=== PATIENT | male | born 1940 | race Two or more races ===

== ENCOUNTER 2019-06-13 19:34 | Emergency (ER) | payer MEDICARE, MEDICAID ==
[~2019-06-13] VITALS: Ht 172.7 cm; Wt 56.7 kg
[~2019-06-13 19:34] MED LIST: MULTIVITAMINS1 EAC2 PO; REVLIMID10 MG PO; TYLENOL500 MG PO; VITAMIN B-1100 MG PO
[2019-06-13 19:45] VITALS: BP 125/76
--- NOTE | 2019-06-13 20:01 | Emergency Room Report ---
History of Present Illness General Chief Complaint: Male Urogenital Problems Source: Medical Record, EMS (Corey Sherman MD) Present Illness HPI 79-year-old male presents ED for evaluation. Brought in by EMS for hematuria. Patient residing in prison facility. Hematuria noted today. Patient nonverbal at baseline. Nursing attempted irrigation of Howard catheter but patient continued to have hematuria. Patient showing no signs of distress. Unable to provide any additional history at this time. No other aggravating relieving factors. No other associated symptoms (Corey Sherman MD) Allergies: Coded Allergies: No Known Allergies (Unverified , 02/23/12) Patient History Past Medical History: DM, HTN Past Surgical History: none Pertinent Family History: none Social History: Denies: smoking, alcohol use, drug use Immunizations: UTD Reviewed Nursing Documentation: PMH: Agreed; PSxH: Agreed (Corey Sherman MD) Nursing Documentation-PMH Hx Cardiac Problems: No Hx Hypertension: Yes Hx Diabetes: Yes Hx Neurological Problems: No (Corey Sherman MD) Review of Systems All Other Systems: limited (Corey Sherman MD) Physical Exam Vital Signs Date Time Temp Pulse Resp B/P (MAP) Pulse Ox O2 Delivery O2 Flow Rate FiO2 06/13/19 19:32 97.5 75 18 125/76 (92) 97 Nasal Cannula 3.0 Sp02 EP Interpretation: reviewed, normal General Appearance: no apparent distress, other - nonverbal Head: normocephalic Eyes: bilateral eye normal inspection, bilateral eye PERRL ENT: hearing grossly normal, normal pharynx, no angioedema, normal voice Neck: full range of motion, supple/symm/no masses Respiratory: crackles Cardiovascular #1: regular rate, rhythm, no edema Gastrointestinal: normal bowel sounds, non tender, soft, non-distended, no guarding, no rebound, other - Gtube Rectal: deferred Genitourinary: no CVA tenderness, other - hematuria in howard catheter Musculoskeletal: other - contracted extremities Neurologic: other - nonverbal Psychiatric: other - nonverbal Skin: other - see nursing skin notes Lymphatic: normal inspection (Corey Sherman MD) Medical Decision Making Medicare Attestation The history of Dalton Almanzar has been reviewed and management options for him have been examined and discussed by Corey Sherman. I have personally examined and interviewed the patient. (Corey Sherman MD) Diagnostic Impression: Primary Impression: Hematuria Additional Impressions: Elevated LFTs Renal insufficiency UTI (urinary tract infection) ER Course I received a call from the laboratory that patient had growth of gram-positive cocci in clusters in both blood culture bottles, so I spoke to Dr. Martinez, patient's primary care doctor since patient is a resident at a prison facility, and he reported he would follow-up on it and likely send the patient in for admission. (KARINA PEREZ M.D) EKG Diagnostic Results Rate: normal Rhythm: NSR ST Segments: no acute changes ASA given to the pt in ED: No (Corey Sherman MD) Rhythm Strip Diag. Results EP Interpretation: yes Rhythm: NSR, no PVC's, no ectopy (Corey Sherman MD) Last Vital Signs Date Time Temp Pulse Resp B/P (MAP) Pulse Ox O2 Delivery O2 Flow Rate FiO2 06/13/19 19:32 97.5 75 18 125/76 (92) 97 Nasal Cannula 3.0 (Corey Sherman MD) Reevaluation Time: 22:04 Reevaluation Impression Assumed care of the patient from Dr. Sherman approximately 9:30 PM. Labs have now returned showing evidence of an acute urinary tract infection positive for nitrites, leukocyte esterase and blood. Howard was irrigated and is now only lightly pink and passed several clots. Irrigating well at this time. Labs show renal insufficiency, elevated LFTs but no white count. I discussed these results with the patient's primary care provider who recommended the patient be discharged home to his prison facility for outpatient treatment. I will prescribe Keflex for his urinary tract infection. Dr. Martinez will follow up with the patient on an outpatient basis. (Ron Arciniega MD) Disposition: XFER SNF Condition: Stable Scripts Cephalexin* (KEFLEX*) 500 Mg Capsule 500 MG ORAL EVERY 12 HOURS for 7 Days, #14 CAP 0 Refills Prov: Ron Arciniega MD 06/13/19 Corey Sherman MD Jun 13, 2019 20:01 Ron Arciniega MD Jun 13, 2019 22:05 KARINA PEREZ M.D Jun 15, 2019 11:51
[2019-06-13] MEDS ORDERED: COLACE100 MG ORAL (20:39)
[2019-06-13] MEDS ORDERED: KEPPRA750 MG ORAL (20:39)
[2019-06-13] MEDS ORDERED: FLEET ENEMA133 ML RECTAL (20:39)
[2019-06-13] MEDS ORDERED: BISACODYL5 MG ORAL (20:39)
[2019-06-13] MEDS ORDERED: MILK OF MA2400 MG/10 ORAL (20:39)
[2019-06-13] MEDS ORDERED: FAMOTIDINE20 MG ORAL (20:39)
[2019-06-13 20:43] LABS: ANION GAP 4 mmol/L (5-15); BLOOD UREA NITROGEN 69 mg/dL (7-18); CALCIUM 8.9 MG/DL (8.5-10.1); CARBON DIOXIDE 32 MMOL/L (21-32); CHLORIDE 106 MMOL/L (98-107); CREATININE 1.5 MG/DL (0.55-1.30); POTASSIUM 4.2 MMOL/L (3.5-5.1); SODIUM 142 MMOL/L (136-145)
[2019-06-13 20:51] LABS: BASOPHILS % (AUTO) 0.8 % (0.0-2.0); EOSINOPHILS % (AUTO) 6.6 % (0.0-3.0); HEMATOCRIT 31.1 % (42.0-52.0); HEMOGLOBIN 10.4 G/DL (14.2-18.0); MEAN CORPUSCULAR VOLUME 96 FL (80-99); MONOCYTES % (AUTO) 5.3 % (1.0-10.0); NEUTROPHILS % (AUTO) 70.3 % (45.0-75.0); PLATELET COUNT 127 K/UL (150-450); RED BLOOD COUNT 3.23 M/UL (4.70-6.10); RED CELL DISTRIBUTION WIDTH 16.1 % (11.6-14.8); WHITE BLOOD COUNT 5.4 K/UL (4.8-10.8)
[2019-06-13 20:52] LABS: APPEARANCE,URINE SLIGHTLY CLOUDY; BILIRUBIN, URINE NEGATIVE (NEGATIVE); GLUCOSE, URINE (UA) NEGATIVE (NEGATIVE); KETONES,URINE NEGATIVE (NEGATIVE); LEUKOCYTE ESTERASE ,URINE 2+ (NEGATIVE); NITRITE,URINE POSITIVE (NEGATIVE); PH,URINE 8 (4.5-8.0); PROTEIN,URINE 3+ (NEGATIVE); UROBILINOGEN,URINE 1 MG/DL (0.0-1.0)
[2019-06-13 20:53] LABS: COLOR,URINE BROWN
[2019-06-13 20:57] LABS: ALANINE AMINOTRANSFERASE 102 U/L (12-78); ALBUMIN 2.1 G/DL (3.4-5.0); ALBUMIN/GLOBULIN RATIO 0.3 (1.0-2.7); ALKALINE PHOSPHATASE 165 U/L (46-116); ASPARTATE AMINO TRANSFERASE 115 U/L (15-37); BILIRUBIN,TOTAL 0.3 MG/DL (0.2-1.0)
[2019-06-13 20:58] LABS: INR 1.2 (0.9-1.1)
[2019-06-13] MEDS ORDERED: cefTRIAXone 1 GM in NS 55 ML IVPB ONE (21:30)
[2019-06-13] MEDS ORDERED: CEPHALEXIN500 MG ORAL (22:08)
[2019-06-14] VITALS: BP 125/76
--- NOTE | 2019-06-14 15:11 | Diagnostic Imaging Report ---
Indication: Cough Technique: One view of the chest Comparison: 02/26/2012 Findings: The heart is enlarged. There is mild interstitial prominence and patchy airspace opacities bilaterally. The pleural spaces are grossly clear. Impression: Cardiomegaly Bilateral borderline interstitial congestion and patchy airspace opacities
--- NOTE | 2019-06-21 09:37 | Cardiology Report ---
APPROVED REPORT EKG Measurement Heart [id number] <Conclusion> Normal sinus rhythm Left axis deviation Low voltage QRS Incomplete right bundle branch block Nonspecific T wave abnormality Abnormal ECG
== END 2019-06-14 ==
LOC: EDBD 19:34 → EMR 19:50 → CANBEDREQ 22:02 → EMR 06-14
DX: R31.9 Hematuria, unspecified (principal); R79.89 Other specified abnormal findings of blood chemistry; N28.9 Disorder of kidney and ureter, unspecified; N39.0 Urinary tract infection, site not specified; E11.9 Type 2 diabetes mellitus without complications; I10 Essential (primary) hypertension
CPT/HCPCS: 36415; 71045; 80053; 81003; 83605; 83880; 85025; 85610; 85730; 86850; 86900; 86901; 87040; 87086; 87181; 93005; 96361; 96365; 99284; J0696; J7030

== ENCOUNTER 2019-11-09 06:23 | Inpatient (IN) | payer MEDICARE, MEDICAID ==
[2019-11-09] VITALS (43 sets, daily range): BP systolic 61–155; BP diastolic 20–88
[~2019-11-09] VITALS: Ht 162.6 cm; Wt 57.2 kg
[~2019-11-09 06:23] MED LIST changes: +ACETAMINOP160 MG/55 GT; +AMLODIPINE BESYL5 MG GT; +BISACODYL5 MG ORAL; +CEPHALEXIN500 MG ORAL; +COLACE100 MG ORAL; +CRANBERRY425 MG GT; +DOCUSATE SODIU100 MG GT; +FAMOTIDINE20 MG ORAL; +FLEET ENEMA133 ML RECTAL; +JUVEN PACKET1 EAC1 GT; +KEPPRA500 MG GT; +KEPPRA750 MG ORAL; +LEVOTHYROXINE125 MCG GT; +MILK OF MA2400 MG/10 ORAL; +MULTI-DELYN237 ML GT; +NOVOLOG100 UNIT/4 SQ; +VITAMIN C500 M1 GT
--- NOTE | 2019-11-09 06:25 | NUR ---
ED Nurse Note: PT NELLYA RA 28 FROM [facility] FOR ORAL TRAUMA. PER EMS, PT WAS ACTIVELY BLEEDING FROM MOUTH THAT WAS SUCTION EN ROUTE TO ED WITH UNKNOWN CC QUANTITY. PT IS TRACH/VENTED WITH HX SZ. TRAUMA TO TONGUE IS UNK IF CAUSED BY SZ ACTIVTY. RT AT BEDSIDE, ERMD AT BEDSIDE. PT IS GTUBE DEPENDENT, FLUSHED AND PATENT.
[2019-11-09] MEDS ORDERED: LORazepam Inj 2mg/ml 1ml IV ONE (06:30)
--- NOTE | 2019-11-09 06:30 | NUR ---
ED Nurse Note: REDNESS NOTED ON MID SACRAL REGION. NO PRESSURE INJURIES NOTED.
--- NOTE | 2019-11-09 06:38 | Emergency Room Report ---
History of Present Illness General Chief Complaint: General Complaint Present Illness HPI Disclaimer: Please note that this report is being documented using DRAGON technology. This can lead to erroneous entry secondary to incorrect interpretation by the dictating instrument. HPI: 79-year-old male history of tracheostomy dependence, bedbound, ventilator dependent, neck altered mental status, seizures and CVA presented for possible oral trauma. Patient apparently grinds his teeth and was noted to have some blood coming from the mouth. EMS was called. Patient is nonverbal and uncooperative on exam and unable to give any further history. Primary care doctor is Dr. Salcedo. It does not appear patient takes any blood thinners at this time. Allergies: Coded Allergies: No Known Allergies (Unverified , 02/23/12) COVID-19 Screening Contact w/high risk pt: No Recent Travel to affected area: No Experienced COVID-19 symptoms?: No COVID-19 symptoms experienced: Fever (T>100.4F or >38C), Shortness of Breath, Cough Patient History Reviewed Nursing Documentation: PMH: Agreed; PSxH: Agreed Nursing Documentation-PMH Hx Cardiac Problems: Yes - A-fib, CHF, sepsis Hx Diabetes: Yes Hx Cancer: No Hx Gastrointestinal Problems: Yes - G-tube, GERD, dysphagia Hx Neurological Problems: Yes - Muscle weakness Hx Cerebrovascular Accident: Yes Hx Seizures: Yes Review of Systems All Other Systems: limited - Due to baseline altered mental status Physical Exam Vital Signs Date Time Temp Pulse Resp B/P (MAP) Pulse Ox O2 Delivery O2 Flow Rate FiO2 11/09/19 06:20 110 18 102/70 (81) 99 Mechanical Ventilator Sp02 EP Interpretation: reviewed, normal General Appearance: no apparent distress, Chronically Ill Head: normocephalic, atraumatic Eyes: bilateral eye PERRL, bilateral eye EOMI ENT: hearing grossly normal, other - Blood clots noted in the mouth, 1 cm laceration noted to the tip of the tongue, with active bleeding, poor dentition with dental caries noted. Neck: full range of motion, supple Respiratory: lungs clear, no wheezing, chest symmetrical - Coarse breath sounds noted bilaterally Cardiovascular #1: normal peripheral pulses, no murmur, tachycardia Gastrointestinal: non tender, soft, no guarding, other - Gastrostomy tube present Musculoskeletal: other - Extremities contracted Neurologic: alert, other - Nonverbal at baseline, withdraws to pain Skin: normal color, warm/dry Procedures Critical Care Time Critical Care Time Critical care is made on this patient due to presentation with concern for sepsis requiring my acute intervention. Critical care time is 38 minutes and excludes procedures Laceration/Wound Repair Laceration/Wound Repair : Consent: Emergent Wound Location: other - Tongue Anesthesia: 1% Lidocaine Wound Repaired With: sutures Suture Size/Type: 4:0 Patient Tolerated: Well Complications: None Progress This was a 1 cm laceration to the tongue tip Central Line Central Line : Consent: Emergent Central Line Lumen: triple Maximal Sterile Barrier Tech: yes cap, yes mask, yes sterile gown, yes sterile gloves, yes large sterile sheet, yes hand hygiene, yes chlorhexidine prep Central Line Postion: internal jugular (L) Anesthesia: local cc's of anesthesia: 3 Complications: none Central Line Post Position: sutured, good blood return, position confirmed w / CXR Attempts: One Patient Tolerated: Well Complications: None Medical Decision Making Diagnostic Impression: Primary Impression: Sepsis Additional Impressions: Tongue laceration Chronic respiratory failure Acute on chronic anemia ER Course MDM: Patient presented for blood noted in the mouth and oral trauma. Initially my differential included dental trauma, tongue laceration, other oral trauma. I did send basic laboratory studies and patient was noted to have leukocytosis of 35,000. Last month for pneumonia. Chest x-ray today did demonstrate persistent left middle lobe infiltrate. Rectal temperature was 100.2. Tongue laceration was repaired by me. Hemoglobin 7.2, patient's baseline hemoglobin ranged from 7-9. Broad-spectrum antibiotics were given. IV fluids were given. Due to patient's presentation with leukocytosis, anemia, concern for pneumonia will require admission to the hospital. Patient admitted under his primary care physician. I did send virus testing as [facility] with multiple risk factors for coronavirus. Laboratory Tests Test 11/09/19 06:30 11/09/19 06:34 Lactic Acid Level 0.90 mmol/L (0.4-2.0) White Blood Count 34.9 K/UL (4.8-10.8) *H Red Blood Count 2.27 M/UL (4.70-6.10) L Hemoglobin 7.2 G/DL (14.2-18.0) L Hematocrit 21.1 % (42.0-52.0) L Mean Corpuscular Volume 93 FL (80-99) Mean Corpuscular Hemoglobin 31.8 PG (27.0-31.0) H Mean Corpuscular Hemoglobin Concent 34.4 G/DL (32.0-36.0) Red Cell Distribution Width 14.0 % (11.6-14.8) Platelet Count 350 K/UL (150-450) Mean Platelet Volume 5.1 FL (6.5-10.1) L Neutrophils (%) (Auto) % (45.0-75.0) Lymphocytes (%) (Auto) % (20.0-45.0) Monocytes (%) (Auto) % (1.0-10.0) Eosinophils (%) (Auto) % (0.0-3.0) Basophils (%) (Auto) % (0.0-2.0) Differential Total Cells Counted 100 Neutrophils % (Manual) 95 % (45-75) H Lymphocytes % (Manual) 2 % (20-45) L Monocytes % (Manual) 2 % (1-10) Eosinophils % (Manual) 1 % (0-3) Basophils % (Manual) 0 % (0-2) Band Neutrophils 0 % (0-8) Platelet Estimate Adequate Platelet Morphology Normal Red Blood Cell Morphology Normal Prothrombin Time 12.1 SEC (9.30-11.50) H Prothrombin Time INR 1.1 (0.9-1.1) Activated Partial Thromboplast Time 33 SEC (23-33) Sodium Level 143 MMOL/L (136-145) Potassium Level 5.1 MMOL/L (3.5-5.1) Chloride Level 109 MMOL/L (98-107) H Carbon Dioxide Level 23 MMOL/L (21-32) Anion Gap 11 mmol/L (5-15) Blood Urea Nitrogen 128 mg/dL (7-18) H Creatinine 3.0 MG/DL (0.55-1.30) H Estimated Glomerular Filtration Rate 20.4 mL/min (>60) Glucose Level 138 MG/DL (74-106) H Calcium Level 8.6 MG/DL (8.5-10.1) Total Bilirubin 0.2 MG/DL (0.2-1.0) Aspartate Amino Transferase (AST) 26 U/L (15-37) Alanine Aminotransferase (ALT) 26 U/L (12-78) Alkaline Phosphatase 90 U/L (46-116) Total Protein 8.2 G/DL (6.4-8.2) Albumin 1.6 G/DL (3.4-5.0) L Globulin 6.6 g/dL Albumin/Globulin Ratio 0.2 (1.0-2.7) L Rhythm Strip Diag. Results EP Interpretation: yes Rate: 95 Rhythm: NSR, no ectopy Chest X-Ray Diagnostic Results Chest X-Ray Diagnostic Results : Chest X-Ray Ordered: Yes # of Views/Limited/Complete: 1 View Indication: Shortness of Breath Interpretation: no pneumothorax, other - Left middle lobe infiltrate Impression: Other - Left middle lobe infiltrate Electronically Signed by: Brett Perez MD Last Vital Signs Date Time Temp Pulse Resp B/P (MAP) Pulse Ox O2 Delivery O2 Flow Rate FiO2 11/09/19 06:20 110 18 102/70 (81) 99 Mechanical Ventilator Status: improved Disposition: ADMITTED INPATIENT Condition: Critical Brett Perez M.D. November 09, 2019 06:38
--- NOTE | 2019-11-09 06:40 | NUR ---
ED Nurse Note: DR ABBASI PERFORMING TONGUE SUTURE AT BEDSIDE. RT ALSO AT BEDSIDE FOR SUCTIONING AND VENT SETTING
--- NOTE | 2019-11-09 06:45 | NUR ---
ED Nurse Note: BLOOD COLLECTED AND SENT TO LAB. UNABLE TO OBTAIN URINE AT THIS TIME
[2019-11-09] MEDS ORDERED: Acetaminophen 650mg/20.3ml ONE (06:54)
[2019-11-09] MEDS ORDERED: Acetaminophen 650mg/20.3ml NG ONE (07:00)
--- NOTE | 2019-11-09 07:00 | NUR ---
ED Nurse Note: XR AT BEDSIDE
[2019-11-09 07:05] LABS: ANION GAP 11 mmol/L (5-15); BLOOD UREA NITROGEN 128 mg/dL (7-18); CALCIUM 8.6 MG/DL (8.5-10.1); CARBON DIOXIDE 23 MMOL/L (21-32); CHLORIDE 109 MMOL/L (98-107); POTASSIUM 5.1 MMOL/L (3.5-5.1); SODIUM 143 MMOL/L (136-145)
--- NOTE | 2019-11-09 07:05 | NUR ---
ED Nurse Note: GAVE REPORT TO YOSELIN OLSON RN
[2019-11-09 07:09] LABS: ALANINE AMINOTRANSFERASE 26 U/L (12-78); ALBUMIN 1.6 G/DL (3.4-5.0); ALBUMIN/GLOBULIN RATIO 0.2 (1.0-2.7); ALKALINE PHOSPHATASE 90 U/L (46-116); ASPARTATE AMINO TRANSFERASE 26 U/L (15-37); BILIRUBIN,TOTAL 0.2 MG/DL (0.2-1.0)
[2019-11-09 07:15] LABS: HEMATOCRIT 21.1 % (42.0-52.0); HEMOGLOBIN 7.2 G/DL (14.2-18.0); MEAN CORPUSCULAR VOLUME 93 FL (80-99); PLATELET COUNT 350 K/UL (150-450); RED BLOOD COUNT 2.27 M/UL (4.70-6.10)
[2019-11-09 07:16] LABS: INR 1.1 (0.9-1.1)
[2019-11-09 07:19] LABS: WHITE BLOOD COUNT 34.9 K/UL (4.8-10.8)
--- NOTE | 2019-11-09 07:27 | NUR ---
ED Nurse Note: Received verbal order for covid swabs from Dr. Perez.
[2019-11-09] MEDS ORDERED: Vancomycin 1 GM in NS 275 ML IVPB ONE (07:30)
[2019-11-09] MEDS ORDERED: Lidocaine 1% Plain 30 ml INJ ONE (07:30)
[2019-11-09] MEDS ORDERED: Piperacillin/Tazobactam 3.375 GM in NS 110 ML IVPB ONE (07:30)
--- NOTE | 2019-11-09 07:37 | Diagnostic Imaging Report ---
Indication: Shortness of breath Technique: One view of the chest Comparison: 10/17/2019 Findings: Again demonstrated is left perihilar consolidation, appearing less severe than on the prior study. Peripheral hazy consolidation on the right is also somewhat less extensive than on the previous exam. Tracheostomy again demonstrated Impression: Bilateral infiltrates, left greater than right. Similar in distribution but less severe than on prior study of 10/17/2019. Likely represent pneumonia
--- NOTE | 2019-11-09 07:52 | NUR ---
ED Nurse Note: Margonurse, there's no polst made
--- NOTE | 2019-11-09 07:57 | NUR ---
RESPIRATORY NOTE: pt brought in to ER and set up on vent at 0620. pt is vent dependent with trach size cuffed portex [address] per EMS vent settings given were AC/VC 18 450 PEEP+8 and set on fio2 100%. sxn'd pt orally with copious amounts of thick blood clots. ER MD and RN aware of findings. tracheal sxn with small to moderate amount of thick blood-tinged secretions. will monitor for the day.
--- NOTE | 2019-11-09 08:30 | NUR ---
ED Nurse Note: Unable to obtain urine as of now; condom cath in placed.
--- NOTE | 2019-11-09 09:15 | NUR ---
ED Nurse Note: Radiology techs at bedside.
--- NOTE | 2019-11-09 09:37 | NUR ---
ED Nurse Note: Dr. Hair at bedside.
--- NOTE | 2019-11-09 10:15 | NUR ---
ED Nurse Note: Per ERMD, central line and vasopressors not needed right now. Latest BP: 85/53 on RT calf; fluids running on both RT and LT upper arm IV site, intact and patent. Report for transfer to ICU was given to Zoraida BLUNT, pt will be under the care of Dr. Martinez. Pt was transferred to ICU on stable condition.
[2019-11-09] MEDS ORDERED: Hydroxychloroquine Fact Sheet MISC ONE (11:00)
[2019-11-09] MEDS ORDERED: Lidocaine 1% 10mg/ml/Epi 0.005mg/ml 30ml vial INJ ONE (11:22)
--- NOTE | 2019-11-09 11:45 | NUR ---
NURSE NOTES: Upon arrival from the ER, Pt's B/P was 84/23. ER doc called to put in central line in order to start Levophed. Lt IJ TLC placed at this time. Dressing clean, dry, and intact. No excess bleeding noted. Pt tolerated well. Pharmacy called for Levophed bag. however, telegraphic typewriter mechanic was told it is not ready.
--- NOTE | 2019-11-09 12:15 | NUR ---
NURSE NOTES: Sputum collected for culture. Levophed running at 10mcg/min
[2019-11-09] MEDS ORDERED: Vancomycin 1.25gm/NS Premix IVPB ONE (13:00)
--- NOTE | 2019-11-09 13:40 | NUR ---
NURSE NOTES: Dr Gong at bedside assessing pt. Updated him on pt's current condition. New orders acknowledged. Pt is more stable on the Levophed at this time.
--- NOTE | 2019-11-09 13:51 | NUR ---
CASE MANAGEMENT: REVIEW 79 YEAR OLD MALE BIBA [facility] CC: SOB . BLEEDING FROM THE MOUTH AFTER ORAL SUCTIONING . TRACH DEPENDENT SI: SEPSIS . TONGUE LACERATION . ANEMIA T 100.5 HR 118 RR 33 BP 61/52 SAT 100% MECH VENT FIO2 100 WBC 34.9 H/H 7.2/21.1 BUN 128 CR 3.0 IS: VANCOMYCIN IV X1 NS IVF BOLUS X1 ATIVAN IV X1 ZOSYN IV X1 PATIENT ADMITTED TO ICU 11/09/2019 DCP: PATIENT IS FROM [facility]
[2019-11-09] MEDS: Piperacillin/Tazobactam 2.25 GM in D5W 55 ML IVPB SCH ×2 (14:02→21:32)
--- NOTE | 2019-11-09 15:00 | NUR ---
NURSE NOTES: FiO2 decreased to 50% at this time. Pt O2Sat 100%
--- NOTE | 2019-11-09 16:14 | Consultation ---
DATE OF CONSULTATION: 11/09/2019 PULMONARY CONSULTATION CONSULTING PHYSICIAN: Mansoor Martinez MD. REASON FOR CONSULTATION: Respiratory failure. REASON FOR ADMISSION: Sepsis, oral bleeding, profound leukocytosis, acute on chronic renal failure. HISTORY OF PRESENT ILLNESS: This is a 79-year-old male with multiple medical problems, noted to have significant oral bleeding, transferred by 911. Patient with noted significant leukocytosis, anemia, renal failure acute on chronic, severe protein-calorie malnutrition, and now requires admission. Patient noted to be tachycardic and hypertensive in the emergency room, awaiting an ICU bed. Patient's care discussed and reviewed. Patient given antibiotics. COVID swab was placed. Patient was given vancomycin and Zosyn for now. IV hydration given as well. Patient is critical at present, unable to give much in the way of history. Patient is a long-term patient. Patient is chronically bed-bound, contracted, ventilator dependent. Patient has multitude of medical problems and has had prior admissions. PAST MEDICAL HISTORY: Notable for prior history of renal failure, respiratory failure chronic, prior history of pneumonia, pericardial effusion, history of hypothyroidism, history of diabetes, seizure disorder, severe protein-calorie malnutrition, tracheostomy, G-tube, anemia. MEDICATIONS: Reviewed. ALLERGIES: Reviewed. SOCIAL HISTORY: Patient is a long-term patient as mentioned, nonverbal, bedbound. REVIEW OF SYSTEMS: Unobtainable. FAMILY HISTORY: Unobtainable. PHYSICAL EXAMINATION: GENERAL: Ill-appearing male. VITAL SIGNS: Heart rate 118, temperature 100.5, respiratory rate 33, blood pressure 87/68, saturation 99%. HEENT: Negative. NECK: Supple. Tracheostomy midline. LUNGS: With coarse breath sounds. Moderate air entry. CARDIAC: Tachycardic without murmurs. ABDOMEN: Soft. G-tube in place. No distention. EXTREMITIES: Contracted. Reduced skin turgor. NEUROLOGICAL: Poorly responsive, in pain. SKIN: Noted with wounds reviewed. LABORATORY DATA: Reviewed. Notable for albumin 1.6, BUN 128, creatinine 3. Patient's white cell count is 34.9, hemoglobin 7.2, platelets of 350. INR within normal. Chest x-ray noted and reviewed notable for tracheostomy in place, bilateral infiltrates. IMPRESSION: Leukocytosis, sepsis, pneumonia, possible COVID, respiratory failure, profound anemia, acute on chronic renal failure, multiple contractures and wounds, severe protein-calorie malnutrition. RECOMMENDATION: ID to follow. Empiric antibiotics. IV hydration. Renal to follow. Ventilatory support. Suction. Sputum culture and blood cultures. Ventilatory management and ICU care required. Pressors if needed. Monitor closely for further changes. Avoid anticoagulation and anti-platelet agents at present. Monitor thyroid functions and monitor in the critical care setting. Mansoor Martinez M.D. DR: COREY JOB#: [id number] CC:
--- NOTE | 2019-11-09 16:29 | Consultation ---
DATE OF CONSULTATION: 11/09/2019 INFECTIOUS DISEASES CONSULTATION CONSULTING PHYSICIAN: Isaak Hair M.D. REFERRING PHYSICIAN: Mansoor Martinez M.D. REASON FOR CONSULTATION: Rule out COVID-19 pneumonia. HISTORY OF PRESENT ILLNESS: This is a 79-year-old gentleman with history of respiratory failure status post tracheostomy, seizures, CVA, and possible oral trauma who came in with some blood coming from his mouth. He was also found to have fevers. He also has cough and shortness of breath. An Infectious Diseases consultation has been obtained for antibiotics. PAST MEDICAL HISTORY: 1. History of respiratory failure, status post tracheostomy. 2. Seizures. 3. CVA. 4. Diabetes. 5. Atrial fibrillation. 6. Congestive heart failure. 7. Status post G-tube placement. 8. GERD. SOCIAL HISTORY: Unknown. FAMILY HISTORY: Unknown. REVIEW OF SYSTEMS: Unable to obtain currently. PHYSICAL EXAMINATION: In the ER, he received IV vancomycin, Zosyn, Tylenol, lorazepam. ALLERGIES: No known drug allergies. PHYSICAL EXAMINATION: VITAL SIGNS: Temperature of 100.5, T-max of 100.5, pulse of 94, respiratory rate 24, blood pressure 85/49, O2 saturation of 99%. He is on a ventilator with FiO2 of 60%, PEEP 8. Examination deferred due to possibility of COVID-19 LABORATORY AND DIAGNOSTIC DATA: White count 34.9, hemoglobin 7.2, hematocrit 21.1, MCV 93, platelet count 350. Sodium 143, potassium 5.1, chloride 109, bicarb 23, BUN 128, creatinine 3, glucose 138, calcium 8.6. Total bilirubin 0.2, AST 26, ALT 26, alkaline phosphatase 90. Total protein 8.2, albumin 1.6. Blood cultures have been ordered. COVID-19 swab is pending. Chest x-ray showing bilateral infiltrates, left greater than the right. ASSESSMENT: This is a 79-year-old gentleman with history of diabetes, CVA, seizures, atrial fibrillation, congestive heart failure, who came in with fever, cough, and shortness of breath, would like to rule out. 1. COVID-19 pneumonia as a possibility. 2. Respiratory failure. 3. Seizures. 4. CVA. PLAN: 1. Continue IV vancomycin and Zosyn. 2. We will order sputum for Gram stain and culture. 3. We will follow up COVID-19 swab results. 4. We will start the patient on hydroxychloroquine. 5. We will follow up cultures. I would like to thank, Dr. Martinez for this consultation. Eliakuntmaurice Hair M.D. DR: Nataly JOB#: [id number] CC: Mansoor Martinez M.D.; Fax#: [phone]
--- NOTE | 2019-11-09 17:00 | NUR ---
NURSE NOTES: FiO2 decreased to 40% at this time. Pt O2Sat 100%
--- NOTE | 2019-11-09 18:45 | NUR ---
NURSE NOTES: EKG done at this time, as requested by pharmacy in order to administer Plaquenil. Side rails padded for seizure precautions.
[2019-11-09 19:02] LABS: APPEARANCE,URINE SLIGHTLY CLOUDY; BILIRUBIN, URINE NEGATIVE (NEGATIVE); COLOR,URINE PALE YELLOW; GLUCOSE, URINE (UA) NEGATIVE (NEGATIVE); KETONES,URINE NEGATIVE (NEGATIVE); LEUKOCYTE ESTERASE ,URINE 2+ (NEGATIVE); NITRITE,URINE NEGATIVE (NEGATIVE); PH,URINE 5 (4.5-8.0); PROTEIN,URINE 2+ (NEGATIVE); UROBILINOGEN,URINE NORMAL MG/DL (0.0-1.0)
--- NOTE | 2019-11-09 19:13 | NUR ---
RESPIRATORY NOTE: Received pt on AC 18, 450VT, 40%, PEEP +8. Pt is trach-dependent w/ a cuffed, Portex 8 tube. Pt obtunded. B/S kylee. rhonchi, sxn minimal amounts of thick, brown secretions w/ occasional clots. Vent plugged into red outlet, ambubag at bedside. Pt in no apparent distress at this time. Will continue to monitor pt.
--- NOTE | 2019-11-09 19:32 | NUR ---
HAND-OFF: Report given to MERLENE Meyer.
--- NOTE | 2019-11-09 19:45 | NUR ---
NURSE NOTES: LE: PATIENT ASLEEP STATUS, ON TRACH TO VENT AC18/TV450/FIO2 40%/PEEP8, O2 SATURATION 100% NOTED, HR 80'S/MIN SR, G TUBE INTACT AND PATENT, NPO STATUS, CONDOM CATHETER, YELLOW URINE OUTED, TLC TO LEFT IJ AND PPL TO BOTH HANDS AND UA, INTACT AND PATENT, ONGOING LEVOPHED 14MCG/MIN AND IV FLUID NS AT 175ML/HR VIA TLC, ON P200 BED, LOWER BED POSITION, ON BED ALARM AND LOCKED, KEPT SZ AND FALL PRECAUTION, WILL CONTINUE TO MONITOR.
[2019-11-09] MEDS: levETIRAcetam 500mg/5ml Liquid NG SCH (20:33)
[2019-11-09] MEDS: Dyna-Hex 2% Top Sol 2oz TOPIC SCH (20:33)
[2019-11-09] MEDS: Heparin 5000 units/ml inj SUBQ SCH (20:35)
--- NOTE | 2019-11-09 21:13 | NUR ---
NURSE NOTES: ONGOING LEVOPHED 10MCG/MIN AT THIS TIME, WILL CONTINUE TO MONITOR.
--- NOTE | 2019-11-09 23:24 | NUR ---
NURSE NOTES: PATIENT ASLEEP STATUS, NO PAIN OR SOB NOTED, VSS WITH LEVOPHED 8MCG/MIN AT THIS TIME.
[2019-11-10] VITALS (52 sets, daily range): BP systolic 89–145; BP diastolic 53–85
--- NOTE | 2019-11-10 01:28 | NUR ---
NURSE NOTES: NO RESPONSE TO NAME, ONGOING LEVOPHED 6MCG/MIN AND IV FLUID NS AT 175ML/HR VIA TLC, WILL CONTINUE PLAN OF CARE.
--- NOTE | 2019-11-10 04:05 | NUR ---
NURSE NOTES: MORNING CARE AND ORAL CRE WAS DONE, NO BM STATUS.
[2019-11-10 05:20] LABS: HEMATOCRIT 18.8 % (42.0-52.0); MEAN CORPUSCULAR VOLUME 95 FL (80-99); PLATELET COUNT 309 K/UL (150-450); RED BLOOD COUNT 1.98 M/UL (4.70-6.10); RED CELL DISTRIBUTION WIDTH 14.5 % (11.6-14.8)
[2019-11-10 05:34] LABS: HEMOGLOBIN 6.3 G/DL (14.2-18.0); WHITE BLOOD COUNT 22.6 K/UL (4.8-10.8)
[2019-11-10] MEDS: Piperacillin/Tazobactam 2.25 GM in D5W 55 ML IVPB SCH (05:38)
[2019-11-10 05:51] LABS: ANION GAP 13 mmol/L (5-15); BLOOD UREA NITROGEN 103 mg/dL (7-18); CALCIUM 8.4 MG/DL (8.5-10.1); CARBON DIOXIDE 19 MMOL/L (21-32); CHLORIDE 116 MMOL/L (98-107); CREATININE 2.5 MG/DL (0.55-1.30); POTASSIUM 4.1 MMOL/L (3.5-5.1); SODIUM 148 MMOL/L (136-145)
--- NOTE | 2019-11-10 06:10 | NUR ---
NURSE NOTES: NO BLEEDING FROM MOUTH, NO ACUTE DISTRESS NOTED AT THIS SHIFT.
--- NOTE | 2019-11-10 07:18 | NUR ---
HAND-OFF: Report given to MERLENE MARTÍNEZ.
--- NOTE | 2019-11-10 07:20 | NUR ---
NURSE NOTES: Report received from MERLENE Meyer. Pt observed laying in bed with his eyes closed, sleeping. Pt is nonverbal. Pt is trach to vent, Prtex 8 with settings AC 18, TV 450, PEEP 8, FiO2 40%. Pt has a Gtube, currently clamped. Condom cath noted, draining yellow urine to urometer. Lt IJ TLC running Levophed 6mcg/min and NS @ 175mL/hr. PIV's noted and saline locked; Lt upper arm #20g, Lt hand #22g, Rt upper arm #20g. Pt has a bite block in place d/t tongue laceration. Hgb this morning is 6.3, Dr Martinez notified on previous shift. Will obtain consent and transfuse 2 units PRBC. Bed locked and in lowest position, with call light within reach. Will resume plan of care.
--- NOTE | 2019-11-10 08:41 | NUR ---
RD ASSESSMENT & RECOMMENDATIONS SEE CARE ACTIVITY FOR COMPLETE ASSESSMENT DAILY ESTIMATED NEEDS: Needs based on Critical care, sepsis 52.3kg 25-30 kcals/kg [id number] total kcals 1.25-2 g protein/kg 65-105 g total protein 25-30 mL/kg [id number] total fluid mLs NUTRITION DIAGNOSIS: Swallowing difficulty r/ respiratory status as evidenced by pt is vent dep via trach, PEG dep. ENTERAL NUTRITION RECOMMENDATIONS: Vital 1.2 @55ml/hr x22 hrs (pt on synthroid) to provide 1210ml, 1452 kcal, 91g pro, 981ml free H2O - As medically able, rec to start Isabela 1.2 for critical care @15ml/hr for 6 hrs. Advance as tolerated 10ml/hr q4-6 hrs to goal. - HOLD TF 1 hr before and after synthroid meds - Flush per , HOB over 30 degrees With increased pressor support, rec trophic feeds of 5-10ml/hr to maintain gut integrity. ADDITIONAL RECOMMENDATIONS: 1) Feed at goal w/ hemodynamic stability 2) SNF wt 115 lbs/ 52.27kg (11/02/19) 3) Wound care: when tolerating TF at goal, add WILIAM BID 4) Monitor renal labs and need for renal TF formula
[2019-11-10] MEDS: Docusate 100mg/10ml Liq NG SCH ×2 (08:58→17:10)
[2019-11-10] MEDS: levETIRAcetam 500mg/5ml Liquid NG SCH ×2 (08:58→20:21)
[2019-11-10] MEDS: Ascorbic Acid 500mg tab ORAL SCH (08:58)
[2019-11-10] MEDS: Pantoprazole Inj IVP SCH (08:58)
[2019-11-10] MEDS: Multivitamins W/Minerals 15 ML UDC GT SCH (08:58)
[2019-11-10] MEDS: Heparin 5000 units/ml inj SUBQ SCH ×2 (08:59→20:22)
--- NOTE | 2019-11-10 09:11 | NUR ---
RADIOLOGY DEPT., CHEST X-RAY DONE.-P.DYE
--- NOTE | 2019-11-10 09:26 | NUR ---
NURSE NOTES: Pt not able to follow commands. Pt's condom catheter changed due to leaking. Oral care done. AM medication administered as scheduled. No distress noted at this time.
[2019-11-10] MEDS ORDERED: Sodium Bicarbonate 50ml Carp IV SCH (09:33)
--- NOTE | 2019-11-10 09:34 | Critical Care Progress Note ---
Assessment/Plan Assessment/Plan IMPRESSION: Leukocytosis, sepsis, pneumonia, possible COVID, respiratory failure, profound anemia, acute on chronic renal failure, multiple contractures and wounds, severe protein-calorie malnutrition. acidemia PLAN vent support hypervent transfuse bicarb infusion iv antibotics check cultures off load monitor PH nutrition ICU care medications/laboratory data/nursing notes/ICU care reviewed in detail note reviewed and edited care discussed with RN and RT ICU time spent >40 minutes Critical Care - Subjective Interval Events: acidemia septic anemic MOF ROS Limited/Unobtainable: Yes Condition: critical EKG Rhythm: Sinus Rhythm Residuals: minimal Tube Feeding Tolerated: yes I&O: Intake and Output 11/09/19 11/10/19 19:00 07:00 Intake Total 1688.875 ml 2772.8 ml Output Total 950 ml Balance 1688.875 ml 1822.8 ml IV Total 1688.875 ml 2572.8 ml Other 200 ml Output Urine Total 950 ml # Voids 200 # Bowel Movements 3 Critical Care - Objective Last 24 Hour Vital Signs Date Time Temp Pulse Resp B/P (MAP) Pulse Ox O2 Delivery O2 Flow Rate FiO2 11/10/19 08:59 85 115/61 11/10/19 08:00 40 11/10/19 07:28 85 31 40 11/10/19 07:00 115/61 11/10/19 07:00 86 31 115/64 (81) 100 11/10/19 06:30 86 14 11/10/19 06:30 84 28 111/65 (80) 100 11/10/19 06:15 81 26 102/61 (75) 98 11/10/19 06:15 92/53 11/10/19 06:00 79 25 92/53 (66) 100 11/10/19 06:00 92/53 11/10/19 05:45 79 26 96/53 (67) 100 11/10/19 05:30 82 26 93/53 (66) 100 11/10/19 05:15 84 29 92/59 (70) 100 11/10/19 05:00 80 26 89/54 (66) 100 11/10/19 05:00 89/54 11/10/19 04:30 83 27 96/62 (73) 100 11/10/19 04:00 88 11/10/19 04:00 97.7 88 40 114/68 (83) 99 11/10/19 04:00 118/68 11/10/19 04:00 Mechanical Ventilator 11/10/19 04:00 40 11/10/19 03:30 99 32 104/63 (77) 98 11/10/19 03:19 98 32 40 11/10/19 03:00 97 25 132/74 (93) 98 11/10/19 03:00 132/74 11/10/19 02:30 91 28 124/80 (95) 99 11/10/19 02:00 85 37 118/73 (88) 100 11/10/19 02:00 118/73 11/10/19 01:30 82 23 114/65 (81) 100 11/10/19 01:15 110/62 11/10/19 01:00 75 25 91/54 (66) 100 11/10/19 01:00 91/54 11/10/19 00:30 78 26 103/61 (75) 100 11/10/19 00:00 79 11/10/19 00:00 99.1 79 26 108/63 (78) 100 11/10/19 00:00 Mechanical Ventilator 11/10/19 00:00 108/63 11/10/19 00:00 40 11/09/19 23:30 79 27 96/63 (74) 100 11/09/19 23:00 120/64 11/09/19 23:00 87 28 120/64 (82) 100 11/09/19 22:47 88 29 40 11/09/19 22:30 90 30 129/78 (95) 99 11/09/19 22:00 134/71 11/09/19 22:00 88 25 134/71 (92) 100 11/09/19 21:48 130/90 11/09/19 21:30 88 26 136/76 (96) 100 11/09/19 21:15 88 28 143/75 (97) 100 11/09/19 21:00 137/80 11/09/19 21:00 85 35 137/80 (99) 100 11/09/19 20:50 87 34 135/82 (99) 99 11/09/19 20:50 135/82 11/09/19 20:45 98.8 83 25 118/55 (76) 99 11/09/19 20:45 118/55 5/12/20 20:30 82 27 133/57 (82) 100 11/09/19 20:15 78 27 128/41 (70) 99 11/09/19 20:00 139/60 11/09/19 20:00 80 28 139/60 (86) 99 11/09/19 20:00 Mechanical Ventilator 11/09/19 20:00 40 11/09/19 19:45 78 22 129/43 (71) 100 11/09/19 19:30 80 11/09/19 19:30 78 29 121/54 (76) 99 11/09/19 19:11 78 29 40 11/09/19 19:00 118/29 11/09/19 19:00 79 26 118/29 (58) 99 11/09/19 18:30 80 25 124/64 (84) 100 11/09/19 18:15 80 24 120/34 (62) 100 11/09/19 18:00 117/30 11/09/19 18:00 84 28 117/30 (59) 100 11/09/19 17:30 88 28 101/27 (51) 100 11/09/19 17:20 81 27 40 11/09/19 17:00 40 11/09/19 17:00 117/68 11/09/19 17:00 98.1 84 30 117/68 (84) 100 11/09/19 16:55 126/41 11/09/19 16:30 89 32 137/44 (75) 100 11/09/19 16:00 89 11/09/19 16:00 120/46 11/09/19 16:00 78 25 120/46 (70) 100 11/09/19 16:00 Mechanical Ventilator 11/09/19 15:30 79 25 120/63 (82) 100 11/09/19 15:01 80 28 50 11/09/19 15:00 81 24 109/88 (95) 100 11/09/19 15:00 109/88 11/09/19 15:00 50 11/09/19 14:45 77 25 124/37 (66) 100 11/09/19 14:30 78 25 117/37 (63) 100 11/09/19 14:00 76 25 106/34 (58) 100 11/09/19 14:00 111/39 11/09/19 13:30 78 25 106/34 (58) 100 11/09/19 13:15 77 25 121/37 (65) 100 11/09/19 13:08 78 23 100/37 (58) 100 11/09/19 13:00 78 23 61/52 (55) 100 11/09/19 13:00 100/37 11/09/19 12:45 78 23 116/38 (64) 100 11/09/19 12:30 78 22 114/29 (57) 100 11/09/19 12:15 72 21 155/64 (94) 100 11/09/19 12:04 79/20 11/09/19 12:00 80 11/09/19 12:00 97.0 78 22 79/20 (39) 100 11/09/19 12:00 Mechanical Ventilator 11/09/19 11:46 79 26 75/25 (42) 100 11/09/19 11:14 92 31 100 Mechanical Ventilator 60 11/09/19 11:10 92 31 60 11/09/19 11:00 85 25 75/34 (48) 100 11/09/19 10:54 88 21 86/61 (69) 100 11/09/19 10:38 97.3 88 21 86/29 (48) 100 11/09/19 10:30 60 11/09/19 10:30 Mechanical Ventilator 11/09/19 10:15 100.5 94 24 85/53 99 Mechanical Ventilator 100 11/09/19 09:34 100.5 94 24 85/49 99 Mechanical Ventilator 100 Labs: Labs Test 11/09/19 06:30 11/09/19 06:34 11/09/19 18:20 11/10/19 04:25 Lactic Acid Level 0.90 mmol/L (0.4-2.0) White Blood Count 34.9 K/UL (4.8-10.8) 22.6 K/UL (4.8-10.8) Red Blood Count 2.27 M/UL (4.70-6.10) 1.98 M/UL (4.70-6.10) Hemoglobin 7.2 G/DL (14.2-18.0) 6.3 G/DL (14.2-18.0) Hematocrit 21.1 % (42.0-52.0) 18.8 % (42.0-52.0) Mean Corpuscular Volume 93 FL (80-99) 95 FL (80-99) Mean Corpuscular Hemoglobin 31.8 PG (27.0-31.0) 31.5 PG (27.0-31.0) Mean Corpuscular Hemoglobin Concent 34.4 G/DL (32.0-36.0) 33.2 G/DL (32.0-36.0) Red Cell Distribution Width 14.0 % (11.6-14.8) 14.5 % (11.6-14.8) Platelet Count 350 K/UL (150-450) 309 K/UL (150-450) Mean Platelet Volume 5.1 FL (6.5-10.1) 4.9 FL (6.5-10.1) Neutrophils (%) (Auto) % (45.0-75.0) % (45.0-75.0) Lymphocytes (%) (Auto) % (20.0-45.0) % (20.0-45.0) Monocytes (%) (Auto) % (1.0-10.0) % (1.0-10.0) Eosinophils (%) (Auto) % (0.0-3.0) % (0.0-3.0) Basophils (%) (Auto) % (0.0-2.0) % (0.0-2.0) Differential Total Cells Counted 100 100 Neutrophils % (Manual) 95 % (45-75) 85 % (45-75) Lymphocytes % (Manual) 2 % (20-45) 10 % (20-45) Monocytes % (Manual) 2 % (1-10) 5 % (1-10) Eosinophils % (Manual) 1 % (0-3) 0 % (0-3) Basophils % (Manual) 0 % (0-2) 0 % (0-2) Band Neutrophils 0 % (0-8) 0 % (0-8) Platelet Estimate Adequate Adequate Platelet Morphology Normal Normal Red Blood Cell Morphology Normal Prothrombin Time 12.1 SEC (9.30-11.50) Prothromb Time International Ratio 1.1 (0.9-1.1) Activated Partial Thromboplast Time 33 SEC (23-33) Sodium Level 143 MMOL/L (136-145) 148 MMOL/L (136-145) Potassium Level 5.1 MMOL/L (3.5-5.1) 4.1 MMOL/L (3.5-5.1) Chloride Level 109 MMOL/L (98-107) 116 MMOL/L (98-107) Carbon Dioxide Level 23 MMOL/L (21-32) 19 MMOL/L (21-32) Anion Gap 11 mmol/L (5-15) 13 mmol/L (5-15) Blood Urea Nitrogen 128 mg/dL (7-18) 103 mg/dL (7-18) Creatinine 3.0 MG/DL (0.55-1.30) 2.5 MG/DL (0.55-1.30) Estimat Glomerular Filtration Rate 20.4 mL/min (>60) 25.2 mL/min (>60) Glucose Level 138 MG/DL (74-106) 97 MG/DL (74-106) Calcium Level 8.6 MG/DL (8.5-10.1) 8.4 MG/DL (8.5-10.1) Total Bilirubin 0.2 MG/DL (0.2-1.0) Aspartate Amino Transf (AST/SGOT) 26 U/L (15-37) Alanine Aminotransferase (ALT/SGPT) 26 U/L (12-78) Alkaline Phosphatase 90 U/L (46-116) Total Protein 8.2 G/DL (6.4-8.2) Albumin 1.6 G/DL (3.4-5.0) Globulin 6.6 g/dL Albumin/Globulin Ratio 0.2 (1.0-2.7) Urine Color Pale yellow Urine Appearance Slightly cloudy Urine pH 5 (4.5-8.0) Urine Specific [place] 1.010 (1.005-1.035) Urine Protein 2+ (NEGATIVE) Urine Glucose (UA) Negative (NEGATIVE) Urine Ketones Negative (NEGATIVE) Urine Blood 4+ (NEGATIVE) Urine Nitrite Negative (NEGATIVE) Urine Bilirubin Negative (NEGATIVE) Urine Urobilinogen Normal MG/DL (0.0-1.0) Urine Leukocyte Esterase 2+ (NEGATIVE) Urine RBC 5-10 /HPF (0 - 0) Urine WBC Tntc /HPF (0 - 0) Urine Squamous Epithelial Cells None /LPF (NONE/OCC) Urine Bacteria Moderate /HPF (NONE) Urine Random Sodium 68 mmol/L (20-110) Urine Creatinine 42.1 MG/DL (30.0-125.0) Hypochromasia 4+ Anisocytosis 1+ Spherocytes 3+ Test 11/10/19 08:43 Arterial Blood pH 7.264 (7.350-7.450) Arterial Blood Partial Pressure CO2 36.5 mmHg (35.0-45.0) Arterial Blood Partial Pressure O2 99.8 mmHg (75.0-100.0) Arterial Blood HCO3 16.2 mmol/L (22.0-26.0) Arterial Blood Oxygen Saturation 96.6 % (95-100) Arterial Blood Base Excess -10.0 (-2-2) Urbano Test Positive Objective: GENERAL: Ill-appearing male. HEENT: Negative. NECK: Supple. Tracheostomy midline. LUNGS: With coarse breath sounds. Moderate air entry. no wheeze CARDIAC: Tachycardic without murmurs. rubs gallops ABDOMEN: Soft. G-tube in place. No distention. no HSM EXTREMITIES: Contracted. Reduced skin turgor. NEUROLOGICAL: Poorly responsive, in pain. SKIN: Noted with wounds reviewed. Micro: Microbiology Date/Time Source Procedure Growth Status 11/09/19 18:20 Urine,Clean Catch Urine Culture - Preliminary Resulted Mansoor Martinez MD November 10, 2019 09:34
--- NOTE | 2019-11-10 10:15 | NUR ---
NURSE NOTES: First unit of PRBC started at this time. Temp 99.0, B/P:91/54, P:84.
--- NOTE | 2019-11-10 10:30 | NUR ---
NURSE NOTES: 15 min post start of transfusion. Pt tolerating well. Temp 99.0, B/P:91/54, P:81
--- NOTE | 2019-11-10 10:41 | NUR ---
CASE MANAGEMENT: REVIEW SI: SEPSIS . TONGUE LACERATION . ANEMIA T 99.1 HR 92 RR 38 BP 89/54 SAT 98% MECH VENT FIO2 100 WBC 22.9 H/H 6.3/18.8 NA 148 BUN 103 CR 2.5 IS: LEVOPHED IV Q24HR NS IVF @ 175ML/HR ZOSYN IV Q12HR PROTONIX IV QD SODIUM BICARB IV X1 G-TUBE FEEDING TRANSFUSION PRBC 2 UNITS ICU STATUS DCP: PATIENT IS FROM [facility]
--- NOTE | 2019-11-10 10:41 | Infectious Diseases Prog Note ---
Assessment/Plan Assessment/Plan antibiotics : vancomycin iv, zosyn, hydroxychloroquine A 1. pneumonia on Fi O 2 40 percent, saturation 100 percent r/o COVID 19 2. respiratory failure 3. leucocytosis improving 4. diabetes mellitus 5. seizures 6. CHF P 1. continue vancomycin iv, zosyn, hydroxychloroquine 2. will follow up cultures 3. continue isolation Subjective ROS Limited/Unobtainable: Yes Allergies: Coded Allergies: No Known Allergies (Unverified , 02/23/12) Objective Vital Signs Last 24 Hour Vital Signs Date Time Temp Pulse Resp B/P (MAP) Pulse Ox O2 Delivery O2 Flow Rate FiO2 11/10/19 09:15 92 27 121/75 (90) 100 88 11/10/19 09:00 89 38 110/65 (80) 99 82 11/10/19 08:59 85 115/61 11/10/19 08:30 98.7 93 36 115/67 (83) 99 88 11/10/19 08:00 93 31 120/63 (82) 100 87 11/10/19 08:00 Mechanical Ventilator 11/10/19 08:00 40 11/10/19 07:30 90 39 121/73 (89) 100 88 11/10/19 07:28 85 31 40 11/10/19 07:00 115/61 11/10/19 07:00 86 31 115/64 (81) 100 11/10/19 06:30 86 14 11/10/19 06:30 84 28 111/65 (80) 100 11/10/19 06:15 81 26 102/61 (75) 98 11/10/19 06:15 92/53 11/10/19 06:00 79 25 92/53 (66) 100 11/10/19 06:00 92/53 11/10/19 05:45 79 26 96/53 (67) 100 11/10/19 05:30 82 26 93/53 (66) 100 11/10/19 05:15 84 29 92/59 (70) 100 11/10/19 05:00 80 26 89/54 (66) 100 11/10/19 05:00 89/54 11/10/19 04:30 83 27 96/62 (73) 100 11/10/19 04:00 88 11/10/19 04:00 97.7 88 40 114/68 (83) 99 11/10/19 04:00 118/68 11/10/19 04:00 Mechanical Ventilator 11/10/19 04:00 40 11/10/19 03:30 99 32 104/63 (77) 98 11/10/19 03:19 98 32 40 11/10/19 03:00 97 25 132/74 (93) 98 11/10/19 03:00 132/74 11/10/19 02:30 91 28 124/80 (95) 99 11/10/19 02:00 85 37 118/73 (88) 100 11/10/19 02:00 118/73 11/10/19 01:30 82 23 114/65 (81) 100 11/10/19 01:15 110/62 11/10/19 01:00 75 25 91/54 (66) 100 11/10/19 01:00 91/54 11/10/19 00:30 78 26 103/61 (75) 100 11/10/19 00:00 79 11/10/19 00:00 99.1 79 26 108/63 (78) 100 11/10/19 00:00 Mechanical Ventilator 11/10/19 00:00 108/63 11/10/19 00:00 40 11/09/19 23:30 79 27 96/63 (74) 100 11/09/19 23:00 120/64 11/09/19 23:00 87 28 120/64 (82) 100 11/09/19 22:47 88 29 40 11/09/19 22:30 90 30 129/78 (95) 99 11/09/19 22:00 134/71 11/09/19 22:00 88 25 134/71 (92) 100 11/09/19 21:48 130/90 11/09/19 21:30 88 26 136/76 (96) 100 11/09/19 21:15 88 28 143/75 (97) 100 11/09/19 21:00 137/80 11/09/19 21:00 85 35 137/80 (99) 100 11/09/19 20:50 87 34 135/82 (99) 99 11/09/19 20:50 135/82 11/09/19 20:45 98.8 83 25 118/55 (76) 99 5/12/20 20:45 118/55 11/09/19 20:30 82 27 133/57 (82) 100 11/09/19 20:15 78 27 128/41 (70) 99 11/09/19 20:00 139/60 11/09/19 20:00 80 28 139/60 (86) 99 11/09/19 20:00 Mechanical Ventilator 11/09/19 20:00 40 11/09/19 19:45 78 22 129/43 (71) 100 11/09/19 19:30 80 11/09/19 19:30 78 29 121/54 (76) 99 11/09/19 19:11 78 29 40 11/09/19 19:00 118/29 11/09/19 19:00 79 26 118/29 (58) 99 11/09/19 18:30 80 25 124/64 (84) 100 11/09/19 18:15 80 24 120/34 (62) 100 11/09/19 18:00 117/30 11/09/19 18:00 84 28 117/30 (59) 100 11/09/19 17:30 88 28 101/27 (51) 100 11/09/19 17:20 81 27 40 11/09/19 17:00 40 11/09/19 17:00 117/68 11/09/19 17:00 98.1 84 30 117/68 (84) 100 11/09/19 16:55 126/41 11/09/19 16:30 89 32 137/44 (75) 100 11/09/19 16:00 89 11/09/19 16:00 120/46 11/09/19 16:00 78 25 120/46 (70) 100 11/09/19 16:00 Mechanical Ventilator 11/09/19 15:30 79 25 120/63 (82) 100 11/09/19 15:01 80 28 50 11/09/19 15:00 81 24 109/88 (95) 100 11/09/19 15:00 109/88 11/09/19 15:00 50 11/09/19 14:45 77 25 124/37 (66) 100 11/09/19 14:30 78 25 117/37 (63) 100 11/09/19 14:00 76 25 106/34 (58) 100 11/09/19 14:00 111/39 11/09/19 13:30 78 25 106/34 (58) 100 11/09/19 13:15 77 25 121/37 (65) 100 11/09/19 13:08 78 23 100/37 (58) 100 11/09/19 13:00 78 23 61/52 (55) 100 11/09/19 13:00 100/37 11/09/19 12:45 78 23 116/38 (64) 100 11/09/19 12:30 78 22 114/29 (57) 100 11/09/19 12:15 72 21 155/64 (94) 100 11/09/19 12:04 79/20 11/09/19 12:00 80 11/09/19 12:00 97.0 78 22 79/20 (39) 100 11/09/19 12:00 Mechanical Ventilator 11/09/19 11:46 79 26 75/25 (42) 100 11/09/19 11:14 92 31 100 Mechanical Ventilator 60 11/09/19 11:10 92 31 60 11/09/19 11:00 85 25 75/34 (48) 100 11/09/19 10:54 88 21 86/61 (69) 100 11/09/19 10:38 97.3 88 21 86/29 (48) 100 Height (Feet): 5 Height (Inches): 4.00 Weight (Pounds): 126 HEENT: status post trach Respiratory/Chest: lungs clear Cardiovascular: normal rate, regular rhythm, no gallop/murmur Abdomen: soft, non tender, other - GT Extremities: no edema Microbiology Date/Time Source Procedure Growth Status 11/09/19 18:20 Urine,Clean Catch Urine Culture - Preliminary Resulted Laboratory Tests Test 11/09/19 18:20 11/10/19 04:25 11/10/19 08:43 Urine Color Pale yellow Urine Appearance Slightly cloudy Urine pH 5 (4.5-8.0) Urine Specific [place] 1.010 (1.005-1.035) Urine Protein 2+ (NEGATIVE) H Urine Glucose (UA) Negative (NEGATIVE) Urine Ketones Negative (NEGATIVE) Urine Blood 4+ (NEGATIVE) H Urine Nitrite Negative (NEGATIVE) Urine Bilirubin Negative (NEGATIVE) Urine Urobilinogen Normal MG/DL (0.0-1.0) Urine Leukocyte Esterase 2+ (NEGATIVE) H Urine RBC 5-10 /HPF (0 - 0) H Urine WBC Tntc /HPF (0 - 0) H Urine Squamous Epithelial Cells None /LPF (NONE/OCC) Urine Bacteria Moderate /HPF (NONE) H Urine Random Sodium 68 mmol/L (20-110) Urine Creatinine 42.1 MG/DL (30.0-125.0) White Blood Count 22.6 K/UL (4.8-10.8) *H Red Blood Count 1.98 M/UL (4.70-6.10) L Hemoglobin 6.3 G/DL (14.2-18.0) *L Hematocrit 18.8 % (42.0-52.0) L Mean Corpuscular Volume 95 FL (80-99) Mean Corpuscular Hemoglobin 31.5 PG (27.0-31.0) H Mean Corpuscular Hemoglobin Concent 33.2 G/DL (32.0-36.0) Red Cell Distribution Width 14.5 % (11.6-14.8) Platelet Count 309 K/UL (150-450) Mean Platelet Volume 4.9 FL (6.5-10.1) L Neutrophils (%) (Auto) % (45.0-75.0) Lymphocytes (%) (Auto) % (20.0-45.0) Monocytes (%) (Auto) % (1.0-10.0) Eosinophils (%) (Auto) % (0.0-3.0) Basophils (%) (Auto) % (0.0-2.0) Differential Total Cells Counted 100 Neutrophils % (Manual) 85 % (45-75) H Lymphocytes % (Manual) 10 % (20-45) L Monocytes % (Manual) 5 % (1-10) Eosinophils % (Manual) 0 % (0-3) Basophils % (Manual) 0 % (0-2) Band Neutrophils 0 % (0-8) Platelet Estimate Adequate Platelet Morphology Normal Hypochromasia 4+ Anisocytosis 1+ Spherocytes 3+ Sodium Level 148 MMOL/L (136-145) H Potassium Level 4.1 MMOL/L (3.5-5.1) Chloride Level 116 MMOL/L (98-107) H Carbon Dioxide Level 19 MMOL/L (21-32) L Anion Gap 13 mmol/L (5-15) Blood Urea Nitrogen 103 mg/dL (7-18) H Creatinine 2.5 MG/DL (0.55-1.30) H Estimat Glomerular Filtration Rate 25.2 mL/min (>60) Glucose Level 97 MG/DL (74-106) Calcium Level 8.4 MG/DL (8.5-10.1) L Arterial Blood pH 7.264 (7.350-7.450) Arterial Blood Partial Pressure CO2 36.5 mmHg (35.0-45.0) Arterial Blood Partial Pressure O2 99.8 mmHg (75.0-100.0) Arterial Blood HCO3 16.2 mmol/L (22.0-26.0) *L Arterial Blood Oxygen Saturation 96.6 % (95-100) Arterial Blood Base Excess -10.0 (-2-2) *L Urbano Test Positive Current Medications Medications (Trade) Dose Ordered Sig/Lanny Route PRN Reason Start Time Stop Time Status Last Admin Dose Admin Acetaminophen (Tylenol) 650 mg Q4H PRN ORAL Temp >100.5 11/09/19 11:15 12/09/19 11:14 Al Hydroxide/Mg Hydroxide (Mylanta) 30 ml Q4H PRN ORAL Nausea & Vomiting 11/09/19 11:15 12/09/19 11:14 Amlodipine Besylate (Norvasc) 5 mg DAILY ORAL 11/10/19 09:00 12/10/19 08:59 Ascorbic Acid (Vitamin C) 500 mg DAILY ORAL 11/10/19 09:00 12/10/19 08:59 11/10/19 08:58 Chlorhexidine Gluconate (Kayla-Hex 2%) 1 applic DAILY@2000 TOPIC 11/09/19 20:00 02/07/20 19:59 11/09/19 20:33 Docusate Sodium (Colace) 100 mg TWICE A DAY NG 11/10/19 09:00 12/10/19 08:59 11/10/19 08:58 Heparin Sodium (Porcine) (Heparin 5000 units/ml) 5,000 units EVERY 12 HOURS SUBQ 11/09/19 21:00 12/24/19 20:59 11/10/19 08:59 Hydroxychloroquine Sulfate (Plaquenil) 200 mg Q12HR ORAL 11/10/19 21:00 11/14/19 09:01 Levetiracetam (Keppra) 750 mg Q12HR NG 11/09/19 21:00 12/09/19 20:59 11/10/19 08:58 Levothyroxine Sodium (Synthroid) 75 mcg DAILY@0630 NG 11/10/19 06:30 12/10/19 06:29 11/10/19 05:38 Levothyroxine Sodium (Synthroid) 100 mcg DAILY@0630 NG 11/10/19 06:30 12/10/19 06:29 11/10/19 05:38 Multivitamins (Multivitamins W/ Minerals 15ml Liquid) 15 ml DAILY GT 11/10/19 09:00 12/10/19 08:59 11/10/19 08:58 Norepinephrine Bitartrate 4 mg/ Dextrose 250 ml @ 0 mls/hr Q24H IV 11/09/19 11:15 12/09/19 11:14 11/10/19 06:15 Pantoprazole (Protonix) 40 mg DAILY IVP 11/10/19 09:00 12/10/19 08:59 11/10/19 08:58 Piperacillin Sod/ Tazobactam Sod 3.375 gm/Sodium Chloride 110 ml @ 27.5 mls/hr Q12H IVPB 11/10/19 18:00 11/17/19 17:59 Sodium Bicarbonate (Sodium Bicarbonate) 100 ml ONCE IV 11/10/19 09:33 11/10/19 11:00 11/10/19 10:01 Sodium Chloride 1,000 ml @ 175 mls/hr Q5H43M IV 11/09/19 13:30 12/09/19 13:29 11/10/19 06:15 Vancomycin HCl (Vanco rx to dose) 1 ea DAILY PRN MISC Per rx protocol 11/09/19 11:15 12/09/19 11:14 Isaak Hair MD November 10, 2019 10:41
--- NOTE | 2019-11-10 10:59 | Consultation ---
DATE OF CONSULTATION: 11/09/2019 CONSULTING PHYSICIAN: Cl Gong MD. REFERRING PHYSICIAN: Mansoor Martinez MD. REASON FOR CONSULTATION: Acute kidney injury, sepsis, septic shock. HISTORY OF PRESENT ILLNESS: The patient is a resident of an [facility], chronically on a ventilator, has seizure disorder, CHF, atrial fibrillation, diabetes, hypothyroidism, prior hematuria. He was recently hospitalized, stabilized, and discharged. He again comes in with elevation of BUN and creatinine, sepsis. He received about 4 liters of fluid in the ER prior to coming to the ICU. The patient is unable to provide history. MEDICATIONS: From the [facility] are reviewed in the computer. PHYSICAL EXAMINATION: GENERAL: The patient is obtunded on a ventilator. He is on pressors. VITAL SIGNS: Blood pressure 79/20, FiO2 60%, pulse ox 100, heart rate 92, temperature 100.5. HEAD, EYES, EARS, NOSE, AND THROAT: Eyes and mouth are closed. NECK: Tracheostomy. LUNGS: Rhonchi. HEART: Regular rhythm and tachycardic. ABDOMEN: Soft. PEG tube. EXTREMITIES: No edema. There is muscle wasting. NEUROLOGIC: Obtunded. PERTINENT LABORATORY DATA: White count 34.9, hemoglobin 7.2. Sodium 143, potassium 5.1, chloride 109, CO2 23, BUN 128, creatinine is 3, glucose 138. Albumin 1.6. IMPRESSION: 1. Acute kidney injury likely from dehydration and septic shock. 2. Pneumonia. 3. Chronic respiratory failure. 4. Severe protein-calorie malnutrition. 5. Diabetes. 6. Paroxysmal atrial fibrillation. 7. Seizure disorder. PLAN: The patient likely is still prerenal and will benefit by further fluid administration, condition is critical. He will be given broad-spectrum antibiotics. Ventilatory care. Prognosis is grave. Cl Gong M.D. DR: Dejuan JOB#: [id number] CC:
--- NOTE | 2019-11-10 11:08 | NUR ---
*-* INSURANCE *-* ALL AVAILABLE CLINICALS HAVE BEEN FAXED TO: [facility] [phone] Work Work Fax
--- NOTE | 2019-11-10 12:00 | NUR ---
NURSE NOTES: FiO2 increased to 60% and rate increase to 22, as ordered by Dr Martinez, after assessing ABG result
--- NOTE | 2019-11-10 12:20 | NUR ---
BASS FISHER NOTE Per chart review, pt is non-verbal and trach to vent dependent. Pt is from [facility] [address], [place] [address]. JAIDA spoke w/ JAIDA Henao from [facility] that pt's friend, Srini Pelayo is the primary decision maker for this pt. Per Srini Henao may be the conservator. Pt does not have any family members. JAIDA left a vm to Srini Pelayo [phone] for call back to verify information. Addendum: 11/10/19 at 1250 by HESHAM SENA There is no copy of POLST in the chart. Addendum: 11/10/19 at 1311 by HESHAM SENA JAIDA received a call back from Srini Pelayo and confirmed he is the primary decision maker and the conservator. Per Srini, he did not know the type of conservatorship that he had but stating that the strip stamp straightener granted him w/o expiration- till pt recovers or expires.
--- NOTE | 2019-11-10 12:26 | NUR ---
NURSE NOTES: Gram + cocci reported to Dr. Hair - no new order given
--- NOTE | 2019-11-10 13:00 | NUR ---
NURSE NOTES: No leaking noted from condom cath. Pt resting in bed comfortably. Tolerating well with current feeding rate and formula
--- NOTE | 2019-11-10 14:00 | NUR ---
NURSE NOTES: Pt remains on 20mcg/kg/min of Dopamine. No distress noted at this time. Addendum: 11/10/19 at 1428 by Zoraida Molina RN Charting done on wrong pt.
--- NOTE | 2019-11-10 14:10 | NUR ---
NURSE NOTES: 2nd PRBC started. No s/s of bleeding or adverse reaction noted from previous blood transfusion. No signs of distress noted. Oral suction provided
--- NOTE | 2019-11-10 16:00 | NUR ---
NURSE NOTES: Pt in bed obtunded, responsive to tactile stimuli. Tongue bite hook in place. No signs of bleeding noted. No distress noted at this time
--- NOTE | 2019-11-10 16:11 | NUR ---
NURSE NOTES:WOUND CARE NOTES:Pt presented on admission with contractures. Resolving full thickness pressure injury Sacrum and R buttocks. Hyperpigmentation with scarring noted with small open area that is moist and viable within injured field. darker skin tone without induration periwound. Resolving pressure injury R heel. Hyperpigmentation with small area of erythema within base of injury with loose callused and dry necrotic edges. Full thickness pressure injury R Hallux. Base of wound is dl with scattered slough. Bone is palpable. Dark, dry brown borders. Full thickness lateral and plantar R 1st metatarsal.Base of wound is 25% necrotic ,75% dl. An area of necrosis noted at nail matrix. L heel is boggy with non-blanching erythema. Tx.Plan: Apply Moisture Barrier Paste to Sacrum,R and L Buttocks. Cover with Optifoam drsgs. Change every 3 days and prn. Apply Betadine to R hallux and R 1st metatarsal. Cover with Optifoam drsg. Change every 3 days and prn. Apply Betadine to R heel. Cover R heel with Optifoam drsg. Change every 3 days and prn. Apply Cavilon Skin Barrier to L heel. Cover with Optifoam drsg. Change every 7 days and prn. Reposition at least every 2hours or as tolerated. Place pillow between knees. Off-load heels with pillow.
--- NOTE | 2019-11-10 16:59 | History and Physical Report ---
DATE OF ADMISSION: 11/09/2019 CHIEF COMPLAINT: Sepsis, oral bleeding, questionable seizure, encephalopathy, and sepsis. HISTORY OF PRESENT ILLNESS: Patient is an unfortunate 79-year-old male, well known to me. He has a prior history of stroke, encephalopathy, and chronic respiratory failure. He was transferred from a [facility] facility via 911 because of bleeding from the mouth. Patient appears to have sustained some type of an abrasion and laceration to the inside of his mouth. There are no reports of any seizures. On evaluation in the emergency room, the patient was hypotensive. A bite block was placed because of bleeding. He had a hemoglobin of 7.2 [place] [address]. Patient was pancultured. He has been started on broad-spectrum IV antibiotics. He is now admitted for further evaluation and care. He is nonresponsive at baseline. PAST MEDICAL HISTORY: As above. PAST SURGICAL HISTORY: Includes a trach and a G-tube. CURRENT MEDICATIONS: Reconciled and reviewed. ALLERGIES: None. FAMILY HISTORY: None. SOCIAL HISTORY: There is no known history of tobacco, ethanol, or drugs. REVIEW OF SYSTEMS: From the patient is unobtainable as he is nonverbal at baseline. PHYSICAL EXAMINATION: VITAL SIGNS: Temperature 100.5, pulse 107, respirations 23, blood pressure 87/68. GENERAL: Patient is a chronically ill-appearing, debilitated male. He is currently resting. He is poorly responsive. HEENT: Head is normocephalic and atraumatic. Pupils are equal, round, and reactive to light. The sclerae are anicteric. Oropharynx has a bite block. NECK: Supple. Trach was midline and clean. No jugular venous distention noted. HEART: Regular rate and rhythm. LUNGS: Significant for rhonchi left greater than right. ABDOMEN: Soft, nontender, nondistended. EXTREMITIES: Without clubbing or cyanosis. Patient is contracted. He has wounds on the both feet. There are no rashes noted. LABORATORY DATA: UA showed too numerous to count wbc's, white count 34,000, hemoglobin 7.2. Coags are normal. Sodium 143, potassium 5.1, chloride 109, bicarb 23, BUN 128, creatinine was 3. ASSESSMENT: This is an unfortunate elderly male with multiple medical problems including history of encephalopathy, stroke, chronic respiratory failure admitted with severe anemia, sepsis, bleeding from the mouth. PLAN: 1. Transfuse for hemoglobin greater than 8. 2. Broad-spectrum IV antibiotics. 3. Follow up cultures. 4. Monitor serial CBCs. 5. ID consultation. 6. Continue G-tube feeds. 7. Continue thyroid replacement therapy. 8. Continue seizure treatment. 9. Monitor for seizures. 10. DVT and stress ulcer prophylaxis. 11. Patient's status is currently guarded. Jimi Tellez M.D. DR: AN JOB#: [id number] CC:
[2019-11-10] MEDS: Zosyn 3.375gm in NS 110ml IVPB SCH (17:10)
--- NOTE | 2019-11-10 17:35 | NUR ---
NURSE NOTES: Pt fully cleaned, with partial bedding changed after pt had a small green mucus like BM. Pt's oral care done and trach dressing changed. No distress noted at this time. Condom cath remains intact draining to urometer. Lowered Levophed to 4mcg/min to maintain SBP >90.
--- NOTE | 2019-11-10 18:47 | Nephrology Progress Note ---
Assessment/Plan Problem List: (1) Metabolic acidosis (2) AUDREY (acute kidney injury) (3) UTI (urinary tract infection) (4) Pneumonia (5) Protein-calorie malnutrition, severe (6) Dehydration (7) Chronic respiratory failure (8) Sepsis (9) Acute on chronic anemia Plan continue hydration, bicarb, howard , broad spectrum atb,pulm care Subjective ROS Limited/Unobtainable: Yes Objective Objective Last 24 Hour Vital Signs Date Time Temp Pulse Resp B/P (MAP) Pulse Ox O2 Delivery O2 Flow Rate FiO2 11/10/19 18:00 90 32 118/67 (84) 100 11/10/19 18:00 118/67 11/10/19 17:30 90 34 120/72 (88) 100 11/10/19 17:15 90 34 122/74 (90) 100 11/10/19 17:11 145/82 11/10/19 17:00 98 32 145/82 (103) 95 11/10/19 17:00 145/82 11/10/19 16:30 92 30 121/85 (97) 100 11/10/19 16:00 Mechanical Ventilator 11/10/19 16:00 120/70 11/10/19 16:00 60 11/10/19 16:00 98.1 93 36 120/70 (87) 100 11/10/19 16:00 70 11/10/19 15:30 90 28 126/67 (86) 100 11/10/19 15:28 89 30 60 11/10/19 15:00 82 23 101/65 (77) 100 11/10/19 15:00 101/65 11/10/19 14:00 78 25 106/60 (75) 100 11/10/19 14:00 106/60 11/10/19 13:30 78 29 108/61 (77) 100 11/10/19 13:00 119/69 11/10/19 13:00 119/69 11/10/19 13:00 83 29 119/69 (86) 100 11/10/19 12:30 88 28 122/72 (89) 100 11/10/19 12:00 78 11/10/19 12:00 99.0 84 25 114/73 (87) 100 11/10/19 12:00 Mechanical Ventilator 11/10/19 12:00 114/73 11/10/19 12:00 114/73 11/10/19 12:00 60 11/10/19 11:30 77 23 101/59 (73) 100 11/10/19 11:29 82 25 40 11/10/19 11:00 81 24 104/63 (77) 100 11/10/19 11:00 104/63 11/10/19 10:30 82 25 91/54 (66) 100 11/10/19 10:15 92 27 101/56 (71) 100 11/10/19 10:00 101/56 11/10/19 10:00 99.1 82 26 91/55 (67) 99 11/10/19 09:15 92 27 121/75 (90) 100 88 11/10/19 09:00 121/75 11/10/19 09:00 89 38 110/65 (80) 99 82 11/10/19 08:59 85 115/61 11/10/19 08:30 98.7 93 36 115/67 (83) 99 88 11/10/19 08:00 93 31 120/63 (82) 100 87 11/10/19 08:00 116/76 11/10/19 08:00 Mechanical Ventilator 11/10/19 08:00 92 11/10/19 08:00 40 11/10/19 07:30 90 39 121/73 (89) 100 88 11/10/19 07:28 85 31 40 11/10/19 07:00 115/61 11/10/19 07:00 86 31 115/64 (81) 100 11/10/19 06:30 86 14 11/10/19 06:30 84 28 111/65 (80) 100 11/10/19 06:15 81 26 102/61 (75) 98 11/10/19 06:15 92/53 11/10/19 06:00 79 25 92/53 (66) 100 11/10/19 06:00 92/53 11/10/19 05:45 79 26 96/53 (67) 100 11/10/19 05:30 82 26 93/53 (66) 100 11/10/19 05:15 84 29 92/59 (70) 100 11/10/19 05:00 80 26 89/54 (66) 100 11/10/19 05:00 89/54 11/10/19 04:30 83 27 96/62 (73) 100 11/10/19 04:00 88 11/10/19 04:00 97.7 88 40 114/68 (83) 99 11/10/19 04:00 118/68 11/10/19 04:00 Mechanical Ventilator 11/10/19 04:00 40 11/10/19 03:30 99 32 104/63 (77) 98 11/10/19 03:19 98 32 40 11/10/19 03:00 97 25 132/74 (93) 98 11/10/19 03:00 132/74 11/10/19 02:30 91 28 124/80 (95) 99 11/10/19 02:00 85 37 118/73 (88) 100 11/10/19 02:00 118/73 11/10/19 01:30 82 23 114/65 (81) 100 11/10/19 01:15 110/62 11/10/19 01:00 75 25 91/54 (66) 100 11/10/19 01:00 91/54 11/10/19 00:30 78 26 103/61 (75) 100 11/10/19 00:00 79 11/10/19 00:00 99.1 79 26 108/63 (78) 100 11/10/19 00:00 Mechanical Ventilator 11/10/19 00:00 108/63 11/10/19 00:00 40 11/09/19 23:30 79 27 96/63 (74) 100 11/09/19 23:00 120/64 11/09/19 23:00 87 28 120/64 (82) 100 11/09/19 22:47 88 29 40 11/09/19 22:30 90 30 129/78 (95) 99 11/09/19 22:00 134/71 11/09/19 22:00 88 25 134/71 (92) 100 11/09/19 21:48 130/90 11/09/19 21:30 88 26 136/76 (96) 100 11/09/19 21:15 88 28 143/75 (97) 100 11/09/19 21:00 137/80 11/09/19 21:00 85 35 137/80 (99) 100 11/09/19 20:50 87 34 135/82 (99) 99 11/09/19 20:50 135/82 11/09/19 20:45 98.8 83 25 118/55 (76) 99 11/09/19 20:45 118/55 11/09/19 20:30 82 27 133/57 (82) 100 11/09/19 20:15 78 27 128/41 (70) 99 11/09/19 20:00 139/60 11/09/19 20:00 80 28 139/60 (86) 99 11/09/19 20:00 Mechanical Ventilator 11/09/19 20:00 40 11/09/19 19:45 78 22 129/43 (71) 100 11/09/19 19:30 80 11/09/19 19:30 78 29 121/54 (76) 99 11/09/19 19:11 78 29 40 11/09/19 19:00 118/29 11/09/19 19:00 79 26 118/29 (58) 99 Intake and Output 11/09/19 11/10/19 18:59 06:59 Intake Total 1461.375 ml 2802.8 ml Output Total 950 ml Balance 1461.375 ml 1852.8 ml IV Total 1461.375 ml 2602.8 ml Other 200 ml Output Urine Total 950 ml # Voids 200 # Bowel Movements 3 Laboratory Tests 11/10/19 04:25: White Blood Count 22.6*H, Red Blood Count 1.98L, Hemoglobin 6.3*L, Hematocrit 18.8L, Mean Corpuscular Volume 95, Mean Corpuscular Hemoglobin 31.5H, Mean Corpuscular Hemoglobin Concent 33.2, Red Cell Distribution Width 14.5, Platelet Count 309, Mean Platelet Volume 4.9L, Neutrophils (%) (Auto) , Lymphocytes (%) ( Auto) , Monocytes (%) (Auto) , Eosinophils (%) (Auto) , Basophils (%) (Auto) , Differential Total Cells Counted 100, Neutrophils % (Manual) 85H, Lymphocytes % (Manual) 10L, Monocytes % (Manual) 5, Eosinophils % (Manual) 0, Basophils % ( Manual) 0, Band Neutrophils 0, Platelet Estimate Adequate, Platelet Morphology Normal, Hypochromasia 4+, Anisocytosis 1+, Spherocytes 3+, Sodium Level 148H, Potassium Level 4.1, Chloride Level 116H, Carbon Dioxide Level 19L, Anion Gap 13 , Blood Urea Nitrogen 103H, Creatinine 2.5H, Estimat Glomerular Filtration Rate 25.2, Glucose Level 97, Calcium Level 8.4L 11/10/19 08:43: Arterial Blood pH 7.264L, Arterial Blood Partial Pressure CO2 36.5, Arterial Blood Partial Pressure O2 99.8, Arterial Blood HCO3 16.2*L, Arterial Blood Oxygen Saturation 96.6, Arterial Blood Base Excess -10.0*L, Urbano Test Positive 11/10/19 10:40: Arterial Blood pH 7.324L, Arterial Blood Partial Pressure CO2 36.7, Arterial Blood Partial Pressure O2 198.9H, Arterial Blood HCO3 18.7L, Arterial Blood Oxygen Saturation 99.1, Arterial Blood Base Excess -6.8L, Urbano Test Positive Height (Feet): 5 Height (Inches): 4.00 Weight (Pounds): 126 General Appearance: mild distress, other - on vent Cardiovascular: regular rhythm Respiratory/Chest: crackles/rales Abdomen: non tender Extremities: no edema Neurologic: unresponsive Cl Gong MD November 10, 2019 18:47
[2019-11-10] MEDS ORDERED: Sodium Citrate 30ml GT SCH (19:00)
--- NOTE | 2019-11-10 19:00 | NUR ---
NURSE NOTES: Pt in bed responsive to tactile stimuli. Tolerating well with current vent setting. Feeding via g-tube running with Vital AF @30ml/hr patent.
--- NOTE | 2019-11-10 19:20 | NUR ---
HAND-OFF: Report given to Mitch BLUNT. Pt remains stable.
--- NOTE | 2019-11-10 19:38 | NUR ---
NURSE NOTES: PATIENT ASLEEP STATUS, ON TRACH TO VENT AC22/TV450/FIO2 60%/PEEP8, O2 SATURATION 100% NOTED, HR 70'S/MIN SR, G TUBE INTACT AND PATENT, ONGOING VITAL AF 1.2 AT 30ML/HR VIA G TUBE, KEPT HOB 30 DEGREES AND ASPIRATION PRECAUTION , CONDOM CATHETER STATUS, YELLOW URINE OUTED, TLC TO LEFT IJ AND PPL TO BOTH HANDS AND UA, INTACT AND PATENT, ONGOING LEVOPHED 4MCG/MIN AND IV FLUID NS AT 150ML/HR VIA TLC, ON P200 BED, LOWER BED POSITION, ON BED ALARM AND LOCKED, KEPT SZ AND FALL PRECAUTION, WILL CONTINUE TO MONITOR.
[2019-11-10] MEDS: Sodium Citrate 30ml GT SCH (20:00)
[2019-11-10] MEDS: Dyna-Hex 2% Top Sol 2oz TOPIC SCH (20:00)
--- NOTE | 2019-11-10 22:10 | NUR ---
NURSE NOTES: LE: NO PAIN OR SOB NOTED, WILL CONTINUE TO MONITOR.
[2019-11-11] VITALS (35 sets, daily range): BP systolic 83–145; BP diastolic 45–92
--- NOTE | 2019-11-11 00:45 | NUR ---
NURSE NOTES: TOLERATED FEEDING, ONGOING VITAL AF 1.2 AT 40ML/HR VIA G- TUBE, KEPT HOB 30 DEGREES, WILL CONTINUE TO MONITOR.
--- NOTE | 2019-11-11 02:33 | NUR ---
NURSE NOTES: BP 141/73 MMHG NOTED, CHANGED LEVOPHED TO 2MCG/MIN, WILL CONTINUE TO MONITOR.
--- NOTE | 2019-11-11 04:08 | NUR ---
NURSE NOTES: MORNING CARE WAS DONE, NO BM STATUS.
[2019-11-11] MEDS: Zosyn 3.375gm in NS 110ml IVPB SCH ×2 (05:32→17:27)
[2019-11-11 05:40] LABS: BASOPHILS % (AUTO) 0.4 % (0.0-2.0); HEMATOCRIT 24.7 % (42.0-52.0); HEMOGLOBIN 8.4 G/DL (14.2-18.0); LYMPHOCYTES % (AUTO) 10.1 % (20.0-45.0); MEAN CORPUSCULAR VOLUME 92 FL (80-99); NEUTROPHILS % (AUTO) 83.5 % (45.0-75.0); PLATELET COUNT 289 K/UL (150-450); RED BLOOD COUNT 2.69 M/UL (4.70-6.10); RED CELL DISTRIBUTION WIDTH 15.3 % (11.6-14.8); WHITE BLOOD COUNT 17.4 K/UL (4.8-10.8)
[2019-11-11 06:09] LABS: ALANINE AMINOTRANSFERASE 18 U/L (12-78); ALBUMIN 1.4 G/DL (3.4-5.0); ALBUMIN/GLOBULIN RATIO 0.2 (1.0-2.7); ALKALINE PHOSPHATASE 71 U/L (46-116); ANION GAP 9 mmol/L (5-15); ASPARTATE AMINO TRANSFERASE 18 U/L (15-37); BILIRUBIN,TOTAL 0.3 MG/DL (0.2-1.0); BLOOD UREA NITROGEN 92 mg/dL (7-18); CARBON DIOXIDE 22 MMOL/L (21-32); CHLORIDE 119 MMOL/L (98-107); CREATININE 2.4 MG/DL (0.55-1.30); SODIUM 150 MMOL/L (136-145)
--- NOTE | 2019-11-11 06:20 | NUR ---
NURSE NOTES: LE: NO ACUTE DISTRESS NOTED AT THIS SHIFT.
--- NOTE | 2019-11-11 07:20 | NUR ---
HAND-OFF: Report given to MERLENE DELEON.
--- NOTE | 2019-11-11 07:28 | NUR ---
NURSE NOTES: Patient report received from MERLENE Yanez.Afebrile and asleep when received and responsive to tactile stimuli. Pt is on trach and vent portex 8, AC 22, VT 450 FIO2 60% Peep 5. SR on the monitor, running Vital AF at 45cc. GT placement checked and intake. No residual noted at this time and tolerate well.HOB elevated at 35 degree to prevent aspiration.Condom catheter in place draining yellow straw urine with no apparent sediment.Pt on P200 mattress for skin management. LIJ/TLC running Levophed at 1mcg/hr and peripheral line right and left hand with no apparent infiltrate. Pt afebrile, mouth care done, abdomen soft and non distended.Turned and repositioned for skin management.Will continue same care plan.
[2019-11-11] MEDS ORDERED: Vancomycin 750mg/NS 275ml IVPB ONE ×2 (08:00)
--- NOTE | 2019-11-11 08:00 | NUR ---
NURSE NOTES: Off Levophed drip.Will continue to monitor BP
[2019-11-11] MEDS: Multivitamins W/Minerals 15 ML UDC GT SCH (09:10)
[2019-11-11] MEDS: Sodium Citrate 30ml GT SCH ×3 (09:10→17:27)
[2019-11-11] MEDS: levETIRAcetam 500mg/5ml Liquid NG SCH ×2 (09:10→20:19)
[2019-11-11] MEDS: Ascorbic Acid 500mg tab ORAL SCH (09:10)
[2019-11-11] MEDS: Docusate 100mg/10ml Liq NG SCH ×2 (09:10→17:27)
[2019-11-11] MEDS: Pantoprazole Inj IVP SCH (09:11)
--- NOTE | 2019-11-11 09:11 | Critical Care Progress Note ---
Assessment/Plan Assessment/Plan IMPRESSION: Leukocytosis, sepsis, pneumonia, possible COVID, respiratory failure, profound anemia, acute on chronic renal failure, multiple contractures and wounds, severe protein-calorie malnutrition. acidemia bacteremia, UTI, + sputum PLAN vent support hypervent as is for now transfused and monitor bicarb as needed iv antibotics check cultures off load as able monitor acid base and adjust position change monitor TSH nutrition ICU care medications/laboratory data/nursing notes/ICU care reviewed in detail note reviewed and edited care discussed with RN and RT ICU time spent >40 minutes Critical Care - Subjective Interval Events: remains ill on elevated RR and acid base better wbc responding renal function better ROS Limited/Unobtainable: Yes Condition: critical EKG Rhythm: Sinus Rhythm Residuals: minimal Tube Feeding Tolerated: yes I&O: Intake and Output 11/10/19 11/11/19 19:00 07:00 Intake Total 2828.09 ml 2591.58 ml Output Total 500 ml 650 ml Balance 2328.09 ml 1941.58 ml IV Total 2458.09 ml 2041.58 ml Tube Feeding 210 ml 350 ml Other 160 ml 200 ml Output Urine Total 500 ml 650 ml # Bowel Movements 1 Critical Care - Objective Last 24 Hour Vital Signs Date Time Temp Pulse Resp B/P (MAP) Pulse Ox O2 Delivery O2 Flow Rate FiO2 11/11/19 07:20 88 30 60 11/11/19 07:00 84 30 118/63 (81) 100 11/11/19 07:00 118/63 11/11/19 06:30 88 31 105/68 (80) 100 11/11/19 06:30 88 31 11/11/19 06:00 101/65 11/11/19 06:00 85 28 106/65 (79) 100 11/11/19 05:45 125/75 11/11/19 05:30 89 28 122/71 (88) 100 11/11/19 05:00 87 26 107/68 (81) 100 11/11/19 05:00 107/68 11/11/19 04:30 88 37 119/73 (88) 100 11/11/19 04:00 Mechanical Ventilator 11/11/19 04:00 130/73 11/11/19 04:00 93 11/11/19 04:00 98.4 93 38 130/73 (92) 100 5/14/20 04:00 60 11/11/19 03:30 86 41 122/78 (93) 100 11/11/19 03:29 87 28 60 11/11/19 03:00 127/67 11/11/19 03:00 87 38 127/67 (87) 100 11/11/19 02:30 86 39 141/73 (95) 100 11/11/19 02:30 141/73 11/11/19 02:00 82 40 139/79 (99) 100 11/11/19 02:00 139/79 11/11/19 01:30 82 43 131/66 (87) 99 11/11/19 01:00 125/69 11/11/19 01:00 78 34 125/69 (87) 100 11/11/19 00:30 78 35 120/65 (83) 99 11/11/19 00:00 98.8 78 29 119/65 (83) 99 11/11/19 00:00 119/65 11/11/19 00:00 Mechanical Ventilator 11/11/19 00:00 60 11/11/19 00:00 78 11/10/19 23:30 75 29 101/56 (71) 100 11/10/19 23:25 70 24 60 11/10/19 23:00 94/62 11/10/19 23:00 74 25 94/62 (73) 100 11/10/19 22:30 73 25 96/58 (71) 100 11/10/19 22:00 79 33 113/59 (77) 100 11/10/19 22:00 113/59 11/10/19 21:30 78 35 117/62 (80) 97 11/10/19 21:00 117/63 11/10/19 21:00 80 31 117/63 (81) 94 11/10/19 20:30 76 32 104/64 (77) 100 11/10/19 20:00 Mechanical Ventilator 11/10/19 20:00 98.6 76 25 101/55 (70) 100 11/10/19 20:00 101/55 11/10/19 20:00 60 11/10/19 19:39 74 11/10/19 19:30 80 33 100/56 (71) 100 11/10/19 19:29 75 24 60 11/10/19 19:00 109/59 11/10/19 19:00 82 35 107/63 (78) 100 11/10/19 19:00 82 35 107/63 (78) 100 11/10/19 18:30 88 26 110/64 (79) 100 11/10/19 18:00 90 32 118/67 (84) 100 11/10/19 18:00 118/67 11/10/19 17:30 90 34 120/72 (88) 100 11/10/19 17:15 90 34 122/74 (90) 100 11/10/19 17:11 145/82 11/10/19 17:00 98 32 145/82 (103) 95 11/10/19 17:00 145/82 11/10/19 16:30 92 30 121/85 (97) 100 11/10/19 16:00 Mechanical Ventilator 11/10/19 16:00 120/70 11/10/19 16:00 60 11/10/19 16:00 98.1 93 36 120/70 (87) 100 11/10/19 16:00 70 11/10/19 15:30 90 28 126/67 (86) 100 11/10/19 15:28 89 30 60 11/10/19 15:00 82 23 101/65 (77) 100 11/10/19 15:00 101/65 11/10/19 14:00 78 25 106/60 (75) 100 11/10/19 14:00 106/60 11/10/19 13:30 78 29 108/61 (77) 100 11/10/19 13:00 119/69 11/10/19 13:00 119/69 11/10/19 13:00 83 29 119/69 (86) 100 11/10/19 12:30 88 28 122/72 (89) 100 11/10/19 12:00 78 11/10/19 12:00 99.0 84 25 114/73 (87) 100 11/10/19 12:00 Mechanical Ventilator 11/10/19 12:00 114/73 11/10/19 12:00 114/73 11/10/19 12:00 60 11/10/19 11:30 77 23 101/59 (73) 100 11/10/19 11:29 82 25 40 11/10/19 11:00 81 24 104/63 (77) 100 11/10/19 11:00 104/63 11/10/19 10:30 82 25 91/54 (66) 100 11/10/19 10:15 92 27 101/56 (71) 100 11/10/19 10:00 101/56 11/10/19 10:00 99.1 82 26 91/55 (67) 99 11/10/19 09:15 92 27 121/75 (90) 100 88 Labs: Labs Test 11/09/19 06:30 11/09/19 06:34 11/09/19 18:20 11/10/19 04:25 Lactic Acid Level 0.90 mmol/L (0.4-2.0) White Blood Count 34.9 K/UL (4.8-10.8) 22.6 K/UL (4.8-10.8) Red Blood Count 2.27 M/UL (4.70-6.10) 1.98 M/UL (4.70-6.10) Hemoglobin 7.2 G/DL (14.2-18.0) 6.3 G/DL (14.2-18.0) Hematocrit 21.1 % (42.0-52.0) 18.8 % (42.0-52.0) Mean Corpuscular Volume 93 FL (80-99) 95 FL (80-99) Mean Corpuscular Hemoglobin 31.8 PG (27.0-31.0) 31.5 PG (27.0-31.0) Mean Corpuscular Hemoglobin Concent 34.4 G/DL (32.0-36.0) 33.2 G/DL (32.0-36.0) Red Cell Distribution Width 14.0 % (11.6-14.8) 14.5 % (11.6-14.8) Platelet Count 350 K/UL (150-450) 309 K/UL (150-450) Mean Platelet Volume 5.1 FL (6.5-10.1) 4.9 FL (6.5-10.1) Neutrophils (%) (Auto) % (45.0-75.0) % (45.0-75.0) Lymphocytes (%) (Auto) % (20.0-45.0) % (20.0-45.0) Monocytes (%) (Auto) % (1.0-10.0) % (1.0-10.0) Eosinophils (%) (Auto) % (0.0-3.0) % (0.0-3.0) Basophils (%) (Auto) % (0.0-2.0) % (0.0-2.0) Differential Total Cells Counted 100 100 Neutrophils % (Manual) 95 % (45-75) 85 % (45-75) Lymphocytes % (Manual) 2 % (20-45) 10 % (20-45) Monocytes % (Manual) 2 % (1-10) 5 % (1-10) Eosinophils % (Manual) 1 % (0-3) 0 % (0-3) Basophils % (Manual) 0 % (0-2) 0 % (0-2) Band Neutrophils 0 % (0-8) 0 % (0-8) Platelet Estimate Adequate Adequate Platelet Morphology Normal Normal Red Blood Cell Morphology Normal Prothrombin Time 12.1 SEC (9.30-11.50) Prothromb Time International Ratio 1.1 (0.9-1.1) Activated Partial Thromboplast Time 33 SEC (23-33) Sodium Level 143 MMOL/L (136-145) 148 MMOL/L (136-145) Potassium Level 5.1 MMOL/L (3.5-5.1) 4.1 MMOL/L (3.5-5.1) Chloride Level 109 MMOL/L (98-107) 116 MMOL/L (98-107) Carbon Dioxide Level 23 MMOL/L (21-32) 19 MMOL/L (21-32) Anion Gap 11 mmol/L (5-15) 13 mmol/L (5-15) Blood Urea Nitrogen 128 mg/dL (7-18) 103 mg/dL (7-18) Creatinine 3.0 MG/DL (0.55-1.30) 2.5 MG/DL (0.55-1.30) Estimat Glomerular Filtration Rate 20.4 mL/min (>60) 25.2 mL/min (>60) Glucose Level 138 MG/DL (74-106) 97 MG/DL (74-106) Calcium Level 8.6 MG/DL (8.5-10.1) 8.4 MG/DL (8.5-10.1) Total Bilirubin 0.2 MG/DL (0.2-1.0) Aspartate Amino Transf (AST/SGOT) 26 U/L (15-37) Alanine Aminotransferase (ALT/SGPT) 26 U/L (12-78) Alkaline Phosphatase 90 U/L (46-116) Total Protein 8.2 G/DL (6.4-8.2) Albumin 1.6 G/DL (3.4-5.0) Globulin 6.6 g/dL Albumin/Globulin Ratio 0.2 (1.0-2.7) Urine Color Pale yellow Urine Appearance Slightly cloudy Urine pH 5 (4.5-8.0) Urine Specific [place] 1.010 (1.005-1.035) Urine Protein 2+ (NEGATIVE) Urine Glucose (UA) Negative (NEGATIVE) Urine Ketones Negative (NEGATIVE) Urine Blood 4+ (NEGATIVE) Urine Nitrite Negative (NEGATIVE) Urine Bilirubin Negative (NEGATIVE) Urine Urobilinogen Normal MG/DL (0.0-1.0) Urine Leukocyte Esterase 2+ (NEGATIVE) Urine RBC 5-10 /HPF (0 - 0) Urine WBC Tntc /HPF (0 - 0) Urine Squamous Epithelial Cells None /LPF (NONE/OCC) Urine Bacteria Moderate /HPF (NONE) Urine Random Sodium 68 mmol/L (20-110) Urine Creatinine 42.1 MG/DL (30.0-125.0) Hypochromasia 4+ Anisocytosis 1+ Spherocytes 3+ Test 11/10/19 08:43 11/10/19 10:40 11/11/19 04:33 Arterial Blood pH 7.264 (7.350-7.450) 7.324 (7.350-7.450) Arterial Blood Partial Pressure CO2 36.5 mmHg (35.0-45.0) 36.7 mmHg (35.0-45.0) Arterial Blood Partial Pressure O2 99.8 mmHg (75.0-100.0) 198.9 mmHg (75.0-100.0) Arterial Blood HCO3 16.2 mmol/L (22.0-26.0) 18.7 mmol/L (22.0-26.0) Arterial Blood Oxygen Saturation 96.6 % (95-100) 99.1 % (95-100) Arterial Blood Base Excess -10.0 (-2-2) -6.8 (-2-2) Urbano Test Positive Positive White Blood Count 17.4 K/UL (4.8-10.8) Red Blood Count 2.69 M/UL (4.70-6.10) Hemoglobin 8.4 G/DL (14.2-18.0) Hematocrit 24.7 % (42.0-52.0) Mean Corpuscular Volume 92 FL (80-99) Mean Corpuscular Hemoglobin 31.1 PG (27.0-31.0) Mean Corpuscular Hemoglobin Concent 33.9 G/DL (32.0-36.0) Red Cell Distribution Width 15.3 % (11.6-14.8) Platelet Count 289 K/UL (150-450) Mean Platelet Volume 4.9 FL (6.5-10.1) Neutrophils (%) (Auto) 83.5 % (45.0-75.0) Lymphocytes (%) (Auto) 10.1 % (20.0-45.0) Monocytes (%) (Auto) 5.0 % (1.0-10.0) Eosinophils (%) (Auto) 1.0 % (0.0-3.0) Basophils (%) (Auto) 0.4 % (0.0-2.0) Sodium Level 150 MMOL/L (136-145) Potassium Level 4.0 MMOL/L (3.5-5.1) Chloride Level 119 MMOL/L (98-107) Carbon Dioxide Level 22 MMOL/L (21-32) Anion Gap 9 mmol/L (5-15) Blood Urea Nitrogen 92 mg/dL (7-18) Creatinine 2.4 MG/DL (0.55-1.30) Estimat Glomerular Filtration Rate 26.4 mL/min (>60) Glucose Level 103 MG/DL (74-106) Calcium Level 8.0 MG/DL (8.5-10.1) Total Bilirubin 0.3 MG/DL (0.2-1.0) Aspartate Amino Transf (AST/SGOT) 18 U/L (15-37) Alanine Aminotransferase (ALT/SGPT) 18 U/L (12-78) Alkaline Phosphatase 71 U/L (46-116) Total Protein 7.0 G/DL (6.4-8.2) Albumin 1.4 G/DL (3.4-5.0) Globulin 5.6 g/dL Albumin/Globulin Ratio 0.2 (1.0-2.7) Random Vancomycin Level 18.7 ug/mL Objective: GENERAL: Ill-appearing male. HEENT: Negative. NECK: Supple. Tracheostomy midline. LUNGS: moderate breath sounds. Moderate air entry. no wheeze CARDIAC: RRR without murmurs. rubs gallops ABDOMEN: Soft. G-tube in place. No distention. no HSM EXTREMITIES: Contracted. Reduced skin turgor. NEUROLOGICAL: Poorly responsive, in pain. SKIN: Noted with wounds reviewed. Micro: Microbiology Date/Time Source Procedure Growth Status 11/09/19 08:45 Blood Blood Culture - Preliminary Resulted 11/09/19 08:12 Blood Blood Culture - Preliminary Gram Positive Cocci Resulted 11/09/19 12:15 Sputum Gram Stain - Final Resulted 11/09/19 12:15 Sputum Culture - Preliminary Gram Negative Bacillus 1 Resulted 11/09/19 08:12 Nasopharynx Coronavirus COVID-19 PCR ([facility]) - Final Complete 11/09/19 18:20 Urine,Clean Catch Urine Culture - Preliminary Gram Negative Bacillus 1 Resulted Mansoor Martinez MD November 11, 2019 09:11
[2019-11-11] MEDS: Heparin 5000 units/ml inj SUBQ SCH ×2 (09:12→20:21)
--- NOTE | 2019-11-11 09:53 | Infectious Diseases Prog Note ---
Assessment/Plan Assessment/Plan A 1. pneumonia with gram negative COVID19 X 1: negative 2. Ventilator dependent respiratory failure 3. leucocytosis improving 4. diabetes mellitus 5. seizures 6. CHF 7. UTI 8. Bacteremia 9. Anemia P 1. continue vancomycin iv & Zosyn, 2. will follow up cultures 3. continue isolation Subjective ROS Limited/Unobtainable: Yes Constitutional: Denies: fever Cardiovascular: Reports: other - off of pressor Allergies: Coded Allergies: No Known Allergies (Unverified , 02/23/12) Objective Vital Signs Last 24 Hour Vital Signs Date Time Temp Pulse Resp B/P (MAP) Pulse Ox O2 Delivery O2 Flow Rate FiO2 11/11/19 09:13 90 119/63 11/11/19 07:20 88 30 60 11/11/19 07:00 84 30 118/63 (81) 100 11/11/19 07:00 118/63 11/11/19 06:30 88 31 105/68 (80) 100 11/11/19 06:30 88 31 11/11/19 06:00 101/65 11/11/19 06:00 85 28 106/65 (79) 100 11/11/19 05:45 125/75 11/11/19 05:30 89 28 122/71 (88) 100 11/11/19 05:00 87 26 107/68 (81) 100 11/11/19 05:00 107/68 11/11/19 04:30 88 37 119/73 (88) 100 11/11/19 04:00 Mechanical Ventilator 11/11/19 04:00 130/73 11/11/19 04:00 93 11/11/19 04:00 98.4 93 38 130/73 (92) 100 11/11/19 04:00 60 11/11/19 03:30 86 41 122/78 (93) 100 11/11/19 03:29 87 28 60 11/11/19 03:00 127/67 11/11/19 03:00 87 38 127/67 (87) 100 11/11/19 02:30 86 39 141/73 (95) 100 11/11/19 02:30 141/73 11/11/19 02:00 82 40 139/79 (99) 100 11/11/19 02:00 139/79 11/11/19 01:30 82 43 131/66 (87) 99 11/11/19 01:00 125/69 11/11/19 01:00 78 34 125/69 (87) 100 11/11/19 00:30 78 35 120/65 (83) 99 11/11/19 00:00 98.8 78 29 119/65 (83) 99 11/11/19 00:00 119/65 11/11/19 00:00 Mechanical Ventilator 11/11/19 00:00 60 11/11/19 00:00 78 11/10/19 23:30 75 29 101/56 (71) 100 11/10/19 23:25 70 24 60 11/10/19 23:00 94/62 11/10/19 23:00 74 25 94/62 (73) 100 11/10/19 22:30 73 25 96/58 (71) 100 11/10/19 22:00 79 33 113/59 (77) 100 11/10/19 22:00 113/59 11/10/19 21:30 78 35 117/62 (80) 97 11/10/19 21:00 117/63 11/10/19 21:00 80 31 117/63 (81) 94 11/10/19 20:30 76 32 104/64 (77) 100 11/10/19 20:00 Mechanical Ventilator 11/10/19 20:00 98.6 76 25 101/55 (70) 100 11/10/19 20:00 101/55 11/10/19 20:00 60 11/10/19 19:39 74 11/10/19 19:30 80 33 100/56 (71) 100 11/10/19 19:29 75 24 60 11/10/19 19:00 109/59 11/10/19 19:00 82 35 107/63 (78) 100 11/10/19 19:00 82 35 107/63 (78) 100 11/10/19 18:30 88 26 110/64 (79) 100 11/10/19 18:00 90 32 118/67 (84) 100 11/10/19 18:00 118/67 11/10/19 17:30 90 34 120/72 (88) 100 11/10/19 17:15 90 34 122/74 (90) 100 11/10/19 17:11 145/82 11/10/19 17:00 98 32 145/82 (103) 95 11/10/19 17:00 145/82 11/10/19 16:30 92 30 121/85 (97) 100 11/10/19 16:00 Mechanical Ventilator 11/10/19 16:00 120/70 11/10/19 16:00 60 11/10/19 16:00 98.1 93 36 120/70 (87) 100 11/10/19 16:00 70 11/10/19 15:30 90 28 126/67 (86) 100 11/10/19 15:28 89 30 60 11/10/19 15:00 82 23 101/65 (77) 100 11/10/19 15:00 101/65 11/10/19 14:00 78 25 106/60 (75) 100 11/10/19 14:00 106/60 11/10/19 13:30 78 29 108/61 (77) 100 11/10/19 13:00 119/69 11/10/19 13:00 119/69 11/10/19 13:00 83 29 119/69 (86) 100 11/10/19 12:30 88 28 122/72 (89) 100 11/10/19 12:00 78 11/10/19 12:00 99.0 84 25 114/73 (87) 100 11/10/19 12:00 Mechanical Ventilator 11/10/19 12:00 114/73 11/10/19 12:00 114/73 11/10/19 12:00 60 11/10/19 11:30 77 23 101/59 (73) 100 11/10/19 11:29 82 25 40 11/10/19 11:00 81 24 104/63 (77) 100 11/10/19 11:00 104/63 11/10/19 10:30 82 25 91/54 (66) 100 11/10/19 10:15 92 27 101/56 (71) 100 11/10/19 10:00 101/56 11/10/19 10:00 99.1 82 26 91/55 (67) 99 Height (Feet): 5 Height (Inches): 4.00 Weight (Pounds): 124 HEENT: status post trach, other - tongue guard Respiratory/Chest: other - on ventilator Cardiovascular: normal rate Abdomen: soft, non tender, other - GT feeding Extremities: other - edema Neurologic/Psychiatric: unresponsiveness Microbiology Date/Time Source Procedure Growth Status 11/09/19 08:45 Blood Blood Culture - Preliminary Resulted 11/09/19 08:12 Blood Blood Culture - Preliminary Gram Positive Cocci Resulted 11/09/19 12:15 Sputum Gram Stain - Final Resulted 11/09/19 12:15 Sputum Culture - Preliminary Gram Negative Bacillus 1 Resulted 11/09/19 08:12 Nasopharynx Coronavirus COVID-19 PCR ([facility]) - Final Complete 11/09/19 18:20 Urine,Clean Catch Urine Culture - Preliminary Gram Negative Bacillus 1 Resulted Laboratory Tests Test 11/10/19 10:40 11/11/19 04:33 Arterial Blood pH 7.324 (7.350-7.450) Arterial Blood Partial Pressure CO2 36.7 mmHg (35.0-45.0) Arterial Blood Partial Pressure O2 198.9 mmHg (75.0-100.0) H Arterial Blood HCO3 18.7 mmol/L (22.0-26.0) L Arterial Blood Oxygen Saturation 99.1 % (95-100) Arterial Blood Base Excess -6.8 (-2-2) L [place] Test Positive White Blood Count 17.4 K/UL (4.8-10.8) H Red Blood Count 2.69 M/UL (4.70-6.10) L Hemoglobin 8.4 G/DL (14.2-18.0) #L Hematocrit 24.7 % (42.0-52.0) #L Mean Corpuscular Volume 92 FL (80-99) Mean Corpuscular Hemoglobin 31.1 PG (27.0-31.0) H Mean Corpuscular Hemoglobin Concent 33.9 G/DL (32.0-36.0) Red Cell Distribution Width 15.3 % (11.6-14.8) H Platelet Count 289 K/UL (150-450) Mean Platelet Volume 4.9 FL (6.5-10.1) L Neutrophils (%) (Auto) 83.5 % (45.0-75.0) H Lymphocytes (%) (Auto) 10.1 % (20.0-45.0) L Monocytes (%) (Auto) 5.0 % (1.0-10.0) Eosinophils (%) (Auto) 1.0 % (0.0-3.0) Basophils (%) (Auto) 0.4 % (0.0-2.0) Sodium Level 150 MMOL/L (136-145) H Potassium Level 4.0 MMOL/L (3.5-5.1) Chloride Level 119 MMOL/L (98-107) H Carbon Dioxide Level 22 MMOL/L (21-32) Anion Gap 9 mmol/L (5-15) Blood Urea Nitrogen 92 mg/dL (7-18) H Creatinine 2.4 MG/DL (0.55-1.30) H Estimat Glomerular Filtration Rate 26.4 mL/min (>60) Glucose Level 103 MG/DL (74-106) Calcium Level 8.0 MG/DL (8.5-10.1) L Total Bilirubin 0.3 MG/DL (0.2-1.0) Aspartate Amino Transf (AST/SGOT) 18 U/L (15-37) Alanine Aminotransferase (ALT/SGPT) 18 U/L (12-78) Alkaline Phosphatase 71 U/L (46-116) Total Protein 7.0 G/DL (6.4-8.2) Albumin 1.4 G/DL (3.4-5.0) L Globulin 5.6 g/dL Albumin/Globulin Ratio 0.2 (1.0-2.7) L Thyroid Stimulating Hormone (TSH) 17.702 uiU/mL (0.358-3.740) Random Vancomycin Level 18.7 ug/mL Current Medications Medications (Trade) Dose Ordered Sig/Lanny Route PRN Reason Start Time Stop Time Status Last Admin Dose Admin Acetaminophen (Tylenol) 650 mg Q4H PRN ORAL Temp >100.5 11/09/19 11:15 12/09/19 11:14 Al Hydroxide/Mg Hydroxide (Mylanta) 30 ml Q4H PRN ORAL Nausea & Vomiting 11/09/19 11:15 12/09/19 11:14 Amlodipine Besylate (Norvasc) 5 mg DAILY ORAL 11/10/19 09:00 12/10/19 08:59 11/11/19 09:13 Ascorbic Acid (Vitamin C) 500 mg DAILY ORAL 11/10/19 09:00 12/10/19 08:59 11/11/19 09:10 Chlorhexidine Gluconate (Kayla-Hex 2%) 1 applic DAILY@2000 TOPIC 11/09/19 20:00 02/07/20 19:59 11/10/19 20:00 Docusate Sodium (Colace) 100 mg TWICE A DAY NG 11/10/19 09:00 12/10/19 08:59 11/11/19 09:10 Heparin Sodium (Porcine) (Heparin 5000 units/ml) 5,000 units EVERY 12 HOURS SUBQ 11/09/19 21:00 12/24/19 20:59 11/11/19 09:12 Levetiracetam (Keppra) 750 mg Q12HR NG 11/09/19 21:00 12/09/19 20:59 11/11/19 09:10 Levothyroxine Sodium (Synthroid) 75 mcg DAILY@0630 NG 11/10/19 06:30 12/10/19 06:29 11/11/19 05:32 Levothyroxine Sodium (Synthroid) 100 mcg DAILY@0630 NG 11/10/19 06:30 12/10/19 06:29 11/11/19 05:32 Multivitamins (Multivitamins W/ Minerals 15ml Liquid) 15 ml DAILY GT 11/10/19 09:00 12/10/19 08:59 11/11/19 09:10 Norepinephrine Bitartrate 4 mg/ Dextrose 250 ml @ 0 mls/hr Q24H IV 11/09/19 11:15 12/09/19 11:14 11/10/19 17:11 Pantoprazole (Protonix) 40 mg DAILY IVP 11/10/19 09:00 12/10/19 08:59 11/11/19 09:11 Piperacillin Sod/ Tazobactam Sod 3.375 gm/Sodium Chloride 110 ml @ 27.5 mls/hr Q12H IVPB 11/10/19 18:00 11/17/19 17:59 11/11/19 05:32 Sodium Chloride 1,000 ml @ 100 mls/hr Q10H IV 11/11/19 08:40 12/11/19 08:39 Sodium Citrate (Bicitra) 30 ml TID GT 11/10/19 20:00 12/10/19 18:59 11/11/19 09:10 Vancomycin HCl (Vanco rx to dose) 1 ea DAILY PRN MISC Per rx protocol 11/09/19 11:15 12/09/19 11:14 Janes Dumas MD November 11, 2019 09:53
--- NOTE | 2019-11-11 10:12 | NUR ---
NURSE NOTES: Seen by Dr Jason , will follow up with new order.Turned and repositioned,no significant.Keep HOB elevated at 35 degree to prevent aspiration
--- NOTE | 2019-11-11 12:10 | NUR ---
NURSE NOTES: No significant change in condition.Will continue to monitor.Turned and repositioned,HOB elevated to prevent aspiration.
--- NOTE | 2019-11-11 14:02 | NUR ---
NURSE NOTES: Adls done,turned and repositioned.HOB elevated to prevent aspiration.Call light within easy reach, will continue same care plan, no significant change in condition.
--- NOTE | 2019-11-11 14:28 | NUR ---
CASE MANAGEMENT: REVIEW 11/11/19 SI: SEPSIS . TONGUE LACERATION . ANEMIA . URINE CX (+) . BLOOD CX (+) 99.3 90 24 108/65 100% MECH VENT FIO2 60 WBC 17.4 H/H 8.4/24.7 NA+ 150 CL- 119 BUN/CREAT 92/2.4 CA+ 8.0 ALB 1.4 TSH 17.702 IS: IV VANCO X1 IV ZOSYN BID LEVOPHED IV Q24HR TITRATED IV NS @ 100ML/HR BICITRA GT TID IV PROTONIX QD NORVASC PO QD G-TUBE FEEDING \: ICU STATUS [facility]: [facility]: COVID-19 - NOT DETECTED ABG IN AM CHEST X-RAY IN AM CONT WOUND CARE
--- NOTE | 2019-11-11 15:30 | NUR ---
NURSE NOTES: Per Dr Alesia Elam, repeat COV-19 screening on 11/12/19.Order noted and carried out
--- NOTE | 2019-11-11 16:14 | NUR ---
NURSE NOTES: Patient tolerate well feeding at this time with no residual. Mouth care done,good perineal care provided.Turned and repositioned.HOB elevated at 35 degree to prevent aspiration.Will continue same plan of care , no significant change in condition at this time.
--- NOTE | 2019-11-11 16:43 | NUR ---
*-* INSURANCE *-* ALL AVAILABLE CLINICALS HAVE BEEN FAXED TO: [facility] [phone] Work Work Fax
--- NOTE | 2019-11-11 18:01 | NUR ---
NURSE NOTES: ADLs done, suctioned pt as tolerated.Mouth care provided, GT tube feeding held or residual 100cc, will continue monitor.Turned and repositioned for wound and skin management.HOB elevated at 35 degree to prevent aspiration.Call light within easy reach.No significant change in condition, will continue with same care plan
--- NOTE | 2019-11-11 19:21 | NUR ---
HAND-OFF: Report given to MERLENE Bertrand.
--- NOTE | 2019-11-11 19:35 | Consultation ---
History of Present Illness General Chief Complaint: General Complaint Present Illness HPI 79M admitted to ICU at [facility] septic on support surgery called to eval and assist with care plan known to me frm past care decondition since and worse Allergies: Coded Allergies: No Known Allergies (Unverified , 02/23/12) Medication History Scheduled Acetaminophen* (Tylenol*), 500 MG PO Q8H, (Reported) Amlodipine Besylate* (Amlodipine Besylate*), 5 MG GT DAILY, (Reported) Arginine/Glutamine/Calcium Hmb (Kirill Packet), 1 EACH GT BID, (Reported) Ascorbic Acid* (Vitamin C*), 500 MG GT DAILY, (Reported) Bisacodyl* (Dulcolax*), 10 MG ORAL DAILY, (Reported) Cephalexin* (Keflex*), 500 MG ORAL EVERY 12 HOURS Cranberry Extract (Cranberry), 425 MG GT DAILY, (Reported) Docusate Sodium* (Colace*), 100 MG ORAL TWICE A DAY, (Reported) Docusate Sodium* (Docusate Sodium*), 100 MG GT THREE TIMES A DAY, (Reported) Famotidine* (Pepcid 20mg tablet*), 20 MG ORAL DAILY, (Reported) Famotidine* (Pepcid 20mg tablet*), 10 MG ORAL BID, (Reported) Levetiracetam (Keppra), 750 MG GT EVERY 12 HOURS, (Reported) Levothyroxine Sodium* (Levothyroxine Sodium*), 175 MCG GT DAILY, (Reported) Magnesium Hydroxide* (Milk Of Magnesia*), 30 ML ORAL DAILY, (Reported) Multivitamin Liquid* (Multi-Delyn*), 15 ML GT DAILY, (Reported) Multivitamins* (Multivitamins*), 1 EACH PO DAILY, (Reported) Na Phos,M-B/Na Phos,Di-Ba* (Fleet Enema*), 133 ML RECTAL DAILY, (Reported) Thiamine Hcl* (Vitamin B-1*), 100 MG PO DAILY, (Reported) Scheduled PRN Acetaminophen* (Acetaminophen*), 20 MG GT Q6H PRN for Mild Pain/Temp > 100.5, ( Reported) Miscellaneous Medications Insulin Aspart (Novolog), 100 UNIT SQ, (Reported) Lenalidomide (Revlimid), 10 MG PO, (Reported) Levetiracetam (Keppra), 750 MG ORAL, (Reported) Patient History Limited by: medical condition History Provided By: Medical Record, PMD Healthcare decision maker Resuscitation status Advanced Directive on File Review of Systems All Other Systems: negative except mentioned in HPI ROS Narrative unable to obtain given medical condition Physical Exam General Appearance: mild distress Lines, tubes and drains: other HEENT: mucous membranes moist Neck: normal inspection Respiratory/Chest: decreased breath sounds Cardiovascular/Chest: tachycardia Abdomen: soft, no organomegaly, no mass Extremities: inflammation, slow capillary refill Skin Exam: warm/dry Neurologic: unresponsiveness Last 24 Hour Vital Signs Date Time Temp Pulse Resp B/P (MAP) Pulse Ox O2 Delivery O2 Flow Rate FiO2 11/11/19 19:00 78 25 86/48 (61) 100 11/11/19 18:00 90 25 124/77 (93) 100 11/11/19 17:00 91 33 124/56 (78) 100 11/11/19 16:00 Mechanical Ventilator 11/11/19 16:00 98.8 86 24 108/60 (76) 100 11/11/19 16:00 60 11/11/19 16:00 82 11/11/19 15:10 85 25 50 11/11/19 15:00 78 25 93/45 (61) 100 11/11/19 14:00 75 25 89/49 (62) 100 11/11/19 13:02 93 28 60 11/11/19 13:00 77 26 118/73 (88) 100 11/11/19 12:00 99.3 90 24 108/65 (79) 100 11/11/19 12:00 Mechanical Ventilator 11/11/19 12:00 60 11/11/19 12:00 91 11/11/19 11:25 93 25 60 11/11/19 11:00 93 31 113/63 (80) 100 11/11/19 10:00 92 25 108/65 (79) 100 11/11/19 09:13 90 119/63 11/11/19 09:00 88 24 119/63 (81) 100 11/11/19 08:00 60 11/11/19 08:00 Mechanical Ventilator 11/11/19 08:00 99.6 87 26 122/74 (90) 100 11/11/19 08:00 88 11/11/19 07:30 89 30 124/71 (88) 100 11/11/19 07:30 124/71 11/11/19 07:20 88 30 60 11/11/19 07:00 84 30 118/63 (81) 100 11/11/19 07:00 118/63 11/11/19 06:30 88 31 105/68 (80) 100 11/11/19 06:30 88 31 11/11/19 06:00 101/65 11/11/19 06:00 85 28 106/65 (79) 100 11/11/19 05:45 125/75 11/11/19 05:30 89 28 122/71 (88) 100 11/11/19 05:00 87 26 107/68 (81) 100 11/11/19 05:00 107/68 11/11/19 04:30 88 37 119/73 (88) 100 11/11/19 04:00 Mechanical Ventilator 11/11/19 04:00 130/73 11/11/19 04:00 93 11/11/19 04:00 98.4 93 38 130/73 (92) 100 11/11/19 04:00 60 11/11/19 03:30 86 41 122/78 (93) 100 11/11/19 03:29 87 28 60 11/11/19 03:00 127/67 11/11/19 03:00 87 38 127/67 (87) 100 11/11/19 02:30 86 39 141/73 (95) 100 11/11/19 02:30 141/73 11/11/19 02:00 82 40 139/79 (99) 100 11/11/19 02:00 139/79 11/11/19 01:30 82 43 131/66 (87) 99 11/11/19 01:00 125/69 11/11/19 01:00 78 34 125/69 (87) 100 11/11/19 00:30 78 35 120/65 (83) 99 11/11/19 00:00 98.8 78 29 119/65 (83) 99 11/11/19 00:00 119/65 11/11/19 00:00 Mechanical Ventilator 11/11/19 00:00 60 11/11/19 00:00 78 11/10/19 23:30 75 29 101/56 (71) 100 11/10/19 23:25 70 24 60 11/10/19 23:00 94/62 11/10/19 23:00 74 25 94/62 (73) 100 11/10/19 22:30 73 25 96/58 (71) 100 11/10/19 22:00 79 33 113/59 (77) 100 11/10/19 22:00 113/59 11/10/19 21:30 78 35 117/62 (80) 97 11/10/19 21:00 117/63 11/10/19 21:00 80 31 117/63 (81) 94 11/10/19 20:30 76 32 104/64 (77) 100 11/10/19 20:00 Mechanical Ventilator 11/10/19 20:00 98.6 76 25 101/55 (70) 100 11/10/19 20:00 101/55 11/10/19 20:00 60 11/10/19 19:39 74 Intake and Output 11/10/19 11/11/19 19:00 07:00 Intake Total 2828.09 ml 2591.58 ml Output Total 500 ml 650 ml Balance 2328.09 ml 1941.58 ml IV Total 2458.09 ml 2041.58 ml Tube Feeding 210 ml 350 ml Other 160 ml 200 ml Output Urine Total 500 ml 650 ml # Bowel Movements 1 Laboratory Tests Test 11/11/19 04:33 White Blood Count 17.4 K/UL (4.8-10.8) H Red Blood Count 2.69 M/UL (4.70-6.10) L Hemoglobin 8.4 G/DL (14.2-18.0) #L Hematocrit 24.7 % (42.0-52.0) #L Mean Corpuscular Volume 92 FL (80-99) Mean Corpuscular Hemoglobin 31.1 PG (27.0-31.0) H Mean Corpuscular Hemoglobin Concent 33.9 G/DL (32.0-36.0) Red Cell Distribution Width 15.3 % (11.6-14.8) H Platelet Count 289 K/UL (150-450) Mean Platelet Volume 4.9 FL (6.5-10.1) L Neutrophils (%) (Auto) 83.5 % (45.0-75.0) H Lymphocytes (%) (Auto) 10.1 % (20.0-45.0) L Monocytes (%) (Auto) 5.0 % (1.0-10.0) Eosinophils (%) (Auto) 1.0 % (0.0-3.0) Basophils (%) (Auto) 0.4 % (0.0-2.0) Sodium Level 150 MMOL/L (136-145) H Potassium Level 4.0 MMOL/L (3.5-5.1) Chloride Level 119 MMOL/L (98-107) H Carbon Dioxide Level 22 MMOL/L (21-32) Anion Gap 9 mmol/L (5-15) Blood Urea Nitrogen 92 mg/dL (7-18) H Creatinine 2.4 MG/DL (0.55-1.30) H Estimat Glomerular Filtration Rate 26.4 mL/min (>60) Glucose Level 103 MG/DL (74-106) Calcium Level 8.0 MG/DL (8.5-10.1) L Total Bilirubin 0.3 MG/DL (0.2-1.0) Aspartate Amino Transf (AST/SGOT) 18 U/L (15-37) Alanine Aminotransferase (ALT/SGPT) 18 U/L (12-78) Alkaline Phosphatase 71 U/L (46-116) Total Protein 7.0 G/DL (6.4-8.2) Albumin 1.4 G/DL (3.4-5.0) L Globulin 5.6 g/dL Albumin/Globulin Ratio 0.2 (1.0-2.7) L Thyroid Stimulating Hormone (TSH) 17.702 uiU/mL (0.358-3.740) Random Vancomycin Level 18.7 ug/mL Height (Feet): 5 Height (Inches): 4.00 Weight (Pounds): 124 Medications Current Medications Medications (Trade) Dose Ordered Sig/Lanny Route PRN Reason Start Time Stop Time Status Last Admin Dose Admin Acetaminophen (Tylenol) 650 mg Q4H PRN ORAL Temp >100.5 11/09/19 11:15 12/09/19 11:14 Al Hydroxide/Mg Hydroxide (Mylanta) 30 ml Q4H PRN ORAL Nausea & Vomiting 11/09/19 11:15 12/09/19 11:14 Ascorbic Acid (Vitamin C) 500 mg DAILY ORAL 11/10/19 09:00 12/10/19 08:59 11/11/19 09:10 Chlorhexidine Gluconate (Kayla-Hex 2%) 1 applic DAILY@2000 TOPIC 11/09/19 20:00 02/07/20 19:59 11/10/19 20:00 Docusate Sodium (Colace) 100 mg TWICE A DAY NG 11/10/19 09:00 12/10/19 08:59 11/11/19 17:27 Heparin Sodium (Porcine) (Heparin 5000 units/ml) 5,000 units EVERY 12 HOURS SUBQ 11/09/19 21:00 12/24/19 20:59 11/11/19 09:12 Levetiracetam (Keppra) 750 mg Q12HR NG 11/09/19 21:00 12/09/19 20:59 11/11/19 09:10 Levothyroxine Sodium (Synthroid) 75 mcg DAILY@0630 NG 11/10/19 06:30 12/10/19 06:29 11/11/19 05:32 Levothyroxine Sodium (Synthroid) 100 mcg DAILY@0630 NG 11/10/19 06:30 12/10/19 06:29 11/11/19 05:32 Multivitamins (Multivitamins W/ Minerals 15ml Liquid) 15 ml DAILY GT 11/10/19 09:00 12/10/19 08:59 11/11/19 09:10 Norepinephrine Bitartrate 4 mg/ Dextrose 250 ml @ 0 mls/hr Q24H IV 11/09/19 11:15 12/09/19 11:14 11/10/19 17:11 Pantoprazole (Protonix) 40 mg DAILY IVP 11/10/19 09:00 12/10/19 08:59 11/11/19 09:11 Piperacillin Sod/ Tazobactam Sod 3.375 gm/Sodium Chloride 110 ml @ 27.5 mls/hr Q12H IVPB 11/10/19 18:00 11/17/19 17:59 11/11/19 17:27 Sodium Chloride 1,000 ml @ 100 mls/hr Q10H IV 11/11/19 08:40 12/11/19 08:39 11/11/19 18:46 Sodium Citrate (Bicitra) 30 ml TID GT 11/10/19 20:00 6/12/20 18:59 11/11/19 17:27 Vancomycin HCl (Vanco rx to dose) 1 ea DAILY PRN MISC Per rx protocol 11/09/19 11:15 12/09/19 11:14 Assessment/Plan Problem List: (1) Elevated LFTs ICD Codes: R94.5 - Abnormal results of liver function studies SNOMED: 290253257, 965569824 (2) Malnutrition ICD Codes: E46 - Unspecified protein-calorie malnutrition SNOMED: 35554567 (3) Respiratory insufficiency ICD Codes: R06.89 - Other abnormalities of breathing SNOMED: 709453901 (4) Tracheal stenosis ICD Codes: J39.8 - Other specified diseases of upper respiratory tract SNOMED: 97919248 (5) Suspected COVID-19 virus infection Assessment & Plan: pending testing ICD Codes: R68.89 - Other general symptoms and signs SNOMED: 478343895 (6) CKD (chronic kidney disease) stage 3, GFR 30-59 ml/min ICD Codes: N18.3 - Chronic kidney disease, stage 3 (moderate) SNOMED: 463974217 (7) Chronic respiratory failure ICD Codes: J96.10 - Chronic respiratory failure, unspecified whether with hypoxia or hypercapnia SNOMED: 64241218, 7523574 (8) Sepsis ICD Codes: A41.9 - Sepsis, unspecified organism SNOMED: 94007366, 4599583 (9) Tongue laceration ICD Codes: S01.512A - Laceration without foreign body of oral cavity, initial encounter SNOMED: 745335670, 6606249 (10) Acute on chronic anemia ICD Codes: D64.9 - Anemia, unspecified SNOMED: 735991928, 8241757 (11) Dehydration ICD Codes: E86.0 - Dehydration SNOMED: 04422659 (12) UTI (urinary tract infection) ICD Codes: N39.0 - Urinary tract infection, site not specified SNOMED: 77924488, 125970465 (13) Metabolic acidosis ICD Codes: E87.2 - Acidosis SNOMED: 79666435 (14) Pneumonia ICD Codes: J18.9 - Pneumonia, unspecified organism SNOMED: 907679846 (15) Protein-calorie malnutrition, severe ICD Codes: E43 - Unspecified severe protein-calorie malnutrition SNOMED: 920393402, 519062658, 722278267 (16) AUDREY (acute kidney injury) ICD Codes: N17.9 - Acute kidney failure, unspecified SNOMED: 9991944, 90844536 (17) Decubitus skin ulcer Assessment & Plan: Pt presented on admission with contractures. Resolving full thickness pressure injury Sacrum and R buttocks. Hyperpigmentation with scarring noted with small open area that is moist and viable within injured field. darker skin tone without induration periwound. Resolving pressure injury R heel. Hyperpigmentation with small area of erythema within base of injury with loose callused and dry necrotic edges. Full thickness pressure injury R Hallux. Base of wound is dl with scattered slough. Bone is palpable. Dark, dry brown borders. Full thickness lateral and plantar R 1st metatarsal.Base of wound is 25% necrotic ,75% dl. An area of necrosis noted at nail matrix. L heel is boggy with non-blanching erythema. Tx.Plan: Apply Moisture Barrier Paste to Sacrum,R and L Buttocks. Cover with Optifoam drsgs. Change every 3 days and prn. Apply Betadine to R hallux and R 1st metatarsal. Cover with Optifoam drsg. Change every 3 days and prn. Apply Betadine to R heel. Cover R heel with Optifoam drsg. Change every 3 days and prn. Apply Cavilon Skin Barrier to L heel. Cover with Optifoam drsg. Change every 7 days and prn. Reposition at least every 2hours or as tolerated. Place pillow between knees. Off-load heels with pillow. ICD Codes: L89.90 - Pressure ulcer of unspecified site, unspecified stage SNOMED: 003655508 (18) Hypernatremia ICD Codes: E87.0 - Hyperosmolality and hypernatremia SNOMED: 556459200 (19) Renal insufficiency ICD Codes: N28.9 - Disorder of kidney and ureter, unspecified SNOMED: [id number], [id number] Rehan Geronimo November 11, 2019 19:35
--- NOTE | 2019-11-11 19:47 | Nephrology Progress Note ---
Assessment/Plan Problem List: (1) Metabolic acidosis (2) AUDREY (acute kidney injury) (3) UTI (urinary tract infection) (4) Pneumonia (5) Protein-calorie malnutrition, severe (6) Dehydration (7) Chronic respiratory failure (8) Sepsis (9) Acute on chronic anemia Plan continue hydration, bicarb, howard , broad spectrum atb,pulm care Subjective ROS Limited/Unobtainable: Yes Objective Objective Last 24 Hour Vital Signs Date Time Temp Pulse Resp B/P (MAP) Pulse Ox O2 Delivery O2 Flow Rate FiO2 11/11/19 19:11 78 24 50 11/11/19 19:00 78 25 86/48 (61) 100 11/11/19 18:00 90 25 124/77 (93) 100 11/11/19 17:00 91 33 124/56 (78) 100 11/11/19 16:00 Mechanical Ventilator 11/11/19 16:00 98.8 86 24 108/60 (76) 100 11/11/19 16:00 60 11/11/19 16:00 82 11/11/19 15:10 85 25 50 11/11/19 15:00 78 25 93/45 (61) 100 11/11/19 14:00 75 25 89/49 (62) 100 11/11/19 13:02 93 28 60 11/11/19 13:00 77 26 118/73 (88) 100 11/11/19 12:00 99.3 90 24 108/65 (79) 100 11/11/19 12:00 Mechanical Ventilator 11/11/19 12:00 60 11/11/19 12:00 91 11/11/19 11:25 93 25 60 11/11/19 11:00 93 31 113/63 (80) 100 11/11/19 10:00 92 25 108/65 (79) 100 11/11/19 09:13 90 119/63 11/11/19 09:00 88 24 119/63 (81) 100 11/11/19 08:00 60 11/11/19 08:00 Mechanical Ventilator 11/11/19 08:00 99.6 87 26 122/74 (90) 100 11/11/19 08:00 88 11/11/19 07:30 89 30 124/71 (88) 100 11/11/19 07:30 124/71 11/11/19 07:20 88 30 60 11/11/19 07:00 84 30 118/63 (81) 100 11/11/19 07:00 118/63 11/11/19 06:30 88 31 105/68 (80) 100 11/11/19 06:30 88 31 11/11/19 06:00 101/65 11/11/19 06:00 85 28 106/65 (79) 100 11/11/19 05:45 125/75 11/11/19 05:30 89 28 122/71 (88) 100 11/11/19 05:00 87 26 107/68 (81) 100 11/11/19 05:00 107/68 11/11/19 04:30 88 37 119/73 (88) 100 11/11/19 04:00 Mechanical Ventilator 11/11/19 04:00 130/73 11/11/19 04:00 93 11/11/19 04:00 98.4 93 38 130/73 (92) 100 11/11/19 04:00 60 11/11/19 03:30 86 41 122/78 (93) 100 11/11/19 03:29 87 28 60 11/11/19 03:00 127/67 11/11/19 03:00 87 38 127/67 (87) 100 11/11/19 02:30 86 39 141/73 (95) 100 11/11/19 02:30 141/73 11/11/19 02:00 82 40 139/79 (99) 100 11/11/19 02:00 139/79 11/11/19 01:30 82 43 131/66 (87) 99 11/11/19 01:00 125/69 11/11/19 01:00 78 34 125/69 (87) 100 11/11/19 00:30 78 35 120/65 (83) 99 11/11/19 00:00 98.8 78 29 119/65 (83) 99 11/11/19 00:00 119/65 11/11/19 00:00 Mechanical Ventilator 11/11/19 00:00 60 11/11/19 00:00 78 11/10/19 23:30 75 29 101/56 (71) 100 11/10/19 23:25 70 24 60 11/10/19 23:00 94/62 11/10/19 23:00 74 25 94/62 (73) 100 11/10/19 22:30 73 25 96/58 (71) 100 11/10/19 22:00 79 33 113/59 (77) 100 11/10/19 22:00 113/59 11/10/19 21:30 78 35 117/62 (80) 97 11/10/19 21:00 117/63 11/10/19 21:00 80 31 117/63 (81) 94 11/10/19 20:30 76 32 104/64 (77) 100 11/10/19 20:00 Mechanical Ventilator 11/10/19 20:00 98.6 76 25 101/55 (70) 100 11/10/19 20:00 101/55 11/10/19 20:00 60 Intake and Output 11/10/19 11/11/19 19:00 07:00 Intake Total 2828.09 ml 2591.58 ml Output Total 500 ml 650 ml Balance 2328.09 ml 1941.58 ml IV Total 2458.09 ml 2041.58 ml Tube Feeding 210 ml 350 ml Other 160 ml 200 ml Output Urine Total 500 ml 650 ml # Bowel Movements 1 Laboratory Tests 11/11/19 04:33: White Blood Count 17.4H, Red Blood Count 2.69L, Hemoglobin 8.4#L, Hematocrit 24.7#L, Mean Corpuscular Volume 92, Mean Corpuscular Hemoglobin 31.1H, Mean Corpuscular Hemoglobin Concent 33.9, Red Cell Distribution Width 15.3H, Platelet Count 289, Mean Platelet Volume 4.9L, Neutrophils (%) (Auto) 83.5H, Lymphocytes (%) (Auto) 10.1L, Monocytes (%) (Auto) 5.0, Eosinophils (%) (Auto) 1.0, Basophils (%) (Auto) 0.4, Sodium Level 150H, Potassium Level 4.0, Chloride Level 119H, Carbon Dioxide Level 22, Anion Gap 9, Blood Urea Nitrogen 92H, Creatinine 2.4H, Estimat Glomerular Filtration Rate 26.4, Glucose Level 103, Calcium Level 8.0L, Total Bilirubin 0.3, Aspartate Amino Transf (AST/SGOT) 18, Alanine Aminotransferase (ALT/SGPT) 18, Alkaline Phosphatase 71, Total Protein 7.0, Albumin 1.4L, Globulin 5.6, Albumin/Globulin Ratio 0.2L, Thyroid Stimulating Hormone (TSH) 17.702H, Random Vancomycin Level 18.7 Height (Feet): 5 Height (Inches): 4.00 Weight (Pounds): 124 General Appearance: lethargic Neck: normal alignment Cardiovascular: regular rhythm Respiratory/Chest: rhonchi - bilaterally Abdomen: soft Extremities: no edema Neurologic: unresponsive lC Gong MD November 11, 2019 19:47
--- NOTE | 2019-11-11 20:00 | NUR ---
NURSE NOTES: SBAR received from Elza BLUNT. Patient is awake, non-verbal, semi-obtunded. Is trached to ventilator Portex 8, AC 22, 450tv, 40%, peep of 8. GT running Vital AF at 55ml/hr. L IJ TLC infusing 1/2NS at 150ml/hr. RUA20G PIV and ARON 20G PIV noted and SL. Multiple decubitus noted, patient on low air loss mattress. Vitals are stable at this time. Isolation precautions noted. Condom cath in place. Will continue to monitor.
[2019-11-11] MEDS: Dyna-Hex 2% Top Sol 2oz TOPIC SCH (20:19)
--- NOTE | 2019-11-11 20:23 | General Progress Note ---
Assessment/Plan Problem List: (1) Renal insufficiency ICD Codes: N28.9 - Disorder of kidney and ureter, unspecified SNOMED: 886634847, 362702252 (2) Decubitus skin ulcer ICD Codes: L89.90 - Pressure ulcer of unspecified site, unspecified stage SNOMED: 527934589 (3) Hypernatremia ICD Codes: E87.0 - Hyperosmolality and hypernatremia SNOMED: 880887863 (4) Chronic respiratory failure ICD Codes: J96.10 - Chronic respiratory failure, unspecified whether with hypoxia or hypercapnia SNOMED: 23885992, 2839272 (5) Sepsis ICD Codes: A41.9 - Sepsis, unspecified organism SNOMED: 35936512, 5674209 (6) Tongue laceration ICD Codes: S01.512A - Laceration without foreign body of oral cavity, initial encounter SNOMED: 460764772, 8818200 (7) Dehydration ICD Codes: E86.0 - Dehydration SNOMED: 88286296 (8) Metabolic acidosis ICD Codes: E87.2 - Acidosis SNOMED: 66823315 (9) Pneumonia ICD Codes: J18.9 - Pneumonia, unspecified organism SNOMED: 301976007 (10) Protein-calorie malnutrition, severe ICD Codes: E43 - Unspecified severe protein-calorie malnutrition SNOMED: 413871366, 815815334, 689644923 (11) AUDREY (acute kidney injury) ICD Codes: N17.9 - Acute kidney failure, unspecified SNOMED: 7020185, 91355350 Status: stable Assessment/Plan: wean dopamine as BP tolerated iv abx follow up cultures vent support resp rx suctioning gt feeds monitor residuals sz rx skin care/wound care critical and guarded Subjective ROS Limited/Unobtainable: Yes Constitutional: Reports: malaise, weakness HEENT: Reports: no symptoms Cardiovascular: Reports: edema Respiratory: Reports: shortness of breath, sputum Gastrointestinal/Abdominal: Reports: difficulty swallowing Genitourinary: Reports: no symptoms Neurologic/Psychiatric: Reports: pre-existing deficit, seizure Endocrine: Reports: no symptoms Hematologic/Lymphatic: Reports: anemia Allergies: Coded Allergies: No Known Allergies (Unverified , 02/23/12) All Systems: reviewed and negative except above Subjective no events. on low dose pressors. no fevers. wbc trending down. on iv abx. multiple positive cultures. Objective Last 24 Hour Vital Signs Date Time Temp Pulse Resp B/P (MAP) Pulse Ox O2 Delivery O2 Flow Rate FiO2 11/11/19 19:11 78 24 50 11/11/19 19:00 78 25 86/48 (61) 100 11/11/19 18:00 90 25 124/77 (93) 100 11/11/19 17:00 91 33 124/56 (78) 100 11/11/19 16:00 Mechanical Ventilator 11/11/19 16:00 98.8 86 24 108/60 (76) 100 11/11/19 16:00 60 11/11/19 16:00 82 11/11/19 15:10 85 25 50 11/11/19 15:00 78 25 93/45 (61) 100 11/11/19 14:00 75 25 89/49 (62) 100 11/11/19 13:02 93 28 60 11/11/19 13:00 77 26 118/73 (88) 100 11/11/19 12:00 99.3 90 24 108/65 (79) 100 11/11/19 12:00 Mechanical Ventilator 11/11/19 12:00 60 11/11/19 12:00 91 11/11/19 11:25 93 25 60 11/11/19 11:00 93 31 113/63 (80) 100 11/11/19 10:00 92 25 108/65 (79) 100 11/11/19 09:13 90 119/63 11/11/19 09:00 88 24 119/63 (81) 100 11/11/19 08:00 60 11/11/19 08:00 Mechanical Ventilator 11/11/19 08:00 99.6 87 26 122/74 (90) 100 11/11/19 08:00 88 11/11/19 07:30 89 30 124/71 (88) 100 11/11/19 07:30 124/71 11/11/19 07:20 88 30 60 11/11/19 07:00 84 30 118/63 (81) 100 11/11/19 07:00 118/63 11/11/19 06:30 88 31 105/68 (80) 100 11/11/19 06:30 88 31 11/11/19 06:00 101/65 11/11/19 06:00 85 28 106/65 (79) 100 11/11/19 05:45 125/75 11/11/19 05:30 89 28 122/71 (88) 100 11/11/19 05:00 87 26 107/68 (81) 100 11/11/19 05:00 107/68 11/11/19 04:30 88 37 119/73 (88) 100 11/11/19 04:00 Mechanical Ventilator 11/11/19 04:00 130/73 11/11/19 04:00 93 11/11/19 04:00 98.4 93 38 130/73 (92) 100 11/11/19 04:00 60 11/11/19 03:30 86 41 122/78 (93) 100 11/11/19 03:29 87 28 60 11/11/19 03:00 127/67 11/11/19 03:00 87 38 127/67 (87) 100 11/11/19 02:30 86 39 141/73 (95) 100 11/11/19 02:30 141/73 11/11/19 02:00 82 40 139/79 (99) 100 11/11/19 02:00 139/79 11/11/19 01:30 82 43 131/66 (87) 99 11/11/19 01:00 125/69 11/11/19 01:00 78 34 125/69 (87) 100 11/11/19 00:30 78 35 120/65 (83) 99 11/11/19 00:00 98.8 78 29 119/65 (83) 99 11/11/19 00:00 119/65 11/11/19 00:00 Mechanical Ventilator 11/11/19 00:00 60 11/11/19 00:00 78 11/10/19 23:30 75 29 101/56 (71) 100 11/10/19 23:25 70 24 60 11/10/19 23:00 94/62 11/10/19 23:00 74 25 94/62 (73) 100 11/10/19 22:30 73 25 96/58 (71) 100 11/10/19 22:00 79 33 113/59 (77) 100 11/10/19 22:00 113/59 11/10/19 21:30 78 35 117/62 (80) 97 11/10/19 21:00 117/63 11/10/19 21:00 80 31 117/63 (81) 94 11/10/19 20:30 76 32 104/64 (77) 100 Intake and Output 11/10/19 11/11/19 19:00 07:00 Intake Total 2828.09 ml 2591.58 ml Output Total 500 ml 650 ml Balance 2328.09 ml 1941.58 ml IV Total 2458.09 ml 2041.58 ml Tube Feeding 210 ml 350 ml Other 160 ml 200 ml Output Urine Total 500 ml 650 ml # Bowel Movements 1 Laboratory Tests 11/11/19 04:33: White Blood Count 17.4H, Red Blood Count 2.69L, Hemoglobin 8.4#L, Hematocrit 24.7#L, Mean Corpuscular Volume 92, Mean Corpuscular Hemoglobin 31.1H, Mean Corpuscular Hemoglobin Concent 33.9, Red Cell Distribution Width 15.3H, Platelet Count 289, Mean Platelet Volume 4.9L, Neutrophils (%) (Auto) 83.5H, Lymphocytes (%) (Auto) 10.1L, Monocytes (%) (Auto) 5.0, Eosinophils (%) (Auto) 1.0, Basophils (%) (Auto) 0.4, Sodium Level 150H, Potassium Level 4.0, Chloride Level 119H, Carbon Dioxide Level 22, Anion Gap 9, Blood Urea Nitrogen 92H, Creatinine 2.4H, Estimat Glomerular Filtration Rate 26.4, Glucose Level 103, Calcium Level 8.0L, Total Bilirubin 0.3, Aspartate Amino Transf (AST/SGOT) 18, Alanine Aminotransferase (ALT/SGPT) 18, Alkaline Phosphatase 71, Total Protein 7.0, Albumin 1.4L, Globulin 5.6, Albumin/Globulin Ratio 0.2L, Thyroid Stimulating Hormone (TSH) 17.702H, Random Vancomycin Level 18.7 Height (Feet): 5 Height (Inches): 4.00 Weight (Pounds): 124 General Appearance: WD/WN, lethargic, confused, cachetic, thin EENT: PERRL/EOMI, normal ENT inspection Neck: non-tender, normal alignment, supple, normal inspection Cardiovascular: normal peripheral pulses, normal rate, regular rhythm Respiratory/Chest: chest wall non-tender, lungs clear, normal breath sounds, no respiratory distress, no accessory muscle use Abdomen: normal bowel sounds, non tender, soft, no organomegaly, no mass Edema: no edema noted Arm (L), no edema noted Arm (R), no edema noted Leg (L), no edema noted Leg (R), no edema noted Pedal (L), no edema noted Pedal (R), no edema noted Generalized Neurologic: disoriented, unresponsive, aphasia Jimi Tellez MD November 11, 2019 20:23
--- NOTE | 2019-11-11 22:00 | NUR ---
NURSE NOTES: Patient has large liquid/soft BM. Rectal tube inserted. Patient given sponge bath, was suctioned and then repositioned. Oral care was performed. GT flush was given. All due meds given. Vitals remains stable at this time.
[2019-11-12] VITALS (24 sets, daily range): BP systolic 94–142; BP diastolic 53–77
--- NOTE | 2019-11-12 | Progress Note ---
DATE: 11/11/2019 CARDIOLOGY PROGRESS NOTE SUBJECTIVE: Patient received packed red blood cell transfusions, but remains hypotensive. Pressor support is being continued. Patient is on full ventilator support as well. PHYSICAL EXAMINATION: VITAL SIGNS: Blood pressure 118/63, heart rate 84, respirations 30. LUNGS: Bilateral breath sounds. Rhonchi. CARDIAC: Regular rhythm rate. Normal S1, S2. ABDOMEN: Soft. EXTREMITIES: Trace edema. LABORATORY DATA: White count 17, hemoglobin 8.4. Sodium 150, potassium 4, bicarb 22, BUN 92, creatinine 2.4. TSH is 17. Albumin is 1.4. COVID-19 swab is negative. IMPRESSION: 1. Shock. 2. Sepsis. 3. Acute blood loss. 4. Severe dehydration. 5. Hypothyroidism. 6. Anemia. PLAN: 1. Pressor support with taper as able. 2. Volume support with hypertonic fluids. 3. Antimicrobials per Infectious Disease air quality consultant. 4. Hold antihypertensives. 5. Continue thyroid replacement. 6. Monitor acid-base parameters closely. 7. DVT prophylaxis. Franko Pineda M.D. DR: CELINE JOB#: [id number] CC:
--- NOTE | 2019-11-12 00:06 | NUR ---
NURSE NOTES: Patient was repositioned and given oral care. Rectal tube remains in place, no leaks observed. HR is 75 NSR and BP is 94/61. Patients temperature is 99.2F (ax). Central line dressing remains clean, patent and intact.
--- NOTE | 2019-11-12 00:59 | Consultation ---
DATE OF CONSULTATION: 11/10/2019 CARDIOLOGY CONSULTATION CONSULTING PHYSICIAN: Franko Pineda MD. REASON: Shock. HISTORY OF PRESENT ILLNESS: The patient with multiple medical problems was transferred from a nursing home facility because of oral bleeding. He apparently sustained some injury to the inside of his mouth. The patient was hypotensive in the emergency room with a bite block . Hemoglobin of 7.2, required transfusions. The patient was also noted to be septic and pancultured with antimicrobials initiated. He remains on pressor support. He was also placed on hydroxychloroquine for possible COVID infection. PAST MEDICAL HISTORY: Includes cerebrovascular disease, history of cerebrovascular accident, chronic encephalopathy, dementia, chronic respiratory failure, tracheostomy, hypothyroidism, type 2 diabetes mellitus, paroxysmal atrial fibrillation, history of congestive heart failure. MEDICATIONS: Reviewed. ALLERGIES: None known. FAMILY HISTORY: Noncontributory. REVIEW OF SYSTEMS: Cannot obtain review of systems. PHYSICAL EXAMINATION: GENERAL: Noncommunicative. VITAL SIGNS: Blood pressure was 79/20, heart rate 92, respiratory rate 20, temperature 100.5. HEENT: Thin secretions from trach site. LUNGS: Bilateral breath sounds with rhonchi. CARDIAC: Rapid rate. Regular rhythm. Triple lumen site is without bleeding on the chest wall. ABDOMEN: Soft. G-tube intact. EXTREMITIES: Muscle atrophy. No edema. NEUROLOGIC: Patient is obtunded. EKG revealed sinus rhythm with nonspecific ST change. LABORATORY DATA: White count down from 34.9 to 22.6 today, hemoglobin 6.3. Sodium is 148, potassium 4.1, bicarb 19, BUN 103, creatinine 2.5. Albumin yesterday was 1.6. ABG on admission 7.26, 36, 99. IMPRESSION: 1. Acute blood loss. 2. Shock. 3. Sepsis. 4. Dehydration. 5. Hyponatremia. 6. Hyperchloremia. 7. Acute renal failure. 8. Severe protein-calorie malnutrition. 9. Paroxysmal atrial fibrillation. 10. Acute myocardial ischemia. 11. Chronic diastolic congestive heart failure. PLAN: 1. Volume support to manage shock with pressors as well until stabilized. 2. Packed red blood cell transfusion for hemoglobin level goal above 7. 3. Once euvolemic, hypotonic IV fluids can be initiated. 4. No antiplatelet or anticoagulant therapy at this time. 5. Continue ventilator support. 6. Adjust vent settings based on acid-base parameters. 7. Condition is critical with guarded prognosis. Franko Pineda M.D. DR: CELINE JOB#: [id number] CC:
--- NOTE | 2019-11-12 02:01 | NUR ---
NURSE NOTES: Repositioned. BP is 97/57. Suctioned patients. No issues at this time. Pulses present.
[2019-11-12] MEDS: Zosyn 3.375gm in NS 110ml IVPB SCH (04:17)
--- NOTE | 2019-11-12 04:17 | NUR ---
NURSE NOTES: Labs drawn. Reswabbed for COVID19 (nares) Sponge bath VSS Afebrile Repositioned Oral care
--- NOTE | 2019-11-12 04:18 | NUR ---
HAND-OFF: Report given to Mynor BLUNT.
--- NOTE | 2019-11-12 04:19 | NUR ---
NURSE NOTES: RECEIVED PATIENT FROM MERLENE ASTUDILLO. PATIENT ASLEEP STATUS, NO PAIN OR SOB NOTED AT THIS TIME.
--- NOTE | 2019-11-12 06:32 | NUR ---
NURSE NOTES: NO ACUTE DISTRESS NOTED AT THIS SHIFT.
--- NOTE | 2019-11-12 07:02 | NUR ---
HAND-OFF: Report given to MERLENE DELEON.
--- NOTE | 2019-11-12 07:10 | NUR ---
NURSE NOTES: Report received from Shari Yanez
[2019-11-12 07:20] LABS: HEMATOCRIT 20.1 % (42.0-52.0); MEAN CORPUSCULAR VOLUME 92 FL (80-99); PLATELET COUNT 206 K/UL (150-450); RED BLOOD COUNT 2.18 M/UL (4.70-6.10); RED CELL DISTRIBUTION WIDTH 15.3 % (11.6-14.8); WHITE BLOOD COUNT 9.1 K/UL (4.8-10.8)
--- NOTE | 2019-11-12 07:31 | NUR ---
NURSE NOTES: Asleep when received and responsive to verbal and tactile stimuli. Patient is on trach and vent portex 8, AC 22, VT 450 FIO2 40% Peep 5. SR on the monitor, running Vital AF at 55cc, water flush 100cc. GT placement checked and intake. No residual noted at this time and tolerate well.HOB elevated at 35 degree to prevent aspiration.Condom catheter in place draining yellow straw urine with no apparent sediment.Patient on P200 mattress for skin management. LIJ/TLC running 1/2 NS at 150cc/hr. Patient afebrile, mouth care done, abdomen soft and non distended.Turned and repositioned for skin management.Will continue same care plan.Received call from microbiology, pt MDR sputum positive, will follow up with ID.Call light within easy reach
[2019-11-12 07:49] LABS: ALANINE AMINOTRANSFERASE 15 U/L (12-78); ALBUMIN 1.3 G/DL (3.4-5.0); ALBUMIN/GLOBULIN RATIO 0.3 (1.0-2.7); ALKALINE PHOSPHATASE 64 U/L (46-116); ANION GAP 11 mmol/L (5-15); ASPARTATE AMINO TRANSFERASE 18 U/L (15-37); BILIRUBIN,TOTAL 0.3 MG/DL (0.2-1.0); BLOOD UREA NITROGEN 84 mg/dL (7-18); CALCIUM 7.6 MG/DL (8.5-10.1); CARBON DIOXIDE 23 MMOL/L (21-32); CHLORIDE 120 MMOL/L (98-107); CREATININE 2.4 MG/DL (0.55-1.30); POTASSIUM 3.8 MMOL/L (3.5-5.1); SODIUM 154 MMOL/L (136-145)
[2019-11-12 08:12] LABS: HEMOGLOBIN 6.8 G/DL (14.2-18.0)
--- NOTE | 2019-11-12 08:12 | General Progress Note ---
Assessment/Plan Problem List: (1) Renal insufficiency ICD Codes: N28.9 - Disorder of kidney and ureter, unspecified SNOMED: 674120944, 330297118 (2) Decubitus skin ulcer ICD Codes: L89.90 - Pressure ulcer of unspecified site, unspecified stage SNOMED: 447087697 (3) Hypernatremia ICD Codes: E87.0 - Hyperosmolality and hypernatremia SNOMED: 148560981 (4) Chronic respiratory failure ICD Codes: J96.10 - Chronic respiratory failure, unspecified whether with hypoxia or hypercapnia SNOMED: 10613639, 1187115 (5) Sepsis ICD Codes: A41.9 - Sepsis, unspecified organism SNOMED: 28331087, 1429047 (6) Tongue laceration ICD Codes: S01.512A - Laceration without foreign body of oral cavity, initial encounter SNOMED: 835339075, 4730227 (7) Dehydration ICD Codes: E86.0 - Dehydration SNOMED: 59472224 (8) Metabolic acidosis ICD Codes: E87.2 - Acidosis SNOMED: 66743019 (9) Pneumonia ICD Codes: J18.9 - Pneumonia, unspecified organism SNOMED: 539508710 (10) Protein-calorie malnutrition, severe ICD Codes: E43 - Unspecified severe protein-calorie malnutrition SNOMED: 447896594, 226797494, 251676985 (11) AUDREY (acute kidney injury) ICD Codes: N17.9 - Acute kidney failure, unspecified SNOMED: 9155366, 48327641 Status: stable Assessment/Plan: pressors as needed ivf iv abx follow up cultures vent support resp rx suctioning gt feeds free water flushes monitor residuals sz rx skin care/wound care critical and guarded Subjective ROS Limited/Unobtainable: Yes Constitutional: Reports: malaise, weakness HEENT: Reports: no symptoms Cardiovascular: Reports: edema Respiratory: Reports: shortness of breath, sputum Gastrointestinal/Abdominal: Reports: difficulty swallowing Genitourinary: Reports: no symptoms Neurologic/Psychiatric: Reports: pre-existing deficit, seizure Endocrine: Reports: no symptoms Hematologic/Lymphatic: Reports: anemia Allergies: Coded Allergies: No Known Allergies (Unverified , 02/23/12) All Systems: reviewed and negative except above Subjective no events. off pressors. no fevers. wbc trending down. on iv abx. multiple positive cultures. Na trending up. no reports of bleeding. no szs. poorly responsive. Objective Last 24 Hour Vital Signs Date Time Temp Pulse Resp B/P (MAP) Pulse Ox O2 Delivery O2 Flow Rate FiO2 11/12/19 07:00 80 26 111/57 (75) 100 11/12/19 06:30 28 31 11/12/19 06:00 81 27 119/71 (87) 100 11/12/19 05:28 79 26 50 11/12/19 05:00 75 23 104/53 (70) 100 11/12/19 04:00 Mechanical Ventilator 11/12/19 04:00 99.0 78 25 113/60 (77) 100 11/12/19 04:00 79 11/12/19 04:00 40 11/12/19 03:10 78 27 50 11/12/19 03:00 83 20 124/57 (79) 100 11/12/19 02:00 71 24 102/57 (72) 100 11/12/19 01:12 80 24 50 11/12/19 01:00 72 24 97/57 (70) 100 11/12/19 00:00 40 11/12/19 00:00 99.2 77 27 94/61 (72) 100 11/12/19 00:00 72 11/12/19 00:00 Mechanical Ventilator 11/11/19 23:00 91 34 131/76 (94) 96 11/11/19 22:39 81 22 50 11/11/19 22:00 92 26 145/92 (109) 96 11/11/19 21:00 78 26 119/69 (86) 98 11/11/19 20:51 84 25 50 11/11/19 20:50 77 25 111/67 (82) 92 11/11/19 20:30 74 23 83/47 (59) 100 11/11/19 20:00 Mechanical Ventilator 11/11/19 20:00 50 11/11/19 20:00 98.6 75 22 84/51 (62) 100 11/11/19 19:31 78 11/11/19 19:30 73 22 85/47 (60) 100 11/11/19 19:11 78 24 50 11/11/19 19:00 78 25 86/48 (61) 100 11/11/19 18:00 90 25 124/77 (93) 100 11/11/19 17:00 91 33 124/56 (78) 100 11/11/19 16:00 Mechanical Ventilator 11/11/19 16:00 98.8 86 24 108/60 (76) 100 11/11/19 16:00 60 11/11/19 16:00 82 11/11/19 15:10 85 25 50 11/11/19 15:00 78 25 93/45 (61) 100 11/11/19 14:00 75 25 89/49 (62) 100 11/11/19 13:02 93 28 60 11/11/19 13:00 77 26 118/73 (88) 100 11/11/19 12:00 99.3 90 24 108/65 (79) 100 11/11/19 12:00 Mechanical Ventilator 11/11/19 12:00 60 11/11/19 12:00 91 11/11/19 11:25 93 25 60 11/11/19 11:00 93 31 113/63 (80) 100 11/11/19 10:00 92 25 108/65 (79) 100 11/11/19 09:13 90 119/63 11/11/19 09:00 88 24 119/63 (81) 100 Intake and Output 11/11/19 11/12/19 19:00 07:00 Intake Total 1979.0 ml 2489.5 ml Output Total 800 ml 400 ml Balance 1179.0 ml 2089.5 ml Free Water 100 ml 60 ml IV Total 1159.0 ml 1779.5 ml Tube Feeding 520 ml 550 ml Other 200 ml 100 ml Output Urine Total 800 ml 400 ml # Bowel Movements 1 Laboratory Tests 11/12/19 04:05: White Blood Count [Pending], Red Blood Count [Pending], Hemoglobin [Pending], Hematocrit [Pending], Mean Corpuscular Volume [Pending], Mean Corpuscular Hemoglobin [Pending], Mean Corpuscular Hemoglobin Concent [Pending], Red Cell Distribution Width [Pending], Platelet Count [Pending], Mean Platelet Volume [ Pending], Neutrophils (%) (Auto) [Pending], Lymphocytes (%) (Auto) [Pending], Monocytes (%) (Auto) [Pending], Eosinophils (%) (Auto) [Pending], Basophils (%) (Auto) [Pending], Sodium Level 154H, Potassium Level 3.8, Chloride Level 120H, Carbon Dioxide Level 23, Anion Gap 11, Blood Urea Nitrogen 84H, Creatinine 2.4H , Estimat Glomerular Filtration Rate 26.4, Glucose Level 98, Calcium Level 7.6L , Total Bilirubin 0.3, Aspartate Amino Transf (AST/SGOT) 18, Alanine Aminotransferase (ALT/SGPT) 15, Alkaline Phosphatase 64, Troponin I 0.002, Total Protein 5.9L, Albumin 1.3L, Globulin 4.6, Albumin/Globulin Ratio 0.3L 11/12/19 07:12: Arterial Blood pH 7.271L, Arterial Blood Partial Pressure CO2 40.6, Arterial Blood Partial Pressure O2 157.9H, Arterial Blood HCO3 18.3L, Arterial Blood Oxygen Saturation 98.7, Arterial Blood Base Excess -8L, Urbano Test Positive Height (Feet): 5 Height (Inches): 4.00 Weight (Pounds): 124 General Appearance: WD/WN, lethargic, confused EENT: PERRL/EOMI Neck: non-tender, normal alignment, supple Cardiovascular: normal peripheral pulses, normal rate, regular rhythm Respiratory/Chest: chest wall non-tender, lungs clear, normal breath sounds, no respiratory distress Abdomen: normal bowel sounds, non tender, soft, no organomegaly Edema: no edema noted Arm (L), no edema noted Arm (R), no edema noted Leg (L), no edema noted Leg (R), no edema noted Pedal (L), no edema noted Pedal (R), no edema noted Generalized Neurologic: disoriented, unresponsive, aphasia Jimi Tellez MD November 12, 2019 08:12
--- NOTE | 2019-11-12 08:21 | Critical Care Progress Note ---
Assessment/Plan Assessment/Plan IMPRESSION: Leukocytosis, sepsis, pneumonia, rule out COVID, respiratory failure, profound anemia, acute on chronic renal failure, multiple contractures and wounds, severe protein-calorie malnutrition. acidemia bacteremia, UTI, + sputum PLAN vent support add synthroid monitor HH iv antibiotics transfuse follow up cultures off load as able monitor acid base and adjust position change monitor TSH nutrition ICU care medications/laboratory data/nursing notes/ICU care reviewed in detail note reviewed and edited care discussed with RN and RT ICU time spent >40 minutes Critical Care - Subjective Interval Events: remains ill low HH on vent poor LOC on isolation ROS Limited/Unobtainable: Yes Condition: critical EKG Rhythm: Sinus Rhythm Residuals: minimal Tube Feeding Tolerated: yes I&O: Intake and Output 11/11/19 11/12/19 19:00 07:00 Intake Total 1979.0 ml 2489.5 ml Output Total 800 ml 400 ml Balance 1179.0 ml 2089.5 ml Free Water 100 ml 60 ml IV Total 1159.0 ml 1779.5 ml Tube Feeding 520 ml 550 ml Other 200 ml 100 ml Output Urine Total 800 ml 400 ml # Bowel Movements 1 Critical Care - Objective Last 24 Hour Vital Signs Date Time Temp Pulse Resp B/P (MAP) Pulse Ox O2 Delivery O2 Flow Rate FiO2 11/12/19 07:10 78 28 50 11/12/19 07:00 80 26 111/57 (75) 100 11/12/19 06:30 28 31 11/12/19 06:00 81 27 119/71 (87) 100 11/12/19 05:28 79 26 50 11/12/19 05:00 75 23 104/53 (70) 100 11/12/19 04:00 Mechanical Ventilator 11/12/19 04:00 99.0 78 25 113/60 (77) 100 11/12/19 04:00 79 11/12/19 04:00 40 11/12/19 03:10 78 27 50 11/12/19 03:00 83 20 124/57 (79) 100 11/12/19 02:00 71 24 102/57 (72) 100 11/12/19 01:12 80 24 50 11/12/19 01:00 72 24 97/57 (70) 100 11/12/19 00:00 40 11/12/19 00:00 99.2 77 27 94/61 (72) 100 11/12/19 00:00 72 11/12/19 00:00 Mechanical Ventilator 11/11/19 23:00 91 34 131/76 (94) 96 11/11/19 22:39 81 22 50 11/11/19 22:00 92 26 145/92 (109) 96 11/11/19 21:00 78 26 119/69 (86) 98 11/11/19 20:51 84 25 50 11/11/19 20:50 77 25 111/67 (82) 92 11/11/19 20:30 74 23 83/47 (59) 100 11/11/19 20:00 Mechanical Ventilator 11/11/19 20:00 50 11/11/19 20:00 98.6 75 22 84/51 (62) 100 11/11/19 19:31 78 11/11/19 19:30 73 22 85/47 (60) 100 11/11/19 19:11 78 24 50 11/11/19 19:00 78 25 86/48 (61) 100 11/11/19 18:00 90 25 124/77 (93) 100 11/11/19 17:00 91 33 124/56 (78) 100 11/11/19 16:00 Mechanical Ventilator 11/11/19 16:00 98.8 86 24 108/60 (76) 100 11/11/19 16:00 60 11/11/19 16:00 82 11/11/19 15:10 85 25 50 11/11/19 15:00 78 25 93/45 (61) 100 11/11/19 14:00 75 25 89/49 (62) 100 11/11/19 13:02 93 28 60 11/11/19 13:00 77 26 118/73 (88) 100 11/11/19 12:00 99.3 90 24 108/65 (79) 100 11/11/19 12:00 Mechanical Ventilator 11/11/19 12:00 60 11/11/19 12:00 91 11/11/19 11:25 93 25 60 11/11/19 11:00 93 31 113/63 (80) 100 11/11/19 10:00 92 25 108/65 (79) 100 11/11/19 09:13 90 119/63 11/11/19 09:00 88 24 119/63 (81) 100 Labs: Labs Test 11/09/19 18:20 11/10/19 04:25 11/10/19 08:43 11/10/19 10:40 Urine Color Pale yellow Urine Appearance Slightly cloudy Urine pH 5 (4.5-8.0) Urine Specific [place] 1.010 (1.005-1.035) Urine Protein 2+ (NEGATIVE) Urine Glucose (UA) Negative (NEGATIVE) Urine Ketones Negative (NEGATIVE) Urine Blood 4+ (NEGATIVE) Urine Nitrite Negative (NEGATIVE) Urine Bilirubin Negative (NEGATIVE) Urine Urobilinogen Normal MG/DL (0.0-1.0) Urine Leukocyte Esterase 2+ (NEGATIVE) Urine RBC 5-10 /HPF (0 - 0) Urine WBC Tntc /HPF (0 - 0) Urine Squamous Epithelial Cells None /LPF (NONE/OCC) Urine Bacteria Moderate /HPF (NONE) Urine Random Sodium 68 mmol/L (20-110) Urine Creatinine 42.1 MG/DL (30.0-125.0) White Blood Count 22.6 K/UL (4.8-10.8) Red Blood Count 1.98 M/UL (4.70-6.10) Hemoglobin 6.3 G/DL (14.2-18.0) Hematocrit 18.8 % (42.0-52.0) Mean Corpuscular Volume 95 FL (80-99) Mean Corpuscular Hemoglobin 31.5 PG (27.0-31.0) Mean Corpuscular Hemoglobin Concent 33.2 G/DL (32.0-36.0) Red Cell Distribution Width 14.5 % (11.6-14.8) Platelet Count 309 K/UL (150-450) Mean Platelet Volume 4.9 FL (6.5-10.1) Neutrophils (%) (Auto) % (45.0-75.0) Lymphocytes (%) (Auto) % (20.0-45.0) Monocytes (%) (Auto) % (1.0-10.0) Eosinophils (%) (Auto) % (0.0-3.0) Basophils (%) (Auto) % (0.0-2.0) Differential Total Cells Counted 100 Neutrophils % (Manual) 85 % (45-75) Lymphocytes % (Manual) 10 % (20-45) Monocytes % (Manual) 5 % (1-10) Eosinophils % (Manual) 0 % (0-3) Basophils % (Manual) 0 % (0-2) Band Neutrophils 0 % (0-8) Platelet Estimate Adequate Platelet Morphology Normal Hypochromasia 4+ Anisocytosis 1+ Spherocytes 3+ Sodium Level 148 MMOL/L (136-145) Potassium Level 4.1 MMOL/L (3.5-5.1) Chloride Level 116 MMOL/L (98-107) Carbon Dioxide Level 19 MMOL/L (21-32) Anion Gap 13 mmol/L (5-15) Blood Urea Nitrogen 103 mg/dL (7-18) Creatinine 2.5 MG/DL (0.55-1.30) Estimat Glomerular Filtration Rate 25.2 mL/min (>60) Glucose Level 97 MG/DL (74-106) Calcium Level 8.4 MG/DL (8.5-10.1) Arterial Blood pH 7.264 (7.350-7.450) 7.324 (7.350-7.450) Arterial Blood Partial Pressure CO2 36.5 mmHg (35.0-45.0) 36.7 mmHg (35.0-45.0) Arterial Blood Partial Pressure O2 99.8 mmHg (75.0-100.0) 198.9 mmHg (75.0-100.0) Arterial Blood HCO3 16.2 mmol/L (22.0-26.0) 18.7 mmol/L (22.0-26.0) Arterial Blood Oxygen Saturation 96.6 % (95-100) 99.1 % (95-100) Arterial Blood Base Excess -10.0 (-2-2) -6.8 (-2-2) Urbano Test Positive Positive Test 11/11/19 04:33 11/12/19 04:05 11/12/19 07:12 White Blood Count 17.4 K/UL (4.8-10.8) 9.1 K/UL (4.8-10.8) Red Blood Count 2.69 M/UL (4.70-6.10) 2.18 M/UL (4.70-6.10) Hemoglobin 8.4 G/DL (14.2-18.0) 6.8 G/DL (14.2-18.0) Hematocrit 24.7 % (42.0-52.0) 20.1 % (42.0-52.0) Mean Corpuscular Volume 92 FL (80-99) 92 FL (80-99) Mean Corpuscular Hemoglobin 31.1 PG (27.0-31.0) 31.4 PG (27.0-31.0) Mean Corpuscular Hemoglobin Concent 33.9 G/DL (32.0-36.0) 34.0 G/DL (32.0-36.0) Red Cell Distribution Width 15.3 % (11.6-14.8) 15.3 % (11.6-14.8) Platelet Count 289 K/UL (150-450) 206 K/UL (150-450) Mean Platelet Volume 4.9 FL (6.5-10.1) 4.5 FL (6.5-10.1) Neutrophils (%) (Auto) 83.5 % (45.0-75.0) % (45.0-75.0) Lymphocytes (%) (Auto) 10.1 % (20.0-45.0) % (20.0-45.0) Monocytes (%) (Auto) 5.0 % (1.0-10.0) % (1.0-10.0) Eosinophils (%) (Auto) 1.0 % (0.0-3.0) % (0.0-3.0) Basophils (%) (Auto) 0.4 % (0.0-2.0) % (0.0-2.0) Sodium Level 150 MMOL/L (136-145) 154 MMOL/L (136-145) Potassium Level 4.0 MMOL/L (3.5-5.1) 3.8 MMOL/L (3.5-5.1) Chloride Level 119 MMOL/L (98-107) 120 MMOL/L (98-107) Carbon Dioxide Level 22 MMOL/L (21-32) 23 MMOL/L (21-32) Anion Gap 9 mmol/L (5-15) 11 mmol/L (5-15) Blood Urea Nitrogen 92 mg/dL (7-18) 84 mg/dL (7-18) Creatinine 2.4 MG/DL (0.55-1.30) 2.4 MG/DL (0.55-1.30) Estimat Glomerular Filtration Rate 26.4 mL/min (>60) 26.4 mL/min (>60) Glucose Level 103 MG/DL (74-106) 98 MG/DL (74-106) Calcium Level 8.0 MG/DL (8.5-10.1) 7.6 MG/DL (8.5-10.1) Total Bilirubin 0.3 MG/DL (0.2-1.0) 0.3 MG/DL (0.2-1.0) Aspartate Amino Transf (AST/SGOT) 18 U/L (15-37) 18 U/L (15-37) Alanine Aminotransferase (ALT/SGPT) 18 U/L (12-78) 15 U/L (12-78) Alkaline Phosphatase 71 U/L (46-116) 64 U/L (46-116) Total Protein 7.0 G/DL (6.4-8.2) 5.9 G/DL (6.4-8.2) Albumin 1.4 G/DL (3.4-5.0) 1.3 G/DL (3.4-5.0) Globulin 5.6 g/dL 4.6 g/dL Albumin/Globulin Ratio 0.2 (1.0-2.7) 0.3 (1.0-2.7) Thyroid Stimulating Hormone (TSH) 17.702 uiU/mL (0.358-3.740) Random Vancomycin Level 18.7 ug/mL Troponin I 0.002 ng/mL (0.000-0.056) Arterial Blood pH 7.271 (7.350-7.450) Arterial Blood Partial Pressure CO2 40.6 mmHg (35.0-45.0) Arterial Blood Partial Pressure O2 157.9 mmHg (75.0-100.0) Arterial Blood HCO3 18.3 mmol/L (22.0-26.0) Arterial Blood Oxygen Saturation 98.7 % (95-100) Arterial Blood Base Excess -8 (-2-2) Urbano Test Positive Objective: GENERAL: Ill-appearing male. HEENT: Negative. NECK: Supple. Tracheostomy midline. LUNGS: moderate breath sounds. Moderate air entry. no wheeze CARDIAC: RRR without murmurs. rubs gallops ABDOMEN: Soft. G-tube in place. No distention. no HSM EXTREMITIES: Contracted. Reduced skin turgor. NEUROLOGICAL: Poorly responsive, in pain. SKIN: Noted with wounds reviewed. Micro: Microbiology Date/Time Source Procedure Growth Status 11/09/19 08:45 Blood Blood Culture - Preliminary Staphylococcus Species Resulted 11/09/19 12:15 Sputum Gram Stain - Final Resulted 11/09/19 12:15 Sputum Culture - Preliminary A.baumanii Complx - Mdr Usual Respiratory Hien Resulted 11/09/19 18:20 Urine,Clean Catch Urine Culture - Preliminary Klebsiella Pneumoniae Resulted Mansoor Martinez MD November 12, 2019 08:20
[2019-11-12] MEDS: Heparin 5000 units/ml inj SUBQ SCH ×2 (08:49→19:36)
[2019-11-12] MEDS: Sodium Citrate 30ml GT SCH ×3 (08:51→17:02)
[2019-11-12] MEDS: levETIRAcetam 500mg/5ml Liquid NG SCH ×2 (08:51→19:36)
[2019-11-12] MEDS: Pantoprazole Inj IVP SCH (08:52)
[2019-11-12] MEDS: Ascorbic Acid 500mg tab ORAL SCH (08:52)
[2019-11-12] MEDS: Multivitamins W/Minerals 15 ML UDC GT SCH (08:52)
[2019-11-12] MEDS: Docusate 100mg/10ml Liq NG SCH ×2 (08:52→17:02)
--- NOTE | 2019-11-12 08:58 | NUR ---
RADIOLOGY DEPT.,CHEST X-RAY DONE.-P.DYE
--- NOTE | 2019-11-12 09:49 | NUR ---
*-* INSURANCE *-* UPDATED CLINICALS HAVE BEEN FAXED TO: [facility] [phone] Work Work Fax
--- NOTE | 2019-11-12 10:10 | NUR ---
NURSE NOTES: Order received from Dr Tellez to give 2 units PRBC and hold heparin for 1 day.Order noted and carried out.Type and cross drawn and send to lab, awaiting for blood. No significant change at this time,will continue to monitor
--- NOTE | 2019-11-12 11:06 | NUR ---
NURSE NOTES: Seen by Dr Hartmann, will follow up , made aware MDR SPUTUM
--- NOTE | 2019-11-12 11:35 | NUR ---
NURSE NOTES: First unit PRBC started and no reaction after 15mn.Will continue to monitor
--- NOTE | 2019-11-12 11:53 | Infectious Diseases Prog Note ---
Assessment/Plan Assessment/Plan antibiotics : vancomycin iv, zosyn A 1. acenitobacter pneumonia COVID 19 negative 2. respiratory failure 3. leucocytosis improving 4. diabetes mellitus 5. seizures 6. CHF 7. klebsiella UTI P 1. d/c vancomycin iv, zosyn 2. start iv colistin 3. will follow up cultures 4. continue isolation Subjective ROS Limited/Unobtainable: Yes Allergies: Coded Allergies: No Known Allergies (Unverified , 02/23/12) Objective Vital Signs Last 24 Hour Vital Signs Date Time Temp Pulse Resp B/P (MAP) Pulse Ox O2 Delivery O2 Flow Rate FiO2 11/12/19 11:00 73 23 100/58 (72) 100 77 11/12/19 10:40 77 23 50 11/12/19 10:15 108/62 11/12/19 10:00 77 23 108/62 (77) 100 77 11/12/19 09:00 86 30 142/77 (98) 100 86 11/12/19 08:00 99.2 84 28 117/66 (83) 92 84 11/12/19 08:00 83 11/12/19 08:00 Mechanical Ventilator 11/12/19 08:00 40 11/12/19 07:10 78 28 50 11/12/19 07:00 80 26 111/57 (75) 100 11/12/19 06:30 28 31 11/12/19 06:00 81 27 119/71 (87) 100 11/12/19 05:28 79 26 50 11/12/19 05:00 75 23 104/53 (70) 100 11/12/19 04:00 Mechanical Ventilator 11/12/19 04:00 99.0 78 25 113/60 (77) 100 11/12/19 04:00 79 11/12/19 04:00 40 11/12/19 03:10 78 27 50 11/12/19 03:00 83 20 124/57 (79) 100 11/12/19 02:00 71 24 102/57 (72) 100 11/12/19 01:12 80 24 50 11/12/19 01:00 72 24 97/57 (70) 100 11/12/19 00:00 40 11/12/19 00:00 99.2 77 27 94/61 (72) 100 11/12/19 00:00 72 11/12/19 00:00 Mechanical Ventilator 11/11/19 23:00 91 34 131/76 (94) 96 11/11/19 22:39 81 22 50 11/11/19 22:00 92 26 145/92 (109) 96 11/11/19 21:00 78 26 119/69 (86) 98 11/11/19 20:51 84 25 50 11/11/19 20:50 77 25 111/67 (82) 92 11/11/19 20:30 74 23 83/47 (59) 100 11/11/19 20:00 Mechanical Ventilator 11/11/19 20:00 50 11/11/19 20:00 98.6 75 22 84/51 (62) 100 11/11/19 19:31 78 11/11/19 19:30 73 22 85/47 (60) 100 11/11/19 19:11 78 24 50 11/11/19 19:00 78 25 86/48 (61) 100 11/11/19 18:00 90 25 124/77 (93) 100 11/11/19 17:00 91 33 124/56 (78) 100 11/11/19 16:00 Mechanical Ventilator 11/11/19 16:00 98.8 86 24 108/60 (76) 100 11/11/19 16:00 60 11/11/19 16:00 82 11/11/19 15:10 85 25 50 11/11/19 15:00 78 25 93/45 (61) 100 11/11/19 14:00 75 25 89/49 (62) 100 11/11/19 13:02 93 28 60 11/11/19 13:00 77 26 118/73 (88) 100 11/11/19 12:00 99.3 90 24 108/65 (79) 100 11/11/19 12:00 Mechanical Ventilator 11/11/19 12:00 60 11/11/19 12:00 91 Height (Feet): 5 Height (Inches): 4.00 Weight (Pounds): 124 HEENT: status post trach Microbiology Date/Time Source Procedure Growth Status 11/09/19 12:15 Sputum Gram Stain - Final Resulted 11/09/19 12:15 Sputum Culture - Preliminary A.baumanii Complx - Mdr Usual Respiratory Hien Resulted 11/09/19 18:20 Urine,Clean Catch Urine Culture - Preliminary Klebsiella Pneumoniae Resulted Laboratory Tests Test 11/12/19 04:05 11/12/19 07:12 White Blood Count 9.1 K/UL (4.8-10.8) Red Blood Count 2.18 M/UL (4.70-6.10) L Hemoglobin 6.8 G/DL (14.2-18.0) *L Hematocrit 20.1 % (42.0-52.0) L Mean Corpuscular Volume 92 FL (80-99) Mean Corpuscular Hemoglobin 31.4 PG (27.0-31.0) H Mean Corpuscular Hemoglobin Concent 34.0 G/DL (32.0-36.0) Red Cell Distribution Width 15.3 % (11.6-14.8) H Platelet Count 206 K/UL (150-450) Mean Platelet Volume 4.5 FL (6.5-10.1) L Neutrophils (%) (Auto) % (45.0-75.0) Lymphocytes (%) (Auto) % (20.0-45.0) Monocytes (%) (Auto) % (1.0-10.0) Eosinophils (%) (Auto) % (0.0-3.0) Basophils (%) (Auto) % (0.0-2.0) Differential Total Cells Counted 100 Neutrophils % (Manual) 79 % (45-75) H Lymphocytes % (Manual) 15 % (20-45) L Monocytes % (Manual) 6 % (1-10) Eosinophils % (Manual) 0 % (0-3) Basophils % (Manual) 0 % (0-2) Band Neutrophils 0 % (0-8) Platelet Estimate Adequate Platelet Morphology Normal Anisocytosis 1+ Sodium Level 154 MMOL/L (136-145) H Potassium Level 3.8 MMOL/L (3.5-5.1) Chloride Level 120 MMOL/L (98-107) H Carbon Dioxide Level 23 MMOL/L (21-32) Anion Gap 11 mmol/L (5-15) Blood Urea Nitrogen 84 mg/dL (7-18) H Creatinine 2.4 MG/DL (0.55-1.30) H Estimat Glomerular Filtration Rate 26.4 mL/min (>60) Glucose Level 98 MG/DL (74-106) Calcium Level 7.6 MG/DL (8.5-10.1) L Total Bilirubin 0.3 MG/DL (0.2-1.0) Aspartate Amino Transf (AST/SGOT) 18 U/L (15-37) Alanine Aminotransferase (ALT/SGPT) 15 U/L (12-78) Alkaline Phosphatase 64 U/L (46-116) Troponin I 0.002 ng/mL (0.000-0.056) Total Protein 5.9 G/DL (6.4-8.2) L Albumin 1.3 G/DL (3.4-5.0) L Globulin 4.6 g/dL Albumin/Globulin Ratio 0.3 (1.0-2.7) L Arterial Blood pH 7.271 (7.350-7.450) Arterial Blood Partial Pressure CO2 40.6 mmHg (35.0-45.0) Arterial Blood Partial Pressure O2 157.9 mmHg (75.0-100.0) H Arterial Blood HCO3 18.3 mmol/L (22.0-26.0) L Arterial Blood Oxygen Saturation 98.7 % (95-100) Arterial Blood Base Excess -8 (-2-2) L Urbano Test Positive Current Medications Medications (Trade) Dose Ordered Sig/Lanny Route PRN Reason Start Time Stop Time Status Last Admin Dose Admin Acetaminophen (Tylenol) 650 mg Q4H PRN ORAL Temp >100.5 11/09/19 11:15 12/09/19 11:14 Al Hydroxide/Mg Hydroxide (Mylanta) 30 ml Q4H PRN ORAL Nausea & Vomiting 11/09/19 11:15 12/09/19 11:14 Ascorbic Acid (Vitamin C) 500 mg DAILY ORAL 11/10/19 09:00 12/10/19 08:59 11/12/19 08:52 Chlorhexidine Gluconate (Kayla-Hex 2%) 1 applic DAILY@1999 TOPIC 11/09/19 20:00 02/07/20 19:59 11/11/19 20:19 Docusate Sodium (Colace) 100 mg TWICE A DAY NG 11/10/19 09:00 12/10/19 08:59 11/12/19 08:52 Heparin Sodium (Porcine) (Heparin 5000 units/ml) 5,000 units EVERY 12 HOURS SUBQ 11/09/19 21:00 11/12/19 23:59 11/12/19 08:49 Heparin Sodium (Porcine) (Heparin 5000 units/ml) 5,000 units EVERY 12 HOURS SUBQ 11/14/19 09:00 12/29/19 08:59 Levetiracetam (Keppra) 750 mg Q12HR NG 11/09/19 21:00 12/09/19 20:59 11/12/19 08:51 Levothyroxine Sodium (Synthroid) 200 mcg DAILY@0630 NG 11/13/19 06:30 12/10/19 06:29 Multivitamins (Multivitamins W/ Minerals 15ml Liquid) 15 ml DAILY GT 11/10/19 09:00 12/10/19 08:59 11/12/19 08:52 Norepinephrine Bitartrate 4 mg/ Dextrose 250 ml @ 0 mls/hr Q24H IV 11/09/19 11:15 12/09/19 11:14 11/10/19 17:11 Pantoprazole (Protonix) 40 mg DAILY IVP 11/10/19 09:00 12/10/19 08:59 11/12/19 08:52 Piperacillin Sod/ Tazobactam Sod 3.375 gm/Sodium Chloride 110 ml @ 27.5 mls/hr Q12H IVPB 11/10/19 18:00 11/17/19 17:59 11/12/19 04:17 Sodium Chloride 1,000 ml @ 150 mls/hr Q6H40M IV 11/11/19 20:00 12/11/19 19:59 11/12/19 09:41 Sodium Citrate (Bicitra) 30 ml TID GT 11/10/19 20:00 12/10/19 18:59 11/12/19 08:51 Vancomycin HCl (Vanco rx to dose) 1 ea DAILY PRN MISC Per rx protocol 11/09/19 11:15 12/09/19 11:14 Isaak Hair MD November 12, 2019 11:53
--- NOTE | 2019-11-12 12:00 | NUR ---
NURSE NOTES: Pt turned and repositioned.Mouth care done, HOB elevated at 35 degree to prevent aspiration.No significant change in condition.Will continue to monitor. Call light within easy reach.Tolerate well transfusion and afebrile at this time.
--- NOTE | 2019-11-12 12:25 | NUR ---
CASE MANAGEMENT: REVIEW 11/12/19 SI: SEPSIS . TONGUE LACERATION . ANEMIA . URINE CX (+) KLEBSIELLA PNEUMONIAE . BLOOD CX (+) STAPH SPUTUM CX (+) A. BAUMANNII COMPLX 99.2 84 28 117/66 92% MECH VENT FIO2 40 H/H 6.8/20.1 NA+ 154 CL- 120 BUN/CREAT 84/2.4 CA+ 7.6 ALB 1.3 IS: BLOOD TRANSFUSION X1 IV COLISTIN BID IV NS @ 150ML/HR BICITRA GT TID IV PROTONIX QD KEPPRA NG BID HEPARIN DQ BID G-TUBE FEEDING \: ICU STATUS DCP: [facility]: DC CURRENT IV ABX START ON IV COLISTIN SYNTHROID ADJUSTED COVID-19 -NOT DETECTED MONITOR H&H
[2019-11-12] MEDS: Colistin 150mg vial IVP SCH (13:58)
--- NOTE | 2019-11-12 14:02 | NUR ---
NURSE NOTES: Second unit PRBC started and no reaction after 15mn.Will continue to monitor.Patient turned and repositioned. HOB elevated to prevent aspiration,patient afebrile at this time,will continue to monitor
--- NOTE | 2019-11-12 14:06 | Surgery Progress Note ---
Surgery Progress Note Subjective Additional Comments first test neg x 1 micro reviewed great nursing care provided ill appearing Objective Last 24 Hour Vital Signs Date Time Temp Pulse Resp B/P (MAP) Pulse Ox O2 Delivery O2 Flow Rate FiO2 11/12/19 13:00 74 9 112/53 (72) 100 11/12/19 12:00 40 11/12/19 12:00 Mechanical Ventilator 11/12/19 12:00 98.9 79 24 119/54 (75) 98 11/12/19 11:00 73 23 100/58 (72) 100 77 11/12/19 10:40 77 23 50 11/12/19 10:15 108/62 11/12/19 10:00 77 23 108/62 (77) 100 77 11/12/19 09:00 86 30 142/77 (98) 100 86 11/12/19 08:00 99.2 84 28 117/66 (83) 92 84 11/12/19 08:00 83 11/12/19 08:00 Mechanical Ventilator 11/12/19 08:00 40 11/12/19 07:10 78 28 50 11/12/19 07:00 80 26 111/57 (75) 100 11/12/19 06:30 28 31 11/12/19 06:00 81 27 119/71 (87) 100 11/12/19 05:28 79 26 50 11/12/19 05:00 75 23 104/53 (70) 100 11/12/19 04:00 Mechanical Ventilator 11/12/19 04:00 99.0 78 25 113/60 (77) 100 11/12/19 04:00 79 11/12/19 04:00 40 11/12/19 03:10 78 27 50 11/12/19 03:00 83 20 124/57 (79) 100 11/12/19 02:00 71 24 102/57 (72) 100 11/12/19 01:12 80 24 50 11/12/19 01:00 72 24 97/57 (70) 100 11/12/19 00:00 40 11/12/19 00:00 99.2 77 27 94/61 (72) 100 11/12/19 00:00 72 11/12/19 00:00 Mechanical Ventilator 11/11/19 23:00 91 34 131/76 (94) 96 11/11/19 22:39 81 22 50 11/11/19 22:00 92 26 145/92 (109) 96 11/11/19 21:00 78 26 119/69 (86) 98 11/11/19 20:51 84 25 50 11/11/19 20:50 77 25 111/67 (82) 92 11/11/19 20:30 74 23 83/47 (59) 100 11/11/19 20:00 Mechanical Ventilator 11/11/19 20:00 50 11/11/19 20:00 98.6 75 22 84/51 (62) 100 11/11/19 19:31 78 11/11/19 19:30 73 22 85/47 (60) 100 11/11/19 19:11 78 24 50 11/11/19 19:00 78 25 86/48 (61) 100 11/11/19 18:00 90 25 124/77 (93) 100 11/11/19 17:00 91 33 124/56 (78) 100 11/11/19 16:00 Mechanical Ventilator 11/11/19 16:00 98.8 86 24 108/60 (76) 100 11/11/19 16:00 60 11/11/19 16:00 82 11/11/19 15:10 85 25 50 11/11/19 15:00 78 25 93/45 (61) 100 I&O Intake and Output 11/11/19 11/12/19 19:00 07:00 Intake Total 1979.0 ml 2489.5 ml Output Total 800 ml 400 ml Balance 1179.0 ml 2089.5 ml Free Water 100 ml 60 ml IV Total 1159.0 ml 1779.5 ml Tube Feeding 520 ml 550 ml Other 200 ml 100 ml Output Urine Total 800 ml 400 ml # Bowel Movements 1 Dressing: other Wound: other Drains: other Cardiovascular: RSR Respiratory: decreased breath sounds Abdomen: soft, non-tender, present bowel sounds Extremities: no cyanosis Laboratory Tests Test 11/12/19 04:05 11/12/19 07:12 White Blood Count 9.1 K/UL (4.8-10.8) Red Blood Count 2.18 M/UL (4.70-6.10) L Hemoglobin 6.8 G/DL (14.2-18.0) *L Hematocrit 20.1 % (42.0-52.0) L Mean Corpuscular Volume 92 FL (80-99) Mean Corpuscular Hemoglobin 31.4 PG (27.0-31.0) H Mean Corpuscular Hemoglobin Concent 34.0 G/DL (32.0-36.0) Red Cell Distribution Width 15.3 % (11.6-14.8) H Platelet Count 206 K/UL (150-450) Mean Platelet Volume 4.5 FL (6.5-10.1) L Neutrophils (%) (Auto) % (45.0-75.0) Lymphocytes (%) (Auto) % (20.0-45.0) Monocytes (%) (Auto) % (1.0-10.0) Eosinophils (%) (Auto) % (0.0-3.0) Basophils (%) (Auto) % (0.0-2.0) Differential Total Cells Counted 100 Neutrophils % (Manual) 79 % (45-75) H Lymphocytes % (Manual) 15 % (20-45) L Monocytes % (Manual) 6 % (1-10) Eosinophils % (Manual) 0 % (0-3) Basophils % (Manual) 0 % (0-2) Band Neutrophils 0 % (0-8) Platelet Estimate Adequate Platelet Morphology Normal Anisocytosis 1+ Sodium Level 154 MMOL/L (136-145) H Potassium Level 3.8 MMOL/L (3.5-5.1) Chloride Level 120 MMOL/L (98-107) H Carbon Dioxide Level 23 MMOL/L (21-32) Anion Gap 11 mmol/L (5-15) Blood Urea Nitrogen 84 mg/dL (7-18) H Creatinine 2.4 MG/DL (0.55-1.30) H Estimat Glomerular Filtration Rate 26.4 mL/min (>60) Glucose Level 98 MG/DL (74-106) Calcium Level 7.6 MG/DL (8.5-10.1) L Total Bilirubin 0.3 MG/DL (0.2-1.0) Aspartate Amino Transf (AST/SGOT) 18 U/L (15-37) Alanine Aminotransferase (ALT/SGPT) 15 U/L (12-78) Alkaline Phosphatase 64 U/L (46-116) Troponin I 0.002 ng/mL (0.000-0.056) Total Protein 5.9 G/DL (6.4-8.2) L Albumin 1.3 G/DL (3.4-5.0) L Globulin 4.6 g/dL Albumin/Globulin Ratio 0.3 (1.0-2.7) L Arterial Blood pH 7.271 (7.350-7.450) Arterial Blood Partial Pressure CO2 40.6 mmHg (35.0-45.0) Arterial Blood Partial Pressure O2 157.9 mmHg (75.0-100.0) H Arterial Blood HCO3 18.3 mmol/L (22.0-26.0) L Arterial Blood Oxygen Saturation 98.7 % (95-100) Arterial Blood Base Excess -8 (-2-2) L [place] Test Positive Plan Problems: (1) Elevated LFTs (2) Malnutrition (3) Respiratory insufficiency (4) Tracheal stenosis Assessment & Plan: Tracheostomy and left central venous catheter remain in place. Vascularity is normal. Hazy infiltrates again noted not significantly changed. Cardiac and mediastinal silhouette are within normal limits. Left effusion unchanged. The bony thorax appear unremarkable. (5) Suspected COVID-19 virus infection Assessment & Plan: negative (6) CKD (chronic kidney disease) stage 3, GFR 30-59 ml/min (7) Chronic respiratory failure (8) Sepsis (9) Tongue laceration (10) Acute on chronic anemia (11) Dehydration (12) UTI (urinary tract infection) (13) Metabolic acidosis (14) Pneumonia (15) Protein-calorie malnutrition, severe (16) AUDREY (acute kidney injury) (17) Decubitus skin ulcer Assessment & Plan: Pt presented on admission with contractures. Resolving full thickness pressure injury Sacrum and R buttocks. Hyperpigmentation with scarring noted with small open area that is moist and viable within injured field. darker skin tone without induration periwound. Resolving pressure injury R heel. Hyperpigmentation with small area of erythema within base of injury with loose callused and dry necrotic edges. Full thickness pressure injury R Hallux. Base of wound is dl with scattered slough. Bone is palpable. Dark, dry brown borders. Full thickness lateral and plantar R 1st metatarsal.Base of wound is 25% necrotic ,75% dl. An area of necrosis noted at nail matrix. L heel is boggy with non-blanching erythema. Tx.Plan: Apply Moisture Barrier Paste to Sacrum,R and L Buttocks. Cover with Optifoam drsgs. Change every 3 days and prn. Apply Betadine to R hallux and R 1st metatarsal. Cover with Optifoam drsg. Change every 3 days and prn. Apply Betadine to R heel. Cover R heel with Optifoam drsg. Change every 3 days and prn. Apply Cavilon Skin Barrier to L heel. Cover with Optifoam drsg. Change every 7 days and prn. Reposition at least every 2hours or as tolerated. Place pillow between knees. Off-load heels with pillow. (18) Hypernatremia (19) Renal insufficiency Rehan Geronimo November 12, 2019 14:06
--- NOTE | 2019-11-12 15:41 | NUR ---
NURSE NOTES: Second unit PRBC started and no reaction after 15mn.Will continue to monitor
--- NOTE | 2019-11-12 16:29 | Diagnostic Imaging Report ---
Procedure: XRAY Chest 1v Reason for study: Central line placement. Comparison films: 06/13/2019. FINDINGS: There is a tracheostomy in place. There is a left internal jugular central venous catheter with the tip in the right atrium. No pneumothorax noted. Vascularity is normal. Hazy alveolar infiltrates noted left greater than the right. There is left retrocardiac consolidation. Cardiac and mediastinal silhouette are within normal limits. Small left effusion noted. The bony thorax appear unremarkable. IMPRESSION: Left central venous catheter with tip in right atrium. No pneumothorax. Bilateral hazy infiltrate in left retrocardiac consolidation with small effusion.
--- NOTE | 2019-11-12 16:30 | Diagnostic Imaging Report ---
Procedure: XRAY Chest 1v Reason for study: Reason For Exam: DYSPNEA Comparison films: 11/09/2019. FINDINGS: Tracheostomy and central venous catheter remain in place. Vascularity is normal. Bilateral infiltrates unchanged. Cardiac and mediastinal silhouette are within normal limits. Left effusion unchanged. The bony thorax appear unremarkable. IMPRESSION: NO SIGNIFICANT CHANGE COMPARED TO PREVIOUS EXAM.
--- NOTE | 2019-11-12 16:31 | Diagnostic Imaging Report ---
Procedure: XRAY Chest 1v Reason for study: Reason For Exam: SOB Comparison films: 11/10/2019. FINDINGS: Tracheostomy and left central venous catheter remain in place. Vascularity is normal. Hazy infiltrates again noted not significantly changed. Cardiac and mediastinal silhouette are within normal limits. Left effusion unchanged. The bony thorax appear unremarkable. IMPRESSION: NO SIGNIFICANT CHANGE COMPARED TO PREVIOUS EXAM.
--- NOTE | 2019-11-12 16:31 | NUR ---
NURSE NOTES: ADLs done,mouth care provided and suctioned as tolerated. Still noted with blood tinged secretion as a result of laceration on the tongue.Good perineal care done.Turned and repositioned for skin management. No significant change in condition at this time.Will continue close monitoring
--- NOTE | 2019-11-12 18:20 | NUR ---
NURSE NOTES: Second unit PRBC completed with no ADR noted.Turned and repositioned.HOB elevated to prevent aspiration. Hemodynamically stable at this time. Will continue same care plan
--- NOTE | 2019-11-12 18:28 | Nephrology Progress Note ---
Assessment/Plan Problem List: (1) Metabolic acidosis (2) AUDREY (acute kidney injury) (3) UTI (urinary tract infection) (4) Pneumonia (5) Protein-calorie malnutrition, severe (6) Dehydration (7) Chronic respiratory failure (8) Sepsis (9) Acute on chronic anemia (10) Hypernatremia Plan continue hydration, howard , broad spectrum atb,pulm care Subjective ROS Limited/Unobtainable: Yes Objective Objective Last 24 Hour Vital Signs Date Time Temp Pulse Resp B/P (MAP) Pulse Ox O2 Delivery O2 Flow Rate FiO2 11/12/19 18:00 87 24 137/65 (89) 99 11/12/19 17:00 81 24 127/67 (87) 100 11/12/19 16:00 75 11/12/19 16:00 98.4 79 21 127/61 (83) 100 11/12/19 16:00 Mechanical Ventilator 11/12/19 16:00 40 11/12/19 15:05 73 26 50 11/12/19 15:00 76 21 123/64 (83) 100 11/12/19 14:00 75 18 114/67 (83) 100 11/12/19 13:00 74 9 112/53 (72) 100 11/12/19 12:00 85 11/12/19 12:00 40 11/12/19 12:00 Mechanical Ventilator 11/12/19 12:00 98.9 79 24 119/54 (75) 98 11/12/19 11:00 73 23 100/58 (72) 100 77 11/12/19 10:40 77 23 50 11/12/19 10:15 108/62 11/12/19 10:00 77 23 108/62 (77) 100 77 11/12/19 09:00 86 30 142/77 (98) 100 86 11/12/19 08:00 99.2 84 28 117/66 (83) 92 84 11/12/19 08:00 83 11/12/19 08:00 Mechanical Ventilator 11/12/19 08:00 40 11/12/19 07:10 78 28 50 11/12/19 07:00 80 26 111/57 (75) 100 11/12/19 06:30 28 31 11/12/19 06:00 81 27 119/71 (87) 100 11/12/19 05:28 79 26 50 11/12/19 05:00 75 23 104/53 (70) 100 11/12/19 04:00 Mechanical Ventilator 11/12/19 04:00 99.0 78 25 113/60 (77) 100 11/12/19 04:00 79 11/12/19 04:00 40 11/12/19 03:10 78 27 50 11/12/19 03:00 83 20 124/57 (79) 100 11/12/19 02:00 71 24 102/57 (72) 100 11/12/19 01:12 80 24 50 11/12/19 01:00 72 24 97/57 (70) 100 11/12/19 00:00 40 11/12/19 00:00 99.2 77 27 94/61 (72) 100 11/12/19 00:00 72 11/12/19 00:00 Mechanical Ventilator 11/11/19 23:00 91 34 131/76 (94) 96 11/11/19 22:39 81 22 50 11/11/19 22:00 92 26 145/92 (109) 96 11/11/19 21:00 78 26 119/69 (86) 98 11/11/19 20:51 84 25 50 11/11/19 20:50 77 25 111/67 (82) 92 11/11/19 20:30 74 23 83/47 (59) 100 11/11/19 20:00 Mechanical Ventilator 11/11/19 20:00 50 11/11/19 20:00 98.6 75 22 84/51 (62) 100 11/11/19 19:31 78 11/11/19 19:30 73 22 85/47 (60) 100 11/11/19 19:11 78 24 50 11/11/19 19:00 78 25 86/48 (61) 100 Intake and Output 11/11/19 11/12/19 19:00 07:00 Intake Total 1979.0 ml 2489.5 ml Output Total 800 ml 400 ml Balance 1179.0 ml 2089.5 ml Free Water 100 ml 60 ml IV Total 1159.0 ml 1779.5 ml Tube Feeding 520 ml 550 ml Other 200 ml 100 ml Output Urine Total 800 ml 400 ml # Bowel Movements 1 Laboratory Tests 11/12/19 04:05: White Blood Count 9.1, Red Blood Count 2.18L, Hemoglobin 6.8*L, Hematocrit 20.1L , Mean Corpuscular Volume 92, Mean Corpuscular Hemoglobin 31.4H, Mean Corpuscular Hemoglobin Concent 34.0, Red Cell Distribution Width 15.3H, Platelet Count 206, Mean Platelet Volume 4.5L, Neutrophils (%) (Auto) , Lymphocytes (%) (Auto) , Monocytes (%) (Auto) , Eosinophils (%) (Auto) , Basophils (%) (Auto) , Differential Total Cells Counted 100, Neutrophils % ( Manual) 79H, Lymphocytes % (Manual) 15L, Monocytes % (Manual) 6, Eosinophils % ( Manual) 0, Basophils % (Manual) 0, Band Neutrophils 0, Platelet Estimate Adequate, Platelet Morphology Normal, Anisocytosis 1+, Sodium Level 154H, Potassium Level 3.8, Chloride Level 120H, Carbon Dioxide Level 23, Anion Gap 11 , Blood Urea Nitrogen 84H, Creatinine 2.4H, Estimat Glomerular Filtration Rate 26.4, Glucose Level 98, Calcium Level 7.6L, Total Bilirubin 0.3, Aspartate Amino Transf (AST/SGOT) 18, Alanine Aminotransferase (ALT/SGPT) 15, Alkaline Phosphatase 64, Troponin I 0.002, Total Protein 5.9L, Albumin 1.3L, Globulin 4.6 , Albumin/Globulin Ratio 0.3L 11/12/19 07:12: Arterial Blood pH 7.271L, Arterial Blood Partial Pressure CO2 40.6, Arterial Blood Partial Pressure O2 157.9H, Arterial Blood HCO3 18.3L, Arterial Blood Oxygen Saturation 98.7, Arterial Blood Base Excess -8L, Urbano Test Positive Height (Feet): 5 Height (Inches): 4.00 Weight (Pounds): 124 General Appearance: lethargic, other - on vent Cardiovascular: regular rhythm Respiratory/Chest: rhonchi - bilaterally Abdomen: soft Extremities: no edema Neurologic: unresponsive Cl Gong MD November 12, 2019 18:28
--- NOTE | 2019-11-12 19:08 | NUR ---
HAND-OFF: Report given to MERLENE Alvarez.
[2019-11-12] MEDS: D5W w/KCl 20mEq 1,000 ML IV SCH (19:35)
[2019-11-12] MEDS: Dyna-Hex 2% Top Sol 2oz TOPIC SCH (19:36)
--- NOTE | 2019-11-12 20:00 | NUR ---
NURSE NOTES: SBAR received from Abigail BLUNT. Patient is awake, non-verbal, semi-obtunded. Is trached to ventilator Portex 8, AC 22, 450tv, 40%, peep of 8. GT running Vital AF at 55ml/hr. L IJ TLC infusing D51/2NS w/20mEq KCL at 125ml/hr. RUA20G PIV and ARON 20G PIV noted and SL. Multiple decubitus noted, rectal tube in place, patient on low air loss mattress. Vitals are stable at this time. Isolation precautions noted. Condom cath in place. Will continue to monitor.
--- NOTE | 2019-11-12 22:00 | NUR ---
NURSE NOTES: Sponge bath given Oral care provided Rectal tube in place, minor leaking Stool is dark brown VS are stable NAD at this time
[2019-11-13] VITALS (25 sets, daily range): BP systolic 83–149; BP diastolic 48–91
--- NOTE | 2019-11-13 | NUR ---
NURSE NOTES: Repositioned Oral care performed VSS, Afebrile NAD at this time ETT suctioning.
--- NOTE | 2019-11-13 02:00 | NUR ---
NURSE NOTES: Repositioned NSR on the monitor Pulses present NAD at this time BP is stable Rectal tube in place, minor leakage
[2019-11-13] MEDS: Colistin 150mg vial IVP SCH ×2 (02:55→13:07)
[2019-11-13] MEDS: D5W w/KCl 20mEq 1,000 ML IV SCH ×4 (02:56→21:02)
--- NOTE | 2019-11-13 04:00 | NUR ---
NURSE NOTES: Sponge bath given Oral care performed trachea care performed Lavaged and suctioned Blood drawn and sent to lab temp = 99.2F 9(ax) wound dressings changed
--- NOTE | 2019-11-13 04:00 | Progress Note ---
DATE: 11/12/2019 SUBJECTIVE: The patient is off pressors. He remains on ventilator support. OBJECTIVE: VITAL SIGNS: Blood pressure 111/57, heart rate 80, respiratory rate 26, afebrile, T-max ____. Monitor sinus and sinus tachycardia. LUNGS: Coarse breath sounds. Thin trach secretions. Scattered rhonchi. CARDIAC: Regular rhythm and rate. Normal S1 and S2. There is no appreciable murmur. ABDOMEN: Soft. G-tube intact. EXTREMITIES: No edema. LABORATORY DATA: White count is 9.1 and hemoglobin 6.8. Sodium 154, potassium 3.8, chloride 120, bicarb 23, BUN 84, creatinine 2.4. Troponin negative. Albumin 1.3. ABG, 7.27, 41, 57. IMPRESSION: 1. Sepsis. 2. Shock. 3. Hypovolemia. 4. Dehydration. 5. Hypernatremia. 6. Respiratory failure. 7. Polymicrobial pneumonia. 8. Acute on chronic respiratory acidosis. 9. Severe protein-calorie malnutrition. 10. Hyperchloremia. 11. Acute on chronic renal failure. 12. Remains critical and guarded. PLAN: 1. Hypotonic volume support by IV route. 2. Antimicrobials per Infectious Disease executive search consultant. 3. Monitor volume status and cardiorenal function. 4. Nutritional support by feeding tube. 5. Adjust vent settings to correct acidosis. 6. DVT prophylaxis. 7. Remains critical and guarded. Franko Pineda M.D. DR: JAIMIE JOB#: [id number] CC:
--- NOTE | 2019-11-13 06:00 | NUR ---
NURSE NOTES: Cmkv=297.1F 9 (ax) Tylenol 650mg via GT given Cooling measures initiated HR 97 NSR BP 133/89 SpO2 98% @ 40% FiO2 Repositioned Lavaged and suctioned Remaine dry and clean
[2019-11-13 06:50] LABS: BASOPHILS % (AUTO) 0.3 % (0.0-2.0); EOSINOPHILS % (AUTO) 5.8 % (0.0-3.0); HEMATOCRIT 28.1 % (42.0-52.0); HEMOGLOBIN 9.8 G/DL (14.2-18.0); LYMPHOCYTES % (AUTO) 15.3 % (20.0-45.0); MEAN CORPUSCULAR VOLUME 90 FL (80-99); MONOCYTES % (AUTO) 5.3 % (1.0-10.0); NEUTROPHILS % (AUTO) 73.3 % (45.0-75.0); PLATELET COUNT 244 K/UL (150-450)
--- NOTE | 2019-11-13 07:00 | NUR ---
HAND-OFF: Report given to Eom RN.
--- NOTE | 2019-11-13 07:05 | NUR ---
NURSE NOTES: Received report from MERLENE Alvarez. Patient is obtunded. Noted Portex 8 with vents setting AC 22, VT 450, Peep 8 and FiO2 40%. Gtube intact and running with Vital AF 1.2 55ml/hr. Rectal tube intact and patent, noted with dark black stool. Condom cath intact and draining with yellow color urine. Left and right IV 20G intact and SL. Left IJ TLC intact, clean and running with D5W w/ KCL 20meq @ 125ml/hr. Kept dry, clean, comfortable and HOB>30. Will continue plan of care.
[2019-11-13 07:18] LABS: ALANINE AMINOTRANSFERASE 16 U/L (12-78); ALBUMIN 1.4 G/DL (3.4-5.0); ALBUMIN/GLOBULIN RATIO 0.2 (1.0-2.7); ALKALINE PHOSPHATASE 61 U/L (46-116); ANION GAP 12 mmol/L (5-15); ASPARTATE AMINO TRANSFERASE 16 U/L (15-37); BILIRUBIN,TOTAL 0.4 MG/DL (0.2-1.0); BLOOD UREA NITROGEN 72 mg/dL (7-18); CALCIUM 8.1 MG/DL (8.5-10.1); CARBON DIOXIDE 21 MMOL/L (21-32); CHLORIDE 115 MMOL/L (98-107); CREATININE 2.3 MG/DL (0.55-1.30); POTASSIUM 3.5 MMOL/L (3.5-5.1); SODIUM 148 MMOL/L (136-145)
--- NOTE | 2019-11-13 08:15 | NUR ---
RD ASSESSMENT & RECOMMENDATIONS SEE CARE ACTIVITY FOR COMPLETE ASSESSMENT DAILY ESTIMATED NEEDS: Needs based on Critical care, sepsis 52.3kg 25-30 kcals/kg 5768-2800 total kcals 1.25-2 g protein/kg 65-105 g total protein 25-30 mL/kg 4438-6923 total fluid mLs NUTRITION DIAGNOSIS: Swallowing difficulty r/ respiratory status as evidenced by pt is vent dep via trach, PEG dep. CURRENT TF:Vital 1.2 @55ml/hr x22 hrs (pt on Synthroid) ENTERAL NUTRITION RECOMMENDATIONS: Vital AF 1.2 @55ml/hr x22 hrs (pt on synthroid) to provide 1210ml, 1452 kcal, 91g pro, 981ml free H2O - W/ continued hemodynamic stability, continue current TF. - Flush per MD, HOB over 30 degrees Without hemodynamic stability, rec trophic feeds of 10ml/hr to maintain gut integrity. ADDITIONAL RECOMMENDATIONS: 1) Feed at goal w/ hemodynamic stability (NE HELD) 2) SNF wt 115 lbs/ 52.27kg (11/02/19) 3) Wound care: continue Vit C, add WILIAM BID 4) Monitor renal labs and need for renal TF formula (Creat 3.0 -> 2.3 trend down)
[2019-11-13] MEDS: levETIRAcetam 500mg/5ml Liquid NG SCH ×2 (08:20→20:06)
[2019-11-13] MEDS: Sodium Citrate 30ml GT SCH ×3 (08:20→17:20)
[2019-11-13] MEDS: Multivitamins W/Minerals 15 ML UDC GT SCH (08:20)
[2019-11-13] MEDS: Docusate 100mg/10ml Liq NG SCH (08:20)
[2019-11-13] MEDS: Ascorbic Acid 500mg tab ORAL SCH (08:20)
[2019-11-13] MEDS: Pantoprazole Inj IVP SCH (08:20)
--- NOTE | 2019-11-13 09:00 | NUR ---
NURSE NOTES: All due medication given as ordered.
--- NOTE | 2019-11-13 10:02 | General Progress Note ---
Assessment/Plan Problem List: (1) Renal insufficiency ICD Codes: N28.9 - Disorder of kidney and ureter, unspecified SNOMED: 089651233, 001386386 (2) Decubitus skin ulcer ICD Codes: L89.90 - Pressure ulcer of unspecified site, unspecified stage SNOMED: 089579957 (3) Hypernatremia ICD Codes: E87.0 - Hyperosmolality and hypernatremia SNOMED: 013529960 (4) Chronic respiratory failure ICD Codes: J96.10 - Chronic respiratory failure, unspecified whether with hypoxia or hypercapnia SNOMED: 09239915, 1658134 (5) Sepsis ICD Codes: A41.9 - Sepsis, unspecified organism SNOMED: 66988417, 0104186 (6) Tongue laceration ICD Codes: S01.512A - Laceration without foreign body of oral cavity, initial encounter SNOMED: 528094145, 1951411 (7) Dehydration ICD Codes: E86.0 - Dehydration SNOMED: 83805299 (8) Metabolic acidosis ICD Codes: E87.2 - Acidosis SNOMED: 68961265 (9) Pneumonia ICD Codes: J18.9 - Pneumonia, unspecified organism SNOMED: 141375193 (10) Protein-calorie malnutrition, severe ICD Codes: E43 - Unspecified severe protein-calorie malnutrition SNOMED: 649778991, 821031790, 988938816 (11) AUDREY (acute kidney injury) ICD Codes: N17.9 - Acute kidney failure, unspecified SNOMED: 8293676, 50649738 Status: stable Assessment/Plan: pressors as needed ivf iv abx follow up cultures vent support resp rx suctioning gt feeds free water flushes monitor residuals sz rx skin care/wound care critical and guarded Subjective ROS Limited/Unobtainable: Yes Constitutional: Reports: malaise, weakness HEENT: Reports: no symptoms Cardiovascular: Reports: no symptoms Respiratory: Reports: shortness of breath, SOB at rest, sputum Genitourinary: Reports: no symptoms Neurologic/Psychiatric: Reports: pre-existing deficit, seizure Endocrine: Reports: no symptoms Hematologic/Lymphatic: Reports: anemia Allergies: Coded Allergies: No Known Allergies (Unverified , 02/23/12) All Systems: reviewed and negative except above Subjective no events. off pressors. no fevers. wbc trending down. on iv abx. multiple positive cultures. Na trending down. no reports of bleeding. no szs. poorly responsive. Objective Last 24 Hour Vital Signs Date Time Temp Pulse Resp B/P (MAP) Pulse Ox O2 Delivery O2 Flow Rate FiO2 11/13/19 08:00 40 11/13/19 08:00 Mechanical Ventilator 11/13/19 07:54 97 29 40 11/13/19 07:00 102 30 122/70 (87) 99 11/13/19 06:37 100.0 11/13/19 06:00 100.1 99 39 133/89 (104) 97 11/13/19 05:00 104 35 149/82 (104) 98 11/13/19 04:00 Mechanical Ventilator 11/13/19 04:00 40 11/13/19 04:00 99.2 108 29 144/79 (100) 98 11/13/19 04:00 87 11/13/19 03:25 103 33 40 11/13/19 03:00 83 18 120/67 (84) 97 11/13/19 02:00 86 28 123/64 (83) 98 11/13/19 01:00 86 27 120/57 (78) 97 11/13/19 00:00 40 11/13/19 00:00 84 11/13/19 00:00 98.7 84 24 122/64 (83) 98 11/13/19 00:00 Mechanical Ventilator 11/12/19 23:18 89 27 40 11/12/19 23:00 91 27 131/71 (91) 98 11/12/19 22:00 91 27 131/68 (89) 98 11/12/19 21:00 83 18 124/67 (86) 97 11/12/19 20:00 99.4 87 26 114/72 (86) 97 11/12/19 20:00 85 11/12/19 20:00 40 11/12/19 20:00 Mechanical Ventilator 11/12/19 19:25 81 28 40 11/12/19 19:00 72 25 106/57 (73) 99 11/12/19 18:00 87 24 137/65 (89) 99 11/12/19 17:00 81 24 127/67 (87) 100 11/12/19 16:00 75 11/12/19 16:00 98.4 79 21 127/61 (83) 100 11/12/19 16:00 Mechanical Ventilator 11/12/19 16:00 40 11/12/19 15:05 73 26 50 11/12/19 15:00 76 21 123/64 (83) 100 11/12/19 14:00 75 18 114/67 (83) 100 11/12/19 13:00 74 9 112/53 (72) 100 11/12/19 12:00 85 11/12/19 12:00 40 11/12/19 12:00 Mechanical Ventilator 11/12/19 12:00 98.9 79 24 119/54 (75) 98 11/12/19 11:00 73 23 100/58 (72) 100 77 11/12/19 10:40 77 23 50 11/12/19 10:15 108/62 11/12/19 10:00 77 23 108/62 (77) 100 77 Intake and Output 11/12/19 11/13/19 19:00 07:00 Intake Total 2627.5 ml 2437.08 ml Output Total 1000 ml 1300 ml Balance 1627.5 ml 1137.08 ml Free Water 300 ml 150 ml IV Total 1667.5 ml 1627.08 ml Tube Feeding 660 ml 660 ml Output Urine Total 700 ml 900 ml Stool Total 300 ml 400 ml Laboratory Tests 11/13/19 04:00: White Blood Count 13.0H, Red Blood Count 3.10L, Hemoglobin 9.8#L, Hematocrit 28.1#L, Mean Corpuscular Volume 90, Mean Corpuscular Hemoglobin 31.5H, Mean Corpuscular Hemoglobin Concent 34.8, Red Cell Distribution Width 15.0H, Platelet Count 244, Mean Platelet Volume 4.9L, Neutrophils (%) (Auto) 73.3, Lymphocytes (%) (Auto) 15.3L, Monocytes (%) (Auto) 5.3, Eosinophils (%) (Auto) 5.8H, Basophils (%) (Auto) 0.3, Sodium Level 148H, Potassium Level 3.5, Chloride Level 115H, Carbon Dioxide Level 21, Anion Gap 12, Blood Urea Nitrogen 72H, Creatinine 2.3H, Estimat Glomerular Filtration Rate 27.7, Glucose Level 103 , Calcium Level 8.1L, Total Bilirubin 0.4, Aspartate Amino Transf (AST/SGOT) 16 , Alanine Aminotransferase (ALT/SGPT) 16, Alkaline Phosphatase 61, Total Protein 7.1, Albumin 1.4L, Globulin 5.7, Albumin/Globulin Ratio 0.2L Height (Feet): 5 Height (Inches): 4.00 Weight (Pounds): 125 Objective General Appearance: WD/WN, lethargic, confused EENT: PERRL/EOMI Neck: non-tender, normal alignment, supple Cardiovascular: normal peripheral pulses, normal rate, regular rhythm Respiratory/Chest: chest wall non-tender, lungs clear, normal breath sounds, no respiratory distress Abdomen: normal bowel sounds, non tender, soft, no organomegaly Edema: no edema noted Arm (L), no edema noted Arm (R), no edema noted Leg (L), no edema noted Leg (R), no edema noted Pedal (L), no edema noted Pedal (R), no edema noted Generalized Neurologic: disoriented, unresponsive, aphasia Jiim Tellez MD November 13, 2019 10:02
--- NOTE | 2019-11-13 10:02 | NUR ---
NURSE NOTES: Repositioned patient. Trach and oral suction given.
--- NOTE | 2019-11-13 10:19 | Critical Care Progress Note ---
Assessment/Plan Assessment/Plan IMPRESSION: Leukocytosis, sepsis, pneumonia, rule out COVID, respiratory failure, profound anemia, acute on chronic renal failure, multiple contractures and wounds, severe protein-calorie malnutrition. acidemia bacteremia, UTI, + sputum PLAN vent support as is increased synthroid monitor HH iv antibiotics follow up cultures off load as able wbc better monitor acid base and adjust position change monitor TSH after dc nutrition off load position change ICU care medications/laboratory data/nursing notes/ICU care reviewed in detail note reviewed and edited care discussed with RN and RT ICU time spent >40 minutes Critical Care - Subjective Interval Events: s/p transfusion resting on vent on feeds skin noted ROS Limited/Unobtainable: Yes Condition: critical EKG Rhythm: Sinus Rhythm Residuals: minimal Tube Feeding Tolerated: yes I&O: Intake and Output 11/12/19 11/13/19 19:00 07:00 Intake Total 2627.5 ml 2437.08 ml Output Total 1000 ml 1300 ml Balance 1627.5 ml 1137.08 ml Free Water 300 ml 150 ml IV Total 1667.5 ml 1627.08 ml Tube Feeding 660 ml 660 ml Output Urine Total 700 ml 900 ml Stool Total 300 ml 400 ml Critical Care - Objective Last 24 Hour Vital Signs Date Time Temp Pulse Resp B/P (MAP) Pulse Ox O2 Delivery O2 Flow Rate FiO2 11/13/19 08:00 40 11/13/19 08:00 Mechanical Ventilator 11/13/19 07:54 97 29 40 11/13/19 07:00 102 30 122/70 (87) 99 11/13/19 06:37 100.0 11/13/19 06:00 100.1 99 39 133/89 (104) 97 11/13/19 05:00 104 35 149/82 (104) 98 11/13/19 04:00 Mechanical Ventilator 11/13/19 04:00 40 11/13/19 04:00 99.2 108 29 144/79 (100) 98 11/13/19 04:00 87 11/13/19 03:25 103 33 40 11/13/19 03:00 83 18 120/67 (84) 97 11/13/19 02:00 86 28 123/64 (83) 98 11/13/19 01:00 86 27 120/57 (78) 97 11/13/19 00:00 40 5/16/20 00:00 84 11/13/19 00:00 98.7 84 24 122/64 (83) 98 11/13/19 00:00 Mechanical Ventilator 11/12/19 23:18 89 27 40 11/12/19 23:00 91 27 131/71 (91) 98 11/12/19 22:00 91 27 131/68 (89) 98 11/12/19 21:00 83 18 124/67 (86) 97 11/12/19 20:00 99.4 87 26 114/72 (86) 97 11/12/19 20:00 85 11/12/19 20:00 40 11/12/19 20:00 Mechanical Ventilator 11/12/19 19:25 81 28 40 11/12/19 19:00 72 25 106/57 (73) 99 11/12/19 18:00 87 24 137/65 (89) 99 11/12/19 17:00 81 24 127/67 (87) 100 11/12/19 16:00 75 11/12/19 16:00 98.4 79 21 127/61 (83) 100 11/12/19 16:00 Mechanical Ventilator 11/12/19 16:00 40 11/12/19 15:05 73 26 50 11/12/19 15:00 76 21 123/64 (83) 100 11/12/19 14:00 75 18 114/67 (83) 100 11/12/19 13:00 74 9 112/53 (72) 100 11/12/19 12:00 85 11/12/19 12:00 40 11/12/19 12:00 Mechanical Ventilator 11/12/19 12:00 98.9 79 24 119/54 (75) 98 11/12/19 11:00 73 23 100/58 (72) 100 77 11/12/19 10:40 77 23 50 Labs: Laboratory Tests Test 11/13/19 04:00 White Blood Count 13.0 K/UL (4.8-10.8) H Red Blood Count 3.10 M/UL (4.70-6.10) L Hemoglobin 9.8 G/DL (14.2-18.0) #L Hematocrit 28.1 % (42.0-52.0) #L Mean Corpuscular Volume 90 FL (80-99) Mean Corpuscular Hemoglobin 31.5 PG (27.0-31.0) H Mean Corpuscular Hemoglobin Concent 34.8 G/DL (32.0-36.0) Red Cell Distribution Width 15.0 % (11.6-14.8) H Platelet Count 244 K/UL (150-450) Mean Platelet Volume 4.9 FL (6.5-10.1) L Neutrophils (%) (Auto) 73.3 % (45.0-75.0) Lymphocytes (%) (Auto) 15.3 % (20.0-45.0) L Monocytes (%) (Auto) 5.3 % (1.0-10.0) Eosinophils (%) (Auto) 5.8 % (0.0-3.0) H Basophils (%) (Auto) 0.3 % (0.0-2.0) Sodium Level 148 MMOL/L (136-145) H Potassium Level 3.5 MMOL/L (3.5-5.1) Chloride Level 115 MMOL/L (98-107) H Carbon Dioxide Level 21 MMOL/L (21-32) Anion Gap 12 mmol/L (5-15) Blood Urea Nitrogen 72 mg/dL (7-18) H Creatinine 2.3 MG/DL (0.55-1.30) H Estimat Glomerular Filtration Rate 27.7 mL/min (>60) Glucose Level 103 MG/DL (74-106) Calcium Level 8.1 MG/DL (8.5-10.1) L Total Bilirubin 0.4 MG/DL (0.2-1.0) Aspartate Amino Transf (AST/SGOT) 16 U/L (15-37) Alanine Aminotransferase (ALT/SGPT) 16 U/L (12-78) Alkaline Phosphatase 61 U/L (46-116) Total Protein 7.1 G/DL (6.4-8.2) Albumin 1.4 G/DL (3.4-5.0) L Globulin 5.7 g/dL Albumin/Globulin Ratio 0.2 (1.0-2.7) L Objective: GENERAL: Ill-appearing male. HEENT: Negative. NECK: Supple. Tracheostomy midline. LUNGS: moderate breath sounds. Moderate air entry. no wheeze CARDIAC: RRR without murmurs. rubs gallops ABDOMEN: Soft. G-tube in place. No distention. no HSM EXTREMITIES: Contracted. Reduced skin turgor. NEUROLOGICAL: Poorly responsive, in pain. SKIN: Noted with wounds reviewed. Mansoor Martinez MD November 13, 2019 10:19
--- NOTE | 2019-11-13 11:29 | Infectious Diseases Prog Note ---
Assessment/Plan Assessment/Plan antibiotics : colistin iv A 1. acenitobacter pneumonia COVID 19 negative 2. respiratory failure 3. leucocytosis 4. diabetes mellitus 5. seizures 6. CHF 7. klebsiella UTI 8, renal failure improving P 1. continue iv colistin 5 more days 2. will follow up cultures 3. continue isolation Subjective ROS Limited/Unobtainable: Yes Allergies: Coded Allergies: No Known Allergies (Unverified , 02/23/12) Objective Vital Signs Last 24 Hour Vital Signs Date Time Temp Pulse Resp B/P (MAP) Pulse Ox O2 Delivery O2 Flow Rate FiO2 11/13/19 11:00 101 30 127/85 (99) 99 11/13/19 10:58 109 35 40 11/13/19 10:56 95 11/13/19 10:00 102 26 121/57 (78) 96 11/13/19 09:00 110 30 140/74 (96) 97 11/13/19 08:00 40 11/13/19 08:00 100.0 100 32 128/80 (96) 97 11/13/19 08:00 Mechanical Ventilator 11/13/19 07:54 97 29 40 11/13/19 07:00 102 30 122/70 (87) 99 11/13/19 06:37 100.0 11/13/19 06:00 100.1 99 39 133/89 (104) 97 11/13/19 05:00 104 35 149/82 (104) 98 11/13/19 04:00 Mechanical Ventilator 11/13/19 04:00 40 11/13/19 04:00 99.2 108 29 144/79 (100) 98 11/13/19 04:00 87 11/13/19 03:25 103 33 40 11/13/19 03:00 83 18 120/67 (84) 97 11/13/19 02:00 86 28 123/64 (83) 98 11/13/19 01:00 86 27 120/57 (78) 97 11/13/19 00:00 40 11/13/19 00:00 84 11/13/19 00:00 98.7 84 24 122/64 (83) 98 11/13/19 00:00 Mechanical Ventilator 11/12/19 23:18 89 27 40 11/12/19 23:00 91 27 131/71 (91) 98 11/12/19 22:00 91 27 131/68 (89) 98 11/12/19 21:00 83 18 124/67 (86) 97 11/12/19 20:00 99.4 87 26 114/72 (86) 97 11/12/19 20:00 85 11/12/19 20:00 40 11/12/19 20:00 Mechanical Ventilator 11/12/19 19:25 81 28 40 11/12/19 19:00 72 25 106/57 (73) 99 11/12/19 18:00 87 24 137/65 (89) 99 11/12/19 17:00 81 24 127/67 (87) 100 11/12/19 16:00 75 11/12/19 16:00 98.4 79 21 127/61 (83) 100 11/12/19 16:00 Mechanical Ventilator 11/12/19 16:00 40 11/12/19 15:05 73 26 50 11/12/19 15:00 76 21 123/64 (83) 100 11/12/19 14:00 75 18 114/67 (83) 100 11/12/19 13:00 74 9 112/53 (72) 100 11/12/19 12:00 85 11/12/19 12:00 40 11/12/19 12:00 Mechanical Ventilator 11/12/19 12:00 98.9 79 24 119/54 (75) 98 Height (Feet): 5 Height (Inches): 4.00 Weight (Pounds): 125 HEENT: status post trach Laboratory Tests Test 11/13/19 04:00 White Blood Count 13.0 K/UL (4.8-10.8) H Red Blood Count 3.10 M/UL (4.70-6.10) L Hemoglobin 9.8 G/DL (14.2-18.0) #L Hematocrit 28.1 % (42.0-52.0) #L Mean Corpuscular Volume 90 FL (80-99) Mean Corpuscular Hemoglobin 31.5 PG (27.0-31.0) H Mean Corpuscular Hemoglobin Concent 34.8 G/DL (32.0-36.0) Red Cell Distribution Width 15.0 % (11.6-14.8) H Platelet Count 244 K/UL (150-450) Mean Platelet Volume 4.9 FL (6.5-10.1) L Neutrophils (%) (Auto) 73.3 % (45.0-75.0) Lymphocytes (%) (Auto) 15.3 % (20.0-45.0) L Monocytes (%) (Auto) 5.3 % (1.0-10.0) Eosinophils (%) (Auto) 5.8 % (0.0-3.0) H Basophils (%) (Auto) 0.3 % (0.0-2.0) Sodium Level 148 MMOL/L (136-145) H Potassium Level 3.5 MMOL/L (3.5-5.1) Chloride Level 115 MMOL/L (98-107) H Carbon Dioxide Level 21 MMOL/L (21-32) Anion Gap 12 mmol/L (5-15) Blood Urea Nitrogen 72 mg/dL (7-18) H Creatinine 2.3 MG/DL (0.55-1.30) H Estimat Glomerular Filtration Rate 27.7 mL/min (>60) Glucose Level 103 MG/DL (74-106) Calcium Level 8.1 MG/DL (8.5-10.1) L Total Bilirubin 0.4 MG/DL (0.2-1.0) Aspartate Amino Transf (AST/SGOT) 16 U/L (15-37) Alanine Aminotransferase (ALT/SGPT) 16 U/L (12-78) Alkaline Phosphatase 61 U/L (46-116) Total Protein 7.1 G/DL (6.4-8.2) Albumin 1.4 G/DL (3.4-5.0) L Globulin 5.7 g/dL Albumin/Globulin Ratio 0.2 (1.0-2.7) L Current Medications Medications (Trade) Dose Ordered Sig/Lanny Route PRN Reason Start Time Stop Time Status Last Admin Dose Admin Acetaminophen (Tylenol) 650 mg Q4H PRN ORAL Temp >100.5 11/09/19 11:15 12/09/19 11:14 11/13/19 06:07 Al Hydroxide/Mg Hydroxide (Mylanta) 30 ml Q4H PRN ORAL Nausea & Vomiting 11/09/19 11:15 12/09/19 11:14 Ascorbic Acid (Vitamin C) 500 mg DAILY ORAL 11/10/19 09:00 12/10/19 08:59 11/13/19 08:20 Chlorhexidine Gluconate (Kayla-Hex 2%) 1 applic DAILY@2000 TOPIC 11/09/19 20:00 02/07/20 19:59 11/12/19 19:36 Colistimethate Sodium (Colistin) 75 mg Q12H IVP 11/12/19 14:00 11/19/19 13:59 11/13/19 02:55 Dextrose/ Electrolytes 1,000 ml @ 125 mls/hr Q8H IV 11/12/19 19:00 12/12/19 18:59 11/13/19 10:33 Heparin Sodium (Porcine) (Heparin 5000 units/ml) 5,000 units EVERY 12 HOURS SUBQ 11/14/19 09:00 12/29/19 08:59 Levetiracetam (Keppra) 750 mg Q12HR NG 11/09/19 21:00 12/09/19 20:59 11/13/19 08:20 Levothyroxine Sodium (Synthroid) 200 mcg DAILY@0630 NG 11/13/19 06:30 12/10/19 06:29 11/13/19 06:06 Multivitamins (Multivitamins W/ Minerals 15ml Liquid) 15 ml DAILY GT 11/10/19 09:00 12/10/19 08:59 11/13/19 08:20 Norepinephrine Bitartrate 4 mg/ Dextrose 250 ml @ 0 mls/hr Q24H IV 11/09/19 11:15 12/09/19 11:14 11/10/19 17:11 Pantoprazole (Protonix) 40 mg DAILY IVP 11/10/19 09:00 12/10/19 08:59 11/13/19 08:20 Sodium Citrate (Bicitra) 30 ml TID GT 11/10/19 20:00 12/10/19 18:59 11/13/19 08:20 Isaak Hair MD November 13, 2019 11:29
--- NOTE | 2019-11-13 12:22 | NUR ---
NURSE NOTES: Repositioned patient. Kept dry, clean and comfortable.
[2019-11-13] MEDS ORDERED: Tubing Blood Filter IV ONE (14:09)
[2019-11-13] MEDS ORDERED: 1/2 NS 1000ml IV ONE ×2 (14:09→16:02)
[2019-11-13] MEDS ORDERED: NS 275ml ONE (14:09)
--- NOTE | 2019-11-13 14:42 | Surgery Progress Note ---
Surgery Progress Note Subjective Additional Comments ill appearing labs reviewed exam unchanged Objective Last 24 Hour Vital Signs Date Time Temp Pulse Resp B/P (MAP) Pulse Ox O2 Delivery O2 Flow Rate FiO2 11/13/19 13:00 123 28 137/73 (94) 95 11/13/19 12:00 122 11/13/19 12:00 124 38 142/91 (108) 94 11/13/19 11:15 127/85 11/13/19 11:00 101 30 127/85 (99) 99 11/13/19 10:58 109 35 40 11/13/19 10:56 95 11/13/19 10:00 102 26 121/57 (78) 96 11/13/19 09:00 110 30 140/74 (96) 97 11/13/19 08:00 40 11/13/19 08:00 100.0 100 32 128/80 (96) 97 11/13/19 08:00 Mechanical Ventilator 11/13/19 08:00 123 11/13/19 07:54 97 29 40 11/13/19 07:00 102 30 122/70 (87) 99 11/13/19 06:37 100.0 11/13/19 06:00 100.1 99 39 133/89 (104) 97 11/13/19 05:00 104 35 149/82 (104) 98 11/13/19 04:00 Mechanical Ventilator 11/13/19 04:00 40 11/13/19 04:00 99.2 108 29 144/79 (100) 98 11/13/19 04:00 87 11/13/19 03:25 103 33 40 11/13/19 03:00 83 18 120/67 (84) 97 11/13/19 02:00 86 28 123/64 (83) 98 11/13/19 01:00 86 27 120/57 (78) 97 11/13/19 00:00 40 11/13/19 00:00 84 11/13/19 00:00 98.7 84 24 122/64 (83) 98 11/13/19 00:00 Mechanical Ventilator 11/12/19 23:18 89 27 40 11/12/19 23:00 91 27 131/71 (91) 98 11/12/19 22:00 91 27 131/68 (89) 98 11/12/19 21:00 83 18 124/67 (86) 97 11/12/19 20:00 99.4 87 26 114/72 (86) 97 11/12/19 20:00 85 11/12/19 20:00 40 11/12/19 20:00 Mechanical Ventilator 11/12/19 19:25 81 28 40 11/12/19 19:00 72 25 106/57 (73) 99 11/12/19 18:00 87 24 137/65 (89) 99 11/12/19 17:00 81 24 127/67 (87) 100 11/12/19 16:00 75 11/12/19 16:00 98.4 79 21 127/61 (83) 100 11/12/19 16:00 Mechanical Ventilator 11/12/19 16:00 40 11/12/19 15:05 73 26 50 11/12/19 15:00 76 21 123/64 (83) 100 I&O Intake and Output 11/12/19 11/13/19 18:59 06:59 Intake Total 2600.0 ml 2462.08 ml Output Total 1000 ml 1300 ml Balance 1600.0 ml 1162.08 ml Free Water 300 ml 150 ml IV Total 1695.0 ml 1652.08 ml Tube Feeding 605 ml 660 ml Output Urine Total 700 ml 900 ml Stool Total 300 ml 400 ml Dressing: other Wound: other Drains: other Cardiovascular: RSR Respiratory: decreased breath sounds Abdomen: soft, present bowel sounds, non-distended Extremities: no cyanosis, other Laboratory Tests Test 11/13/19 04:00 White Blood Count 13.0 K/UL (4.8-10.8) H Red Blood Count 3.10 M/UL (4.70-6.10) L Hemoglobin 9.8 G/DL (14.2-18.0) #L Hematocrit 28.1 % (42.0-52.0) #L Mean Corpuscular Volume 90 FL (80-99) Mean Corpuscular Hemoglobin 31.5 PG (27.0-31.0) H Mean Corpuscular Hemoglobin Concent 34.8 G/DL (32.0-36.0) Red Cell Distribution Width 15.0 % (11.6-14.8) H Platelet Count 244 K/UL (150-450) Mean Platelet Volume 4.9 FL (6.5-10.1) L Neutrophils (%) (Auto) 73.3 % (45.0-75.0) Lymphocytes (%) (Auto) 15.3 % (20.0-45.0) L Monocytes (%) (Auto) 5.3 % (1.0-10.0) Eosinophils (%) (Auto) 5.8 % (0.0-3.0) H Basophils (%) (Auto) 0.3 % (0.0-2.0) Sodium Level 148 MMOL/L (136-145) H Potassium Level 3.5 MMOL/L (3.5-5.1) Chloride Level 115 MMOL/L (98-107) H Carbon Dioxide Level 21 MMOL/L (21-32) Anion Gap 12 mmol/L (5-15) Blood Urea Nitrogen 72 mg/dL (7-18) H Creatinine 2.3 MG/DL (0.55-1.30) H Estimat Glomerular Filtration Rate 27.7 mL/min (>60) Glucose Level 103 MG/DL (74-106) Calcium Level 8.1 MG/DL (8.5-10.1) L Total Bilirubin 0.4 MG/DL (0.2-1.0) Aspartate Amino Transf (AST/SGOT) 16 U/L (15-37) Alanine Aminotransferase (ALT/SGPT) 16 U/L (12-78) Alkaline Phosphatase 61 U/L (46-116) Total Protein 7.1 G/DL (6.4-8.2) Albumin 1.4 G/DL (3.4-5.0) L Globulin 5.7 g/dL Albumin/Globulin Ratio 0.2 (1.0-2.7) L Plan Problems: (1) Elevated LFTs (2) Malnutrition (3) Respiratory insufficiency (4) Tracheal stenosis Assessment & Plan: Tracheostomy and left central venous catheter remain in place. Vascularity is normal. Hazy infiltrates again noted not significantly changed. Cardiac and mediastinal silhouette are within normal limits. Left effusion unchanged. The bony thorax appear unremarkable. (5) Suspected COVID-19 virus infection Assessment & Plan: negative (6) CKD (chronic kidney disease) stage 3, GFR 30-59 ml/min (7) Chronic respiratory failure (8) Sepsis (9) Tongue laceration (10) Acute on chronic anemia (11) Dehydration (12) UTI (urinary tract infection) (13) Metabolic acidosis (14) Pneumonia (15) Protein-calorie malnutrition, severe (16) AUDREY (acute kidney injury) (17) Decubitus skin ulcer Assessment & Plan: Pt presented on admission with contractures. Resolving full thickness pressure injury Sacrum and R buttocks. Hyperpigmentation with scarring noted with small open area that is moist and viable within injured field. darker skin tone without induration periwound. Resolving pressure injury R heel. Hyperpigmentation with small area of erythema within base of injury with loose callused and dry necrotic edges. Full thickness pressure injury R Hallux. Base of wound is dl with scattered slough. Bone is palpable. Dark, dry brown borders. Full thickness lateral and plantar R 1st metatarsal.Base of wound is 25% necrotic ,75% dl. An area of necrosis noted at nail matrix. L heel is boggy with non-blanching erythema. Tx.Plan: Apply Moisture Barrier Paste to Sacrum,R and L Buttocks. Cover with Optifoam drsgs. Change every 3 days and prn. Apply Betadine to R hallux and R 1st metatarsal. Cover with Optifoam drsg. Change every 3 days and prn. Apply Betadine to R heel. Cover R heel with Optifoam drsg. Change every 3 days and prn. Apply Cavilon Skin Barrier to L heel. Cover with Optifoam drsg. Change every 7 days and prn. Reposition at least every 2hours or as tolerated. Place pillow between knees. Off-load heels with pillow. (18) Hypernatremia (19) Renal insufficiency Rehan Geronimo November 13, 2019 14:42
--- NOTE | 2019-11-13 15:58 | NUR ---
NURSE NOTES: Patient has fever. Tylenol given and cooling measure started.
--- NOTE | 2019-11-13 17:30 | NUR ---
NURSE NOTES: Bed bath given.
--- NOTE | 2019-11-13 18:00 | NUR ---
NURSE NOTES: Collected OB stool and sent to the lab.
--- NOTE | 2019-11-13 19:15 | NUR ---
HAND-OFF: Report given to MERLENE Adamson. Endorsed plan of care.
--- NOTE | 2019-11-13 19:18 | NUR ---
NURSE NOTES: Received report from MERLENE Sherman. Patient in bed obtunded. No signs or symptoms of acute distress noted, call light within easy reach, bed alarm on and side rails up x's3 - safety brakes engaged, pt. appears to be tolerating current vent settings- Portex 8, AC 22, VT 450, Peep 8 and FiO2 40%. G tube intact and running with Vital AF 1.2 55ml/hr- no residual noted, Rectal tube intact and patent- draining to gravity- noted with dark black stool. Condom cath intact and patent draining with yellow colored urine. Left and right IV 20G intact -SL. Left IJ TLC intact, dressing clean and dry running D5W w/ KCL 20meq @ 125ml/hr. Pt. appears to be clean and dry, and appears to be resting comfortably, HOB>30. Will continue to monitor pt.and with plan of care. Addendum: 11/13/19 at 1932 by ZAIDA STATON RN RN side rails padded for seizure precautions- no seizure activity noted- upon assessment.
[2019-11-13] MEDS: Dyna-Hex 2% Top Sol 2oz TOPIC SCH (20:06)
--- NOTE | 2019-11-13 20:21 | Nephrology Progress Note ---
Assessment/Plan Problem List: (1) Metabolic acidosis (2) AUDREY (acute kidney injury) (3) UTI (urinary tract infection) (4) Pneumonia (5) Protein-calorie malnutrition, severe (6) Dehydration (7) Chronic respiratory failure (8) Sepsis (9) Acute on chronic anemia (10) Hypernatremia Plan continue hydration, howard , broad spectrum atb,pulm care Subjective ROS Limited/Unobtainable: Yes Objective Objective Last 24 Hour Vital Signs Date Time Temp Pulse Resp B/P (MAP) Pulse Ox O2 Delivery O2 Flow Rate FiO2 11/13/19 19:00 119 29 93/58 (70) 98 11/13/19 18:00 123 32 99/61 (74) 98 11/13/19 17:00 131 42 102/69 (80) 95 11/13/19 16:27 98.9 11/13/19 16:00 132 11/13/19 16:00 40 11/13/19 16:00 Mechanical Ventilator 11/13/19 16:00 98.9 128 32 104/63 (77) 93 11/13/19 15:42 128 33 40 11/13/19 15:00 124 30 111/61 (78) 93 11/13/19 14:00 128 40 126/72 (90) 94 11/13/19 13:00 123 28 137/73 (94) 95 11/13/19 12:00 40 11/13/19 12:00 122 11/13/19 12:00 Mechanical Ventilator 11/13/19 12:00 124 38 142/91 (108) 94 11/13/19 11:15 127/85 11/13/19 11:00 101 30 127/85 (99) 99 11/13/19 10:58 109 35 40 11/13/19 10:56 95 11/13/19 10:00 102 26 121/57 (78) 96 11/13/19 09:00 110 30 140/74 (96) 97 11/13/19 08:00 40 11/13/19 08:00 100.0 100 32 128/80 (96) 97 11/13/19 08:00 Mechanical Ventilator 11/13/19 08:00 123 11/13/19 07:54 97 29 40 11/13/19 07:00 102 30 122/70 (87) 99 11/13/19 06:00 100.1 99 39 133/89 (104) 97 11/13/19 05:00 104 35 149/82 (104) 98 11/13/19 04:00 Mechanical Ventilator 11/13/19 04:00 40 11/13/19 04:00 99.2 108 29 144/79 (100) 98 11/13/19 04:00 87 11/13/19 03:25 103 33 40 11/13/19 03:00 83 18 120/67 (84) 97 11/13/19 02:00 86 28 123/64 (83) 98 11/13/19 01:00 86 27 120/57 (78) 97 11/13/19 00:00 40 11/13/19 00:00 84 11/13/19 00:00 98.7 84 24 122/64 (83) 98 11/13/19 00:00 Mechanical Ventilator 11/12/19 23:18 89 27 40 11/12/19 23:00 91 27 131/71 (91) 98 11/12/19 22:00 91 27 131/68 (89) 98 11/12/19 21:00 83 18 124/67 (86) 97 Intake and Output 11/12/19 11/13/19 19:00 07:00 Intake Total 2627.5 ml 2437.08 ml Output Total 1000 ml 1300 ml Balance 1627.5 ml 1137.08 ml Free Water 300 ml 150 ml IV Total 1667.5 ml 1627.08 ml Tube Feeding 660 ml 660 ml Output Urine Total 700 ml 900 ml Stool Total 300 ml 400 ml Laboratory Tests 11/13/19 04:00: White Blood Count 13.0H, Red Blood Count 3.10L, Hemoglobin 9.8#L, Hematocrit 28.1#L, Mean Corpuscular Volume 90, Mean Corpuscular Hemoglobin 31.5H, Mean Corpuscular Hemoglobin Concent 34.8, Red Cell Distribution Width 15.0H, Platelet Count 244, Mean Platelet Volume 4.9L, Neutrophils (%) (Auto) 73.3, Lymphocytes (%) (Auto) 15.3L, Monocytes (%) (Auto) 5.3, Eosinophils (%) (Auto) 5.8H, Basophils (%) (Auto) 0.3, Sodium Level 148H, Potassium Level 3.5, Chloride Level 115H, Carbon Dioxide Level 21, Anion Gap 12, Blood Urea Nitrogen 72H, Creatinine 2.3H, Estimat Glomerular Filtration Rate 27.7, Glucose Level 103 , Calcium Level 8.1L, Total Bilirubin 0.4, Aspartate Amino Transf (AST/SGOT) 16 , Alanine Aminotransferase (ALT/SGPT) 16, Alkaline Phosphatase 61, Total Protein 7.1, Albumin 1.4L, Globulin 5.7, Albumin/Globulin Ratio 0.2L 11/13/19 17:50: Stool Occult Blood [Pending] Height (Feet): 5 Height (Inches): 4.00 Weight (Pounds): 125 General Appearance: lethargic, alert oriented x3, other - on vent Cardiovascular: regular rhythm Respiratory/Chest: rhonchi - bilaterally Abdomen: soft Extremities: no edema Neurologic: unresponsive Cl Gong MD November 13, 2019 20:21
--- NOTE | 2019-11-13 21:30 | NUR ---
NURSE NOTES: All 2100 meds administered- oral care provided- pt. remains stable- will continue to monitor pt.
--- NOTE | 2019-11-13 23:35 | NUR ---
NURSE NOTES: Bed bath given and linens changed- oral care provided, VS taken B/P appears to be trending up- repositioned and turned pt. will continue to monitor pt. and with plan of care.
[2019-11-14] VITALS (24 sets, daily range): BP systolic 85–123; BP diastolic 51–83
[2019-11-14] MEDS: Colistin 150mg vial IVP SCH ×2 (01:51→13:58)
--- NOTE | 2019-11-14 02:26 | NUR ---
NURSE NOTES: pt. medication administered- oral care provided- no seizure activity noted- will continue with plan of care.
--- NOTE | 2019-11-14 04:31 | NUR ---
NURSE NOTES: pt. appears to be sating well- no seizure activity noted upon assessment, oral care provided, pt. feeding held prior to Synthroid administration- will continue to monitor pt. and with plan of care.
--- NOTE | 2019-11-14 04:44 | Progress Note ---
DATE: 11/13/2019 CARDIOLOGY PROGRESS NOTE SUBJECTIVE: The patient remains in the intensive care unit. Condition remains critical with guarded prognosis. He is afebrile. He is off pressors. He continues on ventilator support. OBJECTIVE: VITAL SIGNS: Blood pressure 122/70, heart rate 102, respiratory rate 30, temperature-max 100.1. LUNGS: Thin secretions with rhonchi bilaterally. CARDIAC: Regular rhythm. Rapid rate. Normal S1, S2. ABDOMEN: Soft. G-tube intact. EXTREMITIES: Trace edema. LABORATORY DATA: Cultures positive for Acinetobacter in the lung and Klebsiella pneumoniae in the urine, both multi-drug resistant. Blood cultures positive for Staph haemolyticus. White count 13, hemoglobin 9.8. Sodium 148, potassium 3.5, bicarb 21, BUN 72, creatinine 2.3. Albumin 1.4. IMPRESSION: 1. Sepsis bacteremia. 2. Pneumonia. 3. Respiratory failure. 4. Recovering shock. 5. Possible endocarditis. 6. Dehydration. 7. Hypernatremia. PLAN: 1. Antimicrobials. 2. Ventilator support. 3. Avoid pressor resumption. 4. Hypotonic hydration. 5. Review echocardiogram. 6. Surveillance blood cultures to follow and considerations for transesophageal echocardiogram. Grady Ramos JOB#: [id number] CC:
--- NOTE | 2019-11-14 05:46 | NUR ---
NURSE NOTES: pt. medication administered- feeding still on hold prior to Synthroid administration- will continue to monitor pt. and with plan of care.
[2019-11-14 06:00] LABS: BASOPHILS % (AUTO) 0.3 % (0.0-2.0); EOSINOPHILS % (AUTO) 3.3 % (0.0-3.0); HEMATOCRIT 24.5 % (42.0-52.0); HEMOGLOBIN 8.5 G/DL (14.2-18.0); LYMPHOCYTES % (AUTO) 11.4 % (20.0-45.0); MEAN CORPUSCULAR VOLUME 90 FL (80-99); MONOCYTES % (AUTO) 4.8 % (1.0-10.0); NEUTROPHILS % (AUTO) 80.2 % (45.0-75.0); PLATELET COUNT 173 K/UL (150-450); RED BLOOD COUNT 2.71 M/UL (4.70-6.10); RED CELL DISTRIBUTION WIDTH 14.9 % (11.6-14.8); WHITE BLOOD COUNT 14.9 K/UL (4.8-10.8)
[2019-11-14 06:33] LABS: ALANINE AMINOTRANSFERASE 10 U/L (12-78); ALBUMIN 0.8 G/DL (3.4-5.0); ALBUMIN/GLOBULIN RATIO 0.2 (1.0-2.7); ALKALINE PHOSPHATASE 52 U/L (46-116); ANION GAP 12 mmol/L (5-15); ASPARTATE AMINO TRANSFERASE 15 U/L (15-37); BILIRUBIN,TOTAL 0.2 MG/DL (0.2-1.0); BLOOD UREA NITROGEN 52 mg/dL (7-18); CARBON DIOXIDE 18 MMOL/L (21-32); CHLORIDE 119 MMOL/L (98-107); CREATININE 1.7 MG/DL (0.55-1.30); POTASSIUM 2.8 MMOL/L (3.5-5.1); SODIUM 149 MMOL/L (136-145)
--- NOTE | 2019-11-14 07:00 | NUR ---
HAND-OFF: Report given to Lane RN, pt. remains stable and no signs of distress noted- aware to f/u on am abnormal labs- K trending down 2.8, WBC trending up- aware to f/u with .
--- NOTE | 2019-11-14 07:05 | NUR ---
NURSE NOTES: Received report from MERLENE Adamson. Patient is obtunded. Portex 8 with vent setting AC 22, VT 250, FiO2 40% and Peep 8. O2 Sat 100% on the monitor. Gtube intact and running with Vital AF 1.2 55ml/hr. Rectal tube intact and draining with dark brown color stool. Condom cath intact and draining with yellow color urine. Left IJ ILC intact and running with D5W w/KCL 20meq @ 75ml/hr. Kept dry, clean, comfortable and HOB>30. Will continue plan of care.
--- NOTE | 2019-11-14 08:10 | General Progress Note ---
Assessment/Plan Problem List: (1) Renal insufficiency ICD Codes: N28.9 - Disorder of kidney and ureter, unspecified SNOMED: 380242132, 539607210 (2) Decubitus skin ulcer ICD Codes: L89.90 - Pressure ulcer of unspecified site, unspecified stage SNOMED: 210764820 (3) Hypernatremia ICD Codes: E87.0 - Hyperosmolality and hypernatremia SNOMED: 760915261 (4) Chronic respiratory failure ICD Codes: J96.10 - Chronic respiratory failure, unspecified whether with hypoxia or hypercapnia SNOMED: 53533080, 5681937 (5) Sepsis ICD Codes: A41.9 - Sepsis, unspecified organism SNOMED: 88683981, 9553459 (6) Tongue laceration ICD Codes: S01.512A - Laceration without foreign body of oral cavity, initial encounter SNOMED: 333139609, 9463839 (7) Dehydration ICD Codes: E86.0 - Dehydration SNOMED: 69899229 (8) Metabolic acidosis ICD Codes: E87.2 - Acidosis SNOMED: 27655945 (9) Pneumonia ICD Codes: J18.9 - Pneumonia, unspecified organism SNOMED: 940409358 (10) Protein-calorie malnutrition, severe ICD Codes: E43 - Unspecified severe protein-calorie malnutrition SNOMED: 912988158, 091187346, 247534595 (11) AUDREY (acute kidney injury) ICD Codes: N17.9 - Acute kidney failure, unspecified SNOMED: 1868878, 57834990 Status: stable Assessment/Plan: pressors as needed ivf iv abx follow up cultures vent support resp rx suctioning gt feeds free water flushes monitor residuals replace k sz rx skin care/wound care critical and guarded Subjective ROS Limited/Unobtainable: Yes Constitutional: Reports: malaise, weakness HEENT: Reports: no symptoms Cardiovascular: Reports: no symptoms Respiratory: Reports: shortness of breath Gastrointestinal/Abdominal: Reports: difficulty swallowing Genitourinary: Reports: no symptoms Neurologic/Psychiatric: Reports: pre-existing deficit, seizure Endocrine: Reports: no symptoms Hematologic/Lymphatic: Reports: anemia Allergies: Coded Allergies: No Known Allergies (Unverified , 02/23/12) All Systems: reviewed and negative except above Subjective no events. off pressors. no fevers. wbc trending down. on iv abx. multiple positive cultures. Na still high. low k, no reports of bleeding. no szs. poorly responsive. Objective Last 24 Hour Vital Signs Date Time Temp Pulse Resp B/P (MAP) Pulse Ox O2 Delivery O2 Flow Rate FiO2 11/14/19 06:55 89 30 40 11/14/19 06:00 88 27 99/55 (70) 100 11/14/19 05:00 97 28 91/53 (66) 99 11/14/19 04:03 90 11/14/19 04:00 40 11/14/19 04:00 Mechanical Ventilator 11/14/19 04:00 98.3 92 28 94/51 (65) 100 11/14/19 03:30 94 28 40 11/14/19 03:00 98 25 97/54 (68) 100 11/14/19 02:00 105 28 123/62 (82) 100 11/14/19 01:00 104 31 116/75 (89) 100 11/14/19 00:00 40 11/14/19 00:00 Mechanical Ventilator 11/14/19 00:00 98.0 107 34 121/83 (96) 100 11/13/19 23:33 101 30 89/56 (67) 97 11/13/19 23:06 102 31 40 11/13/19 23:01 102 11/13/19 23:00 103 32 84/53 (63) 96 11/13/19 22:00 109 29 83/48 (60) 98 11/13/19 21:00 120 32 125/70 (88) 99 11/13/19 21:00 40 11/13/19 20:05 110 11/13/19 20:00 40 11/13/19 20:00 Mechanical Ventilator 11/13/19 20:00 98.1 109 27 88/55 (66) 98 11/13/19 19:30 117 37 40 11/13/19 19:00 119 29 93/58 (70) 98 11/13/19 18:00 123 32 99/61 (74) 98 11/13/19 17:00 131 42 102/69 (80) 95 11/13/19 16:27 98.9 11/13/19 16:00 132 11/13/19 16:00 40 11/13/19 16:00 Mechanical Ventilator 11/13/19 16:00 98.9 128 32 104/63 (77) 93 11/13/19 15:42 128 33 40 11/13/19 15:00 124 30 111/61 (78) 93 11/13/19 14:00 128 40 126/72 (90) 94 11/13/19 13:00 123 28 137/73 (94) 95 11/13/19 12:00 40 11/13/19 12:00 122 11/13/19 12:00 Mechanical Ventilator 11/13/19 12:00 124 38 142/91 (108) 94 11/13/19 11:15 127/85 11/13/19 11:00 101 30 127/85 (99) 99 11/13/19 10:58 109 35 40 11/13/19 10:56 95 11/13/19 10:00 102 26 121/57 (78) 96 11/13/19 09:00 110 30 140/74 (96) 97 Intake and Output 11/13/19 11/14/19 19:00 07:00 Intake Total 1441.25 ml 1342.6 ml Output Total 1000 ml 900 ml Balance 441.25 ml 442.6 ml Free Water 100 ml IV Total 681.25 ml 792.6 ml Tube Feeding 660 ml 550 ml Output Urine Total 1000 ml 575 ml Stool Total 325 ml # Bowel Movements 100 Laboratory Tests 11/13/19 17:50: Stool Occult Blood [Pending] 11/14/19 03:00: White Blood Count 14.9H, Red Blood Count 2.71L, Hemoglobin 8.5L, Hematocrit 24.5L, Mean Corpuscular Volume 90, Mean Corpuscular Hemoglobin 31.3H, Mean Corpuscular Hemoglobin Concent 34.7, Red Cell Distribution Width 14.9H, Platelet Count 173, Mean Platelet Volume 4.7L, Neutrophils (%) (Auto) 80.2H, Lymphocytes (%) (Auto) 11.4L, Monocytes (%) (Auto) 4.8, Eosinophils (%) (Auto) 3.3H, Basophils (%) (Auto) 0.3, Sodium Level 149H, Potassium Level 2.8L, Chloride Level 119H, Carbon Dioxide Level 18L, Anion Gap 12, Blood Urea Nitrogen 52H, Creatinine 1.7H, Estimat Glomerular Filtration Rate 39.3, Glucose Level 74, Calcium Level 6.0#L, Total Bilirubin 0.2, Aspartate Amino Transf (AST/ SGOT) 15, Alanine Aminotransferase (ALT/SGPT) 10L, Alkaline Phosphatase 52, Total Protein 4.5#L, Albumin 0.8L, Globulin 3.7, Albumin/Globulin Ratio 0.2L Height (Feet): 5 Height (Inches): 4.00 Weight (Pounds): 124 Objective General Appearance: WD/WN, lethargic, confused EENT: PERRL/EOMI Neck: non-tender, normal alignment, supple Cardiovascular: normal peripheral pulses, normal rate, regular rhythm Respiratory/Chest: chest wall non-tender, lungs clear, normal breath sounds, no respiratory distress Abdomen: normal bowel sounds, non tender, soft, no organomegaly Edema: no edema noted Arm (L), no edema noted Arm (R), no edema noted Leg (L), no edema noted Leg (R), no edema noted Pedal (L), no edema noted Pedal (R), no edema noted Generalized Neurologic: disoriented, unresponsive, aphasia Jimi Tellez MD November 14, 2019 08:10
--- NOTE | 2019-11-14 08:20 | NUR ---
NURSE NOTES: Due medication given and repositioned patient. Kept dry, clean, comfortable and HOB>30.
[2019-11-14] MEDS: Multivitamins W/Minerals 15 ML UDC GT SCH (08:43)
[2019-11-14] MEDS: Heparin 5000 units/ml inj SUBQ SCH ×2 (08:44→21:22)
[2019-11-14] MEDS: Ascorbic Acid 500mg tab ORAL SCH (08:44)
[2019-11-14] MEDS: Pantoprazole Inj IVP SCH (08:44)
[2019-11-14] MEDS: Sodium Citrate 30ml GT SCH ×3 (08:44→17:09)
[2019-11-14] MEDS: levETIRAcetam 500mg/5ml Liquid NG SCH ×2 (08:44→21:20)
[2019-11-14] MEDS: D5W w/KCl 20mEq 1,000 ML IV SCH (10:23)
--- NOTE | 2019-11-14 11:10 | NUR ---
NURSE NOTES: Seen by Dr. Jonatan Dumas and assessed patient.
--- NOTE | 2019-11-14 11:17 | Infectious Diseases Prog Note ---
Assessment/Plan Assessment/Plan A 1. pneumonia with Acinetobacter COVID19 X 2: negative 2. Ventilator dependent respiratory failure 3. leucocytosis improving 4. diabetes mellitus 5. seizures 6. CHF 7. UTI with KPC 8. Positive blood culture likely contamination 9. Anemia P 1. continue IV Colistin X 4 days 2. will follow up cultures 3. Discontinue droplet isolation Subjective ROS Limited/Unobtainable: Yes Constitutional: Denies: fever Allergies: Coded Allergies: No Known Allergies (Unverified , 02/23/12) Objective Vital Signs Last 24 Hour Vital Signs Date Time Temp Pulse Resp B/P (MAP) Pulse Ox O2 Delivery O2 Flow Rate FiO2 11/14/19 09:07 100 11/14/19 09:00 94 31 102/62 (75) 100 11/14/19 08:00 40 11/14/19 08:00 Mechanical Ventilator 11/14/19 08:00 98.8 94 30 103/55 (71) 100 11/14/19 07:00 93 28 105/61 (76) 100 11/14/19 06:55 89 30 40 11/14/19 06:00 88 27 99/55 (70) 100 11/14/19 05:00 97 28 91/53 (66) 99 11/14/19 04:03 90 11/14/19 04:00 40 11/14/19 04:00 Mechanical Ventilator 11/14/19 04:00 98.3 92 28 94/51 (65) 100 11/14/19 03:30 94 28 40 11/14/19 03:00 98 25 97/54 (68) 100 11/14/19 02:00 105 28 123/62 (82) 100 11/14/19 01:00 104 31 116/75 (89) 100 11/14/19 00:00 40 11/14/19 00:00 Mechanical Ventilator 11/14/19 00:00 98.0 107 34 121/83 (96) 100 11/13/19 23:33 101 30 89/56 (67) 97 11/13/19 23:06 102 31 40 11/13/19 23:01 102 11/13/19 23:00 103 32 84/53 (63) 96 11/13/19 22:00 109 29 83/48 (60) 98 11/13/19 21:00 120 32 125/70 (88) 99 11/13/19 21:00 40 11/13/19 20:05 110 11/13/19 20:00 40 11/13/19 20:00 Mechanical Ventilator 11/13/19 20:00 98.1 109 27 88/55 (66) 98 11/13/19 19:30 117 37 40 11/13/19 19:00 119 29 93/58 (70) 98 11/13/19 18:00 123 32 99/61 (74) 98 11/13/19 17:00 131 42 102/69 (80) 95 11/13/19 16:27 98.9 11/13/19 16:00 132 11/13/19 16:00 40 11/13/19 16:00 Mechanical Ventilator 11/13/19 16:00 98.9 128 32 104/63 (77) 93 11/13/19 15:42 128 33 40 11/13/19 15:00 124 30 111/61 (78) 93 11/13/19 14:00 128 40 126/72 (90) 94 11/13/19 13:00 123 28 137/73 (94) 95 11/13/19 12:00 40 11/13/19 12:00 122 11/13/19 12:00 Mechanical Ventilator 11/13/19 12:00 124 38 142/91 (108) 94 11/13/19 11:15 127/85 Height (Feet): 5 Height (Inches): 4.00 Weight (Pounds): 124 HEENT: status post trach Respiratory/Chest: other - few rhonchi , on ventilator Cardiovascular: normal rate, other - left IJ central line Abdomen: soft, non tender, other - GT & rectal tube Extremities: other - generalized edema Skin: ulcers, other - feet Neurologic/Psychiatric: unresponsiveness Microbiology Date/Time Source Procedure Growth Status 11/12/19 04:00 Nasopharynx Coronavirus COVID-19 PCR ([facility]) - Final Complete Laboratory Tests Test 11/13/19 17:50 11/14/19 03:00 Stool Occult Blood Pending White Blood Count 14.9 K/UL (4.8-10.8) H Red Blood Count 2.71 M/UL (4.70-6.10) L Hemoglobin 8.5 G/DL (14.2-18.0) L Hematocrit 24.5 % (42.0-52.0) L Mean Corpuscular Volume 90 FL (80-99) Mean Corpuscular Hemoglobin 31.3 PG (27.0-31.0) H Mean Corpuscular Hemoglobin Concent 34.7 G/DL (32.0-36.0) Red Cell Distribution Width 14.9 % (11.6-14.8) H Platelet Count 173 K/UL (150-450) Mean Platelet Volume 4.7 FL (6.5-10.1) L Neutrophils (%) (Auto) 80.2 % (45.0-75.0) H Lymphocytes (%) (Auto) 11.4 % (20.0-45.0) L Monocytes (%) (Auto) 4.8 % (1.0-10.0) Eosinophils (%) (Auto) 3.3 % (0.0-3.0) H Basophils (%) (Auto) 0.3 % (0.0-2.0) Sodium Level 149 MMOL/L (136-145) H Potassium Level 2.8 MMOL/L (3.5-5.1) L Chloride Level 119 MMOL/L (98-107) H Carbon Dioxide Level 18 MMOL/L (21-32) L Anion Gap 12 mmol/L (5-15) Blood Urea Nitrogen 52 mg/dL (7-18) H Creatinine 1.7 MG/DL (0.55-1.30) H Estimat Glomerular Filtration Rate 39.3 mL/min (>60) Glucose Level 74 MG/DL (74-106) Calcium Level 6.0 MG/DL (8.5-10.1) #L Total Bilirubin 0.2 MG/DL (0.2-1.0) Aspartate Amino Transf (AST/SGOT) 15 U/L (15-37) Alanine Aminotransferase (ALT/SGPT) 10 U/L (12-78) L Alkaline Phosphatase 52 U/L (46-116) Total Protein 4.5 G/DL (6.4-8.2) #L Albumin 0.8 G/DL (3.4-5.0) L Globulin 3.7 g/dL Albumin/Globulin Ratio 0.2 (1.0-2.7) L Current Medications Medications (Trade) Dose Ordered Sig/Lanny Route PRN Reason Start Time Stop Time Status Last Admin Dose Admin Acetaminophen (Tylenol) 650 mg Q4H PRN ORAL Temp >100.5 11/09/19 11:15 12/09/19 11:14 11/13/19 15:57 Al Hydroxide/Mg Hydroxide (Mylanta) 30 ml Q4H PRN ORAL Nausea & Vomiting 11/09/19 11:15 12/09/19 11:14 Ascorbic Acid (Vitamin C) 500 mg DAILY ORAL 11/10/19 09:00 12/10/19 08:59 11/14/19 08:44 Chlorhexidine Gluconate (Kayla-Hex 2%) 1 applic DAILY@2000 TOPIC 11/09/19 20:00 02/07/20 19:59 11/13/19 20:06 Colistimethate Sodium (Colistin) 75 mg Q12H IVP 11/12/19 14:00 11/19/19 13:59 11/14/19 01:51 Dextrose/ Electrolytes 1,000 ml @ 75 mls/hr [id number] IV 11/13/19 21:00 12/13/19 20:59 11/14/19 10:23 Heparin Sodium (Porcine) (Heparin 5000 units/ml) 5,000 units EVERY 12 HOURS SUBQ 11/14/19 09:00 12/29/19 08:59 Levetiracetam (Keppra) 750 mg Q12HR NG 11/09/19 21:00 12/09/19 20:59 11/14/19 08:44 Levothyroxine Sodium (Synthroid) 200 mcg DAILY@0630 NG 11/13/19 06:30 12/10/19 06:29 11/14/19 05:46 Multivitamins (Multivitamins W/ Minerals 15ml Liquid) 15 ml DAILY GT 11/10/19 09:00 12/10/19 08:59 11/14/19 08:43 Pantoprazole (Protonix) 40 mg DAILY IVP 11/10/19 09:00 12/10/19 08:59 11/14/19 08:44 Sodium Citrate (Bicitra) 30 ml TID GT 11/10/19 20:00 12/10/19 18:59 11/14/19 08:44 Janes Dumas MD November 14, 2019 11:16
--- NOTE | 2019-11-14 13:02 | Surgery Progress Note ---
Surgery Progress Note Subjective Additional Comments Portex 8 with vent setting AC 22, VT 250, FiO2 40% and Peep 8. O2 Sat 100% on the monitor. Gtube intact and running with Vital AF 1.2 55ml/hr. Objective Last 24 Hour Vital Signs Date Time Temp Pulse Resp B/P (MAP) Pulse Ox O2 Delivery O2 Flow Rate FiO2 11/14/19 11:20 96 31 97 Mechanical Ventilator 40 11/14/19 11:18 96 31 40 11/14/19 09:07 100 11/14/19 09:00 94 31 102/62 (75) 100 11/14/19 08:00 40 11/14/19 08:00 Mechanical Ventilator 11/14/19 08:00 98.8 94 30 103/55 (71) 100 11/14/19 07:00 93 28 105/61 (76) 100 11/14/19 06:55 89 30 40 11/14/19 06:00 88 27 99/55 (70) 100 11/14/19 05:00 97 28 91/53 (66) 99 11/14/19 04:03 90 11/14/19 04:00 40 11/14/19 04:00 Mechanical Ventilator 11/14/19 04:00 98.3 92 28 94/51 (65) 100 11/14/19 03:30 94 28 40 11/14/19 03:00 98 25 97/54 (68) 100 11/14/19 02:00 105 28 123/62 (82) 100 11/14/19 01:00 104 31 116/75 (89) 100 11/14/19 00:00 40 11/14/19 00:00 Mechanical Ventilator 11/14/19 00:00 98.0 107 34 121/83 (96) 100 11/13/19 23:33 101 30 89/56 (67) 97 11/13/19 23:06 102 31 40 11/13/19 23:01 102 11/13/19 23:00 103 32 84/53 (63) 96 11/13/19 22:00 109 29 83/48 (60) 98 11/13/19 21:00 120 32 125/70 (88) 99 11/13/19 21:00 40 11/13/19 20:05 110 11/13/19 20:00 40 11/13/19 20:00 Mechanical Ventilator 11/13/19 20:00 98.1 109 27 88/55 (66) 98 11/13/19 19:30 117 37 40 11/13/19 19:00 119 29 93/58 (70) 98 11/13/19 18:00 123 32 99/61 (74) 98 11/13/19 17:00 131 42 102/69 (80) 95 11/13/19 16:27 98.9 11/13/19 16:00 132 11/13/19 16:00 40 11/13/19 16:00 Mechanical Ventilator 11/13/19 16:00 98.9 128 32 104/63 (77) 93 11/13/19 15:42 128 33 40 11/13/19 15:00 124 30 111/61 (78) 93 11/13/19 14:00 128 40 126/72 (90) 94 I&O Intake and Output 11/13/19 11/14/19 19:00 07:00 Intake Total 1441.25 ml 1417.6 ml Output Total 1000 ml 900 ml Balance 441.25 ml 517.6 ml Free Water 100 ml IV Total 681.25 ml 867.6 ml Tube Feeding 660 ml 550 ml Output Urine Total 1000 ml 575 ml Stool Total 325 ml # Bowel Movements 100 Cardiovascular: RSR Respiratory: decreased breath sounds Abdomen: soft, non-tender, present bowel sounds Extremities: no cyanosis Laboratory Tests Test 11/13/19 17:50 11/14/19 03:00 Stool Occult Blood Positive (NEGATIVE) White Blood Count 14.9 K/UL (4.8-10.8) H Red Blood Count 2.71 M/UL (4.70-6.10) L Hemoglobin 8.5 G/DL (14.2-18.0) L Hematocrit 24.5 % (42.0-52.0) L Mean Corpuscular Volume 90 FL (80-99) Mean Corpuscular Hemoglobin 31.3 PG (27.0-31.0) H Mean Corpuscular Hemoglobin Concent 34.7 G/DL (32.0-36.0) Red Cell Distribution Width 14.9 % (11.6-14.8) H Platelet Count 173 K/UL (150-450) Mean Platelet Volume 4.7 FL (6.5-10.1) L Neutrophils (%) (Auto) 80.2 % (45.0-75.0) H Lymphocytes (%) (Auto) 11.4 % (20.0-45.0) L Monocytes (%) (Auto) 4.8 % (1.0-10.0) Eosinophils (%) (Auto) 3.3 % (0.0-3.0) H Basophils (%) (Auto) 0.3 % (0.0-2.0) Sodium Level 149 MMOL/L (136-145) H Potassium Level 2.8 MMOL/L (3.5-5.1) L Chloride Level 119 MMOL/L (98-107) H Carbon Dioxide Level 18 MMOL/L (21-32) L Anion Gap 12 mmol/L (5-15) Blood Urea Nitrogen 52 mg/dL (7-18) H Creatinine 1.7 MG/DL (0.55-1.30) H Estimat Glomerular Filtration Rate 39.3 mL/min (>60) Glucose Level 74 MG/DL (74-106) Calcium Level 6.0 MG/DL (8.5-10.1) #L Total Bilirubin 0.2 MG/DL (0.2-1.0) Aspartate Amino Transf (AST/SGOT) 15 U/L (15-37) Alanine Aminotransferase (ALT/SGPT) 10 U/L (12-78) L Alkaline Phosphatase 52 U/L (46-116) Total Protein 4.5 G/DL (6.4-8.2) #L Albumin 0.8 G/DL (3.4-5.0) L Globulin 3.7 g/dL Albumin/Globulin Ratio 0.2 (1.0-2.7) L Plan Problems: (1) Elevated LFTs (2) Malnutrition (3) Respiratory insufficiency (4) Tracheal stenosis Assessment & Plan: Tracheostomy and left central venous catheter remain in place. Vascularity is normal. Hazy infiltrates again noted not significantly changed. Cardiac and mediastinal silhouette are within normal limits. Left effusion unchanged. The bony thorax appear unremarkable. (5) Suspected COVID-19 virus infection Assessment & Plan: negative (6) CKD (chronic kidney disease) stage 3, GFR 30-59 ml/min (7) Chronic respiratory failure (8) Sepsis (9) Tongue laceration (10) Acute on chronic anemia (11) Dehydration (12) UTI (urinary tract infection) (13) Metabolic acidosis (14) Pneumonia (15) Protein-calorie malnutrition, severe (16) AUDREY (acute kidney injury) (17) Decubitus skin ulcer Assessment & Plan: Pt presented on admission with contractures. Resolving full thickness pressure injury Sacrum and R buttocks. Hyperpigmentation with scarring noted with small open area that is moist and viable within injured field. darker skin tone without induration periwound. Resolving pressure injury R heel. Hyperpigmentation with small area of erythema within base of injury with loose callused and dry necrotic edges. Full thickness pressure injury R Hallux. Base of wound is dl with scattered slough. Bone is palpable. Dark, dry brown borders. Full thickness lateral and plantar R 1st metatarsal.Base of wound is 25% necrotic ,75% dl. An area of necrosis noted at nail matrix. L heel is boggy with non-blanching erythema. Tx.Plan: Apply Moisture Barrier Paste to Sacrum,R and L Buttocks. Cover with Optifoam drsgs. Change every 3 days and prn. Apply Betadine to R hallux and R 1st metatarsal. Cover with Optifoam drsg. Change every 3 days and prn. Apply Betadine to R heel. Cover R heel with Optifoam drsg. Change every 3 days and prn. Apply Cavilon Skin Barrier to L heel. Cover with Optifoam drsg. Change every 7 days and prn. Reposition at least every 2hours or as tolerated. Place pillow between knees. Off-load heels with pillow. (18) Hypernatremia (19) Renal insufficiency Rehan Geronimo November 14, 2019 13:02
--- NOTE | 2019-11-14 14:02 | NUR ---
NURSE NOTES: Repositioned patient and provided oral care.
--- NOTE | 2019-11-14 14:26 | Critical Care Progress Note ---
Assessment/Plan Assessment/Plan IMPRESSION: Leukocytosis, sepsis, pneumonia, rule out COVID, respiratory failure, profound anemia, acute on chronic renal failure, multiple contractures and wounds, severe protein-calorie malnutrition. acidemia bacteremia, UTI, + sputum PLAN vent support without change synthroid monitor HH maintain synthroid iv antibiotics noted follow up cultures off load as able monitor acid base and adjust position change as able monitor TSH after dc nutrition off load position change ICU care medications/laboratory data/nursing notes/ICU care reviewed in detail note reviewed and edited care discussed with RN and RT ICU time spent >40 minutes Critical Care - Subjective Interval Events: remains ill in ICU on vent poorly responsive events noted overnight ROS Limited/Unobtainable: Yes EKG Rhythm: Sinus Rhythm Residuals: minimal Tube Feeding Tolerated: yes I&O: Intake and Output 11/13/19 11/14/19 19:00 07:00 Intake Total 1441.25 ml 1417.6 ml Output Total 1000 ml 900 ml Balance 441.25 ml 517.6 ml Free Water 100 ml IV Total 681.25 ml 867.6 ml Tube Feeding 660 ml 550 ml Output Urine Total 1000 ml 575 ml Stool Total 325 ml # Bowel Movements 100 Critical Care - Objective Last 24 Hour Vital Signs Date Time Temp Pulse Resp B/P (MAP) Pulse Ox O2 Delivery O2 Flow Rate FiO2 11/14/19 12:00 40 11/14/19 12:00 Mechanical Ventilator 11/14/19 11:20 96 31 97 Mechanical Ventilator 40 11/14/19 11:18 96 31 40 11/14/19 09:07 100 11/14/19 09:00 94 31 102/62 (75) 100 11/14/19 08:00 40 11/14/19 08:00 Mechanical Ventilator 11/14/19 08:00 98.8 94 30 103/55 (71) 100 11/14/19 07:00 93 28 105/61 (76) 100 11/14/19 06:55 89 30 40 11/14/19 06:00 88 27 99/55 (70) 100 11/14/19 05:00 97 28 91/53 (66) 99 11/14/19 04:03 90 11/14/19 04:00 40 11/14/19 04:00 Mechanical Ventilator 11/14/19 04:00 98.3 92 28 94/51 (65) 100 11/14/19 03:30 94 28 40 11/14/19 03:00 98 25 97/54 (68) 100 11/14/19 02:00 105 28 123/62 (82) 100 11/14/19 01:00 104 31 116/75 (89) 100 11/14/19 00:00 40 11/14/19 00:00 Mechanical Ventilator 11/14/19 00:00 98.0 107 34 121/83 (96) 100 11/13/19 23:33 101 30 89/56 (67) 97 11/13/19 23:06 102 31 40 11/13/19 23:01 102 11/13/19 23:00 103 32 84/53 (63) 96 11/13/19 22:00 109 29 83/48 (60) 98 11/13/19 21:00 120 32 125/70 (88) 99 11/13/19 21:00 40 11/13/19 20:05 110 11/13/19 20:00 40 11/13/19 20:00 Mechanical Ventilator 11/13/19 20:00 98.1 109 27 88/55 (66) 98 11/13/19 19:30 117 37 40 11/13/19 19:00 119 29 93/58 (70) 98 11/13/19 18:00 123 32 99/61 (74) 98 11/13/19 17:00 131 42 102/69 (80) 95 11/13/19 16:27 98.9 11/13/19 16:00 132 11/13/19 16:00 40 11/13/19 16:00 Mechanical Ventilator 11/13/19 16:00 98.9 128 32 104/63 (77) 93 11/13/19 15:42 128 33 40 11/13/19 15:00 124 30 111/61 (78) 93 Labs: Laboratory Tests Test 11/13/19 17:50 11/14/19 03:00 Stool Occult Blood Positive (NEGATIVE) White Blood Count 14.9 K/UL (4.8-10.8) H Red Blood Count 2.71 M/UL (4.70-6.10) L Hemoglobin 8.5 G/DL (14.2-18.0) L Hematocrit 24.5 % (42.0-52.0) L Mean Corpuscular Volume 90 FL (80-99) Mean Corpuscular Hemoglobin 31.3 PG (27.0-31.0) H Mean Corpuscular Hemoglobin Concent 34.7 G/DL (32.0-36.0) Red Cell Distribution Width 14.9 % (11.6-14.8) H Platelet Count 173 K/UL (150-450) Mean Platelet Volume 4.7 FL (6.5-10.1) L Neutrophils (%) (Auto) 80.2 % (45.0-75.0) H Lymphocytes (%) (Auto) 11.4 % (20.0-45.0) L Monocytes (%) (Auto) 4.8 % (1.0-10.0) Eosinophils (%) (Auto) 3.3 % (0.0-3.0) H Basophils (%) (Auto) 0.3 % (0.0-2.0) Sodium Level 149 MMOL/L (136-145) H Potassium Level 2.8 MMOL/L (3.5-5.1) L Chloride Level 119 MMOL/L (98-107) H Carbon Dioxide Level 18 MMOL/L (21-32) L Anion Gap 12 mmol/L (5-15) Blood Urea Nitrogen 52 mg/dL (7-18) H Creatinine 1.7 MG/DL (0.55-1.30) H Estimat Glomerular Filtration Rate 39.3 mL/min (>60) Glucose Level 74 MG/DL (74-106) Calcium Level 6.0 MG/DL (8.5-10.1) #L Total Bilirubin 0.2 MG/DL (0.2-1.0) Aspartate Amino Transf (AST/SGOT) 15 U/L (15-37) Alanine Aminotransferase (ALT/SGPT) 10 U/L (12-78) L Alkaline Phosphatase 52 U/L (46-116) Total Protein 4.5 G/DL (6.4-8.2) #L Albumin 0.8 G/DL (3.4-5.0) L Globulin 3.7 g/dL Albumin/Globulin Ratio 0.2 (1.0-2.7) L Objective: GENERAL: Ill-appearing male. HEENT: Negative. NECK: Supple. Tracheostomy midline. LUNGS: moderate breath sounds. Moderate air entry. no wheeze CARDIAC: RRR without murmurs. rubs gallops ABDOMEN: Soft. G-tube in place. No distention. no HSM EXTREMITIES: Contracted. Reduced skin turgor. NEUROLOGICAL: Poorly responsive, in pain. SKIN: Noted with wounds reviewed. Micro: Microbiology Date/Time Source Procedure Growth Status 11/12/19 04:00 Nasopharynx Coronavirus COVID-19 PCR ([facility]) - Final Complete Mansoor Martinez MD November 14, 2019 14:26
--- NOTE | 2019-11-14 16:02 | NUR ---
NURSE NOTES: Bed bath given. Kept comfortable and HOB>30.
--- NOTE | 2019-11-14 17:39 | NUR ---
NURSE NOTES: Patient has fever 100.6 AX, tylenol given as ordered. Started cooling measure.
[2019-11-14] MEDS ORDERED: Acetaminophen 650mg/20.3ml GT PRN (17:45)
--- NOTE | 2019-11-14 18:21 | NUR ---
NURSE NOTES: Temp 99.0 AX. will continue plan of care.
--- NOTE | 2019-11-14 19:01 | Nephrology Progress Note ---
Assessment/Plan Problem List: (1) Metabolic acidosis (2) AUDREY (acute kidney injury) (3) UTI (urinary tract infection) (4) Pneumonia (5) Protein-calorie malnutrition, severe (6) Dehydration (7) Chronic respiratory failure (8) Sepsis (9) Acute on chronic anemia (10) Hypernatremia (11) Hypokalemia Plan continue hydration,kcl howard , broad spectrum atb,pulm care Subjective ROS Limited/Unobtainable: Yes Objective Objective Last 24 Hour Vital Signs Date Time Temp Pulse Resp B/P (MAP) Pulse Ox O2 Delivery O2 Flow Rate FiO2 11/14/19 18:09 99.0 11/14/19 18:00 100 36 121/68 (85) 94 11/14/19 17:00 100 27 101/56 (71) 94 11/14/19 16:00 40 11/14/19 16:00 Mechanical Ventilator 11/14/19 16:00 99 29 108/63 (78) 94 11/14/19 16:00 99 11/14/19 15:00 94 28 101/53 (69) 96 11/14/19 14:51 100 26 40 11/14/19 14:00 101 32 101/57 (72) 96 11/14/19 13:00 99 28 98/53 (68) 98 11/14/19 12:00 96 28 85/52 (63) 98 11/14/19 12:00 40 11/14/19 12:00 96 11/14/19 12:00 Mechanical Ventilator 11/14/19 11:20 96 31 97 Mechanical Ventilator 40 11/14/19 11:18 96 31 40 11/14/19 11:00 94 28 93/51 (65) 99 11/14/19 10:00 96 30 93/51 (65) 99 11/14/19 09:07 100 11/14/19 09:00 94 31 102/62 (75) 100 11/14/19 08:00 40 11/14/19 08:00 92 11/14/19 08:00 Mechanical Ventilator 11/14/19 08:00 98.8 94 30 103/55 (71) 100 11/14/19 07:00 93 28 105/61 (76) 100 11/14/19 06:55 89 30 40 11/14/19 06:00 88 27 99/55 (70) 100 11/14/19 05:00 97 28 91/53 (66) 99 11/14/19 04:03 90 11/14/19 04:00 40 11/14/19 04:00 Mechanical Ventilator 11/14/19 04:00 98.3 92 28 94/51 (65) 100 11/14/19 03:30 94 28 40 11/14/19 03:00 98 25 97/54 (68) 100 11/14/19 02:00 105 28 123/62 (82) 100 11/14/19 01:00 104 31 116/75 (89) 100 11/14/19 00:00 40 11/14/19 00:00 Mechanical Ventilator 11/14/19 00:00 98.0 107 34 121/83 (96) 100 11/13/19 23:33 101 30 89/56 (67) 97 11/13/19 23:06 102 31 40 11/13/19 23:01 102 11/13/19 23:00 103 32 84/53 (63) 96 11/13/19 22:00 109 29 83/48 (60) 98 11/13/19 21:00 120 32 125/70 (88) 99 11/13/19 21:00 40 11/13/19 20:05 110 11/13/19 20:00 40 11/13/19 20:00 Mechanical Ventilator 11/13/19 20:00 98.1 109 27 88/55 (66) 98 11/13/19 19:30 117 37 40 11/13/19 19:00 119 29 93/58 (70) 98 Intake and Output 11/13/19 11/14/19 19:00 07:00 Intake Total 1441.25 ml 1417.6 ml Output Total 1000 ml 900 ml Balance 441.25 ml 517.6 ml Free Water 100 ml IV Total 681.25 ml 867.6 ml Tube Feeding 660 ml 550 ml Output Urine Total 1000 ml 575 ml Stool Total 325 ml # Bowel Movements 100 Laboratory Tests 11/14/19 03:00: White Blood Count 14.9H, Red Blood Count 2.71L, Hemoglobin 8.5L, Hematocrit 24.5L, Mean Corpuscular Volume 90, Mean Corpuscular Hemoglobin 31.3H, Mean Corpuscular Hemoglobin Concent 34.7, Red Cell Distribution Width 14.9H, Platelet Count 173, Mean Platelet Volume 4.7L, Neutrophils (%) (Auto) 80.2H, Lymphocytes (%) (Auto) 11.4L, Monocytes (%) (Auto) 4.8, Eosinophils (%) (Auto) 3.3H, Basophils (%) (Auto) 0.3, Sodium Level 149H, Potassium Level 2.8L, Chloride Level 119H, Carbon Dioxide Level 18L, Anion Gap 12, Blood Urea Nitrogen 52H, Creatinine 1.7H, Estimat Glomerular Filtration Rate 39.3, Glucose Level 74, Calcium Level 6.0#L, Total Bilirubin 0.2, Aspartate Amino Transf (AST/ SGOT) 15, Alanine Aminotransferase (ALT/SGPT) 10L, Alkaline Phosphatase 52, Total Protein 4.5#L, Albumin 0.8L, Globulin 3.7, Albumin/Globulin Ratio 0.2L Height (Feet): 5 Height (Inches): 4.00 Weight (Pounds): 124 General Appearance: lethargic, alert oriented x3, other - on vent Cardiovascular: normal rate Respiratory/Chest: crackles/rales Abdomen: no organomegaly Extremities: pitting, no edema Neurologic: unresponsive Cl Gong MD November 14, 2019 19:01
--- NOTE | 2019-11-14 19:27 | NUR ---
HAND-OFF: Report given to MERLENE Artis. Endorsed plan of care.
--- NOTE | 2019-11-14 19:30 | NUR ---
NURSE NOTES: Received pt obtunded.,Trache to vent on ac mode, SR, -ST low 100s Bp stable, Febrile at this time 100.9f, cooling measures on progress, Tolerating Gt fdg Vital AF 1.2 at 55ml/hr, no residuals, rectal tube to gravity with greenish stool, moderate in amt. . condom cath to gravity with lg amt of urine output, Pt has maintainance IVF D5W +20meq KCL at75ml/hr infusing to left IJ TLC. site with drsg dry and intact. Pt has sacral stage 2 , Left heel DTI and RT foot unstageable. all are covered with optifoam clean and dry, On P 200 mattress. Turned q 2hrs pRN with good skin care done. will continue to monitor.
[2019-11-14] MEDS: Dyna-Hex 2% Top Sol 2oz TOPIC SCH (20:17)
--- NOTE | 2019-11-14 21:30 | NUR ---
NURSE NOTES: Suctioned tk beige secretions lg in amt. Oral care done.
--- NOTE | 2019-11-14 22:00 | Progress Note ---
DATE: 11/14/2019 CARDIOLOGY PROGRESS NOTE SUBJECTIVE: Patient's condition remains critical. He is in the intensive care unit. Prognosis is guarded. Blood pressure parameters are tenuous. Patient remains on ventilator support. Monitor sinus with ectopic atrial beats. PHYSICAL EXAMINATION: VITAL SIGNS: Blood pressure 91/53, heart rate 97, respirations 28, afebrile. LUNGS: Bilateral breath sounds. Rhonchi. No wheezing. CARDIAC: Regular rhythm and rate. Normal S1, S2 with no new murmur. ABDOMEN: Soft. G-tube intact. EXTREMITIES: Trace edema. LABORATORY DATA: Urine culture, KPC. Sputum culture, Acinetobacter multidrug resistant. Blood culture, Staph hominis. White count 14.9, hemoglobin 8.5. Stool occult blood positive. Sodium 149, potassium 2.8, bicarb 18, BUN 52, creatinine 1.7. Albumin 0.8. IMPRESSION: 1. Critical and guarded. 2. Dehydration and hypernatremia. 3. Sepsis with shock. 4. Hypovolemia. 5. Hypokalemia. 6. Hypernatremia. 7. Hyperchloremia. 8. Metabolic acidosis. 9. Metabolic encephalopathy. 10. Toxic encephalopathy. 11. Bacteremia and possible endocarditis. 12. Healthcare-associated pneumonia. 13. Urinary tract infection. 14. Severe protein-calorie malnutrition. PLAN: 1. Ventilator support. 2. Antimicrobials per Infectious Disease home energy consultant. 3. Hypotonic hydration. 4. Potassium replacement. 5. Recheck magnesium. 6. Surveillance blood cultures. 7. Consideration for CHANTAL (transesophageal echocardiogram) to follow. 8. Resume pressors if blood pressure parameters failed to respond to fluid bolus. Franko Pineda M.D. DR: CELINE JOB#: [id number] CC:
--- NOTE | 2019-11-14 23:30 | NUR ---
NURSE NOTES: Pts extremities were contracted. turned q 2hrs prn with good skin care done.
[2019-11-15] VITALS (11 sets, daily range): BP systolic 92–145; BP diastolic 53–110
[2019-11-15] MEDS: D5W w/KCl 20mEq 1,000 ML IV SCH ×2 (01:11→21:41)
--- NOTE | 2019-11-15 02:00 | NUR ---
NURSE NOTES: Complete bath with bed changed was done.
[2019-11-15] MEDS: Colistin 150mg vial IVP SCH ×2 (03:02→14:44)
--- NOTE | 2019-11-15 04:26 | NUR ---
NURSE NOTES: Resting well with vss, afebrile.
[2019-11-15 05:28] LABS: BASOPHILS % (AUTO) 0.4 % (0.0-2.0); EOSINOPHILS % (AUTO) 5.9 % (0.0-3.0); HEMATOCRIT 23.7 % (42.0-52.0); HEMOGLOBIN 8.3 G/DL (14.2-18.0); LYMPHOCYTES % (AUTO) 13.7 % (20.0-45.0); MEAN CORPUSCULAR VOLUME 91 FL (80-99); PLATELET COUNT 163 K/UL (150-450); RED BLOOD COUNT 2.62 M/UL (4.70-6.10); RED CELL DISTRIBUTION WIDTH 15.3 % (11.6-14.8); WHITE BLOOD COUNT 10.7 K/UL (4.8-10.8)
--- NOTE | 2019-11-15 05:30 | NUR ---
HAND-OFF: Report given to Don BLUNT.
[2019-11-15 05:38] LABS: ANION GAP 7 mmol/L (5-15); BLOOD UREA NITROGEN 59 mg/dL (7-18); CALCIUM 8.2 MG/DL (8.5-10.1); CARBON DIOXIDE 23 MMOL/L (21-32); CHLORIDE 111 MMOL/L (98-107); CREATININE 2.2 MG/DL (0.55-1.30); POTASSIUM 4.6 MMOL/L (3.5-5.1); SODIUM 141 MMOL/L (136-145)
[2019-11-15 05:55] LABS: PHOSPHORUS 3.5 MG/DL (2.5-4.9)
[2019-11-15] MEDS ORDERED: D5W w/KCl 20mEq 1,000 ML IV SCH (06:00)
--- NOTE | 2019-11-15 06:30 | NUR ---
NURSE NOTES: Pt transferred to the unit. Stable condition. SR on clinical research monitor. VS WNL. Tolerating well with current vent setting. Picture taken. No belongings noted. Will continue to monitor.
--- NOTE | 2019-11-15 07:34 | NUR ---
HAND-OFF: Report given to MERLENE Villa.
--- NOTE | 2019-11-15 07:34 | NUR ---
NURSE NOTES: Received report from MERLENE Grimaldo. Pt in bed, open eyes and unable to make needs known. IV site in Left IJ TLC running with D5W w/KCL 20mEq @75ml/hr patent and asymptomatic. HOB elevated wtih 45 degree.Side railsx3 up for safety. On low air mattress. Call light within easy reach. On vent with AC 22, tv 450, 40%, peep of 8 and sating 100%. G-tube site intact and patent running with Vital AF @50ml/hr. On rectal tube and on condom cath patent and intact. Will continue plan of care.
[2019-11-15] MEDS: Sodium Citrate 30ml GT SCH ×2 (08:18→12:40)
[2019-11-15] MEDS: Pantoprazole Inj IVP SCH (08:18)
[2019-11-15] MEDS: Multivitamins W/Minerals 15 ML UDC GT SCH (08:18)
[2019-11-15] MEDS: Ascorbic Acid 500mg tab ORAL SCH (08:19)
[2019-11-15] MEDS: levETIRAcetam 500mg/5ml Liquid NG SCH ×2 (08:19→21:41)
[2019-11-15] MEDS: Heparin 5000 units/ml inj SUBQ SCH ×2 (08:22→21:00)
[2019-11-15] MEDS: Acetaminophen 650mg/20.3ml GT PRN ×3 (08:27→22:34)
--- NOTE | 2019-11-15 10:14 | Critical Care Progress Note ---
Assessment/Plan Assessment/Plan IMPRESSION: Leukocytosis, sepsis, pneumonia, rule out COVID, respiratory failure, profound anemia, acute on chronic renal failure, multiple contractures and wounds, severe protein-calorie malnutrition. acidemia bacteremia, UTI, + sputum PLAN vent support without change monitor HH maintain synthroid iv antibiotics noted follow up cultures off load as able monitor acid base and adjust position change as able monitor TSH after dc nutrition off load position change dc planning impression, plan, and exam edited and reviewed in detail care discussed with biochemistry professor - Subjective Interval Events: MOVED TO [facility] ON VENT ON ISOLATION ROS Limited/Unobtainable: Yes Condition: critical EKG Rhythm: Sinus Rhythm I&O: Intake and Output 11/14/19 11/15/19 19:00 07:00 Intake Total 1530.0 ml 1445 ml Output Total 1150 ml 1900 ml Balance 380.0 ml -455 ml Free Water 100 ml 90 ml IV Total 825.0 ml 750 ml Tube Feeding 605 ml 605 ml Output Urine Total 800 ml 1500 ml Stool Total 350 ml 400 ml Critical Care - Objective Last 24 Hour Vital Signs Date Time Temp Pulse Resp B/P (MAP) Pulse Ox O2 Delivery O2 Flow Rate FiO2 11/15/19 08:57 99.9 11/15/19 08:00 100.4 85 22 111/54 (73) 99 11/15/19 08:00 86 11/15/19 08:00 40 11/15/19 08:00 Mechanical Ventilator 11/15/19 06:00 99.5 85 30 105/66 (79) 97 11/15/19 04:00 40 11/15/19 04:00 94 11/15/19 04:00 Mechanical Ventilator 11/15/19 04:00 98.2 91 30 118/73 (88) 99 11/15/19 03:30 89 22 40 11/15/19 03:00 86 30 110/67 (81) 99 11/15/19 02:00 86 24 102/61 (75) 100 11/15/19 01:00 89 24 93/53 (66) 100 11/15/19 00:00 91 11/15/19 00:00 99 11/15/19 00:00 Mechanical Ventilator 11/15/19 00:00 93 33 114/64 (81) 94 11/15/19 00:00 40 5/17/20 23:30 94 34 40 11/14/19 23:00 88 26 107/59 (75) 99 11/14/19 22:00 88 29 102/57 (72) 98 11/14/19 21:00 94 29 108/66 (80) 97 11/14/19 20:00 96 11/14/19 20:00 Mechanical Ventilator 11/14/19 20:00 98.0 96 33 104/60 (75) 93 11/14/19 19:30 96 36 40 11/14/19 19:00 102 31 113/64 (80) 94 11/14/19 18:09 99.0 11/14/19 18:00 100 36 121/68 (85) 94 11/14/19 17:00 100 27 101/56 (71) 94 11/14/19 16:00 40 11/14/19 16:00 Mechanical Ventilator 11/14/19 16:00 99 29 108/63 (78) 94 11/14/19 16:00 99 11/14/19 15:00 94 28 101/53 (69) 96 11/14/19 14:51 100 26 40 11/14/19 14:00 101 32 101/57 (72) 96 11/14/19 13:00 99 28 98/53 (68) 98 11/14/19 12:00 96 28 85/52 (63) 98 11/14/19 12:00 40 11/14/19 12:00 96 11/14/19 12:00 Mechanical Ventilator 11/14/19 11:20 96 31 97 Mechanical Ventilator 40 11/14/19 11:18 96 31 40 11/14/19 11:00 94 28 93/51 (65) 99 Objective: GENERAL: Ill-appearing male. HEENT: Negative. NECK: Supple. Tracheostomy midline. LUNGS: moderate breath sounds. Moderate air entry. no wheeze CARDIAC: RRR without murmurs. rubs gallops ABDOMEN: Soft. G-tube in place. No distention. no HSM EXTREMITIES: Contracted. Reduced skin turgor. NEUROLOGICAL: Poorly responsive, in pain. SKIN: Noted with wounds reviewed. Mansoor Martinez MD November 15, 2019 10:14
--- NOTE | 2019-11-15 10:20 | NUR ---
NURSE NOTES: Dr. Hair notified about the fever 100.5F. No new orders received.
--- NOTE | 2019-11-15 10:49 | General Progress Note ---
Assessment/Plan Problem List: (1) Renal insufficiency ICD Codes: N28.9 - Disorder of kidney and ureter, unspecified SNOMED: 353226944, 409402609 (2) Decubitus skin ulcer ICD Codes: L89.90 - Pressure ulcer of unspecified site, unspecified stage SNOMED: 103399378 (3) Hypernatremia ICD Codes: E87.0 - Hyperosmolality and hypernatremia SNOMED: 044515411 (4) Chronic respiratory failure ICD Codes: J96.10 - Chronic respiratory failure, unspecified whether with hypoxia or hypercapnia SNOMED: 80676959, 0303177 (5) Sepsis ICD Codes: A41.9 - Sepsis, unspecified organism SNOMED: 23543302, 5540981 (6) Tongue laceration ICD Codes: S01.512A - Laceration without foreign body of oral cavity, initial encounter SNOMED: 799918767, 3629114 (7) Dehydration ICD Codes: E86.0 - Dehydration SNOMED: 19950153 (8) Metabolic acidosis ICD Codes: E87.2 - Acidosis SNOMED: 74848167 (9) Pneumonia ICD Codes: J18.9 - Pneumonia, unspecified organism SNOMED: 708624288 (10) Protein-calorie malnutrition, severe ICD Codes: E43 - Unspecified severe protein-calorie malnutrition SNOMED: 879640602, 217090007, 028302346 (11) AUDREY (acute kidney injury) ICD Codes: N17.9 - Acute kidney failure, unspecified SNOMED: 2301524, 59625553 Status: stable Assessment/Plan: pressors as needed ivf iv abx follow up cultures vent support resp rx suctioning gt feeds free water flushes monitor residuals replace k sz rx skin care/wound care critical and guarded Subjective ROS Limited/Unobtainable: Yes Constitutional: Reports: malaise, weakness HEENT: Reports: no symptoms Cardiovascular: Reports: no symptoms Respiratory: Reports: cough, shortness of breath, sputum Gastrointestinal/Abdominal: Reports: no symptoms, difficulty swallowing Genitourinary: Reports: no symptoms Neurologic/Psychiatric: Reports: pre-existing deficit, seizure Endocrine: Reports: no symptoms Hematologic/Lymphatic: Reports: anemia Allergies: Coded Allergies: No Known Allergies (Unverified , 02/23/12) All Systems: reviewed and negative except above Subjective transferred out of the icu. no events. off pressors. no fevers. wbc trending down. on iv abx. multiple positive cultures. Na still high. low k, no reports of bleeding. no szs. poorly responsive. Objective Last 24 Hour Vital Signs Date Time Temp Pulse Resp B/P (MAP) Pulse Ox O2 Delivery O2 Flow Rate FiO2 11/15/19 08:57 99.9 11/15/19 08:00 100.4 85 22 111/54 (73) 99 11/15/19 08:00 86 11/15/19 08:00 40 11/15/19 08:00 Mechanical Ventilator 11/15/19 06:00 99.5 85 30 105/66 (79) 97 11/15/19 04:00 40 11/15/19 04:00 94 11/15/19 04:00 Mechanical Ventilator 11/15/19 04:00 98.2 91 30 118/73 (88) 99 11/15/19 03:30 89 22 40 11/15/19 03:00 86 30 110/67 (81) 99 11/15/19 02:00 86 24 102/61 (75) 100 11/15/19 01:00 89 24 93/53 (66) 100 11/15/19 00:00 91 11/15/19 00:00 99 11/15/19 00:00 Mechanical Ventilator 11/15/19 00:00 93 33 114/64 (81) 94 11/15/19 00:00 40 11/14/19 23:30 94 34 40 11/14/19 23:00 88 26 107/59 (75) 99 11/14/19 22:00 88 29 102/57 (72) 98 11/14/19 21:00 94 29 108/66 (80) 97 11/14/19 20:00 96 11/14/19 20:00 Mechanical Ventilator 11/14/19 20:00 98.0 96 33 104/60 (75) 93 11/14/19 19:30 96 36 40 11/14/19 19:00 102 31 113/64 (80) 94 11/14/19 18:09 99.0 11/14/19 18:00 100 36 121/68 (85) 94 11/14/19 17:00 100 27 101/56 (71) 94 11/14/19 16:00 40 11/14/19 16:00 Mechanical Ventilator 11/14/19 16:00 99 29 108/63 (78) 94 11/14/19 16:00 99 11/14/19 15:00 94 28 101/53 (69) 96 11/14/19 14:51 100 26 40 11/14/19 14:00 101 32 101/57 (72) 96 11/14/19 13:00 99 28 98/53 (68) 98 11/14/19 12:00 96 28 85/52 (63) 98 11/14/19 12:00 40 11/14/19 12:00 96 11/14/19 12:00 Mechanical Ventilator 11/14/19 11:20 96 31 97 Mechanical Ventilator 40 11/14/19 11:18 96 31 40 11/14/19 11:00 94 28 93/51 (65) 99 Intake and Output 11/14/19 11/15/19 19:00 07:00 Intake Total 1530.0 ml 1445 ml Output Total 1150 ml 1900 ml Balance 380.0 ml -455 ml Free Water 100 ml 90 ml IV Total 825.0 ml 750 ml Tube Feeding 605 ml 605 ml Output Urine Total 800 ml 1500 ml Stool Total 350 ml 400 ml Laboratory Tests 11/15/19 04:00: White Blood Count 10.7, Red Blood Count 2.62L, Hemoglobin 8.3L, Hematocrit 23.7L , Mean Corpuscular Volume 91, Mean Corpuscular Hemoglobin 31.6H, Mean Corpuscular Hemoglobin Concent 34.9, Red Cell Distribution Width 15.3H, Platelet Count 163, Mean Platelet Volume 5.3L, Neutrophils (%) (Auto) 76.0H, Lymphocytes (%) (Auto) 13.7L, Monocytes (%) (Auto) 4.0, Eosinophils (%) (Auto) 5.9H, Basophils (%) (Auto) 0.4, Sodium Level 141, Potassium Level 4.6#, Chloride Level 111H, Carbon Dioxide Level 23, Anion Gap 7, Blood Urea Nitrogen 59H, Creatinine 2.2H, Estimat Glomerular Filtration Rate 29.2, Glucose Level 84 , Lactic Acid Level 0.70, Calcium Level 8.2#L, Phosphorus Level 3.5, Magnesium Level 1.2L, Pro-B-Type Natriuretic Peptide 07550J Height (Feet): 5 Height (Inches): 4.00 Weight (Pounds): 125 Objective General Appearance: WD/WN, lethargic, confused EENT: PERRL/EOMI Neck: non-tender, normal alignment, supple Cardiovascular: normal peripheral pulses, normal rate, regular rhythm Respiratory/Chest: chest wall non-tender, lungs clear, normal breath sounds, no respiratory distress Abdomen: normal bowel sounds, non tender, soft, no organomegaly Edema: no edema noted Arm (L), no edema noted Arm (R), no edema noted Leg (L), no edema noted Leg (R), no edema noted Pedal (L), no edema noted Pedal (R), no edema noted Generalized Neurologic: disoriented, unresponsive, aphasia Jimi Tellez MD November 15, 2019 10:49
--- NOTE | 2019-11-15 11:09 | Infectious Diseases Prog Note ---
Assessment/Plan Assessment/Plan antibiotics : colistin iv A 1. acenitobacter pneumonia COVID 19 negative x 2 2. respiratory failure 3. leucocytosis 4. diabetes mellitus 5. seizures 6. CHF 7. klebsiella UTI 8, renal failure improving P 1. continue iv colistin 1 more day 2. will follow up cultures 3. continue isolation Subjective ROS Limited/Unobtainable: Yes Allergies: Coded Allergies: No Known Allergies (Unverified , 02/23/12) Objective Vital Signs Last 24 Hour Vital Signs Date Time Temp Pulse Resp B/P (MAP) Pulse Ox O2 Delivery O2 Flow Rate FiO2 11/15/19 08:57 99.9 11/15/19 08:00 100.4 85 22 111/54 (73) 99 11/15/19 08:00 86 11/15/19 08:00 40 11/15/19 08:00 Mechanical Ventilator 11/15/19 06:00 99.5 85 30 105/66 (79) 97 11/15/19 04:00 40 11/15/19 04:00 94 11/15/19 04:00 Mechanical Ventilator 11/15/19 04:00 98.2 91 30 118/73 (88) 99 11/15/19 03:30 89 22 40 11/15/19 03:00 86 30 110/67 (81) 99 11/15/19 02:00 86 24 102/61 (75) 100 11/15/19 01:00 89 24 93/53 (66) 100 11/15/19 00:00 91 11/15/19 00:00 99 11/15/19 00:00 Mechanical Ventilator 11/15/19 00:00 93 33 114/64 (81) 94 11/15/19 00:00 40 11/14/19 23:30 94 34 40 11/14/19 23:00 88 26 107/59 (75) 99 11/14/19 22:00 88 29 102/57 (72) 98 11/14/19 21:00 94 29 108/66 (80) 97 11/14/19 20:00 96 11/14/19 20:00 Mechanical Ventilator 11/14/19 20:00 98.0 96 33 104/60 (75) 93 11/14/19 19:30 96 36 40 11/14/19 19:00 102 31 113/64 (80) 94 11/14/19 18:09 99.0 11/14/19 18:00 100 36 121/68 (85) 94 11/14/19 17:00 100 27 101/56 (71) 94 11/14/19 16:00 40 11/14/19 16:00 Mechanical Ventilator 11/14/19 16:00 99 29 108/63 (78) 94 11/14/19 16:00 99 11/14/19 15:00 94 28 101/53 (69) 96 11/14/19 14:51 100 26 40 11/14/19 14:00 101 32 101/57 (72) 96 11/14/19 13:00 99 28 98/53 (68) 98 11/14/19 12:00 96 28 85/52 (63) 98 11/14/19 12:00 40 11/14/19 12:00 96 11/14/19 12:00 Mechanical Ventilator 11/14/19 11:20 96 31 97 Mechanical Ventilator 40 11/14/19 11:18 96 31 40 Height (Feet): 5 Height (Inches): 4.00 Weight (Pounds): 125 HEENT: status post trach Respiratory/Chest: lungs clear Cardiovascular: normal rate, regular rhythm, no gallop/murmur Abdomen: soft, non tender, other - GT Extremities: other - + edema Laboratory Tests Test 11/15/19 04:00 White Blood Count 10.7 K/UL (4.8-10.8) Red Blood Count 2.62 M/UL (4.70-6.10) L Hemoglobin 8.3 G/DL (14.2-18.0) L Hematocrit 23.7 % (42.0-52.0) L Mean Corpuscular Volume 91 FL (80-99) Mean Corpuscular Hemoglobin 31.6 PG (27.0-31.0) H Mean Corpuscular Hemoglobin Concent 34.9 G/DL (32.0-36.0) Red Cell Distribution Width 15.3 % (11.6-14.8) H Platelet Count 163 K/UL (150-450) Mean Platelet Volume 5.3 FL (6.5-10.1) L Neutrophils (%) (Auto) 76.0 % (45.0-75.0) H Lymphocytes (%) (Auto) 13.7 % (20.0-45.0) L Monocytes (%) (Auto) 4.0 % (1.0-10.0) Eosinophils (%) (Auto) 5.9 % (0.0-3.0) H Basophils (%) (Auto) 0.4 % (0.0-2.0) Sodium Level 141 MMOL/L (136-145) Potassium Level 4.6 MMOL/L (3.5-5.1) # Chloride Level 111 MMOL/L (98-107) H Carbon Dioxide Level 23 MMOL/L (21-32) Anion Gap 7 mmol/L (5-15) Blood Urea Nitrogen 59 mg/dL (7-18) H Creatinine 2.2 MG/DL (0.55-1.30) H Estimat Glomerular Filtration Rate 29.2 mL/min (>60) Glucose Level 84 MG/DL (74-106) Lactic Acid Level 0.70 mmol/L (0.4-2.0) Calcium Level 8.2 MG/DL (8.5-10.1) #L Phosphorus Level 3.5 MG/DL (2.5-4.9) Magnesium Level 1.2 MG/DL (1.8-2.4) L Pro-B-Type Natriuretic Peptide 08382 pg/mL (0-125) H Current Medications Medications (Trade) Dose Ordered Sig/Lanny Route PRN Reason Start Time Stop Time Status Last Admin Dose Admin Acetaminophen (Tylenol) 650 mg Q4H PRN GT Temp >100.5 11/15/19 06:00 12/14/19 05:59 11/15/19 08:27 Al Hydroxide/Mg Hydroxide (Mylanta) 30 ml Q4H PRN ORAL Nausea & Vomiting 11/15/19 07:15 12/09/19 11:14 Ascorbic Acid (Vitamin C) 500 mg DAILY ORAL 11/15/19 09:00 12/10/19 08:59 11/15/19 08:19 Chlorhexidine Gluconate (Kayla-Hex 2%) 1 applic DAILY@1999 TOPIC 11/15/19 20:00 02/07/20 19:59 Colistimethate Sodium (Colistin) 75 mg Q12H IVP 11/15/19 14:00 11/19/19 13:59 Heparin Sodium (Porcine) (Heparin 5000 units/ml) 5,000 units EVERY 12 HOURS SUBQ 11/15/19 09:00 12/29/19 08:59 11/15/19 08:22 Levetiracetam (Keppra) 750 mg Q12HR NG 11/15/19 09:00 12/09/19 20:59 11/15/19 08:19 Levothyroxine Sodium (Synthroid) 200 mcg DAILY@0630 NG 11/15/19 06:30 12/10/19 06:29 11/15/19 06:25 Magnesium Sulfate 100 ml @ 100 mls/hr Q1H IVPB 11/15/19 11:30 11/15/19 14:29 Multivitamins (Multivitamins W/ Minerals 15ml Liquid) 15 ml DAILY GT 11/15/19 09:00 12/10/19 08:59 11/15/19 08:18 Pantoprazole (Protonix) 40 mg DAILY IVP 11/15/19 09:00 12/10/19 08:59 11/15/19 08:18 Sodium Citrate (Bicitra) 30 ml TID GT 11/15/19 09:00 12/10/19 18:59 11/15/19 08:18 Isaak Hair MD November 15, 2019 11:09
--- NOTE | 2019-11-15 13:15 | NUR ---
HAND-OFF: Report given to Trenton BLUNT. Pt remains stable.
--- NOTE | 2019-11-15 14:30 | NUR ---
NURSE NOTES: Cooling blanket applied
--- NOTE | 2019-11-15 14:44 | NUR ---
CASE MANAGEMENT: REVIEW SI: SEPSIS . KLEBSIELLA UTI . DEHYDRATION T 100.6 HR 71 RR 22 BP 111/54 SAT 95% MECH VENT FIO2 40 H/H 8.3/23.7 BUN 59 CR 2.2 BNP 1278 IS: COLISTIN IV Q12HR PROTONIX IV QD HEPARIN SUBQ Q12HR KEPPRA Q12HR G-TUBE FEEDING STEP DOWN UNIT STATUS DCP: PATIENT IS FROM [facility]
--- NOTE | 2019-11-15 15:53 | NUR ---
*-* INSURANCE *-* UPDATED CLINICALS HAVE BEEN FAXED TO: [facility] [phone] Work Work Fax
--- NOTE | 2019-11-15 16:30 | NUR ---
NURSE NOTES: Noted tachypnea with 44/min and swelling to bilateral arms 4+ pitting edema and scrotum swelling. Made Dr. Tellez aware. ABG ordered.
--- NOTE | 2019-11-15 18:39 | Surgery Progress Note ---
Surgery Progress Note Subjective Additional Comments labs reviewed, exam stable Objective Last 24 Hour Vital Signs Date Time Temp Pulse Resp B/P (MAP) Pulse Ox O2 Delivery O2 Flow Rate FiO2 11/15/19 17:14 97.7 112 40 145/110 (122) 99 11/15/19 16:00 89 11/15/19 16:00 Mechanical Ventilator 11/15/19 16:00 40 11/15/19 16:00 98.6 110 30 92/54 (67) 95 11/15/19 15:15 108 36 40 11/15/19 14:56 101.7 11/15/19 14:10 100.2 11/15/19 12:35 86 33 40 11/15/19 12:00 85 11/15/19 12:00 40 11/15/19 12:00 Mechanical Ventilator 11/15/19 12:00 100.6 71 22 114/67 (83) 95 11/15/19 11:00 74 31 40 11/15/19 10:20 99.9 11/15/19 09:00 83 30 40 11/15/19 08:00 100.4 85 22 111/54 (73) 99 11/15/19 08:00 86 11/15/19 08:00 40 11/15/19 08:00 Mechanical Ventilator 11/15/19 07:21 85 27 40 11/15/19 06:00 99.5 85 30 105/66 (79) 97 11/15/19 04:00 40 11/15/19 04:00 94 11/15/19 04:00 Mechanical Ventilator 11/15/19 04:00 98.2 91 30 118/73 (88) 99 11/15/19 03:30 89 22 40 11/15/19 03:00 86 30 110/67 (81) 99 11/15/19 02:00 86 24 102/61 (75) 100 11/15/19 01:00 89 24 93/53 (66) 100 11/15/19 00:00 91 11/15/19 00:00 99 11/15/19 00:00 Mechanical Ventilator 11/15/19 00:00 93 33 114/64 (81) 94 11/15/19 00:00 40 11/14/19 23:30 94 34 40 11/14/19 23:00 88 26 107/59 (75) 99 11/14/19 22:00 88 29 102/57 (72) 98 11/14/19 21:00 94 29 108/66 (80) 97 11/14/19 20:00 96 11/14/19 20:00 Mechanical Ventilator 11/14/19 20:00 98.0 96 33 104/60 (75) 93 11/14/19 19:30 96 36 40 11/14/19 19:00 102 31 113/64 (80) 94 I&O Intake and Output 11/14/19 11/15/19 19:00 07:00 Intake Total 1530.0 ml 1445 ml Output Total 1150 ml 1900 ml Balance 380.0 ml -455 ml Free Water 100 ml 90 ml IV Total 825.0 ml 750 ml Tube Feeding 605 ml 605 ml Output Urine Total 800 ml 1500 ml Stool Total 350 ml 400 ml Dressing: saturated Cardiovascular: RSR Respiratory: decreased breath sounds Abdomen: soft, present bowel sounds Extremities: no cyanosis Laboratory Tests Test 11/15/19 04:00 11/15/19 17:36 White Blood Count 10.7 K/UL (4.8-10.8) Red Blood Count 2.62 M/UL (4.70-6.10) L Hemoglobin 8.3 G/DL (14.2-18.0) L Hematocrit 23.7 % (42.0-52.0) L Mean Corpuscular Volume 91 FL (80-99) Mean Corpuscular Hemoglobin 31.6 PG (27.0-31.0) H Mean Corpuscular Hemoglobin Concent 34.9 G/DL (32.0-36.0) Red Cell Distribution Width 15.3 % (11.6-14.8) H Platelet Count 163 K/UL (150-450) Mean Platelet Volume 5.3 FL (6.5-10.1) L Neutrophils (%) (Auto) 76.0 % (45.0-75.0) H Lymphocytes (%) (Auto) 13.7 % (20.0-45.0) L Monocytes (%) (Auto) 4.0 % (1.0-10.0) Eosinophils (%) (Auto) 5.9 % (0.0-3.0) H Basophils (%) (Auto) 0.4 % (0.0-2.0) Sodium Level 141 MMOL/L (136-145) Potassium Level 4.6 MMOL/L (3.5-5.1) # Chloride Level 111 MMOL/L (98-107) H Carbon Dioxide Level 23 MMOL/L (21-32) Anion Gap 7 mmol/L (5-15) Blood Urea Nitrogen 59 mg/dL (7-18) H Creatinine 2.2 MG/DL (0.55-1.30) H Estimat Glomerular Filtration Rate 29.2 mL/min (>60) Glucose Level 84 MG/DL (74-106) Lactic Acid Level 0.70 mmol/L (0.4-2.0) Calcium Level 8.2 MG/DL (8.5-10.1) #L Phosphorus Level 3.5 MG/DL (2.5-4.9) Magnesium Level 1.2 MG/DL (1.8-2.4) L Pro-B-Type Natriuretic Peptide 89162 pg/mL (0-125) H Arterial Blood pH 7.319 (7.350-7.450) Arterial Blood Partial Pressure CO2 38.9 mmHg (35.0-45.0) Arterial Blood Partial Pressure O2 74.5 mmHg (75.0-100.0) L Arterial Blood HCO3 19.5 mmol/L (22.0-26.0) L Arterial Blood Oxygen Saturation 93.0 % (95-100) L Arterial Blood Base Excess -6.0 (-2-2) L Urbano Test Positive Plan Problems: (1) Elevated LFTs (2) Malnutrition (3) Respiratory insufficiency (4) Tracheal stenosis Assessment & Plan: Tracheostomy and left central venous catheter remain in place. Vascularity is normal. Hazy infiltrates again noted not significantly changed. Cardiac and mediastinal silhouette are within normal limits. Left effusion unchanged. The bony thorax appear unremarkable. (5) Suspected COVID-19 virus infection Assessment & Plan: negative (6) CKD (chronic kidney disease) stage 3, GFR 30-59 ml/min (7) Chronic respiratory failure (8) Sepsis (9) Tongue laceration (10) Acute on chronic anemia (11) Dehydration (12) UTI (urinary tract infection) (13) Metabolic acidosis (14) Pneumonia (15) Protein-calorie malnutrition, severe (16) AUDREY (acute kidney injury) (17) Decubitus skin ulcer Assessment & Plan: Pt presented on admission with contractures. Resolving full thickness pressure injury Sacrum and R buttocks. Hyperpigmentation with scarring noted with small open area that is moist and viable within injured field. darker skin tone without induration periwound. Resolving pressure injury R heel. Hyperpigmentation with small area of erythema within base of injury with loose callused and dry necrotic edges. Full thickness pressure injury R Hallux. Base of wound is dl with scattered slough. Bone is palpable. Dark, dry brown borders. Full thickness lateral and plantar R 1st metatarsal.Base of wound is 25% necrotic ,75% dl. An area of necrosis noted at nail matrix. L heel is boggy with non-blanching erythema. Tx.Plan: Apply Moisture Barrier Paste to Sacrum,R and L Buttocks. Cover with Optifoam drsgs. Change every 3 days and prn. Apply Betadine to R hallux and R 1st metatarsal. Cover with Optifoam drsg. Change every 3 days and prn. Apply Betadine to R heel. Cover R heel with Optifoam drsg. Change every 3 days and prn. Apply Cavilon Skin Barrier to L heel. Cover with Optifoam drsg. Change every 7 days and prn. Reposition at least every 2hours or as tolerated. Place pillow between knees. Off-load heels with pillow. (18) Hypernatremia (19) Renal insufficiency Rehan Geronimo November 15, 2019 18:39
--- NOTE | 2019-11-15 18:53 | NUR ---
NURSE NOTES: Made Dr. Tellez aware of ABG results. Awaiting for reply.
--- NOTE | 2019-11-15 19:10 | NUR ---
Respiratory Note: Pt received stable on CMV with current settings. AC 22, 450, 40%, +8. Alarms are on and audible. Vent circuit and sx tubbing are secure and out of the way. No s/s of respiratory distress noted at this time. Will continue to monitor.
--- NOTE | 2019-11-15 19:20 | NUR ---
NURSE NOTES: No new order received from Dr. Tellez
--- NOTE | 2019-11-15 19:25 | NUR ---
HAND-OFF: Report given to MERLENE Adamson. Pt remains stable.
--- NOTE | 2019-11-15 19:43 | Nephrology Progress Note ---
Assessment/Plan Problem List: (1) Metabolic acidosis (2) AUDREY (acute kidney injury) (3) UTI (urinary tract infection) (4) Pneumonia (5) Protein-calorie malnutrition, severe (6) Dehydration (7) Chronic respiratory failure (8) Sepsis (9) Acute on chronic anemia (10) Hypernatremia (11) Hypokalemia Plan continue hydration,kcl howard , broad spectrum atb,pulm care Subjective ROS Limited/Unobtainable: Yes Objective Objective Last 24 Hour Vital Signs Date Time Temp Pulse Resp B/P (MAP) Pulse Ox O2 Delivery O2 Flow Rate FiO2 11/15/19 17:14 97.7 112 40 145/110 (122) 99 11/15/19 16:00 89 11/15/19 16:00 Mechanical Ventilator 11/15/19 16:00 40 11/15/19 16:00 98.6 110 30 92/54 (67) 95 11/15/19 15:15 108 36 40 11/15/19 14:56 101.7 11/15/19 14:10 100.2 11/15/19 12:35 86 33 40 11/15/19 12:00 85 11/15/19 12:00 40 11/15/19 12:00 Mechanical Ventilator 11/15/19 12:00 100.6 71 22 114/67 (83) 95 11/15/19 11:00 74 31 40 11/15/19 10:20 99.9 11/15/19 09:00 83 30 40 11/15/19 08:00 100.4 85 22 111/54 (73) 99 11/15/19 08:00 86 11/15/19 08:00 40 11/15/19 08:00 Mechanical Ventilator 11/15/19 07:21 85 27 40 11/15/19 06:00 99.5 85 30 105/66 (79) 97 11/15/19 04:00 40 11/15/19 04:00 94 11/15/19 04:00 Mechanical Ventilator 11/15/19 04:00 98.2 91 30 118/73 (88) 99 11/15/19 03:30 89 22 40 11/15/19 03:00 86 30 110/67 (81) 99 11/15/19 02:00 86 24 102/61 (75) 100 11/15/19 01:00 89 24 93/53 (66) 100 11/15/19 00:00 91 11/15/19 00:00 99 11/15/19 00:00 Mechanical Ventilator 11/15/19 00:00 93 33 114/64 (81) 94 11/15/19 00:00 40 11/14/19 23:30 94 34 40 11/14/19 23:00 88 26 107/59 (75) 99 11/14/19 22:00 88 29 102/57 (72) 98 11/14/19 21:00 94 29 108/66 (80) 97 11/14/19 20:00 96 11/14/19 20:00 Mechanical Ventilator 11/14/19 20:00 98.0 96 33 104/60 (75) 93 Intake and Output 11/14/19 11/15/19 19:00 07:00 Intake Total 1530.0 ml 1575 ml Output Total 1150 ml 1900 ml Balance 380.0 ml -325 ml Free Water 100 ml 90 ml IV Total 825.0 ml 825 ml Tube Feeding 605 ml 660 ml Output Urine Total 800 ml 1500 ml Stool Total 350 ml 400 ml Laboratory Tests 11/15/19 04:00: White Blood Count 10.7, Red Blood Count 2.62L, Hemoglobin 8.3L, Hematocrit 23.7L , Mean Corpuscular Volume 91, Mean Corpuscular Hemoglobin 31.6H, Mean Corpuscular Hemoglobin Concent 34.9, Red Cell Distribution Width 15.3H, Platelet Count 163, Mean Platelet Volume 5.3L, Neutrophils (%) (Auto) 76.0H, Lymphocytes (%) (Auto) 13.7L, Monocytes (%) (Auto) 4.0, Eosinophils (%) (Auto) 5.9H, Basophils (%) (Auto) 0.4, Sodium Level 141, Potassium Level 4.6#, Chloride Level 111H, Carbon Dioxide Level 23, Anion Gap 7, Blood Urea Nitrogen 59H, Creatinine 2.2H, Estimat Glomerular Filtration Rate 29.2, Glucose Level 84 , Lactic Acid Level 0.70, Calcium Level 8.2#L, Phosphorus Level 3.5, Magnesium Level 1.2L, Pro-B-Type Natriuretic Peptide 49571C 11/15/19 17:36: Arterial Blood pH 7.319L, Arterial Blood Partial Pressure CO2 38.9, Arterial Blood Partial Pressure O2 74.5L, Arterial Blood HCO3 19.5L, Arterial Blood Oxygen Saturation 93.0L, Arterial Blood Base Excess -6.0L, Urbano Test Positive Height (Feet): 5 Height (Inches): 4.00 Weight (Pounds): 125 General Appearance: other - on vent Cardiovascular: regular rhythm Respiratory/Chest: rhonchi - bilaterally Abdomen: no organomegaly Extremities: no edema Neurologic: unresponsive Cl Gong MD November 15, 2019 19:43
--- NOTE | 2019-11-15 19:49 | NUR ---
NURSE NOTES: Received report from MERLENE Villa, pt in bed- opens eyes- non-verbal- unable to make needs known, no signs or symptoms of acute cardiac or respiratory distress noted, bed in lowest position, call light within easy reach, side rails up x's3 and safety brakes locked in position, side rails padded for seizure precautions- no seizure activity noted- upon assessment, pt. appears to be tolerating current vent settings well- AC 12, TV 450, FIo2 at 40%, and peep 8- no distress noted, G tube intact running Vital AF @50cc/hr- no residual noted, rectal tube intact and draining to gravity, condom cath intact and draining to gravity, pt. has Left IJ TLC Intact and patent, Will continue to monitor pt. and with plan of care. Addendum: 11/15/19 at 2232 by ZAIDA STATON RN RN correction to message above AC rate is 22.
--- NOTE | 2019-11-15 19:49 | NUR ---
NURSE NOTES: Blood noted in suction canister- will continue to monitor pt.
[2019-11-15] MEDS ORDERED: Dyna-Hex 2% Top Sol 2oz TOPIC SCH (20:00)
--- NOTE | 2019-11-15 21:42 | NUR ---
NURSE NOTES: Bleeding noted with oral suctioning- Heparin Held- will continue to monitor pt./ Will continue to monitor pt. and with plan of care.
--- NOTE | 2019-11-15 23:54 | NUR ---
NURSE NOTES: bed bath given- linens changed, no bleeding noted- during oral care- will continue to monitor pt. and with plan of care.
[2019-11-16] VITALS: BP 90/50
[2019-11-16] MEDS: Colistin 150mg vial IVP SCH (01:09)
[2019-11-16] MEDS: Acetaminophen 650mg/20.3ml GT PRN (03:12)
[2019-11-16 04:00] VITALS: BP 101/55
--- NOTE | 2019-11-16 05:00 | NUR ---
RESPIRATORY NOTE: PT REMAINED STABLE ON CMV WITH CURRENT SETTINGS. SX PRN. AIRWAY IS SECURE, MIDLINE AND PATENT. VENT CIRCUIT IS SECURE AND OUT OF THE WAY. NO S/S OF RESPIRATORY DISTRESS NOTED AT THIS TIME.
[2019-11-16 05:40] LABS: ANION GAP 6 mmol/L (5-15); BLOOD UREA NITROGEN 60 mg/dL (7-18); CALCIUM 8.8 MG/DL (8.5-10.1); CARBON DIOXIDE 24 MMOL/L (21-32); CHLORIDE 109 MMOL/L (98-107); CREATININE 2.2 MG/DL (0.55-1.30); POTASSIUM 4.5 MMOL/L (3.5-5.1); SODIUM 139 MMOL/L (136-145)
--- NOTE | 2019-11-16 06:44 | Progress Note ---
DATE: 11/15/2019 CARDIOLOGY PROGRESS NOTE SUBJECTIVE: The patient is off pressors. Continues on IV therapy and IV fluids. Monitored rhythm sinus and sinus tachycardia with atrial ectopy. PHYSICAL EXAMINATION: VITAL SIGNS: T-max 100.4, blood pressure 111/54, heart rate 85, and respiratory rate 22. LUNGS: Bilateral breath sounds. Rhonchi. CARDIAC: Regular rhythm and rate. Normal S1, S2. HEENT: Thin trach secretions. ABDOMEN: Soft. EXTREMITIES: No edema. LABORATORY DATA: White count 10.7, hemoglobin 8.3. Potassium 4.6, BUN 59, creatinine 2.2. Magnesium 1.2. Pro natriuretic peptide 12,000. ABG 7.32, 39, 74. IMPRESSION: 1. Respiratory failure. 2. Sepsis with recovering shock. 3. Severe hypomagnesemia. 4. Metabolic acidosis. 5. Acute on chronic renal failure. 6. Acute on chronic diastolic congestive heart failure. 7. Status post non-ST elevation infarction. 8. Healthcare-associated pneumonia. PLAN: 1. Antimicrobials. 2. Ventilator support. 3. IV magnesium. 4. Cautious hydration. 5. Monitor renal function. 6. No diuresis at this time. 7. DVT prophylaxis. Franko Pineda M.D. DR: CELINE JOB#: [id number] CC:
--- NOTE | 2019-11-16 07:09 | NUR ---
NURSE NOTES: Received report from MERLENE Adamson. Pt in bed awake and obtunded, non-verbal. IV site in LIJ TLC patent and asymptomatic running with D5 KCL 20mEQ @50ml/hr. Noted edema to bilateral arms and scrotum. Bed in lowest position and locked. g-tube patent and intact, running with Vital AF @55ml/hr. Call light within easy reach. Side railsx3 up for safety. HOB elevated with 45 degree. On vent setting with AC 22, 450, 40%, Peep 8, tolerating well with sating 98%. On condom cath patent and intact. Will continue plan of care.
--- NOTE | 2019-11-16 07:09 | NUR ---
HAND-OFF: Report given to Allen, RN- pt.remains stable and no signs of distress noted. Nurse aware to notify doctor of any am abnormal labs.
[2019-11-16 08:00] VITALS: BP 100/55
--- NOTE | 2019-11-16 08:12 | Critical Care Progress Note ---
Assessment/Plan Assessment/Plan IMPRESSION: Leukocytosis, sepsis, pneumonia, rule out COVID, respiratory failure, profound anemia, acute on chronic renal failure, multiple contractures and wounds, severe protein-calorie malnutrition. acidemia bacteremia, UTI, + sputum PLAN vent support maintain synthroid off antibiotics off load as able monitor acid base and adjust position change as able nutrition off load position change dc planning to snf impression, plan, and exam edited and reviewed in detail care discussed with storeroom attendant - Subjective ROS Limited/Unobtainable: Yes Condition: stable EKG Rhythm: Sinus Rhythm Residuals: minimal Tube Feeding Tolerated: yes I&O: Intake and Output 11/15/19 11/16/19 19:00 07:00 Intake Total 1210 ml 1116 ml Output Total 1930 ml 750 ml Balance -720 ml 366 ml Free Water 100 ml 100 ml IV Total 450 ml 466 ml Tube Feeding 660 ml 550 ml Output Urine Total 1800 ml 750 ml Stool Total 130 ml # Bowel Movements 75 Critical Care - Objective Last 24 Hour Vital Signs Date Time Temp Pulse Resp B/P (MAP) Pulse Ox O2 Delivery O2 Flow Rate FiO2 11/16/19 05:00 92 31 40 11/16/19 04:00 98.5 91 22 101/55 (70) 98 11/16/19 04:00 Mechanical Ventilator 11/16/19 04:00 40 11/16/19 03:55 91 11/16/19 03:45 98.5 11/16/19 02:35 86 31 40 11/16/19 01:10 86 31 40 11/16/19 00:00 98.1 93 22 90/50 (63) 97 11/16/19 00:00 40 11/16/19 00:00 Mechanical Ventilator 11/15/19 23:23 97 11/15/19 23:20 97 27 40 11/15/19 21:47 99.6 11/15/19 20:30 96 28 40 11/15/19 20:00 Mechanical Ventilator 11/15/19 20:00 97.5 109 22 139/91 (107) 95 11/15/19 20:00 40 11/15/19 19:18 91 11/15/19 19:10 90 26 40 11/15/19 17:14 97.7 112 40 145/110 (122) 99 11/15/19 16:00 89 11/15/19 16:00 Mechanical Ventilator 11/15/19 16:00 40 11/15/19 16:00 98.6 110 30 92/54 (67) 95 11/15/19 15:15 108 36 40 11/15/19 14:56 101.7 11/15/19 12:35 86 33 40 11/15/19 12:00 85 11/15/19 12:00 40 11/15/19 12:00 Mechanical Ventilator 11/15/19 12:00 100.6 71 22 114/67 (83) 95 11/15/19 11:00 74 31 40 11/15/19 10:20 99.9 11/15/19 09:00 83 30 40 Labs: Labs Test 11/13/19 17:50 11/14/19 03:00 11/15/19 04:00 11/15/19 17:36 Stool Occult Blood Positive (NEGATIVE) White Blood Count 14.9 K/UL (4.8-10.8) 10.7 K/UL (4.8-10.8) Red Blood Count 2.71 M/UL (4.70-6.10) 2.62 M/UL (4.70-6.10) Hemoglobin 8.5 G/DL (14.2-18.0) 8.3 G/DL (14.2-18.0) Hematocrit 24.5 % (42.0-52.0) 23.7 % (42.0-52.0) Mean Corpuscular Volume 90 FL (80-99) 91 FL (80-99) Mean Corpuscular Hemoglobin 31.3 PG (27.0-31.0) 31.6 PG (27.0-31.0) Mean Corpuscular Hemoglobin Concent 34.7 G/DL (32.0-36.0) 34.9 G/DL (32.0-36.0) Red Cell Distribution Width 14.9 % (11.6-14.8) 15.3 % (11.6-14.8) Platelet Count 173 K/UL (150-450) 163 K/UL (150-450) Mean Platelet Volume 4.7 FL (6.5-10.1) 5.3 FL (6.5-10.1) Neutrophils (%) (Auto) 80.2 % (45.0-75.0) 76.0 % (45.0-75.0) Lymphocytes (%) (Auto) 11.4 % (20.0-45.0) 13.7 % (20.0-45.0) Monocytes (%) (Auto) 4.8 % (1.0-10.0) 4.0 % (1.0-10.0) Eosinophils (%) (Auto) 3.3 % (0.0-3.0) 5.9 % (0.0-3.0) Basophils (%) (Auto) 0.3 % (0.0-2.0) 0.4 % (0.0-2.0) Sodium Level 149 MMOL/L (136-145) 141 MMOL/L (136-145) Potassium Level 2.8 MMOL/L (3.5-5.1) 4.6 MMOL/L (3.5-5.1) Chloride Level 119 MMOL/L (98-107) 111 MMOL/L (98-107) Carbon Dioxide Level 18 MMOL/L (21-32) 23 MMOL/L (21-32) Anion Gap 12 mmol/L (5-15) 7 mmol/L (5-15) Blood Urea Nitrogen 52 mg/dL (7-18) 59 mg/dL (7-18) Creatinine 1.7 MG/DL (0.55-1.30) 2.2 MG/DL (0.55-1.30) Estimat Glomerular Filtration Rate 39.3 mL/min (>60) 29.2 mL/min (>60) Glucose Level 74 MG/DL (74-106) 84 MG/DL (74-106) Calcium Level 6.0 MG/DL (8.5-10.1) 8.2 MG/DL (8.5-10.1) Total Bilirubin 0.2 MG/DL (0.2-1.0) Aspartate Amino Transf (AST/SGOT) 15 U/L (15-37) Alanine Aminotransferase (ALT/SGPT) 10 U/L (12-78) Alkaline Phosphatase 52 U/L (46-116) Total Protein 4.5 G/DL (6.4-8.2) Albumin 0.8 G/DL (3.4-5.0) Globulin 3.7 g/dL Albumin/Globulin Ratio 0.2 (1.0-2.7) Lactic Acid Level 0.70 mmol/L (0.4-2.0) Phosphorus Level 3.5 MG/DL (2.5-4.9) Magnesium Level 1.2 MG/DL (1.8-2.4) Pro-B-Type Natriuretic Peptide 07960 pg/mL (0-125) Arterial Blood pH 7.319 (7.350-7.450) Arterial Blood Partial Pressure CO2 38.9 mmHg (35.0-45.0) Arterial Blood Partial Pressure O2 74.5 mmHg (75.0-100.0) Arterial Blood HCO3 19.5 mmol/L (22.0-26.0) Arterial Blood Oxygen Saturation 93.0 % (95-100) Arterial Blood Base Excess -6.0 (-2-2) Urbano Test Positive Test 11/16/19 04:00 Sodium Level 139 MMOL/L (136-145) Potassium Level 4.5 MMOL/L (3.5-5.1) Chloride Level 109 MMOL/L (98-107) Carbon Dioxide Level 24 MMOL/L (21-32) Anion Gap 6 mmol/L (5-15) Blood Urea Nitrogen 60 mg/dL (7-18) Creatinine 2.2 MG/DL (0.55-1.30) Estimat Glomerular Filtration Rate 29.2 mL/min (>60) Glucose Level 90 MG/DL (74-106) Calcium Level 8.8 MG/DL (8.5-10.1) Magnesium Level 1.7 MG/DL (1.8-2.4) Objective: GENERAL: Ill-appearing male. HEENT: Negative. NECK: Supple. Tracheostomy midline. LUNGS: moderate breath sounds. Moderate air entry. no wheeze CARDIAC: RRR without murmurs. rubs gallops ABDOMEN: Soft. G-tube in place. No distention. no HSM EXTREMITIES: Contracted. Reduced skin turgor. NEUROLOGICAL: Poorly responsive, in pain. SKIN: Noted with wounds reviewed. Mansoor Martinez MD November 16, 2019 08:12
[2019-11-16] MEDS: Ascorbic Acid 500mg tab ORAL SCH (08:50)
[2019-11-16] MEDS: Multivitamins W/Minerals 15 ML UDC GT SCH (08:50)
[2019-11-16] MEDS: Pantoprazole Inj IVP SCH (08:50)
[2019-11-16] MEDS: levETIRAcetam 500mg/5ml Liquid NG SCH (08:51)
--- NOTE | 2019-11-16 09:20 | NUR ---
NURSE NOTES: Made Dr. Salcedo aware of Pt's edema got worse. Per Dr. Salcedo it's okay to discharge to SNF
--- NOTE | 2019-11-16 09:49 | NUR ---
*-* DISCHARGE PLANNING *-* PATIENT HAS BEEN REFERRED BACK TO: [facility] P; [phone] F: [phone] EFAX: [phone] Addendum: 11/16/19 at 1130 by LON TORO CM *-* [facility] ARE WAITING ON AUTH FROM [employer] TO ASSIGN ROOM *--* Addendum: 11/16/19 at 1255 by FIFI MARIE CM PER BECK / [facility] WILL RETURN ASSISTED ASSISTED AUTH HAS BEEN REQUESTED FROM [employer] [facility] SUBACUTE AWAITING ASSISTED AUTH SUBACUTE INFORMED OF 11/14 PATIENT POSITIVE FOR C-DIFF SUBACUTE NEEDS TO ARRANGE AN ISOLATION ROOM CM WILL FOLLOW UP Addendum: 11/16/19 at 1416 by FIFI MARIE CM PER BECK / GUANACO [place] PATIENT IS ACCEPTED BACK TO RM# [id number] [place] AWAITING ASSISTED AUTH FROM [facility] Addendum: 11/16/19 at 1536 by FIFI MARIE CM PER BECK [facility] ASSISTED AUTH WAS OBTAINED PATIENT WILL TRANSFER BACK TO THE FACILITY TO RM# [id number] [phone] IN AGREEMENT WITH PATIENT RETURNING TO THIS FACILITY TRANSPORTATION [facility]IA [facility] [id number] / CLINICAL DOCUMENTATION SPECIALIST TIME 17:30
--- NOTE | 2019-11-16 10:39 | Infectious Diseases Prog Note ---
Assessment/Plan Assessment/Plan antibiotics : colistin iv A 1. acenitobacter pneumonia s/p rx COVID 19 negative x 2 2. respiratory failure 3. leucocytosis resolved 4. diabetes mellitus 5. seizures 6. CHF 7. klebsiella UTI s/p rx 8, renal failure 9. fever improving P 1. d/c iv colistin 2. observe off antibiotics 3. d/c isolation Subjective ROS Limited/Unobtainable: Yes Allergies: Coded Allergies: No Known Allergies (Unverified , 02/23/12) Objective Vital Signs Last 24 Hour Vital Signs Date Time Temp Pulse Resp B/P (MAP) Pulse Ox O2 Delivery O2 Flow Rate FiO2 11/16/19 08:00 40 11/16/19 08:00 86 11/16/19 08:00 Mechanical Ventilator 11/16/19 08:00 98.0 88 22 100/55 (70) 98 11/16/19 07:36 84 33 40 11/16/19 05:00 92 31 40 11/16/19 04:00 98.5 91 22 101/55 (70) 98 11/16/19 04:00 Mechanical Ventilator 11/16/19 04:00 40 11/16/19 03:55 91 11/16/19 03:45 98.5 11/16/19 02:35 86 31 40 11/16/19 01:10 86 31 40 11/16/19 00:00 98.1 93 22 90/50 (63) 97 11/16/19 00:00 40 11/16/19 00:00 Mechanical Ventilator 11/15/19 23:23 97 11/15/19 23:20 97 27 40 11/15/19 21:47 99.6 11/15/19 20:30 96 28 40 11/15/19 20:00 Mechanical Ventilator 11/15/19 20:00 97.5 109 22 139/91 (107) 95 11/15/19 20:00 40 11/15/19 19:18 91 11/15/19 19:10 90 26 40 11/15/19 17:14 97.7 112 40 145/110 (122) 99 11/15/19 16:00 89 11/15/19 16:00 Mechanical Ventilator 11/15/19 16:00 40 11/15/19 16:00 98.6 110 30 92/54 (67) 95 11/15/19 15:15 108 36 40 11/15/19 14:56 101.7 11/15/19 12:35 86 33 40 11/15/19 12:00 85 11/15/19 12:00 40 11/15/19 12:00 Mechanical Ventilator 11/15/19 12:00 100.6 71 22 114/67 (83) 95 11/15/19 11:00 74 31 40 Height (Feet): 5 Height (Inches): 4.00 Weight (Pounds): 126 HEENT: status post trach Laboratory Tests Test 11/15/19 17:36 11/16/19 04:00 Arterial Blood pH 7.319 (7.350-7.450) Arterial Blood Partial Pressure CO2 38.9 mmHg (35.0-45.0) Arterial Blood Partial Pressure O2 74.5 mmHg (75.0-100.0) L Arterial Blood HCO3 19.5 mmol/L (22.0-26.0) L Arterial Blood Oxygen Saturation 93.0 % (95-100) L Arterial Blood Base Excess -6.0 (-2-2) L Urbano Test Positive Sodium Level 139 MMOL/L (136-145) Potassium Level 4.5 MMOL/L (3.5-5.1) Chloride Level 109 MMOL/L (98-107) H Carbon Dioxide Level 24 MMOL/L (21-32) Anion Gap 6 mmol/L (5-15) Blood Urea Nitrogen 60 mg/dL (7-18) H Creatinine 2.2 MG/DL (0.55-1.30) H Estimat Glomerular Filtration Rate 29.2 mL/min (>60) Glucose Level 90 MG/DL (74-106) Calcium Level 8.8 MG/DL (8.5-10.1) Magnesium Level 1.7 MG/DL (1.8-2.4) L Current Medications Medications (Trade) Dose Ordered Sig/Lanny Route PRN Reason Start Time Stop Time Status Last Admin Dose Admin Acetaminophen (Tylenol) 650 mg Q4H PRN GT Temp >100.5 11/15/19 06:00 12/14/19 05:59 11/16/19 03:12 Al Hydroxide/Mg Hydroxide (Mylanta) 30 ml Q4H PRN ORAL Nausea & Vomiting 11/15/19 07:15 12/09/19 11:14 Ascorbic Acid (Vitamin C) 500 mg DAILY ORAL 11/15/19 09:00 12/10/19 08:59 11/16/19 08:50 Chlorhexidine Gluconate (Kayla-Hex 2%) 1 applic DAILY@1999 TOPIC 11/15/19 20:00 02/07/20 19:59 11/15/19 21:41 Colistimethate Sodium (Colistin) 75 mg Q12H IVP 11/15/19 14:00 11/19/19 13:59 11/16/19 01:09 Dextrose/ Electrolytes 1,000 ml @ 50 mls/hr Q20H IV 11/15/19 20:00 12/15/19 19:59 11/15/19 21:41 Lansoprazole (Prevacid) 15 mg DAILY GT 11/17/19 09:00 12/17/19 08:59 Levetiracetam (Keppra) 750 mg Q12HR NG 11/15/19 09:00 12/09/19 20:59 11/16/19 08:51 Levothyroxine Sodium (Synthroid) 200 mcg DAILY@0630 NG 11/15/19 06:30 12/10/19 06:29 11/16/19 06:00 Magnesium Sulfate 100 ml @ 100 mls/hr Q1H IVPB 11/16/19 08:45 11/16/19 10:44 11/16/19 10:36 Multivitamins (Multivitamins W/ Minerals 15ml Liquid) 15 ml DAILY GT 11/15/19 09:00 12/10/19 08:59 11/16/19 08:50 Isaak Hair MD November 16, 2019 10:39
--- NOTE | 2019-11-16 10:45 | NUR ---
NURSE NOTES: Received report from Daniel BLUNT.
--- NOTE | 2019-11-16 10:45 | NUR ---
HAND-OFF: Report given to MERLENE Peña. Pt remains stable.
--- NOTE | 2019-11-16 11:10 | NUR ---
NURSE NOTES: Received a call from Microbiology pt. positive C-diff. Informed C.M due to pt. about to d/c at [facility]. CN called Dr. Flynn. Awaiting for response.
--- NOTE | 2019-11-16 11:14 | NUR ---
NURSE NOTES: Received a call from Dr. Flynn and she will put in order for Vancomycin via GT.
--- NOTE | 2019-11-16 11:28 | NUR ---
*-* INSURANCE *-* UPDATED CLINICALS HAVE BEEN FAXED TO: [facility] [phone] Work Work Fax
[2019-11-16 12:00] VITALS: BP 106/64
--- NOTE | 2019-11-16 12:16 | NUR ---
CASE MANAGEMENT: REVIEW SI: SEPSIS . KLEBSIELLA UTI . DEHYDRATION T 98.1 HR 93 RR 31 BP 90/50 SAT 97% MECH VENT FIO2 40 H/H 8.3/23.7 BUN 60 CR 2.2 MAG 1.7 POSITIVE FOR C-DIFF IS: COLISTIN IV Q12HR PROTONIX IV QD HEPARIN SUBQ Q12HR KEPPRA Q12HR G-TUBE FEEDING RECTAL TUBE STEP DOWN UNIT STATUS DCP: PATIENT IS FROM [facility]
--- NOTE | 2019-11-16 13:07 | Surgery Progress Note ---
Surgery Progress Note Subjective Additional Comments leukocytosis stable exam unchanged labs noted doing well great nursing care Objective Last 24 Hour Vital Signs Date Time Temp Pulse Resp B/P (MAP) Pulse Ox O2 Delivery O2 Flow Rate FiO2 11/16/19 11:09 86 30 40 11/16/19 08:00 40 11/16/19 08:00 86 11/16/19 08:00 Mechanical Ventilator 11/16/19 08:00 98.0 88 22 100/55 (70) 98 11/16/19 07:36 84 33 40 11/16/19 05:00 92 31 40 11/16/19 04:00 98.5 91 22 101/55 (70) 98 11/16/19 04:00 Mechanical Ventilator 11/16/19 04:00 40 11/16/19 03:55 91 11/16/19 03:45 98.5 11/16/19 02:35 86 31 40 11/16/19 01:10 86 31 40 11/16/19 00:00 98.1 93 22 90/50 (63) 97 11/16/19 00:00 40 11/16/19 00:00 Mechanical Ventilator 11/15/19 23:23 97 11/15/19 23:20 97 27 40 11/15/19 21:47 99.6 11/15/19 20:30 96 28 40 11/15/19 20:00 Mechanical Ventilator 11/15/19 20:00 97.5 109 22 139/91 (107) 95 11/15/19 20:00 40 11/15/19 19:18 91 11/15/19 19:10 90 26 40 11/15/19 17:14 97.7 112 40 145/110 (122) 99 11/15/19 16:00 89 11/15/19 16:00 Mechanical Ventilator 11/15/19 16:00 40 11/15/19 16:00 98.6 110 30 92/54 (67) 95 11/15/19 15:15 108 36 40 11/15/19 14:56 101.7 I&O Intake and Output 11/15/19 11/16/19 19:00 07:00 Intake Total 1210 ml 1116 ml Output Total 1930 ml 750 ml Balance -720 ml 366 ml Free Water 100 ml 100 ml IV Total 450 ml 466 ml Tube Feeding 660 ml 550 ml Output Urine Total 1800 ml 750 ml Stool Total 130 ml # Bowel Movements 75 Dressing: saturated Wound: other Drains: other Cardiovascular: RSR Respiratory: decreased breath sounds Abdomen: soft, present bowel sounds Extremities: no cyanosis Laboratory Tests Test 11/15/19 17:36 11/16/19 04:00 Arterial Blood pH 7.319 (7.350-7.450) Arterial Blood Partial Pressure CO2 38.9 mmHg (35.0-45.0) Arterial Blood Partial Pressure O2 74.5 mmHg (75.0-100.0) L Arterial Blood HCO3 19.5 mmol/L (22.0-26.0) L Arterial Blood Oxygen Saturation 93.0 % (95-100) L Arterial Blood Base Excess -6.0 (-2-2) L Urbano Test Positive Sodium Level 139 MMOL/L (136-145) Potassium Level 4.5 MMOL/L (3.5-5.1) Chloride Level 109 MMOL/L (98-107) H Carbon Dioxide Level 24 MMOL/L (21-32) Anion Gap 6 mmol/L (5-15) Blood Urea Nitrogen 60 mg/dL (7-18) H Creatinine 2.2 MG/DL (0.55-1.30) H Estimat Glomerular Filtration Rate 29.2 mL/min (>60) Glucose Level 90 MG/DL (74-106) Calcium Level 8.8 MG/DL (8.5-10.1) Magnesium Level 1.7 MG/DL (1.8-2.4) L Plan Problems: (1) Elevated LFTs (2) Malnutrition (3) Respiratory insufficiency (4) Tracheal stenosis Assessment & Plan: Tracheostomy and left central venous catheter remain in place. Vascularity is normal. Hazy infiltrates again noted not significantly changed. Cardiac and mediastinal silhouette are within normal limits. Left effusion unchanged. The bony thorax appear unremarkable. (5) Suspected COVID-19 virus infection Assessment & Plan: negative (6) CKD (chronic kidney disease) stage 3, GFR 30-59 ml/min (7) Chronic respiratory failure (8) Sepsis (9) Tongue laceration (10) Acute on chronic anemia (11) Dehydration (12) UTI (urinary tract infection) (13) Metabolic acidosis (14) Pneumonia (15) Protein-calorie malnutrition, severe (16) AUDREY (acute kidney injury) (17) Decubitus skin ulcer Assessment & Plan: Pt presented on admission with contractures. Resolving full thickness pressure injury Sacrum and R buttocks. Hyperpigmentation with scarring noted with small open area that is moist and viable within injured field. darker skin tone without induration periwound. Resolving pressure injury R heel. Hyperpigmentation with small area of erythema within base of injury with loose callused and dry necrotic edges. Full thickness pressure injury R Hallux. Base of wound is dl with scattered slough. Bone is palpable. Dark, dry brown borders. Full thickness lateral and plantar R 1st metatarsal.Base of wound is 25% necrotic ,75% dl. An area of necrosis noted at nail matrix. L heel is boggy with non-blanching erythema. Tx.Plan: Apply Moisture Barrier Paste to Sacrum,R and L Buttocks. Cover with Optifoam drsgs. Change every 3 days and prn. Apply Betadine to R hallux and R 1st metatarsal. Cover with Optifoam drsg. Change every 3 days and prn. Apply Betadine to R heel. Cover R heel with Optifoam drsg. Change every 3 days and prn. Apply Cavilon Skin Barrier to L heel. Cover with Optifoam drsg. Change every 7 days and prn. Reposition at least every 2hours or as tolerated. Place pillow between knees. Off-load heels with pillow. (18) Hypernatremia (19) Renal insufficiency Rehan Geronimo November 16, 2019 13:07
[2019-11-16] MEDS: Vancomycin oral 125mg/2.5ml ORAL SCH ×2 (13:52→18:00)
--- NOTE | 2019-11-16 14:32 | General Progress Note ---
Assessment/Plan Problem List: (1) Renal insufficiency ICD Codes: N28.9 - Disorder of kidney and ureter, unspecified SNOMED: 284681097, 696968184 (2) Decubitus skin ulcer ICD Codes: L89.90 - Pressure ulcer of unspecified site, unspecified stage SNOMED: 240119262 (3) Hypernatremia ICD Codes: E87.0 - Hyperosmolality and hypernatremia SNOMED: 893017326 (4) Chronic respiratory failure ICD Codes: J96.10 - Chronic respiratory failure, unspecified whether with hypoxia or hypercapnia SNOMED: 47973765, 4049994 (5) Sepsis ICD Codes: A41.9 - Sepsis, unspecified organism SNOMED: 02448552, 4774545 (6) Tongue laceration ICD Codes: S01.512A - Laceration without foreign body of oral cavity, initial encounter SNOMED: 984796202, 1483261 (7) Dehydration ICD Codes: E86.0 - Dehydration SNOMED: 30783412 (8) Metabolic acidosis ICD Codes: E87.2 - Acidosis SNOMED: 79317467 (9) Pneumonia ICD Codes: J18.9 - Pneumonia, unspecified organism SNOMED: 559678904 (10) Protein-calorie malnutrition, severe ICD Codes: E43 - Unspecified severe protein-calorie malnutrition SNOMED: 632149569, 928252473, 835242811 (11) AUDREY (acute kidney injury) ICD Codes: N17.9 - Acute kidney failure, unspecified SNOMED: 6782623, 08024158 Status: stable Assessment/Plan: monitor off abx vent support resp rx suctioning gt feeds free water flushes monitor residuals replace mg sz rx skin care/wound care dc planning Subjective ROS Limited/Unobtainable: Yes Constitutional: Reports: malaise, weakness HEENT: Reports: no symptoms Cardiovascular: Reports: no symptoms Respiratory: Reports: cough, shortness of breath, sputum Gastrointestinal/Abdominal: Reports: difficulty swallowing Genitourinary: Reports: no symptoms Neurologic/Psychiatric: Reports: pre-existing deficit, seizure Endocrine: Reports: no symptoms Hematologic/Lymphatic: Reports: anemia Allergies: Coded Allergies: No Known Allergies (Unverified , 02/23/12) All Systems: reviewed and negative except above Subjective no events.stable on the vent. poorly responsive at baseline. h/h stable. low mg noted. completed abx per id. Objective Last 24 Hour Vital Signs Date Time Temp Pulse Resp B/P (MAP) Pulse Ox O2 Delivery O2 Flow Rate FiO2 11/16/19 12:00 85 11/16/19 12:00 40 11/16/19 12:00 Mechanical Ventilator 11/16/19 11:09 86 30 40 11/16/19 08:00 40 11/16/19 08:00 86 11/16/19 08:00 Mechanical Ventilator 11/16/19 08:00 98.0 88 22 100/55 (70) 98 11/16/19 07:36 84 33 40 11/16/19 05:00 92 31 40 11/16/19 04:00 98.5 91 22 101/55 (70) 98 11/16/19 04:00 Mechanical Ventilator 11/16/19 04:00 40 11/16/19 03:55 91 11/16/19 03:45 98.5 11/16/19 02:35 86 31 40 11/16/19 01:10 86 31 40 11/16/19 00:00 98.1 93 22 90/50 (63) 97 11/16/19 00:00 40 11/16/19 00:00 Mechanical Ventilator 11/15/19 23:23 97 11/15/19 23:20 97 27 40 11/15/19 21:47 99.6 11/15/19 20:30 96 28 40 11/15/19 20:00 Mechanical Ventilator 11/15/19 20:00 97.5 109 22 139/91 (107) 95 11/15/19 20:00 40 11/15/19 19:18 91 11/15/19 19:10 90 26 40 11/15/19 17:14 97.7 112 40 145/110 (122) 99 11/15/19 16:00 89 11/15/19 16:00 Mechanical Ventilator 11/15/19 16:00 40 11/15/19 16:00 98.6 110 30 92/54 (67) 95 11/15/19 15:15 108 36 40 11/15/19 14:56 101.7 Intake and Output 11/15/19 11/16/19 19:00 07:00 Intake Total 1210 ml 1116 ml Output Total 1930 ml 750 ml Balance -720 ml 366 ml Free Water 100 ml 100 ml IV Total 450 ml 466 ml Tube Feeding 660 ml 550 ml Output Urine Total 1800 ml 750 ml Stool Total 130 ml # Bowel Movements 75 Laboratory Tests 11/15/19 17:36: Arterial Blood pH 7.319L, Arterial Blood Partial Pressure CO2 38.9, Arterial Blood Partial Pressure O2 74.5L, Arterial Blood HCO3 19.5L, Arterial Blood Oxygen Saturation 93.0L, Arterial Blood Base Excess -6.0L, Urbano Test Positive 11/16/19 04:00: Sodium Level 139, Potassium Level 4.5, Chloride Level 109H, Carbon Dioxide Level 24, Anion Gap 6, Blood Urea Nitrogen 60H, Creatinine 2.2H, Estimat Glomerular Filtration Rate 29.2, Glucose Level 90, Calcium Level 8.8, Magnesium Level 1.7L Height (Feet): 5 Height (Inches): 4.00 Weight (Pounds): 126 Objective General Appearance: WD/WN, lethargic, confused EENT: PERRL/EOMI Neck: non-tender, normal alignment, supple Cardiovascular: normal peripheral pulses, normal rate, regular rhythm Respiratory/Chest: chest wall non-tender, lungs clear, normal breath sounds, no respiratory distress Abdomen: normal bowel sounds, non tender, soft, no organomegaly Edema: no edema noted Arm (L), no edema noted Arm (R), no edema noted Leg (L), no edema noted Leg (R), no edema noted Pedal (L), no edema noted Pedal (R), no edema noted Generalized Neurologic: disoriented, unresponsive, aphasia Jimi Tellez MD November 16, 2019 14:32
[2019-11-16 16:00] VITALS: BP 103/64
[2019-11-16] MEDS: D5W w/KCl 20mEq 1,000 ML IV SCH (16:00)
--- NOTE | 2019-11-16 16:33 | NUR ---
NURSE NOTES: Called [facility] and gave report to Mojgan BLUNT.
[2019-11-16] MEDS ORDERED: VANCOCIN250 MG ORAL (16:53)
--- NOTE | 2019-11-16 17:06 | NUR ---
NURSE NOTES: Removed left IJ no s/sx of bleeding noted on the site. Non-admin for IVF pt. about to be discharged.
--- NOTE | 2019-11-16 19:02 | Nephrology Progress Note ---
Assessment/Plan Problem List: (1) Metabolic acidosis (2) AUDREY (acute kidney injury) (3) UTI (urinary tract infection) (4) Pneumonia (5) Protein-calorie malnutrition, severe (6) Dehydration (7) Chronic respiratory failure (8) Sepsis (9) Acute on chronic anemia (10) Hypernatremia (11) Hypokalemia Plan continue hydration,kcl howard , broad spectrum atb,pulm care Subjective ROS Limited/Unobtainable: Yes Objective Objective Last 24 Hour Vital Signs Date Time Temp Pulse Resp B/P (MAP) Pulse Ox O2 Delivery O2 Flow Rate FiO2 11/16/19 16:10 82 11/16/19 16:00 40 11/16/19 16:00 Mechanical Ventilator 11/16/19 16:00 97.9 83 18 103/64 (77) 100 11/16/19 15:29 83 22 40 11/16/19 12:00 97.1 86 20 106/64 (78) 99 11/16/19 12:00 85 11/16/19 12:00 40 11/16/19 12:00 Mechanical Ventilator 11/16/19 11:09 86 30 40 11/16/19 08:00 40 11/16/19 08:00 86 11/16/19 08:00 Mechanical Ventilator 11/16/19 08:00 98.0 88 22 100/55 (70) 98 11/16/19 07:36 84 33 40 11/16/19 05:00 92 31 40 11/16/19 04:00 98.5 91 22 101/55 (70) 98 11/16/19 04:00 Mechanical Ventilator 11/16/19 04:00 40 11/16/19 03:55 91 11/16/19 03:45 98.5 11/16/19 02:35 86 31 40 11/16/19 01:10 86 31 40 11/16/19 00:00 98.1 93 22 90/50 (63) 97 11/16/19 00:00 40 11/16/19 00:00 Mechanical Ventilator 11/15/19 23:23 97 11/15/19 23:20 97 27 40 11/15/19 21:47 99.6 11/15/19 20:30 96 28 40 11/15/19 20:00 Mechanical Ventilator 11/15/19 20:00 97.5 109 22 139/91 (107) 95 11/15/19 20:00 40 11/15/19 19:18 91 11/15/19 19:10 90 26 40 Intake and Output 11/15/19 11/16/19 19:00 07:00 Intake Total 1210 ml 1116 ml Output Total 1930 ml 750 ml Balance -720 ml 366 ml Free Water 100 ml 100 ml IV Total 450 ml 466 ml Tube Feeding 660 ml 550 ml Output Urine Total 1800 ml 750 ml Stool Total 130 ml # Bowel Movements 75 Laboratory Tests 11/16/19 04:00: Sodium Level 139, Potassium Level 4.5, Chloride Level 109H, Carbon Dioxide Level 24, Anion Gap 6, Blood Urea Nitrogen 60H, Creatinine 2.2H, Estimat Glomerular Filtration Rate 29.2, Glucose Level 90, Calcium Level 8.8, Magnesium Level 1.7L Height (Feet): 5 Height (Inches): 4.00 Weight (Pounds): 126 General Appearance: lethargic, other - on vent Cardiovascular: regular rhythm Respiratory/Chest: rhonchi - bilaterally Abdomen: non tender, soft Extremities: no edema Neurologic: unresponsive Cl Gong MD November 16, 2019 19:02
[2019-11-16] MEDS ORDERED: NS 275ml ONE (19:48)
[2019-11-16] MEDS ORDERED: Tubing IV Secondary IV ONE (19:48)
--- NOTE | 2019-11-17 03:45 | Progress Note ---
DATE: 11/16/2019 CARDIOLOGY PROGRESS NOTE SUBJECTIVE: Patient is at baseline level of responsiveness, which is minimal. He is on ventilator support with no distress. Monitored rhythm sinus. Rare atrial ectopics. Blood pressure parameters low normal range. PHYSICAL EXAMINATION: VITAL SIGNS: Afebrile, blood pressure 90/50 to 100/55, heart rate in the 80s, respiratory rate 22 to 33. HEENT: Thin secretions from trach site. CARDIAC: Regular rhythm and rate. Normal S1, S2. LUNGS: Coarse rhonchi. ABDOMEN: Soft with G-tube. EXTREMITIES: Trace edema. LABORATORY DATA: Sodium 139, potassium 4.5, bicarb 24, BUN 60, creatinine 2.2. Magnesium 1.7. IMPRESSION: 1. Sepsis with recovered shock. 2. Healthcare-acquired pneumonia recovering. 3. Non-ST elevation myocardial infarction without complications. 4. Acute on chronic diastolic congestive heart failure, compensated. 5. Metabolic acidosis, resolved. 6. Hypomagnesemia, improving. PLAN: 1. Antimicrobials. 2. Ongoing ventilator support. 3. Additional IV magnesium. 4. No additional hydration. 5. Periodic diuresis based on clinical parameters. 6. Discharge plan to subacute facility noted. 7. Discharge medication regimen reviewed. 8. Patient is stable for discharge, but remains high risk. Franko Pineda M.D. DR: CELINE JOB#: [id number] CC:
[2019-11-17] MEDS ORDERED: Lansoprazole 15mg cap GT SCH (09:00)
--- NOTE | 2019-11-17 13:47 | NUR ---
*-* INSURANCE *-* UPDATED CLINICALS AND DISCHARGE INSTRUCTIONS FAXED NO DISCHARGE [place] IN THE SYSTEM. [facility] [phone] Work Work Fax
== END 2019-11-16 19:49 | DRG 720 ==
LOC: EDBD 06:23 → EMR 06:45 → MERGE 06:45 → ICU 07:43 → EDBEDREQSVC 07:58 → EDBEDREQ 07:58 → 2W 11-15 05:53
PROC: 0CQ7XZZ Repair Tongue, External Approach (ICD-10-PCS; principal; 2019-11-09)
PROC: 5A1955Z Respiratory Ventilation, Greater than 96 Consecutive Hours (ICD-10-PCS; principal; 2019-11-09)
PROC: 05HN33Z Insertion of Infusion Device into Left Internal Jugular Vein, Percutaneous Approach (ICD-10-PCS; principal; 2019-11-09)
DX: A41.9 Sepsis, unspecified organism (principal); E43 Unspecified severe protein-calorie malnutrition; N17.9 Acute kidney failure, unspecified; N39.0 Urinary tract infection, site not specified; E86.0 Dehydration; J96.10 Chronic respiratory failure, unspecified whether with hypoxia or hypercapnia; J15.6 Pneumonia due to other Gram-negative bacteria; E87.0 Hyperosmolality and hypernatremia; S01.512A Laceration without foreign body of oral cavity, initial encounter; R65.21 Severe sepsis with septic shock; X58.XXXA Exposure to other specified factors, initial encounter; Y92.129 Unspecified place in nursing home as the place of occurrence of the external cause; G40.909 Epilepsy, unspecified, not intractable, without status epilepticus; G93.40 Encephalopathy, unspecified; I21.4 Non-ST elevation (NSTEMI) myocardial infarction; E83.42 Hypomagnesemia; D62 Acute posthemorrhagic anemia; Z93.0 Tracheostomy status; Z93.1 Gastrostomy status; Z74.01 Bed confinement status; Z99.11 Dependence on respirator [ventilator] status; N18.3 Chronic kidney disease, stage 3 (moderate); Z68.21 Body mass index [BMI] 21.0-21.9, adult; I48.0 Paroxysmal atrial fibrillation; J39.8 Other specified diseases of upper respiratory tract; L89.156 Pressure-induced deep tissue damage of sacral region; L89.316 Pressure-induced deep tissue damage of right buttock; E87.1 Hypo-osmolality and hyponatremia; I50.32 Chronic diastolic (congestive) heart failure; E87.8 Other disorders of electrolyte and fluid balance, not elsewhere classified; E87.6 Hypokalemia; Z20.828 Contact with and (suspected) exposure to other viral communicable diseases
CPT/HCPCS: 36415; 36600; 71045; 80048; 80053; 80202; 81003; 82270; 82570; 82803; 82962; 83605; 83735; 83880; 84100; 84300; 84443; 84484; 85007; 85025; 85610; 85730; 86850; 86900; 86901; 86920; 87040; 87070; 87086; 87181; 87205; 87324; 87635; 93005; 94002; 94003; 94664; 96365; 96368; 96375; 99291; J7030; J8499

== ENCOUNTER 2020-03-05 05:30 | Inpatient (IN) | payer MEDICARE, MEDICAID ==
[~2020-03-05] VITALS: Ht 170.2 cm; Wt 75.0 kg
[2020-03-05] VITALS (44 sets, daily range): BP systolic 79–150; BP diastolic 43–122
[~2020-03-05 05:30] MED LIST changes: +FAMOTIDINE20 MG GT; +REVLIMID10 MG GT; -REVLIMID10 MG PO; +VANCOCIN250 MG GT; +VITAMIN B-1100 MG GT; -VITAMIN B-1100 MG PO
--- NOTE | 2020-03-05 05:42 | Emergency Room Report ---
History of Present Illness General Chief Complaint: Vomiting Source: Medical Record, EMS (Gonzales Russell MD) Present Illness HPI This is an unfortunate 79-year-old male with a history of respiratory failure with tracheostomy and feeding tube. He has a history of epilepsy, kidney disease quadriplegia. He presents with chief complaint of nausea and vomiting with questionable coffee-ground emesis. He also has respiratory distress. Onset tonight. No reported fever. No diarrhea. Patient is coming from a fdc. History is from the fdc and EMS. Patient unable to give any history. (Gonzales Russell MD) Allergies: Coded Allergies: No Known Allergies (Unverified , 02/23/12) COVID-19 Screening Contact w/high risk pt: No Recent Travel to affected area: No Experienced COVID-19 symptoms?: No COVID-19 symptoms experienced: Shortness of Breath COVID-19 Testing performed DIE FINISHER: No (Gonzales Russell MD) Patient History Past Medical History: see triage record, old chart reviewed Past Surgical History: other Pertinent Family History: none Social History: Denies: smoking Immunizations: UTD Reviewed Nursing Documentation: PMH: Agreed; PSxH: Agreed (Gonzales Russell MD) Nursing Documentation-PMH Hx Cardiac Problems: No - Paroxysmal Atrial Fibrolation Hx Hypertension: Yes Hx Diabetes: Yes Hx Cancer: No Hx Gastrointestinal Problems: Yes - G-tube, GERD, dysphagia Hx Neurological Problems: No Hx Cerebrovascular Accident: Yes Hx Seizures: Yes Hx Epilepsy: Yes (Gonzales Russell MD) Review of Systems Respiratory: Reports: shortness of breath Gastrointestinal: Reports: nausea, vomiting All Other Systems: limited - Patient is nonverbal (Gonzales Russell MD) Physical Exam Vital Signs Date Time Temp Pulse Resp B/P (MAP) Pulse Ox O2 Delivery O2 Flow Rate FiO2 03/05/20 05:30 100 24 99/60 (73) 98 Trach Collar Vitals with mild hypotension Sp02 EP Interpretation: abnormal General Appearance: moderate distress, Chronically Ill Head: normocephalic, atraumatic Eyes: bilateral eye PERRL, bilateral eye EOMI ENT: hearing grossly normal, dry mucus membranes Neck: full range of motion, supple, no meningismus, tracheotomy Respiratory: chest non-tender, respiratory distress, decreased breath sounds, accessory muscle use, rhonchi Cardiovascular #1: regular rate, rhythm, no murmur, tachycardia Gastrointestinal: normal bowel sounds, non tender, no mass, no organomegaly, no bruit, non-distended, other - G-tube Musculoskeletal: non-tender Neurologic: other - Unresponsive Psychiatric: other (Gonzales Russell MD) Procedures Central Line Central Line : Consent: Emergent Central Line Lumen: triple Maximal Sterile Barrier Tech: yes cap, yes mask, yes sterile gown, yes sterile gloves, yes large sterile sheet, yes hand hygiene, yes chlorhexidine prep Central Line Postion: femoral (L) Anesthesia: local US Guided Line?: No Complications: none Central Line Post Position: sutured, good blood return Attempts: One Patient Tolerated: Well Complications: None (Danny Vitale M.D.) Medical Decision Making Diagnostic Impression: Primary Impression: Respiratory failure Qualified Codes: J96.01 - Acute respiratory failure with hypoxia Additional Impressions: Aspiration pneumonia Qualified Codes: O74.0 - Aspiration pneumonitis due to anesthesia during labor and delivery Sepsis Qualified Codes: A41.9 - Sepsis, unspecified organism; R65.20 - Severe sepsis without septic shock; N17.9 - Acute kidney failure, unspecified ARF (acute renal failure) Qualified Codes: N17.9 - Acute kidney failure, unspecified Hyperkalemia Anemia Qualified Codes: D64.9 - Anemia, unspecified HCAP (healthcare-associated pneumonia) ER Course Patient presents with respiratory distress. Chest x-ray show bilateral infiltrates. Most likely aspiration. Laboratory data is pending. I will sign this patient out to the oncoming doctor. Patient will be admitted. Prognosis poor. Condition critical. (Gonzales Russell MD) ER Course Total critical care time: Approximately 60 minutes Due to a high probability of clinically significant, life threatening deterioration, the patient required the highest level of preparedness to intervene emergently and I personally spent this critical care time directly and personally managing the patient. This critical care time included obtaining a history, examining the patient, pulse oximetry, ordering and reviewing studies , ordering treatments, evaluating response to treatment and updating management plan as needed, frequent reassessment and discussion with other providers as well as arranging for ultimate disposition. This critical to care time was performed to assess and manage the high probability of life-threatening deterioration that could result in multiorgan failure. This critical care time is separate from the separately billable procedures and treating other patients. Sepsis reevaluation: I, Dr. Danny Vitale, reevaluated the patient Capillary refill: Less than 2 seconds MAP: 69 Heart rate: 104 Respiratory rate: 30 Initial Lactate: 3.4 Repeat Lactate: 2.4 Pressors: levophed No signs of fluid overload EKG: Tachycardic 132 bpm. Sinus rhythm. Rightward axis. No ectopy. Right bundle branch block pattern. T wave inversions in V1, V2, V3. Possible peaked T waves in V5 and V6 730: Care was transitioned to myself from the night physician. Patient had normal oxygen saturation on the ventilator. He was tachycardic in the 130s on arrival to the emergency department. After 30 cc/kg fluid bolus patient was still hypotensive with a mean arterial pressure of around 60. Central line was placed in the left femoral vein as patient was highly contracted and had no other suitable anatomy. Central line successfully placed with good blood return from all ports. Levophed was started with good resolution of the patient 's hypotension.. Heart rate improved to 102. Repeat lactate improved. Chest x-ray revealed bibasilar consolidations worse in the right lower lobe. Patient was started on vancomycin, cefepime, Flagyl. Concern for aspiration pneumonia. Potassium was 6.8. Patient was given calcium, insulin, dextrose, Lasix. 30 cc/ kg fluid bolus had initially been given for septic shock. Patient had a repeat potassium drawn after these medications were given. Repeat K improved.. Admitting physician informed. Patient will be admitted to ICU. Laboratory Tests Test 03/05/20 05:37 03/05/20 06:00 03/05/20 07:32 03/05/20 08:07 Lactic Acid Level 3.10 mmol/L (0.4-2.0) H 2.30 mmol/L (0.4-2.0) H White Blood Count 54.2 K/UL (4.8-10.8) *H Red Blood Count 2.78 M/UL (4.70-6.10) L Hemoglobin 9.3 G/DL (14.2-18.0) L Hematocrit 28.7 % (42.0-52.0) L Mean Corpuscular Volume 103 FL (80-99) H Mean Corpuscular Hemoglobin 33.4 PG (27.0-31.0) H Mean Corpuscular Hemoglobin Concent 32.4 G/DL (32.0-36.0) Red Cell Distribution Width 13.8 % (11.6-14.8) Platelet Count 537 K/UL (150-450) H Mean Platelet Volume 5.7 FL (6.5-10.1) L Neutrophils (%) (Auto) % (45.0-75.0) Lymphocytes (%) (Auto) % (20.0-45.0) Monocytes (%) (Auto) % (1.0-10.0) Eosinophils (%) (Auto) % (0.0-3.0) Basophils (%) (Auto) % (0.0-2.0) Differential Total Cells Counted 100 Neutrophils % (Manual) 79 % (45-75) H Lymphocytes % (Manual) 1 % (20-45) L Monocytes % (Manual) 5 % (1-10) Eosinophils % (Manual) 0 % (0-3) Basophils % (Manual) 0 % (0-2) Band Neutrophils 15 % (0-8) H Platelet Estimate Increased H Platelet Morphology Normal Macrocytosis 1+ Sodium Level 131 MMOL/L (136-145) L Potassium Level 6.8 MMOL/L (3.5-5.1) *H Pending Chloride Level 101 MMOL/L (98-107) Carbon Dioxide Level 14 MMOL/L (21-32) L Anion Gap 16 mmol/L (5-15) H Blood Urea Nitrogen 172 mg/dL (7-18) H Creatinine 4.3 MG/DL (0.55-1.30) H Estimated Glomerular Filtration Rate 13.5 mL/min (>60) Glucose Level 122 MG/DL (74-106) H Calcium Level 11.7 MG/DL (8.5-10.1) H Total Bilirubin 0.3 MG/DL (0.2-1.0) Aspartate Amino Transferase (AST) 23 U/L (15-37) Alanine Aminotransferase (ALT) 51 U/L (12-78) Alkaline Phosphatase 145 U/L (46-116) H Total Creatine Kinase 19 U/L (26-308) L Creatine Kinase MB 1.8 NG/ML (0.0-3.6) Creatine Kinase MB Relative Index 9.4 Troponin I 0.000 ng/mL (0.000-0.056) Total Protein 9.0 G/DL (6.4-8.2) H Albumin 1.9 G/DL (3.4-5.0) L Globulin 7.1 g/dL Albumin/Globulin Ratio 0.3 (1.0-2.7) L Microbiology Date/Time Source Procedure Growth Status 03/05/20 06:00 Nasopharynx SARS-CoV-2 RdRp Gene Assay - Final Complete (Danny Vitale M.D.) EKG Diagnostic Results Rate: tachycardiac Rhythm: NSR ST Segments: other - NSST changes (Gonzales Russell MD) Rhythm Strip Diag. Results EP Interpretation: yes Rate: 120 Rhythm: NSR, no PVC's (Gonzales Russell MD) Chest X-Ray Diagnostic Results Chest X-Ray Diagnostic Results : Chest X-Ray Ordered: Yes # of Views/Limited/Complete: 1 View Indication: Shortness of Breath Interpretation: no effusion, no pneumothorax, other - b/l infiltrates Impression: Other - b/l infiltrates Electronically Signed by: Gonzales Russell MD (Gonzales Russell MD) Last Vital Signs Date Time Temp Pulse Resp B/P (MAP) Pulse Ox O2 Delivery O2 Flow Rate FiO2 03/05/20 05:30 100 24 99/60 (73) 98 Trach Collar Status: improved (Gonzales Russell MD) Disposition: ADMITTED INPATIENT Condition: Critical Gonzales Russell MD Mar 05, 2020 05:42 Danny Vitale M.D. Mar 05, 2020 06:20
[2020-03-05] MEDS ORDERED: Cefepime HCl 2 GM in D5W 55 ML IVPB ONE (05:45)
[2020-03-05] MEDS ORDERED: Acetaminophen 650 MG SUPP RECTAL ONE (05:45)
[2020-03-05] MEDS ORDERED: EPOGEN20000 UNI1 SUBQ (06:14)
[2020-03-05 06:27] LABS: HEMATOCRIT 28.7 % (42.0-52.0); HEMOGLOBIN 9.3 G/DL (14.2-18.0); MEAN CORPUSCULAR VOLUME 103 FL (80-99); PLATELET COUNT 537 K/UL (150-450); RED BLOOD COUNT 2.78 M/UL (4.70-6.10); RED CELL DISTRIBUTION WIDTH 13.8 % (11.6-14.8)
[2020-03-05 06:30] LABS: WHITE BLOOD COUNT 54.2 K/UL (4.8-10.8)
[2020-03-05] MEDS ORDERED: Vancomycin 1 GM in NS 275 ML IVPB ONE (06:45)
[2020-03-05 06:51] LABS: ALANINE AMINOTRANSFERASE 51 U/L (12-78); ALBUMIN 1.9 G/DL (3.4-5.0); ALBUMIN/GLOBULIN RATIO 0.3 (1.0-2.7); ALKALINE PHOSPHATASE 145 U/L (46-116); ANION GAP 16 mmol/L (5-15); ASPARTATE AMINO TRANSFERASE 23 U/L (15-37); BILIRUBIN,TOTAL 0.3 MG/DL (0.2-1.0); BLOOD UREA NITROGEN 172 mg/dL (7-18); CALCIUM 11.7 MG/DL (8.5-10.1); CARBON DIOXIDE 14 MMOL/L (21-32); CHLORIDE 101 MMOL/L (98-107); CKMB 1.8 NG/ML (0.0-3.6); CREATINE KINASE 19 U/L (26-308); CREATININE 4.3 MG/DL (0.55-1.30); SODIUM 131 MMOL/L (136-145)
[2020-03-05 06:53] LABS: POTASSIUM 6.8 MMOL/L (3.5-5.1)
[2020-03-05] MEDS ORDERED: Insulin Human Regular 100units/ml 3ml IV ONE (07:15)
[2020-03-05] MEDS ORDERED: Calcium Gluconate 1gm/10ml vial IVP ONE (07:15)
--- NOTE | 2020-03-05 07:50 | Diagnostic Imaging Report ---
EXAM: XR Chest, 1 View CLINICAL HISTORY: SOB TECHNIQUE: Frontal view of the chest. COMPARISON: Chest x-ray dated 11/20/2019. FINDINGS: Lungs: Persistent bilateral airspace disease which has increased at the bases. Interstitial markings are prominent. Pleural space: Unremarkable. No pneumothorax. Heart: Unremarkable. No cardiomegaly. Mediastinum: Unremarkable. Bones/joints: Bones are demineralized. Unremarkable. Tubes, lines and devices: Tracheostomy remains in place. Upper abdomen: Marked gas-distended stomach and/or colon. IMPRESSION: 1. Interval increase of the bibasilar opacities which may represent an infectious process or atelectasis. 2. Marked gaseous distention of the stomach and/or colon. Bowel obstruction cannot be excluded.
[2020-03-05] MEDS ORDERED: Acetaminophen 650mg/20.3ml ORAL PRN (08:30)
[2020-03-05] MEDS ORDERED: levETIRAcetam 500mg/5ml Liquid GT SCH (09:00)
[2020-03-05] MEDS ORDERED: Docusate 100mg cap ORAL SCH (09:00)
[2020-03-05] MEDS ORDERED: Heparin 5000 units/ml inj SUBQ SCH (09:00)
[2020-03-05] MEDS: Sodium Bicarbonate 50 ML in D5 1/2NS 1,000 ML IV SCH ×2 (10:36→18:14)
[2020-03-05] MEDS: Piperacillin/Tazobactam 2.25 GM in NS 55 ML IVPB SCH ×2 (10:36→18:14)
[2020-03-05] MEDS: Docusate 100mg/10ml Liq GT SCH ×3 (10:44→18:00)
[2020-03-05] MEDS: Levothyroxine 25mcg tab GT SCH (10:45)
[2020-03-05] MEDS: Levothyroxine 125mcg tab GT SCH (10:45)
[2020-03-05] MEDS: Ascorbic Acid 500mg tab GT SCH (10:45)
--- NOTE | 2020-03-05 11:29 | History and Physical Report ---
DATE OF ADMISSION: 03/05/2020 CHIEF COMPLAINT: Sepsis and shock. HISTORY OF PRESENT ILLNESS: The patient is an unfortunate 79-year-old male, well known to me. He has a history of stroke, encephalopathy, chronic respiratory failure, hypertension, and diabetes. He was transferred from a [facility] facility with complaints of hypoxemia and shortness of breath. He apparently had an episode of vomiting and was felt to have aspirated. On evaluation in the emergency room, the patient was hypotensive and respiratory distress. He was maintained on the ventilator. He was suctioned. Laboratories were significant for a white count of 54,000. He had a sodium 131, potassium 6.8, BUN of 172, and creatinine of 4. The patient has been pancultured, started on broad spectrum IV antibiotics. A triple-lumen has been placed for pressors. He is now admitted for further evaluation and care. The patient is unable to provide any history as he is nonverbal. PAST MEDICAL HISTORY: As above. PAST SURGICAL HISTORY: Includes a trach and a G-tube. CURRENT MEDICATIONS: Reconciled and reviewed. ALLERGIES: None. FAMILY HISTORY: None. SOCIAL HISTORY: There is no known history of tobacco, ethanol, or drugs. REVIEW OF SYSTEMS: From the patient is unobtainable as he is nonverbal at baseline. PHYSICAL EXAMINATION: VITAL SIGNS: Temperature 97.7, pulse , blood pressure 89/64, respirations 40. GENERAL: The patient is a chronically ill-appearing, contracted male. He is poorly responsive. HEENT: Head is normocephalic and atraumatic. Oropharynx is clear. Mucous membranes were dry. NECK: Supple. Trach site was midline and clean. HEART: Tachycardic. LUNGS: Significant for scattered rhonchi. ABDOMEN: Soft, nontender, nondistended. EXTREMITIES: No clubbing or cyanosis. The patient has multiple contractures, multiple wounds. LABORATORY DATA: Sodium is 131, potassium 6.8, chloride 101, bicarb 14, BUN 172, creatinine 4.3. Lactic acid was 3.1. White count was 54,000, hemoglobin 9.3. Chest x-ray showed bilateral infiltrates. ASSESSMENT: This is an 79-year-old male with a history of chronic encephalopathy, stroke, seizure disorder, hypertension, diabetes, and chronic respiratory failure, admitted with complaints of septic shock secondary to aspiration pneumonia and acute on chronic renal failure. PLAN: 1. Broad spectrum IV antibiotics. 2. Continue ventilatory support. 3. IV hydration with bicarb. 4. Check renal ultrasound. 5. Cardiology, Renal, Infectious Disease, Pulmonary consultations will be obtained. 6. The patient's status is critical and guarded. Jimi Tellez M.D. DR: MYRIAM JOB#: [id number] CC:
[2020-03-05] MEDS ORDERED: Pantoprazole Inj IVP SCH (11:45)
--- NOTE | 2020-03-05 11:47 | Pulmonolgy Critical Care Note ---
Critical Care - Asmt/Plan Assessment/Plan: Pulmonary CCM Consultation HPI Patient is a 79-year-old male with a history of respiratory failure with tracheostomy and feeding tube. He has a history of epilepsy, kidney disease quadriplegia. He presents with chief complaint of nausea and vomiting with coffee-ground emesis, respiratory distress. No reported fever. No diarrhea. Patient is coming from a long term. History is from the long term and EMS. Patient unable to give any history. Placed on Mechanical ventilation in the ED, ACVC: RR22 450 40% P8 Central line placed in ED Covid negative in the ED Allergies: No Known Allergies Past Medical History: Vent, Trach, Prev Pseudomonal Pneumonia, Paroxysmal Atrial Fibrillation, Diabetes, CRI, Anemia, Prev CVA,Prev CPA, Seizure history, chronically AMS, hypothyroidism, GERD, dysphagia Past Surgical History: Tracheostomy Family History: NA Social History: NA All Other Systems: limited - Patient is nonverbal Physical Exam Vital Signs Noted Date Time Temp Pulse Resp B/P (MAP) Pulse Ox O2 Delivery O2 Flow Rate FiO2 03/05/20 05:30 100 24 99/60 (73) 98 Trach Collar General Appearance: sedated on the ventilator, Chronically Ill Head: normocephalic, atraumatic Eyes: bilateral eye PERRL, bilateral eye EOMI ENT: no masses, dry mucus membranes Neck: full range of motion, supple, tracheotomy Respiratory: chest non-tender, respiratory distress, bilateral rhonchi Cardiovascular : regular rate, rhythm, HS1, HS2 normal,no murmur, tachycardia Gastrointestinal: normal bowel sounds, non tender, no mass, no organomegaly, no bruit, non-distended, other - G-tube, femoralline Musculoskeletal: mild wasting Neurologic: no seizures Impression: Upper GI bleed H/o GERD, previous G tube Chronic Tracheostomy, Respiratory failure with elevatedCO2 Aspiration pneumonia Sepsis Renal insufficiency, hyperkalemia, metabolic acidosis Previous Pseudomonal Pneumonia H/o Paroxysmal Atrial Fibrillation Diabetes CRI Anemia Prev CVA Prev CPA with chronically AMS Seizure history Hypothyroidism Plan ACVC Recheck ABG Adjust FIO2, P 5 Pressors PRN IVF IV Bicarbonate gtt ISS Type and Cross IV Protonix PPX gtt EKG: Tachycardic 132 bpm. Sinus rhythm. Rightward axis. No ectopy. Right bundle branch block pattern. T wave inversions in V1, V2, V3. Possible peaked T waves in V5 and V6 CXR: Tracheostomy, bilayteral basal infiltartes Laboratory Tests Noted Test 03/05/20 05:37 03/05/20 06:00 03/05/20 07:32 03/05/20 08:07 Lactic Acid Level 3.10 mmol/L (0.4-2.0) H 2.30 mmol/L (0.4-2.0) H White Blood Count 54.2 K/UL (4.8-10.8) *H Red Blood Count 2.78 M/UL (4.70-6.10) L Hemoglobin 9.3 G/DL (14.2-18.0) L Hematocrit 28.7 % (42.0-52.0) L Mean Corpuscular Volume 103 FL (80-99) H Mean Corpuscular Hemoglobin 33.4 PG (27.0-31.0) H Mean Corpuscular Hemoglobin Concent 32.4 G/DL (32.0-36.0) Red Cell Distribution Width 13.8 % (11.6-14.8) Platelet Count 537 K/UL (150-450) H Mean Platelet Volume 5.7 FL (6.5-10.1) L Neutrophils (%) (Auto) % (45.0-75.0) Lymphocytes (%) (Auto) % (20.0-45.0) Monocytes (%) (Auto) % (1.0-10.0) Eosinophils (%) (Auto) % (0.0-3.0) Basophils (%) (Auto) % (0.0-2.0) Differential Total Cells Counted 100 Neutrophils % (Manual) 79 % (45-75) H Lymphocytes % (Manual) 1 % (20-45) L Monocytes % (Manual) 5 % (1-10) Eosinophils % (Manual) 0 % (0-3) Basophils % (Manual) 0 % (0-2) Band Neutrophils 15 % (0-8) H Platelet Estimate Increased H Platelet Morphology Normal Macrocytosis 1+ Sodium Level 131 MMOL/L (136-145) L Potassium Level 6.8 MMOL/L (3.5-5.1) *H Pending Chloride Level 101 MMOL/L (98-107) Carbon Dioxide Level 14 MMOL/L (21-32) L Anion Gap 16 mmol/L (5-15) H Blood Urea Nitrogen 172 mg/dL (7-18) H Creatinine 4.3 MG/DL (0.55-1.30) H Estimated Glomerular Filtration Rate 13.5 mL/min (>60) Glucose Level 122 MG/DL (74-106) H Calcium Level 11.7 MG/DL (8.5-10.1) H Total Bilirubin 0.3 MG/DL (0.2-1.0) Aspartate Amino Transferase (AST) 23 U/L (15-37) Alanine Aminotransferase (ALT) 51 U/L (12-78) Alkaline Phosphatase 145 U/L (46-116) H Total Creatine Kinase 19 U/L (26-308) L Creatine Kinase MB 1.8 NG/ML (0.0-3.6) Creatine Kinase MB Relative Index 9.4 Troponin I 0.000 ng/mL (0.000-0.056) Total Protein 9.0 G/DL (6.4-8.2) H Albumin 1.9 G/DL (3.4-5.0) L Globulin 7.1 g/dL Albumin/Globulin Ratio 0.3 (1.0-2.7) L Microbiology Date/Time Source Procedure Growth Result 03/05/20 06:00 Nasopharynx SARS-CoV-2 RdRp Gene Assay - Final Negative Total critical care time 75 minutes, 43 minutes care co-ordination Critical Care - Objective Last 24 Hour Vital Signs Date Time Temp Pulse Resp B/P (MAP) Pulse Ox O2 Delivery O2 Flow Rate FiO2 03/05/20 09:20 98.1 100 34 112/76 95 Mechanical Ventilator 03/05/20 09:00 97.7 85 38 112/58 99 Trach Collar 40 03/05/20 08:11 110/57 03/05/20 07:39 122/76 03/05/20 07:34 101/56 03/05/20 07:29 96/52 03/05/20 07:26 99/80 03/05/20 07:24 89/64 03/05/20 07:19 89/64 03/05/20 07:10 116 40 40 03/05/20 07:05 86/94 03/05/20 07:00 97.7 03/05/20 05:42 146 40 Trach Collar 03/05/20 05:42 146 40 99/60 98 Trach Collar 03/05/20 05:30 100 24 99/60 (73) 98 Trach Collar 03/05/20 05:30 106 41 40 Micro: Microbiology Date/Time Source Procedure Growth Status 03/05/20 06:00 Nasopharynx SARS-CoV-2 RdRp Gene Assay - Final Complete 03/05/20 09:39 Rectum Received Accucheck: 108 Critical Care - Subjective ROS Limited/Unobtainable: Yes Condition: critical FI02: 40 Vent Support Breath Rate: 22 Vent Support Mode: AC Vent Tidal Volume: 450 Sputum Amount: Small PEEP: 8.0 PIP: 30 Franko Flynn MD Mar 05, 2020 11:47
[2020-03-05 12:13] LABS: HEMATOCRIT 26.2 % (42.0-52.0); HEMOGLOBIN 8.2 G/DL (14.2-18.0); MEAN CORPUSCULAR VOLUME 105 FL (80-99); PLATELET COUNT 303 K/UL (150-450); RED BLOOD COUNT 2.49 M/UL (4.70-6.10); RED CELL DISTRIBUTION WIDTH 13.9 % (11.6-14.8)
[2020-03-05 12:14] LABS: WHITE BLOOD COUNT 33.9 K/UL (4.8-10.8)
[2020-03-05 12:23] LABS: INR 1.3 (0.9-1.1)
[2020-03-05] MEDS: Pantoprazole 80 MG in NS 250 ML IV SCH ×2 (12:38→23:04)
[2020-03-05] MEDS: Albuterol/Ipratropium 3ml neb HHN SCH ×2 (13:25→19:53)
--- NOTE | 2020-03-05 13:44 | Consultation ---
DATE OF CONSULTATION: 03/05/2020 INFECTIOUS DISEASES CONSULTATION This consult is for coverage of Dr. Hair. CONSULTING PHYSICIAN: Janes Dumas MD. PRIMARY ATTENDING PHYSICIAN: Jimi Tellez MD. REASON FOR CONSULTATION: Sepsis, septic shock, pneumonia, and likely UTI. HISTORY OF PRESENT ILLNESS: This is a 79-year-old male who is a shelter resident admitted today for nausea, vomiting, coffee-ground vomiting. The patient was found to tachycardia with heart rate of 132. The patient has hypotension, blood pressure as low as 89/64. He has significant leukocytosis with WBC of 54.2. After admission, transferred to ICU, was on norepinephrine, just that was stopped. PAST MEDICAL HISTORY: The patient had two admissions to [facility] recently in September and October 2019. He has chronic kidney disease, chronic respiratory failure, hypothyroidism, diabetes mellitus, atrial fibrillation, gastroesophageal reflux disease, protein-calorie malnutrition, functional quadriplegia, pressure ulcers. ALLERGIES: No known drug allergy. MEDICATIONS: Zosyn, sodium bicarb, vitamin C, Keppra, levothyroxine, vancomycin, norepinephrine. SOCIAL HISTORY: Single, shelter resident. No other history obtainable by the patient. The patient does not make urine at the present time. PHYSICAL EXAMINATION: VITAL SIGNS: Temperature 98.1, pulse 100, respirations 34, blood pressure 112/76. No fever since admission. HEAD AND NECK: Dry mouth. Has tracheostomy. HEART: Tachycardic. LUNGS: Decreased sounds on ventilator, breathing fast. ABDOMEN: Soft. G-tube in place. GENITOURINARY: Has [place] catheter. EXTREMITIES: No edema, has contracture. SKIN: Multiple pressure ulcer. NEUROLOGIC: Opens eyes, noncommunicative. LABORATORY AND DIAGNOSTIC DATA: Sodium 131, potassium 6.8 at the time of admission that came to 5.4, BUN is 172, creatinine 4.3, glucose is 122. First lactic acid was 3.1 come down to 2.3. Calcium is 11.7. Albumin is 1.9. WBC 54.2, hemoglobin 9.3, hematocrit 28.7, and platelets is 537. Chest x-ray showed bilateral opacities that are increased, infection, or atelectasis. Mild gaseous distention of stomach and colon, bowel obstruction cannot be excluded. IMPRESSION: Sepsis with septic shock, has bilateral pneumonia. The patient has a previous history of infection with multidrug resistant organisms including Acinetobacter pneumonia in the previous admission, has acute renal failure, chronic kidney disease, leukemoid reaction, hyperkalemia, hypercalcemia, ventilator-dependent respiratory failure, anemia, protein-calorie malnutrition, diabetes mellitus, atrial fibrillation. RECOMMENDATION: Continue vancomycin and Zosyn. We will follow up the cultures. We will order sputum culture. At the end of my exam, I thank Dr. Tellez for involving me in the care of this patient. Janes Dumas M.D. DR: Sal JOB#: [id number] CC: KENDALL
--- NOTE | 2020-03-05 16:17 | Diagnostic Imaging Report ---
EXAM: Ultrasound of the kidneys. CLINICAL HISTORY: RENAL-C TECHNIQUE: Real-time ultrasound of the kidneys. COMPARISON: No relevant prior studies available. FINDINGS: The kidneys demonstrate increased bilateral cortical echogenicity. No hydronephrosis. The kidneys are normal in size. Several echogenic non-shadowing foci are identified, possibly representing calcifications. Left renal cysts without worrisome features, the largest measuring 3.4 cm. Thickened urinary bladder wall up to 7 mm, nonspecific. Trace perinephric free fluid. The right kidney measures 9.4 cm in the left kidney measures 9.2 cm. IMPRESSION: 1. Echogenic kidney suggesting renal parenchymal disease. No hydronephrosis. 2. Left renal cysts. 3. Small bilateral echogenic foci without shadowing, possibly representing renal stones. 4. Trace perinephric free fluid. 5. Urinary bladder wall, nonspecific, but correlate for cystitis.
[2020-03-05 18:45] LABS: HEMATOCRIT 21.2 % (42.0-52.0); MEAN CORPUSCULAR VOLUME 107 FL (80-99); PLATELET COUNT 233 K/UL (150-450); RED BLOOD COUNT 1.99 M/UL (4.70-6.10); RED CELL DISTRIBUTION WIDTH 14.3 % (11.6-14.8)
[2020-03-05 18:51] LABS: WHITE BLOOD COUNT 22.4 K/UL (4.8-10.8)
[2020-03-05 18:54] LABS: HEMOGLOBIN 6.7 G/DL (14.2-18.0)
[2020-03-05] MEDS ORDERED: Sodium Polystyrene Sulfonate Enema RECTAL SCH (20:00)
[2020-03-05] MEDS: Dyna-Hex 2% Top Sol 2oz TOPIC SCH (21:35)
[2020-03-05] MEDS: levETIRAcetam 750 MG in NS 110 ML IV SCH (22:57)
[2020-03-06] VITALS (109 sets, daily range): BP systolic 54–227; BP diastolic 17–196
[2020-03-06] MEDS: Albuterol/Ipratropium 3ml neb HHN SCH ×5 (01:45→19:22)
[2020-03-06] MEDS: Piperacillin/Tazobactam 2.25 GM in NS 55 ML IVPB SCH ×2 (02:13→10:20)
[2020-03-06] MEDS: Sodium Bicarbonate 50 ML in D5 1/2NS 1,000 ML IV SCH ×3 (02:29→19:21)
[2020-03-06 08:05] LABS: HEMATOCRIT 23.2 % (42.0-52.0); HEMOGLOBIN 7.6 G/DL (14.2-18.0); MEAN CORPUSCULAR VOLUME 97 FL (80-99); PLATELET COUNT 349 K/UL (150-450); RED CELL DISTRIBUTION WIDTH 14.2 % (11.6-14.8)
[2020-03-06 08:11] LABS: WHITE BLOOD COUNT 40.2 K/UL (4.8-10.8)
[2020-03-06 08:33] LABS: INR 1.3 (0.9-1.1)
[2020-03-06] MEDS: Pantoprazole 80 MG in NS 250 ML IV SCH ×3 (08:36→23:04)
[2020-03-06] MEDS: Octreotide Acetate 500 MCG in Sodium Chloride 499 ML IV SCH ×2 (08:36→17:26)
[2020-03-06] MEDS: Norepinephrine Bitartrate 16 MG in Sodium Chloride 484 ML IV SCH ×2 (08:37→19:22)
--- NOTE | 2020-03-06 08:49 | General Progress Note ---
Assessment/Plan Problem List: (1) GIB (gastrointestinal bleeding) ICD Codes: K92.2 - Gastrointestinal hemorrhage, unspecified SNOMED: 44881512 (2) Sepsis ICD Codes: A41.9 - Sepsis, unspecified organism SNOMED: 84301767 Qualifiers: Qualified Codes: A41.9 - Sepsis, unspecified organism; R65.20 - Severe sepsis without septic shock; N17.9 - Acute kidney failure, unspecified (3) Respiratory failure ICD Codes: J96.90 - Respiratory failure, unspecified, unspecified whether with hypoxia or hypercapnia SNOMED: 935676603 Qualifiers: Qualified Codes: J96.01 - Acute respiratory failure with hypoxia (4) Aspiration pneumonia ICD Codes: J69.0 - Pneumonitis due to inhalation of food and vomit SNOMED: 107322253 Qualifiers: Qualified Codes: O74.0 - Aspiration pneumonitis due to anesthesia during labor and delivery (5) HCAP (healthcare-associated pneumonia) ICD Codes: J18.9 - Pneumonia, unspecified organism SNOMED: 904663911, 370899948 (6) ARF (acute renal failure) ICD Codes: N17.9 - Acute kidney failure, unspecified SNOMED: 60896086, 906664957 Qualifiers: Qualified Codes: N17.9 - Acute kidney failure, unspecified Status: deteriorating Assessment/Plan: transfuse prbc octreotide and protonix drip serial cbc pressors ivf iv abx vent support resp rx hold feeds critical grim prognosis Subjective ROS Limited/Unobtainable: Yes Constitutional: Reports: malaise, weakness HEENT: Reports: no symptoms Cardiovascular: Reports: no symptoms Respiratory: Reports: shortness of breath, sputum Gastrointestinal/Abdominal: Reports: blood in stool Genitourinary: Reports: no symptoms Neurologic/Psychiatric: Reports: pre-existing deficit, seizure Endocrine: Reports: no symptoms Hematologic/Lymphatic: Reports: anemia Allergies: Coded Allergies: No Known Allergies (Unverified , 02/23/12) All Systems: reviewed and negative except above Subjective doing poorly. hypotensive on levophed. +blood from GT. on ivf with bicarb. tachypneic. poor uop. Objective Last 24 Hour Vital Signs Date Time Temp Pulse Resp B/P (MAP) Pulse Ox O2 Delivery O2 Flow Rate FiO2 03/06/20 08:37 82/51 03/06/20 08:16 123 03/06/20 08:15 85/52 03/06/20 08:15 120 35 85/52 (63) 100 03/06/20 08:00 40 03/06/20 08:00 115 36 93/57 (69) 100 03/06/20 08:00 93/57 03/06/20 08:00 Mechanical Ventilator 03/06/20 07:48 120 39 92/63 (73) 100 03/06/20 07:45 115 37 87/65 (72) 100 03/06/20 07:35 108 27 93/56 (68) 99 03/06/20 07:30 107 28 89/60 (70) 100 03/06/20 07:15 104 24 101/59 (73) 100 03/06/20 07:00 98/68 03/06/20 07:00 103 29 98/68 (78) 100 03/06/20 06:45 106 36 91/62 (72) 100 03/06/20 06:30 112 32 94/59 (71) 100 03/06/20 06:15 103 31 91/63 (72) 100 03/06/20 06:00 106 34 100/61 (74) 100 03/06/20 06:00 100/61 03/06/20 05:53 83/60 03/06/20 05:52 99 25 83/60 (68) 100 03/06/20 05:45 100 26 90/63 (72) 100 03/06/20 05:31 100 36 40 03/06/20 05:30 102 29 90/60 (70) 100 03/06/20 05:15 105 28 97/65 (76) 100 03/06/20 05:00 117 32 91/64 (73) 100 03/06/20 05:00 91/64 03/06/20 04:45 126 38 110/89 (96) 100 03/06/20 04:30 116 41 99/63 (75) 100 03/06/20 04:15 100 31 90/65 (73) 100 03/06/20 04:00 97.6 107 29 77/51 (60) 100 03/06/20 04:00 77/51 03/06/20 04:00 111 03/06/20 04:00 40 03/06/20 04:00 Mechanical Ventilator 03/06/20 03:45 111 31 101/76 (84) 100 03/06/20 03:40 113 38 40 03/06/20 03:30 111 30 92/63 (73) 100 03/06/20 03:15 110 28 94/58 (70) 100 03/06/20 03:00 104/70 03/06/20 03:00 110 33 104/70 (81) 100 03/06/20 02:45 111 31 97/66 (76) 100 03/06/20 02:43 98/61 03/06/20 02:30 106 26 98/61 (73) 100 03/06/20 02:15 105 26 90/64 (73) 100 03/06/20 02:00 98.3 97 27 86/64 (71) 100 03/06/20 02:00 90/64 03/06/20 01:45 105 25 97/67 (77) 98 03/06/20 01:45 108 38 100 Mechanical Ventilator 40 104 33 40 03/06/20 01:30 107 27 92/66 (75) 100 03/06/20 01:15 104 21 90/54 (66) 99 03/06/20 01:00 95/61 03/06/20 01:00 106 24 95/61 (72) 97 03/06/20 00:45 104 27 93/63 (73) 98 03/06/20 00:30 104 27 88/58 (68) 98 03/06/20 00:30 88/58 03/06/20 00:15 104 28 87/68 (74) 98 03/06/20 00:15 87/68 03/06/20 00:00 103 03/06/20 00:00 90/63 03/06/20 00:00 98.2 106 28 90/63 (72) 98 03/06/20 00:00 40 03/06/20 00:00 Mechanical Ventilator 03/05/20 23:46 102 38 40 03/05/20 23:45 102 31 79/59 (66) 98 03/05/20 23:45 89/53 03/05/20 23:30 83/53 03/05/20 23:30 104 26 83/53 (63) 99 03/05/20 23:15 85/53 03/05/20 23:15 107 36 85/53 (64) 98 9/6/20 23:00 105 36 83/60 (68) 100 03/05/20 23:00 83/60 03/05/20 22:45 112 34 89/53 (65) 96 03/05/20 22:45 89/53 03/05/20 22:30 97 32 81/55 (64) 95 20 22:30 81/55 03/05/20 22:15 84/61 03/05/20 22:15 100 29 84/61 (69) 99 03/05/20 22:00 105/64 03/05/20 22:00 105 29 105/64 (78) 99 03/05/20 21:49 100 36 40 03/05/20 21:45 101 23 97/63 (74) 97 03/05/20 21:30 101 27 97/63 (74) 99 03/05/20 21:15 101 28 97/65 (76) 97 03/05/20 21:00 99 29 106/64 (78) 98 03/05/20 21:00 106/64 03/05/20 20:45 99 31 98/63 (75) 98 03/05/20 20:33 87/62 03/05/20 20:30 99 30 87/62 (70) 100 03/05/20 20:00 97.4 98 28 90/59 (69) 100 03/05/20 20:00 99 03/05/20 20:00 Mechanical Ventilator 03/05/20 20:00 40 03/05/20 19:48 101 36 100 Mechanical Ventilator 40 99 34 40 03/05/20 19:46 96 25 86/59 (68) 100 03/05/20 19:30 98 25 94/58 (70) 100 03/05/20 19:00 99 28 104/60 (75) 100 03/05/20 18:30 113 26 96/59 (71) 100 03/05/20 18:00 119 31 119/65 (83) 100 03/05/20 17:30 115 30 98/56 (70) 100 03/05/20 17:10 106 36 40 03/05/20 17:00 108 29 114/69 (84) 100 03/05/20 16:30 108 29 104/60 (75) 99 9/6/20 16:08 113 03/05/20 16:00 Mechanical Ventilator 03/05/20 16:00 98.3 104 31 113/65 (81) 100 03/05/20 15:30 102 38 103/63 (76) 100 03/05/20 15:20 103 36 50 03/05/20 15:00 103 29 104/63 (77) 100 03/05/20 14:30 100 27 105/62 (76) 100 03/05/20 14:00 95 26 98/63 (75) 100 03/05/20 13:30 97 32 98/68 (78) 100 03/05/20 13:29 98 30 100 Mechanical Ventilator 50 91 34 50 03/05/20 13:00 100 30 111/71 (84) 100 03/05/20 12:30 92 30 86/62 (70) 100 03/05/20 12:24 95 30 100 Mechanical Ventilator 50 03/05/20 12:06 94 03/05/20 12:00 97.8 92 29 89/61 (70) 100 03/05/20 12:00 Mechanical Ventilator 03/05/20 11:43 40 03/05/20 11:43 Mechanical Ventilator 03/05/20 11:30 94 35 88/62 (71) 100 03/05/20 11:29 92 34 50 03/05/20 11:00 99 36 100/66 (77) 100 03/05/20 10:30 106 36 91/60 (70) 100 03/05/20 10:15 106 36 112/69 (83) 100 03/05/20 10:00 115 38 104/43 (63) 100 03/05/20 09:50 133/77 03/05/20 09:50 109 33 131/77 (95) 96 03/05/20 09:45 109 34 104/64 (77) 96 03/05/20 09:37 105 03/05/20 09:30 98.8 92 29 150/122 (131) 100 03/05/20 09:30 150/122 03/05/20 09:20 98.1 100 34 112/76 95 Mechanical Ventilator 03/05/20 09:00 97.7 85 38 112/58 99 Trach Collar 40 Intake and Output 03/05/20 03/06/20 19:00 07:00 Intake Total 1094.99 ml 2885.500 ml Output Total 585 ml 1300 ml Balance 509.99 ml 1585.500 ml Intake Oral 0 ml Free Water 100 ml IV Total 994.99 ml 2385.500 ml Blood Product 500 ml Output Urine Total 185 ml 200 ml Stool Total 100 ml Gastric Drainage Total 400 ml 1000 ml # Bowel Movements 1 1 Laboratory Tests 03/05/20 09:55: Lactic Acid Level 2.10 03/05/20 10:00: Stool Occult Blood [Pending] 03/05/20 12:00: White Blood Count 33.9*H, Red Blood Count 2.49L, Hemoglobin 8.2L, Hematocrit 26.2L, Mean Corpuscular Volume 105H, Mean Corpuscular Hemoglobin 33.2H, Mean Corpuscular Hemoglobin Concent 31.5L, Red Cell Distribution Width 13.9, Platelet Count 303, Mean Platelet Volume 5.6L, Neutrophils (%) (Auto) , Lymphocytes (%) (Auto) , Monocytes (%) (Auto) , Eosinophils (%) (Auto) , Basophils (%) (Auto) , Differential Total Cells Counted 100, Neutrophils % ( Manual) 82H, Lymphocytes % (Manual) 3L, Monocytes % (Manual) 3, Eosinophils % ( Manual) 0, Basophils % (Manual) 0, Band Neutrophils 12H, Platelet Estimate Adequate, Platelet Morphology Normal, Hypochromasia 1+, Macrocytosis 1+, Prothrombin Time 13.8H, Prothromb Time International Ratio 1.3H, Activated Partial Thromboplast Time 25 03/05/20 12:52: Arterial Blood pH 7.237*L, Arterial Blood Partial Pressure CO2 29.4L, Arterial Blood Partial Pressure O2 115.7H, Arterial Blood HCO3 12.2*L, Arterial Blood Oxygen Saturation 97.5, Arterial Blood Base Excess -13.9*L, [place] Test Positive 03/05/20 16:21: Arterial Blood pH 7.241*L, Arterial Blood Partial Pressure CO2 30.8L, Arterial Blood Partial Pressure O2 177.8H, Arterial Blood HCO3 12.9*L, Arterial Blood Oxygen Saturation 99.2, Arterial Blood Base Excess -13.2*L, [place] Test Positive 03/05/20 18:35: White Blood Count 22.4*H, Red Blood Count 1.99L, Hemoglobin 6.7*L, Hematocrit 21.2L, Mean Corpuscular Volume 107H, Mean Corpuscular Hemoglobin 33.9H, Mean Corpuscular Hemoglobin Concent 31.8L, Red Cell Distribution Width 14.3, Platelet Count 233, Mean Platelet Volume 5.9L, Neutrophils (%) (Auto) , Lymphocytes (%) (Auto) , Monocytes (%) (Auto) , Eosinophils (%) (Auto) , Basophils (%) (Auto) , Differential Total Cells Counted 100, Neutrophils % ( Manual) 89H, Lymphocytes % (Manual) 5L, Monocytes % (Manual) 4, Eosinophils % ( Manual) 2, Basophils % (Manual) 0, Band Neutrophils 0, Platelet Estimate Adequate, Platelet Morphology Normal, Hypochromasia 3+, Anisocytosis 3+, Microcytosis 1+, Macrocytosis Occasional 03/06/20 07:46: White Blood Count 40.2#*H, Red Blood Count 2.40L, Hemoglobin 7.6L, Hematocrit 23.2L, Mean Corpuscular Volume 97#, Mean Corpuscular Hemoglobin 31.8H, Mean Corpuscular Hemoglobin Concent 33.0, Red Cell Distribution Width 14.2, Platelet Count 349, Mean Platelet Volume 5.2L, Neutrophils (%) (Auto) , Lymphocytes (%) ( Auto) , Monocytes (%) (Auto) , Eosinophils (%) (Auto) , Basophils (%) (Auto) , Neutrophils % (Manual) [Pending], Lymphocytes % (Manual) [Pending], Platelet Estimate [Pending], Platelet Morphology [Pending], Prothrombin Time 14.0H, Prothromb Time International Ratio 1.3H, Activated Partial Thromboplast Time 36H , Sodium Level [Pending], Potassium Level [Pending], Chloride Level [Pending], Carbon Dioxide Level [Pending], Blood Urea Nitrogen [Pending], Creatinine [ Pending], Estimat Glomerular Filtration Rate [Pending], Glucose Level [Pending] , Calcium Level [Pending], Total Bilirubin [Pending], Aspartate Amino Transf ( AST/SGOT) [Pending], Alanine Aminotransferase (ALT/SGPT) [Pending], Alkaline Phosphatase [Pending], Total Protein [Pending], Albumin [Pending], Globulin [ Pending], Random Vancomycin Level [Pending] Height (Feet): 5 Height (Inches): 7.00 Weight (Pounds): 160 General Appearance: WD/WN, mild distress, cachetic EENT: PERRL/EOMI Neck: non-tender, normal alignment Cardiovascular: normal rate, tachycardia Respiratory/Chest: chest wall non-tender, lungs clear, normal breath sounds, no respiratory distress, no accessory muscle use Abdomen: normal bowel sounds, non tender, soft, no organomegaly Edema: no edema noted Arm (L), no edema noted Arm (R) Neurologic: unresponsive, aphasia Jimi Tellez MD Mar 06, 2020 08:49
[2020-03-06] MEDS: Ascorbic Acid 500mg tab GT SCH (09:00)
[2020-03-06] MEDS: Levothyroxine 25mcg tab GT SCH (09:00)
[2020-03-06] MEDS: Docusate 100mg/10ml Liq GT SCH ×3 (09:00→18:00)
[2020-03-06] MEDS: Levothyroxine 125mcg tab GT SCH (09:00)
[2020-03-06 09:35] LABS: ALANINE AMINOTRANSFERASE 33 U/L (12-78); ALBUMIN 1.5 G/DL (3.4-5.0); ALBUMIN/GLOBULIN RATIO 0.3 (1.0-2.7); ALKALINE PHOSPHATASE 96 U/L (46-116); ASPARTATE AMINO TRANSFERASE 22 U/L (15-37); BILIRUBIN,TOTAL 0.4 MG/DL (0.2-1.0); CHLORIDE 100 MMOL/L (98-107); CREATININE 4.1 MG/DL (0.55-1.30); POTASSIUM 4.8 MMOL/L (3.5-5.1); SODIUM 122 MMOL/L (136-145)
[2020-03-06] MEDS: Phenylephrine 100 MG in D5W 240 ML IV SCH ×2 (10:14→21:05)
--- NOTE | 2020-03-06 10:34 | Infectious Diseases Prog Note ---
Assessment/Plan Assessment/Plan antibiotics : vancomycin iv, zosyn A 1. pneumonia 2. UTI 3. renal failure 4. shock 5. GI bleeding 6. diabetes mellitus P 1. continue iv vancomycin, zosyn 2. will follow up cultures Subjective ROS Limited/Unobtainable: Yes Allergies: Coded Allergies: No Known Allergies (Unverified , 02/23/12) Objective Last 24 Hour Vital Signs Date Time Temp Pulse Resp B/P (MAP) Pulse Ox O2 Delivery O2 Flow Rate FiO2 03/06/20 10:14 101 54/36 03/06/20 08:37 82/51 03/06/20 08:30 126 36 82/51 (61) 100 03/06/20 08:16 123 03/06/20 08:15 85/52 03/06/20 08:15 120 35 85/52 (63) 100 03/06/20 08:00 40 03/06/20 08:00 115 36 93/57 (69) 100 03/06/20 08:00 93/57 03/06/20 08:00 Mechanical Ventilator 03/06/20 07:48 120 39 92/63 (73) 100 03/06/20 07:45 115 37 87/65 (72) 100 03/06/20 07:35 108 27 93/56 (68) 99 03/06/20 07:30 107 28 89/60 (70) 100 03/06/20 07:15 104 24 101/59 (73) 100 03/06/20 07:00 98/68 03/06/20 07:00 103 29 98/68 (78) 100 03/06/20 06:45 106 36 91/62 (72) 100 03/06/20 06:30 112 32 94/59 (71) 100 03/06/20 06:15 103 31 91/63 (72) 100 03/06/20 06:00 106 34 100/61 (74) 100 03/06/20 06:00 100/61 03/06/20 05:53 83/60 03/06/20 05:52 99 25 83/60 (68) 100 03/06/20 05:45 100 26 90/63 (72) 100 03/06/20 05:31 100 36 40 03/06/20 05:30 102 29 90/60 (70) 100 9/7/20 05:15 105 28 97/65 (76) 100 03/06/20 05:00 117 32 91/64 (73) 100 03/06/20 05:00 91/64 03/06/20 04:45 126 38 110/89 (96) 100 03/06/20 04:30 116 41 99/63 (75) 100 03/06/20 04:15 100 31 90/65 (73) 100 03/06/20 04:00 97.6 107 29 77/51 (60) 100 03/06/20 04:00 77/51 03/06/20 04:00 111 03/06/20 04:00 40 03/06/20 04:00 Mechanical Ventilator 03/06/20 03:45 111 31 101/76 (84) 100 03/06/20 03:40 113 38 40 03/06/20 03:30 111 30 92/63 (73) 100 03/06/20 03:15 110 28 94/58 (70) 100 03/06/20 03:00 104/70 03/06/20 03:00 110 33 104/70 (81) 100 03/06/20 02:45 111 31 97/66 (76) 100 03/06/20 02:43 98/61 03/06/20 02:30 106 26 98/61 (73) 100 03/06/20 02:15 105 26 90/64 (73) 100 03/06/20 02:00 98.3 97 27 86/64 (71) 100 03/06/20 02:00 90/64 03/06/20 01:45 105 25 97/67 (77) 98 03/06/20 01:45 108 38 100 Mechanical Ventilator 40 104 33 40 03/06/20 01:30 107 27 92/66 (75) 100 03/06/20 01:15 104 21 90/54 (66) 99 03/06/20 01:00 95/61 03/06/20 01:00 106 24 95/61 (72) 97 03/06/20 00:45 104 27 93/63 (73) 98 03/06/20 00:30 104 27 88/58 (68) 98 03/06/20 00:30 88/58 03/06/20 00:15 104 28 87/68 (74) 98 03/06/20 00:15 87/68 03/06/20 00:00 103 03/06/20 00:00 90/63 03/06/20 00:00 98.2 106 28 90/63 (72) 98 03/06/20 00:00 40 03/06/20 00:00 Mechanical Ventilator 03/05/20 23:46 102 38 40 03/05/20 23:45 102 31 79/59 (66) 98 03/05/20 23:45 89/53 03/05/20 23:30 83/53 03/05/20 23:30 104 26 83/53 (63) 99 03/05/20 23:15 85/53 03/05/20 23:15 107 36 85/53 (64) 98 03/05/20 23:00 105 36 83/60 (68) 100 03/05/20 23:00 83/60 03/05/20 22:45 112 34 89/53 (65) 96 03/05/20 22:45 89/53 03/05/20 22:30 97 32 81/55 (64) 95 03/05/20 22:30 81/55 03/05/20 22:15 84/61 03/05/20 22:15 100 29 84/61 (69) 99 03/05/20 22:00 105/64 03/05/20 22:00 105 29 105/64 (78) 99 03/05/20 21:49 100 36 40 03/05/20 21:45 101 23 97/63 (74) 97 03/05/20 21:30 101 27 97/63 (74) 99 03/05/20 21:15 101 28 97/65 (76) 97 03/05/20 21:00 99 29 106/64 (78) 98 03/05/20 21:00 106/64 03/05/20 20:45 99 31 98/63 (75) 98 03/05/20 20:33 87/62 03/05/20 20:30 99 30 87/62 (70) 100 03/05/20 20:00 97.4 98 28 90/59 (69) 100 03/05/20 20:00 99 03/05/20 20:00 Mechanical Ventilator 03/05/20 20:00 40 03/05/20 19:48 101 36 100 Mechanical Ventilator 40 99 34 40 03/05/20 19:46 96 25 86/59 (68) 100 03/05/20 19:30 98 25 94/58 (70) 100 03/05/20 19:00 99 28 104/60 (75) 100 03/05/20 18:30 113 26 96/59 (71) 100 03/05/20 18:00 119 31 119/65 (83) 100 03/05/20 17:30 115 30 98/56 (70) 100 03/05/20 17:10 106 36 40 03/05/20 17:00 108 29 114/69 (84) 100 03/05/20 16:30 108 29 104/60 (75) 99 03/05/20 16:08 113 03/05/20 16:00 Mechanical Ventilator 03/05/20 16:00 98.3 104 31 113/65 (81) 100 03/05/20 15:30 102 38 103/63 (76) 100 03/05/20 15:20 103 36 50 03/05/20 15:00 103 29 104/63 (77) 100 03/05/20 14:30 100 27 105/62 (76) 100 03/05/20 14:00 95 26 98/63 (75) 100 03/05/20 13:30 97 32 98/68 (78) 100 03/05/20 13:29 98 30 100 Mechanical Ventilator 50 91 34 50 03/05/20 13:00 100 30 111/71 (84) 100 03/05/20 12:30 92 30 86/62 (70) 100 03/05/20 12:24 95 30 100 Mechanical Ventilator 50 03/05/20 12:06 94 03/05/20 12:00 97.8 92 29 89/61 (70) 100 03/05/20 12:00 Mechanical Ventilator 03/05/20 11:43 40 03/05/20 11:43 Mechanical Ventilator 03/05/20 11:30 94 35 88/62 (71) 100 03/05/20 11:29 92 34 50 03/05/20 11:00 99 36 100/66 (77) 100 Height (Feet): 5 Height (Inches): 7.00 Weight (Pounds): 160 Respiratory/Chest: lungs clear Cardiovascular: normal rate, regular rhythm, no gallop/murmur Abdomen: soft, non tender Extremities: no edema Microbiology Date/Time Source Procedure Growth Status 9/6/20 06:00 Nasopharynx SARS-CoV-2 RdRp Gene Assay - Final Complete 03/05/20 09:39 Rectum Received Laboratory Tests Test 03/05/20 12:00 03/05/20 12:52 03/05/20 16:21 03/05/20 18:35 White Blood Count 33.9 K/UL (4.8-10.8) *H 22.4 K/UL (4.8-10.8) *H Red Blood Count 2.49 M/UL (4.70-6.10) L 1.99 M/UL (4.70-6.10) L Hemoglobin 8.2 G/DL (14.2-18.0) L 6.7 G/DL (14.2-18.0) *L Hematocrit 26.2 % (42.0-52.0) L 21.2 % (42.0-52.0) L Mean Corpuscular Volume 105 FL (80-99) H 107 FL (80-99) H Mean Corpuscular Hemoglobin 33.2 PG (27.0-31.0) H 33.9 PG (27.0-31.0) H Mean Corpuscular Hemoglobin Concent 31.5 G/DL (32.0-36.0) L 31.8 G/DL (32.0-36.0) L Red Cell Distribution Width 13.9 % (11.6-14.8) 14.3 % (11.6-14.8) Platelet Count 303 K/UL (150-450) 233 K/UL (150-450) Mean Platelet Volume 5.6 FL (6.5-10.1) L 5.9 FL (6.5-10.1) L Neutrophils (%) (Auto) % (45.0-75.0) % (45.0-75.0) Lymphocytes (%) (Auto) % (20.0-45.0) % (20.0-45.0) Monocytes (%) (Auto) % (1.0-10.0) % (1.0-10.0) Eosinophils (%) (Auto) % (0.0-3.0) % (0.0-3.0) Basophils (%) (Auto) % (0.0-2.0) % (0.0-2.0) Differential Total Cells Counted 100 100 Neutrophils % (Manual) 82 % (45-75) H 89 % (45-75) H Lymphocytes % (Manual) 3 % (20-45) L 5 % (20-45) L Monocytes % (Manual) 3 % (1-10) 4 % (1-10) Eosinophils % (Manual) 0 % (0-3) 2 % (0-3) Basophils % (Manual) 0 % (0-2) 0 % (0-2) Band Neutrophils 12 % (0-8) H 0 % (0-8) Platelet Estimate Adequate Adequate Platelet Morphology Normal Normal Hypochromasia 1+ 3+ Macrocytosis 1+ Occasional Prothrombin Time 13.8 SEC (9.30-11.50) H Prothromb Time International Ratio 1.3 (0.9-1.1) H Activated Partial Thromboplast Time 25 SEC (23-33) Arterial Blood pH 7.237 (7.350-7.450) 7.241 (7.350-7.450) Arterial Blood Partial Pressure CO2 29.4 mmHg (35.0-45.0) L 30.8 mmHg (35.0-45.0) L Arterial Blood Partial Pressure O2 115.7 mmHg (75.0-100.0) H 177.8 mmHg (75.0-100.0) H Arterial Blood HCO3 12.2 mmol/L (22.0-26.0) *L 12.9 mmol/L (22.0-26.0) *L Arterial Blood Oxygen Saturation 97.5 % (95-100) 99.2 % (95-100) Arterial Blood Base Excess -13.9 (-2-2) *L -13.2 (-2-2) *L [place] Test Positive Positive Anisocytosis 3+ Microcytosis 1+ Test 03/06/20 07:46 White Blood Count 40.2 K/UL (4.8-10.8) #*H Red Blood Count 2.40 M/UL (4.70-6.10) L Hemoglobin 7.6 G/DL (14.2-18.0) L Hematocrit 23.2 % (42.0-52.0) L Mean Corpuscular Volume 97 FL (80-99) # Mean Corpuscular Hemoglobin 31.8 PG (27.0-31.0) H Mean Corpuscular Hemoglobin Concent 33.0 G/DL (32.0-36.0) Red Cell Distribution Width 14.2 % (11.6-14.8) Platelet Count 349 K/UL (150-450) Mean Platelet Volume 5.2 FL (6.5-10.1) L Neutrophils (%) (Auto) % (45.0-75.0) Lymphocytes (%) (Auto) % (20.0-45.0) Monocytes (%) (Auto) % (1.0-10.0) Eosinophils (%) (Auto) % (0.0-3.0) Basophils (%) (Auto) % (0.0-2.0) Neutrophils % (Manual) Pending Lymphocytes % (Manual) Pending Platelet Estimate Pending Platelet Morphology Pending Prothrombin Time 14.0 SEC (9.30-11.50) H Prothromb Time International Ratio 1.3 (0.9-1.1) H Activated Partial Thromboplast Time 36 SEC (23-33) H Sodium Level 122 MMOL/L (136-145) L Potassium Level 4.8 MMOL/L (3.5-5.1) Chloride Level 100 MMOL/L (98-107) Carbon Dioxide Level Pending Blood Urea Nitrogen Pending Creatinine 4.1 MG/DL (0.55-1.30) H Estimat Glomerular Filtration Rate 14.2 mL/min (>60) Glucose Level Pending Calcium Level Pending Total Bilirubin 0.4 MG/DL (0.2-1.0) Aspartate Amino Transf (AST/SGOT) 22 U/L (15-37) Alanine Aminotransferase (ALT/SGPT) 33 U/L (12-78) Alkaline Phosphatase 96 U/L (46-116) Total Protein 6.4 G/DL (6.4-8.2) Albumin 1.5 G/DL (3.4-5.0) L Globulin 4.9 g/dL Albumin/Globulin Ratio 0.3 (1.0-2.7) L Random Vancomycin Level 12.5 ug/mL Current Medications Medications (Trade) Dose Ordered Sig/Lanny Route PRN Reason Start Time Stop Time Status Last Admin Dose Admin Acetaminophen (Tylenol) 650 mg Q6H PRN ORAL MILD/TEMP 9/6/20 08:30 04/04/20 08:29 Albuterol/ Ipratropium (Albuterol/ Ipratropium) 3 ml Q6HRT HHN 03/05/20 13:00 03/10/20 12:59 03/06/20 01:45 Ascorbic Acid (Vitamin C) 500 mg DAILY GT 03/05/20 09:00 04/04/20 08:59 03/05/20 10:45 Chlorhexidine Gluconate (Kayla-Hex 2%) 1 applic DAILY@2000 TOPIC 03/05/20 21:00 06/03/20 20:59 03/05/20 21:35 Docusate Sodium (Colace) 100 mg THREE TIMES A DAY GT 03/05/20 09:00 04/04/20 08:59 03/05/20 10:44 Levetiracetam 750 mg/Sodium Chloride 117.5 ml @ 470 mls/hr Q12H IV 03/05/20 23:00 04/04/20 22:59 03/05/20 22:57 Levothyroxine Sodium (Synthroid) 50 mcg DAILY GT 03/05/20 09:00 04/04/20 08:59 03/05/20 10:45 Levothyroxine Sodium (Synthroid) 125 mcg DAILY GT 03/05/20 09:00 04/04/20 08:59 03/05/20 10:45 Norepinephrine Bitartrate 16 mg/ Sodium Chloride 500 ml @ 0 mls/hr Q24H IV 03/06/20 08:30 04/05/20 08:29 03/06/20 08:37 Octreotide Acetate 500 mcg/ Sodium Chloride 500 ml @ 50 mls/hr Q10H IV 03/06/20 08:00 04/05/20 07:59 03/06/20 08:36 Pantoprazole 80 mg/Sodium Chloride 250 ml @ 25 mls/hr Q10H IV 03/05/20 12:30 04/04/20 12:29 03/06/20 08:36 Phenylephrine HCl 100 mg/Dextrose 250 ml @ 0 mls/hr Q24H IV 03/06/20 09:45 04/05/20 09:44 03/06/20 10:14 Piperacillin Sod/ Tazobactam Sod 2.25 gm/Sodium Chloride 55 ml @ 110 mls/hr Q8H IVPB 03/05/20 10:00 03/06/20 14:00 03/06/20 10:20 Piperacillin Sod/ Tazobactam Sod 3.375 gm/Sodium Chloride 110 ml @ 27.5 mls/hr Q12HR@0600,1800 IVPB 03/06/20 18:00 03/13/20 17:59 Sodium Bicarbonate 50 ml/ Dextrose/Sodium Chloride 1,050 ml @ 125 mls/hr Q8H24M IV 03/05/20 09:30 04/04/20 09:29 03/06/20 02:29 Vancomycin HCl ([facility] pharmacy to dose) 1 ea DAILY PRN MISC Per rx protocol 03/05/20 08:30 04/04/20 08:29 Vancomycin HCl 750 mg/Sodium Chloride 275 ml @ 183.333 mls/hr ONCE ONCE IVPB 03/06/20 12:00 03/06/20 13:29 Isaak Hair MD Mar 06, 2020 10:34
--- NOTE | 2020-03-06 10:45 | Consultation ---
DATE OF CONSULTATION: 03/06/2020 NEPHROLOGY CONSULTATION CONSULTING PHYSICIAN: Ayanna Maldonado MD. ATTENDING PHYSICIAN: Jimi Tellez MD. REASON FOR CONSULTATION: Elevated BUN and creatinine and abnormal electrolytes. HISTORY OF PRESENT ILLNESS: This is an unfortunate 79-year-old male from a long term, admitted with septic shock. I am asked to see the patient for elevated BUN and creatinine, and abnormal electrolytes. PAST MEDICAL HISTORY: 1. Ventilator-dependant respiratory failure. 2. Anoxic encephalopathy. 3. Type 2 diabetes mellitus. 4. Hypertensive cardiovascular disease. CURRENT MEDICATIONS: 1. IV fluids with bicarb. 2. Keppra. 3. Norepinephrine drip. 4. Protonix drip. 5. Octreotide drip. 6. Phenylephrine drip. 7. IV Zosyn. 8. Vitamin C. 9. Sodium docusate. 10. DuoNeb inhalation. 11. Subcutaneous heparin. 12. Synthroid. 13. Protonix IV. 14. Kayexalate rectally. ALLERGIES: No known drug allergies. FAMILY HISTORY: Unable to obtain. SOCIAL HISTORY: Unable to obtain. REVIEW OF SYSTEMS: Unable to obtain. PHYSICAL EXAMINATION: GENERAL: This is an elderly male, who is on the ventilator. VITAL SIGNS: Blood pressure is 60/40, pulse 120 sinus tachycardia, respirations 28 unlabored. HEENT: Normocephalic and atraumatic. Pupils are equal, round, and reactive to light. NECK: Midline tracheostomy. LUNGS: Bilateral rhonchi. HEART: Tachycardia. S1 and S2. No rubs, murmurs, or gallops. ABDOMEN: Distended, soft, nontender. Bowel sounds were active. He has a G-tube. EXTREMITIES: No clubbing, cyanosis, or edema. NEUROLOGICAL: He is obtunded. There were no gross focal findings. LABORATORY AND ANCILLARY DATA: CBC shows white count of 40,200, hematocrit 23.2, and platelet count is 349. Chemistry, sodium 122, potassium 4.8, creatinine 4.1, BUN is pending. Urinalysis pending. Chest x-ray most likely bilateral pneumonia. Renal ultrasound, echogenic kidneys suggesting renal parenchymal disease. Small bilateral echogenic foci without shadowing, possibly representing renal stones. ASSESSMENT: 1. Acute oliguric renal failure. 2. Sepsis with multiorgan failure. PLAN: Continue current efforts with IV fluids, IV antibiotics, and pressors. This patients is in critical state. Thank you, Dr. Tellez and Dr. Martinez for letting me to participate in the care of this critically ill patient. Ayanna Maldonado M.D. DR: Emanuel JOB#: [id number] CC: KENDALL
--- NOTE | 2020-03-06 10:52 | Diagnostic Imaging Report ---
EXAM: US Duplex Bilateral Lower Extremities Veins CLINICAL HISTORY: DVT TECHNIQUE: Real-time duplex ultrasound scan of the bilateral lower extremity veins integrating B-mode two-dimensional vascular structure, Doppler spectral analysis, color flow Doppler imaging and compression. COMPARISON: No relevant prior studies available. FINDINGS: Right deep veins: Evaluation limited due to contractions. The right common femoral vein, greater saphenous vein, femoral vein, popliteal vein, and calf veins were not visualized. Left deep veins: Evaluation limited due to contractions. No deep venous thrombosis within the left common femoral vein and popliteal vein. IMPRESSION: Right: No deep venous thrombosis within the superficial femoral vein. Most of the right lower extremity veins were not visualized. Left: No deep venous thrombosis within the left common femoral vein or greater saphenous vein (superficial).
[2020-03-06] MEDS: levETIRAcetam 750 MG in NS 110 ML IV SCH ×2 (10:56→23:15)
--- NOTE | 2020-03-06 11:45 | Consultation ---
DATE OF CONSULTATION: 03/06/2020 CONSULTING PHYSICIAN: Michael Domínguez MD. CHIEF COMPLAINT: GI bleeding. HISTORY OF PRESENT ILLNESS: Most of history per chart. This is a 79-year-old correction patient with a history of a respiratory failure, on trach and history of G-tube, was admitted to the hospital with vomiting, possible aspiration pneumonia, elevated white count of 54,000, and the patient has a G-tube site bleeding, so GI consult requested for evaluation. PAST MEDICAL HISTORY: Significant for, 1. History of CVA. 2. Respiratory failure, on vent. 3. Dysphagia with PEG. 4. Diabetes. ALLERGIES: No known allergies. MEDICATIONS: Please see medication reconciliation list. PAST SURGICAL HISTORY: Tracheostomy. FAMILY HISTORY: Noncontributory. REVIEW OF SYSTEMS: Unable to obtain. PHYSICAL EXAMINATION: VITAL SIGNS: Temperature is 97.6, pulse 101, respirations 36, blood pressure 54/36. HEENT: Normocephalic and atraumatic. Sclerae are anicteric. NECK: Supple. No evidence of obvious lymphadenopathy. CARDIOVASCULAR: Tachy. Regular rate. Plus S1 and S2. LUNGS: Decreased breath sounds bilaterally diffusely. ABDOMEN: Soft. There is a lot of bleeding from the G-tube site and G-tube seems to be loose. EXTREMITIES: No cyanosis, no clubbing, no edema. LABORATORY DATA: White count 40,000, hemoglobin 7.6, hematocrit 23, platelet count 349,000. Chem-7, sodium 122, potassium 4.8, creatinine is 4.1. ASSESSMENT AND PLAN: This is a 79-year-old patient with possible aspiration pneumonia, significant bleeding from the G-tube site with drop in hemoglobin and hematocrit to 6. The patient is now hypotensive and septic with white count of 40,000 and hypotensive. The patient is not stable for any endoscopy procedure. I tightened up the G-tube at the bedside, inflated the balloon with 10 mL of water, which was loose and tightened it up and that helped to hold the bleeding, so most probably bleeding is from the G-tube site. There was no blood seen in the rectal tube, so I doubt the patient has massive upper GI bleeding causing his hypotension, most probably sepsis doing it. Plan to continue on octreotide, add Protonix, monitor hemoglobin and hematocrit, transfuse as needed to keep hemoglobin above 7. Keep NPO. Order a CT of the abdomen and pelvis without contrast today if the patient is stable to get it done. Antibiotics per ID. Respiratory care. We will follow. Michael Domínguez M.D. DR: DWAINE JOB#: [id number] CC:
[2020-03-06] MEDS ORDERED: Vancomycin 750mg/NS 275ml IVPB ONE ×2 (12:00)
[2020-03-06 12:08] LABS: BLOOD UREA NITROGEN 173 mg/dL (7-18); CALCIUM 9.5 MG/DL (8.5-10.1)
[2020-03-06 12:52] LABS: CARBON DIOXIDE 8 MMOL/L (21-32)
[2020-03-06] MEDS ORDERED: Sodium Bicarbonate 50ml Carp IV SCH (14:00)
[2020-03-06] MEDS: Zosyn 3.375gm q12h **Extended infusion IVPB SCH ×2 (17:01)
--- NOTE | 2020-03-06 17:15 | Cardiology Progress Note ---
Subjective DATE OF SERVICE: Mar 06, 2020 Remains in critical condition with guarded prognosis On vent via trach On IV fluids with bicarb Monitor: sinus/sinus tachycardia Hypotensive and requiring pressor support Objective Last 24 Hour Vital Signs Date Time Temp Pulse Resp B/P (MAP) Pulse Ox O2 Delivery O2 Flow Rate FiO2 03/06/20 16:45 101 34 40 03/06/20 16:30 98.5 104 31 153/90 (111) 100 03/06/20 16:15 101 26 134/75 (94) 100 03/06/20 16:05 105 03/06/20 16:00 40 03/06/20 16:00 98.5 102 28 142/73 (96) 100 03/06/20 16:00 Mechanical Ventilator 03/06/20 15:45 113 29 112/72 (85) 100 03/06/20 15:30 111 29 117/71 (86) 100 03/06/20 15:15 111 32 121/68 (85) 100 03/06/20 15:04 105 26 40 03/06/20 15:00 104 26 136/80 (98) 100 03/06/20 15:00 136/80 03/06/20 14:45 98.6 109 7 138/80 (99) 100 03/06/20 14:30 98.5 103 26 118/79 (92) 100 03/06/20 14:15 102 26 134/79 (97) 100 03/06/20 14:00 99 26 111/74 (86) 100 03/06/20 14:00 111/74 03/06/20 13:45 111 24 110/75 (87) 100 03/06/20 13:27 105 33 100 Mechanical Ventilator 40 104 33 40 03/06/20 13:15 107 30 116/71 (86) 100 03/06/20 13:00 109 31 122/73 (89) 100 03/06/20 13:00 122/73 03/06/20 12:45 110 29 122/73 (89) 100 03/06/20 12:30 105 30 110/70 (83) 100 03/06/20 12:15 107 29 114/69 (84) 100 03/06/20 12:00 98.6 109 30 121/73 (89) 100 03/06/20 12:00 121/73 03/06/20 12:00 Mechanical Ventilator 03/06/20 12:00 40 03/06/20 11:47 105 03/06/20 11:45 109 27 110/67 (81) 100 03/06/20 11:30 103 27 112/69 (83) 100 03/06/20 11:25 103 30 110/73 (85) 100 03/06/20 11:20 105 30 115/72 (86) 100 03/06/20 11:15 106 29 117/70 (86) 100 03/06/20 11:10 107 28 126/74 (91) 100 03/06/20 11:05 111 30 137/77 (97) 100 03/06/20 11:00 121 30 40 03/06/20 11:00 103 26 136/101 (113) 100 03/06/20 11:00 136/101 03/06/20 10:45 101 29 141/76 (97) 100 03/06/20 10:40 97 28 139/76 (97) 100 03/06/20 10:35 96 30 136/83 (100) 100 03/06/20 10:30 98 28 114/73 (87) 100 03/06/20 10:25 95 29 124/71 (88) 100 03/06/20 10:20 92 27 102/72 (82) 100 03/06/20 10:15 102 26 74/51 (59) 99 03/06/20 10:14 101 54/36 03/06/20 10:06 104 23 54/36 (42) 100 03/06/20 10:00 105 23 60/36 (44) 100 03/06/20 10:00 60/36 03/06/20 09:45 107 29 57/35 (42) 100 03/06/20 09:30 112 28 55/44 (48) 100 03/06/20 09:28 115 32 55/17 (30) 100 03/06/20 09:27 127 37 40 03/06/20 09:24 122 36 64/42 (49) 100 03/06/20 09:15 116 27 72/44 (53) 100 03/06/20 09:15 72/44 03/06/20 09:00 100/42 03/06/20 09:00 119 34 100/42 (61) 100 03/06/20 08:45 138/100 03/06/20 08:45 122 17 138/100 (113) 100 03/06/20 08:37 82/51 03/06/20 08:30 126 36 82/51 (61) 100 03/06/20 08:16 123 03/06/20 08:15 85/52 03/06/20 08:15 120 35 85/52 (63) 100 03/06/20 08:00 40 03/06/20 08:00 115 36 93/57 (69) 100 03/06/20 08:00 93/57 03/06/20 08:00 Mechanical Ventilator 03/06/20 07:48 120 39 92/63 (73) 100 03/06/20 07:45 115 37 87/65 (72) 100 03/06/20 07:35 108 27 93/56 (68) 99 03/06/20 07:30 107 28 89/60 (70) 100 03/06/20 07:15 122 38 40 03/06/20 07:15 104 24 101/59 (73) 100 03/06/20 07:00 98/68 03/06/20 07:00 103 29 98/68 (78) 100 03/06/20 06:45 106 36 91/62 (72) 100 03/06/20 06:30 112 32 94/59 (71) 100 03/06/20 06:15 103 31 91/63 (72) 100 03/06/20 06:00 106 34 100/61 (74) 100 03/06/20 06:00 100/61 03/06/20 05:53 83/60 03/06/20 05:52 99 25 83/60 (68) 100 03/06/20 05:45 100 26 90/63 (72) 100 03/06/20 05:31 100 36 40 03/06/20 05:30 102 29 90/60 (70) 100 03/06/20 05:15 105 28 97/65 (76) 100 03/06/20 05:00 117 32 91/64 (73) 100 03/06/20 05:00 91/64 03/06/20 04:45 126 38 110/89 (96) 100 03/06/20 04:30 116 41 99/63 (75) 100 03/06/20 04:15 100 31 90/65 (73) 100 03/06/20 04:00 97.6 107 29 77/51 (60) 100 03/06/20 04:00 77/51 03/06/20 04:00 111 03/06/20 04:00 40 03/06/20 04:00 Mechanical Ventilator 03/06/20 03:45 111 31 101/76 (84) 100 03/06/20 03:40 113 38 40 03/06/20 03:30 111 30 92/63 (73) 100 03/06/20 03:15 110 28 94/58 (70) 100 03/06/20 03:00 104/70 03/06/20 03:00 110 33 104/70 (81) 100 03/06/20 02:45 111 31 97/66 (76) 100 03/06/20 02:43 98/61 03/06/20 02:30 106 26 98/61 (73) 100 03/06/20 02:15 105 26 90/64 (73) 100 03/06/20 02:00 98.3 97 27 86/64 (71) 100 03/06/20 02:00 90/64 03/06/20 01:45 105 25 97/67 (77) 98 03/06/20 01:45 108 38 100 Mechanical Ventilator 40 104 33 40 03/06/20 01:30 107 27 92/66 (75) 100 03/06/20 01:15 104 21 90/54 (66) 99 03/06/20 01:00 95/61 03/06/20 01:00 106 24 95/61 (72) 97 03/06/20 00:45 104 27 93/63 (73) 98 03/06/20 00:30 104 27 88/58 (68) 98 03/06/20 00:30 88/58 03/06/20 00:15 104 28 87/68 (74) 98 03/06/20 00:15 87/68 03/06/20 00:00 103 03/06/20 00:00 90/63 03/06/20 00:00 98.2 106 28 90/63 (72) 98 03/06/20 00:00 40 03/06/20 00:00 Mechanical Ventilator 03/05/20 23:46 102 38 40 03/05/20 23:45 102 31 79/59 (66) 98 9/6/20 23:45 89/53 20 23:30 83/53 20 23:30 104 26 83/53 (63) 99 20 23:15 85/53 920 23:15 107 36 85/53 (64) 98 03/05/20 23:00 105 36 83/60 (68) 100 20 23:00 83/60 03/05/20 22:45 112 34 89/53 (65) 96 20 22:45 89/53 03/05/20 22:30 97 32 81/55 (64) 95 20 22:30 81/55 03/05/20 22:15 84/61 03/05/20 22:15 100 29 84/61 (69) 99 03/05/20 22:00 105/64 03/05/20 22:00 105 29 105/64 (78) 99 03/05/20 21:49 100 36 40 03/05/20 21:45 101 23 97/63 (74) 97 03/05/20 21:30 101 27 97/63 (74) 99 03/05/20 21:15 101 28 97/65 (76) 97 03/05/20 21:00 99 29 106/64 (78) 98 03/05/20 21:00 106/64 03/05/20 20:45 99 31 98/63 (75) 98 03/05/20 20:33 87/62 03/05/20 20:30 99 30 87/62 (70) 100 03/05/20 20:00 97.4 98 28 90/59 (69) 100 03/05/20 20:00 99 03/05/20 20:00 Mechanical Ventilator 03/05/20 20:00 40 /12/17 19:48 101 36 100 Mechanical Ventilator 40 99 34 40 03/05/20 19:46 96 25 86/59 (68) 100 03/05/20 19:30 98 25 94/58 (70) 100 20 19:00 99 28 104/60 (75) 100 20 18:30 113 26 96/59 (71) 100 03/05/20 18:00 119 31 119/65 (83) 100 03/05/20 17:30 115 30 98/56 (70) 100 ROS: unchanged from my dictation of 03/05/20 HEENT: Mechanically Ventilated, Thick Trach secretions RHYTHM: ST LUNGS: bilateral rhonchi CARDIAC: normal rate, regular rhythm, normal S1 and S2 ABDOMEN: normal bowel sounds, non tender, soft, G-Tube intact EXTREMITIES: non-tender, other - contractures Laboratory Tests Test 03/05/20 18:35 03/06/20 07:42 03/06/20 07:46 03/06/20 15:38 White Blood Count 22.4 K/UL (4.8-10.8) *H 40.2 K/UL (4.8-10.8) #*H Red Blood Count 1.99 M/UL (4.70-6.10) L 2.40 M/UL (4.70-6.10) L Hemoglobin 6.7 G/DL (14.2-18.0) *L 7.6 G/DL (14.2-18.0) L Hematocrit 21.2 % (42.0-52.0) L 23.2 % (42.0-52.0) L Mean Corpuscular Volume 107 FL (80-99) H 97 FL (80-99) # Mean Corpuscular Hemoglobin 33.9 PG (27.0-31.0) H 31.8 PG (27.0-31.0) H Mean Corpuscular Hemoglobin Concent 31.8 G/DL (32.0-36.0) L 33.0 G/DL (32.0-36.0) Red Cell Distribution Width 14.3 % (11.6-14.8) 14.2 % (11.6-14.8) Platelet Count 233 K/UL (150-450) 349 K/UL (150-450) Mean Platelet Volume 5.9 FL (6.5-10.1) L 5.2 FL (6.5-10.1) L Neutrophils (%) (Auto) % (45.0-75.0) % (45.0-75.0) Lymphocytes (%) (Auto) % (20.0-45.0) % (20.0-45.0) Monocytes (%) (Auto) % (1.0-10.0) % (1.0-10.0) Eosinophils (%) (Auto) % (0.0-3.0) % (0.0-3.0) Basophils (%) (Auto) % (0.0-2.0) % (0.0-2.0) Differential Total Cells Counted 100 100 Neutrophils % (Manual) 89 % (45-75) H 92 % (45-75) H Lymphocytes % (Manual) 5 % (20-45) L 2 % (20-45) L Monocytes % (Manual) 4 % (1-10) 4 % (1-10) Eosinophils % (Manual) 2 % (0-3) 0 % (0-3) Basophils % (Manual) 0 % (0-2) 0 % (0-2) Band Neutrophils 0 % (0-8) 2 % (0-8) Platelet Estimate Adequate Adequate Platelet Morphology Normal Normal Hypochromasia 3+ 3+ Anisocytosis 3+ 1+ Microcytosis 1+ Macrocytosis Occasional Arterial Blood pH 7.268 (7.350-7.450) 7.276 (7.350-7.450) Arterial Blood Partial Pressure CO2 29.7 mmHg (35.0-45.0) L 32.3 mmHg (35.0-45.0) L Arterial Blood Partial Pressure O2 94.4 mmHg (75.0-100.0) 136.2 mmHg (75.0-100.0) H Arterial Blood HCO3 13.3 mmol/L (22.0-26.0) *L 14.7 mmol/L (22.0-26.0) *L Arterial Blood Oxygen Saturation 96.3 % (95-100) 98.2 % (95-100) Arterial Blood Base Excess -12.5 (-2-2) *L -11.1 (-2-2) *L [place] Test Positive Positive Spherocytes 2+ Prothrombin Time 14.0 SEC (9.30-11.50) H Prothromb Time International Ratio 1.3 (0.9-1.1) H Activated Partial Thromboplast Time 36 SEC (23-33) H Sodium Level 122 MMOL/L (136-145) L Potassium Level 4.8 MMOL/L (3.5-5.1) Chloride Level 100 MMOL/L (98-107) Carbon Dioxide Level 8 MMOL/L (21-32) *L Blood Urea Nitrogen 173 mg/dL (7-18) H Creatinine 4.1 MG/DL (0.55-1.30) H Estimat Glomerular Filtration Rate 14.2 mL/min (>60) Glucose Level 204 MG/DL (74-106) H Calcium Level 9.5 MG/DL (8.5-10.1) Total Bilirubin 0.4 MG/DL (0.2-1.0) Aspartate Amino Transf (AST/SGOT) 22 U/L (15-37) Alanine Aminotransferase (ALT/SGPT) 33 U/L (12-78) Alkaline Phosphatase 96 U/L (46-116) Total Protein 6.4 G/DL (6.4-8.2) Albumin 1.5 G/DL (3.4-5.0) L Globulin 4.9 g/dL Albumin/Globulin Ratio 0.3 (1.0-2.7) L Random Vancomycin Level 12.5 ug/mL Microbiology Date/Time Source Procedure Growth Status 03/05/20 06:15 Blood Blood Culture - Preliminary Resulted 03/05/20 06:00 Blood Blood Culture - Preliminary Resulted 03/05/20 10:35 Sputum Expectorated Gram Stain - Final Resulted 03/05/20 10:35 Sputum Expectorated Sputum Culture Pending Resulted 03/05/20 06:00 Nasopharynx SARS-CoV-2 RdRp Gene Assay - Final Complete 03/05/20 09:39 Rectum Received Assessment/Plan Assessment/Plan Sepsis with shock Respiratory Failure Lactic acidosis Sinus tachycardia/PAFib Acute renal failure Aspiration PNA Leukocytosis Anemia GI Bleeding Dysphagia with GTube Pressor support Vent support Antimicrobials IVF with bicarb DVT prophylaxis Transfuse PRBC's for hemoglobin below 7 gm/dl. Franko Pineda MD Mar 06, 2020 17:15
[2020-03-06 19:23] LABS: HEMATOCRIT 19.9 % (42.0-52.0); MEAN CORPUSCULAR VOLUME 96 FL (80-99); PLATELET COUNT 237 K/UL (150-450); RED BLOOD COUNT 2.08 M/UL (4.70-6.10); RED CELL DISTRIBUTION WIDTH 15.1 % (11.6-14.8)
[2020-03-06 19:29] LABS: HEMOGLOBIN 6.8 G/DL (14.2-18.0); WHITE BLOOD COUNT 28.5 K/UL (4.8-10.8)
--- NOTE | 2020-03-06 19:59 | Pulmonolgy Critical Care Note ---
Critical Care - Asmt/Plan Assessment/Plan: Pulmonary CCM Consultation HPI Patient is a 79-year-old male with a history of respiratory failure with tracheostomy and feeding tube. He has a history of epilepsy, kidney disease quadriplegia. He presents with chief complaint of nausea and vomiting with coffee-ground emesis, respiratory distress. No reported fever. No diarrhea. Patient is coming from a shelter. History is from the shelter and EMS. Patient unable to give any history. Placed on Mechanical ventilation in the ED, ACVC: RR22 450 40% P5 Anemia related to acute blood loss requiring transfusion Central line placed in ED Covid negative in the ED Allergies: No Known Allergies Past Medical History: Vent, Trach, Prev Pseudomonal Pneumonia, Paroxysmal Atrial Fibrillation, Diabetes, CRI, Anemia, Prev CVA,Prev CPA, Seizure history, chronically AMS, hypothyroidism, GERD, dysphagia Past Surgical History: Tracheostomy Family History: NA Social History: NA All Other Systems: limited - Patient is nonverbal Physical Exam Vital Signs Noted General Appearance: sedated on the ventilator, Chronically Ill Head: normocephalic, atraumatic Eyes: bilateral eye PERRL, bilateral eye EOMI ENT: no masses, dry mucus membranes Neck: full range of motion, supple, tracheotomy Respiratory: chest non-tender, respiratory distress, ctab Cardiovascular : regular rate, rhythm, HS1, HS2 normal,no murmur, tachycardia Gastrointestinal: normal bowel sounds, non tender, no mass, no organomegaly, no bruit, non-distended, other - G-tube, femoral line Musculoskeletal: mild wasting Neurologic: no seizures Impression: Upper GI bleed Anemia due to acute blood loss H/o GERD, previous G tube Chronic Tracheostomy, Respiratory failure with elevatedCO2 Aspiration pneumonia Sepsis Renal insufficiency, hyperkalemia, metabolic acidosis Previous Pseudomonal Pneumonia H/o Paroxysmal Atrial Fibrillation Diabetes CRI Anemia Prev CVA Prev CPA with chronically AMS Seizure history Hypothyroidism Plan ACVC Recheck ABG Adjust FIO2, P 5 Pressors PRN TFN prn IVF IV Bicarbonate gtt ISS Type and Cross IV Protonix PPX gtt EKG: Tachycardic 132 bpm. Sinus rhythm. Rightward axis. No ectopy. Right bundle branch block pattern. T wave inversions in V1, V2, V3. Possible peaked T waves in V5 and V6 CXR: Tracheostomy, bilayteral basal infiltartes Laboratory Tests Noted Test 03/05/20 05:37 03/05/20 06:00 03/05/20 07:32 03/05/20 08:07 Lactic Acid Level 3.10 mmol/L (0.4-2.0) H 2.30 mmol/L (0.4-2.0) H White Blood Count 54.2 K/UL (4.8-10.8) *H Red Blood Count 2.78 M/UL (4.70-6.10) L Hemoglobin 9.3 G/DL (14.2-18.0) L Hematocrit 28.7 % (42.0-52.0) L Mean Corpuscular Volume 103 FL (80-99) H Mean Corpuscular Hemoglobin 33.4 PG (27.0-31.0) H Mean Corpuscular Hemoglobin Concent 32.4 G/DL (32.0-36.0) Red Cell Distribution Width 13.8 % (11.6-14.8) Platelet Count 537 K/UL (150-450) H Mean Platelet Volume 5.7 FL (6.5-10.1) L Neutrophils (%) (Auto) % (45.0-75.0) Lymphocytes (%) (Auto) % (20.0-45.0) Monocytes (%) (Auto) % (1.0-10.0) Eosinophils (%) (Auto) % (0.0-3.0) Basophils (%) (Auto) % (0.0-2.0) Differential Total Cells Counted 100 Neutrophils % (Manual) 79 % (45-75) H Lymphocytes % (Manual) 1 % (20-45) L Monocytes % (Manual) 5 % (1-10) Eosinophils % (Manual) 0 % (0-3) Basophils % (Manual) 0 % (0-2) Band Neutrophils 15 % (0-8) H Platelet Estimate Increased H Platelet Morphology Normal Macrocytosis 1+ Sodium Level 131 MMOL/L (136-145) L Potassium Level 6.8 MMOL/L (3.5-5.1) *H Pending Chloride Level 101 MMOL/L (98-107) Carbon Dioxide Level 14 MMOL/L (21-32) L Anion Gap 16 mmol/L (5-15) H Blood Urea Nitrogen 172 mg/dL (7-18) H Creatinine 4.3 MG/DL (0.55-1.30) H Estimated Glomerular Filtration Rate 13.5 mL/min (>60) Glucose Level 122 MG/DL (74-106) H Calcium Level 11.7 MG/DL (8.5-10.1) H Total Bilirubin 0.3 MG/DL (0.2-1.0) Aspartate Amino Transferase (AST) 23 U/L (15-37) Alanine Aminotransferase (ALT) 51 U/L (12-78) Alkaline Phosphatase 145 U/L (46-116) H Total Creatine Kinase 19 U/L (26-308) L Creatine Kinase MB 1.8 NG/ML (0.0-3.6) Creatine Kinase MB Relative Index 9.4 Troponin I 0.000 ng/mL (0.000-0.056) Total Protein 9.0 G/DL (6.4-8.2) H Albumin 1.9 G/DL (3.4-5.0) L Globulin 7.1 g/dL Albumin/Globulin Ratio 0.3 (1.0-2.7) L Microbiology Date/Time Source Procedure Growth Result 03/05/20 06:00 Nasopharynx SARS-CoV-2 RdRp Gene Assay - Final Negative Total critical care time 75 minutes, 43 minutes care co-ordination Critical Care - Objective Last 24 Hour Vital Signs Date Time Temp Pulse Resp B/P (MAP) Pulse Ox O2 Delivery O2 Flow Rate FiO2 03/06/20 19:22 122/79 03/06/20 19:22 108 27 100 Mechanical Ventilator 40 98 28 40 03/06/20 19:00 103 33 118/76 (90) 100 03/06/20 19:00 118/76 03/06/20 18:45 93/63 03/06/20 18:45 95 30 93/63 (73) 100 03/06/20 18:30 97 27 119/78 (92) 100 03/06/20 18:30 119/78 03/06/20 18:15 123/73 03/06/20 18:15 99 28 123/73 (90) 100 03/06/20 18:00 116/72 03/06/20 18:00 103 30 116/72 (87) 100 03/06/20 17:51 100 31 138/86 (103) 100 03/06/20 17:45 18 227/196 (206) 99 03/06/20 17:30 105 33 104/69 (81) 100 03/06/20 17:15 111 42 143/118 (126) 100 03/06/20 17:00 135/80 03/06/20 17:00 100 30 135/80 (98) 100 03/06/20 16:45 101 34 40 03/06/20 16:30 98.5 104 31 153/90 (111) 100 03/06/20 16:15 101 26 134/75 (94) 100 03/06/20 16:05 105 03/06/20 16:00 40 03/06/20 16:00 142/73 03/06/20 16:00 98.5 102 28 142/73 (96) 100 03/06/20 16:00 Mechanical Ventilator 03/06/20 15:45 113 29 112/72 (85) 100 03/06/20 15:30 111 29 117/71 (86) 100 03/06/20 15:15 111 32 121/68 (85) 100 03/06/20 15:04 105 26 40 03/06/20 15:00 104 26 136/80 (98) 100 03/06/20 15:00 136/80 03/06/20 14:45 98.6 109 7 138/80 (99) 100 03/06/20 14:30 98.5 103 26 118/79 (92) 100 03/06/20 14:15 102 26 134/79 (97) 100 03/06/20 14:00 99 26 111/74 (86) 100 03/06/20 14:00 111/74 03/06/20 13:45 111 24 110/75 (87) 100 03/06/20 13:27 105 33 100 Mechanical Ventilator 40 104 33 40 03/06/20 13:15 107 30 116/71 (86) 100 03/06/20 13:00 109 31 122/73 (89) 100 03/06/20 13:00 122/73 03/06/20 12:45 110 29 122/73 (89) 100 03/06/20 12:30 105 30 110/70 (83) 100 03/06/20 12:15 107 29 114/69 (84) 100 03/06/20 12:00 98.6 109 30 121/73 (89) 100 03/06/20 12:00 121/73 03/06/20 12:00 Mechanical Ventilator 03/06/20 12:00 40 03/06/20 11:47 105 03/06/20 11:45 109 27 110/67 (81) 100 03/06/20 11:30 103 27 112/69 (83) 100 03/06/20 11:25 103 30 110/73 (85) 100 03/06/20 11:20 105 30 115/72 (86) 100 03/06/20 11:15 106 29 117/70 (86) 100 03/06/20 11:10 107 28 126/74 (91) 100 03/06/20 11:05 111 30 137/77 (97) 100 03/06/20 11:00 121 30 40 03/06/20 11:00 103 26 136/101 (113) 100 03/06/20 11:00 136/101 03/06/20 10:45 101 29 141/76 (97) 100 03/06/20 10:40 97 28 139/76 (97) 100 03/06/20 10:35 96 30 136/83 (100) 100 03/06/20 10:30 98 28 114/73 (87) 100 03/06/20 10:25 95 29 124/71 (88) 100 03/06/20 10:20 92 27 102/72 (82) 100 03/06/20 10:15 102 26 74/51 (59) 99 03/06/20 10:14 101 54/36 03/06/20 10:06 104 23 54/36 (42) 100 03/06/20 10:00 105 23 60/36 (44) 100 03/06/20 10:00 60/36 03/06/20 09:45 107 29 57/35 (42) 100 03/06/20 09:30 112 28 55/44 (48) 100 03/06/20 09:28 115 32 55/17 (30) 100 03/06/20 09:27 127 37 40 03/06/20 09:24 122 36 64/42 (49) 100 03/06/20 09:15 116 27 72/44 (53) 100 03/06/20 09:15 72/44 03/06/20 09:00 100/42 03/06/20 09:00 119 34 100/42 (61) 100 03/06/20 08:45 138/100 03/06/20 08:45 122 17 138/100 (113) 100 03/06/20 08:37 82/51 03/06/20 08:30 126 36 82/51 (61) 100 03/06/20 08:16 123 03/06/20 08:15 85/52 03/06/20 08:15 120 35 85/52 (63) 100 03/06/20 08:00 40 03/06/20 08:00 115 36 93/57 (69) 100 03/06/20 08:00 93/57 03/06/20 08:00 Mechanical Ventilator 03/06/20 07:48 120 39 92/63 (73) 100 03/06/20 07:45 115 37 87/65 (72) 100 03/06/20 07:35 108 27 93/56 (68) 99 03/06/20 07:30 107 28 89/60 (70) 100 03/06/20 07:15 122 38 40 03/06/20 07:15 104 24 101/59 (73) 100 03/06/20 07:00 98/68 03/06/20 07:00 103 29 98/68 (78) 100 03/06/20 06:45 106 36 91/62 (72) 100 03/06/20 06:30 112 32 94/59 (71) 100 03/06/20 06:15 103 31 91/63 (72) 100 03/06/20 06:00 106 34 100/61 (74) 100 03/06/20 06:00 100/61 03/06/20 05:53 83/60 03/06/20 05:52 99 25 83/60 (68) 100 03/06/20 05:45 100 26 90/63 (72) 100 03/06/20 05:31 100 36 40 03/06/20 05:30 102 29 90/60 (70) 100 03/06/20 05:15 105 28 97/65 (76) 100 03/06/20 05:00 117 32 91/64 (73) 100 03/06/20 05:00 91/64 03/06/20 04:45 126 38 110/89 (96) 100 03/06/20 04:30 116 41 99/63 (75) 100 03/06/20 04:15 100 31 90/65 (73) 100 03/06/20 04:00 97.6 107 29 77/51 (60) 100 03/06/20 04:00 77/51 03/06/20 04:00 111 03/06/20 04:00 40 03/06/20 04:00 Mechanical Ventilator 03/06/20 03:45 111 31 101/76 (84) 100 03/06/20 03:40 113 38 40 03/06/20 03:30 111 30 92/63 (73) 100 03/06/20 03:15 110 28 94/58 (70) 100 03/06/20 03:00 104/70 03/06/20 03:00 110 33 104/70 (81) 100 03/06/20 02:45 111 31 97/66 (76) 100 03/06/20 02:43 98/61 03/06/20 02:30 106 26 98/61 (73) 100 03/06/20 02:15 105 26 90/64 (73) 100 03/06/20 02:00 98.3 97 27 86/64 (71) 100 03/06/20 02:00 90/64 03/06/20 01:45 105 25 97/67 (77) 98 03/06/20 01:45 108 38 100 Mechanical Ventilator 40 104 33 40 03/06/20 01:30 107 27 92/66 (75) 100 03/06/20 01:15 104 21 90/54 (66) 99 03/06/20 01:00 95/61 03/06/20 01:00 106 24 95/61 (72) 97 03/06/20 00:45 104 27 93/63 (73) 98 03/06/20 00:30 104 27 88/58 (68) 98 03/06/20 00:30 88/58 03/06/20 00:15 104 28 87/68 (74) 98 03/06/20 00:15 87/68 03/06/20 00:00 103 03/06/20 00:00 90/63 03/06/20 00:00 98.2 106 28 90/63 (72) 98 03/06/20 00:00 40 03/06/20 00:00 Mechanical Ventilator 9/6/20 23:46 102 38 40 03/05/20 23:45 102 31 79/59 (66) 98 03/05/20 23:45 89/53 03/05/20 23:30 83/53 03/05/20 23:30 104 26 83/53 (63) 99 03/05/20 23:15 85/53 03/05/20 23:15 107 36 85/53 (64) 98 03/05/20 23:00 105 36 83/60 (68) 100 03/05/20 23:00 83/60 03/05/20 22:45 112 34 89/53 (65) 96 03/05/20 22:45 89/53 03/05/20 22:30 97 32 81/55 (64) 95 03/05/20 22:30 81/55 03/05/20 22:15 84/61 03/05/20 22:15 100 29 84/61 (69) 99 03/05/20 22:00 105/64 03/05/20 22:00 105 29 105/64 (78) 99 03/05/20 21:49 100 36 40 03/05/20 21:45 101 23 97/63 (74) 97 03/05/20 21:30 101 27 97/63 (74) 99 03/05/20 21:15 101 28 97/65 (76) 97 03/05/20 21:00 99 29 106/64 (78) 98 03/05/20 21:00 106/64 03/05/20 20:45 99 31 98/63 (75) 98 03/05/20 20:33 87/62 03/05/20 20:30 99 30 87/62 (70) 100 03/05/20 20:00 97.4 98 28 90/59 (69) 100 03/05/20 20:00 99 03/05/20 20:00 Mechanical Ventilator 03/05/20 20:00 40 Micro: Microbiology Date/Time Source Procedure Growth Status 03/05/20 06:15 Blood Blood Culture - Preliminary Resulted 03/05/20 06:00 Blood Blood Culture - Preliminary Resulted 03/05/20 10:35 Sputum Expectorated Gram Stain - Final Resulted 03/05/20 10:35 Sputum Expectorated Sputum Culture Pending Resulted 03/05/20 06:00 Nasopharynx SARS-CoV-2 RdRp Gene Assay - Final Complete 03/05/20 09:39 Rectum Received Accucheck: 108 Critical Care - Subjective ROS Limited/Unobtainable: No Condition: critical FI02: 40 Vent Support Breath Rate: 26 Vent Support Mode: AC Vent Tidal Volume: 450 Sputum Amount: Small PEEP: 5.0 PIP: 31 I&O: Intake and Output 03/05/20 03/06/20 19:00 07:00 Intake Total 1094.99 ml 2885.500 ml Output Total 585 ml 1300 ml Balance 509.99 ml 1585.500 ml Intake Oral 0 ml Free Water 100 ml IV Total 994.99 ml 2385.500 ml Blood Product 500 ml Output Urine Total 185 ml 200 ml Stool Total 100 ml Gastric Drainage Total 400 ml 1000 ml # Bowel Movements 1 1 Franko Flynn MD Mar 06, 2020 19:58
[2020-03-06] MEDS: Dyna-Hex 2% Top Sol 2oz TOPIC SCH (20:11)
[2020-03-06] MEDS ORDERED: Pantoprazole Inj IVP SCH (21:00)
[2020-03-07] VITALS (79 sets, daily range): BP systolic 99–154; BP diastolic 66–97
[2020-03-07] MEDS: Albuterol/Ipratropium 3ml neb HHN SCH ×4 (01:07→19:16)
[2020-03-07] MEDS: Sodium Bicarbonate 50 ML in D5 1/2NS 1,000 ML IV SCH ×3 (03:21→21:39)
[2020-03-07] MEDS: Octreotide Acetate 500 MCG in Sodium Chloride 499 ML IV SCH ×2 (03:44→13:51)
[2020-03-07] MEDS ORDERED: LORazepam Inj 2mg/ml 1ml ONE (04:44)
[2020-03-07] MEDS: Norepinephrine Bitartrate 16 MG in Sodium Chloride 484 ML IV SCH ×2 (05:28→22:54)
[2020-03-07] MEDS: Zosyn 3.375gm q12h **Extended infusion IVPB SCH ×4 (05:28→18:53)
[2020-03-07 05:33] LABS: HEMATOCRIT 19.5 % (42.0-52.0); MEAN CORPUSCULAR VOLUME 91 FL (80-99); PLATELET COUNT 155 K/UL (150-450); RED BLOOD COUNT 2.14 M/UL (4.70-6.10); RED CELL DISTRIBUTION WIDTH 14.5 % (11.6-14.8); WHITE BLOOD COUNT 16.6 K/UL (4.8-10.8)
[2020-03-07] MEDS ORDERED: NaCl 3% 500ml 250 ML IV ONE (06:00)
[2020-03-07 06:10] LABS: HEMOGLOBIN 6.5 G/DL (14.2-18.0)
[2020-03-07] MEDS ORDERED: LORazepam Inj 2mg/ml 1ml IV PRN (06:15)
[2020-03-07 06:57] LABS: ALANINE AMINOTRANSFERASE 19 U/L (12-78); ALBUMIN 1.2 G/DL (3.4-5.0); ALBUMIN/GLOBULIN RATIO 0.3 (1.0-2.7); ALKALINE PHOSPHATASE 58 U/L (46-116); ANION GAP 12 mmol/L (5-15); ASPARTATE AMINO TRANSFERASE 16 U/L (15-37); BILIRUBIN,TOTAL 0.3 MG/DL (0.2-1.0); BLOOD UREA NITROGEN 130 mg/dL (7-18); CARBON DIOXIDE 18 MMOL/L (21-32); CHLORIDE 108 MMOL/L (98-107); CREATININE 3.6 MG/DL (0.55-1.30); SODIUM 138 MMOL/L (136-145)
[2020-03-07 07:14] LABS: PHOSPHORUS 3.8 MG/DL (2.5-4.9)
--- NOTE | 2020-03-07 08:05 | Critical Care Progress Note ---
Assessment/Plan Assessment/Plan Upper GI bleed Anemia due to acute blood loss H/o GERD, previous G tube Chronic Tracheostomy, Respiratory failure with elevatedCO2 Aspiration pneumonia Sepsis Renal insufficiency, hyperkalemia, metabolic acidosis Previous Pseudomonal Pneumonia H/o Paroxysmal Atrial Fibrillation Diabetes CRI Anemia s/p transfusion Prev CVA Chronic encephalopathy Seizure history Hypothyroidism PLAN care noted IV antibiotics respiratory care Ventilatory support SNF meds supportive care suction no wean oxygen therapy prognosis poor repeat transfusion medications/laboratory data/nursing notes/ICU care reviewed in detail note reviewed and edited care discussed with RN and RT ICU time spent >40 minutes Critical Care - Subjective Interval Events: in ICU on vent noted recurrent anemia ROS Limited/Unobtainable: Yes Condition: critical EKG Rhythm: Sinus Rhythm Residuals: minimal Tube Feeding Tolerated: yes I&O: Intake and Output 03/06/20 03/07/20 19:00 07:00 Intake Total 3835.213 ml 3153.71 ml Output Total 385 ml 860 ml Balance 3450.213 ml 2293.71 ml IV Total 3835.213 ml 2903.71 ml Blood Product 250 ml Output Urine Total 85 ml 360 ml Stool Total 200 ml Gastric Drainage Total 100 ml 500 ml # Bowel Movements 10 Critical Care - Objective Last 24 Hour Vital Signs Date Time Temp Pulse Resp B/P (MAP) Pulse Ox O2 Delivery O2 Flow Rate FiO2 03/07/20 07:15 83 27 108/70 (83) 100 03/07/20 07:00 92 32 134/71 (92) 100 03/07/20 07:00 134/71 03/07/20 06:45 85 30 121/69 (86) 100 03/07/20 06:45 121/69 03/07/20 06:30 86 30 114/73 (87) 100 03/07/20 06:15 88 30 115/72 (86) 100 03/07/20 06:00 86 28 116/69 (85) 100 03/07/20 06:00 116/69 03/07/20 05:45 86 31 111/71 (84) 100 03/07/20 05:30 86 30 117/69 (85) 100 03/07/20 05:28 127/77 03/07/20 05:15 86 27 127/73 (91) 100 03/07/20 05:00 99/71 03/07/20 05:00 87 29 99/71 (80) 100 03/07/20 04:45 95 32 132/83 (99) 100 03/07/20 04:30 89 30 117/73 (88) 100 03/07/20 04:15 90 28 120/73 (89) 100 03/07/20 04:00 Mechanical Ventilator 03/07/20 04:00 97.8 89 29 107/70 (82) 100 03/07/20 04:00 40 03/07/20 04:00 107/70 03/07/20 04:00 86 03/07/20 03:45 87 28 106/67 (80) 100 03/07/20 03:30 90 28 111/71 (84) 100 03/07/20 03:15 89 31 108/70 (83) 100 03/07/20 03:00 90 28 109/70 (83) 100 03/07/20 03:00 109/70 03/07/20 02:45 98 30 110/73 (85) 100 03/07/20 02:42 103 34 40 03/07/20 02:30 118/75 03/07/20 02:30 100 39 118/75 (89) 100 03/07/20 02:15 92 28 110/69 (83) 100 03/07/20 02:00 114/75 03/07/20 02:00 97 31 114/75 (88) 100 03/07/20 01:45 92 29 111/67 (82) 100 03/07/20 01:30 117/73 03/07/20 01:30 96 29 117/73 (88) 100 03/07/20 01:15 102 31 118/74 (89) 100 03/07/20 01:07 99 32 100 Mechanical Ventilator 40 103 30 40 03/07/20 01:00 89 30 118/71 (87) 100 03/07/20 01:00 118/71 03/07/20 00:45 92 31 116/74 (88) 100 03/07/20 00:30 91 30 118/76 (90) 100 03/07/20 00:30 118/76 03/07/20 00:15 95 31 127/74 (91) 100 03/07/20 00:00 131/80 03/07/20 00:00 Mechanical Ventilator 03/07/20 00:00 40 03/07/20 00:00 98.2 99 30 131/80 (97) 100 03/07/20 00:00 92 03/06/20 23:45 87 28 117/76 (90) 100 03/06/20 23:30 91 27 108/72 (84) 100 03/06/20 23:15 89 29 108/70 (83) 100 03/06/20 23:00 115/70 03/06/20 23:00 91 29 115/70 (85) 100 03/06/20 22:45 97 28 119/67 (84) 100 03/06/20 22:32 98 31 40 03/06/20 22:30 103 30 122/74 (90) 100 03/06/20 22:15 92 29 114/71 (85) 100 03/06/20 22:00 96 30 119/74 (89) 100 03/06/20 22:00 119/74 03/06/20 21:45 98 30 123/76 (92) 100 03/06/20 21:30 94 29 123/78 (93) 100 03/06/20 21:15 98 42 117/73 (88) 100 03/06/20 21:05 100 116/70 03/06/20 21:00 116/70 03/06/20 21:00 102 40 116/70 (85) 100 03/06/20 20:45 99 34 97/67 (77) 100 03/06/20 20:30 99 32 122/78 (93) 100 03/06/20 20:15 100 33 127/77 (94) 100 03/06/20 20:00 40 03/06/20 20:00 97.8 100 32 138/83 (101) 100 03/06/20 20:00 97 03/06/20 20:00 138/83 03/06/20 20:00 Mechanical Ventilator 03/06/20 19:45 102 34 131/80 (97) 100 03/06/20 19:30 94 28 141/88 (105) 100 03/06/20 19:22 122/79 03/06/20 19:22 108 27 100 Mechanical Ventilator 40 98 28 40 03/06/20 19:15 96 17 122/79 (93) 100 03/06/20 19:00 103 33 118/76 (90) 100 03/06/20 19:00 118/76 03/06/20 18:45 93/63 03/06/20 18:45 95 30 93/63 (73) 100 03/06/20 18:30 97 27 119/78 (92) 100 03/06/20 18:30 119/78 03/06/20 18:15 123/73 03/06/20 18:15 99 28 123/73 (90) 100 03/06/20 18:00 116/72 03/06/20 18:00 103 30 116/72 (87) 100 03/06/20 17:51 100 31 138/86 (103) 100 03/06/20 17:45 18 227/196 (206) 99 03/06/20 17:30 105 33 104/69 (81) 100 03/06/20 17:15 111 42 143/118 (126) 100 03/06/20 17:00 135/80 03/06/20 17:00 100 30 135/80 (98) 100 03/06/20 16:45 101 34 40 03/06/20 16:30 98.5 104 31 153/90 (111) 100 03/06/20 16:15 101 26 134/75 (94) 100 03/06/20 16:05 105 03/06/20 16:00 40 03/06/20 16:00 142/73 03/06/20 16:00 98.5 102 28 142/73 (96) 100 03/06/20 16:00 Mechanical Ventilator 03/06/20 15:45 113 29 112/72 (85) 100 03/06/20 15:30 111 29 117/71 (86) 100 03/06/20 15:15 111 32 121/68 (85) 100 03/06/20 15:04 105 26 40 03/06/20 15:00 104 26 136/80 (98) 100 03/06/20 15:00 136/80 03/06/20 14:45 98.6 109 7 138/80 (99) 100 03/06/20 14:30 98.5 103 26 118/79 (92) 100 03/06/20 14:15 102 26 134/79 (97) 100 03/06/20 14:00 99 26 111/74 (86) 100 03/06/20 14:00 111/74 03/06/20 13:45 111 24 110/75 (87) 100 03/06/20 13:27 105 33 100 Mechanical Ventilator 40 104 33 40 03/06/20 13:15 107 30 116/71 (86) 100 03/06/20 13:00 109 31 122/73 (89) 100 03/06/20 13:00 122/73 03/06/20 12:45 110 29 122/73 (89) 100 03/06/20 12:30 105 30 110/70 (83) 100 03/06/20 12:15 107 29 114/69 (84) 100 03/06/20 12:00 98.6 109 30 121/73 (89) 100 03/06/20 12:00 121/73 03/06/20 12:00 Mechanical Ventilator 03/06/20 12:00 40 03/06/20 11:47 105 03/06/20 11:45 109 27 110/67 (81) 100 03/06/20 11:30 103 27 112/69 (83) 100 03/06/20 11:25 103 30 110/73 (85) 100 03/06/20 11:20 105 30 115/72 (86) 100 03/06/20 11:15 106 29 117/70 (86) 100 03/06/20 11:10 107 28 126/74 (91) 100 03/06/20 11:05 111 30 137/77 (97) 100 03/06/20 11:00 121 30 40 03/06/20 11:00 103 26 136/101 (113) 100 03/06/20 11:00 136/101 03/06/20 10:45 101 29 141/76 (97) 100 03/06/20 10:40 97 28 139/76 (97) 100 03/06/20 10:35 96 30 136/83 (100) 100 03/06/20 10:30 98 28 114/73 (87) 100 03/06/20 10:25 95 29 124/71 (88) 100 03/06/20 10:20 92 27 102/72 (82) 100 03/06/20 10:15 102 26 74/51 (59) 99 03/06/20 10:14 101 54/36 03/06/20 10:06 104 23 54/36 (42) 100 03/06/20 10:00 105 23 60/36 (44) 100 03/06/20 10:00 60/36 03/06/20 09:45 107 29 57/35 (42) 100 03/06/20 09:30 112 28 55/44 (48) 100 03/06/20 09:28 115 32 55/17 (30) 100 03/06/20 09:27 127 37 40 03/06/20 09:24 122 36 64/42 (49) 100 03/06/20 09:15 116 27 72/44 (53) 100 03/06/20 09:15 72/44 03/06/20 09:00 100/42 03/06/20 09:00 119 34 100/42 (61) 100 03/06/20 08:45 138/100 03/06/20 08:45 122 17 138/100 (113) 100 03/06/20 08:37 82/51 03/06/20 08:30 126 36 82/51 (61) 100 03/06/20 08:16 123 03/06/20 08:15 85/52 03/06/20 08:15 120 35 85/52 (63) 100 Labs: Laboratory Tests Test 03/06/20 15:38 03/06/20 19:15 03/07/20 04:05 Arterial Blood pH 7.276 (7.350-7.450) Arterial Blood Partial Pressure CO2 32.3 mmHg (35.0-45.0) L Arterial Blood Partial Pressure O2 136.2 mmHg (75.0-100.0) H Arterial Blood HCO3 14.7 mmol/L (22.0-26.0) *L Arterial Blood Oxygen Saturation 98.2 % (95-100) Arterial Blood Base Excess -11.1 (-2-2) *L [place] Test Positive White Blood Count 28.5 K/UL (4.8-10.8) *H 16.6 K/UL (4.8-10.8) H Red Blood Count 2.08 M/UL (4.70-6.10) L 2.14 M/UL (4.70-6.10) L Hemoglobin 6.8 G/DL (14.2-18.0) *L 6.5 G/DL (14.2-18.0) *L Hematocrit 19.9 % (42.0-52.0) L 19.5 % (42.0-52.0) L Mean Corpuscular Volume 96 FL (80-99) 91 FL (80-99) Mean Corpuscular Hemoglobin 32.8 PG (27.0-31.0) H 30.6 PG (27.0-31.0) Mean Corpuscular Hemoglobin Concent 34.3 G/DL (32.0-36.0) 33.6 G/DL (32.0-36.0) Red Cell Distribution Width 15.1 % (11.6-14.8) H 14.5 % (11.6-14.8) Platelet Count 237 K/UL (150-450) 155 K/UL (150-450) Mean Platelet Volume 5.6 FL (6.5-10.1) L 5.1 FL (6.5-10.1) L Neutrophils (%) (Auto) % (45.0-75.0) % (45.0-75.0) Lymphocytes (%) (Auto) % (20.0-45.0) % (20.0-45.0) Monocytes (%) (Auto) % (1.0-10.0) % (1.0-10.0) Eosinophils (%) (Auto) % (0.0-3.0) % (0.0-3.0) Basophils (%) (Auto) % (0.0-2.0) % (0.0-2.0) Differential Total Cells Counted 100 Neutrophils % (Manual) 90 % (45-75) H Pending Lymphocytes % (Manual) 4 % (20-45) L Pending Monocytes % (Manual) 5 % (1-10) Eosinophils % (Manual) 1 % (0-3) Basophils % (Manual) 0 % (0-2) Band Neutrophils 0 % (0-8) Platelet Estimate Adequate Pending Platelet Morphology Normal Pending Hypochromasia 3+ Anisocytosis 1+ Sodium Level 138 MMOL/L (136-145) # Potassium Level 4.0 MMOL/L (3.5-5.1) Chloride Level 108 MMOL/L (98-107) H Carbon Dioxide Level 18 MMOL/L (21-32) L Anion Gap 12 mmol/L (5-15) Blood Urea Nitrogen 130 mg/dL (7-18) H Creatinine 3.6 MG/DL (0.55-1.30) H Estimat Glomerular Filtration Rate 16.5 mL/min (>60) Glucose Level 196 MG/DL (74-106) H Calcium Level 8.0 MG/DL (8.5-10.1) L Phosphorus Level 3.8 MG/DL (2.5-4.9) Magnesium Level Pending Total Bilirubin 0.3 MG/DL (0.2-1.0) Aspartate Amino Transf (AST/SGOT) 16 U/L (15-37) Alanine Aminotransferase (ALT/SGPT) 19 U/L (12-78) Alkaline Phosphatase 58 U/L (46-116) Troponin I 0.148 ng/mL (0.000-0.056) Total Protein 5.1 G/DL (6.4-8.2) L Albumin 1.2 G/DL (3.4-5.0) L Globulin 3.9 g/dL Albumin/Globulin Ratio 0.3 (1.0-2.7) L Thyroid Stimulating Hormone (TSH) 2.708 uiU/mL (0.358-3.740) Objective: WDWN NAD chronically ill reduced breath sounds bilaterally without rhonchi or wheeze [id number] without MRG NABS nontender not distended; GT no CCE nonfocal contracted Micro: Microbiology Date/Time Source Procedure Growth Status 03/05/20 06:15 Blood Blood Culture - Preliminary Gram Positive Cocci Resulted 03/05/20 06:00 Blood Blood Culture - Preliminary Gram Positive Cocci Resulted 03/05/20 10:35 Sputum Expectorated Gram Stain - Final Resulted 03/05/20 10:35 Sputum Expectorated Sputum Culture Pending Resulted 03/05/20 09:39 Nasal Nares MRSA Culture - Final NO METHICILLIN RESISTANT STAPH AUREUS... Complete 03/05/20 06:00 Nasopharynx SARS-CoV-2 RdRp Gene Assay - Final Complete 03/05/20 09:39 Rectum Received Accucheck: 108 Mansoor Martinez MD Mar 07, 2020 08:05
--- NOTE | 2020-03-07 08:48 | General Progress Note ---
Assessment/Plan Problem List: (1) GIB (gastrointestinal bleeding) ICD Codes: K92.2 - Gastrointestinal hemorrhage, unspecified SNOMED: 27850678 (2) Sepsis ICD Codes: A41.9 - Sepsis, unspecified organism SNOMED: 04381571 Qualifiers: Qualified Codes: A41.9 - Sepsis, unspecified organism; R65.20 - Severe sepsis without septic shock; N17.9 - Acute kidney failure, unspecified (3) Respiratory failure ICD Codes: J96.90 - Respiratory failure, unspecified, unspecified whether with hypoxia or hypercapnia SNOMED: 248644085 Qualifiers: Qualified Codes: J96.01 - Acute respiratory failure with hypoxia (4) Aspiration pneumonia ICD Codes: J69.0 - Pneumonitis due to inhalation of food and vomit SNOMED: 779606935 Qualifiers: Qualified Codes: O74.0 - Aspiration pneumonitis due to anesthesia during labor and delivery (5) HCAP (healthcare-associated pneumonia) ICD Codes: J18.9 - Pneumonia, unspecified organism SNOMED: 756061072, 011179595 (6) ARF (acute renal failure) ICD Codes: N17.9 - Acute kidney failure, unspecified SNOMED: 73553256, 430625110 Qualifiers: Qualified Codes: N17.9 - Acute kidney failure, unspecified Status: stable, unchanged Assessment/Plan: transfuse prbc as needed octreotide and protonix drip serial cbc pressors- wean off as able ivf iv abx vent support resp rx hold feeds sz rx critical grim prognosis d/w POA- out of town but returning today. requesting full code for now. will reassess when he returns to [place] later today. will consider DNR. Subjective ROS Limited/Unobtainable: Yes Constitutional: Reports: malaise, weakness HEENT: Reports: no symptoms Cardiovascular: Reports: no symptoms Respiratory: Reports: shortness of breath, sputum Gastrointestinal/Abdominal: Reports: blood in stool, difficulty swallowing Genitourinary: Reports: no symptoms Neurologic/Psychiatric: Reports: pre-existing deficit, seizure Endocrine: Reports: no symptoms Hematologic/Lymphatic: Reports: anemia Allergies: Coded Allergies: No Known Allergies (Unverified , 02/23/12) All Systems: reviewed and negative except above Subjective the same. +sz- 5min. resolved spontaneously. still with bloody output from gt. less per staff. decrease pressor requirements. bicarb better on labs. Hyponatremia better. Objective Last 24 Hour Vital Signs Date Time Temp Pulse Resp B/P (MAP) Pulse Ox O2 Delivery O2 Flow Rate FiO2 03/07/20 08:00 Mechanical Ventilator 03/07/20 08:00 97.1 84 28 112/69 (83) 100 03/07/20 08:00 40 03/07/20 08:00 112/69 03/07/20 07:55 85 03/07/20 07:45 90 30 107/70 (82) 100 03/07/20 07:30 92 4 135/66 (89) 100 03/07/20 07:17 103 30 40 03/07/20 07:15 83 27 108/70 (83) 100 03/07/20 07:00 92 32 134/71 (92) 100 03/07/20 07:00 134/71 03/07/20 06:45 85 30 121/69 (86) 100 03/07/20 06:45 121/69 03/07/20 06:30 86 30 114/73 (87) 100 03/07/20 06:15 88 30 115/72 (86) 100 03/07/20 06:00 86 28 116/69 (85) 100 03/07/20 06:00 116/69 03/07/20 05:45 86 31 111/71 (84) 100 03/07/20 05:30 86 30 117/69 (85) 100 03/07/20 05:28 127/77 03/07/20 05:15 86 27 127/73 (91) 100 03/07/20 05:00 99/71 03/07/20 05:00 87 29 99/71 (80) 100 03/07/20 04:45 95 32 132/83 (99) 100 03/07/20 04:30 89 30 117/73 (88) 100 03/07/20 04:15 90 28 120/73 (89) 100 03/07/20 04:00 Mechanical Ventilator 03/07/20 04:00 97.8 89 29 107/70 (82) 100 03/07/20 04:00 40 03/07/20 04:00 107/70 03/07/20 04:00 86 03/07/20 03:45 87 28 106/67 (80) 100 03/07/20 03:30 90 28 111/71 (84) 100 03/07/20 03:15 89 31 108/70 (83) 100 03/07/20 03:00 90 28 109/70 (83) 100 03/07/20 03:00 109/70 03/07/20 02:45 98 30 110/73 (85) 100 03/07/20 02:42 103 34 40 03/07/20 02:30 118/75 03/07/20 02:30 100 39 118/75 (89) 100 03/07/20 02:15 92 28 110/69 (83) 100 03/07/20 02:00 114/75 03/07/20 02:00 97 31 114/75 (88) 100 03/07/20 01:45 92 29 111/67 (82) 100 03/07/20 01:30 117/73 03/07/20 01:30 96 29 117/73 (88) 100 03/07/20 01:15 102 31 118/74 (89) 100 03/07/20 01:07 99 32 100 Mechanical Ventilator 40 103 30 40 03/07/20 01:00 89 30 118/71 (87) 100 03/07/20 01:00 118/71 03/07/20 00:45 92 31 116/74 (88) 100 03/07/20 00:30 91 30 118/76 (90) 100 03/07/20 00:30 118/76 03/07/20 00:15 95 31 127/74 (91) 100 03/07/20 00:00 131/80 03/07/20 00:00 Mechanical Ventilator 03/07/20 00:00 40 03/07/20 00:00 98.2 99 30 131/80 (97) 100 03/07/20 00:00 92 03/06/20 23:45 87 28 117/76 (90) 100 03/06/20 23:30 91 27 108/72 (84) 100 03/06/20 23:15 89 29 108/70 (83) 100 03/06/20 23:00 115/70 03/06/20 23:00 91 29 115/70 (85) 100 03/06/20 22:45 97 28 119/67 (84) 100 03/06/20 22:32 98 31 40 03/06/20 22:30 103 30 122/74 (90) 100 03/06/20 22:15 92 29 114/71 (85) 100 03/06/20 22:00 96 30 119/74 (89) 100 03/06/20 22:00 119/74 03/06/20 21:45 98 30 123/76 (92) 100 03/06/20 21:30 94 29 123/78 (93) 100 03/06/20 21:15 98 42 117/73 (88) 100 03/06/20 21:05 100 116/70 03/06/20 21:00 116/70 03/06/20 21:00 102 40 116/70 (85) 100 03/06/20 20:45 99 34 97/67 (77) 100 03/06/20 20:30 99 32 122/78 (93) 100 03/06/20 20:15 100 33 127/77 (94) 100 03/06/20 20:00 40 03/06/20 20:00 97.8 100 32 138/83 (101) 100 03/06/20 20:00 97 03/06/20 20:00 138/83 03/06/20 20:00 Mechanical Ventilator 03/06/20 19:45 102 34 131/80 (97) 100 03/06/20 19:30 94 28 141/88 (105) 100 03/06/20 19:22 122/79 03/06/20 19:22 108 27 100 Mechanical Ventilator 40 98 28 40 03/06/20 19:15 96 17 122/79 (93) 100 03/06/20 19:00 103 33 118/76 (90) 100 03/06/20 19:00 118/76 03/06/20 18:45 93/63 03/06/20 18:45 95 30 93/63 (73) 100 03/06/20 18:30 97 27 119/78 (92) 100 03/06/20 18:30 119/78 03/06/20 18:15 123/73 03/06/20 18:15 99 28 123/73 (90) 100 03/06/20 18:00 116/72 03/06/20 18:00 103 30 116/72 (87) 100 03/06/20 17:51 100 31 138/86 (103) 100 03/06/20 17:45 18 227/196 (206) 99 03/06/20 17:30 105 33 104/69 (81) 100 03/06/20 17:15 111 42 143/118 (126) 100 03/06/20 17:00 135/80 03/06/20 17:00 100 30 135/80 (98) 100 03/06/20 16:45 101 34 40 03/06/20 16:30 98.5 104 31 153/90 (111) 100 03/06/20 16:15 101 26 134/75 (94) 100 03/06/20 16:05 105 03/06/20 16:00 40 03/06/20 16:00 142/73 03/06/20 16:00 98.5 102 28 142/73 (96) 100 03/06/20 16:00 Mechanical Ventilator 03/06/20 15:45 113 29 112/72 (85) 100 03/06/20 15:30 111 29 117/71 (86) 100 03/06/20 15:15 111 32 121/68 (85) 100 03/06/20 15:04 105 26 40 03/06/20 15:00 104 26 136/80 (98) 100 03/06/20 15:00 136/80 03/06/20 14:45 98.6 109 7 138/80 (99) 100 03/06/20 14:30 98.5 103 26 118/79 (92) 100 03/06/20 14:15 102 26 134/79 (97) 100 03/06/20 14:00 99 26 111/74 (86) 100 03/06/20 14:00 111/74 03/06/20 13:45 111 24 110/75 (87) 100 03/06/20 13:27 105 33 100 Mechanical Ventilator 40 104 33 40 03/06/20 13:15 107 30 116/71 (86) 100 03/06/20 13:00 109 31 122/73 (89) 100 03/06/20 13:00 122/73 03/06/20 12:45 110 29 122/73 (89) 100 03/06/20 12:30 105 30 110/70 (83) 100 03/06/20 12:15 107 29 114/69 (84) 100 03/06/20 12:00 98.6 109 30 121/73 (89) 100 03/06/20 12:00 121/73 03/06/20 12:00 Mechanical Ventilator 03/06/20 12:00 40 03/06/20 11:47 105 03/06/20 11:45 109 27 110/67 (81) 100 03/06/20 11:30 103 27 112/69 (83) 100 03/06/20 11:25 103 30 110/73 (85) 100 03/06/20 11:20 105 30 115/72 (86) 100 03/06/20 11:15 106 29 117/70 (86) 100 03/06/20 11:10 107 28 126/74 (91) 100 03/06/20 11:05 111 30 137/77 (97) 100 03/06/20 11:00 121 30 40 03/06/20 11:00 103 26 136/101 (113) 100 03/06/20 11:00 136/101 03/06/20 10:45 101 29 141/76 (97) 100 03/06/20 10:40 97 28 139/76 (97) 100 03/06/20 10:35 96 30 136/83 (100) 100 03/06/20 10:30 98 28 114/73 (87) 100 03/06/20 10:25 95 29 124/71 (88) 100 03/06/20 10:20 92 27 102/72 (82) 100 03/06/20 10:15 102 26 74/51 (59) 99 03/06/20 10:14 101 54/36 03/06/20 10:06 104 23 54/36 (42) 100 03/06/20 10:00 105 23 60/36 (44) 100 03/06/20 10:00 60/36 03/06/20 09:45 107 29 57/35 (42) 100 03/06/20 09:30 112 28 55/44 (48) 100 03/06/20 09:28 115 32 55/17 (30) 100 03/06/20 09:27 127 37 40 03/06/20 09:24 122 36 64/42 (49) 100 03/06/20 09:15 116 27 72/44 (53) 100 03/06/20 09:15 72/44 03/06/20 09:00 100/42 03/06/20 09:00 119 34 100/42 (61) 100 03/06/20 08:45 138/100 03/06/20 08:45 122 17 138/100 (113) 100 Intake and Output 03/06/20 03/07/20 19:00 07:00 Intake Total 4085.213 ml 3153.71 ml Output Total 385 ml 860 ml Balance 3700.213 ml 2293.71 ml IV Total 3835.213 ml 2903.71 ml Blood Product 250 ml 250 ml Output Urine Total 85 ml 360 ml Stool Total 200 ml Gastric Drainage Total 100 ml 500 ml # Bowel Movements 10 Laboratory Tests 03/06/20 15:38: Arterial Blood pH 7.276L, Arterial Blood Partial Pressure CO2 32.3L, Arterial Blood Partial Pressure O2 136.2H, Arterial Blood HCO3 14.7*L, Arterial Blood Oxygen Saturation 98.2, Arterial Blood Base Excess -11.1*L, [place] Test Positive 03/06/20 19:15: White Blood Count 28.5*H, Red Blood Count 2.08L, Hemoglobin 6.8*L, Hematocrit 19.9L, Mean Corpuscular Volume 96, Mean Corpuscular Hemoglobin 32.8H, Mean Corpuscular Hemoglobin Concent 34.3, Red Cell Distribution Width 15.1H, Platelet Count 237, Mean Platelet Volume 5.6L, Neutrophils (%) (Auto) , Lymphocytes (%) (Auto) , Monocytes (%) (Auto) , Eosinophils (%) (Auto) , Basophils (%) (Auto) , Differential Total Cells Counted 100, Neutrophils % ( Manual) 90H, Lymphocytes % (Manual) 4L, Monocytes % (Manual) 5, Eosinophils % ( Manual) 1, Basophils % (Manual) 0, Band Neutrophils 0, Platelet Estimate Adequate, Platelet Morphology Normal, Hypochromasia 3+, Anisocytosis 1+ 03/07/20 04:05: White Blood Count 16.6H, Red Blood Count 2.14L, Hemoglobin 6.5*L, Hematocrit 19.5L, Mean Corpuscular Volume 91, Mean Corpuscular Hemoglobin 30.6, Mean Corpuscular Hemoglobin Concent 33.6, Red Cell Distribution Width 14.5, Platelet Count 155, Mean Platelet Volume 5.1L, Neutrophils (%) (Auto) , Lymphocytes (%) ( Auto) , Monocytes (%) (Auto) , Eosinophils (%) (Auto) , Basophils (%) (Auto) , Neutrophils % (Manual) [Pending], Lymphocytes % (Manual) [Pending], Platelet Estimate [Pending], Platelet Morphology [Pending], Sodium Level 138#, Potassium Level 4.0, Chloride Level 108H, Carbon Dioxide Level 18L, Anion Gap 12, Blood Urea Nitrogen 130H, Creatinine 3.6H, Estimat Glomerular Filtration Rate 16.5, Glucose Level 196H, Calcium Level 8.0L, Phosphorus Level 3.8, Magnesium Level [ Pending], Total Bilirubin 0.3, Aspartate Amino Transf (AST/SGOT) 16, Alanine Aminotransferase (ALT/SGPT) 19, Alkaline Phosphatase 58, Troponin I 0.148H, Total Protein 5.1L, Albumin 1.2L, Globulin 3.9, Albumin/Globulin Ratio 0.3L, Thyroid Stimulating Hormone (TSH) 2.708 Height (Feet): 5 Height (Inches): 7.00 Weight (Pounds): 160 General Appearance: WD/WN, cachetic, thin EENT: normal ENT inspection Neck: non-tender, normal alignment, supple Cardiovascular: normal rate, regular rhythm Respiratory/Chest: chest wall non-tender, lungs clear, normal breath sounds, no respiratory distress, no accessory muscle use Abdomen: normal bowel sounds, non tender, soft, no organomegaly, no mass Edema: no edema noted Arm (L), no edema noted Arm (R) Neurologic: disoriented, unresponsive, aphasia Skin: normal pigmentation Lymphatic: normal anterior cervical (L), normal anterior cervical (R) Jimi Tellez MD Mar 07, 2020 08:48
[2020-03-07] MEDS: Levothyroxine 25mcg tab GT SCH (09:00)
[2020-03-07] MEDS: Docusate 100mg/10ml Liq GT SCH ×3 (09:00→18:00)
[2020-03-07] MEDS: Levothyroxine 125mcg tab GT SCH (09:00)
[2020-03-07] MEDS: Ascorbic Acid 500mg tab GT SCH (09:00)
[2020-03-07] MEDS: Pantoprazole 80 MG in NS 250 ML IV SCH ×2 (09:09→18:53)
--- NOTE | 2020-03-07 10:47 | Infectious Diseases Prog Note ---
Assessment/Plan Assessment/Plan antibiotics : vancomycin iv, zosyn A 1. pneumonia 2. UTI 3. renal failure 4. shock 5. GI bleeding 6. diabetes mellitus 7. gram positive sepsis P 1. continue iv vancomycin, zosyn 2. will follow up cultures Subjective ROS Limited/Unobtainable: Yes Allergies: Coded Allergies: No Known Allergies (Unverified , 02/23/12) Objective Last 24 Hour Vital Signs Date Time Temp Pulse Resp B/P (MAP) Pulse Ox O2 Delivery O2 Flow Rate FiO2 03/07/20 10:15 83 29 124/73 (90) 100 03/07/20 10:00 92 29 126/75 (92) 100 03/07/20 09:45 79 27 119/69 (86) 100 03/07/20 09:30 83 28 115/72 (86) 100 03/07/20 09:15 82 27 114/70 (85) 100 03/07/20 09:00 112/73 03/07/20 09:00 80 29 112/73 (86) 100 03/07/20 08:45 88 30 114/72 (86) 100 03/07/20 08:30 88 29 117/70 (86) 100 03/07/20 08:15 80 27 113/67 (82) 100 03/07/20 08:00 Mechanical Ventilator 03/07/20 08:00 97.1 84 28 112/69 (83) 100 03/07/20 08:00 40 03/07/20 08:00 112/69 03/07/20 07:55 85 03/07/20 07:45 90 30 107/70 (82) 100 03/07/20 07:30 92 4 135/66 (89) 100 03/07/20 07:17 103 30 40 03/07/20 07:15 83 27 108/70 (83) 100 03/07/20 07:00 92 32 134/71 (92) 100 03/07/20 07:00 134/71 03/07/20 06:45 85 30 121/69 (86) 100 03/07/20 06:45 121/69 03/07/20 06:30 86 30 114/73 (87) 100 03/07/20 06:15 88 30 115/72 (86) 100 03/07/20 06:00 86 28 116/69 (85) 100 03/07/20 06:00 116/69 03/07/20 05:45 86 31 111/71 (84) 100 03/07/20 05:30 86 30 117/69 (85) 100 03/07/20 05:28 127/77 03/07/20 05:15 86 27 127/73 (91) 100 03/07/20 05:00 99/71 03/07/20 05:00 87 29 99/71 (80) 100 03/07/20 04:45 95 32 132/83 (99) 100 03/07/20 04:30 89 30 117/73 (88) 100 03/07/20 04:15 90 28 120/73 (89) 100 03/07/20 04:00 Mechanical Ventilator 03/07/20 04:00 97.8 89 29 107/70 (82) 100 03/07/20 04:00 40 03/07/20 04:00 107/70 03/07/20 04:00 86 03/07/20 03:45 87 28 106/67 (80) 100 03/07/20 03:30 90 28 111/71 (84) 100 03/07/20 03:15 89 31 108/70 (83) 100 03/07/20 03:00 90 28 109/70 (83) 100 03/07/20 03:00 109/70 03/07/20 02:45 98 30 110/73 (85) 100 03/07/20 02:42 103 34 40 03/07/20 02:30 118/75 03/07/20 02:30 100 39 118/75 (89) 100 03/07/20 02:15 92 28 110/69 (83) 100 03/07/20 02:00 114/75 03/07/20 02:00 97 31 114/75 (88) 100 03/07/20 01:45 92 29 111/67 (82) 100 03/07/20 01:30 117/73 03/07/20 01:30 96 29 117/73 (88) 100 03/07/20 01:15 102 31 118/74 (89) 100 03/07/20 01:07 99 32 100 Mechanical Ventilator 40 103 30 40 03/07/20 01:00 89 30 118/71 (87) 100 03/07/20 01:00 118/71 03/07/20 00:45 92 31 116/74 (88) 100 03/07/20 00:30 91 30 118/76 (90) 100 03/07/20 00:30 118/76 03/07/20 00:15 95 31 127/74 (91) 100 03/07/20 00:00 131/80 03/07/20 00:00 Mechanical Ventilator 03/07/20 00:00 40 03/07/20 00:00 98.2 99 30 131/80 (97) 100 03/07/20 00:00 92 03/06/20 23:45 87 28 117/76 (90) 100 03/06/20 23:30 91 27 108/72 (84) 100 03/06/20 23:15 89 29 108/70 (83) 100 03/06/20 23:00 115/70 03/06/20 23:00 91 29 115/70 (85) 100 03/06/20 22:45 97 28 119/67 (84) 100 03/06/20 22:32 98 31 40 03/06/20 22:30 103 30 122/74 (90) 100 03/06/20 22:15 92 29 114/71 (85) 100 03/06/20 22:00 96 30 119/74 (89) 100 03/06/20 22:00 119/74 03/06/20 21:45 98 30 123/76 (92) 100 03/06/20 21:30 94 29 123/78 (93) 100 03/06/20 21:15 98 42 117/73 (88) 100 03/06/20 21:05 100 116/70 03/06/20 21:00 116/70 03/06/20 21:00 102 40 116/70 (85) 100 03/06/20 20:45 99 34 97/67 (77) 100 03/06/20 20:30 99 32 122/78 (93) 100 03/06/20 20:15 100 33 127/77 (94) 100 03/06/20 20:00 40 03/06/20 20:00 97.8 100 32 138/83 (101) 100 03/06/20 20:00 97 03/06/20 20:00 138/83 03/06/20 20:00 Mechanical Ventilator 03/06/20 19:45 102 34 131/80 (97) 100 03/06/20 19:30 94 28 141/88 (105) 100 03/06/20 19:22 122/79 03/06/20 19:22 108 27 100 Mechanical Ventilator 40 98 28 40 03/06/20 19:15 96 17 122/79 (93) 100 03/06/20 19:00 103 33 118/76 (90) 100 03/06/20 19:00 118/76 03/06/20 18:45 93/63 03/06/20 18:45 95 30 93/63 (73) 100 03/06/20 18:30 97 27 119/78 (92) 100 03/06/20 18:30 119/78 03/06/20 18:15 123/73 03/06/20 18:15 99 28 123/73 (90) 100 03/06/20 18:00 116/72 03/06/20 18:00 103 30 116/72 (87) 100 03/06/20 17:51 100 31 138/86 (103) 100 03/06/20 17:45 18 227/196 (206) 99 03/06/20 17:30 105 33 104/69 (81) 100 03/06/20 17:15 111 42 143/118 (126) 100 03/06/20 17:00 135/80 03/06/20 17:00 100 30 135/80 (98) 100 03/06/20 16:45 101 34 40 03/06/20 16:30 98.5 104 31 153/90 (111) 100 03/06/20 16:15 101 26 134/75 (94) 100 03/06/20 16:05 105 03/06/20 16:00 40 03/06/20 16:00 142/73 03/06/20 16:00 98.5 102 28 142/73 (96) 100 03/06/20 16:00 Mechanical Ventilator 03/06/20 15:45 113 29 112/72 (85) 100 03/06/20 15:30 111 29 117/71 (86) 100 03/06/20 15:15 111 32 121/68 (85) 100 03/06/20 15:04 105 26 40 03/06/20 15:00 104 26 136/80 (98) 100 03/06/20 15:00 136/80 03/06/20 14:45 98.6 109 7 138/80 (99) 100 03/06/20 14:30 98.5 103 26 118/79 (92) 100 03/06/20 14:15 102 26 134/79 (97) 100 03/06/20 14:00 99 26 111/74 (86) 100 03/06/20 14:00 111/74 03/06/20 13:45 111 24 110/75 (87) 100 03/06/20 13:27 105 33 100 Mechanical Ventilator 40 104 33 40 03/06/20 13:15 107 30 116/71 (86) 100 03/06/20 13:00 109 31 122/73 (89) 100 03/06/20 13:00 122/73 03/06/20 12:45 110 29 122/73 (89) 100 03/06/20 12:30 105 30 110/70 (83) 100 03/06/20 12:15 107 29 114/69 (84) 100 03/06/20 12:00 98.6 109 30 121/73 (89) 100 03/06/20 12:00 121/73 03/06/20 12:00 Mechanical Ventilator 03/06/20 12:00 40 03/06/20 11:47 105 03/06/20 11:45 109 27 110/67 (81) 100 03/06/20 11:30 103 27 112/69 (83) 100 03/06/20 11:25 103 30 110/73 (85) 100 03/06/20 11:20 105 30 115/72 (86) 100 03/06/20 11:15 106 29 117/70 (86) 100 03/06/20 11:10 107 28 126/74 (91) 100 03/06/20 11:05 111 30 137/77 (97) 100 03/06/20 11:00 121 30 40 03/06/20 11:00 103 26 136/101 (113) 100 03/06/20 11:00 136/101 Height (Feet): 5 Height (Inches): 7.00 Weight (Pounds): 160 Respiratory/Chest: lungs clear Cardiovascular: normal rate, regular rhythm, no gallop/murmur Abdomen: soft, non tender, other - GT site bleeding Extremities: no edema, other - groin catheter Microbiology Date/Time Source Procedure Growth Status 03/05/20 06:15 Blood Blood Culture - Preliminary Gram Positive Cocci Resulted 03/05/20 06:00 Blood Blood Culture - Preliminary Gram Positive Cocci Resulted 03/05/20 10:35 Sputum Expectorated Gram Stain - Final Resulted 03/05/20 10:35 Sputum Expectorated Sputum Culture Pending Resulted 03/05/20 09:39 Nasal Nares MRSA Culture - Final NO METHICILLIN RESISTANT STAPH AUREUS... Complete 03/05/20 06:00 Nasopharynx SARS-CoV-2 RdRp Gene Assay - Final Complete 03/05/20 09:39 Rectum Received 03/05/20 09:30 Rectum VRE Culture - Final Enterococcus Faecalis - Vre Complete Laboratory Tests Test 03/06/20 15:38 03/06/20 19:15 03/07/20 04:05 Arterial Blood pH 7.276 (7.350-7.450) Arterial Blood Partial Pressure CO2 32.3 mmHg (35.0-45.0) L Arterial Blood Partial Pressure O2 136.2 mmHg (75.0-100.0) H Arterial Blood HCO3 14.7 mmol/L (22.0-26.0) *L Arterial Blood Oxygen Saturation 98.2 % (95-100) Arterial Blood Base Excess -11.1 (-2-2) *L [place] Test Positive White Blood Count 28.5 K/UL (4.8-10.8) *H 16.6 K/UL (4.8-10.8) H Red Blood Count 2.08 M/UL (4.70-6.10) L 2.14 M/UL (4.70-6.10) L Hemoglobin 6.8 G/DL (14.2-18.0) *L 6.5 G/DL (14.2-18.0) *L Hematocrit 19.9 % (42.0-52.0) L 19.5 % (42.0-52.0) L Mean Corpuscular Volume 96 FL (80-99) 91 FL (80-99) Mean Corpuscular Hemoglobin 32.8 PG (27.0-31.0) H 30.6 PG (27.0-31.0) Mean Corpuscular Hemoglobin Concent 34.3 G/DL (32.0-36.0) 33.6 G/DL (32.0-36.0) Red Cell Distribution Width 15.1 % (11.6-14.8) H 14.5 % (11.6-14.8) Platelet Count 237 K/UL (150-450) 155 K/UL (150-450) Mean Platelet Volume 5.6 FL (6.5-10.1) L 5.1 FL (6.5-10.1) L Neutrophils (%) (Auto) % (45.0-75.0) % (45.0-75.0) Lymphocytes (%) (Auto) % (20.0-45.0) % (20.0-45.0) Monocytes (%) (Auto) % (1.0-10.0) % (1.0-10.0) Eosinophils (%) (Auto) % (0.0-3.0) % (0.0-3.0) Basophils (%) (Auto) % (0.0-2.0) % (0.0-2.0) Differential Total Cells Counted 100 100 Neutrophils % (Manual) 90 % (45-75) H 90 % (45-75) H Lymphocytes % (Manual) 4 % (20-45) L 6 % (20-45) L Monocytes % (Manual) 5 % (1-10) 4 % (1-10) Eosinophils % (Manual) 1 % (0-3) 0 % (0-3) Basophils % (Manual) 0 % (0-2) 0 % (0-2) Band Neutrophils 0 % (0-8) 0 % (0-8) Platelet Estimate Adequate Adequate Platelet Morphology Normal Normal Hypochromasia 3+ 1+ Anisocytosis 1+ 1+ Sodium Level 138 MMOL/L (136-145) # Potassium Level 4.0 MMOL/L (3.5-5.1) Chloride Level 108 MMOL/L (98-107) H Carbon Dioxide Level 18 MMOL/L (21-32) L Anion Gap 12 mmol/L (5-15) Blood Urea Nitrogen 130 mg/dL (7-18) H Creatinine 3.6 MG/DL (0.55-1.30) H Estimat Glomerular Filtration Rate 16.5 mL/min (>60) Glucose Level 196 MG/DL (74-106) H Calcium Level 8.0 MG/DL (8.5-10.1) L Phosphorus Level 3.8 MG/DL (2.5-4.9) Magnesium Level 1.9 MG/DL (1.8-2.4) Total Bilirubin 0.3 MG/DL (0.2-1.0) Aspartate Amino Transf (AST/SGOT) 16 U/L (15-37) Alanine Aminotransferase (ALT/SGPT) 19 U/L (12-78) Alkaline Phosphatase 58 U/L (46-116) Troponin I 0.148 ng/mL (0.000-0.056) Total Protein 5.1 G/DL (6.4-8.2) L Albumin 1.2 G/DL (3.4-5.0) L Globulin 3.9 g/dL Albumin/Globulin Ratio 0.3 (1.0-2.7) L Thyroid Stimulating Hormone (TSH) 2.708 uiU/mL (0.358-3.740) Current Medications Medications (Trade) Dose Ordered Sig/Lanny Route PRN Reason Start Time Stop Time Status Last Admin Dose Admin Acetaminophen (Tylenol) 650 mg Q6H PRN ORAL MILD/TEMP 03/05/20 08:30 04/04/20 08:29 Albuterol/ Ipratropium (Albuterol/ Ipratropium) 3 ml Q6HRT HHN 03/05/20 13:00 03/10/20 12:59 03/07/20 01:07 Ascorbic Acid (Vitamin C) 500 mg DAILY GT 03/05/20 09:00 04/04/20 08:59 03/05/20 10:45 Barium Sulfate (Readi-Cat 2) 450 ml NOW PRN ORAL Radiology Procedure 03/06/20 10:45 03/08/20 10:39 Chlorhexidine Gluconate (Kayla-Hex 2%) 1 applic DAILY@2000 TOPIC 03/05/20 21:00 06/03/20 20:59 03/06/20 20:11 Docusate Sodium (Colace) 100 mg THREE TIMES A DAY GT 03/05/20 09:00 04/04/20 08:59 03/05/20 10:44 Levetiracetam 750 mg/Sodium Chloride 117.5 ml @ 470 mls/hr Q12H IV 03/05/20 23:00 04/04/20 22:59 03/06/20 23:15 Levothyroxine Sodium (Synthroid) 50 mcg DAILY GT 03/05/20 09:00 04/04/20 08:59 03/05/20 10:45 Levothyroxine Sodium (Synthroid) 125 mcg DAILY GT 03/05/20 09:00 04/04/20 08:59 03/05/20 10:45 Lorazepam (Ativan 2mg/ml 1ml) 1 mg Q4H PRN IV For Seizures 03/07/20 06:15 03/14/20 06:14 Norepinephrine Bitartrate 16 mg/ Sodium Chloride 500 ml @ 0 mls/hr Q24H IV 03/06/20 08:30 04/05/20 08:29 03/07/20 05:28 Octreotide Acetate 500 mcg/ Sodium Chloride 500 ml @ 50 mls/hr Q10H IV 03/06/20 08:00 04/05/20 07:59 03/07/20 03:44 Pantoprazole 80 mg/Sodium Chloride 250 ml @ 25 mls/hr Q10H IV 03/05/20 12:30 04/04/20 12:29 03/07/20 09:09 Phenylephrine HCl 100 mg/Dextrose 250 ml @ 0 mls/hr Q24H IV 03/06/20 09:45 04/05/20 09:44 03/06/20 21:05 Piperacillin Sod/ Tazobactam Sod 3.375 gm/Sodium Chloride 110 ml @ 27.5 mls/hr Q12HR@0600,1800 IVPB 03/06/20 18:00 03/13/20 17:59 03/07/20 05:28 Sodium Bicarbonate 50 ml/ Dextrose/Sodium Chloride 1,050 ml @ 125 mls/hr Q8H24M IV 03/05/20 09:30 04/04/20 09:29 03/07/20 03:21 Vancomycin HCl ([facility] pharmacy to dose) 1 ea DAILY PRN MISC Per rx protocol 03/05/20 08:30 04/04/20 08:29 Isaak Hair MD Mar 07, 2020 10:47
[2020-03-07] MEDS: levETIRAcetam 750 MG in NS 110 ML IV SCH ×2 (11:51→22:10)
--- NOTE | 2020-03-07 12:54 | Consultation ---
History of Present Illness General Date patient seen: Mar 07, 2020 Chief Complaint: Vomiting Present Illness HPI This is an unfortunate 79-year-old male with a history of respiratory failure s/ p tracheostomy and peg who has prior epilepsy, kidney disease, quadriplegia that now presents with chief complaint of nausea and vomiting coffee-ground emesis. He also has respiratory distress, No reported fever. No diarrhea. Patient is coming from a custodial. History is from the custodial and EMS. Patient unable to give any history. Abnormal labs admitted to intensive care unit further care and management. Patient well-known to me from prior care plan who cared for in the past. Called to evaluate patient seen, patient evaluated, chart reviewed Allergies: Coded Allergies: No Known Allergies (Unverified , 02/23/12) Medication History Scheduled Acetaminophen* (Tylenol*), 500 MG PO Q8H, (Reported) Amlodipine Besylate* (Amlodipine Besylate*), 5 MG GT DAILY, (Reported) Arginine/Glutamine/Calcium Hmb (Kirill Packet), 1 EACH GT BID, (Reported) Arginine/Glutamine/Calcium Hmb (Kirill Packet), 1 EACH GT 2x month, (Reported) Ascorbic Acid* (Vitamin C*), 500 MG GT DAILY, (Reported) Bisacodyl* (Dulcolax*), 10 MG ORAL DAILY, (Reported) Cephalexin* (Keflex*), 500 MG ORAL EVERY 12 HOURS Cranberry Extract (Cranberry), 425 MG GT DAILY, (Reported) Docusate Sodium* (Colace*), 100 MG ORAL TWICE A DAY, (Reported) Docusate Sodium* (Docusate Sodium*), 100 MG GT THREE TIMES A DAY, (Reported) Famotidine* (Pepcid 20mg tablet*), 20 MG GT DAILY, (Reported) Famotidine* (Pepcid 20mg tablet*), 10 MG ORAL BID, (Reported) Levetiracetam (Keppra), 750 MG GT EVERY 12 HOURS, (Reported) Levothyroxine Sodium* (Levothyroxine Sodium*), 175 MCG GT DAILY, (Reported) Magnesium Hydroxide* (Milk Of Magnesia*), 30 ML ORAL DAILY, (Reported) Multivitamin Liquid* (Multi-Delyn*), 15 ML GT DAILY, (Reported) Multivitamins* (Multivitamins*), 1 EACH PO DAILY, (Reported) Na Phos,M-B/Na Phos,Di-Ba* (Fleet Enema*), 133 ML RECTAL DAILY, (Reported) Thiamine Hcl* (Vitamin B-1*), 100 MG GT DAILY, (Reported) Vancomycin HCl (Vancocin HCl), 500 MG GT QID, (Reported) Scheduled PRN Acetaminophen* (Acetaminophen*), 20 MG GT Q6H PRN for Mild Pain/Temp > 100.5, ( Reported) Miscellaneous Medications Epoetin Asaf (Epogen), 20,000 UNIT SUBQ, (Reported) Insulin Aspart (Novolog), 100 UNIT SQ, (Reported) Lenalidomide (Revlimid), 10 MG GT, (Reported) Levetiracetam (Keppra), 750 MG ORAL, (Reported) Patient History Limited by: medical condition History Provided By: Medical Record, PMD Healthcare decision maker Resuscitation status Advanced Directive on File Past Medical/Surgical History Past Medical/Surgical History: (1) Dehydration (2) UTI (urinary tract infection) (3) Metabolic acidosis (4) Protein-calorie malnutrition, severe (5) AUDREY (acute kidney injury) (6) Hypernatremia (7) Renal insufficiency (8) Respiratory insufficiency (9) Malnutrition (10) Tracheal stenosis (11) CKD (chronic kidney disease) stage 3, GFR 30-59 ml/min (12) Elevated LFTs (13) Suspected COVID-19 virus infection (14) Hypokalemia (15) Decubitus skin ulcer (16) Respiratory failure (17) GIB (gastrointestinal bleeding) (18) Hyperkalemia (19) Anemia (20) Pneumonia (21) Aspiration pneumonia (22) Sepsis (23) ARF (acute renal failure) (24) HCAP (healthcare-associated pneumonia) Review of Systems All Other Systems: negative except mentioned in HPI ROS Narrative limited given medical condition Physical Exam General Appearance: alert, mild distress Lines, tubes and drains: gtube, other HEENT: normocephalic, atraumatic, anicteric Neck: supple, normal inspection, trach Respiratory/Chest: no respiratory distress, no accessory muscle use, decreased breath sounds, on vent Cardiovascular/Chest: normal peripheral pulses, regular rhythm, no JVD Abdomen: soft, no organomegaly, no mass, feeding tube Extremities: normal inspection, no calf tenderness Skin Exam: warm/dry Neurologic: alert Last 24 Hour Vital Signs Date Time Temp Pulse Resp B/P (MAP) Pulse Ox O2 Delivery O2 Flow Rate FiO2 03/07/20 12:12 78 03/07/20 12:00 Mechanical Ventilator 03/07/20 12:00 127/74 03/07/20 12:00 40 03/07/20 12:00 81 29 127/74 (91) 100 03/07/20 11:30 91 18 130/79 (96) 100 03/07/20 11:15 91 31 119/76 (90) 100 03/07/20 11:14 81 29 40 03/07/20 11:00 84 29 125/68 (87) 100 03/07/20 11:00 125/68 03/07/20 10:45 87 27 128/73 (91) 100 03/07/20 10:30 80 30 125/72 (89) 100 03/07/20 10:15 83 29 124/73 (90) 100 03/07/20 10:00 92 29 126/75 (92) 100 03/07/20 10:00 126/75 03/07/20 09:45 79 27 119/69 (86) 100 03/07/20 09:30 83 28 115/72 (86) 100 03/07/20 09:15 82 27 114/70 (85) 100 03/07/20 09:00 112/73 03/07/20 09:00 80 29 112/73 (86) 100 03/07/20 08:45 88 30 114/72 (86) 100 03/07/20 08:30 88 29 117/70 (86) 100 03/07/20 08:15 80 27 113/67 (82) 100 03/07/20 08:00 Mechanical Ventilator 03/07/20 08:00 97.1 84 28 112/69 (83) 100 03/07/20 08:00 40 03/07/20 08:00 112/69 03/07/20 07:55 85 03/07/20 07:45 90 30 107/70 (82) 100 03/07/20 07:30 92 4 135/66 (89) 100 03/07/20 07:17 103 30 40 03/07/20 07:15 83 27 108/70 (83) 100 03/07/20 07:00 92 32 134/71 (92) 100 03/07/20 07:00 134/71 03/07/20 06:45 85 30 121/69 (86) 100 03/07/20 06:45 121/69 03/07/20 06:30 86 30 114/73 (87) 100 03/07/20 06:15 88 30 115/72 (86) 100 03/07/20 06:00 86 28 116/69 (85) 100 03/07/20 06:00 116/69 03/07/20 05:45 86 31 111/71 (84) 100 03/07/20 05:30 86 30 117/69 (85) 100 03/07/20 05:28 127/77 03/07/20 05:15 86 27 127/73 (91) 100 03/07/20 05:00 99/71 03/07/20 05:00 87 29 99/71 (80) 100 03/07/20 04:45 95 32 132/83 (99) 100 03/07/20 04:30 89 30 117/73 (88) 100 03/07/20 04:15 90 28 120/73 (89) 100 03/07/20 04:00 Mechanical Ventilator 03/07/20 04:00 97.8 89 29 107/70 (82) 100 03/07/20 04:00 40 03/07/20 04:00 107/70 03/07/20 04:00 86 03/07/20 03:45 87 28 106/67 (80) 100 03/07/20 03:30 90 28 111/71 (84) 100 03/07/20 03:15 89 31 108/70 (83) 100 03/07/20 03:00 90 28 109/70 (83) 100 03/07/20 03:00 109/70 03/07/20 02:45 98 30 110/73 (85) 100 03/07/20 02:42 103 34 40 03/07/20 02:30 118/75 03/07/20 02:30 100 39 118/75 (89) 100 03/07/20 02:15 92 28 110/69 (83) 100 03/07/20 02:00 114/75 03/07/20 02:00 97 31 114/75 (88) 100 03/07/20 01:45 92 29 111/67 (82) 100 03/07/20 01:30 117/73 03/07/20 01:30 96 29 117/73 (88) 100 03/07/20 01:15 102 31 118/74 (89) 100 03/07/20 01:07 99 32 100 Mechanical Ventilator 40 103 30 40 03/07/20 01:00 89 30 118/71 (87) 100 03/07/20 01:00 118/71 03/07/20 00:45 92 31 116/74 (88) 100 03/07/20 00:30 91 30 118/76 (90) 100 03/07/20 00:30 118/76 03/07/20 00:15 95 31 127/74 (91) 100 03/07/20 00:00 131/80 03/07/20 00:00 Mechanical Ventilator 03/07/20 00:00 40 03/07/20 00:00 98.2 99 30 131/80 (97) 100 03/07/20 00:00 92 03/06/20 23:45 87 28 117/76 (90) 100 03/06/20 23:30 91 27 108/72 (84) 100 03/06/20 23:15 89 29 108/70 (83) 100 03/06/20 23:00 115/70 03/06/20 23:00 91 29 115/70 (85) 100 03/06/20 22:45 97 28 119/67 (84) 100 03/06/20 22:32 98 31 40 03/06/20 22:30 103 30 122/74 (90) 100 03/06/20 22:15 92 29 114/71 (85) 100 03/06/20 22:00 96 30 119/74 (89) 100 03/06/20 22:00 119/74 03/06/20 21:45 98 30 123/76 (92) 100 03/06/20 21:30 94 29 123/78 (93) 100 03/06/20 21:15 98 42 117/73 (88) 100 03/06/20 21:05 100 116/70 03/06/20 21:00 116/70 03/06/20 21:00 102 40 116/70 (85) 100 03/06/20 20:45 99 34 97/67 (77) 100 03/06/20 20:30 99 32 122/78 (93) 100 03/06/20 20:15 100 33 127/77 (94) 100 03/06/20 20:00 40 03/06/20 20:00 97.8 100 32 138/83 (101) 100 03/06/20 20:00 97 03/06/20 20:00 138/83 03/06/20 20:00 Mechanical Ventilator 03/06/20 19:45 102 34 131/80 (97) 100 03/06/20 19:30 94 28 141/88 (105) 100 03/06/20 19:22 122/79 03/06/20 19:22 108 27 100 Mechanical Ventilator 40 98 28 40 03/06/20 19:15 96 17 122/79 (93) 100 03/06/20 19:00 103 33 118/76 (90) 100 03/06/20 19:00 118/76 03/06/20 18:45 93/63 03/06/20 18:45 95 30 93/63 (73) 100 03/06/20 18:30 97 27 119/78 (92) 100 03/06/20 18:30 119/78 03/06/20 18:15 123/73 03/06/20 18:15 99 28 123/73 (90) 100 03/06/20 18:00 116/72 03/06/20 18:00 103 30 116/72 (87) 100 03/06/20 17:51 100 31 138/86 (103) 100 03/06/20 17:45 18 227/196 (206) 99 03/06/20 17:30 105 33 104/69 (81) 100 03/06/20 17:15 111 42 143/118 (126) 100 03/06/20 17:00 135/80 03/06/20 17:00 100 30 135/80 (98) 100 03/06/20 16:45 101 34 40 03/06/20 16:30 98.5 104 31 153/90 (111) 100 03/06/20 16:15 101 26 134/75 (94) 100 03/06/20 16:05 105 03/06/20 16:00 40 03/06/20 16:00 142/73 03/06/20 16:00 98.5 102 28 142/73 (96) 100 03/06/20 16:00 Mechanical Ventilator 03/06/20 15:45 113 29 112/72 (85) 100 03/06/20 15:30 111 29 117/71 (86) 100 03/06/20 15:15 111 32 121/68 (85) 100 03/06/20 15:04 105 26 40 03/06/20 15:00 104 26 136/80 (98) 100 03/06/20 15:00 136/80 03/06/20 14:45 98.6 109 7 138/80 (99) 100 03/06/20 14:30 98.5 103 26 118/79 (92) 100 03/06/20 14:15 102 26 134/79 (97) 100 03/06/20 14:00 99 26 111/74 (86) 100 03/06/20 14:00 111/74 03/06/20 13:45 111 24 110/75 (87) 100 03/06/20 13:27 105 33 100 Mechanical Ventilator 40 104 33 40 03/06/20 13:15 107 30 116/71 (86) 100 03/06/20 13:00 109 31 122/73 (89) 100 03/06/20 13:00 122/73 Intake and Output 03/06/20 03/07/20 19:00 07:00 Intake Total 4085.213 ml 3153.71 ml Output Total 385 ml 860 ml Balance 3700.213 ml 2293.71 ml IV Total 3835.213 ml 2903.71 ml Blood Product 250 ml 250 ml Output Urine Total 85 ml 360 ml Stool Total 200 ml Gastric Drainage Total 100 ml 500 ml # Bowel Movements 10 Laboratory Tests Test 03/06/20 15:38 03/06/20 19:15 03/07/20 04:05 Arterial Blood pH 7.276 (7.350-7.450) Arterial Blood Partial Pressure CO2 32.3 mmHg (35.0-45.0) L Arterial Blood Partial Pressure O2 136.2 mmHg (75.0-100.0) H Arterial Blood HCO3 14.7 mmol/L (22.0-26.0) *L Arterial Blood Oxygen Saturation 98.2 % (95-100) Arterial Blood Base Excess -11.1 (-2-2) *L [place] Test Positive White Blood Count 28.5 K/UL (4.8-10.8) *H 16.6 K/UL (4.8-10.8) H Red Blood Count 2.08 M/UL (4.70-6.10) L 2.14 M/UL (4.70-6.10) L Hemoglobin 6.8 G/DL (14.2-18.0) *L 6.5 G/DL (14.2-18.0) *L Hematocrit 19.9 % (42.0-52.0) L 19.5 % (42.0-52.0) L Mean Corpuscular Volume 96 FL (80-99) 91 FL (80-99) Mean Corpuscular Hemoglobin 32.8 PG (27.0-31.0) H 30.6 PG (27.0-31.0) Mean Corpuscular Hemoglobin Concent 34.3 G/DL (32.0-36.0) 33.6 G/DL (32.0-36.0) Red Cell Distribution Width 15.1 % (11.6-14.8) H 14.5 % (11.6-14.8) Platelet Count 237 K/UL (150-450) 155 K/UL (150-450) Mean Platelet Volume 5.6 FL (6.5-10.1) L 5.1 FL (6.5-10.1) L Neutrophils (%) (Auto) % (45.0-75.0) % (45.0-75.0) Lymphocytes (%) (Auto) % (20.0-45.0) % (20.0-45.0) Monocytes (%) (Auto) % (1.0-10.0) % (1.0-10.0) Eosinophils (%) (Auto) % (0.0-3.0) % (0.0-3.0) Basophils (%) (Auto) % (0.0-2.0) % (0.0-2.0) Differential Total Cells Counted 100 100 Neutrophils % (Manual) 90 % (45-75) H 90 % (45-75) H Lymphocytes % (Manual) 4 % (20-45) L 6 % (20-45) L Monocytes % (Manual) 5 % (1-10) 4 % (1-10) Eosinophils % (Manual) 1 % (0-3) 0 % (0-3) Basophils % (Manual) 0 % (0-2) 0 % (0-2) Band Neutrophils 0 % (0-8) 0 % (0-8) Platelet Estimate Adequate Adequate Platelet Morphology Normal Normal Hypochromasia 3+ 1+ Anisocytosis 1+ 1+ Sodium Level 138 MMOL/L (136-145) # Potassium Level 4.0 MMOL/L (3.5-5.1) Chloride Level 108 MMOL/L (98-107) H Carbon Dioxide Level 18 MMOL/L (21-32) L Anion Gap 12 mmol/L (5-15) Blood Urea Nitrogen 130 mg/dL (7-18) H Creatinine 3.6 MG/DL (0.55-1.30) H Estimat Glomerular Filtration Rate 16.5 mL/min (>60) Glucose Level 196 MG/DL (74-106) H Calcium Level 8.0 MG/DL (8.5-10.1) L Phosphorus Level 3.8 MG/DL (2.5-4.9) Magnesium Level 1.9 MG/DL (1.8-2.4) Total Bilirubin 0.3 MG/DL (0.2-1.0) Aspartate Amino Transf (AST/SGOT) 16 U/L (15-37) Alanine Aminotransferase (ALT/SGPT) 19 U/L (12-78) Alkaline Phosphatase 58 U/L (46-116) Troponin I 0.148 ng/mL (0.000-0.056) Total Protein 5.1 G/DL (6.4-8.2) L Albumin 1.2 G/DL (3.4-5.0) L Globulin 3.9 g/dL Albumin/Globulin Ratio 0.3 (1.0-2.7) L Thyroid Stimulating Hormone (TSH) 2.708 uiU/mL (0.358-3.740) Height (Feet): 5 Height (Inches): 7.00 Weight (Pounds): 160 Medications Current Medications Medications (Trade) Dose Ordered Sig/Lanny Route PRN Reason Start Time Stop Time Status Last Admin Dose Admin Acetaminophen (Tylenol) 650 mg Q6H PRN ORAL MILD/TEMP 03/05/20 08:30 04/04/20 08:29 Albuterol/ Ipratropium (Albuterol/ Ipratropium) 3 ml Q6HRT HHN 03/05/20 13:00 03/10/20 12:59 03/07/20 01:07 Ascorbic Acid (Vitamin C) 500 mg DAILY GT 03/05/20 09:00 04/04/20 08:59 03/05/20 10:45 Barium Sulfate (Readi-Cat 2) 450 ml NOW PRN ORAL Radiology Procedure 03/06/20 10:45 03/08/20 10:39 Chlorhexidine Gluconate (Kayla-Hex 2%) 1 applic DAILY@2000 TOPIC 03/05/20 21:00 06/03/20 20:59 03/06/20 20:11 Docusate Sodium (Colace) 100 mg THREE TIMES A DAY GT 03/05/20 09:00 04/04/20 08:59 03/05/20 10:44 Levetiracetam 750 mg/Sodium Chloride 117.5 ml @ 470 mls/hr Q12H IV 03/05/20 23:00 04/04/20 22:59 03/07/20 11:51 Levothyroxine Sodium (Synthroid) 50 mcg DAILY GT 03/05/20 09:00 04/04/20 08:59 03/05/20 10:45 Levothyroxine Sodium (Synthroid) 125 mcg DAILY GT 03/05/20 09:00 04/04/20 08:59 03/05/20 10:45 Lorazepam (Ativan 2mg/ml 1ml) 1 mg Q4H PRN IV For Seizures 03/07/20 06:15 03/14/20 06:14 Norepinephrine Bitartrate 16 mg/ Sodium Chloride 500 ml @ 0 mls/hr Q24H IV 03/06/20 08:30 04/05/20 08:29 03/07/20 05:28 Octreotide Acetate 500 mcg/ Sodium Chloride 500 ml @ 50 mls/hr Q10H IV 03/06/20 08:00 04/05/20 07:59 03/07/20 03:44 Pantoprazole 80 mg/Sodium Chloride 250 ml @ 25 mls/hr Q10H IV 03/05/20 12:30 04/04/20 12:29 03/07/20 09:09 Phenylephrine HCl 100 mg/Dextrose 250 ml @ 0 mls/hr Q24H IV 03/06/20 09:45 04/05/20 09:44 03/06/20 21:05 Piperacillin Sod/ Tazobactam Sod 3.375 gm/Sodium Chloride 110 ml @ 27.5 mls/hr Q12HR@0600,1800 IVPB 03/06/20 18:00 03/13/20 17:59 03/07/20 05:28 Sodium Bicarbonate 50 ml/ Dextrose/Sodium Chloride 1,050 ml @ 125 mls/hr Q8H24M IV 03/05/20 09:30 04/04/20 09:29 03/07/20 11:51 Vancomycin HCl ([facility] pharmacy to dose) 1 ea DAILY PRN MISC Per rx protocol 03/05/20 08:30 04/04/20 08:29 Assessment/Plan Problem List: (1) Respiratory failure ICD Codes: J96.90 - Respiratory failure, unspecified, unspecified whether with hypoxia or hypercapnia SNOMED: 698437266 Qualifiers: Qualified Codes: J96.01 - Acute respiratory failure with hypoxia (2) GIB (gastrointestinal bleeding) Assessment & Plan: 79-year-old male with leukocytosis, anemia, NG tube inserted and bright blood identified. Plan for urgent EGD today. Protonix IV N.p.o. IV fluid resuscitation PRBC transfusion trend labs Care plan discussed with GI will await EGD findings Thank you for let me participate in patient's care will follow with recommendations ICD Codes: K92.2 - Gastrointestinal hemorrhage, unspecified SNOMED: 43281034 (3) Aspiration pneumonia ICD Codes: J69.0 - Pneumonitis due to inhalation of food and vomit SNOMED: 849254904 Qualifiers: Qualified Codes: O74.0 - Aspiration pneumonitis due to anesthesia during labor and delivery (4) Sepsis ICD Codes: A41.9 - Sepsis, unspecified organism SNOMED: 19184839 Qualifiers: Qualified Codes: A41.9 - Sepsis, unspecified organism; R65.20 - Severe sepsis without septic shock; N17.9 - Acute kidney failure, unspecified (5) ARF (acute renal failure) ICD Codes: N17.9 - Acute kidney failure, unspecified SNOMED: 85959710, 480641233 Qualifiers: Qualified Codes: N17.9 - Acute kidney failure, unspecified (6) HCAP (healthcare-associated pneumonia) ICD Codes: J18.9 - Pneumonia, unspecified organism SNOMED: 052044453, 384261143 (7) Dehydration ICD Codes: E86.0 - Dehydration SNOMED: 88152647 (8) Hypokalemia ICD Codes: E87.6 - Hypokalemia SNOMED: 52989174 (9) Hyperkalemia ICD Codes: E87.5 - Hyperkalemia SNOMED: 45630902, 715967026 (10) Anemia ICD Codes: D64.9 - Anemia, unspecified SNOMED: 563853865, 857219260 Qualifiers: Qualified Codes: D64.9 - Anemia, unspecified (11) Decubitus skin ulcer Assessment & Plan: Pt presented on admission with contractures. Resolving full thickness pressure injury Sacrum and R buttocks. Hyperpigmentation with scarring noted with small open area that is moist and viable within injured field. darker skin tone without induration periwound. Resolving pressure injury R heel. Hyperpigmentation with small area of erythema within base of injury with loose callused and dry necrotic edges. Full thickness pressure injury R Hallux. Base of wound is dl with scattered slough. Bone is palpable. Dark, dry brown borders. Full thickness lateral and plantar R 1st metatarsal.Base of wound is 25% necrotic ,75% dl. An area of necrosis noted at nail matrix. L heel is boggy with non-blanching erythema. Tx.Plan: Apply Moisture Barrier Paste to Sacrum,R and L Buttocks. Cover with Optifoam drsgs. Change every 3 days and prn. Apply Betadine to R hallux and R 1st metatarsal. Cover with Optifoam drsg. Change every 3 days and prn. Apply Betadine to R heel. Cover R heel with Optifoam drsg. Change every 3 days and prn. Apply Cavilon Skin Barrier to L heel. Cover with Optifoam drsg. Change every 7 days and prn. Reposition at least every 2hours or as tolerated. Place pillow between knees. Off-load heels with pillow. ICD Codes: L89.90 - Pressure ulcer of unspecified site, unspecified stage SNOMED: 286587972 (12) Hypernatremia ICD Codes: E87.0 - Hyperosmolality and hypernatremia SNOMED: 367017340 (13) Renal insufficiency ICD Codes: N28.9 - Disorder of kidney and ureter, unspecified SNOMED: 542558680, 523420271 (14) Respiratory insufficiency ICD Codes: R06.89 - Other abnormalities of breathing SNOMED: 041342937 (15) Malnutrition ICD Codes: E46 - Unspecified protein-calorie malnutrition SNOMED: 56125956 (16) UTI (urinary tract infection) ICD Codes: N39.0 - Urinary tract infection, site not specified SNOMED: 83518419, 147434648 (17) Metabolic acidosis ICD Codes: E87.2 - Acidosis SNOMED: 32054353 (18) Pneumonia ICD Codes: J18.9 - Pneumonia, unspecified organism SNOMED: 760768697 (19) Tracheal stenosis ICD Codes: J39.8 - Other specified diseases of upper respiratory tract SNOMED: 57390913 (20) CKD (chronic kidney disease) stage 3, GFR 30-59 ml/min ICD Codes: N18.3 - Chronic kidney disease, stage 3 (moderate) SNOMED: 649322635 (21) Elevated LFTs ICD Codes: R94.5 - Abnormal results of liver function studies SNOMED: 972037799, 989008826 (22) Protein-calorie malnutrition, severe ICD Codes: E43 - Unspecified severe protein-calorie malnutrition SNOMED: 951750685, 153305651, 002003725 (23) AUDREY (acute kidney injury) ICD Codes: N17.9 - Acute kidney failure, unspecified SNOMED: 2184111, 26219046 (24) Suspected COVID-19 virus infection ICD Codes: R68.89 - Other general symptoms and signs SNOMED: 820927101 Rehan Geronimo Mar 07, 2020 12:54
--- NOTE | 2020-03-07 13:17 | Nephrology Progress Note ---
Assessment/Plan Plan Acute Oliguric ARF Metabolic Acidosis MOF VDRF Seizure DO Urosepsis Anemia, mostly of CKD - JJ Subjective Subjective Obtunded. Objective Objective Last 24 Hour Vital Signs Date Time Temp Pulse Resp B/P (MAP) Pulse Ox O2 Delivery O2 Flow Rate FiO2 03/07/20 12:12 78 03/07/20 12:00 Mechanical Ventilator 03/07/20 12:00 127/74 03/07/20 12:00 40 03/07/20 12:00 81 29 127/74 (91) 100 03/07/20 11:30 91 18 130/79 (96) 100 03/07/20 11:15 91 31 119/76 (90) 100 03/07/20 11:14 81 29 40 03/07/20 11:00 84 29 125/68 (87) 100 03/07/20 11:00 125/68 03/07/20 10:45 87 27 128/73 (91) 100 03/07/20 10:30 80 30 125/72 (89) 100 03/07/20 10:15 83 29 124/73 (90) 100 03/07/20 10:00 92 29 126/75 (92) 100 03/07/20 10:00 126/75 03/07/20 09:45 79 27 119/69 (86) 100 03/07/20 09:30 83 28 115/72 (86) 100 03/07/20 09:15 82 27 114/70 (85) 100 03/07/20 09:00 112/73 03/07/20 09:00 80 29 112/73 (86) 100 03/07/20 08:45 88 30 114/72 (86) 100 03/07/20 08:30 88 29 117/70 (86) 100 03/07/20 08:15 80 27 113/67 (82) 100 03/07/20 08:00 Mechanical Ventilator 03/07/20 08:00 97.1 84 28 112/69 (83) 100 03/07/20 08:00 40 03/07/20 08:00 112/69 03/07/20 07:55 85 03/07/20 07:45 90 30 107/70 (82) 100 03/07/20 07:30 92 4 135/66 (89) 100 03/07/20 07:17 103 30 40 03/07/20 07:15 83 27 108/70 (83) 100 03/07/20 07:00 92 32 134/71 (92) 100 03/07/20 07:00 134/71 03/07/20 06:45 85 30 121/69 (86) 100 03/07/20 06:45 121/69 03/07/20 06:30 86 30 114/73 (87) 100 03/07/20 06:15 88 30 115/72 (86) 100 03/07/20 06:00 86 28 116/69 (85) 100 03/07/20 06:00 116/69 03/07/20 05:45 86 31 111/71 (84) 100 03/07/20 05:30 86 30 117/69 (85) 100 03/07/20 05:28 127/77 03/07/20 05:15 86 27 127/73 (91) 100 03/07/20 05:00 99/71 03/07/20 05:00 87 29 99/71 (80) 100 03/07/20 04:45 95 32 132/83 (99) 100 03/07/20 04:30 89 30 117/73 (88) 100 03/07/20 04:15 90 28 120/73 (89) 100 03/07/20 04:00 Mechanical Ventilator 03/07/20 04:00 97.8 89 29 107/70 (82) 100 03/07/20 04:00 40 03/07/20 04:00 107/70 03/07/20 04:00 86 03/07/20 03:45 87 28 106/67 (80) 100 03/07/20 03:30 90 28 111/71 (84) 100 03/07/20 03:15 89 31 108/70 (83) 100 03/07/20 03:00 90 28 109/70 (83) 100 03/07/20 03:00 109/70 03/07/20 02:45 98 30 110/73 (85) 100 03/07/20 02:42 103 34 40 03/07/20 02:30 118/75 03/07/20 02:30 100 39 118/75 (89) 100 03/07/20 02:15 92 28 110/69 (83) 100 03/07/20 02:00 114/75 03/07/20 02:00 97 31 114/75 (88) 100 03/07/20 01:45 92 29 111/67 (82) 100 03/07/20 01:30 117/73 03/07/20 01:30 96 29 117/73 (88) 100 03/07/20 01:15 102 31 118/74 (89) 100 03/07/20 01:07 99 32 100 Mechanical Ventilator 40 103 30 40 03/07/20 01:00 89 30 118/71 (87) 100 03/07/20 01:00 118/71 03/07/20 00:45 92 31 116/74 (88) 100 03/07/20 00:30 91 30 118/76 (90) 100 03/07/20 00:30 118/76 03/07/20 00:15 95 31 127/74 (91) 100 03/07/20 00:00 131/80 03/07/20 00:00 Mechanical Ventilator 03/07/20 00:00 40 03/07/20 00:00 98.2 99 30 131/80 (97) 100 03/07/20 00:00 92 03/06/20 23:45 87 28 117/76 (90) 100 03/06/20 23:30 91 27 108/72 (84) 100 03/06/20 23:15 89 29 108/70 (83) 100 03/06/20 23:00 115/70 03/06/20 23:00 91 29 115/70 (85) 100 03/06/20 22:45 97 28 119/67 (84) 100 03/06/20 22:32 98 31 40 03/06/20 22:30 103 30 122/74 (90) 100 03/06/20 22:15 92 29 114/71 (85) 100 03/06/20 22:00 96 30 119/74 (89) 100 03/06/20 22:00 119/74 03/06/20 21:45 98 30 123/76 (92) 100 03/06/20 21:30 94 29 123/78 (93) 100 03/06/20 21:15 98 42 117/73 (88) 100 03/06/20 21:05 100 116/70 03/06/20 21:00 116/70 03/06/20 21:00 102 40 116/70 (85) 100 03/06/20 20:45 99 34 97/67 (77) 100 03/06/20 20:30 99 32 122/78 (93) 100 03/06/20 20:15 100 33 127/77 (94) 100 03/06/20 20:00 40 03/06/20 20:00 97.8 100 32 138/83 (101) 100 03/06/20 20:00 97 03/06/20 20:00 138/83 03/06/20 20:00 Mechanical Ventilator 03/06/20 19:45 102 34 131/80 (97) 100 03/06/20 19:30 94 28 141/88 (105) 100 03/06/20 19:22 122/79 03/06/20 19:22 108 27 100 Mechanical Ventilator 40 98 28 40 03/06/20 19:15 96 17 122/79 (93) 100 03/06/20 19:00 103 33 118/76 (90) 100 03/06/20 19:00 118/76 03/06/20 18:45 93/63 03/06/20 18:45 95 30 93/63 (73) 100 03/06/20 18:30 97 27 119/78 (92) 100 03/06/20 18:30 119/78 03/06/20 18:15 123/73 03/06/20 18:15 99 28 123/73 (90) 100 03/06/20 18:00 116/72 03/06/20 18:00 103 30 116/72 (87) 100 03/06/20 17:51 100 31 138/86 (103) 100 03/06/20 17:45 18 227/196 (206) 99 03/06/20 17:30 105 33 104/69 (81) 100 03/06/20 17:15 111 42 143/118 (126) 100 03/06/20 17:00 135/80 03/06/20 17:00 100 30 135/80 (98) 100 03/06/20 16:45 101 34 40 03/06/20 16:30 98.5 104 31 153/90 (111) 100 03/06/20 16:15 101 26 134/75 (94) 100 03/06/20 16:05 105 03/06/20 16:00 40 03/06/20 16:00 142/73 03/06/20 16:00 98.5 102 28 142/73 (96) 100 03/06/20 16:00 Mechanical Ventilator 03/06/20 15:45 113 29 112/72 (85) 100 03/06/20 15:30 111 29 117/71 (86) 100 03/06/20 15:15 111 32 121/68 (85) 100 03/06/20 15:04 105 26 40 03/06/20 15:00 104 26 136/80 (98) 100 03/06/20 15:00 136/80 03/06/20 14:45 98.6 109 7 138/80 (99) 100 03/06/20 14:30 98.5 103 26 118/79 (92) 100 03/06/20 14:15 102 26 134/79 (97) 100 03/06/20 14:00 99 26 111/74 (86) 100 03/06/20 14:00 111/74 03/06/20 13:45 111 24 110/75 (87) 100 03/06/20 13:27 105 33 100 Mechanical Ventilator 40 104 33 40 03/06/20 13:15 107 30 116/71 (86) 100 Intake and Output 03/06/20 03/07/20 19:00 07:00 Intake Total 4085.213 ml 3153.71 ml Output Total 385 ml 860 ml Balance 3700.213 ml 2293.71 ml IV Total 3835.213 ml 2903.71 ml Blood Product 250 ml 250 ml Output Urine Total 85 ml 360 ml Stool Total 200 ml Gastric Drainage Total 100 ml 500 ml # Bowel Movements 10 Laboratory Tests 03/06/20 15:38: Arterial Blood pH 7.276L, Arterial Blood Partial Pressure CO2 32.3L, Arterial Blood Partial Pressure O2 136.2H, Arterial Blood HCO3 14.7*L, Arterial Blood Oxygen Saturation 98.2, Arterial Blood Base Excess -11.1*L, [place] Test Positive 03/06/20 19:15: White Blood Count 28.5*H, Red Blood Count 2.08L, Hemoglobin 6.8*L, Hematocrit 19.9L, Mean Corpuscular Volume 96, Mean Corpuscular Hemoglobin 32.8H, Mean Corpuscular Hemoglobin Concent 34.3, Red Cell Distribution Width 15.1H, Platelet Count 237, Mean Platelet Volume 5.6L, Neutrophils (%) (Auto) , Lymphocytes (%) (Auto) , Monocytes (%) (Auto) , Eosinophils (%) (Auto) , Basophils (%) (Auto) , Differential Total Cells Counted 100, Neutrophils % ( Manual) 90H, Lymphocytes % (Manual) 4L, Monocytes % (Manual) 5, Eosinophils % ( Manual) 1, Basophils % (Manual) 0, Band Neutrophils 0, Platelet Estimate Adequate, Platelet Morphology Normal, Hypochromasia 3+, Anisocytosis 1+ 03/07/20 04:05: White Blood Count 16.6H, Red Blood Count 2.14L, Hemoglobin 6.5*L, Hematocrit 19.5L, Mean Corpuscular Volume 91, Mean Corpuscular Hemoglobin 30.6, Mean Corpuscular Hemoglobin Concent 33.6, Red Cell Distribution Width 14.5, Platelet Count 155, Mean Platelet Volume 5.1L, Neutrophils (%) (Auto) , Lymphocytes (%) ( Auto) , Monocytes (%) (Auto) , Eosinophils (%) (Auto) , Basophils (%) (Auto) , Differential Total Cells Counted 100, Neutrophils % (Manual) 90H, Lymphocytes % (Manual) 6L, Monocytes % (Manual) 4, Eosinophils % (Manual) 0, Basophils % ( Manual) 0, Band Neutrophils 0, Platelet Estimate Adequate, Platelet Morphology Normal, Hypochromasia 1+, Anisocytosis 1+, Sodium Level 138#, Potassium Level 4.0, Chloride Level 108H, Carbon Dioxide Level 18L, Anion Gap 12, Blood Urea Nitrogen 130H, Creatinine 3.6H, Estimat Glomerular Filtration Rate 16.5, Glucose Level 196H, Calcium Level 8.0L, Phosphorus Level 3.8, Magnesium Level 1.9, Total Bilirubin 0.3, Aspartate Amino Transf (AST/SGOT) 16, Alanine Aminotransferase (ALT/SGPT) 19, Alkaline Phosphatase 58, Troponin I 0.148H, Total Protein 5.1L, Albumin 1.2L, Globulin 3.9, Albumin/Globulin Ratio 0.3L, Thyroid Stimulating Hormone (TSH) 2.708 Height (Feet): 5 Height (Inches): 7.00 Weight (Pounds): 160 Objective On vent. Trach site miroslava. CV Tach. Lungs B ronchi. Abd distended. SNT. BS diminished. E contractures. +2 B edema. Neuro obtunded. Nonfocal. Ayanna Maldonado MD Mar 07, 2020 13:17
--- NOTE | 2020-03-07 14:27 | Diagnostic Imaging Report ---
Indication: Abdominal pain and GI bleeding Technique: Supine view of the abdomen Comparison: none Findings: There is a gastrostomy, relation to the stomach and terminating in the absence of contrast demonstration. The small bowel is gas filled, upper limits normal in caliber. There is a left groin central venous catheter. The colon is gas filled and mildly dilated. Impression: Colonic distention, etiology not demonstrated. Could be functional or could be on the basis of downstream obstruction Gastrostomy tube Left groin central venous catheter
[2020-03-07] MEDS ORDERED: D5W 275ml ONE ×2 (15:59→17:55)
[2020-03-07] MEDS ORDERED: NS 275ml ONE ×2 (15:59→17:55)
[2020-03-07] MEDS ORDERED: Tubing IV Secondary IV ONE ×3 (15:59→17:55)
[2020-03-07] MEDS ORDERED: Sodium Bicarbonate 50ml Carp IVP ONE (21:00)
[2020-03-07 21:21] LABS: BASOPHILS % (AUTO) 0.5 % (0.0-2.0); EOSINOPHILS % (AUTO) 0.2 % (0.0-3.0); HEMATOCRIT 24.6 % (42.0-52.0); HEMOGLOBIN 8.4 G/DL (14.2-18.0); MEAN CORPUSCULAR VOLUME 94 FL (80-99); MONOCYTES % (AUTO) 6.6 % (1.0-10.0); NEUTROPHILS % (AUTO) 83.7 % (45.0-75.0); PLATELET COUNT 123 K/UL (150-450); RED BLOOD COUNT 2.61 M/UL (4.70-6.10); RED CELL DISTRIBUTION WIDTH 14.3 % (11.6-14.8); WHITE BLOOD COUNT 14.7 K/UL (4.8-10.8)
[2020-03-07] MEDS: Dyna-Hex 2% Top Sol 2oz TOPIC SCH (21:41)
--- NOTE | 2020-03-07 23:07 | Cardiology Progress Note ---
Subjective DATE OF SERVICE: Mar 07, 2020 Remains in critical condition with guarded prognosis Has trach with mod secretions - on vent support Monitor: Sinus tachycardia Remains hypotensive, and on pressor support Objective Last 24 Hour Vital Signs Date Time Temp Pulse Resp B/P (MAP) Pulse Ox O2 Delivery O2 Flow Rate FiO2 03/07/20 22:54 150/91 03/07/20 20:00 40 03/07/20 19:30 78 24 151/85 (107) 100 03/07/20 19:17 76 29 100 Mechanical Ventilator 40 83 32 40 03/07/20 19:15 76 26 148/89 (108) 100 03/07/20 19:00 81 28 150/90 (110) 100 03/07/20 19:00 150/90 03/07/20 18:29 90 21 142/76 (98) 100 03/07/20 18:00 87 21 147/86 (106) 100 03/07/20 18:00 147/86 03/07/20 17:30 97 14 152/88 (109) 100 03/07/20 17:00 84 28 133/78 (96) 100 03/07/20 17:00 133/78 03/07/20 16:30 91 28 130/75 (93) 100 03/07/20 16:15 97.6 89 29 130/79 (96) 100 03/07/20 16:00 40 03/07/20 16:00 Mechanical Ventilator 03/07/20 16:00 133/76 03/07/20 16:00 97.6 85 32 133/76 (95) 100 03/07/20 15:45 81 28 115/70 (85) 100 03/07/20 15:43 82 03/07/20 15:30 97 19 117/71 (86) 100 03/07/20 15:14 107 33 40 03/07/20 15:00 120/71 03/07/20 15:00 87 23 120/71 (87) 100 03/07/20 14:00 117/71 03/07/20 14:00 93 27 117/71 (86) 100 03/07/20 13:22 98 30 100 Mechanical Ventilator 40 106 32 40 03/07/20 13:00 76 26 124/76 (92) 100 03/07/20 13:00 124/76 9/8/20 12:12 78 03/07/20 12:00 Mechanical Ventilator 03/07/20 12:00 127/74 03/07/20 12:00 40 03/07/20 12:00 81 29 127/74 (91) 100 03/07/20 11:30 91 18 130/79 (96) 100 03/07/20 11:15 91 31 119/76 (90) 100 03/07/20 11:14 81 29 40 03/07/20 11:00 84 29 125/68 (87) 100 03/07/20 11:00 125/68 03/07/20 10:45 87 27 128/73 (91) 100 03/07/20 10:30 80 30 125/72 (89) 100 03/07/20 10:15 83 29 124/73 (90) 100 03/07/20 10:00 92 29 126/75 (92) 100 03/07/20 10:00 126/75 03/07/20 09:45 79 27 119/69 (86) 100 03/07/20 09:30 83 28 115/72 (86) 100 03/07/20 09:15 82 27 114/70 (85) 100 03/07/20 09:00 112/73 03/07/20 09:00 80 29 112/73 (86) 100 03/07/20 08:45 88 30 114/72 (86) 100 03/07/20 08:30 88 29 117/70 (86) 100 03/07/20 08:15 80 27 113/67 (82) 100 03/07/20 08:00 Mechanical Ventilator 03/07/20 08:00 97.1 84 28 112/69 (83) 100 03/07/20 08:00 40 03/07/20 08:00 112/69 03/07/20 07:55 85 03/07/20 07:45 90 30 107/70 (82) 100 03/07/20 07:30 92 4 135/66 (89) 100 03/07/20 07:17 103 30 40 03/07/20 07:15 83 27 108/70 (83) 100 03/07/20 07:00 92 32 134/71 (92) 100 03/07/20 07:00 134/71 03/07/20 06:45 85 30 121/69 (86) 100 03/07/20 06:45 121/69 03/07/20 06:30 86 30 114/73 (87) 100 03/07/20 06:15 88 30 115/72 (86) 100 03/07/20 06:00 86 28 116/69 (85) 100 03/07/20 06:00 116/69 03/07/20 05:45 86 31 111/71 (84) 100 03/07/20 05:30 86 30 117/69 (85) 100 03/07/20 05:28 127/77 03/07/20 05:15 86 27 127/73 (91) 100 03/07/20 05:00 99/71 03/07/20 05:00 87 29 99/71 (80) 100 03/07/20 04:45 95 32 132/83 (99) 100 03/07/20 04:30 89 30 117/73 (88) 100 03/07/20 04:15 90 28 120/73 (89) 100 03/07/20 04:00 Mechanical Ventilator 03/07/20 04:00 97.8 89 29 107/70 (82) 100 03/07/20 04:00 40 03/07/20 04:00 107/70 03/07/20 04:00 86 03/07/20 03:45 87 28 106/67 (80) 100 03/07/20 03:30 90 28 111/71 (84) 100 03/07/20 03:15 89 31 108/70 (83) 100 03/07/20 03:00 90 28 109/70 (83) 100 03/07/20 03:00 109/70 03/07/20 02:45 98 30 110/73 (85) 100 03/07/20 02:42 103 34 40 03/07/20 02:30 118/75 03/07/20 02:30 100 39 118/75 (89) 100 03/07/20 02:15 92 28 110/69 (83) 100 03/07/20 02:00 114/75 03/07/20 02:00 97 31 114/75 (88) 100 03/07/20 01:45 92 29 111/67 (82) 100 03/07/20 01:30 117/73 03/07/20 01:30 96 29 117/73 (88) 100 03/07/20 01:15 102 31 118/74 (89) 100 03/07/20 01:07 99 32 100 Mechanical Ventilator 40 103 30 40 03/07/20 01:00 89 30 118/71 (87) 100 03/07/20 01:00 118/71 03/07/20 00:45 92 31 116/74 (88) 100 03/07/20 00:30 91 30 118/76 (90) 100 03/07/20 00:30 118/76 03/07/20 00:15 95 31 127/74 (91) 100 03/07/20 00:00 131/80 03/07/20 00:00 Mechanical Ventilator 03/07/20 00:00 40 03/07/20 00:00 98.2 99 30 131/80 (97) 100 03/07/20 00:00 92 03/06/20 23:45 87 28 117/76 (90) 100 03/06/20 23:30 91 27 108/72 (84) 100 03/06/20 23:15 89 29 108/70 (83) 100 ROS: unchanged from my dictation of 03/05/20 HEENT: Mechanically Ventilated, Thick Trach secretions RHYTHM: ST CARDIAC: regular rhythm, normal S1 and S2, tachycardia ABDOMEN: normal bowel sounds, non tender, soft, no organomegaly, decreased bowel sounds, slightly distended, G-Tube intact EXTREMITIES: no calf tenderness, pitting edema - dependent Laboratory Tests Test 03/07/20 04:05 03/07/20 20:50 White Blood Count 16.6 K/UL (4.8-10.8) H 14.7 K/UL (4.8-10.8) H Red Blood Count 2.14 M/UL (4.70-6.10) L 2.61 M/UL (4.70-6.10) L Hemoglobin 6.5 G/DL (14.2-18.0) *L 8.4 G/DL (14.2-18.0) L Hematocrit 19.5 % (42.0-52.0) L 24.6 % (42.0-52.0) L Mean Corpuscular Volume 91 FL (80-99) 94 FL (80-99) Mean Corpuscular Hemoglobin 30.6 PG (27.0-31.0) 32.3 PG (27.0-31.0) H Mean Corpuscular Hemoglobin Concent 33.6 G/DL (32.0-36.0) 34.4 G/DL (32.0-36.0) Red Cell Distribution Width 14.5 % (11.6-14.8) 14.3 % (11.6-14.8) Platelet Count 155 K/UL (150-450) 123 K/UL (150-450) L Mean Platelet Volume 5.1 FL (6.5-10.1) L 5.8 FL (6.5-10.1) L Neutrophils (%) (Auto) % (45.0-75.0) 83.7 % (45.0-75.0) H Lymphocytes (%) (Auto) % (20.0-45.0) 9.0 % (20.0-45.0) L Monocytes (%) (Auto) % (1.0-10.0) 6.6 % (1.0-10.0) Eosinophils (%) (Auto) % (0.0-3.0) 0.2 % (0.0-3.0) Basophils (%) (Auto) % (0.0-2.0) 0.5 % (0.0-2.0) Differential Total Cells Counted 100 Neutrophils % (Manual) 90 % (45-75) H Lymphocytes % (Manual) 6 % (20-45) L Monocytes % (Manual) 4 % (1-10) Eosinophils % (Manual) 0 % (0-3) Basophils % (Manual) 0 % (0-2) Band Neutrophils 0 % (0-8) Platelet Estimate Adequate Platelet Morphology Normal Hypochromasia 1+ Anisocytosis 1+ Sodium Level 138 MMOL/L (136-145) # Potassium Level 4.0 MMOL/L (3.5-5.1) Chloride Level 108 MMOL/L (98-107) H Carbon Dioxide Level 18 MMOL/L (21-32) L Anion Gap 12 mmol/L (5-15) Blood Urea Nitrogen 130 mg/dL (7-18) H Creatinine 3.6 MG/DL (0.55-1.30) H Estimat Glomerular Filtration Rate 16.5 mL/min (>60) Glucose Level 196 MG/DL (74-106) H Calcium Level 8.0 MG/DL (8.5-10.1) L Phosphorus Level 3.8 MG/DL (2.5-4.9) Magnesium Level 1.9 MG/DL (1.8-2.4) Total Bilirubin 0.3 MG/DL (0.2-1.0) Aspartate Amino Transf (AST/SGOT) 16 U/L (15-37) Alanine Aminotransferase (ALT/SGPT) 19 U/L (12-78) Alkaline Phosphatase 58 U/L (46-116) Troponin I 0.148 ng/mL (0.000-0.056) Total Protein 5.1 G/DL (6.4-8.2) L Albumin 1.2 G/DL (3.4-5.0) L Globulin 3.9 g/dL Albumin/Globulin Ratio 0.3 (1.0-2.7) L Thyroid Stimulating Hormone (TSH) 2.708 uiU/mL (0.358-3.740) Microbiology Date/Time Source Procedure Growth Status 03/05/20 06:15 Blood Blood Culture - Preliminary Gram Positive Cocci Resulted 03/05/20 06:00 Blood Blood Culture - Preliminary Gram Positive Cocci Resulted 03/05/20 10:35 Sputum Expectorated Gram Stain - Final Resulted 03/05/20 10:35 Sputum Expectorated Sputum Culture Pending Resulted 03/05/20 09:39 Nasal Nares MRSA Culture - Final NO METHICILLIN RESISTANT STAPH AUREUS... Complete 03/05/20 06:00 Nasopharynx SARS-CoV-2 RdRp Gene Assay - Final Complete 03/05/20 09:39 Rectum Received 03/05/20 09:30 Rectum VRE Culture - Final Enterococcus Faecalis - Vre Complete Assessment/Plan Assessment/Plan Respiratory Failure Sepsis with shock Asp'n PNA Sinus tachycardia Lactic acidosis CVS with dementia Anemia GI bleeding PAFib Dysphagia with GTube Pressor support Abx IVF Vent support/resp hygiene Transfuse for hb below 7gm/dl PPI cardiac monitoring Franko Pineda MD Mar 07, 2020 23:07
--- NOTE | 2020-03-07 23:13 | General Progress Note ---
Assessment/Plan Status: stable, unchanged Assessment/Plan: Assessment - UGI Bleed - resp failure / trach - dysphagia / PEG - multiple contractures - OBS - Anemia - Azotemia - Acidosis Recommendations - transfuse to keep Hg> 7 - NPO - PPI - follow labs - EGD In am Subjective Allergies: Coded Allergies: No Known Allergies (Unverified , 02/23/12) Subjective Seen earlier today significant GT bloody output patient NPO getting transfused today Still on pressors, but at lower rates WBC count lower as well d/w DPOA - wants all measures pursued Agreed to EGD Objective Last 24 Hour Vital Signs Date Time Temp Pulse Resp B/P (MAP) Pulse Ox O2 Delivery O2 Flow Rate FiO2 03/07/20 22:54 150/91 03/07/20 20:00 40 03/07/20 19:30 78 24 151/85 (107) 100 03/07/20 19:17 76 29 100 Mechanical Ventilator 40 83 32 40 03/07/20 19:15 76 26 148/89 (108) 100 03/07/20 19:00 81 28 150/90 (110) 100 03/07/20 19:00 150/90 03/07/20 18:29 90 21 142/76 (98) 100 03/07/20 18:00 87 21 147/86 (106) 100 03/07/20 18:00 147/86 03/07/20 17:30 97 14 152/88 (109) 100 03/07/20 17:00 84 28 133/78 (96) 100 03/07/20 17:00 133/78 03/07/20 16:30 91 28 130/75 (93) 100 03/07/20 16:15 97.6 89 29 130/79 (96) 100 03/07/20 16:00 40 03/07/20 16:00 Mechanical Ventilator 03/07/20 16:00 133/76 03/07/20 16:00 97.6 85 32 133/76 (95) 100 03/07/20 15:45 81 28 115/70 (85) 100 03/07/20 15:43 82 03/07/20 15:30 97 19 117/71 (86) 100 03/07/20 15:14 107 33 40 03/07/20 15:00 120/71 03/07/20 15:00 87 23 120/71 (87) 100 03/07/20 14:00 117/71 03/07/20 14:00 93 27 117/71 (86) 100 03/07/20 13:22 98 30 100 Mechanical Ventilator 40 106 32 40 03/07/20 13:00 76 26 124/76 (92) 100 03/07/20 13:00 124/76 03/07/20 12:12 78 03/07/20 12:00 Mechanical Ventilator 03/07/20 12:00 127/74 03/07/20 12:00 40 03/07/20 12:00 81 29 127/74 (91) 100 03/07/20 11:30 91 18 130/79 (96) 100 03/07/20 11:15 91 31 119/76 (90) 100 03/07/20 11:14 81 29 40 03/07/20 11:00 84 29 125/68 (87) 100 03/07/20 11:00 125/68 03/07/20 10:45 87 27 128/73 (91) 100 03/07/20 10:30 80 30 125/72 (89) 100 03/07/20 10:15 83 29 124/73 (90) 100 03/07/20 10:00 92 29 126/75 (92) 100 03/07/20 10:00 126/75 03/07/20 09:45 79 27 119/69 (86) 100 03/07/20 09:30 83 28 115/72 (86) 100 03/07/20 09:15 82 27 114/70 (85) 100 03/07/20 09:00 112/73 03/07/20 09:00 80 29 112/73 (86) 100 03/07/20 08:45 88 30 114/72 (86) 100 03/07/20 08:30 88 29 117/70 (86) 100 03/07/20 08:15 80 27 113/67 (82) 100 03/07/20 08:00 Mechanical Ventilator 03/07/20 08:00 97.1 84 28 112/69 (83) 100 03/07/20 08:00 40 03/07/20 08:00 112/69 03/07/20 07:55 85 03/07/20 07:45 90 30 107/70 (82) 100 03/07/20 07:30 92 4 135/66 (89) 100 03/07/20 07:17 103 30 40 03/07/20 07:15 83 27 108/70 (83) 100 03/07/20 07:00 92 32 134/71 (92) 100 03/07/20 07:00 134/71 03/07/20 06:45 85 30 121/69 (86) 100 03/07/20 06:45 121/69 03/07/20 06:30 86 30 114/73 (87) 100 03/07/20 06:15 88 30 115/72 (86) 100 03/07/20 06:00 86 28 116/69 (85) 100 03/07/20 06:00 116/69 03/07/20 05:45 86 31 111/71 (84) 100 03/07/20 05:30 86 30 117/69 (85) 100 03/07/20 05:28 127/77 03/07/20 05:15 86 27 127/73 (91) 100 03/07/20 05:00 99/71 03/07/20 05:00 87 29 99/71 (80) 100 03/07/20 04:45 95 32 132/83 (99) 100 03/07/20 04:30 89 30 117/73 (88) 100 03/07/20 04:15 90 28 120/73 (89) 100 03/07/20 04:00 Mechanical Ventilator 03/07/20 04:00 97.8 89 29 107/70 (82) 100 03/07/20 04:00 40 03/07/20 04:00 107/70 03/07/20 04:00 86 03/07/20 03:45 87 28 106/67 (80) 100 03/07/20 03:30 90 28 111/71 (84) 100 03/07/20 03:15 89 31 108/70 (83) 100 03/07/20 03:00 90 28 109/70 (83) 100 03/07/20 03:00 109/70 03/07/20 02:45 98 30 110/73 (85) 100 03/07/20 02:42 103 34 40 03/07/20 02:30 118/75 03/07/20 02:30 100 39 118/75 (89) 100 03/07/20 02:15 92 28 110/69 (83) 100 03/07/20 02:00 114/75 03/07/20 02:00 97 31 114/75 (88) 100 03/07/20 01:45 92 29 111/67 (82) 100 03/07/20 01:30 117/73 03/07/20 01:30 96 29 117/73 (88) 100 03/07/20 01:15 102 31 118/74 (89) 100 03/07/20 01:07 99 32 100 Mechanical Ventilator 40 103 30 40 03/07/20 01:00 89 30 118/71 (87) 100 03/07/20 01:00 118/71 03/07/20 00:45 92 31 116/74 (88) 100 03/07/20 00:30 91 30 118/76 (90) 100 03/07/20 00:30 118/76 03/07/20 00:15 95 31 127/74 (91) 100 03/07/20 00:00 131/80 03/07/20 00:00 Mechanical Ventilator 03/07/20 00:00 40 03/07/20 00:00 98.2 99 30 131/80 (97) 100 03/07/20 00:00 92 03/06/20 23:45 87 28 117/76 (90) 100 03/06/20 23:30 91 27 108/72 (84) 100 03/06/20 23:15 89 29 108/70 (83) 100 Intake and Output 03/06/20 03/07/20 19:00 07:00 Intake Total 4085.213 ml 3153.71 ml Output Total 385 ml 860 ml Balance 3700.213 ml 2293.71 ml IV Total 3835.213 ml 2903.71 ml Blood Product 250 ml 250 ml Output Urine Total 85 ml 360 ml Stool Total 200 ml Gastric Drainage Total 100 ml 500 ml # Bowel Movements 10 Laboratory Tests 03/07/20 04:05: White Blood Count 16.6H, Red Blood Count 2.14L, Hemoglobin 6.5*L, Hematocrit 19.5L, Mean Corpuscular Volume 91, Mean Corpuscular Hemoglobin 30.6, Mean Corpuscular Hemoglobin Concent 33.6, Red Cell Distribution Width 14.5, Platelet Count 155, Mean Platelet Volume 5.1L, Neutrophils (%) (Auto) , Lymphocytes (%) ( Auto) , Monocytes (%) (Auto) , Eosinophils (%) (Auto) , Basophils (%) (Auto) , Differential Total Cells Counted 100, Neutrophils % (Manual) 90H, Lymphocytes % (Manual) 6L, Monocytes % (Manual) 4, Eosinophils % (Manual) 0, Basophils % ( Manual) 0, Band Neutrophils 0, Platelet Estimate Adequate, Platelet Morphology Normal, Hypochromasia 1+, Anisocytosis 1+, Sodium Level 138#, Potassium Level 4.0, Chloride Level 108H, Carbon Dioxide Level 18L, Anion Gap 12, Blood Urea Nitrogen 130H, Creatinine 3.6H, Estimat Glomerular Filtration Rate 16.5, Glucose Level 196H, Calcium Level 8.0L, Phosphorus Level 3.8, Magnesium Level 1.9, Total Bilirubin 0.3, Aspartate Amino Transf (AST/SGOT) 16, Alanine Aminotransferase (ALT/SGPT) 19, Alkaline Phosphatase 58, Troponin I 0.148H, Total Protein 5.1L, Albumin 1.2L, Globulin 3.9, Albumin/Globulin Ratio 0.3L, Thyroid Stimulating Hormone (TSH) 2.708 03/07/20 20:50: White Blood Count 14.7H, Red Blood Count 2.61L, Hemoglobin 8.4L, Hematocrit 24.6L, Mean Corpuscular Volume 94, Mean Corpuscular Hemoglobin 32.3H, Mean Corpuscular Hemoglobin Concent 34.4, Red Cell Distribution Width 14.3, Platelet Count 123L, Mean Platelet Volume 5.8L, Neutrophils (%) (Auto) 83.7H, Lymphocytes (%) (Auto) 9.0L, Monocytes (%) (Auto) 6.6, Eosinophils (%) (Auto) 0.2, Basophils (%) (Auto) 0.5 Height (Feet): 5 Height (Inches): 7.00 Weight (Pounds): 160 Objective Debilitated unresponsive man NCAT (+) trach coarse BS RR abd flat , (+) GT --> bloody drain (GT changed at bedside by ) (+) contractures (+) skin breakdown Clive Kuo MD Mar 07, 2020 23:13
[2020-03-08] VITALS (118 sets, daily range): BP systolic 109–169; BP diastolic 71–96
[2020-03-08] MEDS: Octreotide Acetate 500 MCG in Sodium Chloride 499 ML IV SCH ×3 (00:29→20:30)
[2020-03-08] MEDS: Albuterol/Ipratropium 3ml neb HHN SCH ×4 (00:59→20:24)
--- NOTE | 2020-03-08 01:14 | Consultation ---
DATE OF CONSULTATION: 03/05/2020 CARDIOLOGY CONSULTATION CONSULTING PHYSICIAN: Franko Pineda MD. REFERRING PHYSICIAN: Jimi Tellez MD. REASON FOR CONSULTATION: Shock. 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 He resides at a subacute nursing facility. He has been noted to be hypoxic and increasingly congested with shortness of breath. He also had emesis and apparently had a witnessed episode of aspiration. The patient was transferred to the emergency room. On arrival, the patient was in respiratory distress and hypoxic. He was maintained on ventilator support with aggressive suctioning performed. Laboratory values were noted and his condition was felt to be critical with guarded prognosis prompting admission to the intensive care unit. I have been asked to assist with cardiovascular care. PAST MEDICAL HISTORY: Includes cerebrovascular disease, history of cerebrovascular accident, dementia, dysphagia, gastrostomy tube, respiratory failure with tracheostomy, history of hypertension, type 2 diabetes mellitus, seizure disorder, paroxysmal atrial fibrillation, diastolic dysfunction with history of congestive heart failure. ALLERGIES: None. MEDICATIONS: Reviewed. FAMILY HISTORY: Not known. SOCIAL HISTORY: No record of smoking, alcohol, or substance abuse. REVIEW OF SYSTEMS: Not obtainable from the patient due to baseline dementia. Pertinent data from review of medical records and prior hospital charts as outlined above. PHYSICAL EXAMINATION: VITAL SIGNS: Afebrile, blood pressure 89/64, heart rate 118, respirations 40. GENERAL: Ill-appearing. HEENT: Ventilated via trach site. Thick secretions. Temporal wasting. Dry mucous membranes. LUNGS: Bilateral rhonchi. CARDIAC: Regular rhythm. Rapid rate. Normal S1, S2. ABDOMEN: Soft. G-tube intact. Distended, but soft. EXTREMITIES: With contractures and no edema. Wound sites are pictured in the chart. Central access site in the left femoral groin is noted with no bleeding. LABORATORY AND DIAGNOSTIC DATA: Chest x-ray reveals right greater than left infiltrate. EKG with sinus tachycardia and nonspecific ST-T change. Troponin is 0. Sodium 131, potassium 6.8, bicarb 14, BUN 172, creatinine 4.3. White count 54, hemoglobin 9.3. Lactic acid 3.1, repeated 2.3. Albumin 1.9. IMPRESSION: 1. Sepsis with shock. 2. Aspiration pneumonia. 3. Respiratory failure with trach. 4. Advanced dementia due to cerebrovascular disease. 5. Sinus tachycardia. 6. Paroxysmal atrial fibrillation. 7. Dysphagia with G-tube. 8. Severe protein-calorie malnutrition. 9. Acute on chronic renal failure. 10. Hyperkalemia. 11. Lactic acidosis. PLAN: 1. Volume support. 2. Pressor support. 3. Kayexalate. 4. Repeat electrolytes. 5. Antimicrobials. 6. Ventilator support with respiratory hygiene. 7. DVT and stress ulcer prophylaxis. 8. Serial lactic acid levels. 9. IV fluids with bicarb. 10. Critical and guarded. Franko Pineda M.D. DR: CELINE JOB#: [id number] CC:
--- NOTE | 2020-03-08 01:57 | Cardiology Report ---
APPROVED REPORT EKG Measurement Heart [id number] <Conclusion> Sinus tachycardia Possible Left atrial enlargement Right superior axis deviation Incomplete right bundle branch block Right ventricular hypertrophy ST & T wave abnormality, consider anterior ischemia Abnormal ECG
[2020-03-08 05:10] LABS: HEMATOCRIT 21.8 % (42.0-52.0); HEMOGLOBIN 7.6 G/DL (14.2-18.0); MEAN CORPUSCULAR VOLUME 90 FL (80-99); PLATELET COUNT 118 K/UL (150-450); RED BLOOD COUNT 2.42 M/UL (4.70-6.10); RED CELL DISTRIBUTION WIDTH 13.4 % (11.6-14.8)
[2020-03-08] MEDS: Pantoprazole 80 MG in NS 250 ML IV SCH ×2 (05:14→16:37)
[2020-03-08] MEDS: Sodium Bicarbonate 50 ML in D5 1/2NS 1,000 ML IV SCH ×2 (05:15→13:16)
[2020-03-08] MEDS: Zosyn 3.375gm q12h **Extended infusion IVPB SCH ×4 (05:17→17:21)
[2020-03-08 05:51] LABS: ALANINE AMINOTRANSFERASE 20 U/L (12-78); ALBUMIN 1.4 G/DL (3.4-5.0); ALBUMIN/GLOBULIN RATIO 0.3 (1.0-2.7); ALKALINE PHOSPHATASE 64 U/L (46-116); ANION GAP 14 mmol/L (5-15); ASPARTATE AMINO TRANSFERASE 17 U/L (15-37); BILIRUBIN,TOTAL 0.4 MG/DL (0.2-1.0); BLOOD UREA NITROGEN 119 mg/dL (7-18); CALCIUM 7.4 MG/DL (8.5-10.1); CARBON DIOXIDE 18 MMOL/L (21-32); CHLORIDE 110 MMOL/L (98-107); CREATININE 3.4 MG/DL (0.55-1.30); POTASSIUM 3.5 MMOL/L (3.5-5.1); SODIUM 142 MMOL/L (136-145)
[2020-03-08] MEDS ORDERED: NS 500ML IVPB ONE (07:50)
[2020-03-08] MEDS ORDERED: Vancomycin 750mg/NS 275ml IVPB ONE ×2 (08:00)
--- NOTE | 2020-03-08 08:14 | General Progress Note ---
Assessment/Plan Status: stable, unchanged Assessment/Plan: Assessment - UGI Bleed - malnutrition / low albumin - resp failure / trach - dysphagia / PEG - multiple contractures - OBS - Anemia - Azotemia - Acidosis Recommendations - transfuse to keep Hg> 7 - NPO - PPI - follow labs - EGD Subjective Allergies: Coded Allergies: No Known Allergies (Unverified , 02/23/12) Subjective continues to have bloody GT output for EGD today albumin 1.2-1.4 range H&H slightly lower on pressors Objective Last 24 Hour Vital Signs Date Time Temp Pulse Resp B/P (MAP) Pulse Ox O2 Delivery O2 Flow Rate FiO2 03/08/20 07:00 74 22 158/82 (107) 100 03/08/20 06:15 73 25 154/89 (110) 100 03/08/20 06:00 87 21 142/90 (107) 91 03/08/20 06:00 154/89 03/08/20 05:45 77 28 150/91 (110) 100 03/08/20 05:30 73 29 169/88 (115) 100 03/08/20 05:15 77 26 154/90 (111) 100 03/08/20 05:00 154/90 03/08/20 05:00 91 26 150/90 (110) 100 03/08/20 04:45 91 26 141/89 (106) 100 03/08/20 04:30 89 31 161/94 (116) 100 03/08/20 04:15 79 26 154/90 (111) 100 03/08/20 04:00 40 03/08/20 04:00 82 03/08/20 04:00 154/90 03/08/20 04:00 82 26 157/85 (109) 100 03/08/20 04:00 Mechanical Ventilator 03/08/20 03:45 85 26 156/89 (111) 100 03/08/20 03:30 82 28 143/89 (107) 100 03/08/20 03:15 90 28 160/87 (111) 100 03/08/20 03:00 88 18 146/88 (107) 100 03/08/20 03:00 160/87 03/08/20 02:50 81 30 40 03/08/20 02:45 93 18 166/94 (118) 100 03/08/20 02:30 84 28 150/87 (108) 100 03/08/20 02:15 92 22 145/87 (106) 100 03/08/20 02:00 88 22 137/72 (93) 100 03/08/20 01:45 88 26 141/83 (102) 100 03/08/20 01:30 85 26 135/87 (103) 100 03/08/20 01:15 94 25 146/86 (106) 91 03/08/20 01:00 91 25 155/92 (113) 100 03/08/20 01:00 146/86 03/08/20 00:59 86 30 100 Mechanical Ventilator 40 83 26 40 03/08/20 00:45 84 29 144/85 (104) 100 03/08/20 00:30 94 31 150/85 (106) 100 03/08/20 00:15 75 28 147/88 (107) 100 03/08/20 00:00 97.7 85 29 155/84 (107) 100 03/08/20 00:00 85 03/08/20 00:00 40 03/08/20 00:00 147/88 03/08/20 00:00 Mechanical Ventilator 03/07/20 23:45 80 30 154/88 (110) 100 03/07/20 23:30 78 29 141/87 (105) 100 03/07/20 23:15 82 30 154/88 (110) 100 03/07/20 23:00 78 28 146/86 (106) 100 03/07/20 23:00 154/88 03/07/20 22:54 150/91 03/07/20 22:48 76 34 40 03/07/20 22:45 82 28 150/91 (110) 100 03/07/20 22:30 76 29 147/82 (103) 100 03/07/20 22:15 85 29 143/85 (104) 100 03/07/20 22:00 86 29 148/97 (114) 100 03/07/20 22:00 148/97 03/07/20 21:45 79 28 149/85 (106) 100 03/07/20 21:30 85 27 148/87 (107) 100 03/07/20 21:15 82 26 148/85 (106) 100 03/07/20 21:00 82 25 148/85 (106) 100 03/07/20 21:00 148/85 03/07/20 20:45 89 24 147/84 (105) 100 03/07/20 20:30 87 30 148/83 (104) 100 03/07/20 20:15 87 30 141/84 (103) 100 03/07/20 20:00 85 03/07/20 20:00 40 03/07/20 20:00 141/84 03/07/20 20:00 Mechanical Ventilator 03/07/20 20:00 84 29 154/87 (109) 100 03/07/20 19:30 78 24 151/85 (107) 100 03/07/20 19:17 76 29 100 Mechanical Ventilator 40 83 32 40 03/07/20 19:15 76 26 148/89 (108) 100 03/07/20 19:00 81 28 150/90 (110) 100 03/07/20 19:00 150/90 03/07/20 18:29 90 21 142/76 (98) 100 03/07/20 18:00 87 21 147/86 (106) 100 03/07/20 18:00 147/86 03/07/20 17:30 97 14 152/88 (109) 100 03/07/20 17:00 84 28 133/78 (96) 100 03/07/20 17:00 133/78 03/07/20 16:30 91 28 130/75 (93) 100 03/07/20 16:15 97.6 89 29 130/79 (96) 100 03/07/20 16:00 40 03/07/20 16:00 Mechanical Ventilator 03/07/20 16:00 133/76 03/07/20 16:00 97.6 85 32 133/76 (95) 100 03/07/20 15:45 81 28 115/70 (85) 100 03/07/20 15:43 82 03/07/20 15:30 97 19 117/71 (86) 100 03/07/20 15:14 107 33 40 03/07/20 15:00 120/71 03/07/20 15:00 87 23 120/71 (87) 100 03/07/20 14:00 117/71 03/07/20 14:00 93 27 117/71 (86) 100 03/07/20 13:22 98 30 100 Mechanical Ventilator 40 106 32 40 03/07/20 13:00 76 26 124/76 (92) 100 03/07/20 13:00 124/76 03/07/20 12:12 78 03/07/20 12:00 Mechanical Ventilator 03/07/20 12:00 127/74 03/07/20 12:00 40 03/07/20 12:00 81 29 127/74 (91) 100 03/07/20 11:30 91 18 130/79 (96) 100 03/07/20 11:15 91 31 119/76 (90) 100 03/07/20 11:14 81 29 40 03/07/20 11:00 84 29 125/68 (87) 100 03/07/20 11:00 125/68 03/07/20 10:45 87 27 128/73 (91) 100 03/07/20 10:30 80 30 125/72 (89) 100 03/07/20 10:15 83 29 124/73 (90) 100 03/07/20 10:00 92 29 126/75 (92) 100 03/07/20 10:00 126/75 03/07/20 09:45 79 27 119/69 (86) 100 03/07/20 09:30 83 28 115/72 (86) 100 03/07/20 09:15 82 27 114/70 (85) 100 03/07/20 09:00 112/73 03/07/20 09:00 80 29 112/73 (86) 100 03/07/20 08:45 88 30 114/72 (86) 100 03/07/20 08:30 88 29 117/70 (86) 100 03/07/20 08:15 80 27 113/67 (82) 100 Intake and Output 03/07/20 03/08/20 19:00 07:00 Intake Total 2885.40 ml 2360.43 ml Output Total 630 ml 120 ml Balance 2255.40 ml 2240.43 ml IV Total 2885.40 ml 2360.43 ml Output Urine Total 120 ml 120 ml Stool Total 10 ml 0 ml Gastric Drainage Total 500 ml Laboratory Tests 03/07/20 20:50: White Blood Count 14.7H, Red Blood Count 2.61L, Hemoglobin 8.4L, Hematocrit 24.6L, Mean Corpuscular Volume 94, Mean Corpuscular Hemoglobin 32.3H, Mean Corpuscular Hemoglobin Concent 34.4, Red Cell Distribution Width 14.3, Platelet Count 123L, Mean Platelet Volume 5.8L, Neutrophils (%) (Auto) 83.7H, Lymphocytes (%) (Auto) 9.0L, Monocytes (%) (Auto) 6.6, Eosinophils (%) (Auto) 0.2, Basophils (%) (Auto) 0.5 03/08/20 04:15: White Blood Count 11.0H, Red Blood Count 2.42L, Hemoglobin 7.6L, Hematocrit 21.8L, Mean Corpuscular Volume 90, Mean Corpuscular Hemoglobin 31.3H, Mean Corpuscular Hemoglobin Concent 34.7, Red Cell Distribution Width 13.4, Platelet Count 118L, Mean Platelet Volume 5.2L, Neutrophils (%) (Auto) , Lymphocytes (%) (Auto) , Monocytes (%) (Auto) , Eosinophils (%) (Auto) , Basophils (%) (Auto) , Sodium Level 142, Potassium Level 3.5, Chloride Level 110H, Carbon Dioxide Level 18L, Anion Gap 14, Blood Urea Nitrogen 119H, Creatinine 3.4H, Estimat Glomerular Filtration Rate 17.7, Glucose Level 180H, Calcium Level 7.4L, Total Bilirubin 0.4, Aspartate Amino Transf (AST/SGOT) 17, Alanine Aminotransferase ( ALT/SGPT) 20, Alkaline Phosphatase 64, Total Protein 5.4L, Albumin 1.4L, Globulin 4.0, Albumin/Globulin Ratio 0.3L, Random Vancomycin Level 15.7 Height (Feet): 5 Height (Inches): 7.00 Weight (Pounds): 129 Objective Debilitated unresponsive man NCAT (+) trach coarse BS RR abd flat , (+) GT (+) contractures (+) skin breakdown Clive Kuo MD Mar 08, 2020 08:14
--- NOTE | 2020-03-08 08:16 | Pre-Procedure Note/Attestation ---
Pre-Procedure Note/Attestation Complete Prior to Procedure Planned Procedure: not applicable Procedure Narrative: egd Indications for Procedure Pre-Operative Diagnosis: gib Attestation I attest that I discussed the nature of the procedure; its benefits; risks and complications; and alternatives (and the risks and benefits of such alternatives ), prior to the procedure, with the patient (or the patient's legal field representatives director). I attest that, if there was a reasonable possibility of needing a blood transfusion, the patient (or the patient's legal field representatives director) was given the [facility] standardized written summary, pursuant to the Hiren Oscar Blood Safety Act ([place] Health and Safety Code # 1645, as amended). I attest that I re-evaluated the patient just prior to the surgery and that there has been no change in the patient's H&P, except as documented below: Clive Kuo MD Mar 08, 2020 08:16
[2020-03-08] MEDS: Levothyroxine 25mcg tab GT SCH (09:00)
[2020-03-08] MEDS: Docusate 100mg/10ml Liq GT SCH ×3 (09:00→18:00)
[2020-03-08] MEDS: Levothyroxine 125mcg tab GT SCH (09:00)
[2020-03-08] MEDS: Ascorbic Acid 500mg tab GT SCH (09:00)
--- NOTE | 2020-03-08 09:09 | Anethesia Preoperative Eval ---
Anesthesia Pre-op PMH/ROS General Date of Evaluation: Mar 08, 2020 Time of Evaluation: 08:00 Anesthesiologist: melanie ASA Score: ASA 4 Mallampati Score Class I : Soft palate, uvula, fauces, pillars visible Class II: Soft palate, uvula, fauces visible Class III: Soft palate, base of uvula visible Class IV: Only hard plate visible Mallampati Classification: Class III Surgeon: dee Diagnosis: anemia Surgical Procedure: EGD Anesthesia History: none Allergies: Coded Allergies: No Known Allergies (Unverified , 02/23/12) Medications: see eMAR Patient NPO?: Yes NPO Date: Mar 08, 2020 NPO Time: 00:01 Past Medical History Cardiovascular: Reports: HTN, CAD Pulmonary: Reports: other - ARDS; Resp failure; Trach;; Denies: asthma, COPD, BERTHA Gastrointestinal/Genitourinary: Reports: GERD, CRI, other - GTUBE clamped and to suction Neurologic/Psychiatric: Reports: dementia, CVA Endocrine: Denies: DM, hypothyroidism, steroids, other HEENT: Denies: cataract (L), cataract (R), glaucoma, QUECHAN (L), QUECHAN (R), other Hematology/Immune: Reports: anemia, bleeding disorder; Denies: DVT, other Musculoskeletal/Integumentary: Denies: OA, RA, DJD, DDD, edema, other PMH Narrative: Respiratory Failure Sepsis with recovering shock Asp'n PNA Sinus tachycardia Lactic acidosis CVS with dementia Anemia GI bleeding PAFib Dysphagia with GTube Anesthesia Pre-op Phys. Exam Physician Exam Last Vital Signs Date Time Temp Pulse Resp B/P (MAP) Pulse Ox O2 Delivery O2 Flow Rate FiO2 03/08/20 08:10 74 26 161/86 (111) 100 03/08/20 08:00 Mechanical Ventilator 03/08/20 08:00 40 03/08/20 08:00 97.9 Constitutional: other - guarded Neurologic: other Cardiovascular: RRR Respiratory: other - ronchi, Gastrointestinal: other - gtube to suction Airway Exam Mallampati Classification 3 Mallampati Score: Class III MO: limited ROM: limited Teeth: missing Dentures: no upper, no lower Anesthesia Pre-op A/P Labs Hematology Test 03/07/20 20:50 03/08/20 04:15 White Blood Count 14.7 K/UL (4.8-10.8) H 11.0 K/UL (4.8-10.8) H Red Blood Count 2.61 M/UL (4.70-6.10) L 2.42 M/UL (4.70-6.10) L Hemoglobin 8.4 G/DL (14.2-18.0) L 7.6 G/DL (14.2-18.0) L Hematocrit 24.6 % (42.0-52.0) L 21.8 % (42.0-52.0) L Mean Corpuscular Volume 94 FL (80-99) 90 FL (80-99) Mean Corpuscular Hemoglobin 32.3 PG (27.0-31.0) H 31.3 PG (27.0-31.0) H Mean Corpuscular Hemoglobin Concent 34.4 G/DL (32.0-36.0) 34.7 G/DL (32.0-36.0) Red Cell Distribution Width 14.3 % (11.6-14.8) 13.4 % (11.6-14.8) Platelet Count 123 K/UL (150-450) L 118 K/UL (150-450) L Mean Platelet Volume 5.8 FL (6.5-10.1) L 5.2 FL (6.5-10.1) L Neutrophils (%) (Auto) 83.7 % (45.0-75.0) H % (45.0-75.0) Lymphocytes (%) (Auto) 9.0 % (20.0-45.0) L % (20.0-45.0) Monocytes (%) (Auto) 6.6 % (1.0-10.0) % (1.0-10.0) Eosinophils (%) (Auto) 0.2 % (0.0-3.0) % (0.0-3.0) Basophils (%) (Auto) 0.5 % (0.0-2.0) % (0.0-2.0) Chemistry Test 03/08/20 04:15 Sodium Level 142 MMOL/L (136-145) Potassium Level 3.5 MMOL/L (3.5-5.1) Chloride Level 110 MMOL/L (98-107) H Carbon Dioxide Level 18 MMOL/L (21-32) L Anion Gap 14 mmol/L (5-15) Blood Urea Nitrogen 119 mg/dL (7-18) H Creatinine 3.4 MG/DL (0.55-1.30) H Estimat Glomerular Filtration Rate 17.7 mL/min (>60) Glucose Level 180 MG/DL (74-106) H Calcium Level 7.4 MG/DL (8.5-10.1) L Total Bilirubin 0.4 MG/DL (0.2-1.0) Aspartate Amino Transf (AST/SGOT) 17 U/L (15-37) Alanine Aminotransferase (ALT/SGPT) 20 U/L (12-78) Alkaline Phosphatase 64 U/L (46-116) Total Protein 5.4 G/DL (6.4-8.2) L Albumin 1.4 G/DL (3.4-5.0) L Globulin 4.0 g/dL Albumin/Globulin Ratio 0.3 (1.0-2.7) L Studies Pre-op Studies: EKG Risk Assessment & Plan Assessment: s/p 5 units; EGD this morning; pt is demented, on levophed and mechanically vent Plan: mac Status Change Before Surgery: No Pre-Antibiotics Drug: none Fatimah Robles CRNA Mar 08, 2020 09:08
--- NOTE | 2020-03-08 09:10 | Immediate Post-Op Evaluation ---
Immediate Post-Op Evalulation Immediate Post-Op Evalulation Procedure: egd Date of Evaluation: Mar 08, 2020 Time of Evaluation: 09:09 IV Fluids: 300 Blood Pressure Systolic: 144 Blood Pressure Diastolic: 60 Pulse Rate: 80 Respiratory Rate: 26 O2 Sat by Pulse Oximetry: 100 Nausea: No Vomiting: No Complications none Patient Status: reacts, patent, ventilated - AC 450 40% 26 5 Hydration Status: other - see note; Drug: none TahirriFatimah harvey CRNA Mar 08, 2020 09:10
[2020-03-08] MEDS: Phenylephrine 100 MG in D5W 240 ML IV SCH (09:23)
[2020-03-08] MEDS ORDERED: SYNTHROID100 MCG GT (10:56)
[2020-03-08] MEDS: levETIRAcetam 750 MG in NS 110 ML IV SCH ×2 (11:00→22:42)
--- NOTE | 2020-03-08 11:08 | Infectious Diseases Prog Note ---
Assessment/Plan Assessment/Plan antibiotics : vancomycin iv, zosyn A 1. pneumonia 2. UTI 3. renal failure 4. shock 5. GI bleeding 6. diabetes mellitus 7. gram positive sepsis P 1. continue iv vancomycin, zosyn 2. will follow up cultures Subjective ROS Limited/Unobtainable: Yes Allergies: Coded Allergies: No Known Allergies (Unverified , 02/23/12) Objective Last 24 Hour Vital Signs Date Time Temp Pulse Resp B/P (MAP) Pulse Ox O2 Delivery O2 Flow Rate FiO2 03/08/20 10:00 75 27 156/85 (108) 100 03/08/20 09:55 78 25 145/83 (103) 100 03/08/20 09:50 72 26 142/82 (102) 100 03/08/20 09:45 74 26 137/85 (102) 100 03/08/20 09:40 71 27 144/80 (101) 100 03/08/20 09:35 77 26 142/82 (102) 100 03/08/20 09:30 72 26 143/86 (105) 100 03/08/20 09:25 74 27 148/82 (104) 100 03/08/20 09:20 68 27 109/71 (84) 100 03/08/20 09:15 67 27 143/78 (99) 100 03/08/20 09:10 66 27 139/79 (99) 100 03/08/20 09:10 80 26 100 03/08/20 09:05 65 26 141/80 (100) 100 03/08/20 09:00 66 26 136/77 (96) 100 03/08/20 08:55 70 26 139/80 (99) 100 03/08/20 08:54 71 26 137/84 (101) 100 03/08/20 08:50 71 26 137/80 (99) 100 03/08/20 08:49 71 26 135/81 (99) 100 03/08/20 08:46 73 26 137/80 (99) 100 03/08/20 08:45 72 26 136/80 (98) 100 03/08/20 08:36 77 24 122/75 (91) 100 03/08/20 08:35 76 26 100 03/08/20 08:33 77 26 139/84 (102) 100 03/08/20 08:32 76 26 139/86 (103) 100 03/08/20 08:31 75 25 140/83 (102) 100 03/08/20 08:28 78 23 138/80 (99) 100 03/08/20 08:27 79 26 141/81 (101) 100 03/08/20 08:25 84 25 143/81 (101) 100 03/08/20 08:23 94 26 142/84 (103) 100 03/08/20 08:22 99 19 142/85 (104) 100 03/08/20 08:18 98 28 147/89 (108) 97 03/08/20 08:15 79 14 154/91 (112) 100 03/08/20 08:14 75 24 156/91 (112) 100 03/08/20 08:11 77 27 154/86 (108) 100 03/08/20 08:10 74 26 161/86 (111) 100 03/08/20 08:10 74 26 161/86 (111) 100 03/08/20 08:07 75 21 152/78 (102) 100 03/08/20 08:05 76 24 100 03/08/20 08:00 80 03/08/20 08:00 Mechanical Ventilator 03/08/20 08:00 40 03/08/20 08:00 97.9 82 23 158/90 (112) 100 03/08/20 07:30 79 16 152/85 (107) 100 03/08/20 07:22 104 28 100 Mechanical Ventilator 40 99 28 40 03/08/20 07:00 74 22 158/82 (107) 100 03/08/20 06:15 73 25 154/89 (110) 100 03/08/20 06:00 87 21 142/90 (107) 91 03/08/20 06:00 154/89 03/08/20 05:45 77 28 150/91 (110) 100 03/08/20 05:30 73 29 169/88 (115) 100 03/08/20 05:15 77 26 154/90 (111) 100 03/08/20 05:00 154/90 03/08/20 05:00 91 26 150/90 (110) 100 03/08/20 04:45 91 26 141/89 (106) 100 03/08/20 04:30 89 31 161/94 (116) 100 03/08/20 04:15 79 26 154/90 (111) 100 03/08/20 04:00 40 03/08/20 04:00 82 03/08/20 04:00 154/90 03/08/20 04:00 82 26 157/85 (109) 100 03/08/20 04:00 Mechanical Ventilator 03/08/20 03:45 85 26 156/89 (111) 100 03/08/20 03:30 82 28 143/89 (107) 100 03/08/20 03:15 90 28 160/87 (111) 100 03/08/20 03:00 88 18 146/88 (107) 100 03/08/20 03:00 160/87 03/08/20 02:50 81 30 40 03/08/20 02:45 93 18 166/94 (118) 100 03/08/20 02:30 84 28 150/87 (108) 100 03/08/20 02:15 92 22 145/87 (106) 100 03/08/20 02:00 88 22 137/72 (93) 100 03/08/20 01:45 88 26 141/83 (102) 100 03/08/20 01:30 85 26 135/87 (103) 100 03/08/20 01:15 94 25 146/86 (106) 91 03/08/20 01:00 91 25 155/92 (113) 100 03/08/20 01:00 146/86 03/08/20 00:59 86 30 100 Mechanical Ventilator 40 83 26 40 03/08/20 00:45 84 29 144/85 (104) 100 03/08/20 00:30 94 31 150/85 (106) 100 03/08/20 00:15 75 28 147/88 (107) 100 03/08/20 00:00 97.7 85 29 155/84 (107) 100 03/08/20 00:00 85 03/08/20 00:00 40 03/08/20 00:00 147/88 03/08/20 00:00 Mechanical Ventilator 03/07/20 23:45 80 30 154/88 (110) 100 03/07/20 23:30 78 29 141/87 (105) 100 03/07/20 23:15 82 30 154/88 (110) 100 03/07/20 23:00 78 28 146/86 (106) 100 03/07/20 23:00 154/88 03/07/20 22:54 150/91 03/07/20 22:48 76 34 40 03/07/20 22:45 82 28 150/91 (110) 100 03/07/20 22:30 76 29 147/82 (103) 100 03/07/20 22:15 85 29 143/85 (104) 100 03/07/20 22:00 86 29 148/97 (114) 100 03/07/20 22:00 148/97 03/07/20 21:45 79 28 149/85 (106) 100 03/07/20 21:30 85 27 148/87 (107) 100 03/07/20 21:15 82 26 148/85 (106) 100 03/07/20 21:00 82 25 148/85 (106) 100 03/07/20 21:00 148/85 03/07/20 20:45 89 24 147/84 (105) 100 03/07/20 20:30 87 30 148/83 (104) 100 03/07/20 20:15 87 30 141/84 (103) 100 03/07/20 20:00 85 03/07/20 20:00 40 03/07/20 20:00 141/84 03/07/20 20:00 Mechanical Ventilator 03/07/20 20:00 84 29 154/87 (109) 100 03/07/20 19:30 78 24 151/85 (107) 100 03/07/20 19:17 76 29 100 Mechanical Ventilator 40 83 32 40 03/07/20 19:15 76 26 148/89 (108) 100 03/07/20 19:00 81 28 150/90 (110) 100 03/07/20 19:00 150/90 03/07/20 18:29 90 21 142/76 (98) 100 03/07/20 18:00 87 21 147/86 (106) 100 03/07/20 18:00 147/86 03/07/20 17:30 97 14 152/88 (109) 100 03/07/20 17:00 84 28 133/78 (96) 100 03/07/20 17:00 133/78 03/07/20 16:30 91 28 130/75 (93) 100 03/07/20 16:15 97.6 89 29 130/79 (96) 100 03/07/20 16:00 40 03/07/20 16:00 Mechanical Ventilator 03/07/20 16:00 133/76 03/07/20 16:00 97.6 85 32 133/76 (95) 100 03/07/20 15:45 81 28 115/70 (85) 100 03/07/20 15:43 82 03/07/20 15:30 97 19 117/71 (86) 100 03/07/20 15:14 107 33 40 03/07/20 15:00 120/71 03/07/20 15:00 87 23 120/71 (87) 100 03/07/20 14:00 117/71 03/07/20 14:00 93 27 117/71 (86) 100 03/07/20 13:22 98 30 100 Mechanical Ventilator 40 106 32 40 03/07/20 13:00 76 26 124/76 (92) 100 03/07/20 13:00 124/76 03/07/20 12:12 78 03/07/20 12:00 Mechanical Ventilator 03/07/20 12:00 127/74 03/07/20 12:00 40 03/07/20 12:00 81 29 127/74 (91) 100 03/07/20 11:30 91 18 130/79 (96) 100 03/07/20 11:15 91 31 119/76 (90) 100 03/07/20 11:14 81 29 40 Height (Feet): 5 Height (Inches): 7.00 Weight (Pounds): 129 HEENT: status post trach Respiratory/Chest: lungs clear Cardiovascular: normal rate, regular rhythm, no gallop/murmur Abdomen: soft, non tender, other - Gt site bleeding Extremities: no edema Laboratory Tests Test 03/07/20 20:50 03/08/20 04:15 White Blood Count 14.7 K/UL (4.8-10.8) H 11.0 K/UL (4.8-10.8) H Red Blood Count 2.61 M/UL (4.70-6.10) L 2.42 M/UL (4.70-6.10) L Hemoglobin 8.4 G/DL (14.2-18.0) L 7.6 G/DL (14.2-18.0) L Hematocrit 24.6 % (42.0-52.0) L 21.8 % (42.0-52.0) L Mean Corpuscular Volume 94 FL (80-99) 90 FL (80-99) Mean Corpuscular Hemoglobin 32.3 PG (27.0-31.0) H 31.3 PG (27.0-31.0) H Mean Corpuscular Hemoglobin Concent 34.4 G/DL (32.0-36.0) 34.7 G/DL (32.0-36.0) Red Cell Distribution Width 14.3 % (11.6-14.8) 13.4 % (11.6-14.8) Platelet Count 123 K/UL (150-450) L 118 K/UL (150-450) L Mean Platelet Volume 5.8 FL (6.5-10.1) L 5.2 FL (6.5-10.1) L Neutrophils (%) (Auto) 83.7 % (45.0-75.0) H % (45.0-75.0) Lymphocytes (%) (Auto) 9.0 % (20.0-45.0) L % (20.0-45.0) Monocytes (%) (Auto) 6.6 % (1.0-10.0) % (1.0-10.0) Eosinophils (%) (Auto) 0.2 % (0.0-3.0) % (0.0-3.0) Basophils (%) (Auto) 0.5 % (0.0-2.0) % (0.0-2.0) Sodium Level 142 MMOL/L (136-145) Potassium Level 3.5 MMOL/L (3.5-5.1) Chloride Level 110 MMOL/L (98-107) H Carbon Dioxide Level 18 MMOL/L (21-32) L Anion Gap 14 mmol/L (5-15) Blood Urea Nitrogen 119 mg/dL (7-18) H Creatinine 3.4 MG/DL (0.55-1.30) H Estimat Glomerular Filtration Rate 17.7 mL/min (>60) Glucose Level 180 MG/DL (74-106) H Calcium Level 7.4 MG/DL (8.5-10.1) L Total Bilirubin 0.4 MG/DL (0.2-1.0) Aspartate Amino Transf (AST/SGOT) 17 U/L (15-37) Alanine Aminotransferase (ALT/SGPT) 20 U/L (12-78) Alkaline Phosphatase 64 U/L (46-116) Total Protein 5.4 G/DL (6.4-8.2) L Albumin 1.4 G/DL (3.4-5.0) L Globulin 4.0 g/dL Albumin/Globulin Ratio 0.3 (1.0-2.7) L Random Vancomycin Level 15.7 ug/mL Current Medications Medications (Trade) Dose Ordered Sig/Lanny Route PRN Reason Start Time Stop Time Status Last Admin Dose Admin Acetaminophen (Tylenol) 650 mg Q6H PRN ORAL MILD/TEMP 03/05/20 08:30 04/04/20 08:29 Albuterol/ Ipratropium (Albuterol/ Ipratropium) 3 ml Q6HRT HHN 03/05/20 13:00 03/10/20 12:59 03/08/20 07:12 Ascorbic Acid (Vitamin C) 500 mg DAILY GT 03/05/20 09:00 04/04/20 08:59 03/05/20 10:45 Chlorhexidine Gluconate (Kayla-Hex 2%) 1 applic DAILY@2000 TOPIC 03/05/20 21:00 06/03/20 20:59 03/07/20 21:41 Docusate Sodium (Colace) 100 mg THREE TIMES A DAY GT 03/05/20 09:00 04/04/20 08:59 03/05/20 10:44 Epoetin Asaf (Epoetin Asaf-EPBX(NON ESRD)) 3,000 unit -FRI SUBQ 03/08/20 21:00 06/06/20 20:59 Epoetin Asaf (Epoetin Asaf-EPBX(NON ESRD)) 4,000 unit SUBQ 03/08/20 21:00 06/06/20 20:59 Levetiracetam 750 mg/Sodium Chloride 117.5 ml @ 470 mls/hr Q12H IV 03/05/20 23:00 04/04/20 22:59 03/08/20 11:00 Levothyroxine Sodium (Synthroid) 50 mcg DAILY GT 03/05/20 09:00 10/6/20 08:59 03/05/20 10:45 Levothyroxine Sodium (Synthroid) 125 mcg DAILY GT 03/05/20 09:00 04/04/20 08:59 03/05/20 10:45 Lorazepam (Ativan 2mg/ml 1ml) 1 mg Q4H PRN IV For Seizures 03/07/20 06:15 03/14/20 06:14 Metoclopramide HCl (Reglan) 5 mg EVERY 6 HOURS IVP 03/08/20 12:00 04/07/20 11:59 Norepinephrine Bitartrate 16 mg/ Sodium Chloride 500 ml @ 0 mls/hr Q24H IV 03/06/20 08:30 04/05/20 08:29 03/07/20 22:54 Octreotide Acetate 500 mcg/ Sodium Chloride 500 ml @ 50 mls/hr Q10H IV 03/06/20 08:00 04/05/20 07:59 03/08/20 11:00 Pantoprazole 80 mg/Sodium Chloride 250 ml @ 25 mls/hr Q10H IV 03/05/20 12:30 04/04/20 12:29 03/08/20 05:14 Phenylephrine HCl 100 mg/Dextrose 250 ml @ 0 mls/hr Q24H IV 03/06/20 09:45 04/05/20 09:44 03/06/20 21:05 Piperacillin Sod/ Tazobactam Sod 3.375 gm/Sodium Chloride 110 ml @ 27.5 mls/hr Q12HR@0600,1800 IVPB 03/06/20 18:00 03/13/20 17:59 03/08/20 05:17 Sodium Bicarbonate 50 ml/ Dextrose/Sodium Chloride 1,050 ml @ 125 mls/hr Q8H24M IV 03/05/20 09:30 04/04/20 09:29 03/08/20 05:15 Vancomycin HCl ([facility] pharmacy to dose) 1 ea DAILY PRN MISC Per rx protocol 03/05/20 08:30 04/04/20 08:29 Isaak Hair MD Mar 08, 2020 11:08
--- NOTE | 2020-03-08 11:11 | 48 Hour Post Anesthesia Eval ---
Post Anesthesia Evaluation Procedure: egd Date of Evaluation: Mar 08, 2020 Time of Evaluation: 11:10 Blood Pressure Systolic: 158 0: 70 Pulse Rate: 65 Respiratory Rate: 14 O2 Sat by Pulse Oximetry: 99 Airway: patent Nausea: No Vomiting: No Hydration Status: adequate Cardiopulmonary Status: stable Mental Status/LOC: patient returned to baseline Post-Anesthesia Complications: none Follow-up care needed: N/A Fatimah Robles CRNA Mar 08, 2020 11:11
[2020-03-08] MEDS ORDERED: PROMOD946 ML PO (11:17)
[2020-03-08] MEDS ORDERED: POTASSIUM40 MEQ/11 PO (11:17)
[2020-03-08] MEDS ORDERED: FERROUS SU300 MG/52 GT (11:17)
[2020-03-08] MEDS ORDERED: ATIVAN1 MG ORAL (11:17)
[2020-03-08] MEDS: Metoclopramide 10mg/2ml Inj IVP SCH ×3 (12:14→23:27)
--- NOTE | 2020-03-08 15:22 | Nephrology Progress Note ---
Assessment/Plan Plan Acute Oliguric ARF Severe Metabolic Acidosis MOF VDRF Seizure DO Urosepsis Anemia, mostly of CKD - JJ Subjective Subjective Obtunded. Objective Objective Last 24 Hour Vital Signs Date Time Temp Pulse Resp B/P (MAP) Pulse Ox O2 Delivery O2 Flow Rate FiO2 03/08/20 15:00 89 34 137/90 (106) 100 03/08/20 14:45 89 32 140/89 (106) 100 03/08/20 14:30 88 32 137/85 (102) 100 03/08/20 14:15 81 5 129/82 (98) 100 03/08/20 14:00 83 17 141/90 (107) 100 03/08/20 13:45 83 14 131/86 (101) 100 03/08/20 13:30 88 23 146/83 (104) 100 03/08/20 13:15 87 24 139/83 (101) 100 03/08/20 13:11 84 38 100 Mechanical Ventilator 40 83 38 40 03/08/20 13:00 148/96 03/08/20 13:00 87 35 148/96 (113) 100 03/08/20 12:45 145/90 03/08/20 12:45 81 34 145/90 (108) 100 03/08/20 12:30 81 31 160/90 (113) 100 03/08/20 12:30 160/90 03/08/20 12:15 166/93 03/08/20 12:15 84 32 166/93 (117) 100 03/08/20 12:00 40 03/08/20 12:00 166/93 03/08/20 12:00 Mechanical Ventilator 03/08/20 12:00 82 03/08/20 12:00 82 30 166/93 (117) 100 03/08/20 11:20 73 30 40 03/08/20 11:15 71 33 151/89 (109) 100 03/08/20 11:11 65 14 99 03/08/20 11:00 157/82 03/08/20 11:00 71 32 157/82 (107) 100 03/08/20 10:45 72 30 151/92 (111) 100 03/08/20 10:35 73 26 151/84 (106) 100 03/08/20 10:30 75 28 152/85 (107) 100 03/08/20 10:25 75 30 150/84 (106) 100 03/08/20 10:20 75 26 148/87 (107) 100 03/08/20 10:15 75 29 148/85 (106) 100 03/08/20 10:00 156/85 03/08/20 10:00 75 27 156/85 (108) 100 03/08/20 09:55 78 25 145/83 (103) 100 03/08/20 09:50 72 26 142/82 (102) 100 03/08/20 09:45 74 26 137/85 (102) 100 03/08/20 09:40 71 27 144/80 (101) 100 03/08/20 09:35 77 26 142/82 (102) 100 03/08/20 09:30 72 26 143/86 (105) 100 03/08/20 09:25 74 27 148/82 (104) 100 03/08/20 09:20 68 27 109/71 (84) 100 03/08/20 09:15 67 27 143/78 (99) 100 03/08/20 09:10 66 27 139/79 (99) 100 03/08/20 09:10 80 26 100 03/08/20 09:05 65 26 141/80 (100) 100 03/08/20 09:00 136/77 03/08/20 09:00 66 26 136/77 (96) 100 03/08/20 08:55 70 26 139/80 (99) 100 03/08/20 08:54 71 26 137/84 (101) 100 03/08/20 08:50 71 26 137/80 (99) 100 03/08/20 08:49 71 26 135/81 (99) 100 03/08/20 08:46 73 26 137/80 (99) 100 03/08/20 08:45 72 26 136/80 (98) 100 03/08/20 08:36 77 24 122/75 (91) 100 03/08/20 08:35 76 26 100 03/08/20 08:33 77 26 139/84 (102) 100 03/08/20 08:32 76 26 139/86 (103) 100 03/08/20 08:31 75 25 140/83 (102) 100 03/08/20 08:28 78 23 138/80 (99) 100 03/08/20 08:27 79 26 141/81 (101) 100 03/08/20 08:25 84 25 143/81 (101) 100 03/08/20 08:23 94 26 142/84 (103) 100 03/08/20 08:22 99 19 142/85 (104) 100 03/08/20 08:18 98 28 147/89 (108) 97 03/08/20 08:15 79 14 154/91 (112) 100 03/08/20 08:14 75 24 156/91 (112) 100 03/08/20 08:11 77 27 154/86 (108) 100 03/08/20 08:10 74 26 161/86 (111) 100 03/08/20 08:10 74 26 161/86 (111) 100 03/08/20 08:07 75 21 152/78 (102) 100 03/08/20 08:05 76 24 100 03/08/20 08:00 80 03/08/20 08:00 Mechanical Ventilator 03/08/20 08:00 40 03/08/20 08:00 158/90 03/08/20 08:00 97.9 82 23 158/90 (112) 100 03/08/20 07:30 79 16 152/85 (107) 100 03/08/20 07:22 104 28 100 Mechanical Ventilator 40 99 28 40 03/08/20 07:00 74 22 158/82 (107) 100 03/08/20 07:00 158/82 03/08/20 06:15 73 25 154/89 (110) 100 03/08/20 06:00 87 21 142/90 (107) 91 03/08/20 06:00 154/89 03/08/20 05:45 77 28 150/91 (110) 100 03/08/20 05:30 73 29 169/88 (115) 100 03/08/20 05:15 77 26 154/90 (111) 100 03/08/20 05:00 154/90 03/08/20 05:00 91 26 150/90 (110) 100 03/08/20 04:45 91 26 141/89 (106) 100 03/08/20 04:30 89 31 161/94 (116) 100 03/08/20 04:15 79 26 154/90 (111) 100 03/08/20 04:00 40 03/08/20 04:00 82 03/08/20 04:00 154/90 03/08/20 04:00 82 26 157/85 (109) 100 03/08/20 04:00 Mechanical Ventilator 03/08/20 03:45 85 26 156/89 (111) 100 03/08/20 03:30 82 28 143/89 (107) 100 03/08/20 03:15 90 28 160/87 (111) 100 03/08/20 03:00 88 18 146/88 (107) 100 03/08/20 03:00 160/87 03/08/20 02:50 81 30 40 03/08/20 02:45 93 18 166/94 (118) 100 03/08/20 02:30 84 28 150/87 (108) 100 03/08/20 02:15 92 22 145/87 (106) 100 03/08/20 02:00 88 22 137/72 (93) 100 03/08/20 01:45 88 26 141/83 (102) 100 03/08/20 01:30 85 26 135/87 (103) 100 03/08/20 01:15 94 25 146/86 (106) 91 03/08/20 01:00 91 25 155/92 (113) 100 03/08/20 01:00 146/86 03/08/20 00:59 86 30 100 Mechanical Ventilator 40 83 26 40 03/08/20 00:45 84 29 144/85 (104) 100 03/08/20 00:30 94 31 150/85 (106) 100 03/08/20 00:15 75 28 147/88 (107) 100 03/08/20 00:00 97.7 85 29 155/84 (107) 100 03/08/20 00:00 85 03/08/20 00:00 40 03/08/20 00:00 147/88 03/08/20 00:00 Mechanical Ventilator 03/07/20 23:45 80 30 154/88 (110) 100 03/07/20 23:30 78 29 141/87 (105) 100 03/07/20 23:15 82 30 154/88 (110) 100 03/07/20 23:00 78 28 146/86 (106) 100 03/07/20 23:00 154/88 03/07/20 22:54 150/91 03/07/20 22:48 76 34 40 03/07/20 22:45 82 28 150/91 (110) 100 03/07/20 22:30 76 29 147/82 (103) 100 03/07/20 22:15 85 29 143/85 (104) 100 03/07/20 22:00 86 29 148/97 (114) 100 03/07/20 22:00 148/97 03/07/20 21:45 79 28 149/85 (106) 100 03/07/20 21:30 85 27 148/87 (107) 100 03/07/20 21:15 82 26 148/85 (106) 100 03/07/20 21:00 82 25 148/85 (106) 100 03/07/20 21:00 148/85 03/07/20 20:45 89 24 147/84 (105) 100 03/07/20 20:30 87 30 148/83 (104) 100 03/07/20 20:15 87 30 141/84 (103) 100 03/07/20 20:00 85 03/07/20 20:00 40 03/07/20 20:00 141/84 03/07/20 20:00 Mechanical Ventilator 03/07/20 20:00 84 29 154/87 (109) 100 03/07/20 19:30 78 24 151/85 (107) 100 03/07/20 19:17 76 29 100 Mechanical Ventilator 40 83 32 40 03/07/20 19:15 76 26 148/89 (108) 100 03/07/20 19:00 81 28 150/90 (110) 100 03/07/20 19:00 150/90 03/07/20 18:29 90 21 142/76 (98) 100 03/07/20 18:00 87 21 147/86 (106) 100 03/07/20 18:00 147/86 03/07/20 17:30 97 14 152/88 (109) 100 03/07/20 17:00 84 28 133/78 (96) 100 03/07/20 17:00 133/78 03/07/20 16:30 91 28 130/75 (93) 100 03/07/20 16:15 97.6 89 29 130/79 (96) 100 03/07/20 16:00 40 03/07/20 16:00 Mechanical Ventilator 03/07/20 16:00 133/76 03/07/20 16:00 97.6 85 32 133/76 (95) 100 03/07/20 15:45 81 28 115/70 (85) 100 03/07/20 15:43 82 03/07/20 15:30 97 19 117/71 (86) 100 Intake and Output 03/07/20 03/08/20 19:00 07:00 Intake Total 2885.40 ml 2617.93 ml Output Total 630 ml 120 ml Balance 2255.40 ml 2497.93 ml IV Total 2885.40 ml 2617.93 ml Output Urine Total 120 ml 120 ml Stool Total 10 ml 0 ml Gastric Drainage Total 500 ml Laboratory Tests 03/07/20 20:50: White Blood Count 14.7H, Red Blood Count 2.61L, Hemoglobin 8.4L, Hematocrit 24.6L, Mean Corpuscular Volume 94, Mean Corpuscular Hemoglobin 32.3H, Mean Corpuscular Hemoglobin Concent 34.4, Red Cell Distribution Width 14.3, Platelet Count 123L, Mean Platelet Volume 5.8L, Neutrophils (%) (Auto) 83.7H, Lymphocytes (%) (Auto) 9.0L, Monocytes (%) (Auto) 6.6, Eosinophils (%) (Auto) 0.2, Basophils (%) (Auto) 0.5 03/08/20 04:15: White Blood Count 11.0H, Red Blood Count 2.42L, Hemoglobin 7.6L, Hematocrit 21.8L, Mean Corpuscular Volume 90, Mean Corpuscular Hemoglobin 31.3H, Mean Corpuscular Hemoglobin Concent 34.7, Red Cell Distribution Width 13.4, Platelet Count 118L, Mean Platelet Volume 5.2L, Neutrophils (%) (Auto) , Lymphocytes (%) (Auto) , Monocytes (%) (Auto) , Eosinophils (%) (Auto) , Basophils (%) (Auto) , Sodium Level 142, Potassium Level 3.5, Chloride Level 110H, Carbon Dioxide Level 18L, Anion Gap 14, Blood Urea Nitrogen 119H, Creatinine 3.4H, Estimat Glomerular Filtration Rate 17.7, Glucose Level 180H, Calcium Level 7.4L, Total Bilirubin 0.4, Aspartate Amino Transf (AST/SGOT) 17, Alanine Aminotransferase ( ALT/SGPT) 20, Alkaline Phosphatase 64, Total Protein 5.4L, Albumin 1.4L, Globulin 4.0, Albumin/Globulin Ratio 0.3L, Random Vancomycin Level 15.7 Height (Feet): 5 Height (Inches): 7.00 Weight (Pounds): 129 Objective On vent. Trach site miroslava. CV Tach. Lungs B ronchi. Abd distended. SNT. BS diminished. E contractures. +2 B edema. Neuro obtunded. Nonfocal. Ayanna Maldonado MD Mar 08, 2020 15:22
--- NOTE | 2020-03-08 15:31 | Surgery Progress Note ---
Surgery Progress Note Subjective Additional Comments Spoke with GI and discussed EGD findings large clot noted unable to break down. Active site of bleeding not identified with deafly noted oozing. Full limited evaluation only. NG tube placed at bedside plan for irrigation with water continuous through NG suction through the feeding tube or vice versa until clear.clot plan for potential repeat scope. Objective Last 24 Hour Vital Signs Date Time Temp Pulse Resp B/P (MAP) Pulse Ox O2 Delivery O2 Flow Rate FiO2 03/08/20 15:00 89 34 137/90 (106) 100 03/08/20 14:45 89 32 140/89 (106) 100 03/08/20 14:30 88 32 137/85 (102) 100 03/08/20 14:15 81 5 129/82 (98) 100 03/08/20 14:00 83 17 141/90 (107) 100 03/08/20 13:45 83 14 131/86 (101) 100 03/08/20 13:30 88 23 146/83 (104) 100 03/08/20 13:15 87 24 139/83 (101) 100 03/08/20 13:11 84 38 100 Mechanical Ventilator 40 83 38 40 03/08/20 13:00 148/96 03/08/20 13:00 87 35 148/96 (113) 100 03/08/20 12:45 145/90 03/08/20 12:45 81 34 145/90 (108) 100 03/08/20 12:30 81 31 160/90 (113) 100 03/08/20 12:30 160/90 03/08/20 12:15 166/93 03/08/20 12:15 84 32 166/93 (117) 100 03/08/20 12:00 40 03/08/20 12:00 166/93 03/08/20 12:00 Mechanical Ventilator 03/08/20 12:00 82 03/08/20 12:00 82 30 166/93 (117) 100 03/08/20 11:20 73 30 40 03/08/20 11:15 71 33 151/89 (109) 100 03/08/20 11:11 65 14 99 03/08/20 11:00 157/82 03/08/20 11:00 71 32 157/82 (107) 100 03/08/20 10:45 72 30 151/92 (111) 100 03/08/20 10:35 73 26 151/84 (106) 100 03/08/20 10:30 75 28 152/85 (107) 100 03/08/20 10:25 75 30 150/84 (106) 100 03/08/20 10:20 75 26 148/87 (107) 100 03/08/20 10:15 75 29 148/85 (106) 100 03/08/20 10:00 156/85 03/08/20 10:00 75 27 156/85 (108) 100 03/08/20 09:55 78 25 145/83 (103) 100 03/08/20 09:50 72 26 142/82 (102) 100 03/08/20 09:45 74 26 137/85 (102) 100 03/08/20 09:40 71 27 144/80 (101) 100 03/08/20 09:35 77 26 142/82 (102) 100 03/08/20 09:30 72 26 143/86 (105) 100 03/08/20 09:25 74 27 148/82 (104) 100 03/08/20 09:20 68 27 109/71 (84) 100 03/08/20 09:15 67 27 143/78 (99) 100 03/08/20 09:10 66 27 139/79 (99) 100 03/08/20 09:10 80 26 100 03/08/20 09:05 65 26 141/80 (100) 100 03/08/20 09:00 136/77 03/08/20 09:00 66 26 136/77 (96) 100 03/08/20 08:55 70 26 139/80 (99) 100 03/08/20 08:54 71 26 137/84 (101) 100 03/08/20 08:50 71 26 137/80 (99) 100 03/08/20 08:49 71 26 135/81 (99) 100 03/08/20 08:46 73 26 137/80 (99) 100 03/08/20 08:45 72 26 136/80 (98) 100 03/08/20 08:36 77 24 122/75 (91) 100 03/08/20 08:35 76 26 100 03/08/20 08:33 77 26 139/84 (102) 100 03/08/20 08:32 76 26 139/86 (103) 100 03/08/20 08:31 75 25 140/83 (102) 100 03/08/20 08:28 78 23 138/80 (99) 100 03/08/20 08:27 79 26 141/81 (101) 100 03/08/20 08:25 84 25 143/81 (101) 100 03/08/20 08:23 94 26 142/84 (103) 100 03/08/20 08:22 99 19 142/85 (104) 100 03/08/20 08:18 98 28 147/89 (108) 97 03/08/20 08:15 79 14 154/91 (112) 100 03/08/20 08:14 75 24 156/91 (112) 100 03/08/20 08:11 77 27 154/86 (108) 100 03/08/20 08:10 74 26 161/86 (111) 100 03/08/20 08:10 74 26 161/86 (111) 100 03/08/20 08:07 75 21 152/78 (102) 100 03/08/20 08:05 76 24 100 03/08/20 08:00 80 03/08/20 08:00 Mechanical Ventilator 03/08/20 08:00 40 03/08/20 08:00 158/90 03/08/20 08:00 97.9 82 23 158/90 (112) 100 03/08/20 07:30 79 16 152/85 (107) 100 03/08/20 07:22 104 28 100 Mechanical Ventilator 40 99 28 40 03/08/20 07:00 74 22 158/82 (107) 100 03/08/20 07:00 158/82 03/08/20 06:15 73 25 154/89 (110) 100 03/08/20 06:00 87 21 142/90 (107) 91 03/08/20 06:00 154/89 03/08/20 05:45 77 28 150/91 (110) 100 03/08/20 05:30 73 29 169/88 (115) 100 03/08/20 05:15 77 26 154/90 (111) 100 03/08/20 05:00 154/90 03/08/20 05:00 91 26 150/90 (110) 100 03/08/20 04:45 91 26 141/89 (106) 100 03/08/20 04:30 89 31 161/94 (116) 100 03/08/20 04:15 79 26 154/90 (111) 100 03/08/20 04:00 40 03/08/20 04:00 82 03/08/20 04:00 154/90 03/08/20 04:00 82 26 157/85 (109) 100 03/08/20 04:00 Mechanical Ventilator 03/08/20 03:45 85 26 156/89 (111) 100 03/08/20 03:30 82 28 143/89 (107) 100 03/08/20 03:15 90 28 160/87 (111) 100 03/08/20 03:00 88 18 146/88 (107) 100 03/08/20 03:00 160/87 03/08/20 02:50 81 30 40 03/08/20 02:45 93 18 166/94 (118) 100 03/08/20 02:30 84 28 150/87 (108) 100 03/08/20 02:15 92 22 145/87 (106) 100 03/08/20 02:00 88 22 137/72 (93) 100 03/08/20 01:45 88 26 141/83 (102) 100 03/08/20 01:30 85 26 135/87 (103) 100 03/08/20 01:15 94 25 146/86 (106) 91 03/08/20 01:00 91 25 155/92 (113) 100 03/08/20 01:00 146/86 03/08/20 00:59 86 30 100 Mechanical Ventilator 40 83 26 40 03/08/20 00:45 84 29 144/85 (104) 100 03/08/20 00:30 94 31 150/85 (106) 100 03/08/20 00:15 75 28 147/88 (107) 100 03/08/20 00:00 97.7 85 29 155/84 (107) 100 03/08/20 00:00 85 03/08/20 00:00 40 03/08/20 00:00 147/88 03/08/20 00:00 Mechanical Ventilator 03/07/20 23:45 80 30 154/88 (110) 100 03/07/20 23:30 78 29 141/87 (105) 100 03/07/20 23:15 82 30 154/88 (110) 100 03/07/20 23:00 78 28 146/86 (106) 100 03/07/20 23:00 154/88 03/07/20 22:54 150/91 03/07/20 22:48 76 34 40 03/07/20 22:45 82 28 150/91 (110) 100 03/07/20 22:30 76 29 147/82 (103) 100 03/07/20 22:15 85 29 143/85 (104) 100 03/07/20 22:00 86 29 148/97 (114) 100 03/07/20 22:00 148/97 03/07/20 21:45 79 28 149/85 (106) 100 03/07/20 21:30 85 27 148/87 (107) 100 03/07/20 21:15 82 26 148/85 (106) 100 03/07/20 21:00 82 25 148/85 (106) 100 03/07/20 21:00 148/85 03/07/20 20:45 89 24 147/84 (105) 100 03/07/20 20:30 87 30 148/83 (104) 100 03/07/20 20:15 87 30 141/84 (103) 100 03/07/20 20:00 85 03/07/20 20:00 40 03/07/20 20:00 141/84 03/07/20 20:00 Mechanical Ventilator 03/07/20 20:00 84 29 154/87 (109) 100 03/07/20 19:30 78 24 151/85 (107) 100 03/07/20 19:17 76 29 100 Mechanical Ventilator 40 83 32 40 03/07/20 19:15 76 26 148/89 (108) 100 03/07/20 19:00 81 28 150/90 (110) 100 03/07/20 19:00 150/90 03/07/20 18:29 90 21 142/76 (98) 100 03/07/20 18:00 87 21 147/86 (106) 100 03/07/20 18:00 147/86 03/07/20 17:30 97 14 152/88 (109) 100 03/07/20 17:00 84 28 133/78 (96) 100 03/07/20 17:00 133/78 03/07/20 16:30 91 28 130/75 (93) 100 03/07/20 16:15 97.6 89 29 130/79 (96) 100 03/07/20 16:00 40 03/07/20 16:00 Mechanical Ventilator 03/07/20 16:00 133/76 03/07/20 16:00 97.6 85 32 133/76 (95) 100 03/07/20 15:45 81 28 115/70 (85) 100 03/07/20 15:43 82 I&O Intake and Output 03/07/20 03/08/20 19:00 07:00 Intake Total 2885.40 ml 2617.93 ml Output Total 630 ml 120 ml Balance 2255.40 ml 2497.93 ml IV Total 2885.40 ml 2617.93 ml Output Urine Total 120 ml 120 ml Stool Total 10 ml 0 ml Gastric Drainage Total 500 ml Dressing: other Wound: other Cardiovascular: RSR Respiratory: decreased breath sounds Abdomen: soft, non-tender, present bowel sounds Extremities: no tenderness, no cyanosis Laboratory Tests Test 03/07/20 20:50 03/08/20 04:15 White Blood Count 14.7 K/UL (4.8-10.8) H 11.0 K/UL (4.8-10.8) H Red Blood Count 2.61 M/UL (4.70-6.10) L 2.42 M/UL (4.70-6.10) L Hemoglobin 8.4 G/DL (14.2-18.0) L 7.6 G/DL (14.2-18.0) L Hematocrit 24.6 % (42.0-52.0) L 21.8 % (42.0-52.0) L Mean Corpuscular Volume 94 FL (80-99) 90 FL (80-99) Mean Corpuscular Hemoglobin 32.3 PG (27.0-31.0) H 31.3 PG (27.0-31.0) H Mean Corpuscular Hemoglobin Concent 34.4 G/DL (32.0-36.0) 34.7 G/DL (32.0-36.0) Red Cell Distribution Width 14.3 % (11.6-14.8) 13.4 % (11.6-14.8) Platelet Count 123 K/UL (150-450) L 118 K/UL (150-450) L Mean Platelet Volume 5.8 FL (6.5-10.1) L 5.2 FL (6.5-10.1) L Neutrophils (%) (Auto) 83.7 % (45.0-75.0) H % (45.0-75.0) Lymphocytes (%) (Auto) 9.0 % (20.0-45.0) L % (20.0-45.0) Monocytes (%) (Auto) 6.6 % (1.0-10.0) % (1.0-10.0) Eosinophils (%) (Auto) 0.2 % (0.0-3.0) % (0.0-3.0) Basophils (%) (Auto) 0.5 % (0.0-2.0) % (0.0-2.0) Sodium Level 142 MMOL/L (136-145) Potassium Level 3.5 MMOL/L (3.5-5.1) Chloride Level 110 MMOL/L (98-107) H Carbon Dioxide Level 18 MMOL/L (21-32) L Anion Gap 14 mmol/L (5-15) Blood Urea Nitrogen 119 mg/dL (7-18) H Creatinine 3.4 MG/DL (0.55-1.30) H Estimat Glomerular Filtration Rate 17.7 mL/min (>60) Glucose Level 180 MG/DL (74-106) H Calcium Level 7.4 MG/DL (8.5-10.1) L Total Bilirubin 0.4 MG/DL (0.2-1.0) Aspartate Amino Transf (AST/SGOT) 17 U/L (15-37) Alanine Aminotransferase (ALT/SGPT) 20 U/L (12-78) Alkaline Phosphatase 64 U/L (46-116) Total Protein 5.4 G/DL (6.4-8.2) L Albumin 1.4 G/DL (3.4-5.0) L Globulin 4.0 g/dL Albumin/Globulin Ratio 0.3 (1.0-2.7) L Random Vancomycin Level 15.7 ug/mL Plan Problems: (1) Respiratory failure (2) GIB (gastrointestinal bleeding) Assessment & Plan: 79-year-old male with leukocytosis, anemia, NG tube inserted and bright blood identified. Plan for urgent EGD today. Protonix IV N.p.o. IV fluid resuscitation PRBC transfusion trend labs Care plan discussed with GI will await EGD findings Thank you for let me participate in patient's care will follow with recommendations EGD findings noted discussed with GI NG tube placed Continuous gastric irrigation and suction initiated plan for repeat scope soon (3) Aspiration pneumonia (4) Sepsis (5) ARF (acute renal failure) (6) HCAP (healthcare-associated pneumonia) (7) Dehydration (8) Hypokalemia (9) Hyperkalemia (10) Anemia (11) Decubitus skin ulcer Assessment & Plan: Pt presented on admission with contractures. Resolving full thickness pressure injury Sacrum and R buttocks. Hyperpigmentation with scarring noted with small open area that is moist and viable within injured field. darker skin tone without induration periwound. Resolving pressure injury R heel. Hyperpigmentation with small area of erythema within base of injury with loose callused and dry necrotic edges. Full thickness pressure injury R Hallux. Base of wound is dl with scattered slough. Bone is palpable. Dark, dry brown borders. Full thickness lateral and plantar R 1st metatarsal.Base of wound is 25% necrotic ,75% dl. An area of necrosis noted at nail matrix. L heel is boggy with non-blanching erythema. Tx.Plan: Apply Moisture Barrier Paste to Sacrum,R and L Buttocks. Cover with Optifoam drsgs. Change every 3 days and prn. Apply Betadine to R hallux and R 1st metatarsal. Cover with Optifoam drsg. Change every 3 days and prn. Apply Betadine to R heel. Cover R heel with Optifoam drsg. Change every 3 days and prn. Apply Cavilon Skin Barrier to L heel. Cover with Optifoam drsg. Change every 7 days and prn. Reposition at least every 2hours or as tolerated. Place pillow between knees. Off-load heels with pillow. 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
--- NOTE | 2020-03-08 15:47 | General Progress Note ---
Assessment/Plan Problem List: (1) GIB (gastrointestinal bleeding) ICD Codes: K92.2 - Gastrointestinal hemorrhage, unspecified SNOMED: 27865057 (2) Sepsis ICD Codes: A41.9 - Sepsis, unspecified organism SNOMED: 37168250 Qualifiers: Qualified Codes: A41.9 - Sepsis, unspecified organism; R65.20 - Severe sepsis without septic shock; N17.9 - Acute kidney failure, unspecified (3) Respiratory failure ICD Codes: J96.90 - Respiratory failure, unspecified, unspecified whether with hypoxia or hypercapnia SNOMED: 563595483 Qualifiers: Qualified Codes: J96.01 - Acute respiratory failure with hypoxia (4) Aspiration pneumonia ICD Codes: J69.0 - Pneumonitis due to inhalation of food and vomit SNOMED: 363346179 Qualifiers: Qualified Codes: O74.0 - Aspiration pneumonitis due to anesthesia during labor and delivery (5) HCAP (healthcare-associated pneumonia) ICD Codes: J18.9 - Pneumonia, unspecified organism SNOMED: 337869443, 390886641 (6) ARF (acute renal failure) ICD Codes: N17.9 - Acute kidney failure, unspecified SNOMED: 19083111, 434080347 Qualifiers: Qualified Codes: N17.9 - Acute kidney failure, unspecified Status: stable, unchanged Assessment/Plan: transfuse prbc as needed octreotide and protonix drip serial cbc pressors- wean off as able ivf iv abx vent support resp rx hold feeds sz rx repeaty endoscopy per GI full code critical grim prognosis d/w POA- out of town but returning today. requesting full code for now. will reassess when he returns to [place] later today. will consider DNR. Subjective ROS Limited/Unobtainable: Yes Constitutional: Reports: malaise, weakness HEENT: Reports: no symptoms Cardiovascular: Reports: no symptoms Respiratory: Reports: shortness of breath, sputum Gastrointestinal/Abdominal: Reports: blood in stool Genitourinary: Reports: no symptoms Neurologic/Psychiatric: Reports: pre-existing deficit, seizure Endocrine: Reports: no symptoms Hematologic/Lymphatic: Reports: anemia Allergies: Coded Allergies: No Known Allergies (Unverified , 02/23/12) All Systems: reviewed and negative except above Subjective no events. still with bleeding but less. per GI unable to visualized stomach due to large clot. decreased pressor requirements. on the vent. poorly responsive at baseline. no szs. Objective Last 24 Hour Vital Signs Date Time Temp Pulse Resp B/P (MAP) Pulse Ox O2 Delivery O2 Flow Rate FiO2 03/08/20 15:00 89 34 137/90 (106) 100 03/08/20 14:45 89 32 140/89 (106) 100 03/08/20 14:30 88 32 137/85 (102) 100 03/08/20 14:15 81 5 129/82 (98) 100 03/08/20 14:00 83 17 141/90 (107) 100 03/08/20 13:45 83 14 131/86 (101) 100 03/08/20 13:30 88 23 146/83 (104) 100 03/08/20 13:15 87 24 139/83 (101) 100 03/08/20 13:11 84 38 100 Mechanical Ventilator 40 83 38 40 03/08/20 13:00 148/96 03/08/20 13:00 87 35 148/96 (113) 03/08/20 12:45 145/90 03/08/20 12:45 81 34 145/90 (108) 100 03/08/20 12:30 81 31 160/90 (113) 100 03/08/20 12:30 160/90 03/08/20 12:15 166/93 03/08/20 12:15 84 32 166/93 (117) 100 03/08/20 12:00 40 03/08/20 12:00 166/93 03/08/20 12:00 Mechanical Ventilator 03/08/20 12:00 82 03/08/20 12:00 82 30 166/93 (117) 100 03/08/20 11:20 73 30 40 03/08/20 11:15 71 33 151/89 (109) 100 03/08/20 11:11 65 14 99 03/08/20 11:00 157/82 03/08/20 11:00 71 32 157/82 (107) 100 03/08/20 10:45 72 30 151/92 (111) 100 03/08/20 10:35 73 26 151/84 (106) 100 03/08/20 10:30 75 28 152/85 (107) 100 03/08/20 10:25 75 30 150/84 (106) 100 9/9/20 10:20 75 26 148/87 (107) 100 03/08/20 10:15 75 29 148/85 (106) 100 03/08/20 10:00 156/85 03/08/20 10:00 75 27 156/85 (108) 100 03/08/20 09:55 78 25 145/83 (103) 100 03/08/20 09:50 72 26 142/82 (102) 100 03/08/20 09:45 74 26 137/85 (102) 100 03/08/20 09:40 71 27 144/80 (101) 100 03/08/20 09:35 77 26 142/82 (102) 100 03/08/20 09:30 72 26 143/86 (105) 100 03/08/20 09:25 74 27 148/82 (104) 100 03/08/20 09:20 68 27 109/71 (84) 100 03/08/20 09:15 67 27 143/78 (99) 100 03/08/20 09:10 66 27 139/79 (99) 100 03/08/20 09:10 80 26 100 03/08/20 09:05 65 26 141/80 (100) 100 03/08/20 09:00 136/77 03/08/20 09:00 66 26 136/77 (96) 100 03/08/20 08:55 70 26 139/80 (99) 100 03/08/20 08:54 71 26 137/84 (101) 100 03/08/20 08:50 71 26 137/80 (99) 100 03/08/20 08:49 71 26 135/81 (99) 100 03/08/20 08:46 73 26 137/80 (99) 100 03/08/20 08:45 72 26 136/80 (98) 100 03/08/20 08:36 77 24 122/75 (91) 100 03/08/20 08:35 76 26 100 03/08/20 08:33 77 26 139/84 (102) 100 03/08/20 08:32 76 26 139/86 (103) 100 03/08/20 08:31 75 25 140/83 (102) 100 03/08/20 08:28 78 23 138/80 (99) 100 03/08/20 08:27 79 26 141/81 (101) 100 9/9/20 08:25 84 25 143/81 (101) 100 03/08/20 08:23 94 26 142/84 (103) 100 03/08/20 08:22 99 19 142/85 (104) 100 03/08/20 08:18 98 28 147/89 (108) 97 03/08/20 08:15 79 14 154/91 (112) 100 03/08/20 08:14 75 24 156/91 (112) 100 03/08/20 08:11 77 27 154/86 (108) 100 03/08/20 08:10 74 26 161/86 (111) 100 03/08/20 08:10 74 26 161/86 (111) 100 03/08/20 08:07 75 21 152/78 (102) 100 03/08/20 08:05 76 24 100 03/08/20 08:00 80 03/08/20 08:00 Mechanical Ventilator 03/08/20 08:00 40 03/08/20 08:00 158/90 03/08/20 08:00 97.9 82 23 158/90 (112) 100 03/08/20 07:30 79 16 152/85 (107) 100 03/08/20 07:22 104 28 100 Mechanical Ventilator 40 99 28 40 03/08/20 07:00 74 22 158/82 (107) 100 03/08/20 07:00 158/82 03/08/20 06:15 73 25 154/89 (110) 100 03/08/20 06:00 87 21 142/90 (107) 91 03/08/20 06:00 154/89 03/08/20 05:45 77 28 150/91 (110) 100 03/08/20 05:30 73 29 169/88 (115) 100 03/08/20 05:15 77 26 154/90 (111) 100 03/08/20 05:00 154/90 03/08/20 05:00 91 26 150/90 (110) 100 03/08/20 04:45 91 26 141/89 (106) 100 03/08/20 04:30 89 31 161/94 (116) 100 03/08/20 04:15 79 26 154/90 (111) 100 03/08/20 04:00 40 03/08/20 04:00 82 03/08/20 04:00 154/90 03/08/20 04:00 82 26 157/85 (109) 100 03/08/20 04:00 Mechanical Ventilator 03/08/20 03:45 85 26 156/89 (111) 100 03/08/20 03:30 82 28 143/89 (107) 100 03/08/20 03:15 90 28 160/87 (111) 100 03/08/20 03:00 88 18 146/88 (107) 100 03/08/20 03:00 160/87 03/08/20 02:50 81 30 40 03/08/20 02:45 93 18 166/94 (118) 100 03/08/20 02:30 84 28 150/87 (108) 100 03/08/20 02:15 92 22 145/87 (106) 100 03/08/20 02:00 88 22 137/72 (93) 100 03/08/20 01:45 88 26 141/83 (102) 100 03/08/20 01:30 85 26 135/87 (103) 100 03/08/20 01:15 94 25 146/86 (106) 91 03/08/20 01:00 91 25 155/92 (113) 100 03/08/20 01:00 146/86 03/08/20 00:59 86 30 100 Mechanical Ventilator 40 83 26 40 03/08/20 00:45 84 29 144/85 (104) 100 03/08/20 00:30 94 31 150/85 (106) 100 03/08/20 00:15 75 28 147/88 (107) 100 03/08/20 00:00 97.7 85 29 155/84 (107) 100 03/08/20 00:00 85 03/08/20 00:00 40 03/08/20 00:00 147/88 03/08/20 00:00 Mechanical Ventilator 03/07/20 23:45 80 30 154/88 (110) 100 03/07/20 23:30 78 29 141/87 (105) 100 03/07/20 23:15 82 30 154/88 (110) 100 03/07/20 23:00 78 28 146/86 (106) 100 03/07/20 23:00 154/88 03/07/20 22:54 150/91 03/07/20 22:48 76 34 40 03/07/20 22:45 82 28 150/91 (110) 100 03/07/20 22:30 76 29 147/82 (103) 100 03/07/20 22:15 85 29 143/85 (104) 100 03/07/20 22:00 86 29 148/97 (114) 100 03/07/20 22:00 148/97 03/07/20 21:45 79 28 149/85 (106) 100 03/07/20 21:30 85 27 148/87 (107) 100 03/07/20 21:15 82 26 148/85 (106) 100 03/07/20 21:00 82 25 148/85 (106) 100 03/07/20 21:00 148/85 03/07/20 20:45 89 24 147/84 (105) 100 03/07/20 20:30 87 30 148/83 (104) 100 03/07/20 20:15 87 30 141/84 (103) 100 03/07/20 20:00 85 03/07/20 20:00 40 03/07/20 20:00 141/84 03/07/20 20:00 Mechanical Ventilator 03/07/20 20:00 84 29 154/87 (109) 100 03/07/20 19:30 78 24 151/85 (107) 100 03/07/20 19:17 76 29 100 Mechanical Ventilator 40 83 32 40 03/07/20 19:15 76 26 148/89 (108) 100 03/07/20 19:00 81 28 150/90 (110) 100 03/07/20 19:00 150/90 03/07/20 18:29 90 21 142/76 (98) 100 03/07/20 18:00 87 21 147/86 (106) 100 03/07/20 18:00 147/86 03/07/20 17:30 97 14 152/88 (109) 100 03/07/20 17:00 84 28 133/78 (96) 100 03/07/20 17:00 133/78 03/07/20 16:30 91 28 130/75 (93) 100 03/07/20 16:15 97.6 89 29 130/79 (96) 100 03/07/20 16:00 40 03/07/20 16:00 Mechanical Ventilator 9/8/20 16:00 133/76 03/07/20 16:00 97.6 85 32 133/76 (95) 100 03/07/20 15:45 81 28 115/70 (85) 100 Intake and Output 03/07/20 03/08/20 18:59 06:59 Intake Total 2885.00 ml 2568.33 ml Output Total 130 ml 620 ml Balance 2755.00 ml 1948.33 ml IV Total 2885.00 ml 2568.33 ml Output Urine Total 120 ml 120 ml Stool Total 10 ml 0 ml Gastric Drainage Total 500 ml Laboratory Tests 03/07/20 20:50: White Blood Count 14.7H, Red Blood Count 2.61L, Hemoglobin 8.4L, Hematocrit 24.6L, Mean Corpuscular Volume 94, Mean Corpuscular Hemoglobin 32.3H, Mean Corpuscular Hemoglobin Concent 34.4, Red Cell Distribution Width 14.3, Platelet Count 123L, Mean Platelet Volume 5.8L, Neutrophils (%) (Auto) 83.7H, Lymphocytes (%) (Auto) 9.0L, Monocytes (%) (Auto) 6.6, Eosinophils (%) (Auto) 0.2, Basophils (%) (Auto) 0.5 03/08/20 04:15: White Blood Count 11.0H, Red Blood Count 2.42L, Hemoglobin 7.6L, Hematocrit 21.8L, Mean Corpuscular Volume 90, Mean Corpuscular Hemoglobin 31.3H, Mean Corpuscular Hemoglobin Concent 34.7, Red Cell Distribution Width 13.4, Platelet Count 118L, Mean Platelet Volume 5.2L, Neutrophils (%) (Auto) , Lymphocytes (%) (Auto) , Monocytes (%) (Auto) , Eosinophils (%) (Auto) , Basophils (%) (Auto) , Sodium Level 142, Potassium Level 3.5, Chloride Level 110H, Carbon Dioxide Level 18L, Anion Gap 14, Blood Urea Nitrogen 119H, Creatinine 3.4H, Estimat Glomerular Filtration Rate 17.7, Glucose Level 180H, Calcium Level 7.4L, Total Bilirubin 0.4, Aspartate Amino Transf (AST/SGOT) 17, Alanine Aminotransferase ( ALT/SGPT) 20, Alkaline Phosphatase 64, Total Protein 5.4L, Albumin 1.4L, Globulin 4.0, Albumin/Globulin Ratio 0.3L, Random Vancomycin Level 15.7 Height (Feet): 5 Height (Inches): 7.00 Weight (Pounds): 129 Objective General Appearance: WD/WN, cachetic, thin EENT: normal ENT inspection Neck: non-tender, normal alignment, supple Cardiovascular: normal rate, regular rhythm Respiratory/Chest: chest wall non-tender, lungs clear, normal breath sounds, no respiratory distress, no accessory muscle use Abdomen: normal bowel sounds, non tender, soft, no organomegaly, no mass Edema: no edema noted Arm (L), no edema noted Arm (R) Neurologic: disoriented, unresponsive, aphasia Skin: normal pigmentation Lymphatic: normal anterior cervical (L), normal anterior cervical (R) Jimi Tellez MD Mar 08, 2020 15:47
--- NOTE | 2020-03-08 15:53 | Diagnostic Imaging Report ---
Indication: Post nasogastric tube placement Technique: Supine view of the abdomen Comparison: 03/07/2020 Findings: Interim placement of a nasogastric tube, tip of which is coiled in the expected region of the gastric antrum. Markedly distended colon is seen in the right upper quadrant, either proximal transverse colon or sigmoid, measures 13.8 cm in diameter and appears more dilated than on the previous study. Diffusely mildly dilated gas-filled small bowel loops are also noted. Left groin central venous catheter is again noted. Impression: Increasing distended right upper quadrant colon segment, either proximal transverse colon or sigmoid. Suspect functional, but the possibility of downstream obstruction or closed loop obstruction should also be considered. Consider CT for further evaluation Apparent satisfactory position of nasogastric tube Findings phoned to Dr. Geronimo at the time of interpretation
[2020-03-08] MEDS ORDERED: Sodium Bicarbonate 100 ML in D5 1/2NS 1,000 ML IV SCH (16:00)
[2020-03-08] MEDS: Sodium Bicarbonate 100 ML in D5 1/2NS 1,000 ML IV SCH (16:01)
--- NOTE | 2020-03-08 17:52 | Critical Care Progress Note ---
Assessment/Plan Assessment/Plan Upper GI bleed Anemia due to acute blood loss H/o GERD, previous G tube Chronic Tracheostomy, Respiratory failure with elevatedCO2 Aspiration pneumonia Sepsis Renal insufficiency, hyperkalemia, metabolic acidosis Previous Pseudomonal Pneumonia H/o Paroxysmal Atrial Fibrillation Diabetes CRI Anemia s/p transfusion Prev CVA Chronic encephalopathy Seizure history Hypothyroidism PLAN care noted IV antibiotics and cultures respiratory care as is Ventilatory support SNF meds supportive care repeat EGD suction no wean oxygen therapy prognosis poor for recovery repeat transfusion as needed full code medications/laboratory data/nursing notes/ICU care reviewed in detail note reviewed and edited care discussed with RN and RT ICU time spent >40 minutes Critical Care - Subjective Interval Events: care noted EGD noted d/w gi ICU care reviewed labs improved ROS Limited/Unobtainable: Yes Condition: critical EKG Rhythm: Sinus Rhythm Residuals: minimal Tube Feeding Tolerated: yes I&O: Intake and Output 03/07/20 03/08/20 19:00 07:00 Intake Total 2885.40 ml 2617.93 ml Output Total 630 ml 120 ml Balance 2255.40 ml 2497.93 ml IV Total 2885.40 ml 2617.93 ml Output Urine Total 120 ml 120 ml Stool Total 10 ml 0 ml Gastric Drainage Total 500 ml Critical Care - Objective Last 24 Hour Vital Signs Date Time Temp Pulse Resp B/P (MAP) Pulse Ox O2 Delivery O2 Flow Rate FiO2 03/08/20 17:00 84 23 138/83 (101) 100 03/08/20 16:00 98.0 86 28 129/88 (102) 100 03/08/20 16:00 Mechanical Ventilator 03/08/20 16:00 85 03/08/20 16:00 40 03/08/20 15:45 96 26 126/87 (100) 100 03/08/20 15:30 94 28 132/93 (106) 100 03/08/20 15:15 94 32 148/92 (110) 100 03/08/20 15:15 85 37 40 03/08/20 15:00 89 34 137/90 (106) 100 03/08/20 14:45 89 32 140/89 (106) 100 03/08/20 14:30 88 32 137/85 (102) 100 03/08/20 14:15 81 5 129/82 (98) 100 03/08/20 14:00 141/90 03/08/20 14:00 83 17 141/90 (107) 100 03/08/20 13:45 83 14 131/86 (101) 100 03/08/20 13:30 88 23 146/83 (104) 100 03/08/20 13:15 87 24 139/83 (101) 100 03/08/20 13:11 84 38 100 Mechanical Ventilator 40 83 38 40 03/08/20 13:00 148/96 03/08/20 13:00 87 35 148/96 (113) 100 03/08/20 12:45 145/90 03/08/20 12:45 81 34 145/90 (108) 100 03/08/20 12:30 81 31 160/90 (113) 100 03/08/20 12:30 160/90 03/08/20 12:15 166/93 03/08/20 12:15 84 32 166/93 (117) 100 03/08/20 12:00 40 03/08/20 12:00 166/93 03/08/20 12:00 Mechanical Ventilator 03/08/20 12:00 82 03/08/20 12:00 82 30 166/93 (117) 100 03/08/20 11:20 73 30 40 03/08/20 11:15 71 33 151/89 (109) 100 03/08/20 11:11 65 14 99 03/08/20 11:00 157/82 03/08/20 11:00 71 32 157/82 (107) 100 03/08/20 10:45 72 30 151/92 (111) 100 03/08/20 10:35 73 26 151/84 (106) 03/08/20 10:30 75 28 152/85 (107) 100 03/08/20 10:25 75 30 150/84 (106) 100 03/08/20 10:20 75 26 148/87 (107) 100 03/08/20 10:15 75 29 148/85 (106) 100 03/08/20 10:00 156/85 03/08/20 10:00 75 27 156/85 (108) 100 03/08/20 09:55 78 25 145/83 (103) 100 03/08/20 09:50 72 26 142/82 (102) 100 03/08/20 09:45 74 26 137/85 (102) 100 03/08/20 09:40 71 27 144/80 (101) 100 03/08/20 09:35 77 26 142/82 (102) 100 03/08/20 09:30 72 26 143/86 (105) 100 03/08/20 09:25 74 27 148/82 (104) 100 03/08/20 09:20 68 27 109/71 (84) 100 03/08/20 09:15 67 27 143/78 (99) 100 03/08/20 09:10 66 27 139/79 (99) 100 03/08/20 09:10 80 26 100 03/08/20 09:05 65 26 141/80 (100) 100 03/08/20 09:00 136/77 03/08/20 09:00 66 26 136/77 (96) 100 03/08/20 08:55 70 26 139/80 (99) 100 03/08/20 08:54 71 26 137/84 (101) 100 03/08/20 08:50 71 26 137/80 (99) 100 03/08/20 08:49 71 26 135/81 (99) 100 03/08/20 08:46 73 26 137/80 (99) 100 03/08/20 08:45 72 26 136/80 (98) 100 03/08/20 08:36 77 24 122/75 (91) 100 03/08/20 08:35 76 26 100 03/08/20 08:33 77 26 139/84 (102) 100 03/08/20 08:32 76 26 139/86 (103) 100 03/08/20 08:31 75 25 140/83 (102) 100 03/08/20 08:28 78 23 138/80 (99) 100 03/08/20 08:27 79 26 141/81 (101) 100 03/08/20 08:25 84 25 143/81 (101) 100 03/08/20 08:23 94 26 142/84 (103) 100 03/08/20 08:22 99 19 142/85 (104) 100 03/08/20 08:18 98 28 147/89 (108) 97 03/08/20 08:15 79 14 154/91 (112) 100 03/08/20 08:14 75 24 156/91 (112) 100 03/08/20 08:11 77 27 154/86 (108) 100 03/08/20 08:10 74 26 161/86 (111) 100 03/08/20 08:10 74 26 161/86 (111) 100 03/08/20 08:07 75 21 152/78 (102) 100 03/08/20 08:05 76 24 100 03/08/20 08:00 80 03/08/20 08:00 Mechanical Ventilator 03/08/20 08:00 40 03/08/20 08:00 158/90 03/08/20 08:00 97.9 82 23 158/90 (112) 100 03/08/20 07:30 79 16 152/85 (107) 100 03/08/20 07:22 104 28 100 Mechanical Ventilator 40 99 28 40 03/08/20 07:00 74 22 158/82 (107) 100 03/08/20 07:00 158/82 03/08/20 06:15 73 25 154/89 (110) 100 03/08/20 06:00 87 21 142/90 (107) 91 03/08/20 06:00 154/89 03/08/20 05:45 77 28 150/91 (110) 100 03/08/20 05:30 73 29 169/88 (115) 100 03/08/20 05:15 77 26 154/90 (111) 100 03/08/20 05:00 154/90 03/08/20 05:00 91 26 150/90 (110) 100 03/08/20 04:45 91 26 141/89 (106) 100 03/08/20 04:30 89 31 161/94 (116) 100 03/08/20 04:15 79 26 154/90 (111) 100 03/08/20 04:00 40 03/08/20 04:00 82 03/08/20 04:00 154/90 03/08/20 04:00 82 26 157/85 (109) 100 03/08/20 04:00 Mechanical Ventilator 03/08/20 03:45 85 26 156/89 (111) 100 03/08/20 03:30 82 28 143/89 (107) 100 03/08/20 03:15 90 28 160/87 (111) 100 03/08/20 03:00 88 18 146/88 (107) 100 03/08/20 03:00 160/87 03/08/20 02:50 81 30 40 03/08/20 02:45 93 18 166/94 (118) 100 03/08/20 02:30 84 28 150/87 (108) 100 03/08/20 02:15 92 22 145/87 (106) 100 03/08/20 02:00 88 22 137/72 (93) 100 03/08/20 01:45 88 26 141/83 (102) 100 03/08/20 01:30 85 26 135/87 (103) 100 03/08/20 01:15 94 25 146/86 (106) 91 03/08/20 01:00 91 25 155/92 (113) 100 03/08/20 01:00 146/86 03/08/20 00:59 86 30 100 Mechanical Ventilator 40 83 26 40 03/08/20 00:45 84 29 144/85 (104) 100 03/08/20 00:30 94 31 150/85 (106) 100 03/08/20 00:15 75 28 147/88 (107) 100 03/08/20 00:00 97.7 85 29 155/84 (107) 100 03/08/20 00:00 85 03/08/20 00:00 40 03/08/20 00:00 147/88 03/08/20 00:00 Mechanical Ventilator 03/07/20 23:45 80 30 154/88 (110) 100 03/07/20 23:30 78 29 141/87 (105) 100 03/07/20 23:15 82 30 154/88 (110) 100 03/07/20 23:00 78 28 146/86 (106) 100 03/07/20 23:00 154/88 03/07/20 22:54 150/91 03/07/20 22:48 76 34 40 03/07/20 22:45 82 28 150/91 (110) 100 03/07/20 22:30 76 29 147/82 (103) 100 03/07/20 22:15 85 29 143/85 (104) 100 03/07/20 22:00 86 29 148/97 (114) 100 03/07/20 22:00 148/97 03/07/20 21:45 79 28 149/85 (106) 100 03/07/20 21:30 85 27 148/87 (107) 100 03/07/20 21:15 82 26 148/85 (106) 100 03/07/20 21:00 82 25 148/85 (106) 100 03/07/20 21:00 148/85 03/07/20 20:45 89 24 147/84 (105) 100 03/07/20 20:30 87 30 148/83 (104) 100 03/07/20 20:15 87 30 141/84 (103) 100 03/07/20 20:00 85 03/07/20 20:00 40 03/07/20 20:00 141/84 03/07/20 20:00 Mechanical Ventilator 03/07/20 20:00 84 29 154/87 (109) 100 03/07/20 19:30 78 24 151/85 (107) 100 03/07/20 19:17 76 29 100 Mechanical Ventilator 40 83 32 40 03/07/20 19:15 76 26 148/89 (108) 100 03/07/20 19:00 81 28 150/90 (110) 100 03/07/20 19:00 150/90 03/07/20 18:29 90 21 142/76 (98) 100 03/07/20 18:00 87 21 147/86 (106) 100 03/07/20 18:00 147/86 Labs: Labs Test 03/05/20 18:35 03/06/20 07:42 03/06/20 07:46 03/06/20 15:38 White Blood Count 22.4 K/UL (4.8-10.8) 40.2 K/UL (4.8-10.8) Red Blood Count 1.99 M/UL (4.70-6.10) 2.40 M/UL (4.70-6.10) Hemoglobin 6.7 G/DL (14.2-18.0) 7.6 G/DL (14.2-18.0) Hematocrit 21.2 % (42.0-52.0) 23.2 % (42.0-52.0) Mean Corpuscular Volume 107 FL (80-99) 97 FL (80-99) Mean Corpuscular Hemoglobin 33.9 PG (27.0-31.0) 31.8 PG (27.0-31.0) Mean Corpuscular Hemoglobin Concent 31.8 G/DL (32.0-36.0) 33.0 G/DL (32.0-36.0) Red Cell Distribution Width 14.3 % (11.6-14.8) 14.2 % (11.6-14.8) Platelet Count 233 K/UL (150-450) 349 K/UL (150-450) Mean Platelet Volume 5.9 FL (6.5-10.1) 5.2 FL (6.5-10.1) Neutrophils (%) (Auto) % (45.0-75.0) % (45.0-75.0) Lymphocytes (%) (Auto) % (20.0-45.0) % (20.0-45.0) Monocytes (%) (Auto) % (1.0-10.0) % (1.0-10.0) Eosinophils (%) (Auto) % (0.0-3.0) % (0.0-3.0) Basophils (%) (Auto) % (0.0-2.0) % (0.0-2.0) Differential Total Cells Counted 100 100 Neutrophils % (Manual) 89 % (45-75) 92 % (45-75) Lymphocytes % (Manual) 5 % (20-45) 2 % (20-45) Monocytes % (Manual) 4 % (1-10) 4 % (1-10) Eosinophils % (Manual) 2 % (0-3) 0 % (0-3) Basophils % (Manual) 0 % (0-2) 0 % (0-2) Band Neutrophils 0 % (0-8) 2 % (0-8) Platelet Estimate Adequate Adequate Platelet Morphology Normal Normal Hypochromasia 3+ 3+ Anisocytosis 3+ 1+ Microcytosis 1+ Macrocytosis Occasional Arterial Blood pH 7.268 (7.350-7.450) 7.276 (7.350-7.450) Arterial Blood Partial Pressure CO2 29.7 mmHg (35.0-45.0) 32.3 mmHg (35.0-45.0) Arterial Blood Partial Pressure O2 94.4 mmHg (75.0-100.0) 136.2 mmHg (75.0-100.0) Arterial Blood HCO3 13.3 mmol/L (22.0-26.0) 14.7 mmol/L (22.0-26.0) Arterial Blood Oxygen Saturation 96.3 % (95-100) 98.2 % (95-100) Arterial Blood Base Excess -12.5 (-2-2) -11.1 (-2-2) Urbano Test Positive Positive Spherocytes 2+ Prothrombin Time 14.0 SEC (9.30-11.50) Prothromb Time International Ratio 1.3 (0.9-1.1) Activated Partial Thromboplast Time 36 SEC (23-33) Sodium Level 122 MMOL/L (136-145) Potassium Level 4.8 MMOL/L (3.5-5.1) Chloride Level 100 MMOL/L (98-107) Carbon Dioxide Level 8 MMOL/L (21-32) Blood Urea Nitrogen 173 mg/dL (7-18) Creatinine 4.1 MG/DL (0.55-1.30) Estimat Glomerular Filtration Rate 14.2 mL/min (>60) Glucose Level 204 MG/DL (74-106) Calcium Level 9.5 MG/DL (8.5-10.1) Total Bilirubin 0.4 MG/DL (0.2-1.0) Aspartate Amino Transf (AST/SGOT) 22 U/L (15-37) Alanine Aminotransferase (ALT/SGPT) 33 U/L (12-78) Alkaline Phosphatase 96 U/L (46-116) Total Protein 6.4 G/DL (6.4-8.2) Albumin 1.5 G/DL (3.4-5.0) Globulin 4.9 g/dL Albumin/Globulin Ratio 0.3 (1.0-2.7) Random Vancomycin Level 12.5 ug/mL Test 03/06/20 19:15 03/07/20 04:05 03/07/20 20:50 03/08/20 04:15 White Blood Count 28.5 K/UL (4.8-10.8) 16.6 K/UL (4.8-10.8) 14.7 K/UL (4.8-10.8) 11.0 K/UL (4.8-10.8) Red Blood Count 2.08 M/UL (4.70-6.10) 2.14 M/UL (4.70-6.10) 2.61 M/UL (4.70-6.10) 2.42 M/UL (4.70-6.10) Hemoglobin 6.8 G/DL (14.2-18.0) 6.5 G/DL (14.2-18.0) 8.4 G/DL (14.2-18.0) 7.6 G/DL (14.2-18.0) Hematocrit 19.9 % (42.0-52.0) 19.5 % (42.0-52.0) 24.6 % (42.0-52.0) 21.8 % (42.0-52.0) Mean Corpuscular Volume 96 FL (80-99) 91 FL (80-99) 94 FL (80-99) 90 FL (80- 99) Mean Corpuscular Hemoglobin 32.8 PG (27.0-31.0) 30.6 PG (27.0-31.0) 32.3 PG (27.0-31.0) 31.3 PG (27.0-31.0) Mean Corpuscular Hemoglobin Concent 34.3 G/DL (32.0-36.0) 33.6 G/DL (32.0-36.0) 34.4 G/DL (32.0-36.0) 34.7 G/DL (32.0-36.0) Red Cell Distribution Width 15.1 % (11.6-14.8) 14.5 % (11.6-14.8) 14.3 % (11.6-14.8) 13.4 % (11.6-14.8) Platelet Count 237 K/UL (150-450) 155 K/UL (150-450) 123 K/UL (150-450) 118 K/UL (150-450) Mean Platelet Volume 5.6 FL (6.5-10.1) 5.1 FL (6.5-10.1) 5.8 FL (6.5-10.1) 5.2 FL (6.5-10.1) Neutrophils (%) (Auto) % (45.0-75.0) % (45.0-75.0) 83.7 % (45.0-75.0) % (45.0-75.0) Lymphocytes (%) (Auto) % (20.0-45.0) % (20.0-45.0) 9.0 % (20.0-45.0) % (20.0-45.0) Monocytes (%) (Auto) % (1.0-10.0) % (1.0-10.0) 6.6 % (1.0-10.0) % (1.0-10.0) Eosinophils (%) (Auto) % (0.0-3.0) % (0.0-3.0) 0.2 % (0.0-3.0) % (0.0-3.0) Basophils (%) (Auto) % (0.0-2.0) % (0.0-2.0) 0.5 % (0.0-2.0) % (0.0-2.0) Differential Total Cells Counted 100 100 Neutrophils % (Manual) 90 % (45-75) 90 % (45-75) Lymphocytes % (Manual) 4 % (20-45) 6 % (20-45) Monocytes % (Manual) 5 % (1-10) 4 % (1-10) Eosinophils % (Manual) 1 % (0-3) 0 % (0-3) Basophils % (Manual) 0 % (0-2) 0 % (0-2) Band Neutrophils 0 % (0-8) 0 % (0-8) Platelet Estimate Adequate Adequate Platelet Morphology Normal Normal Hypochromasia 3+ 1+ Anisocytosis 1+ 1+ Sodium Level 138 MMOL/L (136-145) 142 MMOL/L (136-145) Potassium Level 4.0 MMOL/L (3.5-5.1) 3.5 MMOL/L (3.5-5.1) Chloride Level 108 MMOL/L (98-107) 110 MMOL/L (98-107) Carbon Dioxide Level 18 MMOL/L (21-32) 18 MMOL/L (21-32) Anion Gap 12 mmol/L (5-15) 14 mmol/L (5-15) Blood Urea Nitrogen 130 mg/dL (7-18) 119 mg/dL (7-18) Creatinine 3.6 MG/DL (0.55-1.30) 3.4 MG/DL (0.55-1.30) Estimat Glomerular Filtration Rate 16.5 mL/min (>60) 17.7 mL/min (>60) Glucose Level 196 MG/DL (74-106) 180 MG/DL (74-106) Calcium Level 8.0 MG/DL (8.5-10.1) 7.4 MG/DL (8.5-10.1) Phosphorus Level 3.8 MG/DL (2.5-4.9) Magnesium Level 1.9 MG/DL (1.8-2.4) Total Bilirubin 0.3 MG/DL (0.2-1.0) 0.4 MG/DL (0.2-1.0) Aspartate Amino Transf (AST/SGOT) 16 U/L (15-37) 17 U/L (15-37) Alanine Aminotransferase (ALT/SGPT) 19 U/L (12-78) 20 U/L (12-78) Alkaline Phosphatase 58 U/L (46-116) 64 U/L (46-116) Troponin I 0.148 ng/mL (0.000-0.056) Total Protein 5.1 G/DL (6.4-8.2) 5.4 G/DL (6.4-8.2) Albumin 1.2 G/DL (3.4-5.0) 1.4 G/DL (3.4-5.0) Globulin 3.9 g/dL 4.0 g/dL Albumin/Globulin Ratio 0.3 (1.0-2.7) 0.3 (1.0-2.7) Thyroid Stimulating Hormone (TSH) 2.708 uiU/mL (0.358-3.740) Random Vancomycin Level 15.7 ug/mL Objective: WDWN NAD chronically ill reduced breath sounds bilaterally without rhonchi or wheeze [id number] without MRG NABS nontender not distended; GT no CCE nonfocal contracted reviewed and edited Accucheck: 108 Mansoor Martinez MD Mar 08, 2020 17:52
[2020-03-08 18:56] LABS: HEMATOCRIT 20.4 % (42.0-52.0); HEMOGLOBIN 7.1 G/DL (14.2-18.0); MEAN CORPUSCULAR VOLUME 93 FL (80-99); PLATELET COUNT 111 K/UL (150-450); RED BLOOD COUNT 2.19 M/UL (4.70-6.10)
[2020-03-08] MEDS: Dyna-Hex 2% Top Sol 2oz TOPIC SCH (19:59)
[2020-03-08] MEDS ORDERED: Epoetin Alfa-EPBX (NON ESRD) 3000 units/ml vial SUBQ ONE (21:00)
[2020-03-08] MEDS ORDERED: Epoetin Alfa-EPBX (NON ESRD)4000 units/ml vial SUBQ SCH (21:00)
[2020-03-08] MEDS ORDERED: Epoetin Alfa-EPBX (NON ESRD) 3000 units/ml vial SUBQ SCH (21:00)
[2020-03-08] MEDS ORDERED: Epoetin Alfa-EPBX (NON ESRD)10,000 unit/ml vial SUBQ SCH (21:00)
[2020-03-08] MEDS ORDERED: Epoetin Alfa-EPBX (NON ESRD) 2000 units/ml vial SUBQ ONE (21:00)
--- NOTE | 2020-03-08 23:32 | Endoscopy Procedure Note ---
Endoscopy Procedure Note General Indication for Procedure: UGIB Procedures Performed: EGD Operative Findings/Diagnosis: large blood clot in fundus, (+) GT, esophagitis Specimen: none Estimated Blood Loss: minimal Anesthesia Anesthesiologist: Fatimah Bah Anesthesia: MAC Inserted Devices Implant(s) used?: No GI Core Measures 50 yrs or older w/o bx or poly: Not Applicable 10yrs. F/U recommended: Not Applicable Clive Kuo MD Mar 08, 2020 23:32
--- NOTE | 2020-03-08 23:34 | Brief Operative Note ---
Immediate Post Operative Note Operative Note Chief Complaint: GIB Pre-op Diagnosis: gib Procedure: EGD Post-op Diagnosis: large blood clot in fundus, (+) GT, esophagitis Surgeon: marcelo Anesthesiologist: Chio Austin Anesthesia: MAC Specimen: none Complications: none Condition: stable Fluids: per anesthesia Estimated Blood Loss: none Drains: none Implant(s) used?: No Clive Kuo MD Mar 08, 2020 23:34
[2020-03-09] VITALS (58 sets, daily range): BP systolic 108–163; BP diastolic 68–104
--- NOTE | 2020-03-09 00:45 | Operative Note - Dictated ---
DATE OF OPERATION: 03/08/2020 PROCEDURE: Upper gastrointestinal endoscopy. SURGEON: Clive Kuo M.D. ANESTHESIA: Please see the separate anesthesiologist notes for details. PRE-ENDOSCOPIC DIAGNOSIS: Upper gastrointestinal bleeding. POST-ENDOSCOPIC DIAGNOSES: 1. Large clot in the fundus of the stomach, making visualization not possible. 2. Mild erosive esophagitis. 3. Unable to identify the source of bleeding due to large blood clot. DESCRIPTION OF PROCEDURE: The procedure, its risks, indications, alternatives, and possible complications were explained to the patient's [id number] and informed consent was obtained. The patient was then sedated in the supine position. A diagnostic upper endoscope was introduced into the oropharynx and advanced to the duodenum. The endoscope was then gradually withdrawn. The mucosa was examined carefully. Examination of the upper gastrointestinal mucosa revealed a large solid blood clot in the proximal stomach, which could not be suctioned through the diagnostic or therapeutic endoscope. The gastrostomy tube was in good position. The examination of the esophagus showed some erosive changes, which were mild. The antrum and the duodenum were unremarkable. Despite multiple efforts, to blood clot could not be manipulated or removed through suction and, therefore, the endoscope was removed and the patient was left to recovery in good condition. Complications none. SPECIMENS: This patient has had recent significant upper gastrointestinal bleeding with a large blood clot in the stomach. Examination can be repeated after some Reglan dosing and lavaging in hope of a better visualization. This will be discussed with the patient's durable power of admitted attorneys. RECOMMENDATIONS: 1. Keep the patient NPO. 2. Reglan around the clock. 3. Continue proton pump inhibitor. 4. We will possibly repeat endoscopy tomorrow. Thank you for asking me to participate in the care of this patient. Clive Kuo M.D. DR: MUMTAZ JOB#: [id number] CC:
[2020-03-09] MEDS: Sodium Bicarbonate 100 ML in D5 1/2NS 1,000 ML IV SCH ×4 (00:59→18:36)
[2020-03-09] MEDS: Albuterol/Ipratropium 3ml neb HHN SCH ×4 (01:27→19:17)
--- NOTE | 2020-03-09 02:04 | Cardiology Progress Note ---
Subjective DATE OF SERVICE: Mar 08, 2020 Remains in critical condition with guarded prognosis Has trach with mod secretions - on vent support S/P EGD - Ulcer with blood noted; no intervention performed, and repeat EGD planned tomorrow. Monitor: Sinus tachycardia Hypotensive and requiring pressor support. Objective Last 24 Hour Vital Signs Date Time Temp Pulse Resp B/P (MAP) Pulse Ox O2 Delivery O2 Flow Rate FiO2 03/09/20 01:27 98 40 100 Mechanical Ventilator 40 03/08/20 23:30 93 37 149/91 (110) 100 03/08/20 23:17 97 37 40 03/08/20 23:15 99 16 149/90 (109) 100 03/08/20 23:00 92 34 149/89 (109) 100 03/08/20 22:45 93 28 146/85 (105) 100 03/08/20 22:30 94 21 144/87 (106) 100 03/08/20 22:15 89 30 140/85 (103) 100 03/08/20 22:00 90 24 140/85 (103) 100 03/08/20 21:45 92 30 139/87 (104) 100 03/08/20 21:30 91 33 136/85 (102) 100 03/08/20 21:15 96 35 141/82 (101) 100 03/08/20 21:00 95 33 137/84 (101) 100 03/08/20 20:45 97 35 136/86 (103) 100 03/08/20 20:30 87 28 148/93 (111) 100 03/08/20 20:15 84 26 137/85 (102) 100 03/08/20 20:00 84 03/08/20 20:00 Mechanical Ventilator 03/08/20 20:00 40 03/08/20 20:00 84 23 136/87 (103) 100 03/08/20 19:45 85 27 137/84 (101) 100 03/08/20 19:30 83 31 131/85 (100) 100 03/08/20 19:30 86 39 100 Mechanical Ventilator 40 88 40 40 03/08/20 19:15 82 25 136/82 (100) 100 03/08/20 19:00 88 26 139/87 (104) 100 03/08/20 19:00 139/87 03/08/20 18:45 87 26 136/83 (100) 100 03/08/20 18:30 97 30 135/84 (101) 100 03/08/20 18:15 86 25 129/86 (100) 100 03/08/20 18:00 131/79 03/08/20 18:00 84 29 131/79 (96) 100 03/08/20 17:45 85 26 134/81 (98) 100 03/08/20 17:30 84 29 125/79 (94) 100 03/08/20 17:15 85 26 138/83 (101) 100 03/08/20 17:00 84 23 138/83 (101) 100 03/08/20 17:00 138/83 03/08/20 16:45 80 29 122/82 (95) 100 03/08/20 16:30 82 25 129/90 (103) 100 03/08/20 16:15 85 28 136/87 (103) 100 03/08/20 16:01 129/88 03/08/20 16:00 98.0 86 28 129/88 (102) 100 03/08/20 16:00 Mechanical Ventilator 03/08/20 16:00 85 03/08/20 16:00 40 03/08/20 15:45 96 26 126/87 (100) 100 03/08/20 15:30 94 28 132/93 (106) 100 03/08/20 15:15 94 32 148/92 (110) 100 03/08/20 15:15 85 37 40 03/08/20 15:00 137/90 03/08/20 15:00 89 34 137/90 (106) 100 03/08/20 14:45 89 32 140/89 (106) 100 03/08/20 14:30 88 32 137/85 (102) 100 03/08/20 14:15 81 5 129/82 (98) 100 03/08/20 14:00 141/90 03/08/20 14:00 83 17 141/90 (107) 100 03/08/20 13:45 83 14 131/86 (101) 100 03/08/20 13:30 88 23 146/83 (104) 100 03/08/20 13:15 87 24 139/83 (101) 100 03/08/20 13:11 84 38 100 Mechanical Ventilator 40 83 38 40 03/08/20 13:00 148/96 03/08/20 13:00 87 35 148/96 (113) 100 03/08/20 12:45 145/90 03/08/20 12:45 81 34 145/90 (108) 100 03/08/20 12:30 81 31 160/90 (113) 100 03/08/20 12:30 160/90 03/08/20 12:15 166/93 03/08/20 12:15 84 32 166/93 (117) 100 03/08/20 12:00 40 03/08/20 12:00 166/93 03/08/20 12:00 Mechanical Ventilator 03/08/20 12:00 82 03/08/20 12:00 82 30 166/93 (117) 100 03/08/20 11:20 73 30 40 03/08/20 11:15 71 33 151/89 (109) 100 03/08/20 11:11 65 14 99 03/08/20 11:00 157/82 03/08/20 11:00 71 32 157/82 (107) 100 03/08/20 10:45 72 30 151/92 (111) 100 03/08/20 10:35 73 26 151/84 (106) 100 03/08/20 10:30 75 28 152/85 (107) 100 03/08/20 10:25 75 30 150/84 (106) 100 03/08/20 10:20 75 26 148/87 (107) 100 03/08/20 10:15 75 29 148/85 (106) 100 03/08/20 10:00 156/85 03/08/20 10:00 75 27 156/85 (108) 100 03/08/20 09:55 78 25 145/83 (103) 100 03/08/20 09:50 72 26 142/82 (102) 100 03/08/20 09:45 74 26 137/85 (102) 100 03/08/20 09:40 71 27 144/80 (101) 100 03/08/20 09:35 77 26 142/82 (102) 100 03/08/20 09:30 72 26 143/86 (105) 100 03/08/20 09:25 74 27 148/82 (104) 100 03/08/20 09:20 68 27 109/71 (84) 100 03/08/20 09:15 67 27 143/78 (99) 100 03/08/20 09:10 66 27 139/79 (99) 100 03/08/20 09:10 80 26 100 03/08/20 09:05 65 26 141/80 (100) 100 03/08/20 09:00 136/77 03/08/20 09:00 66 26 136/77 (96) 100 03/08/20 08:55 70 26 139/80 (99) 100 03/08/20 08:54 71 26 137/84 (101) 100 03/08/20 08:50 71 26 137/80 (99) 100 03/08/20 08:49 71 26 135/81 (99) 100 03/08/20 08:46 73 26 137/80 (99) 100 03/08/20 08:45 72 26 136/80 (98) 100 03/08/20 08:36 77 24 122/75 (91) 100 03/08/20 08:35 76 26 100 03/08/20 08:33 77 26 139/84 (102) 100 03/08/20 08:32 76 26 139/86 (103) 100 03/08/20 08:31 75 25 140/83 (102) 100 03/08/20 08:28 78 23 138/80 (99) 100 03/08/20 08:27 79 26 141/81 (101) 100 03/08/20 08:25 84 25 143/81 (101) 100 03/08/20 08:23 94 26 142/84 (103) 100 03/08/20 08:22 99 19 142/85 (104) 100 03/08/20 08:18 98 28 147/89 (108) 97 03/08/20 08:15 79 14 154/91 (112) 100 03/08/20 08:14 75 24 156/91 (112) 100 03/08/20 08:11 77 27 154/86 (108) 100 03/08/20 08:10 74 26 161/86 (111) 100 03/08/20 08:10 74 26 161/86 (111) 100 03/08/20 08:07 75 21 152/78 (102) 100 03/08/20 08:05 76 24 100 03/08/20 08:00 80 03/08/20 08:00 Mechanical Ventilator 03/08/20 08:00 40 03/08/20 08:00 158/90 03/08/20 08:00 97.9 82 23 158/90 (112) 100 03/08/20 07:30 79 16 152/85 (107) 100 03/08/20 07:22 104 28 100 Mechanical Ventilator 40 99 28 40 03/08/20 07:00 74 22 158/82 (107) 100 03/08/20 07:00 158/82 03/08/20 06:15 73 25 154/89 (110) 100 03/08/20 06:00 87 21 142/90 (107) 91 03/08/20 06:00 154/89 03/08/20 05:45 77 28 150/91 (110) 100 03/08/20 05:30 73 29 169/88 (115) 100 03/08/20 05:15 77 26 154/90 (111) 100 03/08/20 05:00 154/90 03/08/20 05:00 91 26 150/90 (110) 100 03/08/20 04:45 91 26 141/89 (106) 100 03/08/20 04:30 89 31 161/94 (116) 100 03/08/20 04:15 79 26 154/90 (111) 100 03/08/20 04:00 40 03/08/20 04:00 82 03/08/20 04:00 154/90 03/08/20 04:00 82 26 157/85 (109) 100 03/08/20 04:00 Mechanical Ventilator 03/08/20 03:45 85 26 156/89 (111) 100 03/08/20 03:30 82 28 143/89 (107) 100 03/08/20 03:15 90 28 160/87 (111) 100 03/08/20 03:00 88 18 146/88 (107) 100 03/08/20 03:00 160/87 03/08/20 02:50 81 30 40 03/08/20 02:45 93 18 166/94 (118) 100 03/08/20 02:30 84 28 150/87 (108) 100 03/08/20 02:15 92 22 145/87 (106) 100 ROS: unchanged from my dictation of 03/05/20 HEENT: Mechanically Ventilated, Thick Trach secretions RHYTHM: ST LUNGS: bilateral rhonchi CARDIAC: regular rhythm, normal S1 and S2, tachycardia ABDOMEN: normal bowel sounds, non tender, soft, no organomegaly, decreased bowel sounds, slightly distended, G-Tube intact EXTREMITIES: no calf tenderness, pitting edema - dependent Laboratory Tests Test 03/08/20 04:15 03/08/20 18:15 White Blood Count 11.0 K/UL (4.8-10.8) H 15.0 K/UL (4.8-10.8) H Red Blood Count 2.42 M/UL (4.70-6.10) L 2.19 M/UL (4.70-6.10) L Hemoglobin 7.6 G/DL (14.2-18.0) L 7.1 G/DL (14.2-18.0) L Hematocrit 21.8 % (42.0-52.0) L 20.4 % (42.0-52.0) L Mean Corpuscular Volume 90 FL (80-99) 93 FL (80-99) Mean Corpuscular Hemoglobin 31.3 PG (27.0-31.0) H 32.6 PG (27.0-31.0) H Mean Corpuscular Hemoglobin Concent 34.7 G/DL (32.0-36.0) 34.9 G/DL (32.0-36.0) Red Cell Distribution Width 13.4 % (11.6-14.8) 14.0 % (11.6-14.8) Platelet Count 118 K/UL (150-450) L 111 K/UL (150-450) L Mean Platelet Volume 5.2 FL (6.5-10.1) L 6.4 FL (6.5-10.1) L Neutrophils (%) (Auto) % (45.0-75.0) % (45.0-75.0) Lymphocytes (%) (Auto) % (20.0-45.0) % (20.0-45.0) Monocytes (%) (Auto) % (1.0-10.0) % (1.0-10.0) Eosinophils (%) (Auto) % (0.0-3.0) % (0.0-3.0) Basophils (%) (Auto) % (0.0-2.0) % (0.0-2.0) Sodium Level 142 MMOL/L (136-145) Potassium Level 3.5 MMOL/L (3.5-5.1) Chloride Level 110 MMOL/L (98-107) H Carbon Dioxide Level 18 MMOL/L (21-32) L Anion Gap 14 mmol/L (5-15) Blood Urea Nitrogen 119 mg/dL (7-18) H Creatinine 3.4 MG/DL (0.55-1.30) H Estimat Glomerular Filtration Rate 17.7 mL/min (>60) Glucose Level 180 MG/DL (74-106) H Calcium Level 7.4 MG/DL (8.5-10.1) L Total Bilirubin 0.4 MG/DL (0.2-1.0) Aspartate Amino Transf (AST/SGOT) 17 U/L (15-37) Alanine Aminotransferase (ALT/SGPT) 20 U/L (12-78) Alkaline Phosphatase 64 U/L (46-116) Total Protein 5.4 G/DL (6.4-8.2) L Albumin 1.4 G/DL (3.4-5.0) L Globulin 4.0 g/dL Albumin/Globulin Ratio 0.3 (1.0-2.7) L Random Vancomycin Level 15.7 ug/mL Differential Total Cells Counted 100 Neutrophils % (Manual) 90 % (45-75) H Lymphocytes % (Manual) 4 % (20-45) L Monocytes % (Manual) 6 % (1-10) Eosinophils % (Manual) 0 % (0-3) Basophils % (Manual) 0 % (0-2) Band Neutrophils 0 % (0-8) Platelet Estimate Decreased L Platelet Morphology Normal Red Blood Cell Morphology Normal Assessment/Plan Assessment/Plan CRITICAL & GUARDED Respiratory Failure Sepsis with shock Asp'n PNA Sinus tachycardia Lactic acidosis CVS with dementia Anemia GI bleeding with gastric ulcer PAFib Dysphagia with GTube Abx Taper off pressors as able IVF Vent support/resp hygiene Transfuse for hb below 7gm/dl PPI cardiac monitoring Repeat EGD planned Franko Pineda MD Mar 09, 2020 02:04
[2020-03-09] MEDS: Pantoprazole 80 MG in NS 250 ML IV SCH ×2 (05:17→15:59)
[2020-03-09] MEDS: Zosyn 3.375gm q12h **Extended infusion IVPB SCH ×2 (05:19)
[2020-03-09] MEDS: Metoclopramide 10mg/2ml Inj IVP SCH ×4 (05:32→23:26)
[2020-03-09] MEDS: Octreotide Acetate 500 MCG in Sodium Chloride 499 ML IV SCH ×2 (06:00→15:59)
[2020-03-09 06:09] LABS: HEMATOCRIT 24.7 % (42.0-52.0); HEMOGLOBIN 8.7 G/DL (14.2-18.0); MEAN CORPUSCULAR VOLUME 89 FL (80-99); PLATELET COUNT 96 K/UL (150-450); RED BLOOD COUNT 2.79 M/UL (4.70-6.10); RED CELL DISTRIBUTION WIDTH 13.8 % (11.6-14.8); WHITE BLOOD COUNT 15.1 K/UL (4.8-10.8)
[2020-03-09 06:23] LABS: ALANINE AMINOTRANSFERASE 18 U/L (12-78); ALBUMIN 1.3 G/DL (3.4-5.0); ALBUMIN/GLOBULIN RATIO 0.3 (1.0-2.7); ALKALINE PHOSPHATASE 70 U/L (46-116); ANION GAP 13 mmol/L (5-15); ASPARTATE AMINO TRANSFERASE 18 U/L (15-37); BILIRUBIN,TOTAL 0.4 MG/DL (0.2-1.0); BLOOD UREA NITROGEN 108 mg/dL (7-18); CARBON DIOXIDE 19 MMOL/L (21-32); CHLORIDE 110 MMOL/L (98-107); CREATININE 3.3 MG/DL (0.55-1.30); SODIUM 142 MMOL/L (136-145)
[2020-03-09 06:28] LABS: INR 1.3 (0.9-1.1)
--- NOTE | 2020-03-09 08:07 | Critical Care Progress Note ---
Assessment/Plan Assessment/Plan Upper GI bleed Anemia due to acute blood loss H/o GERD, previous G tube Chronic Tracheostomy, Respiratory failure with elevatedCO2 Aspiration pneumonia Sepsis Renal insufficiency, hyperkalemia, metabolic acidosis Previous Pseudomonal Pneumonia H/o Paroxysmal Atrial Fibrillation Diabetes CRI Anemia s/p transfusion Prev CVA Chronic encephalopathy Seizure history Hypothyroidism Tachycardia PLAN care noted IV antibiotics and cultures reviewed respiratory care as is Ventilatory support as is off load SNF meds supportive care repeat EGD suction no wean planned oxygen therapy prognosis poor for recovery monitor need for transfusion as needed full code medications/laboratory data/nursing notes/ICU care reviewed in detail note reviewed and edited care discussed with RN and RT ICU time spent >40 minutes Critical Care - Subjective Interval Events: doing poorly in ICU multiorgan failure ROS Limited/Unobtainable: Yes Condition: critical EKG Rhythm: Sinus Tachycardia Residuals: minimal Tube Feeding Tolerated: yes I&O: Intake and Output 03/08/20 03/09/20 19:00 07:00 Intake Total 2347.70 ml 3167.48 ml Output Total 1400 ml 300 ml Balance 947.70 ml 2867.48 ml Free Water 1200 ml IV Total 2347.70 ml 1967.48 ml Output Urine Total 400 ml 300 ml Stool Total 0 ml Gastric Drainage Total 1000 ml # Bowel Movements 1 1 Critical Care - Objective Last 24 Hour Vital Signs Date Time Temp Pulse Resp B/P (MAP) Pulse Ox O2 Delivery O2 Flow Rate FiO2 03/09/20 08:00 98.5 128 36 137/88 (104) 100 03/09/20 08:00 40 03/09/20 07:30 116 10 140/86 (104) 100 03/09/20 07:00 109 19 142/82 (102) 100 03/09/20 07:00 142/82 03/09/20 06:45 104 5 122/83 (96) 100 03/09/20 06:30 109 39 137/73 (94) 100 03/09/20 06:15 103 23 140/85 (103) 100 03/09/20 06:00 110 29 137/83 (101) 100 03/09/20 05:45 110 6 143/84 (103) 100 03/09/20 05:30 113 30 138/84 (102) 100 03/09/20 05:15 114 33 141/86 (104) 100 9/10/20 05:00 141/86 03/09/20 05:00 126 30 140/88 (105) 100 03/09/20 04:45 102 32 153/96 (115) 100 03/09/20 04:30 98 34 142/92 (109) 100 03/09/20 04:15 96 37 151/95 (113) 100 03/09/20 04:00 97 37 152/96 (114) 100 03/09/20 04:00 Mechanical Ventilator 03/09/20 04:00 40 03/09/20 04:00 151/95 03/09/20 04:00 97 03/09/20 03:45 97 36 143/93 (110) 100 03/09/20 03:30 94 25 163/96 (118) 100 03/09/20 03:23 91 36 40 03/09/20 03:15 95 22 159/97 (117) 100 03/09/20 03:00 159/97 03/09/20 03:00 95 20 163/98 (119) 100 03/09/20 02:45 91 23 155/97 (116) 100 03/09/20 02:30 93 26 154/96 (115) 100 03/09/20 02:15 95 12 156/93 (114) 03/09/20 02:00 92 32 156/95 (115) 03/09/20 02:00 156/93 03/09/20 01:45 99 31 152/91 (111) 100 03/09/20 01:30 96 26 155/92 (113) 100 03/09/20 01:27 93 38 100 Mechanical Ventilator 40 98 40 03/09/20 01:15 92 19 147/89 (108) 100 03/09/20 01:00 147/89 03/09/20 01:00 92 17 148/90 (109) 100 03/09/20 00:45 91 18 147/91 (109) 100 03/09/20 00:30 91 13 149/90 (109) 100 03/09/20 00:15 90 25 146/88 (107) 100 03/09/20 00:00 95 18 143/88 (106) 100 03/09/20 00:00 146/88 03/09/20 00:00 Mechanical Ventilator 03/08/20 23:30 93 37 149/91 (110) 100 03/08/20 23:17 97 37 40 03/08/20 23:15 99 16 149/90 (109) 100 03/08/20 23:00 92 34 149/89 (109) 100 03/08/20 23:00 149/90 03/08/20 22:45 93 28 146/85 (105) 100 03/08/20 22:30 94 21 144/87 (106) 100 03/08/20 22:15 89 30 140/85 (103) 100 03/08/20 22:00 140/85 03/08/20 22:00 90 24 140/85 (103) 100 03/08/20 21:45 92 30 139/87 (104) 100 03/08/20 21:30 91 33 136/85 (102) 100 03/08/20 21:15 96 35 141/82 (101) 100 03/08/20 21:00 95 33 137/84 (101) 100 03/08/20 20:45 97 35 136/86 (103) 100 03/08/20 20:30 87 28 148/93 (111) 100 03/08/20 20:15 84 26 137/85 (102) 100 03/08/20 20:00 84 03/08/20 20:00 Mechanical Ventilator 03/08/20 20:00 40 03/08/20 20:00 84 23 136/87 (103) 100 03/08/20 19:45 85 27 137/84 (101) 100 03/08/20 19:30 83 31 131/85 (100) 100 03/08/20 19:30 86 39 100 Mechanical Ventilator 40 88 40 40 03/08/20 19:15 82 25 136/82 (100) 100 03/08/20 19:00 88 26 139/87 (104) 100 03/08/20 19:00 139/87 03/08/20 18:45 87 26 136/83 (100) 100 03/08/20 18:30 97 30 135/84 (101) 100 03/08/20 18:15 86 25 129/86 (100) 100 03/08/20 18:00 131/79 03/08/20 18:00 84 29 131/79 (96) 100 03/08/20 17:45 85 26 134/81 (98) 100 03/08/20 17:30 84 29 125/79 (94) 100 03/08/20 17:15 85 26 138/83 (101) 100 03/08/20 17:00 84 23 138/83 (101) 100 03/08/20 17:00 138/83 03/08/20 16:45 80 29 122/82 (95) 100 03/08/20 16:30 82 25 129/90 (103) 100 03/08/20 16:15 85 28 136/87 (103) 100 03/08/20 16:01 129/88 03/08/20 16:00 98.0 86 28 129/88 (102) 100 03/08/20 16:00 Mechanical Ventilator 03/08/20 16:00 85 03/08/20 16:00 40 03/08/20 15:45 96 26 126/87 (100) 100 03/08/20 15:30 94 28 132/93 (106) 100 03/08/20 15:15 94 32 148/92 (110) 100 03/08/20 15:15 85 37 40 03/08/20 15:00 137/90 03/08/20 15:00 89 34 137/90 (106) 100 03/08/20 14:45 89 32 140/89 (106) 100 03/08/20 14:30 88 32 137/85 (102) 100 03/08/20 14:15 81 5 129/82 (98) 100 03/08/20 14:00 141/90 03/08/20 14:00 83 17 141/90 (107) 100 03/08/20 13:45 83 14 131/86 (101) 100 03/08/20 13:30 88 23 146/83 (104) 100 03/08/20 13:15 87 24 139/83 (101) 100 03/08/20 13:11 84 38 100 Mechanical Ventilator 40 83 38 40 03/08/20 13:00 148/96 03/08/20 13:00 87 35 148/96 (113) 100 03/08/20 12:45 145/90 03/08/20 12:45 81 34 145/90 (108) 100 03/08/20 12:30 81 31 160/90 (113) 100 03/08/20 12:30 160/90 03/08/20 12:15 166/93 9/9/20 12:15 84 32 166/93 (117) 100 03/08/20 12:00 40 03/08/20 12:00 166/93 03/08/20 12:00 Mechanical Ventilator 03/08/20 12:00 82 03/08/20 12:00 82 30 166/93 (117) 100 03/08/20 11:20 73 30 40 03/08/20 11:15 71 33 151/89 (109) 100 03/08/20 11:11 65 14 99 03/08/20 11:00 157/82 03/08/20 11:00 71 32 157/82 (107) 100 03/08/20 10:45 72 30 151/92 (111) 100 03/08/20 10:35 73 26 151/84 (106) 100 03/08/20 10:30 75 28 152/85 (107) 100 03/08/20 10:25 75 30 150/84 (106) 100 03/08/20 10:20 75 26 148/87 (107) 100 03/08/20 10:15 75 29 148/85 (106) 100 03/08/20 10:00 156/85 03/08/20 10:00 75 27 156/85 (108) 100 03/08/20 09:55 78 25 145/83 (103) 100 03/08/20 09:50 72 26 142/82 (102) 100 03/08/20 09:45 74 26 137/85 (102) 100 03/08/20 09:40 71 27 144/80 (101) 100 03/08/20 09:35 77 26 142/82 (102) 100 03/08/20 09:30 72 26 143/86 (105) 100 03/08/20 09:25 74 27 148/82 (104) 100 03/08/20 09:20 68 27 109/71 (84) 100 03/08/20 09:15 67 27 143/78 (99) 100 03/08/20 09:10 66 27 139/79 (99) 100 03/08/20 09:10 80 26 100 03/08/20 09:05 65 26 141/80 (100) 100 03/08/20 09:00 136/77 03/08/20 09:00 66 26 136/77 (96) 100 03/08/20 08:55 70 26 139/80 (99) 100 03/08/20 08:54 71 26 137/84 (101) 100 03/08/20 08:50 71 26 137/80 (99) 100 03/08/20 08:49 71 26 135/81 (99) 100 03/08/20 08:46 73 26 137/80 (99) 100 03/08/20 08:45 72 26 136/80 (98) 100 03/08/20 08:36 77 24 122/75 (91) 100 03/08/20 08:35 76 26 100 03/08/20 08:33 77 26 139/84 (102) 100 03/08/20 08:32 76 26 139/86 (103) 100 03/08/20 08:31 75 25 140/83 (102) 100 03/08/20 08:28 78 23 138/80 (99) 100 03/08/20 08:27 79 26 141/81 (101) 100 03/08/20 08:25 84 25 143/81 (101) 100 03/08/20 08:23 94 26 142/84 (103) 100 03/08/20 08:22 99 19 142/85 (104) 100 03/08/20 08:18 98 28 147/89 (108) 97 03/08/20 08:15 79 14 154/91 (112) 100 03/08/20 08:14 75 24 156/91 (112) 100 03/08/20 08:11 77 27 154/86 (108) 100 03/08/20 08:10 74 26 161/86 (111) 100 03/08/20 08:10 74 26 161/86 (111) 100 03/08/20 08:07 75 21 152/78 (102) 100 Labs: Labs Test 03/06/20 15:38 03/06/20 19:15 03/07/20 04:05 03/07/20 20:50 Arterial Blood pH 7.276 (7.350-7.450) Arterial Blood Partial Pressure CO2 32.3 mmHg (35.0-45.0) Arterial Blood Partial Pressure O2 136.2 mmHg (75.0-100.0) Arterial Blood HCO3 14.7 mmol/L (22.0-26.0) Arterial Blood Oxygen Saturation 98.2 % (95-100) Arterial Blood Base Excess -11.1 (-2-2) [place] Test Positive White Blood Count 28.5 K/UL (4.8-10.8) 16.6 K/UL (4.8-10.8) 14.7 K/UL (4.8-10.8) Red Blood Count 2.08 M/UL (4.70-6.10) 2.14 M/UL (4.70-6.10) 2.61 M/UL (4.70-6.10) Hemoglobin 6.8 G/DL (14.2-18.0) 6.5 G/DL (14.2-18.0) 8.4 G/DL (14.2-18.0) Hematocrit 19.9 % (42.0-52.0) 19.5 % (42.0-52.0) 24.6 % (42.0-52.0) Mean Corpuscular Volume 96 FL (80-99) 91 FL (80-99) 94 FL (80-99) Mean Corpuscular Hemoglobin 32.8 PG (27.0-31.0) 30.6 PG (27.0-31.0) 32.3 PG (27.0-31.0) Mean Corpuscular Hemoglobin Concent 34.3 G/DL (32.0-36.0) 33.6 G/DL (32.0-36.0) 34.4 G/DL (32.0-36.0) Red Cell Distribution Width 15.1 % (11.6-14.8) 14.5 % (11.6-14.8) 14.3 % (11.6-14.8) Platelet Count 237 K/UL (150-450) 155 K/UL (150-450) 123 K/UL (150-450) Mean Platelet Volume 5.6 FL (6.5-10.1) 5.1 FL (6.5-10.1) 5.8 FL (6.5-10.1) Neutrophils (%) (Auto) % (45.0-75.0) % (45.0-75.0) 83.7 % (45.0-75.0) Lymphocytes (%) (Auto) % (20.0-45.0) % (20.0-45.0) 9.0 % (20.0-45.0) Monocytes (%) (Auto) % (1.0-10.0) % (1.0-10.0) 6.6 % (1.0-10.0) Eosinophils (%) (Auto) % (0.0-3.0) % (0.0-3.0) 0.2 % (0.0-3.0) Basophils (%) (Auto) % (0.0-2.0) % (0.0-2.0) 0.5 % (0.0-2.0) Differential Total Cells Counted 100 100 Neutrophils % (Manual) 90 % (45-75) 90 % (45-75) Lymphocytes % (Manual) 4 % (20-45) 6 % (20-45) Monocytes % (Manual) 5 % (1-10) 4 % (1-10) Eosinophils % (Manual) 1 % (0-3) 0 % (0-3) Basophils % (Manual) 0 % (0-2) 0 % (0-2) Band Neutrophils 0 % (0-8) 0 % (0-8) Platelet Estimate Adequate Adequate Platelet Morphology Normal Normal Hypochromasia 3+ 1+ Anisocytosis 1+ 1+ Sodium Level 138 MMOL/L (136-145) Potassium Level 4.0 MMOL/L (3.5-5.1) Chloride Level 108 MMOL/L (98-107) Carbon Dioxide Level 18 MMOL/L (21-32) Anion Gap 12 mmol/L (5-15) Blood Urea Nitrogen 130 mg/dL (7-18) Creatinine 3.6 MG/DL (0.55-1.30) Estimat Glomerular Filtration Rate 16.5 mL/min (>60) Glucose Level 196 MG/DL (74-106) Calcium Level 8.0 MG/DL (8.5-10.1) Phosphorus Level 3.8 MG/DL (2.5-4.9) Magnesium Level 1.9 MG/DL (1.8-2.4) Total Bilirubin 0.3 MG/DL (0.2-1.0) Aspartate Amino Transf (AST/SGOT) 16 U/L (15-37) Alanine Aminotransferase (ALT/SGPT) 19 U/L (12-78) Alkaline Phosphatase 58 U/L (46-116) Troponin I 0.148 ng/mL (0.000-0.056) Total Protein 5.1 G/DL (6.4-8.2) Albumin 1.2 G/DL (3.4-5.0) Globulin 3.9 g/dL Albumin/Globulin Ratio 0.3 (1.0-2.7) Thyroid Stimulating Hormone (TSH) 2.708 uiU/mL (0.358-3.740) Test 03/08/20 04:15 03/08/20 18:15 03/09/20 05:45 White Blood Count 11.0 K/UL (4.8-10.8) 15.0 K/UL (4.8-10.8) 15.1 K/UL (4.8-10.8) Red Blood Count 2.42 M/UL (4.70-6.10) 2.19 M/UL (4.70-6.10) 2.79 M/UL (4.70-6.10) Hemoglobin 7.6 G/DL (14.2-18.0) 7.1 G/DL (14.2-18.0) 8.7 G/DL (14.2-18.0) Hematocrit 21.8 % (42.0-52.0) 20.4 % (42.0-52.0) 24.7 % (42.0-52.0) Mean Corpuscular Volume 90 FL (80-99) 93 FL (80-99) 89 FL (80-99) Mean Corpuscular Hemoglobin 31.3 PG (27.0-31.0) 32.6 PG (27.0-31.0) 31.1 PG (27.0-31.0) Mean Corpuscular Hemoglobin Concent 34.7 G/DL (32.0-36.0) 34.9 G/DL (32.0-36.0) 35.0 G/DL (32.0-36.0) Red Cell Distribution Width 13.4 % (11.6-14.8) 14.0 % (11.6-14.8) 13.8 % (11.6-14.8) Platelet Count 118 K/UL (150-450) 111 K/UL (150-450) 96 K/UL (150-450) Mean Platelet Volume 5.2 FL (6.5-10.1) 6.4 FL (6.5-10.1) 5.1 FL (6.5-10.1) Neutrophils (%) (Auto) % (45.0-75.0) % (45.0-75.0) % (45.0-75.0) Lymphocytes (%) (Auto) % (20.0-45.0) % (20.0-45.0) % (20.0-45.0) Monocytes (%) (Auto) % (1.0-10.0) % (1.0-10.0) % (1.0-10.0) Eosinophils (%) (Auto) % (0.0-3.0) % (0.0-3.0) % (0.0-3.0) Basophils (%) (Auto) % (0.0-2.0) % (0.0-2.0) % (0.0-2.0) Sodium Level 142 MMOL/L (136-145) 142 MMOL/L (136-145) Potassium Level 3.5 MMOL/L (3.5-5.1) 3.0 MMOL/L (3.5-5.1) Chloride Level 110 MMOL/L (98-107) 110 MMOL/L (98-107) Carbon Dioxide Level 18 MMOL/L (21-32) 19 MMOL/L (21-32) Anion Gap 14 mmol/L (5-15) 13 mmol/L (5-15) Blood Urea Nitrogen 119 mg/dL (7-18) 108 mg/dL (7-18) Creatinine 3.4 MG/DL (0.55-1.30) 3.3 MG/DL (0.55-1.30) Estimat Glomerular Filtration Rate 17.7 mL/min (>60) 18.3 mL/min (>60) Glucose Level 180 MG/DL (74-106) 112 MG/DL (74-106) Calcium Level 7.4 MG/DL (8.5-10.1) 7.0 MG/DL (8.5-10.1) Total Bilirubin 0.4 MG/DL (0.2-1.0) 0.4 MG/DL (0.2-1.0) Aspartate Amino Transf (AST/SGOT) 17 U/L (15-37) 18 U/L (15-37) Alanine Aminotransferase (ALT/SGPT) 20 U/L (12-78) 18 U/L (12-78) Alkaline Phosphatase 64 U/L (46-116) 70 U/L (46-116) Total Protein 5.4 G/DL (6.4-8.2) 5.6 G/DL (6.4-8.2) Albumin 1.4 G/DL (3.4-5.0) 1.3 G/DL (3.4-5.0) Globulin 4.0 g/dL 4.3 g/dL Albumin/Globulin Ratio 0.3 (1.0-2.7) 0.3 (1.0-2.7) Random Vancomycin Level 15.7 ug/mL Differential Total Cells Counted 100 Neutrophils % (Manual) 90 % (45-75) Lymphocytes % (Manual) 4 % (20-45) Monocytes % (Manual) 6 % (1-10) Eosinophils % (Manual) 0 % (0-3) Basophils % (Manual) 0 % (0-2) Band Neutrophils 0 % (0-8) Platelet Estimate Decreased Platelet Morphology Normal Red Blood Cell Morphology Normal Prothrombin Time 14.0 SEC (9.30-11.50) Prothromb Time International Ratio 1.3 (0.9-1.1) Activated Partial Thromboplast Time 34 SEC (23-33) Objective: WDWN NAD chronically ill reduced breath sounds bilaterally without rhonchi or wheeze [id number] tachy without MRG NABS nontender not distended; GT no CCE nonfocal contracted line reviewed reviewed and edited Accucheck: 108 Mansoor Martinez MD Mar 09, 2020 08:07
[2020-03-09] MEDS: Levothyroxine 25mcg tab GT SCH (08:24)
[2020-03-09] MEDS: Levothyroxine 125mcg tab GT SCH (08:25)
[2020-03-09] MEDS: Norepinephrine Bitartrate 16 MG in Sodium Chloride 484 ML IV SCH (08:25)
[2020-03-09] MEDS: Docusate 100mg/10ml Liq GT SCH ×2 (08:26→13:00)
[2020-03-09] MEDS: Ascorbic Acid 500mg tab GT SCH (08:26)
[2020-03-09] MEDS: Phenylephrine 100 MG in D5W 240 ML IV SCH (08:42)
--- NOTE | 2020-03-09 10:20 | Nephrology Progress Note ---
Assessment/Plan Plan Acute Oliguric ARF Severe Metabolic Acidosis MOF VDRF Seizure DO Urosepsis Anemia, mostly of CKD - JJ Subjective Subjective Obtunded. Objective Objective Last 24 Hour Vital Signs Date Time Temp Pulse Resp B/P (MAP) Pulse Ox O2 Delivery O2 Flow Rate FiO2 03/09/20 09:00 111 29 133/85 (101) 100 03/09/20 09:00 133/85 03/09/20 08:45 118 35 134/86 (102) 100 03/09/20 08:42 119 128/85 03/09/20 08:30 119 31 128/85 (99) 100 03/09/20 08:25 134/85 03/09/20 08:15 116 28 134/85 (101) 100 03/09/20 08:00 98.5 128 36 137/88 (104) 100 03/09/20 08:00 Mechanical Ventilator 03/09/20 08:00 137/88 03/09/20 08:00 128 03/09/20 08:00 40 03/09/20 07:30 116 10 140/86 (104) 100 03/09/20 07:11 103 33 100 Mechanical Ventilator 40 111 35 40 03/09/20 07:00 109 19 142/82 (102) 100 03/09/20 07:00 142/82 03/09/20 06:45 104 5 122/83 (96) 100 03/09/20 06:30 109 39 137/73 (94) 100 03/09/20 06:15 103 23 140/85 (103) 100 03/09/20 06:00 110 29 137/83 (101) 100 03/09/20 05:45 110 6 143/84 (103) 100 03/09/20 05:30 113 30 138/84 (102) 100 03/09/20 05:15 114 33 141/86 (104) 100 03/09/20 05:00 141/86 03/09/20 05:00 126 30 140/88 (105) 100 03/09/20 04:45 102 32 153/96 (115) 100 03/09/20 04:30 98 34 142/92 (109) 100 03/09/20 04:15 96 37 151/95 (113) 100 03/09/20 04:00 97 37 152/96 (114) 100 03/09/20 04:00 Mechanical Ventilator 03/09/20 04:00 40 03/09/20 04:00 151/95 03/09/20 04:00 97 03/09/20 03:45 97 36 143/93 (110) 100 03/09/20 03:30 94 25 163/96 (118) 100 03/09/20 03:23 91 36 40 03/09/20 03:15 95 22 159/97 (117) 100 03/09/20 03:00 159/97 03/09/20 03:00 95 20 163/98 (119) 100 03/09/20 02:45 91 23 155/97 (116) 100 03/09/20 02:30 93 26 154/96 (115) 100 03/09/20 02:15 95 12 156/93 (114) 100 03/09/20 02:00 92 32 156/95 (115) 100 03/09/20 02:00 156/93 03/09/20 01:45 99 31 152/91 (111) 100 03/09/20 01:30 96 26 155/92 (113) 100 03/09/20 01:27 93 38 100 Mechanical Ventilator 40 98 40 03/09/20 01:15 92 19 147/89 (108) 100 03/09/20 01:00 147/89 03/09/20 01:00 92 17 148/90 (109) 100 03/09/20 00:45 91 18 147/91 (109) 100 03/09/20 00:30 91 13 149/90 (109) 100 03/09/20 00:15 90 25 146/88 (107) 100 03/09/20 00:00 95 18 143/88 (106) 100 03/09/20 00:00 146/88 03/09/20 00:00 Mechanical Ventilator 03/08/20 23:30 93 37 149/91 (110) 100 03/08/20 23:17 97 37 40 03/08/20 23:15 99 16 149/90 (109) 100 03/08/20 23:00 92 34 149/89 (109) 100 03/08/20 23:00 149/90 03/08/20 22:45 93 28 146/85 (105) 100 03/08/20 22:30 94 21 144/87 (106) 100 03/08/20 22:15 89 30 140/85 (103) 100 03/08/20 22:00 140/85 03/08/20 22:00 90 24 140/85 (103) 100 03/08/20 21:45 92 30 139/87 (104) 100 03/08/20 21:30 91 33 136/85 (102) 100 03/08/20 21:15 96 35 141/82 (101) 100 03/08/20 21:00 95 33 137/84 (101) 100 03/08/20 20:45 97 35 136/86 (103) 100 03/08/20 20:30 87 28 148/93 (111) 100 03/08/20 20:15 84 26 137/85 (102) 100 03/08/20 20:00 84 03/08/20 20:00 Mechanical Ventilator 03/08/20 20:00 40 03/08/20 20:00 84 23 136/87 (103) 100 03/08/20 19:45 85 27 137/84 (101) 100 03/08/20 19:30 83 31 131/85 (100) 100 03/08/20 19:30 86 39 100 Mechanical Ventilator 40 88 40 40 03/08/20 19:15 82 25 136/82 (100) 100 03/08/20 19:00 88 26 139/87 (104) 100 03/08/20 19:00 139/87 03/08/20 18:45 87 26 136/83 (100) 100 03/08/20 18:30 97 30 135/84 (101) 100 03/08/20 18:15 86 25 129/86 (100) 100 03/08/20 18:00 131/79 03/08/20 18:00 84 29 131/79 (96) 100 03/08/20 17:45 85 26 134/81 (98) 100 03/08/20 17:30 84 29 125/79 (94) 100 03/08/20 17:15 85 26 138/83 (101) 100 03/08/20 17:00 84 23 138/83 (101) 100 03/08/20 17:00 138/83 03/08/20 16:45 80 29 122/82 (95) 100 03/08/20 16:30 82 25 129/90 (103) 100 03/08/20 16:15 85 28 136/87 (103) 100 03/08/20 16:01 129/88 03/08/20 16:00 98.0 86 28 129/88 (102) 100 03/08/20 16:00 Mechanical Ventilator 03/08/20 16:00 85 03/08/20 16:00 40 03/08/20 15:45 96 26 126/87 (100) 100 03/08/20 15:30 94 28 132/93 (106) 100 03/08/20 15:15 94 32 148/92 (110) 100 03/08/20 15:15 85 37 40 03/08/20 15:00 137/90 03/08/20 15:00 89 34 137/90 (106) 100 03/08/20 14:45 89 32 140/89 (106) 100 03/08/20 14:30 88 32 137/85 (102) 100 03/08/20 14:15 81 5 129/82 (98) 100 03/08/20 14:00 141/90 03/08/20 14:00 83 17 141/90 (107) 100 03/08/20 13:45 83 14 131/86 (101) 100 03/08/20 13:30 88 23 146/83 (104) 100 03/08/20 13:15 87 24 139/83 (101) 100 03/08/20 13:11 84 38 100 Mechanical Ventilator 40 83 38 40 03/08/20 13:00 148/96 03/08/20 13:00 87 35 148/96 (113) 100 03/08/20 12:45 145/90 03/08/20 12:45 81 34 145/90 (108) 100 03/08/20 12:30 81 31 160/90 (113) 100 03/08/20 12:30 160/90 03/08/20 12:15 166/93 03/08/20 12:15 84 32 166/93 (117) 100 03/08/20 12:00 40 03/08/20 12:00 166/93 03/08/20 12:00 Mechanical Ventilator 03/08/20 12:00 82 03/08/20 12:00 82 30 166/93 (117) 100 03/08/20 11:20 73 30 40 03/08/20 11:15 71 33 151/89 (109) 100 03/08/20 11:11 65 14 99 03/08/20 11:00 157/82 03/08/20 11:00 71 32 157/82 (107) 100 03/08/20 10:45 72 30 151/92 (111) 100 03/08/20 10:35 73 26 151/84 (106) 100 03/08/20 10:30 75 28 152/85 (107) 100 03/08/20 10:25 75 30 150/84 (106) 100 Intake and Output 03/08/20 03/09/20 19:00 07:00 Intake Total 2347.70 ml 3167.48 ml Output Total 1400 ml 300 ml Balance 947.70 ml 2867.48 ml Free Water 1200 ml IV Total 2347.70 ml 1967.48 ml Output Urine Total 400 ml 300 ml Stool Total 0 ml Gastric Drainage Total 1000 ml # Bowel Movements 1 1 Laboratory Tests 03/08/20 18:15: White Blood Count 15.0H, Red Blood Count 2.19L, Hemoglobin 7.1L, Hematocrit 20.4L, Mean Corpuscular Volume 93, Mean Corpuscular Hemoglobin 32.6H, Mean Corpuscular Hemoglobin Concent 34.9, Red Cell Distribution Width 14.0, Platelet Count 111L, Mean Platelet Volume 6.4L, Neutrophils (%) (Auto) , Lymphocytes (%) (Auto) , Monocytes (%) (Auto) , Eosinophils (%) (Auto) , Basophils (%) (Auto) , Differential Total Cells Counted 100, Neutrophils % (Manual) 90H, Lymphocytes % (Manual) 4L, Monocytes % (Manual) 6, Eosinophils % (Manual) 0, Basophils % ( Manual) 0, Band Neutrophils 0, Platelet Estimate DecreasedL, Platelet Morphology Normal, Red Blood Cell Morphology Normal 03/09/20 05:45: White Blood Count 15.1H, Red Blood Count 2.79L, Hemoglobin 8.7L, Hematocrit 24.7L, Mean Corpuscular Volume 89, Mean Corpuscular Hemoglobin 31.1H, Mean Corpuscular Hemoglobin Concent 35.0, Red Cell Distribution Width 13.8, Platelet Count 96L, Mean Platelet Volume 5.1L, Neutrophils (%) (Auto) , Lymphocytes (%) ( Auto) , Monocytes (%) (Auto) , Eosinophils (%) (Auto) , Basophils (%) (Auto) , Differential Total Cells Counted 100, Neutrophils % (Manual) 93H, Lymphocytes % (Manual) 5L, Monocytes % (Manual) 2, Eosinophils % (Manual) 0, Basophils % ( Manual) 0, Band Neutrophils 0, Platelet Estimate DecreasedL, Platelet Morphology Normal, Hypochromasia 1+, Prothrombin Time 14.0H, Prothromb Time International Ratio 1.3H, Activated Partial Thromboplast Time 34H, Sodium Level 142, Potassium Level 3.0L, Chloride Level 110H, Carbon Dioxide Level 19L, Anion Gap 13, Blood Urea Nitrogen 108H, Creatinine 3.3H, Estimat Glomerular Filtration Rate 18.3, Glucose Level 112H, Calcium Level 7.0L, Total Bilirubin 0.4, Aspartate Amino Transf (AST/SGOT) 18, Alanine Aminotransferase (ALT/SGPT) 18, Alkaline Phosphatase 70, Total Protein 5.6L, Albumin 1.3L, Globulin 4.3, Albumin/Globulin Ratio 0.3L Height (Feet): 5 Height (Inches): 7.00 Weight (Pounds): 129 Objective On vent. Trach site miroslava. CV Tach. Lungs B ronchi. Abd distended. SNT. BS diminished. E contractures. +2 B edema. Neuro obtunded. Nonfocal. Ayanna Maldonado MD Mar 09, 2020 10:20
[2020-03-09] MEDS: levETIRAcetam 750 MG in NS 110 ML IV SCH ×2 (10:31→22:20)
--- NOTE | 2020-03-09 10:39 | Infectious Diseases Prog Note ---
Assessment/Plan Assessment/Plan A 1. pneumonia with Acinetobacter & ESBL Proteus 2. UTI 3. renal failure 4. shock 5. GI bleeding 6. diabetes mellitus 7. Positive blood cultures, likely contamination P 1. Discontinue iv vancomycin, Zosyn 2. Repeat CXR 3. Start on Meropenem & Colistin inhaler Subjective ROS Limited/Unobtainable: Yes Constitutional: Denies: fever Gastrointestinal/Abdominal: Reports: other - bleeding from GT Allergies: Coded Allergies: No Known Allergies (Unverified , 02/23/12) Objective Last 24 Hour Vital Signs Date Time Temp Pulse Resp B/P (MAP) Pulse Ox O2 Delivery O2 Flow Rate FiO2 03/09/20 10:00 129/80 03/09/20 10:00 117 31 129/80 (96) 100 03/09/20 09:30 118 32 131/86 (101) 100 03/09/20 09:00 111 29 133/85 (101) 100 03/09/20 09:00 133/85 03/09/20 08:45 118 35 134/86 (102) 100 03/09/20 08:42 119 128/85 03/09/20 08:30 119 31 128/85 (99) 100 03/09/20 08:25 134/85 03/09/20 08:15 116 28 134/85 (101) 100 03/09/20 08:00 98.5 128 36 137/88 (104) 100 03/09/20 08:00 Mechanical Ventilator 03/09/20 08:00 137/88 03/09/20 08:00 128 03/09/20 08:00 40 03/09/20 07:30 116 10 140/86 (104) 100 03/09/20 07:11 103 33 100 Mechanical Ventilator 40 111 35 40 03/09/20 07:00 109 19 142/82 (102) 100 03/09/20 07:00 142/82 03/09/20 06:45 104 5 122/83 (96) 100 03/09/20 06:30 109 39 137/73 (94) 100 03/09/20 06:15 103 23 140/85 (103) 100 03/09/20 06:00 110 29 137/83 (101) 100 03/09/20 05:45 110 6 143/84 (103) 100 03/09/20 05:30 113 30 138/84 (102) 100 03/09/20 05:15 114 33 141/86 (104) 100 03/09/20 05:00 141/86 03/09/20 05:00 126 30 140/88 (105) 100 03/09/20 04:45 102 32 153/96 (115) 100 03/09/20 04:30 98 34 142/92 (109) 100 03/09/20 04:15 96 37 151/95 (113) 100 03/09/20 04:00 97 37 152/96 (114) 100 03/09/20 04:00 Mechanical Ventilator 03/09/20 04:00 40 03/09/20 04:00 151/95 03/09/20 04:00 97 03/09/20 03:45 97 36 143/93 (110) 100 03/09/20 03:30 94 25 163/96 (118) 100 03/09/20 03:23 91 36 40 03/09/20 03:15 95 22 159/97 (117) 100 03/09/20 03:00 159/97 03/09/20 03:00 95 20 163/98 (119) 100 03/09/20 02:45 91 23 155/97 (116) 100 03/09/20 02:30 93 26 154/96 (115) 100 03/09/20 02:15 95 12 156/93 (114) 100 03/09/20 02:00 92 32 156/95 (115) 100 03/09/20 02:00 156/93 03/09/20 01:45 99 31 152/91 (111) 100 03/09/20 01:30 96 26 155/92 (113) 100 03/09/20 01:27 93 38 100 Mechanical Ventilator 40 98 40 03/09/20 01:15 92 19 147/89 (108) 100 03/09/20 01:00 147/89 03/09/20 01:00 92 17 148/90 (109) 100 03/09/20 00:45 91 18 147/91 (109) 100 03/09/20 00:30 91 13 149/90 (109) 100 03/09/20 00:15 90 25 146/88 (107) 100 03/09/20 00:00 95 18 143/88 (106) 100 9/10/20 00:00 146/88 03/09/20 00:00 Mechanical Ventilator 03/08/20 23:30 93 37 149/91 (110) 100 03/08/20 23:17 97 37 40 03/08/20 23:15 99 16 149/90 (109) 100 03/08/20 23:00 92 34 149/89 (109) 100 03/08/20 23:00 149/90 03/08/20 22:45 93 28 146/85 (105) 100 03/08/20 22:30 94 21 144/87 (106) 100 03/08/20 22:15 89 30 140/85 (103) 100 03/08/20 22:00 140/85 03/08/20 22:00 90 24 140/85 (103) 100 03/08/20 21:45 92 30 139/87 (104) 100 03/08/20 21:30 91 33 136/85 (102) 100 03/08/20 21:15 96 35 141/82 (101) 100 03/08/20 21:00 95 33 137/84 (101) 100 03/08/20 20:45 97 35 136/86 (103) 100 03/08/20 20:30 87 28 148/93 (111) 100 03/08/20 20:15 84 26 137/85 (102) 100 03/08/20 20:00 84 03/08/20 20:00 Mechanical Ventilator 03/08/20 20:00 40 03/08/20 20:00 84 23 136/87 (103) 100 03/08/20 19:45 85 27 137/84 (101) 100 03/08/20 19:30 83 31 131/85 (100) 100 03/08/20 19:30 86 39 100 Mechanical Ventilator 40 88 40 40 03/08/20 19:15 82 25 136/82 (100) 100 03/08/20 19:00 88 26 139/87 (104) 100 03/08/20 19:00 139/87 03/08/20 18:45 87 26 136/83 (100) 100 03/08/20 18:30 97 30 135/84 (101) 100 03/08/20 18:15 86 25 129/86 (100) 100 03/08/20 18:00 131/79 03/08/20 18:00 84 29 131/79 (96) 100 03/08/20 17:45 85 26 134/81 (98) 100 03/08/20 17:30 84 29 125/79 (94) 100 03/08/20 17:15 85 26 138/83 (101) 100 03/08/20 17:00 84 23 138/83 (101) 100 03/08/20 17:00 138/83 03/08/20 16:45 80 29 122/82 (95) 100 03/08/20 16:30 82 25 129/90 (103) 100 03/08/20 16:15 85 28 136/87 (103) 100 03/08/20 16:01 129/88 03/08/20 16:00 98.0 86 28 129/88 (102) 100 03/08/20 16:00 Mechanical Ventilator 03/08/20 16:00 85 03/08/20 16:00 40 03/08/20 15:45 96 26 126/87 (100) 100 03/08/20 15:30 94 28 132/93 (106) 100 03/08/20 15:15 94 32 148/92 (110) 100 03/08/20 15:15 85 37 40 03/08/20 15:00 137/90 03/08/20 15:00 89 34 137/90 (106) 100 03/08/20 14:45 89 32 140/89 (106) 100 03/08/20 14:30 88 32 137/85 (102) 100 03/08/20 14:15 81 5 129/82 (98) 100 03/08/20 14:00 141/90 03/08/20 14:00 83 17 141/90 (107) 100 03/08/20 13:45 83 14 131/86 (101) 100 03/08/20 13:30 88 23 146/83 (104) 100 03/08/20 13:15 87 24 139/83 (101) 100 03/08/20 13:11 84 38 100 Mechanical Ventilator 40 83 38 40 03/08/20 13:00 148/96 03/08/20 13:00 87 35 148/96 (113) 100 03/08/20 12:45 145/90 03/08/20 12:45 81 34 145/90 (108) 100 03/08/20 12:30 81 31 160/90 (113) 100 03/08/20 12:30 160/90 03/08/20 12:15 166/93 03/08/20 12:15 84 32 166/93 (117) 100 03/08/20 12:00 40 03/08/20 12:00 166/93 03/08/20 12:00 Mechanical Ventilator 03/08/20 12:00 82 03/08/20 12:00 82 30 166/93 (117) 100 03/08/20 11:20 73 30 40 03/08/20 11:15 71 33 151/89 (109) 100 03/08/20 11:11 65 14 99 03/08/20 11:00 157/82 03/08/20 11:00 71 32 157/82 (107) 100 03/08/20 10:45 72 30 151/92 (111) 100 03/08/20 10:35 73 26 151/84 (106) 03/08/20 10:30 75 28 152/85 (107) 100 Height (Feet): 5 Height (Inches): 7.00 Weight (Pounds): 129 HEENT: status post trach Respiratory/Chest: lungs clear, other - on ventilator Cardiovascular: tachycardia Abdomen: soft, non tender, other - GT & NG tubes, blood in GT Extremities: other - generalized edema Neurologic/Psychiatric: unresponsiveness, aphasia Laboratory Tests Test 03/08/20 18:15 03/09/20 05:45 White Blood Count 15.0 K/UL (4.8-10.8) H 15.1 K/UL (4.8-10.8) H Red Blood Count 2.19 M/UL (4.70-6.10) L 2.79 M/UL (4.70-6.10) L Hemoglobin 7.1 G/DL (14.2-18.0) L 8.7 G/DL (14.2-18.0) L Hematocrit 20.4 % (42.0-52.0) L 24.7 % (42.0-52.0) L Mean Corpuscular Volume 93 FL (80-99) 89 FL (80-99) Mean Corpuscular Hemoglobin 32.6 PG (27.0-31.0) H 31.1 PG (27.0-31.0) H Mean Corpuscular Hemoglobin Concent 34.9 G/DL (32.0-36.0) 35.0 G/DL (32.0-36.0) Red Cell Distribution Width 14.0 % (11.6-14.8) 13.8 % (11.6-14.8) Platelet Count 111 K/UL (150-450) L 96 K/UL (150-450) L Mean Platelet Volume 6.4 FL (6.5-10.1) L 5.1 FL (6.5-10.1) L Neutrophils (%) (Auto) % (45.0-75.0) % (45.0-75.0) Lymphocytes (%) (Auto) % (20.0-45.0) % (20.0-45.0) Monocytes (%) (Auto) % (1.0-10.0) % (1.0-10.0) Eosinophils (%) (Auto) % (0.0-3.0) % (0.0-3.0) Basophils (%) (Auto) % (0.0-2.0) % (0.0-2.0) Differential Total Cells Counted 100 100 Neutrophils % (Manual) 90 % (45-75) H 93 % (45-75) H Lymphocytes % (Manual) 4 % (20-45) L 5 % (20-45) L Monocytes % (Manual) 6 % (1-10) 2 % (1-10) Eosinophils % (Manual) 0 % (0-3) 0 % (0-3) Basophils % (Manual) 0 % (0-2) 0 % (0-2) Band Neutrophils 0 % (0-8) 0 % (0-8) Platelet Estimate Decreased L Decreased L Platelet Morphology Normal Normal Red Blood Cell Morphology Normal Hypochromasia 1+ Prothrombin Time 14.0 SEC (9.30-11.50) H Prothromb Time International Ratio 1.3 (0.9-1.1) H Activated Partial Thromboplast Time 34 SEC (23-33) H Sodium Level 142 MMOL/L (136-145) Potassium Level 3.0 MMOL/L (3.5-5.1) L Chloride Level 110 MMOL/L (98-107) H Carbon Dioxide Level 19 MMOL/L (21-32) L Anion Gap 13 mmol/L (5-15) Blood Urea Nitrogen 108 mg/dL (7-18) H Creatinine 3.3 MG/DL (0.55-1.30) H Estimat Glomerular Filtration Rate 18.3 mL/min (>60) Glucose Level 112 MG/DL (74-106) H Calcium Level 7.0 MG/DL (8.5-10.1) L Total Bilirubin 0.4 MG/DL (0.2-1.0) Aspartate Amino Transf (AST/SGOT) 18 U/L (15-37) Alanine Aminotransferase (ALT/SGPT) 18 U/L (12-78) Alkaline Phosphatase 70 U/L (46-116) Total Protein 5.6 G/DL (6.4-8.2) L Albumin 1.3 G/DL (3.4-5.0) L Globulin 4.3 g/dL Albumin/Globulin Ratio 0.3 (1.0-2.7) L Current Medications Medications (Trade) Dose Ordered Sig/Lanny Route PRN Reason Start Time Stop Time Status Last Admin Dose Admin Acetaminophen (Tylenol) 650 mg Q6H PRN ORAL MILD/TEMP 03/05/20 08:30 04/04/20 08:29 Albuterol/ Ipratropium (Albuterol/ Ipratropium) 3 ml Q6HRT HHN 03/05/20 13:00 03/10/20 12:59 03/09/20 07:03 Ascorbic Acid (Vitamin C) 500 mg DAILY GT 03/05/20 09:00 04/04/20 08:59 03/05/20 10:45 Chlorhexidine Gluconate (Kayla-Hex 2%) 1 applic DAILY@1999 TOPIC 03/05/20 21:00 06/03/20 20:59 03/08/20 19:59 Docusate Sodium (Colace) 100 mg THREE TIMES A DAY GT 03/05/20 09:00 04/04/20 08:59 03/05/20 10:44 Epoetin Asaf (Epoetin Asaf-EPBX(NON ESRD)) 3,000 unit -FRI SUBQ 03/10/20 21:00 06/08/20 20:59 Epoetin Asaf (Epoetin Asaf-EPBX(NON ESRD)) 4,000 unit SUBQ 03/10/20 21:00 06/08/20 20:59 Levetiracetam 750 mg/Sodium Chloride 117.5 ml @ 470 mls/hr Q12H IV 03/05/20 23:00 04/04/20 22:59 03/08/20 22:42 Levothyroxine Sodium (Synthroid) 50 mcg DAILY GT 03/05/20 09:00 04/04/20 08:59 03/09/20 08:24 Levothyroxine Sodium (Synthroid) 125 mcg DAILY GT 03/05/20 09:00 04/04/20 08:59 03/09/20 08:25 Lorazepam (Ativan 2mg/ml 1ml) 1 mg Q4H PRN IV For Seizures 03/07/20 06:15 03/14/20 06:14 Metoclopramide HCl (Reglan) 5 mg EVERY 6 HOURS IVP 03/08/20 12:00 04/07/20 11:59 03/09/20 05:32 Norepinephrine Bitartrate 16 mg/ Sodium Chloride 500 ml @ 0 mls/hr Q24H IV 03/06/20 08:30 04/05/20 08:29 03/07/20 22:54 Octreotide Acetate 500 mcg/ Sodium Chloride 500 ml @ 50 mls/hr Q10H IV 03/06/20 08:00 04/05/20 07:59 03/09/20 06:00 Pantoprazole 80 mg/Sodium Chloride 250 ml @ 25 mls/hr Q10H IV 03/05/20 12:30 04/04/20 12:29 03/09/20 05:17 Phenylephrine HCl 100 mg/Dextrose 250 ml @ 0 mls/hr Q24H IV 03/06/20 09:45 04/05/20 09:44 03/06/20 21:05 Piperacillin Sod/ Tazobactam Sod 3.375 gm/Sodium Chloride 110 ml @ 27.5 mls/hr Q12HR@0600,1800 IVPB 03/06/20 18:00 03/13/20 17:59 03/09/20 05:19 Potassium Chloride 100 ml @ 50 mls/hr ONCE ONCE IVPB 03/09/20 10:30 03/09/20 12:29 UNV Sodium Bicarbonate 100 ml/Dextrose/ Sodium Chloride 1,100 ml @ 125 mls/hr Q8H48M IV 03/08/20 16:00 04/07/20 15:59 03/09/20 00:59 [facility] 1 ea DAILY PRN MISC Per rx protocol 03/05/20 08:30 04/04/20 08:29 Janes Dumas MD Mar 09, 2020 10:39
--- NOTE | 2020-03-09 10:48 | Surgery Progress Note ---
Surgery Progress Note Subjective Additional Comments no acute events comfortable stable Objective Last 24 Hour Vital Signs Date Time Temp Pulse Resp B/P (MAP) Pulse Ox O2 Delivery O2 Flow Rate FiO2 03/09/20 10:00 129/80 03/09/20 10:00 117 31 129/80 (96) 100 03/09/20 09:30 118 32 131/86 (101) 100 03/09/20 09:00 111 29 133/85 (101) 100 03/09/20 09:00 133/85 03/09/20 08:45 118 35 134/86 (102) 100 03/09/20 08:42 119 128/85 03/09/20 08:30 119 31 128/85 (99) 100 03/09/20 08:25 134/85 03/09/20 08:15 116 28 134/85 (101) 100 03/09/20 08:00 98.5 128 36 137/88 (104) 100 03/09/20 08:00 Mechanical Ventilator 03/09/20 08:00 137/88 03/09/20 08:00 128 03/09/20 08:00 40 03/09/20 07:30 116 10 140/86 (104) 100 03/09/20 07:11 103 33 100 Mechanical Ventilator 40 111 35 40 03/09/20 07:00 109 19 142/82 (102) 100 03/09/20 07:00 142/82 03/09/20 06:45 104 5 122/83 (96) 100 03/09/20 06:30 109 39 137/73 (94) 100 03/09/20 06:15 103 23 140/85 (103) 100 03/09/20 06:00 110 29 137/83 (101) 100 03/09/20 05:45 110 6 143/84 (103) 100 03/09/20 05:30 113 30 138/84 (102) 100 03/09/20 05:15 114 33 141/86 (104) 100 03/09/20 05:00 141/86 03/09/20 05:00 126 30 140/88 (105) 100 03/09/20 04:45 102 32 153/96 (115) 100 03/09/20 04:30 98 34 142/92 (109) 100 03/09/20 04:15 96 37 151/95 (113) 100 03/09/20 04:00 97 37 152/96 (114) 100 03/09/20 04:00 Mechanical Ventilator 03/09/20 04:00 40 03/09/20 04:00 151/95 03/09/20 04:00 97 03/09/20 03:45 97 36 143/93 (110) 100 03/09/20 03:30 94 25 163/96 (118) 100 03/09/20 03:23 91 36 40 03/09/20 03:15 95 22 159/97 (117) 100 03/09/20 03:00 159/97 03/09/20 03:00 95 20 163/98 (119) 100 03/09/20 02:45 91 23 155/97 (116) 100 03/09/20 02:30 93 26 154/96 (115) 100 03/09/20 02:15 95 12 156/93 (114) 100 03/09/20 02:00 92 32 156/95 (115) 100 03/09/20 02:00 156/93 03/09/20 01:45 99 31 152/91 (111) 100 03/09/20 01:30 96 26 155/92 (113) 100 03/09/20 01:27 93 38 100 Mechanical Ventilator 40 98 40 03/09/20 01:15 92 19 147/89 (108) 100 03/09/20 01:00 147/89 03/09/20 01:00 92 17 148/90 (109) 100 03/09/20 00:45 91 18 147/91 (109) 100 03/09/20 00:30 91 13 149/90 (109) 100 03/09/20 00:15 90 25 146/88 (107) 100 03/09/20 00:00 95 18 143/88 (106) 100 03/09/20 00:00 146/88 03/09/20 00:00 Mechanical Ventilator 03/08/20 23:30 93 37 149/91 (110) 100 03/08/20 23:17 97 37 40 03/08/20 23:15 99 16 149/90 (109) 100 03/08/20 23:00 92 34 149/89 (109) 100 03/08/20 23:00 149/90 03/08/20 22:45 93 28 146/85 (105) 100 03/08/20 22:30 94 21 144/87 (106) 100 03/08/20 22:15 89 30 140/85 (103) 100 03/08/20 22:00 140/85 03/08/20 22:00 90 24 140/85 (103) 100 03/08/20 21:45 92 30 139/87 (104) 100 03/08/20 21:30 91 33 136/85 (102) 100 03/08/20 21:15 96 35 141/82 (101) 100 03/08/20 21:00 95 33 137/84 (101) 100 03/08/20 20:45 97 35 136/86 (103) 100 03/08/20 20:30 87 28 148/93 (111) 100 03/08/20 20:15 84 26 137/85 (102) 100 03/08/20 20:00 84 03/08/20 20:00 Mechanical Ventilator 03/08/20 20:00 40 03/08/20 20:00 84 23 136/87 (103) 100 03/08/20 19:45 85 27 137/84 (101) 100 03/08/20 19:30 83 31 131/85 (100) 100 03/08/20 19:30 86 39 100 Mechanical Ventilator 40 88 40 40 03/08/20 19:15 82 25 136/82 (100) 100 03/08/20 19:00 88 26 139/87 (104) 100 03/08/20 19:00 139/87 03/08/20 18:45 87 26 136/83 (100) 100 03/08/20 18:30 97 30 135/84 (101) 100 03/08/20 18:15 86 25 129/86 (100) 100 03/08/20 18:00 131/79 03/08/20 18:00 84 29 131/79 (96) 100 03/08/20 17:45 85 26 134/81 (98) 100 03/08/20 17:30 84 29 125/79 (94) 100 03/08/20 17:15 85 26 138/83 (101) 100 03/08/20 17:00 84 23 138/83 (101) 100 03/08/20 17:00 138/83 03/08/20 16:45 80 29 122/82 (95) 100 03/08/20 16:30 82 25 129/90 (103) 100 03/08/20 16:15 85 28 136/87 (103) 100 03/08/20 16:01 129/88 03/08/20 16:00 98.0 86 28 129/88 (102) 100 03/08/20 16:00 Mechanical Ventilator 03/08/20 16:00 85 03/08/20 16:00 40 03/08/20 15:45 96 26 126/87 (100) 100 03/08/20 15:30 94 28 132/93 (106) 100 03/08/20 15:15 94 32 148/92 (110) 100 03/08/20 15:15 85 37 40 03/08/20 15:00 137/90 03/08/20 15:00 89 34 137/90 (106) 100 03/08/20 14:45 89 32 140/89 (106) 100 03/08/20 14:30 88 32 137/85 (102) 100 03/08/20 14:15 81 5 129/82 (98) 100 03/08/20 14:00 141/90 03/08/20 14:00 83 17 141/90 (107) 100 03/08/20 13:45 83 14 131/86 (101) 100 03/08/20 13:30 88 23 146/83 (104) 100 03/08/20 13:15 87 24 139/83 (101) 100 03/08/20 13:11 84 38 100 Mechanical Ventilator 40 83 38 40 03/08/20 13:00 148/96 03/08/20 13:00 87 35 148/96 (113) 100 03/08/20 12:45 145/90 03/08/20 12:45 81 34 145/90 (108) 100 03/08/20 12:30 81 31 160/90 (113) 100 03/08/20 12:30 160/90 03/08/20 12:15 166/93 03/08/20 12:15 84 32 166/93 (117) 100 03/08/20 12:00 40 03/08/20 12:00 166/93 03/08/20 12:00 Mechanical Ventilator 03/08/20 12:00 82 03/08/20 12:00 82 30 166/93 (117) 100 03/08/20 11:20 73 30 40 03/08/20 11:15 71 33 151/89 (109) 100 03/08/20 11:11 65 14 99 03/08/20 11:00 157/82 03/08/20 11:00 71 32 157/82 (107) 100 I&O Intake and Output 03/08/20 03/09/20 19:00 07:00 Intake Total 2347.70 ml 3167.48 ml Output Total 1400 ml 300 ml Balance 947.70 ml 2867.48 ml Free Water 1200 ml IV Total 2347.70 ml 1967.48 ml Output Urine Total 400 ml 300 ml Stool Total 0 ml Gastric Drainage Total 1000 ml # Bowel Movements 1 1 Dressing: other Wound: other Drains: other Cardiovascular: RSR Respiratory: decreased breath sounds Abdomen: soft, non-tender, present bowel sounds Extremities: no edema, no tenderness Laboratory Tests Test 03/08/20 18:15 03/09/20 05:45 White Blood Count 15.0 K/UL (4.8-10.8) H 15.1 K/UL (4.8-10.8) H Red Blood Count 2.19 M/UL (4.70-6.10) L 2.79 M/UL (4.70-6.10) L Hemoglobin 7.1 G/DL (14.2-18.0) L 8.7 G/DL (14.2-18.0) L Hematocrit 20.4 % (42.0-52.0) L 24.7 % (42.0-52.0) L Mean Corpuscular Volume 93 FL (80-99) 89 FL (80-99) Mean Corpuscular Hemoglobin 32.6 PG (27.0-31.0) H 31.1 PG (27.0-31.0) H Mean Corpuscular Hemoglobin Concent 34.9 G/DL (32.0-36.0) 35.0 G/DL (32.0-36.0) Red Cell Distribution Width 14.0 % (11.6-14.8) 13.8 % (11.6-14.8) Platelet Count 111 K/UL (150-450) L 96 K/UL (150-450) L Mean Platelet Volume 6.4 FL (6.5-10.1) L 5.1 FL (6.5-10.1) L Neutrophils (%) (Auto) % (45.0-75.0) % (45.0-75.0) Lymphocytes (%) (Auto) % (20.0-45.0) % (20.0-45.0) Monocytes (%) (Auto) % (1.0-10.0) % (1.0-10.0) Eosinophils (%) (Auto) % (0.0-3.0) % (0.0-3.0) Basophils (%) (Auto) % (0.0-2.0) % (0.0-2.0) Differential Total Cells Counted 100 100 Neutrophils % (Manual) 90 % (45-75) H 93 % (45-75) H Lymphocytes % (Manual) 4 % (20-45) L 5 % (20-45) L Monocytes % (Manual) 6 % (1-10) 2 % (1-10) Eosinophils % (Manual) 0 % (0-3) 0 % (0-3) Basophils % (Manual) 0 % (0-2) 0 % (0-2) Band Neutrophils 0 % (0-8) 0 % (0-8) Platelet Estimate Decreased L Decreased L Platelet Morphology Normal Normal Red Blood Cell Morphology Normal Hypochromasia 1+ Prothrombin Time 14.0 SEC (9.30-11.50) H Prothromb Time International Ratio 1.3 (0.9-1.1) H Activated Partial Thromboplast Time 34 SEC (23-33) H Sodium Level 142 MMOL/L (136-145) Potassium Level 3.0 MMOL/L (3.5-5.1) L Chloride Level 110 MMOL/L (98-107) H Carbon Dioxide Level 19 MMOL/L (21-32) L Anion Gap 13 mmol/L (5-15) Blood Urea Nitrogen 108 mg/dL (7-18) H Creatinine Pending Estimat Glomerular Filtration Rate Pending Glucose Level 112 MG/DL (74-106) H Calcium Level 7.0 MG/DL (8.5-10.1) L Magnesium Level Pending Total Bilirubin 0.4 MG/DL (0.2-1.0) Aspartate Amino Transf (AST/SGOT) 18 U/L (15-37) Alanine Aminotransferase (ALT/SGPT) 18 U/L (12-78) Alkaline Phosphatase 70 U/L (46-116) Total Protein 5.6 G/DL (6.4-8.2) L Albumin 1.3 G/DL (3.4-5.0) L Globulin 4.3 g/dL Albumin/Globulin Ratio 0.3 (1.0-2.7) L Plan Problems: (1) Respiratory failure (2) GIB (gastrointestinal bleeding) Assessment & Plan: 79-year-old male with leukocytosis, anemia, NG tube inserted and bright blood identified. Plan for urgent EGD today. Protonix IV N.p.o. IV fluid resuscitation PRBC transfusion trend labs Care plan discussed with GI will await EGD findings Thank you for let me participate in patient's care will follow with recommendations EGD findings noted discussed with GI NG tube placed Continuous gastric irrigation and suction initiated plan for repeat scope soon (3) Aspiration pneumonia (4) Sepsis (5) ARF (acute renal failure) (6) HCAP (healthcare-associated pneumonia) (7) Dehydration (8) Hypokalemia (9) Hyperkalemia (10) Anemia (11) Decubitus skin ulcer Assessment & Plan: Pt presented on admission with gross contractures, Multiple Pressure Injuries, Tracheostomy. Skin Assessed under tracheal collar and no evidence of skin breakdown noted. Tear noted to urinary meatus- no exudate noted. Scrotum is erythematous with scattered satellite lesions. Large ulcer noted to R scrotal sac (L)4cm x (W)4.6cm. Base of wound is erythematous ,moist with Biofilm. Sacral DTPI with clusters of small islands of slough with surrounding maroon and indurated areas (L)8cm x (W)12cm.Mild Odor noted. Partial thickness Pressure Injury Upper/outer R buttocks(L)1.8cm x (W)1.3cm. Base of wound is moist and viable. Edges adherent to base of wound. Surrounding non-blanching erythema with scattered areas of shearing noted. Partial thickness Pressure Inferior lower R buttocks.(L)0.8cm x (W)1.2cm. Base of wound is moist and viable. Edges adherent to base of wound. Surrounding non- blanching erythema with scattered shearing noted extending into R ischial tuberosity. Clusters of small hyperpigmentation noted to L trochanteric and L ischial tuberosity. R Heel is fluctuant with scattered dry eschar and surrounding Non-Blanchable erythema.(L)6.5cm x (W)8cm. DTPI distal/lateral R foot(L)3cm x (W)3cm. Base of wound is maroon and fluctuant. dry eschar noted to tip of R 1st metatarsal with surrounding non-blanchable erythema extending dorsally and laterally of metatarsal(L)5cm x (W)1.3cm Non-Blanchable erythema that is fluctuant at base noted to dorso/lateral L 5th metatarsal(L)0.6cm x (W)0.3cm. L Heel is boggy with non-blanchable erythema laterally. Hyperpigmentation from previous wound noted at L heel. Tx.Plan: Cleanse Sacral wound with Saline. Apply TheraHoney to slough. Apply Moisture Barrier Paste periwound. Cover with Optifoam drsg. Change daily and prn. Apply Moisture Barrier Paste to Wounds R upper and lower R Buttocks. Cover each wound with Optifoam drsg. Change every 3 days and prn. Apply Zinc Oxide Paste to Scrotal Wounds TID and prn. Apply Betadine to wounds R heel and R foot . Cover with ABD Pads and wrap with Kerlix every 3 days and prn. Apply Betadine to L foot. Cover with ABD Pads and wrap with Kerlix every 3 days and prn. Cover Bony Prominences as needed with Optifoam drsgs. Reposition at least every 2hours or as tolerated. Off-load heels with pillow. 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
--- NOTE | 2020-03-09 11:36 | Pre-Procedure Note/Attestation ---
Pre-Procedure Note/Attestation Complete Prior to Procedure Planned Procedure: not applicable Procedure Narrative: egd Indications for Procedure Pre-Operative Diagnosis: gib Attestation I attest that I discussed the nature of the procedure; its benefits; risks and complications; and alternatives (and the risks and benefits of such alternatives ), prior to the procedure, with the patient (or the patient's legal guest service representative). I attest that, if there was a reasonable possibility of needing a blood transfusion, the patient (or the patient's legal guest service representative) was given the [facility] standardized written summary, pursuant to the Hiren Oscar Blood Safety Act ([place] Health and Safety Code # 1645, as amended). I attest that I re-evaluated the patient just prior to the surgery and that there has been no change in the patient's H&P, except as documented below: Clive Kuo MD Mar 09, 2020 11:36
--- NOTE | 2020-03-09 11:36 | General Progress Note ---
Assessment/Plan Status: stable, unchanged Assessment/Plan: Assessment - UGI Bleed - large fundus clot - colonic distention on KUB - malnutrition / low albumin - resp failure / trach - dysphagia / PEG - multiple contractures - OBS - Anemia - Azotemia - Acidosis Recommendations - transfuse to keep Hg> 7 - NPO - PPI - follow labs - repeat EGD today - CT after EGD POST PROCEDURE ADDENDUM EGD: Same findings as yesturday. Large blood clot in stomach, resilient to endoscopic removal Recommendations: - I d/w DPOA - he will come to see patient to make a decision re next step - ? surgical candidate for partial gastrectomy - ? transfer to [facility] for IR angio and coiling Subjective Allergies: Coded Allergies: No Known Allergies (Unverified , 02/23/12) Subjective events noted one more unit of PRBC overnight reglan given gastric lavage given d/w surgery re colonic distention on xrays repeat EGD for today Objective Last 24 Hour Vital Signs Date Time Temp Pulse Resp B/P (MAP) Pulse Ox O2 Delivery O2 Flow Rate FiO2 03/09/20 11:00 135/82 03/09/20 11:00 119 31 135/82 (99) 100 03/09/20 10:30 120 36 139/84 (102) 100 03/09/20 10:00 129/80 03/09/20 10:00 117 31 129/80 (96) 100 03/09/20 09:30 118 32 131/86 (101) 100 03/09/20 09:00 111 29 133/85 (101) 100 03/09/20 09:00 133/85 03/09/20 08:45 118 35 134/86 (102) 100 03/09/20 08:42 119 128/85 03/09/20 08:30 119 31 128/85 (99) 100 03/09/20 08:25 134/85 03/09/20 08:15 116 28 134/85 (101) 100 03/09/20 08:00 98.5 128 36 137/88 (104) 100 03/09/20 08:00 Mechanical Ventilator 03/09/20 08:00 137/88 03/09/20 08:00 128 03/09/20 08:00 40 03/09/20 07:30 116 10 140/86 (104) 100 03/09/20 07:11 103 33 100 Mechanical Ventilator 40 111 35 40 03/09/20 07:00 109 19 142/82 (102) 100 03/09/20 07:00 142/82 03/09/20 06:45 104 5 122/83 (96) 100 03/09/20 06:30 109 39 137/73 (94) 100 03/09/20 06:15 103 23 140/85 (103) 100 03/09/20 06:00 110 29 137/83 (101) 100 03/09/20 05:45 110 6 143/84 (103) 100 03/09/20 05:30 113 30 138/84 (102) 100 03/09/20 05:15 114 33 141/86 (104) 100 03/09/20 05:00 141/86 03/09/20 05:00 126 30 140/88 (105) 100 03/09/20 04:45 102 32 153/96 (115) 100 03/09/20 04:30 98 34 142/92 (109) 100 03/09/20 04:15 96 37 151/95 (113) 100 03/09/20 04:00 97 37 152/96 (114) 100 03/09/20 04:00 Mechanical Ventilator 03/09/20 04:00 40 03/09/20 04:00 151/95 03/09/20 04:00 97 03/09/20 03:45 97 36 143/93 (110) 100 03/09/20 03:30 94 25 163/96 (118) 100 03/09/20 03:23 91 36 40 03/09/20 03:15 95 22 159/97 (117) 100 03/09/20 03:00 159/97 03/09/20 03:00 95 20 163/98 (119) 100 03/09/20 02:45 91 23 155/97 (116) 100 03/09/20 02:30 93 26 154/96 (115) 100 03/09/20 02:15 95 12 156/93 (114) 100 03/09/20 02:00 92 32 156/95 (115) 100 03/09/20 02:00 156/93 03/09/20 01:45 99 31 152/91 (111) 100 03/09/20 01:30 96 26 155/92 (113) 100 03/09/20 01:27 93 38 100 Mechanical Ventilator 40 98 40 03/09/20 01:15 92 19 147/89 (108) 100 03/09/20 01:00 147/89 03/09/20 01:00 92 17 148/90 (109) 100 03/09/20 00:45 91 18 147/91 (109) 100 03/09/20 00:30 91 13 149/90 (109) 100 03/09/20 00:15 90 25 146/88 (107) 100 03/09/20 00:00 95 18 143/88 (106) 100 03/09/20 00:00 146/88 03/09/20 00:00 Mechanical Ventilator 03/08/20 23:30 93 37 149/91 (110) 100 03/08/20 23:17 97 37 40 03/08/20 23:15 99 16 149/90 (109) 100 03/08/20 23:00 92 34 149/89 (109) 100 03/08/20 23:00 149/90 03/08/20 22:45 93 28 146/85 (105) 100 03/08/20 22:30 94 21 144/87 (106) 100 03/08/20 22:15 89 30 140/85 (103) 100 03/08/20 22:00 140/85 03/08/20 22:00 90 24 140/85 (103) 100 03/08/20 21:45 92 30 139/87 (104) 100 03/08/20 21:30 91 33 136/85 (102) 100 03/08/20 21:15 96 35 141/82 (101) 100 03/08/20 21:00 95 33 137/84 (101) 100 03/08/20 20:45 97 35 136/86 (103) 100 03/08/20 20:30 87 28 148/93 (111) 100 03/08/20 20:15 84 26 137/85 (102) 100 03/08/20 20:00 84 03/08/20 20:00 Mechanical Ventilator 03/08/20 20:00 40 03/08/20 20:00 84 23 136/87 (103) 100 03/08/20 19:45 85 27 137/84 (101) 100 03/08/20 19:30 83 31 131/85 (100) 100 03/08/20 19:30 86 39 100 Mechanical Ventilator 40 88 40 40 03/08/20 19:15 82 25 136/82 (100) 100 03/08/20 19:00 88 26 139/87 (104) 100 03/08/20 19:00 139/87 03/08/20 18:45 87 26 136/83 (100) 100 03/08/20 18:30 97 30 135/84 (101) 100 03/08/20 18:15 86 25 129/86 (100) 100 03/08/20 18:00 131/79 03/08/20 18:00 84 29 131/79 (96) 100 03/08/20 17:45 85 26 134/81 (98) 100 03/08/20 17:30 84 29 125/79 (94) 100 03/08/20 17:15 85 26 138/83 (101) 100 03/08/20 17:00 84 23 138/83 (101) 100 03/08/20 17:00 138/83 03/08/20 16:45 80 29 122/82 (95) 100 03/08/20 16:30 82 25 129/90 (103) 100 03/08/20 16:15 85 28 136/87 (103) 100 03/08/20 16:01 129/88 03/08/20 16:00 98.0 86 28 129/88 (102) 100 03/08/20 16:00 Mechanical Ventilator 03/08/20 16:00 85 03/08/20 16:00 40 03/08/20 15:45 96 26 126/87 (100) 100 03/08/20 15:30 94 28 132/93 (106) 100 03/08/20 15:15 94 32 148/92 (110) 100 03/08/20 15:15 85 37 40 03/08/20 15:00 137/90 03/08/20 15:00 89 34 137/90 (106) 100 03/08/20 14:45 89 32 140/89 (106) 100 03/08/20 14:30 88 32 137/85 (102) 100 03/08/20 14:15 81 5 129/82 (98) 100 03/08/20 14:00 141/90 03/08/20 14:00 83 17 141/90 (107) 100 03/08/20 13:45 83 14 131/86 (101) 100 03/08/20 13:30 88 23 146/83 (104) 100 03/08/20 13:15 87 24 139/83 (101) 100 03/08/20 13:11 84 38 100 Mechanical Ventilator 40 83 38 40 03/08/20 13:00 148/96 03/08/20 13:00 87 35 148/96 (113) 100 03/08/20 12:45 145/90 03/08/20 12:45 81 34 145/90 (108) 100 03/08/20 12:30 81 31 160/90 (113) 100 03/08/20 12:30 160/90 03/08/20 12:15 166/93 03/08/20 12:15 84 32 166/93 (117) 100 03/08/20 12:00 40 03/08/20 12:00 166/93 03/08/20 12:00 Mechanical Ventilator 03/08/20 12:00 82 03/08/20 12:00 82 30 166/93 (117) 100 Intake and Output 03/08/20 03/09/20 19:00 07:00 Intake Total 2347.70 ml 3167.48 ml Output Total 1400 ml 300 ml Balance 947.70 ml 2867.48 ml Free Water 1200 ml IV Total 2347.70 ml 1967.48 ml Output Urine Total 400 ml 300 ml Stool Total 0 ml Gastric Drainage Total 1000 ml # Bowel Movements 1 1 Laboratory Tests 03/08/20 18:15: White Blood Count 15.0H, Red Blood Count 2.19L, Hemoglobin 7.1L, Hematocrit 20.4L, Mean Corpuscular Volume 93, Mean Corpuscular Hemoglobin 32.6H, Mean Corpuscular Hemoglobin Concent 34.9, Red Cell Distribution Width 14.0, Platelet Count 111L, Mean Platelet Volume 6.4L, Neutrophils (%) (Auto) , Lymphocytes (%) (Auto) , Monocytes (%) (Auto) , Eosinophils (%) (Auto) , Basophils (%) (Auto) , Differential Total Cells Counted 100, Neutrophils % (Manual) 90H, Lymphocytes % (Manual) 4L, Monocytes % (Manual) 6, Eosinophils % (Manual) 0, Basophils % ( Manual) 0, Band Neutrophils 0, Platelet Estimate DecreasedL, Platelet Morphology Normal, Red Blood Cell Morphology Normal 03/09/20 05:45: White Blood Count 15.1H, Red Blood Count 2.79L, Hemoglobin 8.7L, Hematocrit 24.7L, Mean Corpuscular Volume 89, Mean Corpuscular Hemoglobin 31.1H, Mean Corpuscular Hemoglobin Concent 35.0, Red Cell Distribution Width 13.8, Platelet Count 96L, Mean Platelet Volume 5.1L, Neutrophils (%) (Auto) , Lymphocytes (%) ( Auto) , Monocytes (%) (Auto) , Eosinophils (%) (Auto) , Basophils (%) (Auto) , Differential Total Cells Counted 100, Neutrophils % (Manual) 93H, Lymphocytes % (Manual) 5L, Monocytes % (Manual) 2, Eosinophils % (Manual) 0, Basophils % ( Manual) 0, Band Neutrophils 0, Platelet Estimate DecreasedL, Platelet Morphology Normal, Hypochromasia 1+, Prothrombin Time 14.0H, Prothromb Time International Ratio 1.3H, Activated Partial Thromboplast Time 34H, Sodium Level 142, Potassium Level 3.0L, Chloride Level 110H, Carbon Dioxide Level 19L, Anion Gap 13, Blood Urea Nitrogen 108H, Creatinine [Pending], Estimat Glomerular Filtration Rate [Pending], Glucose Level 112H, Calcium Level 7.0L, Magnesium Level [Pending], Total Bilirubin 0.4, Aspartate Amino Transf (AST/SGOT) 18, Alanine Aminotransferase (ALT/SGPT) 18, Alkaline Phosphatase 70, Total Protein 5.6L, Albumin 1.3L, Globulin 4.3, Albumin/Globulin Ratio 0.3L Height (Feet): 5 Height (Inches): 7.00 Weight (Pounds): 129 Objective Debilitated unresponsive man NCAT (+) trach coarse BS RR abd flat , (+) GT (+) contractures (+) skin breakdown Clive Kuo MD Mar 09, 2020 11:36
[2020-03-09 11:38] LABS: CREATININE 3.1 MG/DL (0.55-1.30)
[2020-03-09] MEDS: Meropenem 500 MG in NS 55 ML IVPB SCH ×2 (11:46→20:47)
[2020-03-09] MEDS ORDERED: fentaNYL 100 mcg/2 mL IV ONE (11:55)
[2020-03-09] MEDS ORDERED: NS 500ML IVPB ONE (11:55)
--- NOTE | 2020-03-09 12:18 | Diagnostic Imaging Report ---
Indication: Dyspnea Technique: One view of the chest Comparison: 03/05/2020 Findings: Bilateral interstitial and airspace infiltrates versus edema persists, unchanged. There is blunting of the right costophrenic sulcus, likely indicating developing pleural effusion. Left hemidiaphragm is obscured, may indicate pleural fluid or increasing consolidation at the left lung base. Tracheostomy is again demonstrated. Interim placement of an orogastric tube. Slightly less gaseous distention of the upper abdomen noted. Impression: Increasing bilateral pleural effusions and possible basilar consolidation. Extensive diffuse interstitial and airspace infiltrates persist. Satisfactory orogastric intubation
--- NOTE | 2020-03-09 13:00 | Immediate Post-Op Evaluation ---
Immediate Post-Op Evalulation Immediate Post-Op Evalulation Procedure: egd evacuation of clotts Date of Evaluation: Mar 09, 2020 Time of Evaluation: 12:59 IV Fluids: 200 Blood Products: none Estimated Blood Loss: n/a Urinary Output: none Blood Pressure Systolic: 92 Blood Pressure Diastolic: 48 Pulse Rate: 104 Respiratory Rate: 21 O2 Sat by Pulse Oximetry: 98 Temperature (Fahrenheit): 97.4 Pain Score (1-10): 1 Nausea: No Vomiting: No Complications none Patient Status: no response, ventilated, none Hydration Status: adequate Terrell Lindsay MD Mar 09, 2020 13:00
--- NOTE | 2020-03-09 13:02 | 48 Hour Post Anesthesia Eval ---
Post Anesthesia Evaluation Procedure: egd evacuation of clotts Date of Evaluation: Mar 09, 2020 Time of Evaluation: 14:20 Blood Pressure Systolic: 92 0: 48 Pulse Rate: 104 Respiratory Rate: 22 Temperature (Fahrenheit): 97.6 O2 Sat by Pulse Oximetry: 98 Airway: patent, other - tracheostomy Nausea: No Vomiting: No Pain Intensity: 1 Hydration Status: adequate Cardiopulmonary Status: no pressors Mental Status/LOC: patient returned to baseline Follow-up Care/Observations: n/a Post-Anesthesia Complications: none Follow-up care needed: N/A Terrell Lindsay MD Mar 09, 2020 13:02
[2020-03-09] MEDS ORDERED: Omnipaque-300 100ml vial INJ PRN (13:45)
--- NOTE | 2020-03-09 15:00 | General Progress Note ---
Assessment/Plan Problem List: (1) GIB (gastrointestinal bleeding) ICD Codes: K92.2 - Gastrointestinal hemorrhage, unspecified SNOMED: 18872015 (2) Sepsis ICD Codes: A41.9 - Sepsis, unspecified organism SNOMED: 50860157 Qualifiers: Qualified Codes: A41.9 - Sepsis, unspecified organism; R65.20 - Severe sepsis without septic shock; N17.9 - Acute kidney failure, unspecified (3) Respiratory failure ICD Codes: J96.90 - Respiratory failure, unspecified, unspecified whether with hypoxia or hypercapnia SNOMED: 503112302 Qualifiers: Qualified Codes: J96.01 - Acute respiratory failure with hypoxia (4) Aspiration pneumonia ICD Codes: J69.0 - Pneumonitis due to inhalation of food and vomit SNOMED: 120660366 Qualifiers: Qualified Codes: O74.0 - Aspiration pneumonitis due to anesthesia during labor and delivery (5) HCAP (healthcare-associated pneumonia) ICD Codes: J18.9 - Pneumonia, unspecified organism SNOMED: 422581358, 181411082 (6) ARF (acute renal failure) ICD Codes: N17.9 - Acute kidney failure, unspecified SNOMED: 05961858, 960454596 Qualifiers: Qualified Codes: N17.9 - Acute kidney failure, unspecified Status: stable, unchanged Assessment/Plan: transfuse prbc as needed octreotide and protonix drip serial cbc pressors- wean off as able ivf replace lytes iv abx vent support resp rx hold feeds sz rx repeaty endoscopy per GI full code critical prognosis still poor Subjective ROS Limited/Unobtainable: Yes Constitutional: Reports: malaise, weakness HEENT: Reports: no symptoms Cardiovascular: Reports: no symptoms Respiratory: Reports: cough, shortness of breath, sputum Gastrointestinal/Abdominal: Reports: black stools, tarry stools, blood in stool , difficulty swallowing Genitourinary: Reports: no symptoms Neurologic/Psychiatric: Reports: pre-existing deficit, seizure Endocrine: Reports: no symptoms Hematologic/Lymphatic: Reports: anemia Allergies: Coded Allergies: No Known Allergies (Unverified , 02/23/12) All Systems: reviewed and negative except above Subjective no events. still with blood from the gt. h/h stable. decreased pressor requirements. on iv abx. on PPI and octreotide. no fevers. no szs. Objective Last 24 Hour Vital Signs Date Time Temp Pulse Resp B/P (MAP) Pulse Ox O2 Delivery O2 Flow Rate FiO2 03/09/20 14:00 121/75 03/09/20 14:00 108 30 121/75 (90) 100 03/09/20 13:18 119 03/09/20 13:02 104 22 98 03/09/20 13:00 111 30 127/80 (96) 100 03/09/20 13:00 127/80 03/09/20 13:00 104 21 98 03/09/20 12:00 40 03/09/20 12:00 Mechanical Ventilator 03/09/20 12:00 122/78 03/09/20 12:00 108 03/09/20 12:00 98.6 108 26 122/78 (93) 100 03/09/20 11:30 116 37 125/83 (97) 100 03/09/20 11:00 135/82 03/09/20 11:00 119 31 135/82 (99) 100 03/09/20 10:39 114 39 40 03/09/20 10:30 120 36 139/84 (102) 100 03/09/20 10:00 129/80 03/09/20 10:00 117 31 129/80 (96) 100 03/09/20 09:30 118 32 131/86 (101) 100 03/09/20 09:00 111 29 133/85 (101) 100 03/09/20 09:00 133/85 03/09/20 08:45 118 35 134/86 (102) 100 03/09/20 08:42 119 128/85 03/09/20 08:30 119 31 128/85 (99) 100 03/09/20 08:25 134/85 03/09/20 08:15 116 28 134/85 (101) 100 03/09/20 08:00 98.5 128 36 137/88 (104) 100 03/09/20 08:00 Mechanical Ventilator 03/09/20 08:00 137/88 03/09/20 08:00 128 03/09/20 08:00 40 03/09/20 07:30 116 10 140/86 (104) 100 03/09/20 07:11 103 33 100 Mechanical Ventilator 40 111 35 40 03/09/20 07:00 109 19 142/82 (102) 100 03/09/20 07:00 142/82 03/09/20 06:45 104 5 122/83 (96) 100 03/09/20 06:30 109 39 137/73 (94) 100 03/09/20 06:15 103 23 140/85 (103) 100 03/09/20 06:00 110 29 137/83 (101) 100 03/09/20 05:45 110 6 143/84 (103) 100 03/09/20 05:30 113 30 138/84 (102) 100 03/09/20 05:15 114 33 141/86 (104) 100 03/09/20 05:00 141/86 03/09/20 05:00 126 30 140/88 (105) 100 03/09/20 04:45 102 32 153/96 (115) 100 03/09/20 04:30 98 34 142/92 (109) 100 03/09/20 04:15 96 37 151/95 (113) 100 03/09/20 04:00 97 37 152/96 (114) 100 03/09/20 04:00 Mechanical Ventilator 03/09/20 04:00 40 03/09/20 04:00 151/95 03/09/20 04:00 97 03/09/20 03:45 97 36 143/93 (110) 100 03/09/20 03:30 94 25 163/96 (118) 100 03/09/20 03:23 91 36 40 03/09/20 03:15 95 22 159/97 (117) 100 03/09/20 03:00 159/97 03/09/20 03:00 95 20 163/98 (119) 100 03/09/20 02:45 91 23 155/97 (116) 100 03/09/20 02:30 93 26 154/96 (115) 100 03/09/20 02:15 95 12 156/93 (114) 100 03/09/20 02:00 92 32 156/95 (115) 100 03/09/20 02:00 156/93 03/09/20 01:45 99 31 152/91 (111) 100 03/09/20 01:30 96 26 155/92 (113) 100 03/09/20 01:27 93 38 100 Mechanical Ventilator 40 98 40 03/09/20 01:15 92 19 147/89 (108) 100 03/09/20 01:00 147/89 03/09/20 01:00 92 17 148/90 (109) 100 03/09/20 00:45 91 18 147/91 (109) 100 03/09/20 00:30 91 13 149/90 (109) 100 03/09/20 00:15 90 25 146/88 (107) 100 03/09/20 00:00 95 18 143/88 (106) 100 03/09/20 00:00 146/88 03/09/20 00:00 Mechanical Ventilator 03/08/20 23:30 93 37 149/91 (110) 100 03/08/20 23:17 97 37 40 03/08/20 23:15 99 16 149/90 (109) 100 03/08/20 23:00 92 34 149/89 (109) 100 03/08/20 23:00 149/90 03/08/20 22:45 93 28 146/85 (105) 100 03/08/20 22:30 94 21 144/87 (106) 100 03/08/20 22:15 89 30 140/85 (103) 100 03/08/20 22:00 140/85 03/08/20 22:00 90 24 140/85 (103) 100 03/08/20 21:45 92 30 139/87 (104) 100 03/08/20 21:30 91 33 136/85 (102) 100 03/08/20 21:15 96 35 141/82 (101) 100 03/08/20 21:00 95 33 137/84 (101) 100 03/08/20 20:45 97 35 136/86 (103) 100 03/08/20 20:30 87 28 148/93 (111) 100 03/08/20 20:15 84 26 137/85 (102) 100 03/08/20 20:00 84 03/08/20 20:00 Mechanical Ventilator 03/08/20 20:00 40 03/08/20 20:00 84 23 136/87 (103) 100 03/08/20 19:45 85 27 137/84 (101) 100 03/08/20 19:30 83 31 131/85 (100) 100 03/08/20 19:30 86 39 100 Mechanical Ventilator 40 88 40 40 03/08/20 19:15 82 25 136/82 (100) 100 03/08/20 19:00 88 26 139/87 (104) 100 03/08/20 19:00 139/87 03/08/20 18:45 87 26 136/83 (100) 100 03/08/20 18:30 97 30 135/84 (101) 100 03/08/20 18:15 86 25 129/86 (100) 100 03/08/20 18:00 131/79 03/08/20 18:00 84 29 131/79 (96) 100 03/08/20 17:45 85 26 134/81 (98) 100 03/08/20 17:30 84 29 125/79 (94) 100 03/08/20 17:15 85 26 138/83 (101) 100 03/08/20 17:00 84 23 138/83 (101) 100 03/08/20 17:00 138/83 03/08/20 16:45 80 29 122/82 (95) 100 03/08/20 16:30 82 25 129/90 (103) 100 03/08/20 16:15 85 28 136/87 (103) 100 03/08/20 16:01 129/88 03/08/20 16:00 98.0 86 28 129/88 (102) 100 03/08/20 16:00 Mechanical Ventilator 03/08/20 16:00 85 03/08/20 16:00 40 03/08/20 15:45 96 26 126/87 (100) 100 03/08/20 15:30 94 28 132/93 (106) 100 03/08/20 15:15 94 32 148/92 (110) 100 03/08/20 15:15 85 37 40 03/08/20 15:00 137/90 03/08/20 15:00 89 34 137/90 (106) 100 Intake and Output 03/08/20 03/09/20 19:00 07:00 Intake Total 2347.70 ml 3167.48 ml Output Total 1400 ml 300 ml Balance 947.70 ml 2867.48 ml Free Water 1200 ml IV Total 2347.70 ml 1967.48 ml Output Urine Total 400 ml 300 ml Stool Total 0 ml Gastric Drainage Total 1000 ml # Bowel Movements 1 1 Laboratory Tests 03/08/20 18:15: White Blood Count 15.0H, Red Blood Count 2.19L, Hemoglobin 7.1L, Hematocrit 20.4L, Mean Corpuscular Volume 93, Mean Corpuscular Hemoglobin 32.6H, Mean Corpuscular Hemoglobin Concent 34.9, Red Cell Distribution Width 14.0, Platelet Count 111L, Mean Platelet Volume 6.4L, Neutrophils (%) (Auto) , Lymphocytes (%) (Auto) , Monocytes (%) (Auto) , Eosinophils (%) (Auto) , Basophils (%) (Auto) , Differential Total Cells Counted 100, Neutrophils % (Manual) 90H, Lymphocytes % (Manual) 4L, Monocytes % (Manual) 6, Eosinophils % (Manual) 0, Basophils % ( Manual) 0, Band Neutrophils 0, Platelet Estimate DecreasedL, Platelet Morphology Normal, Red Blood Cell Morphology Normal 03/09/20 05:45: White Blood Count 15.1H, Red Blood Count 2.79L, Hemoglobin 8.7L, Hematocrit 24.7L, Mean Corpuscular Volume 89, Mean Corpuscular Hemoglobin 31.1H, Mean Corpuscular Hemoglobin Concent 35.0, Red Cell Distribution Width 13.8, Platelet Count 96L, Mean Platelet Volume 5.1L, Neutrophils (%) (Auto) , Lymphocytes (%) ( Auto) , Monocytes (%) (Auto) , Eosinophils (%) (Auto) , Basophils (%) (Auto) , Differential Total Cells Counted 100, Neutrophils % (Manual) 93H, Lymphocytes % (Manual) 5L, Monocytes % (Manual) 2, Eosinophils % (Manual) 0, Basophils % ( Manual) 0, Band Neutrophils 0, Platelet Estimate DecreasedL, Platelet Morphology Normal, Hypochromasia 1+, Prothrombin Time 14.0H, Prothromb Time International Ratio 1.3H, Activated Partial Thromboplast Time 34H, Sodium Level 142, Potassium Level 3.0L, Chloride Level 110H, Carbon Dioxide Level 19L, Anion Gap 13, Blood Urea Nitrogen 108H, Creatinine 3.1H, Estimat Glomerular Filtration Rate 19.6, Glucose Level 112H, Calcium Level 7.0L, Magnesium Level 1.5L, Total Bilirubin 0.4, Aspartate Amino Transf (AST/SGOT) 18, Alanine Aminotransferase (ALT/SGPT) 18, Alkaline Phosphatase 70, Total Protein 5.6L, Albumin 1.3L, Globulin 4.3, Albumin/Globulin Ratio 0.3L Height (Feet): 5 Height (Inches): 7.00 Weight (Pounds): 129 Objective General Appearance: WD/WN, cachetic, thin EENT: normal ENT inspection Neck: non-tender, normal alignment, supple Cardiovascular: normal rate, regular rhythm Respiratory/Chest: chest wall non-tender, lungs clear, normal breath sounds, no respiratory distress, no accessory muscle use Abdomen: normal bowel sounds, non tender, soft, no organomegaly, no mass Edema: no edema noted Arm (L), no edema noted Arm (R) Neurologic: disoriented, unresponsive, aphasia Skin: normal pigmentation Lymphatic: normal anterior cervical (L), normal anterior cervical (R) Jimi Tellez MD Mar 09, 2020 15:00
[2020-03-09] MEDS ORDERED: NS 275ml ONE (17:02)
[2020-03-09] MEDS ORDERED: NS Irrig 1000ml ONE (17:02)
[2020-03-09] MEDS ORDERED: Tubing IV Secondary IV ONE (17:02)
[2020-03-09] MEDS ORDERED: Tubing IV Blood Pump IV ONE (17:02)
--- NOTE | 2020-03-09 17:50 | Diagnostic Imaging Report ---
Indication: Abdominal distention, upper GI bleed, colonic distention, malnutrition Technique: Spiral acquisitions obtained through the abdomen and pelvis. Enteric contrast given through gastrostomy tube. No IV contrast utilized, per referring physician request.. Multiplanar reconstructions were generated. Total dose length product 608 mGycm. CTDIvol(s) 10 mGy. Dose reduction achieved using automated exposure control Comparison: No comparison CT scan. Reference made to abdomen radiograph 03/08/2020 Findings: There is a rectal tube in place. The balloon is likely inflated within the anal canal rather than the distal rectum. There is marked rectal wall thickening and considerable edema of the perirectal fat. Prominent gas-filled right upper quadrant bowel seen on recent plain radiographs is demonstrated to be the cecum. Although the sacrum appears quite wide in transverse dimension (approximately 11.5 cm) it is not particularly distended in the AP plane, measuring 4.9 cm AP. The anatomy of the ascending colon and hepatic flexure is not well-defined, and it is unclear whether this represents a possible cecal bascule versus an unusually positioned but otherwise normal cecum. No definite wall thickening is evident. The terminal ileum is normal in caliber or collapsed. The remainder of the small bowel appears mildly dilated, gas and fluid-filled, and the transition point appears to be gradual. No definite small bowel wall thickening. There is a gastrostomy tube which appears to be well positioned at the gastric antrum body junction.. The stomach is distended. The gastric antrum and proximal duodenum appears somewhat thick walled. Ingested contrast has traversed a portion of the proximal small bowel. There is considerable material dependently within the stomach, displacing the ingested contrast. Surgical clips are seen in the mesenteric root inferior to the pancreatic tail and anterior to the proximal jejunum There is moderate free intraperitoneal fluid. No free intraperitoneal gas is demonstrated. Lack of IV contrast limits assessment of the solid organs. The liver, gallbladder, bile ducts, pancreas, spleen, adrenals, right kidney are unremarkable. Left kidney demonstrates a lower pole cyst. The bladder is mildly distended, and minimally thick-walled. There are bilateral right greater than left pleural effusions. There is bilateral basilar pulmonary parenchymal consolidation and/or edema consolidation. The heart is upper limits normal in size. There is extensive edema of the subcutaneous fat, less extensive edema of the mesenteric and retroperitoneal fat. The bones demonstrate a compression fracture deformity of the L1 vertebral body. There are degenerative changes at the lumbosacral junction. Impression: Poorly delineated cecal and ascending colon anatomy. Dilated bowel loop in the right upper quadrant seen on recent plain radiograph is demonstrated to be the cecum. It is dilated, although less severely than is suggested by the plain radiograph. The tip of the cecum is pointed cephalad. There is also dilatation of most of the small bowel, which is dilated, gas and fluid-filled, but the terminal ileum is nondilated. There is not a definite abrupt transition point. Findings may be purely on the basis of ileus with variant cecal anatomy and unusual hepato- colonic interposition, but the possibility of a cecal bascule or internal hernia causing ascending colon and/or distal small bowel obstruction should also be considered. Rectal tube balloon is dilated within the anal canal. Recommend deflation and repositioning Wall thickening of the distal sigmoid and rectum, with edema of the perirectal/perisigmoid fat, concerning for colitis. Distended stomach. Given stated clinical history of GI bleeding, material within the gastric fundus displacing the contrast likely represents blood clots, but any of this could also represent an endophytic mass lesion. There is no rand gastric fundal wall thickening. There is some wall thickening of the gastric antrum and duodenum, although this could in part be an artifact of lack of distention. Gastrostomy is in good position Moderate ascites Bilateral pleural effusions. Bilateral parenchymal consolidation, may reflect pulmonary edema versus parenchymal infiltrates Other evidence of anasarca, with diffuse edema of the subcutaneous fat, less severe edema of the abdominal fat L1 vertebral body compression fracture, age-indeterminate Other findings as noted, including degenerative spondylosis, left lower pole renal cyst. Findings discussed by phone with Dr. Geronimo and Dr. Kuo at the time of interpretation The CT scanner at [facility] is accredited by the [employer] and the scans are performed using protocols designed to limit radiation exposure to as low as reasonably achievable to attain images of sufficient resolution adequate for diagnostic evaluation.
[2020-03-09] MEDS: Dyna-Hex 2% Top Sol 2oz TOPIC SCH (19:46)
--- NOTE | 2020-03-09 21:01 | Cardiology Progress Note ---
Subjective DATE OF SERVICE: Mar 09, 2020 Remains in critical condition with guarded prognosis Has trach with mod secretions - on vent support S/P EGD x 2 - Ulcer with blood noted; continues to require PRBC transfusions Monitor: Sinus tachycardia Remains on pressor support with poor perfusion pressures. Objective Last 24 Hour Vital Signs Date Time Temp Pulse Resp B/P (MAP) Pulse Ox O2 Delivery O2 Flow Rate FiO2 03/09/20 20:00 Mechanical Ventilator 03/09/20 20:00 98.3 112 26 126/82 (97) 100 03/09/20 20:00 40 03/09/20 19:30 106 26 110/74 (86) 100 03/09/20 19:28 105 26 100 Mechanical Ventilator 40 03/09/20 19:16 104 27 Mechanical Ventilator 40 40 03/09/20 19:00 98 27 108/69 (82) 100 03/09/20 19:00 108/69 03/09/20 18:30 107 28 113/72 (86) 100 03/09/20 18:00 118 30 111/77 (88) 100 03/09/20 18:00 111/77 03/09/20 17:30 116 28 124/95 (105) 100 03/09/20 17:00 130 33 145/88 (107) 100 03/09/20 17:00 145/88 03/09/20 16:00 40 03/09/20 16:00 98.7 111 25 130/84 (99) 100 03/09/20 16:00 Mechanical Ventilator 03/09/20 16:00 111 03/09/20 15:59 130/84 03/09/20 15:30 113 35 142/92 (109) 100 03/09/20 15:00 148/94 03/09/20 15:00 116 36 148/94 (112) 100 03/09/20 14:52 120 33 40 03/09/20 14:30 118 37 137/104 (115) 100 03/09/20 14:00 121/75 03/09/20 14:00 108 30 121/75 (90) 100 03/09/20 13:18 119 03/09/20 13:02 104 22 98 03/09/20 13:00 111 30 127/80 (96) 100 03/09/20 13:00 127/80 03/09/20 13:00 104 21 98 03/09/20 12:00 40 03/09/20 12:00 Mechanical Ventilator 03/09/20 12:00 122/78 03/09/20 12:00 108 03/09/20 12:00 98.6 108 26 122/78 (93) 100 03/09/20 11:30 116 37 125/83 (97) 100 03/09/20 11:00 135/82 03/09/20 11:00 119 31 135/82 (99) 100 03/09/20 10:39 114 39 40 03/09/20 10:30 120 36 139/84 (102) 100 03/09/20 10:00 129/80 03/09/20 10:00 117 31 129/80 (96) 100 03/09/20 09:30 118 32 131/86 (101) 100 03/09/20 09:00 111 29 133/85 (101) 100 03/09/20 09:00 133/85 03/09/20 08:45 118 35 134/86 (102) 100 03/09/20 08:42 119 128/85 03/09/20 08:30 119 31 128/85 (99) 100 03/09/20 08:25 134/85 03/09/20 08:15 116 28 134/85 (101) 100 03/09/20 08:00 98.5 128 36 137/88 (104) 100 03/09/20 08:00 Mechanical Ventilator 03/09/20 08:00 137/88 03/09/20 08:00 128 03/09/20 08:00 40 03/09/20 07:30 116 10 140/86 (104) 100 03/09/20 07:11 103 33 100 Mechanical Ventilator 40 111 35 40 03/09/20 07:00 109 19 142/82 (102) 100 03/09/20 07:00 142/82 03/09/20 06:45 104 5 122/83 (96) 100 03/09/20 06:30 109 39 137/73 (94) 100 03/09/20 06:15 103 23 140/85 (103) 100 03/09/20 06:00 110 29 137/83 (101) 100 03/09/20 05:45 110 6 143/84 (103) 100 03/09/20 05:30 113 30 138/84 (102) 100 03/09/20 05:15 114 33 141/86 (104) 100 03/09/20 05:00 141/86 03/09/20 05:00 126 30 140/88 (105) 100 03/09/20 04:45 102 32 153/96 (115) 100 03/09/20 04:30 98 34 142/92 (109) 100 03/09/20 04:15 96 37 151/95 (113) 100 03/09/20 04:00 97 37 152/96 (114) 100 03/09/20 04:00 Mechanical Ventilator 03/09/20 04:00 40 03/09/20 04:00 151/95 03/09/20 04:00 97 03/09/20 03:45 97 36 143/93 (110) 100 03/09/20 03:30 94 25 163/96 (118) 100 03/09/20 03:23 91 36 40 03/09/20 03:15 95 22 159/97 (117) 100 03/09/20 03:00 159/97 03/09/20 03:00 95 20 163/98 (119) 100 03/09/20 02:45 91 23 155/97 (116) 100 03/09/20 02:30 93 26 154/96 (115) 100 03/09/20 02:15 95 12 156/93 (114) 100 03/09/20 02:00 92 32 156/95 (115) 100 03/09/20 02:00 156/93 03/09/20 01:45 99 31 152/91 (111) 100 03/09/20 01:30 96 26 155/92 (113) 100 03/09/20 01:27 93 38 100 Mechanical Ventilator 40 98 40 03/09/20 01:15 92 19 147/89 (108) 100 03/09/20 01:00 147/89 03/09/20 01:00 92 17 148/90 (109) 100 03/09/20 00:45 91 18 147/91 (109) 100 03/09/20 00:30 91 13 149/90 (109) 100 03/09/20 00:15 90 25 146/88 (107) 100 03/09/20 00:00 95 18 143/88 (106) 100 03/09/20 00:00 146/88 03/09/20 00:00 Mechanical Ventilator 03/08/20 23:30 93 37 149/91 (110) 100 03/08/20 23:17 97 37 40 03/08/20 23:15 99 16 149/90 (109) 100 03/08/20 23:00 92 34 149/89 (109) 100 03/08/20 23:00 149/90 03/08/20 22:45 93 28 146/85 (105) 100 03/08/20 22:30 94 21 144/87 (106) 100 03/08/20 22:15 89 30 140/85 (103) 100 03/08/20 22:00 140/85 03/08/20 22:00 90 24 140/85 (103) 100 03/08/20 21:45 92 30 139/87 (104) 100 03/08/20 21:30 91 33 136/85 (102) 100 03/08/20 21:15 96 35 141/82 (101) 100 03/08/20 21:00 95 33 137/84 (101) 100 ROS: unchanged from my dictation of 03/05/20 HEENT: Mechanically Ventilated, Thick Trach secretions RHYTHM: ST LUNGS: bilateral rhonchi CARDIAC: regular rhythm, normal S1 and S2, tachycardia ABDOMEN: normal bowel sounds, non tender, soft, no organomegaly, decreased bowel sounds, slightly distended, G-Tube intact EXTREMITIES: no calf tenderness, pitting edema - dependent Laboratory Tests Test 03/09/20 05:45 White Blood Count 15.1 K/UL (4.8-10.8) H Red Blood Count 2.79 M/UL (4.70-6.10) L Hemoglobin 8.7 G/DL (14.2-18.0) L Hematocrit 24.7 % (42.0-52.0) L Mean Corpuscular Volume 89 FL (80-99) Mean Corpuscular Hemoglobin 31.1 PG (27.0-31.0) H Mean Corpuscular Hemoglobin Concent 35.0 G/DL (32.0-36.0) Red Cell Distribution Width 13.8 % (11.6-14.8) Platelet Count 96 K/UL (150-450) L Mean Platelet Volume 5.1 FL (6.5-10.1) L Neutrophils (%) (Auto) % (45.0-75.0) Lymphocytes (%) (Auto) % (20.0-45.0) Monocytes (%) (Auto) % (1.0-10.0) Eosinophils (%) (Auto) % (0.0-3.0) Basophils (%) (Auto) % (0.0-2.0) Differential Total Cells Counted 100 Neutrophils % (Manual) 93 % (45-75) H Lymphocytes % (Manual) 5 % (20-45) L Monocytes % (Manual) 2 % (1-10) Eosinophils % (Manual) 0 % (0-3) Basophils % (Manual) 0 % (0-2) Band Neutrophils 0 % (0-8) Platelet Estimate Decreased L Platelet Morphology Normal Hypochromasia 1+ Prothrombin Time 14.0 SEC (9.30-11.50) H Prothromb Time International Ratio 1.3 (0.9-1.1) H Activated Partial Thromboplast Time 34 SEC (23-33) H Sodium Level 142 MMOL/L (136-145) Potassium Level 3.0 MMOL/L (3.5-5.1) L Chloride Level 110 MMOL/L (98-107) H Carbon Dioxide Level 19 MMOL/L (21-32) L Anion Gap 13 mmol/L (5-15) Blood Urea Nitrogen 108 mg/dL (7-18) H Creatinine 3.1 MG/DL (0.55-1.30) H Estimat Glomerular Filtration Rate 19.6 mL/min (>60) Glucose Level 112 MG/DL (74-106) H Calcium Level 7.0 MG/DL (8.5-10.1) L Magnesium Level 1.5 MG/DL (1.8-2.4) L Total Bilirubin 0.4 MG/DL (0.2-1.0) Aspartate Amino Transf (AST/SGOT) 18 U/L (15-37) Alanine Aminotransferase (ALT/SGPT) 18 U/L (12-78) Alkaline Phosphatase 70 U/L (46-116) Total Protein 5.6 G/DL (6.4-8.2) L Albumin 1.3 G/DL (3.4-5.0) L Globulin 4.3 g/dL Albumin/Globulin Ratio 0.3 (1.0-2.7) L Assessment/Plan Assessment/Plan Sepsis with shock Respiratory Failure Lactic acidosis Sinus tachycardia/PAFib Acute renal failure Aspiration PNA Leukocytosis Anemia GI Bleeding with shock Gastric ulcer Dysphagia with GTube Pressor support Vent support Antimicrobials IVF with bicarb DVT prophylaxis Transfuse PRBC's for hemoglobin below 7 gm/dl. Cont'd PPI and octreotide. Franko Pineda MD Mar 09, 2020 21:01
[2020-03-09] MEDS: Colistin for inhalation INH SCH (22:44)
--- NOTE | 2020-03-09 23:23 | Endoscopy Procedure Note ---
Endoscopy Procedure Note General Indication for Procedure: GIB Procedures Performed: EGD Operative Findings/Diagnosis: large blood clot in stomach Specimen: none Pt Tolerated Procedure Well: No Estimated Blood Loss: volume Anesthesia Anesthesiologist: see notes Anesthesia: MAC Medications Medication Given: see anesthesia record Inserted Devices Implant(s) used?: No GI Core Measures 50 yrs or older w/o bx or poly: Not Applicable 10yrs. F/U recommended: Not Applicable If not recommended, why?: Clive Kuo MD Mar 09, 2020 23:23
--- NOTE | 2020-03-09 23:25 | Brief Operative Note ---
Immediate Post Operative Note Operative Note Chief Complaint: gib Pre-op Diagnosis: gib Procedure: EGD Post-op Diagnosis: large blood clot in fundus, (+) GT, esophagitis Surgeon: marcelo Anesthesiologist: Cyndi Anesthesia: MAC Specimen: none Complications: none Condition: unstable Fluids: per anesthesia Estimated Blood Loss: none Drains: none Implant(s) used?: No Clive Kuo MD Mar 09, 2020 23:25
[2020-03-10] VITALS (36 sets, daily range): BP systolic 124–165; BP diastolic 73–100
[2020-03-10] MEDS: Albuterol/Ipratropium 3ml neb HHN SCH ×2 (00:57→07:23)
[2020-03-10] MEDS: Pantoprazole 80 MG in NS 250 ML IV SCH ×3 (02:48→21:53)
[2020-03-10] MEDS: Octreotide Acetate 500 MCG in Sodium Chloride 499 ML IV SCH ×3 (02:52→21:53)
[2020-03-10] MEDS: Metoclopramide 10mg/2ml Inj IVP SCH ×4 (05:11→23:08)
[2020-03-10 05:13] LABS: HEMATOCRIT 21.8 % (42.0-52.0); HEMOGLOBIN 7.4 G/DL (14.2-18.0); MEAN CORPUSCULAR VOLUME 89 FL (80-99); PLATELET COUNT 86 K/UL (150-450); RED BLOOD COUNT 2.45 M/UL (4.70-6.10); RED CELL DISTRIBUTION WIDTH 13.7 % (11.6-14.8); WHITE BLOOD COUNT 8.3 K/UL (4.8-10.8)
[2020-03-10 05:35] LABS: ALBUMIN 1.1 G/DL (3.4-5.0); ALBUMIN/GLOBULIN RATIO 0.3 (1.0-2.7); BILIRUBIN,TOTAL 0.3 MG/DL (0.2-1.0); CALCIUM 7.3 MG/DL (8.5-10.1); CREATININE 3.1 MG/DL (0.55-1.30)
[2020-03-10 06:17] LABS: POTASSIUM 2.6 MMOL/L (3.5-5.1)
[2020-03-10] MEDS: Phenylephrine 100 MG in D5W 240 ML IV SCH (08:00)
[2020-03-10] MEDS: Norepinephrine Bitartrate 16 MG in Sodium Chloride 484 ML IV SCH (08:05)
[2020-03-10] MEDS: Meropenem 500 MG in NS 55 ML IVPB SCH ×2 (08:05→20:19)
--- NOTE | 2020-03-10 08:24 | General Progress Note ---
Assessment/Plan Status: stable, unchanged Assessment/Plan: Assessment - UGI Bleed - large fundus clot - failed EGD x 2 - likely still actively bleeding and clot forming - aberrant cecal position on CT - malnutrition / low albumin - resp failure / trach - dysphagia / PEG - multiple contractures - OBS - Anemia - Azotemia - improving sepsis Recommendations - transfuse to keep Hg> 7 - NPO - PPI - follow labs - DPOA to decide on level of care - ? transfer to [facility] for angiogram - ? 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) He came to see patient last night Objective Last 24 Hour Vital Signs Date Time Temp Pulse Resp B/P (MAP) Pulse Ox O2 Delivery O2 Flow Rate FiO2 03/10/20 08:05 128/73 03/10/20 08:00 Mechanical Ventilator 03/10/20 08:00 99.0 97 30 128/73 (91) 100 03/10/20 08:00 40 03/10/20 07:30 105 31 148/84 (105) 100 03/10/20 07:01 97 32 100 Mechanical Ventilator 40 106 30 40 03/10/20 07:00 98 31 124/79 (94) 100 03/10/20 06:00 102 33 137/80 (99) 100 03/10/20 05:00 101 34 130/74 (92) 100 03/10/20 04:00 40 03/10/20 04:00 98.9 102 27 129/86 (100) 100 03/10/20 04:00 99 03/10/20 04:00 Mechanical Ventilator 03/10/20 03:06 109 32 40 03/10/20 03:00 107 28 132/86 (101) 100 03/10/20 02:00 117 28 146/100 (115) 100 03/10/20 01:08 101 26 100 Mechanical Ventilator 40 03/10/20 01:00 112 26 165/94 (117) 100 03/10/20 00:57 102 35 Mechanical Ventilator 40 40 03/10/20 00:00 93 03/10/20 00:00 98.7 102 33 134/77 (96) 100 03/10/20 00:00 Mechanical Ventilator 03/09/20 23:00 103 31 100 Mechanical Ventilator 40 03/09/20 23:00 100 20 130/80 (97) 100 03/09/20 22:44 92 31 Mechanical Ventilator 40 40 03/09/20 22:00 118 29 158/100 (119) 100 03/09/20 21:00 95 29 124/78 (93) 100 03/09/20 20:00 Mechanical Ventilator 03/09/20 20:00 98.3 112 26 126/82 (97) 100 03/09/20 20:00 109 03/09/20 20:00 40 03/09/20 19:28 105 26 100 Mechanical Ventilator 40 03/09/20 19:16 104 27 Mechanical Ventilator 40 40 03/09/20 19:00 98 27 108/69 (82) 100 03/09/20 19:00 108/69 03/09/20 18:30 107 28 113/72 (86) 100 03/09/20 18:00 118 30 111/77 (88) 100 03/09/20 18:00 111/77 03/09/20 17:30 116 28 124/95 (105) 100 03/09/20 17:00 130 33 145/88 (107) 100 03/09/20 17:00 145/88 03/09/20 16:00 40 03/09/20 16:00 98.7 111 25 130/84 (99) 100 03/09/20 16:00 Mechanical Ventilator 03/09/20 16:00 111 03/09/20 15:59 130/84 03/09/20 15:30 113 35 142/92 (109) 100 03/09/20 15:00 148/94 03/09/20 15:00 116 36 148/94 (112) 100 03/09/20 14:52 120 33 40 03/09/20 14:30 118 37 137/104 (115) 100 03/09/20 14:00 121/75 03/09/20 14:00 108 30 121/75 (90) 100 03/09/20 13:18 119 03/09/20 13:02 104 22 98 03/09/20 13:00 111 30 127/80 (96) 100 03/09/20 13:00 127/80 03/09/20 13:00 104 21 98 03/09/20 12:00 40 03/09/20 12:00 Mechanical Ventilator 03/09/20 12:00 122/78 03/09/20 12:00 108 03/09/20 12:00 98.6 108 26 122/78 (93) 100 03/09/20 11:30 116 37 125/83 (97) 100 03/09/20 11:00 135/82 03/09/20 11:00 119 31 135/82 (99) 100 03/09/20 10:39 114 39 40 03/09/20 10:30 120 36 139/84 (102) 100 03/09/20 10:00 129/80 03/09/20 10:00 117 31 129/80 (96) 100 03/09/20 09:30 118 32 131/86 (101) 100 03/09/20 09:00 111 29 133/85 (101) 100 03/09/20 09:00 133/85 03/09/20 08:45 118 35 134/86 (102) 100 03/09/20 08:42 119 128/85 03/09/20 08:30 119 31 128/85 (99) 100 03/09/20 08:25 134/85 Intake and Output 03/09/20 03/10/20 19:00 07:00 Intake Total 2571.66 ml 1997.5003 ml Output Total 1475 ml 710 ml Balance 1096.66 ml 1287.5003 ml IV Total 2571.66 ml 1997.5003 ml Output Urine Total 1450 ml 660 ml Stool Total 25 ml 50 ml # Voids 2 # Bowel Movements 2 Laboratory Tests 03/10/20 03:50: White Blood Count 8.3, Red Blood Count 2.45L, Hemoglobin 7.4L, Hematocrit 21.8L , Mean Corpuscular Volume 89, Mean Corpuscular Hemoglobin 30.4, Mean Corpuscular Hemoglobin Concent 34.2, Red Cell Distribution Width 13.7, Platelet Count 86L, Mean Platelet Volume 5.4L, Neutrophils (%) (Auto) , Lymphocytes (%) ( Auto) , Monocytes (%) (Auto) , Eosinophils (%) (Auto) , Basophils (%) (Auto) , Neutrophils % (Manual) [Pending], Lymphocytes % (Manual) [Pending], Platelet Estimate [Pending], Platelet Morphology [Pending], Sodium Level 144, Potassium Level 2.6*L, Chloride Level 111H, Carbon Dioxide Level 22, Anion Gap 11, Blood Urea Nitrogen 95H, Creatinine 3.1H, Estimat Glomerular Filtration Rate 19.6, Glucose Level 125H, Calcium Level 7.3L, Total Bilirubin 0.3, Aspartate Amino Transf (AST/SGOT) 22, Alanine Aminotransferase (ALT/SGPT) 16, Alkaline Phosphatase 61, Total Protein 5.1L, Albumin 1.1L, Globulin 4.0, Albumin/ Globulin Ratio 0.3L Height (Feet): 5 Height (Inches): 7.00 Weight (Pounds): 129 Objective Debilitated unresponsive man NCAT (+) trach coarse BS RR abd flat , (+) GT (+) contractures (+) skin breakdown Clive Kuo MD Mar 10, 2020 08:24
--- NOTE | 2020-03-10 08:42 | Critical Care Progress Note ---
Assessment/Plan Assessment/Plan Upper GI bleed Anemia due to acute blood loss H/o GERD, previous G tube Chronic Tracheostomy, Respiratory failure with elevatedCO2 Aspiration pneumonia Sepsis Renal insufficiency, hyperkalemia, metabolic acidosis Previous Pseudomonal Pneumonia H/o Paroxysmal Atrial Fibrillation Diabetes CRI Anemia s/p transfusion Prev CVA Chronic encephalopathy Seizure history Hypothyroidism Tachycardia pleural effusions anasarca with ascites rectal tube PLAN care noted IV antibiotics and cultures reviewed respiratory care as is Ventilatory support as is off load replace lytes as needed monitor fluid balance pressors as needd SNF meds supportive care GI recommendations suction no wean planned oxygen therapy prognosis poor for recovery monitor need for transfusion as needed full code medications/laboratory data/nursing notes/ICU care reviewed in detail note reviewed and edited care discussed with RN and RT ICU time spent >40 minutes Critical Care - Subjective Interval Events: CT noted low K replaced in ICU vitals noted ROS Limited/Unobtainable: Yes Condition: critical EKG Rhythm: Sinus Tachycardia Residuals: minimal Tube Feeding Tolerated: yes I&O: Intake and Output 03/09/20 03/10/20 19:00 07:00 Intake Total 2571.66 ml 1996.5003 ml Output Total 1475 ml 710 ml Balance 1096.66 ml 1287.5003 ml IV Total 2571.66 ml 1996.5003 ml Output Urine Total 1450 ml 660 ml Stool Total 25 ml 50 ml # Voids 2 # Bowel Movements 2 Critical Care - Objective Last 24 Hour Vital Signs Date Time Temp Pulse Resp B/P (MAP) Pulse Ox O2 Delivery O2 Flow Rate FiO2 03/10/20 08:13 100 03/10/20 08:05 128/73 03/10/20 08:00 Mechanical Ventilator 03/10/20 08:00 95 138/78 03/10/20 08:00 99.0 97 30 128/73 (91) 100 03/10/20 08:00 40 03/10/20 07:30 105 31 148/84 (105) 100 03/10/20 07:01 97 32 100 Mechanical Ventilator 40 106 30 40 03/10/20 07:00 98 31 124/79 (94) 100 03/10/20 06:00 102 33 137/80 (99) 100 03/10/20 05:00 101 34 130/74 (92) 100 03/10/20 04:00 40 03/10/20 04:00 98.9 102 27 129/86 (100) 100 03/10/20 04:00 99 03/10/20 04:00 Mechanical Ventilator 03/10/20 03:06 109 32 40 03/10/20 03:00 107 28 132/86 (101) 100 03/10/20 02:00 117 28 146/100 (115) 100 03/10/20 01:08 101 26 100 Mechanical Ventilator 40 03/10/20 01:00 112 26 165/94 (117) 100 03/10/20 00:57 102 35 Mechanical Ventilator 40 40 03/10/20 00:00 93 03/10/20 00:00 98.7 102 33 134/77 (96) 100 03/10/20 00:00 Mechanical Ventilator 03/09/20 23:00 103 31 100 Mechanical Ventilator 40 03/09/20 23:00 100 20 130/80 (97) 100 03/09/20 22:44 92 31 Mechanical Ventilator 40 40 03/09/20 22:00 118 29 158/100 (119) 100 03/09/20 21:00 95 29 124/78 (93) 100 03/09/20 20:00 Mechanical Ventilator 03/09/20 20:00 98.3 112 26 126/82 (97) 100 03/09/20 20:00 109 03/09/20 20:00 40 03/09/20 19:28 105 26 100 Mechanical Ventilator 40 03/09/20 19:16 104 27 Mechanical Ventilator 40 40 03/09/20 19:00 98 27 108/69 (82) 100 03/09/20 19:00 108/69 03/09/20 18:30 107 28 113/72 (86) 100 03/09/20 18:00 118 30 111/77 (88) 100 03/09/20 18:00 111/77 03/09/20 17:30 116 28 124/95 (105) 100 03/09/20 17:00 130 33 145/88 (107) 100 03/09/20 17:00 145/88 03/09/20 16:00 40 03/09/20 16:00 98.7 111 25 130/84 (99) 100 03/09/20 16:00 Mechanical Ventilator 03/09/20 16:00 111 03/09/20 15:59 130/84 03/09/20 15:30 113 35 142/92 (109) 100 03/09/20 15:00 148/94 03/09/20 15:00 116 36 148/94 (112) 100 03/09/20 14:52 120 33 40 03/09/20 14:30 118 37 137/104 (115) 100 03/09/20 14:00 121/75 03/09/20 14:00 108 30 121/75 (90) 100 03/09/20 13:18 119 03/09/20 13:02 104 22 98 03/09/20 13:00 111 30 127/80 (96) 100 03/09/20 13:00 127/80 03/09/20 13:00 104 21 98 03/09/20 12:00 40 03/09/20 12:00 Mechanical Ventilator 03/09/20 12:00 122/78 03/09/20 12:00 108 03/09/20 12:00 98.6 108 26 122/78 (93) 100 03/09/20 11:30 116 37 125/83 (97) 100 03/09/20 11:00 135/82 03/09/20 11:00 119 31 135/82 (99) 100 03/09/20 10:39 114 39 40 03/09/20 10:30 120 36 139/84 (102) 100 03/09/20 10:00 129/80 03/09/20 10:00 117 31 129/80 (96) 100 03/09/20 09:30 118 32 131/86 (101) 100 03/09/20 09:00 111 29 133/85 (101) 100 03/09/20 09:00 133/85 03/09/20 08:45 118 35 134/86 (102) 100 03/09/20 08:42 119 128/85 Labs: Labs Test 03/07/20 20:50 03/08/20 04:15 03/08/20 18:15 03/09/20 05:45 White Blood Count 14.7 K/UL (4.8-10.8) 11.0 K/UL (4.8-10.8) 15.0 K/UL (4.8-10.8) 15.1 K/UL (4.8-10.8) Red Blood Count 2.61 M/UL (4.70-6.10) 2.42 M/UL (4.70-6.10) 2.19 M/UL (4.70-6.10) 2.79 M/UL (4.70-6.10) Hemoglobin 8.4 G/DL (14.2-18.0) 7.6 G/DL (14.2-18.0) 7.1 G/DL (14.2-18.0) 8.7 G/DL (14.2-18.0) Hematocrit 24.6 % (42.0-52.0) 21.8 % (42.0-52.0) 20.4 % (42.0-52.0) 24.7 % (42.0-52.0) Mean Corpuscular Volume 94 FL (80-99) 90 FL (80-99) 93 FL (80-99) 89 FL (80- 99) Mean Corpuscular Hemoglobin 32.3 PG (27.0-31.0) 31.3 PG (27.0-31.0) 32.6 PG (27.0-31.0) 31.1 PG (27.0-31.0) Mean Corpuscular Hemoglobin Concent 34.4 G/DL (32.0-36.0) 34.7 G/DL (32.0-36.0) 34.9 G/DL (32.0-36.0) 35.0 G/DL (32.0-36.0) Red Cell Distribution Width 14.3 % (11.6-14.8) 13.4 % (11.6-14.8) 14.0 % (11.6-14.8) 13.8 % (11.6-14.8) Platelet Count 123 K/UL (150-450) 118 K/UL (150-450) 111 K/UL (150-450) 96 K/UL (150-450) Mean Platelet Volume 5.8 FL (6.5-10.1) 5.2 FL (6.5-10.1) 6.4 FL (6.5-10.1) 5.1 FL (6.5-10.1) Neutrophils (%) (Auto) 83.7 % (45.0-75.0) % (45.0-75.0) % (45.0-75.0) % (45.0-75.0) Lymphocytes (%) (Auto) 9.0 % (20.0-45.0) % (20.0-45.0) % (20.0-45.0) % (20.0-45.0) Monocytes (%) (Auto) 6.6 % (1.0-10.0) % (1.0-10.0) % (1.0-10.0) % (1.0-10.0) Eosinophils (%) (Auto) 0.2 % (0.0-3.0) % (0.0-3.0) % (0.0-3.0) % (0.0-3.0) Basophils (%) (Auto) 0.5 % (0.0-2.0) % (0.0-2.0) % (0.0-2.0) % (0.0-2.0) Sodium Level 142 MMOL/L (136-145) 142 MMOL/L (136-145) Potassium Level 3.5 MMOL/L (3.5-5.1) 3.0 MMOL/L (3.5-5.1) Chloride Level 110 MMOL/L (98-107) 110 MMOL/L (98-107) Carbon Dioxide Level 18 MMOL/L (21-32) 19 MMOL/L (21-32) Anion Gap 14 mmol/L (5-15) 13 mmol/L (5-15) Blood Urea Nitrogen 119 mg/dL (7-18) 108 mg/dL (7-18) Creatinine 3.4 MG/DL (0.55-1.30) 3.1 MG/DL (0.55-1.30) Estimat Glomerular Filtration Rate 17.7 mL/min (>60) 19.6 mL/min (>60) Glucose Level 180 MG/DL (74-106) 112 MG/DL (74-106) Calcium Level 7.4 MG/DL (8.5-10.1) 7.0 MG/DL (8.5-10.1) Total Bilirubin 0.4 MG/DL (0.2-1.0) 0.4 MG/DL (0.2-1.0) Aspartate Amino Transf (AST/SGOT) 17 U/L (15-37) 18 U/L (15-37) Alanine Aminotransferase (ALT/SGPT) 20 U/L (12-78) 18 U/L (12-78) Alkaline Phosphatase 64 U/L (46-116) 70 U/L (46-116) Total Protein 5.4 G/DL (6.4-8.2) 5.6 G/DL (6.4-8.2) Albumin 1.4 G/DL (3.4-5.0) 1.3 G/DL (3.4-5.0) Globulin 4.0 g/dL 4.3 g/dL Albumin/Globulin Ratio 0.3 (1.0-2.7) 0.3 (1.0-2.7) Random Vancomycin Level 15.7 ug/mL Differential Total Cells Counted 100 100 Neutrophils % (Manual) 90 % (45-75) 93 % (45-75) Lymphocytes % (Manual) 4 % (20-45) 5 % (20-45) Monocytes % (Manual) 6 % (1-10) 2 % (1-10) Eosinophils % (Manual) 0 % (0-3) 0 % (0-3) Basophils % (Manual) 0 % (0-2) 0 % (0-2) Band Neutrophils 0 % (0-8) 0 % (0-8) Platelet Estimate Decreased Decreased Platelet Morphology Normal Normal Red Blood Cell Morphology Normal Hypochromasia 1+ Prothrombin Time 14.0 SEC (9.30-11.50) Prothromb Time International Ratio 1.3 (0.9-1.1) Activated Partial Thromboplast Time 34 SEC (23-33) Magnesium Level 1.5 MG/DL (1.8-2.4) Test 03/10/20 03:50 White Blood Count 8.3 K/UL (4.8-10.8) Red Blood Count 2.45 M/UL (4.70-6.10) Hemoglobin 7.4 G/DL (14.2-18.0) Hematocrit 21.8 % (42.0-52.0) Mean Corpuscular Volume 89 FL (80-99) Mean Corpuscular Hemoglobin 30.4 PG (27.0-31.0) Mean Corpuscular Hemoglobin Concent 34.2 G/DL (32.0-36.0) Red Cell Distribution Width 13.7 % (11.6-14.8) Platelet Count 86 K/UL (150-450) Mean Platelet Volume 5.4 FL (6.5-10.1) Neutrophils (%) (Auto) % (45.0-75.0) Lymphocytes (%) (Auto) % (20.0-45.0) Monocytes (%) (Auto) % (1.0-10.0) Eosinophils (%) (Auto) % (0.0-3.0) Basophils (%) (Auto) % (0.0-2.0) Sodium Level 144 MMOL/L (136-145) Potassium Level 2.6 MMOL/L (3.5-5.1) Chloride Level 111 MMOL/L (98-107) Carbon Dioxide Level 22 MMOL/L (21-32) Anion Gap 11 mmol/L (5-15) Blood Urea Nitrogen 95 mg/dL (7-18) Creatinine 3.1 MG/DL (0.55-1.30) Estimat Glomerular Filtration Rate 19.6 mL/min (>60) Glucose Level 125 MG/DL (74-106) Calcium Level 7.3 MG/DL (8.5-10.1) Total Bilirubin 0.3 MG/DL (0.2-1.0) Aspartate Amino Transf (AST/SGOT) 22 U/L (15-37) Alanine Aminotransferase (ALT/SGPT) 16 U/L (12-78) Alkaline Phosphatase 61 U/L (46-116) Total Protein 5.1 G/DL (6.4-8.2) Albumin 1.1 G/DL (3.4-5.0) Globulin 4.0 g/dL Albumin/Globulin Ratio 0.3 (1.0-2.7) Objective: WDWN NAD chronically ill tachypneic reduced breath sounds bilaterally without rhonchi or wheeze [id number] tachy without MRG NABS nontender not distended; GT no CC edema nonfocal contracted line reviewed reviewed and edited Accucheck: 108 Mansoor Martinez MD Mar 10, 2020 08:42
[2020-03-10] MEDS: Sodium Bicarbonate 100 ML in D5 1/2NS 1,000 ML IV SCH ×2 (09:36→18:05)
[2020-03-10] MEDS: Colistin for inhalation INH SCH ×2 (10:09→22:31)
--- NOTE | 2020-03-10 11:07 | Infectious Diseases Prog Note ---
"Assessment/Plan Assessment/Plan antibiotics : meropenem, inhaled colistin A 1. proteus | e.coli | acenitobacter pneumonia COVID 19 negative 2. + blood cultures with coag neg staph contaminated 3. renal failure 4. shock 5. GI bleeding 6. diabetes mellitus P 1. continue meropenem, inhaled colistin 2. will follow up cultures Subjective ROS Limited/Unobtainable: Yes Allergies: Coded Allergies: No Known Allergies (Unverified , 02/23/12) Objective Last 24 Hour Vital Signs Date Time Temp Pulse Resp B/P (MAP) Pulse Ox O2 Delivery O2 Flow Rate FiO2 03/10/20 10:00 93 28 126/75 (92) 100 03/10/20 09:30 96 26 135/83 (100) 100 03/10/20 09:00 90 26 146/82 (103) 100 03/10/20 08:30 99 25 136/74 (94) 100 03/10/20 08:13 100 03/10/20 08:05 128/73 03/10/20 08:00 Mechanical Ventilator 03/10/20 08:00 95 138/78 03/10/20 08:00 99.0 97 30 128/73 (91) 100 03/10/20 08:00 40 03/10/20 07:30 105 31 148/84 (105) 100 03/10/20 07:01 97 32 100 Mechanical Ventilator 40 106 30 40 03/10/20 07:00 98 31 124/79 (94) 100 03/10/20 06:00 102 33 137/80 (99) 100 03/10/20 05:00 101 34 130/74 (92) 100 03/10/20 04:00 40 03/10/20 04:00 98.9 102 27 129/86 (100) 100 03/10/20 04:00 99 03/10/20 04:00 Mechanical Ventilator 03/10/20 03:06 109 32 40 03/10/20 03:00 107 28 132/86 (101) 100 03/10/20 02:00 117 28 146/100 (115) 100 03/10/20 01:08 101 26 100 Mechanical Ventilator 40 03/10/20 01:00 112 26 165/94 (117) 100 03/10/20 00:57 102 35 Mechanical Ventilator 40 40 03/10/20 00:00 93 03/10/20 00:00 98.7 102 33 134/77 (96) 100 03/10/20 00:00 Mechanical Ventilator 03/09/20 23:00 103 31 100 Mechanical Ventilator 40 03/09/20 23:00 100 20 130/80 (97) 100 03/09/20 22:44 92 31 Mechanical Ventilator 40 40 03/09/20 22:00 118 29 158/100 (119) 100 03/09/20 21:00 95 29 124/78 (93) 100 03/09/20 20:00 Mechanical Ventilator 03/09/20 20:00 98.3 112 26 126/82 (97) 100 03/09/20 20:00 109 03/09/20 20:00 40 03/09/20 19:28 105 26 100 Mechanical Ventilator 40 03/09/20 19:16 104 27 Mechanical Ventilator 40 40 03/09/20 19:00 98 27 108/69 (82) 100 03/09/20 19:00 108/69 03/09/20 18:30 107 28 113/72 (86) 100 03/09/20 18:00 118 30 111/77 (88) 100 03/09/20 18:00 111/77 03/09/20 17:30 116 28 124/95 (105) 100 03/09/20 17:00 130 33 145/88 (107) 100 03/09/20 17:00 145/88 03/09/20 16:00 40 03/09/20 16:00 98.7 111 25 130/84 (99) 100 03/09/20 16:00 Mechanical Ventilator 03/09/20 16:00 111 03/09/20 15:59 130/84 03/09/20 15:30 113 35 142/92 (109) 100 03/09/20 15:00 148/94 03/09/20 15:00 116 36 148/94 (112) 100 03/09/20 14:52 120 33 40 03/09/20 14:30 118 37 137/104 (115) 100 03/09/20 14:00 121/75 03/09/20 14:00 108 30 121/75 (90) 100 03/09/20 13:18 119 03/09/20 13:02 104 22 98 03/09/20 13:00 111 30 127/80 (96) 100 03/09/20 13:00 127/80 03/09/20 13:00 104 21 98 03/09/20 12:00 40 03/09/20 12:00 Mechanical Ventilator 03/09/20 12:00 122/78 03/09/20 12:00 108 03/09/20 12:00 98.6 108 26 122/78 (93) 100 03/09/20 11:30 116 37 125/83 (97) 100 Height (Feet): 5 Height (Inches): 7.00 Weight (Pounds): 129 HEENT: status post trach Respiratory/Chest: lungs clear Cardiovascular: normal rate, regular rhythm, no gallop/murmur Abdomen: soft, non tender, other - GT site bleeding Extremities: other - + edema Laboratory Tests Test 03/10/20 03:50 White Blood Count 8.3 K/UL (4.8-10.8) Red Blood Count 2.45 M/UL (4.70-6.10) L Hemoglobin 7.4 G/DL (14.2-18.0) L Hematocrit 21.8 % (42.0-52.0) L Mean Corpuscular Volume 89 FL (80-99) Mean Corpuscular Hemoglobin 30.4 PG (27.0-31.0) Mean Corpuscular Hemoglobin Concent 34.2 G/DL (32.0-36.0) Red Cell Distribution Width 13.7 % (11.6-14.8) Platelet Count 86 K/UL (150-450) L Mean Platelet Volume 5.4 FL (6.5-10.1) L Neutrophils (%) (Auto) % (45.0-75.0) Lymphocytes (%) (Auto) % (20.0-45.0) Monocytes (%) (Auto) % (1.0-10.0) Eosinophils (%) (Auto) % (0.0-3.0) Basophils (%) (Auto) % (0.0-2.0) Differential Total Cells Counted 100 Neutrophils % (Manual) 89 % (45-75) H Lymphocytes % (Manual) 5 % (20-45) L Monocytes % (Manual) 6 % (1-10) Eosinophils % (Manual) 0 % (0-3) Basophils % (Manual) 0 % (0-2) Band Neutrophils 0 % (0-8) Platelet Estimate Decreased L Platelet Morphology Normal Hypochromasia 3+ Anisocytosis 1+ Spherocytes 1+ Sodium Level 144 MMOL/L (136-145) Potassium Level 2.6 MMOL/L (3.5-5.1) *L Chloride Level 111 MMOL/L (98-107) H Carbon Dioxide Level 22 MMOL/L (21-32) Anion Gap 11 mmol/L (5-15) Blood Urea Nitrogen 95 mg/dL (7-18) H Creatinine 3.1 MG/DL (0.55-1.30) H Estimat Glomerular Filtration Rate 19.6 mL/min (>60) Glucose Level 125 MG/DL (74-106) H Calcium Level 7.3 MG/DL (8.5-10.1) L Total Bilirubin 0.3 MG/DL (0.2-1.0) Aspartate Amino Transf (AST/SGOT) 22 U/L (15-37) Alanine Aminotransferase (ALT/SGPT) 16 U/L (12-78) Alkaline Phosphatase 61 U/L (46-116) Total Protein 5.1 G/DL (6.4-8.2) L Albumin 1.1 G/DL (3.4-5.0) L Globulin 4.0 g/dL Albumin/Globulin Ratio 0.3 (1.0-2.7) L Current Medications Medications (Trade) Dose Ordered Sig/Lanny Route PRN Reason Start Time Stop Time Status Last Admin Dose Admin Acetaminophen (Tylenol) 650 mg Q6H PRN ORAL MILD/TEMP 03/05/20 08:30 04/04/20 08:29 Albuterol/ Ipratropium (Albuterol/ Ipratropium) 3 ml Q6HRT HHN 03/05/20 13:00 03/10/20 12:59 03/10/20 07:23 Barium Sulfate (Readi-Cat 2) 450 ml NOW PRN ORAL Radiology Procedure 03/09/20 13:45 03/11/20 13:32 Chlorhexidine Gluconate (Kayla-Hex 2%) 1 applic DAILY@1999 TOPIC 03/05/20 21:00 06/03/20 20:59 03/09/20 19:46 Colistimethate Sodium (Colistin *inhalation use only*) 75 mg Q12HR@10,22 INH 03/09/20 22:00 03/16/20 21:59 03/10/20 10:09 Epoetin Asaf (Epoetin Asaf-EPBX(NON ESRD)) 3,000 unit SUBQ 03/10/20 21:00 06/08/20 20:59 Epoetin Asaf (Epoetin Asaf-EPBX(NON ESRD)) 4,000 unit SUBQ 03/10/20 21:00 06/08/20 20:59 Iohexol (OMNIPAQUE-300 100ml) 100 ml NOW PRN INJ Radiology Procedure 03/09/20 13:45 03/11/20 13:32 Levetiracetam 750 mg/Sodium Chloride 117.5 ml @ 470 mls/hr Q12H IV 03/05/20 23:00 04/04/20 22:59 03/09/20 22:20 Levothyroxine Sodium (Synthroid) 125 mcg DAILY IV 03/10/20 09:00 04/09/20 08:59 03/10/20 08:19 Lorazepam (Ativan 2mg/ml 1ml) 1 mg Q4H PRN IV For Seizures 03/07/20 06:15 03/14/20 06:14 Meropenem 500 mg/ Sodium Chloride 55 ml @ 110 mls/hr EVERY 12 HOURS IVPB 03/09/20 12:00 03/14/20 11:59 03/10/20 08:05 Metoclopramide HCl (Reglan) 5 mg EVERY 6 HOURS IVP 03/08/20 12:00 04/07/20 11:59 03/10/20 05:11 Norepinephrine Bitartrate 16 mg/ Sodium Chloride 500 ml @ 0 mls/hr Q24H IV 03/06/20 08:30 04/05/20 08:29 03/07/20 22:54 Octreotide Acetate 500 mcg/ Sodium Chloride 500 ml @ 50 mls/hr Q10H IV 03/06/20 08:00 04/05/20 07:59 03/10/20 02:52 Pantoprazole 80 mg/Sodium Chloride 250 ml @ 25 mls/hr Q10H IV 03/05/20 12:30 04/04/20 12:29 03/10/20 02:48 Phenylephrine HCl 100 mg/Dextrose 250 ml @ 0 mls/hr Q24H IV 03/06/20 09:45 04/05/20 09:44 03/06/20 21:05 Potassium Chloride 100 ml @ 50 mls/hr Q2H IVPB 03/10/20 08:00 03/10/20 13:59 03/10/20 09:36 Sodium Bicarbonate 100 ml/Dextrose/ Sodium Chloride 1,100 ml @ 125 mls/hr Q8H48M IV 03/08/20 16:00 04/07/20 15:59 03/10/20 09:36 Isaak Hair MD Mar 10, 2020 11:07"
--- NOTE | 2020-03-10 11:42 | General Progress Note ---
Assessment/Plan Problem List: (1) GIB (gastrointestinal bleeding) ICD Codes: K92.2 - Gastrointestinal hemorrhage, unspecified SNOMED: 43116259 (2) Sepsis ICD Codes: A41.9 - Sepsis, unspecified organism SNOMED: 41675017 Qualifiers: Qualified Codes: A41.9 - Sepsis, unspecified organism; R65.20 - Severe sepsis without septic shock; N17.9 - Acute kidney failure, unspecified (3) Respiratory failure ICD Codes: J96.90 - Respiratory failure, unspecified, unspecified whether with hypoxia or hypercapnia SNOMED: 072389699 Qualifiers: Qualified Codes: J96.01 - Acute respiratory failure with hypoxia (4) Aspiration pneumonia ICD Codes: J69.0 - Pneumonitis due to inhalation of food and vomit SNOMED: 368883139 Qualifiers: Qualified Codes: O74.0 - Aspiration pneumonitis due to anesthesia during labor and delivery (5) HCAP (healthcare-associated pneumonia) ICD Codes: J18.9 - Pneumonia, unspecified organism SNOMED: 390275397, 319984896 (6) ARF (acute renal failure) ICD Codes: N17.9 - Acute kidney failure, unspecified SNOMED: 47569644, 388214851 Qualifiers: Qualified Codes: N17.9 - Acute kidney failure, unspecified Status: stable, unchanged Assessment/Plan: transfuse prbc as needed octreotide and protonix drip serial cbc pressors as needed ivf replace lytes iv abx vent support resp rx hold feeds sz rx full code critical prognosis still poor Subjective ROS Limited/Unobtainable: Yes Constitutional: Reports: malaise, weakness HEENT: Reports: no symptoms Cardiovascular: Reports: no symptoms Respiratory: Reports: shortness of breath, sputum Gastrointestinal/Abdominal: Reports: black stools, tarry stools, blood in stool , difficulty swallowing Genitourinary: Reports: no symptoms Neurologic/Psychiatric: Reports: pre-existing deficit, seizure Endocrine: Reports: no symptoms Hematologic/Lymphatic: Reports: anemia Allergies: Coded Allergies: No Known Allergies (Unverified , 02/23/12) All Systems: reviewed and negative except above Subjective no events. gi noted. still with blood from the rectum. h/h lower. off pressors. on iv abx. on PPI and octreotide. no fevers. no szs. Objective Last 24 Hour Vital Signs Date Time Temp Pulse Resp B/P (MAP) Pulse Ox O2 Delivery O2 Flow Rate FiO2 03/10/20 11:00 99 31 133/78 (96) 100 03/10/20 10:30 101 30 134/79 (97) 100 03/10/20 10:00 93 28 126/75 (92) 100 03/10/20 09:30 96 26 135/83 (100) 100 03/10/20 09:00 90 26 146/82 (103) 100 03/10/20 08:30 99 25 136/74 (94) 100 03/10/20 08:13 100 03/10/20 08:05 128/73 03/10/20 08:00 Mechanical Ventilator 03/10/20 08:00 95 138/78 03/10/20 08:00 99.0 97 30 128/73 (91) 100 03/10/20 08:00 40 03/10/20 07:30 105 31 148/84 (105) 100 03/10/20 07:01 97 32 100 Mechanical Ventilator 40 106 30 40 03/10/20 07:00 98 31 124/79 (94) 100 03/10/20 06:00 102 33 137/80 (99) 100 03/10/20 05:00 101 34 130/74 (92) 100 03/10/20 04:00 40 03/10/20 04:00 98.9 102 27 129/86 (100) 100 03/10/20 04:00 99 03/10/20 04:00 Mechanical Ventilator 03/10/20 03:06 109 32 40 03/10/20 03:00 107 28 132/86 (101) 100 03/10/20 02:00 117 28 146/100 (115) 100 03/10/20 01:08 101 26 100 Mechanical Ventilator 40 03/10/20 01:00 112 26 165/94 (117) 100 03/10/20 00:57 102 35 Mechanical Ventilator 40 40 03/10/20 00:00 93 03/10/20 00:00 98.7 102 33 134/77 (96) 100 03/10/20 00:00 Mechanical Ventilator 03/09/20 23:00 103 31 100 Mechanical Ventilator 40 03/09/20 23:00 100 20 130/80 (97) 100 03/09/20 22:44 92 31 Mechanical Ventilator 40 40 03/09/20 22:00 118 29 158/100 (119) 100 03/09/20 21:00 95 29 124/78 (93) 100 03/09/20 20:00 Mechanical Ventilator 03/09/20 20:00 98.3 112 26 126/82 (97) 100 03/09/20 20:00 109 03/09/20 20:00 40 03/09/20 19:28 105 26 100 Mechanical Ventilator 40 03/09/20 19:16 104 27 Mechanical Ventilator 40 40 03/09/20 19:00 98 27 108/69 (82) 100 03/09/20 19:00 108/69 03/09/20 18:30 107 28 113/72 (86) 100 03/09/20 18:00 118 30 111/77 (88) 100 03/09/20 18:00 111/77 03/09/20 17:30 116 28 124/95 (105) 100 03/09/20 17:00 130 33 145/88 (107) 100 03/09/20 17:00 145/88 03/09/20 16:00 40 03/09/20 16:00 98.7 111 25 130/84 (99) 100 03/09/20 16:00 Mechanical Ventilator 03/09/20 16:00 111 03/09/20 15:59 130/84 03/09/20 15:30 113 35 142/92 (109) 100 03/09/20 15:00 148/94 03/09/20 15:00 116 36 148/94 (112) 100 03/09/20 14:52 120 33 40 03/09/20 14:30 118 37 137/104 (115) 100 03/09/20 14:00 121/75 03/09/20 14:00 108 30 121/75 (90) 100 03/09/20 13:18 119 03/09/20 13:02 104 22 98 03/09/20 13:00 111 30 127/80 (96) 100 03/09/20 13:00 127/80 03/09/20 13:00 104 21 98 03/09/20 12:00 40 03/09/20 12:00 Mechanical Ventilator 03/09/20 12:00 122/78 03/09/20 12:00 108 03/09/20 12:00 98.6 108 26 122/78 (93) 100 Intake and Output 03/09/20 03/10/20 19:00 07:00 Intake Total 2571.66 ml 1997.5003 ml Output Total 1475 ml 710 ml Balance 1096.66 ml 1287.5003 ml IV Total 2571.66 ml 1997.5003 ml Output Urine Total 1450 ml 660 ml Stool Total 25 ml 50 ml # Voids 2 # Bowel Movements 2 Laboratory Tests 03/10/20 03:50: White Blood Count 8.3, Red Blood Count 2.45L, Hemoglobin 7.4L, Hematocrit 21.8L , Mean Corpuscular Volume 89, Mean Corpuscular Hemoglobin 30.4, Mean Corpuscular Hemoglobin Concent 34.2, Red Cell Distribution Width 13.7, Platelet Count 86L, Mean Platelet Volume 5.4L, Neutrophils (%) (Auto) , Lymphocytes (%) ( Auto) , Monocytes (%) (Auto) , Eosinophils (%) (Auto) , Basophils (%) (Auto) , Differential Total Cells Counted 100, Neutrophils % (Manual) 89H, Lymphocytes % (Manual) 5L, Monocytes % (Manual) 6, Eosinophils % (Manual) 0, Basophils % ( Manual) 0, Band Neutrophils 0, Platelet Estimate DecreasedL, Platelet Morphology Normal, Hypochromasia 3+, Anisocytosis 1+, Spherocytes 1+, Sodium Level 144, Potassium Level 2.6*L, Chloride Level 111H, Carbon Dioxide Level 22, Anion Gap 11, Blood Urea Nitrogen 95H, Creatinine 3.1H, Estimat Glomerular Filtration Rate 19.6, Glucose Level 125H, Calcium Level 7.3L, Total Bilirubin 0.3, Aspartate Amino Transf (AST/SGOT) 22, Alanine Aminotransferase (ALT/SGPT) 16, Alkaline Phosphatase 61, Total Protein 5.1L, Albumin 1.1L, Globulin 4.0, Albumin/Globulin Ratio 0.3L Height (Feet): 5 Height (Inches): 7.00 Weight (Pounds): 129 Objective General Appearance: WD/WN, cachetic, thin EENT: normal ENT inspection Neck: non-tender, normal alignment, supple Cardiovascular: normal rate, regular rhythm Respiratory/Chest: chest wall non-tender, lungs clear, normal breath sounds, no respiratory distress, no accessory muscle use Abdomen: normal bowel sounds, non tender, soft, no organomegaly, no mass Edema: no edema noted Arm (L), no edema noted Arm (R) Neurologic: disoriented, unresponsive, aphasia Skin: normal pigmentation Lymphatic: normal anterior cervical (L), normal anterior cervical (R) Jimi Tellez MD Mar 10, 2020 11:42
[2020-03-10] MEDS: levETIRAcetam 750 MG in NS 110 ML IV SCH ×2 (11:48→23:08)
--- NOTE | 2020-03-10 11:51 | Surgery Progress Note ---
Surgery Progress Note Subjective Additional Comments afebrile h/h relatively stable ct reviewed EGD f/u/ noted prognosis guarded Objective Last 24 Hour Vital Signs Date Time Temp Pulse Resp B/P (MAP) Pulse Ox O2 Delivery O2 Flow Rate FiO2 03/10/20 11:00 99 31 133/78 (96) 100 03/10/20 10:30 101 30 134/79 (97) 100 03/10/20 10:00 93 28 126/75 (92) 100 03/10/20 09:30 96 26 135/83 (100) 100 03/10/20 09:00 90 26 146/82 (103) 100 03/10/20 08:30 99 25 136/74 (94) 100 03/10/20 08:13 100 03/10/20 08:05 128/73 03/10/20 08:00 Mechanical Ventilator 03/10/20 08:00 95 138/78 03/10/20 08:00 99.0 97 30 128/73 (91) 100 03/10/20 08:00 40 03/10/20 07:30 105 31 148/84 (105) 100 03/10/20 07:01 97 32 100 Mechanical Ventilator 40 106 30 40 03/10/20 07:00 98 31 124/79 (94) 100 03/10/20 06:00 102 33 137/80 (99) 100 03/10/20 05:00 101 34 130/74 (92) 100 03/10/20 04:00 40 03/10/20 04:00 98.9 102 27 129/86 (100) 100 03/10/20 04:00 99 03/10/20 04:00 Mechanical Ventilator 03/10/20 03:06 109 32 40 03/10/20 03:00 107 28 132/86 (101) 100 03/10/20 02:00 117 28 146/100 (115) 100 03/10/20 01:08 101 26 100 Mechanical Ventilator 40 03/10/20 01:00 112 26 165/94 (117) 100 03/10/20 00:57 102 35 Mechanical Ventilator 40 40 03/10/20 00:00 93 03/10/20 00:00 98.7 102 33 134/77 (96) 100 03/10/20 00:00 Mechanical Ventilator 03/09/20 23:00 103 31 100 Mechanical Ventilator 40 03/09/20 23:00 100 20 130/80 (97) 100 03/09/20 22:44 92 31 Mechanical Ventilator 40 40 03/09/20 22:00 118 29 158/100 (119) 100 03/09/20 21:00 95 29 124/78 (93) 100 03/09/20 20:00 Mechanical Ventilator 03/09/20 20:00 98.3 112 26 126/82 (97) 100 03/09/20 20:00 109 03/09/20 20:00 40 03/09/20 19:28 105 26 100 Mechanical Ventilator 40 03/09/20 19:16 104 27 Mechanical Ventilator 40 40 03/09/20 19:00 98 27 108/69 (82) 100 03/09/20 19:00 108/69 03/09/20 18:30 107 28 113/72 (86) 100 03/09/20 18:00 118 30 111/77 (88) 100 03/09/20 18:00 111/77 03/09/20 17:30 116 28 124/95 (105) 100 03/09/20 17:00 130 33 145/88 (107) 100 03/09/20 17:00 145/88 03/09/20 16:00 40 03/09/20 16:00 98.7 111 25 130/84 (99) 100 03/09/20 16:00 Mechanical Ventilator 03/09/20 16:00 111 03/09/20 15:59 130/84 03/09/20 15:30 113 35 142/92 (109) 100 03/09/20 15:00 148/94 03/09/20 15:00 116 36 148/94 (112) 100 03/09/20 14:52 120 33 40 03/09/20 14:30 118 37 137/104 (115) 100 03/09/20 14:00 121/75 03/09/20 14:00 108 30 121/75 (90) 100 03/09/20 13:18 119 03/09/20 13:02 104 22 98 03/09/20 13:00 111 30 127/80 (96) 100 03/09/20 13:00 127/80 03/09/20 13:00 104 21 98 03/09/20 12:00 40 03/09/20 12:00 Mechanical Ventilator 03/09/20 12:00 122/78 03/09/20 12:00 108 03/09/20 12:00 98.6 108 26 122/78 (93) 100 I&O Intake and Output 03/09/20 03/10/20 19:00 07:00 Intake Total 2571.66 ml 1997.5003 ml Output Total 1475 ml 710 ml Balance 1096.66 ml 1287.5003 ml IV Total 2571.66 ml 1996.5003 ml Output Urine Total 1450 ml 660 ml Stool Total 25 ml 50 ml # Voids 2 # Bowel Movements 2 Dressing: other Wound: other Cardiovascular: RSR Respiratory: decreased breath sounds Abdomen: soft, non-tender, present bowel sounds, non-distended Extremities: no tenderness, no cyanosis Laboratory Tests Test 03/10/20 03:50 White Blood Count 8.3 K/UL (4.8-10.8) Red Blood Count 2.45 M/UL (4.70-6.10) L Hemoglobin 7.4 G/DL (14.2-18.0) L Hematocrit 21.8 % (42.0-52.0) L Mean Corpuscular Volume 89 FL (80-99) Mean Corpuscular Hemoglobin 30.4 PG (27.0-31.0) Mean Corpuscular Hemoglobin Concent 34.2 G/DL (32.0-36.0) Red Cell Distribution Width 13.7 % (11.6-14.8) Platelet Count 86 K/UL (150-450) L Mean Platelet Volume 5.4 FL (6.5-10.1) L Neutrophils (%) (Auto) % (45.0-75.0) Lymphocytes (%) (Auto) % (20.0-45.0) Monocytes (%) (Auto) % (1.0-10.0) Eosinophils (%) (Auto) % (0.0-3.0) Basophils (%) (Auto) % (0.0-2.0) Differential Total Cells Counted 100 Neutrophils % (Manual) 89 % (45-75) H Lymphocytes % (Manual) 5 % (20-45) L Monocytes % (Manual) 6 % (1-10) Eosinophils % (Manual) 0 % (0-3) Basophils % (Manual) 0 % (0-2) Band Neutrophils 0 % (0-8) Platelet Estimate Decreased L Platelet Morphology Normal Hypochromasia 3+ Anisocytosis 1+ Spherocytes 1+ Sodium Level 144 MMOL/L (136-145) Potassium Level 2.6 MMOL/L (3.5-5.1) *L Chloride Level 111 MMOL/L (98-107) H Carbon Dioxide Level 22 MMOL/L (21-32) Anion Gap 11 mmol/L (5-15) Blood Urea Nitrogen 95 mg/dL (7-18) H Creatinine 3.1 MG/DL (0.55-1.30) H Estimat Glomerular Filtration Rate 19.6 mL/min (>60) Glucose Level 125 MG/DL (74-106) H Calcium Level 7.3 MG/DL (8.5-10.1) L Total Bilirubin 0.3 MG/DL (0.2-1.0) Aspartate Amino Transf (AST/SGOT) 22 U/L (15-37) Alanine Aminotransferase (ALT/SGPT) 16 U/L (12-78) Alkaline Phosphatase 61 U/L (46-116) Total Protein 5.1 G/DL (6.4-8.2) L Albumin 1.1 G/DL (3.4-5.0) L Globulin 4.0 g/dL Albumin/Globulin Ratio 0.3 (1.0-2.7) L Plan Problems: (1) Respiratory failure (2) GIB (gastrointestinal bleeding) Assessment & Plan: 79-year-old male with leukocytosis, anemia, NG tube inserted and bright blood identified. Plan for urgent EGD today. Protonix IV N.p.o. IV fluid resuscitation PRBC transfusion trend labs Care plan discussed with GI will await EGD findings Thank you for let me participate in patient's care will follow with recommendations EGD findings noted discussed with GI NG tube placed Continuous gastric irrigation and suction initiated plan for repeat scope soon repeat scope noted unchanged cannot remove clot CT reviewed surgery too high risk no active bleeding trend h/h There is a rectal tube in place. The balloon is likely inflated within the anal canal rather than the distal rectum. There is marked rectal wall thickening and considerable edema of the perirectal fat. Prominent gas-filled right upper quadrant bowel seen on recent plain radiographs is demonstrated to be the cecum. Although the sacrum appears quite wide in transverse dimension (approximately 11.5 cm) it is not particularly distended in the AP plane, measuring 4.9 cm AP. The anatomy of the ascending colon and hepatic flexure is not well-defined, and it is unclear whether this represents a possible cecal bascule versus an unusually positioned but otherwise normal cecum. No definite wall thickening is evident. The terminal ileum is normal in caliber or collapsed. The remainder of the small bowel appears mildly dilated, gas and fluid-filled, and the transition point appears to be gradual. No definite small bowel wall thickening. There is a gastrostomy tube which appears to be well positioned at the gastric antrum body junction.. The stomach is distended. The gastric antrum and proximal duodenum appears somewhat thick walled. Ingested contrast has traversed a portion of the proximal small bowel. There is considerable material dependently within the stomach, displacing the ingested contrast. Surgical clips are seen in the mesenteric root inferior to the pancreatic tail and anterior to the proximal jejunum There is moderate free intraperitoneal fluid. No free intraperitoneal gas is demonstrated. Lack of IV contrast limits assessment of the solid organs. The liver, gallbladder, bile ducts, pancreas, spleen, adrenals, right kidney are unremarkable. Left kidney demonstrates a lower pole cyst. The bladder is mildly distended, and minimally thick-walled. There are bilateral right greater than left pleural effusions. There is bilateral basilar pulmonary parenchymal consolidation and/or edema consolidation. The heart is upper limits normal in size. There is extensive edema of the subcutaneous fat, less extensive edema of the mesenteric and retroperitoneal fat. The bones demonstrate a compression fracture deformity of the L1 vertebral body. There are degenerative changes at the lumbosacral junction. Impression: Poorly delineated cecal and ascending colon anatomy. Dilated bowel loop in the right upper quadrant seen on recent plain radiograph is demonstrated to be the cecum. It is dilated, although less severely than is suggested by the plain radiograph. The tip of the cecum is pointed cephalad. There is also dilatation of most of the small bowel, which is dilated, gas and fluid-filled, but the terminal ileum is nondilated. There is not a definite abrupt transition point. Findings may be purely on the basis of ileus with variant cecal anatomy and unusual hepato- colonic interposition, but the possibility of a cecal bascule or internal hernia causing ascending colon and/or distal small bowel obstruction should also be considered. Rectal tube balloon is dilated within the anal canal. Recommend deflation and repositioning Wall thickening of the distal sigmoid and rectum, with edema of the perirectal/perisigmoid fat, concerning for colitis. Distended stomach. Given stated clinical history of GI bleeding, material within the gastric fundus displacing the contrast likely represents blood clots, but any of this could also represent an endophytic mass lesion. There is no rand gastric fundal wall thickening. There is some wall thickening of the gastric antrum and duodenum, although this could in part be an artifact of lack of distention. Gastrostomy is in good position Moderate ascites Bilateral pleural effusions. Bilateral parenchymal consolidation, may reflect pulmonary edema versus parenchymal infiltrates Other evidence of anasarca, with diffuse edema of the subcutaneous fat, less severe edema of the abdominal fat L1 vertebral body compression fracture, age-indeterminate Other findings as noted, including degenerative spondylosis, left lower pole renal cyst. (3) Aspiration pneumonia (4) Sepsis (5) ARF (acute renal failure) (6) HCAP (healthcare-associated pneumonia) (7) Dehydration (8) Hypokalemia (9) Hyperkalemia (10) Anemia (11) Decubitus skin ulcer Assessment & Plan: Pt presented on admission with gross contractures, Multiple Pressure Injuries, Tracheostomy. Skin Assessed under tracheal collar and no evidence of skin breakdown noted. Tear noted to urinary meatus- no exudate noted. Scrotum is erythematous with scattered satellite lesions. Large ulcer noted to R scrotal sac (L)4cm x (W)4.6cm. Base of wound is erythematous ,moist with Biofilm. Sacral DTPI with clusters of small islands of slough with surrounding maroon and indurated areas (L)8cm x (W)12cm.Mild Odor noted. Partial thickness Pressure Injury Upper/outer R buttocks(L)1.8cm x (W)1.3cm. Base of wound is moist and viable. Edges adherent to base of wound. Surrounding non-blanching erythema with scattered areas of shearing noted. Partial thickness Pressure Inferior lower R buttocks.(L)0.8cm x (W)1.2cm. Base of wound is moist and viable. Edges adherent to base of wound. Surrounding non- blanching erythema with scattered shearing noted extending into R ischial tuberosity. Clusters of small hyperpigmentation noted to L trochanteric and L ischial tuberosity. R Heel is fluctuant with scattered dry eschar and surrounding Non-Blanchable erythema.(L)6.5cm x (W)8cm. DTPI distal/lateral R foot(L)3cm x (W)3cm. Base of wound is maroon and fluctuant. dry eschar noted to tip of R 1st metatarsal with surrounding non-blanchable erythema extending dorsally and laterally of metatarsal(L)5cm x (W)1.3cm Non-Blanchable erythema that is fluctuant at base noted to dorso/lateral L 5th metatarsal(L)0.6cm x (W)0.3cm. L Heel is boggy with non-blanchable erythema laterally. Hyperpigmentation from previous wound noted at L heel. Tx.Plan: Cleanse Sacral wound with Saline. Apply TheraHoney to slough. Apply Moisture Barrier Paste periwound. Cover with Optifoam drsg. Change daily and prn. Apply Moisture Barrier Paste to Wounds R upper and lower R Buttocks. Cover each wound with Optifoam drsg. Change every 3 days and prn. Apply Zinc Oxide Paste to Scrotal Wounds TID and prn. Apply Betadine to wounds R heel and R foot . Cover with ABD Pads and wrap with Kerlix every 3 days and prn. Apply Betadine to L foot. Cover with ABD Pads and wrap with Kerlix every 3 days and prn. Cover Bony Prominences as needed with Optifoam drsgs. Reposition at least every 2hours or as tolerated. Off-load heels with pillow. 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
[2020-03-10 13:05] LABS: CREATININE 3.1 MG/DL (0.55-1.30)
--- NOTE | 2020-03-10 15:52 | Nephrology Progress Note ---
Assessment/Plan Plan Acute Oliguric ARF Severe Metabolic Acidosis MOF VDRF Seizure DO Urosepsis Anemia, mostly of CKD - JJ Hypokalemia, Hypomagnesemia - correct Subjective Subjective Obtunded. Objective Objective Last 24 Hour Vital Signs Date Time Temp Pulse Resp B/P (MAP) Pulse Ox O2 Delivery O2 Flow Rate FiO2 03/10/20 14:00 107 34 135/84 (101) 100 03/10/20 13:30 117 35 146/90 (108) 100 03/10/20 13:00 102 24 141/81 (101) 100 03/10/20 12:30 95 29 136/76 (96) 100 03/10/20 12:00 99.0 97 30 136/80 (98) 100 03/10/20 12:00 97 03/10/20 12:00 Mechanical Ventilator 03/10/20 12:00 40 03/10/20 11:30 95 30 132/75 (94) 100 03/10/20 11:06 94 33 100 Mechanical Ventilator 40 96 32 40 03/10/20 11:00 99 31 133/78 (96) 100 03/10/20 10:30 101 30 134/79 (97) 100 03/10/20 10:00 93 28 126/75 (92) 100 03/10/20 09:30 96 26 135/83 (100) 100 03/10/20 09:00 90 26 146/82 (103) 100 03/10/20 08:30 99 25 136/74 (94) 100 03/10/20 08:13 100 03/10/20 08:05 128/73 03/10/20 08:00 Mechanical Ventilator 03/10/20 08:00 95 138/78 03/10/20 08:00 99.0 97 30 128/73 (91) 100 03/10/20 08:00 40 03/10/20 07:30 105 31 148/84 (105) 100 03/10/20 07:01 97 32 100 Mechanical Ventilator 40 106 30 40 03/10/20 07:00 98 31 124/79 (94) 100 03/10/20 06:00 102 33 137/80 (99) 100 03/10/20 05:00 101 34 130/74 (92) 100 03/10/20 04:00 40 03/10/20 04:00 98.9 102 27 129/86 (100) 100 03/10/20 04:00 99 03/10/20 04:00 Mechanical Ventilator 03/10/20 03:06 109 32 40 03/10/20 03:00 107 28 132/86 (101) 100 03/10/20 02:00 117 28 146/100 (115) 100 03/10/20 01:08 101 26 100 Mechanical Ventilator 40 03/10/20 01:00 112 26 165/94 (117) 100 03/10/20 00:57 102 35 Mechanical Ventilator 40 40 03/10/20 00:00 93 03/10/20 00:00 98.7 102 33 134/77 (96) 100 03/10/20 00:00 Mechanical Ventilator 03/09/20 23:00 103 31 100 Mechanical Ventilator 40 03/09/20 23:00 100 20 130/80 (97) 100 03/09/20 22:44 92 31 Mechanical Ventilator 40 40 03/09/20 22:00 118 29 158/100 (119) 100 03/09/20 21:00 95 29 124/78 (93) 100 03/09/20 20:00 Mechanical Ventilator 03/09/20 20:00 98.3 112 26 126/82 (97) 100 03/09/20 20:00 109 03/09/20 20:00 40 03/09/20 19:28 105 26 100 Mechanical Ventilator 40 03/09/20 19:16 104 27 Mechanical Ventilator 40 40 03/09/20 19:00 98 27 108/69 (82) 100 03/09/20 19:00 108/69 03/09/20 18:30 107 28 113/72 (86) 100 03/09/20 18:00 118 30 111/77 (88) 100 03/09/20 18:00 111/77 03/09/20 17:30 116 28 124/95 (105) 100 03/09/20 17:00 130 33 145/88 (107) 100 03/09/20 17:00 145/88 03/09/20 16:00 40 03/09/20 16:00 98.7 111 25 130/84 (99) 100 03/09/20 16:00 Mechanical Ventilator 03/09/20 16:00 111 03/09/20 15:59 130/84 Intake and Output 03/09/20 03/10/20 19:00 07:00 Intake Total 2571.66 ml 1996.5003 ml Output Total 1475 ml 710 ml Balance 1096.66 ml 1287.5003 ml IV Total 2571.66 ml 1996.5003 ml Output Urine Total 1450 ml 660 ml Stool Total 25 ml 50 ml # Voids 2 # Bowel Movements 2 Laboratory Tests 03/10/20 03:50: White Blood Count 8.3, Red Blood Count 2.45L, Hemoglobin 7.4L, Hematocrit 21.8L , Mean Corpuscular Volume 89, Mean Corpuscular Hemoglobin 30.4, Mean Corpuscular Hemoglobin Concent 34.2, Red Cell Distribution Width 13.7, Platelet Count 86L, Mean Platelet Volume 5.4L, Neutrophils (%) (Auto) , Lymphocytes (%) ( Auto) , Monocytes (%) (Auto) , Eosinophils (%) (Auto) , Basophils (%) (Auto) , Differential Total Cells Counted 100, Neutrophils % (Manual) 89H, Lymphocytes % (Manual) 5L, Monocytes % (Manual) 6, Eosinophils % (Manual) 0, Basophils % ( Manual) 0, Band Neutrophils 0, Platelet Estimate DecreasedL, Platelet Morphology Normal, Hypochromasia 3+, Anisocytosis 1+, Spherocytes 1+, Sodium Level 144, Potassium Level 2.6*L, Chloride Level 111H, Carbon Dioxide Level 22, Anion Gap 11, Blood Urea Nitrogen 95H, Creatinine 3.1H, Estimat Glomerular Filtration Rate 19.6, Glucose Level 125H, Calcium Level 7.3L, Total Bilirubin 0.3, Aspartate Amino Transf (AST/SGOT) 22, Alanine Aminotransferase (ALT/SGPT) 16, Alkaline Phosphatase 61, Total Protein 5.1L, Albumin 1.1L, Globulin 4.0, Albumin/Globulin Ratio 0.3L 03/10/20 11:00: Creatinine 3.1H, Estimat Glomerular Filtration Rate 19.6, Urine Collection Time 24, Urine Total Volume 1300, Urine Creatinine 11, Urine Creatinine 24 Hour 143L , Patient Height Inches (Creat Clear) 67, Patient Weight Pounds (Creat Clear) 165, Creatinine Clearance 3L Height (Feet): 5 Height (Inches): 7.00 Weight (Pounds): 129 Objective On vent. Trach site miroslava. CV Tach. Lungs B ronchi. Abd distended. SNT. BS diminished. E contractures. +2 B edema. Neuro obtunded. Nonfocal. Ayanna Maldonado MD Mar 10, 2020 15:52
[2020-03-10 16:53] LABS: BASOPHILS % (AUTO) 0.7 % (0.0-2.0); EOSINOPHILS % (AUTO) 0.9 % (0.0-3.0); HEMOGLOBIN 8.1 G/DL (14.2-18.0); LYMPHOCYTES % (AUTO) 10.9 % (20.0-45.0); MEAN CORPUSCULAR VOLUME 92 FL (80-99); MONOCYTES % (AUTO) 5.7 % (1.0-10.0); NEUTROPHILS % (AUTO) 81.8 % (45.0-75.0); PLATELET COUNT 103 K/UL (150-450); WHITE BLOOD COUNT 7.9 K/UL (4.8-10.8)
[2020-03-10] MEDS: Dyna-Hex 2% Top Sol 2oz TOPIC SCH (19:46)
[2020-03-10] MEDS: Epoetin Alfa-EPBX (NON ESRD) 3000 units/ml vial SUBQ SCH (20:19)
[2020-03-10] MEDS: Epoetin Alfa-EPBX (NON ESRD)4000 units/ml vial SUBQ SCH (20:20)
[2020-03-11] VITALS (25 sets, daily range): BP systolic 134–155; BP diastolic 75–114
[2020-03-11] MEDS: Sodium Bicarbonate 100 ML in D5 1/2NS 1,000 ML IV SCH (03:09)
[2020-03-11] MEDS: Metoclopramide 10mg/2ml Inj IVP SCH ×4 (05:35→23:49)
[2020-03-11] MEDS: Pantoprazole 80 MG in NS 250 ML IV SCH ×2 (06:18→17:22)
[2020-03-11] MEDS: Octreotide Acetate 500 MCG in Sodium Chloride 499 ML IV SCH ×2 (06:28→17:22)
[2020-03-11] MEDS: Norepinephrine Bitartrate 16 MG in Sodium Chloride 484 ML IV SCH (07:49)
[2020-03-11] MEDS: Phenylephrine 100 MG in D5W 240 ML IV SCH (07:50)
--- NOTE | 2020-03-11 09:02 | General Progress Note ---
Assessment/Plan Problem List: (1) GIB (gastrointestinal bleeding) ICD Codes: K92.2 - Gastrointestinal hemorrhage, unspecified SNOMED: 95497168 (2) Sepsis ICD Codes: A41.9 - Sepsis, unspecified organism SNOMED: 43975703 Qualifiers: Qualified Codes: A41.9 - Sepsis, unspecified organism; R65.20 - Severe sepsis without septic shock; N17.9 - Acute kidney failure, unspecified (3) Respiratory failure ICD Codes: J96.90 - Respiratory failure, unspecified, unspecified whether with hypoxia or hypercapnia SNOMED: 202896011 Qualifiers: Qualified Codes: J96.01 - Acute respiratory failure with hypoxia (4) Aspiration pneumonia ICD Codes: J69.0 - Pneumonitis due to inhalation of food and vomit SNOMED: 327389591 Qualifiers: Qualified Codes: O74.0 - Aspiration pneumonitis due to anesthesia during labor and delivery (5) HCAP (healthcare-associated pneumonia) ICD Codes: J18.9 - Pneumonia, unspecified organism SNOMED: 467621836, 630077789 (6) ARF (acute renal failure) ICD Codes: N17.9 - Acute kidney failure, unspecified SNOMED: 93256432, 514962077 Qualifiers: Qualified Codes: N17.9 - Acute kidney failure, unspecified Status: stable, unchanged Assessment/Plan: follow up labs transfuse as needed IVF per renal protonix and octreotide drips vent support resp rx thyroid replacement monitor [facility] iv critical and guarded full code Subjective ROS Limited/Unobtainable: No Constitutional: Reports: malaise, weakness HEENT: Reports: no symptoms Cardiovascular: Reports: no symptoms Respiratory: Reports: shortness of breath, sputum Gastrointestinal/Abdominal: Reports: black stools Genitourinary: Reports: no symptoms Neurologic/Psychiatric: Reports: paresthesia, pre-existing deficit Endocrine: Reports: no symptoms Hematologic/Lymphatic: Reports: anemia Allergies: Coded Allergies: No Known Allergies (Unverified , 02/23/12) All Systems: reviewed and negative except above Subjective no events. stable off pressors. awake. black watery stools. labs pending. vent support resp rx. on octreotide and protonix drips. Objective Last 24 Hour Vital Signs Date Time Temp Pulse Resp B/P (MAP) Pulse Ox O2 Delivery O2 Flow Rate FiO2 03/11/20 08:00 Mechanical Ventilator 03/11/20 08:00 99.2 94 25 148/81 (103) 100 03/11/20 08:00 40 03/11/20 07:50 83 140/101 03/11/20 07:49 140/101 03/11/20 07:46 87 28 40 03/11/20 07:00 83 25 140/81 (100) 100 03/11/20 06:00 83 23 144/91 (108) 100 03/11/20 05:00 88 17 138/80 (99) 100 03/11/20 04:00 97 03/11/20 04:00 Mechanical Ventilator 03/11/20 04:00 40 03/11/20 04:00 98.7 97 31 141/90 (107) 100 03/11/20 03:09 96 34 40 03/11/20 03:00 89 22 137/89 (105) 100 03/11/20 02:00 89 22 147/76 (99) 100 03/11/20 01:00 81 26 142/75 (97) 100 03/11/20 00:00 81 03/11/20 00:00 98.1 86 19 139/77 (97) 100 03/11/20 00:00 Mechanical Ventilator 03/10/20 23:00 86 0 138/84 (102) 100 03/10/20 22:31 92 33 100 Mechanical Ventilator 40 93 32 40 03/10/20 22:00 96 23 135/77 (96) 100 03/10/20 21:00 95 28 153/82 (105) 100 03/10/20 20:00 40 03/10/20 20:00 Mechanical Ventilator 03/10/20 20:00 99.6 95 28 134/79 (97) 100 03/10/20 20:00 107 03/10/20 19:12 98 40 40 03/10/20 19:00 99 31 126/73 (90) 100 03/10/20 18:30 110 31 139/78 (98) 100 03/10/20 18:00 105 32 135/85 (102) 100 03/10/20 17:30 100.0 107 28 133/89 (104) 100 03/10/20 17:00 110 26 137/85 (102) 100 03/10/20 16:56 100.0 03/10/20 16:30 108 34 141/87 (105) 100 03/10/20 16:00 Mechanical Ventilator 03/10/20 16:00 40 03/10/20 16:00 100.7 106 30 137/87 (104) 100 03/10/20 16:00 106 03/10/20 15:30 111 33 136/79 (98) 100 03/10/20 15:27 107 37 40 03/10/20 15:00 107 26 131/85 (100) 100 03/10/20 14:30 110 28 129/81 (97) 100 03/10/20 14:00 107 34 135/84 (101) 100 03/10/20 13:57 107 37 100 Mechanical Ventilator 40 03/10/20 13:30 117 35 146/90 (108) 100 03/10/20 13:00 102 24 141/81 (101) 100 03/10/20 12:30 95 29 136/76 (96) 100 03/10/20 12:00 99.0 97 30 136/80 (98) 100 03/10/20 12:00 97 03/10/20 12:00 Mechanical Ventilator 03/10/20 12:00 40 03/10/20 11:30 95 30 132/75 (94) 100 03/10/20 11:06 94 33 100 Mechanical Ventilator 40 96 32 40 03/10/20 11:00 99 31 133/78 (96) 100 03/10/20 10:30 101 30 134/79 (97) 100 03/10/20 10:00 93 28 126/75 (92) 100 03/10/20 09:30 96 26 135/83 (100) 100 03/10/20 09:00 90 26 146/82 (103) 100 Intake and Output 03/10/20 03/11/20 19:00 07:00 Intake Total 2167.5 ml 2522.917 ml Output Total 685 ml 1370 ml Balance 1482.5 ml 1152.917 ml IV Total 2167.5 ml 2522.917 ml Output Urine Total 660 ml 1270 ml Stool Total 25 ml 100 ml # Bowel Movements 2 Laboratory Tests 03/10/20 11:00: Urine Collection Time 24, Urine Total Volume 1300, Urine Creatinine 11, Urine Creatinine 24 Hour 143L, Patient Height Inches (Creat Clear) 67, Patient Weight Pounds (Creat Clear) 165, Creatinine Clearance 3L, Creatinine 3.1H, Estimat Glomerular Filtration Rate 19.6 03/10/20 16:40: White Blood Count 7.9, Red Blood Count 2.60L, Hemoglobin 8.1L, Hematocrit 24.0L , Mean Corpuscular Volume 92, Mean Corpuscular Hemoglobin 31.2H, Mean Corpuscular Hemoglobin Concent 33.8, Red Cell Distribution Width 14.0, Platelet Count 103L, Mean Platelet Volume 6.3L, Neutrophils (%) (Auto) 81.8H, Lymphocytes (%) (Auto) 10.9L, Monocytes (%) (Auto) 5.7, Eosinophils (%) (Auto) 0.9, Basophils (%) (Auto) 0.7, Magnesium Level 1.4L Height (Feet): 5 Height (Inches): 7.00 Weight (Pounds): 129 Objective General Appearance: WD/WN, cachetic, thin EENT: normal ENT inspection Neck: non-tender, normal alignment, supple Cardiovascular: normal rate, regular rhythm Respiratory/Chest: chest wall non-tender, lungs clear, normal breath sounds, no respiratory distress, no accessory muscle use Abdomen: normal bowel sounds, non tender, soft, no organomegaly, no mass Edema: no edema noted Arm (L), no edema noted Arm (R) Neurologic: disoriented, unresponsive, aphasia Skin: normal pigmentation Lymphatic: normal anterior cervical (L), normal anterior cervical (R) Jimi Tellez MD Mar 11, 2020 09:02
[2020-03-11] MEDS: Meropenem 500 MG in NS 55 ML IVPB SCH ×2 (09:08→20:20)
[2020-03-11 09:25] LABS: HEMATOCRIT 20.4 % (42.0-52.0); MEAN CORPUSCULAR VOLUME 89 FL (80-99); PLATELET COUNT 90 K/UL (150-450); RED BLOOD COUNT 2.28 M/UL (4.70-6.10); RED CELL DISTRIBUTION WIDTH 13.7 % (11.6-14.8); WHITE BLOOD COUNT 5.6 K/UL (4.8-10.8)
[2020-03-11 09:38] LABS: CALCIUM 6.7 MG/DL (8.5-10.1)
[2020-03-11] MEDS: levETIRAcetam 750 MG in NS 110 ML IV SCH ×2 (10:35→23:49)
[2020-03-11] MEDS: Colistin for inhalation INH SCH (11:25)
[2020-03-11] MEDS: Sodium Bicarbonate 50 ML in D5W 1000ml 1,000 ML IV SCH (12:00)
--- NOTE | 2020-03-11 12:44 | Surgery Progress Note ---
Surgery Progress Note Subjective Additional Comments no active bleeding start tf plan to repeat scope next week discussed with GI hold on surgery Objective Last 24 Hour Vital Signs Date Time Temp Pulse Resp B/P (MAP) Pulse Ox O2 Delivery O2 Flow Rate FiO2 03/11/20 12:00 92 03/11/20 12:00 95 26 144/91 (108) 95 03/11/20 11:00 77 26 134/78 (96) 100 03/11/20 10:00 80 26 134/87 (103) 100 03/11/20 09:00 86 26 139/82 (101) 100 03/11/20 08:00 84 03/11/20 08:00 Mechanical Ventilator 03/11/20 08:00 99.2 94 25 148/81 (103) 100 03/11/20 08:00 40 03/11/20 07:50 83 140/101 03/11/20 07:49 140/101 03/11/20 07:46 87 28 40 03/11/20 07:00 83 25 140/81 (100) 100 03/11/20 06:00 83 23 144/91 (108) 100 03/11/20 05:00 88 17 138/80 (99) 100 03/11/20 04:00 97 03/11/20 04:00 Mechanical Ventilator 03/11/20 04:00 40 03/11/20 04:00 98.7 97 31 141/90 (107) 100 03/11/20 03:09 96 34 40 03/11/20 03:00 89 22 137/89 (105) 100 03/11/20 02:00 89 22 147/76 (99) 100 03/11/20 01:00 81 26 142/75 (97) 100 03/11/20 00:00 81 03/11/20 00:00 98.1 86 19 139/77 (97) 100 03/11/20 00:00 Mechanical Ventilator 03/10/20 23:00 86 0 138/84 (102) 100 03/10/20 22:31 92 33 100 Mechanical Ventilator 40 93 32 40 03/10/20 22:00 96 23 135/77 (96) 100 03/10/20 21:00 95 28 153/82 (105) 100 03/10/20 20:00 40 03/10/20 20:00 Mechanical Ventilator 03/10/20 20:00 99.6 95 28 134/79 (97) 100 03/10/20 20:00 107 03/10/20 19:12 98 40 40 03/10/20 19:00 99 31 126/73 (90) 100 03/10/20 18:30 110 31 139/78 (98) 100 03/10/20 18:00 105 32 135/85 (102) 100 03/10/20 17:30 100.0 107 28 133/89 (104) 100 03/10/20 17:00 110 26 137/85 (102) 100 03/10/20 16:56 100.0 03/10/20 16:30 108 34 141/87 (105) 100 03/10/20 16:00 Mechanical Ventilator 03/10/20 16:00 40 03/10/20 16:00 100.7 106 30 137/87 (104) 100 03/10/20 16:00 106 03/10/20 15:30 111 33 136/79 (98) 100 03/10/20 15:27 107 37 40 03/10/20 15:00 107 26 131/85 (100) 100 03/10/20 14:30 110 28 129/81 (97) 100 03/10/20 14:00 107 34 135/84 (101) 100 03/10/20 13:57 107 37 100 Mechanical Ventilator 40 03/10/20 13:30 117 35 146/90 (108) 100 03/10/20 13:00 102 24 141/81 (101) 100 I&O Intake and Output 03/10/20 03/11/20 19:00 07:00 Intake Total 2167.5 ml 2522.917 ml Output Total 685 ml 1370 ml Balance 1482.5 ml 1152.917 ml IV Total 2167.5 ml 2522.917 ml Output Urine Total 660 ml 1270 ml Stool Total 25 ml 100 ml # Bowel Movements 2 Dressing: other Wound: other Cardiovascular: RSR Respiratory: decreased breath sounds Abdomen: soft, non-tender, present bowel sounds Extremities: no tenderness, no cyanosis Laboratory Tests Test 03/10/20 16:40 03/11/20 09:10 White Blood Count 7.9 K/UL (4.8-10.8) 5.6 K/UL (4.8-10.8) Red Blood Count 2.60 M/UL (4.70-6.10) L 2.28 M/UL (4.70-6.10) L Hemoglobin 8.1 G/DL (14.2-18.0) L 7.0 G/DL (14.2-18.0) L Hematocrit 24.0 % (42.0-52.0) L 20.4 % (42.0-52.0) L Mean Corpuscular Volume 92 FL (80-99) 89 FL (80-99) Mean Corpuscular Hemoglobin 31.2 PG (27.0-31.0) H 30.6 PG (27.0-31.0) Mean Corpuscular Hemoglobin Concent 33.8 G/DL (32.0-36.0) 34.3 G/DL (32.0-36.0) Red Cell Distribution Width 14.0 % (11.6-14.8) 13.7 % (11.6-14.8) Platelet Count 103 K/UL (150-450) L 90 K/UL (150-450) L Mean Platelet Volume 6.3 FL (6.5-10.1) L 5.4 FL (6.5-10.1) L Neutrophils (%) (Auto) 81.8 % (45.0-75.0) H % (45.0-75.0) Lymphocytes (%) (Auto) 10.9 % (20.0-45.0) L % (20.0-45.0) Monocytes (%) (Auto) 5.7 % (1.0-10.0) % (1.0-10.0) Eosinophils (%) (Auto) 0.9 % (0.0-3.0) % (0.0-3.0) Basophils (%) (Auto) 0.7 % (0.0-2.0) % (0.0-2.0) Magnesium Level 1.4 MG/DL (1.8-2.4) L 1.1 MG/DL (1.8-2.4) L Differential Total Cells Counted 100 Neutrophils % (Manual) 81 % (45-75) H Lymphocytes % (Manual) 12 % (20-45) L Monocytes % (Manual) 6 % (1-10) Eosinophils % (Manual) 1 % (0-3) Basophils % (Manual) 0 % (0-2) Band Neutrophils 0 % (0-8) Platelet Estimate Decreased L Platelet Morphology Normal Hypochromasia 3+ Anisocytosis 1+ Sodium Level 151 MMOL/L (136-145) H Potassium Level 3.0 MMOL/L (3.5-5.1) L Chloride Level 117 MMOL/L (98-107) H Carbon Dioxide Level 25 MMOL/L (21-32) Anion Gap 9 mmol/L (5-15) Blood Urea Nitrogen 83 mg/dL (7-18) H Creatinine 3.0 MG/DL (0.55-1.30) H Estimat Glomerular Filtration Rate 20.4 mL/min (>60) Glucose Level 116 MG/DL (74-106) H Calcium Level 6.7 MG/DL (8.5-10.1) L Plan Problems: (1) Respiratory failure (2) GIB (gastrointestinal bleeding) Assessment & Plan: 79-year-old male with leukocytosis, anemia, NG tube inserted and bright blood identified. Plan for urgent EGD today. Protonix IV N.p.o. IV fluid resuscitation PRBC transfusion trend labs Care plan discussed with GI will await EGD findings Thank you for let me participate in patient's care will follow with recommendations EGD findings noted discussed with GI NG tube placed Continuous gastric irrigation and suction initiated plan for repeat scope soon repeat scope noted unchanged cannot remove clot CT reviewed surgery too high risk no active bleeding trend h/h start tf plan to repeat scope next week discussed with GI hold on surgery There is a rectal tube in place. The balloon is likely inflated within the anal canal rather than the distal rectum. There is marked rectal wall thickening and considerable edema of the perirectal fat. Prominent gas-filled right upper quadrant bowel seen on recent plain radiographs is demonstrated to be the cecum. Although the sacrum appears quite wide in transverse dimension (approximately 11.5 cm) it is not particularly distended in the AP plane, measuring 4.9 cm AP. The anatomy of the ascending colon and hepatic flexure is not well-defined, and it is unclear whether this represents a possible cecal bascule versus an unusually positioned but otherwise normal cecum. No definite wall thickening is evident. The terminal ileum is normal in caliber or collapsed. The remainder of the small bowel appears mildly dilated, gas and fluid-filled, and the transition point appears to be gradual. No definite small bowel wall thickening. There is a gastrostomy tube which appears to be well positioned at the gastric antrum body junction.. The stomach is distended. The gastric antrum and proximal duodenum appears somewhat thick walled. Ingested contrast has traversed a portion of the proximal small bowel. There is considerable material dependently within the stomach, displacing the ingested contrast. Surgical clips are seen in the mesenteric root inferior to the pancreatic tail and anterior to the proximal jejunum There is moderate free intraperitoneal fluid. No free intraperitoneal gas is demonstrated. Lack of IV contrast limits assessment of the solid organs. The liver, gallbladder, bile ducts, pancreas, spleen, adrenals, right kidney are unremarkable. Left kidney demonstrates a lower pole cyst. The bladder is mildly distended, and minimally thick-walled. There are bilateral right greater than left pleural effusions. There is bilateral basilar pulmonary parenchymal consolidation and/or edema consolidation. The heart is upper limits normal in size. There is extensive edema of the subcutaneous fat, less extensive edema of the mesenteric and retroperitoneal fat. The bones demonstrate a compression fracture deformity of the L1 vertebral body. There are degenerative changes at the lumbosacral junction. Impression: Poorly delineated cecal and ascending colon anatomy. Dilated bowel loop in the right upper quadrant seen on recent plain radiograph is demonstrated to be the cecum. It is dilated, although less severely than is suggested by the plain radiograph. The tip of the cecum is pointed cephalad. There is also dilatation of most of the small bowel, which is dilated, gas and fluid-filled, but the terminal ileum is nondilated. There is not a definite abrupt transition point. Findings may be purely on the basis of ileus with variant cecal anatomy and unusual hepato- colonic interposition, but the possibility of a cecal bascule or internal hernia causing ascending colon and/or distal small bowel obstruction should also be considered. Rectal tube balloon is dilated within the anal canal. Recommend deflation and repositioning Wall thickening of the distal sigmoid and rectum, with edema of the perirectal/perisigmoid fat, concerning for colitis. Distended stomach. Given stated clinical history of GI bleeding, material within the gastric fundus displacing the contrast likely represents blood clots, but any of this could also represent an endophytic mass lesion. There is no rand gastric fundal wall thickening. There is some wall thickening of the gastric antrum and duodenum, although this could in part be an artifact of lack of distention. Gastrostomy is in good position Moderate ascites Bilateral pleural effusions. Bilateral parenchymal consolidation, may reflect pulmonary edema versus parenchymal infiltrates Other evidence of anasarca, with diffuse edema of the subcutaneous fat, less severe edema of the abdominal fat L1 vertebral body compression fracture, age-indeterminate Other findings as noted, including degenerative spondylosis, left lower pole renal cyst. (3) Aspiration pneumonia (4) Sepsis (5) ARF (acute renal failure) (6) HCAP (healthcare-associated pneumonia) (7) Dehydration (8) Hypokalemia (9) Hyperkalemia (10) Anemia (11) Decubitus skin ulcer Assessment & Plan: Pt presented on admission with gross contractures, Multiple Pressure Injuries, Tracheostomy. Skin Assessed under tracheal collar and no evidence of skin breakdown noted. Tear noted to urinary meatus- no exudate noted. Scrotum is erythematous with scattered satellite lesions. Large ulcer noted to R scrotal sac (L)4cm x (W)4.6cm. Base of wound is erythematous ,moist with Biofilm. Sacral DTPI with clusters of small islands of slough with surrounding maroon and indurated areas (L)8cm x (W)12cm.Mild Odor noted. Partial thickness Pressure Injury Upper/outer R buttocks(L)1.8cm x (W)1.3cm. Base of wound is moist and viable. Edges adherent to base of wound. Surrounding non-blanching erythema with scattered areas of shearing noted. Partial thickness Pressure Inferior lower R buttocks.(L)0.8cm x (W)1.2cm. Base of wound is moist and viable. Edges adherent to base of wound. Surrounding non- blanching erythema with scattered shearing noted extending into R ischial tuberosity. Clusters of small hyperpigmentation noted to L trochanteric and L ischial tuberosity. R Heel is fluctuant with scattered dry eschar and surrounding Non-Blanchable erythema.(L)6.5cm x (W)8cm. DTPI distal/lateral R foot(L)3cm x (W)3cm. Base of wound is maroon and fluctuant. dry eschar noted to tip of R 1st metatarsal with surrounding non-blanchable erythema extending dorsally and laterally of metatarsal(L)5cm x (W)1.3cm Non-Blanchable erythema that is fluctuant at base noted to dorso/lateral L 5th metatarsal(L)0.6cm x (W)0.3cm. L Heel is boggy with non-blanchable erythema laterally. Hyperpigmentation from previous wound noted at L heel. Tx.Plan: Cleanse Sacral wound with Saline. Apply TheraHoney to slough. Apply Moisture Barrier Paste periwound. Cover with Optifoam drsg. Change daily and prn. Apply Moisture Barrier Paste to Wounds R upper and lower R Buttocks. Cover each wound with Optifoam drsg. Change every 3 days and prn. Apply Zinc Oxide Paste to Scrotal Wounds TID and prn. Apply Betadine to wounds R heel and R foot . Cover with ABD Pads and wrap with Kerlix every 3 days and prn. Apply Betadine to L foot. Cover with ABD Pads and wrap with Kerlix every 3 days and prn. Cover Bony Prominences as needed with Optifoam drsgs. Reposition at least every 2hours or as tolerated. Off-load heels with pillow. 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
[2020-03-11] MEDS ORDERED: Zinc Oxide Oint 2oz TOPIC PRN (12:45)
--- NOTE | 2020-03-11 13:02 | Nephrology Progress Note ---
Assessment/Plan Problem List: (1) CKD (chronic kidney disease) stage 5, GFR less than 15 ml/min (2) Respiratory failure (3) GIB (gastrointestinal bleeding) (4) Hypokalemia (5) Anemia (6) Hypernatremia (7) Protein-calorie malnutrition, severe Plan iv adjusted replace K Subjective ROS Limited/Unobtainable: Yes Objective Objective Last 24 Hour Vital Signs Date Time Temp Pulse Resp B/P (MAP) Pulse Ox O2 Delivery O2 Flow Rate FiO2 03/11/20 12:00 92 03/11/20 12:00 95 26 144/91 (108) 95 03/11/20 11:05 78 26 40 03/11/20 11:00 77 26 134/78 (96) 100 03/11/20 10:00 80 26 134/87 (103) 100 03/11/20 09:00 86 26 139/82 (101) 100 03/11/20 08:00 84 03/11/20 08:00 Mechanical Ventilator 03/11/20 08:00 99.2 94 25 148/81 (103) 100 03/11/20 08:00 40 03/11/20 07:50 83 140/101 03/11/20 07:49 140/101 03/11/20 07:46 87 28 40 03/11/20 07:00 83 25 140/81 (100) 100 03/11/20 06:00 83 23 144/91 (108) 100 03/11/20 05:00 88 17 138/80 (99) 100 03/11/20 04:00 97 03/11/20 04:00 Mechanical Ventilator 03/11/20 04:00 40 03/11/20 04:00 98.7 97 31 141/90 (107) 100 03/11/20 03:09 96 34 40 03/11/20 03:00 89 22 137/89 (105) 100 03/11/20 02:00 89 22 147/76 (99) 100 03/11/20 01:00 81 26 142/75 (97) 100 03/11/20 00:00 81 03/11/20 00:00 98.1 86 19 139/77 (97) 100 03/11/20 00:00 Mechanical Ventilator 03/10/20 23:00 86 0 138/84 (102) 100 03/10/20 22:31 92 33 100 Mechanical Ventilator 40 93 32 40 03/10/20 22:00 96 23 135/77 (96) 100 03/10/20 21:00 95 28 153/82 (105) 100 03/10/20 20:00 40 03/10/20 20:00 Mechanical Ventilator 03/10/20 20:00 99.6 95 28 134/79 (97) 100 03/10/20 20:00 107 03/10/20 19:12 98 40 40 03/10/20 19:00 99 31 126/73 (90) 100 03/10/20 18:30 110 31 139/78 (98) 100 03/10/20 18:00 105 32 135/85 (102) 100 03/10/20 17:30 100.0 107 28 133/89 (104) 100 03/10/20 17:00 110 26 137/85 (102) 100 03/10/20 16:56 100.0 03/10/20 16:30 108 34 141/87 (105) 100 03/10/20 16:00 Mechanical Ventilator 03/10/20 16:00 40 03/10/20 16:00 100.7 106 30 137/87 (104) 100 03/10/20 16:00 106 03/10/20 15:30 111 33 136/79 (98) 100 03/10/20 15:27 107 37 40 03/10/20 15:00 107 26 131/85 (100) 100 03/10/20 14:30 110 28 129/81 (97) 100 03/10/20 14:00 107 34 135/84 (101) 100 03/10/20 13:57 107 37 100 Mechanical Ventilator 40 03/10/20 13:30 117 35 146/90 (108) 100 Intake and Output 03/10/20 03/11/20 19:00 07:00 Intake Total 2167.5 ml 2522.917 ml Output Total 685 ml 1370 ml Balance 1482.5 ml 1152.917 ml IV Total 2167.5 ml 2522.917 ml Output Urine Total 660 ml 1270 ml Stool Total 25 ml 100 ml # Bowel Movements 2 Laboratory Tests 03/10/20 16:40: White Blood Count 7.9, Red Blood Count 2.60L, Hemoglobin 8.1L, Hematocrit 24.0L , Mean Corpuscular Volume 92, Mean Corpuscular Hemoglobin 31.2H, Mean Corpuscular Hemoglobin Concent 33.8, Red Cell Distribution Width 14.0, Platelet Count 103L, Mean Platelet Volume 6.3L, Neutrophils (%) (Auto) 81.8H, Lymphocytes (%) (Auto) 10.9L, Monocytes (%) (Auto) 5.7, Eosinophils (%) (Auto) 0.9, Basophils (%) (Auto) 0.7, Magnesium Level 1.4L 03/11/20 09:10: White Blood Count 5.6, Red Blood Count 2.28L, Hemoglobin 7.0L, Hematocrit 20.4L , Mean Corpuscular Volume 89, Mean Corpuscular Hemoglobin 30.6, Mean Corpuscular Hemoglobin Concent 34.3, Red Cell Distribution Width 13.7, Platelet Count 90L, Mean Platelet Volume 5.4L, Neutrophils (%) (Auto) , Lymphocytes (%) ( Auto) , Monocytes (%) (Auto) , Eosinophils (%) (Auto) , Basophils (%) (Auto) , Magnesium Level 1.1L, Differential Total Cells Counted 100, Neutrophils % ( Manual) 81H, Lymphocytes % (Manual) 12L, Monocytes % (Manual) 6, Eosinophils % ( Manual) 1, Basophils % (Manual) 0, Band Neutrophils 0, Platelet Estimate DecreasedL, Platelet Morphology Normal, Hypochromasia 3+, Anisocytosis 1+, Sodium Level 151H, Potassium Level 3.0L, Chloride Level 117H, Carbon Dioxide Level 25, Anion Gap 9, Blood Urea Nitrogen 83H, Creatinine 3.0H, Estimat Glomerular Filtration Rate 20.4, Glucose Level 116H, Calcium Level 6.7L Height (Feet): 5 Height (Inches): 7.00 Weight (Pounds): 129 General Appearance: lethargic, confused Cardiovascular: regular rhythm Respiratory/Chest: rhonchi - bilaterally Abdomen: soft Extremities: moderate edema Neurologic: unresponsive Cl Gong MD Mar 11, 2020 13:02
--- NOTE | 2020-03-11 13:49 | Critical Care Progress Note ---
Assessment/Plan Assessment/Plan Upper GI bleed Anemia due to acute blood loss H/o GERD, previous G tube Chronic Tracheostomy, Respiratory failure with elevatedCO2 Aspiration pneumonia Sepsis Renal insufficiency, hyperkalemia, metabolic acidosis Previous Pseudomonal Pneumonia H/o Paroxysmal Atrial Fibrillation Diabetes CRI Anemia s/p transfusion Prev CVA Chronic encephalopathy Seizure history Hypothyroidism Tachycardia pleural effusions anasarca with ascites rectal tube PLAN care noted IV antibiotics reviewed respiratory noted Ventilatory support as is off load replace lytes as needed monitor fluid balance pressors SNF meds supportive care GI recommendations suction no wean planned oxygen therapy prognosis poor for recovery monitor need for transfusion as needed full code medications/laboratory data/nursing notes/ICU care reviewed in detail note reviewed and edited care discussed with RN and RT ICU time spent >40 minutes Critical Care - Subjective Interval Events: care noted and reviewed MOF noted on vent ROS Limited/Unobtainable: Yes Condition: critical EKG Rhythm: Sinus Rhythm Residuals: minimal Tube Feeding Tolerated: yes I&O: Intake and Output 03/10/20 03/11/20 19:00 07:00 Intake Total 2167.5 ml 2522.917 ml Output Total 685 ml 1370 ml Balance 1482.5 ml 1152.917 ml IV Total 2167.5 ml 2522.917 ml Output Urine Total 660 ml 1270 ml Stool Total 25 ml 100 ml # Bowel Movements 2 Critical Care - Objective Last 24 Hour Vital Signs Date Time Temp Pulse Resp B/P (MAP) Pulse Ox O2 Delivery O2 Flow Rate FiO2 03/11/20 13:15 98.8 86 25 151/96 (114) 100 03/11/20 13:00 87 26 151/96 (114) 100 03/11/20 12:00 Mechanical Ventilator 03/11/20 12:00 92 03/11/20 12:00 40 03/11/20 12:00 95 26 144/91 (108) 95 03/11/20 11:05 78 26 100 Endotrachael Tube 40 75 26 03/11/20 11:00 77 26 134/78 (96) 100 03/11/20 10:00 80 26 134/87 (103) 100 03/11/20 09:00 86 26 139/82 (101) 100 03/11/20 08:00 84 03/11/20 08:00 Mechanical Ventilator 03/11/20 08:00 99.2 94 25 148/81 (103) 100 03/11/20 08:00 40 03/11/20 07:50 83 140/101 03/11/20 07:49 140/101 03/11/20 07:46 87 28 40 03/11/20 07:00 83 25 140/81 (100) 100 03/11/20 06:00 83 23 144/91 (108) 100 03/11/20 05:00 88 17 138/80 (99) 100 03/11/20 04:00 97 03/11/20 04:00 Mechanical Ventilator 03/11/20 04:00 40 03/11/20 04:00 98.7 97 31 141/90 (107) 100 03/11/20 03:09 96 34 40 03/11/20 03:00 89 22 137/89 (105) 100 03/11/20 02:00 89 22 147/76 (99) 100 03/11/20 01:00 81 26 142/75 (97) 100 03/11/20 00:00 81 03/11/20 00:00 98.1 86 19 139/77 (97) 100 03/11/20 00:00 Mechanical Ventilator 03/10/20 23:00 86 0 138/84 (102) 100 03/10/20 22:31 92 33 100 Mechanical Ventilator 40 93 32 40 03/10/20 22:00 96 23 135/77 (96) 100 03/10/20 21:00 95 28 153/82 (105) 100 03/10/20 20:00 40 03/10/20 20:00 Mechanical Ventilator 03/10/20 20:00 99.6 95 28 134/79 (97) 100 03/10/20 20:00 107 03/10/20 19:12 98 40 40 03/10/20 19:00 99 31 126/73 (90) 100 03/10/20 18:30 110 31 139/78 (98) 100 03/10/20 18:00 105 32 135/85 (102) 100 03/10/20 17:30 100.0 107 28 133/89 (104) 100 03/10/20 17:00 110 26 137/85 (102) 100 03/10/20 16:56 100.0 03/10/20 16:30 108 34 141/87 (105) 100 9/11/20 16:00 Mechanical Ventilator 03/10/20 16:00 40 03/10/20 16:00 100.7 106 30 137/87 (104) 100 03/10/20 16:00 106 03/10/20 15:30 111 33 136/79 (98) 100 03/10/20 15:27 107 37 40 03/10/20 15:00 107 26 131/85 (100) 100 03/10/20 14:30 110 28 129/81 (97) 100 03/10/20 14:00 107 34 135/84 (101) 100 03/10/20 13:57 107 37 100 Mechanical Ventilator 40 Labs: Labs Test 03/08/20 18:15 03/09/20 05:45 03/10/20 03:50 03/10/20 11:00 White Blood Count 15.0 K/UL (4.8-10.8) 15.1 K/UL (4.8-10.8) 8.3 K/UL (4.8-10.8) Red Blood Count 2.19 M/UL (4.70-6.10) 2.79 M/UL (4.70-6.10) 2.45 M/UL (4.70-6.10) Hemoglobin 7.1 G/DL (14.2-18.0) 8.7 G/DL (14.2-18.0) 7.4 G/DL (14.2-18.0) Hematocrit 20.4 % (42.0-52.0) 24.7 % (42.0-52.0) 21.8 % (42.0-52.0) Mean Corpuscular Volume 93 FL (80-99) 89 FL (80-99) 89 FL (80-99) Mean Corpuscular Hemoglobin 32.6 PG (27.0-31.0) 31.1 PG (27.0-31.0) 30.4 PG (27.0-31.0) Mean Corpuscular Hemoglobin Concent 34.9 G/DL (32.0-36.0) 35.0 G/DL (32.0-36.0) 34.2 G/DL (32.0-36.0) Red Cell Distribution Width 14.0 % (11.6-14.8) 13.8 % (11.6-14.8) 13.7 % (11.6-14.8) Platelet Count 111 K/UL (150-450) 96 K/UL (150-450) 86 K/UL (150-450) Mean Platelet Volume 6.4 FL (6.5-10.1) 5.1 FL (6.5-10.1) 5.4 FL (6.5-10.1) Neutrophils (%) (Auto) % (45.0-75.0) % (45.0-75.0) % (45.0-75.0) Lymphocytes (%) (Auto) % (20.0-45.0) % (20.0-45.0) % (20.0-45.0) Monocytes (%) (Auto) % (1.0-10.0) % (1.0-10.0) % (1.0-10.0) Eosinophils (%) (Auto) % (0.0-3.0) % (0.0-3.0) % (0.0-3.0) Basophils (%) (Auto) % (0.0-2.0) % (0.0-2.0) % (0.0-2.0) Differential Total Cells Counted 100 100 100 Neutrophils % (Manual) 90 % (45-75) 93 % (45-75) 89 % (45-75) Lymphocytes % (Manual) 4 % (20-45) 5 % (20-45) 5 % (20-45) Monocytes % (Manual) 6 % (1-10) 2 % (1-10) 6 % (1-10) Eosinophils % (Manual) 0 % (0-3) 0 % (0-3) 0 % (0-3) Basophils % (Manual) 0 % (0-2) 0 % (0-2) 0 % (0-2) Band Neutrophils 0 % (0-8) 0 % (0-8) 0 % (0-8) Platelet Estimate Decreased Decreased Decreased Platelet Morphology Normal Normal Normal Red Blood Cell Morphology Normal Hypochromasia 1+ 3+ Prothrombin Time 14.0 SEC (9.30-11.50) Prothromb Time International Ratio 1.3 (0.9-1.1) Activated Partial Thromboplast Time 34 SEC (23-33) Sodium Level 142 MMOL/L (136-145) 144 MMOL/L (136-145) Potassium Level 3.0 MMOL/L (3.5-5.1) 2.6 MMOL/L (3.5-5.1) Chloride Level 110 MMOL/L (98-107) 111 MMOL/L (98-107) Carbon Dioxide Level 19 MMOL/L (21-32) 22 MMOL/L (21-32) Anion Gap 13 mmol/L (5-15) 11 mmol/L (5-15) Blood Urea Nitrogen 108 mg/dL (7-18) 95 mg/dL (7-18) Creatinine 3.1 MG/DL (0.55-1.30) 3.1 MG/DL (0.55-1.30) 3.1 MG/DL (0.55-1.30) Estimat Glomerular Filtration Rate 19.6 mL/min (>60) 19.6 mL/min (>60) 19.6 mL/min (>60) Glucose Level 112 MG/DL (74-106) 125 MG/DL (74-106) Calcium Level 7.0 MG/DL (8.5-10.1) 7.3 MG/DL (8.5-10.1) Magnesium Level 1.5 MG/DL (1.8-2.4) Total Bilirubin 0.4 MG/DL (0.2-1.0) 0.3 MG/DL (0.2-1.0) Aspartate Amino Transf (AST/SGOT) 18 U/L (15-37) 22 U/L (15-37) Alanine Aminotransferase (ALT/SGPT) 18 U/L (12-78) 16 U/L (12-78) Alkaline Phosphatase 70 U/L (46-116) 61 U/L (46-116) Total Protein 5.6 G/DL (6.4-8.2) 5.1 G/DL (6.4-8.2) Albumin 1.3 G/DL (3.4-5.0) 1.1 G/DL (3.4-5.0) Globulin 4.3 g/dL 4.0 g/dL Albumin/Globulin Ratio 0.3 (1.0-2.7) 0.3 (1.0-2.7) Anisocytosis 1+ Spherocytes 1+ Urine Collection Time 24 HRS Urine Total Volume 1300 ML Urine Creatinine 11 MG/DL Urine Creatinine 24 Hour 143 mg/24hr (3479-9201) Patient Height Inches (Creat Clear) 67 INCHES Patient Weight Pounds (Creat Clear) 165 LBS Creatinine Clearance 3 mL/min (71-151) Test 03/10/20 16:40 03/11/20 09:10 White Blood Count 7.9 K/UL (4.8-10.8) 5.6 K/UL (4.8-10.8) Red Blood Count 2.60 M/UL (4.70-6.10) 2.28 M/UL (4.70-6.10) Hemoglobin 8.1 G/DL (14.2-18.0) 7.0 G/DL (14.2-18.0) Hematocrit 24.0 % (42.0-52.0) 20.4 % (42.0-52.0) Mean Corpuscular Volume 92 FL (80-99) 89 FL (80-99) Mean Corpuscular Hemoglobin 31.2 PG (27.0-31.0) 30.6 PG (27.0-31.0) Mean Corpuscular Hemoglobin Concent 33.8 G/DL (32.0-36.0) 34.3 G/DL (32.0-36.0) Red Cell Distribution Width 14.0 % (11.6-14.8) 13.7 % (11.6-14.8) Platelet Count 103 K/UL (150-450) 90 K/UL (150-450) Mean Platelet Volume 6.3 FL (6.5-10.1) 5.4 FL (6.5-10.1) Neutrophils (%) (Auto) 81.8 % (45.0-75.0) % (45.0-75.0) Lymphocytes (%) (Auto) 10.9 % (20.0-45.0) % (20.0-45.0) Monocytes (%) (Auto) 5.7 % (1.0-10.0) % (1.0-10.0) Eosinophils (%) (Auto) 0.9 % (0.0-3.0) % (0.0-3.0) Basophils (%) (Auto) 0.7 % (0.0-2.0) % (0.0-2.0) Magnesium Level 1.4 MG/DL (1.8-2.4) 1.1 MG/DL (1.8-2.4) Differential Total Cells Counted 100 Neutrophils % (Manual) 81 % (45-75) Lymphocytes % (Manual) 12 % (20-45) Monocytes % (Manual) 6 % (1-10) Eosinophils % (Manual) 1 % (0-3) Basophils % (Manual) 0 % (0-2) Band Neutrophils 0 % (0-8) Platelet Estimate Decreased Platelet Morphology Normal Hypochromasia 3+ Anisocytosis 1+ Sodium Level 151 MMOL/L (136-145) Potassium Level 3.0 MMOL/L (3.5-5.1) Chloride Level 117 MMOL/L (98-107) Carbon Dioxide Level 25 MMOL/L (21-32) Anion Gap 9 mmol/L (5-15) Blood Urea Nitrogen 83 mg/dL (7-18) Creatinine 3.0 MG/DL (0.55-1.30) Estimat Glomerular Filtration Rate 20.4 mL/min (>60) Glucose Level 116 MG/DL (74-106) Calcium Level 6.7 MG/DL (8.5-10.1) Objective: WDWN NAD chronically ill tachypneic reduced breath sounds bilaterally without rhonchi or wheeze [id number] tachy without MRG NABS nontender not distended; GT no CC edema nonfocal contracted line reviewed reviewed and edited Accucheck: 108 Mansoor Martinez MD Mar 11, 2020 13:49
--- NOTE | 2020-03-11 17:18 | General Progress Note ---
Assessment/Plan Status: stable, unchanged Assessment/Plan: Assessment - UGI Bleed - large fundus clot - failed EGD x 2 - likely still actively bleeding and clot forming - aberrant cecal position on CT - malnutrition / low albumin - resp failure / trach - dysphagia / PEG - multiple contractures - OBS - Anemia - Azotemia - improving sepsis Recommendations - Begin tube feeds for now, since malnourished - PPI - follow labs - DPOA to decide on level of care - Options: - ? repeat EGD next week - ? transfer to [facility] for angiogram - ? surgical options Subjective Allergies: Coded Allergies: No Known Allergies (Unverified , 02/23/12) Subjective above noted another unit of transfusion given (+) dark stools Objective Last 24 Hour Vital Signs Date Time Temp Pulse Resp B/P (MAP) Pulse Ox O2 Delivery O2 Flow Rate FiO2 03/11/20 17:00 86 18 144/82 (102) 100 03/11/20 16:44 150 26 154/91 100 03/11/20 16:00 97 37 155/91 (112) 100 03/11/20 16:00 100 03/11/20 16:00 40 03/11/20 16:00 Mechanical Ventilator 03/11/20 15:00 85 26 150/101 (117) 100 03/11/20 14:00 82 26 142/114 (123) 100 03/11/20 13:15 98.8 86 25 151/96 (114) 100 03/11/20 13:00 87 26 151/96 (114) 100 03/11/20 12:00 Mechanical Ventilator 03/11/20 12:00 92 03/11/20 12:00 40 03/11/20 12:00 95 26 144/91 (108) 95 03/11/20 11:05 78 26 100 Endotrachael Tube 40 75 26 03/11/20 11:00 77 26 134/78 (96) 100 03/11/20 10:00 80 26 134/87 (103) 100 03/11/20 09:00 86 26 139/82 (101) 100 03/11/20 08:00 84 03/11/20 08:00 Mechanical Ventilator 03/11/20 08:00 99.2 94 25 148/81 (103) 100 03/11/20 08:00 40 03/11/20 07:50 83 140/101 03/11/20 07:49 140/101 03/11/20 07:46 87 28 40 03/11/20 07:00 83 25 140/81 (100) 100 03/11/20 06:00 83 23 144/91 (108) 100 03/11/20 05:00 88 17 138/80 (99) 100 03/11/20 04:00 97 03/11/20 04:00 Mechanical Ventilator 03/11/20 04:00 40 03/11/20 04:00 98.7 97 31 141/90 (107) 100 03/11/20 03:09 96 34 40 03/11/20 03:00 89 22 137/89 (105) 100 03/11/20 02:00 89 22 147/76 (99) 100 03/11/20 01:00 81 26 142/75 (97) 100 03/11/20 00:00 81 03/11/20 00:00 98.1 86 19 139/77 (97) 100 03/11/20 00:00 Mechanical Ventilator 03/10/20 23:00 86 0 138/84 (102) 100 03/10/20 22:31 92 33 100 Mechanical Ventilator 40 93 32 40 03/10/20 22:00 96 23 135/77 (96) 100 03/10/20 21:00 95 28 153/82 (105) 100 03/10/20 20:00 40 03/10/20 20:00 Mechanical Ventilator 03/10/20 20:00 99.6 95 28 134/79 (97) 100 03/10/20 20:00 107 03/10/20 19:12 98 40 40 03/10/20 19:00 99 31 126/73 (90) 100 03/10/20 18:30 110 31 139/78 (98) 100 03/10/20 18:00 105 32 135/85 (102) 100 03/10/20 17:30 100.0 107 28 133/89 (104) 100 Intake and Output 03/10/20 03/11/20 19:00 07:00 Intake Total 2167.5 ml 2522.917 ml Output Total 685 ml 1370 ml Balance 1482.5 ml 1152.917 ml IV Total 2167.5 ml 2522.917 ml Output Urine Total 660 ml 1270 ml Stool Total 25 ml 100 ml # Bowel Movements 2 Laboratory Tests 03/11/20 09:10: White Blood Count 5.6, Red Blood Count 2.28L, Hemoglobin 7.0L, Hematocrit 20.4L , Mean Corpuscular Volume 89, Mean Corpuscular Hemoglobin 30.6, Mean Corpuscular Hemoglobin Concent 34.3, Red Cell Distribution Width 13.7, Platelet Count 90L, Mean Platelet Volume 5.4L, Neutrophils (%) (Auto) , Lymphocytes (%) ( Auto) , Monocytes (%) (Auto) , Eosinophils (%) (Auto) , Basophils (%) (Auto) , Differential Total Cells Counted 100, Neutrophils % (Manual) 81H, Lymphocytes % (Manual) 12L, Monocytes % (Manual) 6, Eosinophils % (Manual) 1, Basophils % ( Manual) 0, Band Neutrophils 0, Platelet Estimate DecreasedL, Platelet Morphology Normal, Hypochromasia 3+, Anisocytosis 1+, Sodium Level 151H, Potassium Level 3.0L, Chloride Level 117H, Carbon Dioxide Level 25, Anion Gap 9 , Blood Urea Nitrogen 83H, Creatinine 3.0H, Estimat Glomerular Filtration Rate 20.4, Glucose Level 116H, Calcium Level 6.7L, Magnesium Level 1.1L Height (Feet): 5 Height (Inches): 7.00 Weight (Pounds): 129 Objective Debilitated unresponsive man NCAT (+) trach coarse BS RR abd flat , (+) GT (+) contractures (+) skin breakdown Clive Kuo MD Mar 11, 2020 17:17
[2020-03-11] MEDS: Dyna-Hex 2% Top Sol 2oz TOPIC SCH (20:20)
[2020-03-12] VITALS (25 sets, daily range): BP systolic 142–169; BP diastolic 85–110
[2020-03-12] MEDS: Sodium Bicarbonate 50 ML in D5W 1000ml 1,000 ML IV SCH ×2 (01:31→14:58)
--- NOTE | 2020-03-12 01:39 | Cardiology Progress Note ---
Subjective DATE OF SERVICE: Mar 11, 2020 Remains in critical condition with guarded prognosis On vent via trach Still with GI blood loss, and requirements for PRBC tx On IV fluids with bicarb Monitor: sinus/sinus tachycardia Objective Last 24 Hour Vital Signs Date Time Temp Pulse Resp B/P (MAP) Pulse Ox O2 Delivery O2 Flow Rate FiO2 03/12/20 01:00 89 22 142/89 (106) 100 03/12/20 00:00 99.0 89 26 151/92 (111) 100 03/12/20 00:00 Mechanical Ventilator 03/11/20 23:27 85 26 40 03/11/20 23:00 76 27 140/82 (101) 100 03/11/20 22:00 75 26 134/79 (97) 100 03/11/20 21:00 85 26 155/89 (111) 100 03/11/20 20:00 90 03/11/20 20:00 98.9 81 26 144/83 (103) 100 03/11/20 20:00 Mechanical Ventilator 03/11/20 20:00 40 03/11/20 19:20 88 28 40 03/11/20 19:00 78 24 153/84 (107) 100 03/11/20 18:00 72 24 147/81 (103) 100 03/11/20 17:14 73 26 141/82 100 03/11/20 17:00 86 18 144/82 (102) 100 03/11/20 16:44 150 26 154/91 100 03/11/20 16:30 98.8 88 29 100 03/11/20 16:00 97 37 155/91 (112) 100 03/11/20 16:00 100 03/11/20 16:00 40 03/11/20 16:00 Mechanical Ventilator 03/11/20 15:17 96 30 40 03/11/20 15:00 85 26 150/101 (117) 100 03/11/20 14:00 82 26 142/114 (123) 100 03/11/20 13:15 98.8 86 25 151/96 (114) 100 03/11/20 13:00 87 26 151/96 (114) 100 03/11/20 12:00 Mechanical Ventilator 03/11/20 12:00 92 03/11/20 12:00 40 03/11/20 12:00 95 26 144/91 (108) 95 03/11/20 11:05 78 26 100 Endotrachael Tube 40 75 26 03/11/20 11:00 77 26 134/78 (96) 100 03/11/20 10:00 80 26 134/87 (103) 100 03/11/20 09:00 86 26 139/82 (101) 100 03/11/20 08:00 84 03/11/20 08:00 Mechanical Ventilator 03/11/20 08:00 99.2 94 25 148/81 (103) 100 03/11/20 08:00 40 03/11/20 07:50 83 140/101 03/11/20 07:49 140/101 03/11/20 07:46 87 28 40 03/11/20 07:00 83 25 140/81 (100) 100 03/11/20 06:00 83 23 144/91 (108) 100 03/11/20 05:00 88 17 138/80 (99) 100 03/11/20 04:00 97 03/11/20 04:00 Mechanical Ventilator 03/11/20 04:00 40 03/11/20 04:00 98.7 97 31 141/90 (107) 100 03/11/20 03:09 96 34 40 03/11/20 03:00 89 22 137/89 (105) 100 03/11/20 02:00 89 22 147/76 (99) 100 ROS: unchanged from my dictation of 03/05/20 HEENT: Mechanically Ventilated, Thick Trach secretions RHYTHM: ST LUNGS: bilateral rhonchi CARDIAC: regular rhythm, normal S1 and S2, tachycardia ABDOMEN: normal bowel sounds, non tender, soft, no organomegaly, decreased bowel sounds, slightly distended, G-Tube intact EXTREMITIES: no calf tenderness, pitting edema - dependent Laboratory Tests Test 03/11/20 09:10 White Blood Count 5.6 K/UL (4.8-10.8) Red Blood Count 2.28 M/UL (4.70-6.10) L Hemoglobin 7.0 G/DL (14.2-18.0) L Hematocrit 20.4 % (42.0-52.0) L Mean Corpuscular Volume 89 FL (80-99) Mean Corpuscular Hemoglobin 30.6 PG (27.0-31.0) Mean Corpuscular Hemoglobin Concent 34.3 G/DL (32.0-36.0) Red Cell Distribution Width 13.7 % (11.6-14.8) Platelet Count 90 K/UL (150-450) L Mean Platelet Volume 5.4 FL (6.5-10.1) L Neutrophils (%) (Auto) % (45.0-75.0) Lymphocytes (%) (Auto) % (20.0-45.0) Monocytes (%) (Auto) % (1.0-10.0) Eosinophils (%) (Auto) % (0.0-3.0) Basophils (%) (Auto) % (0.0-2.0) Differential Total Cells Counted 100 Neutrophils % (Manual) 81 % (45-75) H Lymphocytes % (Manual) 12 % (20-45) L Monocytes % (Manual) 6 % (1-10) Eosinophils % (Manual) 1 % (0-3) Basophils % (Manual) 0 % (0-2) Band Neutrophils 0 % (0-8) Platelet Estimate Decreased L Platelet Morphology Normal Hypochromasia 3+ Anisocytosis 1+ Sodium Level 151 MMOL/L (136-145) H Potassium Level 3.0 MMOL/L (3.5-5.1) L Chloride Level 117 MMOL/L (98-107) H Carbon Dioxide Level 25 MMOL/L (21-32) Anion Gap 9 mmol/L (5-15) Blood Urea Nitrogen 83 mg/dL (7-18) H Creatinine 3.0 MG/DL (0.55-1.30) H Estimat Glomerular Filtration Rate 20.4 mL/min (>60) Glucose Level 116 MG/DL (74-106) H Calcium Level 6.7 MG/DL (8.5-10.1) L Magnesium Level 1.1 MG/DL (1.8-2.4) L Assessment/Plan Assessment/Plan Sepsis with shock Respiratory Failure Lactic acidosis Sinus tachycardia/PAFib Acute renal failure Aspiration PNA Leukocytosis Anemia GI Bleeding Dysphagia with GTube Vent support Antimicrobials IVF with bicarb DVT prophylaxis Continue to transfuse PRBC's for hemoglobin below 7 gm/dl. Franko Pineda MD Mar 12, 2020 01:39
[2020-03-12] MEDS: Octreotide Acetate 500 MCG in Sodium Chloride 499 ML IV SCH ×3 (03:18→23:48)
[2020-03-12] MEDS: Pantoprazole 80 MG in NS 250 ML IV SCH ×3 (03:18→23:48)
[2020-03-12] MEDS: Metoclopramide 10mg/2ml Inj IVP SCH ×4 (05:39→23:48)
[2020-03-12 07:30] LABS: BASOPHILS % (AUTO) 0.4 % (0.0-2.0); EOSINOPHILS % (AUTO) 1.4 % (0.0-3.0); HEMATOCRIT 26.2 % (42.0-52.0); HEMOGLOBIN 8.9 G/DL (14.2-18.0); LYMPHOCYTES % (AUTO) 9.9 % (20.0-45.0); MEAN CORPUSCULAR VOLUME 90 FL (80-99); MONOCYTES % (AUTO) 4.3 % (1.0-10.0); NEUTROPHILS % (AUTO) 83.9 % (45.0-75.0); PLATELET COUNT 115 K/UL (150-450); RED BLOOD COUNT 2.93 M/UL (4.70-6.10); RED CELL DISTRIBUTION WIDTH 13.8 % (11.6-14.8); WHITE BLOOD COUNT 7.5 K/UL (4.8-10.8)
[2020-03-12 07:59] LABS: ALBUMIN 1.2 G/DL (3.4-5.0); ALBUMIN/GLOBULIN RATIO 0.3 (1.0-2.7); BILIRUBIN,TOTAL 0.3 MG/DL (0.2-1.0); CALCIUM 7.9 MG/DL (8.5-10.1); CREATININE 2.9 MG/DL (0.55-1.30); POTASSIUM 3.7 MMOL/L (3.5-5.1)
--- NOTE | 2020-03-12 08:10 | General Progress Note ---
Assessment/Plan Problem List: (1) GIB (gastrointestinal bleeding) ICD Codes: K92.2 - Gastrointestinal hemorrhage, unspecified SNOMED: 29128874 (2) Sepsis ICD Codes: A41.9 - Sepsis, unspecified organism SNOMED: 07199645 Qualifiers: Qualified Codes: A41.9 - Sepsis, unspecified organism; R65.20 - Severe sepsis without septic shock; N17.9 - Acute kidney failure, unspecified (3) Respiratory failure ICD Codes: J96.90 - Respiratory failure, unspecified, unspecified whether with hypoxia or hypercapnia SNOMED: 288094878 Qualifiers: Qualified Codes: J96.01 - Acute respiratory failure with hypoxia (4) Aspiration pneumonia ICD Codes: J69.0 - Pneumonitis due to inhalation of food and vomit SNOMED: 189376367 Qualifiers: Qualified Codes: O74.0 - Aspiration pneumonitis due to anesthesia during labor and delivery (5) HCAP (healthcare-associated pneumonia) ICD Codes: J18.9 - Pneumonia, unspecified organism SNOMED: 710327845, 120951460 (6) ARF (acute renal failure) ICD Codes: N17.9 - Acute kidney failure, unspecified SNOMED: 21210277, 920495553 Qualifiers: Qualified Codes: N17.9 - Acute kidney failure, unspecified Status: stable, unchanged Assessment/Plan: follow up labs transfuse as needed IVF per renal protonix and octreotide drips vent support resp rx thyroid replacement monitor sz keppra iv added bp rx critical and guarded full code Subjective ROS Limited/Unobtainable: Yes Constitutional: Reports: malaise, weakness HEENT: Reports: no symptoms Cardiovascular: Reports: no symptoms Respiratory: Reports: shortness of breath, sputum Gastrointestinal/Abdominal: Reports: black stools, tarry stools, blood in stool , difficulty swallowing Genitourinary: Reports: no symptoms Neurologic/Psychiatric: Reports: no symptoms Endocrine: Reports: no symptoms Hematologic/Lymphatic: Reports: no symptoms Allergies: Coded Allergies: No Known Allergies (Unverified , 02/23/12) All Systems: reviewed and negative except above Subjective no change. h/g better. s/p 1 unit prbcs yesterday. no fevers. BP up. had single sz yesterday. resolved after ativan. BMP pending. on ivf. on octreotide and protonix drip. Objective Last 24 Hour Vital Signs Date Time Temp Pulse Resp B/P (MAP) Pulse Ox O2 Delivery O2 Flow Rate FiO2 03/12/20 07:17 89 31 40 03/12/20 07:00 89 33 158/87 (110) 100 03/12/20 06:00 90 28 149/92 (111) 100 03/12/20 05:00 91 32 146/108 (121) 100 03/12/20 04:00 40 03/12/20 04:00 Mechanical Ventilator 03/12/20 04:00 86 03/12/20 04:00 99.4 110 32 149/98 (115) 100 03/12/20 03:15 87 31 40 03/12/20 03:00 85 26 148/85 (106) 100 03/12/20 02:00 87 19 155/87 (109) 100 03/12/20 01:00 89 22 142/89 (106) 100 03/12/20 00:00 91 03/12/20 00:00 99.0 89 26 151/92 (111) 100 03/12/20 00:00 Mechanical Ventilator 03/11/20 23:27 85 26 100 Mechanical Ventilator 40 88 26 40 03/11/20 23:00 76 27 140/82 (101) 100 03/11/20 22:00 75 26 134/79 (97) 100 03/11/20 21:00 85 26 155/89 (111) 100 03/11/20 20:00 90 03/11/20 20:00 98.9 81 26 144/83 (103) 100 03/11/20 20:00 Mechanical Ventilator 03/11/20 20:00 40 03/11/20 19:20 88 28 40 03/11/20 19:00 78 24 153/84 (107) 100 03/11/20 18:00 72 24 147/81 (103) 100 03/11/20 17:14 73 26 141/82 100 03/11/20 17:00 86 18 144/82 (102) 100 03/11/20 16:44 150 26 154/91 100 03/11/20 16:30 98.8 88 29 100 03/11/20 16:00 97 37 155/91 (112) 100 03/11/20 16:00 100 03/11/20 16:00 40 03/11/20 16:00 Mechanical Ventilator 03/11/20 15:17 96 30 40 03/11/20 15:00 85 26 150/101 (117) 100 03/11/20 14:00 82 26 142/114 (123) 100 03/11/20 13:15 98.8 86 25 151/96 (114) 100 03/11/20 13:00 87 26 151/96 (114) 100 03/11/20 12:00 Mechanical Ventilator 03/11/20 12:00 92 03/11/20 12:00 40 03/11/20 12:00 95 26 144/91 (108) 95 03/11/20 11:05 78 26 100 Endotrachael Tube 40 75 26 03/11/20 11:00 77 26 134/78 (96) 100 03/11/20 10:00 80 26 134/87 (103) 100 03/11/20 09:00 86 26 139/82 (101) 100 Intake and Output 03/11/20 03/12/20 19:00 07:00 Intake Total 2144.99 ml 2013.75 ml Output Total 1020 ml 1110 ml Balance 1124.99 ml 903.75 ml IV Total 2069.99 ml 1783.75 ml Tube Feeding 75 ml 230 ml Output Urine Total 1020 ml 1110 ml # Bowel Movements 3 3 Laboratory Tests 03/11/20 09:10: White Blood Count 5.6, Red Blood Count 2.28L, Hemoglobin 7.0L, Hematocrit 20.4L , Mean Corpuscular Volume 89, Mean Corpuscular Hemoglobin 30.6, Mean Corpuscular Hemoglobin Concent 34.3, Red Cell Distribution Width 13.7, Platelet Count 90L, Mean Platelet Volume 5.4L, Neutrophils (%) (Auto) , Lymphocytes (%) ( Auto) , Monocytes (%) (Auto) , Eosinophils (%) (Auto) , Basophils (%) (Auto) , Differential Total Cells Counted 100, Neutrophils % (Manual) 81H, Lymphocytes % (Manual) 12L, Monocytes % (Manual) 6, Eosinophils % (Manual) 1, Basophils % ( Manual) 0, Band Neutrophils 0, Platelet Estimate DecreasedL, Platelet Morphology Normal, Hypochromasia 3+, Anisocytosis 1+, Sodium Level 151H, Potassium Level 3.0L, Chloride Level 117H, Carbon Dioxide Level 25, Anion Gap 9 , Blood Urea Nitrogen 83H, Creatinine 3.0H, Estimat Glomerular Filtration Rate 20.4, Glucose Level 116H, Calcium Level 6.7L, Magnesium Level 1.1L 03/12/20 05:45: White Blood Count 7.5, Red Blood Count 2.93L, Hemoglobin 8.9L, Hematocrit 26.2L , Mean Corpuscular Volume 90, Mean Corpuscular Hemoglobin 30.5, Mean Corpuscular Hemoglobin Concent 34.0, Red Cell Distribution Width 13.8, Platelet Count 115L, Mean Platelet Volume 5.9L, Neutrophils (%) (Auto) 83.9H, Lymphocytes (%) (Auto) 9.9L, Monocytes (%) (Auto) 4.3, Eosinophils (%) (Auto) 1.4, Basophils (%) (Auto) 0.4, Sodium Level [Pending], Potassium Level [Pending] , Chloride Level [Pending], Carbon Dioxide Level [Pending], Blood Urea Nitrogen [Pending], Creatinine [Pending], Estimat Glomerular Filtration Rate [Pending], Glucose Level [Pending], Calcium Level [Pending], Total Bilirubin [Pending], Aspartate Amino Transf (AST/SGOT) [Pending], Alanine Aminotransferase (ALT/SGPT ) [Pending], Alkaline Phosphatase [Pending], Total Protein [Pending], Albumin [ Pending], Globulin [Pending] Height (Feet): 5 Height (Inches): 7.00 Weight (Pounds): 129 Objective General Appearance: WD/WN, cachetic, thin EENT: normal ENT inspection Neck: non-tender, normal alignment, supple Cardiovascular: normal rate, regular rhythm Respiratory/Chest: chest wall non-tender, lungs clear, normal breath sounds, no respiratory distress, no accessory muscle use Abdomen: normal bowel sounds, non tender, soft, no organomegaly, no mass Edema: no edema noted Arm (L), no edema noted Arm (R) Neurologic: disoriented, unresponsive, aphasia Skin: normal pigmentation Lymphatic: normal anterior cervical (L), normal anterior cervical (R) Jimi Tellez MD Mar 12, 2020 08:10
[2020-03-12] MEDS: Norepinephrine Bitartrate 16 MG in Sodium Chloride 484 ML IV SCH (08:30)
[2020-03-12] MEDS: Phenylephrine 100 MG in D5W 240 ML IV SCH (09:45)
[2020-03-12] MEDS: Meropenem 500 MG in NS 55 ML IVPB SCH ×2 (09:54→20:01)
[2020-03-12] MEDS: Colistin for inhalation INH SCH ×2 (10:11)
[2020-03-12] MEDS: levETIRAcetam 750 MG in NS 110 ML IV SCH ×2 (12:26→22:56)
--- NOTE | 2020-03-12 13:13 | Critical Care Progress Note ---
Assessment/Plan Assessment/Plan Upper GI bleed Anemia due to acute blood loss H/o GERD, previous G tube Chronic Tracheostomy, Respiratory failure with elevatedCO2 Aspiration pneumonia Sepsis Renal insufficiency, hyperkalemia, metabolic acidosis Previous Pseudomonal Pneumonia H/o Paroxysmal Atrial Fibrillation Diabetes CRI Anemia s/p transfusion Prev CVA Chronic encephalopathy Seizure history Hypothyroidism Tachycardia pleural effusions anasarca with ascites rectal tube PLAN care noted IV antibiotics reviewed respiratory noted Ventilatory support as is off load replace lytes as needed monitor fluid balance pressors off as able SNF meds supportive care GI recommendations noted suction no wean planned oxygen therapy prognosis poor for recovery monitor need for transfusion and further interventions as needed full code medications/laboratory data/nursing notes/ICU care reviewed in detail note reviewed and edited care discussed with RN and RT ICU time spent >40 minutes Critical Care - Subjective Interval Events: remains poorly responsive in ICU on fluids all reviewed and discussed Condition: critical EKG Rhythm: Sinus Tachycardia Residuals: minimal Tube Feeding Tolerated: yes I&O: Intake and Output 03/11/20 03/12/20 19:00 07:00 Intake Total 2144.99 ml 2013.75 ml Output Total 1020 ml 1110 ml Balance 1124.99 ml 903.75 ml IV Total 2069.99 ml 1783.75 ml Tube Feeding 75 ml 230 ml Output Urine Total 1020 ml 1110 ml # Bowel Movements 3 3 Critical Care - Objective Last 24 Hour Vital Signs Date Time Temp Pulse Resp B/P (MAP) Pulse Ox O2 Delivery O2 Flow Rate FiO2 03/12/20 12:00 88 33 154/97 (116) 100 03/12/20 12:00 40 03/12/20 12:00 Mechanical Ventilator 03/12/20 11:17 90 32 100 Mechanical Ventilator 40 92 30 40 03/12/20 11:00 86 28 149/87 (107) 100 03/12/20 10:00 89 29 154/100 (118) 100 03/12/20 09:45 85 152/100 03/12/20 09:00 85 30 151/101 (118) 100 03/12/20 08:30 152/100 03/12/20 08:15 85 25 152/100 (117) 100 03/12/20 08:00 40 03/12/20 08:00 Mechanical Ventilator 03/12/20 08:00 99.1 94 34 163/110 (127) 100 03/12/20 07:43 90 03/12/20 07:17 89 31 40 03/12/20 07:00 89 33 158/87 (110) 100 03/12/20 06:00 90 28 149/92 (111) 100 03/12/20 05:00 91 32 146/108 (121) 100 03/12/20 04:00 40 03/12/20 04:00 Mechanical Ventilator 03/12/20 04:00 86 03/12/20 04:00 99.4 110 32 149/98 (115) 100 03/12/20 03:15 87 31 40 03/12/20 03:00 85 26 148/85 (106) 100 03/12/20 02:00 87 19 155/87 (109) 100 03/12/20 01:00 89 22 142/89 (106) 100 03/12/20 00:00 91 03/12/20 00:00 99.0 89 26 151/92 (111) 100 03/12/20 00:00 Mechanical Ventilator 03/11/20 23:27 85 26 100 Mechanical Ventilator 40 88 26 40 03/11/20 23:00 76 27 140/82 (101) 100 03/11/20 22:00 75 26 134/79 (97) 100 03/11/20 21:00 85 26 155/89 (111) 100 03/11/20 20:00 90 03/11/20 20:00 98.9 81 26 144/83 (103) 100 03/11/20 20:00 Mechanical Ventilator 03/11/20 20:00 40 03/11/20 19:20 88 28 40 03/11/20 19:00 78 24 153/84 (107) 100 03/11/20 18:00 72 24 147/81 (103) 100 03/11/20 17:14 73 26 141/82 100 03/11/20 17:00 86 18 144/82 (102) 100 03/11/20 16:44 150 26 154/91 100 03/11/20 16:30 98.8 88 29 100 03/11/20 16:00 97 37 155/91 (112) 100 03/11/20 16:00 100 03/11/20 16:00 40 03/11/20 16:00 Mechanical Ventilator 03/11/20 15:17 96 30 40 03/11/20 15:00 85 26 150/101 (117) 100 03/11/20 14:00 82 26 142/114 (123) 100 03/11/20 13:15 98.8 86 25 151/96 (114) 100 Labs: Laboratory Tests 03/12/20 05:45: White Blood Count 7.5, Red Blood Count 2.93L, Hemoglobin 8.9L, Hematocrit 26.2L , Mean Corpuscular Volume 90, Mean Corpuscular Hemoglobin 30.5, Mean Corpuscular Hemoglobin Concent 34.0, Red Cell Distribution Width 13.8, Platelet Count 115L, Mean Platelet Volume 5.9L, Neutrophils (%) (Auto) 83.9H, Lymphocytes (%) (Auto) 9.9L, Monocytes (%) (Auto) 4.3, Eosinophils (%) (Auto) 1.4, Basophils (%) (Auto) 0.4, Sodium Level 147H, Potassium Level 3.7, Chloride Level 114H, Carbon Dioxide Level 23, Anion Gap 10, Blood Urea Nitrogen 78H, Creatinine 2.9H, Estimat Glomerular Filtration Rate 21.2, Glucose Level 107H, Calcium Level 7.9L, Total Bilirubin 0.3, Aspartate Amino Transf (AST/SGOT) 22, Alanine Aminotransferase (ALT/SGPT) 19, Alkaline Phosphatase 71, Total Protein 5.8L, Albumin 1.2L, Globulin 4.6, Albumin/Globulin Ratio 0.3L Objective: WDWN NAD chronically ill tachypneic reduced breath sounds bilaterally without rhonchi or wheeze [id number] without MRG NABS nontender not distended; GT no CC edema nonfocal contracted line reviewed reviewed and edited Accucheck: 108 Mansoor Martinez MD Mar 12, 2020 13:13
--- NOTE | 2020-03-12 14:02 | Nephrology Progress Note ---
Assessment/Plan Problem List: (1) CKD (chronic kidney disease) stage 5, GFR less than 15 ml/min (2) Respiratory failure (3) GIB (gastrointestinal bleeding) (4) Hypokalemia (5) Anemia (6) Hypernatremia (7) Protein-calorie malnutrition, severe (8) Hypomagnesemia Plan iv adjusted replace K, Mg Subjective ROS Limited/Unobtainable: Yes Objective Objective Last 24 Hour Vital Signs Date Time Temp Pulse Resp B/P (MAP) Pulse Ox O2 Delivery O2 Flow Rate FiO2 03/12/20 13:00 99.3 88 30 152/94 (113) 100 03/12/20 12:26 87 03/12/20 12:00 88 33 154/97 (116) 100 03/12/20 12:00 40 03/12/20 12:00 Mechanical Ventilator 03/12/20 11:17 90 32 100 Mechanical Ventilator 40 92 30 40 03/12/20 11:00 86 28 149/87 (107) 100 03/12/20 10:00 89 29 154/100 (118) 100 03/12/20 09:45 85 152/100 03/12/20 09:00 85 30 151/101 (118) 100 03/12/20 08:30 152/100 03/12/20 08:15 85 25 152/100 (117) 100 03/12/20 08:00 40 03/12/20 08:00 Mechanical Ventilator 03/12/20 08:00 99.1 94 34 163/110 (127) 100 03/12/20 07:43 90 03/12/20 07:17 89 31 40 03/12/20 07:00 89 33 158/87 (110) 100 03/12/20 06:00 90 28 149/92 (111) 100 03/12/20 05:00 91 32 146/108 (121) 100 03/12/20 04:00 40 03/12/20 04:00 Mechanical Ventilator 03/12/20 04:00 86 03/12/20 04:00 99.4 110 32 149/98 (115) 100 03/12/20 03:15 87 31 40 03/12/20 03:00 85 26 148/85 (106) 100 03/12/20 02:00 87 19 155/87 (109) 100 03/12/20 01:00 89 22 142/89 (106) 100 03/12/20 00:00 91 03/12/20 00:00 99.0 89 26 151/92 (111) 100 03/12/20 00:00 Mechanical Ventilator 03/11/20 23:27 85 26 100 Mechanical Ventilator 40 88 26 40 03/11/20 23:00 76 27 140/82 (101) 100 03/11/20 22:00 75 26 134/79 (97) 100 03/11/20 21:00 85 26 155/89 (111) 100 03/11/20 20:00 90 03/11/20 20:00 98.9 81 26 144/83 (103) 100 03/11/20 20:00 Mechanical Ventilator 03/11/20 20:00 40 03/11/20 19:20 88 28 40 03/11/20 19:00 78 24 153/84 (107) 100 03/11/20 18:00 72 24 147/81 (103) 100 03/11/20 17:14 73 26 141/82 100 03/11/20 17:00 86 18 144/82 (102) 100 03/11/20 16:44 150 26 154/91 100 03/11/20 16:30 98.8 88 29 100 03/11/20 16:00 97 37 155/91 (112) 100 03/11/20 16:00 100 03/11/20 16:00 40 03/11/20 16:00 Mechanical Ventilator 03/11/20 15:17 96 30 40 03/11/20 15:00 85 26 150/101 (117) 100 Intake and Output 03/11/20 03/12/20 19:00 07:00 Intake Total 2144.99 ml 2013.75 ml Output Total 1020 ml 1110 ml Balance 1124.99 ml 903.75 ml IV Total 2069.99 ml 1783.75 ml Tube Feeding 75 ml 230 ml Output Urine Total 1020 ml 1110 ml # Bowel Movements 3 3 Laboratory Tests 03/12/20 05:45: White Blood Count 7.5, Red Blood Count 2.93L, Hemoglobin 8.9L, Hematocrit 26.2L , Mean Corpuscular Volume 90, Mean Corpuscular Hemoglobin 30.5, Mean Corpuscular Hemoglobin Concent 34.0, Red Cell Distribution Width 13.8, Platelet Count 115L, Mean Platelet Volume 5.9L, Neutrophils (%) (Auto) 83.9H, Lymphocytes (%) (Auto) 9.9L, Monocytes (%) (Auto) 4.3, Eosinophils (%) (Auto) 1.4, Basophils (%) (Auto) 0.4, Sodium Level 147H, Potassium Level 3.7, Chloride Level 114H, Carbon Dioxide Level 23, Anion Gap 10, Blood Urea Nitrogen 78H, Creatinine 2.9H, Estimat Glomerular Filtration Rate 21.2, Glucose Level 107H, Calcium Level 7.9L, Total Bilirubin 0.3, Aspartate Amino Transf (AST/SGOT) 22, Alanine Aminotransferase (ALT/SGPT) 19, Alkaline Phosphatase 71, Total Protein 5.8L, Albumin 1.2L, Globulin 4.6, Albumin/Globulin Ratio 0.3L Height (Feet): 5 Height (Inches): 7.00 Weight (Pounds): 129 General Appearance: lethargic, confused EENT: other - on vent Cardiovascular: normal rate Respiratory/Chest: rhonchi - bilaterally Abdomen: soft Extremities: trace edema Neurologic: unresponsive Cl Gong MD Mar 12, 2020 14:02
--- NOTE | 2020-03-12 14:12 | Infectious Diseases Prog Note ---
Assessment/Plan Assessment/Plan A 1. pneumonia with Acinetobacter & ESBL Proteus 2. UTI 3. renal failure 4. shock 5. GI bleeding 6. diabetes mellitus 7. Positive blood cultures, likely contamination P 1. continue Meropenem & Colistin inhaler Subjective ROS Limited/Unobtainable: Yes Constitutional: Denies: fever Allergies: Coded Allergies: No Known Allergies (Unverified , 02/23/12) Objective Last 24 Hour Vital Signs Date Time Temp Pulse Resp B/P (MAP) Pulse Ox O2 Delivery O2 Flow Rate FiO2 03/12/20 13:00 99.3 88 30 152/94 (113) 100 03/12/20 12:26 87 03/12/20 12:00 88 33 154/97 (116) 100 03/12/20 12:00 40 03/12/20 12:00 Mechanical Ventilator 03/12/20 11:17 90 32 100 Mechanical Ventilator 40 92 30 40 03/12/20 11:00 86 28 149/87 (107) 100 03/12/20 10:00 89 29 154/100 (118) 100 03/12/20 09:45 85 152/100 03/12/20 09:00 85 30 151/101 (118) 100 03/12/20 08:30 152/100 03/12/20 08:15 85 25 152/100 (117) 100 03/12/20 08:00 40 03/12/20 08:00 Mechanical Ventilator 03/12/20 08:00 99.1 94 34 163/110 (127) 100 03/12/20 07:43 90 03/12/20 07:17 89 31 40 03/12/20 07:00 89 33 158/87 (110) 100 03/12/20 06:00 90 28 149/92 (111) 100 03/12/20 05:00 91 32 146/108 (121) 100 03/12/20 04:00 40 03/12/20 04:00 Mechanical Ventilator 03/12/20 04:00 86 03/12/20 04:00 99.4 110 32 149/98 (115) 100 03/12/20 03:15 87 31 40 03/12/20 03:00 85 26 148/85 (106) 100 03/12/20 02:00 87 19 155/87 (109) 100 03/12/20 01:00 89 22 142/89 (106) 100 03/12/20 00:00 91 03/12/20 00:00 99.0 89 26 151/92 (111) 100 03/12/20 00:00 Mechanical Ventilator 03/11/20 23:27 85 26 100 Mechanical Ventilator 40 88 26 40 03/11/20 23:00 76 27 140/82 (101) 100 03/11/20 22:00 75 26 134/79 (97) 100 03/11/20 21:00 85 26 155/89 (111) 100 03/11/20 20:00 90 03/11/20 20:00 98.9 81 26 144/83 (103) 100 03/11/20 20:00 Mechanical Ventilator 03/11/20 20:00 40 03/11/20 19:20 88 28 40 03/11/20 19:00 78 24 153/84 (107) 100 03/11/20 18:00 72 24 147/81 (103) 100 03/11/20 17:14 73 26 141/82 100 03/11/20 17:00 86 18 144/82 (102) 100 03/11/20 16:44 150 26 154/91 100 03/11/20 16:30 98.8 88 29 100 03/11/20 16:00 97 37 155/91 (112) 100 03/11/20 16:00 100 03/11/20 16:00 40 03/11/20 16:00 Mechanical Ventilator 03/11/20 15:17 96 30 40 03/11/20 15:00 85 26 150/101 (117) 100 Height (Feet): 5 Height (Inches): 7.00 Weight (Pounds): 129 HEENT: status post trach Respiratory/Chest: lungs clear, other - on ventilator Cardiovascular: normal rate Abdomen: soft, non tender, other - GT feeding Extremities: other - generalized edema Neurologic/Psychiatric: aphasia Laboratory Tests Test 03/12/20 05:45 White Blood Count 7.5 K/UL (4.8-10.8) Red Blood Count 2.93 M/UL (4.70-6.10) L Hemoglobin 8.9 G/DL (14.2-18.0) L Hematocrit 26.2 % (42.0-52.0) L Mean Corpuscular Volume 90 FL (80-99) Mean Corpuscular Hemoglobin 30.5 PG (27.0-31.0) Mean Corpuscular Hemoglobin Concent 34.0 G/DL (32.0-36.0) Red Cell Distribution Width 13.8 % (11.6-14.8) Platelet Count 115 K/UL (150-450) L Mean Platelet Volume 5.9 FL (6.5-10.1) L Neutrophils (%) (Auto) 83.9 % (45.0-75.0) H Lymphocytes (%) (Auto) 9.9 % (20.0-45.0) L Monocytes (%) (Auto) 4.3 % (1.0-10.0) Eosinophils (%) (Auto) 1.4 % (0.0-3.0) Basophils (%) (Auto) 0.4 % (0.0-2.0) Sodium Level 147 MMOL/L (136-145) H Potassium Level 3.7 MMOL/L (3.5-5.1) Chloride Level 114 MMOL/L (98-107) H Carbon Dioxide Level 23 MMOL/L (21-32) Anion Gap 10 mmol/L (5-15) Blood Urea Nitrogen 78 mg/dL (7-18) H Creatinine 2.9 MG/DL (0.55-1.30) H Estimat Glomerular Filtration Rate 21.2 mL/min (>60) Glucose Level 107 MG/DL (74-106) H Calcium Level 7.9 MG/DL (8.5-10.1) L Total Bilirubin 0.3 MG/DL (0.2-1.0) Aspartate Amino Transf (AST/SGOT) 22 U/L (15-37) Alanine Aminotransferase (ALT/SGPT) 19 U/L (12-78) Alkaline Phosphatase 71 U/L (46-116) Total Protein 5.8 G/DL (6.4-8.2) L Albumin 1.2 G/DL (3.4-5.0) L Globulin 4.6 g/dL Albumin/Globulin Ratio 0.3 (1.0-2.7) L Current Medications Medications (Trade) Dose Ordered Sig/Lanny Route PRN Reason Start Time Stop Time Status Last Admin Dose Admin Acetaminophen (Tylenol) 650 mg Q6H PRN ORAL MILD/TEMP 03/05/20 08:30 04/04/20 08:29 03/10/20 16:26 Chlorhexidine Gluconate (Kayla-Hex 2%) 1 applic DAILY@2000 TOPIC 03/05/20 21:00 06/03/20 20:59 03/11/20 20:20 Clonidine HCl (Catapres Tab) 0.1 mg Q4H PRN ORAL For High Blood Pressure 03/12/20 08:15 06/10/20 08:14 Colistimethate Sodium (Colistin *inhalation use only*) 75 mg Q12HR@ INH 03/09/20 22:00 03/16/20 21:59 03/12/20 10:11 Epoetin Asaf (Epoetin Asaf-EPBX(NON ESRD)) 3,000 unit SUBQ 03/10/20 21:00 06/08/20 20:59 03/10/20 20:19 Epoetin Asaf (Epoetin Asaf-EPBX(NON ESRD)) 4,000 unit SUBQ 03/10/20 21:00 06/08/20 20:59 03/10/20 20:20 Levetiracetam 750 mg/Sodium Chloride 117.5 ml @ 470 mls/hr Q12H IV 03/05/20 23:00 04/04/20 22:59 03/12/20 12:26 Levothyroxine Sodium (Synthroid) 125 mcg DAILY IV 03/10/20 09:00 04/09/20 08:59 03/12/20 09:54 Lorazepam (Ativan 2mg/ml 1ml) 1 mg Q4H PRN IV For Seizures 03/07/20 06:15 03/14/20 06:14 03/11/20 16:44 Magnesium Sulfate 100 ml @ 100 mls/hr Q1H IVPB 03/12/20 14:15 03/12/20 17:14 Meropenem 500 mg/ Sodium Chloride 55 ml @ 110 mls/hr EVERY 12 HOURS IVPB 03/09/20 12:00 03/14/20 11:59 03/12/20 09:54 Metoclopramide HCl (Reglan) 5 mg EVERY 6 HOURS IVP 03/08/20 12:00 04/07/20 11:59 03/12/20 12:26 Norepinephrine Bitartrate 16 mg/ Sodium Chloride 500 ml @ 0 mls/hr Q24H IV 03/06/20 08:30 04/05/20 08:29 03/07/20 22:54 Octreotide Acetate 500 mcg/ Sodium Chloride 500 ml @ 50 mls/hr Q10H IV 03/06/20 08:00 04/05/20 07:59 03/12/20 13:57 Pantoprazole 80 mg/Sodium Chloride 250 ml @ 25 mls/hr Q10H IV 03/05/20 12:30 04/04/20 12:29 03/12/20 13:40 Phenylephrine HCl 100 mg/Dextrose 250 ml @ 0 mls/hr Q24H IV 03/06/20 09:45 04/05/20 09:44 03/06/20 21:05 Potassium Chloride (K-Dur) 40 meq ONCE GT 03/12/20 14:15 03/12/20 15:00 Sodium Bicarbonate 50 ml/ Dextrose 1,050 ml @ 75 mls/hr Q14H IV 03/11/20 11:00 04/10/20 10:59 03/12/20 01:31 Zinc Oxide (Zinc Oxide) 1 applic TIDPRN PRN TOPIC scrotal wound 03/11/20 12:45 06/09/20 12:44 Janes Dumas MD Mar 12, 2020 14:12
--- NOTE | 2020-03-12 16:47 | Cardiology Progress Note ---
Subjective DATE OF SERVICE: Mar 12, 2020 Remains in critical condition with guarded prognosis On vent via trach Still with GI blood loss, and requirements for PRBC tx yesterday On IV fluids BP trend increasing Monitor: sinus/sinus tachycardia Objective Last 24 Hour Vital Signs Date Time Temp Pulse Resp B/P (MAP) Pulse Ox O2 Delivery O2 Flow Rate FiO2 03/12/20 16:00 99.1 87 32 150/85 (106) 100 03/12/20 16:00 Mechanical Ventilator 03/12/20 16:00 40 03/12/20 15:14 88 30 40 03/12/20 15:00 82 29 162/86 (111) 100 03/12/20 14:00 100 30 169/92 (117) 100 03/12/20 13:00 99.3 88 30 152/94 (113) 100 03/12/20 12:26 87 03/12/20 12:00 88 33 154/97 (116) 100 03/12/20 12:00 40 03/12/20 12:00 Mechanical Ventilator 03/12/20 11:17 90 32 100 Mechanical Ventilator 40 92 30 40 03/12/20 11:00 86 28 149/87 (107) 100 03/12/20 10:00 89 29 154/100 (118) 100 03/12/20 09:45 85 152/100 03/12/20 09:00 85 30 151/101 (118) 100 03/12/20 08:30 152/100 03/12/20 08:15 85 25 152/100 (117) 100 03/12/20 08:00 40 03/12/20 08:00 Mechanical Ventilator 03/12/20 08:00 99.1 94 34 163/110 (127) 100 03/12/20 07:43 90 03/12/20 07:17 89 31 40 03/12/20 07:00 89 33 158/87 (110) 100 03/12/20 06:00 90 28 149/92 (111) 100 03/12/20 05:00 91 32 146/108 (121) 100 03/12/20 04:00 40 03/12/20 04:00 Mechanical Ventilator 03/12/20 04:00 86 03/12/20 04:00 99.4 110 32 149/98 (115) 100 03/12/20 03:15 87 31 40 03/12/20 03:00 85 26 148/85 (106) 100 03/12/20 02:00 87 19 155/87 (109) 100 03/12/20 01:00 89 22 142/89 (106) 100 03/12/20 00:00 91 03/12/20 00:00 99.0 89 26 151/92 (111) 100 03/12/20 00:00 Mechanical Ventilator 03/11/20 23:27 85 26 100 Mechanical Ventilator 40 88 26 40 03/11/20 23:00 76 27 140/82 (101) 100 03/11/20 22:00 75 26 134/79 (97) 100 03/11/20 21:00 85 26 155/89 (111) 100 03/11/20 20:00 90 03/11/20 20:00 98.9 81 26 144/83 (103) 100 03/11/20 20:00 Mechanical Ventilator 03/11/20 20:00 40 03/11/20 19:20 88 28 40 03/11/20 19:00 78 24 153/84 (107) 100 03/11/20 18:00 72 24 147/81 (103) 100 03/11/20 17:14 73 26 141/82 100 03/11/20 17:00 86 18 144/82 (102) 100 03/11/20 16:44 150 26 154/91 100 ROS: unchanged from my dictation of 03/05/20 HEENT: Mechanically Ventilated, Thick Trach secretions RHYTHM: ST LUNGS: bilateral rhonchi CARDIAC: regular rhythm, normal S1 and S2, tachycardia ABDOMEN: normal bowel sounds, non tender, soft, no organomegaly, decreased bowel sounds, slightly distended, G-Tube intact EXTREMITIES: no calf tenderness, pitting edema - dependent Laboratory Tests Test 03/12/20 05:45 White Blood Count 7.5 K/UL (4.8-10.8) Red Blood Count 2.93 M/UL (4.70-6.10) L Hemoglobin 8.9 G/DL (14.2-18.0) L Hematocrit 26.2 % (42.0-52.0) L Mean Corpuscular Volume 90 FL (80-99) Mean Corpuscular Hemoglobin 30.5 PG (27.0-31.0) Mean Corpuscular Hemoglobin Concent 34.0 G/DL (32.0-36.0) Red Cell Distribution Width 13.8 % (11.6-14.8) Platelet Count 115 K/UL (150-450) L Mean Platelet Volume 5.9 FL (6.5-10.1) L Neutrophils (%) (Auto) 83.9 % (45.0-75.0) H Lymphocytes (%) (Auto) 9.9 % (20.0-45.0) L Monocytes (%) (Auto) 4.3 % (1.0-10.0) Eosinophils (%) (Auto) 1.4 % (0.0-3.0) Basophils (%) (Auto) 0.4 % (0.0-2.0) Sodium Level 147 MMOL/L (136-145) H Potassium Level 3.7 MMOL/L (3.5-5.1) Chloride Level 114 MMOL/L (98-107) H Carbon Dioxide Level 23 MMOL/L (21-32) Anion Gap 10 mmol/L (5-15) Blood Urea Nitrogen 78 mg/dL (7-18) H Creatinine 2.9 MG/DL (0.55-1.30) H Estimat Glomerular Filtration Rate 21.2 mL/min (>60) Glucose Level 107 MG/DL (74-106) H Calcium Level 7.9 MG/DL (8.5-10.1) L Total Bilirubin 0.3 MG/DL (0.2-1.0) Aspartate Amino Transf (AST/SGOT) 22 U/L (15-37) Alanine Aminotransferase (ALT/SGPT) 19 U/L (12-78) Alkaline Phosphatase 71 U/L (46-116) Total Protein 5.8 G/DL (6.4-8.2) L Albumin 1.2 G/DL (3.4-5.0) L Globulin 4.6 g/dL Albumin/Globulin Ratio 0.3 (1.0-2.7) L Assessment/Plan Assessment/Plan Sepsis with shock Respiratory Failure Lactic acidosis Sinus tachycardia/PAFib Acute renal failure Aspiration PNA Leukocytosis Anemia GI Bleeding Dysphagia with GTube Vent support Antimicrobials IVF with bicarb DVT prophylaxis Continue to transfuse PRBC's for hemoglobin below 7 gm/dl. AntiHTN rx added prn. Franko Pineda MD Mar 12, 2020 16:46
--- NOTE | 2020-03-12 16:55 | Surgery Progress Note ---
Surgery Progress Note Subjective Additional Comments labs reviewed exam stable on support Objective Last 24 Hour Vital Signs Date Time Temp Pulse Resp B/P (MAP) Pulse Ox O2 Delivery O2 Flow Rate FiO2 03/12/20 16:00 99.1 87 32 150/85 (106) 100 03/12/20 16:00 Mechanical Ventilator 03/12/20 16:00 40 03/12/20 15:14 88 30 40 03/12/20 15:00 82 29 162/86 (111) 100 03/12/20 14:00 100 30 169/92 (117) 100 03/12/20 13:00 99.3 88 30 152/94 (113) 100 03/12/20 12:26 87 03/12/20 12:00 88 33 154/97 (116) 100 03/12/20 12:00 40 03/12/20 12:00 Mechanical Ventilator 03/12/20 11:17 90 32 100 Mechanical Ventilator 40 92 30 40 03/12/20 11:00 86 28 149/87 (107) 100 03/12/20 10:00 89 29 154/100 (118) 100 03/12/20 09:45 85 152/100 03/12/20 09:00 85 30 151/101 (118) 100 03/12/20 08:30 152/100 03/12/20 08:15 85 25 152/100 (117) 100 03/12/20 08:00 40 03/12/20 08:00 Mechanical Ventilator 03/12/20 08:00 99.1 94 34 163/110 (127) 100 03/12/20 07:43 90 03/12/20 07:17 89 31 40 03/12/20 07:00 89 33 158/87 (110) 100 03/12/20 06:00 90 28 149/92 (111) 100 03/12/20 05:00 91 32 146/108 (121) 100 03/12/20 04:00 40 03/12/20 04:00 Mechanical Ventilator 03/12/20 04:00 86 03/12/20 04:00 99.4 110 32 149/98 (115) 100 03/12/20 03:15 87 31 40 03/12/20 03:00 85 26 148/85 (106) 100 03/12/20 02:00 87 19 155/87 (109) 100 03/12/20 01:00 89 22 142/89 (106) 100 03/12/20 00:00 91 03/12/20 00:00 99.0 89 26 151/92 (111) 100 03/12/20 00:00 Mechanical Ventilator 03/11/20 23:27 85 26 100 Mechanical Ventilator 40 88 26 40 03/11/20 23:00 76 27 140/82 (101) 100 03/11/20 22:00 75 26 134/79 (97) 100 03/11/20 21:00 85 26 155/89 (111) 100 03/11/20 20:00 90 03/11/20 20:00 98.9 81 26 144/83 (103) 100 03/11/20 20:00 Mechanical Ventilator 03/11/20 20:00 40 03/11/20 19:20 88 28 40 03/11/20 19:00 78 24 153/84 (107) 100 03/11/20 18:00 72 24 147/81 (103) 100 03/11/20 17:14 73 26 141/82 100 03/11/20 17:00 86 18 144/82 (102) 100 I&O Intake and Output 03/11/20 03/12/20 19:00 07:00 Intake Total 2144.99 ml 2013.75 ml Output Total 1020 ml 1110 ml Balance 1124.99 ml 903.75 ml IV Total 2069.99 ml 1783.75 ml Tube Feeding 75 ml 230 ml Output Urine Total 1020 ml 1110 ml # Bowel Movements 3 3 Cardiovascular: RSR Respiratory: decreased breath sounds Abdomen: soft, present bowel sounds Extremities: no tenderness, no cyanosis, other Laboratory Tests Test 03/12/20 05:45 White Blood Count 7.5 K/UL (4.8-10.8) Red Blood Count 2.93 M/UL (4.70-6.10) L Hemoglobin 8.9 G/DL (14.2-18.0) L Hematocrit 26.2 % (42.0-52.0) L Mean Corpuscular Volume 90 FL (80-99) Mean Corpuscular Hemoglobin 30.5 PG (27.0-31.0) Mean Corpuscular Hemoglobin Concent 34.0 G/DL (32.0-36.0) Red Cell Distribution Width 13.8 % (11.6-14.8) Platelet Count 115 K/UL (150-450) L Mean Platelet Volume 5.9 FL (6.5-10.1) L Neutrophils (%) (Auto) 83.9 % (45.0-75.0) H Lymphocytes (%) (Auto) 9.9 % (20.0-45.0) L Monocytes (%) (Auto) 4.3 % (1.0-10.0) Eosinophils (%) (Auto) 1.4 % (0.0-3.0) Basophils (%) (Auto) 0.4 % (0.0-2.0) Sodium Level 147 MMOL/L (136-145) H Potassium Level 3.7 MMOL/L (3.5-5.1) Chloride Level 114 MMOL/L (98-107) H Carbon Dioxide Level 23 MMOL/L (21-32) Anion Gap 10 mmol/L (5-15) Blood Urea Nitrogen 78 mg/dL (7-18) H Creatinine 2.9 MG/DL (0.55-1.30) H Estimat Glomerular Filtration Rate 21.2 mL/min (>60) Glucose Level 107 MG/DL (74-106) H Calcium Level 7.9 MG/DL (8.5-10.1) L Total Bilirubin 0.3 MG/DL (0.2-1.0) Aspartate Amino Transf (AST/SGOT) 22 U/L (15-37) Alanine Aminotransferase (ALT/SGPT) 19 U/L (12-78) Alkaline Phosphatase 71 U/L (46-116) Total Protein 5.8 G/DL (6.4-8.2) L Albumin 1.2 G/DL (3.4-5.0) L Globulin 4.6 g/dL Albumin/Globulin Ratio 0.3 (1.0-2.7) L Plan Problems: (1) Respiratory failure (2) GIB (gastrointestinal bleeding) Assessment & Plan: 79-year-old male with leukocytosis, anemia, NG tube inserted and bright blood identified. Plan for urgent EGD today. Protonix IV N.p.o. IV fluid resuscitation PRBC transfusion trend labs Care plan discussed with GI will await EGD findings Thank you for let me participate in patient's care will follow with recommendations EGD findings noted discussed with GI NG tube placed Continuous gastric irrigation and suction initiated plan for repeat scope soon repeat scope noted unchanged cannot remove clot CT reviewed surgery too high risk no active bleeding trend h/h start tf plan to repeat scope next week discussed with GI hold on surgery There is a rectal tube in place. The balloon is likely inflated within the anal canal rather than the distal rectum. There is marked rectal wall thickening and considerable edema of the perirectal fat. Prominent gas-filled right upper quadrant bowel seen on recent plain radiographs is demonstrated to be the cecum. Although the sacrum appears quite wide in transverse dimension (approximately 11.5 cm) it is not particularly distended in the AP plane, measuring 4.9 cm AP. The anatomy of the ascending colon and hepatic flexure is not well-defined, and it is unclear whether this represents a possible cecal bascule versus an unusually positioned but otherwise normal cecum. No definite wall thickening is evident. The terminal ileum is normal in caliber or collapsed. The remainder of the small bowel appears mildly dilated, gas and fluid-filled, and the transition point appears to be gradual. No definite small bowel wall thickening. There is a gastrostomy tube which appears to be well positioned at the gastric antrum body junction.. The stomach is distended. The gastric antrum and proximal duodenum appears somewhat thick walled. Ingested contrast has traversed a portion of the proximal small bowel. There is considerable material dependently within the stomach, displacing the ingested contrast. Surgical clips are seen in the mesenteric root inferior to the pancreatic tail and anterior to the proximal jejunum There is moderate free intraperitoneal fluid. No free intraperitoneal gas is demonstrated. Lack of IV contrast limits assessment of the solid organs. The liver, gallbladder, bile ducts, pancreas, spleen, adrenals, right kidney are unremarkable. Left kidney demonstrates a lower pole cyst. The bladder is mildly distended, and minimally thick-walled. There are bilateral right greater than left pleural effusions. There is bilateral basilar pulmonary parenchymal consolidation and/or edema consolidation. The heart is upper limits normal in size. There is extensive edema of the subcutaneous fat, less extensive edema of the mesenteric and retroperitoneal fat. The bones demonstrate a compression fracture deformity of the L1 vertebral body. There are degenerative changes at the lumbosacral junction. Impression: Poorly delineated cecal and ascending colon anatomy. Dilated bowel loop in the right upper quadrant seen on recent plain radiograph is demonstrated to be the cecum. It is dilated, although less severely than is suggested by the plain radiograph. The tip of the cecum is pointed cephalad. There is also dilatation of most of the small bowel, which is dilated, gas and fluid-filled, but the terminal ileum is nondilated. There is not a definite abrupt transition point. Findings may be purely on the basis of ileus with variant cecal anatomy and unusual hepato- colonic interposition, but the possibility of a cecal bascule or internal hernia causing ascending colon and/or distal small bowel obstruction should also be considered. Rectal tube balloon is dilated within the anal canal. Recommend deflation and repositioning Wall thickening of the distal sigmoid and rectum, with edema of the perirectal/perisigmoid fat, concerning for colitis. Distended stomach. Given stated clinical history of GI bleeding, material within the gastric fundus displacing the contrast likely represents blood clots, but any of this could also represent an endophytic mass lesion. There is no rand gastric fundal wall thickening. There is some wall thickening of the gastric antrum and duodenum, although this could in part be an artifact of lack of distention. Gastrostomy is in good position Moderate ascites Bilateral pleural effusions. Bilateral parenchymal consolidation, may reflect pulmonary edema versus parenchymal infiltrates Other evidence of anasarca, with diffuse edema of the subcutaneous fat, less severe edema of the abdominal fat L1 vertebral body compression fracture, age-indeterminate Other findings as noted, including degenerative spondylosis, left lower pole renal cyst. (3) Aspiration pneumonia (4) Sepsis (5) ARF (acute renal failure) (6) HCAP (healthcare-associated pneumonia) (7) Dehydration (8) Hypokalemia (9) Hyperkalemia (10) Anemia (11) Decubitus skin ulcer Assessment & Plan: Pt presented on admission with gross contractures, Multiple Pressure Injuries, Tracheostomy. Skin Assessed under tracheal collar and no evidence of skin breakdown noted. Tear noted to urinary meatus- no exudate noted. Scrotum is erythematous with scattered satellite lesions. Large ulcer noted to R scrotal sac (L)4cm x (W)4.6cm. Base of wound is erythematous ,moist with Biofilm. Sacral DTPI with clusters of small islands of slough with surrounding maroon and indurated areas (L)8cm x (W)12cm.Mild Odor noted. Partial thickness Pressure Injury Upper/outer R buttocks(L)1.8cm x (W)1.3cm. Base of wound is moist and viable. Edges adherent to base of wound. Surrounding non-blanching erythema with scattered areas of shearing noted. Partial thickness Pressure Inferior lower R buttocks.(L)0.8cm x (W)1.2cm. Base of wound is moist and viable. Edges adherent to base of wound. Surrounding non- blanching erythema with scattered shearing noted extending into R ischial tuberosity. Clusters of small hyperpigmentation noted to L trochanteric and L ischial tuberosity. R Heel is fluctuant with scattered dry eschar and surrounding Non-Blanchable erythema.(L)6.5cm x (W)8cm. DTPI distal/lateral R foot(L)3cm x (W)3cm. Base of wound is maroon and fluctuant. dry eschar noted to tip of R 1st metatarsal with surrounding non-blanchable erythema extending dorsally and laterally of metatarsal(L)5cm x (W)1.3cm Non-Blanchable erythema that is fluctuant at base noted to dorso/lateral L 5th metatarsal(L)0.6cm x (W)0.3cm. L Heel is boggy with non-blanchable erythema laterally. Hyperpigmentation from previous wound noted at L heel. Tx.Plan: Cleanse Sacral wound with Saline. Apply TheraHoney to slough. Apply Moisture Barrier Paste periwound. Cover with Optifoam drsg. Change daily and prn. Apply Moisture Barrier Paste to Wounds R upper and lower R Buttocks. Cover each wound with Optifoam drsg. Change every 3 days and prn. Apply Zinc Oxide Paste to Scrotal Wounds TID and prn. Apply Betadine to wounds R heel and R foot . Cover with ABD Pads and wrap with Kerlix every 3 days and prn. Apply Betadine to L foot. Cover with ABD Pads and wrap with Kerlix every 3 days and prn. Cover Bony Prominences as needed with Optifoam drsgs. Reposition at least every 2hours or as tolerated. Off-load heels with pillow. 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
[2020-03-12] MEDS: Dyna-Hex 2% Top Sol 2oz TOPIC SCH (20:01)
--- NOTE | 2020-03-12 22:41 | General Progress Note ---
Assessment/Plan Status: stable, unchanged Assessment/Plan: Assessment - UGI Bleed - large fundus clot - failed EGD x 2 - likely still actively bleeding and clot forming - aberrant cecal position on CT - malnutrition / low albumin - resp failure / trach - dysphagia / PEG - multiple contractures - OBS - Anemia - Azotemia - improving sepsis Recommendations - Continue tube feeds - PPI - follow labs - DPOA to decide on level of care - Options: - ? repeat EGD next week - ? transfer to [facility] for angiogram - ? surgical options Subjective Allergies: Coded Allergies: No Known Allergies (Unverified , 02/23/12) Subjective above noted doing better today tolerating TF Objective Last 24 Hour Vital Signs Date Time Temp Pulse Resp B/P (MAP) Pulse Ox O2 Delivery O2 Flow Rate FiO2 03/12/20 22:00 76 26 146/99 (115) 100 03/12/20 21:00 87 22 153/89 (110) 100 03/12/20 20:00 83 03/12/20 20:00 99.1 80 29 144/94 (111) 100 03/12/20 20:00 40 03/12/20 20:00 Mechanical Ventilator 03/12/20 19:00 72 26 147/94 (111) 100 03/12/20 19:00 72 26 40 03/12/20 18:00 79 30 145/85 (105) 100 03/12/20 17:00 85 30 152/91 (111) 100 03/12/20 16:00 99.1 87 32 150/85 (106) 100 03/12/20 16:00 Mechanical Ventilator 03/12/20 16:00 40 03/12/20 15:56 86 03/12/20 15:14 88 30 40 03/12/20 15:00 82 29 162/86 (111) 100 03/12/20 14:00 100 30 169/92 (117) 100 03/12/20 13:00 99.3 88 30 152/94 (113) 100 03/12/20 12:26 87 03/12/20 12:00 88 33 154/97 (116) 100 03/12/20 12:00 40 03/12/20 12:00 Mechanical Ventilator 03/12/20 11:17 90 32 100 Mechanical Ventilator 40 92 30 40 03/12/20 11:00 86 28 149/87 (107) 100 03/12/20 10:00 89 29 154/100 (118) 100 03/12/20 09:45 85 152/100 03/12/20 09:00 85 30 151/101 (118) 100 03/12/20 08:30 152/100 03/12/20 08:15 85 25 152/100 (117) 100 03/12/20 08:00 40 03/12/20 08:00 Mechanical Ventilator 03/12/20 08:00 99.1 94 34 163/110 (127) 100 03/12/20 07:43 90 03/12/20 07:17 89 31 40 03/12/20 07:00 89 33 158/87 (110) 100 03/12/20 06:00 90 28 149/92 (111) 100 03/12/20 05:00 91 32 146/108 (121) 100 03/12/20 04:00 40 03/12/20 04:00 Mechanical Ventilator 03/12/20 04:00 86 03/12/20 04:00 99.4 110 32 149/98 (115) 100 03/12/20 03:15 87 31 40 03/12/20 03:00 85 26 148/85 (106) 100 03/12/20 02:00 87 19 155/87 (109) 100 03/12/20 01:00 89 22 142/89 (106) 100 03/12/20 00:00 91 03/12/20 00:00 99.0 89 26 151/92 (111) 100 03/12/20 00:00 Mechanical Ventilator 03/11/20 23:27 85 26 100 Mechanical Ventilator 40 88 26 40 03/11/20 23:00 76 27 140/82 (101) 100 Intake and Output 03/11/20 03/12/20 19:00 07:00 Intake Total 2144.99 ml 2013.75 ml Output Total 1020 ml 1110 ml Balance 1124.99 ml 903.75 ml IV Total 2069.99 ml 1783.75 ml Tube Feeding 75 ml 230 ml Output Urine Total 1020 ml 1110 ml # Bowel Movements 3 3 Laboratory Tests 03/12/20 05:45: White Blood Count 7.5, Red Blood Count 2.93L, Hemoglobin 8.9L, Hematocrit 26.2L , Mean Corpuscular Volume 90, Mean Corpuscular Hemoglobin 30.5, Mean Corpuscular Hemoglobin Concent 34.0, Red Cell Distribution Width 13.8, Platelet Count 115L, Mean Platelet Volume 5.9L, Neutrophils (%) (Auto) 83.9H, Lymphocytes (%) (Auto) 9.9L, Monocytes (%) (Auto) 4.3, Eosinophils (%) (Auto) 1.4, Basophils (%) (Auto) 0.4, Sodium Level 147H, Potassium Level 3.7, Chloride Level 114H, Carbon Dioxide Level 23, Anion Gap 10, Blood Urea Nitrogen 78H, Creatinine 2.9H, Estimat Glomerular Filtration Rate 21.2, Glucose Level 107H, Calcium Level 7.9L, Total Bilirubin 0.3, Aspartate Amino Transf (AST/SGOT) 22, Alanine Aminotransferase (ALT/SGPT) 19, Alkaline Phosphatase 71, Total Protein 5.8L, Albumin 1.2L, Globulin 4.6, Albumin/Globulin Ratio 0.3L Height (Feet): 5 Height (Inches): 7.00 Weight (Pounds): 129 Objective Debilitated unresponsive man NCAT (+) trach coarse BS RR abd flat , (+) GT (+) contractures (+) skin breakdown Clive Kuo MD Mar 12, 2020 22:41
[2020-03-12] MEDS ORDERED: NS 275ml ONE (22:45)
[2020-03-12] MEDS ORDERED: Tubing IV Secondary IV ONE (22:45)
[2020-03-12] MEDS ORDERED: D5W 275ml ONE (22:45)
[2020-03-12] MEDS ORDERED: Sterile Water Irrig 2000ml IRRIG ONE (22:45)
[2020-03-13] VITALS (24 sets, daily range): BP systolic 126–162; BP diastolic 68–95
[2020-03-13] MEDS: Colistin for inhalation INH SCH ×3 (03:14→23:35)
[2020-03-13] MEDS: Sodium Bicarbonate 50 ML in D5W 1000ml 1,000 ML IV SCH ×2 (04:08→20:00)
[2020-03-13] MEDS: Metoclopramide 10mg/2ml Inj IVP SCH ×3 (05:42→17:09)
--- NOTE | 2020-03-13 07:09 | General Progress Note ---
Assessment/Plan Problem List: (1) GIB (gastrointestinal bleeding) ICD Codes: K92.2 - Gastrointestinal hemorrhage, unspecified SNOMED: 27139953 (2) Sepsis ICD Codes: A41.9 - Sepsis, unspecified organism SNOMED: 01778384 Qualifiers: Qualified Codes: A41.9 - Sepsis, unspecified organism; R65.20 - Severe sepsis without septic shock; N17.9 - Acute kidney failure, unspecified (3) Respiratory failure ICD Codes: J96.90 - Respiratory failure, unspecified, unspecified whether with hypoxia or hypercapnia SNOMED: 676490692 Qualifiers: Qualified Codes: J96.01 - Acute respiratory failure with hypoxia (4) Aspiration pneumonia ICD Codes: J69.0 - Pneumonitis due to inhalation of food and vomit SNOMED: 955011328 Qualifiers: Qualified Codes: O74.0 - Aspiration pneumonitis due to anesthesia during labor and delivery (5) HCAP (healthcare-associated pneumonia) ICD Codes: J18.9 - Pneumonia, unspecified organism SNOMED: 168256817, 608892875 (6) ARF (acute renal failure) ICD Codes: N17.9 - Acute kidney failure, unspecified SNOMED: 69749735, 578576452 Qualifiers: Qualified Codes: N17.9 - Acute kidney failure, unspecified Status: stable, unchanged Assessment/Plan: follow up labs transfuse as needed IVF per renal protonix and octreotide drips vent support resp rx thyroid replacement monitor sz keppra iv bp rx full code transfer to [facility] if h/h stablet Subjective ROS Limited/Unobtainable: Yes Constitutional: Reports: malaise, weakness HEENT: Reports: no symptoms Cardiovascular: Reports: no symptoms Respiratory: Reports: shortness of breath, sputum Gastrointestinal/Abdominal: Reports: black stools, difficulty swallowing Neurologic/Psychiatric: Reports: pre-existing deficit, seizure Endocrine: Reports: no symptoms Hematologic/Lymphatic: Reports: anemia Allergies: Coded Allergies: No Known Allergies (Unverified , 02/23/12) All Systems: reviewed and negative except above Subjective no change. labs pending. having small volume black stools- 50cc. no fevers. BP up. no szs. tolerating feeds, on octreotide and protonix drip. Objective Last 24 Hour Vital Signs Date Time Temp Pulse Resp B/P (MAP) Pulse Ox O2 Delivery O2 Flow Rate FiO2 9/14/20 06:00 86 33 126/84 (98) 96 03/13/20 05:00 86 32 139/75 (96) 97 03/13/20 04:00 99.1 90 24 134/92 (106) 92 03/13/20 04:00 40 03/13/20 04:00 85 03/13/20 04:00 Mechanical Ventilator 03/13/20 03:00 86 30 151/81 (104) 99 03/13/20 02:30 72 32 40 03/13/20 02:00 88 28 151/86 (107) 100 03/13/20 01:00 79 29 144/82 (102) 100 03/13/20 00:00 69 03/13/20 00:00 40 03/13/20 00:00 99.5 91 30 153/82 (105) 100 03/13/20 00:00 Mechanical Ventilator 03/12/20 23:00 79 26 146/85 (105) 100 03/12/20 22:00 76 26 146/99 (115) 100 03/12/20 21:30 89 30 100 Mechanical Ventilator 40 84 28 40 03/12/20 21:00 87 22 153/89 (110) 100 03/12/20 20:00 83 03/12/20 20:00 99.1 80 29 144/94 (111) 100 03/12/20 20:00 40 03/12/20 20:00 Mechanical Ventilator 03/12/20 19:00 72 26 147/94 (111) 100 03/12/20 19:00 72 26 40 03/12/20 18:00 79 30 145/85 (105) 100 03/12/20 17:00 85 30 152/91 (111) 100 03/12/20 16:00 99.1 87 32 150/85 (106) 100 03/12/20 16:00 Mechanical Ventilator 03/12/20 16:00 40 03/12/20 15:56 86 03/12/20 15:14 88 30 40 03/12/20 15:00 82 29 162/86 (111) 100 03/12/20 14:00 100 30 169/92 (117) 100 03/12/20 13:00 99.3 88 30 152/94 (113) 100 03/12/20 12:26 87 03/12/20 12:00 88 33 154/97 (116) 100 03/12/20 12:00 40 03/12/20 12:00 Mechanical Ventilator 03/12/20 11:17 90 32 100 Mechanical Ventilator 40 92 30 40 03/12/20 11:00 86 28 149/87 (107) 100 03/12/20 10:00 89 29 154/100 (118) 100 03/12/20 09:45 85 152/100 03/12/20 09:00 85 30 151/101 (118) 100 03/12/20 08:30 152/100 03/12/20 08:15 85 25 152/100 (117) 100 03/12/20 08:00 40 03/12/20 08:00 Mechanical Ventilator 03/12/20 08:00 99.1 94 34 163/110 (127) 100 03/12/20 07:43 90 03/12/20 07:17 89 31 40 Intake and Output 03/12/20 03/13/20 19:00 07:00 Intake Total 2145.833 ml 2202.5 ml Output Total 605 ml 855 ml Balance 1540.833 ml 1347.5 ml Free Water 50 ml IV Total 1835.833 ml 1822.5 ml Tube Feeding 310 ml 330 ml Output Urine Total 365 ml 855 ml Stool Total 240 ml # Bowel Movements 3 50 Laboratory Tests 03/13/20 06:00: White Blood Count [Pending], Red Blood Count [Pending], Hemoglobin [Pending], Hematocrit [Pending], Mean Corpuscular Volume [Pending], Mean Corpuscular Hemoglobin [Pending], Mean Corpuscular Hemoglobin Concent [Pending], Red Cell Distribution Width [Pending], Platelet Count [Pending], Mean Platelet Volume [ Pending], Neutrophils (%) (Auto) [Pending], Lymphocytes (%) (Auto) [Pending], Monocytes (%) (Auto) [Pending], Eosinophils (%) (Auto) [Pending], Basophils (%) (Auto) [Pending], Sodium Level [Pending], Potassium Level [Pending], Chloride Level [Pending], Carbon Dioxide Level [Pending], Blood Urea Nitrogen [Pending], Creatinine [Pending], Estimat Glomerular Filtration Rate [Pending], Glucose Level [Pending], Calcium Level [Pending], Phosphorus Level [Pending], Magnesium Level [Pending] Height (Feet): 5 Height (Inches): 7.00 Weight (Pounds): 129 Objective General Appearance: WD/WN, cachetic, thin EENT: normal ENT inspection Neck: non-tender, normal alignment, supple Cardiovascular: normal rate, regular rhythm Respiratory/Chest: chest wall non-tender, lungs clear, normal breath sounds, no respiratory distress, no accessory muscle use Abdomen: normal bowel sounds, non tender, soft, no organomegaly, no mass Edema: no edema noted Arm (L), no edema noted Arm (R) Neurologic: disoriented, unresponsive, aphasia Skin: normal pigmentation Lymphatic: normal anterior cervical (L), normal anterior cervical (R) Jimi Tellez MD Mar 13, 2020 07:09
[2020-03-13 07:20] LABS: BASOPHILS % (AUTO) 0.3 % (0.0-2.0); EOSINOPHILS % (AUTO) 2.1 % (0.0-3.0); HEMOGLOBIN 8.5 G/DL (14.2-18.0); LYMPHOCYTES % (AUTO) 12.1 % (20.0-45.0); MEAN CORPUSCULAR VOLUME 90 FL (80-99); MONOCYTES % (AUTO) 4.9 % (1.0-10.0); NEUTROPHILS % (AUTO) 80.7 % (45.0-75.0); PLATELET COUNT 120 K/UL (150-450); RED BLOOD COUNT 2.77 M/UL (4.70-6.10); RED CELL DISTRIBUTION WIDTH 14.6 % (11.6-14.8); WHITE BLOOD COUNT 8.1 K/UL (4.8-10.8)
[2020-03-13 07:35] LABS: CALCIUM 7.3 MG/DL (8.5-10.1); CREATININE 2.8 MG/DL (0.55-1.30); POTASSIUM 3.3 MMOL/L (3.5-5.1)
--- NOTE | 2020-03-13 08:44 | Critical Care Progress Note ---
Assessment/Plan Assessment/Plan Upper GI bleed Anemia due to acute blood loss H/o GERD, previous G tube Chronic Tracheostomy, Respiratory failure with elevatedCO2 Aspiration pneumonia Sepsis Renal insufficiency, hyperkalemia, metabolic acidosis Previous Pseudomonal Pneumonia H/o Paroxysmal Atrial Fibrillation Diabetes CRI Anemia s/p transfusion Prev CVA Chronic encephalopathy Seizure history Hypothyroidism Tachycardia pleural effusions anasarca with ascites rectal tube PLAN care noted IV antibiotics reviewed respiratory noted Ventilatory support as is off load replace lytes as needed monitor fluid balance pressors off as able SNF meds supportive care GI recommendations noted suction no wean planned oxygen therapy prognosis poor for recovery monitor need for transfusion and further interventions as needed full code medications/laboratory data/nursing notes/ICU care reviewed in detail note reviewed and edited care discussed with RN and RT ICU time spent >40 minutes Critical Care - Subjective ROS Limited/Unobtainable: Yes Condition: critical EKG Rhythm: Sinus Rhythm Residuals: minimal Tube Feeding Tolerated: yes I&O: Intake and Output 03/12/20 03/13/20 19:00 07:00 Intake Total 2145.833 ml 2202.5 ml Output Total 605 ml 855 ml Balance 1540.833 ml 1347.5 ml Free Water 50 ml IV Total 1835.833 ml 1822.5 ml Tube Feeding 310 ml 330 ml Output Urine Total 365 ml 855 ml Stool Total 240 ml # Bowel Movements 3 50 Critical Care - Objective Last 24 Hour Vital Signs Date Time Temp Pulse Resp B/P (MAP) Pulse Ox O2 Delivery O2 Flow Rate FiO2 03/13/20 07:08 85 31 40 03/13/20 06:00 86 33 126/84 (98) 96 03/13/20 05:00 86 32 139/75 (96) 97 03/13/20 04:00 99.1 90 24 134/92 (106) 92 03/13/20 04:00 40 03/13/20 04:00 85 03/13/20 04:00 Mechanical Ventilator 03/13/20 03:00 86 30 151/81 (104) 99 03/13/20 02:30 72 32 40 03/13/20 02:00 88 28 151/86 (107) 100 03/13/20 01:00 79 29 144/82 (102) 100 03/13/20 00:00 69 03/13/20 00:00 40 03/13/20 00:00 99.5 91 30 153/82 (105) 100 03/13/20 00:00 Mechanical Ventilator 03/12/20 23:00 79 26 146/85 (105) 100 03/12/20 22:00 76 26 146/99 (115) 100 03/12/20 21:30 89 30 100 Mechanical Ventilator 40 84 28 40 03/12/20 21:00 87 22 153/89 (110) 100 03/12/20 20:00 83 03/12/20 20:00 99.1 80 29 144/94 (111) 100 03/12/20 20:00 40 03/12/20 20:00 Mechanical Ventilator 03/12/20 19:00 72 26 147/94 (111) 100 03/12/20 19:00 72 26 40 03/12/20 18:00 79 30 145/85 (105) 100 03/12/20 17:00 85 30 152/91 (111) 100 03/12/20 16:00 99.1 87 32 150/85 (106) 100 03/12/20 16:00 Mechanical Ventilator 03/12/20 16:00 40 03/12/20 15:56 86 03/12/20 15:14 88 30 40 03/12/20 15:00 82 29 162/86 (111) 100 03/12/20 14:00 100 30 169/92 (117) 100 03/12/20 13:00 99.3 88 30 152/94 (113) 100 03/12/20 12:26 87 03/12/20 12:00 88 33 154/97 (116) 100 03/12/20 12:00 40 03/12/20 12:00 Mechanical Ventilator 03/12/20 11:17 90 32 100 Mechanical Ventilator 40 92 30 40 03/12/20 11:00 86 28 149/87 (107) 100 03/12/20 10:00 89 29 154/100 (118) 100 03/12/20 09:45 85 152/100 03/12/20 09:00 85 30 151/101 (118) 100 Labs: Labs Test 03/10/20 11:00 03/10/20 16:40 03/11/20 09:10 03/12/20 05:45 Urine Collection Time 24 HRS Urine Total Volume 1300 ML Urine Creatinine 11 MG/DL Urine Creatinine 24 Hour 143 mg/24hr ([id number]) Patient Height Inches (Creat Clear) 67 INCHES Patient Weight Pounds (Creat Clear) 165 LBS Creatinine Clearance 3 mL/min (71-151) Creatinine 3.1 MG/DL (0.55-1.30) 3.0 MG/DL (0.55-1.30) 2.9 MG/DL (0.55-1.30) Estimat Glomerular Filtration Rate 19.6 mL/min (>60) 20.4 mL/min (>60) 21.2 mL/min (>60) White Blood Count 7.9 K/UL (4.8-10.8) 5.6 K/UL (4.8-10.8) 7.5 K/UL (4.8-10.8) Red Blood Count 2.60 M/UL (4.70-6.10) 2.28 M/UL (4.70-6.10) 2.93 M/UL (4.70-6.10) Hemoglobin 8.1 G/DL (14.2-18.0) 7.0 G/DL (14.2-18.0) 8.9 G/DL (14.2-18.0) Hematocrit 24.0 % (42.0-52.0) 20.4 % (42.0-52.0) 26.2 % (42.0-52.0) Mean Corpuscular Volume 92 FL (80-99) 89 FL (80-99) 90 FL (80-99) Mean Corpuscular Hemoglobin 31.2 PG (27.0-31.0) 30.6 PG (27.0-31.0) 30.5 PG (27.0-31.0) Mean Corpuscular Hemoglobin Concent 33.8 G/DL (32.0-36.0) 34.3 G/DL (32.0-36.0) 34.0 G/DL (32.0-36.0) Red Cell Distribution Width 14.0 % (11.6-14.8) 13.7 % (11.6-14.8) 13.8 % (11.6-14.8) Platelet Count 103 K/UL (150-450) 90 K/UL (150-450) 115 K/UL (150-450) Mean Platelet Volume 6.3 FL (6.5-10.1) 5.4 FL (6.5-10.1) 5.9 FL (6.5-10.1) Neutrophils (%) (Auto) 81.8 % (45.0-75.0) % (45.0-75.0) 83.9 % (45.0-75.0) Lymphocytes (%) (Auto) 10.9 % (20.0-45.0) % (20.0-45.0) 9.9 % (20.0-45.0) Monocytes (%) (Auto) 5.7 % (1.0-10.0) % (1.0-10.0) 4.3 % (1.0-10.0) Eosinophils (%) (Auto) 0.9 % (0.0-3.0) % (0.0-3.0) 1.4 % (0.0-3.0) Basophils (%) (Auto) 0.7 % (0.0-2.0) % (0.0-2.0) 0.4 % (0.0-2.0) Magnesium Level 1.4 MG/DL (1.8-2.4) 1.1 MG/DL (1.8-2.4) Differential Total Cells Counted 100 Neutrophils % (Manual) 81 % (45-75) Lymphocytes % (Manual) 12 % (20-45) Monocytes % (Manual) 6 % (1-10) Eosinophils % (Manual) 1 % (0-3) Basophils % (Manual) 0 % (0-2) Band Neutrophils 0 % (0-8) Platelet Estimate Decreased Platelet Morphology Normal Hypochromasia 3+ Anisocytosis 1+ Sodium Level 151 MMOL/L (136-145) 147 MMOL/L (136-145) Potassium Level 3.0 MMOL/L (3.5-5.1) 3.7 MMOL/L (3.5-5.1) Chloride Level 117 MMOL/L (98-107) 114 MMOL/L (98-107) Carbon Dioxide Level 25 MMOL/L (21-32) 23 MMOL/L (21-32) Anion Gap 9 mmol/L (5-15) 10 mmol/L (5-15) Blood Urea Nitrogen 83 mg/dL (7-18) 78 mg/dL (7-18) Glucose Level 116 MG/DL (74-106) 107 MG/DL (74-106) Calcium Level 6.7 MG/DL (8.5-10.1) 7.9 MG/DL (8.5-10.1) Total Bilirubin 0.3 MG/DL (0.2-1.0) Aspartate Amino Transf (AST/SGOT) 22 U/L (15-37) Alanine Aminotransferase (ALT/SGPT) 19 U/L (12-78) Alkaline Phosphatase 71 U/L (46-116) Total Protein 5.8 G/DL (6.4-8.2) Albumin 1.2 G/DL (3.4-5.0) Globulin 4.6 g/dL Albumin/Globulin Ratio 0.3 (1.0-2.7) Test 03/13/20 06:00 White Blood Count 8.1 K/UL (4.8-10.8) Red Blood Count 2.77 M/UL (4.70-6.10) Hemoglobin 8.5 G/DL (14.2-18.0) Hematocrit 25.0 % (42.0-52.0) Mean Corpuscular Volume 90 FL (80-99) Mean Corpuscular Hemoglobin 30.8 PG (27.0-31.0) Mean Corpuscular Hemoglobin Concent 34.1 G/DL (32.0-36.0) Red Cell Distribution Width 14.6 % (11.6-14.8) Platelet Count 120 K/UL (150-450) Mean Platelet Volume 6.5 FL (6.5-10.1) Neutrophils (%) (Auto) 80.7 % (45.0-75.0) Lymphocytes (%) (Auto) 12.1 % (20.0-45.0) Monocytes (%) (Auto) 4.9 % (1.0-10.0) Eosinophils (%) (Auto) 2.1 % (0.0-3.0) Basophils (%) (Auto) 0.3 % (0.0-2.0) Sodium Level 148 MMOL/L (136-145) Potassium Level 3.3 MMOL/L (3.5-5.1) Chloride Level 115 MMOL/L (98-107) Carbon Dioxide Level 24 MMOL/L (21-32) Anion Gap 9 mmol/L (5-15) Blood Urea Nitrogen 67 mg/dL (7-18) Creatinine 2.8 MG/DL (0.55-1.30) Estimat Glomerular Filtration Rate 22.1 mL/min (>60) Glucose Level 128 MG/DL (74-106) Calcium Level 7.3 MG/DL (8.5-10.1) Phosphorus Level 3.0 MG/DL (2.5-4.9) Magnesium Level 1.9 MG/DL (1.8-2.4) Objective: WDWN NAD chronically ill tachypneic reduced breath sounds bilaterally without rhonchi or wheeze [id number] without MRG NABS nontender not distended; GT no CC edema nonfocal contracted line reviewed reviewed and edited Accucheck: 108 Mansoor Martinez MD Mar 13, 2020 08:44
[2020-03-13] MEDS ORDERED: Heparin1,000 units/500ml Premix(Conc:2 units/ml) IV PRN (09:30)
[2020-03-13] MEDS ORDERED: Lidocaine 1% Plain 30 ml INJ PRN (09:30)
[2020-03-13] MEDS: Phenylephrine 100 MG in D5W 240 ML IV SCH (09:45)
[2020-03-13] MEDS: Octreotide Acetate 500 MCG in Sodium Chloride 499 ML IV SCH (10:08)
[2020-03-13] MEDS: Meropenem 500 MG in NS 55 ML IVPB SCH ×2 (10:08→20:56)
[2020-03-13] MEDS: Pantoprazole 80 MG in NS 250 ML IV SCH ×2 (10:09→20:00)
--- NOTE | 2020-03-13 12:03 | Infectious Diseases Prog Note ---
"Assessment/Plan Assessment/Plan antibiotics : meropenem, inhaled colistin A 1. proteus | e.coli | acenitobacter | klebsiella pneumonia COVID 19 negative 2. + blood cultures with coag neg staph contaminated 3. renal failure 4. shock 5. GI bleeding 6. diabetes mellitus P 1. continue meropenem, inhaled colistin 2 more days 2. will follow up cultures Subjective ROS Limited/Unobtainable: Yes Allergies: Coded Allergies: No Known Allergies (Unverified , 02/23/12) Objective Last 24 Hour Vital Signs Date Time Temp Pulse Resp B/P (MAP) Pulse Ox O2 Delivery O2 Flow Rate FiO2 03/13/20 11:00 78 34 130/77 (94) 97 03/13/20 10:45 74 28 40 03/13/20 10:00 80 32 137/76 (96) 97 03/13/20 09:19 73 26 100 Mechanical Ventilator 40 74 26 03/13/20 09:00 77 26 134/80 (98) 100 03/13/20 08:00 100.0 75 26 135/86 (102) 100 03/13/20 08:00 40 03/13/20 08:00 Mechanical Ventilator 03/13/20 07:08 85 31 40 03/13/20 07:00 81 27 144/77 (99) 99 03/13/20 06:00 86 33 126/84 (98) 96 03/13/20 05:00 86 32 139/75 (96) 97 03/13/20 04:00 99.1 90 24 134/92 (106) 92 03/13/20 04:00 40 03/13/20 04:00 85 03/13/20 04:00 Mechanical Ventilator 03/13/20 03:00 86 30 151/81 (104) 99 03/13/20 02:30 72 32 40 03/13/20 02:00 88 28 151/86 (107) 100 03/13/20 01:00 79 29 144/82 (102) 100 03/13/20 00:00 69 03/13/20 00:00 40 03/13/20 00:00 99.5 91 30 153/82 (105) 100 03/13/20 00:00 Mechanical Ventilator 03/12/20 23:00 79 26 146/85 (105) 100 03/12/20 22:00 76 26 146/99 (115) 100 03/12/20 21:30 89 30 100 Mechanical Ventilator 40 84 28 40 03/12/20 21:00 87 22 153/89 (110) 100 03/12/20 20:00 83 03/12/20 20:00 99.1 80 29 144/94 (111) 100 03/12/20 20:00 40 03/12/20 20:00 Mechanical Ventilator 03/12/20 19:00 72 26 147/94 (111) 100 03/12/20 19:00 72 26 40 03/12/20 18:00 79 30 145/85 (105) 100 03/12/20 17:00 85 30 152/91 (111) 100 03/12/20 16:00 99.1 87 32 150/85 (106) 100 03/12/20 16:00 Mechanical Ventilator 03/12/20 16:00 40 03/12/20 15:56 86 03/12/20 15:14 88 30 40 03/12/20 15:00 82 29 162/86 (111) 100 03/12/20 14:00 100 30 169/92 (117) 100 03/12/20 13:00 99.3 88 30 152/94 (113) 100 03/12/20 12:26 87 Height (Feet): 5 Height (Inches): 7.00 Weight (Pounds): 129 HEENT: status post trach Respiratory/Chest: lungs clear Cardiovascular: normal rate, regular rhythm, no gallop/murmur Abdomen: soft, non tender, other - GT Extremities: other - + edema Laboratory Tests Test 03/13/20 06:00 White Blood Count 8.1 K/UL (4.8-10.8) Red Blood Count 2.77 M/UL (4.70-6.10) L Hemoglobin 8.5 G/DL (14.2-18.0) L Hematocrit 25.0 % (42.0-52.0) L Mean Corpuscular Volume 90 FL (80-99) Mean Corpuscular Hemoglobin 30.8 PG (27.0-31.0) Mean Corpuscular Hemoglobin Concent 34.1 G/DL (32.0-36.0) Red Cell Distribution Width 14.6 % (11.6-14.8) Platelet Count 120 K/UL (150-450) L Mean Platelet Volume 6.5 FL (6.5-10.1) Neutrophils (%) (Auto) 80.7 % (45.0-75.0) H Lymphocytes (%) (Auto) 12.1 % (20.0-45.0) L Monocytes (%) (Auto) 4.9 % (1.0-10.0) Eosinophils (%) (Auto) 2.1 % (0.0-3.0) Basophils (%) (Auto) 0.3 % (0.0-2.0) Sodium Level 148 MMOL/L (136-145) H Potassium Level 3.3 MMOL/L (3.5-5.1) L Chloride Level 115 MMOL/L (98-107) H Carbon Dioxide Level 24 MMOL/L (21-32) Anion Gap 9 mmol/L (5-15) Blood Urea Nitrogen 67 mg/dL (7-18) H Creatinine 2.8 MG/DL (0.55-1.30) H Estimat Glomerular Filtration Rate 22.1 mL/min (>60) Glucose Level 128 MG/DL (74-106) H Calcium Level 7.3 MG/DL (8.5-10.1) L Phosphorus Level 3.0 MG/DL (2.5-4.9) Magnesium Level 1.9 MG/DL (1.8-2.4) Current Medications Medications (Trade) Dose Ordered Sig/Lanny Route PRN Reason Start Time Stop Time Status Last Admin Dose Admin Acetaminophen (Tylenol) 650 mg Q6H PRN ORAL MILD/TEMP 03/05/20 08:30 04/04/20 08:29 03/10/20 16:26 Chlorhexidine Gluconate (Kayla-Hex 2%) 1 applic DAILY@1999 TOPIC 03/05/20 21:00 06/03/20 20:59 03/12/20 20:01 Clonidine HCl (Catapres Tab) 0.1 mg Q4H PRN ORAL For High Blood Pressure 03/12/20 08:15 06/10/20 08:14 Colistimethate Sodium (Colistin *inhalation use only*) 75 mg Q12HR@10, INH 03/09/20 22:00 03/16/20 21:59 03/13/20 09:18 Epoetin Asaf (Epoetin Asaf-EPBX(NON ESRD)) 3,000 unit SUBQ 03/10/20 21:00 06/08/20 20:59 03/10/20 20:19 Epoetin Asaf (Epoetin Asaf-EPBX(NON ESRD)) 4,000 unit FRI- SUBQ 03/10/20 21:00 06/08/20 20:59 03/10/20 20:20 Heparin Sodium/ Sodium Chloride (Heparin 1000 units/500ml Premix) 1,000 unit ONCE PRN IV PICC LINE PLACEMENT 03/13/20 09:30 03/14/20 09:29 Levetiracetam 750 mg/Sodium Chloride 117.5 ml @ 470 mls/hr Q12H IV 03/05/20 23:00 04/04/20 22:59 03/12/20 22:56 Levothyroxine Sodium (Synthroid) 125 mcg DAILY IV 03/10/20 09:00 04/09/20 08:59 03/13/20 10:08 Lidocaine HCl (Xylocaine 1% 30ml) 30 ml ONCE PRN INJ PICC LINE PLACEMENT 03/13/20 09:30 03/14/20 09:29 Lorazepam (Ativan 2mg/ml 1ml) 1 mg Q4H PRN IV For Seizures 03/07/20 06:15 03/14/20 06:14 03/11/20 16:44 Meropenem 500 mg/ Sodium Chloride 55 ml @ 110 mls/hr EVERY 12 HOURS IVPB 03/09/20 12:00 03/18/20 23:59 03/13/20 10:08 Metoclopramide HCl (Reglan) 5 mg EVERY 6 HOURS IVP 03/08/20 12:00 04/07/20 11:59 03/13/20 05:42 Pantoprazole 80 mg/Sodium Chloride 250 ml @ 25 mls/hr Q10H IV 03/05/20 12:30 04/04/20 12:29 03/13/20 10:09 Phenylephrine HCl 100 mg/Dextrose 250 ml @ 0 mls/hr Q24H IV 03/06/20 09:45 04/05/20 09:44 03/06/20 21:05 Sodium Bicarbonate 50 ml/ Dextrose 1,050 ml @ 75 mls/hr Q14H IV 03/11/20 11:00 04/10/20 10:59 03/13/20 04:08 Zinc Oxide (Zinc Oxide) 1 applic TIDPRN PRN TOPIC scrotal wound 03/11/20 12:45 06/09/20 12:44 Isaak Hair MD Mar 13, 2020 12:03"
[2020-03-13] MEDS: levETIRAcetam 750 MG in NS 110 ML IV SCH ×2 (12:08→23:04)
--- NOTE | 2020-03-13 13:27 | Cardiology Report ---
APPROVED REPORT EXAM: Two-dimensional and M-mode echocardiogram with Doppler and color Doppler. INDICATION Tachycardia M-Mode DIMENSIONS IVSd1.4 (0.7-1.1cm)Left Atrium (MM)3.1 (1.6-4.0cm) LVDd4.1 (3.5-5.6cm)Aortic Root3.4 (2.0-3.7cm) PWd0.9 (0.7-1.1cm)Aortic Cusp Exc.2.0 (1.5-2.0cm) IVSs1.8 cmEPSS0.6 (>1.0cm) LVDs2.9 (2.5-4.0cm) PWs1.5 cm <Conclusion> Study quality precludes accurate assessment of regional wall motion. Normal left ventricular chamber size, systolic function and wall motion. Left ventricular ejection fraction estimated to be 65 %. Mild left ventricular hypertrophy. No evidence of pericardial effusion. All other cardiac chamber sizes are within normal limits. Focal aortic valve sclerosis with adequate cusp excursion. Thickened mitral valve leaflets with normal excursion. Mitral annulus and aortic root calcification. Pulmonic valve not well visualized. Normal tricuspid valve structure. Subcostal views not obtainable due to G tube. A color flow and spectral Doppler study was performed and revealed: Mild aortic regurgitation. No mitral regurgitation. Mitral diastolic velocities suggest mild left ventricular diastolic dysfunction (Grade I). No tricuspid regurgitation. Trace pulmonic regurgitation present.
--- NOTE | 2020-03-13 14:15 | Nephrology Progress Note ---
Assessment/Plan Plan Acute Oliguric ARF Severe Metabolic Acidosis MOF VDRF Seizure DO Urosepsis Anemia, mostly of CKD - JJ Hypokalemia, Hypomagnesemia - correct Subjective Subjective Obtunded. Objective Objective Last 24 Hour Vital Signs Date Time Temp Pulse Resp B/P (MAP) Pulse Ox O2 Delivery O2 Flow Rate FiO2 03/13/20 14:00 75 33 130/74 (92) 98 03/13/20 13:00 78 32 135/75 (95) 100 03/13/20 12:00 100.1 80 31 130/80 (97) 99 03/13/20 12:00 40 03/13/20 12:00 Mechanical Ventilator 03/13/20 11:00 78 34 130/77 (94) 97 03/13/20 10:45 74 28 40 03/13/20 10:00 80 32 137/76 (96) 97 03/13/20 09:19 73 26 100 Mechanical Ventilator 40 74 26 03/13/20 09:00 77 26 134/80 (98) 100 03/13/20 08:00 100.0 75 26 135/86 (102) 100 03/13/20 08:00 40 03/13/20 08:00 Mechanical Ventilator 03/13/20 07:08 85 31 40 03/13/20 07:00 81 27 144/77 (99) 99 03/13/20 06:00 86 33 126/84 (98) 96 03/13/20 05:00 86 32 139/75 (96) 97 03/13/20 04:00 99.1 90 24 134/92 (106) 92 03/13/20 04:00 40 03/13/20 04:00 85 03/13/20 04:00 Mechanical Ventilator 03/13/20 03:00 86 30 151/81 (104) 99 03/13/20 02:30 72 32 40 03/13/20 02:00 88 28 151/86 (107) 100 03/13/20 01:00 79 29 144/82 (102) 100 03/13/20 00:00 69 03/13/20 00:00 40 03/13/20 00:00 99.5 91 30 153/82 (105) 100 03/13/20 00:00 Mechanical Ventilator 03/12/20 23:00 79 26 146/85 (105) 100 03/12/20 22:00 76 26 146/99 (115) 100 03/12/20 21:30 89 30 100 Mechanical Ventilator 40 84 28 40 03/12/20 21:00 87 22 153/89 (110) 100 03/12/20 20:00 83 03/12/20 20:00 99.1 80 29 144/94 (111) 100 03/12/20 20:00 40 03/12/20 20:00 Mechanical Ventilator 03/12/20 19:00 72 26 147/94 (111) 100 03/12/20 19:00 72 26 40 03/12/20 18:00 79 30 145/85 (105) 100 03/12/20 17:00 85 30 152/91 (111) 100 03/12/20 16:00 99.1 87 32 150/85 (106) 100 03/12/20 16:00 Mechanical Ventilator 03/12/20 16:00 40 03/12/20 15:56 86 03/12/20 15:14 88 30 40 03/12/20 15:00 82 29 162/86 (111) 100 Intake and Output 03/12/20 03/13/20 19:00 07:00 Intake Total 2145.833 ml 2382.5 ml Output Total 605 ml 930 ml Balance 1540.833 ml 1452.5 ml Free Water 50 ml IV Total 1835.833 ml 1972.5 ml Tube Feeding 310 ml 360 ml Output Urine Total 365 ml 930 ml Stool Total 240 ml # Bowel Movements 3 50 Laboratory Tests 03/13/20 06:00: White Blood Count 8.1, Red Blood Count 2.77L, Hemoglobin 8.5L, Hematocrit 25.0L , Mean Corpuscular Volume 90, Mean Corpuscular Hemoglobin 30.8, Mean Corpuscular Hemoglobin Concent 34.1, Red Cell Distribution Width 14.6, Platelet Count 120L, Mean Platelet Volume 6.5, Neutrophils (%) (Auto) 80.7H, Lymphocytes (%) (Auto) 12.1L, Monocytes (%) (Auto) 4.9, Eosinophils (%) (Auto) 2.1, Basophils (%) (Auto) 0.3, Sodium Level 148H, Potassium Level 3.3L, Chloride Level 115H, Carbon Dioxide Level 24, Anion Gap 9, Blood Urea Nitrogen 67H, Creatinine 2.8H, Estimat Glomerular Filtration Rate 22.1, Glucose Level 128H, Calcium Level 7.3L, Phosphorus Level 3.0, Magnesium Level 1.9 Height (Feet): 5 Height (Inches): 7.00 Weight (Pounds): 129 Objective On vent. Trach site miroslava. CV Tach. Lungs B ronchi. Abd distended. SNT. BS diminished. E contractures. +2 B edema. Neuro obtunded. Nonfocal. Ayanna Maldonado MD Mar 13, 2020 14:15
--- NOTE | 2020-03-13 16:14 | Pre-Procedure Note/Attestation ---
Pre-Procedure Note/Attestation Complete Prior to Procedure Planned Procedure: not applicable Procedure Narrative: PICC line Indications for Procedure Pre-Operative Diagnosis: need IV access Attestation consent obtained from conservator by the primary team. this was confirmed prior to the procedure. Mike Fowler M.D. Mar 13, 2020 16:14
--- NOTE | 2020-03-13 16:21 | Diagnostic Imaging Report ---
Indications: Needs IV access Technique: Procedure performed at bedside. Procedural timeout performed. Ultrasound confirms patent compressible vein. Total sterile technique, including sterile probe cover and sterile gel, sterile gloves, hand hygiene, hat, mask,, sterile gown, large sterile drape, and preparation with 2% chlorhexidine utilized. Local anesthesia with 1% lidocaine. Under real-time ultrasound guidance, puncture right brachial vein using 21-gauge needle, passage 0.018 guidewire, exchange for 4.5 [place] peel-away sheath. 4 [place] dual-lumen power PICC cut to 30 cm. It was inserted through the peel-away sheath. Peel-away sheath and guidewire removed. Catheter fixed to the skin. Both catheter ports aspirated and flushed. Patient tolerated procedure well, without immediate complication. Followup chest x-ray obtained, documents catheter tip position at the SVC. Additional findings including tracheostomy tube and bilateral infiltrates not significantly changed compared to the prior exam. There is been interval removal of the NG tube. Impression: Successful bedside placement of right arm PICC under sonographic guidance, as described above.
--- NOTE | 2020-03-13 17:03 | Surgery Progress Note ---
Surgery Progress Note Subjective Additional Comments picc line placed h/h stable pending repeat EGD Objective Last 24 Hour Vital Signs Date Time Temp Pulse Resp B/P (MAP) Pulse Ox O2 Delivery O2 Flow Rate FiO2 03/13/20 16:00 99.6 87 22 162/87 (112) 03/13/20 16:00 40 03/13/20 15:00 86 28 142/78 (99) 98 03/13/20 14:55 79 33 40 03/13/20 14:00 75 33 130/74 (92) 98 03/13/20 13:00 78 32 135/75 (95) 100 03/13/20 12:00 100.1 80 31 130/80 (97) 99 03/13/20 12:00 75 03/13/20 12:00 40 03/13/20 12:00 Mechanical Ventilator 03/13/20 11:00 78 34 130/77 (94) 97 03/13/20 10:45 74 28 40 03/13/20 10:00 80 32 137/76 (96) 97 03/13/20 09:19 73 26 100 Mechanical Ventilator 40 74 26 03/13/20 09:00 77 26 134/80 (98) 100 03/13/20 08:00 85 03/13/20 08:00 100.0 75 26 135/86 (102) 100 03/13/20 08:00 40 03/13/20 08:00 Mechanical Ventilator 03/13/20 07:08 85 31 40 03/13/20 07:00 81 27 144/77 (99) 99 03/13/20 06:00 86 33 126/84 (98) 96 03/13/20 05:00 86 32 139/75 (96) 97 03/13/20 04:00 99.1 90 24 134/92 (106) 92 03/13/20 04:00 40 03/13/20 04:00 85 03/13/20 04:00 Mechanical Ventilator 03/13/20 03:00 86 30 151/81 (104) 99 03/13/20 02:30 72 32 40 03/13/20 02:00 88 28 151/86 (107) 100 03/13/20 01:00 79 29 144/82 (102) 100 03/13/20 00:00 69 03/13/20 00:00 40 03/13/20 00:00 99.5 91 30 153/82 (105) 100 03/13/20 00:00 Mechanical Ventilator 03/12/20 23:00 79 26 146/85 (105) 100 03/12/20 22:00 76 26 146/99 (115) 100 03/12/20 21:30 89 30 100 Mechanical Ventilator 40 84 28 40 03/12/20 21:00 87 22 153/89 (110) 100 03/12/20 20:00 83 03/12/20 20:00 99.1 80 29 144/94 (111) 100 03/12/20 20:00 40 03/12/20 20:00 Mechanical Ventilator 03/12/20 19:00 72 26 147/94 (111) 100 03/12/20 19:00 72 26 40 03/12/20 18:00 79 30 145/85 (105) 100 I&O Intake and Output 03/12/20 03/13/20 19:00 07:00 Intake Total 2145.833 ml 2382.5 ml Output Total 605 ml 930 ml Balance 1540.833 ml 1452.5 ml Free Water 50 ml IV Total 1835.833 ml 1972.5 ml Tube Feeding 310 ml 360 ml Output Urine Total 365 ml 930 ml Stool Total 240 ml # Bowel Movements 3 50 Dressing: other Wound: other Cardiovascular: RSR Respiratory: decreased breath sounds Abdomen: soft, non-tender, present bowel sounds Extremities: no tenderness, no cyanosis Laboratory Tests Test 03/13/20 06:00 White Blood Count 8.1 K/UL (4.8-10.8) Red Blood Count 2.77 M/UL (4.70-6.10) L Hemoglobin 8.5 G/DL (14.2-18.0) L Hematocrit 25.0 % (42.0-52.0) L Mean Corpuscular Volume 90 FL (80-99) Mean Corpuscular Hemoglobin 30.8 PG (27.0-31.0) Mean Corpuscular Hemoglobin Concent 34.1 G/DL (32.0-36.0) Red Cell Distribution Width 14.6 % (11.6-14.8) Platelet Count 120 K/UL (150-450) L Mean Platelet Volume 6.5 FL (6.5-10.1) Neutrophils (%) (Auto) 80.7 % (45.0-75.0) H Lymphocytes (%) (Auto) 12.1 % (20.0-45.0) L Monocytes (%) (Auto) 4.9 % (1.0-10.0) Eosinophils (%) (Auto) 2.1 % (0.0-3.0) Basophils (%) (Auto) 0.3 % (0.0-2.0) Sodium Level 148 MMOL/L (136-145) H Potassium Level 3.3 MMOL/L (3.5-5.1) L Chloride Level 115 MMOL/L (98-107) H Carbon Dioxide Level 24 MMOL/L (21-32) Anion Gap 9 mmol/L (5-15) Blood Urea Nitrogen 67 mg/dL (7-18) H Creatinine 2.8 MG/DL (0.55-1.30) H Estimat Glomerular Filtration Rate 22.1 mL/min (>60) Glucose Level 128 MG/DL (74-106) H Calcium Level 7.3 MG/DL (8.5-10.1) L Phosphorus Level 3.0 MG/DL (2.5-4.9) Magnesium Level 1.9 MG/DL (1.8-2.4) Plan Problems: (1) Respiratory failure (2) GIB (gastrointestinal bleeding) Assessment & Plan: 79-year-old male with leukocytosis, anemia, NG tube inserted and bright blood identified. Plan for urgent EGD today. Protonix IV N.p.o. IV fluid resuscitation PRBC transfusion trend labs Care plan discussed with GI will await EGD findings Thank you for let me participate in patient's care will follow with recommendations EGD findings noted discussed with GI NG tube placed Continuous gastric irrigation and suction initiated plan for repeat scope soon repeat scope noted unchanged cannot remove clot CT reviewed surgery too high risk no active bleeding trend h/h start tf plan to repeat scope next week discussed with GI hold on surgery There is a rectal tube in place. The balloon is likely inflated within the anal canal rather than the distal rectum. There is marked rectal wall thickening and considerable edema of the perirectal fat. Prominent gas-filled right upper quadrant bowel seen on recent plain radiographs is demonstrated to be the cecum. Although the sacrum appears quite wide in transverse dimension (approximately 11.5 cm) it is not particularly distended in the AP plane, measuring 4.9 cm AP. The anatomy of the ascending colon and hepatic flexure is not well-defined, and it is unclear whether this represents a possible cecal bascule versus an unusually positioned but otherwise normal cecum. No definite wall thickening is evident. The terminal ileum is normal in caliber or collapsed. The remainder of the small bowel appears mildly dilated, gas and fluid-filled, and the transition point appears to be gradual. No definite small bowel wall thickening. There is a gastrostomy tube which appears to be well positioned at the gastric antrum body junction.. The stomach is distended. The gastric antrum and proximal duodenum appears somewhat thick walled. Ingested contrast has traversed a portion of the proximal small bowel. There is considerable material dependently within the stomach, displacing the ingested contrast. Surgical clips are seen in the mesenteric root inferior to the pancreatic tail and anterior to the proximal jejunum There is moderate free intraperitoneal fluid. No free intraperitoneal gas is demonstrated. Lack of IV contrast limits assessment of the solid organs. The liver, gallbladder, bile ducts, pancreas, spleen, adrenals, right kidney are unremarkable. Left kidney demonstrates a lower pole cyst. The bladder is mildly distended, and minimally thick-walled. There are bilateral right greater than left pleural effusions. There is bilateral basilar pulmonary parenchymal consolidation and/or edema consolidation. The heart is upper limits normal in size. There is extensive edema of the subcutaneous fat, less extensive edema of the mesenteric and retroperitoneal fat. The bones demonstrate a compression fracture deformity of the L1 vertebral body. There are degenerative changes at the lumbosacral junction. Impression: Poorly delineated cecal and ascending colon anatomy. Dilated bowel loop in the right upper quadrant seen on recent plain radiograph is demonstrated to be the cecum. It is dilated, although less severely than is suggested by the plain radiograph. The tip of the cecum is pointed cephalad. There is also dilatation of most of the small bowel, which is dilated, gas and fluid-filled, but the terminal ileum is nondilated. There is not a definite abrupt transition point. Findings may be purely on the basis of ileus with variant cecal anatomy and unusual hepato- colonic interposition, but the possibility of a cecal bascule or internal hernia causing ascending colon and/or distal small bowel obstruction should also be considered. Rectal tube balloon is dilated within the anal canal. Recommend deflation and repositioning Wall thickening of the distal sigmoid and rectum, with edema of the perirectal/perisigmoid fat, concerning for colitis. Distended stomach. Given stated clinical history of GI bleeding, material within the gastric fundus displacing the contrast likely represents blood clots, but any of this could also represent an endophytic mass lesion. There is no rand gastric fundal wall thickening. There is some wall thickening of the gastric antrum and duodenum, although this could in part be an artifact of lack of distention. Gastrostomy is in good position Moderate ascites Bilateral pleural effusions. Bilateral parenchymal consolidation, may reflect pulmonary edema versus parenchymal infiltrates Other evidence of anasarca, with diffuse edema of the subcutaneous fat, less severe edema of the abdominal fat L1 vertebral body compression fracture, age-indeterminate Other findings as noted, including degenerative spondylosis, left lower pole renal cyst. (3) Aspiration pneumonia (4) Sepsis (5) ARF (acute renal failure) (6) HCAP (healthcare-associated pneumonia) (7) Dehydration (8) Hypokalemia (9) Hyperkalemia (10) Anemia (11) Decubitus skin ulcer Assessment & Plan: Pt presented on admission with gross contractures, Multiple Pressure Injuries, Tracheostomy. Skin Assessed under tracheal collar and no evidence of skin breakdown noted. Tear noted to urinary meatus- no exudate noted. Scrotum is erythematous with scattered satellite lesions. Large ulcer noted to R scrotal sac (L)4cm x (W)4.6cm. Base of wound is erythematous ,moist with Biofilm. Sacral DTPI with clusters of small islands of slough with surrounding maroon and indurated areas (L)8cm x (W)12cm.Mild Odor noted. Partial thickness Pressure Injury Upper/outer R buttocks(L)1.8cm x (W)1.3cm. Base of wound is moist and viable. Edges adherent to base of wound. Surrounding non-blanching erythema with scattered areas of shearing noted. Partial thickness Pressure Inferior lower R buttocks.(L)0.8cm x (W)1.2cm. Base of wound is moist and viable. Edges adherent to base of wound. Surrounding non- blanching erythema with scattered shearing noted extending into R ischial tuberosity. Clusters of small hyperpigmentation noted to L trochanteric and L ischial tuberosity. R Heel is fluctuant with scattered dry eschar and surrounding Non-Blanchable erythema.(L)6.5cm x (W)8cm. DTPI distal/lateral R foot(L)3cm x (W)3cm. Base of wound is maroon and fluctuant. dry eschar noted to tip of R 1st metatarsal with surrounding non-blanchable erythema extending dorsally and laterally of metatarsal(L)5cm x (W)1.3cm Non-Blanchable erythema that is fluctuant at base noted to dorso/lateral L 5th metatarsal(L)0.6cm x (W)0.3cm. L Heel is boggy with non-blanchable erythema laterally. Hyperpigmentation from previous wound noted at L heel. Tx.Plan: Cleanse Sacral wound with Saline. Apply TheraHoney to slough. Apply Moisture Barrier Paste periwound. Cover with Optifoam drsg. Change daily and prn. Apply Moisture Barrier Paste to Wounds R upper and lower R Buttocks. Cover each wound with Optifoam drsg. Change every 3 days and prn. Apply Zinc Oxide Paste to Scrotal Wounds TID and prn. Apply Betadine to wounds R heel and R foot . Cover with ABD Pads and wrap with Kerlix every 3 days and prn. Apply Betadine to L foot. Cover with ABD Pads and wrap with Kerlix every 3 days and prn. Cover Bony Prominences as needed with Optifoam drsgs. Reposition at least every 2hours or as tolerated. Off-load heels with pillow. 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
[2020-03-13] MEDS ORDERED: NS 500ML ONE (18:45)
[2020-03-13] MEDS ORDERED: Tubing IV Secondary IV ONE (18:45)
[2020-03-13] MEDS ORDERED: Tubing Blood Filter IV ONE (18:45)
[2020-03-13] MEDS: Dyna-Hex 2% Top Sol 2oz TOPIC SCH (20:00)
--- NOTE | 2020-03-13 20:37 | General Progress Note ---
Assessment/Plan Status: stable, unchanged Assessment/Plan: Assessment - UGI Bleed - large fundus clot - failed EGD x 2 - more stable now - aberrant cecal position on CT - malnutrition / low albumin - resp failure / trach - dysphagia / PEG - multiple contractures - OBS - Anemia - Azotemia - improving sepsis Recommendations - Continue tube feeds - PPI - follow labs - DPOA to decide on level of care - will plan on EGD over next few day Subjective Allergies: Coded Allergies: No Known Allergies (Unverified , 02/23/12) Subjective above noted doing better today tolerating TF H&H now stable Objective Last 24 Hour Vital Signs Date Time Temp Pulse Resp B/P (MAP) Pulse Ox O2 Delivery O2 Flow Rate FiO2 03/13/20 20:00 84 33 30 03/13/20 19:00 80 27 146/75 (98) 100 03/13/20 18:00 100 29 160/95 (116) 100 03/13/20 17:00 81 28 150/95 (113) 100 03/13/20 16:00 Mechanical Ventilator 03/13/20 16:00 82 03/13/20 16:00 99.6 87 22 162/87 (112) 03/13/20 16:00 40 03/13/20 15:00 86 28 142/78 (99) 98 03/13/20 14:55 79 33 40 03/13/20 14:00 75 33 130/74 (92) 98 03/13/20 13:00 78 32 135/75 (95) 100 03/13/20 12:00 100.1 80 31 130/80 (97) 99 03/13/20 12:00 75 03/13/20 12:00 40 03/13/20 12:00 Mechanical Ventilator 03/13/20 11:00 78 34 130/77 (94) 97 03/13/20 10:45 74 28 40 03/13/20 10:00 80 32 137/76 (96) 97 03/13/20 09:45 77 134/80 03/13/20 09:19 73 26 100 Mechanical Ventilator 40 74 26 03/13/20 09:00 77 26 134/80 (98) 100 03/13/20 08:00 85 03/13/20 08:00 100.0 75 26 135/86 (102) 100 03/13/20 08:00 40 03/13/20 08:00 Mechanical Ventilator 03/13/20 07:08 85 31 40 03/13/20 07:00 81 27 144/77 (99) 99 03/13/20 06:00 86 33 126/84 (98) 96 03/13/20 05:00 86 32 139/75 (96) 97 03/13/20 04:00 99.1 90 24 134/92 (106) 92 03/13/20 04:00 40 03/13/20 04:00 85 03/13/20 04:00 Mechanical Ventilator 03/13/20 03:00 86 30 151/81 (104) 99 03/13/20 02:30 72 32 40 03/13/20 02:00 88 28 151/86 (107) 100 03/13/20 01:00 79 29 144/82 (102) 100 03/13/20 00:00 69 03/13/20 00:00 40 03/13/20 00:00 99.5 91 30 153/82 (105) 100 03/13/20 00:00 Mechanical Ventilator 03/12/20 23:00 79 26 146/85 (105) 100 03/12/20 22:00 76 26 146/99 (115) 100 03/12/20 21:30 89 30 100 Mechanical Ventilator 40 84 28 40 03/12/20 21:00 87 22 153/89 (110) 100 Intake and Output 03/12/20 03/13/20 19:00 07:00 Intake Total 2145.833 ml 2382.5 ml Output Total 605 ml 930 ml Balance 1540.833 ml 1452.5 ml Free Water 50 ml IV Total 1835.833 ml 1972.5 ml Tube Feeding 310 ml 360 ml Output Urine Total 365 ml 930 ml Stool Total 240 ml # Bowel Movements 3 50 Laboratory Tests 03/13/20 06:00: White Blood Count 8.1, Red Blood Count 2.77L, Hemoglobin 8.5L, Hematocrit 25.0L , Mean Corpuscular Volume 90, Mean Corpuscular Hemoglobin 30.8, Mean Corpuscular Hemoglobin Concent 34.1, Red Cell Distribution Width 14.6, Platelet Count 120L, Mean Platelet Volume 6.5, Neutrophils (%) (Auto) 80.7H, Lymphocytes (%) (Auto) 12.1L, Monocytes (%) (Auto) 4.9, Eosinophils (%) (Auto) 2.1, Basophils (%) (Auto) 0.3, Sodium Level 148H, Potassium Level 3.3L, Chloride Level 115H, Carbon Dioxide Level 24, Anion Gap 9, Blood Urea Nitrogen 67H, Creatinine 2.8H, Estimat Glomerular Filtration Rate 22.1, Glucose Level 128H, Calcium Level 7.3L, Phosphorus Level 3.0, Magnesium Level 1.9 Height (Feet): 5 Height (Inches): 7.00 Weight (Pounds): 129 Objective Debilitated unresponsive man NCAT (+) trach coarse BS RR abd flat , (+) GT (+) contractures (+) skin breakdown Clive Kuo MD Mar 13, 2020 20:37
[2020-03-13] MEDS: Epoetin Alfa-EPBX (NON ESRD) 3000 units/ml vial SUBQ SCH (20:55)
[2020-03-13] MEDS: Epoetin Alfa-EPBX (NON ESRD)4000 units/ml vial SUBQ SCH (20:55)
[2020-03-14] VITALS (25 sets, daily range): BP systolic 138–153; BP diastolic 70–87
--- NOTE | 2020-03-14 00:57 | Cardiology Progress Note ---
Subjective DATE OF SERVICE: Mar 13, 2020 On vent via trach Still with small amount of GI blood loss, but only small drop in hemoglobin today. On IV fluids BP trend stabilized Monitor: sinus/sinus tachycardia Objective Last 24 Hour Vital Signs Date Time Temp Pulse Resp B/P (MAP) Pulse Ox O2 Delivery O2 Flow Rate FiO2 03/13/20 23:30 75 27 100 Mechanical Ventilator 30 89 28 30 03/13/20 23:00 75 27 141/68 (92) 98 03/13/20 22:00 78 27 138/72 (94) 97 03/13/20 21:00 82 29 145/74 (97) 98 03/13/20 20:00 40 03/13/20 20:00 99.9 76 26 145/91 (109) 100 03/13/20 20:00 84 33 30 03/13/20 20:00 Mechanical Ventilator 03/13/20 19:00 80 27 146/75 (98) 100 03/13/20 18:00 100 29 160/95 (116) 100 03/13/20 17:00 81 28 150/95 (113) 100 03/13/20 16:00 Mechanical Ventilator 03/13/20 16:00 82 03/13/20 16:00 99.6 87 22 162/87 (112) 03/13/20 16:00 40 03/13/20 15:00 86 28 142/78 (99) 98 03/13/20 14:55 79 33 40 03/13/20 14:00 75 33 130/74 (92) 98 03/13/20 13:00 78 32 135/75 (95) 100 03/13/20 12:00 100.1 80 31 130/80 (97) 99 03/13/20 12:00 75 03/13/20 12:00 40 03/13/20 12:00 Mechanical Ventilator 03/13/20 11:00 78 34 130/77 (94) 97 03/13/20 10:45 74 28 40 03/13/20 10:00 80 32 137/76 (96) 97 03/13/20 09:45 77 134/80 03/13/20 09:19 73 26 100 Mechanical Ventilator 40 74 26 03/13/20 09:00 77 26 134/80 (98) 100 03/13/20 08:00 85 03/13/20 08:00 100.0 75 26 135/86 (102) 100 03/13/20 08:00 40 03/13/20 08:00 Mechanical Ventilator 03/13/20 07:08 85 31 40 03/13/20 07:00 81 27 144/77 (99) 99 03/13/20 06:00 86 33 126/84 (98) 96 03/13/20 05:00 86 32 139/75 (96) 97 03/13/20 04:00 99.1 90 24 134/92 (106) 92 03/13/20 04:00 40 03/13/20 04:00 85 03/13/20 04:00 Mechanical Ventilator 03/13/20 03:00 86 30 151/81 (104) 99 03/13/20 02:30 72 32 40 03/13/20 02:00 88 28 151/86 (107) 100 03/13/20 01:00 79 29 144/82 (102) 100 ROS: unchanged from my dictation of 03/05/20 HEENT: Mechanically Ventilated, Thick Trach secretions RHYTHM: ST LUNGS: bilateral rhonchi CARDIAC: regular rhythm, normal S1 and S2, tachycardia ABDOMEN: normal bowel sounds, non tender, soft, no organomegaly, decreased bowel sounds, slightly distended, G-Tube intact EXTREMITIES: no calf tenderness, pitting edema - dependent Laboratory Tests Test 03/13/20 06:00 White Blood Count 8.1 K/UL (4.8-10.8) Red Blood Count 2.77 M/UL (4.70-6.10) L Hemoglobin 8.5 G/DL (14.2-18.0) L Hematocrit 25.0 % (42.0-52.0) L Mean Corpuscular Volume 90 FL (80-99) Mean Corpuscular Hemoglobin 30.8 PG (27.0-31.0) Mean Corpuscular Hemoglobin Concent 34.1 G/DL (32.0-36.0) Red Cell Distribution Width 14.6 % (11.6-14.8) Platelet Count 120 K/UL (150-450) L Mean Platelet Volume 6.5 FL (6.5-10.1) Neutrophils (%) (Auto) 80.7 % (45.0-75.0) H Lymphocytes (%) (Auto) 12.1 % (20.0-45.0) L Monocytes (%) (Auto) 4.9 % (1.0-10.0) Eosinophils (%) (Auto) 2.1 % (0.0-3.0) Basophils (%) (Auto) 0.3 % (0.0-2.0) Sodium Level 148 MMOL/L (136-145) H Potassium Level 3.3 MMOL/L (3.5-5.1) L Chloride Level 115 MMOL/L (98-107) H Carbon Dioxide Level 24 MMOL/L (21-32) Anion Gap 9 mmol/L (5-15) Blood Urea Nitrogen 67 mg/dL (7-18) H Creatinine 2.8 MG/DL (0.55-1.30) H Estimat Glomerular Filtration Rate 22.1 mL/min (>60) Glucose Level 128 MG/DL (74-106) H Calcium Level 7.3 MG/DL (8.5-10.1) L Phosphorus Level 3.0 MG/DL (2.5-4.9) Magnesium Level 1.9 MG/DL (1.8-2.4) Assessment/Plan Assessment/Plan Sepsis with shock recovered Respiratory Failure Lactic acidosis resolved Sinus tachycardia/PAFib Acute renal failure Aspiration PNA Leukocytosis Anemia GI Bleeding Dysphagia with GTube Vent support Antimicrobials IVF with bicarb DVT prophylaxis Continue to transfuse PRBC's for hemoglobin below 7 gm/dl. AntiHTN rx prn for now; may need to advance soon. Franko Pineda MD Mar 14, 2020 00:57
[2020-03-14] MEDS: Metoclopramide 10mg/2ml Inj IVP SCH ×5 (00:58→23:17)
[2020-03-14 04:22] LABS: HEMATOCRIT 23.2 % (42.0-52.0); HEMOGLOBIN 7.7 G/DL (14.2-18.0); MEAN CORPUSCULAR VOLUME 90 FL (80-99); PLATELET COUNT 122 K/UL (150-450); RED BLOOD COUNT 2.58 M/UL (4.70-6.10); RED CELL DISTRIBUTION WIDTH 14.1 % (11.6-14.8); WHITE BLOOD COUNT 6.5 K/UL (4.8-10.8)
[2020-03-14 04:55] LABS: ALBUMIN/GLOBULIN RATIO 0.2 (1.0-2.7); BILIRUBIN,TOTAL 0.2 MG/DL (0.2-1.0); CALCIUM 7.3 MG/DL (8.5-10.1); CREATININE 2.7 MG/DL (0.55-1.30); POTASSIUM 2.9 MMOL/L (3.5-5.1)
[2020-03-14] MEDS: Pantoprazole 80 MG in NS 250 ML IV SCH ×2 (06:44→16:01)
[2020-03-14] MEDS: Sodium Bicarbonate 50 ML in D5W 1000ml 1,000 ML IV SCH ×2 (09:00→22:26)
[2020-03-14] MEDS: Meropenem 500 MG in NS 55 ML IVPB SCH ×2 (09:00→22:22)
--- NOTE | 2020-03-14 09:31 | General Progress Note ---
Assessment/Plan Problem List: (1) GIB (gastrointestinal bleeding) ICD Codes: K92.2 - Gastrointestinal hemorrhage, unspecified SNOMED: 89748840 (2) Sepsis ICD Codes: A41.9 - Sepsis, unspecified organism SNOMED: 53001723 Qualifiers: Qualified Codes: A41.9 - Sepsis, unspecified organism; R65.20 - Severe sepsis without septic shock; N17.9 - Acute kidney failure, unspecified (3) Respiratory failure ICD Codes: J96.90 - Respiratory failure, unspecified, unspecified whether with hypoxia or hypercapnia SNOMED: 431508741 Qualifiers: Qualified Codes: J96.01 - Acute respiratory failure with hypoxia (4) Aspiration pneumonia ICD Codes: J69.0 - Pneumonitis due to inhalation of food and vomit SNOMED: 253620517 Qualifiers: Qualified Codes: O74.0 - Aspiration pneumonitis due to anesthesia during labor and delivery (5) HCAP (healthcare-associated pneumonia) ICD Codes: J18.9 - Pneumonia, unspecified organism SNOMED: 299091233, 136736268 (6) ARF (acute renal failure) ICD Codes: N17.9 - Acute kidney failure, unspecified SNOMED: 84825418, 659398397 Qualifiers: Qualified Codes: N17.9 - Acute kidney failure, unspecified Status: stable, unchanged Assessment/Plan: follow up labs transfuse as needed IVF per renal protonix and octreotide drips vent support resp rx thyroid replacement monitor sz kera iv bp rx egd later today? full code per RP Subjective ROS Limited/Unobtainable: Yes Constitutional: Reports: malaise, weakness HEENT: Reports: no symptoms Cardiovascular: Reports: edema Respiratory: Reports: cough, shortness of breath Gastrointestinal/Abdominal: Reports: black stools, tarry stools, blood in stool , difficulty swallowing Genitourinary: Reports: no symptoms Neurologic/Psychiatric: Reports: pre-existing deficit, seizure Endocrine: Reports: no symptoms Hematologic/Lymphatic: Reports: anemia Allergies: Coded Allergies: No Known Allergies (Unverified , 02/23/12) All Systems: reviewed and negative except above Subjective no events. no real change. still with dark blood output from rectal tube. hgb down to 7.7 npo for possible EGD. labs noted. remains on the vent. poorly responsive at baseline Objective Last 24 Hour Vital Signs Date Time Temp Pulse Resp B/P (MAP) Pulse Ox O2 Delivery O2 Flow Rate FiO2 03/14/20 09:00 73 26 141/73 (95) 100 03/14/20 08:00 Mechanical Ventilator 03/14/20 08:00 98.4 79 28 151/75 (100) 100 03/14/20 08:00 40 03/14/20 07:47 78 03/14/20 07:00 72 26 144/70 (94) 100 03/14/20 07:00 77 26 30 03/14/20 06:00 77 26 146/75 (98) 99 03/14/20 05:00 75 19 151/78 (102) 98 03/14/20 04:00 98.7 76 26 143/72 (95) 99 03/14/20 04:00 Mechanical Ventilator 03/14/20 04:00 40 03/14/20 04:00 93 03/14/20 03:28 81 26 30 03/14/20 03:00 81 29 150/77 (101) 100 03/14/20 02:00 77 26 148/75 (99) 97 03/14/20 01:00 73 26 139/71 (93) 97 03/14/20 00:00 80 03/14/20 00:00 99.6 82 30 145/73 (97) 97 03/14/20 00:00 Mechanical Ventilator 03/14/20 00:00 40 03/13/20 23:30 75 27 100 Mechanical Ventilator 30 89 28 30 03/13/20 23:00 75 27 141/68 (92) 98 03/13/20 22:00 78 27 138/72 (94) 97 03/13/20 21:00 82 29 145/74 (97) 98 03/13/20 20:00 40 03/13/20 20:00 79 03/13/20 20:00 99.9 76 26 145/91 (109) 100 03/13/20 20:00 84 33 30 03/13/20 20:00 Mechanical Ventilator 03/13/20 19:00 80 27 146/75 (98) 100 03/13/20 18:00 100 29 160/95 (116) 100 03/13/20 17:00 81 28 150/95 (113) 100 03/13/20 16:00 Mechanical Ventilator 03/13/20 16:00 82 03/13/20 16:00 99.6 87 22 162/87 (112) 03/13/20 16:00 40 03/13/20 15:00 86 28 142/78 (99) 98 03/13/20 14:55 79 33 40 03/13/20 14:00 75 33 130/74 (92) 98 03/13/20 13:00 78 32 135/75 (95) 100 03/13/20 12:00 100.1 80 31 130/80 (97) 99 03/13/20 12:00 75 03/13/20 12:00 40 03/13/20 12:00 Mechanical Ventilator 03/13/20 11:00 78 34 130/77 (94) 97 03/13/20 10:45 74 28 40 03/13/20 10:00 80 32 137/76 (96) 97 03/13/20 09:45 77 134/80 Intake and Output 03/13/20 03/14/20 19:00 07:00 Intake Total 1965.5 ml 1492.5 ml Output Total 1035 ml 875 ml Balance 930.5 ml 617.5 ml IV Total 1565.5 ml 1372.5 ml Tube Feeding 360 ml 120 ml Other 40 ml Output Urine Total 1035 ml 875 ml # Bowel Movements 100 151 Laboratory Tests 03/14/20 04:00: White Blood Count 6.5, Red Blood Count 2.58L, Hemoglobin 7.7L, Hematocrit 23.2L , Mean Corpuscular Volume 90, Mean Corpuscular Hemoglobin 30.0, Mean Corpuscular Hemoglobin Concent 33.5, Red Cell Distribution Width 14.1, Platelet Count 122L, Mean Platelet Volume 6.1L, Neutrophils (%) (Auto) , Lymphocytes (%) (Auto) , Monocytes (%) (Auto) , Eosinophils (%) (Auto) , Basophils (%) (Auto) , Sodium Level 147H, Potassium Level 2.9L, Chloride Level 113H, Carbon Dioxide Level 26, Anion Gap 8, Blood Urea Nitrogen 63H, Creatinine 2.7H, Estimat Glomerular Filtration Rate 23.0, Glucose Level 113H, Calcium Level 7.3L, Total Bilirubin 0.2, Aspartate Amino Transf (AST/SGOT) 28, Alanine Aminotransferase ( ALT/SGPT) 18, Alkaline Phosphatase 79, Total Protein 5.3L, Albumin 1.0L, Globulin 4.3, Albumin/Globulin Ratio 0.2L Height (Feet): 5 Height (Inches): 7.00 Weight (Pounds): 149 Objective General Appearance: WD/WN, cachetic, thin EENT: normal ENT inspection Neck: non-tender, normal alignment, supple Cardiovascular: normal rate, regular rhythm Respiratory/Chest: chest wall non-tender, lungs clear, normal breath sounds, no respiratory distress, no accessory muscle use Abdomen: normal bowel sounds, non tender, soft, no organomegaly, no mass Edema: no edema noted Arm (L), no edema noted Arm (R) Neurologic: disoriented, unresponsive, aphasia Skin: normal pigmentation Lymphatic: normal anterior cervical (L), normal anterior cervical (R) Jimi Tellez MD Mar 14, 2020 09:31
[2020-03-14] MEDS: Phenylephrine 100 MG in D5W 240 ML IV SCH (09:45)
[2020-03-14] MEDS: Colistin for inhalation INH SCH ×2 (10:40→23:06)
[2020-03-14] MEDS ORDERED: Potassium Chl 10mEq/100ml 110 ML IV ONE (11:00)
--- NOTE | 2020-03-14 11:16 | Infectious Diseases Prog Note ---
"Assessment/Plan Assessment/Plan antibiotics : meropenem, inhaled colistin A 1. proteus | e.coli | acenitobacter | klebsiella pneumonia COVID 19 negative 2. + blood cultures with coag neg staph contaminated 3. renal failure 4. shock 5. GI bleeding 6. diabetes mellitus P 1. continue meropenem, inhaled colistin 1 more day 2. will follow up cultures Subjective ROS Limited/Unobtainable: Yes Allergies: Coded Allergies: No Known Allergies (Unverified , 02/23/12) Objective Last 24 Hour Vital Signs Date Time Temp Pulse Resp B/P (MAP) Pulse Ox O2 Delivery O2 Flow Rate FiO2 03/14/20 10:55 71 26 100 Mechanical Ventilator 30 72 26 30 03/14/20 10:00 76 14 147/82 (103) 100 03/14/20 09:45 73 141/73 03/14/20 09:00 73 26 141/73 (95) 100 03/14/20 08:00 Mechanical Ventilator 03/14/20 08:00 98.4 79 28 151/75 (100) 100 03/14/20 08:00 40 03/14/20 07:47 78 03/14/20 07:00 72 26 144/70 (94) 100 03/14/20 07:00 77 26 30 03/14/20 06:00 77 26 146/75 (98) 99 03/14/20 05:00 75 19 151/78 (102) 98 03/14/20 04:00 98.7 76 26 143/72 (95) 99 03/14/20 04:00 Mechanical Ventilator 03/14/20 04:00 40 03/14/20 04:00 93 03/14/20 03:28 81 26 30 03/14/20 03:00 81 29 150/77 (101) 100 03/14/20 02:00 77 26 148/75 (99) 97 03/14/20 01:00 73 26 139/71 (93) 97 03/14/20 00:00 80 03/14/20 00:00 99.6 82 30 145/73 (97) 97 03/14/20 00:00 Mechanical Ventilator 03/14/20 00:00 40 03/13/20 23:30 75 27 100 Mechanical Ventilator 30 89 28 30 03/13/20 23:00 75 27 141/68 (92) 98 03/13/20 22:00 78 27 138/72 (94) 97 03/13/20 21:00 82 29 145/74 (97) 98 03/13/20 20:00 40 03/13/20 20:00 79 03/13/20 20:00 99.9 76 26 145/91 (109) 100 03/13/20 20:00 84 33 30 03/13/20 20:00 Mechanical Ventilator 03/13/20 19:00 80 27 146/75 (98) 100 03/13/20 18:00 100 29 160/95 (116) 100 03/13/20 17:00 81 28 150/95 (113) 100 03/13/20 16:00 Mechanical Ventilator 03/13/20 16:00 82 03/13/20 16:00 99.6 87 22 162/87 (112) 03/13/20 16:00 40 03/13/20 15:00 86 28 142/78 (99) 98 03/13/20 14:55 79 33 40 03/13/20 14:00 75 33 130/74 (92) 98 03/13/20 13:00 78 32 135/75 (95) 100 03/13/20 12:00 100.1 80 31 130/80 (97) 99 03/13/20 12:00 75 03/13/20 12:00 40 03/13/20 12:00 Mechanical Ventilator Height (Feet): 5 Height (Inches): 7.00 Weight (Pounds): 149 HEENT: status post trach Respiratory/Chest: lungs clear Cardiovascular: normal rate, regular rhythm, no gallop/murmur Abdomen: soft, non tender, other - GT Extremities: no edema Laboratory Tests Test 03/14/20 04:00 White Blood Count 6.5 K/UL (4.8-10.8) Red Blood Count 2.58 M/UL (4.70-6.10) L Hemoglobin 7.7 G/DL (14.2-18.0) L Hematocrit 23.2 % (42.0-52.0) L Mean Corpuscular Volume 90 FL (80-99) Mean Corpuscular Hemoglobin 30.0 PG (27.0-31.0) Mean Corpuscular Hemoglobin Concent 33.5 G/DL (32.0-36.0) Red Cell Distribution Width 14.1 % (11.6-14.8) Platelet Count 122 K/UL (150-450) L Mean Platelet Volume 6.1 FL (6.5-10.1) L Neutrophils (%) (Auto) % (45.0-75.0) Lymphocytes (%) (Auto) % (20.0-45.0) Monocytes (%) (Auto) % (1.0-10.0) Eosinophils (%) (Auto) % (0.0-3.0) Basophils (%) (Auto) % (0.0-2.0) Sodium Level 147 MMOL/L (136-145) H Potassium Level 2.9 MMOL/L (3.5-5.1) L Chloride Level 113 MMOL/L (98-107) H Carbon Dioxide Level 26 MMOL/L (21-32) Anion Gap 8 mmol/L (5-15) Blood Urea Nitrogen 63 mg/dL (7-18) H Creatinine 2.7 MG/DL (0.55-1.30) H Estimat Glomerular Filtration Rate 23.0 mL/min (>60) Glucose Level 113 MG/DL (74-106) H Calcium Level 7.3 MG/DL (8.5-10.1) L Total Bilirubin 0.2 MG/DL (0.2-1.0) Aspartate Amino Transf (AST/SGOT) 28 U/L (15-37) Alanine Aminotransferase (ALT/SGPT) 18 U/L (12-78) Alkaline Phosphatase 79 U/L (46-116) Total Protein 5.3 G/DL (6.4-8.2) L Albumin 1.0 G/DL (3.4-5.0) L Globulin 4.3 g/dL Albumin/Globulin Ratio 0.2 (1.0-2.7) L Current Medications Medications (Trade) Dose Ordered Sig/Lanny Route PRN Reason Start Time Stop Time Status Last Admin Dose Admin Acetaminophen (Tylenol) 650 mg Q6H PRN ORAL MILD/TEMP 03/05/20 08:30 04/04/20 08:29 03/10/20 16:26 Chlorhexidine Gluconate (Kayla-Hex 2%) 1 applic DAILY@1999 TOPIC 03/05/20 21:00 06/03/20 20:59 03/13/20 20:00 Clonidine HCl (Catapres Tab) 0.1 mg Q4H PRN ORAL For High Blood Pressure 03/12/20 08:15 06/10/20 08:14 Colistimethate Sodium (Colistin *inhalation use only*) 75 mg Q12HR@10,22 INH 03/09/20 22:00 03/16/20 21:59 03/14/20 10:40 Epoetin Asaf (Epoetin Asaf-EPBX(NON ESRD)) 3,000 unit SUBQ 03/10/20 21:00 06/08/20 20:59 03/13/20 20:55 Epoetin Asaf (Epoetin Asaf-EPBX(NON ESRD)) 4,000 unit SUBQ 03/10/20 21:00 06/08/20 20:59 03/13/20 20:55 Levetiracetam 750 mg/Sodium Chloride 117.5 ml @ 470 mls/hr Q12H IV 03/05/20 23:00 04/04/20 22:59 03/13/20 23:04 Levothyroxine Sodium (Synthroid) 125 mcg DAILY IV 03/10/20 09:00 04/09/20 08:59 03/14/20 09:24 Meropenem 500 mg/ Sodium Chloride 55 ml @ 110 mls/hr EVERY 12 HOURS IVPB 03/09/20 12:00 03/18/20 23:59 03/14/20 09:00 Metoclopramide HCl (Reglan) 5 mg EVERY 6 HOURS IVP 03/08/20 12:00 04/07/20 11:59 03/14/20 05:02 Pantoprazole 80 mg/Sodium Chloride 250 ml @ 25 mls/hr Q10H IV 03/05/20 12:30 04/04/20 12:29 03/14/20 06:44 Phenylephrine HCl 100 mg/Dextrose 250 ml @ 0 mls/hr Q24H IV 03/06/20 09:45 04/05/20 09:44 03/06/20 21:05 Potassium Chloride 110 ml @ 110 mls/hr ONCE ONCE IV 03/14/20 11:00 03/14/20 11:59 03/14/20 10:04 Sodium Bicarbonate 50 ml/ Dextrose 1,050 ml @ 75 mls/hr Q14H IV 03/11/20 11:00 04/10/20 10:59 03/14/20 09:00 Zinc Oxide (Zinc Oxide) 1 applic TIDPRN PRN TOPIC scrotal wound 03/11/20 12:45 06/09/20 12:44 Isaak aHir MD Mar 14, 2020 11:16"
[2020-03-14] MEDS: levETIRAcetam 750 MG in NS 110 ML IV SCH ×2 (11:30→23:15)
--- NOTE | 2020-03-14 12:36 | Critical Care Progress Note ---
Assessment/Plan Assessment/Plan Upper GI bleed Anemia due to acute blood loss H/o GERD, previous G tube Chronic Tracheostomy, Respiratory failure with elevatedCO2 Aspiration pneumonia Sepsis Renal insufficiency, hyperkalemia, metabolic acidosis Previous Pseudomonal Pneumonia H/o Paroxysmal Atrial Fibrillation Diabetes CRI Anemia s/p transfusion Prev CVA Chronic encephalopathy Seizure history Hypothyroidism Tachycardia pleural effusions anasarca with ascites rectal tube PLAN care noted IV antibiotics reviewed respiratory noted Ventilatory support without wean off load replace lytes as needed monitor fluid balance pressors off as able SNF meds supportive care GI recommendations noted suction no wean planned oxygen therapy prognosis poor for recovery monitor need for transfusion and further interventions as needed full code medications/laboratory data/nursing notes/ICU care reviewed in detail note reviewed and edited care discussed with RN and RT ICU time spent >40 minutes Critical Care - Subjective Interval Events: care noted EGD cancelled due to low K ROS Limited/Unobtainable: Yes Condition: critical EKG Rhythm: Sinus Rhythm Residuals: minimal Tube Feeding Tolerated: yes I&O: Intake and Output 03/13/20 03/14/20 19:00 07:00 Intake Total 1965.5 ml 1492.5 ml Output Total 1035 ml 875 ml Balance 930.5 ml 617.5 ml IV Total 1565.5 ml 1372.5 ml Tube Feeding 360 ml 120 ml Other 40 ml Output Urine Total 1035 ml 875 ml # Bowel Movements 100 151 Critical Care - Objective Last 24 Hour Vital Signs Date Time Temp Pulse Resp B/P (MAP) Pulse Ox O2 Delivery O2 Flow Rate FiO2 03/14/20 12:00 72 26 141/86 (104) 100 03/14/20 12:00 Mechanical Ventilator 03/14/20 12:00 40 03/14/20 11:25 70 03/14/20 11:00 68 26 141/75 (97) 99 03/14/20 10:55 71 26 100 Mechanical Ventilator 30 72 26 30 03/14/20 10:00 76 14 147/82 (103) 100 03/14/20 09:45 73 141/73 03/14/20 09:00 73 26 141/73 (95) 100 03/14/20 08:00 Mechanical Ventilator 03/14/20 08:00 98.4 79 28 151/75 (100) 100 03/14/20 08:00 40 03/14/20 07:47 78 03/14/20 07:00 72 26 144/70 (94) 100 03/14/20 07:00 77 26 30 03/14/20 06:00 77 26 146/75 (98) 99 03/14/20 05:00 75 19 151/78 (102) 98 03/14/20 04:00 98.7 76 26 143/72 (95) 99 03/14/20 04:00 Mechanical Ventilator 03/14/20 04:00 40 03/14/20 04:00 93 03/14/20 03:28 81 26 30 03/14/20 03:00 81 29 150/77 (101) 100 03/14/20 02:00 77 26 148/75 (99) 97 03/14/20 01:00 73 26 139/71 (93) 97 03/14/20 00:00 80 03/14/20 00:00 99.6 82 30 145/73 (97) 97 03/14/20 00:00 Mechanical Ventilator 03/14/20 00:00 40 03/13/20 23:30 75 27 100 Mechanical Ventilator 30 89 28 30 03/13/20 23:00 75 27 141/68 (92) 98 03/13/20 22:00 78 27 138/72 (94) 97 03/13/20 21:00 82 29 145/74 (97) 98 03/13/20 20:00 40 03/13/20 20:00 79 03/13/20 20:00 99.9 76 26 145/91 (109) 100 03/13/20 20:00 84 33 30 03/13/20 20:00 Mechanical Ventilator 03/13/20 19:00 80 27 146/75 (98) 100 03/13/20 18:00 100 29 160/95 (116) 100 03/13/20 17:00 81 28 150/95 (113) 100 03/13/20 16:00 Mechanical Ventilator 03/13/20 16:00 82 03/13/20 16:00 99.6 87 22 162/87 (112) 03/13/20 16:00 40 03/13/20 15:00 86 28 142/78 (99) 98 03/13/20 14:55 79 33 40 03/13/20 14:00 75 33 130/74 (92) 98 03/13/20 13:00 78 32 135/75 (95) 100 Labs: Labs Test 03/12/20 05:45 03/13/20 06:00 03/14/20 04:00 White Blood Count 7.5 K/UL (4.8-10.8) 8.1 K/UL (4.8-10.8) 6.5 K/UL (4.8-10.8) Red Blood Count 2.93 M/UL (4.70-6.10) 2.77 M/UL (4.70-6.10) 2.58 M/UL (4.70-6.10) Hemoglobin 8.9 G/DL (14.2-18.0) 8.5 G/DL (14.2-18.0) 7.7 G/DL (14.2-18.0) Hematocrit 26.2 % (42.0-52.0) 25.0 % (42.0-52.0) 23.2 % (42.0-52.0) Mean Corpuscular Volume 90 FL (80-99) 90 FL (80-99) 90 FL (80-99) Mean Corpuscular Hemoglobin 30.5 PG (27.0-31.0) 30.8 PG (27.0-31.0) 30.0 PG (27.0-31.0) Mean Corpuscular Hemoglobin Concent 34.0 G/DL (32.0-36.0) 34.1 G/DL (32.0-36.0) 33.5 G/DL (32.0-36.0) Red Cell Distribution Width 13.8 % (11.6-14.8) 14.6 % (11.6-14.8) 14.1 % (11.6-14.8) Platelet Count 115 K/UL (150-450) 120 K/UL (150-450) 122 K/UL (150-450) Mean Platelet Volume 5.9 FL (6.5-10.1) 6.5 FL (6.5-10.1) 6.1 FL (6.5-10.1) Neutrophils (%) (Auto) 83.9 % (45.0-75.0) 80.7 % (45.0-75.0) % (45.0-75.0) Lymphocytes (%) (Auto) 9.9 % (20.0-45.0) 12.1 % (20.0-45.0) % (20.0-45.0) Monocytes (%) (Auto) 4.3 % (1.0-10.0) 4.9 % (1.0-10.0) % (1.0-10.0) Eosinophils (%) (Auto) 1.4 % (0.0-3.0) 2.1 % (0.0-3.0) % (0.0-3.0) Basophils (%) (Auto) 0.4 % (0.0-2.0) 0.3 % (0.0-2.0) % (0.0-2.0) Sodium Level 147 MMOL/L (136-145) 148 MMOL/L (136-145) 147 MMOL/L (136-145) Potassium Level 3.7 MMOL/L (3.5-5.1) 3.3 MMOL/L (3.5-5.1) 2.9 MMOL/L (3.5-5.1) Chloride Level 114 MMOL/L (98-107) 115 MMOL/L (98-107) 113 MMOL/L (98-107) Carbon Dioxide Level 23 MMOL/L (21-32) 24 MMOL/L (21-32) 26 MMOL/L (21-32) Anion Gap 10 mmol/L (5-15) 9 mmol/L (5-15) 8 mmol/L (5-15) Blood Urea Nitrogen 78 mg/dL (7-18) 67 mg/dL (7-18) 63 mg/dL (7-18) Creatinine 2.9 MG/DL (0.55-1.30) 2.8 MG/DL (0.55-1.30) 2.7 MG/DL (0.55-1.30) Estimat Glomerular Filtration Rate 21.2 mL/min (>60) 22.1 mL/min (>60) 23.0 mL/min (>60) Glucose Level 107 MG/DL (74-106) 128 MG/DL (74-106) 113 MG/DL (74-106) Calcium Level 7.9 MG/DL (8.5-10.1) 7.3 MG/DL (8.5-10.1) 7.3 MG/DL (8.5-10.1) Total Bilirubin 0.3 MG/DL (0.2-1.0) 0.2 MG/DL (0.2-1.0) Aspartate Amino Transf (AST/SGOT) 22 U/L (15-37) 28 U/L (15-37) Alanine Aminotransferase (ALT/SGPT) 19 U/L (12-78) 18 U/L (12-78) Alkaline Phosphatase 71 U/L (46-116) 79 U/L (46-116) Total Protein 5.8 G/DL (6.4-8.2) 5.3 G/DL (6.4-8.2) Albumin 1.2 G/DL (3.4-5.0) 1.0 G/DL (3.4-5.0) Globulin 4.6 g/dL 4.3 g/dL Albumin/Globulin Ratio 0.3 (1.0-2.7) 0.2 (1.0-2.7) Phosphorus Level 3.0 MG/DL (2.5-4.9) Magnesium Level 1.9 MG/DL (1.8-2.4) Objective: WDWN NAD chronically ill tachypneic reduced breath sounds bilaterally without rhonchi or wheeze [id number] without MRG NABS nontender not distended; GT no CC edema nonfocal contracted line reviewed reviewed and edited Accucheck: 108 Mansoor Martinez MD Mar 14, 2020 12:36
[2020-03-14 14:59] LABS: ALBUMIN 0.9 G/DL (3.4-5.0); ALBUMIN/GLOBULIN RATIO 0.2 (1.0-2.7); BILIRUBIN,TOTAL 0.3 MG/DL (0.2-1.0); CALCIUM 7.4 MG/DL (8.5-10.1); CREATININE 2.6 MG/DL (0.55-1.30); POTASSIUM 3.2 MMOL/L (3.5-5.1)
[2020-03-14] MEDS ORDERED: Tubing IV Secondary IV ONE ×2 (15:05→15:40)
[2020-03-14] MEDS ORDERED: NS 275ml ONE (15:40)
--- NOTE | 2020-03-14 18:38 | Surgery Progress Note ---
Surgery Progress Note Subjective Additional Comments hb 7.7 no active bleeding plan repeat scope soon no n/v Objective Last 24 Hour Vital Signs Date Time Temp Pulse Resp B/P (MAP) Pulse Ox O2 Delivery O2 Flow Rate FiO2 03/14/20 18:00 76 27 150/78 (102) 99 03/14/20 17:00 70 26 138/84 (102) 100 03/14/20 16:00 Mechanical Ventilator 03/14/20 16:00 72 26 143/79 (100) 100 03/14/20 16:00 93 03/14/20 16:00 40 03/14/20 15:20 88 26 30 03/14/20 15:00 72 26 146/73 (97) 100 03/14/20 14:00 73 26 147/80 (102) 100 03/14/20 13:00 69 26 144/75 (98) 100 03/14/20 12:00 72 26 141/86 (104) 100 03/14/20 12:00 Mechanical Ventilator 03/14/20 12:00 40 03/14/20 11:25 70 03/14/20 11:00 68 26 141/75 (97) 99 03/14/20 10:55 71 26 100 Mechanical Ventilator 30 72 26 30 03/14/20 10:00 76 14 147/82 (103) 100 03/14/20 09:45 73 141/73 03/14/20 09:00 73 26 141/73 (95) 100 03/14/20 08:00 Mechanical Ventilator 03/14/20 08:00 98.4 79 28 151/75 (100) 100 03/14/20 08:00 40 03/14/20 07:47 78 03/14/20 07:00 72 26 144/70 (94) 100 03/14/20 07:00 77 26 30 03/14/20 06:00 77 26 146/75 (98) 99 03/14/20 05:00 75 19 151/78 (102) 98 03/14/20 04:00 98.7 76 26 143/72 (95) 99 03/14/20 04:00 Mechanical Ventilator 03/14/20 04:00 40 03/14/20 04:00 93 03/14/20 03:28 81 26 30 03/14/20 03:00 81 29 150/77 (101) 100 03/14/20 02:00 77 26 148/75 (99) 97 03/14/20 01:00 73 26 139/71 (93) 97 03/14/20 00:00 80 03/14/20 00:00 99.6 82 30 145/73 (97) 97 03/14/20 00:00 Mechanical Ventilator 03/14/20 00:00 40 03/13/20 23:30 75 27 100 Mechanical Ventilator 30 89 28 30 03/13/20 23:00 75 27 141/68 (92) 98 03/13/20 22:00 78 27 138/72 (94) 97 03/13/20 21:00 82 29 145/74 (97) 98 03/13/20 20:00 40 03/13/20 20:00 79 03/13/20 20:00 99.9 76 26 145/91 (109) 100 03/13/20 20:00 84 33 30 03/13/20 20:00 Mechanical Ventilator 03/13/20 19:00 80 27 146/75 (98) 100 I&O Intake and Output 03/13/20 03/14/20 19:00 07:00 Intake Total 1965.5 ml 1492.5 ml Output Total 1035 ml 875 ml Balance 930.5 ml 617.5 ml IV Total 1565.5 ml 1372.5 ml Tube Feeding 360 ml 120 ml Other 40 ml Output Urine Total 1035 ml 875 ml # Bowel Movements 100 151 Cardiovascular: RSR Respiratory: decreased breath sounds Abdomen: soft, non-tender, present bowel sounds Extremities: no tenderness, no cyanosis Laboratory Tests Test 03/14/20 04:00 03/14/20 14:15 White Blood Count 6.5 K/UL (4.8-10.8) Red Blood Count 2.58 M/UL (4.70-6.10) L Hemoglobin 7.7 G/DL (14.2-18.0) L Hematocrit 23.2 % (42.0-52.0) L Mean Corpuscular Volume 90 FL (80-99) Mean Corpuscular Hemoglobin 30.0 PG (27.0-31.0) Mean Corpuscular Hemoglobin Concent 33.5 G/DL (32.0-36.0) Red Cell Distribution Width 14.1 % (11.6-14.8) Platelet Count 122 K/UL (150-450) L Mean Platelet Volume 6.1 FL (6.5-10.1) L Neutrophils (%) (Auto) % (45.0-75.0) Lymphocytes (%) (Auto) % (20.0-45.0) Monocytes (%) (Auto) % (1.0-10.0) Eosinophils (%) (Auto) % (0.0-3.0) Basophils (%) (Auto) % (0.0-2.0) Sodium Level 147 MMOL/L (136-145) H 140 MMOL/L (136-145) Potassium Level 2.9 MMOL/L (3.5-5.1) L 3.2 MMOL/L (3.5-5.1) L Chloride Level 113 MMOL/L (98-107) H 110 MMOL/L (98-107) H Carbon Dioxide Level 26 MMOL/L (21-32) 24 MMOL/L (21-32) Anion Gap 8 mmol/L (5-15) 6 mmol/L (5-15) Blood Urea Nitrogen 63 mg/dL (7-18) H 64 mg/dL (7-18) H Creatinine 2.7 MG/DL (0.55-1.30) H 2.6 MG/DL (0.55-1.30) H Estimat Glomerular Filtration Rate 23.0 mL/min (>60) 24.1 mL/min (>60) Glucose Level 113 MG/DL (74-106) H 108 MG/DL (74-106) H Calcium Level 7.3 MG/DL (8.5-10.1) L 7.4 MG/DL (8.5-10.1) L Total Bilirubin 0.2 MG/DL (0.2-1.0) 0.3 MG/DL (0.2-1.0) Aspartate Amino Transf (AST/SGOT) 28 U/L (15-37) 21 U/L (15-37) Alanine Aminotransferase (ALT/SGPT) 18 U/L (12-78) 13 U/L (12-78) Alkaline Phosphatase 79 U/L (46-116) 67 U/L (46-116) Total Protein 5.3 G/DL (6.4-8.2) L 5.3 G/DL (6.4-8.2) L Albumin 1.0 G/DL (3.4-5.0) L 0.9 G/DL (3.4-5.0) L Globulin 4.3 g/dL 4.4 g/dL Albumin/Globulin Ratio 0.2 (1.0-2.7) L 0.2 (1.0-2.7) L Plan Problems: (1) Respiratory failure (2) GIB (gastrointestinal bleeding) Assessment & Plan: 79-year-old male with leukocytosis, anemia, NG tube inserted and bright blood identified. Plan for urgent EGD today. Protonix IV N.p.o. IV fluid resuscitation PRBC transfusion trend labs Care plan discussed with GI will await EGD findings Thank you for let me participate in patient's care will follow with recommendations EGD findings noted discussed with GI NG tube placed Continuous gastric irrigation and suction initiated plan for repeat scope soon repeat scope noted unchanged cannot remove clot CT reviewed surgery too high risk no active bleeding trend h/h start tf plan to repeat scope next week discussed with GI hold on surgery There is a rectal tube in place. The balloon is likely inflated within the anal canal rather than the distal rectum. There is marked rectal wall thickening and considerable edema of the perirectal fat. Prominent gas-filled right upper quadrant bowel seen on recent plain radiographs is demonstrated to be the cecum. Although the sacrum appears quite wide in transverse dimension (approximately 11.5 cm) it is not particularly distended in the AP plane, measuring 4.9 cm AP. The anatomy of the ascending colon and hepatic flexure is not well-defined, and it is unclear whether this represents a possible cecal bascule versus an unusually positioned but otherwise normal cecum. No definite wall thickening is evident. The terminal ileum is normal in caliber or collapsed. The remainder of the small bowel appears mildly dilated, gas and fluid-filled, and the transition point appears to be gradual. No definite small bowel wall thickening. There is a gastrostomy tube which appears to be well positioned at the gastric antrum body junction.. The stomach is distended. The gastric antrum and proximal duodenum appears somewhat thick walled. Ingested contrast has traversed a portion of the proximal small bowel. There is considerable material dependently within the stomach, displacing the ingested contrast. Surgical clips are seen in the mesenteric root inferior to the pancreatic tail and anterior to the proximal jejunum There is moderate free intraperitoneal fluid. No free intraperitoneal gas is demonstrated. Lack of IV contrast limits assessment of the solid organs. The liver, gallbladder, bile ducts, pancreas, spleen, adrenals, right kidney are unremarkable. Left kidney demonstrates a lower pole cyst. The bladder is mildly distended, and minimally thick-walled. There are bilateral right greater than left pleural effusions. There is bilateral basilar pulmonary parenchymal consolidation and/or edema consolidation. The heart is upper limits normal in size. There is extensive edema of the subcutaneous fat, less extensive edema of the mesenteric and retroperitoneal fat. The bones demonstrate a compression fracture deformity of the L1 vertebral body. There are degenerative changes at the lumbosacral junction. Impression: Poorly delineated cecal and ascending colon anatomy. Dilated bowel loop in the right upper quadrant seen on recent plain radiograph is demonstrated to be the cecum. It is dilated, although less severely than is suggested by the plain radiograph. The tip of the cecum is pointed cephalad. There is also dilatation of most of the small bowel, which is dilated, gas and fluid-filled, but the terminal ileum is nondilated. There is not a definite abrupt transition point. Findings may be purely on the basis of ileus with variant cecal anatomy and unusual hepato- colonic interposition, but the possibility of a cecal bascule or internal hernia causing ascending colon and/or distal small bowel obstruction should also be considered. Rectal tube balloon is dilated within the anal canal. Recommend deflation and repositioning Wall thickening of the distal sigmoid and rectum, with edema of the perirectal/perisigmoid fat, concerning for colitis. Distended stomach. Given stated clinical history of GI bleeding, material within the gastric fundus displacing the contrast likely represents blood clots, but any of this could also represent an endophytic mass lesion. There is no rand gastric fundal wall thickening. There is some wall thickening of the gastric antrum and duodenum, although this could in part be an artifact of lack of distention. Gastrostomy is in good position Moderate ascites Bilateral pleural effusions. Bilateral parenchymal consolidation, may reflect pulmonary edema versus parenchymal infiltrates Other evidence of anasarca, with diffuse edema of the subcutaneous fat, less severe edema of the abdominal fat L1 vertebral body compression fracture, age-indeterminate Other findings as noted, including degenerative spondylosis, left lower pole renal cyst. (3) Aspiration pneumonia (4) Sepsis (5) ARF (acute renal failure) (6) HCAP (healthcare-associated pneumonia) (7) Dehydration (8) Hypokalemia (9) Hyperkalemia (10) Anemia (11) Decubitus skin ulcer Assessment & Plan: Pt presented on admission with gross contractures, Multiple Pressure Injuries, Tracheostomy. Skin Assessed under tracheal collar and no evidence of skin breakdown noted. Tear noted to urinary meatus- no exudate noted. Scrotum is erythematous with scattered satellite lesions. Large ulcer noted to R scrotal sac (L)4cm x (W)4.6cm. Base of wound is erythematous ,moist with Biofilm. Sacral DTPI with clusters of small islands of slough with surrounding maroon and indurated areas (L)8cm x (W)12cm.Mild Odor noted. Partial thickness Pressure Injury Upper/outer R buttocks(L)1.8cm x (W)1.3cm. Base of wound is moist and viable. Edges adherent to base of wound. Surrounding non-blanching erythema with scattered areas of shearing noted. Partial thickness Pressure Inferior lower R buttocks.(L)0.8cm x (W)1.2cm. Base of wound is moist and viable. Edges adherent to base of wound. Surrounding non- blanching erythema with scattered shearing noted extending into R ischial tuberosity. Clusters of small hyperpigmentation noted to L trochanteric and L ischial tuberosity. R Heel is fluctuant with scattered dry eschar and surrounding Non-Blanchable erythema.(L)6.5cm x (W)8cm. DTPI distal/lateral R foot(L)3cm x (W)3cm. Base of wound is maroon and fluctuant. dry eschar noted to tip of R 1st metatarsal with surrounding non-blanchable erythema extending dorsally and laterally of metatarsal(L)5cm x (W)1.3cm Non-Blanchable erythema that is fluctuant at base noted to dorso/lateral L 5th metatarsal(L)0.6cm x (W)0.3cm. L Heel is boggy with non-blanchable erythema laterally. Hyperpigmentation from previous wound noted at L heel. Tx.Plan: Cleanse Sacral wound with Saline. Apply TheraHoney to slough. Apply Moisture Barrier Paste periwound. Cover with Optifoam drsg. Change daily and prn. Apply Moisture Barrier Paste to Wounds R upper and lower R Buttocks. Cover each wound with Optifoam drsg. Change every 3 days and prn. Apply Zinc Oxide Paste to Scrotal Wounds TID and prn. Apply Betadine to wounds R heel and R foot . Cover with ABD Pads and wrap with Kerlix every 3 days and prn. Apply Betadine to L foot. Cover with ABD Pads and wrap with Kerlix every 3 days and prn. Cover Bony Prominences as needed with Optifoam drsgs. Reposition at least every 2hours or as tolerated. Off-load heels with pillow. 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
[2020-03-14] MEDS: Dyna-Hex 2% Top Sol 2oz TOPIC SCH (20:11)
--- NOTE | 2020-03-14 22:29 | General Progress Note ---
Assessment/Plan Status: stable, unchanged Assessment/Plan: Assessment - UGI Bleed - Endoscopy today cancelled by anesthesia due to low K level - large fundus clot - failed EGD x 2 - more stable now - aberrant cecal position on CT - malnutrition / low albumin - resp failure / trach - dysphagia / PEG - multiple contractures - OBS - Anemia - Azotemia - improving sepsis Recommendations - Resume tube feeds - Replace K - EGD rescheduled for FRIDAY - PPI - follow labs - DPOA to decide on level of care Subjective Allergies: Coded Allergies: No Known Allergies (Unverified , 02/23/12) Subjective above noted Endoscopy scheduled for this am but procedure cancelled by anesthesia, due to low K transfusion order noted Objective Last 24 Hour Vital Signs Date Time Temp Pulse Resp B/P (MAP) Pulse Ox O2 Delivery O2 Flow Rate FiO2 03/14/20 22:00 67 26 152/84 (106) 100 03/14/20 21:07 98.6 71 26 151/80 (103) 100 03/14/20 21:00 70 26 152/79 (103) 100 03/14/20 20:00 71 03/14/20 20:00 Mechanical Ventilator 03/14/20 20:00 98.8 71 26 153/87 (109) 100 03/14/20 20:00 40 03/14/20 19:28 70 26 30 03/14/20 19:00 70 26 152/76 (101) 100 03/14/20 18:00 76 27 150/78 (102) 99 03/14/20 17:00 70 26 138/84 (102) 100 03/14/20 16:00 Mechanical Ventilator 03/14/20 16:00 72 26 143/79 (100) 100 03/14/20 16:00 93 03/14/20 16:00 40 03/14/20 15:20 88 26 30 03/14/20 15:00 72 26 146/73 (97) 100 03/14/20 14:00 73 26 147/80 (102) 100 03/14/20 13:00 69 26 144/75 (98) 100 03/14/20 12:00 72 26 141/86 (104) 100 03/14/20 12:00 Mechanical Ventilator 03/14/20 12:00 40 03/14/20 11:25 70 9/15/20 11:00 68 26 141/75 (97) 99 03/14/20 10:55 71 26 100 Mechanical Ventilator 30 72 26 30 03/14/20 10:00 76 14 147/82 (103) 100 03/14/20 09:45 73 141/73 03/14/20 09:00 73 26 141/73 (95) 100 03/14/20 08:00 Mechanical Ventilator 03/14/20 08:00 98.4 79 28 151/75 (100) 100 03/14/20 08:00 40 03/14/20 07:47 78 03/14/20 07:00 72 26 144/70 (94) 100 03/14/20 07:00 77 26 30 03/14/20 06:00 77 26 146/75 (98) 99 03/14/20 05:00 75 19 151/78 (102) 98 03/14/20 04:00 98.7 76 26 143/72 (95) 99 03/14/20 04:00 Mechanical Ventilator 03/14/20 04:00 40 03/14/20 04:00 93 03/14/20 03:28 81 26 30 03/14/20 03:00 81 29 150/77 (101) 100 03/14/20 02:00 77 26 148/75 (99) 97 03/14/20 01:00 73 26 139/71 (93) 97 03/14/20 00:00 80 03/14/20 00:00 99.6 82 30 145/73 (97) 97 03/14/20 00:00 Mechanical Ventilator 03/14/20 00:00 40 03/13/20 23:30 75 27 100 Mechanical Ventilator 30 89 28 30 03/13/20 23:00 75 27 141/68 (92) 98 Intake and Output 03/13/20 03/14/20 19:00 07:00 Intake Total 1965.5 ml 1492.5 ml Output Total 1035 ml 875 ml Balance 930.5 ml 617.5 ml IV Total 1565.5 ml 1372.5 ml Tube Feeding 360 ml 120 ml Other 40 ml Output Urine Total 1035 ml 875 ml # Bowel Movements 100 151 Laboratory Tests 03/14/20 04:00: White Blood Count 6.5, Red Blood Count 2.58L, Hemoglobin 7.7L, Hematocrit 23.2L , Mean Corpuscular Volume 90, Mean Corpuscular Hemoglobin 30.0, Mean Corpuscular Hemoglobin Concent 33.5, Red Cell Distribution Width 14.1, Platelet Count 122L, Mean Platelet Volume 6.1L, Neutrophils (%) (Auto) , Lymphocytes (%) (Auto) , Monocytes (%) (Auto) , Eosinophils (%) (Auto) , Basophils (%) (Auto) , Sodium Level 147H, Potassium Level 2.9L, Chloride Level 113H, Carbon Dioxide Level 26, Anion Gap 8, Blood Urea Nitrogen 63H, Creatinine 2.7H, Estimat Glomerular Filtration Rate 23.0, Glucose Level 113H, Calcium Level 7.3L, Total Bilirubin 0.2, Aspartate Amino Transf (AST/SGOT) 28, Alanine Aminotransferase ( ALT/SGPT) 18, Alkaline Phosphatase 79, Total Protein 5.3L, Albumin 1.0L, Globulin 4.3, Albumin/Globulin Ratio 0.2L 03/14/20 14:15: Sodium Level 140, Potassium Level 3.2L, Chloride Level 110H, Carbon Dioxide Level 24, Anion Gap 6, Blood Urea Nitrogen 64H, Creatinine 2.6H, Estimat Glomerular Filtration Rate 24.1, Glucose Level 108H, Calcium Level 7.4L, Total Bilirubin 0.3, Aspartate Amino Transf (AST/SGOT) 21, Alanine Aminotransferase ( ALT/SGPT) 13, Alkaline Phosphatase 67, Total Protein 5.3L, Albumin 0.9L, Globulin 4.4, Albumin/Globulin Ratio 0.2L Height (Feet): 5 Height (Inches): 7.00 Weight (Pounds): 149 Objective Debilitated unresponsive man NCAT (+) trach coarse BS RR abd flat , (+) GT (+) contractures (+) skin breakdown Clive Kuo MD Mar 14, 2020 22:29
[2020-03-14] MEDS: Zinc Oxide Oint 2oz TOPIC SCH (23:15)
[2020-03-15] VITALS (24 sets, daily range): BP systolic 135–165; BP diastolic 68–104
[2020-03-15] MEDS: Pantoprazole 80 MG in NS 250 ML IV SCH ×3 (02:28→21:59)
--- NOTE | 2020-03-15 02:37 | Cardiology Progress Note ---
Subjective DATE OF SERVICE: Mar 14, 2020 On vent via trach Still with small amount of GI blood loss, but significant drop in hemoglobin today. On IV fluids BP trend stabilized Monitor: sinus/sinus tachycardia Objective Last 24 Hour Vital Signs Date Time Temp Pulse Resp B/P (MAP) Pulse Ox O2 Delivery O2 Flow Rate FiO2 03/15/20 02:25 69 26 30 03/15/20 02:00 66 26 149/76 (100) 100 03/15/20 01:00 76 31 150/90 (110) 99 03/15/20 00:00 98.6 69 26 148/87 (107) 99 03/15/20 00:00 Mechanical Ventilator 03/14/20 23:13 77 26 100 Mechanical Ventilator 30 79 26 30 03/14/20 23:00 65 26 147/75 (99) 100 03/14/20 22:00 67 26 152/84 (106) 100 03/14/20 21:07 98.6 71 26 151/80 (103) 100 03/14/20 21:00 70 26 152/79 (103) 100 03/14/20 20:00 71 03/14/20 20:00 Mechanical Ventilator 03/14/20 20:00 98.8 71 26 153/87 (109) 100 03/14/20 20:00 40 03/14/20 19:28 70 26 30 03/14/20 19:00 70 26 152/76 (101) 100 03/14/20 18:00 76 27 150/78 (102) 99 03/14/20 17:00 70 26 138/84 (102) 100 03/14/20 16:00 Mechanical Ventilator 03/14/20 16:00 72 26 143/79 (100) 100 03/14/20 16:00 93 03/14/20 16:00 40 03/14/20 15:20 88 26 30 03/14/20 15:00 72 26 146/73 (97) 100 03/14/20 14:00 73 26 147/80 (102) 100 03/14/20 13:00 69 26 144/75 (98) 100 03/14/20 12:00 72 26 141/86 (104) 100 03/14/20 12:00 Mechanical Ventilator 03/14/20 12:00 40 03/14/20 11:25 70 03/14/20 11:00 68 26 141/75 (97) 99 03/14/20 10:55 71 26 100 Mechanical Ventilator 30 72 26 30 03/14/20 10:00 76 14 147/82 (103) 100 03/14/20 09:45 73 141/73 03/14/20 09:00 73 26 141/73 (95) 100 03/14/20 08:00 Mechanical Ventilator 03/14/20 08:00 98.4 79 28 151/75 (100) 100 03/14/20 08:00 40 03/14/20 07:47 78 03/14/20 07:00 72 26 144/70 (94) 100 03/14/20 07:00 77 26 30 03/14/20 06:00 77 26 146/75 (98) 99 03/14/20 05:00 75 19 151/78 (102) 98 03/14/20 04:00 98.7 76 26 143/72 (95) 99 03/14/20 04:00 Mechanical Ventilator 03/14/20 04:00 40 03/14/20 04:00 93 03/14/20 03:28 81 26 30 03/14/20 03:00 81 29 150/77 (101) 100 ROS: unchanged from my dictation of 03/05/20 HEENT: Mechanically Ventilated, Thick Trach secretions RHYTHM: ST LUNGS: bilateral rhonchi CARDIAC: regular rhythm, normal S1 and S2, tachycardia ABDOMEN: normal bowel sounds, non tender, soft, no organomegaly, decreased bowel sounds, slightly distended, G-Tube intact EXTREMITIES: no calf tenderness, pitting edema - dependent Laboratory Tests Test 03/14/20 04:00 03/14/20 14:15 White Blood Count 6.5 K/UL (4.8-10.8) Red Blood Count 2.58 M/UL (4.70-6.10) L Hemoglobin 7.7 G/DL (14.2-18.0) L Hematocrit 23.2 % (42.0-52.0) L Mean Corpuscular Volume 90 FL (80-99) Mean Corpuscular Hemoglobin 30.0 PG (27.0-31.0) Mean Corpuscular Hemoglobin Concent 33.5 G/DL (32.0-36.0) Red Cell Distribution Width 14.1 % (11.6-14.8) Platelet Count 122 K/UL (150-450) L Mean Platelet Volume 6.1 FL (6.5-10.1) L Neutrophils (%) (Auto) % (45.0-75.0) Lymphocytes (%) (Auto) % (20.0-45.0) Monocytes (%) (Auto) % (1.0-10.0) Eosinophils (%) (Auto) % (0.0-3.0) Basophils (%) (Auto) % (0.0-2.0) Sodium Level 147 MMOL/L (136-145) H 140 MMOL/L (136-145) Potassium Level 2.9 MMOL/L (3.5-5.1) L 3.2 MMOL/L (3.5-5.1) L Chloride Level 113 MMOL/L (98-107) H 110 MMOL/L (98-107) H Carbon Dioxide Level 26 MMOL/L (21-32) 24 MMOL/L (21-32) Anion Gap 8 mmol/L (5-15) 6 mmol/L (5-15) Blood Urea Nitrogen 63 mg/dL (7-18) H 64 mg/dL (7-18) H Creatinine 2.7 MG/DL (0.55-1.30) H 2.6 MG/DL (0.55-1.30) H Estimat Glomerular Filtration Rate 23.0 mL/min (>60) 24.1 mL/min (>60) Glucose Level 113 MG/DL (74-106) H 108 MG/DL (74-106) H Calcium Level 7.3 MG/DL (8.5-10.1) L 7.4 MG/DL (8.5-10.1) L Total Bilirubin 0.2 MG/DL (0.2-1.0) 0.3 MG/DL (0.2-1.0) Aspartate Amino Transf (AST/SGOT) 28 U/L (15-37) 21 U/L (15-37) Alanine Aminotransferase (ALT/SGPT) 18 U/L (12-78) 13 U/L (12-78) Alkaline Phosphatase 79 U/L (46-116) 67 U/L (46-116) Total Protein 5.3 G/DL (6.4-8.2) L 5.3 G/DL (6.4-8.2) L Albumin 1.0 G/DL (3.4-5.0) L 0.9 G/DL (3.4-5.0) L Globulin 4.3 g/dL 4.4 g/dL Albumin/Globulin Ratio 0.2 (1.0-2.7) L 0.2 (1.0-2.7) L Assessment/Plan Assessment/Plan Sepsis with shock recovered Respiratory Failure Lactic acidosis resolved Sinus tachycardia/PAFib Acute renal failure Aspiration PNA Leukocytosis Anemia GI Bleeding Dysphagia with GTube Severe protein/calorie malnutrition Hypokalemia Vent support Antimicrobials IVF with bicarb DVT prophylaxis Continue to transfuse PRBC's for hemoglobin below 7 gm/dl. AntiHTN rx prn for now; may need to advance soon. Protein suppl Potassim supplement Franko Pineda MD Mar 15, 2020 02:37
[2020-03-15 05:45] LABS: BASOPHILS % (AUTO) 0.6 % (0.0-2.0); EOSINOPHILS % (AUTO) 3.8 % (0.0-3.0); HEMATOCRIT 25.7 % (42.0-52.0); HEMOGLOBIN 8.8 G/DL (14.2-18.0); LYMPHOCYTES % (AUTO) 14.8 % (20.0-45.0); MEAN CORPUSCULAR VOLUME 89 FL (80-99); MONOCYTES % (AUTO) 7.7 % (1.0-10.0); NEUTROPHILS % (AUTO) 73.1 % (45.0-75.0); PLATELET COUNT 152 K/UL (150-450); RED CELL DISTRIBUTION WIDTH 14.3 % (11.6-14.8); WHITE BLOOD COUNT 7.5 K/UL (4.8-10.8)
[2020-03-15 06:03] LABS: CALCIUM 7.1 MG/DL (8.5-10.1); CREATININE 2.6 MG/DL (0.55-1.30); POTASSIUM 3.4 MMOL/L (3.5-5.1)
[2020-03-15] MEDS: Zinc Oxide Oint 2oz TOPIC SCH ×3 (06:36→22:00)
[2020-03-15] MEDS: Metoclopramide 10mg/2ml Inj IVP SCH ×3 (06:36→17:19)
[2020-03-15] MEDS: Phenylephrine 100 MG in D5W 240 ML IV SCH (09:05)
[2020-03-15] MEDS: Meropenem 500 MG in NS 55 ML IVPB SCH (09:05)
--- NOTE | 2020-03-15 09:54 | Critical Care Progress Note ---
Assessment/Plan Assessment/Plan Upper GI bleed Anemia due to acute blood loss H/o GERD, previous G tube Chronic Tracheostomy, Respiratory failure with elevatedCO2 Aspiration pneumonia Sepsis Renal insufficiency, hyperkalemia, metabolic acidosis Previous Pseudomonal Pneumonia H/o Paroxysmal Atrial Fibrillation Diabetes CRI Anemia s/p transfusion Prev CVA Chronic encephalopathy Seizure history Hypothyroidism Tachycardia pleural effusions anasarca with ascites rectal tube PLAN care noted IV antibiotics discussed and cultures reviewed respiratory noted- vent assessed Ventilatory support without wean off load and position change replace lytes as needed monitor fluid balance pressors off as able SNF meds noted supportive care GI recommendations noted and await follow up EGD suction no wean planned full support for now oxygen therapy prognosis poor for recovery monitor need for transfusion and further interventions as needed full code medications/laboratory data/nursing notes/ICU care reviewed in detail note reviewed and edited care discussed with RN and RT ICU time spent >40 minutes Critical Care - Subjective Interval Events: care noted on IV s on vent on feeds poorly responsive ROS Limited/Unobtainable: Yes Condition: critical EKG Rhythm: Sinus Rhythm Residuals: minimal Tube Feeding Tolerated: yes I&O: Intake and Output 03/14/20 03/15/20 19:00 07:00 Intake Total 1722.5 ml 2492 ml Output Total 555 ml 630 ml Balance 1167.5 ml 1862 ml Free Water 100 ml IV Total 1482.5 ml 1782 ml Tube Feeding 240 ml 360 ml Blood Product 250 ml Output Urine Total 405 ml 580 ml Stool Total 150 ml 50 ml # Bowel Movements 3 3 Critical Care - Objective Last 24 Hour Vital Signs Date Time Temp Pulse Resp B/P (MAP) Pulse Ox O2 Delivery O2 Flow Rate FiO2 03/15/20 09:05 151/75 03/15/20 09:00 69 28 151/75 (100) 100 03/15/20 08:00 Mechanical Ventilator 03/15/20 08:00 30 03/15/20 08:00 99.0 63 26 152/104 (120) 100 03/15/20 07:28 63 26 30 03/15/20 07:00 75 28 153/81 (105) 100 03/15/20 06:00 69 28 150/74 (99) 99 03/15/20 05:00 69 26 151/77 (101) 100 03/15/20 04:00 Mechanical Ventilator 03/15/20 04:00 70 03/15/20 04:00 30 03/15/20 04:00 98.6 68 26 150/74 (99) 100 03/15/20 03:00 66 26 150/74 (99) 100 03/15/20 02:25 69 26 30 03/15/20 02:00 66 26 149/76 (100) 100 03/15/20 01:00 76 31 150/90 (110) 99 03/15/20 00:00 98.6 69 26 148/87 (107) 99 03/15/20 00:00 Mechanical Ventilator 03/15/20 00:00 30 03/15/20 00:00 71 03/14/20 23:13 77 26 100 Mechanical Ventilator 30 79 26 30 03/14/20 23:00 65 26 147/75 (99) 100 03/14/20 22:00 67 26 152/84 (106) 100 03/14/20 21:07 98.6 71 26 151/80 (103) 100 03/14/20 21:00 70 26 152/79 (103) 100 03/14/20 20:00 71 03/14/20 20:00 Mechanical Ventilator 03/14/20 20:00 98.8 71 26 153/87 (109) 100 03/14/20 20:00 40 03/14/20 19:28 70 26 30 03/14/20 19:00 70 26 152/76 (101) 100 03/14/20 18:00 76 27 150/78 (102) 99 03/14/20 17:00 70 26 138/84 (102) 100 03/14/20 16:00 Mechanical Ventilator 03/14/20 16:00 72 26 143/79 (100) 100 03/14/20 16:00 93 03/14/20 16:00 40 03/14/20 15:20 88 26 30 03/14/20 15:00 72 26 146/73 (97) 100 03/14/20 14:00 73 26 147/80 (102) 100 03/14/20 13:00 69 26 144/75 (98) 100 03/14/20 12:00 72 26 141/86 (104) 100 03/14/20 12:00 Mechanical Ventilator 03/14/20 12:00 40 03/14/20 11:25 70 03/14/20 11:00 68 26 141/75 (97) 99 03/14/20 10:55 71 26 100 Mechanical Ventilator 30 72 26 30 03/14/20 10:00 76 14 147/82 (103) 100 Labs: Laboratory Tests 03/14/20 14:15: Sodium Level 140, Potassium Level 3.2L, Chloride Level 110H, Carbon Dioxide Lev el 24, Anion Gap 6, Blood Urea Nitrogen 64H, Creatinine 2.6H, Estimat Glomerular Filtration Rate 24.1, Glucose Level 108H, Calcium Level 7.4L, Total Bilirubin 0.3, Aspartate Amino Transf (AST/SGOT) 21, Alanine Aminotransferase (ALT/SGPT) 13, Alkaline Phosphatase 67, Total Protein 5.3L, Albumin 0.9L, Globulin 4.4, Albumin/Globulin Ratio 0.2L 03/15/20 03:20: Sodium Level 145, Potassium Level 3.4L, Chloride Level 112H, Carbon Dioxide Level 25, Anion Gap 8, Blood Urea Nitrogen 59H, Creatinine 2.6H, Estimat Glomerular Filtration Rate 24.1, Glucose Level 116H, Calcium Level 7.1L, White Blood Count 7.5, Red Blood Count 2.90L, Hemoglobin 8.8L, Hematocrit 25.7L, Mean Corpuscular Volume 89, Mean Corpuscular Hemoglobin 30.4, Mean Corpuscular Hemoglobin Concent 34.2, Red Cell Distribution Width 14.3, Platelet Count 152, Mean Platelet Volume 7.3, Neutrophils (%) (Auto) 73.1, Lymphocytes (%) (Auto) 14.8L, Monocytes (%) (Auto) 7.7, Eosinophils (%) (Auto) 3.8H, Basophils (%) (Auto) 0.6, Magnesium Level 1.5L Objective: WDWN NAD chronically ill tachypneic reduced breath sounds bilaterally without rhonchi or wheeze [id number] without MRG NABS nontender not distended; GT no CC edema nonfocal contracted line reviewed reviewed and edited Accucheck: 108 Mansoor Martinez MD Mar 15, 2020 09:54
[2020-03-15] MEDS: Colistin for inhalation INH SCH (10:44)
[2020-03-15] MEDS: levETIRAcetam 750 MG in NS 110 ML IV SCH ×2 (10:57→22:00)
--- NOTE | 2020-03-15 10:57 | Infectious Diseases Prog Note ---
"Assessment/Plan Assessment/Plan antibiotics : meropenem, inhaled colistin A 1. proteus | e.coli | acenitobacter | klebsiella pneumonia COVID 19 negative 2. + blood cultures with coag neg staph contaminated 3. renal failure 4. shock 5. GI bleeding 6. diabetes mellitus P 1. d/c meropenem, inhaled colistin 2. observe off antibiotics 3. will follow up cultures Subjective ROS Limited/Unobtainable: Yes Allergies: Coded Allergies: No Known Allergies (Unverified , 02/23/12) Objective Last 24 Hour Vital Signs Date Time Temp Pulse Resp B/P (MAP) Pulse Ox O2 Delivery O2 Flow Rate FiO2 03/15/20 10:00 71 28 153/80 (104) 99 03/15/20 09:05 151/75 03/15/20 09:00 69 28 151/75 (100) 100 03/15/20 08:00 Mechanical Ventilator 03/15/20 08:00 30 03/15/20 08:00 99.0 63 26 152/104 (120) 100 03/15/20 07:28 63 26 30 03/15/20 07:00 75 28 153/81 (105) 100 03/15/20 06:00 69 28 150/74 (99) 99 03/15/20 05:00 69 26 151/77 (101) 100 03/15/20 04:00 Mechanical Ventilator 03/15/20 04:00 70 03/15/20 04:00 30 03/15/20 04:00 98.6 68 26 150/74 (99) 100 03/15/20 03:00 66 26 150/74 (99) 100 03/15/20 02:25 69 26 30 03/15/20 02:00 66 26 149/76 (100) 100 03/15/20 01:00 76 31 150/90 (110) 99 03/15/20 00:00 98.6 69 26 148/87 (107) 99 03/15/20 00:00 Mechanical Ventilator 03/15/20 00:00 30 03/15/20 00:00 71 03/14/20 23:13 77 26 100 Mechanical Ventilator 30 79 26 30 03/14/20 23:00 65 26 147/75 (99) 100 03/14/20 22:00 67 26 152/84 (106) 100 03/14/20 21:07 98.6 71 26 151/80 (103) 100 03/14/20 21:00 70 26 152/79 (103) 100 03/14/20 20:00 71 03/14/20 20:00 Mechanical Ventilator 03/14/20 20:00 98.8 71 26 153/87 (109) 100 03/14/20 20:00 40 03/14/20 19:28 70 26 30 03/14/20 19:00 70 26 152/76 (101) 100 03/14/20 18:00 76 27 150/78 (102) 99 03/14/20 17:00 70 26 138/84 (102) 100 03/14/20 16:00 Mechanical Ventilator 03/14/20 16:00 72 26 143/79 (100) 100 03/14/20 16:00 93 03/14/20 16:00 40 03/14/20 15:20 88 26 30 03/14/20 15:00 72 26 146/73 (97) 100 03/14/20 14:00 73 26 147/80 (102) 100 03/14/20 13:00 69 26 144/75 (98) 100 03/14/20 12:00 72 26 141/86 (104) 100 03/14/20 12:00 Mechanical Ventilator 03/14/20 12:00 40 03/14/20 11:25 70 03/14/20 11:00 68 26 141/75 (97) 99 Height (Feet): 5 Height (Inches): 7.00 Weight (Pounds): 149 HEENT: status post trach Respiratory/Chest: lungs clear Cardiovascular: normal rate, regular rhythm, no gallop/murmur Abdomen: soft, non tender, other - GT Extremities: no edema Laboratory Tests Test 03/14/20 14:15 03/15/20 03:20 Sodium Level 140 MMOL/L (136-145) 145 MMOL/L (136-145) Potassium Level 3.2 MMOL/L (3.5-5.1) L 3.4 MMOL/L (3.5-5.1) L Chloride Level 110 MMOL/L (98-107) H 112 MMOL/L (98-107) H Carbon Dioxide Level 24 MMOL/L (21-32) 25 MMOL/L (21-32) Anion Gap 6 mmol/L (5-15) 8 mmol/L (5-15) Blood Urea Nitrogen 64 mg/dL (7-18) H 59 mg/dL (7-18) H Creatinine 2.6 MG/DL (0.55-1.30) H 2.6 MG/DL (0.55-1.30) H Estimat Glomerular Filtration Rate 24.1 mL/min (>60) 24.1 mL/min (>60) Glucose Level 108 MG/DL (74-106) H 116 MG/DL (74-106) H Calcium Level 7.4 MG/DL (8.5-10.1) L 7.1 MG/DL (8.5-10.1) L Total Bilirubin 0.3 MG/DL (0.2-1.0) Aspartate Amino Transf (AST/SGOT) 21 U/L (15-37) Alanine Aminotransferase (ALT/SGPT) 13 U/L (12-78) Alkaline Phosphatase 67 U/L (46-116) Total Protein 5.3 G/DL (6.4-8.2) L Albumin 0.9 G/DL (3.4-5.0) L Globulin 4.4 g/dL Albumin/Globulin Ratio 0.2 (1.0-2.7) L White Blood Count 7.5 K/UL (4.8-10.8) Red Blood Count 2.90 M/UL (4.70-6.10) L Hemoglobin 8.8 G/DL (14.2-18.0) L Hematocrit 25.7 % (42.0-52.0) L Mean Corpuscular Volume 89 FL (80-99) Mean Corpuscular Hemoglobin 30.4 PG (27.0-31.0) Mean Corpuscular Hemoglobin Concent 34.2 G/DL (32.0-36.0) Red Cell Distribution Width 14.3 % (11.6-14.8) Platelet Count 152 K/UL (150-450) Mean Platelet Volume 7.3 FL (6.5-10.1) Neutrophils (%) (Auto) 73.1 % (45.0-75.0) Lymphocytes (%) (Auto) 14.8 % (20.0-45.0) L Monocytes (%) (Auto) 7.7 % (1.0-10.0) Eosinophils (%) (Auto) 3.8 % (0.0-3.0) H Basophils (%) (Auto) 0.6 % (0.0-2.0) Magnesium Level 1.5 MG/DL (1.8-2.4) L Current Medications Medications (Trade) Dose Ordered Sig/Lanny Route PRN Reason Start Time Stop Time Status Last Admin Dose Admin Acetaminophen (Tylenol) 650 mg Q6H PRN ORAL MILD/TEMP 03/05/20 08:30 04/04/20 08:29 03/10/20 16:26 Chlorhexidine Gluconate (Kayla-Hex 2%) 1 applic DAILY@1999 TOPIC 03/05/20 21:00 06/03/20 20:59 03/14/20 20:11 Clonidine HCl (Catapres Tab) 0.1 mg Q4H PRN ORAL For High Blood Pressure 03/12/20 08:15 06/10/20 08:14 Colistimethate Sodium (Colistin *inhalation use only*) 75 mg Q12HR@ INH 03/09/20 22:00 03/16/20 21:59 03/15/20 10:44 Epoetin Asaf (Epoetin Asaf-EPBX(NON ESRD)) 3,000 unit FRI-FRI-FRI SUBQ 03/10/20 21:00 06/08/20 20:59 03/13/20 20:55 Epoetin Asaf (Epoetin Asaf-EPBX(NON ESRD)) 4,000 unit FRI-FRI-FRI SUBQ 03/10/20 21:00 06/08/20 20:59 03/13/20 20:55 Levetiracetam 750 mg/Sodium Chloride 117.5 ml @ 470 mls/hr Q12H IV 03/05/20 23:00 04/04/20 22:59 03/14/20 23:15 Levothyroxine Sodium (Synthroid) 125 mcg DAILY IV 03/10/20 09:00 04/09/20 08:59 03/15/20 09:05 Meropenem 500 mg/ Sodium Chloride 55 ml @ 110 mls/hr EVERY 12 HOURS IVPB 03/09/20 12:00 03/18/20 23:59 03/15/20 09:05 Metoclopramide HCl (Reglan) 5 mg EVERY 6 HOURS IVP 03/08/20 12:00 04/07/20 11:59 03/15/20 06:36 Pantoprazole 80 mg/Sodium Chloride 250 ml @ 25 mls/hr Q10H IV 03/05/20 12:30 04/04/20 12:29 03/15/20 02:28 Phenylephrine HCl 100 mg/Dextrose 250 ml @ 0 mls/hr Q24H IV 03/06/20 09:45 04/05/20 09:44 03/06/20 21:05 Sodium Bicarbonate 50 ml/ Dextrose 1,050 ml @ 75 mls/hr Q14H IV 03/11/20 11:00 04/10/20 10:59 03/14/20 22:26 Zinc Oxide (Zinc Oxide) 1 applic EVERY 8 HOURS TOPIC 03/14/20 22:00 06/09/20 12:44 03/15/20 06:36 Isaak Hair MD Mar 15, 2020 10:57"
[2020-03-15] MEDS: Sodium Bicarbonate 50 ML in D5W 1000ml 1,000 ML IV SCH (11:00)
--- NOTE | 2020-03-15 14:34 | Surgery Progress Note ---
Surgery Progress Note Subjective Additional Comments potential repeat scope tomorrow no n/v no bleeding h/h noted Objective Last 24 Hour Vital Signs Date Time Temp Pulse Resp B/P (MAP) Pulse Ox O2 Delivery O2 Flow Rate FiO2 03/15/20 14:00 77 26 150/78 (102) 98 03/15/20 13:26 98 29 99 Mechanical Ventilator 40 03/15/20 13:00 69 26 165/80 (108) 100 03/15/20 12:00 Mechanical Ventilator 03/15/20 12:00 30 03/15/20 12:00 99.1 68 26 165/78 (107) 100 03/15/20 11:21 70 26 100 Mechanical Ventilator 30 72 26 30 03/15/20 11:00 65 26 155/76 (102) 100 03/15/20 10:00 71 28 153/80 (104) 99 03/15/20 09:05 151/75 03/15/20 09:00 69 28 151/75 (100) 100 03/15/20 08:00 Mechanical Ventilator 03/15/20 08:00 30 03/15/20 08:00 99.0 63 26 152/104 (120) 100 03/15/20 07:28 63 26 30 03/15/20 07:00 75 28 153/81 (105) 100 03/15/20 06:00 69 28 150/74 (99) 99 03/15/20 05:00 69 26 151/77 (101) 100 03/15/20 04:00 Mechanical Ventilator 03/15/20 04:00 70 03/15/20 04:00 30 03/15/20 04:00 98.6 68 26 150/74 (99) 100 03/15/20 03:00 66 26 150/74 (99) 100 03/15/20 02:25 69 26 30 03/15/20 02:00 66 26 149/76 (100) 100 03/15/20 01:00 76 31 150/90 (110) 99 03/15/20 00:00 98.6 69 26 148/87 (107) 99 03/15/20 00:00 Mechanical Ventilator 03/15/20 00:00 30 03/15/20 00:00 71 03/14/20 23:13 77 26 100 Mechanical Ventilator 30 79 26 30 03/14/20 23:00 65 26 147/75 (99) 100 03/14/20 22:00 67 26 152/84 (106) 100 03/14/20 21:07 98.6 71 26 151/80 (103) 100 03/14/20 21:00 70 26 152/79 (103) 100 03/14/20 20:00 71 03/14/20 20:00 Mechanical Ventilator 03/14/20 20:00 98.8 71 26 153/87 (109) 100 03/14/20 20:00 40 03/14/20 19:28 70 26 30 03/14/20 19:00 70 26 152/76 (101) 100 03/14/20 18:00 76 27 150/78 (102) 99 03/14/20 17:00 70 26 138/84 (102) 100 03/14/20 16:00 Mechanical Ventilator 03/14/20 16:00 72 26 143/79 (100) 100 03/14/20 16:00 93 03/14/20 16:00 40 03/14/20 15:20 88 26 30 03/14/20 15:00 72 26 146/73 (97) 100 I&O Intake and Output 03/14/20 03/15/20 19:00 07:00 Intake Total 1722.5 ml 2492 ml Output Total 555 ml 630 ml Balance 1167.5 ml 1862 ml Free Water 100 ml IV Total 1482.5 ml 1782 ml Tube Feeding 240 ml 360 ml Blood Product 250 ml Output Urine Total 405 ml 580 ml Stool Total 150 ml 50 ml # Bowel Movements 3 3 Cardiovascular: RSR Respiratory: decreased breath sounds Abdomen: soft, non-tender, present bowel sounds Extremities: no tenderness, no cyanosis Laboratory Tests Test 03/15/20 03:20 White Blood Count 7.5 K/UL (4.8-10.8) Red Blood Count 2.90 M/UL (4.70-6.10) L Hemoglobin 8.8 G/DL (14.2-18.0) L Hematocrit 25.7 % (42.0-52.0) L Mean Corpuscular Volume 89 FL (80-99) Mean Corpuscular Hemoglobin 30.4 PG (27.0-31.0) Mean Corpuscular Hemoglobin Concent 34.2 G/DL (32.0-36.0) Red Cell Distribution Width 14.3 % (11.6-14.8) Platelet Count 152 K/UL (150-450) Mean Platelet Volume 7.3 FL (6.5-10.1) Neutrophils (%) (Auto) 73.1 % (45.0-75.0) Lymphocytes (%) (Auto) 14.8 % (20.0-45.0) L Monocytes (%) (Auto) 7.7 % (1.0-10.0) Eosinophils (%) (Auto) 3.8 % (0.0-3.0) H Basophils (%) (Auto) 0.6 % (0.0-2.0) Sodium Level 145 MMOL/L (136-145) Potassium Level 3.4 MMOL/L (3.5-5.1) L Chloride Level 112 MMOL/L (98-107) H Carbon Dioxide Level 25 MMOL/L (21-32) Anion Gap 8 mmol/L (5-15) Blood Urea Nitrogen 59 mg/dL (7-18) H Creatinine 2.6 MG/DL (0.55-1.30) H Estimat Glomerular Filtration Rate 24.1 mL/min (>60) Glucose Level 116 MG/DL (74-106) H Calcium Level 7.1 MG/DL (8.5-10.1) L Magnesium Level 1.5 MG/DL (1.8-2.4) L Plan Problems: (1) Respiratory failure (2) GIB (gastrointestinal bleeding) Assessment & Plan: 79-year-old male with leukocytosis, anemia, NG tube inserted and bright blood identified. Plan for urgent EGD today. Protonix IV N.p.o. IV fluid resuscitation PRBC transfusion trend labs Care plan discussed with GI will await EGD findings Thank you for let me participate in patient's care will follow with recommendations EGD findings noted discussed with GI NG tube placed Continuous gastric irrigation and suction initiated plan for repeat scope soon repeat scope noted unchanged cannot remove clot CT reviewed surgery too high risk no active bleeding trend h/h start tf plan to repeat scope next week discussed with GI hold on surgery There is a rectal tube in place. The balloon is likely inflated within the anal canal rather than the distal rectum. There is marked rectal wall thickening and considerable edema of the perirectal fat. Prominent gas-filled right upper quadrant bowel seen on recent plain radiographs is demonstrated to be the cecum. Although the sacrum appears quite wide in transver se dimension (approximately 11.5 cm) it is not particularly distended in the AP plane, measuring 4.9 cm AP. The anatomy of the ascending colon and hepatic flexure is not well-defined, and it is unclear whether this represents a possible cecal bascule versus an unusually positioned but otherwise normal cecum. No definite wall thickening is evident. The terminal ileum is normal in caliber or collapsed. The remainder of the small bowel appears mildly dilated, gas and fluid-filled, and the transition point appears to be gradual. No definite small bowel wall thickening. There is a gastrostomy tube which appears to be well positioned at the gastric antrum body junction.. The stomach is distended. The gastric antrum and proximal duodenum appears somewhat thick walled. Ingested contrast has traversed a portion of the proximal small bowel. There is considerable material dependently within the stomach, displacing the ingested contrast. Surgical clips are seen in the mesenteric root inferior to the pancreatic tail and anterior to the proximal jejunum There is moderate free intraperitoneal fluid. No free intraperitoneal gas is demonstrated. Lack of IV contrast limits assessment of the solid organs. The liver, gallbladder, bile ducts, pancreas, spleen, adrenals, right kidney are unremarkable. Left kidney demonstrates a lower pole cyst. The bladder is mildly distended, and minimally thick-walled. There are bilateral right greater than left pleural effusions. There is bilateral basilar pulmonary parenchymal consolidation and/or edema consolidation. The heart is upper limits normal in size. There is extensive edema of the subcutaneous fat, less extensive edema of the mesenteric and retroperitoneal fat. The bones demonstrate a compression fracture deformity of the L1 vertebral body. There are degenerative changes at the lumbosacral junction. Impression: Poorly delineated cecal and ascending colon anatomy. Dilated bowel loop in the right upper quadrant seen on recent plain radiograph is demonstrated to be the cecum. It is dilated, although less severely than is suggested by the plain radiograph. The tip of the cecum is pointed cephalad. There is also dilatation of most of the small bowel, which is dilated, gas and fluid-filled, but the terminal ileum is nondilated. There is not a definite abrupt transition point. Findings may be purely on the basis of ileus with variant cecal anatomy and unusual hepato- colonic interposition, but the possibility of a cecal bascule or internal hernia causing ascending colon and/or distal small bowel obstruction should also be considered. Rectal tube balloon is dilated within the anal canal. Recommend deflation and repositioning Wall thickening of the distal sigmoid and rectum, with edema of the perirectal/perisigmoid fat, concerning for colitis. Distended stomach. Given stated clinical history of GI bleeding, material within the gastric fundus displacing the contrast likely represents blood clots, but any of this could also represent an endophytic mass lesion. There is no rand gastric fundal wall thickening. There is some wall thickening of the gastric antrum and duodenum, although this could in part be an artifact of lack of distention. Gastrostomy is in good position Moderate ascites Bilateral pleural effusions. Bilateral parenchymal consolidation, may reflect pulmonary edema versus parenchymal infiltrates Other evidence of anasarca, with diffuse edema of the subcutaneous fat, less severe edema of the abdominal fat L1 vertebral body compression fracture, age-indeterminate Other findings as noted, including degenerative spondylosis, left lower pole renal cyst. (3) Aspiration pneumonia (4) Sepsis (5) ARF (acute renal failure) (6) HCAP (healthcare-associated pneumonia) (7) Dehydration (8) Hypokalemia (9) Hyperkalemia (10) Anemia (11) Decubitus skin ulcer Assessment & Plan: Pt presented on admission with gross contractures, Multiple Pressure Injuries, Tracheostomy. Skin Assessed under tracheal collar and no evidence of skin breakdown noted. Tear noted to urinary meatus- no exudate noted. Scrotum is erythematous with scattered satellite lesions. Large ulcer noted to R scrotal sac (L)4cm x (W)4.6cm. Base of wound is erythematous ,moist with Biofilm. Sacral DTPI with clusters of small islands of slough with surrounding maroon and indurated areas (L)8cm x (W)12cm.Mild Odor noted. Partial thickness Pressure Injury Upper/outer R buttocks(L)1.8cm x (W)1.3cm. Base of wound is moist and viable. Edges adherent to base of wound. Surrounding non-blanching erythema with scattered areas of shearing noted. Partial thickness Pressure Inferior lower R buttocks.(L)0.8cm x (W)1.2cm. Base of wound is moist and viable. Edges adherent to base of wound. Surrounding non- blanching erythema with scattered shearing noted extending into R ischial tuberosity. Clusters of small hyperpigmentation noted to L trochanteric and L ischial tubero sity. R Heel is fluctuant with scattered dry eschar and surrounding Non-Blanchable erythema.(L)6.5cm x (W)8cm. DTPI distal/lateral R foot(L)3cm x (W)3cm. Base of wound is maroon and fluctuant. dry eschar noted to tip of R 1st metatarsal with surrounding non-blanchable erythema extending dorsally and laterally of metatarsal(L)5cm x (W)1.3cm Non-Blanchable erythema that is fluctuant at base noted to dorso/lateral L 5th metatarsal(L)0.6cm x (W)0.3cm. L Heel is boggy with non-blanchable erythema laterally. Hyperpigmentation from previous wound noted at L heel. Tx.Plan: Cleanse Sacral wound with Saline. Apply TheraHoney to slough. Apply Moisture Barrier Paste periwound. Cover with Optifoam drsg. Change daily and prn. Apply Moisture Barrier Paste to Wounds R upper and lower R Buttocks. Cover each wound with Optifoam drsg. Change every 3 days and prn. Apply Zinc Oxide Paste to Scrotal Wounds TID and prn. Apply Betadine to wounds R heel and R foot . Cover with ABD Pads and wrap with Kerlix every 3 days and prn. Apply Betadine to L foot. Cover with ABD Pads and wrap with Kerlix every 3 days and prn. Cover Bony Prominences as needed with Optifoam drsgs. Reposition at least every 2hours or as tolerated. Off-load heels with pillow. 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
[2020-03-15] MEDS ORDERED: Tubing Blood Filter IV ONE (16:12)
[2020-03-15] MEDS ORDERED: Tubing IV Secondary IV ONE (16:12)
[2020-03-15] MEDS ORDERED: NS 275ml ONE (16:12)
--- NOTE | 2020-03-15 16:18 | General Progress Note ---
Subjective ROS Limited/Unobtainable: Yes Constitutional: Reports: malaise, weakness HEENT: Reports: no symptoms Cardiovascular: Reports: edema Respiratory: Reports: cough, shortness of breath Gastrointestinal/Abdominal: Reports: blood in stool, difficulty swallowing Genitourinary: Reports: no symptoms Neurologic/Psychiatric: Reports: pre-existing deficit, seizure Endocrine: Reports: no symptoms Hematologic/Lymphatic: Reports: anemia Allergies: Coded Allergies: No Known Allergies (Unverified , 02/23/12) All Systems: reviewed and negative except above Subjective no events. decrease bloody/dark output from rectal tube. h/h stable. tolerating feeds. no szs. poorly responsive on the vent. Objective Last 24 Hour Vital Signs Date Time Temp Pulse Resp B/P (MAP) Pulse Ox O2 Delivery O2 Flow Rate FiO2 03/15/20 16:00 Mechanical Ventilator 03/15/20 16:00 30 03/15/20 16:00 99.0 64 26 137/71 (93) 99 03/15/20 15:00 71 26 152/77 (102) 99 03/15/20 14:00 77 26 150/78 (102) 98 03/15/20 13:26 98 29 99 Mechanical Ventilator 40 03/15/20 13:00 69 26 165/80 (108) 100 03/15/20 12:00 Mechanical Ventilator 03/15/20 12:00 30 03/15/20 12:00 99.1 68 26 165/78 (107) 100 03/15/20 11:21 70 26 100 Mechanical Ventilator 30 72 26 30 03/15/20 11:00 65 26 155/76 (102) 100 03/15/20 10:00 71 28 153/80 (104) 99 03/15/20 09:05 151/75 03/15/20 09:00 69 28 151/75 (100) 100 03/15/20 08:00 Mechanical Ventilator 03/15/20 08:00 30 03/15/20 08:00 99.0 63 26 152/104 (120) 100 03/15/20 07:28 63 26 30 03/15/20 07:00 75 28 153/81 (105) 100 03/15/20 06:00 69 28 150/74 (99) 99 03/15/20 05:00 69 26 151/77 (101) 100 03/15/20 04:00 Mechanical Ventilator 03/15/20 04:00 70 03/15/20 04:00 30 03/15/20 04:00 98.6 68 26 150/74 (99) 100 03/15/20 03:00 66 26 150/74 (99) 100 03/15/20 02:25 69 26 30 03/15/20 02:00 66 26 149/76 (100) 100 03/15/20 01:00 76 31 150/90 (110) 99 03/15/20 00:00 98.6 69 26 148/87 (107) 99 03/15/20 00:00 Mechanical Ventilator 03/15/20 00:00 30 03/15/20 00:00 71 03/14/20 23:13 77 26 100 Mechanical Ventilator 30 79 26 30 03/14/20 23:00 65 26 147/75 (99) 100 03/14/20 22:00 67 26 152/84 (106) 100 03/14/20 21:07 98.6 71 26 151/80 (103) 100 03/14/20 21:00 70 26 152/79 (103) 100 03/14/20 20:00 71 03/14/20 20:00 Mechanical Ventilator 03/14/20 20:00 98.8 71 26 153/87 (109) 100 03/14/20 20:00 40 03/14/20 19:28 70 26 30 03/14/20 19:00 70 26 152/76 (101) 100 03/14/20 18:00 76 27 150/78 (102) 99 03/14/20 17:00 70 26 138/84 (102) 100 Intake and Output 03/14/20 03/15/20 19:00 07:00 Intake Total 1722.5 ml 2492 ml Output Total 555 ml 630 ml Balance 1167.5 ml 1862 ml Free Water 100 ml IV Total 1482.5 ml 1782 ml Tube Feeding 240 ml 360 ml Blood Product 250 ml Output Urine Total 405 ml 580 ml Stool Total 150 ml 50 ml # Bowel Movements 3 3 Laboratory Tests 03/15/20 03:20: White Blood Count 7.5, Red Blood Count 2.90L, Hemoglobin 8.8L, Hematocrit 25.7L, Mean Corpuscular Volume 89, Mean Corpuscular Hemoglobin 30.4, Mean Corpuscular Hemoglobin Concent 34.2, Red Cell Distribution Width 14.3, Platelet Count 152, Mean Platelet Volume 7.3, Neutrophils (%) (Auto) 73.1, Lymphocytes (%) (Auto) 14.8L, Monocytes (%) (Auto) 7.7, Eosinophils (%) (Auto) 3.8H, Basophils (%) (Auto) 0.6, Sodium Level 145, Potassium Level 3.4L, Chloride Level 112H, Carbon Dioxide Level 25, Anion Gap 8, Blood Urea Nitrogen 59H, Creatinine 2.6H, Estimat Glomerular Filtration Rate 24.1, Glucose Level 116H, Calcium Level 7.1L, Magnesium Level 1.5L Height (Feet): 5 Height (Inches): 7.00 Weight (Pounds): 149 Objective General Appearance: WD/WN, cachetic, thin EENT: normal ENT inspection Neck: non-tender, normal alignment, supple Cardiovascular: normal rate, regular rhythm Respiratory/Chest: chest wall non-tender, lungs clear, normal breath sounds, no respiratory distress, no accessory muscle use Abdomen: normal bowel sounds, non tender, soft, no organomegaly, no mass Edema: no edema noted Arm (L), no edema noted Arm (R) Neurologic: disoriented, unresponsive, aphasia Skin: normal pigmentation Lymphatic: normal anterior cervical (L), normal anterior cervical (R) Assessment/Plan Problem List: (1) GIB (gastrointestinal bleeding) ICD Codes: K92.2 - Gastrointestinal hemorrhage, unspecified SNOMED: 10055720 (2) Sepsis ICD Codes: A41.9 - Sepsis, unspecified organism SNOMED: 58293530 Qualifiers: Qualified Codes: A41.9 - Sepsis, unspecified organism; R65.20 - Severe sepsis without septic shock; N17.9 - Acute kidney failure, unspecified (3) Respiratory failure ICD Codes: J96.90 - Respiratory failure, unspecified, unspecified whether with hypoxia or hypercapnia SNOMED: 904323263 Qualifiers: Qualified Codes: J96.01 - Acute respiratory failure with hypoxia (4) Aspiration pneumonia ICD Codes: J69.0 - Pneumonitis due to inhalation of food and vomit SNOMED: 679068932 Qualifiers: Qualified Codes: O74.0 - Aspiration pneumonitis due to anesthesia during labor and delivery (5) HCAP (healthcare-associated pneumonia) ICD Codes: J18.9 - Pneumonia, unspecified organism SNOMED: 104775663, 192772644 (6) ARF (acute renal failure) ICD Codes: N17.9 - Acute kidney failure, unspecified SNOMED: 98842218, 754834624 Qualifiers: Qualified Codes: N17.9 - Acute kidney failure, unspecified Status: stable, unchanged Assessment/Plan: follow up labs transfuse as needed IVF per renal protonix and octreotide drips vent support resp rx thyroid replacement monitor sz ke iv bp rx possible egd tomorrow replace lytes as needed full code per Jimi Martinez MD Mar 15, 2020 16:18
--- NOTE | 2020-03-15 17:30 | Nephrology Progress Note ---
Assessment/Plan Plan Acute Oliguric ARF Severe Metabolic Acidosis MOF VDRF Seizure DO Urosepsis Anemia, mostly of CKD - JJ Hypokalemia, Profound Hypomagnesemia - both due to diarrhea correct. Subjective Subjective Obtunded. Objective Objective Last 24 Hour Vital Signs Date Time Temp Pulse Resp B/P (MAP) Pulse Ox O2 Delivery O2 Flow Rate FiO2 03/15/20 17:00 62 26 135/68 (90) 98 03/15/20 16:00 Mechanical Ventilator 03/15/20 16:00 30 03/15/20 16:00 99.0 64 26 137/71 (93) 99 03/15/20 16:00 70 03/15/20 15:38 66 26 30 03/15/20 15:00 71 26 152/77 (102) 99 03/15/20 14:00 77 26 150/78 (102) 98 03/15/20 13:26 98 29 99 Mechanical Ventilator 40 03/15/20 13:00 69 26 165/80 (108) 100 03/15/20 12:00 Mechanical Ventilator 03/15/20 12:00 30 03/15/20 12:00 99.1 68 26 165/78 (107) 100 03/15/20 12:00 68 03/15/20 11:21 70 26 100 Mechanical Ventilator 30 72 26 30 03/15/20 11:00 65 26 155/76 (102) 100 03/15/20 10:00 71 28 153/80 (104) 99 03/15/20 09:05 151/75 03/15/20 09:00 69 28 151/75 (100) 100 03/15/20 08:00 72 03/15/20 08:00 Mechanical Ventilator 03/15/20 08:00 30 03/15/20 08:00 99.0 63 26 152/104 (120) 100 03/15/20 07:28 63 26 30 03/15/20 07:00 75 28 153/81 (105) 100 03/15/20 06:00 69 28 150/74 (99) 99 03/15/20 05:00 69 26 151/77 (101) 100 03/15/20 04:00 Mechanical Ventilator 03/15/20 04:00 70 03/15/20 04:00 30 03/15/20 04:00 98.6 68 26 150/74 (99) 100 03/15/20 03:00 66 26 150/74 (99) 100 03/15/20 02:25 69 26 30 03/15/20 02:00 66 26 149/76 (100) 100 03/15/20 01:00 76 31 150/90 (110) 99 03/15/20 00:00 98.6 69 26 148/87 (107) 99 03/15/20 00:00 Mechanical Ventilator 03/15/20 00:00 30 03/15/20 00:00 71 03/14/20 23:13 77 26 100 Mechanical Ventilator 30 79 26 30 03/14/20 23:00 65 26 147/75 (99) 100 03/14/20 22:00 67 26 152/84 (106) 100 03/14/20 21:07 98.6 71 26 151/80 (103) 100 03/14/20 21:00 70 26 152/79 (103) 100 03/14/20 20:00 71 03/14/20 20:00 Mechanical Ventilator 03/14/20 20:00 98.8 71 26 153/87 (109) 100 03/14/20 20:00 40 03/14/20 19:28 70 26 30 03/14/20 19:00 70 26 152/76 (101) 100 03/14/20 18:00 76 27 150/78 (102) 99 Intake and Output 03/14/20 03/15/20 19:00 07:00 Intake Total 1722.5 ml 2492 ml Output Total 555 ml 630 ml Balance 1167.5 ml 1862 ml Free Water 100 ml IV Total 1482.5 ml 1782 ml Tube Feeding 240 ml 360 ml Blood Product 250 ml Output Urine Total 405 ml 580 ml Stool Total 150 ml 50 ml # Bowel Movements 3 3 Laboratory Tests 03/15/20 03:20: White Blood Count 7.5, Red Blood Count 2.90L, Hemoglobin 8.8L, Hematocrit 25.7L, Mean Corpuscular Volume 89, Mean Corpuscular Hemoglobin 30.4, Mean Corpuscular Hemoglobin Concent 34.2, Red Cell Distribution Width 14.3, Platelet Count 152, Mean Platelet Volume 7.3, Neutrophils (%) (Auto) 73.1, Lymphocytes (%) (Auto) 14.8L, Monocytes (%) (Auto) 7.7, Eosinophils (%) (Auto) 3.8H, Basophils (%) (Auto) 0.6, Sodium Level 145, Potassium Level 3.4L, Chloride Level 112H, Carbon Dioxide Level 25, Anion Gap 8, Blood Urea Nitrogen 59H, Creatinine 2.6H, Estimat Glomerular Filtration Rate 24.1, Glucose Level 116H, Calcium Level 7.1L, Magnesium Level 1.5L Height (Feet): 5 Height (Inches): 7.00 Weight (Pounds): 149 Objective On vent. Trach site miroslava. CV Tach. Lungs B ronchi. Abd distended. SNT. BS diminished. E contractures. +2 B edema. Neuro obtunded. Nonfocal. Ayanna Maldonado MD Mar 15, 2020 17:30
[2020-03-15] MEDS: Dyna-Hex 2% Top Sol 2oz TOPIC SCH (20:46)
[2020-03-15] MEDS: Epoetin Alfa-EPBX (NON ESRD)4000 units/ml vial SUBQ SCH (20:46)
[2020-03-15] MEDS: Epoetin Alfa-EPBX (NON ESRD) 3000 units/ml vial SUBQ SCH (20:46)
--- NOTE | 2020-03-15 23:00 | General Progress Note ---
Subjective Allergies: Coded Allergies: No Known Allergies (Unverified , 02/23/12) Subjective above noted Endoscopy scheduled for Objective Last 24 Hour Vital Signs Date Time Temp Pulse Resp B/P (MAP) Pulse Ox O2 Delivery O2 Flow Rate FiO2 03/15/20 21:00 67 27 142/73 (96) 99 03/15/20 21:00 67 27 142/73 (96) 99 03/15/20 20:00 30 03/15/20 20:00 99.4 68 26 144/71 (95) 98 03/15/20 20:00 99.4 68 26 144/71 (95) 98 03/15/20 20:00 Mechanical Ventilator 03/15/20 19:35 72 30 30 03/15/20 19:00 70 26 145/73 (97) 99 03/15/20 18:00 67 26 136/71 (92) 99 03/15/20 17:00 62 26 135/68 (90) 98 03/15/20 16:00 Mechanical Ventilator 03/15/20 16:00 30 03/15/20 16:00 99.0 64 26 137/71 (93) 99 03/15/20 16:00 70 03/15/20 15:38 66 26 30 03/15/20 15:00 71 26 152/77 (102) 99 03/15/20 14:00 77 26 150/78 (102) 98 03/15/20 13:26 98 29 99 Mechanical Ventilator 40 03/15/20 13:00 69 26 165/80 (108) 100 03/15/20 12:00 Mechanical Ventilator 03/15/20 12:00 30 03/15/20 12:00 99.1 68 26 165/78 (107) 100 03/15/20 12:00 68 03/15/20 11:21 70 26 100 Mechanical Ventilator 30 72 26 30 03/15/20 11:00 65 26 155/76 (102) 100 03/15/20 10:00 71 28 153/80 (104) 99 03/15/20 09:05 151/75 03/15/20 09:00 69 28 151/75 (100) 100 03/15/20 08:00 72 03/15/20 08:00 Mechanical Ventilator 03/15/20 08:00 30 03/15/20 08:00 99.0 63 26 152/104 (120) 100 9/16/20 07:28 63 26 30 03/15/20 07:00 75 28 153/81 (105) 100 03/15/20 06:00 69 28 150/74 (99) 99 03/15/20 05:00 69 26 151/77 (101) 100 03/15/20 04:00 Mechanical Ventilator 03/15/20 04:00 70 03/15/20 04:00 30 03/15/20 04:00 98.6 68 26 150/74 (99) 100 03/15/20 03:00 66 26 150/74 (99) 100 03/15/20 02:25 69 26 30 03/15/20 02:00 66 26 149/76 (100) 100 03/15/20 01:00 76 31 150/90 (110) 99 03/15/20 00:00 98.6 69 26 148/87 (107) 99 03/15/20 00:00 Mechanical Ventilator 03/15/20 00:00 30 03/15/20 00:00 71 03/14/20 23:13 77 26 100 Mechanical Ventilator 30 79 26 30 03/14/20 23:00 65 26 147/75 (99) 100 Intake and Output 03/14/20 03/15/20 19:00 07:00 Intake Total 1722.5 ml 2492 ml Output Total 555 ml 630 ml Balance 1167.5 ml 1862 ml Free Water 100 ml IV Total 1482.5 ml 1782 ml Tube Feeding 240 ml 360 ml Blood Product 250 ml Output Urine Total 405 ml 580 ml Stool Total 150 ml 50 ml # Bowel Movements 3 3 Laboratory Tests 03/15/20 03:20: White Blood Count 7.5, Red Blood Count 2.90L, Hemoglobin 8.8L, Hematocrit 25.7L, Mean Corpuscular Volume 89, Mean Corpuscular Hemoglobin 30.4, Mean Corpuscular Hemoglobin Concent 34.2, Red Cell Distribution Width 14.3, Platelet Count 152, Mean Platelet Volume 7.3, Neutrophils (%) (Auto) 73.1, Lymphocytes (%) (Auto) 14.8L, Monocytes (%) (Auto) 7.7, Eosinophils (%) (Auto) 3.8H, Basophils (%) (Auto) 0.6, Sodium Level 145, Potassium Level 3.4L, Chloride Level 112H, Carbon Dioxide Level 25, Anion Gap 8, Blood Urea Nitrogen 59H, Creatinine 2.6H, Estimat Glomerular Filtration Rate 24.1, Glucose Level 116H, Calcium Level 7.1L, Magnesium Level 1.5L Height (Feet): 5 Height (Inches): 7.00 Weight (Pounds): 149 Objective Debilitated unresponsive man NCAT (+) trach coarse BS RR abd flat , (+) GT (+) contractures (+) skin breakdown Assessment/Plan Status: stable, unchanged Assessment/Plan: Assessment - UGI Bleed - large fundus clot - failed EGD x 2 - more stable now - aberrant cecal position on CT - malnutrition / low albumin - resp failure / trach - dysphagia / PEG - multiple contractures - OBS - Anemia - Azotemia - improving sepsis Recommendations - Continue tube feeds - Replace K/Mg - EGD rescheduled for FRIDAY - PPI - follow labs - DPOA to decide on level of care Clive Kuo MD Mar 15, 2020 23:00
[2020-03-16] VITALS (24 sets, daily range): BP systolic 147–158; BP diastolic 74–91
[2020-03-16] MEDS: Metoclopramide 10mg/2ml Inj IVP SCH ×5 (00:26→23:10)
[2020-03-16] MEDS: Sodium Bicarbonate 50 ML in D5W 1000ml 1,000 ML IV SCH ×2 (01:22→17:22)
--- NOTE | 2020-03-16 03:02 | Cardiology Progress Note ---
Subjective DATE OF SERVICE: Mar 15, 2020 On vent via trach Still with small amount of GI blood loss, but hemoglobin stabilizing. On IV fluids BP trend stabilized Monitor: sinus/sinus tachycardia Objective Last 24 Hour Vital Signs Date Time Temp Pulse Resp B/P (MAP) Pulse Ox O2 Delivery O2 Flow Rate FiO2 03/16/20 01:00 74 24 153/77 (102) 99 03/16/20 00:00 Mechanical Ventilator 03/16/20 00:00 30 03/16/20 00:00 98.7 73 24 151/74 (99) 99 03/15/20 23:16 68 26 30 03/15/20 23:00 71 26 147/76 (99) 99 03/15/20 22:00 68 26 143/70 (94) 99 03/15/20 21:00 67 27 142/73 (96) 99 03/15/20 21:00 67 27 142/73 (96) 99 03/15/20 20:00 30 03/15/20 20:00 99.4 68 26 144/71 (95) 98 03/15/20 20:00 99.4 68 26 144/71 (95) 98 03/15/20 20:00 71 03/15/20 20:00 Mechanical Ventilator 03/15/20 19:35 72 30 30 03/15/20 19:00 70 26 145/73 (97) 99 03/15/20 18:00 67 26 136/71 (92) 99 03/15/20 17:00 62 26 135/68 (90) 98 03/15/20 16:00 Mechanical Ventilator 03/15/20 16:00 30 03/15/20 16:00 99.0 64 26 137/71 (93) 99 03/15/20 16:00 70 03/15/20 15:38 66 26 30 03/15/20 15:00 71 26 152/77 (102) 99 03/15/20 14:00 77 26 150/78 (102) 98 03/15/20 13:26 98 29 99 Mechanical Ventilator 40 03/15/20 13:00 69 26 165/80 (108) 100 03/15/20 12:00 Mechanical Ventilator 03/15/20 12:00 30 03/15/20 12:00 99.1 68 26 165/78 (107) 100 03/15/20 12:00 68 03/15/20 11:21 70 26 100 Mechanical Ventilator 30 72 26 30 03/15/20 11:00 65 26 155/76 (102) 100 03/15/20 10:00 71 28 153/80 (104) 99 03/15/20 09:05 151/75 03/15/20 09:00 69 28 151/75 (100) 100 03/15/20 08:00 72 03/15/20 08:00 Mechanical Ventilator 03/15/20 08:00 30 03/15/20 08:00 99.0 63 26 152/104 (120) 100 03/15/20 07:28 63 26 30 03/15/20 07:00 75 28 153/81 (105) 100 03/15/20 06:00 69 28 150/74 (99) 99 03/15/20 05:00 69 26 151/77 (101) 100 03/15/20 04:00 Mechanical Ventilator 03/15/20 04:00 70 03/15/20 04:00 30 03/15/20 04:00 98.6 68 26 150/74 (99) 100 03/15/20 03:00 66 26 150/74 (99) 100 ROS: unchanged from my dictation of 03/05/20 HEENT: Mechanically Ventilated, Thick Trach secretions RHYTHM: ST LUNGS: bilateral rhonchi CARDIAC: regular rhythm, normal S1 and S2, tachycardia ABDOMEN: normal bowel sounds, non tender, soft, no organomegaly, decreased bowel sounds, slightly distended, G-Tube intact EXTREMITIES: no calf tenderness, pitting edema - dependent Laboratory Tests Test 03/15/20 03:20 White Blood Count 7.5 K/UL (4.8-10.8) Red Blood Count 2.90 M/UL (4.70-6.10) L Hemoglobin 8.8 G/DL (14.2-18.0) L Hematocrit 25.7 % (42.0-52.0) L Mean Corpuscular Volume 89 FL (80-99) Mean Corpuscular Hemoglobin 30.4 PG (27.0-31.0) Mean Corpuscular Hemoglobin Concent 34.2 G/DL (32.0-36.0) Red Cell Distribution Width 14.3 % (11.6-14.8) Platelet Count 152 K/UL (150-450) Mean Platelet Volume 7.3 FL (6.5-10.1) Neutrophils (%) (Auto) 73.1 % (45.0-75.0) Lymphocytes (%) (Auto) 14.8 % (20.0-45.0) L Monocytes (%) (Auto) 7.7 % (1.0-10.0) Eosinophils (%) (Auto) 3.8 % (0.0-3.0) H Basophils (%) (Auto) 0.6 % (0.0-2.0) Sodium Level 145 MMOL/L (136-145) Potassium Level 3.4 MMOL/L (3.5-5.1) L Chloride Level 112 MMOL/L (98-107) H Carbon Dioxide Level 25 MMOL/L (21-32) Anion Gap 8 mmol/L (5-15) Blood Urea Nitrogen 59 mg/dL (7-18) H Creatinine 2.6 MG/DL (0.55-1.30) H Estimat Glomerular Filtration Rate 24.1 mL/min (>60) Glucose Level 116 MG/DL (74-106) H Calcium Level 7.1 MG/DL (8.5-10.1) L Magnesium Level 1.5 MG/DL (1.8-2.4) L Microbiology Date/Time Source Procedure Growth Status 03/15/20 15:05 Nasopharynx SARS-CoV-2 RdRp Gene Assay - Final Complete Assessment/Plan Assessment/Plan Sepsis with shock recovered Respiratory Failure Lactic acidosis resolved Sinus tachycardia/PAFib Acute renal failure Aspiration PNA Leukocytosis Anemia GI Bleeding Dysphagia with GTube Severe protein/calorie malnutrition Hypokalemia Hypomagnesemia Vent support Antimicrobials IVF with bicarb DVT prophylaxis Continue to transfuse PRBC's for hemoglobin below 7 gm/dl. AntiHTN rx prn for now; may need to advance soon. Protein suppl Potassium and magnesium supplement as needed Franko Pineda MD Mar 16, 2020 03:02
[2020-03-16] MEDS: Zinc Oxide Oint 2oz TOPIC SCH ×3 (05:45→22:11)
--- NOTE | 2020-03-16 06:37 | Anethesia Preoperative Eval ---
Anesthesia Pre-op PMH/ROS General Date of Evaluation: Mar 16, 2020 Anesthesiologist: Mario Alberto ASA Score: ASA 4 Mallampati Score Class I : Soft palate, uvula, fauces, pillars visible Class II: Soft palate, uvula, fauces visible Class III: Soft palate, base of uvula visible Class IV: Only hard plate visible Mallampati Classification: Class III Surgeon: Shiela Diagnosis: GI bleed Surgical Procedure: EGD Anesthesia History: none Family History: no anesthesia problems Allergies: Coded Allergies: No Known Allergies (Unverified , 02/23/12) Medications: see eMAR Patient NPO?: Yes NPO Date: Mar 08, 2020 NPO Time: 2019 Past Medical History Cardiovascular: Reports: HTN, CAD, arrhythmia - paroxysmal afib; Denies: IL, valve dz, other Pulmonary: Reports: COPD, other - respiratory failure, aspiration pneumonia, s/p trach; Denies: asthma, BERTHA Gastrointestinal/Genitourinary: Reports: GERD, other - gi bleed, dysphagia; Denies: CRI, ESRD Neurologic/Psychiatric: Reports: dementia, CVA, other - epilepsy; Denies: depression/anxiety, TIA Endocrine: Reports: DM; Denies: hypothyroidism, steroids, other HEENT: Denies: cataract (L), cataract (R), glaucoma, [place] (L), [place] (R), other Hematology/Immune: Reports: anemia - acute on chronic, bleeding disorder; Denies: DVT, other Musculoskeletal/Integumentary: Denies: OA, RA, DJD, DDD, edema, other PSxH Narrative: trach, g-tube Anesthesia Pre-op Phys. Exam Physician Exam Last Vital Signs Date Time Temp Pulse Resp B/P (MAP) Pulse Ox O2 Delivery O2 Flow Rate FiO2 03/16/20 05:00 69 12 149/77 (101) 98 03/16/20 04:00 98.6 03/16/20 04:00 Mechanical Ventilator 03/16/20 03:20 30 Constitutional: NAD, other - trach in place, on mechanical ventilator, pitting edema bilaterally Cardiovascular: other - irregular rhythm Respiratory: other - ronchi bilaterally Airway Exam Mallampati Score: Class III MO: limited ROM: limited Anesthesia Pre-op A/P Labs see chart Studies Pre-op Studies: EKG - afib, CXR - Increasing bilateral pleural effusions and possible basilar consolidations, echo - EF 65%, Mild aortic regurgitation. Risk Assessment & Plan Assessment: ASA IV Plan: GA Status Change Before Surgery: No Pre-Antibiotics Drug: N/A Silva Llanes MD Mar 16, 2020 06:37
--- NOTE | 2020-03-16 07:08 | General Progress Note ---
Subjective ROS Limited/Unobtainable: Yes Constitutional: Reports: malaise, weakness HEENT: Reports: no symptoms Cardiovascular: Reports: no symptoms Respiratory: Reports: shortness of breath, sputum Gastrointestinal/Abdominal: Reports: difficulty swallowing Genitourinary: Reports: no symptoms Neurologic/Psychiatric: Reports: pre-existing deficit, seizure Endocrine: Reports: no symptoms Hematologic/Lymphatic: Reports: anemia Allergies: Coded Allergies: No Known Allergies (Unverified , 02/23/12) All Systems: reviewed and negative except above Subjective no events. still with small amount of dark/black stool in rectal tube. off pressors. on the vent. poorly responsive at baseline. no fevers. on protonix drip. no reports of szs. Objective Last 24 Hour Vital Signs Date Time Temp Pulse Resp B/P (MAP) Pulse Ox O2 Delivery O2 Flow Rate FiO2 03/16/20 06:00 68 26 147/77 (100) 99 03/16/20 05:00 69 12 149/77 (101) 98 03/16/20 04:00 98.6 67 26 155/77 (103) 100 03/16/20 04:00 Mechanical Ventilator 03/16/20 04:00 73 03/16/20 03:20 72 27 30 03/16/20 03:00 67 23 151/79 (103) 100 03/16/20 02:00 66 26 151/79 (103) 99 03/16/20 01:00 74 24 153/77 (102) 99 03/16/20 00:00 Mechanical Ventilator 03/16/20 00:00 30 03/16/20 00:00 85 03/16/20 00:00 98.7 73 24 151/74 (99) 99 03/15/20 23:16 68 26 30 03/15/20 23:00 71 26 147/76 (99) 99 03/15/20 22:00 68 26 143/70 (94) 99 03/15/20 21:00 67 27 142/73 (96) 99 03/15/20 21:00 67 27 142/73 (96) 99 03/15/20 20:00 30 03/15/20 20:00 99.4 68 26 144/71 (95) 98 03/15/20 20:00 99.4 68 26 144/71 (95) 98 03/15/20 20:00 71 03/15/20 20:00 Mechanical Ventilator 03/15/20 19:35 72 30 30 03/15/20 19:00 70 26 145/73 (97) 99 03/15/20 18:00 67 26 136/71 (92) 99 03/15/20 17:00 62 26 135/68 (90) 98 03/15/20 16:00 Mechanical Ventilator 03/15/20 16:00 30 03/15/20 16:00 99.0 64 26 137/71 (93) 99 03/15/20 16:00 70 03/15/20 15:38 66 26 30 03/15/20 15:00 71 26 152/77 (102) 99 03/15/20 14:00 77 26 150/78 (102) 98 03/15/20 13:26 98 29 99 Mechanical Ventilator 40 03/15/20 13:00 69 26 165/80 (108) 100 03/15/20 12:00 Mechanical Ventilator 03/15/20 12:00 30 03/15/20 12:00 99.1 68 26 165/78 (107) 100 03/15/20 12:00 68 03/15/20 11:21 70 26 100 Mechanical Ventilator 30 72 26 30 03/15/20 11:00 65 26 155/76 (102) 100 03/15/20 10:00 71 28 153/80 (104) 99 03/15/20 09:05 151/75 03/15/20 09:00 69 28 151/75 (100) 100 03/15/20 08:00 72 03/15/20 08:00 Mechanical Ventilator 03/15/20 08:00 30 03/15/20 08:00 99.0 63 26 152/104 (120) 100 03/15/20 07:28 63 26 30 Intake and Output 03/15/20 03/16/20 19:00 07:00 Intake Total 1712.5 ml 1879 ml Output Total 885 ml 850 ml Balance 827.5 ml 1029 ml Free Water 100 ml IV Total 1272.5 ml 1659 ml Tube Feeding 360 ml 120 ml Other 80 ml Output Urine Total 835 ml 800 ml Stool Total 50 ml 50 ml Height (Feet): 5 Height (Inches): 7.00 Weight (Pounds): 124 Objective General Appearance: WD/WN, cachetic, thin EENT: normal ENT inspection Neck: non-tender, normal alignment, supple Cardiovascular: normal rate, regular rhythm Respiratory/Chest: chest wall non-tender, lungs clear, normal breath sounds, no respiratory distress, no accessory muscle use Abdomen: normal bowel sounds, non tender, soft, no organomegaly, no mass Edema: no edema noted Arm (L), no edema noted Arm (R) Neurologic: disoriented, unresponsive, aphasia Skin: normal pigmentation Lymphatic: normal anterior cervical (L), normal anterior cervical (R) Assessment/Plan Problem List: (1) GIB (gastrointestinal bleeding) ICD Codes: K92.2 - Gastrointestinal hemorrhage, unspecified SNOMED: 41734544 (2) Sepsis ICD Codes: A41.9 - Sepsis, unspecified organism SNOMED: 94583805 Qualifiers: Qualified Codes: A41.9 - Sepsis, unspecified organism; R65.20 - Severe sepsis without septic shock; N17.9 - Acute kidney failure, unspecified (3) Respiratory failure ICD Codes: J96.90 - Respiratory failure, unspecified, unspecified whether with hypoxia or hypercapnia SNOMED: 651852427 Qualifiers: Qualified Codes: J96.01 - Acute respiratory failure with hypoxia (4) Aspiration pneumonia ICD Codes: J69.0 - Pneumonitis due to inhalation of food and vomit SNOMED: 607240718 Qualifiers: Qualified Codes: O74.0 - Aspiration pneumonitis due to anesthesia during labor and delivery (5) HCAP (healthcare-associated pneumonia) ICD Codes: J18.9 - Pneumonia, unspecified organism SNOMED: 339781939, 901979299 (6) ARF (acute renal failure) ICD Codes: N17.9 - Acute kidney failure, unspecified SNOMED: 61117850, 726878659 Qualifiers: Qualified Codes: N17.9 - Acute kidney failure, unspecified Status: stable, unchanged Assessment/Plan: follow up labs transfuse as needed IVF per renal protonix drip vent support resp rx thyroid replacement monitor ganga brumfield iv bp rx possible egd today replace lytes as needed full code per Jimi Martinez MD Mar 16, 2020 07:07
--- NOTE | 2020-03-16 08:04 | Critical Care Progress Note ---
Assessment/Plan Assessment/Plan Upper GI bleed Anemia due to acute blood loss H/o GERD, previous G tube Chronic Tracheostomy, Respiratory failure with elevatedCO2 Aspiration pneumonia Sepsis Renal insufficiency, hyperkalemia, metabolic acidosis Previous Pseudomonal Pneumonia H/o Paroxysmal Atrial Fibrillation Diabetes CRI Anemia s/p transfusion Prev CVA Chronic encephalopathy Seizure history Hypothyroidism Tachycardia pleural effusions anasarca with ascites rectal tube PLAN care noted in detail IV antibiotics noted respiratory noted- vent assessed Ventilatory support as is off load and position change replace lytes as needed monitor fluid balance pressors off as able SNF meds noted supportive care GI recommendations suction and monitor secretions no wean planned full support for now oxygen therapy prognosis poor for recovery monitor need for transfusion and further interventions as needed full code medications/laboratory data/nursing notes/ICU care reviewed in detail note reviewed and edited care discussed with RN and RT ICU time spent >40 minutes Critical Care - Subjective Interval Events: care noted no significant bleeding no sz off pressors ROS Limited/Unobtainable: Yes Condition: critical EKG Rhythm: Sinus Rhythm Residuals: minimal Tube Feeding Tolerated: yes I&O: Intake and Output 03/15/20 03/16/20 19:00 07:00 Intake Total 1712.5 ml 1879 ml Output Total 885 ml 850 ml Balance 827.5 ml 1029 ml Free Water 100 ml IV Total 1272.5 ml 1659 ml Tube Feeding 360 ml 120 ml Other 80 ml Output Urine Total 835 ml 800 ml Stool Total 50 ml 50 ml Critical Care - Objective Last 24 Hour Vital Signs Date Time Temp Pulse Resp B/P (MAP) Pulse Ox O2 Delivery O2 Flow Rate FiO2 03/16/20 07:00 73 28 157/78 (104) 100 03/16/20 06:00 68 26 147/77 (100) 99 03/16/20 05:00 69 12 149/77 (101) 98 03/16/20 04:00 98.6 67 26 155/77 (103) 100 03/16/20 04:00 Mechanical Ventilator 03/16/20 04:00 73 03/16/20 03:20 72 27 30 03/16/20 03:00 67 23 151/79 (103) 100 03/16/20 02:00 66 26 151/79 (103) 99 03/16/20 01:00 74 24 153/77 (102) 99 03/16/20 00:00 Mechanical Ventilator 03/16/20 00:00 30 03/16/20 00:00 85 03/16/20 00:00 98.7 73 24 151/74 (99) 99 03/15/20 23:16 68 26 30 03/15/20 23:00 71 26 147/76 (99) 99 03/15/20 22:00 68 26 143/70 (94) 99 03/15/20 21:00 67 27 142/73 (96) 99 03/15/20 21:00 67 27 142/73 (96) 99 03/15/20 20:00 30 03/15/20 20:00 99.4 68 26 144/71 (95) 98 03/15/20 20:00 99.4 68 26 144/71 (95) 98 03/15/20 20:00 71 03/15/20 20:00 Mechanical Ventilator 03/15/20 19:35 72 30 30 03/15/20 19:00 70 26 145/73 (97) 99 03/15/20 18:00 67 26 136/71 (92) 99 03/15/20 17:00 62 26 135/68 (90) 98 03/15/20 16:00 Mechanical Ventilator 03/15/20 16:00 30 03/15/20 16:00 99.0 64 26 137/71 (93) 99 03/15/20 16:00 70 03/15/20 15:38 66 26 30 03/15/20 15:00 71 26 152/77 (102) 99 03/15/20 14:00 77 26 150/78 (102) 98 03/15/20 13:26 98 29 99 Mechanical Ventilator 40 03/15/20 13:00 69 26 165/80 (108) 100 03/15/20 12:00 Mechanical Ventilator 03/15/20 12:00 30 03/15/20 12:00 99.1 68 26 165/78 (107) 100 03/15/20 12:00 68 03/15/20 11:21 70 26 100 Mechanical Ventilator 30 72 26 30 03/15/20 11:00 65 26 155/76 (102) 100 03/15/20 10:00 71 28 153/80 (104) 99 03/15/20 09:05 151/75 03/15/20 09:00 69 28 151/75 (100) 100 Labs: Labs Test 03/14/20 04:00 03/14/20 14:15 03/15/20 03:20 White Blood Count 6.5 K/UL (4.8-10.8) 7.5 K/UL (4.8-10.8) Red Blood Count 2.58 M/UL (4.70-6.10) 2.90 M/UL (4.70-6.10) Hemoglobin 7.7 G/DL (14.2-18.0) 8.8 G/DL (14.2-18.0) Hematocrit 23.2 % (42.0-52.0) 25.7 % (42.0-52.0) Mean Corpuscular Volume 90 FL (80-99) 89 FL (80-99) Mean Corpuscular Hemoglobin 30.0 PG (27.0-31.0) 30.4 PG (27.0-31.0) Mean Corpuscular Hemoglobin Concent 33.5 G/DL (32.0-36.0) 34.2 G/DL (32.0-36.0) Red Cell Distribution Width 14.1 % (11.6-14.8) 14.3 % (11.6-14.8) Platelet Count 122 K/UL (150-450) 152 K/UL (150-450) Mean Platelet Volume 6.1 FL (6.5-10.1) 7.3 FL (6.5-10.1) Neutrophils (%) (Auto) % (45.0-75.0) 73.1 % (45.0-75.0) Lymphocytes (%) (Auto) % (20.0-45.0) 14.8 % (20.0-45.0) Monocytes (%) (Auto) % (1.0-10.0) 7.7 % (1.0-10.0) Eosinophils (%) (Auto) % (0.0-3.0) 3.8 % (0.0-3.0) Basophils (%) (Auto) % (0.0-2.0) 0.6 % (0.0-2.0) Sodium Level 147 MMOL/L (136-145) 140 MMOL/L (136-145) 145 MMOL/L (136-145) Potassium Level 2.9 MMOL/L (3.5-5.1) 3.2 MMOL/L (3.5-5.1) 3.4 MMOL/L (3.5-5.1) Chloride Level 113 MMOL/L (98-107) 110 MMOL/L (98-107) 112 MMOL/L (98-107) Carbon Dioxide Level 26 MMOL/L (21-32) 24 MMOL/L (21-32) 25 MMOL/L (21-32) Anion Gap 8 mmol/L (5-15) 6 mmol/L (5-15) 8 mmol/L (5-15) Blood Urea Nitrogen 63 mg/dL (7-18) 64 mg/dL (7-18) 59 mg/dL (7-18) Creatinine 2.7 MG/DL (0.55-1.30) 2.6 MG/DL (0.55-1.30) 2.6 MG/DL (0.55-1.30) Estimat Glomerular Filtration Rate 23.0 mL/min (>60) 24.1 mL/min (>60) 24.1 mL/min (>60) Glucose Level 113 MG/DL (74-106) 108 MG/DL (74-106) 116 MG/DL (74-106) Calcium Level 7.3 MG/DL (8.5-10.1) 7.4 MG/DL (8.5-10.1) 7.1 MG/DL (8.5-10.1) Total Bilirubin 0.2 MG/DL (0.2-1.0) 0.3 MG/DL (0.2-1.0) Aspartate Amino Transf (AST/SGOT) 28 U/L (15-37) 21 U/L (15-37) Alanine Aminotransferase (ALT/SGPT) 18 U/L (12-78) 13 U/L (12-78) Alkaline Phosphatase 79 U/L (46-116) 67 U/L (46-116) Total Protein 5.3 G/DL (6.4-8.2) 5.3 G/DL (6.4-8.2) Albumin 1.0 G/DL (3.4-5.0) 0.9 G/DL (3.4-5.0) Globulin 4.3 g/dL 4.4 g/dL Albumin/Globulin Ratio 0.2 (1.0-2.7) 0.2 (1.0-2.7) Magnesium Level 1.5 MG/DL (1.8-2.4) Objective: WDWN NAD chronically ill tachypneic reduced breath sounds bilaterally without rhonchi or wheeze [id number] without MRG NABS nontender not distended; GT no CC edema nonfocal contracted line reviewed reviewed and edited Micro: Microbiology Date/Time Source Procedure Growth Status 03/15/20 15:05 Nasopharynx SARS-CoV-2 RdRp Gene Assay - Final Complete Accucheck: 108 Mansoor Martinez MD Mar 16, 2020 08:04
--- NOTE | 2020-03-16 09:11 | Infectious Diseases Prog Note ---
Assessment/Plan Assessment/Plan A 1. pneumonia with Acinetobacter & ESBL Proteus 2. UTI 3. Acute renal failure 4. shock 5. GI bleeding 6. diabetes mellitus 7. Positive blood cultures, likely contamination 8. Anemia P 1. Observe off antibiotic 2. Will have EGD today Subjective ROS Limited/Unobtainable: Yes Constitutional: Denies: fever Allergies: Coded Allergies: No Known Allergies (Unverified , 02/23/12) Objective Last 24 Hour Vital Signs Date Time Temp Pulse Resp B/P (MAP) Pulse Ox O2 Delivery O2 Flow Rate FiO2 03/16/20 07:00 73 28 157/78 (104) 100 03/16/20 06:00 68 26 147/77 (100) 99 03/16/20 05:00 69 12 149/77 (101) 98 03/16/20 04:00 98.6 67 26 155/77 (103) 100 03/16/20 04:00 Mechanical Ventilator 03/16/20 04:00 73 03/16/20 03:20 72 27 30 03/16/20 03:00 67 23 151/79 (103) 100 03/16/20 02:00 66 26 151/79 (103) 99 03/16/20 01:00 74 24 153/77 (102) 99 03/16/20 00:00 Mechanical Ventilator 03/16/20 00:00 30 03/16/20 00:00 85 03/16/20 00:00 98.7 73 24 151/74 (99) 99 03/15/20 23:16 68 26 30 03/15/20 23:00 71 26 147/76 (99) 99 03/15/20 22:00 68 26 143/70 (94) 99 03/15/20 21:00 67 27 142/73 (96) 99 03/15/20 21:00 67 27 142/73 (96) 99 03/15/20 20:00 30 03/15/20 20:00 99.4 68 26 144/71 (95) 98 03/15/20 20:00 99.4 68 26 144/71 (95) 98 03/15/20 20:00 71 03/15/20 20:00 Mechanical Ventilator 03/15/20 19:35 72 30 30 03/15/20 19:00 70 26 145/73 (97) 99 9/16/20 18:00 67 26 136/71 (92) 99 03/15/20 17:00 62 26 135/68 (90) 98 03/15/20 16:00 Mechanical Ventilator 03/15/20 16:00 30 03/15/20 16:00 99.0 64 26 137/71 (93) 99 03/15/20 16:00 70 03/15/20 15:38 66 26 30 03/15/20 15:00 71 26 152/77 (102) 99 03/15/20 14:00 77 26 150/78 (102) 98 03/15/20 13:26 98 29 99 Mechanical Ventilator 40 03/15/20 13:00 69 26 165/80 (108) 100 03/15/20 12:00 Mechanical Ventilator 03/15/20 12:00 30 03/15/20 12:00 99.1 68 26 165/78 (107) 100 03/15/20 12:00 68 03/15/20 11:21 70 26 100 Mechanical Ventilator 30 72 26 30 03/15/20 11:00 65 26 155/76 (102) 100 03/15/20 10:00 71 28 153/80 (104) 99 Height (Feet): 5 Height (Inches): 7.00 Weight (Pounds): 124 HEENT: status post trach Respiratory/Chest: decreased breath sounds, other - on ventilator Cardiovascular: normal rate Abdomen: soft, non tender, other - GT in place Extremities: other - sever edema of hands Skin: ulcers Neurologic/Psychiatric: unresponsiveness Microbiology Date/Time Source Procedure Growth Status 03/15/20 15:05 Nasopharynx SARS-CoV-2 RdRp Gene Assay - Final Complete Current Medications Medications (Trade) Dose Ordered Sig/Lanny Route PRN Reason Start Time Stop Time Status Last Admin Dose Admin Acetaminophen (Tylenol) 650 mg Q6H PRN ORAL MILD/TEMP 03/05/20 08:30 04/04/20 08:29 03/10/20 16:26 Chlorhexidine Gluconate (Kayla-Hex 2%) 1 applic DAILY@1999 TOPIC 03/05/20 21:00 06/03/20 20:59 03/15/20 20:46 Clonidine HCl (Catapres Tab) 0.1 mg Q4H PRN ORAL For High Blood Pressure 03/12/20 08:15 06/10/20 08:14 Epoetin Asaf (Epoetin Asaf-EPBX(NON ESRD)) 3,000 unit SUBQ 03/10/20 21:00 06/08/20 20:59 03/15/20 20:46 Epoetin Asaf (Epoetin Asaf-EPBX(NON ESRD)) 4,000 unit SUBQ 03/10/20 21:00 06/08/20 20:59 03/15/20 20:46 Levetiracetam 750 mg/Sodium Chloride 117.5 ml @ 470 mls/hr Q12H IV 03/05/20 23:00 04/04/20 22:59 03/15/20 22:00 Levothyroxine Sodium (Synthroid) 125 mcg DAILY IV 03/10/20 09:00 04/09/20 08:59 03/15/20 09:05 Metoclopramide HCl (Reglan) 5 mg EVERY 6 HOURS IVP 03/08/20 12:00 04/07/20 11:59 03/16/20 05:48 Pantoprazole 80 mg/Sodium Chloride 250 ml @ 25 mls/hr Q10H IV 03/05/20 12:30 04/04/20 12:29 03/15/20 21:59 Sodium Bicarbonate 50 ml/ Dextrose 1,050 ml @ 75 mls/hr Q14H IV 03/11/20 11:00 04/10/20 10:59 03/16/20 01:22 Zinc Oxide (Zinc Oxide) 1 applic EVERY 8 HOURS TOPIC 03/14/20 22:00 06/09/20 12:44 03/16/20 05:45 Janes Dumas MD Mar 16, 2020 09:11
--- NOTE | 2020-03-16 09:28 | General Progress Note ---
Subjective Allergies: Coded Allergies: No Known Allergies (Unverified , 02/23/12) Subjective above noted Endoscopy scheduled for Today off of TF BM dark and liquid Objective Last 24 Hour Vital Signs Date Time Temp Pulse Resp B/P (MAP) Pulse Ox O2 Delivery O2 Flow Rate FiO2 03/16/20 07:00 73 28 157/78 (104) 100 03/16/20 06:00 68 26 147/77 (100) 99 03/16/20 05:00 69 12 149/77 (101) 98 03/16/20 04:00 98.6 67 26 155/77 (103) 100 03/16/20 04:00 Mechanical Ventilator 03/16/20 04:00 73 03/16/20 03:20 72 27 30 03/16/20 03:00 67 23 151/79 (103) 100 03/16/20 02:00 66 26 151/79 (103) 99 03/16/20 01:00 74 24 153/77 (102) 99 03/16/20 00:00 Mechanical Ventilator 03/16/20 00:00 30 03/16/20 00:00 85 03/16/20 00:00 98.7 73 24 151/74 (99) 99 03/15/20 23:16 68 26 30 03/15/20 23:00 71 26 147/76 (99) 99 03/15/20 22:00 68 26 143/70 (94) 99 03/15/20 21:00 67 27 142/73 (96) 99 03/15/20 21:00 67 27 142/73 (96) 99 03/15/20 20:00 30 03/15/20 20:00 99.4 68 26 144/71 (95) 98 03/15/20 20:00 99.4 68 26 144/71 (95) 98 03/15/20 20:00 71 03/15/20 20:00 Mechanical Ventilator 03/15/20 19:35 72 30 30 03/15/20 19:00 70 26 145/73 (97) 99 03/15/20 18:00 67 26 136/71 (92) 99 03/15/20 17:00 62 26 135/68 (90) 98 03/15/20 16:00 Mechanical Ventilator 03/15/20 16:00 30 03/15/20 16:00 99.0 64 26 137/71 (93) 99 03/15/20 16:00 70 03/15/20 15:38 66 26 30 03/15/20 15:00 71 26 152/77 (102) 99 03/15/20 14:00 77 26 150/78 (102) 98 03/15/20 13:26 98 29 99 Mechanical Ventilator 40 03/15/20 13:00 69 26 165/80 (108) 100 03/15/20 12:00 Mechanical Ventilator 03/15/20 12:00 30 03/15/20 12:00 99.1 68 26 165/78 (107) 100 03/15/20 12:00 68 03/15/20 11:21 70 26 100 Mechanical Ventilator 30 72 26 30 03/15/20 11:00 65 26 155/76 (102) 100 03/15/20 10:00 71 28 153/80 (104) 99 Intake and Output 03/15/20 03/16/20 19:00 07:00 Intake Total 1712.5 ml 1879 ml Output Total 885 ml 850 ml Balance 827.5 ml 1029 ml Free Water 100 ml IV Total 1272.5 ml 1659 ml Tube Feeding 360 ml 120 ml Other 80 ml Output Urine Total 835 ml 800 ml Stool Total 50 ml 50 ml Height (Feet): 5 Height (Inches): 7.00 Weight (Pounds): 124 Objective Debilitated unresponsive man NCAT (+) trach coarse BS RR abd flat , (+) GT (+) contractures (+) skin breakdown Assessment/Plan Status: stable, unchanged Assessment/Plan: Assessment - UGI Bleed - large fundus clot - failed EGD x 2 - more stable now - aberrant cecal position on CT - malnutrition / low albumin - resp failure / trach - dysphagia / PEG - multiple contractures - OBS - Anemia - Azotemia - improving sepsis Recommendations - Resume TF after EGD - Replace K/Mg PRN - EGD today - PPI - follow labs - DPOA to decide on level of care Clive Kuo MD Mar 16, 2020 09:28
--- NOTE | 2020-03-16 09:29 | Pre-Procedure Note/Attestation ---
Pre-Procedure Note/Attestation Complete Prior to Procedure Planned Procedure: not applicable Procedure Narrative: egd Indications for Procedure Pre-Operative Diagnosis: gib Attestation I attest that I discussed the nature of the procedure; its benefits; risks and complications; and alternatives (and the risks and benefits of such alternatives), prior to the procedure, with the patient (or the patient's legal sales representative). I attest that, if there was a reasonable possibility of needing a blood transfusion, the patient (or the patient's legal sales representative) was given the [facility] standardized written summary, pursuant to the Hiren Oscar Blood Safety Act ([place] Health and Safety Code # 1645, as amended). I attest that I re-evaluated the patient just prior to the surgery and that there has been no change in the patient's H&P, except as documented below: Clive Kuo MD Mar 16, 2020 09:29
[2020-03-16] MEDS ORDERED: Pantoprazole Inj ONE (10:05)
[2020-03-16] MEDS: Pantoprazole 80 MG in NS 250 ML IV SCH ×2 (10:18→17:23)
[2020-03-16] MEDS: levETIRAcetam 750 MG in NS 110 ML IV SCH ×2 (10:18→23:09)
--- NOTE | 2020-03-16 10:49 | Surgery Progress Note ---
Surgery Progress Note Subjective Additional Comments EGD scheduled for today labs ntoed exam stable Objective Last 24 Hour Vital Signs Date Time Temp Pulse Resp B/P (MAP) Pulse Ox O2 Delivery O2 Flow Rate FiO2 03/16/20 07:38 67 26 30 03/16/20 07:00 73 28 157/78 (104) 100 03/16/20 06:00 68 26 147/77 (100) 99 03/16/20 05:00 69 12 149/77 (101) 98 03/16/20 04:00 98.6 67 26 155/77 (103) 100 03/16/20 04:00 Mechanical Ventilator 03/16/20 04:00 73 03/16/20 03:20 72 27 30 03/16/20 03:00 67 23 151/79 (103) 100 03/16/20 02:00 66 26 151/79 (103) 99 03/16/20 01:00 74 24 153/77 (102) 99 03/16/20 00:00 Mechanical Ventilator 03/16/20 00:00 30 03/16/20 00:00 85 03/16/20 00:00 98.7 73 24 151/74 (99) 99 03/15/20 23:16 68 26 30 03/15/20 23:00 71 26 147/76 (99) 99 03/15/20 22:00 68 26 143/70 (94) 99 03/15/20 21:00 67 27 142/73 (96) 99 03/15/20 21:00 67 27 142/73 (96) 99 03/15/20 20:00 30 03/15/20 20:00 99.4 68 26 144/71 (95) 98 03/15/20 20:00 99.4 68 26 144/71 (95) 98 03/15/20 20:00 71 03/15/20 20:00 Mechanical Ventilator 03/15/20 19:35 72 30 30 03/15/20 19:00 70 26 145/73 (97) 99 03/15/20 18:00 67 26 136/71 (92) 99 03/15/20 17:00 62 26 135/68 (90) 98 03/15/20 16:00 Mechanical Ventilator 03/15/20 16:00 30 03/15/20 16:00 99.0 64 26 137/71 (93) 99 03/15/20 16:00 70 03/15/20 15:38 66 26 30 03/15/20 15:00 71 26 152/77 (102) 99 03/15/20 14:00 77 26 150/78 (102) 98 03/15/20 13:26 98 29 99 Mechanical Ventilator 40 03/15/20 13:00 69 26 165/80 (108) 100 03/15/20 12:00 Mechanical Ventilator 03/15/20 12:00 30 03/15/20 12:00 99.1 68 26 165/78 (107) 100 03/15/20 12:00 68 03/15/20 11:21 70 26 100 Mechanical Ventilator 30 72 26 30 03/15/20 11:00 65 26 155/76 (102) 100 I&O Intake and Output 03/15/20 03/16/20 19:00 07:00 Intake Total 1712.5 ml 1879 ml Output Total 885 ml 850 ml Balance 827.5 ml 1029 ml Free Water 100 ml IV Total 1272.5 ml 1659 ml Tube Feeding 360 ml 120 ml Other 80 ml Output Urine Total 835 ml 800 ml Stool Total 50 ml 50 ml Dressing: other Wound: other Cardiovascular: RSR Respiratory: decreased breath sounds Abdomen: soft, non-tender, present bowel sounds Extremities: no tenderness, no cyanosis Plan Problems: (1) Respiratory failure (2) GIB (gastrointestinal bleeding) Assessment & Plan: 79-year-old male with leukocytosis, anemia, NG tube inserted and bright blood identified. Plan for urgent EGD today. Protonix IV N.p.o. IV fluid resuscitation PRBC transfusion trend labs Care plan discussed with GI will await EGD findings Thank you for let me participate in patient's care will follow with recommendations EGD findings noted discussed with GI NG tube placed Continuous gastric irrigation and suction initiated plan for repeat scope soon repeat scope noted unchanged cannot remove clot CT reviewed surgery too high risk no active bleeding trend h/h start tf plan to repeat scope next week discussed with GI hold on surgery There is a rectal tube in place. The balloon is likely inflated within the anal canal rather than the distal rectum. There is marked rectal wall thickening and considerable edema of the perirectal fat. Prominent gas-filled right upper quadrant bowel seen on recent plain radiographs is demonstrated to be the cecum. Although the sacrum appears quite wide in transverse dimension (approximately 11.5 cm) it is not particularly distended in the AP plane, measuring 4.9 cm AP. The anatomy of the ascending colon and hepatic flexure is not well-defined, and it is unclear whether this represents a possible cecal bascule versus an unusually positioned but otherwise normal cecum. No definite wall thickening is evident. The terminal ileum is normal in caliber or collapsed. The remainder of the small bowel appears mildly dilated, gas and fluid-filled, and the transition point appears to be gradual. No definite small bowel wall thickening. There is a gastrostomy tube which appears to be well positioned at the gastric antrum body junction.. The stomach is distended. The gastric antrum and proximal duodenum appears somewhat thick walled. Ingested contrast has traversed a portion of the proximal small bowel. There is considerable material dependently within the stomach, displacing the ingested contrast. Surgical clips are seen in the mesenteric root inferior to the pancreatic tail and anterior to the proximal jejunum There is moderate free intraperitoneal fluid. No free intraperitoneal gas is demonstrated. Lack of IV contrast limits assessment of the solid organs. The liver, gallbladder, bile ducts, pancreas, spleen, adrenals, right kidney are unremarkable. Left kidney demonstrates a lower pole cyst. The bladder is mildly distended, and minimally thick-walled. There are bilateral right greater than left pleural effusions. There is bilateral basilar pulmonary parenchymal consolidation and/or edema consolidation. The heart is upper limits normal in size. There is extensive edema of the subcutaneous fat, less extensive edema of the mesenteric and retroperitoneal fat. The bones demonstrate a compression fracture deformity of the L1 vertebral body. There are degenerative changes at the lumbosacral junction. Impression: Poorly delineated cecal and ascending colon anatomy. Dilated bowel loop in the right upper quadrant seen on recent plain radiograph is demonstrated to be the cecum. It is dilated, although less severely than is suggested by the plain radiograph. The tip of the cecum is pointed cephalad. There is also dilatation of most of the small bowel, which is dilated, gas and fluid-filled, but the terminal ileum is nondilated. There is not a definite abrupt transition point. Findings may be purely on the basis of ileus with variant cecal anatomy and unusual hepato- colonic interposition, but the possibility of a cecal bascule or internal hernia causing ascending colon and/or distal small bowel obstruction should also be considered. Rectal tube balloon is dilated within the anal canal. Recommend deflation and repositioning Wall thickening of the distal sigmoid and rectum, with edema of the perirectal/perisigmoid fat, concerning for colitis. Distended stomach. Given stated clinical history of GI bleeding, material within the gastric fundus displacing the contrast likely represents blood clots, but any of this could also represent an endophytic mass lesion. There is no rand gastric fundal wall thickening. There is some wall thickening of the gastric antrum and duodenum, although this could in part be an artifact of lack of distention. Gastrostomy is in good position Moderate ascites Bilateral pleural effusions. Bilateral parenchymal consolidation, may reflect pulmonary edema versus parenchymal infiltrates Other evidence of anasarca, with diffuse edema of the subcutaneous fat, less severe edema of the abdominal fat L1 vertebral body compression fracture, age-indeterminate Other findings as noted, including degenerative spondylosis, left lower pole renal cyst. (3) Aspiration pneumonia (4) Sepsis (5) ARF (acute renal failure) (6) HCAP (healthcare-associated pneumonia) (7) Dehydration (8) Hypokalemia (9) Hyperkalemia (10) Anemia (11) Decubitus skin ulcer Assessment & Plan: Pt presented on admission with gross contractures, Multiple Pressure Injuries, Tracheostomy. Skin Assessed under tracheal collar and no evidence of skin breakdown noted. Tear noted to urinary meatus- no exudate noted. Scrotum is erythematous with scattered satellite lesions. Large ulcer noted to R scrotal sac (L)4cm x (W)4.6cm. Base of wound is erythematous ,moist with Biofilm. Sacral DTPI with clusters of small islands of slough with surrounding maroon and indurated areas (L)8cm x (W)12cm.Mild Odor noted. Partial thickness Pressure Injury Upper/outer R buttocks(L)1.8cm x (W)1.3cm. Base of wound is moist and viable. Edges adherent to base of wound. Surrounding non-blanching erythema with scattered areas of shearing noted. Partial thickness Pressure Inferior lower R buttocks.(L)0.8cm x (W)1.2cm. Base of wound is moist and viable. Edges adherent to base of wound. Surrounding non- blanching erythema with scattered shearing noted extending into R ischial tuberosity. Clusters of small hyperpigmentation noted to L trochanteric and L ischial tuberosity. R Heel is fluctuant with scattered dry eschar and surrounding Non-Blanchable erythema.(L)6.5cm x (W)8cm. DTPI distal/lateral R foot(L)3cm x (W)3cm. Base of wound is maroon and fluctuant. dry eschar noted to tip of R 1st metatarsal with surrounding non-blanchable erythema extending dorsally and laterally of metatarsal(L)5cm x (W)1.3cm Non-Blanchable erythema that is fluctuant at base noted to dorso/lateral L 5th metatarsal(L)0.6cm x (W)0.3cm. L Heel is boggy with non-blanchable erythema laterally. Hyperpigmentation from previous wound noted at L heel. Tx.Plan: Cleanse Sacral wound with Saline. Apply TheraHoney to slough. Apply Moisture Barrier Paste periwound. Cover with Optifoam drsg. Change daily and prn. Apply Moisture Barrier Paste to Wounds R upper and lower R Buttocks. Cover each wound with Optifoam drsg. Change every 3 days and prn. Apply Zinc Oxide Paste to Scrotal Wounds TID and prn. Apply Betadine to wounds R heel and R foot . Cover with ABD Pads and wrap with Kerlix every 3 days and prn. Apply Betadine to L foot. Cover with ABD Pads and wrap with Kerlix every 3 days and prn. Cover Bony Prominences as needed with Optifoam drsgs. Reposition at least every 2hours or as tolerated. Off-load heels with pillow. APM/VIRAL Mattress DAILY ESTIMATED NEEDS: Needs based on Critical care, sepsis 56kg 25-30 kcals/kg 1049-1481 total kcals 1.25-2 g protein/kg 70-112 g total protein 25-30 mL/kg 9650-8548 total fluid mLs NUTRITION DIAGNOSIS: Swallowing difficulty r/ respiratory status as evidenced by pt is vent dep via trach, PEG dep. CURRENT TF:NPO FOR EGD ENTERAL NUTRITION RECOMMENDATIONS: Vital AF 1.2 @ 50ml/hr x 24 hrs to provide 1200ml, 1440kcal, 90g prot, 973ml free water - W/ continued improving renal fxn + consistently low lytes and diarrhea, rec TF change to Vital AF 1.2 (Nepro is no longer necessary) - Rec Vital AF 1.2 @ goal rate of 50ml/hr x 24 hrs - Flush per MD, HOB over 30 degrees IF IV SYNTHROID CHANEGS TO GT SYNTHROID -> Vital AF 1.2 @55ml/hr x22 hrs (hold 1 hr before and after Synthroid) to provide 1210ml, 1452 kcal, 91g pro, 981ml free H2O ADDITIONAL RECOMMENDATIONS: 1) Calibrated bed scale wts as able-> now w/ added P200 mattress 2) Monitor renal labs and lytes -> improving, lytes low, rec TF change as Nepro no longer necessary 3) Wound care: add Vit C 250mg daily . + Kirill BID via GT 4) Rec probiotics for diarrhea . 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
[2020-03-16 10:57] LABS: EOSINOPHILS % (AUTO) 6.5 % (0.0-3.0); HEMATOCRIT 25.1 % (42.0-52.0); HEMOGLOBIN 8.5 G/DL (14.2-18.0); LYMPHOCYTES % (AUTO) 23.8 % (20.0-45.0); MEAN CORPUSCULAR VOLUME 88 FL (80-99); MONOCYTES % (AUTO) 9.2 % (1.0-10.0); NEUTROPHILS % (AUTO) 59.4 % (45.0-75.0); PLATELET COUNT 182 K/UL (150-450); RED BLOOD COUNT 2.83 M/UL (4.70-6.10); RED CELL DISTRIBUTION WIDTH 14.1 % (11.6-14.8); WHITE BLOOD COUNT 7.8 K/UL (4.8-10.8)
[2020-03-16 11:06] LABS: ALBUMIN 0.9 G/DL (3.4-5.0); ALBUMIN/GLOBULIN RATIO 0.2 (1.0-2.7); BILIRUBIN,TOTAL 0.3 MG/DL (0.2-1.0); CALCIUM 7.2 MG/DL (8.5-10.1); CREATININE 2.5 MG/DL (0.55-1.30); POTASSIUM 3.1 MMOL/L (3.5-5.1)
[2020-03-16] MEDS ORDERED: NS 500ML IVPB ONE (11:25)
[2020-03-16] MEDS ORDERED: Lidocaine 1% MPF 10mg/ml 5ml ONE (11:30)
--- NOTE | 2020-03-16 11:49 | Immediate Post-Op Evaluation ---
Immediate Post-Op Evalulation Immediate Post-Op Evalulation Procedure: EGD Date of Evaluation: Mar 16, 2020 Time of Evaluation: 12:09 IV Fluids: 200 NS Blood Products: 0 Estimated Blood Loss: 10 Urinary Output: 0 Blood Pressure Systolic: 153 Blood Pressure Diastolic: 78 Pulse Rate: 71 Respiratory Rate: 20 - Trach Mech Vent O2 Sat by Pulse Oximetry: 97 Temperature (Fahrenheit): 98.6 Pain Score (1-10): 0 Nausea: No Vomiting: No Complications 0 Patient Status: no response, patent, ventilated, none Hydration Status: adequate Cesar Chavez MD Mar 16, 2020 11:49
--- NOTE | 2020-03-16 11:56 | 48 Hour Post Anesthesia Eval ---
Post Anesthesia Evaluation Procedure: EGD Date of Evaluation: Mar 16, 2020 Time of Evaluation: 14:52 Blood Pressure Systolic: 145 0: 78 Pulse Rate: 73 Respiratory Rate: 20 Temperature (Fahrenheit): 98.6 O2 Sat by Pulse Oximetry: 98 Airway: patent Nausea: No Vomiting: No Pain Intensity: 0 Hydration Status: adequate Cardiopulmonary Status: Stable Mental Status/LOC: patient returned to baseline Follow-up Care/Observations: 0 Post-Anesthesia Complications: 0 Follow-up care needed: N/A Cesar Chavez MD Mar 16, 2020 11:56
--- NOTE | 2020-03-16 14:04 | Endoscopy Procedure Note ---
Endoscopy Procedure Note General Indication for Procedure: UGIB Procedures Performed: EGD Operative Findings/Diagnosis: 2 cm healing gastric ulcer Specimen: yes Pt Tolerated Procedure Well: Yes Estimated Blood Loss: none Anesthesia Anesthesiologist: Michael Haro Anesthesia: MAC Medications Medication Given: see anesthesia record Inserted Devices Implant(s) used?: No GI Core Measures 50 yrs or older w/o bx or poly: Not Applicable 10yrs. F/U recommended: Not Applicable Clive Kuo MD Mar 16, 2020 14:04
--- NOTE | 2020-03-16 14:07 | Brief Operative Note ---
Immediate Post Operative Note Operative Note Chief Complaint: UGIB Pre-op Diagnosis: gib Procedure: EGD Post-op Diagnosis: large blood clot in fundus, (+) GT, esophagitis Specimen: yes Complications: none Fluids: per anesthesia Implant(s) used?: No Clive Kuo MD Mar 16, 2020 14:06
--- NOTE | 2020-03-16 16:24 | Nephrology Progress Note ---
Assessment/Plan Plan Acute Oliguric ARF Severe Metabolic Acidosis MOF VDRF Seizure DO Urosepsis Anemia, mostly of CKD - JJ Hypokalemia, Profound Hypomagnesemia - both due to diarrhea correct. Subjective Subjective Obtunded. Objective Objective Last 24 Hour Vital Signs Date Time Temp Pulse Resp B/P (MAP) Pulse Ox O2 Delivery O2 Flow Rate FiO2 03/16/20 16:00 68 26 156/80 (105) 100 03/16/20 16:00 69 03/16/20 15:00 64 26 154/80 (104) 99 03/16/20 14:00 65 26 152/79 (103) 98 03/16/20 13:00 98.6 65 26 148/79 (102) 98 03/16/20 12:00 30 03/16/20 12:00 71 03/16/20 12:00 70 23 148/79 (102) 98 03/16/20 12:00 Mechanical Ventilator 03/16/20 11:56 73 20 98 03/16/20 11:54 71 20 97 03/16/20 11:37 69 26 30 03/16/20 11:00 73 26 153/78 (103) 98 03/16/20 10:00 68 6 147/80 (102) 99 03/16/20 09:00 69 19 151/79 (103) 99 03/16/20 08:00 65 03/16/20 08:00 Mechanical Ventilator 03/16/20 08:00 98.8 80 24 152/80 (104) 99 03/16/20 08:00 30 03/16/20 07:38 67 26 30 03/16/20 07:00 73 28 157/78 (104) 100 03/16/20 06:00 68 26 147/77 (100) 99 03/16/20 05:00 69 12 149/77 (101) 98 03/16/20 04:00 98.6 67 26 155/77 (103) 100 03/16/20 04:00 Mechanical Ventilator 03/16/20 04:00 73 03/16/20 03:20 72 27 30 03/16/20 03:00 67 23 151/79 (103) 100 03/16/20 02:00 66 26 151/79 (103) 99 03/16/20 01:00 74 24 153/77 (102) 99 03/16/20 00:00 Mechanical Ventilator 03/16/20 00:00 30 03/16/20 00:00 85 03/16/20 00:00 98.7 73 24 151/74 (99) 99 03/15/20 23:16 68 26 30 03/15/20 23:00 71 26 147/76 (99) 99 03/15/20 22:00 68 26 143/70 (94) 99 03/15/20 21:00 67 27 142/73 (96) 99 03/15/20 21:00 67 27 142/73 (96) 99 03/15/20 20:00 30 03/15/20 20:00 99.4 68 26 144/71 (95) 98 03/15/20 20:00 99.4 68 26 144/71 (95) 98 03/15/20 20:00 71 03/15/20 20:00 Mechanical Ventilator 03/15/20 19:35 72 30 30 03/15/20 19:00 70 26 145/73 (97) 99 03/15/20 18:00 67 26 136/71 (92) 99 03/15/20 17:00 62 26 135/68 (90) 98 Intake and Output 03/15/20 03/16/20 19:00 07:00 Intake Total 1712.5 ml 1879 ml Output Total 885 ml 850 ml Balance 827.5 ml 1029 ml Free Water 100 ml IV Total 1272.5 ml 1659 ml Tube Feeding 360 ml 120 ml Other 80 ml Output Urine Total 835 ml 800 ml Stool Total 50 ml 50 ml Laboratory Tests 03/16/20 10:15: White Blood Count 7.8, Red Blood Count 2.83L, Hemoglobin 8.5L, Hematocrit 25.1L, Mean Corpuscular Volume 88, Mean Corpuscular Hemoglobin 30.0, Mean Corpuscular Hemoglobin Concent 33.9, Red Cell Distribution Width 14.1, Platelet Count 182, Mean Platelet Volume 6.4L, Neutrophils (%) (Auto) 59.4, Lymphocytes (%) (Auto) 23.8, Monocytes (%) (Auto) 9.2, Eosinophils (%) (Auto) 6.5H, Basophils (%) (Auto) 1.0, Sodium Level 141, Potassium Level 3.1L, Chloride Level 107, Carbon Dioxide Level 29, Anion Gap 5, Blood Urea Nitrogen 55H, Creatinine 2.5H, Estimat Glomerular Filtration Rate 25.2, Glucose Level 98, Calcium Level 7.2L, Magnesium Level 2.0, Total Bilirubin 0.3, Aspartate Amino Transf (AST/SGOT) 24, Alanine Aminotransferase (ALT/SGPT) 13, Alkaline Phosphatase 82, Total Protein 5.1L, Albumin 0.9L, Globulin 4.2, Albumin/Globulin Ratio 0.2L Height (Feet): 5 Height (Inches): 7.00 Weight (Pounds): 124 Objective On vent. Trach site miroslava. CV Tach. Lungs B ronchi. Abd distended. SNT. BS diminished. E contractures. +2 B edema. Neuro obtunded. Nonfocal. Ayanna Maldonado MD Mar 16, 2020 16:24
[2020-03-16] MEDS ORDERED: Acetaminophen 650mg/20.3ml GT PRN (16:45)
[2020-03-16] MEDS: Dyna-Hex 2% Top Sol 2oz TOPIC SCH (19:41)
[2020-03-17] VITALS (22 sets, daily range): BP systolic 131–158; BP diastolic 71–87
--- NOTE | 2020-03-17 01:12 | Cardiology Progress Note ---
Subjective DATE OF SERVICE: Mar 16, 2020 On vent via trach Still with small amount of GI blood loss, but hemoglobin stabilizing. On IV fluids BP trend stabilized; now off pressors Monitor: sinus/sinus tachycardia Objective Last 24 Hour Vital Signs Date Time Temp Pulse Resp B/P (MAP) Pulse Ox O2 Delivery O2 Flow Rate FiO2 03/17/20 01:00 66 16 151/75 (100) 98 03/17/20 00:00 30 03/17/20 00:00 Mechanical Ventilator 03/17/20 00:00 99.4 68 8 156/76 (102) 99 03/17/20 00:00 70 03/16/20 23:44 68 26 30 03/16/20 23:00 67 16 151/74 (99) 99 03/16/20 22:00 69 16 156/79 (104) 99 03/16/20 21:00 69 20 153/77 (102) 99 03/16/20 20:00 Mechanical Ventilator 03/16/20 20:00 66 03/16/20 20:00 98.6 68 16 155/91 (112) 100 03/16/20 20:00 30 03/16/20 19:20 64 26 30 03/16/20 19:00 70 26 154/77 (102) 99 03/16/20 18:00 62 26 158/83 (108) 99 03/16/20 17:00 64 26 157/80 (105) 99 03/16/20 16:00 Mechanical Ventilator 03/16/20 16:00 30 03/16/20 16:00 68 26 156/80 (105) 100 03/16/20 16:00 69 03/16/20 15:46 79 29 30 03/16/20 15:00 64 26 154/80 (104) 99 03/16/20 14:00 65 26 152/79 (103) 98 03/16/20 13:00 98.6 65 26 148/79 (102) 98 03/16/20 12:00 30 03/16/20 12:00 71 03/16/20 12:00 70 23 148/79 (102) 98 03/16/20 12:00 Mechanical Ventilator 03/16/20 11:56 73 20 98 03/16/20 11:54 71 20 97 03/16/20 11:37 69 26 30 03/16/20 11:00 73 26 153/78 (103) 98 03/16/20 10:00 68 6 147/80 (102) 99 03/16/20 09:00 69 19 151/79 (103) 99 03/16/20 08:00 65 03/16/20 08:00 Mechanical Ventilator 03/16/20 08:00 98.8 80 24 152/80 (104) 99 03/16/20 08:00 30 03/16/20 07:38 67 26 30 03/16/20 07:00 73 28 157/78 (104) 100 03/16/20 06:00 68 26 147/77 (100) 99 03/16/20 05:00 69 12 149/77 (101) 98 03/16/20 04:00 98.6 67 26 155/77 (103) 100 03/16/20 04:00 Mechanical Ventilator 03/16/20 04:00 73 03/16/20 03:20 72 27 30 03/16/20 03:00 67 23 151/79 (103) 100 03/16/20 02:00 66 26 151/79 (103) 99 ROS: unchanged from my dictation of 03/05/20 HEENT: Mechanically Ventilated, Thick Trach secretions RHYTHM: ST LUNGS: bilateral rhonchi CARDIAC: regular rhythm, normal S1 and S2, tachycardia ABDOMEN: normal bowel sounds, non tender, soft, no organomegaly, decreased bowel sounds, slightly distended, G-Tube intact EXTREMITIES: no calf tenderness, pitting edema - dependent Laboratory Tests Test 03/16/20 10:15 White Blood Count 7.8 K/UL (4.8-10.8) Red Blood Count 2.83 M/UL (4.70-6.10) L Hemoglobin 8.5 G/DL (14.2-18.0) L Hematocrit 25.1 % (42.0-52.0) L Mean Corpuscular Volume 88 FL (80-99) Mean Corpuscular Hemoglobin 30.0 PG (27.0-31.0) Mean Corpuscular Hemoglobin Concent 33.9 G/DL (32.0-36.0) Red Cell Distribution Width 14.1 % (11.6-14.8) Platelet Count 182 K/UL (150-450) Mean Platelet Volume 6.4 FL (6.5-10.1) L Neutrophils (%) (Auto) 59.4 % (45.0-75.0) Lymphocytes (%) (Auto) 23.8 % (20.0-45.0) Monocytes (%) (Auto) 9.2 % (1.0-10.0) Eosinophils (%) (Auto) 6.5 % (0.0-3.0) H Basophils (%) (Auto) 1.0 % (0.0-2.0) Sodium Level 141 MMOL/L (136-145) Potassium Level 3.1 MMOL/L (3.5-5.1) L Chloride Level 107 MMOL/L (98-107) Carbon Dioxide Level 29 MMOL/L (21-32) Anion Gap 5 mmol/L (5-15) Blood Urea Nitrogen 55 mg/dL (7-18) H Creatinine 2.5 MG/DL (0.55-1.30) H Estimat Glomerular Filtration Rate 25.2 mL/min (>60) Glucose Level 98 MG/DL (74-106) Calcium Level 7.2 MG/DL (8.5-10.1) L Magnesium Level 2.0 MG/DL (1.8-2.4) Total Bilirubin 0.3 MG/DL (0.2-1.0) Aspartate Amino Transf (AST/SGOT) 24 U/L (15-37) Alanine Aminotransferase (ALT/SGPT) 13 U/L (12-78) Alkaline Phosphatase 82 U/L (46-116) Total Protein 5.1 G/DL (6.4-8.2) L Albumin 0.9 G/DL (3.4-5.0) L Globulin 4.2 g/dL Albumin/Globulin Ratio 0.2 (1.0-2.7) L Microbiology Date/Time Source Procedure Growth Status 03/15/20 18:30 Stool Clostridium difficile Toxin Assay - Final Complete 03/15/20 15:05 Nasopharynx SARS-CoV-2 RdRp Gene Assay - Final Complete Assessment/Plan Assessment/Plan Sepsis with shock recovered Respiratory Failure Lactic acidosis resolved Sinus tachycardia/PAFib Acute renal failure Aspiration PNA Leukocytosis Anemia GI Bleeding due to gastric ulcer Dysphagia with GTube Severe protein/calorie malnutrition Hypokalemia Hypomagnesemia Vent support Antimicrobials IVF with bicarb DVT prophylaxis Continue to transfuse PRBC's for hemoglobin below 7 gm/dl. AntiHTN rx prn for now; may need to advance soon. Protein suppl Potassium and magnesium supplement as needed Franko Pineda MD Mar 17, 2020 01:12
[2020-03-17] MEDS: Pantoprazole 80 MG in NS 250 ML IV SCH ×2 (03:45→13:35)
[2020-03-17 04:52] LABS: BASOPHILS % (AUTO) 1.2 % (0.0-2.0); EOSINOPHILS % (AUTO) 4.6 % (0.0-3.0); HEMATOCRIT 25.4 % (42.0-52.0); HEMOGLOBIN 8.7 G/DL (14.2-18.0); LYMPHOCYTES % (AUTO) 19.5 % (20.0-45.0); MEAN CORPUSCULAR VOLUME 88 FL (80-99); MONOCYTES % (AUTO) 9.2 % (1.0-10.0); NEUTROPHILS % (AUTO) 65.4 % (45.0-75.0); PLATELET COUNT 216 K/UL (150-450); RED BLOOD COUNT 2.89 M/UL (4.70-6.10); RED CELL DISTRIBUTION WIDTH 14.5 % (11.6-14.8); WHITE BLOOD COUNT 6.8 K/UL (4.8-10.8)
[2020-03-17 05:15] LABS: ALBUMIN 0.9 G/DL (3.4-5.0); ALBUMIN/GLOBULIN RATIO 0.2 (1.0-2.7); BILIRUBIN,TOTAL 0.3 MG/DL (0.2-1.0); CALCIUM 7.1 MG/DL (8.5-10.1); CREATININE 2.5 MG/DL (0.55-1.30); POTASSIUM 3.4 MMOL/L (3.5-5.1)
[2020-03-17] MEDS: Zinc Oxide Oint 2oz TOPIC SCH ×3 (06:07→21:49)
[2020-03-17] MEDS: Metoclopramide 10mg/2ml Inj IVP SCH ×2 (06:07→13:29)
[2020-03-17] MEDS: Sodium Bicarbonate 50 ML in D5W 1000ml 1,000 ML IV SCH ×2 (06:07→19:24)
--- NOTE | 2020-03-17 08:17 | Critical Care Progress Note ---
Assessment/Plan Assessment/Plan Upper GI bleed Anemia due to acute blood loss H/o GERD, previous G tube Chronic Tracheostomy, Respiratory failure with elevatedCO2 Aspiration pneumonia Sepsis Renal insufficiency, hyperkalemia, metabolic acidosis Previous Pseudomonal Pneumonia H/o Paroxysmal Atrial Fibrillation Diabetes CRI Anemia s/p transfusion Prev CVA Chronic encephalopathy Seizure history Hypothyroidism Tachycardia pleural effusions anasarca with ascites rectal tube PLAN care noted in detail IV antibiotics noted respiratory noted- vent assessed Ventilatory support as is off load and position change replace lytes as needed monitor fluid balance pressors off as able SNF meds noted supportive care GI recommendations suction and monitor secretions no wean planned full support for now oxygen therapy prognosis poor for recovery monitor need for transfusion and further interventions as needed full code medications/laboratory data/nursing notes/ICU care reviewed in detail note reviewed and edited care discussed with RN and RT ICU time spent >40 minutes Critical Care - Subjective Interval Events: care noted and reviewed remains ill on vent ROS Limited/Unobtainable: Yes Condition: critical EKG Rhythm: Sinus Rhythm Residuals: minimal Tube Feeding Tolerated: yes I&O: Intake and Output 03/16/20 03/17/20 19:00 07:00 Intake Total 1824.7 ml 1770.00 ml Output Total 660 ml 1110 ml Balance 1164.7 ml 660.00 ml Free Water 120 ml 120 ml IV Total 1494.7 ml 1290.00 ml Tube Feeding 210 ml 360 ml Output Urine Total 600 ml 1110 ml Stool Total 60 ml Critical Care - Objective Last 24 Hour Vital Signs Date Time Temp Pulse Resp B/P (MAP) Pulse Ox O2 Delivery O2 Flow Rate FiO2 03/17/20 07:15 68 26 30 03/17/20 07:00 69 26 144/80 (101) 98 03/17/20 06:00 70 25 145/78 (100) 98 03/17/20 05:00 70 25 146/74 (98) 98 03/17/20 04:00 Mechanical Ventilator 03/17/20 04:00 30 03/17/20 04:00 74 03/17/20 04:00 98.8 71 26 144/82 (102) 98 03/17/20 03:30 70 26 30 03/17/20 03:00 80 27 144/76 (98) 98 03/17/20 02:00 69 26 151/76 (101) 98 03/17/20 01:00 66 16 151/75 (100) 98 03/17/20 00:00 30 03/17/20 00:00 Mechanical Ventilator 03/17/20 00:00 99.4 68 8 156/76 (102) 99 03/17/20 00:00 70 03/16/20 23:44 68 26 30 03/16/20 23:00 67 16 151/74 (99) 99 03/16/20 22:00 69 16 156/79 (104) 99 03/16/20 21:00 69 20 153/77 (102) 99 03/16/20 20:00 Mechanical Ventilator 03/16/20 20:00 66 03/16/20 20:00 98.6 68 16 155/91 (112) 100 03/16/20 20:00 30 03/16/20 19:20 64 26 30 03/16/20 19:00 70 26 154/77 (102) 99 03/16/20 18:00 62 26 158/83 (108) 99 03/16/20 17:00 64 26 157/80 (105) 99 03/16/20 16:00 Mechanical Ventilator 03/16/20 16:00 30 03/16/20 16:00 68 26 156/80 (105) 100 03/16/20 16:00 69 03/16/20 15:46 79 29 30 03/16/20 15:00 64 26 154/80 (104) 99 03/16/20 14:00 65 26 152/79 (103) 98 03/16/20 13:00 98.6 65 26 148/79 (102) 98 03/16/20 12:00 30 03/16/20 12:00 71 03/16/20 12:00 70 23 148/79 (102) 98 03/16/20 12:00 Mechanical Ventilator 03/16/20 11:56 73 20 98 03/16/20 11:54 71 20 97 03/16/20 11:37 69 26 30 03/16/20 11:00 73 26 153/78 (103) 98 03/16/20 10:00 68 6 147/80 (102) 99 03/16/20 09:00 69 19 151/79 (103) 99 Labs: Labs Test 03/14/20 14:15 03/15/20 03:20 03/16/20 10:03/17/20 04:00 Sodium Level 140 MMOL/L (136-145) 145 MMOL/L (136-145) 141 MMOL/L (136-145) 138 MMOL/L (136-145) Potassium Level 3.2 MMOL/L (3.5-5.1) 3.4 MMOL/L (3.5-5.1) 3.1 MMOL/L (3.5-5.1) 3.4 MMOL/L (3.5-5.1) Chloride Level 110 MMOL/L (98-107) 112 MMOL/L (98-107) 107 MMOL/L (98-107) 106 MMOL/L (98-107) Carbon Dioxide Level 24 MMOL/L (21-32) 25 MMOL/L (21-32) 29 MMOL/L (21-32) 25 MMOL/L (21-32) Anion Gap 6 mmol/L (5-15) 8 mmol/L (5-15) 5 mmol/L (5-15) 7 mmol/L (5-15) Blood Urea Nitrogen 64 mg/dL (7-18) 59 mg/dL (7-18) 55 mg/dL (7-18) 50 mg/dL (7-18) Creatinine 2.6 MG/DL (0.55-1.30) 2.6 MG/DL (0.55-1.30) 2.5 MG/DL (0.55-1.30) 2.5 MG/DL (0.55-1.30) Estimat Glomerular Filtration Rate 24.1 mL/min (>60) 24.1 mL/min (>60) 25.2 mL/min (>60) 25.2 mL/min (>60) Glucose Level 108 MG/DL (74-106) 116 MG/DL (74-106) 98 MG/DL (74-106) 116 MG/DL (74-106) Calcium Level 7.4 MG/DL (8.5-10.1) 7.1 MG/DL (8.5-10.1) 7.2 MG/DL (8.5-10.1) 7.1 MG/DL (8.5-10.1) Total Bilirubin 0.3 MG/DL (0.2-1.0) 0.3 MG/DL (0.2-1.0) 0.3 MG/DL (0.2-1.0) Aspartate Amino Transf (AST/SGOT) 21 U/L (15-37) 24 U/L (15-37) 24 U/L (15-37) Alanine Aminotransferase (ALT/SGPT) 13 U/L (12-78) 13 U/L (12-78) 10 U/L (12-78) Alkaline Phosphatase 67 U/L (46-116) 82 U/L (46-116) 76 U/L (46-116) Total Protein 5.3 G/DL (6.4-8.2) 5.1 G/DL (6.4-8.2) 5.3 G/DL (6.4-8.2) Albumin 0.9 G/DL (3.4-5.0) 0.9 G/DL (3.4-5.0) 0.9 G/DL (3.4-5.0) Globulin 4.4 g/dL 4.2 g/dL 4.4 g/dL Albumin/Globulin Ratio 0.2 (1.0-2.7) 0.2 (1.0-2.7) 0.2 (1.0-2.7) White Blood Count 7.5 K/UL (4.8-10.8) 7.8 K/UL (4.8-10.8) 6.8 K/UL (4.8-10.8) Red Blood Count 2.90 M/UL (4.70-6.10) 2.83 M/UL (4.70-6.10) 2.89 M/UL (4.70-6.10) Hemoglobin 8.8 G/DL (14.2-18.0) 8.5 G/DL (14.2-18.0) 8.7 G/DL (14.2-18.0) Hematocrit 25.7 % (42.0-52.0) 25.1 % (42.0-52.0) 25.4 % (42.0-52.0) Mean Corpuscular Volume 89 FL (80-99) 88 FL (80-99) 88 FL (80-99) Mean Corpuscular Hemoglobin 30.4 PG (27.0-31.0) 30.0 PG (27.0-31.0) 30.0 PG (27.0-31.0) Mean Corpuscular Hemoglobin Concent 34.2 G/DL (32.0-36.0) 33.9 G/DL (32.0-36.0) 34.1 G/DL (32.0-36.0) Red Cell Distribution Width 14.3 % (11.6-14.8) 14.1 % (11.6-14.8) 14.5 % (11.6-14.8) Platelet Count 152 K/UL (150-450) 182 K/UL (150-450) 216 K/UL (150-450) Mean Platelet Volume 7.3 FL (6.5-10.1) 6.4 FL (6.5-10.1) 6.3 FL (6.5-10.1) Neutrophils (%) (Auto) 73.1 % (45.0-75.0) 59.4 % (45.0-75.0) 65.4 % (45.0-75.0) Lymphocytes (%) (Auto) 14.8 % (20.0-45.0) 23.8 % (20.0-45.0) 19.5 % (20.0-45.0) Monocytes (%) (Auto) 7.7 % (1.0-10.0) 9.2 % (1.0-10.0) 9.2 % (1.0-10.0) Eosinophils (%) (Auto) 3.8 % (0.0-3.0) 6.5 % (0.0-3.0) 4.6 % (0.0-3.0) Basophils (%) (Auto) 0.6 % (0.0-2.0) 1.0 % (0.0-2.0) 1.2 % (0.0-2.0) Magnesium Level 1.5 MG/DL (1.8-2.4) 2.0 MG/DL (1.8-2.4) Objective: WDWN NAD chronically ill tachypneic reduced breath sounds bilaterally without rhonchi or wheeze [id number] without MRG NABS nontender not distended; GT no CC edema nonfocal contracted line reviewed reviewed and edited Micro: Microbiology Date/Time Source Procedure Growth Status 03/15/20 18:30 Stool Clostridium difficile Toxin Assay - Final Complete 03/15/20 15:05 Nasopharynx SARS-CoV-2 RdRp Gene Assay - Final Complete Accucheck: 108 Mansoor Martinez MD Mar 17, 2020 08:17
[2020-03-17] MEDS: Ascorbic Acid 500mg tab GT SCH (09:39)
[2020-03-17] MEDS: levETIRAcetam 750 MG in NS 110 ML IV SCH ×2 (09:40→23:11)
--- NOTE | 2020-03-17 11:19 | Nephrology Progress Note ---
Assessment/Plan Plan Acute Oliguric ARF MOF VDRF Seizure DO Urosepsis Anemia, mostly of CKD - JJ Hypokalemia, Profound Hypomagnesemia - both due to diarrhea + Bicarb. correct. Subjective Subjective Obtunded. Objective Objective Last 24 Hour Vital Signs Date Time Temp Pulse Resp B/P (MAP) Pulse Ox O2 Delivery O2 Flow Rate FiO2 03/17/20 10:55 69 26 30 03/17/20 10:00 73 27 148/82 (104) 98 03/17/20 09:00 68 26 147/83 (104) 98 03/17/20 08:00 98.6 66 26 142/75 (97) 98 03/17/20 08:00 30 03/17/20 08:00 Mechanical Ventilator 03/17/20 08:00 68 03/17/20 07:15 68 26 30 03/17/20 07:00 69 26 144/80 (101) 98 03/17/20 06:00 70 25 145/78 (100) 98 03/17/20 05:00 70 25 146/74 (98) 98 03/17/20 04:00 Mechanical Ventilator 03/17/20 04:00 30 03/17/20 04:00 74 03/17/20 04:00 98.8 71 26 144/82 (102) 98 03/17/20 03:30 70 26 30 03/17/20 03:00 80 27 144/76 (98) 98 03/17/20 02:00 69 26 151/76 (101) 98 03/17/20 01:00 66 16 151/75 (100) 98 03/17/20 00:00 30 03/17/20 00:00 Mechanical Ventilator 03/17/20 00:00 99.4 68 8 156/76 (102) 99 03/17/20 00:00 70 03/16/20 23:44 68 26 30 03/16/20 23:00 67 16 151/74 (99) 99 03/16/20 22:00 69 16 156/79 (104) 99 03/16/20 21:00 69 20 153/77 (102) 99 03/16/20 20:00 Mechanical Ventilator 03/16/20 20:00 66 03/16/20 20:00 98.6 68 16 155/91 (112) 100 03/16/20 20:00 30 03/16/20 19:20 64 26 30 03/16/20 19:00 70 26 154/77 (102) 99 03/16/20 18:00 62 26 158/83 (108) 99 03/16/20 17:00 64 26 157/80 (105) 99 03/16/20 16:00 Mechanical Ventilator 03/16/20 16:00 30 03/16/20 16:00 68 26 156/80 (105) 100 03/16/20 16:00 69 03/16/20 15:46 79 29 30 03/16/20 15:00 64 26 154/80 (104) 99 03/16/20 14:00 65 26 152/79 (103) 98 03/16/20 13:00 98.6 65 26 148/79 (102) 98 03/16/20 12:00 30 03/16/20 12:00 71 03/16/20 12:00 70 23 148/79 (102) 98 03/16/20 12:00 Mechanical Ventilator 03/16/20 11:56 73 20 98 03/16/20 11:54 71 20 97 03/16/20 11:37 69 26 30 l Intake and Output 03/16/20 03/17/20 19:00 07:00 Intake Total 1824.7 ml 1770.00 ml Output Total 660 ml 1110 ml Balance 1164.7 ml 660.00 ml Free Water 120 ml 120 ml IV Total 1494.7 ml 1290.00 ml Tube Feeding 210 ml 360 ml Output Urine Total 600 ml 1110 ml Stool Total 60 ml Laboratory Tests 03/17/20 04:00: White Blood Count 6.8, Red Blood Count 2.89L, Hemoglobin 8.7L, Hematocrit 25.4L, Mean Corpuscular Volume 88, Mean Corpuscular Hemoglobin 30.0, Mean Corpuscular Hemoglobin Concent 34.1, Red Cell Distribution Width 14.5, Platelet Count 216, Mean Platelet Volume 6.3L, Neutrophils (%) (Auto) 65.4, Lymphocytes (%) (Auto) 19.5L, Monocytes (%) (Auto) 9.2, Eosinophils (%) (Auto) 4.6H, Basophils (%) (Auto) 1.2, Sodium Level 138, Potassium Level 3.4L, Chloride Level 106, Carbon Dioxide Level 25, Anion Gap 7, Blood Urea Nitrogen 50H, Creatinine 2.5H, Estimat Glomerular Filtration Rate 25.2, Glucose Level 116H, Calcium Level 7.1L, Total Bilirubin 0.3, Aspartate Amino Transf (AST/SGOT) 24, Alanine Aminotransferase (ALT/SGPT) 10L, Alkaline Phosphatase 76, Total Protein 5.3L, Albumin 0.9L, Globulin 4.4, Albumin/Globulin Ratio 0.2L Height (Feet): 5 Height (Inches): 7.00 Weight (Pounds): 124 Objective On vent. Trach site miroslava. CV Tach. Lungs B ronchi. Abd distended. SNT. BS diminished. E contractures. +2 B edema. Neuro obtunded. Nonfocal. Ayanna Maldonado MD Mar 17, 2020 11:19
--- NOTE | 2020-03-17 11:26 | Infectious Diseases Prog Note ---
"Assessment/Plan Assessment/Plan antibiotics : none A 1. proteus | e.coli | acenitobacter | klebsiella pneumonia s/p rx COVID 19 negative 2. + blood cultures with coag neg staph contaminated 3. renal failure 4. shock 5. GI bleeding 6. diabetes mellitus P 1. observe off antibiotics 2. will follow up clinically Subjective ROS Limited/Unobtainable: Yes Allergies: Coded Allergies: No Known Allergies (Unverified , 02/23/12) Objective Last 24 Hour Vital Signs Date Time Temp Pulse Resp B/P (MAP) Pulse Ox O2 Delivery O2 Flow Rate FiO2 03/17/20 10:55 69 26 30 03/17/20 10:00 73 27 148/82 (104) 98 03/17/20 09:00 68 26 147/83 (104) 98 03/17/20 08:00 98.6 66 26 142/75 (97) 98 03/17/20 08:00 30 03/17/20 08:00 Mechanical Ventilator 03/17/20 08:00 68 03/17/20 07:15 68 26 30 03/17/20 07:00 69 26 144/80 (101) 98 03/17/20 06:00 70 25 145/78 (100) 98 03/17/20 05:00 70 25 146/74 (98) 98 03/17/20 04:00 Mechanical Ventilator 03/17/20 04:00 30 03/17/20 04:00 74 03/17/20 04:00 98.8 71 26 144/82 (102) 98 03/17/20 03:30 70 26 30 03/17/20 03:00 80 27 144/76 (98) 98 03/17/20 02:00 69 26 151/76 (101) 98 03/17/20 01:00 66 16 151/75 (100) 98 03/17/20 00:00 30 03/17/20 00:00 Mechanical Ventilator 03/17/20 00:00 99.4 68 8 156/76 (102) 99 03/17/20 00:00 70 03/16/20 23:44 68 26 30 03/16/20 23:00 67 16 151/74 (99) 99 03/16/20 22:00 69 16 156/79 (104) 99 03/16/20 21:00 69 20 153/77 (102) 99 03/16/20 20:00 Mechanical Ventilator 03/16/20 20:00 66 03/16/20 20:00 98.6 68 16 155/91 (112) 100 03/16/20 20:00 30 03/16/20 19:20 64 26 30 03/16/20 19:00 70 26 154/77 (102) 99 03/16/20 18:00 62 26 158/83 (108) 99 03/16/20 17:00 64 26 157/80 (105) 99 03/16/20 16:00 Mechanical Ventilator 03/16/20 16:00 30 03/16/20 16:00 68 26 156/80 (105) 100 03/16/20 16:00 69 03/16/20 15:46 79 29 30 03/16/20 15:00 64 26 154/80 (104) 99 03/16/20 14:00 65 26 152/79 (103) 98 03/16/20 13:00 98.6 65 26 148/79 (102) 98 03/16/20 12:00 30 03/16/20 12:00 71 03/16/20 12:00 70 23 148/79 (102) 98 03/16/20 12:00 Mechanical Ventilator 03/16/20 11:56 73 20 98 03/16/20 11:54 71 20 97 03/16/20 11:37 69 26 30 Height (Feet): 5 Height (Inches): 7.00 Weight (Pounds): 124 HEENT: status post trach Respiratory/Chest: lungs clear Cardiovascular: normal rate, regular rhythm, no gallop/murmur Abdomen: soft, non tender, other - GT Extremities: other - + edema Microbiology Date/Time Source Procedure Growth Status 03/15/20 18:30 Stool Clostridium difficile Toxin Assay - Final Complete 03/15/20 15:05 Nasopharynx SARS-CoV-2 RdRp Gene Assay - Final Complete Laboratory Tests Test 03/17/20 04:00 White Blood Count 6.8 K/UL (4.8-10.8) Red Blood Count 2.89 M/UL (4.70-6.10) L Hemoglobin 8.7 G/DL (14.2-18.0) L Hematocrit 25.4 % (42.0-52.0) L Mean Corpuscular Volume 88 FL (80-99) Mean Corpuscular Hemoglobin 30.0 PG (27.0-31.0) Mean Corpuscular Hemoglobin Concent 34.1 G/DL (32.0-36.0) Red Cell Distribution Width 14.5 % (11.6-14.8) Platelet Count 216 K/UL (150-450) Mean Platelet Volume 6.3 FL (6.5-10.1) L Neutrophils (%) (Auto) 65.4 % (45.0-75.0) Lymphocytes (%) (Auto) 19.5 % (20.0-45.0) L Monocytes (%) (Auto) 9.2 % (1.0-10.0) Eosinophils (%) (Auto) 4.6 % (0.0-3.0) H Basophils (%) (Auto) 1.2 % (0.0-2.0) Sodium Level 138 MMOL/L (136-145) Potassium Level 3.4 MMOL/L (3.5-5.1) L Chloride Level 106 MMOL/L (98-107) Carbon Dioxide Level 25 MMOL/L (21-32) Anion Gap 7 mmol/L (5-15) Blood Urea Nitrogen 50 mg/dL (7-18) H Creatinine 2.5 MG/DL (0.55-1.30) H Estimat Glomerular Filtration Rate 25.2 mL/min (>60) Glucose Level 116 MG/DL (74-106) H Calcium Level 7.1 MG/DL (8.5-10.1) L Total Bilirubin 0.3 MG/DL (0.2-1.0) Aspartate Amino Transf (AST/SGOT) 24 U/L (15-37) Alanine Aminotransferase (ALT/SGPT) 10 U/L (12-78) L Alkaline Phosphatase 76 U/L (46-116) Total Protein 5.3 G/DL (6.4-8.2) L Albumin 0.9 G/DL (3.4-5.0) L Globulin 4.4 g/dL Albumin/Globulin Ratio 0.2 (1.0-2.7) L Current Medications Medications (Trade) Dose Ordered Sig/Lanny Route PRN Reason Start Time Stop Time Status Last Admin Dose Admin Acetaminophen (Tylenol) 650 mg Q6H PRN GT MILD/TEMP 03/16/20 16:45 04/04/20 08:29 Ascorbic Acid (Vitamin C) 250 mg DAILY GT 03/17/20 09:00 04/16/20 08:59 03/17/20 09:39 Chlorhexidine Gluconate (Kayla-Hex 2%) 1 applic DAILY@2000 TOPIC 03/05/20 21:00 06/03/20 20:59 03/16/20 19:41 Clonidine HCl (Catapres Tab) 0.1 mg Q4H PRN GT For High Blood Pressure 03/16/20 16:45 06/10/20 08:14 Epoetin Asaf (Epoetin Asaf-EPBX(NON ESRD)) 3,000 unit SUBQ 03/10/20 21:00 06/08/20 20:59 03/15/20 20:46 Epoetin Asaf (Epoetin Asaf-EPBX(NON ESRD)) 4,000 unit SUBQ 03/10/20 21:00 06/08/20 20:59 03/15/20 20:46 Levetiracetam 750 mg/Sodium Chloride 117.5 ml @ 470 mls/hr Q12H IV 03/05/20 23:00 04/04/20 22:59 03/17/20 09:40 Levothyroxine Sodium (Synthroid) 125 mcg DAILY IV 03/10/20 09:00 04/09/20 08:59 03/17/20 09:39 Metoclopramide HCl (Reglan) 5 mg EVERY 6 HOURS IVP 03/08/20 12:00 04/07/20 11:59 03/17/20 06:07 Pantoprazole 80 mg/Sodium Chloride 250 ml @ 25 mls/hr Q10H IV 03/05/20 12:30 04/04/20 12:29 03/17/20 03:45 Potassium Chloride (K-Dur) 10 meq THREE TIMES A DAY GT 03/16/20 18:00 06/14/20 17:59 03/17/20 09:39 Sodium Bicarbonate 50 ml/ Dextrose 1,050 ml @ 75 mls/hr Q14H IV 03/11/20 11:00 04/10/20 10:59 03/17/20 06:07 Zinc Oxide (Zinc Oxide) 1 applic EVERY 8 HOURS TOPIC 03/14/20 22:00 12/11/20 12:44 03/17/20 06:07 Isaak Hair MD Mar 17, 2020 11:26"
--- NOTE | 2020-03-17 11:56 | Surgery Progress Note ---
Surgery Progress Note Subjective Additional Comments repeat scope showed clearance of clot and healing ulcer Objective Last 24 Hour Vital Signs Date Time Temp Pulse Resp B/P (MAP) Pulse Ox O2 Delivery O2 Flow Rate FiO2 03/17/20 10:55 69 26 30 03/17/20 10:00 73 27 148/82 (104) 98 03/17/20 09:00 68 26 147/83 (104) 98 03/17/20 08:00 98.6 66 26 142/75 (97) 98 03/17/20 08:00 30 03/17/20 08:00 Mechanical Ventilator 03/17/20 08:00 68 03/17/20 07:15 68 26 30 03/17/20 07:00 69 26 144/80 (101) 98 03/17/20 06:00 70 25 145/78 (100) 98 03/17/20 05:00 70 25 146/74 (98) 98 03/17/20 04:00 Mechanical Ventilator 03/17/20 04:00 30 03/17/20 04:00 74 03/17/20 04:00 98.8 71 26 144/82 (102) 98 03/17/20 03:30 70 26 30 03/17/20 03:00 80 27 144/76 (98) 98 03/17/20 02:00 69 26 151/76 (101) 98 03/17/20 01:00 66 16 151/75 (100) 98 03/17/20 00:00 30 03/17/20 00:00 Mechanical Ventilator 03/17/20 00:00 99.4 68 8 156/76 (102) 99 03/17/20 00:00 70 03/16/20 23:44 68 26 30 03/16/20 23:00 67 16 151/74 (99) 99 03/16/20 22:00 69 16 156/79 (104) 99 03/16/20 21:00 69 20 153/77 (102) 99 03/16/20 20:00 Mechanical Ventilator 03/16/20 20:00 66 03/16/20 20:00 98.6 68 16 155/91 (112) 100 03/16/20 20:00 30 03/16/20 19:20 64 26 30 03/16/20 19:00 70 26 154/77 (102) 99 03/16/20 18:00 62 26 158/83 (108) 99 03/16/20 17:00 64 26 157/80 (105) 99 03/16/20 16:00 Mechanical Ventilator 03/16/20 16:00 30 03/16/20 16:00 68 26 156/80 (105) 100 03/16/20 16:00 69 03/16/20 15:46 79 29 30 03/16/20 15:00 64 26 154/80 (104) 99 03/16/20 14:00 65 26 152/79 (103) 98 03/16/20 13:00 98.6 65 26 148/79 (102) 98 03/16/20 12:00 30 03/16/20 12:00 71 03/16/20 12:00 70 23 148/79 (102) 98 03/16/20 12:00 Mechanical Ventilator I&O Intake and Output 03/16/20 03/17/20 19:00 07:00 Intake Total 1824.7 ml 1770.00 ml Output Total 660 ml 1110 ml Balance 1164.7 ml 660.00 ml Free Water 120 ml 120 ml IV Total 1494.7 ml 1290.00 ml Tube Feeding 210 ml 360 ml Output Urine Total 600 ml 1110 ml Stool Total 60 ml Cardiovascular: RSR Respiratory: decreased breath sounds Abdomen: soft, non-tender, present bowel sounds Extremities: no tenderness, no cyanosis Laboratory Tests Test 03/17/20 04:00 White Blood Count 6.8 K/UL (4.8-10.8) Red Blood Count 2.89 M/UL (4.70-6.10) L Hemoglobin 8.7 G/DL (14.2-18.0) L Hematocrit 25.4 % (42.0-52.0) L Mean Corpuscular Volume 88 FL (80-99) Mean Corpuscular Hemoglobin 30.0 PG (27.0-31.0) Mean Corpuscular Hemoglobin Concent 34.1 G/DL (32.0-36.0) Red Cell Distribution Width 14.5 % (11.6-14.8) Platelet Count 216 K/UL (150-450) Mean Platelet Volume 6.3 FL (6.5-10.1) L Neutrophils (%) (Auto) 65.4 % (45.0-75.0) Lymphocytes (%) (Auto) 19.5 % (20.0-45.0) L Monocytes (%) (Auto) 9.2 % (1.0-10.0) Eosinophils (%) (Auto) 4.6 % (0.0-3.0) H Basophils (%) (Auto) 1.2 % (0.0-2.0) Sodium Level 138 MMOL/L (136-145) Potassium Level 3.4 MMOL/L (3.5-5.1) L Chloride Level 106 MMOL/L (98-107) Carbon Dioxide Level 25 MMOL/L (21-32) Anion Gap 7 mmol/L (5-15) Blood Urea Nitrogen 50 mg/dL (7-18) H Creatinine 2.5 MG/DL (0.55-1.30) H Estimat Glomerular Filtration Rate 25.2 mL/min (>60) Glucose Level 116 MG/DL (74-106) H Calcium Level 7.1 MG/DL (8.5-10.1) L Total Bilirubin 0.3 MG/DL (0.2-1.0) Aspartate Amino Transf (AST/SGOT) 24 U/L (15-37) Alanine Aminotransferase (ALT/SGPT) 10 U/L (12-78) L Alkaline Phosphatase 76 U/L (46-116) Total Protein 5.3 G/DL (6.4-8.2) L Albumin 0.9 G/DL (3.4-5.0) L Globulin 4.4 g/dL Albumin/Globulin Ratio 0.2 (1.0-2.7) L Plan Problems: (1) Respiratory failure (2) GIB (gastrointestinal bleeding) Assessment & Plan: 79-year-old male with leukocytosis, anemia, NG tube inserted and bright blood identified. Plan for urgent EGD today. Protonix IV N.p.o. IV fluid resuscitation PRBC transfusion trend labs Care plan discussed with GI will await EGD findings Thank you for let me participate in patient's care will follow with recommendations EGD findings noted discussed with GI NG tube placed Continuous gastric irrigation and suction initiated plan for repeat scope soon repeat scope noted unchanged cannot remove clot CT reviewed surgery too high risk no active bleeding trend h/h start tf plan to repeat scope next week discussed with GI hold on surgery repeat scope showed clot gone and healing ulcer cont ppi There is a rectal tube in place. The balloon is likely inflated within the anal canal rather than the distal rectum. There is marked rectal wall thickening and considerable edema of the perirectal fat. Prominent gas-filled right upper quadrant bowel seen on recent plain radiographs is demonstrated to be the cecum. Although the sacrum appears quite wide in transverse dimension (approximately 11.5 cm) it is not particularly distended in the AP plane, measuring 4.9 cm AP. The anatomy of the ascending colon and hepatic flexure is not well-defined, and it is unclear whether this represents a possible cecal bascule versus an unusually positioned but otherwise normal cecum. No definite wall thickening is evident. The terminal ileum is normal in caliber or collapsed. The remainder of the small bowel appears mildly dilated, gas and fluid-filled, and the transition point appears to be gradual. No definite small bowel wall thickening. There is a gastrostomy tube which appears to be well positioned at the gastric antrum body junction.. The stomach is distended. The gastric antrum and proximal duodenum appears somewhat thick walled. Ingested contrast has traversed a portion of the proximal small bowel. There is considerable material dependently within the stomach, displacing the ingested contrast. Surgical clips are seen in the mesenteric root inferior to the pancreatic tail and anterior to the proximal jejunum There is moderate free intraperitoneal fluid. No free intraperitoneal gas is demonstrated. Lack of IV contrast limits assessment of the solid organs. The liver, gallbladder, bile ducts, pancreas, spleen, adrenals, right kidney are unremarkable. Left kidney demonstrates a lower pole cyst. The bladder is mildly distended, and minimally thick-walled. There are bilateral right greater than left pleural effusions. There is bilateral basilar pulmonary parenchymal consolidation and/or edema consolidation. The heart is upper limits normal in size. There is extensive edema of the subcutaneous fat, less extensive edema of the mesenteric and retroperitoneal fat. The bones demonstrate a compression fracture deformity of the L1 vertebral body. There are degenerative changes at the lumbosacral junction. Impression: Poorly delineated cecal and ascending colon anatomy. Dilated bowel loop in the right upper quadrant seen on recent plain radiograph is demonstrated to be the cecum. It is dilated, although less severely than is suggested by the plain radiograph. The tip of the cecum is pointed cephalad. There is also dilatation of most of the small bowel, which is dilated, gas and fluid-filled, but the terminal ileum is nondilated. There is not a definite abrupt transition point. Findings may be purely on the basis of ileus with variant cecal anatomy and unusual hepato- colonic interposition, but the possibility of a cecal bascule or internal hernia causing ascending colon and/or distal small bowel obstruction should also be considered. Rectal tube balloon is dilated within the anal canal. Recommend deflation and repositioning Wall thickening of the distal sigmoid and rectum, with edema of the perirectal/perisigmoid fat, concerning for colitis. Distended stomach. Given stated clinical history of GI bleeding, material within the gastric fundus displacing the contrast likely represents blood clots, but any of this could also represent an endophytic mass lesion. There is no rand gastric fundal wall thickening. There is some wall thickening of the gastric antrum and duodenum, although this could in part be an artifact of lack of distention. Gastrostomy is in good position Moderate ascites Bilateral pleural effusions. Bilateral parenchymal consolidation, may reflect pulmonary edema versus parenchymal infiltrates Other evidence of anasarca, with diffuse edema of the subcutaneous fat, less severe edema of the abdominal fat L1 vertebral body compression fracture, age-indeterminate Other findings as noted, including degenerative spondylosis, left lower pole renal cyst. (3) Aspiration pneumonia (4) Sepsis (5) ARF (acute renal failure) (6) HCAP (healthcare-associated pneumonia) (7) Dehydration (8) Hypokalemia (9) Hyperkalemia (10) Anemia (11) Decubitus skin ulcer Assessment & Plan: Pt presented on admission with gross contractures, Multiple Pressure Injuries, Tracheostomy. Skin Assessed under tracheal collar and no evidence of skin breakdown noted. Tear noted to urinary meatus- no exudate noted. Scrotum is erythematous with scattered satellite lesions. Large ulcer noted to R scrotal sac (L)4cm x (W)4.6cm. Base of wound is erythematous ,moist with Biofilm. Sacral DTPI with clusters of small islands of slough with surrounding maroon and indurated areas (L)8cm x (W)12cm.Mild Odor noted. Partial thickness Pressure Injury Upper/outer R buttocks(L)1.8cm x (W)1.3cm. Base of wound is moist and viable. Edges adherent to base of wound. Surrounding non-blanching erythema with scattered areas of shearing noted. Partial thickness Pressure Inferior lower R buttocks.(L)0.8cm x (W)1.2cm. Base of wound is moist and viable. Edges adherent to base of wound. Surrounding non- blanching erythema with scattered shearing noted extending into R ischial tuberosity. Clusters of small hyperpigmentation noted to L trochanteric and L ischial tuberosity. R Heel is fluctuant with scattered dry eschar and surrounding Non-Blanchable erythema.(L)6.5cm x (W)8cm. DTPI distal/lateral R foot(L)3cm x (W)3cm. Base of wound is maroon and fluctuant. dry eschar noted to tip of R 1st metatarsal with surrounding non-blanchable erythema extending dorsally and laterally of metatarsal(L)5cm x (W)1.3cm Non-Blanchable erythema that is fluctuant at base noted to dorso/lateral L 5th metatarsal(L)0.6cm x (W)0.3cm. L Heel is boggy with non-blanchable erythema laterally. Hyperpigmentation from previous wound noted at L heel. Tx.Plan: Cleanse Sacral wound with Saline. Apply TheraHoney to slough. Apply Moisture Barrier Paste periwound. Cover with Optifoam drsg. Change daily and prn. Apply Moisture Barrier Paste to Wounds R upper and lower R Buttocks. Cover each wound with Optifoam drsg. Change every 3 days and prn. Apply Zinc Oxide Paste to Scrotal Wounds TID and prn. Apply Betadine to wounds R heel and R foot . Cover with ABD Pads and wrap with Kerlix every 3 days and prn. Apply Betadine to L foot. Cover with ABD Pads and wrap with Kerlix every 3 days and prn. Cover Bony Prominences as needed with Optifoam drsgs. Reposition at least every 2hours or as tolerated. Off-load heels with pillow. APM/VIRAL Mattress DAILY ESTIMATED NEEDS: Needs based on Critical care, sepsis 56kg 25-30 kcals/kg 9682-2137 total kcals 1.25-2 g protein/kg 70-112 g total protein 25-30 mL/kg 7566-1370 total fluid mLs NUTRITION DIAGNOSIS: Swallowing difficulty r/ respiratory status as evidenced by pt is vent dep via trach, PEG dep. CURRENT TF:NPO FOR EGD ENTERAL NUTRITION RECOMMENDATIONS: Vital AF 1.2 @ 50ml/hr x 24 hrs to provide 1200ml, 1440kcal, 90g prot, 973ml free water - W/ continued improving renal fxn + consistently low lytes and diarrhea, rec TF change to Vital AF 1.2 (Nepro is no longer necessary) - Rec Vital AF 1.2 @ goal rate of 50ml/hr x 24 hrs - Flush per MD, HOB over 30 degrees IF IV SYNTHROID CHANEGS TO GT SYNTHROID -> Vital AF 1.2 @55ml/hr x22 hrs (hold 1 hr before and after Synthroid) to provide 1210ml, 1452 kcal, 91g pro, 981ml free H2O ADDITIONAL RECOMMENDATIONS: 1) Calibrated bed scale wts as able-> now w/ added P200 mattress 2) Monitor renal labs and lytes -> improving, lytes low, rec TF change as Nepro no longer necessary 3) Wound care: add Vit C 250mg daily . + Kirill BID via GT 4) Rec probiotics for diarrhea . 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
[2020-03-17] MEDS ORDERED: LORazepam Inj 2mg/ml 1ml IV PRN (14:50)
--- NOTE | 2020-03-17 14:57 | General Progress Note ---
Subjective ROS Limited/Unobtainable: Yes Constitutional: Reports: malaise, weakness HEENT: Reports: no symptoms Cardiovascular: Reports: no symptoms Respiratory: Reports: cough, SOB with excertion, sputum Gastrointestinal/Abdominal: Reports: difficulty swallowing Genitourinary: Reports: no symptoms Neurologic/Psychiatric: Reports: pre-existing deficit, seizure Endocrine: Reports: no symptoms Hematologic/Lymphatic: Reports: anemia Allergies: Coded Allergies: No Known Allergies (Unverified , 02/23/12) All Systems: reviewed and negative except above Subjective no events. no bleeding. +sz x 1. better after ativan. no fever or chills. no sob. remains withdrawn. poorly responsive at baseline. Objective Last 24 Hour Vital Signs Date Time Temp Pulse Resp B/P (MAP) Pulse Ox O2 Delivery O2 Flow Rate FiO2 03/17/20 14:00 47 15 140/82 (101) 96 03/17/20 13:00 70 24 146/75 (98) 98 03/17/20 12:00 98.8 72 26 142/77 (98) 97 03/17/20 12:00 Mechanical Ventilator 03/17/20 12:00 57 03/17/20 12:00 30 03/17/20 11:00 73 26 145/79 (101) 98 03/17/20 10:55 69 26 30 03/17/20 10:00 73 27 148/82 (104) 98 03/17/20 09:00 68 26 147/83 (104) 98 03/17/20 08:00 98.6 66 26 142/75 (97) 98 03/17/20 08:00 30 03/17/20 08:00 Mechanical Ventilator 03/17/20 08:00 68 03/17/20 07:15 68 26 30 03/17/20 07:00 69 26 144/80 (101) 98 03/17/20 06:00 70 25 145/78 (100) 98 03/17/20 05:00 70 25 146/74 (98) 98 03/17/20 04:00 Mechanical Ventilator 03/17/20 04:00 30 03/17/20 04:00 74 03/17/20 04:00 98.8 71 26 144/82 (102) 98 03/17/20 03:30 70 26 30 03/17/20 03:00 80 27 144/76 (98) 98 03/17/20 02:00 69 26 151/76 (101) 98 03/17/20 01:00 66 16 151/75 (100) 98 03/17/20 00:00 30 03/17/20 00:00 Mechanical Ventilator 03/17/20 00:00 99.4 68 8 156/76 (102) 99 03/17/20 00:00 70 03/16/20 23:44 68 26 30 03/16/20 23:00 67 16 151/74 (99) 99 03/16/20 22:00 69 16 156/79 (104) 99 03/16/20 21:00 69 20 153/77 (102) 99 03/16/20 20:00 Mechanical Ventilator 03/16/20 20:00 66 03/16/20 20:00 98.6 68 16 155/91 (112) 100 03/16/20 20:00 30 03/16/20 19:20 64 26 30 03/16/20 19:00 70 26 154/77 (102) 99 03/16/20 18:00 62 26 158/83 (108) 99 03/16/20 17:00 64 26 157/80 (105) 99 03/16/20 16:00 Mechanical Ventilator 03/16/20 16:00 30 03/16/20 16:00 68 26 156/80 (105) 100 03/16/20 16:00 69 03/16/20 15:46 79 29 30 03/16/20 15:00 64 26 154/80 (104) 99 Intake and Output 03/16/20 03/17/20 19:00 07:00 Intake Total 1824.7 ml 1770.00 ml Output Total 660 ml 1110 ml Balance 1164.7 ml 660.00 ml Free Water 120 ml 120 ml IV Total 1494.7 ml 1290.00 ml Tube Feeding 210 ml 360 ml Output Urine Total 600 ml 1110 ml Stool Total 60 ml Laboratory Tests 03/17/20 04:00: White Blood Count 6.8, Red Blood Count 2.89L, Hemoglobin 8.7L, Hematocrit 25.4L, Mean Corpuscular Volume 88, Mean Corpuscular Hemoglobin 30.0, Mean Corpuscular Hemoglobin Concent 34.1, Red Cell Distribution Width 14.5, Platelet Count 216, Mean Platelet Volume 6.3L, Neutrophils (%) (Auto) 65.4, Lymphocytes (%) (Auto) 19.5L, Monocytes (%) (Auto) 9.2, Eosinophils (%) (Auto) 4.6H, Basophils (%) (Auto) 1.2, Sodium Level 138, Potassium Level 3.4L, Chloride Level 106, Carbon Dioxide Level 25, Anion Gap 7, Blood Urea Nitrogen 50H, Creatinine 2.5H, Estimat Glomerular Filtration Rate 25.2, Glucose Level 116H, Calcium Level 7.1L, Total Bilirubin 0.3, Aspartate Amino Transf (AST/SGOT) 24, Alanine Aminotransferase (ALT/SGPT) 10L, Alkaline Phosphatase 76, Total Protein 5.3L, Albumin 0.9L, Globulin 4.4, Albumin/Globulin Ratio 0.2L Height (Feet): 5 Height (Inches): 7.00 Weight (Pounds): 124 Objective General Appearance: WD/WN, cachetic, thin EENT: normal ENT inspection Neck: non-tender, normal alignment, supple Cardiovascular: normal rate, regular rhythm Respiratory/Chest: chest wall non-tender, lungs clear, normal breath sounds, no respiratory distress, no accessory muscle use Abdomen: normal bowel sounds, non tender, soft, no organomegaly, no mass Edema: no edema noted Arm (L), no edema noted Arm (R) Neurologic: disoriented, unresponsive, aphasia Skin: normal pigmentation Lymphatic: normal anterior cervical (L), normal anterior cervical (R) Assessment/Plan Problem List: (1) GIB (gastrointestinal bleeding) ICD Codes: K92.2 - Gastrointestinal hemorrhage, unspecified SNOMED: 02590328 (2) Sepsis ICD Codes: A41.9 - Sepsis, unspecified organism SNOMED: 69688872 Qualifiers: Qualified Codes: A41.9 - Sepsis, unspecified organism; R65.20 - Severe sepsis without septic shock; N17.9 - Acute kidney failure, unspecified (3) Respiratory failure ICD Codes: J96.90 - Respiratory failure, unspecified, unspecified whether with hypoxia or hypercapnia SNOMED: 699592502 Qualifiers: Qualified Codes: J96.01 - Acute respiratory failure with hypoxia (4) Aspiration pneumonia ICD Codes: J69.0 - Pneumonitis due to inhalation of food and vomit SNOMED: 268591363 Qualifiers: Qualified Codes: O74.0 - Aspiration pneumonitis due to anesthesia during labor and delivery (5) HCAP (healthcare-associated pneumonia) ICD Codes: J18.9 - Pneumonia, unspecified organism SNOMED: 680322802, 938848496 (6) ARF (acute renal failure) ICD Codes: N17.9 - Acute kidney failure, unspecified SNOMED: 86631384, 370413148 Qualifiers: Qualified Codes: N17.9 - Acute kidney failure, unspecified Status: stable, unchanged Assessment/Plan: follow up labs transfuse as needed protonix po vent support resp rx thyroid replacement monitor sz keppra po added dilantin bp rx replace K dc planning full code per Jimi Martinez MD Mar 17, 2020 14:57
--- NOTE | 2020-03-17 15:00 | Procedure Note ---
DATE OF PROCEDURE: 03/16/2020 GASTROENTEROLOGY PROCEDURE REPORT PROCEDURE: Upper gastrointestinal endoscopy with biopsy. SURGEON: Clive Kuo MD. ANESTHESIA: Cesar Chavez MD. PRE-ENDOSCOPIC DIAGNOSIS: Gastrointestinal bleeding. POST-ENDOSCOPIC DIAGNOSES: 1. A 2 cm white base flat gastric ulcer in the mid body of the stomach without active bleeding. 2. Resolved previously noted bleeding and blood clots. DESCRIPTION OF PROCEDURE: The procedure, its risks, indications, alternatives, and possible complications had been explained to the patient's conservator and informed consent was obtained. The patient was then sedated in the supine position and a diagnostic upper endoscope was introduced into oropharynx and advanced to the duodenum. The endoscope was then gradually withdrawn and mucosa examined carefully. Examination of the upper gastrointestinal mucosa no longer showed a large blood clot seen previously. There was a 2 cm flat white base gastric ulcer in the midbody clinically with no active bleeding. The biopsies of the ulcer edges were sent to pathology for review. There was some mild degree of esophagitis. The endoscope was removed and the patient was sent to Recovery in good condition. COMPLICATIONS: None. ASSESSMENT: The patient's bleeding was from the gastric ulcer, which is now clearly seen and no other lesions were identified. The patient's course should be supportive. His tube feeding can be started through the gastrostomy tube and also medications to be continued. Helicobacter pylori should be treated if positive on the biopsy results. Cliev Kuo M.D. DR: Aleksander JOB#: [id number] CC:
[2020-03-17] MEDS: Phenytoin Susp 100mg/4ml GT SCH ×2 (15:41→21:49)
--- NOTE | 2020-03-17 18:23 | General Progress Note ---
Subjective Allergies: Coded Allergies: No Known Allergies (Unverified , 02/23/12) Subjective above noted NAD Back on TF BM dark and liquid Objective Last 24 Hour Vital Signs Date Time Temp Pulse Resp B/P (MAP) Pulse Ox O2 Delivery O2 Flow Rate FiO2 03/17/20 16:12 70 26 30 03/17/20 14:00 47 15 140/82 (101) 96 03/17/20 13:00 70 24 146/75 (98) 98 03/17/20 12:00 98.8 72 26 142/77 (98) 97 03/17/20 12:00 Mechanical Ventilator 03/17/20 12:00 57 03/17/20 12:00 30 03/17/20 11:00 73 26 145/79 (101) 98 03/17/20 10:55 69 26 30 03/17/20 10:00 73 27 148/82 (104) 98 03/17/20 09:00 68 26 147/83 (104) 98 03/17/20 08:00 98.6 66 26 142/75 (97) 98 03/17/20 08:00 30 03/17/20 08:00 Mechanical Ventilator 03/17/20 08:00 68 03/17/20 07:15 68 26 30 03/17/20 07:00 69 26 144/80 (101) 98 03/17/20 06:00 70 25 145/78 (100) 98 03/17/20 05:00 70 25 146/74 (98) 98 03/17/20 04:00 Mechanical Ventilator 03/17/20 04:00 30 03/17/20 04:00 74 03/17/20 04:00 98.8 71 26 144/82 (102) 98 03/17/20 03:30 70 26 30 03/17/20 03:00 80 27 144/76 (98) 98 03/17/20 02:00 69 26 151/76 (101) 98 03/17/20 01:00 66 16 151/75 (100) 98 03/17/20 00:00 30 03/17/20 00:00 Mechanical Ventilator 03/17/20 00:00 99.4 68 8 156/76 (102) 99 03/17/20 00:00 70 03/16/20 23:44 68 26 30 03/16/20 23:00 67 16 151/74 (99) 99 03/16/20 22:00 69 16 156/79 (104) 99 03/16/20 21:00 69 20 153/77 (102) 99 03/16/20 20:00 Mechanical Ventilator 03/16/20 20:00 66 03/16/20 20:00 98.6 68 16 155/91 (112) 100 03/16/20 20:00 30 03/16/20 19:20 64 26 30 03/16/20 19:00 70 26 154/77 (102) 99 Intake and Output 03/16/20 03/17/20 19:00 07:00 Intake Total 1824.7 ml 1770.00 ml Output Total 660 ml 1110 ml Balance 1164.7 ml 660.00 ml Free Water 120 ml 120 ml IV Total 1494.7 ml 1290.00 ml Tube Feeding 210 ml 360 ml Output Urine Total 600 ml 1110 ml Stool Total 60 ml Laboratory Tests 03/17/20 04:00: White Blood Count 6.8, Red Blood Count 2.89L, Hemoglobin 8.7L, Hematocrit 25.4L, Mean Corpuscular Volume 88, Mean Corpuscular Hemoglobin 30.0, Mean Corpuscular Hemoglobin Concent 34.1, Red Cell Distribution Width 14.5, Platelet Count 216, Mean Platelet Volume 6.3L, Neutrophils (%) (Auto) 65.4, Lymphocytes (%) (Auto) 19.5L, Monocytes (%) (Auto) 9.2, Eosinophils (%) (Auto) 4.6H, Basophils (%) (Auto) 1.2, Sodium Level 138, Potassium Level 3.4L, Chloride Level 106, Carbon Dioxide Level 25, Anion Gap 7, Blood Urea Nitrogen 50H, Creatinine 2.5H, Estimat Glomerular Filtration Rate 25.2, Glucose Level 116H, Calcium Level 7.1L, Total Bilirubin 0.3, Aspartate Amino Transf (AST/SGOT) 24, Alanine Aminotransferase (ALT/SGPT) 10L, Alkaline Phosphatase 76, Total Protein 5.3L, Albumin 0.9L, Globulin 4.4, Albumin/Globulin Ratio 0.2L Height (Feet): 5 Height (Inches): 7.00 Weight (Pounds): 124 Objective Debilitated unresponsive man NCAT (+) trach coarse BS RR abd flat , (+) GT (+) contractures (+) skin breakdown Assessment/Plan Status: stable, unchanged Assessment/Plan: Assessment - UGI Bleed - Gastric ulcer, resolved - aberrant cecal position on CT - malnutrition / low albumin - resp failure / trach - dysphagia / PEG - multiple contractures - OBS - Anemia - Azotemia - improving sepsis Recommendations - Continue TF - Replace K/Mg PRN - PPI - follow labs - DPOA to decide on level of care Clive Kuo MD Mar 17, 2020 18:23
[2020-03-17] MEDS: Dyna-Hex 2% Top Sol 2oz TOPIC SCH (19:54)
[2020-03-17] MEDS ORDERED: NS 275ml ONE (20:02)
[2020-03-17] MEDS ORDERED: Tubing IV Secondary IV ONE (20:02)
[2020-03-17] MEDS: Epoetin Alfa-EPBX (NON ESRD)4000 units/ml vial SUBQ SCH (20:22)
[2020-03-17] MEDS: Epoetin Alfa-EPBX (NON ESRD) 3000 units/ml vial SUBQ SCH (20:23)
[2020-03-18] VITALS: BP 161/90
--- NOTE | 2020-03-18 03:22 | Cardiology Progress Note ---
Subjective DATE OF SERVICE: Mar 17, 2020 Seizure episode noted; lorazepam given On vent via trach Still with small amount of GI blood loss, but hemoglobin stable. On IV fluids BP trend stabilized; remains off pressors Monitor: sinus/sinus tachycardia Objective Last 24 Hour Vital Signs Date Time Temp Pulse Resp B/P (MAP) Pulse Ox O2 Delivery O2 Flow Rate FiO2 03/18/20 03:12 91 27 30 03/18/20 00:33 161/90 03/18/20 00:00 30 03/18/20 00:00 98.1 84 29 161/90 (113) 95 03/18/20 00:00 Mechanical Ventilator 03/18/20 00:00 83 03/17/20 22:49 86 03/17/20 22:26 78 26 30 03/17/20 21:00 30 03/17/20 21:00 98.6 34 158/87 (110) 98 03/17/20 20:00 74 03/17/20 20:00 98.7 25 137/80 (99) 95 03/17/20 20:00 Mechanical Ventilator 03/17/20 19:26 73 26 30 03/17/20 19:00 74 25 134/71 (92) 95 03/17/20 18:00 76 17 133/76 (95) 98 03/17/20 17:00 69 26 138/84 (102) 99 03/17/20 16:12 70 26 30 03/17/20 16:00 98.8 73 28 144/85 (104) 98 03/17/20 16:00 30 03/17/20 16:00 74 03/17/20 16:00 Mechanical Ventilator 03/17/20 15:00 68 26 131/82 (98) 98 03/17/20 14:00 47 15 140/82 (101) 96 03/17/20 13:00 70 24 146/75 (98) 98 03/17/20 12:00 98.8 72 26 142/77 (98) 97 03/17/20 12:00 Mechanical Ventilator 03/17/20 12:00 57 03/17/20 12:00 30 03/17/20 11:00 73 26 145/79 (101) 98 03/17/20 10:55 69 26 30 03/17/20 10:00 73 27 148/82 (104) 98 03/17/20 09:00 68 26 147/83 (104) 98 03/17/20 08:00 98.6 66 26 142/75 (97) 98 03/17/20 08:00 30 03/17/20 08:00 Mechanical Ventilator 03/17/20 08:00 68 03/17/20 07:15 68 26 30 03/17/20 07:00 69 26 144/80 (101) 98 03/17/20 06:00 70 25 145/78 (100) 98 03/17/20 05:00 70 25 146/74 (98) 98 03/17/20 04:00 Mechanical Ventilator 03/17/20 04:00 30 03/17/20 04:00 74 03/17/20 04:00 98.8 71 26 144/82 (102) 98 03/17/20 03:30 70 26 30 ROS: unchanged from my dictation of 03/05/20 HEENT: Mechanically Ventilated, Thick Trach secretions RHYTHM: ST LUNGS: bilateral rhonchi CARDIAC: regular rhythm, normal S1 and S2, tachycardia ABDOMEN: normal bowel sounds, non tender, soft, no organomegaly, decreased bowel sounds, slightly distended, G-Tube intact EXTREMITIES: no calf tenderness, pitting edema - dependent Laboratory Tests Test 03/17/20 04:00 White Blood Count 6.8 K/UL (4.8-10.8) Red Blood Count 2.89 M/UL (4.70-6.10) L Hemoglobin 8.7 G/DL (14.2-18.0) L Hematocrit 25.4 % (42.0-52.0) L Mean Corpuscular Volume 88 FL (80-99) Mean Corpuscular Hemoglobin 30.0 PG (27.0-31.0) Mean Corpuscular Hemoglobin Concent 34.1 G/DL (32.0-36.0) Red Cell Distribution Width 14.5 % (11.6-14.8) Platelet Count 216 K/UL (150-450) Mean Platelet Volume 6.3 FL (6.5-10.1) L Neutrophils (%) (Auto) 65.4 % (45.0-75.0) Lymphocytes (%) (Auto) 19.5 % (20.0-45.0) L Monocytes (%) (Auto) 9.2 % (1.0-10.0) Eosinophils (%) (Auto) 4.6 % (0.0-3.0) H Basophils (%) (Auto) 1.2 % (0.0-2.0) Sodium Level 138 MMOL/L (136-145) Potassium Level 3.4 MMOL/L (3.5-5.1) L Chloride Level 106 MMOL/L (98-107) Carbon Dioxide Level 25 MMOL/L (21-32) Anion Gap 7 mmol/L (5-15) Blood Urea Nitrogen 50 mg/dL (7-18) H Creatinine 2.5 MG/DL (0.55-1.30) H Estimat Glomerular Filtration Rate 25.2 mL/min (>60) Glucose Level 116 MG/DL (74-106) H Calcium Level 7.1 MG/DL (8.5-10.1) L Total Bilirubin 0.3 MG/DL (0.2-1.0) Aspartate Amino Transf (AST/SGOT) 24 U/L (15-37) Alanine Aminotransferase (ALT/SGPT) 10 U/L (12-78) L Alkaline Phosphatase 76 U/L (46-116) Total Protein 5.3 G/DL (6.4-8.2) L Albumin 0.9 G/DL (3.4-5.0) L Globulin 4.4 g/dL Albumin/Globulin Ratio 0.2 (1.0-2.7) L Microbiology Date/Time Source Procedure Growth Status 03/15/20 18:30 Stool Clostridium difficile Toxin Assay - Final Complete 03/15/20 15:05 Nasopharynx SARS-CoV-2 RdRp Gene Assay - Final Complete Assessment/Plan Assessment/Plan Sepsis with shock recovered Respiratory Failure Lactic acidosis resolved Sinus tachycardia/PAFib Acute renal failure Aspiration PNA Leukocytosis Anemia GI Bleeding due to gastric ulcer Dysphagia with GTube Severe protein/calorie malnutrition Hypokalemia Hypomagnesemia Seizure disorder Vent support Antimicrobials IVF with bicarb DVT prophylaxis Continue to transfuse PRBC's for hemoglobin below 7 gm/dl. AntiHTN rx prn for now; may need to advance soon. Protein suppl Potassium and magnesium supplement as needed Anti-sz therapy Franko Pineda MD Mar 18, 2020 03:22
[2020-03-18 04:00] VITALS: BP 135/103
[2020-03-18 05:41] LABS: BASOPHILS % (AUTO) 1.1 % (0.0-2.0); EOSINOPHILS % (AUTO) 2.1 % (0.0-3.0); HEMATOCRIT 26.9 % (42.0-52.0); HEMOGLOBIN 9.3 G/DL (14.2-18.0); LYMPHOCYTES % (AUTO) 15.5 % (20.0-45.0); MEAN CORPUSCULAR VOLUME 90 FL (80-99); MONOCYTES % (AUTO) 9.8 % (1.0-10.0); NEUTROPHILS % (AUTO) 71.5 % (45.0-75.0); PLATELET COUNT 233 K/UL (150-450); RED BLOOD COUNT 3.01 M/UL (4.70-6.10); RED CELL DISTRIBUTION WIDTH 14.9 % (11.6-14.8); WHITE BLOOD COUNT 7.9 K/UL (4.8-10.8)
[2020-03-18] MEDS: Zinc Oxide Oint 2oz TOPIC SCH ×2 (06:13→13:59)
[2020-03-18] MEDS: Phenytoin Susp 100mg/4ml GT SCH ×2 (06:13→13:58)
[2020-03-18 06:30] LABS: ALBUMIN 0.9 G/DL (3.4-5.0); ALBUMIN/GLOBULIN RATIO 0.2 (1.0-2.7); BILIRUBIN,TOTAL 0.3 MG/DL (0.2-1.0); CALCIUM 6.7 MG/DL (8.5-10.1); CREATININE 2.4 MG/DL (0.55-1.30); POTASSIUM 3.8 MMOL/L (3.5-5.1)
[2020-03-18 08:00] VITALS: BP 141/78
--- NOTE | 2020-03-18 08:34 | General Progress Note ---
Subjective ROS Limited/Unobtainable: Yes Constitutional: Reports: malaise, weakness HEENT: Reports: no symptoms Cardiovascular: Reports: no symptoms Respiratory: Reports: sputum Gastrointestinal/Abdominal: Reports: difficulty swallowing Genitourinary: Reports: no symptoms Neurologic/Psychiatric: Reports: pre-existing deficit, seizure Endocrine: Reports: no symptoms Hematologic/Lymphatic: Reports: anemia Allergies: Coded Allergies: No Known Allergies (Unverified , 02/23/12) All Systems: reviewed and negative except above Subjective no events. stable on the vent. no reports of bleeding. no fevers. labs reviewed. tolerating feeds. no szs, remains on ivf Objective Last 24 Hour Vital Signs Date Time Temp Pulse Resp B/P (MAP) Pulse Ox O2 Delivery O2 Flow Rate FiO2 03/18/20 07:28 96 26 30 03/18/20 04:00 Mechanical Ventilator 03/18/20 04:00 84 03/18/20 04:00 97.7 78 20 135/103 (114) 99 03/18/20 04:00 30 03/18/20 03:12 91 27 30 03/18/20 00:33 161/90 03/18/20 00:00 30 03/18/20 00:00 98.1 84 29 161/90 (113) 95 03/18/20 00:00 Mechanical Ventilator 03/18/20 00:00 83 03/17/20 22:49 86 03/17/20 22:26 78 26 30 03/17/20 21:00 30 03/17/20 21:00 98.6 34 158/87 (110) 98 03/17/20 20:00 74 03/17/20 20:00 98.7 25 137/80 (99) 95 03/17/20 20:00 Mechanical Ventilator 03/17/20 19:26 73 26 30 03/17/20 19:00 74 25 134/71 (92) 95 03/17/20 18:00 76 17 133/76 (95) 98 03/17/20 17:00 69 26 138/84 (102) 99 03/17/20 16:12 70 26 30 03/17/20 16:00 98.8 73 28 144/85 (104) 98 03/17/20 16:00 30 03/17/20 16:00 74 03/17/20 16:00 Mechanical Ventilator 03/17/20 15:00 68 26 131/82 (98) 98 03/17/20 14:00 47 15 140/82 (101) 96 03/17/20 13:00 70 24 146/75 (98) 98 03/17/20 12:00 98.8 72 26 142/77 (98) 97 03/17/20 12:00 Mechanical Ventilator 03/17/20 12:00 57 03/17/20 12:00 30 03/17/20 11:00 73 26 145/79 (101) 98 03/17/20 10:55 69 26 30 03/17/20 10:00 73 27 148/82 (104) 98 03/17/20 09:00 68 26 147/83 (104) 98 Intake and Output 03/17/20 03/18/20 19:00 07:00 Intake Total 1637.5 ml 1432.5 ml Output Total 860 ml 1750 ml Balance 777.5 ml -317.5 ml Free Water 120 ml 160 ml IV Total 1217.5 ml 942.5 ml Tube Feeding 300 ml 330 ml Output Urine Total 780 ml 1300 ml Stool Total 80 ml 450 ml Laboratory Tests 03/18/20 03:50: White Blood Count 7.9, Red Blood Count 3.01L, Hemoglobin 9.3L, Hematocrit 26.9L, Mean Corpuscular Volume 90, Mean Corpuscular Hemoglobin 30.8, Mean Corpuscular Hemoglobin Concent 34.4, Red Cell Distribution Width 14.9H, Platelet Count 233, Mean Platelet Volume 6.4L, Neutrophils (%) (Auto) 71.5, Lymphocytes (%) (Auto) 15.5L, Monocytes (%) (Auto) 9.8, Eosinophils (%) (Auto) 2.1, Basophils (%) (Auto) 1.1, Sodium Level 135L, Potassium Level 3.8, Chloride Level 103, Carbon Dioxide Level 24, Anion Gap 8, Blood Urea Nitrogen 48H, Creatinine 2.4H, Estimat Glomerular Filtration Rate 26.4, Glucose Level 100, Calcium Level 6.7L, Total Bilirubin 0.3, Aspartate Amino Transf (AST/SGOT) 27, Alanine Aminotransferase (ALT/SGPT) 12, Alkaline Phosphatase 87, Total Protein 5.8L, Albumin 0.9L, Globulin 4.9, Albumin/Globulin Ratio 0.2L Height (Feet): 5 Height (Inches): 7.00 Weight (Pounds): 124 Objective General Appearance: WD/WN, cachetic, thin EENT: normal ENT inspection Neck: non-tender, normal alignment, supple Cardiovascular: normal rate, regular rhythm Respiratory/Chest: chest wall non-tender, lungs clear, normal breath sounds, no respiratory distress, no accessory muscle use Abdomen: normal bowel sounds, non tender, soft, no organomegaly, no mass Edema: no edema noted Arm (L), no edema noted Arm (R) Neurologic: disoriented, unresponsive, aphasia Skin: normal pigmentation Lymphatic: normal anterior cervical (L), normal anterior cervical (R) Assessment/Plan Problem List: (1) GIB (gastrointestinal bleeding) ICD Codes: K92.2 - Gastrointestinal hemorrhage, unspecified SNOMED: 77755108 (2) Sepsis ICD Codes: A41.9 - Sepsis, unspecified organism SNOMED: 49529767 Qualifiers: Qualified Codes: A41.9 - Sepsis, unspecified organism; R65.20 - Severe sepsis without septic shock; N17.9 - Acute kidney failure, unspecified (3) Respiratory failure ICD Codes: J96.90 - Respiratory failure, unspecified, unspecified whether with hypoxia or hypercapnia SNOMED: 483588719 Qualifiers: Qualified Codes: J96.01 - Acute respiratory failure with hypoxia (4) Aspiration pneumonia ICD Codes: J69.0 - Pneumonitis due to inhalation of food and vomit SNOMED: 636194737 Qualifiers: Qualified Codes: O74.0 - Aspiration pneumonitis due to anesthesia during labor and delivery (5) HCAP (healthcare-associated pneumonia) ICD Codes: J18.9 - Pneumonia, unspecified organism SNOMED: 282677148, 596045003 (6) ARF (acute renal failure) ICD Codes: N17.9 - Acute kidney failure, unspecified SNOMED: 21934039, 405470287 Qualifiers: Qualified Codes: N17.9 - Acute kidney failure, unspecified Status: stable, unchanged Assessment/Plan: follow up labs transfuse as needed protonix po vent support resp rx thyroid replacement monitor sz keppra po added dilantin bp rx replace K dc planning if ok with all full code per Jimi Martinez MD Mar 18, 2020 08:34
[2020-03-18] MEDS: Ascorbic Acid 500mg tab GT SCH (10:10)
[2020-03-18] MEDS: Sodium Bicarbonate 50 ML in D5W 1000ml 1,000 ML IV SCH (11:22)
[2020-03-18] MEDS ORDERED: LORazepam 1mg tab GT PRN (11:30)
[2020-03-18] MEDS: levETIRAcetam 750 MG in NS 110 ML IV SCH (11:39)
[2020-03-18 12:00] VITALS: BP 138/89
--- NOTE | 2020-03-18 12:16 | Pulmonolgy Critical Care Note ---
Critical Care - Asmt/Plan Assessment/Plan: Pulmonary Progress Note HPI Patient is a 79-year-old male with a history of respiratory failure with tracheostomy and feeding tube. He has a history of epilepsy, kidney disease q uadriplegia. He presents with chief complaint of nausea and vomiting with coffee-ground emesis, respiratory distress. No reported fever. No diarrhea. Patient is coming from a assisted. History is from the assisted and EMS. Patient unable to give any history. Stable on AC ventilation Allergies: No Known Allergies Past Medical History: Vent, Trach, Prev Pseudomonal Pneumonia, Paroxysmal Atrial Fibrillation, Diabetes, CRI, Anemia, Prev CVA,Prev CPA, Seizure history, chronically AMS, hypothyroidism, GERD, dysphagia Physical Exam Vital Signs Noted General Appearance: sedated on the ventilator, Chronically Ill Head: normocephalic, atraumatic Eyes: bilateral eye PERRL, bilateral eye EOMI ENT: no masses, dry mucus membranes Neck: full range of motion, supple, tracheotomy Respiratory: chest non-tender, respiratory distress, ctab Cardiovascular : regular rate, rhythm, HS1, HS2 normal,no murmur, tachycardia Gastrointestinal: normal bowel sounds, non tender, no mass, no organomegaly, no bruit, non-distended, other - G-tube, femoral line Musculoskeletal: mild wasting Neurologic: no seizures Assessment/Plan Upper GI bleed Anemia due to acute blood loss H/o GERD, previous G tube Chronic Tracheostomy, Respiratory failure with elevatedCO2 Aspiration pneumonia Sepsis Renal insufficiency, hyperkalemia, metabolic acidosis Previous Pseudomonal Pneumonia H/o Paroxysmal Atrial Fibrillation Diabetes CRI Anemia s/p transfusion Prev CVA Chronic encephalopathy Seizure history Hypothyroidism Tachycardia pleural effusions anasarca with ascites rectal tube PLAN care noted in detail IV antibiotics noted respiratory noted- vent assessed Ventilatory support as is off load and position change replace lytes as needed monitor fluid balance pressors off as able SNF meds noted supportive care GI recommendations suction and monitor secretions no wean planned full support for now oxygen therapy prognosis poor for recovery monitor need for transfusion and further interventions as needed full code medications/laboratory data/nursing notes/ICU care reviewed in detail note reviewed and edited care discussed with RN and RT CXR: Tracheostomy, bilayteral basal infiltartes Laboratory Tests Noted Critical Care - Objective Last 24 Hour Vital Signs Date Time Temp Pulse Resp B/P (MAP) Pulse Ox O2 Delivery O2 Flow Rate FiO2 03/18/20 10:44 87 26 30 03/18/20 08:00 Mechanical Ventilator 03/18/20 08:00 97.4 87 18 141/78 (99) 100 03/18/20 08:00 30 03/18/20 07:28 96 26 30 03/18/20 04:00 Mechanical Ventilator 03/18/20 04:00 84 03/18/20 04:00 97.7 78 20 135/103 (114) 99 03/18/20 04:00 30 03/18/20 03:12 91 27 30 03/18/20 00:33 161/90 03/18/20 00:00 30 03/18/20 00:00 98.1 84 29 161/90 (113) 95 03/18/20 00:00 Mechanical Ventilator 03/18/20 00:00 83 03/17/20 22:49 86 03/17/20 22:26 78 26 30 03/17/20 21:00 30 03/17/20 21:00 98.6 34 158/87 (110) 98 03/17/20 20:00 74 03/17/20 20:00 98.7 25 137/80 (99) 95 03/17/20 20:00 Mechanical Ventilator 03/17/20 19:26 73 26 30 03/17/20 19:00 74 25 134/71 (92) 95 03/17/20 18:00 76 17 133/76 (95) 98 03/17/20 17:00 69 26 138/84 (102) 99 03/17/20 16:12 70 26 30 03/17/20 16:00 98.8 73 28 144/85 (104) 98 03/17/20 16:00 30 03/17/20 16:00 74 03/17/20 16:00 Mechanical Ventilator 03/17/20 15:00 68 26 131/82 (98) 98 03/17/20 14:00 47 15 140/82 (101) 96 03/17/20 13:00 70 24 146/75 (98) 98 Micro: Microbiology Date/Time Source Procedure Growth Status 03/15/20 18:30 Stool Clostridium difficile Toxin Assay - Final Complete 03/15/20 15:05 Nasopharynx SARS-CoV-2 RdRp Gene Assay - Final Complete Accucheck: 108 Critical Care - Subjective ROS Limited/Unobtainable: Yes Condition: stable FI02: 30 Vent Support Breath Rate: 26 Vent Support Mode: AC Vent Tidal Volume: 450 Sputum Amount: Moderate PEEP: 5.0 PIP: 40 Tube Feeding Amount: 30 I&O: Intake and Output 03/17/20 03/18/20 19:00 07:00 Intake Total 1637.5 ml 1432.5 ml Output Total 860 ml 1750 ml Balance 777.5 ml -317.5 ml Free Water 120 ml 160 ml IV Total 1217.5 ml 942.5 ml Tube Feeding 300 ml 330 ml Output Urine Total 780 ml 1300 ml Stool Total 80 ml 450 ml Franko Flynn MD Mar 18, 2020 12:16
--- NOTE | 2020-03-18 15:02 | Surgery Progress Note ---
Surgery Progress Note Subjective Additional Comments afebrile HD stable labs okay no n/v downgraded Objective Last 24 Hour Vital Signs Date Time Temp Pulse Resp B/P (MAP) Pulse Ox O2 Delivery O2 Flow Rate FiO2 03/18/20 12:00 30 03/18/20 12:00 Mechanical Ventilator 03/18/20 12:00 97.3 84 21 138/89 (105) 97 03/18/20 10:44 87 26 30 03/18/20 08:00 Mechanical Ventilator 03/18/20 08:00 97.4 87 18 141/78 (99) 100 03/18/20 08:00 30 03/18/20 07:28 96 26 30 03/18/20 04:00 Mechanical Ventilator 03/18/20 04:00 84 03/18/20 04:00 97.7 78 20 135/103 (114) 99 03/18/20 04:00 30 03/18/20 03:12 91 27 30 03/18/20 00:33 161/90 03/18/20 00:00 30 03/18/20 00:00 98.1 84 29 161/90 (113) 95 03/18/20 00:00 Mechanical Ventilator 03/18/20 00:00 83 03/17/20 22:49 86 03/17/20 22:26 78 26 30 03/17/20 21:00 30 03/17/20 21:00 98.6 34 158/87 (110) 98 03/17/20 20:00 74 03/17/20 20:00 98.7 25 137/80 (99) 95 03/17/20 20:00 Mechanical Ventilator 03/17/20 19:26 73 26 30 03/17/20 19:00 74 25 134/71 (92) 95 03/17/20 18:00 76 17 133/76 (95) 98 03/17/20 17:00 69 26 138/84 (102) 99 03/17/20 16:12 70 26 30 03/17/20 16:00 98.8 73 28 144/85 (104) 98 03/17/20 16:00 30 03/17/20 16:00 74 03/17/20 16:00 Mechanical Ventilator I&O Intake and Output 03/17/20 03/18/20 19:00 07:00 Intake Total 1637.5 ml 1432.5 ml Output Total 860 ml 1750 ml Balance 777.5 ml -317.5 ml Free Water 120 ml 160 ml IV Total 1217.5 ml 942.5 ml Tube Feeding 300 ml 330 ml Output Urine Total 780 ml 1300 ml Stool Total 80 ml 450 ml Dressing: other Wound: other Cardiovascular: RSR Respiratory: decreased breath sounds Abdomen: soft, non-tender, present bowel sounds Extremities: no tenderness, no cyanosis Laboratory Tests Test 03/18/20 03:50 White Blood Count 7.9 K/UL (4.8-10.8) Red Blood Count 3.01 M/UL (4.70-6.10) L Hemoglobin 9.3 G/DL (14.2-18.0) L Hematocrit 26.9 % (42.0-52.0) L Mean Corpuscular Volume 90 FL (80-99) Mean Corpuscular Hemoglobin 30.8 PG (27.0-31.0) Mean Corpuscular Hemoglobin Concent 34.4 G/DL (32.0-36.0) Red Cell Distribution Width 14.9 % (11.6-14.8) H Platelet Count 233 K/UL (150-450) Mean Platelet Volume 6.4 FL (6.5-10.1) L Neutrophils (%) (Auto) 71.5 % (45.0-75.0) Lymphocytes (%) (Auto) 15.5 % (20.0-45.0) L Monocytes (%) (Auto) 9.8 % (1.0-10.0) Eosinophils (%) (Auto) 2.1 % (0.0-3.0) Basophils (%) (Auto) 1.1 % (0.0-2.0) Sodium Level 135 MMOL/L (136-145) L Potassium Level 3.8 MMOL/L (3.5-5.1) Chloride Level 103 MMOL/L (98-107) Carbon Dioxide Level 24 MMOL/L (21-32) Anion Gap 8 mmol/L (5-15) Blood Urea Nitrogen 48 mg/dL (7-18) H Creatinine 2.4 MG/DL (0.55-1.30) H Estimat Glomerular Filtration Rate 26.4 mL/min (>60) Glucose Level 100 MG/DL (74-106) Calcium Level 6.7 MG/DL (8.5-10.1) L Total Bilirubin 0.3 MG/DL (0.2-1.0) Aspartate Amino Transf (AST/SGOT) 27 U/L (15-37) Alanine Aminotransferase (ALT/SGPT) 12 U/L (12-78) Alkaline Phosphatase 87 U/L (46-116) Total Protein 5.8 G/DL (6.4-8.2) L Albumin 0.9 G/DL (3.4-5.0) L Globulin 4.9 g/dL Albumin/Globulin Ratio 0.2 (1.0-2.7) L Plan Problems: (1) Respiratory failure (2) GIB (gastrointestinal bleeding) Assessment & Plan: 79-year-old male with leukocytosis, anemia, NG tube inserted and bright blood identified. Plan for urgent EGD today. Protonix IV N.p.o. IV fluid resuscitation PRBC transfusion trend labs Care plan discussed with GI will await EGD findings Thank you for let me participate in patient's care will follow with recommen dations EGD findings noted discussed with GI NG tube placed Continuous gastric irrigation and suction initiated plan for repeat scope soon repeat scope noted unchanged cannot remove clot CT reviewed surgery too high risk no active bleeding trend h/h start tf plan to repeat scope next week discussed with GI hold on surgery repeat scope showed clot gone and healing ulcer cont ppi There is a rectal tube in place. The balloon is likely inflated within the anal canal rather than the distal rectum. There is marked rectal wall thickening and considerable edema of the perirectal fat. Prominent gas-filled right upper quadrant bowel seen on recent plain radiographs is demonstrated to be the cecum. Although the sacrum appears quite wide in transverse dimension (approximately 11.5 cm) it is not particularly distended in the AP plane, measuring 4.9 cm AP. The anatomy of the ascending colon and hepatic flexure is not well-defined, and it is unclear whether this represents a possible cecal bascule versus an unusually positioned but otherwise normal cecum. No definite wall thickening is evident. The terminal ileum is normal in caliber or collapsed. The remainder of the small bowel appears mildly dilated, gas and fluid-filled, and the transition point appears to be gradual. No definite small bowel wall thickening. There is a gastrostomy tube which appears to be well positioned at the gastric antrum body junction.. The stomach is distended. The gastric antrum and proximal duodenum appears somewhat thick walled. Ingested contrast has traversed a portion of the proximal small bowel. There is considerable material dependently within the stomach, displacing the ingested contrast. Surgical clips are seen in the mesenteric root inferior to the pancreatic tail and anterior to the proximal jejunum There is moderate free intraperitoneal fluid. No free intraperitoneal gas is demonstrated. Lack of IV contrast limits assessment of the solid organs. The liver, gallbladder, bile ducts, pancreas, spleen, adrenals, right kidney are unremarkable. Left kidney demonstrates a lower pole cyst. The bladder is mildly distended, and minimally thick-walled. There are bilateral right greater than left pleural effusions. There is bilateral basilar pulmonary parenchymal consolidation and/or edema consolidation. The heart is upper limits normal in size. There is extensive edema of the subcutaneous fat, less extensive edema of the mesenteric and retroperitoneal fat. The bones demonstrate a compression fracture deformity of the L1 vertebral body. There are degenerative changes at the lumbosacral junction. Impression: Poorly delineated cecal and ascending colon anatomy. Dilated bowel loop in the right upper quadrant seen on recent plain radiograph is demonstrated to be the cecum. It is dilated, although less severely than is suggested by the plain radiograph. The tip of the cecum is pointed cephalad. There is also dilatation of most of the small bowel, which is dilated, gas and fluid-filled, but the terminal ileum is nondilated. There is not a definite abrupt transition point. Findings may be purely on the basis of ileus with variant cecal anatomy and unusual hepato- colonic interposition, but the possibility of a cecal bascule or internal hernia causing ascending colon and/or distal small bowel obstruction should also be considered. Rectal tube balloon is dilated within the anal canal. Recommend deflation and repositioning Wall thickening of the distal sigmoid and rectum, with edema of the perirectal/perisigmoid fat, concerning for colitis. Distended stomach. Given stated clinical history of GI bleeding, material within the gastric fundus displacing the contrast likely represents blood clots, but any of this could also represent an endophytic mass lesion. There is no rand gastric fundal wall thickening. There is some wall thickening of the gastric antrum and duodenum, although this could in part be an artifact of lack of distention. Gastrostomy is in good position Moderate ascites Bilateral pleural effusions. Bilateral parenchymal consolidation, may reflect pulmonary edema versus parenchymal infiltrates Other evidence of anasarca, with diffuse edema of the subcutaneous fat, less severe edema of the abdominal fat L1 vertebral body compression fracture, age-indeterminate Other findings as noted, including degenerative spondylosis, left lower pole renal cyst. (3) Aspiration pneumonia (4) Sepsis (5) ARF (acute renal failure) (6) HCAP (healthcare-associated pneumonia) (7) Dehydration (8) Hypokalemia (9) Hyperkalemia (10) Anemia (11) Decubitus skin ulcer Assessment & Plan: Pt presented on admission with gross contractures, Multiple Pressure Injuries, Tracheostomy. Skin Assessed under tracheal collar and no evidence of skin breakdown noted. Tear noted to urinary meatus- no exudate noted. Scrotum is erythematous with scattered satellite lesions. Large ulcer noted to R scrotal sac (L)4cm x (W)4.6cm. Base of wound is erythematous ,moist with Biofilm. Sacral DTPI with clusters of small islands of slough with surrounding maroon and indurated areas (L)8cm x (W)12cm.Mild Odor noted. Partial thickness Pressure Injury Upper/outer R buttocks(L)1.8cm x (W)1.3cm. Base of wound is moist and viable. Edges adherent to base of wound. Surrounding non-blanching erythema with scattered areas of shearing noted. Partial thickness Pressure Inferior lower R buttocks.(L)0.8cm x (W)1.2cm. Base o f wound is moist and viable. Edges adherent to base of wound. Surrounding non- blanching erythema with scattered shearing noted extending into R ischial tuberosity. Clusters of small hyperpigmentation noted to L trochanteric and L ischial tuberosity. R Heel is fluctuant with scattered dry eschar and surrounding Non-Blanchable erythema.(L)6.5cm x (W)8cm. DTPI distal/lateral R foot(L)3cm x (W)3cm. Base of wound is maroon and fluctuant. dry eschar noted to tip of R 1st metatarsal with surrounding non-blanchable erythema extending dorsally and laterally of metatarsal(L)5cm x (W)1.3cm Non-Blanchable erythema that is fluctuant at base noted to dorso/lateral L 5th metatarsal(L)0.6cm x (W)0.3cm. L Heel is boggy with non-blanchable erythema laterally. Hyperpigmentation from previous wound noted at L heel. Tx.Plan: Cleanse Sacral wound with Saline. Apply TheraHoney to slough. Apply Moisture Barrier Paste periwound. Cover with Optifoam drsg. Change daily and prn. Apply Moisture Barrier Paste to Wounds R upper and lower R Buttocks. Cover each wound with Optifoam drsg. Change every 3 days and prn. Apply Zinc Oxide Paste to Scrotal Wounds TID and prn. Apply Betadine to wounds R heel and R foot . Cover with ABD Pads and wrap with Kerlix every 3 days and prn. Apply Betadine to L foot. Cover with ABD Pads and wrap with Kerlix e very 3 days and prn. Cover Bony Prominences as needed with Optifoam drsgs. Reposition at least every 2hours or as tolerated. Off-load heels with pillow. APM/VIRAL Mattress DAILY ESTIMATED NEEDS: Needs based on Critical care, sepsis 56kg 25-30 kcals/kg 5534-7343 total kcals 1.25-2 g protein/kg 70-112 g total protein 25-30 mL/kg 2156-6914 total fluid mLs NUTRITION DIAGNOSIS: Swallowing difficulty r/ respiratory status as evidenced by pt is vent dep via trach, PEG dep. CURRENT TF:NPO FOR EGD ENTERAL NUTRITION RECOMMENDATIONS: Vital AF 1.2 @ 50ml/hr x 24 hrs to provide 1200ml, 1440kcal, 90g prot, 973ml free water - W/ continued improving renal fxn + consistently low lytes and diarrhea, rec TF change to Vital AF 1.2 (Nepro is no longer necessary) - Rec Vital AF 1.2 @ goal rate of 50ml/hr x 24 hrs - Flush per MD, HOB over 30 degrees IF IV SYNTHROID CHANEGS TO GT SYNTHROID -> Vital AF 1.2 @55ml/hr x22 hrs (hold 1 hr before and after Synthroid) to provide 1210ml, 1452 kcal, 91g pro, 981ml free H2O ADDITIONAL RECOMMENDATIONS: 1) Calibrated bed scale wts as able-> now w/ added P200 mattress 2) Monitor renal labs and lytes -> improving, lytes low, rec TF change as Nepro no longer necessary 3) Wound care: add Vit C 250mg daily . + Kirill BID via GT 4) Rec probiotics for diarrhea . 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
[2020-03-18] MEDS ORDERED: NS Irrig 1000ml ONE (17:39)
[2020-03-18] MEDS ORDERED: NS 275ml ONE ×2 (17:39)
[2020-03-18] MEDS ORDERED: Tubing IV Secondary IV ONE (17:39)
--- NOTE | 2020-03-18 19:03 | Nephrology Progress Note ---
Assessment/Plan Assessment 1) S/P septic shock' 2) Fluid overload/CHF 3) COPD 4) AUDREY Plan: Stop IV fluid Lasix 80 mg IV x1 KCL 40 MEQ po x1 Subjective Subjective He is somewhat sob, no c/p , creat is 2.4 , good U/o Objective Objective Last 24 Hour Vital Signs Date Time Temp Pulse Resp B/P (MAP) Pulse Ox O2 Delivery O2 Flow Rate FiO2 03/18/20 14:45 80 26 30 03/18/20 12:00 30 03/18/20 12:00 65 03/18/20 12:00 Mechanical Ventilator 03/18/20 12:00 97.3 84 21 138/89 (105) 97 03/18/20 10:44 87 26 30 03/18/20 08:00 Mechanical Ventilator 03/18/20 08:00 97.4 87 18 141/78 (99) 100 03/18/20 08:00 82 03/18/20 08:00 30 03/18/20 07:28 96 26 30 03/18/20 04:00 Mechanical Ventilator 03/18/20 04:00 84 03/18/20 04:00 97.7 78 20 135/103 (114) 99 03/18/20 04:00 30 03/18/20 03:12 91 27 30 03/18/20 00:33 161/90 03/18/20 00:00 30 03/18/20 00:00 98.1 84 29 161/90 (113) 95 03/18/20 00:00 Mechanical Ventilator 03/18/20 00:00 83 03/17/20 22:49 86 03/17/20 22:26 78 26 30 03/17/20 21:00 30 03/17/20 21:00 98.6 34 158/87 (110) 98 03/17/20 20:00 74 03/17/20 20:00 98.7 25 137/80 (99) 95 03/17/20 20:00 Mechanical Ventilator 03/17/20 19:26 73 26 30 Intake and Output 03/17/20 03/18/20 19:00 07:00 Intake Total 1637.5 ml 1432.5 ml Output Total 860 ml 1750 ml Balance 777.5 ml -317.5 ml Free Water 120 ml 160 ml IV Total 1217.5 ml 942.5 ml Tube Feeding 300 ml 330 ml Output Urine Total 780 ml 1300 ml Stool Total 80 ml 450 ml Laboratory Tests 03/18/20 03:50: White Blood Count 7.9, Red Blood Count 3.01L, Hemoglobin 9.3L, Hematocrit 26.9L, Mean Corpuscular Volume 90, Mean Corpuscular Hemoglobin 30.8, Mean Corpuscular Hemoglobin Concent 34.4, Red Cell Distribution Width 14.9H, Platelet Count 233, Mean Platelet Volume 6.4L, Neutrophils (%) (Auto) 71.5, Lymphocytes (%) (Auto) 15.5L, Monocytes (%) (Auto) 9.8, Eosinophils (%) (Auto) 2.1, Basophils (%) (Auto) 1.1, Sodium Level 135L, Potassium Level 3.8, Chloride Level 103, Carbon Dioxide Level 24, Anion Gap 8, Blood Urea Nitrogen 48H, Creatinine 2.4H, Estimat Glomerular Filtration Rate 26.4, Glucose Level 100, Calcium Level 6.7L, Total Bilirubin 0.3, Aspartate Amino Transf (AST/SGOT) 27, Alanine Aminotransferase (ALT/SGPT) 12, Alkaline Phosphatase 87, Total Protein 5.8L, Albumin 0.9L, Globulin 4.9, Albumin/Globulin Ratio 0.2L Height (Feet): 5 Height (Inches): 7.00 Weight (Pounds): 124 General Appearance: WD/WN EENT: PERRL/EOMI Neck: non-tender Cardiovascular: JVD - high Respiratory/Chest: crackles/rales Abdomen: normal bowel sounds, non tender Extremities: moderate edema Neurologic: side boss II-XII grossly normal Rahul King MD Mar 18, 2020 19:03
--- NOTE | 2020-03-19 01:44 | Cardiology Progress Note ---
Subjective DATE OF SERVICE: Mar 18, 2020 No new seizures On vent via trach Still with small amount of GI blood loss, but hemoglobin stable. On IV fluids BP trend stabilized; remains off pressors Monitor: sinus/sinus tachycardia Objective Last 24 Hour Vital Signs Date Time Temp Pulse Resp B/P (MAP) Pulse Ox O2 Delivery O2 Flow Rate FiO2 03/18/20 14:45 80 26 30 03/18/20 12:00 30 03/18/20 12:00 65 03/18/20 12:00 Mechanical Ventilator 03/18/20 12:00 97.3 84 21 138/89 (105) 97 03/18/20 10:44 87 26 30 03/18/20 08:00 Mechanical Ventilator 03/18/20 08:00 97.4 87 18 141/78 (99) 100 03/18/20 08:00 82 03/18/20 08:00 30 03/18/20 07:28 96 26 30 03/18/20 04:00 Mechanical Ventilator 03/18/20 04:00 84 03/18/20 04:00 97.7 78 20 135/103 (114) 99 03/18/20 04:00 30 03/18/20 03:12 91 27 30 ROS: unchanged from my dictation of 03/05/20 HEENT: Mechanically Ventilated, Thick Trach secretions RHYTHM: ST LUNGS: bilateral rhonchi CARDIAC: regular rhythm, normal S1 and S2, tachycardia ABDOMEN: normal bowel sounds, non tender, soft, no organomegaly, decreased bowel sounds, slightly distended, G-Tube intact EXTREMITIES: no calf tenderness, pitting edema - dependent Laboratory Tests Test 03/18/20 03:50 White Blood Count 7.9 K/UL (4.8-10.8) Red Blood Count 3.01 M/UL (4.70-6.10) L Hemoglobin 9.3 G/DL (14.2-18.0) L Hematocrit 26.9 % (42.0-52.0) L Mean Corpuscular Volume 90 FL (80-99) Mean Corpuscular Hemoglobin 30.8 PG (27.0-31.0) Mean Corpuscular Hemoglobin Concent 34.4 G/DL (32.0-36.0) Red Cell Distribution Width 14.9 % (11.6-14.8) H Platelet Count 233 K/UL (150-450) Mean Platelet Volume 6.4 FL (6.5-10.1) L Neutrophils (%) (Auto) 71.5 % (45.0-75.0) Lymphocytes (%) (Auto) 15.5 % (20.0-45.0) L Monocytes (%) (Auto) 9.8 % (1.0-10.0) Eosinophils (%) (Auto) 2.1 % (0.0-3.0) Basophils (%) (Auto) 1.1 % (0.0-2.0) Sodium Level 135 MMOL/L (136-145) L Potassium Level 3.8 MMOL/L (3.5-5.1) Chloride Level 103 MMOL/L (98-107) Carbon Dioxide Level 24 MMOL/L (21-32) Anion Gap 8 mmol/L (5-15) Blood Urea Nitrogen 48 mg/dL (7-18) H Creatinine 2.4 MG/DL (0.55-1.30) H Estimat Glomerular Filtration Rate 26.4 mL/min (>60) Glucose Level 100 MG/DL (74-106) Calcium Level 6.7 MG/DL (8.5-10.1) L Total Bilirubin 0.3 MG/DL (0.2-1.0) Aspartate Amino Transf (AST/SGOT) 27 U/L (15-37) Alanine Aminotransferase (ALT/SGPT) 12 U/L (12-78) Alkaline Phosphatase 87 U/L (46-116) Total Protein 5.8 G/DL (6.4-8.2) L Albumin 0.9 G/DL (3.4-5.0) L Globulin 4.9 g/dL Albumin/Globulin Ratio 0.2 (1.0-2.7) L Assessment/Plan Assessment/Plan Sepsis with shock recovered Respiratory Failure Lactic acidosis resolved Sinus tachycardia/PAFib Acute renal failure Aspiration PNA Leukocytosis Anemia GI Bleeding due to gastric ulcer Dysphagia with GTube Severe protein/calorie malnutrition Hypokalemia Hypomagnesemia Seizure disorder Vent support Antimicrobials DVT prophylaxis AntiHTN rx prn for now; may need to advance as outpatient. Protein suppl Potassium and magnesium supplement as needed Anti-sz therapy Franko Pineda MD Mar 19, 2020 01:44
[2020-03-19] MEDS ORDERED: Levothyroxine 125mcg tab PEG SCH (06:30)
--- NOTE | 2020-03-19 08:46 | Pulmonolgy Critical Care Note ---
Critical Care - Asmt/Plan Assessment/Plan: Pulmonary Progress Note Patient seen 03 18 2020 HPI Patient is a 79-year-old male with a history of respiratory failure with tracheostomy and feeding tube. He has a history of epilepsy, kidney disease quadriplegia. He presents with chief complaint of nausea and vomiting with coffee-ground emesis, respiratory distress. No reported fever. No diarrhea. Patient is coming from a long term. History is from the long term and E [facility]. Patient unable to give any history. Stable on AC ventilation Allergies: No Known Allergies Past Medical History: Vent, Trach, Prev Pseudomonal Pneumonia, Paroxysmal Atrial Fibrillation, Diabetes, CRI, Anemia, Prev CVA,Prev CPA, Seizure history, chronically AMS, hypothyroidism, GERD, dysphagia Physical Exam Vital Signs Noted General Appearance: sedated on the ventilator, Chronically Ill Head: normocephalic, atraumatic Eyes: bilateral eye PERRL, bilateral eye EOMI ENT: no masses, dry mucus membranes Neck: full range of motion, supple, tracheotomy Respiratory: chest non-tender, respiratory distress, ctab Cardiovascular : regular rate, rhythm, HS1, HS2 normal,no murmur, tachycardia Gastrointestinal: normal bowel sounds, non tender, no mass, no organomegaly, no bruit, non-distended, other - G-tube, femoral line Musculoskeletal: mild wasting Neurologic: no seizures Assessment/Plan Upper GI bleed Anemia due to acute blood loss H/o GERD, previous G tube Chronic Tracheostomy, Respiratory failure with elevatedCO2 Aspiration pneumonia Sepsis Renal insufficiency, hyperkalemia, metabolic acidosis Previous Pseudomonal Pneumonia H/o Paroxysmal Atrial Fibrillation Diabetes CRI Anemia s/p transfusion Prev CVA Chronic encephalopathy Seizure history Hypothyroidism Tachycardia pleural effusions anasarca with ascites rectal tube PLAN care noted in detail IV antibiotics noted respiratory noted- vent assessed Ventilatory support as is off load and position change replace lytes as needed monitor fluid balance pressors off as able SNF meds noted supportive care GI recommendations suction and monitor secretions no wean planned full support for now oxygen therapy prognosis poor for recovery monitor need for transfusion and further interventions as needed full code medications/laboratory data/nursing notes/ICU care reviewed in detail note reviewed and edited care discussed with RN and RT CXR: Tracheostomy, bilateral basal infiltrates Laboratory Tests Noted Patient seen 03 18 2020 Critical Care - Objective Last 24 Hour Vital Signs Date Time Temp Pulse Resp B/P (MAP) Pulse Ox O2 Delivery O2 Flow Rate FiO2 03/18/20 14:45 80 26 30 03/18/20 12:00 30 03/18/20 12:00 65 03/18/20 12:00 Mechanical Ventilator 03/18/20 12:00 97.3 84 21 138/89 (105) 97 03/18/20 10:44 87 26 30 Accucheck: 108 Critical Care - Subjective ROS Limited/Unobtainable: Yes Condition: stable FI02: 30 Vent Support Breath Rate: 26 Vent Support Mode: AC Vent Tidal Volume: 450 Sputum Amount: Moderate PEEP: 5.0 PIP: 33 Tube Feeding Amount: 30 Franko Flynn MD Mar 19, 2020 08:46
--- NOTE | 2020-03-20 09:12 | Discharge Summary ---
Discharge Summary Discharge Summary _ DATE OF ADMISSION: 03/05/2020 DATE OF DISCHARGE: 03/18/2020 DISCHARGED BY: Dr. Tellez REASON FOR ADMISSION: 79 years old male, resident of correction facility,with past medical history of chronic respiratory failure, tracheostomy dependent, dysphagia, feeding by G-tube, hypertension, diabetes mellitus, paroxysmal atrial fibrillation, history of CVA, seizure disorder, chronic kidney disease, qu adriplegia, was sent for evaluation due to coffee-ground emesis along with nausea and vomiting. No reported fever and chills . No reported diarrhea. Upon evaluation blood pressure was on the low side 99/60. Chest x-ray demonstrated increase in bibasilar opacity , probably representing infectious process versus atelectasis. Marked gaseous distention of the stomach and/or colon, bowel obstruction is not was not excluded. Renal ultrasound revealed echogenic kidneys , suggesting renal parenchymal disea se. No hydronephrosis. Laboratory work-up demonstrated lactic acid 3.1, repeated 2.3. WBC 54.2. Hemoglobin 9.3 hematocrit 28.7 , MCV 103. Platelet 537. Sodium 131, potassium 6.8, chloride 101. BUN 172, creatinine 4.3. Glucose 122. Stable LFT. Troponin negative. EKG revealed sinus tachycardia no acute ischemic changes. Albumin 1.9. ABG revealed metabolic acidosis with pH 7.23 , PCO2 29, bicarb 12. Rapid COVID-19 was negative. Septic work-up initiated in emergency department . Patient received fluids without much improvement, still remained hypotensive with mean arterial blood pressure around 60 . Central line was placed , and patient started on Levophed Patient pancultured , started on empiric antibiotics . Hyperkalemia treated . Repeated potassium improved. Patient subsequently admitted to ICU for further management CONSULTANTS: tube drawing supervisor Dr. Pineda pulmonary Dr. Martinez ID specialist Dr. Hair GI specialist Dr. Kuo self rising flour mixer Dr. Maldonado [facility]: Patient admitted to ICU. Patient was continued on Levophed , titrated to keep mean arterial blood pressure above 65. Ventilator support , tracheostomy care and pulmonary toilet provided. Patient started on IV fluids with bicarbonate and empiric antibiotics. Hemoglobin and hematocrit were closely monitored, repeated CBC later in the day showed hemoglobin dropped to 6.7. Patient started on Protonix and Octreotide drips. Patient was kept NPO. Patient received blood transfusion. Patient initially was not stable for endoscopy procedure , given sepsis. G-tube was tightened at the bedside , ans balloon was inflated with 10 mL of water, that helped hold the bleeding. Hemodynamic status was closely monitored . Echocardiogram demonstrated preserved ejection fraction of 65% with mild left ventricular hypertrophy. No evidence of wall motion abnormality. Venous duplex bilateral lower extremity revealed no evidence of acute DVT. Patient was able to be weaned off pressors Patient subsequently undergone on 03/08 upper endoscopy , which revealed a large clot in the fundus of the stomach , making visualization impossible. Noted mild erosive esophagitis. At that time unable to identify the source of bleeding due to large blood clot. Protonix and Octreotide drips continued. Reglan provided around the clock. Patient undergone transfusion of total of 8 units of PRBC while in the hospital. Upper endoscopy was repeated on 03/16 which revealed 2 cm wide flat gastric ulcer in the mid body of the stomach, without active bleeding. Previously noted bleeding and blood clots resolved. Prior bleeding was most likely from the gastric ulcer. No further drop in hemoglobin, no further evidence of GI bleeding. Tube feeding restarted. Protonix and Octreotide drips discontinued. PPI provided. Pathology of benign and eroded gastric mucosa revealed mild acute and chronic inflammation and reactive changes. No evidence of intestinal metaplasia , d ysplasia or malignancy. Negative for Helicobacter. Aspiration precaution maintained. Hemoglobin and hematocrit were closely monitored with goal to keep hemoglobin above 7. Prior to discharge hemoglobin 9.3, hematocrit 26.9. Blood culture revealed coagulase negative staph, likely contaminant as epr ID specialsit. Sputum culture revealed E. coli , Klebsiella, Proteus ESBL and MDR Acinetobacter. Stool for C. difficile was negative. Antibiotic regimen was optimized as per ID specialist recommendation. Patient completed treatment for pneumonia while in the hospital. Leukocytosis and low-grade fevers resolved. Renal parameters and electrolytes were closely monitored r. Renal ultrasound as mentioned above , revealed evidence of chronic renal dis ease. Patient was on the IV fluids with bicarbonate. Further electrolyte abnormalities corrected. Prior to discharge BUN from 172 down to 48, and creatinine from 4.3 down to 2.4. IV fluids stopped. Patient received 1 dose of Lasix. Patient was on Epogen . Ventilator support and pulmonary toilet provided Patient was suctioned as needed. No weaning from ventilator was planned at this time, and full support with ventilator continued. Blood pressure was closely monitored after patient was weaned off pressors. Blood pressure remained stable, and prior to discharge 138/89. Synthroid continued. Seizure precaution maintained. Patient had episode of seizure activities. Patient was started on Keppra. Dilantin continued. Ativan was on board as needed for breakthrough seizure . No further seizure activities. Patient clinically stabilized and was ready for transfer back to subacute nursing facility for further management. FINAL DIAGNOSES: Sepsis with shock -recovered Aspiration pneumonia, s/p treatment Respiratory failure, ventilator dependent with tracheostomy status Lactic acidosis -resolved Acute oliguric renal failure on chronic kidney disease Anemia of acute blood loss (due to GI bleeding ) GI bleeding due to bleeding gastric ulcer Paroxysmal atrial fibrillation Anemia of chronic kidney disease Dysphagia , feeding by G-tube Severe protein calorie malnutrition Seizure disorder Electrolyte abnormalities Diabetes mellitus History of CVA Chronic encephalopathy Hypothyroidism DISCHARGE MEDICATIONS: List of medication was sent to accepting facility DISCHARGE INSTRUCTIONS: Patient was discharged to the correction facility. Follow up with medical doctor at the facility. I have been assigned to dictate discharge summary for this account. I was not involved in the patient's management. Carina Clemente NP Mar 20, 2020 09:12
--- NOTE | 2020-03-23 16:14 | Operative Note - Dictated ---
DATE OF OPERATION: 03/09/2020 GASTROENTEROLOGY PROCEDURE REPORT PROCEDURE: Upper gastrointestinal endoscopy. SURGEON: Clive Kuo MD. ANESTHESIA: Please see the separate anesthesiologist notes for details. PRE-ENDOSCOPIC DIAGNOSIS: Upper gastrointestinal bleeding. POST-ENDOSCOPIC DIAGNOSIS: Large blood clot in the stomach with poor visualization. DESCRIPTION OF PROCEDURE: The procedure, its risks, indications, alternatives, and possible complications were explained and an informed consent was obtained. The patient was sedated and a diagnostic upper endoscope was introduced through the oropharynx and advanced to the duodenum. Evaluation of the upper gastrointestinal mucosa revealed again a large solid clot in the fundus of the stomach obscuring most of the view. Despite aggressive efforts, the clot could not be suctioned. No new findings could be ascertained from this endoscopy compared to the previous one yesterday. The endoscope was removed. The patient was sent to recovery in good condition. COMPLICATIONS: None. ASSESSMENT: Upper gastrointestinal bleeding with large clot in the stomach obscuring the view. RECOMMENDATIONS: 1. Continue supportive care. 2. Repeat endoscopy next week. Clive Kuo M.D. DR: MIKE JOB#: [id number] CC:
== END 2020-03-18 17:40 | DRG 870 ==
LOC: EDBD 05:30 → EMR 05:46 → ICU 05:59 → EDBEDREQ 06:50 → EDBEDREQSVC 06:50 → EDBEDREQ 07:24 → 2W 03-17 21:00 → UNDODISIN 03-18 17:40
PROC: 5A1955Z Respiratory Ventilation, Greater than 96 Consecutive Hours (ICD-10-PCS; principal; 2020-03-05)
PROC: 06HN33Z Insertion of Infusion Device into Left Femoral Vein, Percutaneous Approach (ICD-10-PCS; principal; 2020-03-05)
PROC: 0DJ08ZZ Inspection of Upper Intestinal Tract, Via Natural or Artificial Opening Endoscopic (ICD-10-PCS; 2020-03-08)
PROC: 0DJ08ZZ Inspection of Upper Intestinal Tract, Via Natural or Artificial Opening Endoscopic (ICD-10-PCS; 2020-03-09)
PROC: B548ZZA Ultrasonography of Superior Vena Cava, Guidance (ICD-10-PCS; 2020-03-13)
PROC: 02HV33Z Insertion of Infusion Device into Superior Vena Cava, Percutaneous Approach (ICD-10-PCS; 2020-03-13)
PROC: 0DD78ZX Extraction of Stomach, Pylorus, Via Natural or Artificial Opening Endoscopic, Diagnostic (ICD-10-PCS; 2020-03-16)
DX: A41.9 Sepsis, unspecified organism (principal); J69.0 Pneumonitis due to inhalation of food and vomit; R65.21 Severe sepsis with septic shock; E43 Unspecified severe protein-calorie malnutrition; R53.2 Functional quadriplegia; K25.0 Acute gastric ulcer with hemorrhage; N17.9 Acute kidney failure, unspecified; G93.1 Anoxic brain damage, not elsewhere classified; J96.10 Chronic respiratory failure, unspecified whether with hypoxia or hypercapnia; D62 Acute posthemorrhagic anemia; Z99.11 Dependence on respirator [ventilator] status; R71.0 Precipitous drop in hematocrit; E87.0 Hyperosmolality and hypernatremia; N39.0 Urinary tract infection, site not specified; R18.8 Other ascites; J90 Pleural effusion, not elsewhere classified; E87.1 Hypo-osmolality and hyponatremia; Z68.25 Body mass index [BMI] 25.0-25.9, adult; Z86.73 Personal history of transient ischemic attack (TIA), and cerebral infarction without residual deficits; G40.909 Epilepsy, unspecified, not intractable, without status epilepticus; I13.10 Hypertensive heart and chronic kidney disease without heart failure, with stage 1 through stage 4 chronic kidney disease, or unspecified chronic kidney disease; E11.22 Type 2 diabetes mellitus with diabetic chronic kidney disease; N18.3 Chronic kidney disease, stage 3 (moderate); Z93.0 Tracheostomy status; Z93.1 Gastrostomy status; I48.0 Paroxysmal atrial fibrillation; R13.10 Dysphagia, unspecified; E87.6 Hypokalemia; E83.42 Hypomagnesemia; E87.5 Hyperkalemia; E86.0 Dehydration; L89.156 Pressure-induced deep tissue damage of sacral region; L89.316 Pressure-induced deep tissue damage of right buttock; Z20.828 Contact with and (suspected) exposure to other viral communicable diseases; K20.9 Esophagitis, unspecified; R19.7 Diarrhea, unspecified
CPT/HCPCS: 36415; 36569; 36600; 71045; 74018; 74176; 76770; 76937; 80048; 80053; 80202; 82270; 82550; 82553; 82575; 82803; 82962; 83605; 83735; 84100; 84132; 84443; 84484; 85007; 85025; 85610; 85730; 86850; 86900; 86901; 86920; 87040; 87070; 87081; 87181; 87205; 87324; 93005; 93306; 93970; 94002; 94003; 94150; 94664; 96361; 96365; 96367; 96375; 99291; J2370; J2765; J7030; J7620; J8499; U0002

== ENCOUNTER 2020-04-04 07:23 | Inpatient (IN) | payer MEDICARE, MEDICAID ==
[~2020-04-04] VITALS: Ht 162.6 cm; Wt 66.2 kg
[2020-04-04] VITALS (19 sets, daily range): BP systolic 88–161; BP diastolic 41–96
[~2020-04-04 07:23] MED LIST changes: +ATIVAN1 MG ORAL; +EPOGEN20000 UNI1 SUBQ; +FERROUS SU300 MG/52 GT; +POTASSIUM40 MEQ/11 PO; +PROMOD946 ML GT; +SYNTHROID100 MCG GT
--- NOTE | 2020-04-04 07:30 | NUR ---
ED Nurse Note: Patient brought in to ER from [facility] due to tachycardia to 130s/min. pt aao x0. non verbal, no opening eyes which is baseline for pt per EMS. G-tube in place and the site intact. pt is Vent dependent and RT and ERMD at bedside. no pressure ulcer but old scar on Rt elbow and blood stain on scrotum noted. BUE pitting edema +3 and all extremites contraction noted. lungs sound clear to ausculate, no SOB or labored breathing noted. pt's heartrate at 131/min at this time.
[2020-04-04] MEDS ORDERED: CATAPRES0.1 MG GT (07:32)
[2020-04-04] MEDS ORDERED: ACETAMINOPHEN120 MG GT (07:32)
[2020-04-04] MEDS ORDERED: FERROUS SULFAT325 MG ORAL (07:32)
[2020-04-04] MEDS ORDERED: EPOGEN20000 UNI1 SUBQ (07:32)
[2020-04-04] MEDS ORDERED: PREVACID30 M2 ORAL (07:32)
[2020-04-04] MEDS ORDERED: SYNTHROID125 MCG ORAL (07:32)
[2020-04-04] MEDS ORDERED: VITAMIN C250 MG ORAL (07:32)
[2020-04-04] MEDS ORDERED: DOCUSATE SODIU100 MG GT (07:32)
[2020-04-04] MEDS ORDERED: REGLAN5 MG GT (07:32)
[2020-04-04] MEDS ORDERED: MULTIVITAMINS1 EAC8 ORAL (07:32)
[2020-04-04] MEDS ORDERED: ATIVAN1 MG GT (07:32)
[2020-04-04] MEDS ORDERED: KEPPRA750 MG ORAL (07:32)
--- NOTE | 2020-04-04 07:46 | NUR ---
ED Nurse Note: Multiple RNs attempted to establish IV and draw blood and it's unsuccessful at this time. [employer] technology teacher contacted for blood draw @[phone]. ERMD and hot metal charger made aware.
--- NOTE | 2020-04-04 07:50 | NUR ---
ED Nurse Note: Dr Chris renner to insert IV access on patient's foot at this time. Primary RN aware.
--- NOTE | 2020-04-04 07:51 | Emergency Room Report ---
History of Present Illness General Chief Complaint: General Complaint Source: Patient, Medical Record, EMS Present Illness HPI Disclaimer: Please note that this report is being documented using DRAGON technology. This can lead to erroneous entry secondary to incorrect interpretation by the dictating instrument. HPI: 80-year-old male history of chronic respiratory failure, A. fib, tracheostomy and ventilator dependent, CHF, quadriplegia presented for tachycardia. Presented from nursing home facility. Patient is nonverbal at baseline and unable to provide any history. He is currently on his baseline ventilator settings. No history of fever. No distress on arrival. Allergies: Coded Allergies: No Known Allergies (Unverified , 02/23/12) COVID-19 Screening Contact w/high risk pt: No Experienced COVID-19 symptoms?: No COVID-19 Testing performed CRYOGENICS REPAIRER: No Patient History Reviewed Nursing Documentation: PMH: Agreed; PSxH: Agreed Nursing Documentation-PMH Past Medical History: No History, Except For Hx Cardiac Problems: Yes - a fib, heart failure, SD Hx Hypertension: Yes Review of Systems All Other Systems: limited Narrative limited due to baseline AMS Physical Exam Vital Signs Date Time Temp Pulse Resp B/P (MAP) Pulse Ox O2 Delivery O2 Flow Rate FiO2 04/04/20 07:18 97.5 133 16 139/93 (108) 100 Mechanical Ventilator Sp02 EP Interpretation: reviewed, other - Normal on oxygen General Appearance: no apparent distress, Chronically Ill Head: normocephalic, atraumatic Eyes: bilateral eye PERRL, bilateral eye EOMI ENT: uvula midline, moist mucus membranes Neck: supple, tracheotomy Respiratory: lungs clear, normal breath sounds, no rhonchi, no respiratory distress, no retraction, no wheezing Cardiovascular #1: normal peripheral pulses, no murmur, tachycardia Gastrointestinal: non tender, soft, non-distended, no guarding, other - Gastrostomy tube in place Musculoskeletal: other - Extremities contracted Neurologic: other - Patient nonverbal, quadriplegic and unresponsive at baseline Skin: normal color, warm/dry Procedures Critical Care Time Critical Care Time Critical care time is managed patient due to presentation with concern for ventilator associated pneumonia, sepsis and hypokalemia requiring my intervention. Medical Decision Making Diagnostic Impression: Primary Impression: Ventilator associated pneumonia Additional Impressions: Chronic kidney disease Tracheostomy status Hypokalemia ER Course MDM:differential diagnosis included but not limited to atrial fibrillation, pneumonia, COVID-19, mucous plug, UTI pain to name a few Clinical course-patient's only complaint was tachycardia. He was nonverbal. He was in no distress. Heart rate did improve on arrival. Laboratory studies demonstrated leukocytosis of 20,000. Chest x-ray showed possible bilateral infiltrates. Did have concern for ventilator associated pneumonia. Patient given broad-spectrum antibiotics. Chemistry did did demonstrate evidence of hypokalemia and which was confirmed to be 1.4. EKG demonstrated sinus rhythm without U waves I did give potassium repletion via G-tube however I did not give IV potassium as patient has a history of chronic kidney disease and currently has no signs of arrhythmia so I wish to correct potassium slowly as in a patient with chronic kidney disease I did not want to cause hyperkalemia. Troponin was mildly elevated aspirin given. Patient will require admission the hospital for IV antibiotics and further treatment. Patient was admitted to the stepdown unit. CT scan did demonstrate gaseous distention of the colon, bladder wall thickening, we were unable to place a London catheter in the ER due to anatomy and abnormal urethra so a condom catheter was placed. Patient admitted under Dr. bailon Labs - Laboratory Tests Test 04/04/20 07:50 04/04/20 08:12 04/04/20 09:40 White Blood Count 20.0 K/UL (4.8-10.8) H Red Blood Count 2.96 M/UL (4.70-6.10) L Hemoglobin 9.3 G/DL (14.2-18.0) L Hematocrit 26.3 % (42.0-52.0) L Mean Corpuscular Volume 89 FL (80-99) Mean Corpuscular Hemoglobin 31.5 PG (27.0-31.0) H Mean Corpuscular Hemoglobin Concent 35.4 G/DL (32.0-36.0) Red Cell Distribution Width 17.1 % (11.6-14.8) H Platelet Count 215 K/UL (150-450) Mean Platelet Volume 5.9 FL (6.5-10.1) L Neutrophils (%) (Auto) % (45.0-75.0) Lymphocytes (%) (Auto) % (20.0-45.0) Monocytes (%) (Auto) % (1.0-10.0) Eosinophils (%) (Auto) % (0.0-3.0) Basophils (%) (Auto) % (0.0-2.0) Differential Total Cells Counted 100 Neutrophils % (Manual) 95 % (45-75) H Lymphocytes % (Manual) 2 % (20-45) L Monocytes % (Manual) 3 % (1-10) Eosinophils % (Manual) 0 % (0-3) Basophils % (Manual) 0 % (0-2) Band Neutrophils 0 % (0-8) Platelet Estimate Adequate Platelet Morphology Normal Hypochromasia 2+ Anisocytosis 1+ Prothrombin Time 14.0 SEC (9.30-11.50) H Prothrombin Time INR 1.3 (0.9-1.1) H Activated Partial Thromboplast Time 31 SEC (23-33) Lactic Acid Level 1.30 mmol/L (0.4-2.0) Troponin I 0.060 ng/mL (0.000-0.056) Arterial Blood pH 7.387 (7.350-7.450) Arterial Blood Partial Pressure CO2 47.2 mmHg (35.0-45.0) H Arterial Blood Partial Pressure O2 81.2 mmHg (75.0-100.0) Arterial Blood HCO3 27.7 mmol/L (22.0-26.0) H Arterial Blood Oxygen Saturation 95.8 % (95-100) Arterial Blood Base Excess 2.3 (-2-2) H Urbano Test Positive Sodium Level 138 MMOL/L (136-145) Potassium Level 1.4 MMOL/L (3.5-5.1) *L Chloride Level 100 MMOL/L (98-107) Carbon Dioxide Level 27 MMOL/L (21-32) Anion Gap 12 mmol/L (5-15) Blood Urea Nitrogen 69 mg/dL (7-18) H Creatinine 2.5 MG/DL (0.55-1.30) H Estimated Glomerular Filtration Rate 25.1 mL/min (>60) Glucose Level 118 MG/DL (74-106) H Calcium Level 8.0 MG/DL (8.5-10.1) L Magnesium Level 1.7 MG/DL (1.8-2.4) L Total Bilirubin 0.4 MG/DL (0.2-1.0) Aspartate Amino Transferase (AST) 23 U/L (15-37) Alanine Aminotransferase (ALT) 11 U/L (12-78) L Alkaline Phosphatase 119 U/L (46-116) H Total Creatine Kinase 19 U/L (26-308) L Creatine Kinase MB 1.5 NG/ML (0.0-3.6) Creatine Kinase MB Relative Index 7.8 Total Protein 6.4 G/DL (6.4-8.2) Albumin 1.2 G/DL (3.4-5.0) L Globulin 5.2 g/dL Albumin/Globulin Ratio 0.2 (1.0-2.7) L Microbiology Date/Time Source Procedure Growth Status 04/04/20 07:23 Nasopharynx SARS-CoV-2 RdRp Gene Assay - Final Complete On reevaluation: Vital signs stable Plan-admission to the stepdown unit EKG Diagnostic Results Rate: tachycardiac Rhythm: other - Sinus tachycardia ST Segments: no acute changes ASA given to the pt in ED: Yes Rhythm Strip Diag. Results EP Interpretation: yes Rate: 104 Rhythm: no ectopy, other - Sinus tachycardia Chest X-Ray Diagnostic Results Chest X-Ray Diagnostic Results : Chest X-Ray Ordered: Yes # of Views/Limited/Complete: 1 View Indication: Shortness of Breath Interpretation: other - Bilateral infiltrates noted Electronically Signed by: Brett Perez MD CT/MRI/US Diagnostic Results CT/MRI/US Diagnostic Results : Imaging Test Ordered: CT abdomen and pelvis Impression IMPRESSION: BIBASILAR AIRSPACE DISEASE IN BOTH LUNG BASES INCLUDING RIGHT BASILAR GROUNDGLASS INFILTRATES AND DENSER CONSOLIDATION WITH AIR BRONCHOGRAMS IN THE LEFT LOWER LOBE. BILATERAL SMALL EFFUSIONS. G-TUBE IN PLACE. GASEOUS DISTENTION OF THE COLON. DIVERTICULOSIS NOTED WITHOUT SIGN OF ACUTE DIVERTICULITIS. SMALL AMOUNT OF ASCITES IN THE LOWER ABDOMEN/PELVIS. WALL THICKENING OF THE URINARY BLADDER. QUESTION UNDERLYING CYSTITIS. FRACTURE OF THE LEFT FEMORAL HEAD/NECK WHICH APPEARS OLD. LEFT FEMORAL SHAFT DISPLACED SUPEROLATERALLY. OLD SUPERIOR ENDPLATE DEPRESSION OF L1. Last Vital Signs Date Time Temp Pulse Resp B/P (MAP) Pulse Ox O2 Delivery O2 Flow Rate FiO2 04/04/20 07:18 97.5 133 16 139/93 (108) 100 Mechanical Ventilator Status: improved Disposition: [facility] Condition: Serious Brett Perez M.D. Apr 04, 2020 07:51
--- NOTE | 2020-04-04 08:12 | NUR ---
ED Nurse Note: heart rate at 93/min. ERMD made aware. Rectal temp 98.8F
--- NOTE | 2020-04-04 08:23 | NUR ---
ED Nurse Note: x-ray at bedside.
[2020-04-04 08:29] LABS: HEMATOCRIT 26.3 % (42.0-52.0); HEMOGLOBIN 9.3 G/DL (14.2-18.0); MEAN CORPUSCULAR VOLUME 89 FL (80-99); PLATELET COUNT 215 K/UL (150-450); RED BLOOD COUNT 2.96 M/UL (4.70-6.10); RED CELL DISTRIBUTION WIDTH 17.1 % (11.6-14.8)
--- NOTE | 2020-04-04 08:31 | NUR ---
ED Nurse Note: RN unable to obtain urine sample using straight I&O catheter due to split urethral opening. RN will apply condom catheter as ordered.
[2020-04-04 08:34] LABS: INR 1.3 (0.9-1.1)
[2020-04-04] MEDS ORDERED: Piperacillin/Tazobactam 3.375 GM in NS 110 ML IVPB ONE (08:45)
--- NOTE | 2020-04-04 09:21 | NUR ---
ED Nurse Note: pt taken to CT with technitian, RN, RT and came back in stable condition. pt opening his eyes spontaneously.
--- NOTE | 2020-04-04 10:01 | Diagnostic Imaging Report ---
EXAM: CT CT Abdomen Pelvis WO Contrast INDICATION: Abdominal distention. COMPARISON: None TECHNIQUE: Axial images were obtained through the abdomen pelvis without intravenous contrast. Sagittal and coronal reformats are generated. All CT scans at this facility are performed using dose modulation techniques as appropriate to a performed exam including the following: automated exposure control with adjustment of the mA and/or kV according to patient size. RADIATION DOSE: CTDIvol: 9.2 mGy DLP: 522.9 mGy-cm Dose information generated by the CT scanner is available in PACS. FINDINGS: Groundglass infiltrates noted in the right lung base. There is a denser consolidation in the posterior left lower lobe with air bronchogram. Some dependent atelectasis or infiltrates also noted posterior right lung base. Bilateral small pleural effusions noted. Images through upper abdomen degraded by streak artifact from the patient's arm position. The liver and spleen are grossly homogeneous to the extent visualized. Gallbladder is not visualized. Surgical clips in the gallbladder fossa. The pancreas is unremarkable. Adrenals are normal in morphology. There appears to be a low-density cyst in the lower pole of the left kidney. No hydronephrosis seen bilaterally. There is a G-tube in place. Small bowel loops are nondistended. There is gaseous distention of the colon. Sigmoid diverticulosis noted without sign of acute diverticulitis. The appendix is not visualized. There is a small amount of ascites in the lower abdomen/pelvis. No free air identified. No pathologic adenopathy demonstrated. Mild diffuse wall thickening of the urinary bladder noted. Question underlying cystitis. There appears to be an old fracture of the left femoral head/neck. The shaft is displaced superolaterally. There is old superior endplate depression of L1. IMPRESSION: BIBASILAR AIRSPACE DISEASE IN BOTH LUNG BASES INCLUDING RIGHT BASILAR GROUNDGLASS INFILTRATES AND DENSER CONSOLIDATION WITH AIR BRONCHOGRAMS IN THE LEFT LOWER LOBE. BILATERAL SMALL EFFUSIONS. G-TUBE IN PLACE. GASEOUS DISTENTION OF THE COLON. DIVERTICULOSIS NOTED WITHOUT SIGN OF ACUTE DIVERTICULITIS. SMALL AMOUNT OF ASCITES IN THE LOWER ABDOMEN/PELVIS. WALL THICKENING OF THE URINARY BLADDER. QUESTION UNDERLYING CYSTITIS. FRACTURE OF THE LEFT FEMORAL HEAD/NECK WHICH APPEARS OLD. LEFT FEMORAL SHAFT DISPLACED SUPEROLATERALLY. OLD SUPERIOR ENDPLATE DEPRESSION OF L1.
--- NOTE | 2020-04-04 10:33 | NUR ---
ED Nurse Note: call the lab for BMP results. still in process.
[2020-04-04] MEDS ORDERED: Vancomycin 1 GM in NS 275 ML IVPB ONE (11:00)
[2020-04-04 11:05] LABS: ALBUMIN 1.2 G/DL (3.4-5.0); ALBUMIN/GLOBULIN RATIO 0.2 (1.0-2.7); BILIRUBIN,TOTAL 0.4 MG/DL (0.2-1.0); CKMB 1.5 NG/ML (0.0-3.6); CREATININE 2.5 MG/DL (0.55-1.30); POTASSIUM 1.4 MMOL/L (3.5-5.1)
[2020-04-04] MEDS ORDERED: Aspirin Baby 81mg GT ONE (11:15)
--- NOTE | 2020-04-04 11:17 | Diagnostic Imaging Report ---
Procedure: XRAY Chest 1v Reason for study: Reason For Exam: SOB Comparison films: None. FINDINGS: There is a tracheostomy in place. Vascularity is normal. Bilateral alveolar infiltrates noted. Cardiac and mediastinal silhouette are within normal limits. No large effusion seen. The bony thorax appear unremarkable. IMPRESSION: Bilateral infiltrates.
--- NOTE | 2020-04-04 11:43 | NUR ---
ED Nurse Note: report given to MERLENE Beatty.
--- NOTE | 2020-04-04 11:44 | NUR ---
ED Nurse Note: per ERMD, pt is okay to be transferred to ICU without central line. pt has 2 lines of 20G and 22G and vital signs stable.
--- NOTE | 2020-04-04 11:50 | NUR ---
ED Nurse Note: pt transfer to ICU with 1 engineer technician, 1 RN, 1 RT in no changes of condition.
--- NOTE | 2020-04-04 12:00 | NUR ---
NURSE NOTES: Received pt from ER. Pt eyes open but does not track. Pt withdraws all ext to pain but is unable to follow command. Pupils PERRLA +3 with left eye turned inward. Lung sounds coarse Rhonchi and equal bilateral. Trach to ventilator. Trach dressing moist with secretions. Secretions aparicio and tenacious. Dressing changed. Trach site reddened. Pt has gastrostomy tube. Insertion site reddened. Dry aparicio drainage noted on dressing. Dressing replaced. Pt has left hand 22 gauge IV and left foot 20 gauge IV. Both patent and asymptomatic. Pt has generalized +2-3 pitting edema. NO urine output noted in ER. Condom cath in place. London attempted at this time. Unable to advance past blockage. Will notify MD. Pt upper and lower ext contracted. Wounds noted on sacrum, right elbow, right lateral foot, left ankle. Heeled wound noted on right trochanter and bilateral elbow. Bruising and scabs noted on bilateral legs. Gargatha scratches noted on abdomen. Addendum: 04/04/20 at 1511 by Alexandria Pang RN K 1.4. 40mEq K-Dur given in ER. Will notify admitting .
--- NOTE | 2020-04-04 13:03 | NUR ---
NURSE NOTES: Left message for Dr Martinez regarding admission orders and low K level. Awaiting call back at this time.
[2020-04-04] MEDS ORDERED: Albuterol/Ipratropium 3ml neb HHN PRN (13:30)
--- NOTE | 2020-04-04 14:00 | NUR ---
NURSE NOTES: Received admission orders from Dr Martinez. Orders read back, verified, and placed.
--- NOTE | 2020-04-04 14:00 | NUR ---
NURSE NOTES: Dr Maldonado rounded on pt. Update given. Received order for KCl IVPB 40mEq Q6Hr x 4 doses and BMP Q6Hr times 3. Orders read back, verified, and placed.
--- NOTE | 2020-04-04 14:15 | Consultation ---
DATE OF CONSULTATION: 04/04/2020 INFECTIOUS DISEASE CONSULTATION CONSULTING PHYSICIAN: Isaak Hair MD. REFERRING PHYSICIAN: Mansoor Martinez MD. REASON FOR CONSULTATION: Pneumonia. HISTORY OF PRESENTING ILLNESS: This is a 80-year-old gentleman with history of atrial fibrillation, heart failure, myocardial infarction, respiratory failure, status post tracheostomy, who comes in from a residential facility and was found to have pneumonia. His COVID-19 test was negative and an Infectious Diseases consultation has been obtained for antibiotics. PAST MEDICAL HISTORY: 1. History of hypertension. 2. Heart failure. 3. Atrial fibrillation. 4. Myocardial infarction. SOCIAL HISTORY: Unknown. FAMILY HISTORY: Unknown. REVIEW OF SYSTEMS: Unable to obtain currently. MEDICATIONS: He has received aspirin, IV vancomycin and Zosyn. ALLERGIES: No known drug allergies. PHYSICAL EXAMINATION: VITAL SIGNS: Temperature 98.8, T-max of 98.8, pulse 89, respiratory rate 30, blood pressure 117/89. O2 saturation of 100%. HEENT: Pupils are equally reactive to light and accommodation. Mouth appears clean without thrush. NECK: Tracheostomy site appears clean. CARDIOVASCULAR: Regular rate and rhythm. No murmurs. LUNGS: Clear to auscultation bilaterally. No crackles. No wheezes. ABDOMEN: Soft, nontender. G-tube site appears clean. EXTREMITIES: No cyanosis, no clubbing, no edema. LABORATORY AND DIAGNOSTIC DATA: White count of 20, hemoglobin 9.3, hematocrit 26.3, MCV 89, platelet count 215, with neutrophils of 95%. Sodium 138, potassium , chloride 100, bicarb 27, BUN 69, creatinine 2.5. Glucose 118. Calcium 8. Total bilirubin 0.4, AST 23, ALT 11, alkaline phosphatase 119. CK of 19, CK-MB 1.5. Total protein 6.4, albumin 1.2. Troponin 0.06. COVID-19 test is negative. Chest x-ray showing bilateral infiltrates. CT abdomen and pelvis showing bibasilar airspace disease in both lungs including right base ground-glass infiltrates and denser consolidations with air bronchograms in the left lower lobe. Bilateral small effusions. Diverticulosis noted without diverticulitis. Small amount of ascites. ? underlying cystitis. Fracture of the left femoral head neck which appears old endplate decompression of L1. ASSESSMENT: This is a 80-year-old gentleman with history of atrial fibrillation, myocardial infarction, and hypertension who comes in and is found to have, 1. Bilateral likely aspiration pneumonia. 2. Renal failure. 3. Respiratory failure. 4. Leukocytosis. 5. Hypertension. 6. Cystitis. PLAN: 1. Continue Zosyn. 2. We will order urinalysis and urine culture. 3. We will order sputum for Gram stain and culture. 4. We will follow up cultures and adjust antibiotics accordingly. I would like to thank Dr. Martinez for this consultation. Isaak Hair M.D. DR: COLIN JOB#: [id number] CC:
[2020-04-04] MEDS: 1/2NS w/KCl 20mEq 1000ml 1,000 ML IV SCH ×2 (14:21→22:30)
[2020-04-04] MEDS: Piperacillin/Tazobactam 3.375 GM in NS 110 ML IVPB SCH ×2 (14:21→21:04)
--- NOTE | 2020-04-04 15:05 | NUR ---
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 97.5 HR 133 RR 16 B/P 139/93 AC 26 TV 450 FIO2 35% PEEP 5 WBC 20.0 K 1.4 BUN 69 CR 2.5 MG 1.7 TROP 0.060 CXR= BILATERAL INFILTRATES IS: VANCO IV KCL IV ZOSYN IV ASA GT ADMITTED TO ICU ICU STATUS DCP RETURN TO [facility]
[2020-04-04 15:28] LABS: ALBUMIN 1.1 G/DL (3.4-5.0); ALBUMIN/GLOBULIN RATIO 0.2 (1.0-2.7); BILIRUBIN,TOTAL 0.3 MG/DL (0.2-1.0); CALCIUM 8.1 MG/DL (8.5-10.1); CREATININE 2.5 MG/DL (0.55-1.30)
[2020-04-04] MEDS: Potassium Chloride 40 MEQ in D5W 500ml 500 ML IVPB SCH ×2 (15:28→21:00)
[2020-04-04 15:31] LABS: POTASSIUM 1.8 MMOL/L (3.5-5.1)
--- NOTE | 2020-04-04 16:01 | NUR ---
NURSE NOTES: Notified Dr Martinez regarding pt bradycardia with episodes of HR as low as 35 beats per minute. Received order for PICC line and he reported that he would consult Dr Pineda, enzyme chemist. Addendum: 04/04/20 at 1603 by Alexandria Pang RN Received order for dopamine drip. Order read back,verified, and placed.
--- NOTE | 2020-04-04 16:58 | Cardiology Report ---
APPROVED REPORT EKG Measurement Heart [id number] <Conclusion> Sinus tachycardia Inferior infarct, age undetermined Abnormal ECG
[2020-04-04] MEDS: DOPamine 400mg/250ml 250 ML IV SCH (16:59)
--- NOTE | 2020-04-04 18:00 | NUR ---
NURSE NOTES: Dr Pineda rounded on the pt. Update given. Dr Pineda placed. orders. Will carry out orders.
--- NOTE | 2020-04-04 18:30 | Consultation ---
DATE OF CONSULTATION: 04/04/2020 PULMONARY CONSULTATION CONSULTING PHYSICIAN: Mansoor Martinez MD REASON FOR CONSULTATION: Respiratory failure. REASON FOR ADMISSION: Sepsis. HISTORY OF PRESENT ILLNESS: This is a 80-year-old male, who presents with acute deterioration in the care home. The patient was brought in for respiratory failure, sepsis, renal failure, and profound hypokalemia. The patient has had chronic long-term multiorgan dysfunction. The patient is fully dependent and fully bedbound at the nursing facility. The patient's care discussed and reviewed. The patient with multitude of medical problems in the past. PAST MEDICAL HISTORY: Respiratory failure chronic, tracheostomy, aspiration pneumonia, acute on chronic renal failure, multiple pressure ulcers, multiple fractures, transaminitis, chronic kidney disease, and tracheal stenosis. MEDICATIONS: Reviewed. ALLERGIES: Reviewed. SOCIAL HISTORY: The patient resides at [facility]. Nonsmoker and nondrinker. REVIEW OF SYSTEMS: unable PHYSICAL EXAMINATION: GENERAL: The patient is an ill-appearing male, significantly debilitated. VITAL SIGNS: Presently, blood pressure 109/78, pulse 85, respirations 20, sats 100%. The patient is on ventilator. Temperature is 98 at last check. HEENT: Negative. NECK: Tracheostomy is midline. LUNGS: Coarse breath sounds. CARDIAC: S1, S2. Initially tachycardic. Now, regular rate and rhythm without murmurs. ABDOMEN: Soft. G-tube in place. EXTREMITIES: With contractures. No edema. SKIN: Multiple pressure ulcers noted. LABORATORY DATA: Reviewed. White count 20, hemoglobin 9.3, platelets 215,000. Chemistry noted with potassium of 1.4, BUN 69, creatinine 2.5, magnesium 1.7. Albumin 1.2. The arterial blood gases with pH of 7.38/47/81. IMPRESSION: Respiratory failure chronic, chronic encephalopathy, septic shock, leukocytosis, ground-glass infiltrates, G-tube, aspiration, acute on chronic renal failure, profound hypokalemia, failure to thrive, severe protein-calorie malnutrition, chronic CO2 retention, and hypomagnesemia. RECOMMENDATIONS: Supportive care. Replace potassium. Replace magnesium. IV antibiotics empiric. Panculture. Respiratory support. Feedings. Resume care home medications. Monitor clinically. Prognosis is overall poor. the patient has risk of significant dysrhythmias. Care discussed and reviewed. I will follow closely. Mansoor Martinez M.D. DR: NATA JOB#: [id number] CC: KENDALL
--- NOTE | 2020-04-04 19:10 | NUR ---
NURSE NOTES: pt report received from Alexandria BLUNT, vital signs are stable at this time. pt is non verbal, neuro mason., no acute neuro abnormalities noted. pt is trach vented, sating 98% O2, no acute resp distress noted. pt is on athletic monitor showing NSR, doctor is aware, no other acute cardiac abnormalities noted. pt bed is low, locked, armed, call light within reach, bed rails up times 3. will follow plan of care.
[2020-04-04 19:28] LABS: CALCIUM 7.7 MG/DL (8.5-10.1); CREATININE 2.4 MG/DL (0.55-1.30)
[2020-04-04 19:32] LABS: POTASSIUM 2.2 MMOL/L (3.5-5.1)
--- NOTE | 2020-04-04 19:37 | NUR ---
HAND-OFF: Report given to MERLENE Patton.
[2020-04-04] MEDS ORDERED: Heparin1,000 units/500ml Premix(Conc:2 units/ml) IV PRN (19:45)
[2020-04-04] MEDS ORDERED: Lidocaine 1% Plain 30 ml INJ PRN (19:45)
--- NOTE | 2020-04-04 20:00 | NUR ---
NURSE NOTES: Pt tube feeding started as per Doctor order. Nephro is running, starting at 20 ML/HR and will advance per protocol.
--- NOTE | 2020-04-04 20:15 | NUR ---
NURSE NOTES: called Gita Milligan, pts next of [employer]IN. left a message to call back.
[2020-04-04] MEDS ORDERED: Heparin 5000 units/ml inj SUBQ SCH (21:00)
[2020-04-04] MEDS: Dyna-Hex 2% Top Sol 2oz TOPIC SCH (21:00)
[2020-04-04] MEDS: Heparin 5000 units/ml inj SUBQ SCH (21:02)
--- NOTE | 2020-04-04 21:57 | NUR ---
NURSE NOTES: Spoke to pts next of KIN Srini Pelayo. Srini gave consent to have pts PICC line placed. Shy Horan RN co signed consent as mauricio. consent signed and placed in pts chart.
--- NOTE | 2020-04-04 22:50 | NUR ---
NURSE NOTES: assessed pt and pts IV and IV lines. all IV fluids running as per Doctor ordered. .
[2020-04-05] VITALS (25 sets, daily range): BP systolic 102–132; BP diastolic 52–88
--- NOTE | 2020-04-05 00:50 | NUR ---
NURSE NOTES: [employer] Director at pts bed side drawing lab/ blood.
[2020-04-05 01:14] LABS: CALCIUM 7.7 MG/DL (8.5-10.1); CREATININE 2.4 MG/DL (0.55-1.30); POTASSIUM 3.2 MMOL/L (3.5-5.1)
--- NOTE | 2020-04-05 01:48 | NUR ---
NURSE NOTES: 22 G IV inserted on pts R hand. able to flush with no complications. no abnormalities to IV site.
[2020-04-05] MEDS: Potassium Chloride 40 MEQ in D5W 500ml 500 ML IVPB SCH ×2 (02:17→10:58)
--- NOTE | 2020-04-05 03:38 | NUR ---
NURSE NOTES: pt turned, cleaned and repositioned. wound care as doctor ordered. pressure mattress set up and in place.
--- NOTE | 2020-04-05 03:45 | Consultation ---
DATE OF CONSULTATION: 04/04/2020 CARDIOLOGY CONSULTATION CONSULTING PHYSICIAN: Franko Pineda M.D. REQUESTING PHYSICIAN: Mansoor Martinez M.D. REASON: Bradycardia. HISTORY OF PRESENT ILLNESS: This 80-year-old male with tracheostomy and respiratory failure, was brought into the emergency room because of severe hypokalemia and was found to have multiorgan system failure. He was admitted to the intensive care unit. Following doses of potassium for a level initially of 1.4, he had episodes of bradycardia. I have been asked to address cardiovascular management at this time. The patient is unable to give any historical data. Prior hospital records and current correction charts are reviewed. PAST MEDICAL HISTORY: Respiratory failure, tracheostomy, chronic kidney disease, hypertension, type 2 diabetes mellitus, multiple decubitus, cerebrovascular disease, dementia, history of tracheal stenosis, history of multiple rib fractures, congestive heart failure, coronary artery disease with history of myocardial infarction, paroxysmal atrial fibrillation. ALLERGIES: None. MEDICATIONS: Reviewed and reconciled. FAMILY HISTORY: Noncontributory. SOCIAL HISTORY: No record of smoking, alcohol, or substance abuse. REVIEW OF SYSTEMS: Not obtainable. PHYSICAL EXAMINATION: VITAL SIGNS: Blood pressure 139/93, initial heart rate 133 in the emergency room, respiratory rate 16, afebrile. Following admission to the intensive care unit, sinus bradycardia with heart rates in the high 30s was noted and poorly responsive. NECK: Thick trach secretions. LUNGS: Bilateral rhonchi. CARDIAC: Regular rhythm. Slow rate. Normal S1, S2. No murmur. ABDOMEN: Soft, nontender. G-tube intact. EXTREMITIES: No edema. SKIN: Pictured quadriparesis noted. LABORATORY AND DIAGNOSTIC DATA: White count 20, hemoglobin 9.3, platelets 215,000. ABG, 7.39, 47, 81. Sodium 138, potassium 1.4, bicarb 27, BUN 69, creatinine 2.5, magnesium 1.7. Albumin 1.2. EKG, sinus bradycardia, first-degree AV block, no acute abnormalities. Lactic acid 1.3. Troponin is 0.06. IMPRESSION: 1. Severe hypokalemia. 2. Paroxysmal sinus bradycardia. 3. Respiratory failure. 4. Acute myocardial ischemia. 5. Sepsis. 6. Leukocytosis. 7. Anemia. 8. Healthcare-associated pneumonia. 9. Urinary tract infection. 10. Paroxysmal atrial fibrillation. 11. Critical and guarded. 12. Hypomagnesemia. PLAN: 1. ICU care. 2. Aggressive potassium replacement. 3. IV magnesium repletion. 4. Low-dose dopamine for chronotropic effect. 5. Volume support and IV fluid challenges. 6. Antimicrobials. 7. DVT prophylaxis. 8. Monitor acid-base parameters. 9. Serial troponin levels. 10. Thyroid function. Franko Pineda M.D. DR: SALVADOR JOB#: [id number] CC:
[2020-04-05] MEDS: 1/2NS w/KCl 20mEq 1000ml 1,000 ML IV SCH ×3 (05:10→18:55)
[2020-04-05] MEDS: Piperacillin/Tazobactam 3.375 GM in NS 110 ML IVPB SCH ×3 (05:11→21:10)
--- NOTE | 2020-04-05 07:15 | NUR ---
Report received from MERLENE Patton. Pt IV lines patent and intact; consent for PICC line retrieved. Dr. Tellez at bedside. Pt dopamine currently on hold, pt has 1/2 NS running at 150 mls/hr and Nepro at 30mls/hr. pt has urinary output of 30 cc. pt vital signs stable with recognition of pt baseline bradycardia current HR 59. Pt eyes open, appears comfortable.
--- NOTE | 2020-04-05 07:15 | History and Physical Report ---
ATTENDING PHYSICIAN: Mansoor Martinez MD. CHIEF COMPLAINT: Tachycardia. HISTORY OF PRESENT ILLNESS: This is a 80-year-old male from subacute facility, admitted due to tachycardia. PAST MEDICAL HISTORY: 1. Congestive heart failure. 2. Quadriplegia. 3. History of atrial fibrillation. 4. Status post CVA. 5. History of pericardial effusion. 6. Encephalopathy. 7. Hypothyroidism. 8. Chronic kidney disease. 9. Heart failure, etiology unclear. 10. Seizure disorder. MEDICATIONS: Tube feeding Tylenol p.r.n., amlodipine, ascorbic acid, clonidine, Colace, sodium docusate, Epogen subcutaneously, Pepcid, oral iron, Prevacid, Keppra, Synthroid, lorazepam, metoclopramide, multivitamins, potassium chloride, protein supplement. ALLERGIES: No known drug allergies. FAMILY HISTORY: Unable to obtain due to mental status. SOCIAL HISTORY: Unable to obtain due to mental status. REVIEW OF SYSTEMS: Unable to obtain due to mental status. PHYSICAL EXAMINATION: GENERAL: This is an elderly male, who is on ventilator. VITAL SIGNS: Blood pressure 109/78, pulse 85 and irregular, respirations 20 to 30, O2 saturation 100% on FiO2 35. HEENT: The head is normocephalic and atraumatic. Pupils are equal, round, and reactive to light. NECK: He has midline tracheostomy. LUNGS: Bilateral rhonchi. HEART: Irregular. ABDOMEN: Soft and nontender. He has a G-tube. EXTREMITIES: He has multiple contractures. He has 2+ edema. NEUROLOGICAL: He is obtunded. There were no gross focal findings. LABORATORY AND ANCILLARY DATA: CBC shows white count of 20,000, hematocrit 26.3, and platelet count 215. Chemistry, sodium 138, potassium 1.4, BUN 69, creatinine 2.5, calcium 8, magnesium 1.7, albumin 1.2. CT scan of abdomen and pelvis shows bilateral pneumonia. Urinalysis, not reported. ASSESSMENT: 1. Profound hypokalemia. 2. Hypomagnesemia. 3. Congestive heart failure. 4. Quadriplegia. 5. History of atrial fibrillation. 6. Status post CVA. 7. History of pericardial effusion. 8. Encephalopathy. 9. Hypothyroidism. 10. Chronic kidney disease. 11. Heart failure, etiology unclear. 12. Seizure disorder. 13. Pneumonia. PLAN: 1. Avid replacement of potassium and magnesium. 2. IV fluids. 3. Obtain urinalysis. 4. IV antibiotics. Ayanna Maldonado M.D. DR: AMOS JOB#: [id number] CC: KENDALL
--- NOTE | 2020-04-05 07:19 | NUR ---
NURSE HAND-OFF REPORT: Latest Vital Signs: Temperature 98.5 , Pulse 56 , B/P 126 /67 , Respiratory Rate 29 , O2 SAT 100 , Mechanical Ventilator, O2 Flow Rate . Vital Sign Comment: [STABLE] EKG Rhythm: Sinus Bradycardia Rhythm change?: N MD Notified?: - MD Response: Latest Amador Fall Score: 50 Fall Risk: High Risk Safety Measures: Call light Within Reach, Bed Alarm Zone 3, Side Rails Side Rails x3, Bed position Low and Locked. Fall Precautions: Yellow Gown Report given to [BULL BLUNT].
--- NOTE | 2020-04-05 07:40 | NUR ---
NURSE NOTES: Munitions Handler at bedside
--- NOTE | 2020-04-05 08:00 | NUR ---
NURSE NOTES: xray at bedside
[2020-04-05 08:17] LABS: BASOPHILS % (AUTO) 0.5 % (0.0-2.0); EOSINOPHILS % (AUTO) 5.8 % (0.0-3.0); HEMATOCRIT 22.8 % (42.0-52.0); HEMOGLOBIN 8.1 G/DL (14.2-18.0); LYMPHOCYTES % (AUTO) 12.4 % (20.0-45.0); MEAN CORPUSCULAR VOLUME 89 FL (80-99); MONOCYTES % (AUTO) 3.7 % (1.0-10.0); NEUTROPHILS % (AUTO) 77.6 % (45.0-75.0); PLATELET COUNT 190 K/UL (150-450); RED BLOOD COUNT 2.56 M/UL (4.70-6.10); RED CELL DISTRIBUTION WIDTH 17.6 % (11.6-14.8); WHITE BLOOD COUNT 9.2 K/UL (4.8-10.8)
[2020-04-05 08:23] LABS: BLOOD UREA NITROGEN 66 mg/dL (7-18); CALCIUM 7.7 MG/DL (8.5-10.1); CHLORIDE 103 MMOL/L (98-107); CREATININE 2.4 MG/DL (0.55-1.30); POTASSIUM 3.9 MMOL/L (3.5-5.1); SODIUM 133 MMOL/L (136-145)
[2020-04-05 08:29] LABS: CARBON DIOXIDE 25 MMOL/L (21-32)
[2020-04-05] MEDS: Heparin 5000 units/ml inj SUBQ SCH ×2 (08:32→20:37)
--- NOTE | 2020-04-05 08:47 | NUR ---
NURSE NOTES: Per dietition see if we can change Nepro to Vital at 50. Dr. Martinez at bedside and notified. Per Dr. Martinez diet can be changed.
--- NOTE | 2020-04-05 08:47 | NUR ---
RD ASSESSMENT & RECOMMENDATIONS SEE CARE ACTIVITY FOR COMPLETE ASSESSMENT DAILY ESTIMATED NEEDS: Needs based on Critical care, 63kg 22-30 kcals/kg 1099-4174 total kcals 1.25-2 g protein/kg 79-126 g total protein 25-30 mL/kg 3583-6997 total fluid mLs NUTRITION DIAGNOSIS: Swallowing difficulty r/ respiratory status as evidenced by pt is vent dep via trach, PEG dep. CURRENT TF: Nepro@45ml/hr x20 hrs ENTERAL NUTRITION RECOMMENDATIONS: Vital AF 1.2 @ 50ml/hr x 24 hrs to provide 1200ml, 1440kcal, 90g prot, 973ml free water - W/ consistently low lytes, rec TF change to Vital AF 1.2 for critical care - Start Vital AF 1.2 @30ml/hr for 6 hrs, advance as tolerated 10ml/hr q4-6 hrs to goal. - Flush per MD, HOB over 30 degrees ADDITIONAL RECOMMENDATIONS: 1) Calibrated bed scale wts as able-> now w/ added P200 mattress 2) Monitor renal labs and lytes 3) Wound care: When tolerating TF at goal add WILIAM BID -> rec WC eval 4) Monitor hemodynamic stability, dopamine on hold . .
[2020-04-05] MEDS ORDERED: VITAMIN C500 MG/11 GT (09:20)
[2020-04-05] MEDS ORDERED: LANSOPRAZOLE30 MG GT (09:20)
[2020-04-05] MEDS ORDERED: FERROUS SU300 MG/5 M GT (09:20)
[2020-04-05] MEDS ORDERED: MULTI-DELYN237 ML GT (09:20)
[2020-04-05] MEDS ORDERED: SYNTHROID150 MCG GT (09:20)
[2020-04-05] MEDS ORDERED: UTI-STAT L3875 MG/31 GT (09:20)
[2020-04-05] MEDS ORDERED: LEVETIRACE500 MG/51 GT (09:20)
--- NOTE | 2020-04-05 09:53 | NUR ---
RADIOLOGY DEPT., CHEST X-RAY DONE.-P.DYE
--- NOTE | 2020-04-05 10:00 | Critical Care Progress Note ---
Assessment/Plan Assessment/Plan IMPRESSION: Respiratory failure chronic, chronic encephalopathy, septic shock, leukocytosis, ground-glass infiltrates, G-tube, aspiration, acute on chronic renal failure, profound hypokalemia, failure to thrive, severe protein-calorie malnutrition, chronic CO2 retention, and hypomagnesemia. PLAN care noted IV antibotics IV fluids k improved feeds vent ICU care close follow up improved but critical medications/laboratory data/nursing notes/ICU care reviewed in detail note reviewed and edited care discussed with RN and RT ICU time spent >40 minutes Critical Care - Subjective ROS Limited/Unobtainable: Yes Condition: critical EKG Rhythm: Sinus Rhythm Residuals: minimal Tube Feeding Tolerated: yes I&O: Intake and Output 04/04/20 04/05/20 19:00 07:00 Intake Total 3105.673 ml 2602.5 ml Output Total 150 ml 320 ml Balance 2955.673 ml 2282.5 ml Intake Free Water 100 ml IV Total 3005.673 ml 2322.5 ml Tube Feeding 280 ml Output Urine Total 150 ml 320 ml Critical Care - Objective Last 24 Hour Vital Signs Date Time Temp Pulse Resp B/P (MAP) Pulse Ox O2 Delivery O2 Flow Rate FiO2 04/05/20 07:00 59 27 122/69 (86) 100 04/05/20 06:00 56 29 126/67 (86) 100 04/05/20 05:00 56 26 110/69 (83) 99 04/05/20 04:00 Mechanical Ventilator 04/05/20 04:00 62 04/05/20 04:00 98.5 51 26 110/75 (87) 97 04/05/20 03:00 60 29 116/83 (94) 100 04/05/20 02:38 64 32 35 04/05/20 02:00 59 26 116/78 (91) 100 04/05/20 01:00 66 27 119/75 (90) 100 04/05/20 00:30 53 25 102/61 (75) 100 04/05/20 00:00 48 04/05/20 00:00 Mechanical Ventilator 04/05/20 00:00 98.7 53 26 114/75 (88) 100 04/04/20 23:14 62 29 35 04/04/20 23:00 57 26 113/67 (82) 100 04/04/20 22:00 57 26 113/67 (82) 100 04/04/20 21:30 63 26 120/76 (91) 100 04/04/20 21:00 54 24 123/65 (84) 100 04/04/20 20:00 98.5 56 26 97/61 (73) 100 04/04/20 20:00 Mechanical Ventilator 04/04/20 20:00 69 04/04/20 19:01 52 26 35 04/04/20 19:00 56 26 97/61 (73) 100 04/04/20 18:00 57 26 97/41 (59) 100 04/04/20 17:57 105/66 04/04/20 17:00 49 26 101/61 (74) 100 04/04/20 16:59 88/57 04/04/20 16:31 52 88/57 (67) 100 04/04/20 16:00 73 04/04/20 16:00 Mechanical Ventilator 04/04/20 16:00 35 04/04/20 16:00 51 26 95/65 (75) 100 04/04/20 16:00 96.8 04/04/20 15:30 49 26 96/58 (71) 100 04/04/20 15:08 69 32 35 04/04/20 15:00 57 26 98/65 (76) 100 04/04/20 14:30 52 26 90/59 (69) 100 04/04/20 14:07 55 19 110/64 (79) 100 04/04/20 14:00 52 26 91/60 (70) 100 04/04/20 13:00 62 26 95/60 (72) 98 04/04/20 12:51 Venturi Mask 04/04/20 12:38 85 31 35 04/04/20 12:37 87 31 100 Mechanical Ventilator 35 04/04/20 12:10 97.2 62 25 116/96 (103) 99 04/04/20 12:10 79 04/04/20 12:00 35 04/04/20 11:50 85 20 109/78 100 Mechanical Ventilator 35 Labs: Laboratory Tests 04/04/20 14:50: Sodium Level 139, Potassium Level 1.8*L, Chloride Level 102, Carbon Dioxide Level 26, Anion Gap 10, Blood Urea Nitrogen 71H, Creatinine 2.5H, Estimat Glomerular Filtration Rate 25.1, Glucose Level 106, Calcium Level 8.1L, Total Bilirubin 0.3, Aspartate Amino Transf (AST/SGOT) 23, Alanine Aminotransferase (ALT/SGPT) 8L, Alkaline Phosphatase 113, Total Protein 5.8L, Albumin 1.1L, Globulin 4.7, Albumin/Globulin Ratio 0.2L 04/04/20 19:00: Sodium Level 138, Potassium Level 2.2*L, Chloride Level 101, Carbon Dioxide Level 27, Anion Gap 9, Blood Urea Nitrogen 71H, Creatinine 2.4H, Estimat Glomerular Filtration Rate 26.3, Glucose Level 122H, Calcium Level 7.7L 04/05/20 00:50: Sodium Level 136, Potassium Level 3.2L, Chloride Level 102, Carbon Dioxide Level 25, Anion Gap 9, Blood Urea Nitrogen 69H, Creatinine 2.4H, Estimat Glomerular Filtration Rate 26.3, Glucose Level 115H, Calcium Level 7.7L 04/05/20 07:40: Sodium Level 133L, Potassium Level 3.9, Chloride Level 103, Carbon Dioxide Level 25, Blood Urea Nitrogen 66H, Creatinine 2.4H, Estimat Glomerular Filtration Rate 26.3, Glucose Level 98, Calcium Level 7.7L, White Blood Count 9.2#, Red Blood Count 2.56L, Hemoglobin 8.1L, Hematocrit 22.8L, Mean Corpuscular Volume 89, Mean Corpuscular Hemoglobin 31.7H, Mean Corpuscular Hemoglobin Concent 35.7, Red Cell Distribution Width 17.6H, Platelet Count 190, Mean Platelet Volume 5.8L, Neutrophils (%) (Auto) 77.6H, Lymphocytes (%) (Auto) 12.4L, Monocytes (%) (Auto) 3.7, Eosinophils (%) (Auto) 5.8H, Basophils (%) (Auto) 0.5, Troponin I 0.114H, Thyroid Stimulating Hormone (TSH) 63.879H, Random Vancomycin Level 10.6 04/05/20 08:19: Arterial Blood pH 7.407, Arterial Blood Partial Pressure CO2 39.0, Arterial Blood Partial Pressure O2 112.5H, Arterial Blood HCO3 24.0, Arterial Blood Oxygen Saturation 97.3, Arterial Blood Base Excess -0.6, Urbano Test Positive Objective: GENERAL: The patient is an ill-appearing male, significantly debilitated. HEENT: Negative. NECK: Tracheostomy is midline. LUNGS: Coarse breath sounds. moderate; no wheeze CARDIAC: S1, S2. regular rate and rhythm without murmurs. ABDOMEN: Soft. G-tube in place. no distention EXTREMITIES: With contractures. No edema. no CC SKIN: Multiple pressure ulcers noted. Neuro poorly responsive Micro: Microbiology Date/Time Source Procedure Growth Status 04/04/20 08:00 Rectum Received 04/04/20 07:23 Nasopharynx SARS-CoV-2 RdRp Gene Assay - Final Complete Mansoor Martinez MD Apr 05, 2020 10:00
--- NOTE | 2020-04-05 11:10 | Infectious Diseases Prog Note ---
Assessment/Plan Assessment/Plan antibiotics : vancomycin iv, zosyn A 1. pneumonia COVID 19 test negative 2. respiratory failure 3. leucocytosis resolved 4. hypertension 5. renal failure 6. CHF P 1. continue zosyn 2. d/c iv vancomycin 3. will follow up cultures Subjective ROS Limited/Unobtainable: Yes Allergies: Coded Allergies: No Known Allergies (Unverified , 02/23/12) Objective Last 24 Hour Vital Signs Date Time Temp Pulse Resp B/P (MAP) Pulse Ox O2 Delivery O2 Flow Rate FiO2 04/05/20 09:00 59 27 124/63 (83) 100 04/05/20 08:00 Mechanical Ventilator 04/05/20 08:00 68 04/05/20 08:00 98.0 59 28 116/73 (87) 100 04/05/20 07:00 59 32 30 04/05/20 07:00 59 27 122/69 (86) 100 04/05/20 06:00 56 29 126/67 (86) 100 04/05/20 05:00 56 26 110/69 (83) 99 04/05/20 04:00 Mechanical Ventilator 04/05/20 04:00 62 04/05/20 04:00 98.5 51 26 110/75 (87) 97 04/05/20 03:00 60 29 116/83 (94) 100 04/05/20 02:38 64 32 35 04/05/20 02:00 59 26 116/78 (91) 100 04/05/20 01:00 66 27 119/75 (90) 100 04/05/20 00:30 53 25 102/61 (75) 100 04/05/20 00:00 48 04/05/20 00:00 Mechanical Ventilator 04/05/20 00:00 98.7 53 26 114/75 (88) 100 04/04/20 23:14 62 29 35 04/04/20 23:00 57 26 113/67 (82) 100 04/04/20 22:00 57 26 113/67 (82) 100 04/04/20 21:30 63 26 120/76 (91) 100 04/04/20 21:00 54 24 123/65 (84) 100 04/04/20 20:00 98.5 56 26 97/61 (73) 100 04/04/20 20:00 Mechanical Ventilator 04/04/20 20:00 69 04/04/20 19:01 52 26 35 04/04/20 19:00 56 26 97/61 (73) 100 04/04/20 18:00 57 26 97/41 (59) 100 04/04/20 17:57 105/66 04/04/20 17:00 49 26 101/61 (74) 100 04/04/20 16:59 88/57 04/04/20 16:31 52 88/57 (67) 100 04/04/20 16:00 73 04/04/20 16:00 Mechanical Ventilator 04/04/20 16:00 35 04/04/20 16:00 51 26 95/65 (75) 100 04/04/20 16:00 96.8 04/04/20 15:30 49 26 96/58 (71) 100 04/04/20 15:08 69 32 35 04/04/20 15:00 57 26 98/65 (76) 100 04/04/20 14:30 52 26 90/59 (69) 100 04/04/20 14:07 55 19 110/64 (79) 100 04/04/20 14:00 52 26 91/60 (70) 100 04/04/20 13:00 62 26 95/60 (72) 98 04/04/20 12:51 Venturi Mask 04/04/20 12:38 85 31 35 04/04/20 12:37 87 31 100 Mechanical Ventilator 35 04/04/20 12:10 97.2 62 25 116/96 (103) 99 04/04/20 12:10 79 04/04/20 12:00 35 04/04/20 11:50 85 20 109/78 100 Mechanical Ventilator 35 Height (Feet): 5 Height (Inches): 4.00 Weight (Pounds): 139 HEENT: status post trach Respiratory/Chest: lungs clear Cardiovascular: normal rate, regular rhythm, no gallop/murmur Abdomen: soft, non tender, other - GT Extremities: other - + edema, contracted Microbiology Date/Time Source Procedure Growth Status 04/04/20 08:00 Rectum Received 04/04/20 07:23 Nasopharynx SARS-CoV-2 RdRp Gene Assay - Final Complete Laboratory Tests Test 04/04/20 14:50 04/04/20 19:00 04/05/20 00:50 04/05/20 07:40 Sodium Level 139 MMOL/L (136-145) 138 MMOL/L (136-145) 136 MMOL/L (136-145) 133 MMOL/L (136-145) L Potassium Level 1.8 MMOL/L (3.5-5.1) *L 2.2 MMOL/L (3.5-5.1) *L 3.2 MMOL/L (3.5-5.1) L 3.9 MMOL/L (3.5-5.1) Chloride Level 102 MMOL/L (98-107) 101 MMOL/L (98-107) 102 MMOL/L (98-107) 103 MMOL/L (98-107) Carbon Dioxide Level 26 MMOL/L (21-32) 27 MMOL/L (21-32) 25 MMOL/L (21-32) 25 MMOL/L (21-32) Anion Gap 10 mmol/L (5-15) 9 mmol/L (5-15) 9 mmol/L (5-15) Blood Urea Nitrogen 71 mg/dL (7-18) H 71 mg/dL (7-18) H 69 mg/dL (7-18) H 66 mg/dL (7-18) H Creatinine 2.5 MG/DL (0.55-1.30) H 2.4 MG/DL (0.55-1.30) H 2.4 MG/DL (0.55-1.30) H 2.4 MG/DL (0.55-1.30) H Estimat Glomerular Filtration Rate 25.1 mL/min (>60) 26.3 mL/min (>60) 26.3 mL/min (>60) 26.3 mL/min (>60) Glucose Level 106 MG/DL (74-106) 122 MG/DL (74-106) H 115 MG/DL (74-106) H 98 MG/DL (74-106) Calcium Level 8.1 MG/DL (8.5-10.1) L 7.7 MG/DL (8.5-10.1) L 7.7 MG/DL (8.5-10.1) L 7.7 MG/DL (8.5-10.1) L Total Bilirubin 0.3 MG/DL (0.2-1.0) Aspartate Amino Transf (AST/SGOT) 23 U/L (15-37) Alanine Aminotransferase (ALT/SGPT) 8 U/L (12-78) L Alkaline Phosphatase 113 U/L (46-116) Total Protein 5.8 G/DL (6.4-8.2) L Albumin 1.1 G/DL (3.4-5.0) L Globulin 4.7 g/dL Albumin/Globulin Ratio 0.2 (1.0-2.7) L White Blood Count 9.2 K/UL (4.8-10.8) # Red Blood Count 2.56 M/UL (4.70-6.10) L Hemoglobin 8.1 G/DL (14.2-18.0) L Hematocrit 22.8 % (42.0-52.0) L Mean Corpuscular Volume 89 FL (80-99) Mean Corpuscular Hemoglobin 31.7 PG (27.0-31.0) H Mean Corpuscular Hemoglobin Concent 35.7 G/DL (32.0-36.0) Red Cell Distribution Width 17.6 % (11.6-14.8) H Platelet Count 190 K/UL (150-450) Mean Platelet Volume 5.8 FL (6.5-10.1) L Neutrophils (%) (Auto) 77.6 % (45.0-75.0) H Lymphocytes (%) (Auto) 12.4 % (20.0-45.0) L Monocytes (%) (Auto) 3.7 % (1.0-10.0) Eosinophils (%) (Auto) 5.8 % (0.0-3.0) H Basophils (%) (Auto) 0.5 % (0.0-2.0) Troponin I 0.114 ng/mL (0.000-0.056) Thyroid Stimulating Hormone (TSH) 63.879 uiU/mL (0.358-3.740) Random Vancomycin Level 10.6 ug/mL Test 04/05/20 08:19 Arterial Blood pH 7.407 (7.350-7.450) Arterial Blood Partial Pressure CO2 39.0 mmHg (35.0-45.0) Arterial Blood Partial Pressure O2 112.5 mmHg (75.0-100.0) H Arterial Blood HCO3 24.0 mmol/L (22.0-26.0) Arterial Blood Oxygen Saturation 97.3 % (95-100) Arterial Blood Base Excess -0.6 (-2-2) Urbano Test Positive Current Medications Medications (Trade) Dose Ordered Sig/Lanny Route PRN Reason Start Time Stop Time Status Last Admin Dose Admin Acetaminophen (Tylenol) 650 mg Q4H PRN ORAL FEVER 04/04/20 13:30 05/04/20 13:29 Albuterol/ Ipratropium (Albuterol/ Ipratropium) 3 ml Q6H PRN HHN Shortness of Breath 04/04/20 13:30 04/09/20 13:29 Chlorhexidine Gluconate (Kayla-Hex 2%) 1 applic DAILY@2000 TOPIC 04/04/20 20:00 07/03/20 19:59 04/04/20 21:00 Dextrose (Dextrose 50%) 25 ml Q30M PRN IV Hypoglycemia 04/04/20 13:30 07/03/20 13:29 Dextrose (Dextrose 50%) 50 ml Q30M PRN IV Hypoglycemia 04/04/20 13:30 07/03/20 13:29 Dopamine HCl/ Dextrose 250 ml @ 0 mls/hr Q24H IV 04/04/20 16:09 04/07/20 16:08 04/04/20 16:59 Heparin Sodium (Porcine) (Heparin 5000 units/ml) 5,000 units EVERY 12 HOURS SUBQ 04/04/20 21:00 05/19/20 20:59 04/05/20 08:32 Heparin Sodium/ Sodium Chloride (Heparin 1000 units/500ml Premix) 1,000 unit ONCE PRN IV PICC LINE PLACEMENT 04/04/20 19:45 04/07/20 19:44 Lidocaine HCl (Xylocaine 1% 30ml) 30 ml ONCE PRN INJ PICC LINE PLACEMENT 04/04/20 19:45 04/07/20 19:44 Piperacillin Sod/ Tazobactam Sod 3.375 gm/Sodium Chloride 110 ml @ 27.5 mls/hr Q8HR IVPB 04/04/20 14:00 04/11/20 13:59 04/05/20 05:11 Potassium Chloride 40 meq/ Dextrose 520 ml @ 130 mls/hr Q6H IVPB 04/04/20 15:00 04/05/20 12:59 04/05/20 10:58 Sodium 1,000 ml @ 150 mls/hr Q6H40M IV 04/04/20 15:00 05/04/20 14:59 04/05/20 05:10 Vancomycin HCl ([facility]anco pharmacy to dose) 1 ea DAILY PRN MISC Per rx protocol 04/04/20 14:30 05/04/20 14:29 Vancomycin HCl 1 gm/Sodium Chloride 250 ml @ 167.007 mls/hr ONCE IVPB 04/05/20 11:00 04/05/20 13:00 Isaak Hair MD Apr 05, 2020 11:10
--- NOTE | 2020-04-05 12:39 | Diagnostic Imaging Report ---
Indication: Shortness of breath Technique: One view of the chest Comparison: 03/09/2020 Findings: There is a tracheostomy again demonstrated. There is extensive interstitial and airspace infiltrates throughout the lungs bilaterally. The heart size is normal. There is probably a small amount of pleural fluid on the left. Impression: Bilateral infiltrates, likely pneumonia. Pulmonary edema also possibility. Suspect small left pleural effusion
--- NOTE | 2020-04-05 13:30 | NUR ---
NURSE NOTES: Bilateral upper extremity peripheral IV lines, not patent. Left Hand and right hand IV infilterated. Left foot IV patent and intact. Followed up with Ed, from radiology in regards to PICC line placement. Per Ed, pt will be taken after 2 more pts.
--- NOTE | 2020-04-05 13:40 | NUR ---
APPRAISER NOTE Pt is vent dependent, and non-verbal. Pt is from [facility] [address] [place] [address]. PT has readmitted to [facility] [place] 30 days: 03/05/2020-03/18/2020. PT's probate conservator is Srini Pelayo [phone]. Mr. Pelayo expresses full code for pt. SW to F/U as needed.
--- NOTE | 2020-04-05 14:33 | Nephrology Progress Note ---
Assessment/Plan Plan Sepsis - IV Abx Hypokalemia corrected Hypomagnesemia - corrected CKD - IVF Subjective Subjective Obtunded Objective Objective Last 24 Hour Vital Signs Date Time Temp Pulse Resp B/P (MAP) Pulse Ox O2 Delivery O2 Flow Rate FiO2 04/05/20 14:00 61 32 109/68 (82) 99 04/05/20 13:00 61 30 109/67 (81) 100 04/05/20 12:00 68 04/05/20 12:00 Room Air 04/05/20 12:00 98.2 68 27 115/52 (73) 100 04/05/20 12:00 30 04/05/20 11:00 59 31 130/70 (90) 100 04/05/20 10:00 58 28 121/65 (83) 100 04/05/20 09:00 59 27 124/63 (83) 100 04/05/20 08:00 Mechanical Ventilator 04/05/20 08:00 68 04/05/20 08:00 98.0 59 28 116/73 (87) 100 04/05/20 07:00 59 32 30 04/05/20 07:00 59 27 122/69 (86) 100 04/05/20 06:00 56 29 126/67 (86) 100 04/05/20 05:00 56 26 110/69 (83) 99 04/05/20 04:00 Mechanical Ventilator 04/05/20 04:00 62 04/05/20 04:00 98.5 51 26 110/75 (87) 97 04/05/20 03:00 60 29 116/83 (94) 100 04/05/20 02:38 64 32 35 04/05/20 02:00 59 26 116/78 (91) 100 04/05/20 01:00 66 27 119/75 (90) 100 04/05/20 00:30 53 25 102/61 (75) 100 04/05/20 00:00 48 04/05/20 00:00 Mechanical Ventilator 04/05/20 00:00 98.7 53 26 114/75 (88) 100 04/04/20 23:14 62 29 35 04/04/20 23:00 57 26 113/67 (82) 100 04/04/20 22:00 57 26 113/67 (82) 100 04/04/20 21:30 63 26 120/76 (91) 100 04/04/20 21:00 54 24 123/65 (84) 100 04/04/20 20:00 98.5 56 26 97/61 (73) 100 04/04/20 20:00 Mechanical Ventilator 04/04/20 20:00 69 04/04/20 19:01 52 26 35 04/04/20 19:00 56 26 97/61 (73) 100 04/04/20 18:00 57 26 97/41 (59) 100 04/04/20 17:57 105/66 04/04/20 17:00 49 26 101/61 (74) 100 04/04/20 16:59 88/57 04/04/20 16:31 52 88/57 (67) 100 04/04/20 16:00 73 04/04/20 16:00 Mechanical Ventilator 04/04/20 16:00 35 04/04/20 16:00 51 26 95/65 (75) 100 04/04/20 16:00 96.8 04/04/20 15:30 49 26 96/58 (71) 100 04/04/20 15:08 69 32 35 04/04/20 15:00 57 26 98/65 (76) 100 04/04/20 14:30 52 26 90/59 (69) 100 Intake and Output 04/04/20 04/05/20 19:00 07:00 Intake Total 3105.673 ml 2602.5 ml Output Total 150 ml 320 ml Balance 2955.673 ml 2282.5 ml Intake Free Water 100 ml IV Total 3005.673 ml 2322.5 ml Tube Feeding 280 ml Output Urine Total 150 ml 320 ml Laboratory Tests 04/04/20 14:50: Sodium Level 139, Potassium Level 1.8*L, Chloride Level 102, Carbon Dioxide Level 26, Anion Gap 10, Blood Urea Nitrogen 71H, Creatinine 2.5H, Estimat Glomerular Filtration Rate 25.1, Glucose Level 106, Calcium Level 8.1L, Total Bilirubin 0.3, Aspartate Amino Transf (AST/SGOT) 23, Alanine Aminotransferase (A LT/SGPT) 8L, Alkaline Phosphatase 113, Total Protein 5.8L, Albumin 1.1L, Alba bulin 4.7, Albumin/Globulin Ratio 0.2L 04/04/20 19:00: Sodium Level 138, Potassium Level 2.2*L, Chloride Level 101, Carbon Dioxide Level 27, Anion Gap 9, Blood Urea Nitrogen 71H, Creatinine 2.4H, Estimat Glomerular Filtration Rate 26.3, Glucose Level 122H, Calcium Level 7.7L 04/05/20 00:50: Sodium Level 136, Potassium Level 3.2L, Chloride Level 102, Carbon Dioxide Level 25, Anion Gap 9, Blood Urea Nitrogen 69H, Creatinine 2.4H, Estimat Glomerular Filtration Rate 26.3, Glucose Level 115H, Calcium Level 7.7L 04/05/20 07:40: Sodium Level 133L, Potassium Level 3.9, Chloride Level 103, Carbon Dioxide Level 25, Blood Urea Nitrogen 66H, Creatinine 2.4H, Estimat Glomerular Filtration Rate 26.3, Glucose Level 98, Calcium Level 7.7L, White Blood Count 9.2#, Red Blood Count 2.56L, Hemoglobin 8.1L, Hematocrit 22.8L, Mean Corpuscular Volume 89, Mean Corpuscular Hemoglobin 31.7H, Mean Corpuscular Hemoglobin Concent 35.7, Red Cell Distribution Width 17.6H, Platelet Count 190, Mean Platelet Volume 5.8L, Neutrophils (%) (Auto) 77.6H, Lymphocytes (%) (Auto) 12.4L, Monocytes (%) (Auto) 3.7, Eosinophils (%) (Auto) 5.8H, Basophils (%) (Auto) 0.5, Troponin I 0.114H, Thyroid Stimulating Hormone (TSH) 63.879H, Random Vancomycin Level 10.6 04/05/20 08:19: Arterial Blood pH 7.407, Arterial Blood Partial Pressure CO2 39.0, Arterial Blood Partial Pressure O2 112.5H, Arterial Blood HCO3 24.0, Arterial Blood Oxygen Saturation 97.3, Arterial Blood Base Excess -0.6, Urbano Test Positive Height (Feet): 5 Height (Inches): 4.00 Weight (Pounds): 139 Objective Obtunded. On Vent Trach clean Lungs B Miriam Bianchi SNT. [employer] Ayanna Maldonado MD Apr 05, 2020 14:33
--- NOTE | 2020-04-05 14:38 | Consultation ---
History of Present Illness General Reason for Hospitalization: General Complaint Present Illness HPI This is a 80-year-old male well-known to me from prior admissions and care plan who is a care facility patient care dependent tracheostomy on support the present at [facility] for tachycardia identified to have abnormal labs arrhythmia and admitted to the intensive care unit further care management. Patient identified his declining his prior with multiple skin concerns and overall requiring optimization. Surgery called to eval and assist with care. Patient seen, patient evaluated, chart reviewed. Patient unable to participate in examination or participate in care plan Allergies: Coded Allergies: No Known Allergies (Unverified , 02/23/12) COVID-19 Screening Contact w/high risk pt: No Experienced COVID-19 symptoms?: No Medication History Scheduled Acetaminophen* (Acetaminophen*), 640 MG GT DAILY, (Reported) Clonidine Hcl* (Catapres*), 0.1 MG GT Q4HR, (Reported) Cran/Vitc/Mannose/Inulin/Brom (Uti-Stat Liquid), 30 ML GT BID, (Reported) Docusate Sodium* (Docusate Sodium*), 100 MG GT TWICE A DAY, (Reported) Epoetin Asaf (Epogen), 10,000 UNIT SUBQ 3XW, (Reported) Ferrous Sulfate (Ferrous Sulfate), 7.5 ML GT TID, (Reported) Lansoprazole* (Lansoprazole*), 30 MG GT Q12HR, (Reported) Levetiracetam (Levetiracetam), 500 MG GT BID, (Reported) Levothyroxine Sodium* (Synthroid*), 150 MCG GT DAILY, (Reported) Multivitamin Liquid* (Multi-Delyn*), 15 ML GT DAILY, (Reported) Protein Supplement (Promod), 30 ML GT DAILY, (Reported) Vit C/Ascorbate Ca/Ascorb Sod (Vitamin C 500 Mg/15 Ml Liquid), 250 MG GT DAILY, (Reported) Scheduled PRN Lorazepam* (Ativan*), 1 MG GT Q4HR PRN for For Anxiety, (Reported) Metoclopramide Hcl* (Reglan*), 5 MG GT EVERY 6 HOURS PRN for Nausea & Vomiting, (Reported) Discontinued Medications Acetaminophen* (Tylenol*), 650 MG GT Q4H PRN for Mild Pain/Temp > 100.5, (Reported) Discontinued Reason: Therapy completed Amlodipine Besylate* (Amlodipine Besylate*), 5 MG GT DAILY, (Reported) Discontinued Reason: Therapy completed Ascorbic Acid* (Vitamin C*), 250 MG ORAL DAILY, (Reported) Discontinued Reason: Prescription changed Docusate Sodium* (Colace*), 100 MG ORAL TWICE A DAY, (Reported) Discontinued Reason: Therapy completed Epoetin Asaf (Epogen), 10,000 UNIT SUBQ THREE TIMES A WEEK, (Reported) Discontinued Reason: Therapy completed Famotidine* (Pepcid 20mg tablet*), 20 MG GT DAILY, (Reported) Discontinued Reason: Therapy completed Ferrous Sulfate (Ferrous Sulfate), 300 MG GT THREE TIMES A DAY, (Reported) Discontinued Reason: Therapy completed Ferrous Sulfate* (Ferrous Sulfate*), 325 MG ORAL DAILY, (Reported) Discontinued Reason: Prescription changed Levetiracetam (Keppra), 750 MG GT EVERY 12 HOURS, (Reported) Discontinued Reason: Therapy completed Levetiracetam (Keppra), 750 MG ORAL BID, (Reported) Discontinued Reason: Prescription changed Levothyroxine Sodium* (Synthroid*), 200 MCG GT DAILY, (Reported) Discontinued Reason: Therapy completed Levothyroxine Sodium* (Synthroid*), 125 MCG ORAL DAILY, (Reported) Discontinued Reason: Prescription changed Lorazepam* (Ativan*), 1 MG ORAL TWICE A DAY PRN for For Seizures, (Reported) Discontinued Reason: Therapy completed Multivitamin Liquid* (Multi-Delyn*), 15 ML GT DAILY, (Reported) Discontinued Reason: Therapy completed Multivitamin With Minerals (Multivitamins With Minerals*), 1 TAB ORAL DAILY, (Reported) Discontinued Reason: Prescription changed Potassium Chloride (Potassium Chloride), 11.25 MEQ PO DAILY, (Reported) Discontinued Reason: Therapy completed Patient History Limited by: medical condition History Provided By: Medical Record, PMD Healthcare decision maker Resuscitation status Advanced Directive on File Past Medical/Surgical History Past Medical/Surgical History: (1) Respiratory failure (2) GIB (gastrointestinal bleeding) (3) Aspiration pneumonia (4) ARF (acute renal failure) (5) HCAP (healthcare-associated pneumonia) (6) Dehydration (7) Hyperkalemia (8) Anemia (9) Decubitus skin ulcer (10) Hypernatremia (11) Renal insufficiency (12) Respiratory insufficiency (13) Malnutrition (14) UTI (urinary tract infection) (15) Metabolic acidosis (16) Pneumonia (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 (18) CKD (chronic kidney disease) stage 3, GFR 30-59 ml/min (19) Elevated LFTs (20) Protein-calorie malnutrition, severe (21) AUDREY (acute kidney injury) (22) Suspected COVID-19 virus infection (23) Hypokalemia (24) Hypomagnesemia (25) Sepsis (26) Chronic kidney disease (27) Ventilator associated pneumonia (28) CKD (chronic kidney disease) stage 5, GFR less than 15 ml/min Review of Systems Review of Symptoms -F-g-r-e-r-a-l- -R-O-S-:- -n-o- -h-v-i-g-h-t- -l-o-s-s- -o-r- -f-e-v-e-r- -N-h-b-e-m-q-h-c-h-i-c-a-l- -R-O-S-:- -n-o- -x-s-g-r-e--s-s-i-o-n- -o-r- -m-o-o-d- -q-w-x-n-g-e-s-,- -n-o- -m-q-h-o-r-y- -l-o-s-s- -Z-h-b-e-s-j-l-m-i-c- -R-O-S-:- -n-o- -e-n-m-u-a-l- -i-a-h-n-g-e-s- -o-r- -e-y-e- -x-c-v-i-w-i-t-i-o-n- -E-N-T- -R-O-S-:- -n-o- -n-a-s-a-l- -z-m-k-o-m-r-t-i-o-n-,- -a-m-l-r-i-n-g- -l-o-s-s-,- -r-n-f-u-y-x-e-s-s- -J-d-u-e-r-g-y- -a-n-d- -J-e-d-j-o-c-l-o-g-y- -R-O-S-:- -n-o- -j-d-m-e-r-g-i-c- -i-j-q-p-t-o-m-s- -o-r- -e-o-p-f-b-o-r-i-a- -X-w-p-c-y-p-b-x-a-i-c-a-l- -a-n-d- -T-w-p-j-d-p-t-i-c- -R-O-S-:- -n-o- -d-k-q-l-l-e-n- -p-n-y-n-d-s-,- -h-z-m-s-u-a-l- -e-e-c-e-d-i-n-g- -o--r- -m-j-h-i-s-i-n-g- -Y-t-a-d-l-y-i-n-e- -R-O-S-:- -n-o- -m-j-h-y-u-r-i-a-,- -i-a-z-d-w-e-p-s-i-a-,- -b-p-z-g-h-t- -i-z-j-n-g-e-s-,- -m-r-z-h-x-p-a-t-u-r-e- -u-n-o-b-m-l-r-a-n-c-e- -X-q-q-k-p-t-a-t-o-r-y- -R-O-S-:- -n-o- -c-o-u-g-h-,- -t-i-d-t-u-l-e-s-s- -o-f- -l-l-x-a-t-h-,- -o-r- -l-w-m-e-z-i-n-g- -K-p-i-w-u-h-w-p-k-c-u-l-a-r- -R-O-S-:- -n-o- -c--h-e-s-t- -p-a-i-n- -o-r- -n-e-g-p-n-e-a- -o-n- -s-h-w-r-t-i-o-n- -D-m-u-d-p-b-x-j-t-f-q-p-i-n-a-l- -R-O-S-:- -f-r-k-i-e-s- -t-k-l-r-r-k-n-a-l- -p-a-i-n-,- -m-s-i-g-h-t- -r-e-d- -b-l-o-o-d- -i-n- -s-t-o--o-l-.- -B-o-c-a-j-h-u-k-a-w-d-u-t-a-l- -R-O-S-:- -n-o- -y-o-r-l-g-i-a-s- -o-r- -a-x-s-h-l-j-l-g-i-a-s- -R-x-y-o-n-x-e-l-q-c-a-l- -R-O-S-:- -n-o- -T--I-A- -o-r- -y-r-j-o-k-e- -d-s-s-p-t-o-m-s- -J-q-w-d-w-w-t-z-m-g-i-c-a-l- -R-O-S-:- -n-o- -n-e-w- -o-r- -b-v-x-n-g-i-n-g- -s-k-i-n- -n-e-x-i-o-n-s-,- -j-p-f-h-e-s- -o-r- -d-g-g-r-i-t-i-s- limited given medical condition Physical Exam Physical Exam General appearance: mild distress, appears stated age Head: Normocephalic, without obvious abnormality, atraumatic Eyes: conjunctivae/corneas clear. PERRL, EOM's intact. Fundi benign Throat: Lips, mucosa, and tongue normal. Teeth and gums normal Neck: supple, symmetrical, trachea midline, no adenopathy, thyroid: not enlarged, symmetric, no tenderness/mass/nodules, no carotid bruit and no JVD+ trach Lungs: dec to auscultation bilaterally on vent Heart: tachy, no murmur, click, rub or gallop Abdomen: soft, non-tender. Bowel sounds normal. No masses, no organomegaly +peg Extremities: extremities normal, atraumatic, no cyanosis or edema Pulses: symmetric Skin: See below Neurologic: Grossly normal Last 24 Hour Vital Signs Date Time Temp Pulse Resp B/P (MAP) Pulse Ox O2 Delivery O2 Flow Rate FiO2 04/05/20 14:00 61 32 109/68 (82) 99 04/05/20 13:00 61 30 109/67 (81) 100 04/05/20 12:00 68 04/05/20 12:00 Room Air 04/05/20 12:00 98.2 68 27 115/52 (73) 100 04/05/20 12:00 30 04/05/20 11:00 59 31 130/70 (90) 100 04/05/20 10:00 58 28 121/65 (83) 100 04/05/20 09:00 59 27 124/63 (83) 100 04/05/20 08:00 Mechanical Ventilator 04/05/20 08:00 68 04/05/20 08:00 98.0 59 28 116/73 (87) 100 04/05/20 07:00 59 32 30 04/05/20 07:00 59 27 122/69 (86) 100 04/05/20 06:00 56 29 126/67 (86) 100 04/05/20 05:00 56 26 110/69 (83) 99 04/05/20 04:00 Mechanical Ventilator 04/05/20 04:00 62 04/05/20 04:00 98.5 51 26 110/75 (87) 97 04/05/20 03:00 60 29 116/83 (94) 100 04/05/20 02:38 64 32 35 04/05/20 02:00 59 26 116/78 (91) 100 04/05/20 01:00 66 27 119/75 (90) 100 04/05/20 00:30 53 25 102/61 (75) 100 04/05/20 00:00 48 04/05/20 00:00 Mechanical Ventilator 04/05/20 00:00 98.7 53 26 114/75 (88) 100 04/04/20 23:14 62 29 35 04/04/20 23:00 57 26 113/67 (82) 100 04/04/20 22:00 57 26 113/67 (82) 100 04/04/20 21:30 63 26 120/76 (91) 100 04/04/20 21:00 54 24 123/65 (84) 100 04/04/20 20:00 98.5 56 26 97/61 (73) 100 04/04/20 20:00 Mechanical Ventilator 04/04/20 20:00 69 04/04/20 19:01 52 26 35 04/04/20 19:00 56 26 97/61 (73) 100 04/04/20 18:00 57 26 97/41 (59) 100 04/04/20 17:57 105/66 04/04/20 17:00 49 26 101/61 (74) 100 04/04/20 16:59 88/57 04/04/20 16:31 52 88/57 (67) 100 04/04/20 16:00 73 04/04/20 16:00 Mechanical Ventilator 04/04/20 16:00 35 04/04/20 16:00 51 26 95/65 (75) 100 04/04/20 16:00 96.8 04/04/20 15:30 49 26 96/58 (71) 100 04/04/20 15:08 69 32 35 04/04/20 15:00 57 26 98/65 (76) 100 Intake and Output 04/04/20 04/05/20 19:00 07:00 Intake Total 3105.673 ml 2602.5 ml Output Total 150 ml 320 ml Balance 2955.673 ml 2282.5 ml Intake Free Water 100 ml IV Total 3005.673 ml 2322.5 ml Tube Feeding 280 ml Output Urine Total 150 ml 320 ml Laboratory Tests Test 04/04/20 14:50 04/04/20 19:00 04/05/20 00:50 04/05/20 07:40 Sodium Level 139 MMOL/L (136-145) 138 MMOL/L (136-145) 136 MMOL/L (136-145) 133 MMOL/L (136-145) L Potassium Level 1.8 MMOL/L (3.5-5.1) *L 2.2 MMOL/L (3.5-5.1) *L 3.2 MMOL/L (3.5-5.1) L 3.9 MMOL/L (3.5-5.1) Chloride Level 102 MMOL/L (98-107) 101 MMOL/L (98-107) 102 MMOL/L (98-107) 103 MMOL/L (98-107) Carbon Dioxide Level 26 MMOL/L (21-32) 27 MMOL/L (21-32) 25 MMOL/L (21-32) 25 MMOL/L (21-32) Anion Gap 10 mmol/L (5-15) 9 mmol/L (5-15) 9 mmol/L (5-15) Blood Urea Nitrogen 71 mg/dL (7-18) H 71 mg/dL (7-18) H 69 mg/dL (7-18) H 66 mg/dL (7-18) H Creatinine 2.5 MG/DL (0.55-1.30) H 2.4 MG/DL (0.55-1.30) H 2.4 MG/DL (0.55-1.30) H 2.4 MG/DL (0.55-1.30) H Estimat Glomerular Filtration Rate 25.1 mL/min (>60) 26.3 mL/min (>60) 26.3 mL/min (>60) 26.3 mL/min (>60) Glucose Level 106 MG/DL (74-106) 122 MG/DL (74-106) H 115 MG/DL (74-106) H 98 MG/DL (74-106) Calcium Level 8.1 MG/DL (8.5-10.1) L 7.7 MG/DL (8.5-10.1) L 7.7 MG/DL (8.5-10.1) L 7.7 MG/DL (8.5-10.1) L Total Bilirubin 0.3 MG/DL (0.2-1.0) Aspartate Amino Transf (AST/SGOT) 23 U/L (15-37) Alanine Aminotransferase (ALT/SGPT) 8 U/L (12-78) L Alkaline Phosphatase 113 U/L (46-116) Total Protein 5.8 G/DL (6.4-8.2) L Albumin 1.1 G/DL (3.4-5.0) L Globulin 4.7 g/dL Albumin/Globulin Ratio 0.2 (1.0-2.7) L White Blood Count 9.2 K/UL (4.8-10.8) # Red Blood Count 2.56 M/UL (4.70-6.10) L Hemoglobin 8.1 G/DL (14.2-18.0) L Hematocrit 22.8 % (42.0-52.0) L Mean Corpuscular Volume 89 FL (80-99) Mean Corpuscular Hemoglobin 31.7 PG (27.0-31.0) H Mean Corpuscular Hemoglobin Concent 35.7 G/DL (32.0-36.0) Red Cell Distribution Width 17.6 % (11.6-14.8) H Platelet Count 190 K/UL (150-450) Mean Platelet Volume 5.8 FL (6.5-10.1) L Neutrophils (%) (Auto) 77.6 % (45.0-75.0) H Lymphocytes (%) (Auto) 12.4 % (20.0-45.0) L Monocytes (%) (Auto) 3.7 % (1.0-10.0) Eosinophils (%) (Auto) 5.8 % (0.0-3.0) H Basophils (%) (Auto) 0.5 % (0.0-2.0) Troponin I 0.114 ng/mL (0.000-0.056) Thyroid Stimulating Hormone (TSH) 63.879 uiU/mL (0.358-3.740) Random Vancomycin Level 10.6 ug/mL Test 04/05/20 08:19 Arterial Blood pH 7.407 (7.350-7.450) Arterial Blood Partial Pressure CO2 39.0 mmHg (35.0-45.0) Arterial Blood Partial Pressure O2 112.5 mmHg (75.0-100.0) H Arterial Blood HCO3 24.0 mmol/L (22.0-26.0) Arterial Blood Oxygen Saturation 97.3 % (95-100) Arterial Blood Base Excess -0.6 (-2-2) Urbano Test Positive Height (Feet): 5 Height (Inches): 4.00 Weight (Pounds): 139 Medications Current Medications Medications (Trade) Dose Ordered Sig/Lanny Route PRN Reason Start Time Stop Time Status Last Admin Dose Admin Acetaminophen (Tylenol) 650 mg Q4H PRN ORAL FEVER 04/04/20 13:30 05/04/20 13:29 Albuterol/ Ipratropium (Albuterol/ Ipratropium) 3 ml Q6H PRN HHN Shortness of Breath 04/04/20 13:30 04/09/20 13:29 Chlorhexidine Gluconate (Kayla-Hex 2%) 1 applic DAILY@2000 TOPIC 04/04/20 20:00 07/03/20 19:59 04/04/20 21:00 Dextrose (Dextrose 50%) 25 ml Q30M PRN IV Hypoglycemia 04/04/20 13:30 07/03/20 13:29 Dextrose (Dextrose 50%) 50 ml Q30M PRN IV Hypoglycemia 04/04/20 13:30 07/03/20 13:29 Dopamine HCl/ Dextrose 250 ml @ 0 mls/hr Q24H IV 04/04/20 16:09 04/07/20 16:08 04/04/20 16:59 Heparin Sodium (Porcine) (Heparin 5000 units/ml) 5,000 units EVERY 12 HOURS SUBQ 04/04/20 21:00 05/19/20 20:59 04/05/20 08:32 Heparin Sodium/ Sodium Chloride (Heparin 1000 units/500ml Premix) 1,000 unit ONCE PRN IV PICC LINE PLACEMENT 04/04/20 19:45 04/07/20 19:44 Lidocaine HCl (Xylocaine 1% 30ml) 30 ml ONCE PRN INJ PICC LINE PLACEMENT 04/04/20 19:45 04/07/20 19:44 Piperacillin Sod/ Tazobactam Sod 3.375 gm/Sodium Chloride 110 ml @ 27.5 mls/hr Q8HR IVPB 04/04/20 14:00 04/11/20 13:59 04/05/20 05:11 Sodium 1,000 ml @ 150 mls/hr Q6H40M IV 04/04/20 15:00 05/04/20 14:59 04/05/20 05:10 Assessment/Plan Problem List: (1) Aspiration pneumonia ICD Codes: J69.0 - Pneumonitis due to inhalation of food and vomit SNOMED: 281970832 (2) Respiratory failure ICD Codes: J96.90 - Respiratory failure, unspecified, unspecified whether with hypoxia or hypercapnia SNOMED: 822603090 (3) ARF (acute renal failure) ICD Codes: N17.9 - Acute kidney failure, unspecified SNOMED: 74318935, 953918903 (4) GIB (gastrointestinal bleeding) ICD Codes: K92.2 - Gastrointestinal hemorrhage, unspecified SNOMED: 45660307 (5) Dehydration ICD Codes: E86.0 - Dehydration SNOMED: 05279173 (6) Hypokalemia ICD Codes: E87.6 - Hypokalemia SNOMED: 05876522 (7) Hyperkalemia ICD Codes: E87.5 - Hyperkalemia SNOMED: 62893555, 117700309 (8) Hypomagnesemia ICD Codes: E83.42 - Hypomagnesemia SNOMED: 690439051 (9) Anemia ICD Codes: D64.9 - Anemia, unspecified SNOMED: 712689870, 447165098 (10) Decubitus skin ulcer Assessment & Plan: Pt presented on admission with gross contractures, Multiple Pressure Injuries, Tracheostomy. Skin Assessed under tracheal collar and no evidence of skin breakdown noted. Tear noted to urinary meatus- no exudate noted. Scrotum is erythematous with scattered satellite lesions. Large ulcer noted to R scrotal sac (L)4cm x (W)4.6cm. Base of wound is erythematous ,moist with Biofilm. Sacral DTPI with clusters of small islands of slough with surrounding maroon and indurated areas (L)8cm x (W)12cm.Mild Odor noted. Partial thickness Pressure Injury Upper/outer R buttocks(L)1.8cm x (W)1.3cm. Base of wound is moist and viable. Edges adherent to base of wound. Surrounding non-blanching erythema with scattered areas of shearing noted. Partial thickness Pressure Inferior lower R buttocks.(L)0.8cm x (W)1.2cm. Base of wound is moist and viable. Edges adherent to base of wound. Surrounding non- blanching erythema with scattered shearing noted extending into R ischial tuberosity. Clusters of small hyperpigmentation noted to L trochanteric and L ischial tuberosity. R Heel is fluctuant with scattered dry eschar and surrounding Non-Blanchable erythema.(L)6.5cm x (W)8cm. DTPI distal/lateral R foot(L)3cm x (W)3cm. Base of wound is maroon and fluctuant. dry eschar noted to tip of R 1st metatarsal with surrounding non-blanchable erythema extending dorsally and laterally of metatarsal(L)5cm x (W)1.3cm Non-Blanchable erythema that is fluctuant at base noted to dorso/lateral L 5th metatarsal(L)0.6cm x (W)0.3cm. L Heel is boggy with non-blanchable erythema laterally. Hyperpigmentation from previous wound noted at L heel. Tx.Plan: Cleanse Sacral wound with Saline. Apply TheraHoney to slough. Apply Moisture Barrier Paste periwound. Cover with Optifoam drsg. Change daily and prn. Apply Moisture Barrier Paste to Wounds R upper and lower R Buttocks. Cover each wound with Optifoam drsg. Change every 3 days and prn. Apply Zinc Oxide Paste to Scrotal Wounds TID and prn. Apply Betadine to wounds R heel and R foot . Cover with ABD Pads and wrap with Kerlix every 3 days and prn. Apply Betadine to L foot. Cover with ABD Pads and wrap with Kerlix every 3 days and prn. Cover Bony Prominences as needed with Optifoam drsgs. Reposition at least every 2hours or as tolerated. Off-load heels with pillow. APM/VIRAL Mattress ICD Codes: L89.90 - Pressure ulcer of unspecified site, unspecified stage SNOMED: 055673846 (11) Hypernatremia ICD Codes: E87.0 - Hyperosmolality and hypernatremia SNOMED: 760086682 (12) Renal insufficiency ICD Codes: N28.9 - Disorder of kidney and ureter, unspecified SNOMED: 083122479, 765185028 (13) Respiratory insufficiency ICD Codes: R06.89 - Other abnormalities of breathing SNOMED: 716301030 (14) Malnutrition ICD Codes: E46 - Unspecified protein-calorie malnutrition SNOMED: 08630135 (15) Sepsis ICD Codes: A41.9 - Sepsis, unspecified organism SNOMED: 80529073 (16) UTI (urinary tract infection) ICD Codes: N39.0 - Urinary tract infection, site not specified SNOMED: 43958016, 434323918 (17) Metabolic acidosis ICD Codes: E87.2 - Acidosis SNOMED: 28888507 (18) Pneumonia ICD Codes: J18.9 - Pneumonia, unspecified organism SNOMED: 189463953 (19) Tracheal stenosis ICD Codes: J39.8 - Other specified diseases of upper respiratory tract SNOMED: 48104553 (20) Chronic kidney disease ICD Codes: N18.9 - Chronic kidney disease, unspecified SNOMED: 066597740, 33665464 (21) CKD (chronic kidney disease) stage 3, GFR 30-59 ml/min ICD Codes: N18.3 - Chronic kidney disease, stage 3 (moderate) SNOMED: 282876574 (22) CKD (chronic kidney disease) stage 5, GFR less than 15 ml/min ICD Codes: N18.5 - Chronic kidney disease, stage 5 SNOMED: 830428051 (23) Elevated LFTs ICD Codes: R94.5 - Abnormal results of liver function studies SNOMED: 582010448, 212903683 (24) Ventilator associated pneumonia ICD Codes: J95.851 - Ventilator associated pneumonia SNOMED: 333484298, 16667188 (25) Protein-calorie malnutrition, severe Assessment & Plan: DAILY ESTIMATED NEEDS: Needs based on Critical care, 63kg 22-30 kcals/kg 7939-4524 total kcals 1.25-2 g protein/kg 79-126 g total protein 25-30 mL/kg 4365-7176 total fluid mLs NUTRITION DIAGNOSIS: Swallowing difficulty r/ respiratory status as evidenced by pt is vent dep via trach, PEG dep. CURRENT TF: Nepro@45ml/hr x20 hrs ENTERAL NUTRITION RECOMMENDATIONS: Vital AF 1.2 @ 50ml/hr x 24 hrs to provide 1200ml, 1440kcal, 90g prot, 973ml free water - W/ consistently low lytes, rec TF change to Vital AF 1.2 for critical care - Start Vital AF 1.2 @30ml/hr for 6 hrs, advance as tolerated 10ml/hr q4-6 hrs to goal. - Flush per MD, HOB over 30 degrees ADDITIONAL RECOMMENDATIONS: 1) Calibrated bed scale wts as able-> now w/ added P200 mattress 2) Monitor renal labs and lytes 3) Wound care: When tolerating TF at goal add WILIAM BID -> rec WC eval 4) Monitor hemodynamic stability, dopamine on hold ICD Codes: E43 - Unspecified severe protein-calorie malnutrition SNOMED: 391643979, 837752018, 745658393 (26) AUDREY (acute kidney injury) ICD Codes: N17.9 - Acute kidney failure, unspecified SNOMED: 8333037, 88684127 (27) HCAP (healthcare-associated pneumonia) ICD Codes: J18.9 - Pneumonia, unspecified organism SNOMED: 607684392, 852129603 (28) Suspected COVID-19 virus infection ICD Codes: R68.89 - Other general symptoms and signs SNOMED: 705580886 (29) Colon distention Assessment & Plan: colonic distention abd mild distended tube in place ilius chronic Groundglass infiltrates noted in the right lung base. There is a denser consolidation in the posterior left lower lobe with air bronchogram. Some dependent atelectasis or infiltrates also noted posterior right lung base. Bilateral small pleural effusions noted. Images through upper abdomen degraded by streak artifact from the patient's arm position. The liver and spleen are grossly homogeneous to the extent visualized. Gallbladder is not visualized. Surgical clips in the gallbladder fossa. The pancreas is unremarkable. Adrenals are normal in morphology. There appears to be a low- density cyst in the lower pole of the left kidney. No hydronephrosis seen bilaterally. There is a G-tube in place. Small bowel loops are nondistended. There is gaseous distention of the colon. Sigmoid diverticulosis noted without sign of acute diverticulitis. The appendix is not visualized. There is a small amount of ascites in the lower abdomen/pelvis. No free air identified. No pathologic adenopathy demonstrated. Mild diffuse wall thickening of the urinary bladder noted. Question underlying cystitis. There appears to be an old fracture of the left femoral head/neck. The shaft is displaced superolaterally. There is old superior endplate depression of L1. IMPRESSION: BIBASILAR AIRSPACE DISEASE IN BOTH LUNG BASES INCLUDING RIGHT BASILAR GROUNDGLASS INFILTRATES AND DENSER CONSOLIDATION WITH AIR BRONCHOGRAMS IN THE LEFT LOWER LOBE. BILATERAL SMALL EFFUSIONS. G-TUBE IN PLACE. GASEOUS DISTENTION OF THE COLON. DIVERTICULOSIS NOTED WITHOUT SIGN OF ACUTE DIVERTICULITIS. SMALL AMOUNT OF ASCITES IN THE LOWER ABDOMEN/PELVIS. WALL THICKENING OF THE URINARY BLADDER. QUESTION UNDERLYING CYSTITIS. FRACTURE OF THE LEFT FEMORAL HEAD/NECK WHICH APPEARS OLD. LEFT FEMORAL SHAFT DISPLACED SUPEROLATERALLY. OLD SUPERIOR ENDPLATE DEPRESSION OF L1. ICD Codes: K63.89 - Other specified diseases of intestine SNOMED: 443007820 Rehan Geronimo Apr 05, 2020 14:38
--- NOTE | 2020-04-05 15:27 | NUR ---
NURSE NOTES: Skin/wound assessment: Patient is contracted .Sacral Pressure Ulcer stage 3 6.0x8.0x0.3 The area has small scattered deep ulcers that have red granulation tissue and epithelia between ulcers.Moderate amount of sanguineous drainage noted Thera honey and Optifoam applied.Periwound and scrotum excoriation noted triad skin protectant applied.Left lateral Ankle pressure ulcer DTI 0.5x0.5x0.0 red and purple in color no drainage cavalon and optifoam applied.Right lateral elbow stage 2 pressure ulcer 2.0x0.9x0.2 pink granulation tissue with scant serosanguineous drainage Triad and optifoam applied.Right lateral ankle pressure ulcer stage 1 2.5x2.5x0.0 red and non blanchable optifoam applied. Patient has a condom cath in place and Diarrhea noted .He is on a air mattress overlay. Spoke to RN recommend physician wound consult.
[2020-04-05] MEDS: DOPamine 400mg/250ml 250 ML IV SCH (16:00)
--- NOTE | 2020-04-05 17:03 | NUR ---
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 98.0 HR 65 RR 32 B/P 131/75 AC 26 TV 450 FIO2 30% PEEP 5 K 3.2 BUN 69 CR 2.4 TROP 0.114 IS: IVF NS @ 150ML/HR ZOSYN IV VANCO IV X 1 ICU STATUS
--- NOTE | 2020-04-05 18:00 | NUR ---
NURSE NOTES: Central line being placed at bedside
--- NOTE | 2020-04-05 18:16 | Brief Operative Note ---
Immediate Post Operative Note Operative Note Pre-op Diagnosis: needs access Procedure: PICC Surgeon: Rudolph Buck Anesthesia: local Specimen: none Complications: none Fluids: none Implant(s) used?: No Kendell Buck MD Apr 05, 2020 18:16
--- NOTE | 2020-04-05 18:29 | NUR ---
NURSE NOTES: Per Lab, pt is positive for gram + cocci in clusters.
--- NOTE | 2020-04-05 18:30 | NUR ---
RADIOLOGY NOTE: RIGHT UPPER EXTREMITY PICC LINE PLACEMENT BY DR. ZANDER REBOLLEDO AT 1750 HRS. FA
--- NOTE | 2020-04-05 19:45 | NUR ---
NURSE NOTES: Received patient From [facility] at this time. Patient in bed with eyes closed. Sinus Rhythm on the monitor. Trach to vent noted with ordered vent settings at this time. HAIDER PICC Newly inserted previous shift, All ports flush and with good blood return. GT Feeding Vital AF @50 with no residual. Condom cath draining by gravity. Bed in lowest position, side rails padded. No signs of distress noted. Will continue to monitor.
[2020-04-05] MEDS: Dyna-Hex 2% Top Sol 2oz TOPIC SCH (20:35)
[2020-04-05] MEDS: Epoetin Alfa-EPBX (NON ESRD)4000 units/ml vial SUBQ SCH (20:51)
--- NOTE | 2020-04-05 21:00 | NUR ---
NURSE NOTES: Received patient from MERLENE Bertrand. Patient resting in bed with no acute distress. Patient AOx0; presents with spontaneous eye opening. Attached to monitor; vitals stable to baseline. NSR. Mechanically vented; Trach portex 8; AC 26 TV 450 PEEP 5 FIO2 30%. GT flushed and patent; no residual noted; Vital AF running at 50cc/hr. Aspiration precautions observed. HOB raised >30 degrees. Right upper arm PICC noted; 1/[id number] infusing at 150 ml/hr. Condom catheter noted; draining well to gravity. Seizure precautions observed; side rails padded. All safety measures met; bed locked at lowest position; bed alarm set to zone 2; side rails raised x3; call light within reach.
--- NOTE | 2020-04-05 21:15 | NUR ---
HAND-OFF: Report given to Aaron OLSON RN at this time.
--- NOTE | 2020-04-05 22:23 | Diagnostic Imaging Report ---
Indications: Needs long-term IV access Technique: Procedure performed at bedside. Procedural timeout performed. Ultrasound confirms patent compressible right basilic vein. Total sterile technique, including sterile probe cover and sterile gel, sterile gloves, hand hygiene, hat, mask,, sterile gown, large sterile drape, and preparation with 2% chlorhexidine utilized. Local anesthesia with 1% lidocaine. Under real-time ultrasound guidance, puncture basilic vein using 21-gauge needle, passage 0.018 guidewire, exchange for 4 Azerbaijani peel-away sheath. 4 Azerbaijani Bard dual-lumen power PICC cut to 36 cm. It was inserted through the peel-away sheath. Peel-away sheath and guidewire removed. Catheter fixed to the skin. Both catheter ports aspirated and flushed. Patient tolerated procedure well, without immediate complication. Followup chest x-ray obtained, documents catheter tip position at the cavoatrial junction Impression: Successful bedside placement of right arm PICC under sonographic guidance, as described above.
--- NOTE | 2020-04-05 23:50 | Cardiology Progress Note ---
Subjective DATE OF SERVICE: Apr 05, 2020 Remains in ICU with critical condition & guarded prognosis. Sputum culture with gm neg pathogens TSH is over 63. Objective Last 24 Hour Vital Signs Date Time Temp Pulse Resp B/P (MAP) Pulse Ox O2 Delivery O2 Flow Rate FiO2 04/05/20 23:02 60 30 30 04/05/20 23:00 61 28 128/60 (82) 100 04/05/20 22:00 63 30 125/79 (94) 100 04/05/20 21:00 62 28 126/87 (100) 100 04/05/20 20:00 62 04/05/20 20:00 98.2 62 28 117/75 (89) 100 04/05/20 20:00 Mechanical Ventilator 04/05/20 19:25 71 33 30 04/05/20 19:00 63 26 116/81 (93) 99 04/05/20 18:00 68 24 132/88 (103) 99 04/05/20 17:00 63 28 128/75 (92) 100 04/05/20 16:00 98.0 65 32 131/75 (93) 100 04/05/20 16:00 Mechanical Ventilator 04/05/20 16:00 110/81 04/05/20 16:00 65 04/05/20 15:20 67 28 30 04/05/20 15:00 61 30 126/73 (90) 100 04/05/20 14:00 61 32 109/68 (82) 99 04/05/20 13:00 61 30 109/67 (81) 100 04/05/20 12:00 68 04/05/20 12:00 Room Air 04/05/20 12:00 98.2 68 27 115/52 (73) 100 04/05/20 12:00 30 04/05/20 11:26 60 26 30 04/05/20 11:00 59 31 130/70 (90) 100 04/05/20 10:00 58 28 121/65 (83) 100 04/05/20 09:00 59 27 124/63 (83) 100 04/05/20 08:00 Mechanical Ventilator 04/05/20 08:00 68 04/05/20 08:00 98.0 59 28 116/73 (87) 100 04/05/20 07:00 59 32 30 04/05/20 07:00 59 27 122/69 (86) 100 10/7/20 06:00 56 29 126/67 (86) 100 04/05/20 05:00 56 26 110/69 (83) 99 04/05/20 04:00 Mechanical Ventilator 04/05/20 04:00 62 04/05/20 04:00 98.5 51 26 110/75 (87) 97 04/05/20 03:00 60 29 116/83 (94) 100 04/05/20 02:38 64 32 35 04/05/20 02:00 59 26 116/78 (91) 100 04/05/20 01:00 66 27 119/75 (90) 100 04/05/20 00:30 53 25 102/61 (75) 100 04/05/20 00:00 48 04/05/20 00:00 Mechanical Ventilator 04/05/20 00:00 98.7 53 26 114/75 (88) 100 HEENT: Thick Trach secretions RHYTHM: NSR, other - PAFib LUNGS: bilateral rhonchi, trach site clean CARDIAC: normal rate, regular rhythm, normal S1 and S2 ABDOMEN: non tender, soft, G-Tube intact EXTREMITIES: no calf tenderness, no swelling Laboratory Tests Test 04/05/20 00:50 04/05/20 07:40 04/05/20 08:19 Sodium Level 136 MMOL/L (136-145) 133 MMOL/L (136-145) L Potassium Level 3.2 MMOL/L (3.5-5.1) L 3.9 MMOL/L (3.5-5.1) Chloride Level 102 MMOL/L (98-107) 103 MMOL/L (98-107) Carbon Dioxide Level 25 MMOL/L (21-32) 25 MMOL/L (21-32) Anion Gap 9 mmol/L (5-15) Blood Urea Nitrogen 69 mg/dL (7-18) H 66 mg/dL (7-18) H Creatinine 2.4 MG/DL (0.55-1.30) H 2.4 MG/DL (0.55-1.30) H Estimat Glomerular Filtration Rate 26.3 mL/min (>60) 26.3 mL/min (>60) Glucose Level 115 MG/DL (74-106) H 98 MG/DL (74-106) Calcium Level 7.7 MG/DL (8.5-10.1) L 7.7 MG/DL (8.5-10.1) L White Blood Count 9.2 K/UL (4.8-10.8) # Red Blood Count 2.56 M/UL (4.70-6.10) L Hemoglobin 8.1 G/DL (14.2-18.0) L Hematocrit 22.8 % (42.0-52.0) L Mean Corpuscular Volume 89 FL (80-99) Mean Corpuscular Hemoglobin 31.7 PG (27.0-31.0) H Mean Corpuscular Hemoglobin Concent 35.7 G/DL (32.0-36.0) Red Cell Distribution Width 17.6 % (11.6-14.8) H Platelet Count 190 K/UL (150-450) Mean Platelet Volume 5.8 FL (6.5-10.1) L Neutrophils (%) (Auto) 77.6 % (45.0-75.0) H Lymphocytes (%) (Auto) 12.4 % (20.0-45.0) L Monocytes (%) (Auto) 3.7 % (1.0-10.0) Eosinophils (%) (Auto) 5.8 % (0.0-3.0) H Basophils (%) (Auto) 0.5 % (0.0-2.0) Troponin I 0.114 ng/mL (0.000-0.056) Thyroid Stimulating Hormone (TSH) 63.879 uiU/mL (0.358-3.740) Random Vancomycin Level 10.6 ug/mL Arterial Blood pH 7.407 (7.350-7.450) Arterial Blood Partial Pressure CO2 39.0 mmHg (35.0-45.0) Arterial Blood Partial Pressure O2 112.5 mmHg (75.0-100.0) H Arterial Blood HCO3 24.0 mmol/L (22.0-26.0) Arterial Blood Oxygen Saturation 97.3 % (95-100) Arterial Blood Base Excess -0.6 (-2-2) [place] Test Positive Microbiology Date/Time Source Procedure Growth Status 04/04/20 15:42 Sputum Gram Stain - Final Resulted 04/04/20 15:42 Sputum Culture - Preliminary Gram Negative Bacillus 1 Gram Negative Bacillus 2 Resulted 04/04/20 08:00 Rectum Received 04/04/20 07:50 Blood Blood Culture - Preliminary Resulted 04/04/20 07:50 Blood Blood Culture - Preliminary Resulted 04/04/20 07:23 Nasopharynx SARS-CoV-2 RdRp Gene Assay - Final Complete Assessment/Plan Assessment/Plan Sepsis Shock HC associated PNA Anemia Hypothyroidism Vent-dep respiratory failure PAFib with episodes of RVR Chronic diastolic CHF Acute myocardial ischemia Hypokalemia Taper off pressors Abx Vent support Resp Rx DVT prophyl IV thyroid replacement Replace lytes/Mg++ Titrate cardiovascular regimen Franko Pineda MD Apr 05, 2020 23:50
[2020-04-06] VITALS (20 sets, daily range): BP systolic 112–151; BP diastolic 60–118
--- NOTE | 2020-04-06 01:00 | NUR ---
NURSE NOTES: Partial bed bath provided. Patient remains free from injury. Axillary temp 97.9F. Continued infusion with new bag of 1/[id number] at a rate of 150ml/hr.
[2020-04-06] MEDS: 1/2NS w/KCl 20mEq 1000ml 1,000 ML IV SCH ×4 (01:47→20:38)
--- NOTE | 2020-04-06 04:00 | NUR ---
NURSE NOTES: AM labs drawn via PICC Line; sent down to lab. Patient presents with episodes of tachycardia and tachypnea with peak pressures in the 60s. Left message for Juan COOK; awaiting call back.
[2020-04-06 05:06] LABS: INR 1.2 (0.9-1.1)
[2020-04-06 05:07] LABS: BASOPHILS % (AUTO) 0.6 % (0.0-2.0); EOSINOPHILS % (AUTO) 7.6 % (0.0-3.0); HEMATOCRIT 24.9 % (42.0-52.0); HEMOGLOBIN 8.5 G/DL (14.2-18.0); LYMPHOCYTES % (AUTO) 12.2 % (20.0-45.0); MEAN CORPUSCULAR VOLUME 91 FL (80-99); MONOCYTES % (AUTO) 4.4 % (1.0-10.0); NEUTROPHILS % (AUTO) 75.2 % (45.0-75.0); PLATELET COUNT 213 K/UL (150-450); RED BLOOD COUNT 2.74 M/UL (4.70-6.10); RED CELL DISTRIBUTION WIDTH 18.2 % (11.6-14.8); WHITE BLOOD COUNT 9.8 K/UL (4.8-10.8)
[2020-04-06 05:26] LABS: ALBUMIN 1.2 G/DL (3.4-5.0); ALBUMIN/GLOBULIN RATIO 0.2 (1.0-2.7); BILIRUBIN,TOTAL 0.3 MG/DL (0.2-1.0); CALCIUM 7.7 MG/DL (8.5-10.1); CREATININE 2.3 MG/DL (0.55-1.30); POTASSIUM 3.6 MMOL/L (3.5-5.1)
[2020-04-06] MEDS: Piperacillin/Tazobactam 3.375 GM in NS 110 ML IVPB SCH ×3 (05:41→20:38)
--- NOTE | 2020-04-06 05:56 | NUR ---
CASE MANAGEMENT: REVIEW SI: SEPSIS . VENT-DEP RESP FAILURE . A-FIB w/RVR . ACUTE MYOCARDIAL ISCHEMIA T 98.1 HR 105 RR 29 BP 144/118 SAT 98% MECH VENT FIO2 30 H/H 8.5/24.9 NA 135 BUN 65 CR 2.3 TROP 0.114 SPUTUM CULTURE -- K.PNEUMONIAE IS: SYNTHROID 50MCG IV QD ZYVOX IV Q12HR DOPAMINE IV Q24HR NS IVF w 150ML/HR ZOSYN IV Q8HR PICC PLACEMENT 04/05 ICU STATUS DCP: PATIENT IS FROM [facility]
--- NOTE | 2020-04-06 06:00 | NUR ---
NURSE NOTES: Received order from Juan COOK for Ativan 1mg iv q3h prn; noted and carried out.
[2020-04-06] MEDS ORDERED: LORazepam Inj 2mg/ml 1ml IV PRN (06:15)
--- NOTE | 2020-04-06 07:00 | NUR ---
NURSE NOTES: followed up with pharmacy regarding synthroid 50 mcg ivp. per pharmacist; will deliver to icu when ready. md Rosalinda at bedside; updated with patient progress.
--- NOTE | 2020-04-06 07:08 | General Progress Note ---
Subjective ROS Limited/Unobtainable: Yes Constitutional: Reports: malaise, weakness HEENT: Reports: no symptoms Cardiovascular: Reports: no symptoms Respiratory: Reports: shortness of breath, SOB at rest, sputum Gastrointestinal/Abdominal: Reports: difficulty swallowing Genitourinary: Reports: no symptoms Neurologic/Psychiatric: Reports: pre-existing deficit, seizure Endocrine: Reports: no symptoms Hematologic/Lymphatic: Reports: anemia Allergies: Coded Allergies: No Known Allergies (Unverified , 02/23/12) All Systems: reviewed and negative except above Subjective no events. agitated last night. better after ativan. tolerating feeds. no fevers. BP stable. +congestion and secretions Objective Last 24 Hour Vital Signs Date Time Temp Pulse Resp B/P (MAP) Pulse Ox O2 Delivery O2 Flow Rate FiO2 04/06/20 06:00 62 27 136/64 (88) 100 04/06/20 05:00 66 28 115/73 (87) 100 04/06/20 04:09 105 38 100 Mechanical Ventilator 30 108 35 30 04/06/20 04:00 98.1 96 29 120/79 (93) 98 04/06/20 04:00 105 04/06/20 04:00 Mechanical Ventilator 04/06/20 03:20 62 29 30 04/06/20 03:00 76 27 144/118 (127) 100 04/06/20 02:00 69 31 130/81 (97) 99 04/06/20 01:00 69 29 119/82 (94) 100 04/06/20 00:00 97.9 63 19 112/65 (81) 100 04/06/20 00:00 66 04/06/20 00:00 Mechanical Ventilator 04/05/20 23:02 60 30 30 04/05/20 23:00 61 28 128/60 (82) 100 04/05/20 22:00 63 30 125/79 (94) 100 04/05/20 21:00 62 28 126/87 (100) 100 04/05/20 20:00 62 04/05/20 20:00 98.2 62 28 117/75 (89) 100 04/05/20 20:00 Mechanical Ventilator 04/05/20 19:25 71 33 30 04/05/20 19:00 63 26 116/81 (93) 99 04/05/20 18:00 68 24 132/88 (103) 99 04/05/20 17:00 63 28 128/75 (92) 100 04/05/20 16:00 98.0 65 32 131/75 (93) 100 04/05/20 16:00 Mechanical Ventilator 04/05/20 16:00 110/81 04/05/20 16:00 65 04/05/20 15:20 67 28 30 04/05/20 15:00 61 30 126/73 (90) 100 04/05/20 14:00 61 32 109/68 (82) 99 04/05/20 13:00 61 30 109/67 (81) 100 04/05/20 12:00 68 04/05/20 12:00 Room Air 04/05/20 12:00 98.2 68 27 115/52 (73) 100 04/05/20 12:00 30 04/05/20 11:26 60 26 30 04/05/20 11:00 59 31 130/70 (90) 100 04/05/20 10:00 58 28 121/65 (83) 100 04/05/20 09:00 59 27 124/63 (83) 100 04/05/20 08:00 Mechanical Ventilator 04/05/20 08:00 68 04/05/20 08:00 98.0 59 28 116/73 (87) 100 Intake and Output 04/05/20 04/06/20 18:59 06:59 Intake Total 1977.5 ml 2410.0 ml Output Total 345 ml 240 ml Balance 1632.5 ml 2170.0 ml Intake Free Water 160 ml IV Total 1317.5 ml 1650.0 ml Tube Feeding 660 ml 600 ml Output Urine Total 345 ml 240 ml # Voids 20 # Bowel Movements 3 1 Laboratory Tests 04/05/20 07:40: White Blood Count 9.2#, Red Blood Count 2.56L, Hemoglobin 8.1L, Hematocrit 22.8L , Mean Corpuscular Volume 89, Mean Corpuscular Hemoglobin 31.7H, Mean Corpuscular Hemoglobin Concent 35.7, Red Cell Distribution Width 17.6H, Platelet Count 190, Mean Platelet Volume 5.8L, Neutrophils (%) (Auto) 77.6H, Lymphocytes (%) (Auto) 12.4L, Monocytes (%) (Auto) 3.7, Eosinophils (%) (Auto) 5.8H, Basophils (%) (Auto) 0.5, Sodium Level 133L, Potassium Level 3.9, Chloride Level 103, Carbon Dioxide Level 25, Blood Urea Nitrogen 66H, Creatinine 2.4H, Estimat Glomerular Filtration Rate 26.3, Glucose Level 98, Calcium Level 7.7L, Troponin I 0.114H, Thyroid Stimulating Hormone (TSH) 63.879H, Random Vancomycin Level 10.6 04/05/20 08:19: Arterial Blood pH 7.407, Arterial Blood Partial Pressure CO2 39.0, Arterial Blood Partial Pressure O2 112.5H, Arterial Blood HCO3 24.0, Arterial Blood Oxygen Saturation 97.3, Arterial Blood Base Excess -0.6, [place] Test Positive 04/06/20 04:00: White Blood Count 9.8, Red Blood Count 2.74L, Hemoglobin 8.5L, Hematocrit 24.9L, Mean Corpuscular Volume 91, Mean Corpuscular Hemoglobin 31.2H, Mean Corpuscular Hemoglobin Concent 34.4, Red Cell Distribution Width 18.2H, Platelet Count 213, Mean Platelet Volume 6.1L, Neutrophils (%) (Auto) 75.2H, Lymphocytes (%) (Auto) 12.2L, Monocytes (%) (Auto) 4.4, Eosinophils (%) (Auto) 7.6H, Basophils (%) (Auto) 0.6, Sodium Level 135L, Potassium Level 3.6, Chloride Level 103, Carbon Dioxide Level 24, Blood Urea Nitrogen 65H, Creatinine 2.3H, Estimat Glomerular Filtration Rate 27.6, Glucose Level 100, Calcium Level 7.7L, Erythrocyte Sedimentation Rate [Pending], Prothrombin Time 12.7H, Prothromb Time International Ratio 1.2H, Activated Partial Thromboplast Time 35H, Anion Gap 8, Total Bilirubin 0.3, Aspartate Amino Transf (AST/SGOT) 36, Alanine Aminotransferase (ALT/SGPT) 17, Alkaline Phosphatase 117H, C-Reactive Protein, Quantitative 8.2H, Total Protein 6.1L, Albumin 1.2L, Globulin 4.9, Albumin/Globulin Ratio 0.2L, Lipase 92 Height (Feet): 5 Height (Inches): 4.00 Weight (Pounds): 139 General Appearance: WD/WN, lethargic, confused EENT: normal ENT inspection Neck: normal alignment, supple Cardiovascular: normal peripheral pulses, normal rate, regular rhythm Respiratory/Chest: chest wall non-tender, rhonchi - bilaterally Abdomen: normal bowel sounds, non tender, soft, no organomegaly Extremities: normal range of motion Edema: no edema noted Arm (L), no edema noted Arm (R) Neurologic: unresponsive, aphasia Skin: normal pigmentation Assessment/Plan Problem List: (1) Aspiration pneumonia ICD Codes: J69.0 - Pneumonitis due to inhalation of food and vomit SNOMED: 132350441 (2) Respiratory failure ICD Codes: J96.90 - Respiratory failure, unspecified, unspecified whether with hypoxia or hypercapnia SNOMED: 376494173 (3) ARF (acute renal failure) ICD Codes: N17.9 - Acute kidney failure, unspecified SNOMED: 47338809, 574621437 (4) Decubitus skin ulcer ICD Codes: L89.90 - Pressure ulcer of unspecified site, unspecified stage SNOMED: 399404025 (5) Sepsis ICD Codes: A41.9 - Sepsis, unspecified organism SNOMED: 37701040 (6) UTI (urinary tract infection) ICD Codes: N39.0 - Urinary tract infection, site not specified SNOMED: 10331505, 412746373 (7) Pneumonia ICD Codes: J18.9 - Pneumonia, unspecified organism SNOMED: 338263043 (8) HCAP (healthcare-associated pneumonia) ICD Codes: J18.9 - Pneumonia, unspecified organism SNOMED: 435040239, 791059202 (9) AUDRYE (acute kidney injury) ICD Codes: N17.9 - Acute kidney failure, unspecified SNOMED: 9190835, 40694164 (10) Protein-calorie malnutrition, severe ICD Codes: E43 - Unspecified severe protein-calorie malnutrition SNOMED: 496716053, 835009786, 489035736 (11) Chronic kidney disease ICD Codes: N18.9 - Chronic kidney disease, unspecified SNOMED: 730818018, 24945470 Status: stable Assessment/Plan: cont vent support resp rx and suctioning as needed tube feeds follow up cultures- sputum and blood wound care IVF monitor labs and volume status anxiolytics dvt/stress ulcer prophylaxis poor prognosis full code per RP Jimi Tellez MD Apr 06, 2020 07:08
[2020-04-06] MEDS: Heparin 5000 units/ml inj SUBQ SCH ×2 (07:58→20:37)
--- NOTE | 2020-04-06 08:00 | NUR ---
NURSE NOTES: received synthroid from pharmacy. medicated patient as prescribed; patient tolerated well. patient remains in bed with no acute distress. rt at bedside; pt suctioned. pt presents with copious thick secretions.
[2020-04-06] MEDS: levETIRAcetam 500mg/5ml Liquid GT SCH ×2 (08:40→20:38)
--- NOTE | 2020-04-06 08:45 | History and Physical Report ---
DATE OF ADMISSION: 04/04/2020 HISTORY OF PRESENT ILLNESS: The patient is a 80-year-old male with a history of chronic respiratory failure, encephalopathy, stroke, seizure disorder, paroxysmal atrial fibrillation, chronic kidney disease, anemia. He was transferred from a [facility] facility with complaints of tachycardia and shortness of breath. On evaluation in the emergency room, the patient was tachycardic to 130. Laboratories were significant for white count of 20,000. Chest x-ray showed bilateral infiltrates. The patient was also noted to be hypotensive. He was started on antibiotics as well as dopamine and is now admitted to intensive care unit for further evaluation and care. The patient is nonverbal at baseline. He is unable provide any additional history. PAST MEDICAL HISTORY: As above. PAST SURGICAL HISTORY: Includes a history of a trach and a G-tube. CURRENT MEDICATIONS: Reconciled and reviewed. ALLERGIES: None. FAMILY HISTORY: None. SOCIAL HISTORY: There is no known history of tobacco, ethanol, or drugs. REVIEW OF SYSTEMS: From the patient is unobtainable as he is nonverbal. PHYSICAL EXAMINATION: VITAL SIGNS: Temperature was 97.5, pulse 133, respirations 16, initial blood pressure was 109/78 but later dropped to 80/57. GENERAL: The patient is a chronically ill-appearing male, in no apparent distress. He is nonverbal at baseline. HEENT: Head is normocephalic. Sclerae anicteric. Oropharynx clear. NECK: Supple. HEART: Regular rate and rhythm. LUNGS: Significant for scattered rhonchi and rales. ABDOMEN: Soft, nontender, nondistended. EXTREMITIES: Without clubbing, cyanosis, or edema. LABORATORY AND DIAGNOSTIC DATA: Sodium is 136, potassium 3.2, BUN 69, creatinine is 2.4. White count 20,000, hemoglobin 9.3. Troponin was 0.114. TSH was . Chest x-ray showed bilateral infiltrates. ASSESSMENT: This is an unfortunate 80-year-old male with history of chronic respiratory failure, stroke, encephalopathy, chronic kidney disease, anemia, admitted with complaints of sepsis secondary to pneumonia. PLAN: 1. Broad-spectrum IV antibiotics. 2. Continue vent support. 3. Pressors as needed. 4. G-tube feedings. 5. Continue thyroid replacement therapy. 6. The patient's status is currently critical and guarded. Jimi Tellez M.D. DR: Sumit JOB#: [id number] CC:
--- NOTE | 2020-04-06 08:54 | Critical Care Progress Note ---
Assessment/Plan Assessment/Plan IMPRESSION: Respiratory failure chronic, chronic encephalopathy, septic shock, leukocytosis, ground-glass infiltrates, G-tube, aspiration, acute on chronic renal failure, profound hypokalemia, failure to thrive, severe protein-calorie malnutrition, chronic CO2 retention, and hypomagnesemia. PLAN care noted IV antibotics IV fluids monitor lytes feeds vent- monitor acid base off load wound care ICU care close follow up transition to [facility] if able medications/laboratory data/nursing notes/ICU care reviewed in detail note reviewed and edited care discussed with RN and RT ICU time spent >40 minutes Critical Care - Subjective Interval Events: overall care noted ++cultures hemodynamics reviewed ICU care noted ROS Limited/Unobtainable: Yes Condition: critical EKG Rhythm: Sinus Rhythm Residuals: minimal Tube Feeding Tolerated: yes I&O: Intake and Output 04/05/20 04/06/20 18:59 06:59 Intake Total 1977.5 ml 2410.0 ml Output Total 345 ml 240 ml Balance 1632.5 ml 2170.0 ml Intake Free Water 160 ml IV Total 1317.5 ml 1650.0 ml Tube Feeding 660 ml 600 ml Output Urine Total 345 ml 240 ml # Voids 20 # Bowel Movements 3 1 Critical Care - Objective Last 24 Hour Vital Signs Date Time Temp Pulse Resp B/P (MAP) Pulse Ox O2 Delivery O2 Flow Rate FiO2 04/06/20 08:00 68 04/06/20 08:00 98.2 65 25 132/83 (99) 100 04/06/20 08:00 Mechanical Ventilator 04/06/20 07:49 66 33 30 04/06/20 07:00 69 26 132/70 (90) 100 04/06/20 06:00 62 27 136/64 (88) 100 04/06/20 05:00 66 28 115/73 (87) 100 04/06/20 04:09 105 38 100 Mechanical Ventilator 30 108 35 30 04/06/20 04:00 98.1 96 29 120/79 (93) 98 04/06/20 04:00 105 04/06/20 04:00 Mechanical Ventilator 04/06/20 03:20 62 29 30 04/06/20 03:00 76 27 144/118 (127) 100 04/06/20 02:00 69 31 130/81 (97) 99 04/06/20 01:00 69 29 119/82 (94) 100 04/06/20 00:00 97.9 63 19 112/65 (81) 100 04/06/20 00:00 66 04/06/20 00:00 Mechanical Ventilator 04/05/20 23:02 60 30 30 04/05/20 23:00 61 28 128/60 (82) 100 04/05/20 22:00 63 30 125/79 (94) 100 04/05/20 21:00 62 28 126/87 (100) 100 04/05/20 20:00 62 04/05/20 20:00 98.2 62 28 117/75 (89) 100 04/05/20 20:00 Mechanical Ventilator 04/05/20 19:25 71 33 30 04/05/20 19:00 63 26 116/81 (93) 99 04/05/20 18:00 68 24 132/88 (103) 99 04/05/20 17:00 63 28 128/75 (92) 100 04/05/20 16:00 98.0 65 32 131/75 (93) 100 04/05/20 16:00 Mechanical Ventilator 04/05/20 16:00 110/81 04/05/20 16:00 65 04/05/20 15:20 67 28 30 04/05/20 15:00 61 30 126/73 (90) 100 04/05/20 14:00 61 32 109/68 (82) 99 04/05/20 13:00 61 30 109/67 (81) 100 04/05/20 12:00 68 04/05/20 12:00 Room Air 04/05/20 12:00 98.2 68 27 115/52 (73) 100 04/05/20 12:00 30 04/05/20 11:26 60 26 30 04/05/20 11:00 59 31 130/70 (90) 100 04/05/20 10:00 58 28 121/65 (83) 100 04/05/20 09:00 59 27 124/63 (83) 100 Labs: Laboratory Tests 04/06/20 04:00: White Blood Count 9.8, Red Blood Count 2.74L, Hemoglobin 8.5L, Hematocrit 24.9L, Mean Corpuscular Volume 91, Mean Corpuscular Hemoglobin 31.2H, Mean Corpuscular Hemoglobin Concent 34.4, Red Cell Distribution Width 18.2H, Platelet Count 213, Mean Platelet Volume 6.1L, Neutrophils (%) (Auto) 75.2H, Lymphocytes (%) (Auto) 12.2L, Monocytes (%) (Auto) 4.4, Eosinophils (%) (Auto) 7.6H, Basophils (%) (Auto) 0.6, Erythrocyte Sedimentation Rate 103H, Prothrombin Time 12.7H, Prothromb Time International Ratio 1.2H, Activated Partial Thromboplast Time 35H , Sodium Level 135L, Potassium Level 3.6, Chloride Level 103, Carbon Dioxide Level 24, Anion Gap 8, Blood Urea Nitrogen 65H, Creatinine 2.3H, Estimat Glomerular Filtration Rate 27.6, Glucose Level 100, Calcium Level 7.7L, Total Bilirubin 0.3, Aspartate Amino Transf (AST/SGOT) 36, Alanine Aminotransferase (ALT/SGPT) 17, Alkaline Phosphatase 117H, C-Reactive Protein, Quantitative 8.2H, Total Protein 6.1L, Albumin 1.2L, Globulin 4.9, Albumin/Globulin Ratio 0.2L, Lipase 92 Objective: GENERAL: The patient is an ill-appearing male, significantly debilitated. HEENT: Negative. NECK: Tracheostomy is midline. LUNGS: Coarse breath sounds. moderate; no wheeze CARDIAC: S1, S2. regular rate and rhythm without murmurs. ABDOMEN: Soft. G-tube in place. no distention EXTREMITIES: With contractures. No edema. no CC SKIN: Multiple pressure ulcers noted. Neuro poorly responsive Micro: Microbiology Date/Time Source Procedure Growth Status 04/04/20 15:42 Sputum Gram Stain - Final Resulted 04/04/20 15:42 Sputum Culture - Preliminary K.pneumoniae Carbapenem Resist Escherichia Coli Resulted 04/04/20 08:00 Rectum VRE Culture - Final Enterococcus Faecalis - Vre Enterococcus Faecium - Vre Complete 04/04/20 08:00 Rectum Received 04/04/20 08:00 Nasal Nares Left MRSA Culture - Final NO METHICILLIN RESISTANT STAPH AUREUS... Complete 04/04/20 07:50 Blood Blood Culture - Preliminary Gram Positive Cocci Resulted 04/04/20 07:50 Blood Blood Culture - Preliminary Gram Positive Cocci Resulted 04/04/20 07:23 Nasopharynx SARS-CoV-2 RdRp Gene Assay - Final Complete Mansoor Martinez MD Apr 06, 2020 08:54
--- NOTE | 2020-04-06 10:00 | NUR ---
NURSE NOTES: repositioned patient for comfort. suctioned patient. tolerating vent settings. vitals stable to baseline.
--- NOTE | 2020-04-06 11:10 | NUR ---
NURSE NOTES: Report received from Aaron Taylor RN. Patient is sleeping. Afebrile. Opens eyes to light tactile stimuli. Non-verbal. Unable to follow commands. Upper and lower extremities contracture noted. SR on diagnostic cardiac sonographer. Trach to vent P 8, AC 26, TV 450, P 5, FiO2 30%, O2 sat 100%. RR 30's. Moderate amount of clear yellow thick secretion from trach site and mouth noted. Oral care and suction done. GT in place receiving Vital AF 1/2 at 50cc/hr. No residual noted. Condom cath in place draining to gravity. HAIDER PICC line patent and asymptomatic. 1/2NS with 20meq KCL is running at 150cc/hr. Bed in lowest position. Side rails up x3. Will resume plan of care.
--- NOTE | 2020-04-06 13:36 | Infectious Diseases Prog Note ---
Assessment/Plan Assessment/Plan A 1. pneumonia with E.coli & KPC COVID 19 test negative 2. respiratory failure 3. leucocytosis resolved 4. hypertension 5. renal failure 6. CHF 7. Bacteremia P 1. continue Zosyn & Linezolid 2. Add Colistin inhaler 3. will follow up cultures Subjective ROS Limited/Unobtainable: Yes Constitutional: Denies: fever Allergies: Coded Allergies: No Known Allergies (Unverified , 02/23/12) Objective Last 24 Hour Vital Signs Date Time Temp Pulse Resp B/P (MAP) Pulse Ox O2 Delivery O2 Flow Rate FiO2 04/06/20 12:00 Mechanical Ventilator 04/06/20 12:00 66 20 134/81 (98) 100 04/06/20 12:00 69 04/06/20 11:20 61 32 30 04/06/20 11:10 Mechanical Ventilator 04/06/20 11:00 62 28 130/89 (103) 100 04/06/20 10:00 57 27 133/77 (95) 100 04/06/20 09:00 61 29 134/86 (102) 97 04/06/20 08:00 68 04/06/20 08:00 98.2 65 25 132/83 (99) 100 04/06/20 08:00 Mechanical Ventilator 04/06/20 07:49 66 33 30 04/06/20 07:00 69 26 132/70 (90) 100 04/06/20 06:00 62 27 136/64 (88) 100 04/06/20 05:00 66 28 115/73 (87) 100 04/06/20 04:09 105 38 100 Mechanical Ventilator 30 108 35 30 04/06/20 04:00 98.1 96 29 120/79 (93) 98 04/06/20 04:00 105 04/06/20 04:00 Mechanical Ventilator 04/06/20 03:20 62 29 30 04/06/20 03:00 76 27 144/118 (127) 100 04/06/20 02:00 69 31 130/81 (97) 99 04/06/20 01:00 69 29 119/82 (94) 100 04/06/20 00:00 97.9 63 19 112/65 (81) 100 04/06/20 00:00 66 04/06/20 00:00 Mechanical Ventilator 10/7/20 23:02 60 30 30 04/05/20 23:00 61 28 128/60 (82) 100 04/05/20 22:00 63 30 125/79 (94) 100 04/05/20 21:00 62 28 126/87 (100) 100 04/05/20 20:00 62 04/05/20 20:00 98.2 62 28 117/75 (89) 100 04/05/20 20:00 Mechanical Ventilator 04/05/20 19:25 71 33 30 04/05/20 19:00 63 26 116/81 (93) 99 04/05/20 18:00 68 24 132/88 (103) 99 04/05/20 17:00 63 28 128/75 (92) 100 04/05/20 16:00 98.0 65 32 131/75 (93) 100 04/05/20 16:00 Mechanical Ventilator 04/05/20 16:00 110/81 04/05/20 16:00 65 04/05/20 15:20 67 28 30 04/05/20 15:00 61 30 126/73 (90) 100 04/05/20 14:00 61 32 109/68 (82) 99 Height (Feet): 5 Height (Inches): 4.00 Weight (Pounds): 139 HEENT: status post trach Respiratory/Chest: rhonchi - bilaterally, other - on ventilator Cardiovascular: normal rate, other - R arm PICC line Abdomen: soft, non tender, other - GT feeding Extremities: other - generalozed edema Neurologic/Psychiatric: aphasia, other - opens eyes Microbiology Date/Time Source Procedure Growth Status 04/04/20 15:42 Sputum Gram Stain - Final Resulted 04/04/20 15:42 Sputum Culture - Preliminary K.pneumoniae Carbapenem Resist Escherichia Coli Resulted 04/04/20 08:00 Rectum VRE Culture - Final Enterococcus Faecalis - Vre Enterococcus Faecium - Vre Complete 04/04/20 08:00 Rectum Received 04/04/20 08:00 Nasal Nares Left MRSA Culture - Final NO METHICILLIN RESISTANT STAPH AUREUS... Complete 04/04/20 07:50 Blood Blood Culture - Preliminary Gram Positive Cocci Resulted 04/04/20 07:50 Blood Blood Culture - Preliminary Gram Positive Cocci Resulted 04/04/20 07:23 Nasopharynx SARS-CoV-2 RdRp Gene Assay - Final Complete Laboratory Tests Test 04/06/20 04:00 White Blood Count 9.8 K/UL (4.8-10.8) Red Blood Count 2.74 M/UL (4.70-6.10) L Hemoglobin 8.5 G/DL (14.2-18.0) L Hematocrit 24.9 % (42.0-52.0) L Mean Corpuscular Volume 91 FL (80-99) Mean Corpuscular Hemoglobin 31.2 PG (27.0-31.0) H Mean Corpuscular Hemoglobin Concent 34.4 G/DL (32.0-36.0) Red Cell Distribution Width 18.2 % (11.6-14.8) H Platelet Count 213 K/UL (150-450) Mean Platelet Volume 6.1 FL (6.5-10.1) L Neutrophils (%) (Auto) 75.2 % (45.0-75.0) H Lymphocytes (%) (Auto) 12.2 % (20.0-45.0) L Monocytes (%) (Auto) 4.4 % (1.0-10.0) Eosinophils (%) (Auto) 7.6 % (0.0-3.0) H Basophils (%) (Auto) 0.6 % (0.0-2.0) Erythrocyte Sedimentation Rate 103 MM/HR (0-20) H Prothrombin Time 12.7 SEC (9.30-11.50) H Prothromb Time International Ratio 1.2 (0.9-1.1) H Activated Partial Thromboplast Time 35 SEC (23-33) H Sodium Level 135 MMOL/L (136-145) L Potassium Level 3.6 MMOL/L (3.5-5.1) Chloride Level 103 MMOL/L (98-107) Carbon Dioxide Level 24 MMOL/L (21-32) Anion Gap 8 mmol/L (5-15) Blood Urea Nitrogen 65 mg/dL (7-18) H Creatinine 2.3 MG/DL (0.55-1.30) H Estimat Glomerular Filtration Rate 27.6 mL/min (>60) Glucose Level 100 MG/DL (74-106) Calcium Level 7.7 MG/DL (8.5-10.1) L Total Bilirubin 0.3 MG/DL (0.2-1.0) Aspartate Amino Transf (AST/SGOT) 36 U/L (15-37) Alanine Aminotransferase (ALT/SGPT) 17 U/L (12-78) Alkaline Phosphatase 117 U/L (46-116) H C-Reactive Protein, Quantitative 8.2 mg/dL (0.00-0.90) H Total Protein 6.1 G/DL (6.4-8.2) L Albumin 1.2 G/DL (3.4-5.0) L Globulin 4.9 g/dL Albumin/Globulin Ratio 0.2 (1.0-2.7) L Lipase 92 U/L (73-393) Current Medications Medications (Trade) Dose Ordered Sig/Lanny Route PRN Reason Start Time Stop Time Status Last Admin Dose Admin Acetaminophen (Tylenol) 650 mg Q4H PRN ORAL FEVER 04/04/20 13:30 05/04/20 13:29 Albuterol/ Ipratropium (Albuterol/ Ipratropium) 3 ml Q6H PRN HHN Shortness of Breath 04/04/20 13:30 04/09/20 13:29 04/06/20 04:19 Chlorhexidine Gluconate (Kayla-Hex 2%) 1 applic DAILY@2000 TOPIC 04/04/20 20:00 07/03/20 19:59 04/05/20 20:35 Dextrose (Dextrose 50%) 25 ml Q30M PRN IV Hypoglycemia 04/04/20 13:30 07/03/20 13:29 Dextrose (Dextrose 50%) 50 ml Q30M PRN IV Hypoglycemia 04/04/20 13:30 07/03/20 13:29 Dopamine HCl/ Dextrose 250 ml @ 0 mls/hr Q24H IV 04/04/20 16:09 04/07/20 16:08 04/04/20 16:59 Epoetin Asaf (Epoetin Asaf-EPBX(NON ESRD)) 8,000 unit FRI-FRI-FRI SUBQ 04/05/20 21:00 07/04/20 20:59 04/05/20 20:51 Heparin Sodium (Porcine) (Heparin 5000 units/ml) 5,000 units EVERY 12 HOURS SUBQ 04/04/20 21:00 05/19/20 20:59 04/06/20 07:58 Heparin Sodium/ Sodium Chloride (Heparin 1000 units/500ml Premix) 1,000 unit ONCE PRN IV PICC LINE PLACEMENT 04/04/20 19:45 04/07/20 19:44 Levetiracetam (Keppra) 500 mg Q12HR GT 04/06/20 09:00 05/06/20 08:59 04/06/20 08:40 Levothyroxine Sodium (Synthroid) 50 mcg DAILY@0630 IV 04/06/20 06:30 05/06/20 06:29 04/06/20 07:57 Lidocaine HCl (Xylocaine 1% 30ml) 30 ml ONCE PRN INJ PICC LINE PLACEMENT 04/04/20 19:45 04/07/20 19:44 Linezolid 300 ml @ 300 mls/hr Q12HR IVPB 04/05/20 21:00 04/12/20 20:59 04/06/20 07:57 Lorazepam (Ativan 2mg/ml 1ml) 1 mg Q3H PRN IV For Anxiety 04/06/20 06:15 04/13/20 06:14 Piperacillin Sod/ Tazobactam Sod 3.375 gm/Sodium Chloride 110 ml @ 27.5 mls/hr Q8HR IVPB 04/04/20 14:00 04/11/20 13:59 04/06/20 05:41 Sodium 1,000 ml @ 150 mls/hr Q6H40M IV 04/04/20 15:00 05/04/20 14:59 04/06/20 07:57 Janes Dumas MD Apr 06, 2020 13:36
--- NOTE | 2020-04-06 13:50 | NUR ---
NURSE NOTES: Moderate amount of yellow white thick secretion from trach site and mouth noted. Oral care and suction done. Turned and repositioned patient. Will continue to monitor.
[2020-04-06] MEDS: DOPamine 400mg/250ml 250 ML IV SCH (15:54)
--- NOTE | 2020-04-06 16:00 | NUR ---
NURSE NOTES: Cleaned patient for 1 brown loose BM. Applied new condom catheter. Trach collar dressing changed. Turned and repositioned patient.
--- NOTE | 2020-04-06 16:16 | Surgery Progress Note ---
Surgery Progress Note Subjective Additional Comments ill appearing no n/v labs noted exam stable Objective Last 24 Hour Vital Signs Date Time Temp Pulse Resp B/P (MAP) Pulse Ox O2 Delivery O2 Flow Rate FiO2 04/06/20 15:54 90 36 30 04/06/20 15:00 80 28 146/85 (105) 100 04/06/20 14:00 61 26 145/80 (101) 100 04/06/20 13:00 98.0 70 28 142/81 (101) 100 04/06/20 12:00 Mechanical Ventilator 04/06/20 12:00 66 20 134/81 (98) 100 04/06/20 12:00 69 04/06/20 11:20 61 32 30 04/06/20 11:10 Mechanical Ventilator 04/06/20 11:00 62 28 130/89 (103) 100 04/06/20 10:00 57 27 133/77 (95) 100 04/06/20 09:00 61 29 134/86 (102) 97 04/06/20 08:00 68 04/06/20 08:00 98.2 65 25 132/83 (99) 100 04/06/20 08:00 Mechanical Ventilator 04/06/20 07:49 66 33 30 04/06/20 07:00 69 26 132/70 (90) 100 04/06/20 06:00 62 27 136/64 (88) 100 04/06/20 05:00 66 28 115/73 (87) 100 04/06/20 04:09 105 38 100 Mechanical Ventilator 30 108 35 30 04/06/20 04:00 98.1 96 29 120/79 (93) 98 04/06/20 04:00 105 04/06/20 04:00 Mechanical Ventilator 04/06/20 03:20 62 29 30 04/06/20 03:00 76 27 144/118 (127) 100 04/06/20 02:00 69 31 130/81 (97) 99 04/06/20 01:00 69 29 119/82 (94) 100 04/06/20 00:00 97.9 63 19 112/65 (81) 100 04/06/20 00:00 66 04/06/20 00:00 Mechanical Ventilator 04/05/20 23:02 60 30 30 04/05/20 23:00 61 28 128/60 (82) 100 04/05/20 22:00 63 30 125/79 (94) 100 04/05/20 21:00 62 28 126/87 (100) 100 04/05/20 20:00 62 04/05/20 20:00 98.2 62 28 117/75 (89) 100 04/05/20 20:00 Mechanical Ventilator 04/05/20 19:25 71 33 30 04/05/20 19:00 63 26 116/81 (93) 99 04/05/20 18:00 68 24 132/88 (103) 99 04/05/20 17:00 63 28 128/75 (92) 100 I&O Intake and Output 04/05/20 04/06/20 19:00 07:00 Intake Total 1997.5 ml 2587.5 ml Output Total 335 ml 250 ml Balance 1662.5 ml 2337.5 ml Intake Free Water 160 ml IV Total 1317.5 ml 1827.5 ml Tube Feeding 680 ml 600 ml Output Urine Total 335 ml 250 ml # Voids 20 # Bowel Movements 3 1 Dressing: other Wound: other Cardiovascular: RSR Respiratory: decreased breath sounds Abdomen: soft, non-tender, present bowel sounds Extremities: no tenderness, no cyanosis Laboratory Tests Test 04/06/20 04:00 White Blood Count 9.8 K/UL (4.8-10.8) Red Blood Count 2.74 M/UL (4.70-6.10) L Hemoglobin 8.5 G/DL (14.2-18.0) L Hematocrit 24.9 % (42.0-52.0) L Mean Corpuscular Volume 91 FL (80-99) Mean Corpuscular Hemoglobin 31.2 PG (27.0-31.0) H Mean Corpuscular Hemoglobin Concent 34.4 G/DL (32.0-36.0) Red Cell Distribution Width 18.2 % (11.6-14.8) H Platelet Count 213 K/UL (150-450) Mean Platelet Volume 6.1 FL (6.5-10.1) L Neutrophils (%) (Auto) 75.2 % (45.0-75.0) H Lymphocytes (%) (Auto) 12.2 % (20.0-45.0) L Monocytes (%) (Auto) 4.4 % (1.0-10.0) Eosinophils (%) (Auto) 7.6 % (0.0-3.0) H Basophils (%) (Auto) 0.6 % (0.0-2.0) Erythrocyte Sedimentation Rate 103 MM/HR (0-20) H Prothrombin Time 12.7 SEC (9.30-11.50) H Prothromb Time International Ratio 1.2 (0.9-1.1) H Activated Partial Thromboplast Time 35 SEC (23-33) H Sodium Level 135 MMOL/L (136-145) L Potassium Level 3.6 MMOL/L (3.5-5.1) Chloride Level 103 MMOL/L (98-107) Carbon Dioxide Level 24 MMOL/L (21-32) Anion Gap 8 mmol/L (5-15) Blood Urea Nitrogen 65 mg/dL (7-18) H Creatinine 2.3 MG/DL (0.55-1.30) H Estimat Glomerular Filtration Rate 27.6 mL/min (>60) Glucose Level 100 MG/DL (74-106) Calcium Level 7.7 MG/DL (8.5-10.1) L Total Bilirubin 0.3 MG/DL (0.2-1.0) Aspartate Amino Transf (AST/SGOT) 36 U/L (15-37) Alanine Aminotransferase (ALT/SGPT) 17 U/L (12-78) Alkaline Phosphatase 117 U/L (46-116) H C-Reactive Protein, Quantitative 8.2 mg/dL (0.00-0.90) H Total Protein 6.1 G/DL (6.4-8.2) L Albumin 1.2 G/DL (3.4-5.0) L Globulin 4.9 g/dL Albumin/Globulin Ratio 0.2 (1.0-2.7) L Lipase 92 U/L (73-393) Plan Problems: (1) Aspiration pneumonia (2) Respiratory failure (3) ARF (acute renal failure) (4) GIB (gastrointestinal bleeding) (5) Dehydration (6) Hypokalemia (7) Hyperkalemia (8) Hypomagnesemia (9) Anemia (10) Decubitus skin ulcer Assessment & Plan: Pt presented on admission with gross contractures, Multiple Pressure Injuries, Tracheostomy. Skin Assessed under tracheal collar and no evidence of skin breakdown noted. Tear noted to urinary meatus- no exudate noted. Scrotum is erythematous with scattered satellite lesions. Large ulcer noted to R scrotal sac (L)4cm x (W)4.6cm. Base of wound is erythematous ,moist with Biofilm. Sacral DTPI with clusters of small islands of slough with surrounding maroon and indurated areas (L)8cm x (W)12cm.Mild Odor noted. Partial thickness Pressure Injury Upper/outer R buttocks(L)1.8cm x (W)1.3cm. Base of wound is moist and viable. Edges adherent to base of wound. Surrounding non-blanching erythema with scattered areas of shearing noted. Partial thickness Pressure Inferior lower R buttocks.(L)0.8cm x (W)1.2cm. Base of wound is moist and viable. Edges adherent to base of wound. Surrounding non- blanching erythema with scattered shearing noted extending into R ischial tuberosity. Clusters of small hyperpigmentation noted to L trochanteric and L ischial tuberosity. R Heel is fluctuant with scattered dry eschar and surrounding Non-Blanchable erythema.(L)6.5cm x (W)8cm. DTPI distal/lateral R foot(L)3cm x (W)3cm. Base of wound is maroon and fluctuant. dry eschar noted to tip of R 1st metatarsal with surrounding non-blanchable e rythema extending dorsally and laterally of metatarsal(L)5cm x (W)1.3cm Non-Blanchable erythema that is fluctuant at base noted to dorso/lateral L 5th metatarsal(L)0.6cm x (W)0.3cm. L Heel is boggy with non-blanchable erythema laterally. Hyperpigmentation from previous wound noted at L heel. Tx.Plan: Cleanse Sacral wound with Saline. Apply TheraHoney to slough. Apply Moisture Ba rrier Paste periwound. Cover with Optifoam drsg. Change daily and prn. Apply Moisture Barrier Paste to Wounds R upper and lower R Buttocks. Cover each wound with Optifoam drsg. Change every 3 days and prn. Apply Zinc Oxide Paste to Scrotal Wounds TID and prn. Apply Betadine to wounds R heel and R foot . Cover with ABD Pads and wrap with Kerlix every 3 days and prn. Apply Betadine to L foot. Cover with ABD Pads and wrap with Kerlix every 3 days and prn. Cover Bony Prominences as needed with Optifoam drsgs. Reposition at least every 2hours or as tolerated. Off-load heels with pillow. 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 CURRENT TF: Nepro@45ml/hr x20 hrs ENTERAL NUTRITION RECOMMENDATIONS: Vital AF 1.2 @ 50ml/hr x 24 hrs to provide 1200ml, 1440kcal, 90g prot, 973ml free water - W/ consistently low lytes, rec TF change to Vital AF 1.2 for critical care - Start Vital AF 1.2 @30ml/hr for 6 hrs, advance as tolerated 10ml/hr q4-6 hrs to goal. - Flush per , SHAW over 30 degrees ADDITIONAL RECOMMENDATIONS: 1) Calibrated bed scale wts as able-> now w/ added P200 mattress 2) Monitor renal labs and lytes 3) Wound care: When tolerating TF at goal add WILIAM BID -> rec WC eval 4) Monitor hemodynamic stability, dopamine on hold (26) AUDREY (acute kidney injury) (27) HCAP (healthcare-associated pneumonia) (28) Suspected COVID-19 virus infection (29) Colon distention Assessment & Plan: colonic distention abd mild distended tube in place ilius chronic Groundglass infiltrates noted in the right lung base. There is a denser consolidation in the posterior left lower lobe with air bronchogram. Some dependent atelectasis or infiltrates also noted posterior right lung base. Bilateral small pleural effusions noted. Images through upper abdomen degraded by streak artifact from the patient's arm position. The liver and spleen are grossly homogeneous to the extent visualized. Gallbladder is not visualized. Surgical clips in the gallbladder fossa. The pancreas is unremarkable. Adrenals are normal in morphology. There appears to be a low- density cyst in the lower pole of the left kidney. No hydronephrosis seen bilaterally. There is a G-tube in place. Small bowel loops are nondistended. There is gaseous distention of the colon. Sigmoid diverticulosis noted without sign of acute diverticulitis. The appendix is not visualized. There is a small amount of ascites in the lower abdomen/pelvis. No free air identified. No pathologic adenopathy demonstrated. Mild diffuse wall thickening of the urinary bladder noted. Question underlying cystitis. There appears to be an old fracture of the left femoral head/neck. The shaft is displaced superolaterally. There is old superior endplate depression of L1. IMPRESSION: BIBASILAR AIRSPACE DISEASE IN BOTH LUNG BASES INCLUDING RIGHT BASILAR GROUNDGLASS INFILTRATES AND DENSER CONSOLIDATION WITH AIR BRONCHOGRAMS IN THE LEFT LOWER LOBE. BILATERAL SMALL EFFUSIONS. G-TUBE IN PLACE. GASEOUS DISTENTION OF THE COLON. DIVERTICULOSIS NOTED WITHOUT SIGN OF ACUTE DIVERTICULITIS. SMALL AMOUNT OF ASCITES IN THE LOWER ABDOMEN/PELVIS. WALL THICKENING OF THE URINARY BLADDER. QUESTION UNDERLYING CYSTITIS. FRACTURE OF THE LEFT FEMORAL HEAD/NECK WHICH APPEARS OLD. LEFT FEMORAL SHAFT DISPLACED SUPEROLATERALLY. OLD SUPERIOR ENDPLATE DEPRESSION OF L1. Rehan Geronimo Apr 06, 2020 16:16
--- NOTE | 2020-04-06 16:18 | Nephrology Progress Note ---
Assessment/Plan Plan Sepsis - IV Abx Hypokalemia corrected Hypomagnesemia - corrected CKD - Stable Subjective Subjective Obtunded Objective Objective Last 24 Hour Vital Signs Date Time Temp Pulse Resp B/P (MAP) Pulse Ox O2 Delivery O2 Flow Rate FiO2 04/06/20 15:54 90 36 30 04/06/20 15:00 80 28 146/85 (105) 100 04/06/20 14:00 61 26 145/80 (101) 100 04/06/20 13:00 98.0 70 28 142/81 (101) 100 04/06/20 12:00 Mechanical Ventilator 04/06/20 12:00 66 20 134/81 (98) 100 04/06/20 12:00 69 04/06/20 11:20 61 32 30 04/06/20 11:10 Mechanical Ventilator 04/06/20 11:00 62 28 130/89 (103) 100 04/06/20 10:00 57 27 133/77 (95) 100 04/06/20 09:00 61 29 134/86 (102) 97 04/06/20 08:00 68 04/06/20 08:00 98.2 65 25 132/83 (99) 100 04/06/20 08:00 Mechanical Ventilator 04/06/20 07:49 66 33 30 04/06/20 07:00 69 26 132/70 (90) 100 04/06/20 06:00 62 27 136/64 (88) 100 04/06/20 05:00 66 28 115/73 (87) 100 04/06/20 04:09 105 38 100 Mechanical Ventilator 30 108 35 30 04/06/20 04:00 98.1 96 29 120/79 (93) 98 04/06/20 04:00 105 04/06/20 04:00 Mechanical Ventilator 04/06/20 03:20 62 29 30 04/06/20 03:00 76 27 144/118 (127) 100 04/06/20 02:00 69 31 130/81 (97) 99 04/06/20 01:00 69 29 119/82 (94) 100 04/06/20 00:00 97.9 63 19 112/65 (81) 100 04/06/20 00:00 66 04/06/20 00:00 Mechanical Ventilator 04/05/20 23:02 60 30 30 04/05/20 23:00 61 28 128/60 (82) 100 04/05/20 22:00 63 30 125/79 (94) 100 04/05/20 21:00 62 28 126/87 (100) 100 04/05/20 20:00 62 04/05/20 20:00 98.2 62 28 117/75 (89) 100 04/05/20 20:00 Mechanical Ventilator 04/05/20 19:25 71 33 30 04/05/20 19:00 63 26 116/81 (93) 99 04/05/20 18:00 68 24 132/88 (103) 99 04/05/20 17:00 63 28 128/75 (92) 100 Intake and Output 04/05/20 04/06/20 19:00 07:00 Intake Total 1997.5 ml 2587.5 ml Output Total 335 ml 250 ml Balance 1662.5 ml 2337.5 ml Intake Free Water 160 ml IV Total 1317.5 ml 1827.5 ml Tube Feeding 680 ml 600 ml Output Urine Total 335 ml 250 ml # Voids 20 # Bowel Movements 3 1 Laboratory Tests 04/06/20 04:00: White Blood Count 9.8, Red Blood Count 2.74L, Hemoglobin 8.5L, Hematocrit 24.9L, Mean Corpuscular Volume 91, Mean Corpuscular Hemoglobin 31.2H, Mean Corpuscular Hemoglobin Concent 34.4, Red Cell Distribution Width 18.2H, Platelet Count 213, Mean Platelet Volume 6.1L, Neutrophils (%) (Auto) 75.2H, Lymphocytes (%) (Auto) 12.2L, Monocytes (%) (Auto) 4.4, Eosinophils (%) (Auto) 7.6H, Basophils (%) (Auto) 0.6, Erythrocyte Sedimentation Rate 103H, Prothrombin Time 12.7H, Prothromb Time International Ratio 1.2H, Activated Partial Thromboplast Time 35H , Sodium Level 135L, Potassium Level 3.6, Chloride Level 103, Carbon Dioxide Level 24, Anion Gap 8, Blood Urea Nitrogen 65H, Creatinine 2.3H, Estimat Glomerular Filtration Rate 27.6, Glucose Level 100, Calcium Level 7.7L, Total Bilirubin 0.3, Aspartate Amino Transf (AST/SGOT) 36, Alanine Aminotransferase (ALT/SGPT) 17, Alkaline Phosphatase 117H, C-Reactive Protein, Quantitative 8.2H, Total Protein 6.1L, Albumin 1.2L, Globulin 4.9, Albumin/Globulin Ratio 0.2L, Lipase 92 Height (Feet): 5 Height (Inches): 4.00 Weight (Pounds): 139 Objective Obtunded. On Vent Trach clean Lungs B Miriam Bianchi SNT. BS + E [employer] Ayanna Maldonado MD Apr 06, 2020 16:18
--- NOTE | 2020-04-06 18:55 | NUR ---
TRANSFER TO FLOOR: Patient transferred to [facility]. Report given to MERLENE Alvarez. No belongings. Mmedications given to MERLENE Alvarez. Will informed next of kin of transfer.
--- NOTE | 2020-04-06 19:30 | NUR ---
NURSE NOTES: Patient received from Kaylynn BLUNT. Patient is obtunded and trached dependent with a settings of AC 26/450tv/30%/+5, Portex 8, GT with Vital AF at 50ml/hr, [place] catheter noted, draining via gravity. HAIDER PICC DL-patent; 1/6EI=607rb/hr, skin alterations noted-p200, seizures precautions-side rails padded. Bed alarm engaged, locked, and in lowest position.
--- NOTE | 2020-04-06 20:30 | NUR ---
NURSE NOTES: Patient assessment performed; patient given oral care and suctioned, patient noted to have an abundant amount of oral secretions-thick and white/yellowish in color. Patient is in a semi-fowlers position >30 degree angle. Central line dressing changed using aseptic technique. Blood pressures within normotensive ranges, NSR on the monitor, pulses present. Patient was given CHG bath and [place] care was performed. Aspiration, fall, skin and seizure precautions observed.
[2020-04-06] MEDS: Dyna-Hex 2% Top Sol 2oz TOPIC SCH (20:38)
[2020-04-06] MEDS ORDERED: NS 275ml ONE (20:56)
[2020-04-06] MEDS ORDERED: Tubing IV Secondary IV ONE (20:56)
--- NOTE | 2020-04-06 22:30 | NUR ---
NURSE NOTES: Patient assessment performed; patient was lavage as patient is noted to have a lot of oral and deep secretions-oral care is being performed constantly. Patient repositioned and kept high semi-fowlers position for aspiration precautions. NSR on the monitor-pulses present; SpO2 99%, cool to touch-afebrile. Patient remains clean and dry.
[2020-04-06] MEDS: Colistin for inhalation INH SCH (23:37)
[2020-04-07] VITALS: BP 133/65
--- NOTE | 2020-04-07 00:25 | NUR ---
NURSE NOTES: Patient assessment performed; vitals remains stable, afebrile, NSR on the monitor, pulses present, SpO2 100%, tolerating vent settings well. Oral care and suctioning performed, thick secretions continues.
--- NOTE | 2020-04-07 01:26 | Cardiology Progress Note ---
Subjective Remains in ICU with critical condition & guarded prognosis. Sputum culture with KPCr and EColi TSH is over 63; IV throid repl started 04/05. Blood cultures positive for gm+ cocci Objective Last 24 Hour Vital Signs Date Time Temp Pulse Resp B/P (MAP) Pulse Ox O2 Delivery O2 Flow Rate FiO2 04/07/20 00:00 72 04/07/20 00:00 30 04/07/20 00:00 98.8 67 25 133/65 (87) 100 04/07/20 00:00 Mechanical Ventilator 04/06/20 23:38 66 27 100 Mechanical Ventilator 30 69 28 30 04/06/20 21:07 66 20 125/80 100 04/06/20 20:37 96 32 123/75 96 04/06/20 20:00 Mechanical Ventilator 04/06/20 20:00 98.5 63 26 130/60 (83) 99 04/06/20 20:00 30 04/06/20 19:54 68 26 30 04/06/20 19:32 66 04/06/20 18:00 98.2 82 36 151/91 (111) 100 04/06/20 17:00 75 30 133/85 (101) 100 04/06/20 16:00 71 31 130/86 (101) 100 04/06/20 16:00 60 04/06/20 16:00 Mechanical Ventilator 04/06/20 16:00 30 04/06/20 15:54 90 36 30 04/06/20 15:00 80 28 146/85 (105) 100 04/06/20 14:00 61 26 145/80 (101) 100 04/06/20 13:00 98.0 70 28 142/81 (101) 100 04/06/20 12:00 Mechanical Ventilator 04/06/20 12:00 66 20 134/81 (98) 100 04/06/20 12:00 69 04/06/20 11:20 61 32 30 04/06/20 11:10 Mechanical Ventilator 04/06/20 11:00 62 28 130/89 (103) 100 04/06/20 10:00 57 27 133/77 (95) 100 04/06/20 09:00 61 29 134/86 (102) 97 04/06/20 08:00 68 04/06/20 08:00 98.2 65 25 132/83 (99) 100 04/06/20 08:00 Mechanical Ventilator 04/06/20 07:49 66 33 30 04/06/20 07:00 69 26 132/70 (90) 100 04/06/20 06:00 62 27 136/64 (88) 100 04/06/20 05:00 66 28 115/73 (87) 100 04/06/20 04:09 105 38 100 Mechanical Ventilator 30 108 35 30 04/06/20 04:00 98.1 96 29 120/79 (93) 98 04/06/20 04:00 105 04/06/20 04:00 Mechanical Ventilator 04/06/20 03:20 62 29 30 04/06/20 03:00 76 27 144/118 (127) 100 04/06/20 02:00 69 31 130/81 (97) 99 HEENT: Thick Trach secretions RHYTHM: NSR, other - PAFib LUNGS: bilateral rhonchi, trach site clean CARDIAC: normal rate, regular rhythm, normal S1 and S2 ABDOMEN: non tender, soft, G-Tube intact EXTREMITIES: no calf tenderness, no swelling Laboratory Tests Test 04/06/20 04:00 White Blood Count 9.8 K/UL (4.8-10.8) Red Blood Count 2.74 M/UL (4.70-6.10) L Hemoglobin 8.5 G/DL (14.2-18.0) L Hematocrit 24.9 % (42.0-52.0) L Mean Corpuscular Volume 91 FL (80-99) Mean Corpuscular Hemoglobin 31.2 PG (27.0-31.0) H Mean Corpuscular Hemoglobin Concent 34.4 G/DL (32.0-36.0) Red Cell Distribution Width 18.2 % (11.6-14.8) H Platelet Count 213 K/UL (150-450) Mean Platelet Volume 6.1 FL (6.5-10.1) L Neutrophils (%) (Auto) 75.2 % (45.0-75.0) H Lymphocytes (%) (Auto) 12.2 % (20.0-45.0) L Monocytes (%) (Auto) 4.4 % (1.0-10.0) Eosinophils (%) (Auto) 7.6 % (0.0-3.0) H Basophils (%) (Auto) 0.6 % (0.0-2.0) Erythrocyte Sedimentation Rate 103 MM/HR (0-20) H Prothrombin Time 12.7 SEC (9.30-11.50) H Prothromb Time International Ratio 1.2 (0.9-1.1) H Activated Partial Thromboplast Time 35 SEC (23-33) H Sodium Level 135 MMOL/L (136-145) L Potassium Level 3.6 MMOL/L (3.5-5.1) Chloride Level 103 MMOL/L (98-107) Carbon Dioxide Level 24 MMOL/L (21-32) Anion Gap 8 mmol/L (5-15) Blood Urea Nitrogen 65 mg/dL (7-18) H Creatinine 2.3 MG/DL (0.55-1.30) H Estimat Glomerular Filtration Rate 27.6 mL/min (>60) Glucose Level 100 MG/DL (74-106) Calcium Level 7.7 MG/DL (8.5-10.1) L Total Bilirubin 0.3 MG/DL (0.2-1.0) Aspartate Amino Transf (AST/SGOT) 36 U/L (15-37) Alanine Aminotransferase (ALT/SGPT) 17 U/L (12-78) Alkaline Phosphatase 117 U/L (46-116) H C-Reactive Protein, Quantitative 8.2 mg/dL (0.00-0.90) H Total Protein 6.1 G/DL (6.4-8.2) L Albumin 1.2 G/DL (3.4-5.0) L Globulin 4.9 g/dL Albumin/Globulin Ratio 0.2 (1.0-2.7) L Lipase 92 U/L (73-393) Microbiology Date/Time Source Procedure Growth Status 04/04/20 15:42 Sputum Gram Stain - Final Resulted 04/04/20 15:42 Sputum Culture - Preliminary K.pneumoniae Carbapenem Resist Escherichia Coli Resulted 04/04/20 08:00 Rectum VRE Culture - Final Enterococcus Faecalis - Vre Enterococcus Faecium - Vre Complete 04/04/20 08:00 Rectum Received 04/04/20 08:00 Nasal Nares Left MRSA Culture - Final NO METHICILLIN RESISTANT STAPH AUREUS... Complete 04/04/20 07:50 Blood Blood Culture - Preliminary Gram Positive Cocci Resulted 04/04/20 07:50 Blood Blood Culture - Preliminary Gram Positive Cocci Resulted 04/04/20 07:23 Nasopharynx SARS-CoV-2 RdRp Gene Assay - Final Complete Assessment/Plan Assessment/Plan Sepsis Shock Gram positive bacteremia with increased risk for endocarditis HC associated gram negative PNA Anemia Hypothyroidism Vent-dep respiratory failure PAFib with episodes of RVR Chronic diastolic CHF Acute myocardial ischemia Hypokalemia Severe protein/calorie malnutrition Tapered off pressors Abx per ID Vent support Resp Rx DVT prophyl IV thyroid replacement Replace lytes/Mg++ Titrate cardiovascular regimen 2D Echo F/U cultures Franko Pineda MD Apr 07, 2020 01:26
--- NOTE | 2020-04-07 02:00 | NUR ---
NURSE NOTES: Patient repositioned, suctioned and oral care performed, patient has alot of oral and deep secretions, very thick and tenacious. Tolerating feeds, residuals of 30ml. Vitals stable, afebrile
[2020-04-07 04:00] VITALS: BP 130/60
[2020-04-07] MEDS: 1/2NS w/KCl 20mEq 1000ml 1,000 ML IV SCH ×3 (04:00→18:28)
--- NOTE | 2020-04-07 04:00 | NUR ---
NURSE NOTES: Sponge bath given, blood drawn and sent to lab, patient has soft BM, patient cleaned, new linen applied. NAD at this time. Will continue to monitor.
[2020-04-07 04:34] LABS: CALCIUM 7.3 MG/DL (8.5-10.1); CREATININE 2.1 MG/DL (0.55-1.30)
[2020-04-07 04:58] LABS: EOSINOPHILS % (AUTO) 11.3 % (0.0-3.0); HEMATOCRIT 24.8 % (42.0-52.0); HEMOGLOBIN 8.6 G/DL (14.2-18.0); LYMPHOCYTES % (AUTO) 15.1 % (20.0-45.0); MEAN CORPUSCULAR VOLUME 91 FL (80-99); MONOCYTES % (AUTO) 5.7 % (1.0-10.0); NEUTROPHILS % (AUTO) 66.8 % (45.0-75.0); PLATELET COUNT 224 K/UL (150-450); RED BLOOD COUNT 2.74 M/UL (4.70-6.10); WHITE BLOOD COUNT 9.9 K/UL (4.8-10.8)
[2020-04-07] MEDS: Piperacillin/Tazobactam 3.375 GM in NS 110 ML IVPB SCH ×3 (06:00→21:23)
--- NOTE | 2020-04-07 06:00 | NUR ---
NURSE NOTES: Patient repositioned and given oral care. Vitals stable, afebrile, heels offloaded, SpO2 100%, NAD. PICC line dressing intact, patent.
--- NOTE | 2020-04-07 07:17 | NUR ---
HAND-OFF: Report given to Vasyl BLUNT.
--- NOTE | 2020-04-07 07:18 | NUR ---
NURSE NOTES: Report received from MERLENE Alvarez. Pt obtunded upon assessment. Unable to make needs known. Observed with copious amounts of secretions on stoma. Suctioned PRN. Pt EKG shows SR at 75 bpm. 100% O2 sat on prescribed vent settings. Respiratory rate 36. 0 residual noted on g-tube running Vital AF at 50 cc. HAIDER PICC patent and intact running 1/2 NS + 20 mEq at 150 cc. Condom cath draining well to gravity. Bed kept in lowest and locked position. Bed alarm on. Will continue monitoring.
[2020-04-07 08:00] VITALS: BP 143/89
--- NOTE | 2020-04-07 08:25 | Critical Care Progress Note ---
Assessment/Plan Assessment/Plan IMPRESSION: Respiratory failure chronic, chronic encephalopathy, septic shock, leukocytosis, ground-glass infiltrates, G-tube, aspiration, acute on chronic renal failure, profound hypokalemia, failure to thrive, severe protein-calorie malnutrition, chronic CO2 retention, and hypomagnesemia. PLAN care noted IV antibiotics reviewed IV fluids monitor lytes feeds vent- monitor acid base off load wound care ICU care close follow up JOSÉ MIGUEL care dc planning impression, plan, and exam edited and reviewed in detail care discussed with silk worker - Subjective ROS Limited/Unobtainable: Yes Condition: unchanged EKG Rhythm: Sinus Rhythm Residuals: minimal Tube Feeding Tolerated: yes I&O: Intake and Output 04/06/20 04/07/20 19:00 07:00 Intake Total 2900.5 ml 2527.5 ml Output Total 295 ml 1200 ml Balance 2605.5 ml 1327.5 ml Intake Free Water 160 ml 40 ml IV Total 2140.5 ml 1887.5 ml Tube Feeding 600 ml 600 ml Output Urine Total 295 ml 1200 ml # Bowel Movements 2 1 Critical Care - Objective Last 24 Hour Vital Signs Date Time Temp Pulse Resp B/P (MAP) Pulse Ox O2 Delivery O2 Flow Rate FiO2 04/07/20 04:00 Mechanical Ventilator 04/07/20 04:00 30 04/07/20 04:00 98.5 63 26 130/60 (83) 99 04/07/20 04:00 63 04/07/20 03:17 69 26 30 04/07/20 00:00 72 04/07/20 00:00 30 04/07/20 00:00 98.8 67 25 133/65 (87) 100 04/07/20 00:00 Mechanical Ventilator 04/06/20 23:38 66 27 100 Mechanical Ventilator 30 69 28 30 04/06/20 21:07 66 20 125/80 100 04/06/20 20:37 96 32 123/75 96 04/06/20 20:00 Mechanical Ventilator 04/06/20 20:00 98.5 63 26 130/60 (83) 99 04/06/20 20:00 30 04/06/20 19:54 68 26 30 04/06/20 19:32 66 04/06/20 18:00 98.2 82 36 151/91 (111) 100 04/06/20 17:00 75 30 133/85 (101) 100 04/06/20 16:00 71 31 130/86 (101) 100 04/06/20 16:00 60 04/06/20 16:00 Mechanical Ventilator 04/06/20 16:00 30 04/06/20 15:54 90 36 30 04/06/20 15:00 80 28 146/85 (105) 100 04/06/20 14:00 61 26 145/80 (101) 100 04/06/20 13:00 98.0 70 28 142/81 (101) 100 04/06/20 12:00 Mechanical Ventilator 04/06/20 12:00 66 20 134/81 (98) 100 04/06/20 12:00 69 04/06/20 11:20 61 32 30 04/06/20 11:10 Mechanical Ventilator 04/06/20 11:00 62 28 130/89 (103) 100 04/06/20 10:00 57 27 133/77 (95) 100 04/06/20 09:00 61 29 134/86 (102) 97 Labs: Labs Test 04/04/20 09:40 04/04/20 14:50 04/04/20 19:00 04/05/20 00:50 Sodium Level 138 MMOL/L (136-145) 139 MMOL/L (136-145) 138 MMOL/L (136-145) 136 MMOL/L (136-145) Potassium Level 1.4 MMOL/L (3.5-5.1) 1.8 MMOL/L (3.5-5.1) 2.2 MMOL/L (3.5-5.1) 3.2 MMOL/L (3.5-5.1) Chloride Level 100 MMOL/L (98-107) 102 MMOL/L (98-107) 101 MMOL/L (98-107) 102 MMOL/L (98-107) Carbon Dioxide Level 27 MMOL/L (21-32) 26 MMOL/L (21-32) 27 MMOL/L (21-32) 25 MMOL/L (21-32) Anion Gap 12 mmol/L (5-15) 10 mmol/L (5-15) 9 mmol/L (5-15) 9 mmol/L (5-15) Blood Urea Nitrogen 69 mg/dL (7-18) 71 mg/dL (7-18) 71 mg/dL (7-18) 69 mg/dL (7-18) Creatinine 2.5 MG/DL (0.55-1.30) 2.5 MG/DL (0.55-1.30) 2.4 MG/DL (0.55-1.30) 2.4 MG/DL (0.55-1.30) Estimat Glomerular Filtration Rate 25.1 mL/min (>60) 25.1 mL/min (>60) 26.3 mL/min (>60) 26.3 mL/min (>60) Glucose Level 118 MG/DL (74-106) 106 MG/DL (74-106) 122 MG/DL (74-106) 115 MG/DL (74-106) Calcium Level 8.0 MG/DL (8.5-10.1) 8.1 MG/DL (8.5-10.1) 7.7 MG/DL (8.5-10.1) 7.7 MG/DL (8.5-10.1) Magnesium Level 1.7 MG/DL (1.8-2.4) Total Bilirubin 0.4 MG/DL (0.2-1.0) 0.3 MG/DL (0.2-1.0) Aspartate Amino Transf (AST/SGOT) 23 U/L (15-37) 23 U/L (15-37) Alanine Aminotransferase (ALT/SGPT) 11 U/L (12-78) 8 U/L (12-78) Alkaline Phosphatase 119 U/L (46-116) 113 U/L (46-116) Total Creatine Kinase 19 U/L (26-308) Creatine Kinase MB 1.5 NG/ML (0.0-3.6) Creatine Kinase MB Relative Index 7.8 Total Protein 6.4 G/DL (6.4-8.2) 5.8 G/DL (6.4-8.2) Albumin 1.2 G/DL (3.4-5.0) 1.1 G/DL (3.4-5.0) Globulin 5.2 g/dL 4.7 g/dL Albumin/Globulin Ratio 0.2 (1.0-2.7) 0.2 (1.0-2.7) Test 04/05/20 07:40 04/05/20 08:19 04/06/20 04:00 04/07/20 04:00 White Blood Count 9.2 K/UL (4.8-10.8) 9.8 K/UL (4.8-10.8) 9.9 K/UL (4.8-10.8) Red Blood Count 2.56 M/UL (4.70-6.10) 2.74 M/UL (4.70-6.10) 2.74 M/UL (4.70-6.10) Hemoglobin 8.1 G/DL (14.2-18.0) 8.5 G/DL (14.2-18.0) 8.6 G/DL (14.2-18.0) Hematocrit 22.8 % (42.0-52.0) 24.9 % (42.0-52.0) 24.8 % (42.0-52.0) Mean Corpuscular Volume 89 FL (80-99) 91 FL (80-99) 91 FL (80-99) Mean Corpuscular Hemoglobin 31.7 PG (27.0-31.0) 31.2 PG (27.0-31.0) 31.5 PG (27.0-31.0) Mean Corpuscular Hemoglobin Concent 35.7 G/DL (32.0-36.0) 34.4 G/DL (32.0-36.0) 34.7 G/DL (32.0-36.0) Red Cell Distribution Width 17.6 % (11.6-14.8) 18.2 % (11.6-14.8) 18.0 % (11.6-14.8) Platelet Count 190 K/UL (150-450) 213 K/UL (150-450) 224 K/UL (150-450) Mean Platelet Volume 5.8 FL (6.5-10.1) 6.1 FL (6.5-10.1) 5.8 FL (6.5-10.1) Neutrophils (%) (Auto) 77.6 % (45.0-75.0) 75.2 % (45.0-75.0) 66.8 % (45.0-75.0) Lymphocytes (%) (Auto) 12.4 % (20.0-45.0) 12.2 % (20.0-45.0) 15.1 % (20.0-45.0) Monocytes (%) (Auto) 3.7 % (1.0-10.0) 4.4 % (1.0-10.0) 5.7 % (1.0-10.0) Eosinophils (%) (Auto) 5.8 % (0.0-3.0) 7.6 % (0.0-3.0) 11.3 % (0.0-3.0) Basophils (%) (Auto) 0.5 % (0.0-2.0) 0.6 % (0.0-2.0) 1.0 % (0.0-2.0) Sodium Level 133 MMOL/L (136-145) 135 MMOL/L (136-145) 134 MMOL/L (136-145) Potassium Level 3.9 MMOL/L (3.5-5.1) 3.6 MMOL/L (3.5-5.1) 4.0 MMOL/L (3.5-5.1) Chloride Level 103 MMOL/L (98-107) 103 MMOL/L (98-107) 104 MMOL/L (98-107) Carbon Dioxide Level 25 MMOL/L (21-32) 24 MMOL/L (21-32) 24 MMOL/L (21-32) Blood Urea Nitrogen 66 mg/dL (7-18) 65 mg/dL (7-18) 54 mg/dL (7-18) Creatinine 2.4 MG/DL (0.55-1.30) 2.3 MG/DL (0.55-1.30) 2.1 MG/DL (0.55-1.30) Estimat Glomerular Filtration Rate 26.3 mL/min (>60) 27.6 mL/min (>60) 30.7 mL/min (>60) Glucose Level 98 MG/DL (74-106) 100 MG/DL (74-106) 110 MG/DL (74-106) Calcium Level 7.7 MG/DL (8.5-10.1) 7.7 MG/DL (8.5-10.1) 7.3 MG/DL (8.5-10.1) Troponin I 0.114 ng/mL (0.000-0.056) Thyroid Stimulating Hormone (TSH) 63.879 uiU/mL (0.358-3.740) Random Vancomycin Level 10.6 ug/mL Arterial Blood pH 7.407 (7.350-7.450) Arterial Blood Partial Pressure CO2 39.0 mmHg (35.0-45.0) Arterial Blood Partial Pressure O2 112.5 mmHg (75.0-100.0) Arterial Blood HCO3 24.0 mmol/L (22.0-26.0) Arterial Blood Oxygen Saturation 97.3 % (95-100) Arterial Blood Base Excess -0.6 (-2-2) [place]ano Test Positive Erythrocyte Sedimentation Rate 103 MM/HR (0-20) Prothrombin Time 12.7 SEC (9.30-11.50) Prothromb Time International Ratio 1.2 (0.9-1.1) Activated Partial Thromboplast Time 35 SEC (23-33) Anion Gap 8 mmol/L (5-15) 6 mmol/L (5-15) Total Bilirubin 0.3 MG/DL (0.2-1.0) Aspartate Amino Transf (AST/SGOT) 36 U/L (15-37) Alanine Aminotransferase (ALT/SGPT) 17 U/L (12-78) Alkaline Phosphatase 117 U/L (46-116) C-Reactive Protein, Quantitative 8.2 mg/dL (0.00-0.90) Total Protein 6.1 G/DL (6.4-8.2) Albumin 1.2 G/DL (3.4-5.0) Globulin 4.9 g/dL Albumin/Globulin Ratio 0.2 (1.0-2.7) Lipase 92 U/L (73-393) Objective: GENERAL: The patient is an ill-appearing male, significantly debilitated. HEENT: Negative. NECK: Tracheostomy is midline. LUNGS: Coarse breath sounds. moderate; no wheeze CARDIAC: S1, S2. regular rate and rhythm without murmurs. ABDOMEN: Soft. G-tube in place. no distention EXTREMITIES: With contractures. No edema. no CC SKIN: Multiple pressure ulcers noted. Neuro poorly responsive Micro: Microbiology Date/Time Source Procedure Growth Status 04/04/20 15:42 Sputum Gram Stain - Final Complete 04/04/20 15:42 Sputum Culture - Final K.pneumoniae Carbapenem Resist Escherichia Coli Complete Mansoor Martinez MD Apr 07, 2020 08:25
[2020-04-07] MEDS: levETIRAcetam 500mg/5ml Liquid GT SCH ×2 (08:38→20:20)
[2020-04-07] MEDS: Heparin 5000 units/ml inj SUBQ SCH ×2 (08:39→20:21)
--- NOTE | 2020-04-07 08:44 | NUR ---
CASE MANAGEMENT: REVIEW 04/07/2020 SI:SEPSIS. ASPIRATION PNA. VS: T 98.5 HR 63 RR 26 B/P 130/60 SATS 99% ON MECH VENT FIO2 30 LABS: NA 134 BUN 54 CR 2.1 GLU 110 CA 7.3 IS:NS @ 150 ML/HR LINEZOLID IV Q12H KEPPRA GT Q12H COLISTIN INH Q12H DOPAMINE IV PER PARAMETERS ZOSYN IV Q8H SDU
[2020-04-07] MEDS ORDERED: Tubing IV Secondary IV ONE (09:27)
--- NOTE | 2020-04-07 09:47 | NUR ---
RD ASSESSMENT & RECOMMENDATIONS SEE CARE ACTIVITY FOR COMPLETE ASSESSMENT DAILY ESTIMATED NEEDS: Needs based on Critical care, 63kg 22-30 kcals/kg 4812-5349 total kcals 1.25-2 g protein/kg 79-126 g total protein 25-30 mL/kg 0233-8802 total fluid mLs NUTRITION DIAGNOSIS: Swallowing difficulty r/ respiratory status as evidenced by pt is vent dep via trach, PEG dep. CURRENT TF: Nepro@45ml/hr x20 hrs ENTERAL NUTRITION RECOMMENDATIONS: Vital AF 1.2 @ 50ml/hr x 24 hrs to provide 1200ml, 1440kcal, 90g prot, 973ml free water - Maintain current TF as tolerated: meets 100% est kcal/prot needs - Flush per MD, HOB over 30 degrees * If Synthroid changes from IV to GT, rec TF change to Vital AF 1.2 @ 55ml/hr x 22 hrs (hold 1 hr before and after Synthroid med) to provide 1210ml, 1452kcal, 91g prot, 981ml free water ADDITIONAL RECOMMENDATIONS: 1) Calibrated bed scale wts as able-> now w/ added P200 mattress 2) Monitor renal labs and lytes 3) Wound care: When tolerating TF at goal add WILIAM BID -> add Vit C 250mg QD; TF @ goal provides 100% RDI . . .
--- NOTE | 2020-04-07 10:00 | NUR ---
NURSE NOTES: Dr. Hair at bedside. Made aware of positive sputum cultures. No new orders endorsed. Pt in stable condition.
--- NOTE | 2020-04-07 10:26 | Surgery Progress Note ---
Surgery Progress Note Subjective Additional Comments afebrile, HD stable improving tolerating diet Objective Last 24 Hour Vital Signs Date Time Temp Pulse Resp B/P (MAP) Pulse Ox O2 Delivery O2 Flow Rate FiO2 04/07/20 08:00 Mechanical Ventilator 04/07/20 08:00 30 04/07/20 07:46 67 04/07/20 04:00 Mechanical Ventilator 04/07/20 04:00 30 04/07/20 04:00 98.5 63 26 130/60 (83) 99 04/07/20 04:00 63 04/07/20 03:17 69 26 30 04/07/20 00:00 72 04/07/20 00:00 30 04/07/20 00:00 98.8 67 25 133/65 (87) 100 04/07/20 00:00 Mechanical Ventilator 04/06/20 23:38 66 27 100 Mechanical Ventilator 30 69 28 30 04/06/20 21:07 66 20 125/80 100 04/06/20 20:37 96 32 123/75 96 04/06/20 20:00 Mechanical Ventilator 04/06/20 20:00 98.5 63 26 130/60 (83) 99 04/06/20 20:00 30 04/06/20 19:54 68 26 30 04/06/20 19:32 66 04/06/20 18:00 98.2 82 36 151/91 (111) 100 04/06/20 17:00 75 30 133/85 (101) 100 04/06/20 16:00 71 31 130/86 (101) 100 04/06/20 16:00 60 04/06/20 16:00 Mechanical Ventilator 04/06/20 16:00 30 04/06/20 15:54 90 36 30 04/06/20 15:00 80 28 146/85 (105) 100 04/06/20 14:00 61 26 145/80 (101) 100 04/06/20 13:00 98.0 70 28 142/81 (101) 100 04/06/20 12:00 Mechanical Ventilator 04/06/20 12:00 66 20 134/81 (98) 100 04/06/20 12:00 69 04/06/20 11:20 61 32 30 04/06/20 11:10 Mechanical Ventilator 04/06/20 11:00 62 28 130/89 (103) 100 I&O Intake and Output 10/8/20 10/9/20 19:00 07:00 Intake Total 2900.5 ml 2527.5 ml Output Total 295 ml 1200 ml Balance 2605.5 ml 1327.5 ml Intake Free Water 160 ml 40 ml IV Total 2140.5 ml 1887.5 ml Tube Feeding 600 ml 600 ml Output Urine Total 295 ml 1200 ml # Bowel Movements 2 1 Dressing: saturated Wound: other Cardiovascular: RSR Respiratory: decreased breath sounds Abdomen: soft, non-tender, present bowel sounds Extremities: no tenderness, no cyanosis Laboratory Tests Test 04/07/20 04:00 White Blood Count 9.9 K/UL (4.8-10.8) Red Blood Count 2.74 M/UL (4.70-6.10) L Hemoglobin 8.6 G/DL (14.2-18.0) L Hematocrit 24.8 % (42.0-52.0) L Mean Corpuscular Volume 91 FL (80-99) Mean Corpuscular Hemoglobin 31.5 PG (27.0-31.0) H Mean Corpuscular Hemoglobin Concent 34.7 G/DL (32.0-36.0) Red Cell Distribution Width 18.0 % (11.6-14.8) H Platelet Count 224 K/UL (150-450) Mean Platelet Volume 5.8 FL (6.5-10.1) L Neutrophils (%) (Auto) 66.8 % (45.0-75.0) Lymphocytes (%) (Auto) 15.1 % (20.0-45.0) L Monocytes (%) (Auto) 5.7 % (1.0-10.0) Eosinophils (%) (Auto) 11.3 % (0.0-3.0) H Basophils (%) (Auto) 1.0 % (0.0-2.0) Sodium Level 134 MMOL/L (136-145) L Potassium Level 4.0 MMOL/L (3.5-5.1) Chloride Level 104 MMOL/L (98-107) Carbon Dioxide Level 24 MMOL/L (21-32) Anion Gap 6 mmol/L (5-15) Blood Urea Nitrogen 54 mg/dL (7-18) H Creatinine 2.1 MG/DL (0.55-1.30) H Estimat Glomerular Filtration Rate 30.7 mL/min (>60) Glucose Level 110 MG/DL (74-106) H Calcium Level 7.3 MG/DL (8.5-10.1) L Plan Problems: (1) Aspiration pneumonia (2) Respiratory failure (3) ARF (acute renal failure) (4) GIB (gastrointestinal bleeding) (5) Dehydration (6) Hypokalemia (7) Hyperkalemia (8) Hypomagnesemia (9) Anemia (10) Decubitus skin ulcer Assessment & Plan: Pt presented on admission with gross contractures, Multiple Pressure Injuries, Tracheostomy. Skin Assessed under tracheal collar and no evidence of skin breakdown noted. Tear noted to urinary meatus- no exudate noted. Scrotum is erythematous with scattered satellite lesions. Large ulcer noted to R scrotal sac (L)4cm x (W)4.6cm. Base of wound is erythematous ,moist with Biofilm. Sacral DTPI with clusters of small islands of slough with surrounding maroon and indurated areas (L)8cm x (W)12cm.Mild Odor noted. Partial thickness Pressure Injury Upper/outer R buttocks(L)1.8cm x (W)1.3cm. Base of wound is moist and viable. Edges adherent to base of wound. Surrounding non-blanching erythema with scattered areas of shearing noted. Partial thickness Pressure Inferior lower R buttocks.(L)0.8cm x (W)1.2cm. Base of wound is moist and viable. Edges adherent to base of wound. Surrounding non- blanching erythema with scattered shearing noted extending into R ischial tuberosity. Clusters of small hyperpigmentation noted to L trochanteric and L ischial tuberosity. R Heel is fluctuant with scattered dry eschar and surrounding Non-Blanchable erythema.(L)6.5cm x (W)8cm. DTPI distal/lateral R foot(L)3cm x (W)3cm. Base of wound is maroon and fluctuant. dry eschar noted to tip of R 1st metatarsal with surrounding non-blanchable erythema extending dorsally and laterally of metatarsal(L)5cm x (W)1.3cm Non-Blanchable erythema that is fluctuant at base noted to dorso/lateral L 5th metatarsal(L)0.6cm x (W)0.3cm. L Heel is boggy with non-blanchable erythema laterally. Hyperpigmentation from previous wound noted at L heel. Tx.Plan: Cleanse Sacral wound with Saline. Apply TheraHoney to slough. Apply Moisture Barrier Paste periwound. Cover with Optifoam drsg. Change daily and prn. Apply Moisture Barrier Paste to Wounds R upper and lower R Buttocks. Cover each wound with Optifoam drsg. Change every 3 days and prn. Apply Zinc Oxide Paste to Scrotal Wounds TID and prn. Apply Betadine to wounds R heel and R foot . Cover with ABD Pads and wrap with Kerlix every 3 days and prn. Apply Betadine to L foot. Cover with ABD Pads and wrap with Kerlix every 3 days and prn. Cover Bony Prominences as needed with Optifoam drsgs. Reposition at least every 2hours or as tolerated. Off-load heels with pillow. 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 CURRENT TF: Nepro@45ml/hr x20 hrs ENTERAL NUTRITION RECOMMENDATIONS: Vital AF 1.2 @ 50ml/hr x 24 hrs to provide 1200ml, 1440kcal, 90g prot, 973ml free water - W/ consistently low lytes, rec TF change to Vital AF 1.2 for critical care - Start Vital AF 1.2 @30ml/hr for 6 hrs, advance as tolerated 10ml/hr q4-6 hrs to goal. - Flush per , HOB over 30 degrees ADDITIONAL RECOMMENDATIONS: 1) Calibrated bed scale wts as able-> now w/ added P200 mattress 2) Monitor renal labs and lytes 3) Wound care: When tolerating TF at goal add WILIAM BID -> rec WC eval 4) Monitor hemodynamic stability, dopamine on hold (26) AUDREY (acute kidney injury) (27) HCAP (healthcare-associated pneumonia) (28) Suspected COVID-19 virus infection (29) Colon distention Assessment & Plan: colonic distention abd mild distended tube in place ilius chronic Groundglass infiltrates noted in the right lung base. There is a denser consolidation in the posterior left lower lobe with air bronchogram. Some dependent atelectasis or infiltrates also noted posterior right lung base. Bilateral small pleural effusions noted. Images through upper abdomen degraded by streak artifact from the patient's arm position. The liver and spleen are grossly homogeneous to the extent visualized. Gallbladder is not visualized. Surgical clips in the gallbladder fossa. The pancreas is unremarkable. Adrenals are normal in morphology. There appears to be a low- density cyst in the lower pole of the left kidney. No hydronephrosis seen bilaterally. There is a G-tube in place. Small bowel loops are nondistended. There is gaseous distention of the colon. Sigmoid diverticulosis noted without sign of acute diverticulitis. The appendix is not visualized. There is a small amount of asci mandi in the lower abdomen/pelvis. No free air identified. No pathologic adenopathy demonstrated. Mild diffuse wall thickening of the urinary bladder noted. Question underlying cystitis. There appears to be an old fracture of the left femoral head/neck. The shaft is displaced superolaterally. There is old superior endplate depression of L1. IMPRESSION: BIBASILAR AIRSPACE DISEASE IN BOTH LUNG BASES INCLUDING RIGHT BASILAR GROUNDGLASS INFILTRATES AND DENSER CONSOLIDATION WITH AIR BRONCHOGRAMS IN THE LEFT LOWER LOBE. BILATERAL SMALL EFFUSIONS. G-TUBE IN PLACE. GASEOUS DISTENTION OF THE COLON. DIVERTICULOSIS NOTED WITHOUT SIGN OF ACUTE DIVERTICULITIS. SMALL AMOUNT OF ASCITES IN THE LOWER ABDOMEN/PELVIS. WALL THICKENING OF THE URINARY BLADDER. QUESTION UNDERLYING CYSTITIS. FRACTURE OF THE LEFT FEMORAL HEAD/NECK WHICH APPEARS OLD. LEFT FEMORAL SHAFT DISPLACED SUPEROLATERALLY. OLD SUPERIOR ENDPLATE DEPRESSION OF L1. Benyamini,Rehan Apr 07, 2020 10:26
--- NOTE | 2020-04-07 11:08 | Infectious Diseases Prog Note ---
"Assessment/Plan Assessment/Plan antibiotics : linezolid, zosyn, inhaled colistin A 1. klebsiella | e.coli pneumonia COVID 19 test negative 2. respiratory failure 3. leucocytosis resolved 4. hypertension 5. renal failure improving 6. CHF 7. + blood cultures with coag neg staph likely contaminated P 1. continue zosyn 2. d/c linezolid 3. continue inhaled colistin 5 more days 4. will follow up cultures Subjective ROS Limited/Unobtainable: Yes Allergies: Coded Allergies: No Known Allergies (Unverified , 02/23/12) Objective Last 24 Hour Vital Signs Date Time Temp Pulse Resp B/P (MAP) Pulse Ox O2 Delivery O2 Flow Rate FiO2 04/07/20 08:00 97.5 69 36 143/89 (107) 100 04/07/20 08:00 Mechanical Ventilator 04/07/20 08:00 30 04/07/20 07:46 67 04/07/20 06:40 99 32 30 04/07/20 04:00 Mechanical Ventilator 04/07/20 04:00 30 04/07/20 04:00 98.5 63 26 130/60 (83) 99 04/07/20 04:00 63 04/07/20 03:17 69 26 30 04/07/20 00:00 72 04/07/20 00:00 30 04/07/20 00:00 98.8 67 25 133/65 (87) 100 04/07/20 00:00 Mechanical Ventilator 04/06/20 23:38 66 27 100 Mechanical Ventilator 30 69 28 30 04/06/20 21:07 66 20 125/80 100 04/06/20 20:37 96 32 123/75 96 04/06/20 20:00 Mechanical Ventilator 04/06/20 20:00 98.5 63 26 130/60 (83) 99 04/06/20 20:00 30 04/06/20 19:54 68 26 30 04/06/20 19:32 66 04/06/20 18:00 98.2 82 36 151/91 (111) 100 04/06/20 17:00 75 30 133/85 (101) 100 04/06/20 16:00 71 31 130/86 (101) 100 04/06/20 16:00 60 04/06/20 16:00 Mechanical Ventilator 04/06/20 16:00 30 04/06/20 15:54 90 36 30 04/06/20 15:00 80 28 146/85 (105) 100 04/06/20 14:00 61 26 145/80 (101) 100 04/06/20 13:00 98.0 70 28 142/81 (101) 100 04/06/20 12:00 Mechanical Ventilator 04/06/20 12:00 66 20 134/81 (98) 100 04/06/20 12:00 69 04/06/20 11:20 61 32 30 04/06/20 11:10 Mechanical Ventilator Height (Feet): 5 Height (Inches): 4.00 Weight (Pounds): 139 HEENT: status post trach Respiratory/Chest: lungs clear Cardiovascular: normal rate, regular rhythm, no gallop/murmur Abdomen: soft, non tender, other - GT Extremities: other - + edema, right arm PICC Microbiology Date/Time Source Procedure Growth Status 04/04/20 15:42 Sputum Gram Stain - Final Complete 04/04/20 15:42 Sputum Culture - Final K.pneumoniae Carbapenem Resist Escherichia Coli Complete Laboratory Tests Test 04/07/20 04:00 White Blood Count 9.9 K/UL (4.8-10.8) Red Blood Count 2.74 M/UL (4.70-6.10) L Hemoglobin 8.6 G/DL (14.2-18.0) L Hematocrit 24.8 % (42.0-52.0) L Mean Corpuscular Volume 91 FL (80-99) Mean Corpuscular Hemoglobin 31.5 PG (27.0-31.0) H Mean Corpuscular Hemoglobin Concent 34.7 G/DL (32.0-36.0) Red Cell Distribution Width 18.0 % (11.6-14.8) H Platelet Count 224 K/UL (150-450) Mean Platelet Volume 5.8 FL (6.5-10.1) L Neutrophils (%) (Auto) 66.8 % (45.0-75.0) Lymphocytes (%) (Auto) 15.1 % (20.0-45.0) L Monocytes (%) (Auto) 5.7 % (1.0-10.0) Eosinophils (%) (Auto) 11.3 % (0.0-3.0) H Basophils (%) (Auto) 1.0 % (0.0-2.0) Sodium Level 134 MMOL/L (136-145) L Potassium Level 4.0 MMOL/L (3.5-5.1) Chloride Level 104 MMOL/L (98-107) Carbon Dioxide Level 24 MMOL/L (21-32) Anion Gap 6 mmol/L (5-15) Blood Urea Nitrogen 54 mg/dL (7-18) H Creatinine 2.1 MG/DL (0.55-1.30) H Estimat Glomerular Filtration Rate 30.7 mL/min (>60) Glucose Level 110 MG/DL (74-106) H Calcium Level 7.3 MG/DL (8.5-10.1) L Current Medications Medications (Trade) Dose Ordered Sig/Lanny Route PRN Reason Start Time Stop Time Status Last Admin Dose Admin Acetaminophen (Tylenol) 650 mg Q4H PRN ORAL FEVER 04/04/20 13:30 05/04/20 13:29 04/06/20 20:36 Albuterol/ Ipratropium (Albuterol/ Ipratropium) 3 ml Q6H PRN HHN Shortness of Breath 04/04/20 13:30 04/09/20 13:29 04/06/20 04:19 Chlorhexidine Gluconate (Kayla-Hex 2%) 1 applic DAILY@1999 TOPIC 04/04/20 20:00 07/03/20 19:59 04/06/20 20:38 Colistimethate Sodium (Colistin *inhalation use only*) 75 mg Q12HR@10,22 INH 04/06/20 22:00 04/13/20 21:59 04/06/20 23:37 Dextrose (Dextrose 50%) 25 ml Q30M PRN IV Hypoglycemia 04/04/20 13:30 07/03/20 13:29 Dextrose (Dextrose 50%) 50 ml Q30M PRN IV Hypoglycemia 04/04/20 13:30 07/03/20 13:29 Dopamine HCl/ Dextrose 250 ml @ 0 mls/hr Q24H IV 04/04/20 16:09 04/07/20 16:08 04/04/20 16:59 Epoetin Asaf (Epoetin Asaf-EPBX(NON ESRD)) 8,000 unit FRI-FRI-FRI SUBQ 04/05/20 21:00 07/04/20 20:59 04/05/20 20:51 Heparin Sodium (Porcine) (Heparin 5000 units/ml) 5,000 units EVERY 12 HOURS SUBQ 04/04/20 21:00 05/19/20 20:59 04/07/20 08:39 Heparin Sodium/ Sodium Chloride (Heparin 1000 units/500ml Premix) 1,000 unit ONCE PRN IV PICC LINE PLACEMENT 04/04/20 19:45 04/07/20 19:44 Levetiracetam (Keppra) 500 mg Q12HR GT 04/06/20 09:00 05/06/20 08:59 04/07/20 08:38 Levothyroxine Sodium (Synthroid) 50 mcg DAILY IV 04/07/20 09:00 05/06/20 06:29 04/07/20 08:38 Lidocaine HCl (Xylocaine 1% 30ml) 30 ml ONCE PRN INJ PICC LINE PLACEMENT 04/04/20 19:45 04/07/20 19:44 Linezolid 300 ml @ 300 mls/hr Q12HR IVPB 04/05/20 21:00 04/12/20 20:59 04/07/20 08:38 Lorazepam (Ativan 2mg/ml 1ml) 1 mg Q3H PRN IV For Anxiety 04/06/20 06:15 04/13/20 06:14 04/06/20 20:37 Piperacillin Sod/ Tazobactam Sod 3.375 gm/Sodium Chloride 110 ml @ 27.5 mls/hr Q8HR IVPB 04/04/20 14:00 04/11/20 13:59 04/07/20 06:00 Sodium 1,000 ml @ 150 mls/hr Q6H40M IV 04/04/20 15:00 05/04/20 14:59 04/07/20 04:00 Isaak Hair MD Apr 07, 2020 11:08"
[2020-04-07] MEDS: Colistin for inhalation INH SCH ×2 (11:11→22:00)
[2020-04-07 12:00] VITALS: BP 149/99
--- NOTE | 2020-04-07 13:25 | Nephrology Progress Note ---
Assessment/Plan Plan Sepsis - IV Abx Hypokalemia corrected Hypomagnesemia - corrected CKD - Stable Subjective Subjective Obtunded Objective Objective Last 24 Hour Vital Signs Date Time Temp Pulse Resp B/P (MAP) Pulse Ox O2 Delivery O2 Flow Rate FiO2 04/07/20 11:10 68 37 99 Mechanical Ventilator 30 69 34 30 04/07/20 08:00 97.5 69 36 143/89 (107) 100 04/07/20 08:00 Mechanical Ventilator 04/07/20 08:00 30 04/07/20 07:46 67 04/07/20 06:40 99 32 30 04/07/20 04:00 Mechanical Ventilator 04/07/20 04:00 30 04/07/20 04:00 98.5 63 26 130/60 (83) 99 04/07/20 04:00 63 04/07/20 03:17 69 26 30 04/07/20 00:00 72 04/07/20 00:00 30 04/07/20 00:00 98.8 67 25 133/65 (87) 100 04/07/20 00:00 Mechanical Ventilator 04/06/20 23:38 66 27 100 Mechanical Ventilator 30 69 28 30 04/06/20 21:07 66 20 125/80 100 04/06/20 20:37 96 32 123/75 96 04/06/20 20:00 Mechanical Ventilator 04/06/20 20:00 98.5 63 26 130/60 (83) 99 04/06/20 20:00 30 04/06/20 19:54 68 26 30 04/06/20 19:32 66 04/06/20 18:00 98.2 82 36 151/91 (111) 100 04/06/20 17:00 75 30 133/85 (101) 100 04/06/20 16:00 71 31 130/86 (101) 100 04/06/20 16:00 60 04/06/20 16:00 Mechanical Ventilator 04/06/20 16:00 30 04/06/20 15:54 90 36 30 04/06/20 15:00 80 28 146/85 (105) 100 04/06/20 14:00 61 26 145/80 (101) 100 Intake and Output 04/06/20 04/07/20 19:00 07:00 Intake Total 2900.5 ml 2527.5 ml Output Total 295 ml 1200 ml Balance 2605.5 ml 1327.5 ml Intake Free Water 160 ml 40 ml IV Total 2140.5 ml 1887.5 ml Tube Feeding 600 ml 600 ml Output Urine Total 295 ml 1200 ml # Bowel Movements 2 1 Laboratory Tests 04/07/20 04:00: White Blood Count 9.9, Red Blood Count 2.74L, Hemoglobin 8.6L, Hematocrit 24.8L, Mean Corpuscular Volume 91, Mean Corpuscular Hemoglobin 31.5H, Mean Corpuscular Hemoglobin Concent 34.7, Red Cell Distribution Width 18.0H, Platelet Count 224, Mean Platelet Volume 5.8L, Neutrophils (%) (Auto) 66.8, Lymphocytes (%) (Auto) 15.1L, Monocytes (%) (Auto) 5.7, Eosinophils (%) (Auto) 11.3H, Basophils (%) (Auto) 1.0, Sodium Level 134L, Potassium Level 4.0, Chloride Level 104, Carbon Dioxide Level 24, Anion Gap 6, Blood Urea Nitrogen 54H, Creatinine 2.1H, Estimat Glomerular Filtration Rate 30.7, Glucose Level 110H, Calcium Level 7.3L Height (Feet): 5 Height (Inches): 4.00 Weight (Pounds): 139 Objective Obtunded. On Vent Trach clean Lungs B Miriam Bianchi SNT. [employer] Ayanna Maldonado MD Apr 07, 2020 13:25
--- NOTE | 2020-04-07 15:51 | General Progress Note ---
Subjective ROS Limited/Unobtainable: Yes Constitutional: Reports: malaise, weakness HEENT: Reports: no symptoms Cardiovascular: Reports: no symptoms Respiratory: Reports: cough, shortness of breath, sputum Gastrointestinal/Abdominal: Reports: difficulty swallowing Genitourinary: Reports: no symptoms Neurologic/Psychiatric: Reports: pre-existing deficit, seizure Endocrine: Reports: no symptoms Hematologic/Lymphatic: Reports: anemia Allergies: Coded Allergies: No Known Allergies (Unverified , 02/23/12) All Systems: reviewed and negative except above Subjective out of the icu. no events. agitated last night. better after ativan. tolerating feeds. no fevers. BP stable. +congestion and secretions + cultures noted. on iv abx. nonverbal at baseline. Objective Last 24 Hour Vital Signs Date Time Temp Pulse Resp B/P (MAP) Pulse Ox O2 Delivery O2 Flow Rate FiO2 04/07/20 12:00 30 04/07/20 12:00 97.7 64 32 149/99 (116) 100 04/07/20 12:00 Mechanical Ventilator 04/07/20 11:40 73 04/07/20 11:10 68 37 99 Mechanical Ventilator 30 69 34 30 04/07/20 08:00 97.5 69 36 143/89 (107) 100 04/07/20 08:00 Mechanical Ventilator 04/07/20 08:00 30 04/07/20 07:46 67 04/07/20 06:40 99 32 30 04/07/20 04:00 Mechanical Ventilator 04/07/20 04:00 30 04/07/20 04:00 98.5 63 26 130/60 (83) 99 04/07/20 04:00 63 04/07/20 03:17 69 26 30 04/07/20 00:00 72 04/07/20 00:00 30 04/07/20 00:00 98.8 67 25 133/65 (87) 100 04/07/20 00:00 Mechanical Ventilator 04/06/20 23:38 66 27 100 Mechanical Ventilator 30 69 28 30 04/06/20 21:07 66 20 125/80 100 04/06/20 20:37 96 32 123/75 96 04/06/20 20:00 Mechanical Ventilator 04/06/20 20:00 98.5 63 26 130/60 (83) 99 04/06/20 20:00 30 04/06/20 19:54 68 26 30 04/06/20 19:32 66 04/06/20 18:00 98.2 82 36 151/91 (111) 100 04/06/20 17:00 75 30 133/85 (101) 100 04/06/20 16:00 71 31 130/86 (101) 100 04/06/20 16:00 60 04/06/20 16:00 Mechanical Ventilator 04/06/20 16:00 30 04/06/20 15:54 90 36 30 Intake and Output 04/06/20 04/07/20 19:00 07:00 Intake Total 2900.5 ml 2527.5 ml Output Total 295 ml 1200 ml Balance 2605.5 ml 1327.5 ml Intake Free Water 160 ml 40 ml IV Total 2140.5 ml 1887.5 ml Tube Feeding 600 ml 600 ml Output Urine Total 295 ml 1200 ml # Bowel Movements 2 1 Laboratory Tests 04/07/20 04:00: White Blood Count 9.9, Red Blood Count 2.74L, Hemoglobin 8.6L, Hematocrit 24.8L, Mean Corpuscular Volume 91, Mean Corpuscular Hemoglobin 31.5H, Mean Corpuscular Hemoglobin Concent 34.7, Red Cell Distribution Width 18.0H, Platelet Count 224, Mean Platelet Volume 5.8L, Neutrophils (%) (Auto) 66.8, Lymphocytes (%) (Auto) 15.1L, Monocytes (%) (Auto) 5.7, Eosinophils (%) (Auto) 11.3H, Basophils (%) (Auto) 1.0, Sodium Level 134L, Potassium Level 4.0, Chloride Level 104, Carbon Dioxide Level 24, Anion Gap 6, Blood Urea Nitrogen 54H, Creatinine 2.1H, Estimat Glomerular Filtration Rate 30.7, Glucose Level 110H, Calcium Level 7.3L Height (Feet): 5 Height (Inches): 4.00 Weight (Pounds): 139 Objective General Appearance: WD/WN, lethargic, confused EENT: normal ENT inspection Neck: normal alignment, supple Cardiovascular: normal peripheral pulses, normal rate, regular rhythm Respiratory/Chest: chest wall non-tender, rhonchi - bilaterally Abdomen: normal bowel sounds, non tender, soft, no organomegaly Extremities: normal range of motion Edema: no edema noted Arm (L), no edema noted Arm (R) Neurologic: unresponsive, aphasia Skin: normal pigmentation Assessment/Plan Problem List: (1) Aspiration pneumonia ICD Codes: J69.0 - Pneumonitis due to inhalation of food and vomit SNOMED: 798329805 (2) Respiratory failure ICD Codes: J96.90 - Respiratory failure, unspecified, unspecified whether with hypoxia or hypercapnia SNOMED: 979657570 (3) ARF (acute renal failure) ICD Codes: N17.9 - Acute kidney failure, unspecified SNOMED: 97653718, 431012810 (4) Decubitus skin ulcer ICD Codes: L89.90 - Pressure ulcer of unspecified site, unspecified stage SNOMED: 363504573 (5) Sepsis ICD Codes: A41.9 - Sepsis, unspecified organism SNOMED: 87898762 (6) UTI (urinary tract infection) ICD Codes: N39.0 - Urinary tract infection, site not specified SNOMED: 18239827, 224718642 (7) Pneumonia ICD Codes: J18.9 - Pneumonia, unspecified organism SNOMED: 755416537 (8) HCAP (healthcare-associated pneumonia) ICD Codes: J18.9 - Pneumonia, unspecified organism SNOMED: 472802046, 603466932 (9) AUDREY (acute kidney injury) ICD Codes: N17.9 - Acute kidney failure, unspecified SNOMED: 6733146, 19035605 (10) Protein-calorie malnutrition, severe ICD Codes: E43 - Unspecified severe protein-calorie malnutrition SNOMED: 125180250, 795610759, 062645849 (11) Chronic kidney disease ICD Codes: N18.9 - Chronic kidney disease, unspecified SNOMED: 569499682, 46180655 Status: stable Assessment/Plan: cont vent support resp rx and suctioning as needed tube feeds follow up cultures- sputum and blood abx per ID wound care IVF monitor labs and volume status anxiolytics dvt/stress ulcer prophylaxis poor prognosis full code per Jimi Martinez MD Apr 07, 2020 15:51
[2020-04-07 16:00] VITALS: BP 153/81
--- NOTE | 2020-04-07 16:00 | NUR ---
NURSE NOTES: Pt. in stable condition. D/w RT to change trach dressing site. No respiratory or cardiac distress noted.
--- NOTE | 2020-04-07 19:10 | NUR ---
NURSE NOTES: Received report from MERLENE White. Patient obtunded, when opens eyes, afebrile and has no respiratory distress noted. On vent to trache Shiley 8, AC 26, Tidal volume 450, Fi O2 30% and PEEP 5 saturating at 100%. On Vital AF 1.2 at 50cc/hr infusing well withotu any residual. With Right upper arm PICC Line intact, patent and asymptomatic. With condom catheter to urine bag draining well. Needs were attended. HOB elevated. bed rails are up and padded. Wheels are locked. Call light within reach. Continue plan of care.
--- NOTE | 2020-04-07 19:21 | NUR ---
NURSE HAND-OFF REPORT: Important Events on Shift: No change Patient Status: stable Diet: Vital AF Pending Orders: N Pending Results/Labs:N Pending MD notification:N Latest Vital Signs: Temperature 97.7 , Pulse 71 , B/P 153 /81 , Respiratory Rate 34 , O2 SAT 100 , Mechanical Ventilator, O2 Flow Rate . Vital Sign Comment: WNL EKG Rhythm: Sinus Rhythm Rhythm change?: N MD Notified?: - MD Response: Latest Amador Fall Score: 70 Fall Risk: High Risk Safety Measures: Call light Within Reach, Bed Alarm Zone 1, Side Rails Side Rails x3, Bed position Low and Locked. Fall Precautions: Yellow Gown Report given to MERLENE RIDDLE.
[2020-04-07 20:00] VITALS: BP 140/53
[2020-04-07] MEDS: Epoetin Alfa-EPBX (NON ESRD)4000 units/ml vial SUBQ SCH (20:20)
[2020-04-07] MEDS: Dyna-Hex 2% Top Sol 2oz TOPIC SCH (20:20)
[2020-04-08] VITALS: BP 127/81
[2020-04-08] MEDS: 1/2NS w/KCl 20mEq 1000ml 1,000 ML IV SCH ×2 (00:14→06:14)
--- NOTE | 2020-04-08 00:18 | Cardiology Progress Note ---
Subjective DATE OF SERVICE: Apr 07, 2020 Remains in ICU with critical condition & guarded prognosis. Sputum culture with KPCr and EColi TSH is over 63; IV throid repl started 04/05. Blood cultures positive for gm+ cocci Objective Last 24 Hour Vital Signs Date Time Temp Pulse Resp B/P (MAP) Pulse Ox O2 Delivery O2 Flow Rate FiO2 04/07/20 23:26 65 30 30 04/07/20 20:00 30 04/07/20 20:00 97.7 60 26 140/53 (82) 100 04/07/20 20:00 Mechanical Ventilator 04/07/20 19:23 66 04/07/20 19:21 63 30 30 04/07/20 16:00 97.7 71 34 153/81 (105) 100 04/07/20 16:00 Mechanical Ventilator 04/07/20 16:00 30 04/07/20 15:29 68 04/07/20 15:20 70 30 30 04/07/20 12:00 30 04/07/20 12:00 97.7 64 32 149/99 (116) 100 04/07/20 12:00 Mechanical Ventilator 04/07/20 11:40 73 04/07/20 11:10 68 37 99 Mechanical Ventilator 30 69 34 30 04/07/20 08:00 97.5 69 36 143/89 (107) 100 04/07/20 08:00 Mechanical Ventilator 04/07/20 08:00 30 04/07/20 07:46 67 04/07/20 06:40 99 32 30 04/07/20 04:00 Mechanical Ventilator 04/07/20 04:00 30 04/07/20 04:00 98.5 63 26 130/60 (83) 99 04/07/20 04:00 63 04/07/20 03:17 69 26 30 HEENT: Thick Trach secretions RHYTHM: NSR, other - PAFib LUNGS: bilateral rhonchi, trach site clean CARDIAC: normal rate, regular rhythm, normal S1 and S2 ABDOMEN: non tender, soft, G-Tube intact EXTREMITIES: no calf tenderness, no swelling Laboratory Tests Test 04/07/20 04:00 White Blood Count 9.9 K/UL (4.8-10.8) Red Blood Count 2.74 M/UL (4.70-6.10) L Hemoglobin 8.6 G/DL (14.2-18.0) L Hematocrit 24.8 % (42.0-52.0) L Mean Corpuscular Volume 91 FL (80-99) Mean Corpuscular Hemoglobin 31.5 PG (27.0-31.0) H Mean Corpuscular Hemoglobin Concent 34.7 G/DL (32.0-36.0) Red Cell Distribution Width 18.0 % (11.6-14.8) H Platelet Count 224 K/UL (150-450) Mean Platelet Volume 5.8 FL (6.5-10.1) L Neutrophils (%) (Auto) 66.8 % (45.0-75.0) Lymphocytes (%) (Auto) 15.1 % (20.0-45.0) L Monocytes (%) (Auto) 5.7 % (1.0-10.0) Eosinophils (%) (Auto) 11.3 % (0.0-3.0) H Basophils (%) (Auto) 1.0 % (0.0-2.0) Sodium Level 134 MMOL/L (136-145) L Potassium Level 4.0 MMOL/L (3.5-5.1) Chloride Level 104 MMOL/L (98-107) Carbon Dioxide Level 24 MMOL/L (21-32) Anion Gap 6 mmol/L (5-15) Blood Urea Nitrogen 54 mg/dL (7-18) H Creatinine 2.1 MG/DL (0.55-1.30) H Estimat Glomerular Filtration Rate 30.7 mL/min (>60) Glucose Level 110 MG/DL (74-106) H Calcium Level 7.3 MG/DL (8.5-10.1) L Assessment/Plan Assessment/Plan Sepsis Shock recovering Gram positive bacteremia with increased risk for endocarditis HC associated gram negative PNA Anemia Hypothyroidism Vent-dep respiratory failure PAFib with episodes of RVR Chronic diastolic CHF Acute myocardial ischemia Hypokalemia Severe protein/calorie malnutrition Tapered off pressors Abx per ID Vent support Resp Rx DVT prophyl IV thyroid replacement Replace lytes/Mg++ Titrate cardiovascular regimen 2D Echo pending F/U cultures Franko Pineda MD Apr 08, 2020 00:18
--- NOTE | 2020-04-08 01:30 | NUR ---
NURSE NOTES: Pt was given partial bed bath. Gown and linen changed. Wound treatment done PRN. suction oral secretions PRN. Pt tolerated well. Continue to monitor the patient.
[2020-04-08 04:00] VITALS: BP 127/81
[2020-04-08] MEDS: Piperacillin/Tazobactam 3.375 GM in NS 110 ML IVPB SCH (05:12)
--- NOTE | 2020-04-08 06:15 | NUR ---
NURSE NOTES: Pt asleep in bed, suction prn for oral secretions. No respiratory distress or any discomforts noted. Continue to monitor the patient.
--- NOTE | 2020-04-08 07:05 | NUR ---
NURSE HAND-OFF REPORT: Important Events on Shift: none Patient Status: Stable Diet: vital af 1.2 at 50cc/hr Pending Orders: n Pending Results/Labs:n Pending MD notification:n Latest Vital Signs: Temperature 97.7 , Pulse 72 , B/P 127 /81 , Respiratory Rate 26 , O2 SAT 100 , Mechanical Ventilator, O2 Flow Rate . Vital Sign Comment: n EKG Rhythm: Sinus Rhythm Rhythm change?: N MD Notified?: - MD Response: Latest Amador Fall Score: 70 Fall Risk: High Risk Safety Measures: Call light Within Reach, Bed Alarm Zone 1, Side Rails Side Rails x3, Bed position Low and Locked. Fall Precautions: Yellow Gown Report given to MERLENE michel / MERLENE Bower.
--- NOTE | 2020-04-08 07:30 | NUR ---
NURSE NOTES: Received report from VENKATESH Rn, patient in bed , obtunded opens eyes.Contracted Upper and Bilateral extremities On vent to trach Shiley 8, AC 26, Tidal volume 450, Fi O2 30% and PEEP 5, saturating well. In apparent distress noted. Gtube is intact, patent and flushed well. On Vital AF 1.2 at 50cc/hr infusing well, no residual noted. With Right upper arm PICC Line intact, patent and flushed well. With condom catheter to urine bag draining well. HOB elevated. bed rails are up and padded. Safety measures in place. Call light within reach. Will continue to monitor
[2020-04-08 08:00] VITALS: BP 158/84
--- NOTE | 2020-04-08 08:41 | Nephrology Progress Note ---
Assessment/Plan Plan Sepsis - IV Abx Hypokalemia corrected Hypomagnesemia - corrected CKD - Stable Subjective Subjective Obtunded Objective Objective Last 24 Hour Vital Signs Date Time Temp Pulse Resp B/P (MAP) Pulse Ox O2 Delivery O2 Flow Rate FiO2 04/08/20 07:54 76 29 30 04/08/20 04:00 97.7 72 26 127/81 (96) 100 04/08/20 04:00 Mechanical Ventilator 04/08/20 04:00 30 04/08/20 03:54 72 04/08/20 03:02 69 34 30 04/08/20 00:00 97.6 62 26 127/81 (96) 100 04/08/20 00:00 Mechanical Ventilator 04/07/20 23:57 81 04/07/20 23:26 65 30 100 Mechanical Ventilator 30 67 30 30 04/07/20 20:00 30 04/07/20 20:00 97.7 60 26 140/53 (82) 100 04/07/20 20:00 Mechanical Ventilator 04/07/20 19:23 66 04/07/20 19:21 63 30 30 04/07/20 16:00 97.7 71 34 153/81 (105) 100 04/07/20 16:00 Mechanical Ventilator 04/07/20 16:00 30 04/07/20 15:29 68 04/07/20 15:20 70 30 30 04/07/20 12:00 30 04/07/20 12:00 97.7 64 32 149/99 (116) 100 04/07/20 12:00 Mechanical Ventilator 04/07/20 11:40 73 04/07/20 11:10 68 37 99 Mechanical Ventilator 30 69 34 30 Intake and Output 04/07/20 04/08/20 19:00 07:00 Intake Total 2560.041 ml 2633.5 ml Output Total 1200 ml 1400 ml Balance 1360.041 ml 1233.5 ml Intake Free Water 40 ml 100 ml IV Total 1970.041 ml 1933.5 ml Tube Feeding 550 ml 600 ml Output Urine Total 1200 ml 1400 ml # Bowel Movements 3 3 Height (Feet): 5 Height (Inches): 4.00 Weight (Pounds): 139 Objective Obtunded. On Vent Trach clean Lungs B Ronchi Abd SNT. [employer] Ayanna Maldonado MD Apr 08, 2020 08:41
[2020-04-08] MEDS: levETIRAcetam 500mg/5ml Liquid GT SCH (09:20)
[2020-04-08] MEDS: Heparin 5000 units/ml inj SUBQ SCH (09:22)
[2020-04-08] MEDS: Colistin for inhalation INH SCH (09:22)
--- NOTE | 2020-04-08 09:25 | Critical Care Progress Note ---
Assessment/Plan Assessment/Plan IMPRESSION: Respiratory failure chronic, chronic encephalopathy, septic shock, leukocytosis, ground-glass infiltrates, G-tube, aspiration, acute on chronic renal failure, profound hypokalemia, failure to thrive, severe protein-calorie malnutrition, chronic CO2 retention, and hypomagnesemia. PLAN care noted IV antibiotics per ID noted IV fluids- dc monitor lytes feeds vent- monitor acid base off load wound care close follow up JOSÉ MIGUEL care dc planning to snf today impression, plan, and exam edited and reviewed in detail care discussed with sheet metal installer - Subjective ROS Limited/Unobtainable: Yes Condition: unchanged EKG Rhythm: Sinus Rhythm Residuals: minimal Tube Feeding Tolerated: yes I&O: Intake and Output 04/07/20 04/08/20 19:00 07:00 Intake Total 2560.041 ml 2633.5 ml Output Total 1200 ml 1400 ml Balance 1360.041 ml 1233.5 ml Intake Free Water 40 ml 100 ml IV Total 1970.041 ml 1933.5 ml Tube Feeding 550 ml 600 ml Output Urine Total 1200 ml 1400 ml # Bowel Movements 3 3 Critical Care - Objective Last 24 Hour Vital Signs Date Time Temp Pulse Resp B/P (MAP) Pulse Ox O2 Delivery O2 Flow Rate FiO2 04/08/20 07:54 76 29 30 04/08/20 04:00 97.7 72 26 127/81 (96) 100 04/08/20 04:00 Mechanical Ventilator 04/08/20 04:00 30 04/08/20 03:54 72 04/08/20 03:02 69 34 30 04/08/20 00:00 97.6 62 26 127/81 (96) 100 04/08/20 00:00 Mechanical Ventilator 04/07/20 23:57 81 04/07/20 23:26 65 30 100 Mechanical Ventilator 30 67 30 30 04/07/20 20:00 30 04/07/20 20:00 97.7 60 26 140/53 (82) 100 04/07/20 20:00 Mechanical Ventilator 04/07/20 19:23 66 04/07/20 19:21 63 30 30 04/07/20 16:00 97.7 71 34 153/81 (105) 100 04/07/20 16:00 Mechanical Ventilator 04/07/20 16:00 30 04/07/20 15:29 68 10/9/20 15:20 70 30 30 04/07/20 12:00 30 04/07/20 12:00 97.7 64 32 149/99 (116) 100 04/07/20 12:00 Mechanical Ventilator 04/07/20 11:40 73 04/07/20 11:10 68 37 99 Mechanical Ventilator 30 69 34 30 Labs: Labs Test 04/06/20 04:00 04/07/20 04:00 White Blood Count 9.8 K/UL (4.8-10.8) 9.9 K/UL (4.8-10.8) Red Blood Count 2.74 M/UL (4.70-6.10) 2.74 M/UL (4.70-6.10) Hemoglobin 8.5 G/DL (14.2-18.0) 8.6 G/DL (14.2-18.0) Hematocrit 24.9 % (42.0-52.0) 24.8 % (42.0-52.0) Mean Corpuscular Volume 91 FL (80-99) 91 FL (80-99) Mean Corpuscular Hemoglobin 31.2 PG (27.0-31.0) 31.5 PG (27.0-31.0) Mean Corpuscular Hemoglobin Concent 34.4 G/DL (32.0-36.0) 34.7 G/DL (32.0-36.0) Red Cell Distribution Width 18.2 % (11.6-14.8) 18.0 % (11.6-14.8) Platelet Count 213 K/UL (150-450) 224 K/UL (150-450) Mean Platelet Volume 6.1 FL (6.5-10.1) 5.8 FL (6.5-10.1) Neutrophils (%) (Auto) 75.2 % (45.0-75.0) 66.8 % (45.0-75.0) Lymphocytes (%) (Auto) 12.2 % (20.0-45.0) 15.1 % (20.0-45.0) Monocytes (%) (Auto) 4.4 % (1.0-10.0) 5.7 % (1.0-10.0) Eosinophils (%) (Auto) 7.6 % (0.0-3.0) 11.3 % (0.0-3.0) Basophils (%) (Auto) 0.6 % (0.0-2.0) 1.0 % (0.0-2.0) Erythrocyte Sedimentation Rate 103 MM/HR (0-20) Prothrombin Time 12.7 SEC (9.30-11.50) Prothromb Time International Ratio 1.2 (0.9-1.1) Activated Partial Thromboplast Time 35 SEC (23-33) Sodium Level 135 MMOL/L (136-145) 134 MMOL/L (136-145) Potassium Level 3.6 MMOL/L (3.5-5.1) 4.0 MMOL/L (3.5-5.1) Chloride Level 103 MMOL/L (98-107) 104 MMOL/L (98-107) Carbon Dioxide Level 24 MMOL/L (21-32) 24 MMOL/L (21-32) Anion Gap 8 mmol/L (5-15) 6 mmol/L (5-15) Blood Urea Nitrogen 65 mg/dL (7-18) 54 mg/dL (7-18) Creatinine 2.3 MG/DL (0.55-1.30) 2.1 MG/DL (0.55-1.30) Estimat Glomerular Filtration Rate 27.6 mL/min (>60) 30.7 mL/min (>60) Glucose Level 100 MG/DL (74-106) 110 MG/DL (74-106) Calcium Level 7.7 MG/DL (8.5-10.1) 7.3 MG/DL (8.5-10.1) Total Bilirubin 0.3 MG/DL (0.2-1.0) Aspartate Amino Transf (AST/SGOT) 36 U/L (15-37) Alanine Aminotransferase (ALT/SGPT) 17 U/L (12-78) Alkaline Phosphatase 117 U/L (46-116) C-Reactive Protein, Quantitative 8.2 mg/dL (0.00-0.90) Total Protein 6.1 G/DL (6.4-8.2) Albumin 1.2 G/DL (3.4-5.0) Globulin 4.9 g/dL Albumin/Globulin Ratio 0.2 (1.0-2.7) Lipase 92 U/L (73-393) Objective: GENERAL: The patient is an ill-appearing male, significantly debilitated. HEENT: Negative. NECK: Tracheostomy is midline. LUNGS: Coarse breath sounds. moderate; no wheeze CARDIAC: S1, S2. regular rate and rhythm without murmurs. ABDOMEN: Soft. G-tube in place. no distention EXTREMITIES: With contractures. No edema. no CC SKIN: Multiple pressure ulcers noted. Neuro poorly responsive Mansoor Martinez MD Apr 08, 2020 09:25
[2020-04-08] MEDS ORDERED: COLISTIN150 MG INH (09:28)
[2020-04-08] MEDS ORDERED: ZOSYN 3.373.375 GM/5 IV (09:28)
--- NOTE | 2020-04-08 09:39 | NUR ---
DISCHARGE PLANNING PATIENT HAS BEEN REFERRED BACK TO [facility] P: [phone] F: [phone] Addendum: 04/08/20 at 1148 by JERMAIN PULLIAM LVN LVN PER BEATRIZ, PATIENT WILL ADMIT TO ROOM 216 [facility] TRANSPORTATION SCHEDULED WITH [facility] EXT 5331 WITH ETA @ 3000
--- NOTE | 2020-04-08 11:44 | General Progress Note ---
Subjective ROS Limited/Unobtainable: No Constitutional: Reports: malaise, weakness HEENT: Reports: no symptoms Cardiovascular: Reports: no symptoms Respiratory: Reports: cough, sputum Gastrointestinal/Abdominal: Reports: difficulty swallowing Genitourinary: Reports: no symptoms Neurologic/Psychiatric: Reports: pre-existing deficit, seizure Endocrine: Reports: no symptoms Hematologic/Lymphatic: Reports: anemia Allergies: Coded Allergies: No Known Allergies (Unverified , 02/23/12) All Systems: reviewed and negative except above Subjective No overnight events. Stable on the ventilator. Mild secretions and congestion noted. Cultures reviewed. Remains on IV antibiotic therapy. Tolerating G-tube feeds. Poorly responsive at baseline no reports of seizures Objective Last 24 Hour Vital Signs Date Time Temp Pulse Resp B/P (MAP) Pulse Ox O2 Delivery O2 Flow Rate FiO2 04/08/20 08:00 Mechanical Ventilator 04/08/20 08:00 70 04/08/20 08:00 30 04/08/20 08:00 98.2 70 37 158/84 (108) 99 04/08/20 07:54 76 29 30 04/08/20 04:00 97.7 72 26 127/81 (96) 100 04/08/20 04:00 Mechanical Ventilator 04/08/20 04:00 30 04/08/20 03:54 72 04/08/20 03:02 69 34 30 04/08/20 00:00 97.6 62 26 127/81 (96) 100 04/08/20 00:00 Mechanical Ventilator 04/07/20 23:57 81 04/07/20 23:26 65 30 100 Mechanical Ventilator 30 67 30 30 04/07/20 20:00 30 04/07/20 20:00 97.7 60 26 140/53 (82) 100 04/07/20 20:00 Mechanical Ventilator 04/07/20 19:23 66 04/07/20 19:21 63 30 30 04/07/20 16:00 97.7 71 34 153/81 (105) 100 04/07/20 16:00 Mechanical Ventilator 04/07/20 16:00 30 04/07/20 15:29 68 04/07/20 15:20 70 30 30 04/07/20 12:00 30 04/07/20 12:00 97.7 64 32 149/99 (116) 100 10/9/20 12:00 Mechanical Ventilator Intake and Output 10/9/20 10/10/20 19:00 07:00 Intake Total 2560.041 ml 2633.5 ml Output Total 1200 ml 1400 ml Balance 1360.041 ml 1233.5 ml Intake Free Water 40 ml 100 ml IV Total 1970.041 ml 1933.5 ml Tube Feeding 550 ml 600 ml Output Urine Total 1200 ml 1400 ml # Bowel Movements 3 3 Height (Feet): 5 Height (Inches): 4.00 Weight (Pounds): 139 Objective General Appearance: WD/WN, lethargic, confused EENT: normal ENT inspection Neck: normal alignment, supple Cardiovascular: normal peripheral pulses, normal rate, regular rhythm Respiratory/Chest: chest wall non-tender, rhonchi - bilaterally Abdomen: normal bowel sounds, non tender, soft, no organomegaly Extremities: normal range of motion Edema: no edema noted Arm (L), no edema noted Arm (R) Neurologic: unresponsive, aphasia Skin: normal pigmentation Assessment/Plan Problem List: (1) Aspiration pneumonia ICD Codes: J69.0 - Pneumonitis due to inhalation of food and vomit SNOMED: 467346272 (2) Respiratory failure ICD Codes: J96.90 - Respiratory failure, unspecified, unspecified whether with hypoxia or hypercapnia SNOMED: 754873031 (3) ARF (acute renal failure) ICD Codes: N17.9 - Acute kidney failure, unspecified SNOMED: 39774276, 535488767 (4) Decubitus skin ulcer ICD Codes: L89.90 - Pressure ulcer of unspecified site, unspecified stage SNOMED: 826795617 (5) Sepsis ICD Codes: A41.9 - Sepsis, unspecified organism SNOMED: 00009839 (6) UTI (urinary tract infection) ICD Codes: N39.0 - Urinary tract infection, site not specified SNOMED: 28831797, 175535219 (7) Pneumonia ICD Codes: J18.9 - Pneumonia, unspecified organism SNOMED: 533796117 (8) HCAP (healthcare-associated pneumonia) ICD Codes: J18.9 - Pneumonia, unspecified organism SNOMED: 254726821, 483375744 (9) AUDREY (acute kidney injury) ICD Codes: N17.9 - Acute kidney failure, unspecified SNOMED: 8165345, 58907543 (10) Protein-calorie malnutrition, severe ICD Codes: E43 - Unspecified severe protein-calorie malnutrition SNOMED: 786640929, 362810280, 589704344 (11) Chronic kidney disease ICD Codes: N18.9 - Chronic kidney disease, unspecified SNOMED: 962725342, 12634049 Status: stable Assessment/Plan: cont vent support resp rx and suctioning as needed tube feeds. monitor residuals cultures reviewed abx per ID- zosyn wound care IVF monitor labs and volume status anxiolytics dvt/stress ulcer prophylaxis poor exterminator helper termite prognosis full code per Jimi Martinez MD Apr 08, 2020 11:44
[2020-04-08 12:00] VITALS: BP 149/76
[2020-04-08] MEDS ORDERED: NS 500ML ONE (12:07)
--- NOTE | 2020-04-08 12:20 | NUR ---
NURSE NOTES: [facility] and was advised to call back in 30- 1 hr. RN sup in not around.
--- NOTE | 2020-04-08 12:57 | Surgery Progress Note ---
Surgery Progress Note Subjective Additional Comments no acute events comfortable stable labs noted Objective Last 24 Hour Vital Signs Date Time Temp Pulse Resp B/P (MAP) Pulse Ox O2 Delivery O2 Flow Rate FiO2 04/08/20 12:00 Mechanical Ventilator 04/08/20 12:00 30 04/08/20 12:00 98.1 69 29 149/76 (100) 100 04/08/20 11:48 77 32 100 Mechanical Ventilator 30 74 28 04/08/20 11:47 66 04/08/20 08:00 Mechanical Ventilator 04/08/20 08:00 70 04/08/20 08:00 30 04/08/20 08:00 98.2 70 37 158/84 (108) 99 04/08/20 07:54 76 29 30 04/08/20 04:00 97.7 72 26 127/81 (96) 100 04/08/20 04:00 Mechanical Ventilator 04/08/20 04:00 30 04/08/20 03:54 72 04/08/20 03:02 69 34 30 04/08/20 00:00 97.6 62 26 127/81 (96) 100 04/08/20 00:00 Mechanical Ventilator 04/07/20 23:57 81 04/07/20 23:26 65 30 100 Mechanical Ventilator 30 67 30 30 04/07/20 20:00 30 04/07/20 20:00 97.7 60 26 140/53 (82) 100 04/07/20 20:00 Mechanical Ventilator 04/07/20 19:23 66 04/07/20 19:21 63 30 30 04/07/20 16:00 97.7 71 34 153/81 (105) 100 04/07/20 16:00 Mechanical Ventilator 04/07/20 16:00 30 04/07/20 15:29 68 04/07/20 15:20 70 30 30 I&O Intake and Output 04/07/20 04/08/20 19:00 07:00 Intake Total 2560.041 ml 2633.5 ml Output Total 1200 ml 1400 ml Balance 1360.041 ml 1233.5 ml Intake Free Water 40 ml 100 ml IV Total 1970.041 ml 1933.5 ml Tube Feeding 550 ml 600 ml Output Urine Total 1200 ml 1400 ml # Bowel Movements 3 3 Dressing: saturated Cardiovascular: RSR Respiratory: decreased breath sounds Abdomen: soft, non-tender, present bowel sounds Extremities: no tenderness, no cyanosis Plan Problems: (1) Aspiration pneumonia (2) Respiratory failure (3) ARF (acute renal failure) (4) GIB (gastrointestinal bleeding) (5) Dehydration (6) Hypokalemia (7) Hyperkalemia (8) Hypomagnesemia (9) Anemia (10) Decubitus skin ulcer Assessment & Plan: Pt presented on admission with gross contractures, Multiple Pressure Injuries, Tracheostomy. Skin Assessed under tracheal collar and no evidence of skin breakdown noted. Tear noted to urinary meatus- no exudate noted. Scrotum is erythematous with scattered satellite lesions. Large ulcer noted to R scrotal sac (L)4cm x (W)4.6cm. Base of wound is erythematous ,moist with Biofilm. Sacral DTPI with clusters of small islands of slough with surrounding maroon and indurated areas (L)8cm x (W)12cm.Mild Odor noted. Partial thickness Pressure Injury Upper/outer R buttocks(L)1.8cm x (W)1.3cm. Base of wound is moist and viable. Edges adherent to base of wound. Surrounding non-blanching erythema with scattered areas of shearing noted. Partial thickness Pressure Inferior lower R buttocks.(L)0.8cm x (W)1.2cm. Base of wound is moist and viable. Edges adherent to base of wound. Surrounding non- blanching erythema with scattered shearing noted extending into R ischial tuberosity. Clusters of small hyperpigmentation noted to L trochanteric and L ischial tuberosity. R Heel is fluctuant with scattered dry eschar and surrounding Non-Blanchable erythema.(L)6.5cm x (W)8cm. DTPI distal/lateral R foot(L)3cm x (W)3cm. Base of wound is maroon and fluctuant. dry eschar noted to tip of R 1st metatarsal with surrounding non-blanchable erythema extending dorsally and laterally of metatarsal(L)5cm x (W)1.3cm Non-Blanchable erythema that is fluctuant at base noted to dorso/lateral L 5th metatarsal(L)0.6cm x (W)0.3cm. L Heel is boggy with non-blanchable erythema laterally. Hyperpigmentation from previous wound noted at L heel. Tx.Plan: Cleanse Sacral wound with Saline. Apply TheraHoney to slough. Apply Moisture Barrier Paste periwound. Cover with Optifoam drsg. Change daily and prn. Apply Moisture Barrier Paste to Wounds R upper and lower R Buttocks. Cover each wound with Optifoam drsg. Change every 3 days and prn. Apply Zinc Oxide Paste to Scrotal Wounds TID and prn. Apply Betadine to wounds R heel and R foot . Cover with ABD Pads and wrap with Kerlix every 3 days and prn. Apply Betadine to L foot. Cover with ABD Pads and wrap with Kerlix every 3 days and prn. Cover Bony Prominences as needed with Optifoam drsgs. Reposition at least every 2hours or as tolerated. Off-load heels with pillow. 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 CURRENT TF: Nepro@45ml/hr x20 hrs ENTERAL NUTRITION RECOMMENDATIONS: Vital AF 1.2 @ 50ml/hr x 24 hrs to provide 1200ml, 1440kcal, 90g prot, 973ml free water - W/ consistently low lytes, rec TF change to Vital AF 1.2 for critical care - Start Vital AF 1.2 @30ml/hr for 6 hrs, advance as tolerated 10ml/hr q4-6 hrs to goal. - Flush per , HOB over 30 degrees ADDITIONAL RECOMMENDATIONS: 1) Calibrated bed scale wts as able-> now w/ added P200 mattress 2) Monitor renal labs and lytes 3) Wound care: When tolerating TF at goal add WILIAM BID -> rec WC eval 4) Monitor hemodynamic stability, dopamine on hold (26) AUDREY (acute kidney injury) (27) HCAP (healthcare-associated pneumonia) (28) Suspected COVID-19 virus infection (29) Colon distention Assessment & Plan: colonic distention abd mild distended tube in place ilius chronic Groundglass infiltrates noted in the right lung base. There is a denser consolidation in the posterior left lower lobe with air bronchogram. Some dependent atelectasis or infiltrates also noted posterior right lung base. Bilateral small pleural effusions noted. Images through upper abdomen degraded by streak artifact from the patient's arm position. The liver and spleen are grossly homogeneous to the extent visualized. Gallbladder is not visualized. Surgical clips in the gallbladder fossa. The pancreas is unremarkable. Adrenals are normal in morphology. There appears to be a low- density cyst in the lower pole of the left kidney. No hydronephrosis seen bilaterally. There is a G-tube in place. Small bowel loops are nondistended. There is gaseous distention of the colon. Sigmoid diverticulosis noted without sign of acute diverticulitis. The appendix is not visualized. There is a small amount of as cites in the lower abdomen/pelvis. No free air identified. No pathologic adenopathy demonstrated. Mild diffuse wall thickening of the urinary bladder noted. Question underlying cystitis. There appears to be an old fracture of the left femoral head/neck. The shaft is displaced superolaterally. There is old superior endplate depression of L1. IMPRESSION: BIBASILAR AIRSPACE DISEASE IN BOTH LUNG BASES INCLUDING RIGHT BASILAR GROUNDGLASS INFILTRATES AND DENSER CONSOLIDATION WITH AIR BRONCHOGRAMS IN THE LEFT LOWER LOBE. BILATERAL SMALL EFFUSIONS. G-TUBE IN PLACE. GASEOUS DISTENTION OF THE COLON. DIVERTICULOSIS NOTED WITHOUT SIGN OF ACUTE DIVERTICULITIS. SMALL AMOUNT OF ASCITES IN THE LOWER ABDOMEN/PELVIS. WALL THICKENING OF THE URINARY BLADDER. QUESTION UNDERLYING CYSTITIS. FRACTURE OF THE LEFT FEMORAL HEAD/NECK WHICH APPEARS OLD. LEFT FEMORAL SHAFT DISPLACED SUPEROLATERALLY. OLD SUPERIOR ENDPLATE DEPRESSION OF L1. Rehan Geronimo Apr 08, 2020 12:57
--- NOTE | 2020-04-08 14:05 | NUR ---
NURSE NOTES: called the facility for the 2nd time to give report and spoke to ALEIDA Mccarthy that the patient is coming back to their facility. Per Rn she will call me back in 5 mins, stated that she is bz at the moment to receive report.
--- NOTE | 2020-04-08 14:28 | NUR ---
NURSE NOTES: Gave report to Shari Coto @ [facility]
--- NOTE | 2020-04-08 16:24 | NUR ---
Discharge: Patient is being discharged [place] [facility] [place] [facility] [place]. Obtunded, open eyes. All medical devices such plastics and composites inspector and ID band were removed. Patient wheeled out via [facility] ambulance in stable condition.
--- NOTE | 2020-04-10 06:18 | Diagnostic Imaging Report ---
EXAM: XR Chest, 1 View CLINICAL HISTORY: F/U TECHNIQUE: Frontal view of the chest. COMPARISON: Chest x-ray dated 04/05/20 FINDINGS: Lungs: No significant change in diffuse bilateral patchy pulmonary opacities and interstitial markings, concerning for pneumonia versus pulmonary edema. Pleural space: Small left pleural effusion. Heart: Cardiomegaly. Mediastinum: Unremarkable. Bones/joints: Unremarkable. Tubes, lines and devices: Unchanged positioning of the tracheostomy tube. Telemetry leads overlie the thorax. IMPRESSION: 1. No significant change in diffuse bilateral patchy pulmonary opacities and interstitial markings, concerning for pneumonia versus pulmonary edema. 2. Small left pleural effusion. 3. Cardiomegaly.
--- NOTE | 2020-04-10 06:18 | Diagnostic Imaging Report ---
EXAM: XR Abdomen, 2 Views CLINICAL HISTORY: F/U TECHNIQUE: Frontal view of the abdomen/pelvis with upright view of the abdomen. COMPARISON: Abdominal x-rays dated 03/08/20 FINDINGS: Intraperitoneal space: No free air. Gastrointestinal tract: Diffuse gaseous distention of colonic and small bowel loops. No evidence of pneumatosis intestinalis. Bones/joints: Mild degenerative disc space loss throughout the visualized spine. Tubes, lines and devices: Percutaneous gastrostomy tube balloon and tip in the left upper quadrant stomach versus small bowel. IMPRESSION: Persistent diffuse gaseous distention of colonic and small bowel loops. This is concerning for ileus or obstruction. If there is continued concern this can be further evaluated by CT.
--- NOTE | 2020-04-10 07:51 | Discharge Summary ---
Discharge Summary Discharge Summary _ DATE OF ADMISSION: 04/04/2020 DATE OF DISCHARGE: 04/08/2020 DISCHARGED BY: Dr. Tellez REASON FOR ADMISSION: 80 years old male with past medical history of chronic respiratory failure, ventilator dependent, tracheostomy status , chronic encephalopathy, stroke, seizure disorder, paroxysmal atrial fibrillation, chronic kidney disease, anemia, was transferred from the intermediate facility due to shortness of breath and tachycardia. On evaluation in the emergency room patient was tachycardic with heart rate 133. Laboratory work-up revealed significant leukocytosis WBC 20 and anemia with hemoglobin 9.3, hematocrit 26.3. Potassium 1.4 Magnesium 1.7. BUN 69, creatinine 2.5. Stable LFT and CK. Troponin 0.06. EKG revealed sinus tachycardia , no acute ischemic changes. Chest x-ray revealed bilateral infiltrates Rapid COVID-[address] scan of the abdomen and pelvis revealed bibasilar airspace disease in both lungs bases, including right basilar groundglass infiltrate and denser consolidation with air bronchogram in the left lower lobe. Bilateral small effusion. In emergency department patient pancultured , started on empiric antibiotic. Patient also started on replacement of potassium and admitted for further management. CONSULTANTS: insulator apprentice pulmonary/critical care Dr. Martinez ID specialist Dr. Hair utility division project manager Dr. Maldonado [facility] COURSE: Patient was notably hypotensive. Pressors were on standby. Hemodynamic status was closely monitored with goal to keep mean arterial blood pressure above 65. Patient was on IV fluids . Blood pressure responded to IV fluids. Further replacement of potassium and magnesium provided. Patient received IV antibiotics. Patient was followed -up with a chest x-ray. Ventilator support and tracheostomy care provided . Pulmonary toilet provided. Blood culture revealed Staph hemolyticus. Sputum culture revealed Klebsiella pneumonia carbapenem resistant and E. coli. Antibiotic regimen optimized as per ID specialist recommendation. Blood culture with coagulase negative staph were likely contaminated , as per ID specialist recommendation. Patient will need to continue Zosyn and inhaled colistin for amount of time as indicated in medication reconciliation list to complete the course at the facility. Leukocytosis resolved, no fevers. Renal parameters and electrolytes were closely monitored, electrolytes were replaced as needed , and nephrotoxic's were avoided. Prior to discharge potassium 4.0 , creatinine from 2.5 down to 2.1. Serial troponin were followed. Second troponin 0.114. Per insulator apprentice patient likely had acute myocardial ischemia secondary to sepsis. Telemetry remained stable, no acute ischemic changes. DVT and GI prophylaxis provided. Patient presented on admission with contractures and multiply pressure injury. Wound care provided as per surgeon recommendation. Continue wound care at the facility. Strict aspiration precaution maintained. Tube feeding formula with goal rate and protein supplements provided as per registered dietitian recommendation. Seizure precaution maintained. Keppra continued. No evidence of seizure activity while in the hospital. Hemoglobin and hematocrit were closely monitored with goal to keep hemoglobin above 7. Patient was on Epogen. Prior to discharge hemoglobin 8.6 hematocrit .24.8. Noted elevated TSH. Thyroid dose was optimized. Repeat thyroid function test in 1 month. Patient clinically stabilized and was ready for discharge to the intermediate facility for continuation of care. FINAL DIAGNOSES: Sepsis Shock -recovered Electrolyte abnormalities profound hypokalemia hypomagnesemia Klebsiella, E. coli pneumonia Aspiration pneumonia Chronic respiratory failure ventilator dependent with tracheostomy status Chronic encephalopathy Acute kidney injury on chronic kidney disease Dehydration Leukocytosis-resolved Acute myocardial ischemia Chronic diastolic CHF Dysphagia, feeding by G-tube Decubitus skin ulcer, present on admission chronic Severe protein calorie malnutrition DISCHARGE MEDICATIONS: See Medication Reconciliation list. DISCHARGE INSTRUCTIONS: Patient was discharged to the intermediate facility. Follow up with medical doctor at the facility. I have been assigned to dictate discharge summary for this account. I was not involved in the patient's management. Carina Clemente NP Apr 10, 2020 07:51
== END 2020-04-08 16:20 | DRG 870 ==
LOC: EDBD 07:23 → MERGE 07:45 → EMR 07:45 → EDBEDREQ 10:56 → ICU 11:17 → 2W 04-06 19:00
PROC: 5A1955Z Respiratory Ventilation, Greater than 96 Consecutive Hours (ICD-10-PCS; 2020-04-04)
PROC: 3E03328 Introduction of Oxazolidinones into Peripheral Vein, Percutaneous Approach (ICD-10-PCS; principal; 2020-04-05)
PROC: 02HV33Z Insertion of Infusion Device into Superior Vena Cava, Percutaneous Approach (ICD-10-PCS; principal; 2020-04-05)
DX: A41.9 Sepsis, unspecified organism (principal); J69.0 Pneumonitis due to inhalation of food and vomit; R65.21 Severe sepsis with septic shock; E43 Unspecified severe protein-calorie malnutrition; G82.50 Quadriplegia, unspecified; J15.5 Pneumonia due to Escherichia coli; J15.0 Pneumonia due to Klebsiella pneumoniae; J95.851 Ventilator associated pneumonia; G93.40 Encephalopathy, unspecified; I13.0 Hypertensive heart and chronic kidney disease with heart failure and stage 1 through stage 4 chronic kidney disease, or unspecified chronic kidney disease; J96.10 Chronic respiratory failure, unspecified whether with hypoxia or hypercapnia; Z99.11 Dependence on respirator [ventilator] status; N17.9 Acute kidney failure, unspecified; I50.32 Chronic diastolic (congestive) heart failure; Z43.1 Encounter for attention to gastrostomy; E87.2 Acidosis; N39.0 Urinary tract infection, site not specified; N18.9 Chronic kidney disease, unspecified; E87.6 Hypokalemia; I51.3 Intracardiac thrombosis, not elsewhere classified; G40.909 Epilepsy, unspecified, not intractable, without status epilepticus; E83.42 Hypomagnesemia; Z43.0 Encounter for attention to tracheostomy; E86.0 Dehydration; R13.10 Dysphagia, unspecified; L89.90 Pressure ulcer of unspecified site, unspecified stage; D64.9 Anemia, unspecified; I48.0 Paroxysmal atrial fibrillation; J39.8 Other specified diseases of upper respiratory tract; M24.50 Contracture, unspecified joint; L89.156 Pressure-induced deep tissue damage of sacral region; L89.896 Pressure-induced deep tissue damage of other site; L89.312 Pressure ulcer of right buttock, stage 2
CPT/HCPCS: 36415; 36569; 71045; 74018; 74176; 76937; 80048; 80053; 80202; 82550; 82553; 82803; 83605; 83690; 83735; 84443; 84484; 85007; 85025; 85610; 85651; 85730; 86140; 87040; 87070; 87081; 87181; 87205; 93005; 94002; 94003; 94664; 96365; 96367; 99285; J7030; J7620; J8499; U0002

== ENCOUNTER 2020-05-03 13:46 | Inpatient (IN) | payer MEDICARE, MEDICAID ==
[~2020-05-03] VITALS: Ht 170.2 cm; Wt 68.0 kg
[~2020-05-03 13:46] MED LIST changes: +ACETAMINOPHEN120 MG GT; +ATIVAN1 MG GT; +CATAPRES0.1 MG GT; +COLISTIN150 MG INH; +FERROUS SU300 MG/5 M GT; +FERROUS SULFAT325 MG ORAL; +LANSOPRAZOLE30 MG GT; +LEVETIRACE500 MG/51 GT; +MULTIVITAMINS1 EAC8 ORAL; +PREVACID30 M2 ORAL; +REGLAN5 MG GT; +SYNTHROID125 MCG ORAL; +SYNTHROID150 MCG GT; +UTI-STAT L3875 MG/31 GT; +VITAMIN C250 MG ORAL; +VITAMIN C500 MG/11 GT; +ZOSYN 3.373.375 GM/5 IV
[2020-05-03 13:55] VITALS: BP 85/47
--- NOTE | 2020-05-03 14:19 | Emergency Room Report ---
History of Present Illness General Chief Complaint: Dyspnea/Respdistress Source: Medical Record Present Illness HPI Disclaimer: Please note that this report is being documented using [employer] technology. This can lead to erroneous entry secondary to incorrect interpretation by the dictating instrument. HPI: 80 years old male with past medical history of chronic respiratory failure, ventilator dependent, tracheostomy status , chronic encephalopathy, stroke, seizure disorder, paroxysmal atrial fibrillation, chronic kidney di sease, anemia presents for reported hypoxia. Patient presented from his nursing home facility, apparently was found to be hypoxic and EMS was called. On EMS arrival patient was hypotensive. Patient is nonverbal at baseline and unable to provide any history. Patient recently admitted the hospital for sepsis, bacteremia approximately 1 month ago. 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 INSERTER: Yes COVID-19 Screening: Negative COVID-19 COVID-19 Testing Source: 04/27/2020 @ [facility] Patient History Reviewed Nursing Documentation: PMH: Agreed; PSxH: Agreed Nursing Documentation-PMH Past Medical History: No History, Except For Hx Cardiac Problems: Yes - a fib, heart failure, RI Hx Hypertension: Yes Hx Diabetes: Yes Hx Cancer: No Hx Cerebrovascular Accident: Yes Hx Epilepsy: Yes Review of Systems All Other Systems: negative except mentioned in HPI Physical Exam Vital Signs Date Time Temp Pulse Resp B/P (MAP) Pulse Ox O2 Delivery O2 Flow Rate FiO2 05/03/20 13:45 97.9 98 14 85/47 (60) 99 Ambu-Bag Sp02 EP Interpretation: reviewed, other - Normal O2 saturation on 75% FiO2 General Appearance: mild distress, Chronically Ill Head: normocephalic, atraumatic Eyes: bilateral eye PERRL, bilateral eye EOMI ENT: no angioedema, moist mucus membranes Neck: supple, tracheotomy Respiratory: no wheezing, respiratory distress - Mild respiratory distress with coarse lung sounds bilaterally Cardiovascular #1: normal peripheral pulses, no murmur, tachycardia Gastrointestinal: non tender, soft, non-distended, no guarding, other - Gastrostomy tube present Musculoskeletal: other - Bilateral lower extremities contracted Neurologic: alert, other - Not oriented, nonverbal, contracted extremities, withdraws to pain, Skin: normal color, warm/dry Procedures Critical Care Time Critical Care Time Critical care is made on this patient due to presentation with healthcare associated pneumonia, hypoxia requiring my acute intervention. Critical care time is approximately 40 minutes and excludes procedures. Medical Decision Making Diagnostic Impression: Primary Impression: Ventilator associated pneumonia Additional Impressions: AUDREY (acute kidney injury) Dehydration ER Course MDM: Differential included but not limited to pneumonia, sepsis, dehydration, electrolyte disturbance to name a few Clinical course-IV inserted, IV boluses given, broad-spectrum antibiotics given. Chest x-ray demonstrated evidence of left lower lobe pneumonia. Patient has had similar x-rays in the past however currently he does have a increased oxygen requirement. He was in mild respiratory distress and tachycardic. Lactate mildly elevated. After IV fluids patient's blood pressure remained stable he did he did not require vasopressors. COVID-19 testing was negative. BUN elevated creatinine elevated. Suspect acute kidney injury. Patient also with leukocytosis of 23,000. Patient currently is a full code and does require admission to the hospital for further evaluation and treatment. Spoke with patient's primary care doctor who requested Dr. Tellez to admit who accepted the patient for admission. Patient will be admitted to the stepdown unit. Labs - Laboratory Tests Test 05/03/20 14:00 05/03/20 14:25 05/03/20 16:25 White Blood Count 23.5 K/UL (4.8-10.8) *H Red Blood Count 2.67 M/UL (4.70-6.10) L Hemoglobin 9.4 G/DL (14.2-18.0) L Hematocrit 28.9 % (42.0-52.0) L Mean Corpuscular Volume 108 FL (80-99) H Mean Corpuscular Hemoglobin 35.1 PG (27.0-31.0) H Mean Corpuscular Hemoglobin Concent 32.4 G/DL (32.0-36.0) Red Cell Distribution Width 22.6 % (11.6-14.8) H Platelet Count 274 K/UL (150-450) Mean Platelet Volume 6.4 FL (6.5-10.1) L Neutrophils (%) (Auto) % (45.0-75.0) Lymphocytes (%) (Auto) % (20.0-45.0) Monocytes (%) (Auto) % (1.0-10.0) Eosinophils (%) (Auto) % (0.0-3.0) Basophils (%) (Auto) % (0.0-2.0) Differential Total Cells Counted 100 Neutrophils % (Manual) 72 % (45-75) Lymphocytes % (Manual) 5 % (20-45) L Monocytes % (Manual) 6 % (1-10) Eosinophils % (Manual) 0 % (0-3) Basophils % (Manual) 0 % (0-2) Band Neutrophils 17 % (0-8) H Platelet Estimate Adequate Platelet Morphology Normal Polychromasia 1+ Anisocytosis 2+ Macrocytosis 2+ Prothrombin Time 14.1 SEC (9.30-11.50) H Prothrombin Time INR 1.3 (0.9-1.1) H Activated Partial Thromboplast Time 33 SEC (23-33) Sodium Level 136 MMOL/L (136-145) Potassium Level 3.0 MMOL/L (3.5-5.1) L Chloride Level 103 MMOL/L (98-107) Carbon Dioxide Level 22 MMOL/L (21-32) Anion Gap 11 mmol/L (5-15) Blood Urea Nitrogen 120 mg/dL (7-18) H Creatinine 3.8 MG/DL (0.55-1.30) H Estimated Glomerular Filtration Rate 15.5 mL/min (>60) Glucose Level 117 MG/DL (74-106) H Lactic Acid Level 2.20 mmol/L (0.4-2.0) H 2.10 mmol/L (0.66-2.22) Calcium Level 9.7 MG/DL (8.5-10.1) Magnesium Level 2.7 MG/DL (1.8-2.4) H Total Bilirubin 0.3 MG/DL (0.2-1.0) Aspartate Amino Transferase (AST) 26 U/L (15-37) Alanine Aminotransferase (ALT) < 6 U/L (12-78) L Alkaline Phosphatase 205 U/L (46-116) H Total Creatine Kinase 21 U/L (26-308) L Creatine Kinase MB 0.8 NG/ML (0.0-3.6) Creatine Kinase MB Relative Index 3.8 Troponin I 0.159 ng/mL (0.000-0.056) Total Protein 7.7 G/DL (6.4-8.2) Albumin 1.5 G/DL (3.4-5.0) L Globulin 6.2 g/dL Albumin/Globulin Ratio 0.2 (1.0-2.7) L Arterial Blood pH 7.202 (7.350-7.450) Arterial Blood Partial Pressure CO2 53.4 mmHg (35.0-45.0) H Arterial Blood Partial Pressure O2 87.6 mmHg (75.0-100.0) Arterial Blood HCO3 20.5 mmol/L (22.0-26.0) L Arterial Blood Oxygen Saturation 95.4 % (95-100) Arterial Blood Base Excess -7.4 (-2-2) L Urbano Test Positive Microbiology Date/Time Source Procedure Growth Status 05/03/20 14:00 Nasopharynx SARS-CoV-2 RdRp Gene Assay - Final Complete EKG Diagnostic Results Rate: tachycardiac Rhythm: other - Sinus tachycardia Other Impression Left atrial enlargement, left axis deviation, Chest X-Ray Diagnostic Results Chest X-Ray Diagnostic Results : Chest X-Ray Ordered: Yes # of Views/Limited/Complete: 1 View Indication: Shortness of Breath EP Interpretation: Yes Interpretation: other - Bilateral airspace disease left worse than right, left pleural effusion, pneumothorax Last Vital Signs Date Time Temp Pulse Resp B/P (MAP) Pulse Ox O2 Delivery O2 Flow Rate FiO2 05/03/20 13:45 97.9 98 14 85/47 (60) 99 Ambu-Bag Disposition: ADMITTED INPATIENT Condition: Serious Referrals: Mansoor Martinez MD (PCP) Brett Perez M.D. May 03, 2020 14:19
[2020-05-03 14:39] LABS: HEMATOCRIT 28.9 % (42.0-52.0); HEMOGLOBIN 9.4 G/DL (14.2-18.0); MEAN CORPUSCULAR VOLUME 108 FL (80-99); PLATELET COUNT 274 K/UL (150-450); RED BLOOD COUNT 2.67 M/UL (4.70-6.10); RED CELL DISTRIBUTION WIDTH 22.6 % (11.6-14.8)
[2020-05-03 14:41] LABS: WHITE BLOOD COUNT 23.5 K/UL (4.8-10.8)
[2020-05-03 14:55] LABS: ANION GAP 11 mmol/L (5-15); BLOOD UREA NITROGEN 120 mg/dL (7-18); CALCIUM 9.7 MG/DL (8.5-10.1); CARBON DIOXIDE 22 MMOL/L (21-32); CHLORIDE 103 MMOL/L (98-107); CREATININE 3.8 MG/DL (0.55-1.30); SODIUM 136 MMOL/L (136-145)
[2020-05-03 14:58] LABS: INR 1.3 (0.9-1.1)
[2020-05-03 15:09] LABS: ALANINE AMINOTRANSFERASE < 6 U/L (12-78); ALBUMIN 1.5 G/DL (3.4-5.0); ALBUMIN/GLOBULIN RATIO 0.2 (1.0-2.7); ALKALINE PHOSPHATASE 205 U/L (46-116); ASPARTATE AMINO TRANSFERASE 26 U/L (15-37); BILIRUBIN,TOTAL 0.3 MG/DL (0.2-1.0); CKMB 0.8 NG/ML (0.0-3.6); CREATINE KINASE 21 U/L (26-308)
[2020-05-03] MEDS ORDERED: Vancomycin 1 GM in NS 275 ML IVPB ONE (15:15)
[2020-05-03] MEDS ORDERED: Piperacillin/Tazobactam 3.375 GM in NS 110 ML IVPB ONE (15:15)
[2020-05-03 15:59] VITALS: BP 114/87
--- NOTE | 2020-05-03 16:28 | Diagnostic Imaging Report ---
Indication: Shortness of breath Technique: One view of the chest Comparison: 04/08/2020 Findings: Lateral interstitial and airspace disease is again demonstrated, appears similar to the prior exam. Left pleural effusion appears similar to the prior exam. Tracheostomy again demonstrated Impression: Bilateral interstitial and airspace disease. This appears similar prior exam of 04/08/2020, may represent chronic changes versus recurrent acute disease. Recurrent versus persistent left pleural effusion.
--- NOTE | 2020-05-03 16:50 | Consultation ---
Consult Note Consult Note 80-year-old male, who presents with acute deterioration in the assisted and was diagnosed with possible sepsis and pneumonia. The patient was brought in for respiratory failure, recurrent sepsis, and electrolyte abnormality. The patient has had chronic long-term multiorgan dysfunction and overall with chronic care. The patient is fully dependent and fully bedbound at the nursing facility. The patient's care discussed and reviewed. The patient with multitude of medical problems in the past and has had recurrent admissionts PAST MEDICAL HISTORY: Respiratory failure chronic, tracheostomy, aspiration pneumonia, acute on chronic renal failure, multiple pressure ulcers, multiple fractures, transaminitis, chronic kidney disease, and tracheal stenosis. prior sepsis and electrolyte imbalance MEDICATIONS: Reviewed. ALLERGIES: Reviewed. SOCIAL HISTORY: The patient resides at [facility]. Nonsmoker and nondrinker. REVIEW OF SYSTEMS: unable PHYSICAL EXAMINATION: GENERAL: The patient is an ill-appearing male, significantly debilitated. HEENT: Negative. NECK: Tracheostomy is midline. LUNGS: Coarse breath sounds. moderate air entry CARDIAC: S1, S2. RRR without MRG ABDOMEN: Soft. G-tube in place. no distention EXTREMITIES: With contractures. No edema. SKIN: Multiple pressure ulcers noted. Laboratory Tests Test 05/03/20 14:00 05/03/20 14:25 05/03/20 16:25 White Blood Count 23.5 K/UL (4.8-10.8) *H Red Blood Count 2.67 M/UL (4.70-6.10) L Hemoglobin 9.4 G/DL (14.2-18.0) L Hematocrit 28.9 % (42.0-52.0) L Mean Corpuscular Volume 108 FL (80-99) H Mean Corpuscular Hemoglobin 35.1 PG (27.0-31.0) H Mean Corpuscular Hemoglobin Concent 32.4 G/DL (32.0-36.0) Red Cell Distribution Width 22.6 % (11.6-14.8) H Platelet Count 274 K/UL (150-450) Mean Platelet Volume 6.4 FL (6.5-10.1) L Neutrophils (%) (Auto) % (45.0-75.0) Lymphocytes (%) (Auto) % (20.0-45.0) Monocytes (%) (Auto) % (1.0-10.0) Eosinophils (%) (Auto) % (0.0-3.0) Basophils (%) (Auto) % (0.0-2.0) Differential Total Cells Counted 100 Neutrophils % (Manual) 72 % (45-75) Lymphocytes % (Manual) 5 % (20-45) L Monocytes % (Manual) 6 % (1-10) Eosinophils % (Manual) 0 % (0-3) Basophils % (Manual) 0 % (0-2) Band Neutrophils 17 % (0-8) H Platelet Estimate Adequate Platelet Morphology Normal Polychromasia 1+ Anisocytosis 2+ Macrocytosis 2+ Prothrombin Time 14.1 SEC (9.30-11.50) H Prothromb Time International Ratio 1.3 (0.9-1.1) H Activated Partial Thromboplast Time 33 SEC (23-33) Sodium Level 136 MMOL/L (136-145) Potassium Level 3.0 MMOL/L (3.5-5.1) L Chloride Level 103 MMOL/L (98-107) Carbon Dioxide Level 22 MMOL/L (21-32) Anion Gap 11 mmol/L (5-15) Blood Urea Nitrogen 120 mg/dL (7-18) H Creatinine 3.8 MG/DL (0.55-1.30) H Estimat Glomerular Filtration Rate 15.5 mL/min (>60) Glucose Level 117 MG/DL (74-106) H Lactic Acid Level 2.20 mmol/L (0.4-2.0) H Pending Calcium Level 9.7 MG/DL (8.5-10.1) Magnesium Level 2.7 MG/DL (1.8-2.4) H Total Bilirubin 0.3 MG/DL (0.2-1.0) Aspartate Amino Transf (AST/SGOT) 26 U/L (15-37) Alanine Aminotransferase (ALT/SGPT) < 6 U/L (12-78) L Alkaline Phosphatase 205 U/L (46-116) H Total Creatine Kinase 21 U/L (26-308) L Creatine Kinase MB 0.8 NG/ML (0.0-3.6) Creatine Kinase MB Relative Index 3.8 Troponin I 0.159 ng/mL (0.000-0.056) Total Protein 7.7 G/DL (6.4-8.2) Albumin 1.5 G/DL (3.4-5.0) L Globulin 6.2 g/dL Albumin/Globulin Ratio 0.2 (1.0-2.7) L Arterial Blood pH 7.202 (7.350-7.450) Arterial Blood Partial Pressure CO2 53.4 mmHg (35.0-45.0) H Arterial Blood Partial Pressure O2 87.6 mmHg (75.0-100.0) Arterial Blood HCO3 20.5 mmol/L (22.0-26.0) L Arterial Blood Oxygen Saturation 95.4 % (95-100) Arterial Blood Base Excess -7.4 (-2-2) L Urbano Test Positive IMPRESSION: Respiratory failure chronic, chronic encephalopathy, sepsis, leukocytosis, G-tube, aspiration, acute on chronic renal failure, electrolyte abnormality, failure to thrive, severe protein-calorie malnutrition, chronic CO2 retention RECOMMENDATIONS: Supportive care. IV antibiotics and check Panculture. Respiratory support and vent management. Feedings. Resume assisted medications. Monitor clinically. Prognosis is overall poor. monitor labs renal ID cardiology to see Care discussed and reviewed. impression, plan, and exam edited and reviewed in detail care discussed with Mansoor Bonilla MD May 03, 2020 16:50
--- NOTE | 2020-05-03 16:50 | Pulmonology Progress Note ---
Subjective Allergies: Coded Allergies: No Known Allergies (Unverified , 02/23/12) Objective Last 24 Hour Vital Signs Date Time Temp Pulse Resp B/P (MAP) Pulse Ox O2 Delivery O2 Flow Rate FiO2 05/03/20 15:59 98.0 130 32 114/87 96 Mechanical Ventilator 75 05/03/20 14:41 99 37 75 05/03/20 13:55 97.9 14 85/47 99 Ambu-Bag 05/03/20 13:55 98 14 Mechanical Ventilator 75 05/03/20 13:45 97.9 98 14 85/47 (60) 99 Ambu-Bag Microbiology Date/Time Source Procedure Growth Status 05/03/20 14:00 Nasopharynx SARS-CoV-2 RdRp Gene Assay - Final Complete Laboratory Tests 05/03/20 14:00: White Blood Count 23.5*H, Red Blood Count 2.67L, Hemoglobin 9.4L, Hematocrit 28.9L, Mean Corpuscular Volume 108H, Mean Corpuscular Hemoglobin 35.1H, Mean Corpuscular Hemoglobin Concent 32.4, Red Cell Distribution Width 22.6H, Platelet Count 274, Mean Platelet Volume 6.4L, Neutrophils (%) (Auto) , Lymphocytes (%) (Auto) , Monocytes (%) (Auto) , Eosinophils (%) (Auto) , Basophils (%) (Auto) , Differential Total Cells Counted 100, Neutrophils % (Manual) 72, Lymphocytes % (Manual) 5L, Monocytes % (Manual) 6, Eosinophils % (Manual) 0, Basophils % (Manual) 0, Band Neutrophils 17H, Platelet Estimate Adequate, Platelet Morphology Normal, Polychromasia 1+, Anisocytosis 2+, Macrocytosis 2+, Prothrombin Time 14.1H, Prothromb Time International Ratio 1.3H, Activated Partial Thromboplast Time 33, Sodium Level 136, Potassium Level 3.0L, Chloride Level 103, Carbon Dioxide Level 22, Anion Gap 11, Blood Urea Nitrogen 120H, Creatinine 3.8H, Estimat Glomerular Filtration Rate 15.5, Glucose Level 117H, Lactic Acid Level 2.20H, Calcium Level 9.7, Magnesium Level 2.7H, Total Bilirubin 0.3, Aspartate Amino Transf (AST/SGOT) 26, Alanine Aminotransferase (ALT/SGPT) < 6L, Alkaline Phosphatase 205H, Total Creatine Kinase 21L, Creatine Kinase MB 0.8, Creatine Kinase MB Relative Index 3.8, Troponin I 0.159H, Total Protein 7.7, Albumin 1.5L, Globulin 6.2, Albumin/Globulin Ratio 0.2L 05/03/20 14:25: Arterial Blood pH 7.202*L, Arterial Blood Partial Pressure CO2 53.4H, Arterial Blood Partial Pressure O2 87.6, Arterial Blood HCO3 20.5L, Arterial Blood Oxygen Saturation 95.4, Arterial Blood Base Excess -7.4L, Urbano Test Positive 05/03/20 16:25: Lactic Acid Level [Pending] Mansoor Martinez MD May 03, 2020 16:50
[2020-05-03 20:00] VITALS: BP 118/83
[2020-05-03] MEDS: levETIRAcetam 500mg/5ml Liquid GT SCH (21:49)
[2020-05-03] MEDS: NS w/KCl 20mEq 1000ml 1,000 ML IV SCH (21:51)
[2020-05-03] MEDS ORDERED: Piperacillin/Tazobactam 3.375 GM in NS 110 ML IVPB SCH (22:00)
[2020-05-03] MEDS: Zosyn 2.25 gm in D5W 55ml IV SCH (22:08)
--- NOTE | 2020-05-03 23:15 | Consultation ---
DATE OF CONSULTATION: 05/03/2020 CARDIOLOGY CONSULTATION CONSULTING PHYSICIAN: Franko Pineda MD REFERRING PHYSICIAN: Jimi Tellez MD REASON FOR CONSULTATION: Elevated troponin level. HISTORY OF PRESENT ILLNESS: This 80-year-old male who has cerebrovascular disease and ventilator-dependent respiratory failure was transferred for evaluation of presumed sepsis. In the emergency room, he was noted to have fevers, abnormal laboratory studies including an elevated troponin level, and cardiology consult has been requested for further care. The patient is nonverbal and records are reviewed from prior hospitalizations here as well as his prison facility chart from [facility]. PAST MEDICAL HISTORY: 1. Respiratory failure. 2. Tracheostomy. 3. Chronic kidney disease. 4. Protein-calorie malnutrition. 5. Multiple fractures. 6. History of tracheal stenosis. 7. History of congestive heart failure. 8. Seizure disorder. 9. Hypothyroidism. 10. Advanced dementia. 11. Paroxysmal atrial fibrillation. 12. History of myocardial infarction. 13. Type 2 diabetes mellitus. MEDICATIONS: Prior to admission, reviewed and reconciled. ALLERGIES: None known. SOCIAL HISTORY: Not obtainable. FAMILY HISTORY: Noncontributory. REVIEW OF SYSTEMS: Cannot be obtained. 25 minutes time spent reviewing records as described above and pertinent data has been outlined. PHYSICAL EXAMINATION: VITAL SIGNS: Afebrile, blood pressure 85/47, heart rate 98, respirations 14. GENERAL: Ill-appearing, noncommunicative, poor eye contact. HEENT: Temporal wasting. Secretions from trach are thick. LUNGS: With bilateral rhonchi. CARDIAC: Regular rhythm. Rapid rate. Normal S1, S2. A 1/6 systolic murmur faintly heard over the base. ABDOMEN: Soft. EXTREMITIES: With contractures and trace dependent edema. Capillary refill is slightly decreased. LABORATORY DATA: White count 23.5, hemoglobin 9.4, platelets 274. Sodium 136, potassium 3, chloride 103, bicarb 22, BUN 120, creatinine 3.8, glucose 117. Lactic acid 2.2, repeated 2.1. ABG 7.20, 53, 87. Chest x-ray with bilateral airspace disease, left greater than right, small left pleural effusion, and possible pneumothorax. EKG with sinus tachycardia, left atrial enlargement, and nonspecific ST change. Troponin 0.159. Albumin 1.5. IMPRESSION: 1. Sepsis. 2. Shock. 3. Hypovolemia. 4. Acute myocardial ischemia and possible [id number] myocardial infarction. 5. Hypokalemia. 6. Leukocytosis. 7. Healthcare-associated pneumonia. 8. Lactic acidosis. 9. Respiratory failure. 10. Acute on chronic respiratory acidosis. 11. Severe protein-calorie malnutrition. 12. Acute on chronic renal failure. PLAN: 1. Volume resuscitation. 2. Potassium replacement. 3. Empiric antimicrobials. 4. Ventilator support. 5. May need pressors if blood pressure drops further. 6. Serial lactic acid and troponin levels. 7. Protein supplement by feeding tube. 8. DVT prophylaxis. 9. Antiplatelet therapy. 10. Continue antiseizure regimen. 11. Check thyroid function. Franko Pineda M.D. DR: CELINE JOB#: [id number] CC:
[2020-05-04] VITALS (37 sets, daily range): BP systolic 64–114; BP diastolic 32–68
[2020-05-04 02:44] LABS: HEMATOCRIT 23.9 % (42.0-52.0); HEMOGLOBIN 7.7 G/DL (14.2-18.0); MEAN CORPUSCULAR VOLUME 107 FL (80-99); PLATELET COUNT 239 K/UL (150-450); RED BLOOD COUNT 2.23 M/UL (4.70-6.10); RED CELL DISTRIBUTION WIDTH 22.5 % (11.6-14.8); WHITE BLOOD COUNT 18.7 K/UL (4.8-10.8)
[2020-05-04] MEDS: Norepinephrine 4mg/NS Premix 250 ML IV SCH ×2 (02:48→14:50)
[2020-05-04 02:54] LABS: INR 1.3 (0.9-1.1)
[2020-05-04 03:27] LABS: ALANINE AMINOTRANSFERASE < 6 U/L (12-78); ALBUMIN 1.4 G/DL (3.4-5.0); ALBUMIN/GLOBULIN RATIO 0.3 (1.0-2.7); ALKALINE PHOSPHATASE 142 U/L (46-116); ANION GAP 11 mmol/L (5-15); ASPARTATE AMINO TRANSFERASE 16 U/L (15-37); BILIRUBIN,TOTAL 0.4 MG/DL (0.2-1.0); BLOOD UREA NITROGEN 129 mg/dL (7-18); CALCIUM 9.4 MG/DL (8.5-10.1); CARBON DIOXIDE 22 MMOL/L (21-32); CHLORIDE 105 MMOL/L (98-107); CREATININE 4.2 MG/DL (0.55-1.30); SODIUM 138 MMOL/L (136-145)
[2020-05-04 03:31] LABS: POTASSIUM 2.6 MMOL/L (3.5-5.1)
--- NOTE | 2020-05-04 04:23 | Diagnostic Imaging Report ---
EXAM: XR Chest, 1 View CLINICAL HISTORY: LINE TECHNIQUE: Frontal view of the chest. COMPARISON: Chest x-ray 05/03/2020 FINDINGS: Lungs: Redemonstrated interstitial and airspace opacities left greater than right, unchanged. Pleural space: Small left pleural effusion. Heart: Unremarkable. No cardiomegaly. Bones/joints: Unremarkable. Tubes, lines and devices: Interval placement of a right IJ central line which terminates within the right atrium. Unchanged positioning of the tracheostomy cannula. IMPRESSION: 1. Interval placement of a right IJ central line which terminates within the right atrium. 2. Redemonstrated interstitial and airspace opacities left greater than right, unchanged. 3. Small left pleural effusion.
[2020-05-04] MEDS: Zosyn 2.25 gm in D5W 55ml IV SCH ×3 (05:16→22:16)
--- NOTE | 2020-05-04 05:37 | Emergency Room Report ---
History of Present Illness General Chief Complaint: Dyspnea/Respdistress Source: Medical Record Present Illness HPI This patient was admitted to stepdown unit for HCAP. He has a tracheostomy and feeding tube. He is very contracted. I was called to place a central line because he became hypotensive and require pressors. Allergies: Coded Allergies: No Known Allergies (Unverified , 02/23/12) COVID-19 Screening Contact w/high risk pt: Yes Recent Travel to affected area: No Experienced COVID-19 symptoms?: No COVID-19 symptoms experienced: Shortness of Breath COVID-19 Testing performed [place] [employer]: Yes COVID-19 Screening: Negative COVID-19 COVID-19 Testing Source: 04/27/2020 @ [facility] Nursing Documentation-PMH Past Medical History: No History, Except For Hx Cardiac Problems: Yes - a fib, heart failure, MD Hx Hypertension: Yes Hx Diabetes: Yes Hx Cancer: No Hx Cerebrovascular Accident: Yes Hx Epilepsy: Yes Physical Exam Vital Signs Date Time Temp Pulse Resp B/P (MAP) Pulse Ox O2 Delivery O2 Flow Rate FiO2 05/03/20 06:45 104 05/03/20 13:45 97.9 14 85/47 (60) 99 Ambu-Bag 05/03/20 13:55 75 Procedures Central Line Central Line : Consent: Emergent Central Line Lumen: triple Maximal Sterile Barrier Tech: yes cap, yes mask, yes sterile gown, yes sterile gloves, yes large sterile sheet, yes hand hygiene, yes chlorhexidine prep Central Line Postion: internal jugular (R) US Guided Line?: Yes Vessel visualized with U/S: Right Internal Jugular Ultrasound Findings: Collapsible Vessel, Visualize vessel puncture Complications: none Central Line Post Position: sutured, good blood return, position confirmed w/ CXR Attempts: One Patient Tolerated: Well Complications: None Medical Decision Making Diagnostic Impression: Primary Impression: Ventilator associated pneumonia Additional Impressions: AUDREY (acute kidney injury) Dehydration ER Course Patient has sepsis with septic shock. Central line placed for pressors. Chest X-Ray Diagnostic Results Chest X-Ray Diagnostic Results : Chest X-Ray Ordered: Yes # of Views/Limited/Complete: 1 View Indication: Shortness of Breath EP Interpretation: Yes Interpretation: no effusion, no pneumothorax, other - Bilateral infiltrate Impression: Other - Status post triple-lumen. No pneumothorax. Electronically Signed by: Gonzales Russell MD Last Vital Signs Date Time Temp Pulse Resp B/P (MAP) Pulse Ox O2 Delivery O2 Flow Rate FiO2 05/04/20 04:00 97.6 93 29 99/59 (72) 100 05/04/20 04:00 Mechanical Ventilator 05/04/20 04:00 75 Status: improved Disposition: ADMITTED INPATIENT Condition: Critical Referrals: Mansoor Martinez MD (PCP) Gonzales Russell MD May 04, 2020 05:36
--- NOTE | 2020-05-04 08:39 | Critical Care Progress Note ---
Assessment/Plan Assessment/Plan IMPRESSION: Respiratory failure chronic, chronic encephalopathy, sepsis, leukocytosis, G-tube, aspiration, acute on chronic renal failure, electrolyte abnormality, failure to thrive, severe protein-calorie malnutrition, chronic CO2 retention; Hypoxemia RECOMMENDATIONS: Supportive care. IV antibiotics and check Panculture. Respiratory support and vent management- taper oxygen needs pending ABG. Feedings. Reviewed long term medications. Monitor clinically. Prognosis is overall poor. monitor labs and adjust therapy renal ID cardiology medications/laboratory data/nursing notes/ICU care reviewed in detail note reviewed and edited care discussed with RN and RT ICU time spent >40 minutes Critical Care - Subjective Interval Events: deterioration overnight care reviewed on 100% vitals noted ICU care discussed ROS Limited/Unobtainable: Yes Condition: critical EKG Rhythm: Sinus Rhythm Residuals: minimal Tube Feeding Tolerated: yes I&O: Intake and Output 05/03/20 05/04/20 19:00 07:00 Intake Total 2510 ml 1139.5 ml Output Total 250 ml Balance 2510 ml 889.5 ml Intake Oral 0 ml IV Total 2510 ml 1139.5 ml Output Gastric Drainage Total 250 ml # Voids 100 # Bowel Movements 3 Critical Care - Objective Last 24 Hour Vital Signs Date Time Temp Pulse Resp B/P (MAP) Pulse Ox O2 Delivery O2 Flow Rate FiO2 05/04/20 08:00 87 05/04/20 08:00 100 05/04/20 08:00 97.7 86 29 98/58 (71) 97 05/04/20 07:30 89 29 100/54 (69) 100 05/04/20 07:10 80 28 100 05/04/20 07:00 87 27 101/59 (73) 100 05/04/20 06:00 89 28 93/49 (64) 100 05/04/20 05:35 85 24 100 05/04/20 05:00 95 28 109/59 (76) 100 05/04/20 04:00 97.6 93 29 99/59 (72) 100 05/04/20 04:00 Mechanical Ventilator 05/04/20 04:00 75 05/04/20 03:33 94 05/04/20 03:05 103 30 100 05/04/20 03:00 101 29 84/39 (54) 100 05/04/20 03:00 100 05/04/20 02:59 106 22 100 05/04/20 02:48 75/44 05/04/20 02:40 Mechanical Ventilator 05/04/20 02:38 101 05/04/20 02:00 98.0 101 29 84/39 (54) 100 05/04/20 00:53 116 37 75 05/04/20 00:00 Mechanical Ventilator 05/04/20 00:00 75 05/04/20 00:00 97.9 102 22 90/58 (69) 100 05/03/20 23:28 111 05/03/20 22:54 105 36 75 05/03/20 20:51 92 36 75 05/03/20 20:00 97.7 106 22 118/83 (95) 99 05/03/20 20:00 75 05/03/20 20:00 Mechanical Ventilator 05/03/20 19:30 Mechanical Ventilator 05/03/20 19:06 107 31 75 05/03/20 19:06 102 05/03/20 17:39 111 31 100 Mechanical Ventilator 75 05/03/20 17:39 111 31 75 05/03/20 17:22 98.6 118 23 125/76 98 Mechanical Ventilator 75 05/03/20 15:59 98.0 130 32 114/87 96 Mechanical Ventilator 75 05/03/20 14:41 99 37 75 05/03/20 14:41 75 05/03/20 13:55 97.9 14 85/47 99 Ambu-Bag 05/03/20 13:55 98 14 Mechanical Ventilator 75 05/03/20 13:45 97.9 98 14 85/47 (60) 99 Ambu-Bag Labs: Labs Test 05/03/20 14:00 05/03/20 14:25 05/03/20 16:25 05/03/20 21:55 White Blood Count 23.5 K/UL (4.8-10.8) Red Blood Count 2.67 M/UL (4.70-6.10) Hemoglobin 9.4 G/DL (14.2-18.0) Hematocrit 28.9 % (42.0-52.0) Mean Corpuscular Volume 108 FL (80-99) Mean Corpuscular Hemoglobin 35.1 PG (27.0-31.0) Mean Corpuscular Hemoglobin Concent 32.4 G/DL (32.0-36.0) Red Cell Distribution Width 22.6 % (11.6-14.8) Platelet Count 274 K/UL (150-450) Mean Platelet Volume 6.4 FL (6.5-10.1) Neutrophils (%) (Auto) % (45.0-75.0) Lymphocytes (%) (Auto) % (20.0-45.0) Monocytes (%) (Auto) % (1.0-10.0) Eosinophils (%) (Auto) % (0.0-3.0) Basophils (%) (Auto) % (0.0-2.0) Differential Total Cells Counted 100 Neutrophils % (Manual) 72 % (45-75) Lymphocytes % (Manual) 5 % (20-45) Monocytes % (Manual) 6 % (1-10) Eosinophils % (Manual) 0 % (0-3) Basophils % (Manual) 0 % (0-2) Band Neutrophils 17 % (0-8) Platelet Estimate Adequate Platelet Morphology Normal Polychromasia 1+ Anisocytosis 2+ Macrocytosis 2+ Prothrombin Time 14.1 SEC (9.30-11.50) Prothromb Time International Ratio 1.3 (0.9-1.1) Activated Partial Thromboplast Time 33 SEC (23-33) Sodium Level 136 MMOL/L (136-145) Potassium Level 3.0 MMOL/L (3.5-5.1) Chloride Level 103 MMOL/L (98-107) Carbon Dioxide Level 22 MMOL/L (21-32) Anion Gap 11 mmol/L (5-15) Blood Urea Nitrogen 120 mg/dL (7-18) Creatinine 3.8 MG/DL (0.55-1.30) Estimat Glomerular Filtration Rate 15.5 mL/min (>60) Glucose Level 117 MG/DL (74-106) Lactic Acid Level 2.20 mmol/L (0.4-2.0) 2.10 mmol/L (0.66-2.22) Calcium Level 9.7 MG/DL (8.5-10.1) Magnesium Level 2.7 MG/DL (1.8-2.4) Total Bilirubin 0.3 MG/DL (0.2-1.0) Aspartate Amino Transf (AST/SGOT) 26 U/L (15-37) Alanine Aminotransferase (ALT/SGPT) < 6 U/L (12-78) Alkaline Phosphatase 205 U/L (46-116) Total Creatine Kinase 21 U/L (26-308) Creatine Kinase MB 0.8 NG/ML (0.0-3.6) Creatine Kinase MB Relative Index 3.8 Troponin I 0.159 ng/mL (0.000-0.056) Total Protein 7.7 G/DL (6.4-8.2) Albumin 1.5 G/DL (3.4-5.0) Globulin 6.2 g/dL Albumin/Globulin Ratio 0.2 (1.0-2.7) Arterial Blood pH 7.202 (7.350-7.450) 7.224 (7.350-7.450) Arterial Blood Partial Pressure CO2 53.4 mmHg (35.0-45.0) 52.3 mmHg (35.0-45.0) Arterial Blood Partial Pressure O2 87.6 mmHg (75.0-100.0) 90.4 mmHg (75.0-100.0) Arterial Blood HCO3 20.5 mmol/L (22.0-26.0) 21.1 mmol/L (22.0-26.0) Arterial Blood Oxygen Saturation 95.4 % (95-100) 96.4 % (95-100) Arterial Blood Base Excess -7.4 (-2-2) -6.4 (-2-2) U[place]ano Test Positive Positive Test 05/04/20 02:15 05/04/20 02:16 05/04/20 02:20 05/04/20 08:20 POC Whole Blood Glucose 93 MG/DL (74-106) Arterial Blood pH 7.247 (7.350-7.450) 7.270 (7.350-7.450) Arterial Blood Partial Pressure CO2 51.6 mmHg (35.0-45.0) 45.4 mmHg (35.0-45.0) Arterial Blood Partial Pressure O2 50.5 mmHg (75.0-100.0) 277.2 mmHg (75.0-100.0) Arterial Blood HCO3 22.0 mmol/L (22.0-26.0) 20.4 mmol/L (22.0-26.0) Arterial Blood Oxygen Saturation 83.5 % (95-100) 98.7 % (95-100) Arterial Blood Base Excess -5.2 (-2-2) -6.4 (-2-2) [place]ano Test Positive Positive White Blood Count 18.7 K/UL (4.8-10.8) Red Blood Count 2.23 M/UL (4.70-6.10) Hemoglobin 7.7 G/DL (14.2-18.0) Hematocrit 23.9 % (42.0-52.0) Mean Corpuscular Volume 107 FL (80-99) Mean Corpuscular Hemoglobin 34.7 PG (27.0-31.0) Mean Corpuscular Hemoglobin Concent 32.5 G/DL (32.0-36.0) Red Cell Distribution Width 22.5 % (11.6-14.8) Platelet Count 239 K/UL (150-450) Mean Platelet Volume 5.9 FL (6.5-10.1) Neutrophils (%) (Auto) % (45.0-75.0) Lymphocytes (%) (Auto) % (20.0-45.0) Monocytes (%) (Auto) % (1.0-10.0) Eosinophils (%) (Auto) % (0.0-3.0) Basophils (%) (Auto) % (0.0-2.0) Differential Total Cells Counted 100 Neutrophils % (Manual) 89 % (45-75) Lymphocytes % (Manual) 6 % (20-45) Monocytes % (Manual) 5 % (1-10) Eosinophils % (Manual) 0 % (0-3) Basophils % (Manual) 0 % (0-2) Band Neutrophils 0 % (0-8) Platelet Estimate Adequate Platelet Morphology Normal Prothrombin Time 14.0 SEC (9.30-11.50) Prothromb Time International Ratio 1.3 (0.9-1.1) Activated Partial Thromboplast Time 37 SEC (23-33) Sodium Level 138 MMOL/L (136-145) Potassium Level 2.6 MMOL/L (3.5-5.1) Chloride Level 105 MMOL/L (98-107) Carbon Dioxide Level 22 MMOL/L (21-32) Anion Gap 11 mmol/L (5-15) Blood Urea Nitrogen 129 mg/dL (7-18) Creatinine 4.2 MG/DL (0.55-1.30) Estimat Glomerular Filtration Rate 13.8 mL/min (>60) Glucose Level 96 MG/DL (74-106) Calcium Level 9.4 MG/DL (8.5-10.1) Magnesium Level 2.6 MG/DL (1.8-2.4) Total Bilirubin 0.4 MG/DL (0.2-1.0) Aspartate Amino Transf (AST/SGOT) 16 U/L (15-37) Alanine Aminotransferase (ALT/SGPT) < 6 U/L (12-78) Alkaline Phosphatase 142 U/L (46-116) Troponin I 0.133 ng/mL (0.000-0.056) Pro-B-Type Natriuretic Peptide 46320 pg/mL (0-125) Total Protein 6.4 G/DL (6.4-8.2) Albumin 1.4 G/DL (3.4-5.0) Globulin 5.0 g/dL Albumin/Globulin Ratio 0.3 (1.0-2.7) Thyroid Stimulating Hormone (TSH) 47.028 uiU/mL (0.358-3.740) Objective: WDWN NAD reduced breath sounds bilaterally without rhonchi or wheeze [id number] without MRG NABS nontender GT no CCE significant contractures nonfocal obtunded trach in place Vent skin noted Micro: Microbiology Date/Time Source Procedure Growth Status 05/03/20 15:40 Rectum Received 05/03/20 14:00 Nasopharynx SARS-CoV-2 RdRp Gene Assay - Final Complete Accucheck: 95 Mansoor Martinez MD May 04, 2020 08:39
[2020-05-04] MEDS: levETIRAcetam 500mg/5ml Liquid GT SCH (08:56)
[2020-05-04] MEDS: Aspirin Baby 81mg NG SCH (08:56)
[2020-05-04] MEDS: NS w/KCl 20mEq 1000ml 1,000 ML IV SCH ×2 (08:57→18:09)
[2020-05-04] MEDS: Heparin 5000 units/ml inj SUBQ SCH ×2 (09:37→20:49)
--- NOTE | 2020-05-04 10:45 | History and Physical Report ---
DATE OF ADMISSION: 05/03/2020 CHIEF COMPLAINT: Sepsis, shock, respiratory failure. HISTORY OF PRESENT ILLNESS: The patient is an unfortunate 80-year-old male. He has a history of chronic respiratory failure, congestive heart failure, dysphagia, stroke, seizure disorder, anemia, and chronic kidney disease. He was transferred from a custodial facility with complaints of shortness of breath. On evaluation in the emergency room, the patient was noted to be hypoxic. He was placed on 100%. He is chronically vent dependent. Laboratory showed a significant leukocytosis of 23,000 and a creatinine of 4.2. He had x-ray evidence of bilateral pneumonia. The patient has been started on IV antibiotic therapy. He has become progressively more hypotensive and is now on a Levophed drip. He is admitted to intensive care unit. PAST MEDICAL HISTORY: As above. PAST SURGICAL HISTORY: Includes trach and a G-tube. CURRENT MEDICATIONS: Reconciled and reviewed. ALLERGIES: None. FAMILY HISTORY: None. SOCIAL HISTORY: There is no known history of tobacco, ethanol, or drugs. REVIEW OF SYSTEMS: Unobtainable as the patient is nonverbal. PHYSICAL EXAMINATION: VITAL SIGNS: Temperature 97, pulse 93, respirations 29, blood pressure 99/59. GENERAL: The patient is a chronically ill-appearing male. He is poorly responsive currently on the vent. HEENT: Head is normocephalic and atraumatic. NECK: Supple. Trach site was midline and clean. HEART: Regular rate and rhythm. LUNGS: Significant for bilateral rhonchi and rales. ABDOMEN: Soft, nontender, nondistended. EXTREMITIES: Without clubbing or cyanosis. The patient is noted to have contractures. SKIN: He has a sacral wound on the right buttock and erythematous rash. There is also a small sacral wound approximately 2 to 3 cm in the lower back area. LABORATORY AND DIAGNOSTIC DATA: Pertinent white count was [address], hemoglobin 9.4, platelet count of 274. Sodium 136, potassium 3, chloride 103, bicarb 22, BUN 120, creatinine 3.8. Troponin 0.159. ASSESSMENT: This is an unfortunate 80-year-old male with history of stroke, encephalopathy, seizure disorder, chronic respiratory failure, admitted with complaints of septic shock secondary to pneumonia. The patient also was noted to have a large amount of output from his G-tube, which may be due to GI bleed. Septic shock, pneumonia, respiratory failure, possible GI bleed, seizure disorder, azotemia, acute on chronic renal failure, anemia, possible acute [place]. PLAN: 1. Aggressive fluid resuscitation. 2. Broad-spectrum IV antibiotics. 3. We will follow up pending cultures. 4. Replace potassium. 5. Gentle hydration. 6. IV PPI treatment. 7. GI, Cardiology, Infectious Diseases consultations will be obtained. The patient's status is currently critical and guarded. He has a POLST for Full Code. Jimi Tellez M.D. DR: Sumit JOB#: [id number] CC:
[2020-05-04 11:47] LABS: HEMATOCRIT 23.2 % (42.0-52.0); HEMOGLOBIN 7.6 G/DL (14.2-18.0); MEAN CORPUSCULAR VOLUME 108 FL (80-99); PLATELET COUNT 271 K/UL (150-450); RED BLOOD COUNT 2.16 M/UL (4.70-6.10); RED CELL DISTRIBUTION WIDTH 22.9 % (11.6-14.8)
[2020-05-04 11:48] LABS: WHITE BLOOD COUNT 22.7 K/UL (4.8-10.8)
[2020-05-04] MEDS ORDERED: Tubing IV Secondary IV ONE ×3 (13:15→13:20)
[2020-05-04] MEDS ORDERED: NS 275ml ONE (13:20)
[2020-05-04] MEDS ORDERED: BISACODYL10 M1 RC (13:43)
[2020-05-04] MEDS ORDERED: MILK OF MA2400 MG/10 GT (13:43)
[2020-05-04] MEDS ORDERED: ZINC SULFATE220 M1 GT (13:43)
[2020-05-04] MEDS ORDERED: KCL 20 MEQ/15 ML GT (13:43)
[2020-05-04] MEDS ORDERED: Sodium Bicarbonate 50ml Carp IV SCH (14:15)
--- NOTE | 2020-05-04 14:59 | Consultation ---
History of Present Illness General Date patient seen: May 04, 2020 Reason for Hospitalization: Dyspnea/Respdistress Present Illness HPI 80-year-old male well-known to me from prior admissions and care plans presents [facility] from care facility last discharged in March 2020 now presents with respiratory insufficiency admitted to intensive care unit for monitoring care and management on respiratory support. Labs noted imaging reviewed surgery called to evaluate assist with care. Patient seen, patient [place], chart reviewed patient unable to cooperate or participate examination given medical history and condition Allergies: Coded Allergies: No Known Allergies (Unverified , 02/23/12) COVID-19 Screening Contact w/high risk pt: Yes Recent Travel to affected area: No Experienced COVID-19 symptoms?: No Coronavirus symptoms experienc: Shortness of Breath Medication History Scheduled Acetaminophen* (Acetaminophen*), 640 MG GT DAILY, (Reported) Clonidine Hcl* (Catapres*), 0.1 MG GT Q4HR, (Reported) Cran/Vitc/Mannose/Inulin/Brom (Uti-Stat Liquid), 30 ML GT BID, (Reported) Docusate Sodium* (Docusate Sodium*), 100 MG GT TWICE A DAY, (Reported) Epoetin Asaf (Epogen), 10,000 UNIT SUBQ 3XW, (Reported) Ferrous Sulfate (Ferrous Sulfate), 7.5 ML GT TID, (Reported) Lansoprazole* (Lansoprazole*), 30 MG GT Q12HR, (Reported) Levetiracetam (Levetiracetam), 500 MG GT BID, (Reported) Levothyroxine Sodium* (Synthroid*), 200 MCG GT DAILY, (Reported) Vit C/Ascorbate Ca/Ascorb Sod (Vitamin C 500 Mg/15 Ml Liquid), 250 MG GT DAILY, (Reported) Zinc Sulfate (Zinc Sulfate*), 220 MG GT DAILY, (Reported) [Kcl Liq 20MEQ/15ML], 20 MEQ GT DAILY, (Reported) Scheduled PRN Bisacodyl (Bisacodyl), 10 MG RC DAILY PRN for Constipation, (Reported) Lorazepam* (Ativan*), 1 MG GT Q4HR PRN for For Anxiety, (Reported) Magnesium Hydroxide* (Milk Of Magnesia*), 30 ML GT DAILY PRN for Constipation, (Reported) Metoclopramide Hcl* (Reglan*), 5 MG GT EVERY 6 HOURS PRN for Nausea & Vomiting, (Reported) Discontinued Medications Colistimethate Sodium (Colistin), 75 MG INH Q12HR@10,22 Discontinued Reason: Pt stopped taking med Multivitamin Liquid* (Multi-Delyn*), 15 ML GT DAILY, (Reported) Discontinued Reason: Pt stopped taking med Fleerojonpfr-Yzug-Gqpduhnk,Iso (Zosyn 3.375 Gm Galaxy Bag), 3.375 GM IV Q8HR Discontinued Reason: Pt stopped taking med Protein Supplement (Promod), 30 ML GT DAILY, (Reported) Discontinued Reason: Pt stopped taking med Patient History Limited by: medical condition History Provided By: Medical Record, PMD Healthcare decision maker N Resuscitation status Advanced Directive on File Past Medical/Surgical History Past Medical/Surgical History: (1) Aspiration pneumonia (2) Respiratory failure (3) ARF (acute renal failure) (4) GIB (gastrointestinal bleeding) (5) Hypokalemia (6) Hyperkalemia (7) Hypomagnesemia (8) Anemia (9) Decubitus skin ulcer (10) Hypernatremia (11) Renal insufficiency (12) Respiratory insufficiency (13) Malnutrition (14) Sepsis (15) UTI (urinary tract infection) (16) Metabolic acidosis (17) Pneumonia (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 (19) Chronic kidney disease (20) CKD (chronic kidney disease) stage 3, GFR 30-59 ml/min (21) CKD (chronic kidney disease) stage 5, GFR less than 15 ml/min (22) Elevated LFTs (23) Protein-calorie malnutrition, severe (24) HCAP (healthcare-associated pneumonia) (25) Suspected COVID-19 virus infection (26) Colon distention (27) SOB (shortness of breath) (28) Dehydration (29) Ventilator associated pneumonia (30) AUDREY (acute kidney injury) Review of Systems Review of Symptoms General ROS: no weight loss or fever Psychological ROS: no depression or mood changes, no memory loss Ophthalmic ROS: no visual changes or eye irritation ENT ROS: no nasal congestion, hearing loss, dizziness Allergy and Immunology ROS: no allergic symptoms or urticaria Hematological and Lymphatic ROS: no swollen glands, unusual bleeding or bruising Endocrine ROS: no polyuria, polydipsia, weight changes, temperature intolerance Respiratory ROS: no cough, shortness of breath, or wheezing Cardiovascular ROS: no chest pain or dyspnea on exertion Gastrointestinal ROS: denies abdominal pain, bright red blood in stool. Musculoskeletal ROS: no myalgias or arthralgias Neurological ROS: no TIA or stroke symptoms Dermatological ROS: no new or changing skin lesions, rashes or pruritis unable to obtain Physical Exam Physical Exam General appearance: alert, no distress, appears stated age Head: Normocephalic, without obvious abnormality, atraumatic Eyes: conjunctivae/corneas clear. PERRL, EOM's intact. Fundi benign Throat: Lips, mucosa, and tongue normal. Teeth and gums normal Neck: supple, symmetrical, trachea midline, no adenopathy, thyroid: not enlarged, symmetric, no tenderness/mass/nodules, no carotid bruit and no JVD trach Lungs: clear to auscultation bilaterally Heart: regular rate and rhythm, S1, S2 normal, no murmur, click, rub or gallop Abdomen: soft, non-tender. Bowel sounds normal. No masses, no organomegaly peg Extremities: extremities normal, atraumatic, no cyanosis or edema Pulses: decreased symmetric Skin: Skinsee below Neurologic: Grossly normal Last 24 Hour Vital Signs Date Time Temp Pulse Resp B/P (MAP) Pulse Ox O2 Delivery O2 Flow Rate FiO2 05/04/20 14:50 88/50 05/04/20 14:00 88 31 91/50 (64) 91 05/04/20 13:06 101 30 85 05/04/20 13:00 94 27 99/55 (70) 100 05/04/20 12:00 80 05/04/20 12:00 90 05/04/20 12:00 98.6 78 32 111/63 (79) 100 05/04/20 11:28 86 29 85 05/04/20 11:00 82 29 106/62 (77) 100 05/04/20 10:00 83 28 110/68 (82) 100 05/04/20 09:30 87 28 105/64 (78) 100 05/04/20 09:00 87 28 93/67 (76) 100 05/04/20 08:35 82 27 85 05/04/20 08:30 88 29 102/57 (72) 100 05/04/20 08:00 87 05/04/20 08:00 Mechanical Ventilator Mechanical Ventilator 05/04/20 08:00 100 05/04/20 08:00 97.7 86 29 98/58 (71) 97 05/04/20 07:30 89 29 100/54 (69) 100 05/04/20 07:10 80 28 100 05/04/20 07:00 87 27 101/59 (73) 100 05/04/20 06:00 89 28 93/49 (64) 100 05/04/20 05:35 85 24 100 05/04/20 05:00 95 28 109/59 (76) 100 05/04/20 04:00 97.6 93 29 99/59 (72) 100 05/04/20 04:00 Mechanical Ventilator 05/04/20 04:00 75 05/04/20 03:33 94 05/04/20 03:05 103 30 100 05/04/20 03:00 101 29 84/39 (54) 100 05/04/20 03:00 100 05/04/20 02:59 106 22 100 05/04/20 02:48 75/44 05/04/20 02:40 Mechanical Ventilator 05/04/20 02:38 101 05/04/20 02:00 98.0 101 29 84/39 (54) 100 05/04/20 00:53 116 37 75 05/04/20 00:00 Mechanical Ventilator 05/04/20 00:00 75 05/04/20 00:00 97.9 102 22 90/58 (69) 100 05/03/20 23:28 111 05/03/20 22:54 105 36 75 05/03/20 20:51 92 36 75 05/03/20 20:00 97.7 106 22 118/83 (95) 99 05/03/20 20:00 75 05/03/20 20:00 Mechanical Ventilator 05/03/20 19:30 Mechanical Ventilator 05/03/20 19:06 107 31 75 05/03/20 19:06 102 05/03/20 17:39 111 31 100 Mechanical Ventilator 75 05/03/20 17:39 111 31 75 05/03/20 17:22 98.6 118 23 125/76 98 Mechanical Ventilator 75 05/03/20 15:59 98.0 130 32 114/87 96 Mechanical Ventilator 75 Intake and Output 05/03/20 05/04/20 19:00 07:00 Intake Total 2510 ml 1139.5 ml Output Total 250 ml Balance 2510 ml 889.5 ml Intake Oral 0 ml IV Total 2510 ml 1139.5 ml Output Gastric Drainage Total 250 ml # Voids 100 # Bowel Movements 3 Laboratory Tests Test 05/03/20 16:25 05/03/20 21:55 05/04/20 02:15 05/04/20 02:16 Lactic Acid Level 2.10 mmol/L (0.66-2.22) Arterial Blood pH 7.224 (7.350-7.450) 7.247 (7.350-7.450) Arterial Blood Partial Pressure CO2 52.3 mmHg (35.0-45.0) H 51.6 mmHg (35.0-45.0) H Arterial Blood Partial Pressure O2 90.4 mmHg (75.0-100.0) 50.5 mmHg (75.0-100.0) L Arterial Blood HCO3 21.1 mmol/L (22.0-26.0) L 22.0 mmol/L (22.0-26.0) Arterial Blood Oxygen Saturation 96.4 % (95-100) 83.5 % (95-100) *L Arterial Blood Base Excess -6.4 (-2-2) L -5.2 (-2-2) L Urbano Test Positive Positive POC Whole Blood Glucose 93 MG/DL (74-106) Test 05/04/20 02:20 05/04/20 08:20 05/04/20 11:25 White Blood Count 18.7 K/UL (4.8-10.8) H 22.7 K/UL (4.8-10.8) *H Red Blood Count 2.23 M/UL (4.70-6.10) L 2.16 M/UL (4.70-6.10) L Hemoglobin 7.7 G/DL (14.2-18.0) L 7.6 G/DL (14.2-18.0) L Hematocrit 23.9 % (42.0-52.0) L 23.2 % (42.0-52.0) L Mean Corpuscular Volume 107 FL (80-99) H 108 FL (80-99) H Mean Corpuscular Hemoglobin 34.7 PG (27.0-31.0) H 35.3 PG (27.0-31.0) H Mean Corpuscular Hemoglobin Concent 32.5 G/DL (32.0-36.0) 32.8 G/DL (32.0-36.0) Red Cell Distribution Width 22.5 % (11.6-14.8) H 22.9 % (11.6-14.8) H Platelet Count 239 K/UL (150-450) 271 K/UL (150-450) Mean Platelet Volume 5.9 FL (6.5-10.1) L 5.9 FL (6.5-10.1) L Neutrophils (%) (Auto) % (45.0-75.0) % (45.0-75.0) Lymphocytes (%) (Auto) % (20.0-45.0) % (20.0-45.0) Monocytes (%) (Auto) % (1.0-10.0) % (1.0-10.0) Eosinophils (%) (Auto) % (0.0-3.0) % (0.0-3.0) Basophils (%) (Auto) % (0.0-2.0) % (0.0-2.0) Differential Total Cells Counted 100 100 Neutrophils % (Manual) 89 % (45-75) H 66 % (45-75) Lymphocytes % (Manual) 6 % (20-45) L 6 % (20-45) L Monocytes % (Manual) 5 % (1-10) 4 % (1-10) Eosinophils % (Manual) 0 % (0-3) 0 % (0-3) Basophils % (Manual) 0 % (0-2) 0 % (0-2) Band Neutrophils 0 % (0-8) 24 % (0-8) H Platelet Estimate Adequate Adequate Platelet Morphology Normal Normal Prothrombin Time 14.0 SEC (9.30-11.50) H Prothromb Time International Ratio 1.3 (0.9-1.1) H Activated Partial Thromboplast Time 37 SEC (23-33) H Sodium Level 138 MMOL/L (136-145) Potassium Level 2.6 MMOL/L (3.5-5.1) *L Chloride Level 105 MMOL/L (98-107) Carbon Dioxide Level 22 MMOL/L (21-32) Anion Gap 11 mmol/L (5-15) Blood Urea Nitrogen 129 mg/dL (7-18) H Creatinine 4.2 MG/DL (0.55-1.30) H Estimat Glomerular Filtration Rate 13.8 mL/min (>60) Glucose Level 96 MG/DL (74-106) Calcium Level 9.4 MG/DL (8.5-10.1) Magnesium Level 2.6 MG/DL (1.8-2.4) H Total Bilirubin 0.4 MG/DL (0.2-1.0) Aspartate Amino Transf (AST/SGOT) 16 U/L (15-37) Alanine Aminotransferase (ALT/SGPT) < 6 U/L (12-78) L Alkaline Phosphatase 142 U/L (46-116) H Troponin I 0.133 ng/mL (0.000-0.056) Pro-B-Type Natriuretic Peptide 84265 pg/mL (0-125) H Total Protein 6.4 G/DL (6.4-8.2) Albumin 1.4 G/DL (3.4-5.0) L Globulin 5.0 g/dL Albumin/Globulin Ratio 0.3 (1.0-2.7) L Thyroid Stimulating Hormone (TSH) 47.028 uiU/mL (0.358-3.740) Arterial Blood pH 7.270 (7.350-7.450) Arterial Blood Partial Pressure CO2 45.4 mmHg (35.0-45.0) H Arterial Blood Partial Pressure O2 277.2 mmHg (75.0-100.0) H Arterial Blood HCO3 20.4 mmol/L (22.0-26.0) L Arterial Blood Oxygen Saturation 98.7 % (95-100) Arterial Blood Base Excess -6.4 (-2-2) L Urbano Test Positive Polychromasia 1+ Hypochromasia 1+ Anisocytosis 2+ Macrocytosis 1+ Microbiology Date/Time Source Procedure Growth Status 05/03/20 15:40 Rectum Received Height (Feet): 5 Height (Inches): 7.00 Weight (Pounds): 150 Medications Current Medications Medications (Trade) Dose Ordered Sig/Lanny Route PRN Reason Start Time Stop Time Status Last Admin Dose Admin Acetaminophen (Tylenol) 650 mg Q4H PRN NG fever pain 05/03/20 21:30 06/02/20 21:29 Aspirin (ASA) 81 mg DAILY NG 05/04/20 09:00 06/18/20 08:59 05/04/20 08:56 Chlorhexidine Gluconate (Kayla-Hex 2%) 1 applic DAILY@2000 TOPIC 05/04/20 20:00 08/02/20 19:59 Clonidine HCl (Catapres Tab) 0.1 mg Q4H PRN GT SBP above 150 05/03/20 21:30 08/01/20 21:29 Heparin Sodium (Porcine) (Heparin 5000 units/ml) 5,000 units EVERY 12 HOURS SUBQ 05/04/20 09:00 06/18/20 08:59 05/04/20 09:37 Levetiracetam 100 ml @ 400 mls/hr Q12HR IVPB 05/04/20 21:00 08/02/20 20:59 Levothyroxine Sodium (Synthroid) 75 mcg DAILY IV 05/04/20 11:00 06/03/20 10:59 05/04/20 10:35 Norepinephrine Bitartrate 250 ml @ 0 mls/hr Q24H IV 05/04/20 02:45 05/07/20 02:38 05/04/20 14:50 Pantoprazole (Protonix) 40 mg EVERY 12 HOURS IVP 05/04/20 21:00 06/03/20 20:59 Piperacillin Sod/ Tazobactam Sod 2.25 gm/Dextrose 55 ml @ 110 mls/hr Q8HR IV 05/03/20 22:00 05/08/20 21:59 05/04/20 14:39 Potassium Chloride/Sodium Chloride 1,000 ml @ 100 mls/hr Q10H IV 05/03/20 22:00 06/02/20 21:59 05/04/20 08:57 Sodium Bicarbonate (Sodium Bicarbonate) 100 ml ONCE IV 05/04/20 14:15 05/04/20 16:30 05/04/20 14:39 Vancomycin HCl (Vanco pharmacy to dose) 1 ea DAILY PRN MISC Per rx protocol 05/03/20 21:45 06/02/20 21:44 Assessment/Plan Problem List: (1) Dehydration ICD Codes: E86.0 - Dehydration SNOMED: 02201011 (2) Ventilator associated pneumonia ICD Codes: J95.851 - Ventilator associated pneumonia SNOMED: 391663978, 35729893 (3) AUDREY (acute kidney injury) ICD Codes: N17.9 - Acute kidney failure, unspecified SNOMED: 8635053, 71162228 (4) Hypokalemia ICD Codes: E87.6 - Hypokalemia SNOMED: 22000185 (5) Hyperkalemia ICD Codes: E87.5 - Hyperkalemia SNOMED: 40582023, 980949374 (6) Hypomagnesemia ICD Codes: E83.42 - Hypomagnesemia SNOMED: 710809084 (7) Anemia ICD Codes: D64.9 - Anemia, unspecified SNOMED: 873377427, 182112099 (8) Decubitus skin ulcer Assessment & Plan: Pt presented on admission with gross contractures, Multiple Pressure Injuries, Tracheostomy. Skin Assessed under tracheal collar and no evidence of skin breakdown noted. Tear noted to urinary meatus- no exudate noted. Scrotum is erythematous with scattered satellite lesions. Large ulcer noted to R scrotal sac (L)4cm x (W)4.6cm. Base of wound is erythematous ,moist with Biofilm. Sacral DTPI with clusters of small islands of slough with surrounding maroon and indurated areas (L)8cm x (W)12cm.Mild Odor noted. Partial thickness Pressure Injury Upper/outer R buttocks(L)1.8cm x (W)1.3cm. Base of wound is moist and viable. Edges adherent to base of wound. Surrounding non-blanching erythema with scattered areas of shearing noted. Partial thickness Pressure Inferior lower R buttocks.(L)0.8cm x (W)1.2cm. Base of wound is moist and viable. Edges adherent to base of wound. Surrounding non- blanching erythema with scattered shearing noted extending into R ischial tuberosity. Clusters of small hyperpigmentation noted to L trochanteric and L ischial tuberosity. R Heel is fluctuant with scattered dry eschar and surrounding Non-Blanchable erythema.(L)6.5cm x (W)8cm. DTPI distal/lateral R foot(L)3cm x (W)3cm. Base of wound is maroon and fluctuant. dry eschar noted to tip of R 1st metatarsal with surrounding non-blanchable er ythema extending dorsally and laterally of metatarsal(L)5cm x (W)1.3cm Non-Blanchable erythema that is fluctuant at base noted to dorso/lateral L 5th metatarsal(L)0.6cm x (W)0.3cm. L Heel is boggy with non-blanchable erythema laterally. Hyperpigmentation from previous wound noted at L heel. Tx.Plan: Cleanse Sacral wound with Saline. Apply TheraHoney to slough. Apply Moisture Bar rier Paste periwound. Cover with Optifoam drsg. Change daily and prn. Apply Moisture Barrier Paste to Wounds R upper and lower R Buttocks. Cover each wound with Optifoam drsg. Change every 3 days and prn. Apply Zinc Oxide Paste to Scrotal Wounds TID and prn. Apply Betadine to wounds R heel and R foot . Cover with ABD Pads and wrap with Kerlix every 3 days and prn. Apply Betadine to L foot. Cover with ABD Pads and wrap with Kerlix every 3 days and prn. Cover Bony Prominences as needed with Optifoam drsgs. Reposition at least every 2hours or as tolerated. Off-load heels with pillow. APM/VIRAL Mattress DAILY ESTIMATED NEEDS: Needs based on Critical care, 63kg 22-30 kcals/kg 7828-8312 total kcals 1.25-2 g protein/kg 79-126 g total protein 25-30 mL/kg 2874-2668 total fluid mLs NUTRITION DIAGNOSIS: Swallowing difficulty r/ respiratory status as evidenced by pt is vent dep via trach, PEG dep. CURRENT TF:NPO ENTERAL NUTRITION RECOMMENDATIONS: Vital AF 1.2 @ 55ml/hr x 22 hrs to provide 1210ml, 1452kcal, 91g prot, 981ml free water - As medically able, rec Vital 1.2. Start @15ml/hr for 6 hrs, advance as tolerated 10ml/hr q4-6 hrs to goal. - Hold 1 hr before and after synthroid. - Flush per MD, HOB over 30 degrees - Feed w/ hemodynamic stability. ADDITIONAL RECOMMENDATIONS: 1) Obtain calibrated bed scale wts-> recent adm wt was 63kg vs 68kg today 2) Monitor renal labs and lytes, need for renal formula 3) Rec WC eval -> currently NPO 4) Monitor hemodynamic stability, ability to feed ICD Codes: L89.90 - Pressure ulcer of unspecified site, unspecified stage SNOMED: 413594892 (9) SOB (shortness of breath) ICD Codes: R06.02 - Shortness of breath SNOMED: 802550071 (10) Hypernatremia ICD Codes: E87.0 - Hyperosmolality and hypernatremia SNOMED: 012303008 (11) Aspiration pneumonia ICD Codes: J69.0 - Pneumonitis due to inhalation of food and vomit SNOMED: 590103872 (12) Renal insufficiency ICD Codes: N28.9 - Disorder of kidney and ureter, unspecified SNOMED: 854441795, 197291018 (13) Respiratory insufficiency ICD Codes: R06.89 - Other abnormalities of breathing SNOMED: 550722418 (14) Respiratory failure ICD Codes: J96.90 - Respiratory failure, unspecified, unspecified whether with hypoxia or hypercapnia SNOMED: 566499417 (15) Malnutrition ICD Codes: E46 - Unspecified protein-calorie malnutrition SNOMED: 14516919 (16) Sepsis Assessment & Plan: Leukocytosis, lactic acidosis, abnormal labs. In ICU resuscitation imaging noted micro noted. Wounds evaluated no acute infectious process or abscess identified no acute debridement or I&D necessary Local care provider will follow with recommendations ICD Codes: A41.9 - Sepsis, unspecified organism SNOMED: 76519110 (17) UTI (urinary tract infection) ICD Codes: N39.0 - Urinary tract infection, site not specified SNOMED: 06239570, 047304924 (18) Metabolic acidosis ICD Codes: E87.2 - Acidosis SNOMED: 36871571 (19) Pneumonia ICD Codes: J18.9 - Pneumonia, unspecified organism SNOMED: 650098964 (20) ARF (acute renal failure) ICD Codes: N17.9 - Acute kidney failure, unspecified SNOMED: 78430883, 212063375 (21) GIB (gastrointestinal bleeding) ICD Codes: K92.2 - Gastrointestinal hemorrhage, unspecified SNOMED: 77637857 (22) Tracheal stenosis ICD Codes: J39.8 - Other specified diseases of upper respiratory tract SNOMED: 16396018 (23) Chronic kidney disease ICD Codes: N18.9 - Chronic kidney disease, unspecified SNOMED: 212577815, 32605077 (24) CKD (chronic kidney disease) stage 3, GFR 30-59 ml/min ICD Codes: N18.3 - Chronic kidney disease, stage 3 (moderate) SNOMED: 444454814 (25) CKD (chronic kidney disease) stage 5, GFR less than 15 ml/min ICD Codes: N18.5 - Chronic kidney disease, stage 5 SNOMED: 669292373 (26) Elevated LFTs ICD Codes: R94.5 - Abnormal results of liver function studies SNOMED: 046543312, 724839069 (27) Protein-calorie malnutrition, severe ICD Codes: E43 - Unspecified severe protein-calorie malnutrition SNOMED: 130974999, 325371708, 241727994 (28) Colon distention ICD Codes: K63.89 - Other specified diseases of intestine SNOMED: 544636319 (29) HCAP (healthcare-associated pneumonia) ICD Codes: J18.9 - Pneumonia, unspecified organism SNOMED: 917201820, 539860823 (30) Suspected COVID-19 virus infection ICD Codes: R68.89 - Other general symptoms and signs SNOMED: 857800078 [facility] Hospital declaration INPATIENT level of care is warranted for this patient because patient is a 89 year old with who presents with suspicion of . I have a high level of concern because . Patient is at high risk for . Plan of care/treatment include . Patient care is expected to be greater than 2 midnights. OBSERVATION level of care is warranted for this patient. Patient is a 89 year old with who presents with . Patient will be admitted for 1 midnight, but if additional night(s) is/are necessary, patient will be converted to inpatient status for the entire hospitalization Disposition: Once the patient is stable to leave the hospital, I anticipate the patient will likely be discharged to the following environment: Estimated discharge date: I spent 70 minutes on this patient's case, and minutes was dedicated to counseling and/or care coordination. MIPS ([employer]it-based Incentive Payment System) Applicable CPT: 11927, 19119 CHECK ALL THAT ARE MET: Measure #5 (CHF): All ages. Prescribe DEBBIE/ARB upon discharge for patients with left ventricular systolic dysfunction. If not, the reason is clearly documented in the medical chart. Measure #8 (CHF): All ages. Prescribe a beta [place] upon discharge for patients with left ventricular systolic dysfunction. If not, the reason is clearly documented in the medical chart. Measure #47 Advance care plan or surrogate decision maker documented in the medical record. Measure #130 The provider has documented, updated, or reviewed the patients current medication list and has documented it in the patients note. Measure #374 (All): Send report to referring provider. Measure #407(Sepsis due to MSSA bacteremia): Age 18+ Patient treated with a beta-lactam antibiotic (Nafcillin, Oxacillin or Cefazolin) as definitive therapy. MEDICAL COMPLEXITY High complexity medical decision making (need 2/3 categories) Problem - need 4 points Acute/new problem with new plan for workup (4 points, 1 max) Acute/new problem without additional workup (3 points, 1 max) Unstable chronic problem actively being managed (2 point each, 2 max) Stable chronic problem actively being managed (1 point each, 2 max) Self-limited/transient process (constipation, muscle ache, etc) (1 point each, 2 max) Data - need 4 points Reviewed labs/imaging studies (1 points, 2 max) Independent review of imaging (EKG, xrays, etc) (2 points, 2 max) Discussed case with consult/other MD/RN (2 points, 2 max) High Risk - qualify if have one of the following: Severe exacerbation of acute problem, acute mental status change, IV narcotics, monitoring drug levels (vancomycin, INR, tacrolimus etc) Rehan Geronimo May 04, 2020 14:59
[2020-05-04 17:59] LABS: ALANINE AMINOTRANSFERASE < 6 U/L (12-78); ALBUMIN 1.4 G/DL (3.4-5.0); ALBUMIN/GLOBULIN RATIO 0.3 (1.0-2.7); ALKALINE PHOSPHATASE 126 U/L (46-116); ANION GAP 12 mmol/L (5-15); ASPARTATE AMINO TRANSFERASE 18 U/L (15-37); BILIRUBIN,TOTAL 0.4 MG/DL (0.2-1.0); BLOOD UREA NITROGEN 129 mg/dL (7-18); CALCIUM 9.1 MG/DL (8.5-10.1); CARBON DIOXIDE 20 MMOL/L (21-32); CHLORIDE 109 MMOL/L (98-107); CREATININE 4.1 MG/DL (0.55-1.30); POTASSIUM 3.3 MMOL/L (3.5-5.1); SODIUM 141 MMOL/L (136-145)
[2020-05-04] MEDS: Pantoprazole Inj IVP SCH (20:48)
[2020-05-04] MEDS: Dyna-Hex 2% Top Sol 2oz TOPIC SCH (20:48)
[2020-05-04] MEDS: levETIRAcetam 500mg/NS100ml 100 ML IVPB SCH (20:49)
--- NOTE | 2020-05-04 21:40 | General Progress Note ---
Subjective Allergies: Coded Allergies: No Known Allergies (Unverified , 02/23/12) Objective Last 24 Hour Vital Signs Date Time Temp Pulse Resp B/P (MAP) Pulse Ox O2 Delivery O2 Flow Rate FiO2 05/04/20 21:15 102 30 94/54 (67) 100 05/04/20 21:00 97 30 102/53 (69) 100 05/04/20 20:54 96 36 85 05/04/20 20:45 97 36 109/56 (73) 100 05/04/20 20:30 92 31 101/58 (72) 100 05/04/20 20:15 96 31 99/58 (72) 100 05/04/20 20:00 85 05/04/20 20:00 99.1 92 14 102/57 (72) 100 05/04/20 19:00 88 29 114/64 (81) 100 05/04/20 18:45 86 32 85 05/04/20 18:00 87 33 104/56 (72) 100 05/04/20 17:28 89 31 85 05/04/20 17:00 84 26 110/68 (82) 100 05/04/20 16:01 97.9 89 30 81/55 (64) 100 05/04/20 16:00 94 05/04/20 16:00 85 05/04/20 16:00 89 30 81/55 (64) 100 05/04/20 15:00 92 16 101/60 (74) 100 05/04/20 14:50 88/50 05/04/20 14:30 95 30 85 05/04/20 14:00 88 31 91/50 (64) 91 05/04/20 13:06 101 30 85 05/04/20 13:00 94 27 99/55 (70) 100 05/04/20 12:00 85 05/04/20 12:00 90 05/04/20 12:00 98.6 78 32 111/63 (79) 100 05/04/20 11:28 86 29 85 05/04/20 11:00 82 29 106/62 (77) 100 05/04/20 10:00 83 28 110/68 (82) 100 05/04/20 09:30 87 28 105/64 (78) 100 05/04/20 09:00 87 28 93/67 (76) 100 05/04/20 08:35 82 27 85 05/04/20 08:30 88 29 102/57 (72) 100 05/04/20 08:00 87 05/04/20 08:00 Mechanical Ventilator Mechanical Ventilator 05/04/20 08:00 100 05/04/20 08:00 97.7 86 29 98/58 (71) 97 05/04/20 07:30 89 29 100/54 (69) 100 05/04/20 07:10 80 28 100 05/04/20 07:00 87 27 101/59 (73) 100 05/04/20 06:00 89 28 93/49 (64) 100 05/04/20 05:35 85 24 100 05/04/20 05:00 95 28 109/59 (76) 100 05/04/20 04:00 97.6 93 29 99/59 (72) 100 05/04/20 04:00 Mechanical Ventilator 05/04/20 04:00 75 05/04/20 03:33 94 05/04/20 03:05 103 30 100 05/04/20 03:00 101 29 84/39 (54) 100 05/04/20 03:00 100 05/04/20 02:59 106 22 100 05/04/20 02:48 75/44 05/04/20 02:40 Mechanical Ventilator 05/04/20 02:38 101 05/04/20 02:00 98.0 101 29 84/39 (54) 100 05/04/20 00:53 116 37 75 05/04/20 00:00 Mechanical Ventilator 05/04/20 00:00 75 05/04/20 00:00 97.9 102 22 90/58 (69) 100 05/03/20 23:28 111 05/03/20 22:54 105 36 75 Intake and Output 05/03/20 05/04/20 19:00 07:00 Intake Total 2510 ml 1139.5 ml Output Total 250 ml Balance 2510 ml 889.5 ml Intake Oral 0 ml IV Total 2510 ml 1139.5 ml Output Gastric Drainage Total 250 ml # Voids 100 # Bowel Movements 3 Laboratory Tests 05/03/20 21:55: Arterial Blood pH 7.224*L, Arterial Blood Partial Pressure CO2 52.3H, Arterial Blood Partial Pressure O2 90.4, Arterial Blood HCO3 21.1L, Arterial Blood Oxygen Saturation 96.4, Arterial Blood Base Excess -6.4L, [place] Test Positive 05/04/20 02:15: POC Whole Blood Glucose 93 05/04/20 02:16: Arterial Blood pH 7.247*L, Arterial Blood Partial Pressure CO2 51.6H, Arterial Blood Partial Pressure O2 50.5L, Arterial Blood HCO3 22.0, Arterial Blood Oxygen Saturation 83.5*L, Arterial Blood Base Excess -5.2L, [place] Test Positive 05/04/20 02:20: White Blood Count 18.7H, Red Blood Count 2.23L, Hemoglobin 7.7L, Hematocrit 23.9L, Mean Corpuscular Volume 107H, Mean Corpuscular Hemoglobin 34.7H, Mean Corpuscular Hemoglobin Concent 32.5, Red Cell Distribution Width 22.5H, Platelet Count 239, Mean Platelet Volume 5.9L, Neutrophils (%) (Auto) , Lymphocytes (%) (Auto) , Monocytes (%) (Auto) , Eosinophils (%) (Auto) , Basophils (%) (Auto) , Differential Total Cells Counted 100, Neutrophils % (Manual) 89H, Lymphocytes % (Manual) 6L, Monocytes % (Manual) 5, Eosinophils % (Manual) 0, Basophils % (Manual) 0, Band Neutrophils 0, Platelet Estimate Adequate, Platelet Morphology Normal, Prothrombin Time 14.0H, Prothromb Time International Ratio 1.3H, Activated Partial Thromboplast Time 37H, Sodium Level 138, Potassium Level 2.6*L , Chloride Level 105, Carbon Dioxide Level 22, Anion Gap 11, Blood Urea Nitrogen 129H, Creatinine 4.2H, Estimat Glomerular Filtration Rate 13.8, Glucose Level 96, Calcium Level 9.4, Magnesium Level 2.6H, Total Bilirubin 0.4, Aspartate Amino Transf (AST/SGOT) 16, Alanine Aminotransferase (ALT/SGPT) < 6L, Alkaline Phosphatase 142H, Troponin I 0.133H, Pro-B-Type Natriuretic Peptide 21001Y, Total Protein 6.4, Albumin 1.4L, Globulin 5.0, Albumin/Globulin Ratio 0.3L, Thyroid Stimulating Hormone (TSH) 47.028H 05/04/20 08:20: Arterial Blood pH 7.270L, Arterial Blood Partial Pressure CO2 45.4H, Arterial Blood Partial Pressure O2 277.2H, Arterial Blood HCO3 20.4L, Arterial Blood Oxygen Saturation 98.7, Arterial Blood Base Excess -6.4L, [place] Test Positive 05/04/20 11:25: White Blood Count 22.7*H, Red Blood Count 2.16L, Hemoglobin 7.6L, Hematocrit 23.2L, Mean Corpuscular Volume 108H, Mean Corpuscular Hemoglobin 35.3H, Mean Corpuscular Hemoglobin Concent 32.8, Red Cell Distribution Width 22.9H, Platelet Count 271, Mean Platelet Volume 5.9L, Neutrophils (%) (Auto) , Lymphocytes (%) (Auto) , Monocytes (%) (Auto) , Eosinophils (%) (Auto) , Basophils (%) (Auto) , Differential Total Cells Counted 100, Neutrophils % (Manual) 66, Lymphocytes % (Manual) 6L, Monocytes % (Manual) 4, Eosinophils % (Manual) 0, Basophils % (Manual) 0, Band Neutrophils 24H, Platelet Estimate Adequate, Platelet Morphology Normal, Polychromasia 1+, Hypochromasia 1+, Anisocytosis 2+, Mac rocytosis 1+ 05/04/20 17:26: Sodium Level 141, Potassium Level 3.3L, Chloride Level 109H, Carbon Dioxide Level 20L, Anion Gap 12, Blood Urea Nitrogen 129H, Creatinine 4.1H, Estimat Glomerular Filtration Rate 14.2, Glucose Level 96, Calcium Level 9.1, Total B ilirubin 0.4, Aspartate Amino Transf (AST/SGOT) 18, Alanine Aminotransferase (ALT/SGPT) < 6L, Alkaline Phosphatase 126H, Total Protein 6.3L, Albumin 1.4L, Globulin 4.9, Albumin/Globulin Ratio 0.3L Height (Feet): 5 Height (Inches): 7.00 Weight (Pounds): 150 Assessment/Plan Assessment/Plan: GI CONSULT Dictated ATSP for UGIB s/p recent EGD for gastric ulcer not a good candidate for endoscopy due to multiple medical problems Recommendations - NGT - LIS - convert PO to IV meds - IV PPI - transfuse PRN - will follow Thank you Clive Andino MD May 04, 2020 21:40
--- NOTE | 2020-05-04 22:15 | Consultation ---
DATE OF CONSULTATION: 05/04/2020 GASTROENTEROLOGY CONSULTATION REPORT CONSULTING PHYSICIAN: Clive Kuo MD CHIEF COMPLAINT: I was asked to see this patient by Dr. Jimi Tellez for evaluation of gastrointestinal bleeding. HISTORY OF PRESENT ILLNESS: The patient is an unfortunate 80-year-old man from a half-way who has a tracheostomy and a gastrostomy and requires around the clock care who was brought into the hospital due to shortness of breath and respiratory issues. Patient himself was unable to provide any history as he is somewhat obtunded and most of the information is only available from the chart. Patient was noted to be hypoxic and tachypneic and therefore he was brought to the intensive care unit where he was placed on 100% oxygen. Patient was also noted to have some coffee-ground drainage from his gastrostomy tube. No rand melena was reported today. He had some degree of hypotension, requiring pressors. Patient has had a recent history of upper gastrointestinal bleeding and on that admission required 3 separate endoscopies in order to make proper diagnosis. Endoscopies were difficult since each time there was a large blood clot in the stomach, which could not be aspirated. Eventually in the third endoscopy, the clots were cleared. The patient was found to have a gastric ulcer in the proximal stomach, which did not show any evidence of bleeding and therefore was managed conservatively. Patient on this admission appears ill and felt to have an acute myocardial ischemia and possible non-ST elevation myocardial infarction. He is being seen by multiple consultants as outlined in the chart. PAST MEDICAL HISTORY: Respiratory failure status post tracheostomy, history of chronic kidney disease, protein-calorie malnutrition, history of multiple fractures, contracture deformities, history of tracheal stenosis, congestive heart failure, seizure disorder, hypothyroidism, advanced dementia, paroxysmal atrial fibrillation, myocardial infarction, type 2 diabetes, gastric ulcer, gastrointestinal bleeding, anemia. FAMILY HISTORY: Noncontributory. SOCIAL HISTORY: Patient is a long-term half-way resident and requires around the clock care. ALLERGIES: None known. REVIEW OF SYSTEMS: Unobtainable. PHYSICAL EXAMINATION: GENERAL: Debilitated man, seen in the intensive care unit with the nurse at bedside. HEENT: Normocephalic. There was temporal wasting. NECK: Showed a tracheostomy in place. CHEST: Revealed coarse breath sounds. CARDIOVASCULAR: Revealed a regular rate. ABDOMEN: Soft with a gastrostomy in place, draining some dark brown material. EXTREMITIES: Revealed severe contracture deformities. NEUROLOGIC: Notable for obtundation. LABORATORY DATA: Noted. ASSESSMENT: This patient presents with a some degree of gastrointestinal bleeding as manifested by his dark gastric aspirate. However, his condition is poor and he has critical issues including myocardia ischemia and infarction. As such, he is not a good candidate for endoscopic intervention and recent endoscopy has been done showing the gastric ulcer, which was treated medically. For the time being, I would manage the gastrointestinal issue conservatively. Blood transfusion can be given as necessary and should be given a proton pump inhibitor twice daily. The gastrostomy tube has been placed to suction and therefore oral medications will be poorly absorbed. I will convert the oral medications to IV if feasible and he can be given IV Protonix every 12 hours. Should his bleeding worsen and show evidence of hemodynamic instability, then an emergency endoscopy can be done for therapeutic purposes. Patient's overall health is poor and he will need to be monitored in the intensive care unit closely. RECOMMENDATIONS: Per above discussion and per orders written in the chart. Thank you for asking me to participate in the care of this patient. Clive Kuo M.D. DR: MIKE JOB#: [id number] CC:
[2020-05-05] VITALS (67 sets, daily range): BP systolic 90–121; BP diastolic 48–81
--- NOTE | 2020-05-05 00:15 | Cardiology Progress Note ---
Subjective DATE OF SERVICE: May 04, 2020 Remains Critical & Guarded On vent support Requiring pressor support - on norepinephrine IV thyroid replacement for TSH of 49. Labs reviewed Objective Last 24 Hour Vital Signs Date Time Temp Pulse Resp B/P (MAP) Pulse Ox O2 Delivery O2 Flow Rate FiO2 05/04/20 22:53 99 32 85 05/04/20 22:30 97 29 110/64 (79) 100 05/04/20 22:15 99 32 108/61 (77) 100 05/04/20 22:00 100 31 99/55 (70) 100 05/04/20 21:15 102 30 94/54 (67) 100 05/04/20 21:00 97 30 102/53 (69) 100 05/04/20 20:54 96 36 85 05/04/20 20:45 97 36 109/56 (73) 100 05/04/20 20:30 92 31 101/58 (72) 100 05/04/20 20:15 96 31 99/58 (72) 100 05/04/20 20:00 Mechanical Ventilator Mechanical Ventilator 05/04/20 20:00 85 05/04/20 20:00 99.1 92 14 102/57 (72) 100 05/04/20 19:00 88 29 114/64 (81) 100 05/04/20 18:45 86 32 85 05/04/20 18:00 87 33 104/56 (72) 100 05/04/20 17:28 89 31 85 05/04/20 17:00 84 26 110/68 (82) 100 05/04/20 16:01 97.9 89 30 81/55 (64) 100 05/04/20 16:00 94 05/04/20 16:00 85 05/04/20 16:00 89 30 81/55 (64) 100 05/04/20 15:00 92 16 101/60 (74) 100 05/04/20 14:50 88/50 05/04/20 14:30 95 30 85 05/04/20 14:00 88 31 91/50 (64) 91 05/04/20 13:06 101 30 85 05/04/20 13:00 94 27 99/55 (70) 100 05/04/20 12:00 85 05/04/20 12:00 90 05/04/20 12:00 98.6 78 32 111/63 (79) 100 11/5/20 11:28 86 29 85 05/04/20 11:00 82 29 106/62 (77) 100 05/04/20 10:00 83 28 110/68 (82) 100 05/04/20 09:30 87 28 105/64 (78) 100 05/04/20 09:00 87 28 93/67 (76) 100 05/04/20 08:35 82 27 85 05/04/20 08:30 88 29 102/57 (72) 100 05/04/20 08:00 87 05/04/20 08:00 Mechanical Ventilator Mechanical Ventilator 05/04/20 08:00 100 05/04/20 08:00 97.7 86 29 98/58 (71) 97 05/04/20 07:30 89 29 100/54 (69) 100 05/04/20 07:10 80 28 100 05/04/20 07:00 87 27 101/59 (73) 100 05/04/20 06:00 89 28 93/49 (64) 100 05/04/20 05:35 85 24 100 05/04/20 05:00 95 28 109/59 (76) 100 05/04/20 04:00 97.6 93 29 99/59 (72) 100 05/04/20 04:00 Mechanical Ventilator 05/04/20 04:00 75 05/04/20 03:33 94 05/04/20 03:05 103 30 100 05/04/20 03:00 101 29 84/39 (54) 100 05/04/20 03:00 100 05/04/20 02:59 106 22 100 05/04/20 02:48 75/44 05/04/20 02:40 Mechanical Ventilator 05/04/20 02:38 101 05/04/20 02:00 98.0 101 29 84/39 (54) 100 05/04/20 00:53 116 37 75 HEENT: Thick Trach secretions RHYTHM: ST LUNGS: bilateral rhonchi CARDIAC: normal rate, regular rhythm, normal S1 and S2 ABDOMEN: normal bowel sounds, soft, no organomegaly, G-Tube intact EXTREMITIES: trace edema Laboratory Tests Test 05/04/20 02:15 05/04/20 02:16 05/04/20 02:20 05/04/20 08:20 POC Whole Blood Glucose 93 MG/DL (74-106) Arterial Blood pH 7.247 (7.350-7.450) 7.270 (7.350-7.450) Arterial Blood Partial Pressure CO2 51.6 mmHg (35.0-45.0) H 45.4 mmHg (35.0-45.0) H Arterial Blood Partial Pressure O2 50.5 mmHg (75.0-100.0) L 277.2 mmHg (75.0-100.0) H Arterial Blood HCO3 22.0 mmol/L (22.0-26.0) 20.4 mmol/L (22.0-26.0) L Arterial Blood Oxygen Saturation 83.5 % (95-100) *L 98.7 % (95-100) Arterial Blood Base Excess -5.2 (-2-2) L -6.4 (-2-2) L [place] Test Positive Positive White Blood Count 18.7 K/UL (4.8-10.8) H Red Blood Count 2.23 M/UL (4.70-6.10) L Hemoglobin 7.7 G/DL (14.2-18.0) L Hematocrit 23.9 % (42.0-52.0) L Mean Corpuscular Volume 107 FL (80-99) H Mean Corpuscular Hemoglobin 34.7 PG (27.0-31.0) H Mean Corpuscular Hemoglobin Concent 32.5 G/DL (32.0-36.0) Red Cell Distribution Width 22.5 % (11.6-14.8) H Platelet Count 239 K/UL (150-450) Mean Platelet Volume 5.9 FL (6.5-10.1) L Neutrophils (%) (Auto) % (45.0-75.0) Lymphocytes (%) (Auto) % (20.0-45.0) Monocytes (%) (Auto) % (1.0-10.0) Eosinophils (%) (Auto) % (0.0-3.0) Basophils (%) (Auto) % (0.0-2.0) Differential Total Cells Counted 100 Neutrophils % (Manual) 89 % (45-75) H Lymphocytes % (Manual) 6 % (20-45) L Monocytes % (Manual) 5 % (1-10) Eosinophils % (Manual) 0 % (0-3) Basophils % (Manual) 0 % (0-2) Band Neutrophils 0 % (0-8) Platelet Estimate Adequate Platelet Morphology Normal Prothrombin Time 14.0 SEC (9.30-11.50) H Prothromb Time International Ratio 1.3 (0.9-1.1) H Activated Partial Thromboplast Time 37 SEC (23-33) H Sodium Level 138 MMOL/L (136-145) Potassium Level 2.6 MMOL/L (3.5-5.1) *L Chloride Level 105 MMOL/L (98-107) Carbon Dioxide Level 22 MMOL/L (21-32) Anion Gap 11 mmol/L (5-15) Blood Urea Nitrogen 129 mg/dL (7-18) H Creatinine 4.2 MG/DL (0.55-1.30) H Estimat Glomerular Filtration Rate 13.8 mL/min (>60) Glucose Level 96 MG/DL (74-106) Calcium Level 9.4 MG/DL (8.5-10.1) Magnesium Level 2.6 MG/DL (1.8-2.4) H Total Bilirubin 0.4 MG/DL (0.2-1.0) Aspartate Amino Transf (AST/SGOT) 16 U/L (15-37) Alanine Aminotransferase (ALT/SGPT) < 6 U/L (12-78) L Alkaline Phosphatase 142 U/L (46-116) H Troponin I 0.133 ng/mL (0.000-0.056) Pro-B-Type Natriuretic Peptide 15364 pg/mL (0-125) H Total Protein 6.4 G/DL (6.4-8.2) Albumin 1.4 G/DL (3.4-5.0) L Globulin 5.0 g/dL Albumin/Globulin Ratio 0.3 (1.0-2.7) L Thyroid Stimulating Hormone (TSH) 47.028 uiU/mL (0.358-3.740) Test 05/04/20 11:25 05/04/20 17:26 White Blood Count 22.7 K/UL (4.8-10.8) *H Red Blood Count 2.16 M/UL (4.70-6.10) L Hemoglobin 7.6 G/DL (14.2-18.0) L Hematocrit 23.2 % (42.0-52.0) L Mean Corpuscular Volume 108 FL (80-99) H Mean Corpuscular Hemoglobin 35.3 PG (27.0-31.0) H Mean Corpuscular Hemoglobin Concent 32.8 G/DL (32.0-36.0) Red Cell Distribution Width 22.9 % (11.6-14.8) H Platelet Count 271 K/UL (150-450) Mean Platelet Volume 5.9 FL (6.5-10.1) L Neutrophils (%) (Auto) % (45.0-75.0) Lymphocytes (%) (Auto) % (20.0-45.0) Monocytes (%) (Auto) % (1.0-10.0) Eosinophils (%) (Auto) % (0.0-3.0) Basophils (%) (Auto) % (0.0-2.0) Differential Total Cells Counted 100 Neutrophils % (Manual) 66 % (45-75) Lymphocytes % (Manual) 6 % (20-45) L Monocytes % (Manual) 4 % (1-10) Eosinophils % (Manual) 0 % (0-3) Basophils % (Manual) 0 % (0-2) Band Neutrophils 24 % (0-8) H Platelet Estimate Adequate Platelet Morphology Normal Polychromasia 1+ Hypochromasia 1+ Anisocytosis 2+ Macrocytosis 1+ Sodium Level 141 MMOL/L (136-145) Potassium Level 3.3 MMOL/L (3.5-5.1) L Chloride Level 109 MMOL/L (98-107) H Carbon Dioxide Level 20 MMOL/L (21-32) L Anion Gap 12 mmol/L (5-15) Blood Urea Nitrogen 129 mg/dL (7-18) H Creatinine 4.1 MG/DL (0.55-1.30) H Estimat Glomerular Filtration Rate 14.2 mL/min (>60) Glucose Level 96 MG/DL (74-106) Calcium Level 9.1 MG/DL (8.5-10.1) Total Bilirubin 0.4 MG/DL (0.2-1.0) Aspartate Amino Transf (AST/SGOT) 18 U/L (15-37) Alanine Aminotransferase (ALT/SGPT) < 6 U/L (12-78) L Alkaline Phosphatase 126 U/L (46-116) H Total Protein 6.3 G/DL (6.4-8.2) L Albumin 1.4 G/DL (3.4-5.0) L Globulin 4.9 g/dL Albumin/Globulin Ratio 0.3 (1.0-2.7) L Microbiology Date/Time Source Procedure Growth Status 05/03/20 15:40 Rectum Received 05/03/20 14:00 Nasopharynx SARS-CoV-2 RdRp Gene Assay - Final Complete Assessment/Plan Assessment/Plan Shock Sepsis Leukocytosis Anemia Hypokalemia Ventilator dep respiratory failure Severe protein calorie malnutrition Ac/chronic diastolic CHF]Acute renal failure Pressor supoort as able Vent support Antimicrobials IV thyroid replacement IVF with potassium support Consider PRBC transfusion DVT prophylaxis Franko Pineda MD May 05, 2020 00:15
[2020-05-05] MEDS: Norepinephrine 4mg/NS Premix 250 ML IV SCH ×2 (01:47→17:26)
[2020-05-05] MEDS: NS w/KCl 20mEq 1000ml 1,000 ML IV SCH ×3 (04:31→23:11)
[2020-05-05 05:07] LABS: HEMATOCRIT 23.4 % (42.0-52.0); HEMOGLOBIN 7.4 G/DL (14.2-18.0); MEAN CORPUSCULAR VOLUME 109 FL (80-99); PLATELET COUNT 252 K/UL (150-450); RED BLOOD COUNT 2.15 M/UL (4.70-6.10); RED CELL DISTRIBUTION WIDTH 21.9 % (11.6-14.8); WHITE BLOOD COUNT 14.5 K/UL (4.8-10.8)
[2020-05-05] MEDS: Zosyn 2.25 gm in D5W 55ml IV SCH ×3 (05:07→23:11)
[2020-05-05 05:33] LABS: ALANINE AMINOTRANSFERASE < 6 U/L (12-78); ALBUMIN 1.4 G/DL (3.4-5.0); ALBUMIN/GLOBULIN RATIO 0.3 (1.0-2.7); ALKALINE PHOSPHATASE 117 U/L (46-116); ANION GAP 13 mmol/L (5-15); ASPARTATE AMINO TRANSFERASE 26 U/L (15-37); BILIRUBIN,TOTAL 0.4 MG/DL (0.2-1.0); BLOOD UREA NITROGEN 129 mg/dL (7-18); CALCIUM 8.9 MG/DL (8.5-10.1); CARBON DIOXIDE 20 MMOL/L (21-32); CHLORIDE 111 MMOL/L (98-107); CREATININE 4.3 MG/DL (0.55-1.30); SODIUM 144 MMOL/L (136-145)
[2020-05-05] MEDS ORDERED: Vancomycin 1gm/D5W 275ml IVPB ONE ×2 (08:00)
--- NOTE | 2020-05-05 08:10 | Critical Care Progress Note ---
Assessment/Plan Assessment/Plan IMPRESSION: Respiratory failure chronic, chronic encephalopathy, sepsis, leukocytosis, G-tube, aspiration, acute on chronic renal failure, electrolyte abnormality, failure to thrive, severe protein-calorie malnutrition, chronic CO2 retention; Hypoxemia RECOMMENDATIONS: add midodrine; d/w gi as to feeds; Supportive care. IV antibiotics and adjust and discuss. Respiratory support and vent management- taper oxygen needs pending ABG. Feedings. Reviewed [facility] medications. Monitor clinically. Prognosis is overall poor. monitor labs and adjust therapy; oxygen titration renal ID cardiology medications/laboratory data/nursing notes/ICU care reviewed in detail note reviewed and edited care discussed with RN and RT ICU time spent >40 minutes Critical Care - Subjective Interval Events: hypotensive on pressors off feeds noted GT output ROS Limited/Unobtainable: Yes Condition: critical EKG Rhythm: Sinus Rhythm Tube Feeding Tolerated: no I&O: Intake and Output 05/04/20 05/05/20 19:00 07:00 Intake Total 1411.27694 ml 1439.875 ml Output Total 800 ml Balance 1411.71726 ml 639.875 ml IV Total 1411.08624 ml 1439.875 ml Output Gastric Drainage Total 800 ml # Voids 150 105 Critical Care - Objective Last 24 Hour Vital Signs Date Time Temp Pulse Resp B/P (MAP) Pulse Ox O2 Delivery O2 Flow Rate FiO2 05/05/20 07:30 50 05/05/20 07:29 103 35 85 05/05/20 07:00 98 33 99/55 (70) 100 05/05/20 06:30 96 34 97/56 (70) 100 05/05/20 06:15 94 31 96/52 (67) 100 05/05/20 06:00 112 26 117/65 (82) 100 05/05/20 05:45 102 39 108/58 (75) 100 05/05/20 05:30 103 33 113/58 (76) 100 05/05/20 05:15 104 32 113/53 (73) 100 05/05/20 05:04 99 34 85 05/05/20 05:00 103 31 114/56 (75) 100 05/05/20 04:45 102 31 107/58 (74) 100 05/05/20 04:30 100 33 115/64 (81) 100 05/05/20 04:15 99 32 112/57 (75) 100 05/05/20 04:00 Mechanical Ventilator Mechanical Ventilator 05/05/20 04:00 85 05/05/20 04:00 99.3 99 33 111/50 (70) 100 05/05/20 03:45 99 34 113/53 (73) 100 05/05/20 03:30 79 31 110/54 (72) 100 05/05/20 03:28 90 05/05/20 03:15 95 35 100/52 (68) 100 05/05/20 03:15 94 34 85 05/05/20 03:00 98 34 103/55 (71) 100 05/05/20 02:45 100 35 108/57 (74) 100 05/05/20 02:30 97 32 113/56 (75) 100 05/05/20 02:15 97 32 108/64 (79) 100 05/05/20 02:00 93 34 109/56 (73) 100 05/05/20 01:47 102/51 05/05/20 01:45 94 32 102/51 (68) 100 05/05/20 01:30 100 28 109/62 (78) 100 05/05/20 00:42 93 34 85 05/05/20 00:15 95 33 100/51 (67) 100 05/05/20 00:00 Mechanical Ventilator Mechanical Ventilator 05/05/20 00:00 99.3 95 33 105/56 (72) 100 05/04/20 23:45 97 18 98/54 (69) 100 05/04/20 23:39 95 05/04/20 23:30 87 31 98/55 (69) 100 05/04/20 23:15 97 33 95/56 (69) 100 05/04/20 23:00 96 30 97/51 (66) 100 05/04/20 22:53 99 32 85 05/04/20 22:30 97 29 110/64 (79) 100 05/04/20 22:15 99 32 108/61 (77) 100 05/04/20 22:00 100 31 99/55 (70) 100 05/04/20 21:15 102 30 94/54 (67) 100 05/04/20 21:00 97 30 102/53 (69) 100 05/04/20 20:54 96 36 85 05/04/20 20:45 97 36 109/56 (73) 100 05/04/20 20:30 92 31 101/58 (72) 100 05/04/20 20:15 96 31 99/58 (72) 100 05/04/20 20:00 Mechanical Ventilator Mechanical Ventilator 05/04/20 20:00 85 05/04/20 20:00 99.1 92 14 102/57 (72) 100 05/04/20 19:32 95 05/04/20 19:00 88 29 114/64 (81) 100 05/04/20 18:45 86 32 85 05/04/20 18:00 87 33 104/56 (72) 100 05/04/20 17:28 89 31 85 05/04/20 17:00 84 26 110/68 (82) 100 05/04/20 16:01 97.9 89 30 81/55 (64) 100 05/04/20 16:00 94 05/04/20 16:00 85 05/04/20 16:00 89 30 81/55 (64) 100 05/04/20 15:00 92 16 101/60 (74) 100 05/04/20 14:50 88/50 05/04/20 14:30 95 30 85 05/04/20 14:00 88 31 91/50 (64) 91 05/04/20 13:06 101 30 85 05/04/20 13:00 94 27 99/55 (70) 100 05/04/20 12:00 85 05/04/20 12:00 90 05/04/20 12:00 98.6 78 32 111/63 (79) 100 05/04/20 11:28 86 29 85 05/04/20 11:00 82 29 106/62 (77) 100 05/04/20 10:00 83 28 110/68 (82) 100 05/04/20 09:30 87 28 105/64 (78) 100 05/04/20 09:00 87 28 93/67 (76) 100 05/04/20 08:35 82 27 85 05/04/20 08:30 88 29 102/57 (72) 100 Labs: Laboratory Tests Test 05/04/20 08:20 05/04/20 11:25 05/04/20 17:26 05/05/20 04:00 Arterial Blood pH 7.270 (7.350-7.450) Arterial Blood Partial Pressure CO2 45.4 mmHg (35.0-45.0) H Arterial Blood Partial Pressure O2 277.2 mmHg (75.0-100.0) H Arterial Blood HCO3 20.4 mmol/L (22.0-26.0) L Arterial Blood Oxygen Saturation 98.7 % (95-100) Arterial Blood Base Excess -6.4 (-2-2) L [place] Test Positive White Blood Count 22.7 K/UL (4.8-10.8) *H 14.5 K/UL (4.8-10.8) H Red Blood Count 2.16 M/UL (4.70-6.10) L 2.15 M/UL (4.70-6.10) L Hemoglobin 7.6 G/DL (14.2-18.0) L 7.4 G/DL (14.2-18.0) L Hematocrit 23.2 % (42.0-52.0) L 23.4 % (42.0-52.0) L Mean Corpuscular Volume 108 FL (80-99) H 109 FL (80-99) H Mean Corpuscular Hemoglobin 35.3 PG (27.0-31.0) H 34.4 PG (27.0-31.0) H Mean Corpuscular Hemoglobin Concent 32.8 G/DL (32.0-36.0) 31.7 G/DL (32.0-36.0) L Red Cell Distribution Width 22.9 % (11.6-14.8) H 21.9 % (11.6-14.8) H Platelet Count 271 K/UL (150-450) 252 K/UL (150-450) Mean Platelet Volume 5.9 FL (6.5-10.1) L 6.1 FL (6.5-10.1) L Neutrophils (%) (Auto) % (45.0-75.0) % (45.0-75.0) Lymphocytes (%) (Auto) % (20.0-45.0) % (20.0-45.0) Monocytes (%) (Auto) % (1.0-10.0) % (1.0-10.0) Eosinophils (%) (Auto) % (0.0-3.0) % (0.0-3.0) Basophils (%) (Auto) % (0.0-2.0) % (0.0-2.0) Differential Total Cells Counted 100 Neutrophils % (Manual) 66 % (45-75) Pending Lymphocytes % (Manual) 6 % (20-45) L Pending Monocytes % (Manual) 4 % (1-10) Eosinophils % (Manual) 0 % (0-3) Basophils % (Manual) 0 % (0-2) Band Neutrophils 24 % (0-8) H Platelet Estimate Adequate Pending Platelet Morphology Normal Pending Polychromasia 1+ Hypochromasia 1+ Anisocytosis 2+ Macrocytosis 1+ Sodium Level 141 MMOL/L (136-145) 144 MMOL/L (136-145) Potassium Level 3.3 MMOL/L (3.5-5.1) L 3.0 MMOL/L (3.5-5.1) L Chloride Level 109 MMOL/L (98-107) H 111 MMOL/L (98-107) H Carbon Dioxide Level 20 MMOL/L (21-32) L 20 MMOL/L (21-32) L Anion Gap 12 mmol/L (5-15) 13 mmol/L (5-15) Blood Urea Nitrogen 129 mg/dL (7-18) H 129 mg/dL (7-18) H Creatinine 4.1 MG/DL (0.55-1.30) H 4.3 MG/DL (0.55-1.30) H Estimat Glomerular Filtration Rate 14.2 mL/min (>60) 13.4 mL/min (>60) Glucose Level 96 MG/DL (74-106) 80 MG/DL (74-106) Calcium Level 9.1 MG/DL (8.5-10.1) 8.9 MG/DL (8.5-10.1) Total Bilirubin 0.4 MG/DL (0.2-1.0) 0.4 MG/DL (0.2-1.0) Aspartate Amino Transf (AST/SGOT) 18 U/L (15-37) 26 U/L (15-37) Alanine Aminotransferase (ALT/SGPT) < 6 U/L (12-78) L < 6 U/L (12-78) L Alkaline Phosphatase 126 U/L (46-116) H 117 U/L (46-116) H Total Protein 6.3 G/DL (6.4-8.2) L 6.3 G/DL (6.4-8.2) L Albumin 1.4 G/DL (3.4-5.0) L 1.4 G/DL (3.4-5.0) L Globulin 4.9 g/dL 4.9 g/dL Albumin/Globulin Ratio 0.3 (1.0-2.7) L 0.3 (1.0-2.7) L Magnesium Level 2.6 MG/DL (1.8-2.4) H Troponin I 0.184 ng/mL (0.000-0.056) Random Vancomycin Level 12.4 ug/mL Objective: WDWN NAD reduced breath sounds bilaterally without rhonchi or wheeze [id number] without MRG NABS nontender GT no CCE significant contractures nonfocal obtunded trach in place Vent skin noted Micro: Microbiology Date/Time Source Procedure Growth Status 05/03/20 15:40 Rectum Received 05/03/20 15:40 Nasal Nares MRSA Culture - Final NO METHICILLIN RESISTANT STAPH AUREUS... Complete 05/03/20 14:30 Blood Blood Culture - Preliminary Resulted 05/03/20 14:15 Blood Blood Culture - Preliminary Resulted 05/03/20 14:00 Nasopharynx SARS-CoV-2 RdRp Gene Assay - Final Complete Accucheck: 95 Mansoor Martinez MD May 05, 2020 08:10
[2020-05-05] MEDS: Aspirin Baby 81mg NG SCH (08:44)
[2020-05-05] MEDS: Pantoprazole Inj IVP SCH ×2 (08:44→20:37)
[2020-05-05] MEDS: levETIRAcetam 500mg/NS100ml 100 ML IVPB SCH ×2 (08:44→20:37)
[2020-05-05] MEDS: Heparin 5000 units/ml inj SUBQ SCH ×2 (08:46→21:00)
--- NOTE | 2020-05-05 09:11 | General Progress Note ---
Subjective ROS Limited/Unobtainable: Yes Constitutional: Reports: malaise, weakness HEENT: Reports: no symptoms Cardiovascular: Reports: no symptoms Respiratory: Reports: cough, shortness of breath Gastrointestinal/Abdominal: Reports: difficulty swallowing Genitourinary: Reports: no symptoms Neurologic/Psychiatric: Reports: pre-existing deficit, seizure Endocrine: Reports: no symptoms Hematologic/Lymphatic: Reports: anemia Allergies: Coded Allergies: No Known Allergies (Unverified , 02/23/12) All Systems: reviewed and negative except above Subjective no change. poorly responsive. on ivf. on iv levophed. poor uop. labs noted. h/h slightly lower. Dark colored output from GT Objective Last 24 Hour Vital Signs Date Time Temp Pulse Resp B/P (MAP) Pulse Ox O2 Delivery O2 Flow Rate FiO2 05/05/20 07:30 50 05/05/20 07:29 103 35 85 05/05/20 07:00 98 33 99/55 (70) 100 05/05/20 06:30 96 34 97/56 (70) 100 05/05/20 06:15 94 31 96/52 (67) 100 05/05/20 06:00 112 26 117/65 (82) 100 05/05/20 05:45 102 39 108/58 (75) 100 05/05/20 05:30 103 33 113/58 (76) 100 05/05/20 05:15 104 32 113/53 (73) 100 05/05/20 05:04 99 34 85 05/05/20 05:00 103 31 114/56 (75) 100 05/05/20 04:45 102 31 107/58 (74) 100 05/05/20 04:30 100 33 115/64 (81) 100 05/05/20 04:15 99 32 112/57 (75) 100 05/05/20 04:00 Mechanical Ventilator Mechanical Ventilator 05/05/20 04:00 85 05/05/20 04:00 99.3 99 33 111/50 (70) 100 05/05/20 03:45 99 34 113/53 (73) 100 05/05/20 03:30 79 31 110/54 (72) 100 05/05/20 03:28 90 05/05/20 03:15 95 35 100/52 (68) 100 05/05/20 03:15 94 34 85 05/05/20 03:00 98 34 103/55 (71) 100 05/05/20 02:45 100 35 108/57 (74) 100 05/05/20 02:30 97 32 113/56 (75) 100 05/05/20 02:15 97 32 108/64 (79) 100 05/05/20 02:00 93 34 109/56 (73) 100 05/05/20 01:47 102/51 05/05/20 01:45 94 32 102/51 (68) 100 05/05/20 01:30 100 28 109/62 (78) 100 05/05/20 00:42 93 34 85 05/05/20 00:15 95 33 100/51 (67) 100 05/05/20 00:00 Mechanical Ventilator Mechanical Ventilator 05/05/20 00:00 99.3 95 33 105/56 (72) 100 05/04/20 23:45 97 18 98/54 (69) 100 05/04/20 23:39 95 05/04/20 23:30 87 31 98/55 (69) 100 05/04/20 23:15 97 33 95/56 (69) 100 05/04/20 23:00 96 30 97/51 (66) 100 05/04/20 22:53 99 32 85 05/04/20 22:30 97 29 110/64 (79) 100 05/04/20 22:15 99 32 108/61 (77) 100 05/04/20 22:00 100 31 99/55 (70) 100 05/04/20 21:15 102 30 94/54 (67) 100 05/04/20 21:00 97 30 102/53 (69) 100 05/04/20 20:54 96 36 85 05/04/20 20:45 97 36 109/56 (73) 100 05/04/20 20:30 92 31 101/58 (72) 100 05/04/20 20:15 96 31 99/58 (72) 100 05/04/20 20:00 Mechanical Ventilator Mechanical Ventilator 05/04/20 20:00 85 05/04/20 20:00 99.1 92 14 102/57 (72) 100 05/04/20 19:32 95 05/04/20 19:00 88 29 114/64 (81) 100 05/04/20 18:45 86 32 85 05/04/20 18:00 87 33 104/56 (72) 100 05/04/20 17:28 89 31 85 05/04/20 17:00 84 26 110/68 (82) 100 05/04/20 16:01 97.9 89 30 81/55 (64) 100 05/04/20 16:00 94 05/04/20 16:00 85 05/04/20 16:00 89 30 81/55 (64) 100 05/04/20 15:00 92 16 101/60 (74) 100 05/04/20 14:50 88/50 05/04/20 14:30 95 30 85 05/04/20 14:00 88 31 91/50 (64) 91 05/04/20 13:06 101 30 85 05/04/20 13:00 94 27 99/55 (70) 100 05/04/20 12:00 85 05/04/20 12:00 90 05/04/20 12:00 98.6 78 32 111/63 (79) 100 05/04/20 11:28 86 29 85 05/04/20 11:00 82 29 106/62 (77) 100 05/04/20 10:00 83 28 110/68 (82) 100 05/04/20 09:30 87 28 105/64 (78) 100 Intake and Output 05/04/20 05/05/20 19:00 07:00 Intake Total 1411.19738 ml 1439.875 ml Output Total 800 ml Balance 1411.77884 ml 639.875 ml IV Total 1411.71719 ml 1439.875 ml Output Gastric Drainage Total 800 ml # Voids 150 105 Laboratory Tests 05/04/20 11:25: White Blood Count 22.7*H, Red Blood Count 2.16L, Hemoglobin 7.6L, Hematocrit 23.2L, Mean Corpuscular Volume 108H, Mean Corpuscular Hemoglobin 35.3H, Mean Corpuscular Hemoglobin Concent 32.8, Red Cell Distribution Width 22.9H, Platelet Count 271, Mean Platelet Volume 5.9L, Neutrophils (%) (Auto) , Lymphocytes (%) (Auto) , Monocytes (%) (Auto) , Eosinophils (%) (Auto) , Basophils (%) (Auto) , Differential Total Cells Counted 100, Neutrophils % (Manual) 66, Lymphocytes % (Manual) 6L, Monocytes % (Manual) 4, Eosinophils % (Manual) 0, Basophils % (Manual) 0, Band Neutrophils 24H, Platelet Estimate Adequate, Platelet Morphology Normal, Polychromasia 1+, Hypochromasia 1+, Anisocytosis 2+, Macrocytosis 1+ 05/04/20 17:26: Sodium Level 141, Potassium Level 3.3L, Chloride Level 109H, Carbon Dioxide Level 20L, Anion Gap 12, Blood Urea Nitrogen 129H, Creatinine 4.1H, Estimat Glomerular Filtration Rate 14.2, Glucose Level 96, Calcium Level 9.1, Total Bilirubin 0.4, Aspartate Amino Transf (AST/SGOT) 18, Alanine Aminotransferase (ALT/SGPT) < 6L, Alkaline Phosphatase 126H, Total Protein 6.3L, Albumin 1.4L, Globulin 4.9, Albumin/Globulin Ratio 0.3L 05/05/20 04:00: White Blood Count 14.5H, Red Blood Count 2.15L, Hemoglobin 7.4L, Hematocrit 23.4L, Mean Corpuscular Volume 109H, Mean Corpuscular Hemoglobin 34.4H, Mean Corpuscular Hemoglobin Concent 31.7L, Red Cell Distribution Width 21.9H, Platelet Count 252, Mean Platelet Volume 6.1L, Neutrophils (%) (Auto) , Lymphocytes (%) (Auto) , Monocytes (%) (Auto) , Eosinophils (%) (Auto) , Basophils (%) (Auto) , Neutrophils % (Manual) [Pending], Lymphocytes % (Manual) [Pending], Platelet Estimate [Pending], Platelet Morphology [Pending], Sodium L evel 144, Potassium Level 3.0L, Chloride Level 111H, Carbon Dioxide Level 20L, Anion Gap 13, Blood Urea Nitrogen 129H, Creatinine 4.3H, Estimat Glomerular Filtration Rate 13.4, Glucose Level 80, Calcium Level 8.9, Total Bilirubin 0.4, Aspartate Amino Transf (AST/SGOT) 26, Alanine Aminotransferase (ALT/SGPT) < 6L, Alkaline Phosphatase 117H, Total Protein 6.3L, Albumin 1.4L, Globulin 4.9, Albumin/Globulin Ratio 0.3L, Magnesium Level 2.6H, Troponin I 0.184H, Random Vancomycin Level 12.4 Height (Feet): 5 Height (Inches): 7.00 Weight (Pounds): 150 General Appearance: WD/WN, lethargic, confused EENT: PERRL/EOMI, normal ENT inspection Neck: non-tender, normal alignment, supple Cardiovascular: normal peripheral pulses, normal rate Respiratory/Chest: chest wall non-tender, rhonchi - bilaterally Abdomen: normal bowel sounds, non tender, soft, no organomegaly Edema: no edema noted Arm (L), no edema noted Arm (R) Neurologic: disoriented, unresponsive, aphasia Skin: normal pigmentation Assessment/Plan Problem List: (1) Dehydration ICD Codes: E86.0 - Dehydration SNOMED: 28320980 (2) Ventilator associated pneumonia ICD Codes: J95.851 - Ventilator associated pneumonia SNOMED: 167671997, 87448762 (3) AUDREY (acute kidney injury) ICD Codes: N17.9 - Acute kidney failure, unspecified SNOMED: 2315106, 52058997 (4) Anemia ICD Codes: D64.9 - Anemia, unspecified SNOMED: 991936986, 833155074 (5) HCAP (healthcare-associated pneumonia) ICD Codes: J18.9 - Pneumonia, unspecified organism SNOMED: 933068328, 112276488 (6) CKD (chronic kidney disease) stage 3, GFR 30-59 ml/min ICD Codes: N18.3 - Chronic kidney disease, stage 3 (moderate) SNOMED: 718967640 (7) GIB (gastrointestinal bleeding) ICD Codes: K92.2 - Gastrointestinal hemorrhage, unspecified SNOMED: 21637564 (8) ARF (acute renal failure) ICD Codes: N17.9 - Acute kidney failure, unspecified SNOMED: 72914733, 491293931 (9) Pneumonia ICD Codes: J18.9 - Pneumonia, unspecified organism SNOMED: 631238831 (10) UTI (urinary tract infection) ICD Codes: N39.0 - Urinary tract infection, site not specified SNOMED: 16582633, 270950444 (11) Sepsis ICD Codes: A41.9 - Sepsis, unspecified organism SNOMED: 15173758 (12) Respiratory failure ICD Codes: J96.90 - Respiratory failure, unspecified, unspecified whether with hypoxia or hypercapnia SNOMED: 978368733 Status: stable, not improved Assessment/Plan: cont ivf renal eval IV abx follow up cultures vent support resp rx tube feeds pressors as needed transfuse as needed wound care critical and guarded Jimi Tellez MD May 05, 2020 09:11
--- NOTE | 2020-05-05 10:18 | Diagnostic Imaging Report ---
Indication: Shortness of breath Technique: One view of the chest Comparison: 05/04/2020 Findings: Bilateral interstitial disease and left basilar airspace consolidation persists, unchanged. Right jugular central venous catheter is again demonstrated. Bilateral left greater than right pleural effusions are evident. Tracheostomy remains Impression: Unchanged, over one day, findings as above.
--- NOTE | 2020-05-05 10:28 | Diagnostic Imaging Report ---
Indication: Abdominal pain Technique: Supine view of the abdomen Comparison: 04/08/2020 Findings: Again demonstrated is a gastrostomy. Again demonstrated is distention of a short segment of the colon, probably the sigmoid. This is also demonstrated on prior radiograph., But not evident on prior 03/09/2020 CT scan. Prominent gas-filled small bowel loops are again demonstrated, not frankly dilated. No masses or unusual calcifications. Extensive parenchymal disease is seen at the left lung base and in the bilateral upper lungs Impression: Dilated gas-filled colon, probably sigmoid. Similarity to prior exam suggests that this is more likely functional, but the possibility of distal colonic obstruction should also be considered
[2020-05-05] MEDS ORDERED: Potassium Chl 10mEq/100ml 110 ML IVPB ONE (11:00)
--- NOTE | 2020-05-05 13:00 | Consultation ---
DATE OF CONSULTATION: 05/05/2020 INFECTIOUS DISEASES CONSULTATION CONSULTING PHYSICIAN: Isaak Hair MD. REFERRING PHYSICIAN: Jimi Tellez MD. REASON FOR CONSULTATION: Pneumonia and leukocytosis. HISTORY OF PRESENTING ILLNESS: This is a 80-year-old gentleman with history of respiratory failure, status post tracheostomy, congestive heart failure, stroke, seizures, chronic kidney disease, who [facility] with shortness of breath. He was found to be hypoxic with leukocytosis and bilateral pneumonia and an Infectious Diseases consultation has been obtained for antibiotics. PAST MEDICAL HISTORY: 1. History of respiratory failure, status post tracheostomy. 2. Congestive heart failure. 3. Dysphagia. 4. Stroke. 5. Seizure disorder. 6. Chronic kidney disease. 7. Anemia. 8. Status post G-tube placement. SOCIAL HISTORY: He does not smoke, drink, or use drugs. FAMILY HISTORY: Unknown. REVIEW OF SYSTEMS: Unable to obtain currently. MEDICATIONS: As an inpatient, he is on potassium, midodrine, levothyroxine, levetiracetam, Protonix, chlorhexidine gluconate, subcutaneous heparin, aspirin, norepinephrine, Zosyn, IV vancomycin, clonidine, Tylenol. ALLERGIES: No known drug allergies. PHYSICAL EXAMINATION: VITAL SIGNS: Temperature of 98.1, T-max of 99.3, pulse of 96, respiratory rate , blood pressure 103/48, O2 saturation of 100%. HEENT: Pupils equally reactive to light and accommodation. NECK: Tracheostomy site appears clean. CARDIOVASCULAR: Regular rate and rhythm. No murmurs. LUNGS: Clear to auscultation bilaterally. No crackles. No wheezes. ABDOMEN: Soft, nontender. G-tube site drainage noted. EXTREMITIES: No cyanosis. No clubbing. Edema noted bilaterally. Right IJ catheter noted. LABORATORY AND DIAGNOSTIC DATA: White count of 23.5 on 05/03/2020, white count of 14.5 today, hemoglobin 7.4, hematocrit 23.4, MCV 109, platelet count of 252, with neutrophils of 87%. Sodium 144, potassium 3, chloride 111, bicarb 20, BUN 129, creatinine 4.3, glucose of 80, calcium 8.9, magnesium 2.6. Total bilirubin 0.4. AST 26, ALT less than 6, alkaline phosphatase 117. Troponin 0.184. Total protein 6.3, albumin 1.4. Blood cultures on 05/03/2020 showing gram-positive cocci in clusters. COVID-19 test was negative on 05/03/2020. Sputum culture showing gram-negative rods. Rectal swab was positive for VRE. Nasal swab was negative for MRSA. Chest x-ray showing bilateral interstitial disease and left base airspace consolidation, bilateral left greater than right pleural effusions noted. ASSESSMENT: This is a 80-year-old gentleman with history of respiratory failure, status post tracheostomy, congestive heart failure, stroke, seizures, who comes in with shortness of breath and is found to have, 1. Gram-positive sepsis. 2. Gram-negative pneumonia. 3. Renal failure. 4. Respiratory failure. 5. Seizure disorder. 6. Septic shock. PLAN: 1. Continue Zosyn. 2. Discontinue IV vancomycin. 3. We will start the patient on linezolid. 4. We will follow up cultures and adjust antibiotics accordingly. I would like to thank, Dr. Tellez, for this consultation. Isaak Hair M.D. DR: ROSITA JOB#: [id number] CC: Jimi Tellez MD.
--- NOTE | 2020-05-05 15:10 | Cardiology Progress Note ---
Subjective DATE OF SERVICE: May 05, 2020 Remains Critical & Guarded On vent support Requiring pressor support - on norepinephrine IV thyroid replacement for TSH of 49. Has coffee grounds from [employer]. Renal function remains impaired; urine output poor. Objective Last 24 Hour Vital Signs Date Time Temp Pulse Resp B/P (MAP) Pulse Ox O2 Delivery O2 Flow Rate FiO2 05/05/20 12:00 50 05/05/20 11:16 98 32 85 05/05/20 10:00 96 34 103/48 (66) 100 05/05/20 09:20 97 35 85 05/05/20 09:00 96 34 90/51 (64) 98 05/05/20 08:30 102 36 112/57 (75) 98 05/05/20 08:00 97 05/05/20 08:00 98.1 100 33 115/57 (76) 98 05/05/20 07:30 99 32 109/60 (76) 100 05/05/20 07:30 50 05/05/20 07:29 103 35 85 05/05/20 07:00 98 33 99/55 (70) 100 05/05/20 06:30 96 34 97/56 (70) 100 05/05/20 06:15 94 31 96/52 (67) 100 05/05/20 06:00 112 26 117/65 (82) 100 05/05/20 05:45 102 39 108/58 (75) 100 05/05/20 05:30 103 33 113/58 (76) 100 05/05/20 05:15 104 32 113/53 (73) 100 05/05/20 05:04 99 34 85 05/05/20 05:00 103 31 114/56 (75) 100 05/05/20 04:45 102 31 107/58 (74) 100 05/05/20 04:30 100 33 115/64 (81) 100 05/05/20 04:15 99 32 112/57 (75) 100 05/05/20 04:00 Mechanical Ventilator Mechanical Ventilator 05/05/20 04:00 85 05/05/20 04:00 99.3 99 33 111/50 (70) 100 05/05/20 03:45 99 34 113/53 (73) 100 05/05/20 03:30 79 31 110/54 (72) 100 05/05/20 03:28 90 05/05/20 03:15 95 35 100/52 (68) 100 05/05/20 03:15 94 34 85 05/05/20 03:00 98 34 103/55 (71) 100 05/05/20 02:45 100 35 108/57 (74) 100 05/05/20 02:30 97 32 113/56 (75) 100 05/05/20 02:15 97 32 108/64 (79) 100 05/05/20 02:00 93 34 109/56 (73) 100 05/05/20 01:47 102/51 05/05/20 01:45 94 32 102/51 (68) 100 05/05/20 01:30 100 28 109/62 (78) 100 05/05/20 00:42 93 34 85 05/05/20 00:15 95 33 100/51 (67) 100 05/05/20 00:00 Mechanical Ventilator Mechanical Ventilator 05/05/20 00:00 99.3 95 33 105/56 (72) 100 05/04/20 23:45 97 18 98/54 (69) 100 05/04/20 23:39 95 05/04/20 23:30 87 31 98/55 (69) 100 05/04/20 23:15 97 33 95/56 (69) 100 05/04/20 23:00 96 30 97/51 (66) 100 05/04/20 22:53 99 32 85 05/04/20 22:30 97 29 110/64 (79) 100 05/04/20 22:15 99 32 108/61 (77) 100 05/04/20 22:00 100 31 99/55 (70) 100 05/04/20 21:15 102 30 94/54 (67) 100 05/04/20 21:00 97 30 102/53 (69) 100 05/04/20 20:54 96 36 85 05/04/20 20:45 97 36 109/56 (73) 100 05/04/20 20:30 92 31 101/58 (72) 100 05/04/20 20:15 96 31 99/58 (72) 100 05/04/20 20:00 Mechanical Ventilator Mechanical Ventilator 05/04/20 20:00 85 05/04/20 20:00 99.1 92 14 102/57 (72) 100 05/04/20 19:32 95 11/20 19:00 88 29 114/64 (81) 100 05/04/20 18:45 86 32 85 05/04/20 18:00 87 33 104/56 (72) 100 05/04/20 17:28 89 31 85 05/04/20 17:00 84 26 110/68 (82) 100 05/04/20 16:01 97.9 89 30 81/55 (64) 100 05/04/20 16:00 94 05/04/20 16:00 85 05/04/20 16:00 89 30 81/55 (64) 100 HEENT: Thick Trach secretions RHYTHM: ST LUNGS: bilateral rhonchi CARDIAC: normal rate, regular rhythm, normal S1 and S2 ABDOMEN: normal bowel sounds, soft, no organomegaly, G-Tube intact EXTREMITIES: trace edema Laboratory Tests Test 05/04/20 17:26 05/05/20 04:00 Sodium Level 141 MMOL/L (136-145) 144 MMOL/L (136-145) Potassium Level 3.3 MMOL/L (3.5-5.1) L 3.0 MMOL/L (3.5-5.1) L Chloride Level 109 MMOL/L (98-107) H 111 MMOL/L (98-107) H Carbon Dioxide Level 20 MMOL/L (21-32) L 20 MMOL/L (21-32) L Anion Gap 12 mmol/L (5-15) 13 mmol/L (5-15) Blood Urea Nitrogen 129 mg/dL (7-18) H 129 mg/dL (7-18) H Creatinine 4.1 MG/DL (0.55-1.30) H 4.3 MG/DL (0.55-1.30) H Estimat Glomerular Filtration Rate 14.2 mL/min (>60) 13.4 mL/min (>60) Glucose Level 96 MG/DL (74-106) 80 MG/DL (74-106) Calcium Level 9.1 MG/DL (8.5-10.1) 8.9 MG/DL (8.5-10.1) Total Bilirubin 0.4 MG/DL (0.2-1.0) 0.4 MG/DL (0.2-1.0) Aspartate Amino Transf (AST/SGOT) 18 U/L (15-37) 26 U/L (15-37) Alanine Aminotransferase (ALT/SGPT) < 6 U/L (12-78) L < 6 U/L (12-78) L Alkaline Phosphatase 126 U/L (46-116) H 117 U/L (46-116) H Total Protein 6.3 G/DL (6.4-8.2) L 6.3 G/DL (6.4-8.2) L Albumin 1.4 G/DL (3.4-5.0) L 1.4 G/DL (3.4-5.0) L Globulin 4.9 g/dL 4.9 g/dL Albumin/Globulin Ratio 0.3 (1.0-2.7) L 0.3 (1.0-2.7) L White Blood Count 14.5 K/UL (4.8-10.8) H Red Blood Count 2.15 M/UL (4.70-6.10) L Hemoglobin 7.4 G/DL (14.2-18.0) L Hematocrit 23.4 % (42.0-52.0) L Mean Corpuscular Volume 109 FL (80-99) H Mean Corpuscular Hemoglobin 34.4 PG (27.0-31.0) H Mean Corpuscular Hemoglobin Concent 31.7 G/DL (32.0-36.0) L Red Cell Distribution Width 21.9 % (11.6-14.8) H Platelet Count 252 K/UL (150-450) Mean Platelet Volume 6.1 FL (6.5-10.1) L Neutrophils (%) (Auto) % (45.0-75.0) Lymphocytes (%) (Auto) % (20.0-45.0) Monocytes (%) (Auto) % (1.0-10.0) Eosinophils (%) (Auto) % (0.0-3.0) Basophils (%) (Auto) % (0.0-2.0) Differential Total Cells Counted 100 Neutrophils % (Manual) 87 % (45-75) H Lymphocytes % (Manual) 7 % (20-45) L Monocytes % (Manual) 3 % (1-10) Eosinophils % (Manual) 0 % (0-3) Basophils % (Manual) 0 % (0-2) Band Neutrophils 3 % (0-8) Platelet Estimate Adequate Platelet Morphology Normal Hypochromasia 1+ Anisocytosis 2+ Macrocytosis 1+ Magnesium Level 2.6 MG/DL (1.8-2.4) H Troponin I 0.184 ng/mL (0.000-0.056) Random Vancomycin Level 12.4 ug/mL Microbiology Date/Time Source Procedure Growth Status 05/04/20 08:30 Sputum Gram Stain - Final Resulted 05/04/20 08:30 Sputum Culture - Preliminary Gram Negative Bacillus 1 Resulted 05/03/20 15:40 Rectum VRE Culture - Final Enterococcus Faecalis - Vre Complete 05/03/20 15:40 Nasal Nares MRSA Culture - Final NO METHICILLIN RESISTANT STAPH AUREUS... Complete 05/03/20 14:30 Blood Blood Culture - Preliminary Resulted 05/03/20 14:15 Blood Blood Culture - Preliminary Resulted 05/03/20 14:00 Nasopharynx SARS-CoV-2 RdRp Gene Assay - Final Complete Assessment/Plan Assessment/Plan Shock Sepsis Leukocytosis Anemia Hypokalemia Ventilator dep respiratory failure Severe protein calorie malnutrition Ac/chronic diastolic CHF]Acute renal failure Pressor support as needed Vent support Antimicrobials IV thyroid replacement IVF with potassium support Consider PRBC transfusion; hold all anti-plt and anti-coagulants. DVT prophylaxis Possible dialysis per renal Franko Pineda MD May 05, 2020 15:10
--- NOTE | 2020-05-05 15:15 | Consultation ---
DATE OF CONSULTATION: 05/05/2020 NEPHROLOGY CONSULTATION CONSULTING PHYSICIAN: Ayanna Maldonado MD. ATTENDING PHYSICIAN: Jimi Tellez MD. REASON FOR CONSULTATION: Elevated BUN and creatinine, abnormal electrolytes. HISTORY OF PRESENT ILLNESS: This is a well-known 80-year-old male who I have seen several times during the admission to this hospital. The patient was admitted by his attending doctor, Dr. Tellez, for sepsis, shock and respiratory failure. The patient is nonverbal. He is in ICU. I am asked to see the patient for extreme elevation of BUN and creatinine and abnormal electrolytes. PAST MEDICAL HISTORY: 1. Ventilator-dependent respiratory failure. 2. Organic brain syndrome. 3. Encephalopathy. 4. Status post G-tube. 5. Seizure disorder. 6. Chronic kidney disease/end-stage renal failure, known from previous admission about 2 months ago in this hospital. 7. Recurrent septicemia. 8. Anemia of chronic kidney disease. 9. Hypothyroidism. MEDICATIONS: Keppra, Levophed, linezolid, IV fluids normal saline, Zosyn, IV vancomycin, Tylenol p.r.n., baby aspirin, clonidine p.r.n., Epogen, oral iron, subcutaneous heparin, Synthroid, midodrine, Protonix, sodium bicarbonate, which was discontinued. ALLERGIES: No known allergies. FAMILY HISTORY: Unable to obtain due to mental status. SOCIAL HISTORY: Unable to obtain due to mental status. REVIEW OF SYSTEMS: Unable to obtain due to mental status. PHYSICAL EXAMINATION: GENERAL: This is an elderly cachectic male, who is on a ventilator. VITAL SIGNS: Blood pressure 103/48, pulse 98, respirations 32. O2 saturation is 100% on FiO2 85%. HEENT: The head is normocephalic. Pupils are equal and round. NECK: He has tracheostomy. LUNGS: Bilateral rhonchi. HEART: Tachycardia. S1 and S2. No rubs, murmurs, or gallops. ABDOMEN: Soft and nontender. Bowel sounds were active. He has a G-tube. EXTREMITIES: He has deformities in all major joints. He has 2+ ankle edema. NEUROLOGIC: The patient is obtunded. There were no gross focal findings. LABORATORY AND DIAGNOSTIC DATA: Sodium 144, potassium 3, CO2 20, BUN 129, creatinine 4.3 EGFR 13.4. Albumin 1.4. INR 1.3. ABGs last done yesterday, pH 7.27, pCO2 45, pO2 277, bicarbonate 20.4. CBC, white count 14,500, hematocrit 23.4, and platelet count 252,000. Chest x-ray, bilateral interstitial disease and left basilar airspace consolidation persist unchanged. Right jugular central venous catheter. Abdominal x-ray shows dilated gas-filled colon, probably sigmoid similar to prior exams, most likely functional. ASSESSMENT: 1. End-stage renal failure superimposed on CKD. 2. Ventilator-dependent respiratory failure. 3. Organic brain syndrome. 4. Encephalopathy. 5. Status post G-tube. 6. Seizure disorder. 7. Chronic kidney disease/end-stage renal failure, known from previous admission about 2 months ago in this hospital. 8. Recurrent septicemia. 9. Anemia of chronic kidney disease. 10. Hypothyroidism. PLAN: Plan is to discuss with conservator. Discussed with Dr. Tellez. Ayanna Maldonado M.D. DR: TOSIN JOB#: [id number] CC:
--- NOTE | 2020-05-05 16:43 | Surgery Progress Note ---
Surgery Progress Note Subjective Additional Comments HD line placed today at bedside see operative note Objective Last 24 Hour Vital Signs Date Time Temp Pulse Resp B/P (MAP) Pulse Ox O2 Delivery O2 Flow Rate FiO2 05/05/20 16:15 71 26 93/62 (72) 93 05/05/20 16:00 74 05/05/20 16:00 99.2 72 30 98/66 (77) 92 05/05/20 16:00 50 05/05/20 15:45 86 17 100/64 (76) 91 05/05/20 15:30 80 29 94/56 (69) 92 05/05/20 15:15 82 31 97/60 (72) 93 05/05/20 15:14 88 31 50 05/05/20 15:00 86 30 98/53 (68) 93 05/05/20 14:30 85 31 90/51 (64) 99 05/05/20 14:15 105 32 103/54 (70) 100 05/05/20 14:00 103 36 102/54 (70) 99 05/05/20 13:45 103 35 100/52 (68) 99 05/05/20 13:30 101 31 100/50 (67) 99 05/05/20 13:15 89 30 50 05/05/20 13:15 104 33 93/55 (68) 99 05/05/20 13:00 102 35 96/48 (64) 99 05/05/20 12:45 106 35 94/52 (66) 99 05/05/20 12:30 105 28 94/53 (67) 99 05/05/20 12:15 105 30 106/49 (68) 99 05/05/20 12:00 50 05/05/20 12:00 99.0 104 39 104/48 (66) 99 05/05/20 12:00 105 05/05/20 11:45 96 37 110/60 (77) 99 05/05/20 11:30 100 39 121/55 (77) 99 05/05/20 11:16 98 32 50 05/05/20 11:00 96 36 103/55 (71) 99 05/05/20 10:30 98 37 96/51 (66) 100 05/05/20 10:00 96 34 103/48 (66) 100 05/05/20 09:20 97 35 50 05/05/20 09:00 96 34 90/51 (64) 98 05/05/20 08:30 102 36 112/57 (75) 98 05/05/20 08:00 97 05/05/20 08:00 98.1 100 33 115/57 (76) 98 05/05/20 07:30 99 32 109/60 (76) 100 05/05/20 07:30 50 05/05/20 07:29 103 35 50 05/05/20 07:00 98 33 99/55 (70) 100 05/05/20 06:30 96 34 97/56 (70) 100 05/05/20 06:15 94 31 96/52 (67) 100 05/05/20 06:00 112 26 117/65 (82) 100 05/05/20 05:45 102 39 108/58 (75) 100 05/05/20 05:30 103 33 113/58 (76) 100 05/05/20 05:15 104 32 113/53 (73) 100 05/05/20 05:04 99 34 85 05/05/20 05:00 103 31 114/56 (75) 100 05/05/20 04:45 102 31 107/58 (74) 100 05/05/20 04:30 100 33 115/64 (81) 100 05/05/20 04:15 99 32 112/57 (75) 100 05/05/20 04:00 Mechanical Ventilator Mechanical Ventilator 05/05/20 04:00 85 05/05/20 04:00 99.3 99 33 111/50 (70) 100 05/05/20 03:45 99 34 113/53 (73) 100 05/05/20 03:30 79 31 110/54 (72) 100 05/05/20 03:28 90 05/05/20 03:15 95 35 100/52 (68) 100 05/05/20 03:15 94 34 85 05/05/20 03:00 98 34 103/55 (71) 100 05/05/20 02:45 100 35 108/57 (74) 100 05/05/20 02:30 97 32 113/56 (75) 100 05/05/20 02:15 97 32 108/64 (79) 100 05/05/20 02:00 93 34 109/56 (73) 100 11/6/20 01:47 102/51 05/05/20 01:45 94 32 102/51 (68) 100 05/05/20 01:30 100 28 109/62 (78) 100 05/05/20 00:42 93 34 85 05/05/20 00:15 95 33 100/51 (67) 100 05/05/20 00:00 Mechanical Ventilator Mechanical Ventilator 05/05/20 00:00 99.3 95 33 105/56 (72) 100 05/04/20 23:45 97 18 98/54 (69) 100 05/04/20 23:39 95 05/04/20 23:30 87 31 98/55 (69) 100 05/04/20 23:15 97 33 95/56 (69) 100 05/04/20 23:00 96 30 97/51 (66) 100 05/04/20 22:53 99 32 85 05/04/20 22:30 97 29 110/64 (79) 100 05/04/20 22:15 99 32 108/61 (77) 100 05/04/20 22:00 100 31 99/55 (70) 100 05/04/20 21:15 102 30 94/54 (67) 100 05/04/20 21:00 97 30 102/53 (69) 100 05/04/20 20:54 96 36 85 05/04/20 20:45 97 36 109/56 (73) 100 05/04/20 20:30 92 31 101/58 (72) 100 05/04/20 20:15 96 31 99/58 (72) 100 05/04/20 20:00 Mechanical Ventilator Mechanical Ventilator 05/04/20 20:00 85 05/04/20 20:00 99.1 92 14 102/57 (72) 100 05/04/20 19:32 95 05/04/20 19:00 88 29 114/64 (81) 100 05/04/20 18:45 86 32 85 05/04/20 18:00 87 33 104/56 (72) 100 05/04/20 17:28 89 31 85 05/04/20 17:00 84 26 110/68 (82) 100 I&O Intake and Output 05/04/20 05/05/20 19:00 07:00 Intake Total 1411.52759 ml 1512.375 ml Output Total 800 ml Balance 1411.78655 ml 712.375 ml IV Total 1411.06320 ml 1512.375 ml Gastric Drainage Total 800 ml # Voids 150 105 Laboratory Tests Test 05/04/20 17:26 05/05/20 04:00 Sodium Level 141 MMOL/L (136-145) 144 MMOL/L (136-145) Potassium Level 3.3 MMOL/L (3.5-5.1) L 3.0 MMOL/L (3.5-5.1) L Chloride Level 109 MMOL/L (98-107) H 111 MMOL/L (98-107) H Carbon Dioxide Level 20 MMOL/L (21-32) L 20 MMOL/L (21-32) L Anion Gap 12 mmol/L (5-15) 13 mmol/L (5-15) Blood Urea Nitrogen 129 mg/dL (7-18) H 129 mg/dL (7-18) H Creatinine 4.1 MG/DL (0.55-1.30) H 4.3 MG/DL (0.55-1.30) H Estimat Glomerular Filtration Rate 14.2 mL/min (>60) 13.4 mL/min (>60) Glucose Level 96 MG/DL (74-106) 80 MG/DL (74-106) Calcium Level 9.1 MG/DL (8.5-10.1) 8.9 MG/DL (8.5-10.1) Total Bilirubin 0.4 MG/DL (0.2-1.0) 0.4 MG/DL (0.2-1.0) Aspartate Amino Transf (AST/SGOT) 18 U/L (15-37) 26 U/L (15-37) Alanine Aminotransferase (ALT/SGPT) < 6 U/L (12-78) L < 6 U/L (12-78) L Alkaline Phosphatase 126 U/L (46-116) H 117 U/L (46-116) H Total Protein 6.3 G/DL (6.4-8.2) L 6.3 G/DL (6.4-8.2) L Albumin 1.4 G/DL (3.4-5.0) L 1.4 G/DL (3.4-5.0) L Globulin 4.9 g/dL 4.9 g/dL Albumin/Globulin Ratio 0.3 (1.0-2.7) L 0.3 (1.0-2.7) L White Blood Count 14.5 K/UL (4.8-10.8) H Red Blood Count 2.15 M/UL (4.70-6.10) L Hemoglobin 7.4 G/DL (14.2-18.0) L Hematocrit 23.4 % (42.0-52.0) L Mean Corpuscular Volume 109 FL (80-99) H Mean Corpuscular Hemoglobin 34.4 PG (27.0-31.0) H Mean Corpuscular Hemoglobin Concent 31.7 G/DL (32.0-36.0) L Red Cell Distribution Width 21.9 % (11.6-14.8) H Platelet Count 252 K/UL (150-450) Mean Platelet Volume 6.1 FL (6.5-10.1) L Neutrophils (%) (Auto) % (45.0-75.0) Lymphocytes (%) (Auto) % (20.0-45.0) Monocytes (%) (Auto) % (1.0-10.0) Eosinophils (%) (Auto) % (0.0-3.0) Basophils (%) (Auto) % (0.0-2.0) Differential Total Cells Counted 100 Neutrophils % (Manual) 87 % (45-75) H Lymphocytes % (Manual) 7 % (20-45) L Monocytes % (Manual) 3 % (1-10) Eosinophils % (Manual) 0 % (0-3) Basophils % (Manual) 0 % (0-2) Band Neutrophils 3 % (0-8) Platelet Estimate Adequate Platelet Morphology Normal Hypochromasia 1+ Anisocytosis 2+ Macrocytosis 1+ Magnesium Level 2.6 MG/DL (1.8-2.4) H Troponin I 0.184 ng/mL (0.000-0.056) Random Vancomycin Level 12.4 ug/mL Plan Problems: (1) Dehydration (2) Ventilator associated pneumonia (3) AUDREY (acute kidney injury) (4) Hypokalemia (5) Hyperkalemia (6) Hypomagnesemia (7) Anemia (8) Decubitus skin ulcer Assessment & Plan: Pt presented on admission with gross contractures, Multiple Pressure Injuries, Tracheostomy. Skin Assessed under tracheal collar and no evidence of skin breakdown noted. Tear noted to urinary meatus- no exudate noted. Scrotum is erythematous with scattered satellite lesions. Large ulcer noted to R scrotal sac (L)4cm x (W)4.6cm. Base of wound is erythematous ,moist with Biofilm. Sacral DTPI with clusters of small islands of slough with surrounding maroon and indurated areas (L)8cm x (W)12cm.Mild Odor noted. Partial thickness Pressure Injury Upper/outer R buttocks(L)1.8cm x (W)1.3cm. Base of wound is moist and viable. Edges adherent to base of wound. Surrounding non-blanching erythema with scattered areas of shearing noted. Partial thickness Pressure Inferior lower R buttocks.(L)0.8cm x (W)1.2cm. Base of wound is moist and viable. Edges adherent to base of wound. Surrounding non- blanching erythema with scattered shearing noted extending into R ischial tuberosity. Clusters of small hyperpigmentation noted to L trochanteric and L ischial tuberosity. R Heel is fluctuant with scattered dry eschar and surrounding Non-Blanchable erythema.(L)6.5cm x (W)8cm. DTPI distal/lateral R foot(L)3cm x (W)3cm. Base of wound is maroon and fluctuant. dry eschar noted to tip of R 1st metatarsal with surrounding non-blanchable erythema extending dorsally and laterally of metatarsal(L)5cm x (W)1.3cm Non-Blanchable erythema that is fluctuant at base noted to dorso/lateral L 5th metatarsal(L)0.6cm x (W)0.3cm. L Heel is boggy with non-blanchable erythema laterally. Hyperpigmentation from previous wound noted at L heel. Tx.Plan: Cleanse Sacral wound with Saline. Apply TheraHoney to slough. Apply Moisture Barrier Paste periwound. Cover with Optifoam drsg. Change daily and prn. Apply Moisture Barrier Paste to Wounds R upper and lower R Buttocks. Cover each wound with Optifoam drsg. Change every 3 days and prn. Apply Zinc Oxide Paste to Scrotal Wounds TID and prn. Apply Betadine to wounds R heel and R foot . Cover with ABD Pads and wrap with Kerlix every 3 days and prn. Apply Betadine to L foot. Cover with ABD Pads and wrap with Kerlix every 3 days and prn. Cover Bony Prominences as needed with Optifoam drsgs. Reposition at least every 2hours or as tolerated. Off-load heels with pillow. APM/VIRAL Mattress DAILY ESTIMATED NEEDS: Needs based on Critical care, 63kg 22-30 kcals/kg 0868-2281 total kcals 1.25-2 g protein/kg 79-126 g total protein 25-30 mL/kg 3204-0609 total fluid mLs NUTRITION DIAGNOSIS: Swallowing difficulty r/ respiratory status as evidenced by pt is vent dep via trach, PEG dep. CURRENT TF:NPO ENTERAL NUTRITION RECOMMENDATIONS: Vital AF 1.2 @ 55ml/hr x 22 hrs to provide 1210ml, 1452kcal, 91g prot, 981ml free water - As medically able, rec Vital 1.2. Start @15ml/hr for 6 hrs, advance as tolerated 10ml/hr q4-6 hrs to goal. - Hold 1 hr before and after synthroid. - Flush per , HOB over 30 degrees - Feed w/ hemodynamic stability. ADDITIONAL RECOMMENDATIONS: 1) Obtain calibrated bed scale wts-> recent adm wt was 63kg vs 68kg today 2) Monitor renal labs and lytes, need for renal formula 3) Rec WC eval -> currently NPO 4) Monitor hemodynamic stability, ability to feed (9) SOB (shortness of breath) (10) Hypernatremia (11) Aspiration pneumonia (12) Renal insufficiency (13) Respiratory insufficiency (14) Respiratory failure (15) Malnutrition (16) Sepsis Assessment & Plan: Leukocytosis, lactic acidosis, abnormal labs. In ICU resuscitation imaging noted micro noted. 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
--- NOTE | 2020-05-05 16:45 | Operative Note - PDOC ---
Operative Note Operative Note Date of Operation/Procedure: May 05, 2020 Pre-op Diagnosis: Acute renal insufficiency Procedure: Left femoral temporary hemodialysis catheter insertion Post-op Diagnosis: same as pre-op Surgeon: Rehan Geronimo MD Anesthesia: local Specimen: none Complications: none Condition: stable Estimated Blood Loss: minimal Drains: none Implant(s) used?: No Indications for Procedure Intensive care unit [facility] worsening renal insufficiency acidotic requiring hemodialysis no access requires temporary dialysis catheter insertion. Consent obtained. Description of Procedure Very difficult procedure given the patient is fairly contracted in the bilateral lower extremities currently has a right IJ triple-lumen catheter tracheostomy and recent renal insufficiency unknown if reversible. Decision made to go in the groin and in her legs were identified as far as both groins to go as well. The left groin was prepped and draped in the same surgical fashion. Finder needle was used in the left femoral vein was identified and cannulated on first stick without complication. Good venous flow identified. Guidewire placed over needle needle removed. Small skin incision made around the guidewire and dilators were used and dilatated tract was formed. A temporal hemodialysis catheter was inserted over the guidewire and guidewire removed and discarded. Line was sutured in place all ports flushed and aspirated venous post per appropriately. Dressings applied. Line okay to use. Pending dialysis today. Thank you Rehan Geroniom May 05, 2020 16:45
--- NOTE | 2020-05-05 17:11 | General Progress Note ---
Subjective Allergies: Coded Allergies: No Known Allergies (Unverified , 02/23/12) Subjective Above noted seen in ICU dark GT aspirate later in day reported to have melena non verbal H&H stable Objective Last 24 Hour Vital Signs Date Time Temp Pulse Resp B/P (MAP) Pulse Ox O2 Delivery O2 Flow Rate FiO2 05/05/20 16:15 71 26 93/62 (72) 93 05/05/20 16:00 74 05/05/20 16:00 99.2 72 30 98/66 (77) 92 05/05/20 16:00 50 05/05/20 15:45 86 17 100/64 (76) 91 05/05/20 15:30 80 29 94/56 (69) 92 05/05/20 15:15 82 31 97/60 (72) 93 05/05/20 15:14 88 31 50 05/05/20 15:00 86 30 98/53 (68) 93 05/05/20 14:30 85 31 90/51 (64) 99 05/05/20 14:15 105 32 103/54 (70) 100 05/05/20 14:00 103 36 102/54 (70) 99 05/05/20 13:45 103 35 100/52 (68) 99 05/05/20 13:30 101 31 100/50 (67) 99 05/05/20 13:15 89 30 50 05/05/20 13:15 104 33 93/55 (68) 99 05/05/20 13:00 102 35 96/48 (64) 99 05/05/20 12:45 106 35 94/52 (66) 99 05/05/20 12:30 105 28 94/53 (67) 99 05/05/20 12:15 105 30 106/49 (68) 99 05/05/20 12:00 50 05/05/20 12:00 99.0 104 39 104/48 (66) 99 05/05/20 12:00 105 05/05/20 11:45 96 37 110/60 (77) 99 05/05/20 11:30 100 39 121/55 (77) 99 05/05/20 11:16 98 32 50 05/05/20 11:00 96 36 103/55 (71) 99 05/05/20 10:30 98 37 96/51 (66) 100 05/05/20 10:00 96 34 103/48 (66) 100 05/05/20 09:20 97 35 50 05/05/20 09:00 96 34 90/51 (64) 98 05/05/20 08:30 102 36 112/57 (75) 98 05/05/20 08:00 97 05/05/20 08:00 98.1 100 33 115/57 (76) 98 05/05/20 07:30 99 32 109/60 (76) 100 05/05/20 07:30 50 05/05/20 07:29 103 35 50 05/05/20 07:00 98 33 99/55 (70) 100 05/05/20 06:30 96 34 97/56 (70) 100 05/05/20 06:15 94 31 96/52 (67) 100 05/05/20 06:00 112 26 117/65 (82) 100 05/05/20 05:45 102 39 108/58 (75) 100 05/05/20 05:30 103 33 113/58 (76) 100 05/05/20 05:15 104 32 113/53 (73) 100 05/05/20 05:04 99 34 85 05/05/20 05:00 103 31 114/56 (75) 100 05/05/20 04:45 102 31 107/58 (74) 100 05/05/20 04:30 100 33 115/64 (81) 100 05/05/20 04:15 99 32 112/57 (75) 100 05/05/20 04:00 Mechanical Ventilator Mechanical Ventilator 05/05/20 04:00 85 05/05/20 04:00 99.3 99 33 111/50 (70) 100 05/05/20 03:45 99 34 113/53 (73) 100 05/05/20 03:30 79 31 110/54 (72) 100 05/05/20 03:28 90 05/05/20 03:15 95 35 100/52 (68) 100 05/05/20 03:15 94 34 85 05/05/20 03:00 98 34 103/55 (71) 100 05/05/20 02:45 100 35 108/57 (74) 100 05/05/20 02:30 97 32 113/56 (75) 100 05/05/20 02:15 97 32 108/64 (79) 100 05/05/20 02:00 93 34 109/56 (73) 100 05/05/20 01:47 102/51 05/05/20 01:45 94 32 102/51 (68) 100 05/05/20 01:30 100 28 109/62 (78) 100 05/05/20 00:42 93 34 85 05/05/20 00:15 95 33 100/51 (67) 100 05/05/20 00:00 Mechanical Ventilator Mechanical Ventilator 05/05/20 00:00 99.3 95 33 105/56 (72) 100 05/04/20 23:45 97 18 98/54 (69) 100 05/04/20 23:39 95 05/04/20 23:30 87 31 98/55 (69) 100 05/04/20 23:15 97 33 95/56 (69) 100 05/04/20 23:00 96 30 97/51 (66) 100 05/04/20 22:53 99 32 85 05/04/20 22:30 97 29 110/64 (79) 100 05/04/20 22:15 99 32 108/61 (77) 100 05/04/20 22:00 100 31 99/55 (70) 100 05/04/20 21:15 102 30 94/54 (67) 100 05/04/20 21:00 97 30 102/53 (69) 100 05/04/20 20:54 96 36 85 05/04/20 20:45 97 36 109/56 (73) 100 05/04/20 20:30 92 31 101/58 (72) 100 05/04/20 20:15 96 31 99/58 (72) 100 05/04/20 20:00 Mechanical Ventilator Mechanical Ventilator 05/04/20 20:00 85 05/04/20 20:00 99.1 92 14 102/57 (72) 100 05/04/20 19:32 95 05/04/20 19:00 88 29 114/64 (81) 100 05/04/20 18:45 86 32 85 05/04/20 18:00 87 33 104/56 (72) 100 05/04/20 17:28 89 31 85 Intake and Output 05/04/20 05/05/20 19:00 07:00 Intake Total 1411.61585 ml 1512.375 ml Output Total 800 ml Balance 1411.79582 ml 712.375 ml IV Total 1411.91407 ml 1512.375 ml Gastric Drainage Total 800 ml # Voids 150 105 Laboratory Tests 05/04/20 17:26: Sodium Level 141, Potassium Level 3.3L, Chloride Level 109H, Carbon Dioxide Level 20L, Anion Gap 12, Blood Urea Nitrogen 129H, Creatinine 4.1H, Estimat Glomerular Filtration Rate 14.2, Glucose Level 96, Calcium Level 9.1, Total Bilirubin 0.4, Aspartate Amino Transf (AST/SGOT) 18, Alanine Aminotransferase (ALT/SGPT) < 6L, Alkaline Phosphatase 126H, Total Protein 6.3L, Albumin 1.4L, Globulin 4.9, Albumin/Globulin Ratio 0.3L 05/05/20 04:00: Sodium Level 144, Potassium Level 3.0L, Chloride Level 111H, Carbon Dioxide Level 20L, Anion Gap 13, Blood Urea Nitrogen 129H, Creatinine 4.3H, Estimat Glomerular Filtration Rate 13.4, Glucose Level 80, Calcium Level 8.9, Total Julio irubin 0.4, Aspartate Amino Transf (AST/SGOT) 26, Alanine Aminotransferase (ALT/SGPT) < 6L, Alkaline Phosphatase 117H, Total Protein 6.3L, Albumin 1.4L, Globulin 4.9, Albumin/Globulin Ratio 0.3L, White Blood Count 14.5H, Red Blood Count 2.15L, Hemoglobin 7.4L, Hematocrit 23.4L, Mean Corpuscular Volume 109H, Mean Corpuscular Hemoglobin 34.4H, Mean Corpuscular Hemoglobin Concent 31.7L, Red Cell Distribution Width 21.9H, Platelet Count 252, Mean Platelet Volume 6.1L , Neutrophils (%) (Auto) , Lymphocytes (%) (Auto) , Monocytes (%) (Auto) , Eosinophils (%) (Auto) , Basophils (%) (Auto) , Differential Total Cells Counted 100, Neutrophils % (Manual) 87H, Lymphocytes % (Manual) 7L, Monocytes % (Manual) 3, Eosinophils % (Manual) 0, Basophils % (Manual) 0, Band Neutrophils 3, Platelet Estimate Adequate, Platelet Morphology Normal, Hypochromasia 1+, Anisocytosis 2+, Macrocytosis 1+, Magnesium Level 2.6H, Troponin I 0.184H, Random Vancomycin Level 12.4 Height (Feet): 5 Height (Inches): 7.00 Weight (Pounds): 150 Objective NCAT supple CTA RR abd soft, (+) GT (++) contracted Assessment/Plan Status: stable, not improved Assessment/Plan: Assessment - GI bleed, with stable H&H - h/o gastric ulcer - not a good candidate for GI endoscopy - anemia - renal failure - resp failure - contractures - Recommendations - GT - LIS - convert PO to IV meds - IV PPI - transfuse PRN - transfuse PRN - will follow closely Clive Kuo MD May 05, 2020 17:11
[2020-05-05] MEDS: Dyna-Hex 2% Top Sol 2oz TOPIC SCH (20:37)
[2020-05-05] MEDS: Epoetin Alfa-EPBX (NON ESRD)10,000 unit/ml vial SUBQ SCH (21:39)
[2020-05-05] MEDS: Ferrous Sulfate 300 MG/5 ML UDC GT SCH (21:48)
[2020-05-06] VITALS (32 sets, daily range): BP systolic 75–107; BP diastolic 46–90
[2020-05-06 04:42] LABS: HEMATOCRIT 28.1 % (42.0-52.0); HEMOGLOBIN 9.3 G/DL (14.2-18.0); MEAN CORPUSCULAR VOLUME 102 FL (80-99); PLATELET COUNT 221 K/UL (150-450); RED BLOOD COUNT 2.74 M/UL (4.70-6.10); RED CELL DISTRIBUTION WIDTH 21.4 % (11.6-14.8); WHITE BLOOD COUNT 14.2 K/UL (4.8-10.8)
[2020-05-06 05:07] LABS: ALANINE AMINOTRANSFERASE < 6 U/L (12-78); ALBUMIN 1.2 G/DL (3.4-5.0); ALBUMIN/GLOBULIN RATIO 0.3 (1.0-2.7); ALKALINE PHOSPHATASE 101 U/L (46-116); ANION GAP 6 mmol/L (5-15); ASPARTATE AMINO TRANSFERASE 21 U/L (15-37); BILIRUBIN,TOTAL 0.6 MG/DL (0.2-1.0); BLOOD UREA NITROGEN 63 mg/dL (7-18); CALCIUM 8.3 MG/DL (8.5-10.1); CARBON DIOXIDE 27 MMOL/L (21-32); CHLORIDE 108 MMOL/L (98-107); CREATININE 2.9 MG/DL (0.55-1.30); POTASSIUM 3.1 MMOL/L (3.5-5.1); SODIUM 141 MMOL/L (136-145)
[2020-05-06] MEDS: Zosyn 2.25 gm in D5W 55ml IV SCH (05:16)
[2020-05-06] MEDS: Pantoprazole Inj IVP SCH ×2 (08:46→20:27)
[2020-05-06] MEDS: Ferrous Sulfate 300 MG/5 ML UDC GT SCH ×2 (08:46→13:15)
[2020-05-06] MEDS: Aspirin Baby 81mg NG SCH (08:47)
[2020-05-06] MEDS: Heparin 5000 units/ml inj SUBQ SCH (08:47)
[2020-05-06] MEDS: levETIRAcetam 500mg/NS100ml 100 ML IVPB SCH ×2 (08:48→20:28)
--- NOTE | 2020-05-06 09:44 | Critical Care Progress Note ---
Assessment/Plan Assessment/Plan IMPRESSION: Respiratory failure chronic, chronic encephalopathy, sepsis, leukocytosis, G-tube, aspiration, acute on chronic renal failure, electrolyte abnormality, failure to thrive, severe protein-calorie malnutrition, chronic CO2 retention; Hypoxemia RECOMMENDATIONS: on midodrine; d/w gi as to feeds- monitor protein levels; Supportive care. IV antibiotics and adjust and discuss. Respiratory support and vent management- taper oxygen needs usp medications. Monitor clinically. Prognosis is overall poor. monitor labs and adjust therapy; renal ID cardiology; await further recommendations and stabilization medications/laboratory data/nursing notes/ICU care reviewed in detail note reviewed and edited care discussed with RN and RT ICU time spent >40 minutes Critical Care - Subjective Interval Events: ICU care noted on vent multiorgan disease ROS Limited/Unobtainable: Yes Condition: critical EKG Rhythm: Sinus Rhythm I&O: Intake and Output 05/05/20 05/06/20 19:00 07:00 Intake Total 2445.40214 ml 1796.6667 ml Output Total 145 ml 295 ml Balance 2300.99273 ml 1501.6667 ml IV Total 1945.68981 ml 1796.6667 ml Blood Product 500 ml Output Urine Total 95 ml 45 ml Gastric Drainage Total 50 ml 250 ml # Bowel Movements 4 3 Critical Care - Objective Last 24 Hour Vital Signs Date Time Temp Pulse Resp B/P (MAP) Pulse Ox O2 Delivery O2 Flow Rate FiO2 05/06/20 08:45 102 37 60 05/06/20 07:21 97 42 90 05/06/20 07:00 82 36 102/59 (73) 100 05/06/20 06:00 75 35 93/59 (70) 99 05/06/20 05:00 87 37 92/57 (69) 99 05/06/20 04:51 81 38 80 05/06/20 04:00 72 05/06/20 04:00 Mechanical Ventilator 05/06/20 04:00 99.0 82 31 91/70 (77) 100 05/06/20 04:00 80 05/06/20 03:00 63 26 104/90 (95) 100 05/06/20 02:30 70 30 80 05/06/20 02:00 68 30 95/71 (79) 100 05/06/20 01:00 72 29 107/60 (76) 100 05/06/20 00:59 70 30 80 05/06/20 00:00 99.6 68 28 99/67 (78) 100 05/06/20 00:00 67 05/06/20 00:00 Mechanical Ventilator 05/06/20 00:00 80 05/05/20 23:29 70 30 80 05/05/20 23:00 76 18 102/62 (75) 100 05/05/20 22:00 83 30 106/63 (77) 100 05/05/20 21:00 86 32 119/73 (88) 100 05/05/20 20:40 84 34 80 05/05/20 20:00 98.9 78 35 115/62 (79) 100 05/05/20 20:00 84 05/05/20 20:00 Mechanical Ventilator 05/05/20 19:30 81 35 105/64 (78) 99 05/05/20 19:15 81 38 99/63 (75) 99 05/05/20 19:00 82 32 101/60 (74) 99 05/05/20 18:45 86 32 104/70 (81) 99 05/05/20 18:34 80 05/05/20 18:30 89 35 121/81 (94) 91 05/05/20 18:30 90 35 80 05/05/20 18:15 83 31 106/77 (87) 90 05/05/20 18:00 98.1 63 31 101/65 (77) 93 05/05/20 17:45 83 31 114/70 (85) 95 05/05/20 17:30 64 30 101/64 (76) 95 05/05/20 17:26 94/61 05/05/20 17:16 71 30 45 05/05/20 17:15 66 24 94/61 (72) 100 05/05/20 17:00 69 27 90/57 (68) 93 05/05/20 16:45 74 15 90/59 (69) 93 05/05/20 16:30 70 28 101/64 (76) 94 05/05/20 16:15 71 26 93/62 (72) 93 05/05/20 16:00 Mechanical Ventilator 05/05/20 16:00 74 05/05/20 16:00 99.2 72 30 98/66 (77) 92 05/05/20 16:00 50 05/05/20 15:45 86 17 100/64 (76) 91 05/05/20 15:30 80 29 94/56 (69) 92 05/05/20 15:15 82 31 97/60 (72) 93 05/05/20 15:14 88 31 50 05/05/20 15:00 86 30 98/53 (68) 93 05/05/20 14:30 85 31 90/51 (64) 99 05/05/20 14:15 105 32 103/54 (70) 100 05/05/20 14:00 103 36 102/54 (70) 99 05/05/20 13:45 103 35 100/52 (68) 99 05/05/20 13:30 101 31 100/50 (67) 99 05/05/20 13:15 89 30 50 05/05/20 13:15 104 33 93/55 (68) 99 05/05/20 13:00 102 35 96/48 (64) 99 05/05/20 12:45 106 35 94/52 (66) 99 05/05/20 12:30 105 28 94/53 (67) 99 05/05/20 12:15 105 30 106/49 (68) 99 05/05/20 12:00 Mechanical Ventilator 05/05/20 12:00 50 05/05/20 12:00 99.0 104 39 104/48 (66) 99 05/05/20 12:00 105 05/05/20 11:45 96 37 110/60 (77) 99 05/05/20 11:30 100 39 121/55 (77) 99 05/05/20 11:16 98 32 50 05/05/20 11:00 96 36 103/55 (71) 99 05/05/20 10:30 98 37 96/51 (66) 100 05/05/20 10:00 96 34 103/48 (66) 100 Labs: Labs Test 05/03/20 14:00 05/03/20 14:25 05/03/20 16:25 05/03/20 21:55 White Blood Count 23.5 K/UL (4.8-10.8) Red Blood Count 2.67 M/UL (4.70-6.10) Hemoglobin 9.4 G/DL (14.2-18.0) Hematocrit 28.9 % (42.0-52.0) Mean Corpuscular Volume 108 FL (80-99) Mean Corpuscular Hemoglobin 35.1 PG (27.0-31.0) Mean Corpuscular Hemoglobin Concent 32.4 G/DL (32.0-36.0) Red Cell Distribution Width 22.6 % (11.6-14.8) Platelet Count 274 K/UL (150-450) Mean Platelet Volume 6.4 FL (6.5-10.1) Neutrophils (%) (Auto) % (45.0-75.0) Lymphocytes (%) (Auto) % (20.0-45.0) Monocytes (%) (Auto) % (1.0-10.0) Eosinophils (%) (Auto) % (0.0-3.0) Basophils (%) (Auto) % (0.0-2.0) Differential Total Cells Counted 100 Neutrophils % (Manual) 72 % (45-75) Lymphocytes % (Manual) 5 % (20-45) Monocytes % (Manual) 6 % (1-10) Eosinophils % (Manual) 0 % (0-3) Basophils % (Manual) 0 % (0-2) Band Neutrophils 17 % (0-8) Platelet Estimate Adequate Platelet Morphology Normal Polychromasia 1+ Anisocytosis 2+ Macrocytosis 2+ Prothrombin Time 14.1 SEC (9.30-11.50) Prothromb Time International Ratio 1.3 (0.9-1.1) Activated Partial Thromboplast Time 33 SEC (23-33) Sodium Level 136 MMOL/L (136-145) Potassium Level 3.0 MMOL/L (3.5-5.1) Chloride Level 103 MMOL/L (98-107) Carbon Dioxide Level 22 MMOL/L (21-32) Anion Gap 11 mmol/L (5-15) Blood Urea Nitrogen 120 mg/dL (7-18) Creatinine 3.8 MG/DL (0.55-1.30) Estimat Glomerular Filtration Rate 15.5 mL/min (>60) Glucose Level 117 MG/DL (74-106) Lactic Acid Level 2.20 mmol/L (0.4-2.0) 2.10 mmol/L (0.66-2.22) Calcium Level 9.7 MG/DL (8.5-10.1) Magnesium Level 2.7 MG/DL (1.8-2.4) Total Bilirubin 0.3 MG/DL (0.2-1.0) Aspartate Amino Transf (AST/SGOT) 26 U/L (15-37) Alanine Aminotransferase (ALT/SGPT) < 6 U/L (12-78) Alkaline Phosphatase 205 U/L (46-116) Total Creatine Kinase 21 U/L (26-308) Creatine Kinase MB 0.8 NG/ML (0.0-3.6) Creatine Kinase MB Relative Index 3.8 Troponin I 0.159 ng/mL (0.000-0.056) Total Protein 7.7 G/DL (6.4-8.2) Albumin 1.5 G/DL (3.4-5.0) Globulin 6.2 g/dL Albumin/Globulin Ratio 0.2 (1.0-2.7) Arterial Blood pH 7.202 (7.350-7.450) 7.224 (7.350-7.450) Arterial Blood Partial Pressure CO2 53.4 mmHg (35.0-45.0) 52.3 mmHg (35.0-45.0) Arterial Blood Partial Pressure O2 87.6 mmHg (75.0-100.0) 90.4 mmHg (75.0-100.0) Arterial Blood HCO3 20.5 mmol/L (22.0-26.0) 21.1 mmol/L (22.0-26.0) Arterial Blood Oxygen Saturation 95.4 % (95-100) 96.4 % (95-100) Arterial Blood Base Excess -7.4 (-2-2) -6.4 (-2-2) [place] Test Positive Positive Test 05/04/20 02:15 05/04/20 02:16 05/04/20 02:20 05/04/20 08:20 POC Whole Blood Glucose 93 MG/DL (74-106) Arterial Blood pH 7.247 (7.350-7.450) 7.270 (7.350-7.450) Arterial Blood Partial Pressure CO2 51.6 mmHg (35.0-45.0) 45.4 mmHg (35.0-45.0) Arterial Blood Partial Pressure O2 50.5 mmHg (75.0-100.0) 277.2 mmHg (75.0-100.0) Arterial Blood HCO3 22.0 mmol/L (22.0-26.0) 20.4 mmol/L (22.0-26.0) Arterial Blood Oxygen Saturation 83.5 % (95-100) 98.7 % (95-100) Arterial Blood Base Excess -5.2 (-2-2) -6.4 (-2-2) [place] Test Positive Positive White Blood Count 18.7 K/UL (4.8-10.8) Red Blood Count 2.23 M/UL (4.70-6.10) Hemoglobin 7.7 G/DL (14.2-18.0) Hematocrit 23.9 % (42.0-52.0) Mean Corpuscular Volume 107 FL (80-99) Mean Corpuscular Hemoglobin 34.7 PG (27.0-31.0) Mean Corpuscular Hemoglobin Concent 32.5 G/DL (32.0-36.0) Red Cell Distribution Width 22.5 % (11.6-14.8) Platelet Count 239 K/UL (150-450) Mean Platelet Volume 5.9 FL (6.5-10.1) Neutrophils (%) (Auto) % (45.0-75.0) Lymphocytes (%) (Auto) % (20.0-45.0) Monocytes (%) (Auto) % (1.0-10.0) Eosinophils (%) (Auto) % (0.0-3.0) Basophils (%) (Auto) % (0.0-2.0) Differential Total Cells Counted 100 Neutrophils % (Manual) 89 % (45-75) Lymphocytes % (Manual) 6 % (20-45) Monocytes % (Manual) 5 % (1-10) Eosinophils % (Manual) 0 % (0-3) Basophils % (Manual) 0 % (0-2) Band Neutrophils 0 % (0-8) Platelet Estimate Adequate Platelet Morphology Normal Prothrombin Time 14.0 SEC (9.30-11.50) Prothromb Time International Ratio 1.3 (0.9-1.1) Activated Partial Thromboplast Time 37 SEC (23-33) Sodium Level 138 MMOL/L (136-145) Potassium Level 2.6 MMOL/L (3.5-5.1) Chloride Level 105 MMOL/L (98-107) Carbon Dioxide Level 22 MMOL/L (21-32) Anion Gap 11 mmol/L (5-15) Blood Urea Nitrogen 129 mg/dL (7-18) Creatinine 4.2 MG/DL (0.55-1.30) Estimat Glomerular Filtration Rate 13.8 mL/min (>60) Glucose Level 96 MG/DL (74-106) Calcium Level 9.4 MG/DL (8.5-10.1) Magnesium Level 2.6 MG/DL (1.8-2.4) Total Bilirubin 0.4 MG/DL (0.2-1.0) Aspartate Amino Transf (AST/SGOT) 16 U/L (15-37) Alanine Aminotransferase (ALT/SGPT) < 6 U/L (12-78) Alkaline Phosphatase 142 U/L (46-116) Troponin I 0.133 ng/mL (0.000-0.056) Pro-B-Type Natriuretic Peptide 95457 pg/mL (0-125) Total Protein 6.4 G/DL (6.4-8.2) Albumin 1.4 G/DL (3.4-5.0) Globulin 5.0 g/dL Albumin/Globulin Ratio 0.3 (1.0-2.7) Thyroid Stimulating Hormone (TSH) 47.028 uiU/mL (0.358-3.740) Test 05/04/20 11:25 05/04/20 17:26 05/05/20 04:00 05/05/20 18:15 White Blood Count 22.7 K/UL (4.8-10.8) 14.5 K/UL (4.8-10.8) Red Blood Count 2.16 M/UL (4.70-6.10) 2.15 M/UL (4.70-6.10) Hemoglobin 7.6 G/DL (14.2-18.0) 7.4 G/DL (14.2-18.0) Hematocrit 23.2 % (42.0-52.0) 23.4 % (42.0-52.0) Mean Corpuscular Volume 108 FL (80-99) 109 FL (80-99) Mean Corpuscular Hemoglobin 35.3 PG (27.0-31.0) 34.4 PG (27.0-31.0) Mean Corpuscular Hemoglobin Concent 32.8 G/DL (32.0-36.0) 31.7 G/DL (32.0-36.0) Red Cell Distribution Width 22.9 % (11.6-14.8) 21.9 % (11.6-14.8) Platelet Count 271 K/UL (150-450) 252 K/UL (150-450) Mean Platelet Volume 5.9 FL (6.5-10.1) 6.1 FL (6.5-10.1) Neutrophils (%) (Auto) % (45.0-75.0) % (45.0-75.0) Lymphocytes (%) (Auto) % (20.0-45.0) % (20.0-45.0) Monocytes (%) (Auto) % (1.0-10.0) % (1.0-10.0) Eosinophils (%) (Auto) % (0.0-3.0) % (0.0-3.0) Basophils (%) (Auto) % (0.0-2.0) % (0.0-2.0) Differential Total Cells Counted 100 100 Neutrophils % (Manual) 66 % (45-75) 87 % (45-75) Lymphocytes % (Manual) 6 % (20-45) 7 % (20-45) Monocytes % (Manual) 4 % (1-10) 3 % (1-10) Eosinophils % (Manual) 0 % (0-3) 0 % (0-3) Basophils % (Manual) 0 % (0-2) 0 % (0-2) Band Neutrophils 24 % (0-8) 3 % (0-8) Platelet Estimate Adequate Adequate Platelet Morphology Normal Normal Polychromasia 1+ Hypochromasia 1+ 1+ Anisocytosis 2+ 2+ Macrocytosis 1+ 1+ Sodium Level 141 MMOL/L (136-145) 144 MMOL/L (136-145) Potassium Level 3.3 MMOL/L (3.5-5.1) 3.0 MMOL/L (3.5-5.1) Chloride Level 109 MMOL/L (98-107) 111 MMOL/L (98-107) Carbon Dioxide Level 20 MMOL/L (21-32) 20 MMOL/L (21-32) Anion Gap 12 mmol/L (5-15) 13 mmol/L (5-15) Blood Urea Nitrogen 129 mg/dL (7-18) 129 mg/dL (7-18) Creatinine 4.1 MG/DL (0.55-1.30) 4.3 MG/DL (0.55-1.30) Estimat Glomerular Filtration Rate 14.2 mL/min (>60) 13.4 mL/min (>60) Glucose Level 96 MG/DL (74-106) 80 MG/DL (74-106) Calcium Level 9.1 MG/DL (8.5-10.1) 8.9 MG/DL (8.5-10.1) Total Bilirubin 0.4 MG/DL (0.2-1.0) 0.4 MG/DL (0.2-1.0) Aspartate Amino Transf (AST/SGOT) 18 U/L (15-37) 26 U/L (15-37) Alanine Aminotransferase (ALT/SGPT) < 6 U/L (12-78) < 6 U/L (12-78) Alkaline Phosphatase 126 U/L (46-116) 117 U/L (46-116) Total Protein 6.3 G/DL (6.4-8.2) 6.3 G/DL (6.4-8.2) Albumin 1.4 G/DL (3.4-5.0) 1.4 G/DL (3.4-5.0) Globulin 4.9 g/dL 4.9 g/dL Albumin/Globulin Ratio 0.3 (1.0-2.7) 0.3 (1.0-2.7) Magnesium Level 2.6 MG/DL (1.8-2.4) Troponin I 0.184 ng/mL (0.000-0.056) Random Vancomycin Level 12.4 ug/mL Test 05/06/20 03:40 White Blood Count 14.2 K/UL (4.8-10.8) Red Blood Count 2.74 M/UL (4.70-6.10) Hemoglobin 9.3 G/DL (14.2-18.0) Hematocrit 28.1 % (42.0-52.0) Mean Corpuscular Volume 102 FL (80-99) Mean Corpuscular Hemoglobin 34.1 PG (27.0-31.0) Mean Corpuscular Hemoglobin Concent 33.3 G/DL (32.0-36.0) Red Cell Distribution Width 21.4 % (11.6-14.8) Platelet Count 221 K/UL (150-450) Mean Platelet Volume 6.1 FL (6.5-10.1) Neutrophils (%) (Auto) % (45.0-75.0) Lymphocytes (%) (Auto) % (20.0-45.0) Monocytes (%) (Auto) % (1.0-10.0) Eosinophils (%) (Auto) % (0.0-3.0) Basophils (%) (Auto) % (0.0-2.0) Differential Total Cells Counted 100 Neutrophils % (Manual) 89 % (45-75) Lymphocytes % (Manual) 3 % (20-45) Monocytes % (Manual) 6 % (1-10) Eosinophils % (Manual) 0 % (0-3) Basophils % (Manual) 0 % (0-2) Band Neutrophils 2 % (0-8) Platelet Estimate Adequate Platelet Morphology Normal Polychromasia 1+ Anisocytosis 2+ Macrocytosis 1+ Sodium Level 141 MMOL/L (136-145) Potassium Level 3.1 MMOL/L (3.5-5.1) Chloride Level 108 MMOL/L (98-107) Carbon Dioxide Level 27 MMOL/L (21-32) Anion Gap 6 mmol/L (5-15) Blood Urea Nitrogen 63 mg/dL (7-18) Creatinine 2.9 MG/DL (0.55-1.30) Estimat Glomerular Filtration Rate 21.2 mL/min (>60) Glucose Level 98 MG/DL (74-106) Calcium Level 8.3 MG/DL (8.5-10.1) Total Bilirubin 0.6 MG/DL (0.2-1.0) Aspartate Amino Transf (AST/SGOT) 21 U/L (15-37) Alanine Aminotransferase (ALT/SGPT) < 6 U/L (12-78) Alkaline Phosphatase 101 U/L (46-116) Total Protein 5.6 G/DL (6.4-8.2) Albumin 1.2 G/DL (3.4-5.0) Globulin 4.4 g/dL Albumin/Globulin Ratio 0.3 (1.0-2.7) Objective: WDWN NAD reduced breath sounds bilaterally without rhonchi or wheeze [id number] without MRG NABS nontender GT no CCE significant contractures nonfocal obtunded trach in place Vent skin noted Micro: Microbiology Date/Time Source Procedure Growth Status 05/04/20 08:30 Sputum Gram Stain - Final Resulted 05/04/20 08:30 Sputum Culture - Preliminary Klebsiella Pneumoniae Resulted 05/03/20 15:40 Rectum VRE Culture - Final Enterococcus Faecalis - Vre Complete 05/03/20 15:40 Nasal Nares MRSA Culture - Final NO METHICILLIN RESISTANT STAPH AUREUS... Complete 05/03/20 14:30 Blood Blood Culture - Preliminary Staphylococcus Aureus Staphylococcus Sp Coag Neg Resulted 05/03/20 14:15 Blood Blood Culture - Preliminary Staphylococcus Aureus Staphylococcus Sp Coag Neg Resulted 05/03/20 14:00 Nasopharynx SARS-CoV-2 RdRp Gene Assay - Final Complete Accucheck: 95 Mansoor Martinez MD May 06, 2020 09:43
[2020-05-06] MEDS: NS w/KCl 20mEq 1000ml 1,000 ML IV SCH (10:32)
--- NOTE | 2020-05-06 10:58 | General Progress Note ---
Subjective ROS Limited/Unobtainable: No Constitutional: Reports: malaise, weakness HEENT: Reports: no symptoms Cardiovascular: Reports: no symptoms Respiratory: Reports: shortness of breath, sputum Gastrointestinal/Abdominal: Reports: blood in stool, difficulty swallowing Genitourinary: Reports: no symptoms Neurologic/Psychiatric: Reports: pre-existing deficit, seizure Endocrine: Reports: no symptoms Hematologic/Lymphatic: Reports: anemia Allergies: Coded Allergies: No Known Allergies (Unverified , 02/23/12) All Systems: reviewed and negative except above Subjective no change. on pressors. s/p HD. tolerated 500cc UF. remains on iv abx. diarrhea Objective Last 24 Hour Vital Signs Date Time Temp Pulse Resp B/P (MAP) Pulse Ox O2 Delivery O2 Flow Rate FiO2 05/06/20 08:45 102 37 60 05/06/20 07:21 97 42 90 05/06/20 07:00 82 36 102/59 (73) 100 05/06/20 06:00 75 35 93/59 (70) 99 05/06/20 05:00 87 37 92/57 (69) 99 05/06/20 04:51 81 38 80 05/06/20 04:00 72 05/06/20 04:00 Mechanical Ventilator 05/06/20 04:00 99.0 82 31 91/70 (77) 100 05/06/20 04:00 80 05/06/20 03:00 63 26 104/90 (95) 100 05/06/20 02:30 70 30 80 05/06/20 02:00 68 30 95/71 (79) 100 05/06/20 01:00 72 29 107/60 (76) 100 05/06/20 00:59 70 30 80 05/06/20 00:00 99.6 68 28 99/67 (78) 100 05/06/20 00:00 67 05/06/20 00:00 Mechanical Ventilator 05/06/20 00:00 80 05/05/20 23:29 70 30 80 05/05/20 23:00 76 18 102/62 (75) 100 05/05/20 22:00 83 30 106/63 (77) 100 05/05/20 21:00 86 32 119/73 (88) 100 05/05/20 20:40 84 34 80 05/05/20 20:00 98.9 78 35 115/62 (79) 100 05/05/20 20:00 84 05/05/20 20:00 Mechanical Ventilator 05/05/20 19:30 81 35 105/64 (78) 99 05/05/20 19:15 81 38 99/63 (75) 99 05/05/20 19:00 82 32 101/60 (74) 99 05/05/20 18:45 86 32 104/70 (81) 99 05/05/20 18:34 80 05/05/20 18:30 89 35 121/81 (94) 91 05/05/20 18:30 90 35 80 05/05/20 18:15 83 31 106/77 (87) 90 05/05/20 18:00 98.1 63 31 101/65 (77) 93 05/05/20 17:45 83 31 114/70 (85) 95 05/05/20 17:30 64 30 101/64 (76) 95 05/05/20 17:26 94/61 05/05/20 17:16 71 30 45 05/05/20 17:15 66 24 94/61 (72) 100 05/05/20 17:00 69 27 90/57 (68) 93 05/05/20 16:45 74 15 90/59 (69) 93 05/05/20 16:30 70 28 101/64 (76) 94 05/05/20 16:15 71 26 93/62 (72) 93 05/05/20 16:00 Mechanical Ventilator 05/05/20 16:00 74 05/05/20 16:00 99.2 72 30 98/66 (77) 92 05/05/20 16:00 50 05/05/20 15:45 86 17 100/64 (76) 91 05/05/20 15:30 80 29 94/56 (69) 92 05/05/20 15:15 82 31 97/60 (72) 93 05/05/20 15:14 88 31 50 05/05/20 15:00 86 30 98/53 (68) 93 05/05/20 14:30 85 31 90/51 (64) 99 05/05/20 14:15 105 32 103/54 (70) 100 05/05/20 14:00 103 36 102/54 (70) 99 05/05/20 13:45 103 35 100/52 (68) 99 05/05/20 13:30 101 31 100/50 (67) 99 05/05/20 13:15 89 30 50 05/05/20 13:15 104 33 93/55 (68) 99 05/05/20 13:00 102 35 96/48 (64) 99 05/05/20 12:45 106 35 94/52 (66) 99 05/05/20 12:30 105 28 94/53 (67) 99 05/05/20 12:15 105 30 106/49 (68) 99 05/05/20 12:00 Mechanical Ventilator 05/05/20 12:00 50 05/05/20 12:00 99.0 104 39 104/48 (66) 99 05/05/20 12:00 105 05/05/20 11:45 96 37 110/60 (77) 99 05/05/20 11:30 100 39 121/55 (77) 99 05/05/20 11:16 98 32 50 05/05/20 11:00 96 36 103/55 (71) 99 Intake and Output 05/05/20 05/06/20 19:00 07:00 Intake Total 2445.65245 ml 1796.6667 ml Output Total 145 ml 295 ml Balance 2300.03384 ml 1501.6667 ml IV Total 1945.47509 ml 1796.6667 ml Blood Product 500 ml Output Urine Total 95 ml 45 ml Gastric Drainage Total 50 ml 250 ml # Bowel Movements 4 3 Laboratory Tests 05/05/20 18:15: Hepatitis B Surface Antigen [Pending] 05/06/20 03:40: White Blood Count 14.2H, Red Blood Count 2.74L, Hemoglobin 9.3L, Hematocrit 28.1L, Mean Corpuscular Volume 102H, Mean Corpuscular Hemoglobin 34.1H, Mean Corpuscular Hemoglobin Concent 33.3, Red Cell Distribution Width 21.4H, Platelet Count 221, Mean Platelet Volume 6.1L, Neutrophils (%) (Auto) , Lymphocytes (%) (Auto) , Monocytes (%) (Auto) , Eosinophils (%) (Auto) , Basophils (%) (Auto) , Differential Total Cells Counted 100, Neutrophils % (Manual) 89H, Lymphocytes % (Manual) 3L, Monocytes % (Manual) 6, Eosinophils % (Manual) 0, Basophils % (Manual) 0, Band Neutrophils 2, Platelet Estimate Adequate, Platelet Morphology Normal, Polychromasia 1+, Anisocytosis 2+, Macrocytosis 1+, Sodium Level 141, Potassium Level 3.1L, Chloride Level 108H, Carbon Dioxide Level 27, Anion Gap 6, Blood Urea Nitrogen 63H, Creatinine 2.9H, Estimat Glomerular Filtration Rate 21.2, Glucose Level 98, Calcium Level 8.3L, Total Bilirubin 0.6, Aspartate Amino Transf (AST/SGOT) 21, Alanine Aminotransferase (ALT/SGPT) < 6L, Alkaline Phosphatase 101, Total Protein 5.6L, Albumin 1.2L, Globulin 4.4, Al bumin/Globulin Ratio 0.3L Height (Feet): 5 Height (Inches): 7.00 Weight (Pounds): 150 General Appearance: WD/WN, lethargic, confused EENT: PERRL/EOMI, normal ENT inspection Neck: normal alignment, supple Cardiovascular: normal rate Respiratory/Chest: chest wall non-tender, lungs clear, crackles/rales, rhonchi - bilaterally Abdomen: normal bowel sounds, non tender, soft, no organomegaly Edema: no edema noted Arm (L), no edema noted Arm (R) Neurologic: disoriented, unresponsive, aphasia Skin: normal pigmentation Assessment/Plan Problem List: (1) Dehydration ICD Codes: E86.0 - Dehydration SNOMED: 27537466 (2) Ventilator associated pneumonia ICD Codes: J95.851 - Ventilator associated pneumonia SNOMED: 651506512, 54851339 (3) AUDREY (acute kidney injury) ICD Codes: N17.9 - Acute kidney failure, unspecified SNOMED: 5168697, 59483014 (4) Anemia ICD Codes: D64.9 - Anemia, unspecified SNOMED: 637741373, 328708877 (5) HCAP (healthcare-associated pneumonia) ICD Codes: J18.9 - Pneumonia, unspecified organism SNOMED: 846483663, 007297098 (6) CKD (chronic kidney disease) stage 3, GFR 30-59 ml/min ICD Codes: N18.3 - Chronic kidney disease, stage 3 (moderate) SNOMED: 051435694 (7) GIB (gastrointestinal bleeding) ICD Codes: K92.2 - Gastrointestinal hemorrhage, unspecified SNOMED: 94462859 (8) ARF (acute renal failure) ICD Codes: N17.9 - Acute kidney failure, unspecified SNOMED: 80778863, 806455818 (9) Pneumonia ICD Codes: J18.9 - Pneumonia, unspecified organism SNOMED: 857039506 (10) UTI (urinary tract infection) ICD Codes: N39.0 - Urinary tract infection, site not specified SNOMED: 12221082, 356329000 (11) Sepsis ICD Codes: A41.9 - Sepsis, unspecified organism SNOMED: 33435240 (12) Respiratory failure ICD Codes: J96.90 - Respiratory failure, unspecified, unspecified whether with hypoxia or hypercapnia SNOMED: 693221804 Status: stable, not improved Assessment/Plan: cont ivf HD per renal IV abx follow up cultures vent support resp rx monitor h/h PPI pressors as needed transfuse as needed wound care critical and guarded Jimi Tellez MD May 06, 2020 10:58
--- NOTE | 2020-05-06 11:21 | Infectious Diseases Prog Note ---
Assessment/Plan Assessment/Plan A: 1. Staph aureus & Coag neg sepsis. 2. MDR Klebsiella pneumonia. 3. Renal failure.acute on chronic 4. Respiratory failure on ventilator 5. Seizure disorder. 6. Septic shock. 7. GI bleeding 8. Anemia PLAN: 1. Discontinue Zosyn. 2. continue linezolid. 3. We will start the patient on Colistin inhaler 4. We will follow up cultures and adjust antibiotics accordingly. Subjective ROS Limited/Unobtainable: Yes Constitutional: Denies: fever Gastrointestinal/Abdominal: Reports: blood in stool Allergies: Coded Allergies: No Known Allergies (Unverified , 02/23/12) Objective Last 24 Hour Vital Signs Date Time Temp Pulse Resp B/P (MAP) Pulse Ox O2 Delivery O2 Flow Rate FiO2 05/06/20 11:00 89 35 99/58 (72) 99 05/06/20 10:30 80 33 96/58 (71) 98 05/06/20 10:00 81 35 101/59 (73) 99 05/06/20 09:32 73 31 81/46 (58) 98 05/06/20 09:30 76 29 75/52 (60) 98 05/06/20 09:00 89 37 102/47 (65) 100 05/06/20 08:45 102 37 60 05/06/20 08:30 93 35 100/74 (83) 100 05/06/20 08:00 98.9 92 36 99/60 (73) 99 05/06/20 08:00 Mechanical Ventilator 05/06/20 08:00 60 05/06/20 07:21 97 42 90 05/06/20 07:00 82 36 102/59 (73) 100 05/06/20 06:00 75 35 93/59 (70) 99 05/06/20 05:00 87 37 92/57 (69) 99 05/06/20 04:51 81 38 80 05/06/20 04:00 72 05/06/20 04:00 Mechanical Ventilator 05/06/20 04:00 99.0 82 31 91/70 (77) 100 05/06/20 04:00 80 05/06/20 03:00 63 26 104/90 (95) 100 05/06/20 02:30 70 30 80 05/06/20 02:00 68 30 95/71 (79) 100 05/06/20 01:00 72 29 107/60 (76) 100 05/06/20 00:59 70 30 80 05/06/20 00:00 99.6 68 28 99/67 (78) 100 05/06/20 00:00 67 05/06/20 00:00 Mechanical Ventilator 05/06/20 00:00 80 05/05/20 23:29 70 30 80 05/05/20 23:00 76 18 102/62 (75) 100 05/05/20 22:00 83 30 106/63 (77) 100 05/05/20 21:00 86 32 119/73 (88) 100 05/05/20 20:40 84 34 80 05/05/20 20:00 98.9 78 35 115/62 (79) 100 05/05/20 20:00 84 05/05/20 20:00 Mechanical Ventilator 05/05/20 19:30 81 35 105/64 (78) 99 05/05/20 19:15 81 38 99/63 (75) 99 05/05/20 19:00 82 32 101/60 (74) 99 05/05/20 18:45 86 32 104/70 (81) 99 05/05/20 18:34 80 05/05/20 18:30 89 35 121/81 (94) 91 05/05/20 18:30 90 35 80 05/05/20 18:15 83 31 106/77 (87) 90 05/05/20 18:00 98.1 63 31 101/65 (77) 93 05/05/20 17:45 83 31 114/70 (85) 95 05/05/20 17:30 64 30 101/64 (76) 95 05/05/20 17:26 94/61 05/05/20 17:16 71 30 45 05/05/20 17:15 66 24 94/61 (72) 100 05/05/20 17:00 69 27 90/57 (68) 93 05/05/20 16:45 74 15 90/59 (69) 93 05/05/20 16:30 70 28 101/64 (76) 94 05/05/20 16:15 71 26 93/62 (72) 93 05/05/20 16:00 Mechanical Ventilator 05/05/20 16:00 74 05/05/20 16:00 99.2 72 30 98/66 (77) 92 05/05/20 16:00 50 05/05/20 15:45 86 17 100/64 (76) 91 05/05/20 15:30 80 29 94/56 (69) 92 05/05/20 15:15 82 31 97/60 (72) 93 05/05/20 15:14 88 31 50 05/05/20 15:00 86 30 98/53 (68) 93 05/05/20 14:30 85 31 90/51 (64) 99 05/05/20 14:15 105 32 103/54 (70) 100 05/05/20 14:00 103 36 102/54 (70) 99 05/05/20 13:45 103 35 100/52 (68) 99 05/05/20 13:30 101 31 100/50 (67) 99 05/05/20 13:15 89 30 50 05/05/20 13:15 104 33 93/55 (68) 99 05/05/20 13:00 102 35 96/48 (64) 99 05/05/20 12:45 106 35 94/52 (66) 99 05/05/20 12:30 105 28 94/53 (67) 99 05/05/20 12:15 105 30 106/49 (68) 99 05/05/20 12:00 Mechanical Ventilator 05/05/20 12:00 50 05/05/20 12:00 99.0 104 39 104/48 (66) 99 05/05/20 12:00 105 05/05/20 11:45 96 37 110/60 (77) 99 05/05/20 11:30 100 39 121/55 (77) 99 Height (Feet): 5 Height (Inches): 7.00 Weight (Pounds): 150 HEENT: status post trach Respiratory/Chest: crackles/rales, other - on ventilator Cardiovascular: normal rate, other - RIJ line Abdomen: soft, non tender, other - GT Extremities: other - generalized edema Skin: ulcers Neurologic/Psychiatric: unresponsiveness, aphasia Microbiology Date/Time Source Procedure Growth Status 05/04/20 08:30 Sputum Gram Stain - Final Resulted 05/04/20 08:30 Sputum Culture - Preliminary Klebsiella Pneumoniae Resulted 05/03/20 15:40 Rectum VRE Culture - Final Enterococcus Faecalis - Vre Complete 05/03/20 15:40 Nasal Nares MRSA Culture - Final NO METHICILLIN RESISTANT STAPH AUREUS... Complete 05/03/20 14:30 Blood Blood Culture - Preliminary Staphylococcus Aureus Staphylococcus Sp Coag Neg Resulted 05/03/20 14:15 Blood Blood Culture - Preliminary Staphylococcus Aureus Staphylococcus Sp Coag Neg Resulted 05/03/20 14:00 Nasopharynx SARS-CoV-2 RdRp Gene Assay - Final Complete Laboratory Tests Test 05/05/20 18:15 05/06/20 03:40 Hepatitis B Surface Antigen Pending White Blood Count 14.2 K/UL (4.8-10.8) H Red Blood Count 2.74 M/UL (4.70-6.10) L Hemoglobin 9.3 G/DL (14.2-18.0) L Hematocrit 28.1 % (42.0-52.0) L Mean Corpuscular Volume 102 FL (80-99) H Mean Corpuscular Hemoglobin 34.1 PG (27.0-31.0) H Mean Corpuscular Hemoglobin Concent 33.3 G/DL (32.0-36.0) Red Cell Distribution Width 21.4 % (11.6-14.8) H Platelet Count 221 K/UL (150-450) Mean Platelet Volume 6.1 FL (6.5-10.1) L Neutrophils (%) (Auto) % (45.0-75.0) Lymphocytes (%) (Auto) % (20.0-45.0) Monocytes (%) (Auto) % (1.0-10.0) Eosinophils (%) (Auto) % (0.0-3.0) Basophils (%) (Auto) % (0.0-2.0) Differential Total Cells Counted 100 Neutrophils % (Manual) 89 % (45-75) H Lymphocytes % (Manual) 3 % (20-45) L Monocytes % (Manual) 6 % (1-10) Eosinophils % (Manual) 0 % (0-3) Basophils % (Manual) 0 % (0-2) Band Neutrophils 2 % (0-8) Platelet Estimate Adequate Platelet Morphology Normal Polychromasia 1+ Anisocytosis 2+ Macrocytosis 1+ Sodium Level 141 MMOL/L (136-145) Potassium Level 3.1 MMOL/L (3.5-5.1) L Chloride Level 108 MMOL/L (98-107) H Carbon Dioxide Level 27 MMOL/L (21-32) Anion Gap 6 mmol/L (5-15) Blood Urea Nitrogen 63 mg/dL (7-18) H Creatinine 2.9 MG/DL (0.55-1.30) H Estimat Glomerular Filtration Rate 21.2 mL/min (>60) Glucose Level 98 MG/DL (74-106) Calcium Level 8.3 MG/DL (8.5-10.1) L Total Bilirubin 0.6 MG/DL (0.2-1.0) Aspartate Amino Transf (AST/SGOT) 21 U/L (15-37) Alanine Aminotransferase (ALT/SGPT) < 6 U/L (12-78) L Alkaline Phosphatase 101 U/L (46-116) Total Protein 5.6 G/DL (6.4-8.2) L Albumin 1.2 G/DL (3.4-5.0) L Globulin 4.4 g/dL Albumin/Globulin Ratio 0.3 (1.0-2.7) L Current Medications Medications (Trade) Dose Ordered Sig/Lanny Route PRN Reason Start Time Stop Time Status Last Admin Dose Admin Acetaminophen (Tylenol) 650 mg Q4H PRN NG fever pain 05/03/20 21:30 06/02/20 21:29 Chlorhexidine Gluconate (Kayla-Hex 2%) 1 applic DAILY@2000 TOPIC 05/04/20 20:00 08/02/20 19:59 05/05/20 20:37 Clonidine HCl (Catapres Tab) 0.1 mg Q4H PRN GT SBP above 150 05/03/20 21:30 08/01/20 21:29 Dextrose/Sodium Chloride 1,000 ml @ 75 mls/hr [id number] IV 05/06/20 11:00 06/05/20 10:59 UNV Epoetin Asaf (Epoetin Asaf-EPBX(NON ESRD)) 10,000 unit FRI-FRI-FRI SUBQ 05/05/20 21:00 08/03/20 20:59 05/05/20 21:39 Ferrous Sulfate (Feosol) 300 mg THREE TIMES A DAY GT 05/05/20 21:00 08/03/20 20:59 05/06/20 08:46 Levetiracetam 100 ml @ 400 mls/hr Q12HR IVPB 05/04/20 21:00 08/02/20 20:59 05/06/20 08:48 Levothyroxine Sodium (Synthroid) 100 mcg DAILY IV 05/05/20 09:00 06/03/20 10:59 05/06/20 08:46 Linezolid 300 ml @ 300 mls/hr Q12HR IVPB 05/05/20 13:00 05/12/20 12:59 05/06/20 08:48 Midodrine (Pro-Amatine) 5 mg TID ORAL 05/05/20 09:00 08/03/20 08:59 05/06/20 08:47 Norepinephrine Bitartrate 250 ml @ 0 mls/hr Q24H IV 05/04/20 02:45 05/07/20 02:38 05/05/20 17:26 Pantoprazole (Protonix) 40 mg EVERY 12 HOURS IVP 05/04/20 21:00 06/03/20 20:59 05/06/20 08:46 Piperacillin Sod/ Tazobactam Sod 2.25 gm/Dextrose 55 ml @ 110 mls/hr Q8HR IV 05/03/20 22:00 05/08/20 21:59 05/06/20 05:16 Potassium Chloride 100 ml @ 100 mls/hr Q1HR IVPB 05/06/20 11:00 05/06/20 12:59 Janes Tabor MD May 06, 2020 11:21
--- NOTE | 2020-05-06 11:52 | Nephrology Progress Note ---
Assessment/Plan Plan Septic Shock MOF with Oliguric ARF. HD dependent. 1st HD run yesterday. See orders. JACLYN RN. Subjective Subjective Obtunded Objective Objective Last 24 Hour Vital Signs Date Time Temp Pulse Resp B/P (MAP) Pulse Ox O2 Delivery O2 Flow Rate FiO2 05/06/20 11:00 89 35 99/58 (72) 99 05/06/20 10:30 80 33 96/58 (71) 98 05/06/20 10:00 81 35 101/59 (73) 99 05/06/20 09:32 73 31 81/46 (58) 98 05/06/20 09:30 76 29 75/52 (60) 98 05/06/20 09:00 89 37 102/47 (65) 100 05/06/20 08:45 102 37 60 05/06/20 08:30 93 35 100/74 (83) 100 05/06/20 08:00 98.9 92 36 99/60 (73) 99 05/06/20 08:00 Mechanical Ventilator 05/06/20 08:00 60 05/06/20 08:00 92 05/06/20 07:21 97 42 90 05/06/20 07:00 82 36 102/59 (73) 100 05/06/20 06:00 75 35 93/59 (70) 99 05/06/20 05:00 87 37 92/57 (69) 99 05/06/20 04:51 81 38 80 05/06/20 04:00 72 05/06/20 04:00 Mechanical Ventilator 05/06/20 04:00 99.0 82 31 91/70 (77) 100 05/06/20 04:00 80 05/06/20 03:00 63 26 104/90 (95) 100 05/06/20 02:30 70 30 80 05/06/20 02:00 68 30 95/71 (79) 100 05/06/20 01:00 72 29 107/60 (76) 100 05/06/20 00:59 70 30 80 05/06/20 00:00 99.6 68 28 99/67 (78) 100 05/06/20 00:00 67 05/06/20 00:00 Mechanical Ventilator 05/06/20 00:00 80 05/05/20 23:29 70 30 80 05/05/20 23:00 76 18 102/62 (75) 100 05/05/20 22:00 83 30 106/63 (77) 100 05/05/20 21:00 86 32 119/73 (88) 100 05/05/20 20:40 84 34 80 05/05/20 20:00 98.9 78 35 115/62 (79) 100 05/05/20 20:00 84 05/05/20 20:00 Mechanical Ventilator 05/05/20 19:30 81 35 105/64 (78) 99 05/05/20 19:15 81 38 99/63 (75) 99 05/05/20 19:00 82 32 101/60 (74) 99 05/05/20 18:45 86 32 104/70 (81) 99 05/05/20 18:34 80 05/05/20 18:30 89 35 121/81 (94) 91 05/05/20 18:30 90 35 80 05/05/20 18:15 83 31 106/77 (87) 90 05/05/20 18:00 98.1 63 31 101/65 (77) 93 05/05/20 17:45 83 31 114/70 (85) 95 05/05/20 17:30 64 30 101/64 (76) 95 05/05/20 17:26 94/61 05/05/20 17:16 71 30 45 05/05/20 17:15 66 24 94/61 (72) 100 05/05/20 17:00 69 27 90/57 (68) 93 05/05/20 16:45 74 15 90/59 (69) 93 05/05/20 16:30 70 28 101/64 (76) 94 05/05/20 16:15 71 26 93/62 (72) 93 05/05/20 16:00 Mechanical Ventilator 05/05/20 16:00 74 05/05/20 16:00 99.2 72 30 98/66 (77) 92 05/05/20 16:00 50 05/05/20 15:45 86 17 100/64 (76) 91 05/05/20 15:30 80 29 94/56 (69) 92 05/05/20 15:15 82 31 97/60 (72) 93 05/05/20 15:14 88 31 50 05/05/20 15:00 86 30 98/53 (68) 93 05/05/20 14:30 85 31 90/51 (64) 99 05/05/20 14:15 105 32 103/54 (70) 100 05/05/20 14:00 103 36 102/54 (70) 99 05/05/20 13:45 103 35 100/52 (68) 99 05/05/20 13:30 101 31 100/50 (67) 99 05/05/20 13:15 89 30 50 05/05/20 13:15 104 33 93/55 (68) 99 05/05/20 13:00 102 35 96/48 (64) 99 05/05/20 12:45 106 35 94/52 (66) 99 05/05/20 12:30 105 28 94/53 (67) 99 05/05/20 12:15 105 30 106/49 (68) 99 05/05/20 12:00 Mechanical Ventilator 05/05/20 12:00 50 05/05/20 12:00 99.0 104 39 104/48 (66) 99 05/05/20 12:00 105 Intake and Output 05/05/20 05/06/20 19:00 07:00 Intake Total 2445.25427 ml 1796.6667 ml Output Total 145 ml 295 ml Balance 2300.31349 ml 1501.6667 ml IV Total 1945.10791 ml 1796.6667 ml Blood Product 500 ml Output Urine Total 95 ml 45 ml Gastric Drainage Total 50 ml 250 ml # Bowel Movements 4 3 Laboratory Tests 05/05/20 18:15: Hepatitis B Surface Antigen [Pending] 05/06/20 03:40: White Blood Count 14.2H, Red Blood Count 2.74L, Hemoglobin 9.3L, Hematocrit 28.1L, Mean Corpuscular Volume 102H, Mean Corpuscular Hemoglobin 34.1H, Mean Corpuscular Hemoglobin Concent 33.3, Red Cell Distribution Width 21.4H, Platelet Count 221, Mean Platelet Volume 6.1L, Neutrophils (%) (Auto) , Lymphocytes (%) (Auto) , Monocytes (%) (Auto) , Eosinophils (%) (Auto) , Basophils (%) (Auto) , Differential Total Cells Counted 100, Neutrophils % (Manual) 89H, Lymphocytes % (Manual) 3L, Monocytes % (Manual) 6, Eosinophils % (Manual) 0, Basophils % (Manual) 0, Band Neutrophils 2, Platelet Estimate Adequate, Platelet Morphology Normal, Polychromasia 1+, Anisocytosis 2+, Macrocytosis 1+, Sodium Level 141, Potassium Level 3.1L, Chloride Level 108H, Carbon Dioxide Level 27, Anion Gap 6, Blood Urea Nitrogen 63H, Creatinine 2.9H, Estimat Glomerular Filtration Rate 21.2, Glucose Level 98, Calcium Level 8.3L, Total Bilirubin 0.6, Aspartate Amino Transf (AST/SGOT) 21, Alanine Aminotransferase (ALT/SGPT) < 6L, Alkaline Phosphatase 101, Total Protein 5.6L, Albumin 1.2L, Globulin 4.4, Albumin/Globulin Ratio 0.3L Height (Feet): 5 Height (Inches): 7.00 Weight (Pounds): 150 Objective On 6 mcgm/min Levophed CV RR Lungs B ronchi Trach clean Abd Distended. Diminished BS. E +2 edema. Femoral Mahurkar. Ayanna Maldonado MD May 06, 2020 11:52
[2020-05-06] MEDS: D5NS 1,000 ML IV SCH (12:06)
--- NOTE | 2020-05-06 13:05 | Surgery Progress Note ---
Surgery Progress Note Subjective Procedure Performed Left femoral temporary hemodialysis catheter insertion Additional Comments first HD yesterday doing better no n/v weaning dressings going well Objective Last 24 Hour Vital Signs Date Time Temp Pulse Resp B/P (MAP) Pulse Ox O2 Delivery O2 Flow Rate FiO2 05/06/20 11:18 88 46 60 05/06/20 11:00 89 35 99/58 (72) 99 05/06/20 10:30 80 33 96/58 (71) 98 05/06/20 10:00 81 35 101/59 (73) 99 05/06/20 09:32 73 31 81/46 (58) 98 05/06/20 09:30 76 29 75/52 (60) 98 05/06/20 09:00 89 37 102/47 (65) 100 05/06/20 08:45 102 37 60 05/06/20 08:30 93 35 100/74 (83) 100 05/06/20 08:00 98.9 92 36 99/60 (73) 99 05/06/20 08:00 Mechanical Ventilator 05/06/20 08:00 60 05/06/20 08:00 92 05/06/20 07:21 97 42 90 05/06/20 07:00 82 36 102/59 (73) 100 05/06/20 06:00 75 35 93/59 (70) 99 05/06/20 05:00 87 37 92/57 (69) 99 05/06/20 04:51 81 38 80 05/06/20 04:00 72 05/06/20 04:00 Mechanical Ventilator 05/06/20 04:00 99.0 82 31 91/70 (77) 100 05/06/20 04:00 80 05/06/20 03:00 63 26 104/90 (95) 100 05/06/20 02:30 70 30 80 05/06/20 02:00 68 30 95/71 (79) 100 05/06/20 01:00 72 29 107/60 (76) 100 05/06/20 00:59 70 30 80 05/06/20 00:00 99.6 68 28 99/67 (78) 100 05/06/20 00:00 67 05/06/20 00:00 Mechanical Ventilator 05/06/20 00:00 80 05/05/20 23:29 70 30 80 05/05/20 23:00 76 18 102/62 (75) 100 05/05/20 22:00 83 30 106/63 (77) 100 05/05/20 21:00 86 32 119/73 (88) 100 05/05/20 20:40 84 34 80 05/05/20 20:00 98.9 78 35 115/62 (79) 100 05/05/20 20:00 84 05/05/20 20:00 Mechanical Ventilator 05/05/20 19:30 81 35 105/64 (78) 99 05/05/20 19:15 81 38 99/63 (75) 99 05/05/20 19:00 82 32 101/60 (74) 99 05/05/20 18:45 86 32 104/70 (81) 99 05/05/20 18:34 80 05/05/20 18:30 89 35 121/81 (94) 91 05/05/20 18:30 90 35 80 05/05/20 18:15 83 31 106/77 (87) 90 05/05/20 18:00 98.1 63 31 101/65 (77) 93 05/05/20 17:45 83 31 114/70 (85) 95 05/05/20 17:30 64 30 101/64 (76) 95 05/05/20 17:26 94/61 05/05/20 17:16 71 30 45 05/05/20 17:15 66 24 94/61 (72) 100 05/05/20 17:00 69 27 90/57 (68) 93 05/05/20 16:45 74 15 90/59 (69) 93 05/05/20 16:30 70 28 101/64 (76) 94 05/05/20 16:15 71 26 93/62 (72) 93 05/05/20 16:00 Mechanical Ventilator 05/05/20 16:00 74 05/05/20 16:00 99.2 72 30 98/66 (77) 92 05/05/20 16:00 50 05/05/20 15:45 86 17 100/64 (76) 91 05/05/20 15:30 80 29 94/56 (69) 92 05/05/20 15:15 82 31 97/60 (72) 93 05/05/20 15:14 88 31 50 05/05/20 15:00 86 30 98/53 (68) 93 05/05/20 14:30 85 31 90/51 (64) 99 05/05/20 14:15 105 32 103/54 (70) 100 05/05/20 14:00 103 36 102/54 (70) 99 05/05/20 13:45 103 35 100/52 (68) 99 05/05/20 13:30 101 31 100/50 (67) 99 05/05/20 13:15 89 30 50 05/05/20 13:15 104 33 93/55 (68) 99 I&O Intake and Output 05/05/20 05/06/20 19:00 07:00 Intake Total 2445.30832 ml 1796.6667 ml Output Total 145 ml 295 ml Balance 2300.41818 ml 1501.6667 ml IV Total 1945.53721 ml 1796.6667 ml Blood Product 500 ml Output Urine Total 95 ml 45 ml Gastric Drainage Total 50 ml 250 ml # Bowel Movements 4 3 Dressing: saturated Cardiovascular: RSR Respiratory: decreased breath sounds Abdomen: non-tender, present bowel sounds Extremities: no tenderness, no cyanosis, other Laboratory Tests Test 05/05/20 18:15 05/06/20 03:40 05/06/20 12:08 Hepatitis B Surface Antigen Pending White Blood Count 14.2 K/UL (4.8-10.8) H Red Blood Count 2.74 M/UL (4.70-6.10) L Hemoglobin 9.3 G/DL (14.2-18.0) L Hematocrit 28.1 % (42.0-52.0) L Mean Corpuscular Volume 102 FL (80-99) H Mean Corpuscular Hemoglobin 34.1 PG (27.0-31.0) H Mean Corpuscular Hemoglobin Concent 33.3 G/DL (32.0-36.0) Red Cell Distribution Width 21.4 % (11.6-14.8) H Platelet Count 221 K/UL (150-450) Mean Platelet Volume 6.1 FL (6.5-10.1) L Neutrophils (%) (Auto) % (45.0-75.0) Lymphocytes (%) (Auto) % (20.0-45.0) Monocytes (%) (Auto) % (1.0-10.0) Eosinophils (%) (Auto) % (0.0-3.0) Basophils (%) (Auto) % (0.0-2.0) Differential Total Cells Counted 100 Neutrophils % (Manual) 89 % (45-75) H Lymphocytes % (Manual) 3 % (20-45) L Monocytes % (Manual) 6 % (1-10) Eosinophils % (Manual) 0 % (0-3) Basophils % (Manual) 0 % (0-2) Band Neutrophils 2 % (0-8) Platelet Estimate Adequate Platelet Morphology Normal Polychromasia 1+ Anisocytosis 2+ Macrocytosis 1+ Sodium Level 141 MMOL/L (136-145) Potassium Level 3.1 MMOL/L (3.5-5.1) L Chloride Level 108 MMOL/L (98-107) H Carbon Dioxide Level 27 MMOL/L (21-32) Anion Gap 6 mmol/L (5-15) Blood Urea Nitrogen 63 mg/dL (7-18) H Creatinine 2.9 MG/DL (0.55-1.30) H Estimat Glomerular Filtration Rate 21.2 mL/min (>60) Glucose Level 98 MG/DL (74-106) Calcium Level 8.3 MG/DL (8.5-10.1) L Total Bilirubin 0.6 MG/DL (0.2-1.0) Aspartate Amino Transf (AST/SGOT) 21 U/L (15-37) Alanine Aminotransferase (ALT/SGPT) < 6 U/L (12-78) L Alkaline Phosphatase 101 U/L (46-116) Total Protein 5.6 G/DL (6.4-8.2) L Albumin 1.2 G/DL (3.4-5.0) L Globulin 4.4 g/dL Albumin/Globulin Ratio 0.3 (1.0-2.7) L Arterial Blood pH 7.401 (7.350-7.450) Arterial Blood Partial Pressure CO2 39.0 mmHg (35.0-45.0) Arterial Blood Partial Pressure O2 82.6 mmHg (75.0-100.0) Arterial Blood HCO3 23.7 mmol/L (22.0-26.0) Arterial Blood Oxygen Saturation 96.4 % (95-100) Arterial Blood Base Excess -1.0 (-2-2) [place] Test Positive Plan Problems: (1) Dehydration (2) Ventilator associated pneumonia (3) AUDREY (acute kidney injury) (4) Hypokalemia (5) Hyperkalemia (6) Hypomagnesemia (7) Anemia (8) Decubitus skin ulcer Assessment & Plan: Pt presented on admission with gross contractures, Multiple Pressure Injuries, Tracheostomy. Skin Assessed under tracheal collar and no evidence of skin breakdown noted. Tear noted to urinary meatus- no exudate noted. Scrotum is erythematous with scattered satellite lesions. Large ulcer noted to R scrotal sac (L)4cm x (W)4.6cm. Base of wound is erythematous ,moist with Biofilm. Sacral DTPI with clusters of small islands of slough with surrounding maroon and indurated areas (L)8cm x (W)12cm.Mild Odor noted. Partial thickness Pressure Injury Upper/outer R buttocks(L)1.8cm x (W)1.3cm. Base of wound is moist and viable. Edges adherent to base of wound. Surrounding non-blanching erythema with scattered areas of shearing noted. Partial thickness Pressure Inferior lower R buttocks.(L)0.8cm x (W)1.2cm. Base of wound is moist and viable. Edges adherent to base of wound. Surrounding non- blanching erythema with scattered shearing noted extending into R ischial tuberosity. Clusters of small hyperpigmentation noted to L trochanteric and L ischial tuberosity. R Heel is fluctuant with scattered dry eschar and surrounding Non-Blanchable erythema.(L)6.5cm x (W)8cm. DTPI distal/lateral R foot(L)3cm x (W)3cm. Base of wound is maroon and fluctuant. dry eschar noted to tip of R 1st metatarsal with surrounding non-blanchable erythema extending dorsally and laterally of metatarsal(L)5cm x (W)1.3cm Non-Blanchable erythema that is fluctuant at base noted to dorso/lateral L 5th metatarsal(L)0.6cm x (W)0.3cm. L Heel is boggy with non-blanchable erythema laterally. Hyperpigmentation from previous wound noted at L heel. Tx.Plan: Cleanse Sacral wound with Saline. Apply TheraHoney to slough. Apply Moisture Barrier Paste periwound. Cover with Optifoam drsg. Change daily and prn. Apply Moisture Barrier Paste to Wounds R upper and lower R Buttocks. Cover each wound with Optifoam drsg. Change every 3 days and prn. Apply Zinc Oxide Paste to Scrotal Wounds TID and prn. Apply Betadine to wounds R heel and R foot . Cover with ABD Pads and wrap with Kerlix every 3 days and prn. Apply Betadine to L foot. Cover with ABD Pads and wrap with Kerlix every 3 days and prn. Cover Bony Prominences as needed with Optifoam drsgs. Reposition at least every 2hours or as tolerated. Off-load heels with pillow. APM/VIRAL Mattress DAILY ESTIMATED NEEDS: Needs based on Critical care, 63kg 22-30 kcals/kg 7158-4581 total kcals 1.25-2 g protein/kg 79-126 g total protein 25-30 mL/kg 2566-5377 total fluid mLs NUTRITION DIAGNOSIS: Swallowing difficulty r/ respiratory status as evidenced by pt is vent dep via trach, PEG dep. CURRENT TF:NPO ENTERAL NUTRITION RECOMMENDATIONS: Vital AF 1.2 @ 55ml/hr x 22 hrs to provide 1210ml, 1452kcal, 91g prot, 981ml free water - As medically able, rec Vital 1.2. Start @15ml/hr for 6 hrs, advance as tolerated 10ml/hr q4-6 hrs to goal. - Hold 1 hr before and after synthroid. - Flush per , HOB over 30 degrees - Feed w/ hemodynamic stability. ADDITIONAL RECOMMENDATIONS: 1) Obtain calibrated bed scale wts-> recent adm wt was 63kg vs 68kg today 2) Monitor renal labs and lytes, need for renal formula 3) Rec WC eval -> currently NPO 4) Monitor hemodynamic stability, ability to feed (9) SOB (shortness of breath) (10) Hypernatremia (11) Aspiration pneumonia (12) Renal insufficiency (13) Respiratory insufficiency (14) Respiratory failure (15) Malnutrition (16) Sepsis Assessment & Plan: Leukocytosis, lactic acidosis, abnormal labs. In ICU resuscitation imaging noted micro noted. 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
[2020-05-06] MEDS: Norepinephrine 4mg/NS Premix 250 ML IV SCH (13:16)
--- NOTE | 2020-05-06 17:24 | General Progress Note ---
Subjective Allergies: Coded Allergies: No Known Allergies (Unverified , 02/23/12) Subjective Above noted seen in ICU GT aspirate now more bloody on Levo at 6 mcg s/p 2 unit transfusion also some bleeding from trach site ASA and sq heparin held Objective Last 24 Hour Vital Signs Date Time Temp Pulse Resp B/P (MAP) Pulse Ox O2 Delivery O2 Flow Rate FiO2 05/06/20 16:00 88 36 104/60 (75) 99 05/06/20 15:30 91 36 105/64 (78) 99 05/06/20 15:00 89 34 106/62 (77) 99 05/06/20 14:30 87 30 103/65 (78) 99 05/06/20 14:00 82 32 97/60 (72) 98 05/06/20 13:30 80 34 85/52 (63) 98 05/06/20 13:16 99/58 05/06/20 13:12 90 44 60 05/06/20 13:00 88 37 94/58 (70) 99 05/06/20 12:30 88 38 99/57 (71) 99 05/06/20 12:00 99.0 89 30 94/56 (69) 99 05/06/20 11:18 88 46 60 05/06/20 11:00 89 35 99/58 (72) 99 05/06/20 10:30 80 33 96/58 (71) 98 05/06/20 10:00 81 35 101/59 (73) 99 05/06/20 09:32 73 31 81/46 (58) 98 05/06/20 09:30 76 29 75/52 (60) 98 05/06/20 09:00 89 37 102/47 (65) 100 05/06/20 08:45 102 37 60 05/06/20 08:30 93 35 100/74 (83) 100 05/06/20 08:00 98.9 92 36 99/60 (73) 99 05/06/20 08:00 Mechanical Ventilator 05/06/20 08:00 60 05/06/20 08:00 92 05/06/20 07:21 97 42 90 05/06/20 07:00 82 36 102/59 (73) 100 05/06/20 06:00 75 35 93/59 (70) 99 05/06/20 05:00 87 37 92/57 (69) 99 05/06/20 04:51 81 38 80 05/06/20 04:00 72 05/06/20 04:00 Mechanical Ventilator 05/06/20 04:00 99.0 82 31 91/70 (77) 100 05/06/20 04:00 80 05/06/20 03:00 63 26 104/90 (95) 100 05/06/20 02:30 70 30 80 05/06/20 02:00 68 30 95/71 (79) 100 05/06/20 01:00 72 29 107/60 (76) 100 05/06/20 00:59 70 30 80 05/06/20 00:00 99.6 68 28 99/67 (78) 100 05/06/20 00:00 67 05/06/20 00:00 Mechanical Ventilator 05/06/20 00:00 80 05/05/20 23:29 70 30 80 05/05/20 23:00 76 18 102/62 (75) 100 05/05/20 22:00 83 30 106/63 (77) 100 05/05/20 21:00 86 32 119/73 (88) 100 05/05/20 20:40 84 34 80 05/05/20 20:00 98.9 78 35 115/62 (79) 100 05/05/20 20:00 84 05/05/20 20:00 Mechanical Ventilator 05/05/20 19:30 81 35 105/64 (78) 99 05/05/20 19:15 81 38 99/63 (75) 99 05/05/20 19:00 82 32 101/60 (74) 99 05/05/20 18:45 86 32 104/70 (81) 99 05/05/20 18:34 80 05/05/20 18:30 89 35 121/81 (94) 91 05/05/20 18:30 90 35 80 05/05/20 18:15 83 31 106/77 (87) 90 05/05/20 18:00 98.1 63 31 101/65 (77) 93 05/05/20 17:45 83 31 114/70 (85) 95 05/05/20 17:30 64 30 101/64 (76) 95 05/05/20 17:26 94/61 05/05/20 17:16 71 30 45 05/05/20 17:15 66 24 94/61 (72) 100 Intake and Output 05/05/20 05/06/20 19:00 07:00 Intake Total 2445.56452 ml 1796.6667 ml Output Total 145 ml 295 ml Balance 2300.51037 ml 1501.6667 ml IV Total 1945.69118 ml 1796.6667 ml Blood Product 500 ml Output Urine Total 95 ml 45 ml Gastric Drainage Total 50 ml 250 ml # Bowel Movements 4 3 Laboratory Tests 05/05/20 18:15: Hepatitis B Surface Antigen [Pending] 05/06/20 03:40: White Blood Count 14.2H, Red Blood Count 2.74L, Hemoglobin 9.3L, Hematocrit 28.1L, Mean Corpuscular Volume 102H, Mean Corpuscular Hemoglobin 34.1H, Mean Corpuscular Hemoglobin Concent 33.3, Red Cell Distribution Width 21.4H, Platelet Count 221, Mean Platelet Volume 6.1L, Neutrophils (%) (Auto) , Lymphocytes (%) (Auto) , Monocytes (%) (Auto) , Eosinophils (%) (Auto) , Basophils (%) (Auto) , Differential Total Cells Counted 100, Neutrophils % (Manual) 89H, Lymphocytes % (Manual) 3L, Monocytes % (Manual) 6, Eosinophils % (Manual) 0, Basophils % (Manual) 0, Band Neutrophils 2, Platelet Estimate Adequate, Platelet Morphology Normal, Polychromasia 1+, Anisocytosis 2+, Macrocytosis 1+, Sodium Level 141, Potassium Level 3.1L, Chloride Level 108H, Carbon Dioxide Level 27, Anion Gap 6, Blood Urea Nitrogen 63H, Creatinine 2.9H, Estimat Glomerular Filtration Rate 21.2, Glucose Level 98, Calcium Level 8.3L, Total Bilirubin 0.6, Aspartate Amino Transf (AST/SGOT) 21, Alanine Aminotransferase (ALT/SGPT) < 6L, Alkaline Phosphatase 101, Total Protein 5.6L, Albumin 1.2L, Globulin 4.4, Albumin/Globulin Ratio 0.3L 05/06/20 12:08: Arterial Blood pH 7.401, Arterial Blood Partial Pressure CO2 39.0, Arterial Blood Partial Pressure O2 82.6, Arterial Blood HCO3 23.7, Arterial Blood Oxygen Saturation 96.4, Arterial Blood Base Excess -1.0, [place] Test Positive Height (Feet): 5 Height (Inches): 7.00 Weight (Pounds): 150 Objective NCAT (+) trach Coarse BS RR abd soft, (+) GT (++) contracted Assessment/Plan Status: stable, not improved Assessment/Plan: Assessment - Upper GI bleed - GT output now dark red - h/o gastric ulcer - anemia - renal failure - resp failure - contractures - Poor prognosis Recommendations - Continue GT ---> LIS - monitor H&H - IV PPI - transfuse PRN - dc po FeSO4 - await DPOA visit tomorrow - Will consider EGD next week if OK with consultants Clive Kuo MD May 06, 2020 17:24
--- NOTE | 2020-05-06 20:05 | Cardiology Progress Note ---
Subjective DATE OF SERVICE: May 06, 2020 Remains Critical & Guarded On vent support Still requiring pressor support - on norepinephrine with dose advanced today. IV thyroid replacement for TSH of 49. Has coffee grounds from GTube; req'd 2 units of PRBC's yesterday; getting FFP today. Renal function remains impaired with poor urine output; patient had HD yesterday. Objective Last 24 Hour Vital Signs Date Time Temp Pulse Resp B/P (MAP) Pulse Ox O2 Delivery O2 Flow Rate FiO2 05/06/20 19:28 85 30 60 05/06/20 19:00 81 36 97/63 (74) 98 05/06/20 18:00 77 32 98/62 (74) 97 05/06/20 17:30 86 22 89/57 (68) 96 05/06/20 17:02 89 40 60 05/06/20 17:00 99.0 89 33 88/53 (65) 98 05/06/20 16:00 60 05/06/20 16:00 89 05/06/20 16:00 88 36 104/60 (75) 99 05/06/20 16:00 Mechanical Ventilator 05/06/20 15:30 91 36 105/64 (78) 99 05/06/20 15:08 88 39 60 05/06/20 15:00 89 34 106/62 (77) 99 05/06/20 14:30 87 30 103/65 (78) 99 05/06/20 14:00 82 32 97/60 (72) 98 05/06/20 13:30 80 34 85/52 (63) 98 05/06/20 13:16 99/58 05/06/20 13:12 90 44 60 05/06/20 13:00 88 37 94/58 (70) 99 05/06/20 12:30 88 38 99/57 (71) 99 05/06/20 12:00 99.0 89 30 94/56 (69) 99 05/06/20 12:00 60 05/06/20 12:00 89 05/06/20 12:00 Mechanical Ventilator 05/06/20 11:18 88 46 60 05/06/20 11:00 89 35 99/58 (72) 99 05/06/20 10:30 80 33 96/58 (71) 98 05/06/20 10:00 81 35 101/59 (73) 99 05/06/20 09:32 73 31 81/46 (58) 98 05/06/20 09:30 76 29 75/52 (60) 98 05/06/20 09:00 89 37 102/47 (65) 100 05/06/20 08:45 102 37 60 05/06/20 08:30 93 35 100/74 (83) 100 05/06/20 08:00 98.9 92 36 99/60 (73) 99 05/06/20 08:00 Mechanical Ventilator 05/06/20 08:00 60 05/06/20 08:00 92 05/06/20 07:21 97 42 90 05/06/20 07:00 82 36 102/59 (73) 100 05/06/20 06:00 75 35 93/59 (70) 99 05/06/20 05:00 87 37 92/57 (69) 99 05/06/20 04:51 81 38 80 05/06/20 04:00 72 05/06/20 04:00 Mechanical Ventilator 05/06/20 04:00 99.0 82 31 91/70 (77) 100 05/06/20 04:00 80 05/06/20 03:00 63 26 104/90 (95) 100 05/06/20 02:30 70 30 80 05/06/20 02:00 68 30 95/71 (79) 100 05/06/20 01:00 72 29 107/60 (76) 100 05/06/20 00:59 70 30 80 05/06/20 00:00 99.6 68 28 99/67 (78) 100 05/06/20 00:00 67 05/06/20 00:00 Mechanical Ventilator 05/06/20 00:00 80 05/05/20 23:29 70 30 80 05/05/20 23:00 76 18 102/62 (75) 100 05/05/20 22:00 83 30 106/63 (77) 100 05/05/20 21:00 86 32 119/73 (88) 100 05/05/20 20:40 84 34 80 05/05/20 20:00 98.9 78 35 115/62 (79) 100 05/05/20 20:00 84 05/05/20 20:00 Mechanical Ventilator ROS: no change from my admit note. HEENT: Thick Trach secretions RHYTHM: ST LUNGS: bilateral rhonchi CARDIAC: normal rate, regular rhythm, normal S1 and S2 ABDOMEN: normal bowel sounds, soft, no organomegaly, G-Tube intact EXTREMITIES: trace edema Laboratory Tests Test 05/06/20 03:40 05/06/20 12:08 White Blood Count 14.2 K/UL (4.8-10.8) H Red Blood Count 2.74 M/UL (4.70-6.10) L Hemoglobin 9.3 G/DL (14.2-18.0) L Hematocrit 28.1 % (42.0-52.0) L Mean Corpuscular Volume 102 FL (80-99) H Mean Corpuscular Hemoglobin 34.1 PG (27.0-31.0) H Mean Corpuscular Hemoglobin Concent 33.3 G/DL (32.0-36.0) Red Cell Distribution Width 21.4 % (11.6-14.8) H Platelet Count 221 K/UL (150-450) Mean Platelet Volume 6.1 FL (6.5-10.1) L Neutrophils (%) (Auto) % (45.0-75.0) Lymphocytes (%) (Auto) % (20.0-45.0) Monocytes (%) (Auto) % (1.0-10.0) Eosinophils (%) (Auto) % (0.0-3.0) Basophils (%) (Auto) % (0.0-2.0) Differential Total Cells Counted 100 Neutrophils % (Manual) 89 % (45-75) H Lymphocytes % (Manual) 3 % (20-45) L Monocytes % (Manual) 6 % (1-10) Eosinophils % (Manual) 0 % (0-3) Basophils % (Manual) 0 % (0-2) Band Neutrophils 2 % (0-8) Platelet Estimate Adequate Platelet Morphology Normal Polychromasia 1+ Anisocytosis 2+ Macrocytosis 1+ Sodium Level 141 MMOL/L (136-145) Potassium Level 3.1 MMOL/L (3.5-5.1) L Chloride Level 108 MMOL/L (98-107) H Carbon Dioxide Level 27 MMOL/L (21-32) Anion Gap 6 mmol/L (5-15) Blood Urea Nitrogen 63 mg/dL (7-18) H Creatinine 2.9 MG/DL (0.55-1.30) H Estimat Glomerular Filtration Rate 21.2 mL/min (>60) Glucose Level 98 MG/DL (74-106) Calcium Level 8.3 MG/DL (8.5-10.1) L Total Bilirubin 0.6 MG/DL (0.2-1.0) Aspartate Amino Transf (AST/SGOT) 21 U/L (15-37) Alanine Aminotransferase (ALT/SGPT) < 6 U/L (12-78) L Alkaline Phosphatase 101 U/L (46-116) Total Protein 5.6 G/DL (6.4-8.2) L Albumin 1.2 G/DL (3.4-5.0) L Globulin 4.4 g/dL Albumin/Globulin Ratio 0.3 (1.0-2.7) L Arterial Blood pH 7.401 (7.350-7.450) Arterial Blood Partial Pressure CO2 39.0 mmHg (35.0-45.0) Arterial Blood Partial Pressure O2 82.6 mmHg (75.0-100.0) Arterial Blood HCO3 23.7 mmol/L (22.0-26.0) Arterial Blood Oxygen Saturation 96.4 % (95-100) Arterial Blood Base Excess -1.0 (-2-2) [place] Test Positive Microbiology Date/Time Source Procedure Growth Status 05/04/20 08:30 Sputum Gram Stain - Final Resulted 05/04/20 08:30 Sputum Culture - Preliminary Klebsiella Pneumoniae Resulted Assessment/Plan Assessment/Plan Shock Sepsis Leukocytosis GI bleeding Anemia Hypokalemia Ventilator dep respiratory failure Severe protein calorie malnutrition Ac/chronic diastolic CHF Acute renal failure Pressor support with taper as able Vent support Antimicrobials IV thyroid replacement IVF; hold K+ suppl with renal failure. Consider PRBC transfusion for recurrent bleeding; hold all anti-plt and anti- coagulants. DVT prophylaxis Add'l dialysis per renal Defer EGD for now. Franko Pineda MD May 06, 2020 20:05
[2020-05-06] MEDS: Dyna-Hex 2% Top Sol 2oz TOPIC SCH (20:27)
[2020-05-06] MEDS: Colistin for inhalation INH SCH (22:00)
[2020-05-07] VITALS (37 sets, daily range): BP systolic 86–118; BP diastolic 54–72
[2020-05-07 05:07] LABS: HEMATOCRIT 27.9 % (42.0-52.0); MEAN CORPUSCULAR VOLUME 104 FL (80-99); PLATELET COUNT 149 K/UL (150-450); RED BLOOD COUNT 2.68 M/UL (4.70-6.10); RED CELL DISTRIBUTION WIDTH 21.6 % (11.6-14.8); WHITE BLOOD COUNT 14.9 K/UL (4.8-10.8)
[2020-05-07 05:55] LABS: ALBUMIN 1.2 G/DL (3.4-5.0); ALBUMIN/GLOBULIN RATIO 0.2 (1.0-2.7); ALKALINE PHOSPHATASE 93 U/L (46-116); ANION GAP 11 mmol/L (5-15); ASPARTATE AMINO TRANSFERASE 20 U/L (15-37); BILIRUBIN,TOTAL 0.4 MG/DL (0.2-1.0); BLOOD UREA NITROGEN 66 mg/dL (7-18); CALCIUM 8.1 MG/DL (8.5-10.1); CARBON DIOXIDE 23 MMOL/L (21-32); CHLORIDE 109 MMOL/L (98-107); CREATININE 3.3 MG/DL (0.55-1.30); SODIUM 143 MMOL/L (136-145)
[2020-05-07 06:05] LABS: ALANINE AMINOTRANSFERASE < 6 U/L (12-78); POTASSIUM 2.5 MMOL/L (3.5-5.1)
[2020-05-07] MEDS: D5NS 1,000 ML IV SCH (06:44)
--- NOTE | 2020-05-07 08:56 | General Progress Note ---
Subjective ROS Limited/Unobtainable: No Constitutional: Reports: malaise, weakness HEENT: Reports: no symptoms Cardiovascular: Reports: no symptoms Respiratory: Reports: cough, shortness of breath, sputum Gastrointestinal/Abdominal: Reports: difficulty swallowing Genitourinary: Reports: no symptoms Neurologic/Psychiatric: Reports: pre-existing deficit, seizure Endocrine: Reports: no symptoms Hematologic/Lymphatic: Reports: anemia Allergies: Coded Allergies: No Known Allergies (Unverified , 02/23/12) All Systems: reviewed and negative except above Subjective no overnight events. on the vent. 200cc bloody output from gt. h/h stable. on levo at 2. uop remains poor. + generalized edema. no szs. Objective Last 24 Hour Vital Signs Date Time Temp Pulse Resp B/P (MAP) Pulse Ox O2 Delivery O2 Flow Rate FiO2 05/07/20 07:00 72 31 97/56 (70) 99 05/07/20 07:00 97/54 05/07/20 06:35 70 35 60 05/07/20 06:00 103/62 05/07/20 06:00 72 36 103/62 (76) 99 05/07/20 05:30 71 34 60 05/07/20 05:00 71 27 93/54 (67) 100 05/07/20 05:00 87/53 05/07/20 04:00 98.5 70 39 95/58 (70) 99 05/07/20 04:00 75 05/07/20 04:00 Mechanical Ventilator 05/07/20 04:00 60 05/07/20 03:44 91/55 05/07/20 03:00 67 27 93/59 (70) 95 05/07/20 02:30 65 32 60 05/07/20 02:00 75 39 98/64 (75) 99 05/07/20 01:49 90 30 60 05/07/20 01:00 72 28 97/62 (74) 100 05/07/20 00:00 74 05/07/20 00:00 99.6 78 30 101/64 (76) 98 05/07/20 00:00 Mechanical Ventilator 05/06/20 23:30 75 30 60 05/06/20 22:00 81 28 104/66 (79) 100 05/06/20 21:56 86 38 60 11/7/20 21:00 87 32 105/64 (78) 98 05/06/20 20:00 60 05/06/20 20:00 82 05/06/20 20:00 99.2 86 33 101/61 (74) 99 05/06/20 20:00 Mechanical Ventilator 05/06/20 19:28 85 30 60 05/06/20 19:00 81 36 97/63 (74) 98 05/06/20 18:00 77 32 98/62 (74) 97 05/06/20 17:30 86 22 89/57 (68) 96 05/06/20 17:02 89 40 60 05/06/20 17:00 99.0 89 33 88/53 (65) 98 05/06/20 16:00 60 05/06/20 16:00 89 05/06/20 16:00 88 36 104/60 (75) 99 05/06/20 16:00 Mechanical Ventilator 05/06/20 15:30 91 36 105/64 (78) 99 05/06/20 15:08 88 39 60 05/06/20 15:00 89 34 106/62 (77) 99 05/06/20 14:30 87 30 103/65 (78) 99 05/06/20 14:00 82 32 97/60 (72) 98 05/06/20 13:30 80 34 85/52 (63) 98 05/06/20 13:16 99/58 05/06/20 13:12 90 44 60 05/06/20 13:00 88 37 94/58 (70) 99 05/06/20 12:30 88 38 99/57 (71) 99 05/06/20 12:00 99.0 89 30 94/56 (69) 99 05/06/20 12:00 60 05/06/20 12:00 89 05/06/20 12:00 Mechanical Ventilator 05/06/20 11:18 88 46 60 05/06/20 11:00 89 35 99/58 (72) 99 05/06/20 10:30 80 33 96/58 (71) 98 05/06/20 10:00 81 35 101/59 (73) 99 05/06/20 09:32 73 31 81/46 (58) 98 05/06/20 09:30 76 29 75/52 (60) 98 05/06/20 09:00 89 37 102/47 (65) 100 Intake and Output 05/06/20 05/07/20 19:00 07:00 Intake Total 1685.0 ml 1331.5 ml Output Total 45 ml 420 ml Balance 1640.0 ml 911.5 ml IV Total 1685.0 ml 1047.5 ml Blood Product 284 ml Output Urine Total 45 ml 20 ml Gastric Drainage Total 400 ml # Voids 1 # Bowel Movements 4 2 Laboratory Tests 05/06/20 12:08: Arterial Blood pH 7.401, Arterial Blood Partial Pressure CO2 39.0, Arterial Blood Partial Pressure O2 82.6, Arterial Blood HCO3 23.7, Arterial Blood Oxygen Saturation 96.4, Arterial Blood Base Excess -1.0, Urbano Test Positive 05/07/20 03:50: White Blood Count 14.9H, Red Blood Count 2.68L, Hemoglobin 9.0L, Hematocrit 27.9L, Mean Corpuscular Volume 104H, Mean Corpuscular Hemoglobin 33.6H, Mean Corpuscular Hemoglobin Concent 32.2, Red Cell Distribution Width 21.6H, Platelet Count 149L, Mean Platelet Volume 6.6, Neutrophils (%) (Auto) , Lymphocytes (%) (Auto) , Monocytes (%) (Auto) , Eosinophils (%) (Auto) , Basophils (%) (Auto) , Neutrophils % (Manual) [Pending], Lymphocytes % (Manual) [Pending], Platelet Estimate [Pending], Platelet Morphology [Pending], Sodium Level 143, Potassium Level 2.5*L, Chloride Level 109H, Carbon Dioxide Level 23, Anion Gap 11, Blood Urea Nitrogen 66H, Creatinine 3.3H, Estimat Glomerular Filtration Rate 18.2, Glucose Level 100, Calcium Level 8.1L, Total Bilirubin 0.4, Aspartate Amino Transf (AST/SGOT) 20, Alanine Aminotransferase (ALT/SGPT) < 6L, Alkaline Phosphatase 93, Total Protein 6.1L, Albumin 1.2L, Globulin 4.9, Albumin/Globulin Ratio 0.2L Height (Feet): 5 Height (Inches): 7.00 Weight (Pounds): 150 Objective General Appearance: WD/WN, lethargic, confused EENT: PERRL/EOMI, normal ENT inspection Neck: normal alignment, supple Cardiovascular: normal rate Respiratory/Chest: chest wall non-tender, lungs clear, crackles/rales, rhonchi - bilaterally Abdomen: normal bowel sounds, non tender, soft, no organomegaly Edema: no edema noted Arm (L), no edema noted Arm (R) Neurologic: disoriented, unresponsive, aphasia Skin: normal pigmentation Assessment/Plan Problem List: (1) Dehydration ICD Codes: E86.0 - Dehydration SNOMED: 38492187 (2) Ventilator associated pneumonia ICD Codes: J95.851 - Ventilator associated pneumonia SNOMED: 163426908, 95647758 (3) AUDREY (acute kidney injury) ICD Codes: N17.9 - Acute kidney failure, unspecified SNOMED: 1840981, 47391513 (4) Anemia ICD Codes: D64.9 - Anemia, unspecified SNOMED: 986148169, 350656776 (5) HCAP (healthcare-associated pneumonia) ICD Codes: J18.9 - Pneumonia, unspecified organism SNOMED: 107171420, 070074758 (6) CKD (chronic kidney disease) stage 3, GFR 30-59 ml/min ICD Codes: N18.3 - Chronic kidney disease, stage 3 (moderate) SNOMED: 033945320 (7) GIB (gastrointestinal bleeding) ICD Codes: K92.2 - Gastrointestinal hemorrhage, unspecified SNOMED: 84016950 (8) ARF (acute renal failure) ICD Codes: N17.9 - Acute kidney failure, unspecified SNOMED: 81047532, 953565828 (9) Pneumonia ICD Codes: J18.9 - Pneumonia, unspecified organism SNOMED: 152566092 (10) UTI (urinary tract infection) ICD Codes: N39.0 - Urinary tract infection, site not specified SNOMED: 76843867, 822322547 (11) Sepsis ICD Codes: A41.9 - Sepsis, unspecified organism SNOMED: 77567122 (12) Respiratory failure ICD Codes: J96.90 - Respiratory failure, unspecified, unspecified whether with hypoxia or hypercapnia SNOMED: 965890795 Status: stable, not improved Assessment/Plan: ivf? HD per renal IV abx per ID follow up cultures vent support resp rx monitor h/h PPI pressors as needed transfuse as needed wound care possible endoscopy tomorrow if stable critical and guarded Jimi Tellez MD May 07, 2020 08:56
[2020-05-07] MEDS: levETIRAcetam 500mg/NS100ml 100 ML IVPB SCH ×2 (09:39→20:16)
[2020-05-07] MEDS: Pantoprazole Inj IVP SCH ×2 (09:39→20:16)
--- NOTE | 2020-05-07 10:09 | Nephrology Progress Note ---
Assessment/Plan Plan Septic Shock MOF with Oliguric ARF. HD dependent. 1st HD run yesterday. See orders. JACLYN RN. HD MWF. Hypokalemia m/p due to GI losses. Given IV correction. Subjective Subjective Obtunded Objective Objective Last 24 Hour Vital Signs Date Time Temp Pulse Resp B/P (MAP) Pulse Ox O2 Delivery O2 Flow Rate FiO2 05/07/20 07:00 72 31 97/56 (70) 99 05/07/20 07:00 97/54 05/07/20 06:35 70 35 60 05/07/20 06:00 103/62 05/07/20 06:00 72 36 103/62 (76) 99 05/07/20 05:30 71 34 60 05/07/20 05:00 71 27 93/54 (67) 100 05/07/20 05:00 87/53 05/07/20 04:00 98.5 70 39 95/58 (70) 99 05/07/20 04:00 75 05/07/20 04:00 Mechanical Ventilator 05/07/20 04:00 60 05/07/20 03:44 91/55 05/07/20 03:00 67 27 93/59 (70) 95 05/07/20 02:30 65 32 60 05/07/20 02:00 75 39 98/64 (75) 99 05/07/20 01:49 90 30 60 05/07/20 01:00 72 28 97/62 (74) 100 05/07/20 00:00 74 05/07/20 00:00 99.6 78 30 101/64 (76) 98 05/07/20 00:00 Mechanical Ventilator 05/06/20 23:30 75 30 60 05/06/20 22:00 81 28 104/66 (79) 100 05/06/20 21:56 86 38 60 05/06/20 21:00 87 32 105/64 (78) 98 05/06/20 20:00 60 05/06/20 20:00 82 05/06/20 20:00 99.2 86 33 101/61 (74) 99 05/06/20 20:00 Mechanical Ventilator 05/06/20 19:28 85 30 60 05/06/20 19:00 81 36 97/63 (74) 98 05/06/20 18:00 77 32 98/62 (74) 97 05/06/20 17:30 86 22 89/57 (68) 96 05/06/20 17:02 89 40 60 05/06/20 17:00 99.0 89 33 88/53 (65) 98 05/06/20 16:00 60 05/06/20 16:00 89 05/06/20 16:00 88 36 104/60 (75) 99 05/06/20 16:00 Mechanical Ventilator 05/06/20 15:30 91 36 105/64 (78) 99 05/06/20 15:08 88 39 60 05/06/20 15:00 89 34 106/62 (77) 99 05/06/20 14:30 87 30 103/65 (78) 99 05/06/20 14:00 82 32 97/60 (72) 98 05/06/20 13:30 80 34 85/52 (63) 98 05/06/20 13:16 99/58 05/06/20 13:12 90 44 60 05/06/20 13:00 88 37 94/58 (70) 99 05/06/20 12:30 88 38 99/57 (71) 99 05/06/20 12:00 99.0 89 30 94/56 (69) 99 05/06/20 12:00 60 05/06/20 12:00 89 05/06/20 12:00 Mechanical Ventilator 05/06/20 11:18 88 46 60 05/06/20 11:00 89 35 99/58 (72) 99 05/06/20 10:30 80 33 96/58 (71) 98 Intake and Output 05/06/20 05/07/20 19:00 07:00 Intake Total 1685.0 ml 1331.5 ml Output Total 45 ml 420 ml Balance 1640.0 ml 911.5 ml IV Total 1685.0 ml 1047.5 ml Blood Product 284 ml Output Urine Total 45 ml 20 ml Gastric Drainage Total 400 ml # Voids 1 # Bowel Movements 4 2 Laboratory Tests 05/06/20 12:08: Arterial Blood pH 7.401, Arterial Blood Partial Pressure CO2 39.0, Arterial Blood Partial Pressure O2 82.6, Arterial Blood HCO3 23.7, Arterial Blood Oxygen Saturation 96.4, Arterial Blood Base Excess -1.0, Urbano Test Positive 05/07/20 03:50: White Blood Count 14.9H, Red Blood Count 2.68L, Hemoglobin 9.0L, Hematocrit 27.9L, Mean Corpuscular Volume 104H, Mean Corpuscular Hemoglobin 33.6H, Mean Corpuscular Hemoglobin Concent 32.2, Red Cell Distribution Width 21.6H, Platelet Count 149L, Mean Platelet Volume 6.6, Neutrophils (%) (Auto) , Lymphocytes (%) (Auto) , Monocytes (%) (Auto) , Eosinophils (%) (Auto) , Basophils (%) (Auto) , Differential Total Cells Counted 100, Neutrophils % (Manual) 86H, Lymphocytes % (Manual) 5L, Monocytes % (Manual) 4, Eosinophils % (Manual) 0, Basophils % (Manual) 0, Band Neutrophils 5, Platelet Estimate Adequate, Platelet Morphology Normal, Hypochromasia 1+, Anisocytosis 2+, Macrocytosis 1+, Sodium Level 143, Potassium Level 2.5*L, Chloride Level 109H, Carbon Dioxide Level 23, Anion Gap 11, Blood Urea Nitrogen 66H, Creatinine 3.3H, Estimat Glomerular Filtration Rate 18.2, Glucose Level 100, Calcium Level 8.1L, Total Bilirubin 0.4, Aspartate Amino Transf (AST/SGOT) 20, Alanine Aminotransferase (ALT/SGPT) < 6L, Alkaline Phosphatase 93, Total Protein 6.1L, Albumin 1.2L, Globulin 4.9, Albumin/Globulin Ratio 0.2L Height (Feet): 5 Height (Inches): 7.00 Weight (Pounds): 150 Objective On 6 mcgm/min Levophed CV RR Lungs B ronchi Trach clean Abd Distended. Diminished BS. E +2 edema. Femoral Mahurkar. Ayanna Maldonado MD May 07, 2020 10:09
--- NOTE | 2020-05-07 11:31 | Critical Care Progress Note ---
Assessment/Plan Assessment/Plan IMPRESSION: Respiratory failure chronic, chronic encephalopathy, sepsis, leukocytosis, G-tube, aspiration, acute on chronic renal failure, electrolyte abnormality, failure to thrive, severe protein-calorie malnutrition, chronic CO2 retention; Hypoxemia RECOMMENDATIONS: on midodrine; feeds per gi- monitor protein levels; Supportive care. IV antibiotics and adjust and discuss. Respiratory support and vent management- taper oxygen needs group home medications. Monitor clinically. Prognosis is overall poor. monitor labs and adjust therapy; replace K renal ID cardiology; await further recommendations and stabilization medications/laboratory data/nursing notes/ICU care reviewed in detail note reviewed and edited care discussed with RN and RT ICU time spent >40 minutes Critical Care - Subjective Interval Events: care noted K replaced ICU care noted vent reviewed remains very ill ROS Limited/Unobtainable: Yes Condition: critical EKG Rhythm: Sinus Rhythm I&O: Intake and Output 05/06/20 05/07/20 19:00 07:00 Intake Total 1685.0 ml 1331.5 ml Output Total 45 ml 420 ml Balance 1640.0 ml 911.5 ml IV Total 1685.0 ml 1047.5 ml Blood Product 284 ml Output Urine Total 45 ml 20 ml Gastric Drainage Total 400 ml # Voids 1 # Bowel Movements 4 2 Critical Care - Objective Last 24 Hour Vital Signs Date Time Temp Pulse Resp B/P (MAP) Pulse Ox O2 Delivery O2 Flow Rate FiO2 05/07/20 09:00 63 33 60 05/07/20 07:00 72 31 97/56 (70) 99 05/07/20 07:00 97/54 05/07/20 06:35 70 35 60 05/07/20 06:00 103/62 05/07/20 06:00 72 36 103/62 (76) 99 05/07/20 05:30 71 34 60 05/07/20 05:00 71 27 93/54 (67) 100 05/07/20 05:00 87/53 05/07/20 04:00 98.5 70 39 95/58 (70) 99 05/07/20 04:00 75 05/07/20 04:00 Mechanical Ventilator 05/07/20 04:00 60 05/07/20 03:44 91/55 05/07/20 03:00 67 27 93/59 (70) 95 05/07/20 02:30 65 32 60 05/07/20 02:00 75 39 98/64 (75) 99 05/07/20 01:49 90 30 60 05/07/20 01:00 72 28 97/62 (74) 100 05/07/20 00:00 74 05/07/20 00:00 99.6 78 30 101/64 (76) 98 05/07/20 00:00 Mechanical Ventilator 05/06/20 23:30 75 30 60 05/06/20 22:00 81 28 104/66 (79) 100 05/06/20 21:56 86 38 60 05/06/20 21:00 87 32 105/64 (78) 98 05/06/20 20:00 60 05/06/20 20:00 82 05/06/20 20:00 99.2 86 33 101/61 (74) 99 05/06/20 20:00 Mechanical Ventilator 05/06/20 19:28 85 30 60 05/06/20 19:00 81 36 97/63 (74) 98 05/06/20 18:00 77 32 98/62 (74) 97 05/06/20 17:30 86 22 89/57 (68) 96 05/06/20 17:02 89 40 60 05/06/20 17:00 99.0 89 33 88/53 (65) 98 05/06/20 16:00 60 05/06/20 16:00 89 05/06/20 16:00 88 36 104/60 (75) 99 05/06/20 16:00 Mechanical Ventilator 05/06/20 15:30 91 36 105/64 (78) 99 05/06/20 15:08 88 39 60 05/06/20 15:00 89 34 106/62 (77) 99 05/06/20 14:30 87 30 103/65 (78) 99 05/06/20 14:00 82 32 97/60 (72) 98 05/06/20 13:30 80 34 85/52 (63) 98 05/06/20 13:16 99/58 05/06/20 13:12 90 44 60 05/06/20 13:00 88 37 94/58 (70) 99 05/06/20 12:30 88 38 99/57 (71) 99 05/06/20 12:00 99.0 89 30 94/56 (69) 99 05/06/20 12:00 60 11/7/20 12:00 89 05/06/20 12:00 Mechanical Ventilator Labs: Laboratory Tests 05/06/20 12:08: Arterial Blood pH 7.401, Arterial Blood Partial Pressure CO2 39.0, Arterial Blood Partial Pressure O2 82.6, Arterial Blood HCO3 23.7, Arterial Blood Oxygen Saturation 96.4, Arterial Blood Base Excess -1.0, U[place]ano Test Positive 05/07/20 03:50: White Blood Count 14.9H, Red Blood Count 2.68L, Hemoglobin 9.0L, Hematocrit 27.9L, Mean Corpuscular Volume 104H, Mean Corpuscular Hemoglobin 33.6H, Mean Corpuscular Hemoglobin Concent 32.2, Red Cell Distribution Width 21.6H, Platelet Count 149L, Mean Platelet Volume 6.6, Neutrophils (%) (Auto) , Lymphocytes (%) (Auto) , Monocytes (%) (Auto) , Eosinophils (%) (Auto) , Basophils (%) (Auto) , Differential Total Cells Counted 100, Neutrophils % (Manual) 86H, Lymphocytes % (Manual) 5L, Monocytes % (Manual) 4, Eosinophils % (Manual) 0, Basophils % (Manual) 0, Band Neutrophils 5, Platelet Estimate Adequate, Platelet Morphology Normal, Hypochromasia 1+, Anisocytosis 2+, Macrocytosis 1+, Sodium Level 143, Potassium Level 2.5*L, Chloride Level 109H, Carbon Dioxide Level 23, Anion Gap 11, Blood Urea Nitrogen 66H, Creatinine 3.3H, Estimat Glomerular Filtration Rate 18.2, Glucose Level 100, Calcium Level 8.1L, Total Bilirubin 0.4, Aspartate Amino Transf (AST/SGOT) 20, Alanine Aminotransferase (ALT/SGPT) < 6L, Alkaline Phosphatase 93, Total Protein 6.1L, Albumin 1.2L, Globulin 4.9, Albumin/Globulin Ratio 0.2L Objective: WDWN NAD reduced breath sounds bilaterally noted rhonchi and some secretions from trach stoma site [id number] without MRG NABS nontender GT no CCE significant contractures nonfocal obtunded trach in place Vent skin noted Micro: Microbiology Date/Time Source Procedure Growth Status 05/06/20 17:30 Stool Clostridium difficile Toxin Assay - Final Complete Accucheck: 95 Mansoor Martinez MD May 07, 2020 11:31
[2020-05-07] MEDS: Colistin for inhalation INH SCH ×2 (11:37→22:45)
--- NOTE | 2020-05-07 11:51 | Infectious Diseases Prog Note ---
"Assessment/Plan Assessment/Plan antibiotics : linezolid, inhaled colistin A 1. klebsiella pneumonia 2. MRSA | coag neg staph sepsis 3. renal failure 4. respiratory failure 5. seizures 6. CVA 7. CHF 8. shock P 1. continue linezolid, inhaled colistin 2. will follow up cultures Subjective ROS Limited/Unobtainable: Yes Allergies: Coded Allergies: No Known Allergies (Unverified , 02/23/12) Objective Last 24 Hour Vital Signs Date Time Temp Pulse Resp B/P (MAP) Pulse Ox O2 Delivery O2 Flow Rate FiO2 05/07/20 11:30 70 34 86/57 (67) 99 05/07/20 11:00 66 37 93/59 (70) 97 05/07/20 10:30 67 33 89/58 (68) 96 05/07/20 10:00 69 34 95/61 (72) 96 05/07/20 09:30 73 29 89/62 (71) 99 05/07/20 09:00 63 33 60 05/07/20 09:00 73 34 95/56 (69) 99 05/07/20 08:30 72 29 100/57 (71) 99 05/07/20 08:00 72 05/07/20 08:00 60 05/07/20 08:00 98.0 72 30 97/59 (72) 99 05/07/20 08:00 Mechanical Ventilator 05/07/20 07:00 72 31 97/56 (70) 99 05/07/20 07:00 97/54 05/07/20 06:35 70 35 60 05/07/20 06:00 103/62 05/07/20 06:00 72 36 103/62 (76) 99 05/07/20 05:30 71 34 60 05/07/20 05:00 71 27 93/54 (67) 100 05/07/20 05:00 87/53 05/07/20 04:00 98.5 70 39 95/58 (70) 99 05/07/20 04:00 75 05/07/20 04:00 Mechanical Ventilator 05/07/20 04:00 60 05/07/20 03:44 91/55 05/07/20 03:00 67 27 93/59 (70) 95 05/07/20 02:30 65 32 60 05/07/20 02:00 75 39 98/64 (75) 99 05/07/20 01:49 90 30 60 05/07/20 01:00 72 28 97/62 (74) 100 05/07/20 00:00 74 05/07/20 00:00 99.6 78 30 101/64 (76) 98 05/07/20 00:00 Mechanical Ventilator 05/06/20 23:30 75 30 60 05/06/20 22:00 81 28 104/66 (79) 100 05/06/20 21:56 86 38 60 05/06/20 21:00 87 32 105/64 (78) 98 05/06/20 20:00 60 05/06/20 20:00 82 05/06/20 20:00 99.2 86 33 101/61 (74) 99 05/06/20 20:00 Mechanical Ventilator 05/06/20 19:28 85 30 60 05/06/20 19:00 81 36 97/63 (74) 98 05/06/20 18:00 77 32 98/62 (74) 97 05/06/20 17:30 86 22 89/57 (68) 96 05/06/20 17:02 89 40 60 05/06/20 17:00 99.0 89 33 88/53 (65) 98 05/06/20 16:00 60 05/06/20 16:00 89 05/06/20 16:00 88 36 104/60 (75) 99 05/06/20 16:00 Mechanical Ventilator 05/06/20 15:30 91 36 105/64 (78) 99 05/06/20 15:08 88 39 60 05/06/20 15:00 89 34 106/62 (77) 99 05/06/20 14:30 87 30 103/65 (78) 99 05/06/20 14:00 82 32 97/60 (72) 98 05/06/20 13:30 80 34 85/52 (63) 98 05/06/20 13:16 99/58 05/06/20 13:12 90 44 60 05/06/20 13:00 88 37 94/58 (70) 99 05/06/20 12:30 88 38 99/57 (71) 99 05/06/20 12:00 99.0 89 30 94/56 (69) 99 05/06/20 12:00 60 05/06/20 12:00 89 05/06/20 12:00 Mechanical Ventilator Height (Feet): 5 Height (Inches): 7.00 Weight (Pounds): 150 HEENT: status post trach Respiratory/Chest: lungs clear Cardiovascular: normal rate, regular rhythm, no gallop/murmur Abdomen: soft, non tender, other - GT Extremities: no edema, other - + edema bilaterally, right IJ catheter Microbiology Date/Time Source Procedure Growth Status 05/06/20 17:30 Stool Clostridium difficile Toxin Assay - Final Complete Laboratory Tests Test 05/06/20 12:08 05/07/20 03:50 Arterial Blood pH 7.401 (7.350-7.450) Arterial Blood Partial Pressure CO2 39.0 mmHg (35.0-45.0) Arterial Blood Partial Pressure O2 82.6 mmHg (75.0-100.0) Arterial Blood HCO3 23.7 mmol/L (22.0-26.0) Arterial Blood Oxygen Saturation 96.4 % (95-100) Arterial Blood Base Excess -1.0 (-2-2) Urbano Test Positive White Blood Count 14.9 K/UL (4.8-10.8) H Red Blood Count 2.68 M/UL (4.70-6.10) L Hemoglobin 9.0 G/DL (14.2-18.0) L Hematocrit 27.9 % (42.0-52.0) L Mean Corpuscular Volume 104 FL (80-99) H Mean Corpuscular Hemoglobin 33.6 PG (27.0-31.0) H Mean Corpuscular Hemoglobin Concent 32.2 G/DL (32.0-36.0) Red Cell Distribution Width 21.6 % (11.6-14.8) H Platelet Count 149 K/UL (150-450) L Mean Platelet Volume 6.6 FL (6.5-10.1) Neutrophils (%) (Auto) % (45.0-75.0) Lymphocytes (%) (Auto) % (20.0-45.0) Monocytes (%) (Auto) % (1.0-10.0) Eosinophils (%) (Auto) % (0.0-3.0) Basophils (%) (Auto) % (0.0-2.0) Differential Total Cells Counted 100 Neutrophils % (Manual) 86 % (45-75) H Lymphocytes % (Manual) 5 % (20-45) L Monocytes % (Manual) 4 % (1-10) Eosinophils % (Manual) 0 % (0-3) Basophils % (Manual) 0 % (0-2) Band Neutrophils 5 % (0-8) Platelet Estimate Adequate Platelet Morphology Normal Hypochromasia 1+ Anisocytosis 2+ Macrocytosis 1+ Sodium Level 143 MMOL/L (136-145) Potassium Level 2.5 MMOL/L (3.5-5.1) *L Chloride Level 109 MMOL/L (98-107) H Carbon Dioxide Level 23 MMOL/L (21-32) Anion Gap 11 mmol/L (5-15) Blood Urea Nitrogen 66 mg/dL (7-18) H Creatinine 3.3 MG/DL (0.55-1.30) H Estimat Glomerular Filtration Rate 18.2 mL/min (>60) Glucose Level 100 MG/DL (74-106) Calcium Level 8.1 MG/DL (8.5-10.1) L Total Bilirubin 0.4 MG/DL (0.2-1.0) Aspartate Amino Transf (AST/SGOT) 20 U/L (15-37) Alanine Aminotransferase (ALT/SGPT) < 6 U/L (12-78) L Alkaline Phosphatase 93 U/L (46-116) Total Protein 6.1 G/DL (6.4-8.2) L Albumin 1.2 G/DL (3.4-5.0) L Globulin 4.9 g/dL Albumin/Globulin Ratio 0.2 (1.0-2.7) L Current Medications Medications (Trade) Dose Ordered Sig/Lanny Route PRN Reason Start Time Stop Time Status Last Admin Dose Admin Acetaminophen (Tylenol) 650 mg Q4H PRN NG fever pain 05/03/20 21:30 06/02/20 21:29 Chlorhexidine Gluconate (Kayla-Hex 2%) 1 applic DAILY@1999 TOPIC 05/04/20 20:00 08/02/20 19:59 05/06/20 20:27 Clonidine HCl (Catapres Tab) 0.1 mg Q4H PRN GT SBP above 150 05/03/20 21:30 08/01/20 21:29 Colistimethate Sodium (Colistin *inhalation use only*) 75 mg Q12HR@10,22 INH 05/06/20 22:00 05/13/20 21:59 05/07/20 11:37 Dextrose/Sodium Chloride 1,000 ml @ 50 mls/hr Q20H IV 05/06/20 11:00 06/05/20 10:59 05/07/20 06:44 Epoetin Asaf (Epoetin Asaf-EPBX(NON ESRD)) 10,000 unit FRI- SUBQ 05/05/20 21:00 08/03/20 20:59 05/05/20 21:39 Heparin Sodium (Porcine) (Heparin Sod 1000 units/ml 10ml) 2,000 unit ONCE IV 05/08/20 10:15 05/08/20 11:00 Heparin Sodium (Porcine) (Heparin) 1,000 unit POSTHD INJ 05/08/20 10:15 06/22/20 10:14 Levetiracetam 100 ml @ 400 mls/hr Q12HR IVPB 05/04/20 21:00 08/02/20 20:59 05/07/20 09:39 Levothyroxine Sodium (Synthroid) 100 mcg DAILY IV 05/05/20 09:00 06/03/20 10:59 05/06/20 08:46 Linezolid 300 ml @ 300 mls/hr Q12HR IVPB 05/05/20 13:00 05/12/20 12:59 05/07/20 09:40 Lorazepam (Ativan 2mg/ml 1ml) 1 mg Q4H PRN IV For Seizures 05/07/20 09:15 05/14/20 09:14 Midodrine (Pro-Amatine) 5 mg TID ORAL 05/05/20 09:00 08/03/20 08:59 05/07/20 09:40 Norepinephrine Bitartrate 4 mg/ Dextrose 250 ml @ 0 mls/hr Q24H IV 05/07/20 03:30 05/10/20 03:29 05/07/20 03:44 Pantoprazole (Protonix) 40 mg EVERY 12 HOURS IVP 05/04/20 21:00 06/03/20 20:59 05/07/20 09:39 Potassium Chloride 100 ml @ 100 mls/hr Q1HR IVPB 05/07/20 09:00 05/07/20 11:59 05/07/20 11:13 Sodium Chloride 1,000 ml @ 500 mls/hr Q2H PRN IVLG sbp<90 during hd 05/08/20 10:15 06/07/20 10:14 Isaak Hair MD May 07, 2020 11:51"
--- NOTE | 2020-05-07 14:13 | Cardiology Progress Note ---
Subjective DATE OF SERVICE: May 07, 2020 Remains Critical & Guarded On vent support Still requiring pressor support - on norepinephrine with dose tapered overnite. IV thyroid replacement for TSH of 49 - but was unavailable today from pharmacy. Has coffee grounds from GTube; req'd 2 units of PRBC's 05/05. Renal function remains impaired with poor urine output; patient had HD 05/05.. Objective Last 24 Hour Vital Signs Date Time Temp Pulse Resp B/P (MAP) Pulse Ox O2 Delivery O2 Flow Rate FiO2 05/07/20 12:30 67 30 96/61 (73) 98 05/07/20 12:00 97.9 60 27 93/60 (71) 100 05/07/20 12:00 60 05/07/20 12:00 Mechanical Ventilator 05/07/20 11:30 70 34 86/57 (67) 99 05/07/20 11:00 66 37 93/59 (70) 97 05/07/20 10:30 67 33 89/58 (68) 96 05/07/20 10:00 69 34 95/61 (72) 96 05/07/20 09:30 73 29 89/62 (71) 99 05/07/20 09:00 63 33 60 05/07/20 09:00 73 34 95/56 (69) 99 05/07/20 08:30 72 29 100/57 (71) 99 05/07/20 08:00 72 05/07/20 08:00 60 05/07/20 08:00 98.0 72 30 97/59 (72) 99 05/07/20 08:00 Mechanical Ventilator 05/07/20 07:00 72 31 97/56 (70) 99 05/07/20 07:00 97/54 05/07/20 06:35 70 35 60 05/07/20 06:00 103/62 05/07/20 06:00 72 36 103/62 (76) 99 05/07/20 05:30 71 34 60 05/07/20 05:00 71 27 93/54 (67) 100 05/07/20 05:00 87/53 05/07/20 04:00 98.5 70 39 95/58 (70) 99 05/07/20 04:00 75 05/07/20 04:00 Mechanical Ventilator 05/07/20 04:00 60 05/07/20 03:44 91/55 05/07/20 03:00 67 27 93/59 (70) 95 05/07/20 02:30 65 32 60 05/07/20 02:00 75 39 98/64 (75) 99 05/07/20 01:49 90 30 60 05/07/20 01:00 72 28 97/62 (74) 100 05/07/20 00:00 74 05/07/20 00:00 99.6 78 30 101/64 (76) 98 05/07/20 00:00 Mechanical Ventilator 05/06/20 23:30 75 30 60 05/06/20 22:00 81 28 104/66 (79) 100 05/06/20 21:56 86 38 60 05/06/20 21:00 87 32 105/64 (78) 98 05/06/20 20:00 60 05/06/20 20:00 82 05/06/20 20:00 99.2 86 33 101/61 (74) 99 05/06/20 20:00 Mechanical Ventilator 05/06/20 19:28 85 30 60 05/06/20 19:00 81 36 97/63 (74) 98 05/06/20 18:00 77 32 98/62 (74) 97 05/06/20 17:30 86 22 89/57 (68) 96 05/06/20 17:02 89 40 60 05/06/20 17:00 99.0 89 33 88/53 (65) 98 05/06/20 16:00 60 05/06/20 16:00 89 05/06/20 16:00 88 36 104/60 (75) 99 05/06/20 16:00 Mechanical Ventilator 05/06/20 15:30 91 36 105/64 (78) 99 05/06/20 15:08 88 39 60 05/06/20 15:00 89 34 106/62 (77) 99 05/06/20 14:30 87 30 103/65 (78) 99 ROS: no change from my admit note. HEENT: Thick Trach secretions RHYTHM: ST LUNGS: bilateral rhonchi CARDIAC: normal rate, regular rhythm, normal S1 and S2 ABDOMEN: normal bowel sounds, soft, no organomegaly, G-Tube intact EXTREMITIES: trace edema Laboratory Tests Test 05/07/20 03:50 White Blood Count 14.9 K/UL (4.8-10.8) H Red Blood Count 2.68 M/UL (4.70-6.10) L Hemoglobin 9.0 G/DL (14.2-18.0) L Hematocrit 27.9 % (42.0-52.0) L Mean Corpuscular Volume 104 FL (80-99) H Mean Corpuscular Hemoglobin 33.6 PG (27.0-31.0) H Mean Corpuscular Hemoglobin Concent 32.2 G/DL (32.0-36.0) Red Cell Distribution Width 21.6 % (11.6-14.8) H Platelet Count 149 K/UL (150-450) L Mean Platelet Volume 6.6 FL (6.5-10.1) Neutrophils (%) (Auto) % (45.0-75.0) Lymphocytes (%) (Auto) % (20.0-45.0) Monocytes (%) (Auto) % (1.0-10.0) Eosinophils (%) (Auto) % (0.0-3.0) Basophils (%) (Auto) % (0.0-2.0) Differential Total Cells Counted 100 Neutrophils % (Manual) 86 % (45-75) H Lymphocytes % (Manual) 5 % (20-45) L Monocytes % (Manual) 4 % (1-10) Eosinophils % (Manual) 0 % (0-3) Basophils % (Manual) 0 % (0-2) Band Neutrophils 5 % (0-8) Platelet Estimate Adequate Platelet Morphology Normal Hypochromasia 1+ Anisocytosis 2+ Macrocytosis 1+ Sodium Level 143 MMOL/L (136-145) Potassium Level 2.5 MMOL/L (3.5-5.1) *L Chloride Level 109 MMOL/L (98-107) H Carbon Dioxide Level 23 MMOL/L (21-32) Anion Gap 11 mmol/L (5-15) Blood Urea Nitrogen 66 mg/dL (7-18) H Creatinine 3.3 MG/DL (0.55-1.30) H Estimat Glomerular Filtration Rate 18.2 mL/min (>60) Glucose Level 100 MG/DL (74-106) Calcium Level 8.1 MG/DL (8.5-10.1) L Total Bilirubin 0.4 MG/DL (0.2-1.0) Aspartate Amino Transf (AST/SGOT) 20 U/L (15-37) Alanine Aminotransferase (ALT/SGPT) < 6 U/L (12-78) L Alkaline Phosphatase 93 U/L (46-116) Total Protein 6.1 G/DL (6.4-8.2) L Albumin 1.2 G/DL (3.4-5.0) L Globulin 4.9 g/dL Albumin/Globulin Ratio 0.2 (1.0-2.7) L Microbiology Date/Time Source Procedure Growth Status 05/06/20 17:30 Stool Clostridium difficile Toxin Assay - Final Complete Assessment/Plan Assessment/Plan Shock Sepsis Leukocytosis GI bleeding Anemia Hypokalemia Ventilator dep respiratory failure Severe protein calorie malnutrition Ac/chronic diastolic CHF Acute renal failure now on HD. Pressor support with taper as able Vent support Antimicrobials IV thyroid replacement IVF; cautious K+ suppl with renal failure. Consider PRBC transfusion for recurrent bleeding; holding all anti-plt and anti- coagulants. DVT prophylaxis Add'l dialysis per renal Defer EGD until off pressors Franko Pineda MD May 07, 2020 14:13
--- NOTE | 2020-05-07 15:10 | Cardiology Report ---
APPROVED REPORT EKG Measurement Heart [id number] DC [id number] <Conclusion> Sinus tachycardia Possible Left atrial enlargement Left axis deviation Nonspecific ST and T wave abnormality Abnormal ECG
--- NOTE | 2020-05-07 17:43 | General Progress Note ---
Subjective Allergies: Coded Allergies: No Known Allergies (Unverified , 02/23/12) Subjective Above noted seen in ICU GT aspirate bloody cardiology noted d/w DPOA - he was unable to see patient today, he will see tomorrow and decide on level of care Objective Last 24 Hour Vital Signs Date Time Temp Pulse Resp B/P (MAP) Pulse Ox O2 Delivery O2 Flow Rate FiO2 05/07/20 17:00 97.9 77 38 98/57 (71) 97 05/07/20 17:00 98/57 05/07/20 16:00 81 05/07/20 16:00 60 05/07/20 16:00 102/62 05/07/20 16:00 77 37 102/62 (75) 98 05/07/20 16:00 Mechanical Ventilator 05/07/20 15:30 79 36 107/63 (78) 97 05/07/20 15:25 78 38 60 05/07/20 15:00 72 33 97/54 (68) 99 05/07/20 15:00 97/54 05/07/20 14:30 79 34 91/58 (69) 99 05/07/20 14:00 98/62 05/07/20 14:00 77 29 98/62 (74) 99 05/07/20 13:40 69 35 60 05/07/20 13:30 67 29 98/72 (81) 99 05/07/20 13:00 67 29 96/63 (74) 99 05/07/20 13:00 84/61 05/07/20 12:30 67 30 96/61 (73) 98 05/07/20 12:00 68 05/07/20 12:00 90/63 05/07/20 12:00 97.9 60 27 93/60 (71) 100 05/07/20 12:00 60 05/07/20 12:00 Mechanical Ventilator 05/07/20 11:30 70 34 86/57 (67) 99 05/07/20 11:00 91/55 05/07/20 11:00 77 32 60 05/07/20 11:00 66 37 93/59 (70) 97 05/07/20 10:30 67 33 89/58 (68) 96 05/07/20 10:00 69 34 95/61 (72) 96 05/07/20 10:00 96/63 05/07/20 09:30 73 29 89/62 (71) 99 05/07/20 09:00 63 33 60 05/07/20 09:00 95/58 05/07/20 09:00 73 34 95/56 (69) 99 05/07/20 08:30 72 29 100/57 (71) 99 05/07/20 08:00 72 05/07/20 08:00 96/56 05/07/20 08:00 60 05/07/20 08:00 98.0 72 30 97/59 (72) 99 05/07/20 08:00 Mechanical Ventilator 05/07/20 07:00 72 31 97/56 (70) 99 05/07/20 07:00 97/54 05/07/20 06:35 70 35 60 05/07/20 06:00 103/62 05/07/20 06:00 72 36 103/62 (76) 99 05/07/20 05:30 71 34 60 05/07/20 05:00 71 27 93/54 (67) 100 05/07/20 05:00 87/53 05/07/20 04:00 98.5 70 39 95/58 (70) 99 05/07/20 04:00 75 05/07/20 04:00 Mechanical Ventilator 05/07/20 04:00 60 05/07/20 03:44 91/55 05/07/20 03:00 67 27 93/59 (70) 95 05/07/20 02:30 65 32 60 05/07/20 02:00 75 39 98/64 (75) 99 05/07/20 01:49 90 30 60 05/07/20 01:00 72 28 97/62 (74) 100 05/07/20 00:00 74 05/07/20 00:00 99.6 78 30 101/64 (76) 98 05/07/20 00:00 Mechanical Ventilator 05/06/20 23:30 75 30 60 05/06/20 22:00 81 28 104/66 (79) 100 05/06/20 21:56 86 38 60 05/06/20 21:00 87 32 105/64 (78) 98 05/06/20 20:00 60 05/06/20 20:00 82 05/06/20 20:00 99.2 86 33 101/61 (74) 99 05/06/20 20:00 Mechanical Ventilator 05/06/20 19:28 85 30 60 05/06/20 19:00 81 36 97/63 (74) 98 05/06/20 18:00 77 32 98/62 (74) 97 Intake and Output 05/06/20 05/07/20 19:00 07:00 Intake Total 1685.0 ml 1331.5 ml Output Total 45 ml 420 ml Balance 1640.0 ml 911.5 ml IV Total 1685.0 ml 1047.5 ml Blood Product 284 ml Output Urine Total 45 ml 20 ml Gastric Drainage Total 400 ml # Voids 1 # Bowel Movements 4 2 Laboratory Tests 05/07/20 03:50: White Blood Count 14.9H, Red Blood Count 2.68L, Hemoglobin 9.0L, Hematocrit 27.9L, Mean Corpuscular Volume 104H, Mean Corpuscular Hemoglobin 33.6H, Mean Corpuscular Hemoglobin Concent 32.2, Red Cell Distribution Width 21.6H, Platelet Count 149L, Mean Platelet Volume 6.6, Neutrophils (%) (Auto) , Lymphocytes (%) (Auto) , Monocytes (%) (Auto) , Eosinophils (%) (Auto) , Basophils (%) (Auto) , Differential Total Cells Counted 100, Neutrophils % (Manual) 86H, Lymphocytes % (Manual) 5L, Monocytes % (Manual) 4, Eosinophils % (Manual) 0, Basophils % (Manual) 0, Band Neutrophils 5, Platelet Estimate Adequate, Platelet Morphology Normal, Hypochromasia 1+, Anisocytosis 2+, Macrocytosis 1+, Sodium Level 143, Potassium Level 2.5*L, Chloride Level 109H, Carbon Dioxide Level 23, Anion Gap 11, Blood Urea Nitrogen 66H, Creatinine 3.3H, Estimat Glomerular Filtration Rate 18.2, Glucose Level 100, Calcium Level 8.1L, Total Bilirubin 0.4, Aspartate Amino Transf (AST/SGOT) 20, Alanine Aminotransferase (ALT/SGPT) < 6L, Alkaline Phosphatase 93, Total Protein 6.1L, Albumin 1.2L, Globulin 4.9, Albumin/Globulin Ratio 0.2L Height (Feet): 5 Height (Inches): 7.00 Weight (Pounds): 150 Objective NCAT (+) trach Coarse BS RR abd soft, (+) GT (++) contracted Assessment/Plan Status: stable, not improved Assessment/Plan: Assessment - Upper GI bleed - GT output now dark red - hypotensive , on pressors - h/o gastric ulcer - anemia - renal failure - resp failure - contractures - Poor prognosis Recommendations - Continue GT ---> LIS - Pressors / supportive care - monitor H&H - IV PPI - transfuse PRN - await DPOA visit and decision - EGD if DPOA wishes and once medically stable Clive Kuo MD May 07, 2020 17:43
--- NOTE | 2020-05-07 19:12 | Surgery Progress Note ---
Surgery Progress Note Subjective Procedure Performed Left femoral temporary hemodialysis catheter insertion Additional Comments labs noted ill appearing on support weaned pressors Objective Last 24 Hour Vital Signs Date Time Temp Pulse Resp B/P (MAP) Pulse Ox O2 Delivery O2 Flow Rate FiO2 05/07/20 18:00 101/66 05/07/20 18:00 81 34 101/66 (78) 97 05/07/20 17:00 97.9 77 38 98/57 (71) 97 05/07/20 17:00 98/57 05/07/20 16:00 81 05/07/20 16:00 60 05/07/20 16:00 102/62 05/07/20 16:00 77 37 102/62 (75) 98 05/07/20 16:00 Mechanical Ventilator 05/07/20 15:30 79 36 107/63 (78) 97 05/07/20 15:25 78 38 60 05/07/20 15:00 72 33 97/54 (68) 99 05/07/20 15:00 97/54 05/07/20 14:30 79 34 91/58 (69) 99 05/07/20 14:00 98/62 05/07/20 14:00 77 29 98/62 (74) 99 05/07/20 13:40 69 35 60 05/07/20 13:30 67 29 98/72 (81) 99 05/07/20 13:00 67 29 96/63 (74) 99 05/07/20 13:00 84/61 05/07/20 12:30 67 30 96/61 (73) 98 05/07/20 12:00 68 05/07/20 12:00 90/63 05/07/20 12:00 97.9 60 27 93/60 (71) 100 05/07/20 12:00 60 05/07/20 12:00 Mechanical Ventilator 05/07/20 11:30 70 34 86/57 (67) 99 05/07/20 11:00 91/55 05/07/20 11:00 77 32 60 05/07/20 11:00 66 37 93/59 (70) 97 05/07/20 10:30 67 33 89/58 (68) 96 05/07/20 10:00 69 34 95/61 (72) 96 05/07/20 10:00 96/63 05/07/20 09:30 73 29 89/62 (71) 99 05/07/20 09:00 63 33 60 05/07/20 09:00 95/58 05/07/20 09:00 73 34 95/56 (69) 99 05/07/20 08:30 72 29 100/57 (71) 99 05/07/20 08:00 72 05/07/20 08:00 96/56 05/07/20 08:00 60 05/07/20 08:00 98.0 72 30 97/59 (72) 99 05/07/20 08:00 Mechanical Ventilator 05/07/20 07:00 72 31 97/56 (70) 99 05/07/20 07:00 97/54 05/07/20 06:35 70 35 60 05/07/20 06:00 103/62 05/07/20 06:00 72 36 103/62 (76) 99 05/07/20 05:30 71 34 60 05/07/20 05:00 71 27 93/54 (67) 100 05/07/20 05:00 87/53 05/07/20 04:00 98.5 70 39 95/58 (70) 99 05/07/20 04:00 75 05/07/20 04:00 Mechanical Ventilator 05/07/20 04:00 60 05/07/20 03:44 91/55 05/07/20 03:00 67 27 93/59 (70) 95 05/07/20 02:30 65 32 60 05/07/20 02:00 75 39 98/64 (75) 99 05/07/20 01:49 90 30 60 05/07/20 01:00 72 28 97/62 (74) 100 05/07/20 00:00 74 05/07/20 00:00 99.6 78 30 101/64 (76) 98 05/07/20 00:00 Mechanical Ventilator 05/06/20 23:30 75 30 60 05/06/20 22:00 81 28 104/66 (79) 100 05/06/20 21:56 86 38 60 05/06/20 21:00 87 32 105/64 (78) 98 05/06/20 20:00 60 05/06/20 20:00 82 05/06/20 20:00 99.2 86 33 101/61 (74) 99 05/06/20 20:00 Mechanical Ventilator 05/06/20 19:28 85 30 60 I&O Intake and Output 05/06/20 05/07/20 19:00 07:00 Intake Total 1685.0 ml 1331.5 ml Output Total 45 ml 420 ml Balance 1640.0 ml 911.5 ml IV Total 1685.0 ml 1047.5 ml Blood Product 284 ml Output Urine Total 45 ml 20 ml Gastric Drainage Total 400 ml # Voids 1 # Bowel Movements 4 2 Dressing: saturated Cardiovascular: RSR Respiratory: decreased breath sounds Abdomen: non-tender, present bowel sounds, other Extremities: no edema, no tenderness, no cyanosis Laboratory Tests Test 05/07/20 03:50 White Blood Count 14.9 K/UL (4.8-10.8) H Red Blood Count 2.68 M/UL (4.70-6.10) L Hemoglobin 9.0 G/DL (14.2-18.0) L Hematocrit 27.9 % (42.0-52.0) L Mean Corpuscular Volume 104 FL (80-99) H Mean Corpuscular Hemoglobin 33.6 PG (27.0-31.0) H Mean Corpuscular Hemoglobin Concent 32.2 G/DL (32.0-36.0) Red Cell Distribution Width 21.6 % (11.6-14.8) H Platelet Count 149 K/UL (150-450) L Mean Platelet Volume 6.6 FL (6.5-10.1) Neutrophils (%) (Auto) % (45.0-75.0) Lymphocytes (%) (Auto) % (20.0-45.0) Monocytes (%) (Auto) % (1.0-10.0) Eosinophils (%) (Auto) % (0.0-3.0) Basophils (%) (Auto) % (0.0-2.0) Differential Total Cells Counted 100 Neutrophils % (Manual) 86 % (45-75) H Lymphocytes % (Manual) 5 % (20-45) L Monocytes % (Manual) 4 % (1-10) Eosinophils % (Manual) 0 % (0-3) Basophils % (Manual) 0 % (0-2) Band Neutrophils 5 % (0-8) Platelet Estimate Adequate Platelet Morphology Normal Hypochromasia 1+ Anisocytosis 2+ Macrocytosis 1+ Sodium Level 143 MMOL/L (136-145) Potassium Level 2.5 MMOL/L (3.5-5.1) *L Chloride Level 109 MMOL/L (98-107) H Carbon Dioxide Level 23 MMOL/L (21-32) Anion Gap 11 mmol/L (5-15) Blood Urea Nitrogen 66 mg/dL (7-18) H Creatinine 3.3 MG/DL (0.55-1.30) H Estimat Glomerular Filtration Rate 18.2 mL/min (>60) Glucose Level 100 MG/DL (74-106) Calcium Level 8.1 MG/DL (8.5-10.1) L Total Bilirubin 0.4 MG/DL (0.2-1.0) Aspartate Amino Transf (AST/SGOT) 20 U/L (15-37) Alanine Aminotransferase (ALT/SGPT) < 6 U/L (12-78) L Alkaline Phosphatase 93 U/L (46-116) Total Protein 6.1 G/DL (6.4-8.2) L Albumin 1.2 G/DL (3.4-5.0) L Globulin 4.9 g/dL Albumin/Globulin Ratio 0.2 (1.0-2.7) L Plan Problems: (1) Dehydration (2) Ventilator associated pneumonia (3) AUDREY (acute kidney injury) (4) Hypokalemia (5) Hyperkalemia (6) Hypomagnesemia (7) Anemia (8) Decubitus skin ulcer Assessment & Plan: Pt presented on admission with gross contractures, Multiple Pressure Injuries, Tracheostomy. Skin Assessed under tracheal collar and no evidence of skin breakdown noted. Tear noted to urinary meatus- no exudate noted. Scrotum is erythematous with scattered satellite lesions. Large ulcer noted to R scrotal sac (L)4cm x (W)4.6cm. Base of wound is erythematous ,moist with Biofilm. Sacral DTPI with clusters of small islands of slough with surrounding maroon and indurated areas (L)8cm x (W)12cm.Mild Odor noted. Partial thickness Pressure Injury Upper/outer R buttocks(L)1.8cm x (W)1.3cm. Base of wound is moist and viable. Edges adherent to base of wound. Surrounding non-blanching erythema with scattered areas of shearing noted. Partial thickness Pressure Inferior lower R buttocks.(L)0.8cm x (W)1.2cm. Base of wound is moist and viable. Edges adherent to base of wound. Surrounding non- blanching erythema with scattered shearing noted extending into R ischial tuberosity. Clusters of small hyperpigmentation noted to L trochanteric and L ischial tuberosity. R Heel is fluctuant with scattered dry eschar and surrounding Non-Blanchable erythema.(L)6.5cm x (W)8cm. DTPI distal/lateral R foot(L)3cm x (W)3cm. Base of wound is maroon and fluctuant. dry eschar noted to tip of R 1st metatarsal with surrounding non-blanchable erythema extending dorsally and laterally of metatarsal(L)5cm x (W)1.3cm Non-Blanchable erythema that is fluctuant at base noted to dorso/lateral L 5th metatarsal(L)0.6cm x (W)0.3cm. L Heel is boggy with non-blanchable erythema laterally. Hyperpigmentation from previous wound noted at L heel. Tx.Plan: Cleanse Sacral wound with Saline. Apply TheraHoney to slough. Apply Moisture Barrier Paste periwound. Cover with Optifoam drsg. Change daily and prn. Apply Moisture Barrier Paste to Wounds R upper and lower R Buttocks. Cover each wound with Optifoam drsg. Change every 3 days and prn. Apply Zinc Oxide Paste to Scrotal Wounds TID and prn. Apply Betadine to wounds R heel and R foot . Cover with ABD Pads and wrap with Kerlix every 3 days and prn. Apply Betadine to L foot. Cover with ABD Pads and wrap with Kerlix every 3 days and prn. Cover Bony Prominences as needed with Optifoam drsgs. Reposition at least every 2hours or as tolerated. Off-load heels with pillow. APM/VIRAL Mattress DAILY ESTIMATED NEEDS: Needs based on Critical care, 63kg 22-30 kcals/kg 2704-8093 total kcals 1.25-2 g protein/kg 79-126 g total protein 25-30 mL/kg 9696-5175 total fluid mLs NUTRITION DIAGNOSIS: Swallowing difficulty r/ respiratory status as evidenced by pt is vent dep via trach, PEG dep. CURRENT TF:NPO ENTERAL NUTRITION RECOMMENDATIONS: Vital AF 1.2 @ 55ml/hr x 22 hrs to provide 1210ml, 1452kcal, 91g prot, 981ml free water - As medically able, rec Vital 1.2. Start @15ml/hr for 6 hrs, advance as tolerated 10ml/hr q4-6 hrs to goal. - Hold 1 hr before and after synthroid. - Flush per , HOB over 30 degrees - Feed w/ hemodynamic stability. ADDITIONAL RECOMMENDATIONS: 1) Obtain calibrated bed scale wts-> recent adm wt was 63kg vs 68kg today 2) Monitor renal labs and lytes, need for renal formula 3) Rec WC eval -> currently NPO 4) Monitor hemodynamic stability, ability to feed (9) SOB (shortness of breath) (10) Hypernatremia (11) Aspiration pneumonia (12) Renal insufficiency (13) Respiratory insufficiency (14) Respiratory failure (15) Malnutrition (16) Sepsis Assessment & Plan: Leukocytosis, lactic acidosis, abnormal labs. In ICU resuscitation imaging noted micro noted. 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
[2020-05-07] MEDS: Dyna-Hex 2% Top Sol 2oz TOPIC SCH (20:16)
[2020-05-08] VITALS (68 sets, daily range): BP systolic 78–127; BP diastolic 27–67
[2020-05-08] MEDS: D5NS 1,000 ML IV SCH ×2 (02:48→22:37)
[2020-05-08] MEDS: Norepinephrine 4mg/NS Premix 250 ML IV SCH ×2 (03:43→15:01)
[2020-05-08 07:07] LABS: HEMATOCRIT 28.3 % (42.0-52.0); HEMOGLOBIN 9.5 G/DL (14.2-18.0); MEAN CORPUSCULAR VOLUME 104 FL (80-99); PLATELET COUNT 150 K/UL (150-450); RED BLOOD COUNT 2.73 M/UL (4.70-6.10); WHITE BLOOD COUNT 21.3 K/UL (4.8-10.8)
[2020-05-08 07:32] LABS: ALBUMIN 1.2 G/DL (3.4-5.0); ALBUMIN/GLOBULIN RATIO 0.2 (1.0-2.7); BILIRUBIN,TOTAL 0.3 MG/DL (0.2-1.0); CALCIUM 7.7 MG/DL (8.5-10.1); CREATININE 3.6 MG/DL (0.55-1.30)
[2020-05-08 07:35] LABS: POTASSIUM 2.2 MMOL/L (3.5-5.1)
--- NOTE | 2020-05-08 08:05 | Critical Care Progress Note ---
Assessment/Plan Assessment/Plan IMPRESSION: Respiratory failure chronic, chronic encephalopathy, sepsis, leukocytosis, G-tube, aspiration, acute on chronic renal failure, electrolyte abnormality, failure to thrive, severe protein-calorie malnutrition, chronic CO2 retention; Hypoxemia RECOMMENDATIONS: on midodrine and pressors; feeds per gi- monitor protein levels; Supportive care. IV antibiotics and adjust and discuss. Respiratory support and vent management- taper oxygen needs prison medications. Monitor clinically. Prognosis is overall poor. monitor labs and adjust therapy; replace K IV renal ID cardiology; await further recommendations and stabilization medications/laboratory data/nursing notes/ICU care reviewed in detail note reviewed and edited care discussed with RN and RT ICU time spent >40 minutes Critical Care - Subjective Interval Events: wbc worse still off feeds K critical less congested ROS Limited/Unobtainable: Yes Condition: critical EKG Rhythm: Sinus Rhythm I&O: Intake and Output 05/07/20 05/08/20 19:00 07:00 Intake Total 1575.00 ml 1425.25 ml Output Total 40 ml 150 ml Balance 1535.00 ml 1275.25 ml IV Total 1575.00 ml 1425.25 ml Output Urine Total 40 ml 50 ml Gastric Drainage Total 100 ml # Bowel Movements 4 4 Critical Care - Objective Last 24 Hour Vital Signs Date Time Temp Pulse Resp B/P (MAP) Pulse Ox O2 Delivery O2 Flow Rate FiO2 05/08/20 07:45 77 36 107/34 (58) 99 05/08/20 07:30 84 40 102/36 (58) 99 05/08/20 07:15 80 36 108/37 (60) 99 05/08/20 07:00 73 34 110/33 (58) 99 05/08/20 06:00 80 38 110/45 (66) 100 05/08/20 05:48 81 39 98/45 (62) 99 05/08/20 05:45 79 37 78/59 (65) 100 05/08/20 05:30 79 35 98/53 (68) 100 05/08/20 05:15 81 41 97/39 (58) 99 05/08/20 05:05 80 35 50 05/08/20 05:00 80 43 91/42 (58) 100 05/08/20 04:15 82 38 118/39 (65) 100 05/08/20 04:00 60 05/08/20 04:00 97.8 80 37 96/48 (64) 100 05/08/20 04:00 Mechanical Ventilator 05/08/20 03:51 82 05/08/20 03:45 79 41 93/32 (52) 99 05/08/20 03:43 105/47 05/08/20 03:42 99/55 05/08/20 03:30 78 38 105/47 (66) 99 05/08/20 03:20 84 34 50 05/08/20 03:18 81 39 92/46 (61) 99 05/08/20 03:15 80 37 85/34 (51) 99 05/08/20 03:02 80 38 86/49 (61) 98 05/08/20 03:00 86/49 05/08/20 03:00 79 40 89/50 (63) 98 05/08/20 02:45 84 42 91/37 (55) 98 05/08/20 02:30 83 38 108/65 (79) 100 05/08/20 02:00 104/78 05/08/20 02:00 74 34 103/59 (74) 99 05/08/20 01:30 80 36 110/67 (81) 100 05/08/20 01:06 80 40 60 05/08/20 01:00 84 37 106/63 (77) 98 05/08/20 01:00 104/63 05/08/20 00:30 65 35 108/62 (77) 99 05/08/20 00:00 Mechanical Ventilator 05/08/20 00:00 97.7 76 32 98/62 (74) 100 05/08/20 00:00 60 05/08/20 00:00 98/52 05/08/20 00:00 75 05/07/20 23:00 107/62 05/07/20 23:00 73 39 99/64 (76) 98 05/07/20 22:46 62 30 100 Mechanical Ventilator 60 73 30 60 05/07/20 22:30 77 36 110/61 (77) 99 05/07/20 22:00 82 38 107/60 (76) 99 05/07/20 22:00 101/60 05/07/20 21:00 107/65 05/07/20 21:00 79 40 100/59 (73) 99 05/07/20 20:45 82 34 108/55 (72) 100 05/07/20 20:37 77 38 60 05/07/20 20:30 82 41 106/62 (77) 99 05/07/20 20:15 83 42 109/63 (78) 98 05/07/20 20:00 97.8 82 41 102/58 (73) 98 05/07/20 20:00 Mechanical Ventilator 05/07/20 20:00 60 05/07/20 20:00 109/63 05/07/20 20:00 80 05/07/20 19:30 82 40 118/71 (87) 100 05/07/20 19:10 81 46 60 05/07/20 19:10 88/56 05/07/20 19:00 81 42 89/56 (67) 98 05/07/20 18:00 101/66 05/07/20 18:00 81 34 101/66 (78) 97 05/07/20 17:00 97.9 77 38 98/57 (71) 97 05/07/20 17:00 98/57 05/07/20 16:00 81 05/07/20 16:00 60 05/07/20 16:00 102/62 05/07/20 16:00 77 37 102/62 (75) 98 05/07/20 16:00 Mechanical Ventilator 05/07/20 15:30 79 36 107/63 (78) 97 05/07/20 15:25 78 38 60 05/07/20 15:00 72 33 97/54 (68) 99 05/07/20 15:00 97/54 05/07/20 14:30 79 34 91/58 (69) 99 05/07/20 14:00 98/62 05/07/20 14:00 77 29 98/62 (74) 99 05/07/20 13:40 69 35 60 05/07/20 13:30 67 29 98/72 (81) 99 05/07/20 13:00 67 29 96/63 (74) 99 05/07/20 13:00 84/61 05/07/20 12:30 67 30 96/61 (73) 98 05/07/20 12:00 68 05/07/20 12:00 90/63 05/07/20 12:00 97.9 60 27 93/60 (71) 100 05/07/20 12:00 60 05/07/20 12:00 Mechanical Ventilator 05/07/20 11:30 70 34 86/57 (67) 99 05/07/20 11:00 91/55 05/07/20 11:00 77 32 60 05/07/20 11:00 66 37 93/59 (70) 97 05/07/20 10:30 67 33 89/58 (68) 96 05/07/20 10:00 69 34 95/61 (72) 96 05/07/20 10:00 96/63 05/07/20 09:30 73 29 89/62 (71) 99 05/07/20 09:00 63 33 60 05/07/20 09:00 95/58 05/07/20 09:00 73 34 95/56 (69) 99 05/07/20 08:30 72 29 100/57 (71) 99 Labs: Labs Test 05/05/20 18:15 05/06/20 03:40 05/06/20 12:08 05/07/20 03:50 Hepatitis B Surface Antigen Negative (NEGATIVE) White Blood Count 14.2 K/UL (4.8-10.8) 14.9 K/UL (4.8-10.8) Red Blood Count 2.74 M/UL (4.70-6.10) 2.68 M/UL (4.70-6.10) Hemoglobin 9.3 G/DL (14.2-18.0) 9.0 G/DL (14.2-18.0) Hematocrit 28.1 % (42.0-52.0) 27.9 % (42.0-52.0) Mean Corpuscular Volume 102 FL (80-99) 104 FL (80-99) Mean Corpuscular Hemoglobin 34.1 PG (27.0-31.0) 33.6 PG (27.0-31.0) Mean Corpuscular Hemoglobin Concent 33.3 G/DL (32.0-36.0) 32.2 G/DL (32.0-36.0) Red Cell Distribution Width 21.4 % (11.6-14.8) 21.6 % (11.6-14.8) Platelet Count 221 K/UL (150-450) 149 K/UL (150-450) Mean Platelet Volume 6.1 FL (6.5-10.1) 6.6 FL (6.5-10.1) Neutrophils (%) (Auto) % (45.0-75.0) % (45.0-75.0) Lymphocytes (%) (Auto) % (20.0-45.0) % (20.0-45.0) Monocytes (%) (Auto) % (1.0-10.0) % (1.0-10.0) Eosinophils (%) (Auto) % (0.0-3.0) % (0.0-3.0) Basophils (%) (Auto) % (0.0-2.0) % (0.0-2.0) Differential Total Cells Counted 100 100 Neutrophils % (Manual) 89 % (45-75) 86 % (45-75) Lymphocytes % (Manual) 3 % (20-45) 5 % (20-45) Monocytes % (Manual) 6 % (1-10) 4 % (1-10) Eosinophils % (Manual) 0 % (0-3) 0 % (0-3) Basophils % (Manual) 0 % (0-2) 0 % (0-2) Band Neutrophils 2 % (0-8) 5 % (0-8) Platelet Estimate Adequate Adequate Platelet Morphology Normal Normal Polychromasia 1+ Anisocytosis 2+ 2+ Macrocytosis 1+ 1+ Sodium Level 141 MMOL/L (136-145) 143 MMOL/L (136-145) Potassium Level 3.1 MMOL/L (3.5-5.1) 2.5 MMOL/L (3.5-5.1) Chloride Level 108 MMOL/L (98-107) 109 MMOL/L (98-107) Carbon Dioxide Level 27 MMOL/L (21-32) 23 MMOL/L (21-32) Anion Gap 6 mmol/L (5-15) 11 mmol/L (5-15) Blood Urea Nitrogen 63 mg/dL (7-18) 66 mg/dL (7-18) Creatinine 2.9 MG/DL (0.55-1.30) 3.3 MG/DL (0.55-1.30) Estimat Glomerular Filtration Rate 21.2 mL/min (>60) 18.2 mL/min (>60) Glucose Level 98 MG/DL (74-106) 100 MG/DL (74-106) Calcium Level 8.3 MG/DL (8.5-10.1) 8.1 MG/DL (8.5-10.1) Total Bilirubin 0.6 MG/DL (0.2-1.0) 0.4 MG/DL (0.2-1.0) Aspartate Amino Transf (AST/SGOT) 21 U/L (15-37) 20 U/L (15-37) Alanine Aminotransferase (ALT/SGPT) < 6 U/L (12-78) < 6 U/L (12-78) Alkaline Phosphatase 101 U/L (46-116) 93 U/L (46-116) Total Protein 5.6 G/DL (6.4-8.2) 6.1 G/DL (6.4-8.2) Albumin 1.2 G/DL (3.4-5.0) 1.2 G/DL (3.4-5.0) Globulin 4.4 g/dL 4.9 g/dL Albumin/Globulin Ratio 0.3 (1.0-2.7) 0.2 (1.0-2.7) Arterial Blood pH 7.401 (7.350-7.450) Arterial Blood Partial Pressure CO2 39.0 mmHg (35.0-45.0) Arterial Blood Partial Pressure O2 82.6 mmHg (75.0-100.0) Arterial Blood HCO3 23.7 mmol/L (22.0-26.0) Arterial Blood Oxygen Saturation 96.4 % (95-100) Arterial Blood Base Excess -1.0 (-2-2) Urbano Test Positive Hypochromasia 1+ Test 05/08/20 05:00 White Blood Count 21.3 K/UL (4.8-10.8) Red Blood Count 2.73 M/UL (4.70-6.10) Hemoglobin 9.5 G/DL (14.2-18.0) Hematocrit 28.3 % (42.0-52.0) Mean Corpuscular Volume 104 FL (80-99) Mean Corpuscular Hemoglobin 35.0 PG (27.0-31.0) Mean Corpuscular Hemoglobin Concent 33.6 G/DL (32.0-36.0) Red Cell Distribution Width 22.0 % (11.6-14.8) Platelet Count 150 K/UL (150-450) Mean Platelet Volume 7.0 FL (6.5-10.1) Neutrophils (%) (Auto) % (45.0-75.0) Lymphocytes (%) (Auto) % (20.0-45.0) Monocytes (%) (Auto) % (1.0-10.0) Eosinophils (%) (Auto) % (0.0-3.0) Basophils (%) (Auto) % (0.0-2.0) Sodium Level 143 MMOL/L (136-145) Potassium Level 2.2 MMOL/L (3.5-5.1) Chloride Level 111 MMOL/L (98-107) Carbon Dioxide Level 25 MMOL/L (21-32) Anion Gap 8 mmol/L (5-15) Blood Urea Nitrogen 68 mg/dL (7-18) Creatinine 3.6 MG/DL (0.55-1.30) Estimat Glomerular Filtration Rate 16.5 mL/min (>60) Glucose Level 98 MG/DL (74-106) Calcium Level 7.7 MG/DL (8.5-10.1) Phosphorus Level 0.5 MG/DL (2.5-4.9) Total Bilirubin 0.3 MG/DL (0.2-1.0) Aspartate Amino Transf (AST/SGOT) 18 U/L (15-37) Alanine Aminotransferase (ALT/SGPT) 7 U/L (12-78) Alkaline Phosphatase 116 U/L (46-116) Total Protein 6.3 G/DL (6.4-8.2) Albumin 1.2 G/DL (3.4-5.0) Globulin 5.1 g/dL Albumin/Globulin Ratio 0.2 (1.0-2.7) Objective: WDWN NAD reduced breath sounds bilaterally reduced rhonchi [id number] without MRG NABS nontender GT no CCE significant contractures nonfocal obtunded trach in place Vent skin noted Micro: Microbiology Date/Time Source Procedure Growth Status 05/06/20 17:30 Stool Clostridium difficile Toxin Assay - Final Complete Accucheck: 95 Mansoor Martinez MD May 08, 2020 08:05
[2020-05-08] MEDS: Pantoprazole Inj IVP SCH ×2 (08:37→21:06)
[2020-05-08] MEDS: levETIRAcetam 500mg/NS100ml 100 ML IVPB SCH (08:37)
[2020-05-08] MEDS: Colistin for inhalation INH SCH ×2 (09:13→21:29)
--- NOTE | 2020-05-08 10:07 | Cardiology Report ---
APPROVED REPORT EXAM: Two-dimensional and M-mode echocardiogram with Doppler and color Doppler. INDICATION Acute myocardial infarction M-Mode DIMENSIONS IVSd1.1 (0.7-1.1cm)Left Atrium (MM)3.8 (1.6-4.0cm) LVDd4.0 (3.5-5.6cm)Aortic Root2.1 (2.0-3.7cm) PWd1.0 (0.7-1.1cm)Aortic Cusp Exc.1.5 (1.5-2.0cm) IVSs1.7 cmEPSS0.6 (>1.0cm) LVDs2.2 (2.5-4.0cm) PWs1.4 cm <Conclusion> Normal left ventricular chamber size, systolic function and wall motion. Left ventricular ejection fraction estimated to be 60 %. Mild left ventricular hypertrophy. Moderate circumferencial pericardial effusion. All other cardiac chamber sizes are within normal limits. Focal aortic valve sclerosis with borderline cusp excursion. Thickened mitral valve leaflets with normal excursion. Mitral annulus and aortic root calcification. Normal pulmonic valve structure. Normal tricuspid valve structure. IVC unobtainable. A color flow and spectral Doppler study was performed and revealed: No aortic regurgitation. Peak aortic valve gradient of 15 mmHg and a mean of 7 mmHg. Trace mitral regurgitation. Mitral diastolic velocities suggest reduced left ventricular relaxation c/w mild LV diastolic dysfunction (Grade I ). Trace tricuspid regurgitation. Tricuspid systolic velocities suggests peak right ventricular systolic pressure of 19 mmHg. Mild pulmonic regurgitation present. There is no respiratory variation more than 25% across MV. There is no respiratory variation more than 50% across TV.
[2020-05-08] MEDS ORDERED: Heparin 1000 units/ml 1ml Vial INJ SCH (10:15)
[2020-05-08] MEDS ORDERED: Heparin Sod 1000 units/ml 10ml IV SCH (10:15)
[2020-05-08] MEDS: POTASSIUM PHOSPHATE IV SCH ×2 (10:54→17:16)
[2020-05-08] MEDS: NS IV SCH ×2 (10:54→17:16)
--- NOTE | 2020-05-08 11:54 | Nephrology Progress Note ---
Assessment/Plan Plan Septic Shock MOF with Oliguric ARF. HD dependent. See orders. JACLYN RN. HD MWF. Profound Hypokalemia, hypophosphtemia (and most likely hypomagnesemia) m/p due to massive GI losses. Given IV correction. Subjective Subjective Obtunded Objective Objective Last 24 Hour Vital Signs Date Time Temp Pulse Resp B/P (MAP) Pulse Ox O2 Delivery O2 Flow Rate FiO2 05/08/20 11:41 60 05/08/20 11:41 75 05/08/20 11:30 69 40 114/39 (64) 99 05/08/20 11:15 73 42 120/42 (68) 100 05/08/20 11:00 81 39 110/40 (63) 99 05/08/20 11:00 81 45 110/40 (63) 100 05/08/20 10:45 78 41 97/34 (55) 99 05/08/20 10:30 81 39 100/36 (57) 99 05/08/20 10:15 86 39 101/29 (53) 99 05/08/20 10:00 82 35 109/28 (55) 99 05/08/20 09:45 70 30 107/36 (59) 99 05/08/20 09:30 68 29 99/39 (59) 99 05/08/20 09:15 83 28 115/48 (70) 98 05/08/20 09:00 80 41 111/47 (68) 99 05/08/20 08:45 79 42 109/37 (61) 99 05/08/20 08:30 81 39 105/50 (68) 99 05/08/20 08:15 80 38 111/39 (63) 99 05/08/20 08:00 60 05/08/20 08:00 82 05/08/20 08:00 97.9 81 39 104/31 (55) 100 05/08/20 08:00 Mechanical Ventilator 05/08/20 07:45 77 36 107/34 (58) 99 05/08/20 07:30 84 40 102/36 (58) 99 05/08/20 07:25 83 39 60 05/08/20 07:15 80 36 108/37 (60) 99 05/08/20 07:00 73 34 110/33 (58) 99 05/08/20 06:00 80 38 110/45 (66) 100 05/08/20 05:48 81 39 98/45 (62) 99 05/08/20 05:45 79 37 78/59 (65) 100 05/08/20 05:30 79 35 98/53 (68) 100 05/08/20 05:15 81 41 97/39 (58) 99 05/08/20 05:05 80 35 50 05/08/20 05:00 80 43 91/42 (58) 100 05/08/20 04:15 82 38 118/39 (65) 100 05/08/20 04:00 60 05/08/20 04:00 97.8 80 37 96/48 (64) 100 05/08/20 04:00 Mechanical Ventilator 05/08/20 03:51 82 05/08/20 03:45 79 41 93/32 (52) 99 05/08/20 03:43 105/47 05/08/20 03:42 99/55 05/08/20 03:30 78 38 105/47 (66) 99 05/08/20 03:20 84 34 50 05/08/20 03:18 81 39 92/46 (61) 99 05/08/20 03:15 80 37 85/34 (51) 99 05/08/20 03:02 80 38 86/49 (61) 98 05/08/20 03:00 86/49 05/08/20 03:00 79 40 89/50 (63) 98 05/08/20 02:45 84 42 91/37 (55) 98 05/08/20 02:30 83 38 108/65 (79) 100 05/08/20 02:00 104/78 05/08/20 02:00 74 34 103/59 (74) 99 05/08/20 01:30 80 36 110/67 (81) 100 05/08/20 01:06 80 40 60 05/08/20 01:00 84 37 106/63 (77) 98 05/08/20 01:00 104/63 05/08/20 00:30 65 35 108/62 (77) 99 05/08/20 00:00 Mechanical Ventilator 05/08/20 00:00 97.7 76 32 98/62 (74) 100 05/08/20 00:00 60 05/08/20 00:00 98/52 05/08/20 00:00 75 11/8/20 23:00 107/62 05/07/20 23:00 73 39 99/64 (76) 98 05/07/20 22:46 62 30 100 Mechanical Ventilator 60 73 30 60 05/07/20 22:30 77 36 110/61 (77) 99 05/07/20 22:00 82 38 107/60 (76) 99 05/07/20 22:00 101/60 05/07/20 21:00 107/65 05/07/20 21:00 79 40 100/59 (73) 99 05/07/20 20:45 82 34 108/55 (72) 100 05/07/20 20:37 77 38 60 05/07/20 20:30 82 41 106/62 (77) 99 05/07/20 20:15 83 42 109/63 (78) 98 05/07/20 20:00 97.8 82 41 102/58 (73) 98 05/07/20 20:00 Mechanical Ventilator 05/07/20 20:00 60 05/07/20 20:00 109/63 05/07/20 20:00 80 05/07/20 19:30 82 40 118/71 (87) 100 05/07/20 19:10 81 46 60 05/07/20 19:10 88/56 05/07/20 19:00 81 42 89/56 (67) 98 05/07/20 18:00 101/66 05/07/20 18:00 81 34 101/66 (78) 97 05/07/20 17:00 97.9 77 38 98/57 (71) 97 05/07/20 17:00 98/57 05/07/20 16:00 81 05/07/20 16:00 60 05/07/20 16:00 102/62 05/07/20 16:00 77 37 102/62 (75) 98 05/07/20 16:00 Mechanical Ventilator 05/07/20 15:30 79 36 107/63 (78) 97 05/07/20 15:25 78 38 60 05/07/20 15:00 72 33 97/54 (68) 99 05/07/20 15:00 97/54 05/07/20 14:30 79 34 91/58 (69) 99 05/07/20 14:00 98/62 05/07/20 14:00 77 29 98/62 (74) 99 05/07/20 13:40 69 35 60 05/07/20 13:30 67 29 98/72 (81) 99 05/07/20 13:00 67 29 96/63 (74) 99 05/07/20 13:00 84/61 05/07/20 12:30 67 30 96/61 (73) 98 05/07/20 12:00 68 05/07/20 12:00 90/63 05/07/20 12:00 97.9 60 27 93/60 (71) 100 05/07/20 12:00 60 05/07/20 12:00 Mechanical Ventilator Intake and Output 05/07/20 05/08/20 19:00 07:00 Intake Total 1575.00 ml 1425.25 ml Output Total 40 ml 150 ml Balance 1535.00 ml 1275.25 ml IV Total 1575.00 ml 1425.25 ml Output Urine Total 40 ml 50 ml Gastric Drainage Total 100 ml # Bowel Movements 4 4 Laboratory Tests 05/08/20 05:00: White Blood Count 21.3H, Red Blood Count 2.73L, Hemoglobin 9.5L, Hematocrit 28.3L, Mean Corpuscular Volume 104H, Mean Corpuscular Hemoglobin 35.0H, Mean Corpuscular Hemoglobin Concent 33.6, Red Cell Distribution Width 22.0H, Platelet Count 150, Mean Platelet Volume 7.0, Neutrophils (%) (Auto) , Lymphocytes (%) (Auto) , Monocytes (%) (Auto) , Eosinophils (%) (Auto) , Basophils (%) (Auto) , Differential Total Cells Counted 100, Neutrophils % (Manual) 91H, Lymphocytes % (Manual) 1L, Monocytes % (Manual) 3, Eosinophils % (Manual) 2, Basophils % (Manual) 0, Band Neutrophils 3, Platelet Estimate Adequate, Platelet Morphology Normal, Polychromasia 1+, Hypochromasia 1+, Anisocytosis 2+, Macrocytosis 1+, Sodium Level 143, Potassium Level 2.2*L, Chloride Level 111H, Carbon Dioxide Level 25, Anion Gap 8, Blood Urea Nitrogen 68H, Creatinine 3.6H, Estimat Glomeru lar Filtration Rate 16.5, Glucose Level 98, Calcium Level 7.7L, Phosphorus Level 0.5*L, Total Bilirubin 0.3, Aspartate Amino Transf (AST/SGOT) 18, Alanine Aminotransferase (ALT/SGPT) 7L, Alkaline Phosphatase 116, Total Protein 6.3L, Albumin 1.2L, Globulin 5.1, Albumin/Globulin Ratio 0.2L 05/08/20 07:26: Arterial Blood pH 7.278L, Arterial Blood Partial Pressure CO2 49.8H, Arterial Blood Partial Pressure O2 120.1H, Arterial Blood HCO3 22.8, Arterial Blood Oxygen Saturation 98.0, Arterial Blood Base Excess -4.1L, Urbano Test Positive Height (Feet): 5 Height (Inches): 7.00 Weight (Pounds): 150 Objective On 6 mcgm/min Levophed CV RR Lungs B ronchi Trach clean Abd Distended. Diminished BS. E +2 edema. Femoral Mahurkar. Neuro obtunde. Has twitches.Nonfocal. Ayanna Maldonado MD May 08, 2020 11:54
--- NOTE | 2020-05-08 12:14 | Infectious Diseases Prog Note ---
"Assessment/Plan Assessment/Plan antibiotics : linezolid, inhaled colistin A 1. klebsiella pneumonia 2. MRSA | coag neg staph sepsis 3. renal failure 4. respiratory failure 5. seizures 6. CVA 7. CHF 8. shock 9, leucocytosis increased P 1. continue linezolid, inhaled colistin 2. will follow up cultures Subjective ROS Limited/Unobtainable: Yes Allergies: Coded Allergies: No Known Allergies (Unverified , 02/23/12) Objective Last 24 Hour Vital Signs Date Time Temp Pulse Resp B/P (MAP) Pulse Ox O2 Delivery O2 Flow Rate FiO2 05/08/20 12:00 Mechanical Ventilator 05/08/20 11:41 60 05/08/20 11:41 75 05/08/20 11:30 69 40 114/39 (64) 99 05/08/20 11:15 73 42 120/42 (68) 100 05/08/20 11:05 71 43 60 05/08/20 11:00 81 39 110/40 (63) 99 05/08/20 11:00 81 45 110/40 (63) 100 05/08/20 10:45 78 41 97/34 (55) 99 05/08/20 10:30 81 39 100/36 (57) 99 05/08/20 10:15 86 39 101/29 (53) 99 05/08/20 10:00 82 35 109/28 (55) 99 05/08/20 09:45 70 30 107/36 (59) 99 05/08/20 09:30 68 29 99/39 (59) 99 05/08/20 09:28 64 30 100 Mechanical Ventilator 60 66 30 60 05/08/20 09:15 83 28 115/48 (70) 98 05/08/20 09:00 80 41 111/47 (68) 99 05/08/20 08:45 79 42 109/37 (61) 99 05/08/20 08:30 81 39 105/50 (68) 99 05/08/20 08:15 80 38 111/39 (63) 99 05/08/20 08:00 60 05/08/20 08:00 82 05/08/20 08:00 97.9 81 39 104/31 (55) 100 05/08/20 08:00 Mechanical Ventilator 05/08/20 07:45 77 36 107/34 (58) 99 05/08/20 07:30 84 40 102/36 (58) 99 05/08/20 07:25 83 39 60 05/08/20 07:15 80 36 108/37 (60) 99 05/08/20 07:00 73 34 110/33 (58) 99 05/08/20 06:00 80 38 110/45 (66) 100 05/08/20 05:48 81 39 98/45 (62) 99 05/08/20 05:45 79 37 78/59 (65) 100 05/08/20 05:30 79 35 98/53 (68) 100 05/08/20 05:15 81 41 97/39 (58) 99 05/08/20 05:05 80 35 50 05/08/20 05:00 80 43 91/42 (58) 100 05/08/20 04:15 82 38 118/39 (65) 100 05/08/20 04:00 60 05/08/20 04:00 97.8 80 37 96/48 (64) 100 05/08/20 04:00 Mechanical Ventilator 05/08/20 03:51 82 05/08/20 03:45 79 41 93/32 (52) 99 05/08/20 03:43 105/47 05/08/20 03:42 99/55 05/08/20 03:30 78 38 105/47 (66) 99 05/08/20 03:20 84 34 50 05/08/20 03:18 81 39 92/46 (61) 99 05/08/20 03:15 80 37 85/34 (51) 99 05/08/20 03:02 80 38 86/49 (61) 98 05/08/20 03:00 86/49 05/08/20 03:00 79 40 89/50 (63) 98 05/08/20 02:45 84 42 91/37 (55) 98 05/08/20 02:30 83 38 108/65 (79) 100 05/08/20 02:00 104/78 05/08/20 02:00 74 34 103/59 (74) 99 05/08/20 01:30 80 36 110/67 (81) 100 05/08/20 01:06 80 40 60 05/08/20 01:00 84 37 106/63 (77) 98 05/08/20 01:00 104/63 11/9/20 00:30 65 35 108/62 (77) 99 05/08/20 00:00 Mechanical Ventilator 05/08/20 00:00 97.7 76 32 98/62 (74) 100 05/08/20 00:00 60 05/08/20 00:00 98/52 05/08/20 00:00 75 05/07/20 23:00 107/62 05/07/20 23:00 73 39 99/64 (76) 98 05/07/20 22:46 62 30 100 Mechanical Ventilator 60 73 30 60 05/07/20 22:30 77 36 110/61 (77) 99 05/07/20 22:00 82 38 107/60 (76) 99 05/07/20 22:00 101/60 05/07/20 21:00 107/65 05/07/20 21:00 79 40 100/59 (73) 99 05/07/20 20:45 82 34 108/55 (72) 100 05/07/20 20:37 77 38 60 05/07/20 20:30 82 41 106/62 (77) 99 05/07/20 20:15 83 42 109/63 (78) 98 05/07/20 20:00 97.8 82 41 102/58 (73) 98 05/07/20 20:00 Mechanical Ventilator 05/07/20 20:00 60 05/07/20 20:00 109/63 05/07/20 20:00 80 05/07/20 19:30 82 40 118/71 (87) 100 05/07/20 19:10 81 46 60 05/07/20 19:10 88/56 05/07/20 19:00 81 42 89/56 (67) 98 05/07/20 18:00 101/66 05/07/20 18:00 81 34 101/66 (78) 97 05/07/20 17:00 97.9 77 38 98/57 (71) 97 05/07/20 17:00 98/57 05/07/20 16:00 81 05/07/20 16:00 60 05/07/20 16:00 102/62 05/07/20 16:00 77 37 102/62 (75) 98 05/07/20 16:00 Mechanical Ventilator 05/07/20 15:30 79 36 107/63 (78) 97 05/07/20 15:25 78 38 60 05/07/20 15:00 72 33 97/54 (68) 99 05/07/20 15:00 97/54 05/07/20 14:30 79 34 91/58 (69) 99 05/07/20 14:00 98/62 05/07/20 14:00 77 29 98/62 (74) 99 05/07/20 13:40 69 35 60 05/07/20 13:30 67 29 98/72 (81) 99 05/07/20 13:00 67 29 96/63 (74) 99 05/07/20 13:00 84/61 05/07/20 12:30 67 30 96/61 (73) 98 Height (Feet): 5 Height (Inches): 7.00 Weight (Pounds): 150 HEENT: status post trach Respiratory/Chest: lungs clear Cardiovascular: normal rate, regular rhythm, no gallop/murmur Abdomen: soft, non tender, other - GT Extremities: no edema, other - right IJ catheter Microbiology Date/Time Source Procedure Growth Status 05/06/20 17:30 Stool Clostridium difficile Toxin Assay - Final Complete Laboratory Tests Test 05/08/20 05:00 05/08/20 05:05 05/08/20 07:26 White Blood Count 21.3 K/UL (4.8-10.8) H Red Blood Count 2.73 M/UL (4.70-6.10) L Hemoglobin 9.5 G/DL (14.2-18.0) L Hematocrit 28.3 % (42.0-52.0) L Mean Corpuscular Volume 104 FL (80-99) H Mean Corpuscular Hemoglobin 35.0 PG (27.0-31.0) H Mean Corpuscular Hemoglobin Concent 33.6 G/DL (32.0-36.0) Red Cell Distribution Width 22.0 % (11.6-14.8) H Platelet Count 150 K/UL (150-450) Mean Platelet Volume 7.0 FL (6.5-10.1) Neutrophils (%) (Auto) % (45.0-75.0) Lymphocytes (%) (Auto) % (20.0-45.0) Monocytes (%) (Auto) % (1.0-10.0) Eosinophils (%) (Auto) % (0.0-3.0) Basophils (%) (Auto) % (0.0-2.0) Differential Total Cells Counted 100 Neutrophils % (Manual) 91 % (45-75) H Lymphocytes % (Manual) 1 % (20-45) L Monocytes % (Manual) 3 % (1-10) Eosinophils % (Manual) 2 % (0-3) Basophils % (Manual) 0 % (0-2) Band Neutrophils 3 % (0-8) Platelet Estimate Adequate Platelet Morphology Normal Polychromasia 1+ Hypochromasia 1+ Anisocytosis 2+ Macrocytosis 1+ Sodium Level 143 MMOL/L (136-145) Potassium Level 2.2 MMOL/L (3.5-5.1) *L Chloride Level 111 MMOL/L (98-107) H Carbon Dioxide Level 25 MMOL/L (21-32) Anion Gap 8 mmol/L (5-15) Blood Urea Nitrogen 68 mg/dL (7-18) H Creatinine 3.6 MG/DL (0.55-1.30) H Estimat Glomerular Filtration Rate 16.5 mL/min (>60) Glucose Level 98 MG/DL (74-106) Calcium Level 7.7 MG/DL (8.5-10.1) L Phosphorus Level 0.5 MG/DL (2.5-4.9) *L Total Bilirubin 0.3 MG/DL (0.2-1.0) Aspartate Amino Transf (AST/SGOT) 18 U/L (15-37) Alanine Aminotransferase (ALT/SGPT) 7 U/L (12-78) L Alkaline Phosphatase 116 U/L (46-116) Total Protein 6.3 G/DL (6.4-8.2) L Albumin 1.2 G/DL (3.4-5.0) L Globulin 5.1 g/dL Albumin/Globulin Ratio 0.2 (1.0-2.7) L Magnesium Level Pending Arterial Blood pH 7.278 (7.350-7.450) Arterial Blood Partial Pressure CO2 49.8 mmHg (35.0-45.0) H Arterial Blood Partial Pressure O2 120.1 mmHg (75.0-100.0) H Arterial Blood HCO3 22.8 mmol/L (22.0-26.0) Arterial Blood Oxygen Saturation 98.0 % (95-100) Arterial Blood Base Excess -4.1 (-2-2) L U[place] Test Positive Current Medications Medications (Trade) Dose Ordered Sig/Lanny Route PRN Reason Start Time Stop Time Status Last Admin Dose Admin Acetaminophen (Tylenol) 650 mg Q4H PRN NG fever pain 05/03/20 21:30 06/02/20 21:29 Chlorhexidine Gluconate (Kayla-Hex 2%) 1 applic DAILY@1999 TOPIC 05/04/20 20:00 08/02/20 19:59 05/07/20 20:16 Clonidine HCl (Catapres Tab) 0.1 mg Q4H PRN GT SBP above 150 05/03/20 21:30 08/01/20 21:29 Colistimethate Sodium (Colistin *inhalation use only*) 75 mg Q12HR@10,22 INH 05/06/20 22:00 05/13/20 21:59 05/08/20 09:13 Dextrose/Sodium Chloride 1,000 ml @ 50 mls/hr Q20H IV 05/06/20 11:00 06/05/20 10:59 05/08/20 02:48 Epoetin Asaf (Epoetin Asaf-EPBX(NON ESRD)) 10,000 unit FRI-FRI-FRI SUBQ 05/05/20 21:00 08/03/20 20:59 05/05/20 21:39 Heparin Sodium (Porcine) (Heparin) 1,000 unit POSTHD INJ 05/08/20 10:15 06/22/20 10:14 Levetiracetam 750 mg/Dextrose 102.5 ml @ 440 mls/hr Q12HR IV 05/08/20 21:00 06/07/20 20:59 Levothyroxine Sodium (Synthroid) 100 mcg DAILY IV 05/05/20 09:00 06/03/20 10:59 05/08/20 09:08 Linezolid 300 ml @ 300 mls/hr Q12HR IVPB 05/05/20 13:00 05/12/20 12:59 05/08/20 08:37 Lorazepam (Ativan 2mg/ml 1ml) 1 mg Q4H PRN IV For Seizures 05/07/20 09:15 05/14/20 09:14 Midodrine (Pro-Amatine) 5 mg TID ORAL 05/05/20 09:00 08/03/20 08:59 05/08/20 08:37 Norepinephrine Bitartrate 250 ml @ 0 mls/hr Q24H IV 05/08/20 03:45 05/11/20 03:32 05/08/20 03:43 Pantoprazole (Protonix) 40 mg EVERY 12 HOURS IVP 05/04/20 21:00 06/03/20 20:59 05/08/20 08:37 Potassium Phosphate 40 mm/ Sodium Chloride 288.3333 ml @ 46.944 m... Q6H IV 05/08/20 09:30 05/08/20 21:29 05/08/20 10:54 Potassium Chloride 100 ml @ 50 mls/hr Q2H IVPB 05/08/20 21:30 05/09/20 01:29 Sodium Chloride 1,000 ml @ 500 mls/hr Q2H PRN IVLG sbp<90 during hd 05/08/20 10:15 06/07/20 10:14 Isaak Hair MD May 08, 2020 12:14"
[2020-05-08] MEDS: LORazepam Inj 2mg/ml 1ml IV PRN ×2 (12:35→17:26)
--- NOTE | 2020-05-08 14:52 | General Progress Note ---
Subjective ROS Limited/Unobtainable: Yes Constitutional: Reports: malaise, weakness HEENT: Reports: no symptoms Cardiovascular: Reports: no symptoms Respiratory: Reports: cough, shortness of breath, sputum Gastrointestinal/Abdominal: Reports: difficulty swallowing Genitourinary: Reports: no symptoms Neurologic/Psychiatric: Reports: pre-existing deficit, seizure Endocrine: Reports: no symptoms Hematologic/Lymphatic: Reports: anemia Allergies: Coded Allergies: No Known Allergies (Unverified , 02/23/12) All Systems: reviewed and negative except above Subjective no events. back on levophed. poor uop. labs noted, decreased k. wbc higher. on iv abx. was briefly off pressors but now restarted. Objective Last 24 Hour Vital Signs Date Time Temp Pulse Resp B/P (MAP) Pulse Ox O2 Delivery O2 Flow Rate FiO2 05/08/20 14:00 88 33 118/32 (60) 100 05/08/20 13:30 74 35 100/34 (56) 96 05/08/20 13:00 74 34 99/45 (63) 96 05/08/20 13:00 68 41 60 05/08/20 12:45 71 35 103/40 (61) 97 05/08/20 12:35 73 50 115/39 96 05/08/20 12:30 83 43 115/39 (64) 96 05/08/20 12:15 71 37 114/35 (61) 98 05/08/20 12:00 97.9 71 38 115/37 (63) 98 05/08/20 12:00 Mechanical Ventilator 05/08/20 11:45 84 41 98/35 (56) 98 05/08/20 11:41 60 05/08/20 11:41 75 05/08/20 11:30 69 40 114/39 (64) 99 05/08/20 11:15 73 42 120/42 (68) 100 05/08/20 11:05 71 43 60 05/08/20 11:00 81 39 110/40 (63) 99 05/08/20 11:00 81 45 110/40 (63) 100 05/08/20 10:45 78 41 97/34 (55) 99 05/08/20 10:30 81 39 100/36 (57) 99 05/08/20 10:15 86 39 101/29 (53) 99 05/08/20 10:00 82 35 109/28 (55) 99 05/08/20 09:45 70 30 107/36 (59) 99 05/08/20 09:30 68 29 99/39 (59) 99 05/08/20 09:28 64 30 100 Mechanical Ventilator 60 66 30 60 05/08/20 09:15 83 28 115/48 (70) 98 05/08/20 09:00 80 41 111/47 (68) 99 05/08/20 08:45 79 42 109/37 (61) 99 05/08/20 08:30 81 39 105/50 (68) 99 05/08/20 08:15 80 38 111/39 (63) 99 05/08/20 08:00 60 05/08/20 08:00 82 05/08/20 08:00 97.9 81 39 104/31 (55) 100 05/08/20 08:00 Mechanical Ventilator 05/08/20 07:45 77 36 107/34 (58) 99 05/08/20 07:30 84 40 102/36 (58) 99 05/08/20 07:25 83 39 60 05/08/20 07:15 80 36 108/37 (60) 99 05/08/20 07:00 73 34 110/33 (58) 99 05/08/20 06:00 80 38 110/45 (66) 100 05/08/20 05:48 81 39 98/45 (62) 99 05/08/20 05:45 79 37 78/59 (65) 100 05/08/20 05:30 79 35 98/53 (68) 100 05/08/20 05:15 81 41 97/39 (58) 99 05/08/20 05:05 80 35 50 05/08/20 05:00 80 43 91/42 (58) 100 05/08/20 04:15 82 38 118/39 (65) 100 05/08/20 04:00 60 05/08/20 04:00 97.8 80 37 96/48 (64) 100 05/08/20 04:00 Mechanical Ventilator 05/08/20 03:51 82 05/08/20 03:45 79 41 93/32 (52) 99 05/08/20 03:43 105/47 05/08/20 03:42 99/55 05/08/20 03:30 78 38 105/47 (66) 99 05/08/20 03:20 84 34 50 05/08/20 03:18 81 39 92/46 (61) 99 05/08/20 03:15 80 37 85/34 (51) 99 05/08/20 03:02 80 38 86/49 (61) 98 05/08/20 03:00 86/49 05/08/20 03:00 79 40 89/50 (63) 98 05/08/20 02:45 84 42 91/37 (55) 98 05/08/20 02:30 83 38 108/65 (79) 100 05/08/20 02:00 104/78 05/08/20 02:00 74 34 103/59 (74) 99 05/08/20 01:30 80 36 110/67 (81) 100 05/08/20 01:06 80 40 60 05/08/20 01:00 84 37 106/63 (77) 98 05/08/20 01:00 104/63 05/08/20 00:30 65 35 108/62 (77) 99 05/08/20 00:00 Mechanical Ventilator 05/08/20 00:00 97.7 76 32 98/62 (74) 100 05/08/20 00:00 60 05/08/20 00:00 98/52 05/08/20 00:00 75 05/07/20 23:00 107/62 05/07/20 23:00 73 39 99/64 (76) 98 05/07/20 22:46 62 30 100 Mechanical Ventilator 60 73 30 60 05/07/20 22:30 77 36 110/61 (77) 99 05/07/20 22:00 82 38 107/60 (76) 99 05/07/20 22:00 101/60 05/07/20 21:00 107/65 05/07/20 21:00 79 40 100/59 (73) 99 05/07/20 20:45 82 34 108/55 (72) 100 05/07/20 20:37 77 38 60 05/07/20 20:30 82 41 106/62 (77) 99 05/07/20 20:15 83 42 109/63 (78) 98 05/07/20 20:00 97.8 82 41 102/58 (73) 98 05/07/20 20:00 Mechanical Ventilator 11/8/20 20:00 60 05/07/20 20:00 109/63 05/07/20 20:00 80 05/07/20 19:30 82 40 118/71 (87) 100 05/07/20 19:10 81 46 60 05/07/20 19:10 88/56 05/07/20 19:00 81 42 89/56 (67) 98 05/07/20 18:00 101/66 05/07/20 18:00 81 34 101/66 (78) 97 05/07/20 17:00 97.9 77 38 98/57 (71) 97 05/07/20 17:00 98/57 05/07/20 16:00 81 05/07/20 16:00 60 05/07/20 16:00 102/62 05/07/20 16:00 77 37 102/62 (75) 98 05/07/20 16:00 Mechanical Ventilator 05/07/20 15:30 79 36 107/63 (78) 97 05/07/20 15:25 78 38 60 05/07/20 15:00 72 33 97/54 (68) 99 05/07/20 15:00 97/54 Intake and Output 05/07/20 05/08/20 19:00 07:00 Intake Total 1575.00 ml 1425.25 ml Output Total 40 ml 150 ml Balance 1535.00 ml 1275.25 ml IV Total 1575.00 ml 1425.25 ml Output Urine Total 40 ml 50 ml Gastric Drainage Total 100 ml # Bowel Movements 4 4 Laboratory Tests 05/08/20 05:00: White Blood Count 21.3H, Red Blood Count 2.73L, Hemoglobin 9.5L, Hematocrit 28.3L, Mean Corpuscular Volume 104H, Mean Corpuscular Hemoglobin 35.0H, Mean Corpuscular Hemoglobin Concent 33.6, Red Cell Distribution Width 22.0H, Platelet Count 150, Mean Platelet Volume 7.0, Neutrophils (%) (Auto) , Lymphocytes (%) (Auto) , Monocytes (%) (Auto) , Eosinophils (%) (Auto) , Basophils (%) (Auto) , Differential Total Cells Counted 100, Neutrophils % (Manual) 91H, Lymphocytes % (Manual) 1L, Monocytes % (Manual) 3, Eosinophils % (Manual) 2, Basophils % (Manual) 0, Band Neutrophils 3, Platelet Estimate Adequate, Platelet Morphology Normal, Polychromasia 1+, Hypochromasia 1+, Anisocytosis 2+, Macrocytosis 1+, Sodium Level 143, Potassium Level 2.2*L, Chloride Level 111H, Carbon Dioxide Level 25, Anion Gap 8, Blood Urea Nitrogen 68H, Creatinine 3.6H, Estimat Glomerular Filtration Rate 16.5, Glucose Level 98, Calcium Level 7.7L, Phosphorus Level 0.5*L, Total Bilirubin 0.3, Aspartate Amino Transf (AST/SGOT) 18, Alanine Aminotransferase (ALT/SGPT) 7L, Alkaline Phosphatase 116, Total Protein 6.3L, Albumin 1.2L, Globulin 5.1, Albumin/Globulin Ratio 0.2L 05/08/20 05:05: Magnesium Level 1.8 05/08/20 07:26: Arterial Blood pH 7.278L, Arterial Blood Partial Pressure CO2 49.8H, Arterial Blood Partial Pressure O2 120.1H, Arterial Blood HCO3 22.8, Arterial Blood Oxygen Saturation 98.0, Arterial Blood Base Excess -4.1L, Urbano Test Positive Height (Feet): 5 Height (Inches): 7.00 Weight (Pounds): 150 Objective General Appearance: WD/WN, lethargic, confused EENT: PERRL/EOMI, normal ENT inspection Neck: normal alignment, supple Cardiovascular: normal rate Respiratory/Chest: chest wall non-tender, lungs clear, crackles/rales, rhonchi - bilaterally Abdomen: normal bowel sounds, non tender, soft, no organomegaly Edema: no edema noted Arm (L), no edema noted Arm (R) Neurologic: disoriented, unresponsive, aphasia Skin: normal pigmentation Assessment/Plan Problem List: (1) Dehydration ICD Codes: E86.0 - Dehydration SNOMED: 24128682 (2) Ventilator associated pneumonia ICD Codes: J95.851 - Ventilator associated pneumonia SNOMED: 153725688, 86237987 (3) AUDREY (acute kidney injury) ICD Codes: N17.9 - Acute kidney failure, unspecified SNOMED: 6108032, 15327198 (4) Anemia ICD Codes: D64.9 - Anemia, unspecified SNOMED: 976568331, 377963268 (5) HCAP (healthcare-associated pneumonia) ICD Codes: J18.9 - Pneumonia, unspecified organism SNOMED: 472147110, 916388408 (6) CKD (chronic kidney disease) stage 3, GFR 30-59 ml/min ICD Codes: N18.3 - Chronic kidney disease, stage 3 (moderate) SNOMED: 753197558 (7) GIB (gastrointestinal bleeding) ICD Codes: K92.2 - Gastrointestinal hemorrhage, unspecified SNOMED: 15137503 (8) ARF (acute renal failure) ICD Codes: N17.9 - Acute kidney failure, unspecified SNOMED: 68621772, 635002424 (9) Pneumonia ICD Codes: J18.9 - Pneumonia, unspecified organism SNOMED: 799831837 (10) UTI (urinary tract infection) ICD Codes: N39.0 - Urinary tract infection, site not specified SNOMED: 40055261, 287566915 (11) Sepsis ICD Codes: A41.9 - Sepsis, unspecified organism SNOMED: 90961163 (12) Respiratory failure ICD Codes: J96.90 - Respiratory failure, unspecified, unspecified whether with hypoxia or hypercapnia SNOMED: 730193030 Status: stable, not improved Assessment/Plan: HD per renal IV abx per ID follow up cultures vent support resp rx monitor h/h PPI pressors as needed transfuse as needed wound care replace k wound care critical and guarded Jimi Tellez MD May 08, 2020 14:52
--- NOTE | 2020-05-08 17:21 | Surgery Progress Note ---
Surgery Progress Note Subjective Procedure Performed Left femoral temporary hemodialysis catheter insertion Symptoms: worse Additional Comments on pressors wbc elevated electrolytes being replaced trach breakdown distended Objective Last 24 Hour Vital Signs Date Time Temp Pulse Resp B/P (MAP) Pulse Ox O2 Delivery O2 Flow Rate FiO2 05/08/20 17:00 90 31 109/42 (64) 97 05/08/20 16:15 85 46 121/48 (72) 97 05/08/20 16:00 97.8 86 44 123/47 (72) 97 05/08/20 16:00 50 05/08/20 16:00 Mechanical Ventilator 05/08/20 16:00 64 05/08/20 15:45 85 41 127/43 (71) 97 05/08/20 15:30 86 44 120/42 (68) 97 05/08/20 15:15 85 42 119/29 (59) 96 05/08/20 15:01 112/37 05/08/20 15:00 82 46 112/37 (62) 94 05/08/20 14:45 89 37 110/28 (55) 98 05/08/20 14:35 87 40 50 05/08/20 14:30 88 42 118/32 (60) 98 05/08/20 14:15 76 30 118/31 (60) 98 05/08/20 14:00 88 33 118/32 (60) 100 05/08/20 13:45 75 35 100/34 (56) 96 05/08/20 13:30 74 35 100/34 (56) 96 05/08/20 13:15 71 40 98/27 (50) 94 05/08/20 13:05 80 47 110/28 99 05/08/20 13:00 74 34 99/45 (63) 96 05/08/20 13:00 68 41 60 05/08/20 12:45 71 35 103/40 (61) 97 05/08/20 12:35 73 50 115/39 96 05/08/20 12:30 83 43 115/39 (64) 96 05/08/20 12:15 71 37 114/35 (61) 98 05/08/20 12:00 97.9 71 38 115/37 (63) 98 05/08/20 12:00 Mechanical Ventilator 05/08/20 11:45 84 41 98/35 (56) 98 05/08/20 11:41 60 11/9/20 11:41 75 05/08/20 11:30 69 40 114/39 (64) 99 05/08/20 11:15 73 42 120/42 (68) 100 05/08/20 11:05 71 43 60 05/08/20 11:00 81 39 110/40 (63) 99 05/08/20 11:00 81 45 110/40 (63) 100 05/08/20 10:45 78 41 97/34 (55) 99 05/08/20 10:30 81 39 100/36 (57) 99 05/08/20 10:15 86 39 101/29 (53) 99 05/08/20 10:00 82 35 109/28 (55) 99 05/08/20 09:45 70 30 107/36 (59) 99 05/08/20 09:30 68 29 99/39 (59) 99 05/08/20 09:28 64 30 100 Mechanical Ventilator 60 66 30 60 05/08/20 09:15 83 28 115/48 (70) 98 05/08/20 09:00 80 41 111/47 (68) 99 05/08/20 08:45 79 42 109/37 (61) 99 05/08/20 08:30 81 39 105/50 (68) 99 05/08/20 08:15 80 38 111/39 (63) 99 05/08/20 08:00 60 05/08/20 08:00 82 05/08/20 08:00 97.9 81 39 104/31 (55) 100 05/08/20 08:00 Mechanical Ventilator 05/08/20 07:45 77 36 107/34 (58) 99 05/08/20 07:30 84 40 102/36 (58) 99 05/08/20 07:25 83 39 60 05/08/20 07:15 80 36 108/37 (60) 99 05/08/20 07:00 73 34 110/33 (58) 99 05/08/20 06:00 80 38 110/45 (66) 100 05/08/20 05:48 81 39 98/45 (62) 99 05/08/20 05:45 79 37 78/59 (65) 100 05/08/20 05:30 79 35 98/53 (68) 100 05/08/20 05:15 81 41 97/39 (58) 99 05/08/20 05:05 80 35 50 05/08/20 05:00 80 43 91/42 (58) 100 05/08/20 04:15 82 38 118/39 (65) 100 05/08/20 04:00 60 05/08/20 04:00 97.8 80 37 96/48 (64) 100 05/08/20 04:00 Mechanical Ventilator 05/08/20 03:51 82 05/08/20 03:45 79 41 93/32 (52) 99 05/08/20 03:43 105/47 05/08/20 03:42 99/55 05/08/20 03:30 78 38 105/47 (66) 99 05/08/20 03:20 84 34 50 05/08/20 03:18 81 39 92/46 (61) 99 05/08/20 03:15 80 37 85/34 (51) 99 05/08/20 03:02 80 38 86/49 (61) 98 05/08/20 03:00 86/49 05/08/20 03:00 79 40 89/50 (63) 98 05/08/20 02:45 84 42 91/37 (55) 98 05/08/20 02:30 83 38 108/65 (79) 100 05/08/20 02:00 104/78 05/08/20 02:00 74 34 103/59 (74) 99 05/08/20 01:30 80 36 110/67 (81) 100 05/08/20 01:06 80 40 60 05/08/20 01:00 84 37 106/63 (77) 98 05/08/20 01:00 104/63 05/08/20 00:30 65 35 108/62 (77) 99 05/08/20 00:00 Mechanical Ventilator 05/08/20 00:00 97.7 76 32 98/62 (74) 100 05/08/20 00:00 60 05/08/20 00:00 98/52 05/08/20 00:00 75 05/07/20 23:00 107/62 05/07/20 23:00 73 39 99/64 (76) 98 05/07/20 22:46 62 30 100 Mechanical Ventilator 60 73 30 60 05/07/20 22:30 77 36 110/61 (77) 99 05/07/20 22:00 82 38 107/60 (76) 99 05/07/20 22:00 101/60 05/07/20 21:00 107/65 05/07/20 21:00 79 40 100/59 (73) 99 05/07/20 20:45 82 34 108/55 (72) 100 05/07/20 20:37 77 38 60 05/07/20 20:30 82 41 106/62 (77) 99 05/07/20 20:15 83 42 109/63 (78) 98 05/07/20 20:00 97.8 82 41 102/58 (73) 98 05/07/20 20:00 Mechanical Ventilator 05/07/20 20:00 60 05/07/20 20:00 109/63 05/07/20 20:00 80 05/07/20 19:30 82 40 118/71 (87) 100 05/07/20 19:10 81 46 60 05/07/20 19:10 88/56 05/07/20 19:00 81 42 89/56 (67) 98 05/07/20 18:00 101/66 05/07/20 18:00 81 34 101/66 (78) 97 I&O Intake and Output 05/07/20 05/08/20 19:00 07:00 Intake Total 1575.00 ml 1425.25 ml Output Total 40 ml 150 ml Balance 1535.00 ml 1275.25 ml IV Total 1575.00 ml 1425.25 ml Output Urine Total 40 ml 50 ml Gastric Drainage Total 100 ml # Bowel Movements 4 4 Dressing: saturated Cardiovascular: RSR Respiratory: decreased breath sounds Abdomen: distended, non-tender, decreased bowel sounds Extremities: no tenderness, no cyanosis, other Laboratory Tests Test 05/08/20 05:00 05/08/20 05:05 05/08/20 07:26 White Blood Count 21.3 K/UL (4.8-10.8) H Red Blood Count 2.73 M/UL (4.70-6.10) L Hemoglobin 9.5 G/DL (14.2-18.0) L Hematocrit 28.3 % (42.0-52.0) L Mean Corpuscular Volume 104 FL (80-99) H Mean Corpuscular Hemoglobin 35.0 PG (27.0-31.0) H Mean Corpuscular Hemoglobin Concent 33.6 G/DL (32.0-36.0) Red Cell Distribution Width 22.0 % (11.6-14.8) H Platelet Count 150 K/UL (150-450) Mean Platelet Volume 7.0 FL (6.5-10.1) Neutrophils (%) (Auto) % (45.0-75.0) Lymphocytes (%) (Auto) % (20.0-45.0) Monocytes (%) (Auto) % (1.0-10.0) Eosinophils (%) (Auto) % (0.0-3.0) Basophils (%) (Auto) % (0.0-2.0) Differential Total Cells Counted 100 Neutrophils % (Manual) 91 % (45-75) H Lymphocytes % (Manual) 1 % (20-45) L Monocytes % (Manual) 3 % (1-10) Eosinophils % (Manual) 2 % (0-3) Basophils % (Manual) 0 % (0-2) Band Neutrophils 3 % (0-8) Platelet Estimate Adequate Platelet Morphology Normal Polychromasia 1+ Hypochromasia 1+ Anisocytosis 2+ Macrocytosis 1+ Sodium Level 143 MMOL/L (136-145) Potassium Level 2.2 MMOL/L (3.5-5.1) *L Chloride Level 111 MMOL/L (98-107) H Carbon Dioxide Level 25 MMOL/L (21-32) Anion Gap 8 mmol/L (5-15) Blood Urea Nitrogen 68 mg/dL (7-18) H Creatinine 3.6 MG/DL (0.55-1.30) H Estimat Glomerular Filtration Rate 16.5 mL/min (>60) Glucose Level 98 MG/DL (74-106) Calcium Level 7.7 MG/DL (8.5-10.1) L Phosphorus Level 0.5 MG/DL (2.5-4.9) *L Total Bilirubin 0.3 MG/DL (0.2-1.0) Aspartate Amino Transf (AST/SGOT) 18 U/L (15-37) Alanine Aminotransferase (ALT/SGPT) 7 U/L (12-78) L Alkaline Phosphatase 116 U/L (46-116) Total Protein 6.3 G/DL (6.4-8.2) L Albumin 1.2 G/DL (3.4-5.0) L Globulin 5.1 g/dL Albumin/Globulin Ratio 0.2 (1.0-2.7) L Magnesium Level 1.8 MG/DL (1.8-2.4) Arterial Blood pH 7.278 (7.350-7.450) Arterial Blood Partial Pressure CO2 49.8 mmHg (35.0-45.0) H Arterial Blood Partial Pressure O2 120.1 mmHg (75.0-100.0) H Arterial Blood HCO3 22.8 mmol/L (22.0-26.0) Arterial Blood Oxygen Saturation 98.0 % (95-100) Arterial Blood Base Excess -4.1 (-2-2) L [place] Test Positive Plan Problems: (1) Dehydration (2) Ventilator associated pneumonia (3) AUDREY (acute kidney injury) (4) Hypokalemia (5) Hyperkalemia (6) Hypomagnesemia (7) Anemia (8) Decubitus skin ulcer Assessment & Plan: Pt presented on admission with gross contractures, Multiple Pressure Injuries, Tracheostomy. Skin Assessed under tracheal collar and no evidence of skin breakdown noted. Tear noted to urinary meatus- no exudate noted. Scrotum is erythematous with scattered satellite lesions. Large ulcer noted to R scrotal sac (L)4cm x (W)4.6cm. Base of wound is erythematous ,moist with Biofilm. Sacral DTPI with clusters of small islands of slough with surrounding maroon and indurated areas (L)8cm x (W)12cm.Mild Odor noted. Partial thickness Pressure Injury Upper/outer R buttocks(L)1.8cm x (W)1.3cm. Base of wound is moist and viable. Edges adherent to base of wound. Surrounding non-blanching erythema with scattered areas of shearing noted. Partial thickness Pressure Inferior lower R buttocks.(L)0.8cm x (W)1.2cm. Base of wound is moist and viable. Edges adherent to base of wound. Surrounding non- blanching erythema with scattered shearing noted extending into R ischial tuberosity. Clusters of small hyperpigmentation noted to L trochanteric and L ischial tuberosity. R Heel is fluctuant with scattered dry eschar and surrounding Non-Blanchable erythema.(L)6.5cm x (W)8cm. DTPI distal/lateral R foot(L)3cm x (W)3cm. Base of wound is maroon and fluctuant. dry eschar noted to tip of R 1st metatarsal with surrounding non-blanchable erythema extending dorsally and laterally of metatarsal(L)5cm x (W)1.3cm Non-Blanchable erythema that is fluctuant at base noted to dorso/lateral L 5th metatarsal(L)0.6cm x (W)0.3cm. L Heel is boggy with non-blanchable erythema laterally. Hyperpigmentation from previous wound noted at L heel. Tx.Plan: Cleanse Sacral wound with Saline. Apply TheraHoney to slough. Apply Moisture Barrier Paste periwound. Cover with Optifoam drsg. Change daily and prn. Apply Moisture Barrier Paste to Wounds R upper and lower R Buttocks. Cover each wound with Optifoam drsg. Change every 3 days and prn. Apply Zinc Oxide Paste to Scrotal Wounds TID and prn. Apply Betadine to wounds R heel and R foot . Cover with ABD Pads and wrap with Kerlix every 3 days and prn. Apply Betadine to L foot. Cover with ABD Pads and wrap with Kerlix every 3 days and prn. Cover Bony Prominences as needed with Optifoam drsgs. Reposition at least every 2hours or as tolerated. Off-load heels with pillow. APM/VIRAL Mattress DAILY ESTIMATED NEEDS: Needs based on Critical care, 63kg 22-30 kcals/kg 4826-6788 total kcals 1.25-2 g protein/kg 79-126 g total protein 25-30 mL/kg 4524-5457 total fluid mLs NUTRITION DIAGNOSIS: Swallowing difficulty r/ respiratory status as evidenced by pt is vent dep via trach, PEG dep. CURRENT TF:NPO ENTERAL NUTRITION RECOMMENDATIONS: Vital AF 1.2 @ 55ml/hr x 22 hrs to provide 1210ml, 1452kcal, 91g prot, 981ml free water - As medically able, rec Vital 1.2. Start @15ml/hr for 6 hrs, advance as tolerated 10ml/hr q4-6 hrs to goal. - Hold 1 hr before and after synthroid. - Flush per MD, HOB over 30 degrees - Feed w/ hemodynamic stability. ADDITIONAL RECOMMENDATIONS: 1) Obtain calibrated bed scale wts-> recent adm wt was 63kg vs 68kg today 2) Monitor renal labs and lytes, need for renal formula 3) Rec WC eval -> currently NPO 4) Monitor hemodynamic stability, ability to feed (9) SOB (shortness of breath) (10) Hypernatremia (11) Aspiration pneumonia (12) Renal insufficiency (13) Respiratory insufficiency (14) Respiratory failure (15) Malnutrition (16) Sepsis Assessment & Plan: Leukocytosis, lactic acidosis, abnormal labs. In ICU resuscitation imaging noted micro noted. 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
[2020-05-08] MEDS: Epoetin Alfa-EPBX (NON ESRD)10,000 unit/ml vial SUBQ SCH (21:05)
[2020-05-08] MEDS: Dyna-Hex 2% Top Sol 2oz TOPIC SCH (21:05)
--- NOTE | 2020-05-08 21:09 | General Progress Note ---
Subjective Allergies: Coded Allergies: No Known Allergies (Unverified , 02/23/12) Subjective Above noted seen in ICU GT aspirate now clear BM green H&H stable Objective Last 24 Hour Vital Signs Date Time Temp Pulse Resp B/P (MAP) Pulse Ox O2 Delivery O2 Flow Rate FiO2 05/08/20 20:00 Mechanical Ventilator 05/08/20 20:00 97.7 75 32 111/35 (60) 97 05/08/20 20:00 50 05/08/20 19:00 73 33 103/32 (55) 97 05/08/20 18:59 83 33 100 Mechanical Ventilator 50 05/08/20 18:59 83 33 50 05/08/20 18:30 72 30 101/35 (57) 97 05/08/20 18:00 75 32 105/35 (58) 97 05/08/20 17:56 79 28 105/32 96 05/08/20 17:30 76 34 107/29 (55) 97 05/08/20 17:29 79 38 50 05/08/20 17:26 81 41 112/38 96 05/08/20 17:00 90 31 109/42 (64) 97 05/08/20 16:15 85 46 121/48 (72) 97 05/08/20 16:00 97.8 86 44 123/47 (72) 97 05/08/20 16:00 50 05/08/20 16:00 Mechanical Ventilator 05/08/20 16:00 64 05/08/20 15:45 85 41 127/43 (71) 97 05/08/20 15:30 86 44 120/42 (68) 97 05/08/20 15:15 85 42 119/29 (59) 96 05/08/20 15:01 112/37 05/08/20 15:00 82 46 112/37 (62) 94 05/08/20 14:45 89 37 110/28 (55) 98 05/08/20 14:35 87 40 50 05/08/20 14:30 88 42 118/32 (60) 98 05/08/20 14:15 76 30 118/31 (60) 98 05/08/20 14:00 88 33 118/32 (60) 100 05/08/20 13:45 75 35 100/34 (56) 96 05/08/20 13:30 74 35 100/34 (56) 96 05/08/20 13:15 71 40 98/27 (50) 94 05/08/20 13:05 80 47 110/28 99 05/08/20 13:00 74 34 99/45 (63) 96 05/08/20 13:00 68 41 60 05/08/20 12:45 71 35 103/40 (61) 97 05/08/20 12:35 73 50 115/39 96 05/08/20 12:30 83 43 115/39 (64) 96 05/08/20 12:15 71 37 114/35 (61) 98 05/08/20 12:00 97.9 71 38 115/37 (63) 98 05/08/20 12:00 Mechanical Ventilator 05/08/20 11:45 84 41 98/35 (56) 98 05/08/20 11:41 60 05/08/20 11:41 75 05/08/20 11:30 69 40 114/39 (64) 99 05/08/20 11:15 73 42 120/42 (68) 100 05/08/20 11:05 71 43 60 05/08/20 11:00 81 39 110/40 (63) 99 05/08/20 11:00 81 45 110/40 (63) 100 05/08/20 10:45 78 41 97/34 (55) 99 05/08/20 10:30 81 39 100/36 (57) 99 05/08/20 10:15 86 39 101/29 (53) 99 05/08/20 10:00 82 35 109/28 (55) 99 05/08/20 09:45 70 30 107/36 (59) 99 05/08/20 09:30 68 29 99/39 (59) 99 05/08/20 09:28 64 30 100 Mechanical Ventilator 60 66 30 60 05/08/20 09:15 83 28 115/48 (70) 98 05/08/20 09:00 80 41 111/47 (68) 99 05/08/20 08:45 79 42 109/37 (61) 99 05/08/20 08:30 81 39 105/50 (68) 99 05/08/20 08:15 80 38 111/39 (63) 99 05/08/20 08:00 60 05/08/20 08:00 82 05/08/20 08:00 97.9 81 39 104/31 (55) 100 05/08/20 08:00 Mechanical Ventilator 05/08/20 07:45 77 36 107/34 (58) 99 05/08/20 07:30 84 40 102/36 (58) 99 05/08/20 07:25 83 39 60 05/08/20 07:15 80 36 108/37 (60) 99 05/08/20 07:00 73 34 110/33 (58) 99 05/08/20 06:00 80 38 110/45 (66) 100 05/08/20 05:48 81 39 98/45 (62) 99 05/08/20 05:45 79 37 78/59 (65) 100 05/08/20 05:30 79 35 98/53 (68) 100 05/08/20 05:15 81 41 97/39 (58) 99 05/08/20 05:05 80 35 50 05/08/20 05:00 80 43 91/42 (58) 100 05/08/20 04:15 82 38 118/39 (65) 100 05/08/20 04:00 60 05/08/20 04:00 97.8 80 37 96/48 (64) 100 05/08/20 04:00 Mechanical Ventilator 05/08/20 03:51 82 05/08/20 03:45 79 41 93/32 (52) 99 05/08/20 03:43 105/47 05/08/20 03:42 99/55 05/08/20 03:30 78 38 105/47 (66) 99 05/08/20 03:20 84 34 50 05/08/20 03:18 81 39 92/46 (61) 99 05/08/20 03:15 80 37 85/34 (51) 99 05/08/20 03:02 80 38 86/49 (61) 98 05/08/20 03:00 86/49 05/08/20 03:00 79 40 89/50 (63) 98 05/08/20 02:45 84 42 91/37 (55) 98 05/08/20 02:30 83 38 108/65 (79) 100 05/08/20 02:00 104/78 05/08/20 02:00 74 34 103/59 (74) 99 05/08/20 01:30 80 36 110/67 (81) 100 05/08/20 01:06 80 40 60 05/08/20 01:00 84 37 106/63 (77) 98 05/08/20 01:00 104/63 05/08/20 00:30 65 35 108/62 (77) 99 05/08/20 00:00 Mechanical Ventilator 05/08/20 00:00 97.7 76 32 98/62 (74) 100 05/08/20 00:00 60 05/08/20 00:00 98/52 05/08/20 00:00 75 05/07/20 23:00 107/62 05/07/20 23:00 73 39 99/64 (76) 98 05/07/20 22:46 62 30 100 Mechanical Ventilator 60 73 30 60 05/07/20 22:30 77 36 110/61 (77) 99 05/07/20 22:00 82 38 107/60 (76) 99 05/07/20 22:00 101/60 Intake and Output 05/07/20 05/08/20 19:00 07:00 Intake Total 1575.00 ml 1425.25 ml Output Total 40 ml 150 ml Balance 1535.00 ml 1275.25 ml IV Total 1575.00 ml 1425.25 ml Output Urine Total 40 ml 50 ml Gastric Drainage Total 100 ml # Bowel Movements 4 4 Laboratory Tests 05/08/20 05:00: White Blood Count 21.3H, Red Blood Count 2.73L, Hemoglobin 9.5L, Hematocrit 28.3L, Mean Corpuscular Volume 104H, Mean Corpuscular Hemoglobin 35.0H, Mean Corpuscular Hemoglobin Concent 33.6, Red Cell Distribution Width 22.0H, Platelet Count 150, Mean Platelet Volume 7.0, Neutrophils (%) (Auto) , Lymphocytes (%) (Auto) , Monocytes (%) (Auto) , Eosinophils (%) (Auto) , Basophils (%) (Auto) , Differential Total Cells Counted 100, Neutrophils % (Manual) 91H, Lymphocytes % (Manual) 1L, Monocytes % (Manual) 3, Eosinophils % (Manual) 2, Basophils % (Manual) 0, Band Neutrophils 3, Platelet Estimate Adequate, Platelet Morphology Normal, Polychromasia 1+, Hypochromasia 1+, Anisocytosis 2+, Macrocytosis 1+, Sodium Level 143, Potassium Level 2.2*L, Chloride Level 111H, Carbon Dioxide Level 25, Anion Gap 8, Blood Urea Nitrogen 68H, Creatinine 3.6H, Estimat Glomerular Filtration Rate 16.5, Glucose Level 98, Calcium Level 7.7L, Phosphorus Level 0.5*L, Total Bilirubin 0.3, Aspartate Amino Transf (AST/SGOT) 18, Alanine Aminotransferase (ALT/SGPT) 7L, Alkaline Phosphatase 116, Total Protein 6.3L, Albumin 1.2L, Globulin 5.1, Albumin/Globulin Ratio 0.2L 05/08/20 05:05: Magnesium Level 1.8 05/08/20 07:26: Arterial Blood pH 7.278L, Arterial Blood Partial Pressure CO2 49.8H, Arterial Blood Partial Pressure O2 120.1H, Arterial Blood HCO3 22.8, Arterial Blood Oxygen Saturation 98.0, Arterial Blood Base Excess -4.1L, [place] Test Positive Height (Feet): 5 Height (Inches): 7.00 Weight (Pounds): 150 Objective NCAT (+) trach Coarse BS RR abd soft, (+) GT, some distention (++) contracted (+) edema Assessment/Plan Status: stable, not improved Assessment/Plan: Assessment - Upper GI bleed - resolved - hypotensive , on pressors - h/o gastric ulcer - anemia - renal failure - resp failure - contractures - Poor prognosis Recommendations - Pressors / supportive care - monitor H&H - IV PPI - transfuse PRN - begin TF Clive Kuo MD May 08, 2020 21:09
[2020-05-08] MEDS: levETIRAcetam 750 MG in D5W 95 ML IV SCH (21:12)
[2020-05-09] VITALS (59 sets, daily range): BP systolic 78–149; BP diastolic 12–51
[2020-05-09] MEDS: Norepinephrine 4mg/NS Premix 250 ML IV SCH ×2 (00:23→10:26)
[2020-05-09] MEDS: LORazepam Inj 2mg/ml 1ml IV PRN (00:25)
--- NOTE | 2020-05-09 00:30 | Cardiology Progress Note ---
Subjective DATE OF SERVICE: May 08, 2020 Remains Critical & Guarded On vent support Still requiring pressor support - on norepinephrine with no progress in further dose taper over past 24hrs IV thyroid replacement for TSH of 49 - but was unavailable today from pharmacy. Has coffee grounds from GTube; req'd 2 units of PRBC's 05/05. Renal function remains impaired with poor urine output; patient had HD 05/05 with further sessions per renal. Objective Last 24 Hour Vital Signs Date Time Temp Pulse Resp B/P (MAP) Pulse Ox O2 Delivery O2 Flow Rate FiO2 05/08/20 23:00 90 33 95/36 (55) 98 05/08/20 22:47 89 33 50 05/08/20 22:00 85 35 122/38 (66) 98 05/08/20 21:35 90 34 99 Mechanical Ventilator 50 83 30 50 05/08/20 21:00 78 33 111/31 (57) 97 05/08/20 20:00 Mechanical Ventilator 05/08/20 20:00 97.7 75 32 111/35 (60) 97 05/08/20 20:00 71 05/08/20 20:00 50 05/08/20 19:00 73 33 103/32 (55) 97 05/08/20 18:59 83 33 100 Mechanical Ventilator 50 05/08/20 18:59 83 33 50 05/08/20 18:30 72 30 101/35 (57) 97 05/08/20 18:00 75 32 105/35 (58) 97 05/08/20 17:56 79 28 105/32 96 05/08/20 17:30 76 34 107/29 (55) 97 05/08/20 17:29 79 38 50 05/08/20 17:26 81 41 112/38 96 05/08/20 17:00 90 31 109/42 (64) 97 05/08/20 16:15 85 46 121/48 (72) 97 05/08/20 16:00 97.8 86 44 123/47 (72) 97 05/08/20 16:00 50 05/08/20 16:00 Mechanical Ventilator 05/08/20 16:00 64 05/08/20 15:45 85 41 127/43 (71) 97 05/08/20 15:30 86 44 120/42 (68) 97 05/08/20 15:15 85 42 119/29 (59) 96 05/08/20 15:01 112/37 05/08/20 15:00 82 46 112/37 (62) 94 05/08/20 14:45 89 37 110/28 (55) 98 05/08/20 14:35 87 40 50 05/08/20 14:30 88 42 118/32 (60) 98 05/08/20 14:15 76 30 118/31 (60) 98 05/08/20 14:00 88 33 118/32 (60) 100 05/08/20 13:45 75 35 100/34 (56) 96 05/08/20 13:30 74 35 100/34 (56) 96 05/08/20 13:15 71 40 98/27 (50) 94 05/08/20 13:05 80 47 110/28 99 05/08/20 13:00 74 34 99/45 (63) 96 05/08/20 13:00 68 41 60 05/08/20 12:45 71 35 103/40 (61) 97 05/08/20 12:35 73 50 115/39 96 05/08/20 12:30 83 43 115/39 (64) 96 05/08/20 12:15 71 37 114/35 (61) 98 05/08/20 12:00 97.9 71 38 115/37 (63) 98 05/08/20 12:00 Mechanical Ventilator 05/08/20 11:45 84 41 98/35 (56) 98 05/08/20 11:41 60 05/08/20 11:41 75 05/08/20 11:30 69 40 114/39 (64) 99 05/08/20 11:15 73 42 120/42 (68) 100 05/08/20 11:05 71 43 60 05/08/20 11:00 81 39 110/40 (63) 99 05/08/20 11:00 81 45 110/40 (63) 100 05/08/20 10:45 78 41 97/34 (55) 99 05/08/20 10:30 81 39 100/36 (57) 99 05/08/20 10:15 86 39 101/29 (53) 99 05/08/20 10:00 82 35 109/28 (55) 99 05/08/20 09:45 70 30 107/36 (59) 99 05/08/20 09:30 68 29 99/39 (59) 99 05/08/20 09:28 64 30 100 Mechanical Ventilator 60 66 30 60 05/08/20 09:15 83 28 115/48 (70) 98 05/08/20 09:00 80 41 111/47 (68) 99 05/08/20 08:45 79 42 109/37 (61) 99 05/08/20 08:30 81 39 105/50 (68) 99 05/08/20 08:15 80 38 111/39 (63) 99 05/08/20 08:00 60 05/08/20 08:00 82 05/08/20 08:00 97.9 81 39 104/31 (55) 100 05/08/20 08:00 Mechanical Ventilator 05/08/20 07:45 77 36 107/34 (58) 99 05/08/20 07:30 84 40 102/36 (58) 99 05/08/20 07:25 83 39 60 05/08/20 07:15 80 36 108/37 (60) 99 05/08/20 07:00 73 34 110/33 (58) 99 05/08/20 06:00 80 38 110/45 (66) 100 05/08/20 05:48 81 39 98/45 (62) 99 05/08/20 05:45 79 37 78/59 (65) 100 05/08/20 05:30 79 35 98/53 (68) 100 05/08/20 05:15 81 41 97/39 (58) 99 05/08/20 05:05 80 35 50 05/08/20 05:00 80 43 91/42 (58) 100 05/08/20 04:15 82 38 118/39 (65) 100 05/08/20 04:00 60 05/08/20 04:00 97.8 80 37 96/48 (64) 100 05/08/20 04:00 Mechanical Ventilator 05/08/20 03:51 82 05/08/20 03:45 79 41 93/32 (52) 99 05/08/20 03:43 105/47 05/08/20 03:42 99/55 05/08/20 03:30 78 38 105/47 (66) 99 05/08/20 03:20 84 34 50 05/08/20 03:18 81 39 92/46 (61) 99 05/08/20 03:15 80 37 85/34 (51) 99 05/08/20 03:02 80 38 86/49 (61) 98 05/08/20 03:00 86/49 05/08/20 03:00 79 40 89/50 (63) 98 05/08/20 02:45 84 42 91/37 (55) 98 05/08/20 02:30 83 38 108/65 (79) 100 05/08/20 02:00 104/78 05/08/20 02:00 74 34 103/59 (74) 99 05/08/20 01:30 80 36 110/67 (81) 100 05/08/20 01:06 80 40 60 05/08/20 01:00 84 37 106/63 (77) 98 05/08/20 01:00 104/63 05/08/20 00:30 65 35 108/62 (77) 99 ROS: no change from my admit note. HEENT: Thick Trach secretions RHYTHM: ST LUNGS: bilateral rhonchi CARDIAC: normal rate, regular rhythm, normal S1 and S2 ABDOMEN: normal bowel sounds, soft, no organomegaly, G-Tube intact EXTREMITIES: trace edema, other - obtunded Laboratory Tests Test 05/08/20 05:00 05/08/20 05:05 05/08/20 07:26 White Blood Count 21.3 K/UL (4.8-10.8) H Red Blood Count 2.73 M/UL (4.70-6.10) L Hemoglobin 9.5 G/DL (14.2-18.0) L Hematocrit 28.3 % (42.0-52.0) L Mean Corpuscular Volume 104 FL (80-99) H Mean Corpuscular Hemoglobin 35.0 PG (27.0-31.0) H Mean Corpuscular Hemoglobin Concent 33.6 G/DL (32.0-36.0) Red Cell Distribution Width 22.0 % (11.6-14.8) H Platelet Count 150 K/UL (150-450) Mean Platelet Volume 7.0 FL (6.5-10.1) Neutrophils (%) (Auto) % (45.0-75.0) Lymphocytes (%) (Auto) % (20.0-45.0) Monocytes (%) (Auto) % (1.0-10.0) Eosinophils (%) (Auto) % (0.0-3.0) Basophils (%) (Auto) % (0.0-2.0) Differential Total Cells Counted 100 Neutrophils % (Manual) 91 % (45-75) H Lymphocytes % (Manual) 1 % (20-45) L Monocytes % (Manual) 3 % (1-10) Eosinophils % (Manual) 2 % (0-3) Basophils % (Manual) 0 % (0-2) Band Neutrophils 3 % (0-8) Platelet Estimate Adequate Platelet Morphology Normal Polychromasia 1+ Hypochromasia 1+ Anisocytosis 2+ Macrocytosis 1+ Sodium Level 143 MMOL/L (136-145) Potassium Level 2.2 MMOL/L (3.5-5.1) *L Chloride Level 111 MMOL/L (98-107) H Carbon Dioxide Level 25 MMOL/L (21-32) Anion Gap 8 mmol/L (5-15) Blood Urea Nitrogen 68 mg/dL (7-18) H Creatinine 3.6 MG/DL (0.55-1.30) H Estimat Glomerular Filtration Rate 16.5 mL/min (>60) Glucose Level 98 MG/DL (74-106) Calcium Level 7.7 MG/DL (8.5-10.1) L Phosphorus Level 0.5 MG/DL (2.5-4.9) *L Total Bilirubin 0.3 MG/DL (0.2-1.0) Aspartate Amino Transf (AST/SGOT) 18 U/L (15-37) Alanine Aminotransferase (ALT/SGPT) 7 U/L (12-78) L Alkaline Phosphatase 116 U/L (46-116) Total Protein 6.3 G/DL (6.4-8.2) L Albumin 1.2 G/DL (3.4-5.0) L Globulin 5.1 g/dL Albumin/Globulin Ratio 0.2 (1.0-2.7) L Magnesium Level 1.8 MG/DL (1.8-2.4) Arterial Blood pH 7.278 (7.350-7.450) Arterial Blood Partial Pressure CO2 49.8 mmHg (35.0-45.0) H Arterial Blood Partial Pressure O2 120.1 mmHg (75.0-100.0) H Arterial Blood HCO3 22.8 mmol/L (22.0-26.0) Arterial Blood Oxygen Saturation 98.0 % (95-100) Arterial Blood Base Excess -4.1 (-2-2) L [place] Test Positive Microbiology Date/Time Source Procedure Growth Status 05/06/20 17:30 Stool Clostridium difficile Toxin Assay - Final Complete Assessment/Plan Assessment/Plan Shock Sepsis Leukocytosis GI bleeding Anemia Hypokalemia Ventilator dep respiratory failure Severe protein calorie malnutrition Ac/chronic diastolic CHF Acute renal failure now on HD. Chronic encephalopathy Pressor support with taper as able Vent support Antimicrobials IV thyroid replacement IVF; cautious K+ suppl with renal failure. Consider PRBC transfusion for recurrent bleeding; holding all anti-plt and anti- coagulants. DVT prophylaxis Add'l dialysis per renal Defer EGD until off pressors Franko Pineda MD May 09, 2020 00:30
[2020-05-09 06:52] LABS: CALCIUM 7.1 MG/DL (8.5-10.1); CREATININE 2.7 MG/DL (0.55-1.30); POTASSIUM 3.7 MMOL/L (3.5-5.1)
--- NOTE | 2020-05-09 07:56 | Critical Care Progress Note ---
Assessment/Plan Assessment/Plan IMPRESSION: Respiratory failure chronic, chronic encephalopathy, sepsis, leukocytosis, G-tube, aspiration, acute on chronic renal failure, electrolyte abnormality, failure to thrive, severe protein-calorie malnutrition, chronic CO2 retention; Hypoxemia, worsening acidemia RECOMMENDATIONS: on midodrine and pressors as needed; feeds per gi- monitor protein levels; Supportive care. IV antibiotics and adjust and discuss. Respiratory support and vent management- taper oxygen needs as able, monitor acid base and hyperventilate penitentiary medications. Monitor clinically. Prognosis is overall poor. monitor labs and adjust therapy; replace K IV renal ID cardiology; await further recommendations and stabilization medications/laboratory data/nursing notes/ICU care reviewed in detail note reviewed and edited care discussed with RN and RT ICU time spent >40 minutes Critical Care - Subjective ROS Limited/Unobtainable: Yes Condition: critical EKG Rhythm: Sinus Rhythm I&O: Intake and Output 05/08/20 05/09/20 19:00 07:00 Intake Total 1705.7563 ml 1792.738 ml Output Total 345 ml 25 ml Balance 1360.7563 ml 1767.738 ml IV Total 1705.7563 ml 1792.738 ml Output Urine Total 165 ml 25 ml Gastric Drainage Total 180 ml # Bowel Movements 4 5 Critical Care - Objective Last 24 Hour Vital Signs Date Time Temp Pulse Resp B/P (MAP) Pulse Ox O2 Delivery O2 Flow Rate FiO2 05/09/20 06:15 88 37 109/31 (57) 100 05/09/20 06:00 85 33 114/29 (57) 100 05/09/20 05:45 92 31 117/31 (59) 100 05/09/20 05:30 92 34 113/34 (60) 100 05/09/20 05:15 94 29 115/33 (60) 99 05/09/20 05:12 88 35 50 05/09/20 05:03 91 31 116/34 (61) 100 05/09/20 04:00 98.0 80 30 118/33 (61) 98 05/09/20 04:00 87 05/09/20 04:00 Mechanical Ventilator 05/09/20 04:00 50 05/09/20 03:00 77 29 120/42 (68) 99 05/09/20 02:56 78 30 50 05/09/20 02:30 78 30 116/37 (63) 99 05/09/20 02:00 76 30 106/35 (58) 98 05/09/20 01:45 79 30 100/29 (52) 98 05/09/20 01:09 79 31 50 05/09/20 01:00 83 30 90/33 (52) 98 05/09/20 00:55 91 34 92/30 98 05/09/20 00:30 91 34 92/30 (50) 98 05/09/20 00:25 90 28 106/37 98 05/09/20 00:23 106/37 05/09/20 00:00 97.8 92 35 110/48 (68) 98 05/09/20 00:00 50 05/09/20 00:00 Mechanical Ventilator 05/09/20 00:00 90 05/08/20 23:00 90 33 95/36 (55) 98 05/08/20 22:47 89 33 50 05/08/20 22:00 85 35 122/38 (66) 98 05/08/20 21:35 90 34 99 Mechanical Ventilator 50 83 30 50 05/08/20 21:00 78 33 111/31 (57) 97 05/08/20 20:00 Mechanical Ventilator 05/08/20 20:00 97.7 75 32 111/35 (60) 97 05/08/20 20:00 71 05/08/20 20:00 50 05/08/20 19:00 73 33 103/32 (55) 97 05/08/20 18:59 83 33 100 Mechanical Ventilator 50 05/08/20 18:59 83 33 50 05/08/20 18:30 72 30 101/35 (57) 97 05/08/20 18:00 75 32 105/35 (58) 97 05/08/20 17:56 79 28 105/32 96 05/08/20 17:30 76 34 107/29 (55) 97 05/08/20 17:29 79 38 50 05/08/20 17:26 81 41 112/38 96 05/08/20 17:00 90 31 109/42 (64) 97 05/08/20 16:15 85 46 121/48 (72) 97 05/08/20 16:00 97.8 86 44 123/47 (72) 97 05/08/20 16:00 50 05/08/20 16:00 Mechanical Ventilator 05/08/20 16:00 64 05/08/20 15:45 85 41 127/43 (71) 97 05/08/20 15:30 86 44 120/42 (68) 97 05/08/20 15:15 85 42 119/29 (59) 96 05/08/20 15:01 112/37 05/08/20 15:00 82 46 112/37 (62) 94 05/08/20 14:45 89 37 110/28 (55) 98 05/08/20 14:35 87 40 50 05/08/20 14:30 88 42 118/32 (60) 98 05/08/20 14:15 76 30 118/31 (60) 98 05/08/20 14:00 88 33 118/32 (60) 100 05/08/20 13:45 75 35 100/34 (56) 96 05/08/20 13:30 74 35 100/34 (56) 96 05/08/20 13:15 71 40 98/27 (50) 94 05/08/20 13:05 80 47 110/28 99 05/08/20 13:00 74 34 99/45 (63) 96 05/08/20 13:00 68 41 60 05/08/20 12:45 71 35 103/40 (61) 97 05/08/20 12:35 73 50 115/39 96 05/08/20 12:30 83 43 115/39 (64) 96 05/08/20 12:15 71 37 114/35 (61) 98 05/08/20 12:00 97.9 71 38 115/37 (63) 98 05/08/20 12:00 Mechanical Ventilator 05/08/20 11:45 84 41 98/35 (56) 98 05/08/20 11:41 60 05/08/20 11:41 75 05/08/20 11:30 69 40 114/39 (64) 99 05/08/20 11:15 73 42 120/42 (68) 100 05/08/20 11:05 71 43 60 05/08/20 11:00 81 39 110/40 (63) 99 05/08/20 11:00 81 45 110/40 (63) 100 05/08/20 10:45 78 41 97/34 (55) 99 05/08/20 10:30 81 39 100/36 (57) 99 05/08/20 10:15 86 39 101/29 (53) 99 05/08/20 10:00 82 35 109/28 (55) 99 05/08/20 09:45 70 30 107/36 (59) 99 05/08/20 09:30 68 29 99/39 (59) 99 05/08/20 09:28 64 30 100 Mechanical Ventilator 60 66 30 60 05/08/20 09:15 83 28 115/48 (70) 98 05/08/20 09:00 80 41 111/47 (68) 99 05/08/20 08:45 79 42 109/37 (61) 99 05/08/20 08:30 81 39 105/50 (68) 99 05/08/20 08:15 80 38 111/39 (63) 99 05/08/20 08:00 60 05/08/20 08:00 82 05/08/20 08:00 97.9 81 39 104/31 (55) 100 05/08/20 08:00 Mechanical Ventilator Labs: Laboratory Tests 05/09/20 05:30: Sodium Level 139, Potassium Level 3.7#, Chloride Level 108H, Carbon Dioxide Level 21, Anion Gap 10, Blood Urea Nitrogen 40H, Creatinine 2.7H, Estimat Glomerular Filtration Rate 23.0, Glucose Level 96, Calcium Level 7.1L, Phosphorus Level 4.3 Objective: WDWN NAD reduced breath sounds bilaterally reduced rhonchi [id number] without MRG NABS nontender GT no CCE significant contractures nonfocal obtunded trach in place Vent skin noted Micro: Microbiology Date/Time Source Procedure Growth Status 05/06/20 17:30 Stool Clostridium difficile Toxin Assay - Final Complete Accucheck: 95 Mansoor Martinez MD May 09, 2020 07:56
[2020-05-09 09:11] LABS: HEMATOCRIT 30.5 % (42.0-52.0); HEMOGLOBIN 9.9 G/DL (14.2-18.0); MEAN CORPUSCULAR VOLUME 105 FL (80-99); PLATELET COUNT 145 K/UL (150-450); RED BLOOD COUNT 2.91 M/UL (4.70-6.10); RED CELL DISTRIBUTION WIDTH 21.9 % (11.6-14.8); WHITE BLOOD COUNT 18.7 K/UL (4.8-10.8)
[2020-05-09] MEDS: Pantoprazole Inj IVP SCH ×2 (09:35→20:39)
[2020-05-09] MEDS: levETIRAcetam 750 MG in D5W 95 ML IV SCH ×2 (09:35→20:38)
[2020-05-09] MEDS: Colistin for inhalation INH SCH ×2 (11:29→22:37)
--- NOTE | 2020-05-09 13:43 | Diagnostic Imaging Report ---
Indication: Shortness of breath Technique: One view of the chest Comparison: 05/05/2020 Findings: Tracheostomy, right jugular central venous catheter again demonstrated. There is increased infiltrate in the right mid and lower lung. Dense retrocardiac consolidation and generalized interstitial infiltrates versus edema persists. Small left and possible trace right pleural effusion is unchanged. Impression: Increasing infiltrates in the right mid and lower lung, since prior study of 4 days earlier Otherwise stable extensive bilateral parenchymal disease and small pleural effusions
--- NOTE | 2020-05-09 13:59 | Diagnostic Imaging Report ---
Indication: Abdominal pain Technique: Supine view of the abdomen Comparison: 05/05/2020 Findings: Previously demonstrated very dilated gas-filled sigmoid colon appears less prominent than on the previous exam. However, the amount of gas within small bowel has increased and some segments of the small bowel appear borderline dilated. Gastrostomy is again demonstrated. Surgical clips project to the left of the lumbar spine. There is a left groin temporary dialysis catheter now present. Previously reported left hip fracture is again demonstrated Impression: Increasing small bowel gas, small bowel loops now borderline dilated. Suspect functional in nature given findings on previous radiographs, but the possibility of developing distal small bowel obstruction should also be considered Somewhat less dilated sigmoid colon Critical value findings phoned to Dr. Geronimo at the time of interpretation
[2020-05-09] MEDS ORDERED: Sterile Water Irrig 1000ml IRRIG ONE (14:07)
[2020-05-09] MEDS ORDERED: D5NS 1000ml IV ONE (14:07)
[2020-05-09] MEDS ORDERED: D5W 275ml ONE (14:07)
[2020-05-09] MEDS ORDERED: NS 275ml ONE ×3 (14:07→14:15)
--- NOTE | 2020-05-09 14:10 | Surgery Progress Note ---
Surgery Progress Note Subjective Procedure Performed Left femoral temporary hemodialysis catheter insertion Additional Comments no acute events on levo volunes low leukocytosis Objective Last 24 Hour Vital Signs Date Time Temp Pulse Resp B/P (MAP) Pulse Ox O2 Delivery O2 Flow Rate FiO2 05/09/20 13:35 100 43 50 05/09/20 12:45 96 38 109/46 (67) 97 05/09/20 12:30 95 37 112/34 (60) 96 05/09/20 12:15 95 36 110/40 (63) 97 05/09/20 12:00 50 05/09/20 12:00 Mechanical Ventilator 05/09/20 12:00 98.0 101 33 117/26 (56) 97 05/09/20 11:42 92 35 99 Mechanical Ventilator 50 94 36 50 05/09/20 10:45 82 32 112/35 (60) 98 05/09/20 10:30 79 35 123/48 (73) 98 05/09/20 10:26 122/40 05/09/20 10:15 74 36 122/40 (67) 98 05/09/20 10:00 95 29 117/45 (69) 97 05/09/20 09:45 96 33 103/30 (54) 99 05/09/20 09:30 96 35 98/28 (51) 99 05/09/20 09:23 96 41 50 05/09/20 09:15 98 30 96/27 (50) 98 05/09/20 09:00 96 32 99/28 (51) 97 05/09/20 08:03 103 36 98/43 (61) 99 05/09/20 08:00 50 05/09/20 08:00 90 33 78/48 (58) 100 05/09/20 08:00 Mechanical Ventilator 05/09/20 08:00 96 05/09/20 07:45 92 37 107/51 (69) 100 05/09/20 07:30 85 36 115/32 (59) 100 05/09/20 07:15 95 30 109/39 (62) 100 05/09/20 07:10 99 42 50 05/09/20 07:00 98.5 86 31 109/40 (63) 99 05/09/20 06:15 88 37 109/31 (57) 100 05/09/20 06:00 85 33 114/29 (57) 100 05/09/20 05:45 92 31 117/31 (59) 100 05/09/20 05:30 92 34 113/34 (60) 100 05/09/20 05:15 94 29 115/33 (60) 99 05/09/20 05:12 88 35 50 05/09/20 05:03 91 31 116/34 (61) 100 05/09/20 04:00 98.0 80 30 118/33 (61) 98 05/09/20 04:00 87 05/09/20 04:00 Mechanical Ventilator 05/09/20 04:00 50 05/09/20 03:00 77 29 120/42 (68) 99 05/09/20 02:56 78 30 50 05/09/20 02:30 78 30 116/37 (63) 99 05/09/20 02:00 76 30 106/35 (58) 98 05/09/20 01:45 79 30 100/29 (52) 98 05/09/20 01:09 79 31 50 05/09/20 01:00 83 30 90/33 (52) 98 05/09/20 00:55 91 34 92/30 98 05/09/20 00:30 91 34 92/30 (50) 98 05/09/20 00:25 90 28 106/37 98 05/09/20 00:23 106/37 05/09/20 00:00 97.8 92 35 110/48 (68) 98 05/09/20 00:00 50 05/09/20 00:00 Mechanical Ventilator 05/09/20 00:00 90 05/08/20 23:00 90 33 95/36 (55) 98 05/08/20 22:47 89 33 50 05/08/20 22:00 85 35 122/38 (66) 98 05/08/20 21:35 90 34 99 Mechanical Ventilator 50 83 30 50 05/08/20 21:00 78 33 111/31 (57) 97 05/08/20 20:00 Mechanical Ventilator 05/08/20 20:00 97.7 75 32 111/35 (60) 97 05/08/20 20:00 71 05/08/20 20:00 50 05/08/20 19:00 73 33 103/32 (55) 97 05/08/20 18:59 83 33 100 Mechanical Ventilator 50 05/08/20 18:59 83 33 50 05/08/20 18:30 72 30 101/35 (57) 97 05/08/20 18:00 75 32 105/35 (58) 97 05/08/20 17:56 79 28 105/32 96 05/08/20 17:30 76 34 107/29 (55) 97 05/08/20 17:29 79 38 50 05/08/20 17:26 81 41 112/38 96 05/08/20 17:00 90 31 109/42 (64) 97 05/08/20 16:15 85 46 121/48 (72) 97 05/08/20 16:00 97.8 86 44 123/47 (72) 97 05/08/20 16:00 50 05/08/20 16:00 Mechanical Ventilator 05/08/20 16:00 64 05/08/20 15:45 85 41 127/43 (71) 97 05/08/20 15:30 86 44 120/42 (68) 97 05/08/20 15:15 85 42 119/29 (59) 96 05/08/20 15:01 112/37 05/08/20 15:00 82 46 112/37 (62) 94 05/08/20 14:45 89 37 110/28 (55) 98 05/08/20 14:35 87 40 50 05/08/20 14:30 88 42 118/32 (60) 98 05/08/20 14:15 76 30 118/31 (60) 98 I&O Intake and Output 05/08/20 05/09/20 19:00 07:00 Intake Total 1705.7563 ml 1865.238 ml Output Total 345 ml 25 ml Balance 1360.7563 ml 1840.238 ml IV Total 1705.7563 ml 1865.238 ml Output Urine Total 165 ml 25 ml Gastric Drainage Total 180 ml # Bowel Movements 4 5 Dressing: saturated Cardiovascular: RSR Respiratory: decreased breath sounds Abdomen: soft, distended, non-tender, decreased bowel sounds Extremities: no tenderness, no cyanosis Laboratory Tests Test 05/09/20 05:30 05/09/20 07:55 05/09/20 08:45 Sodium Level 139 MMOL/L (136-145) Potassium Level 3.7 MMOL/L (3.5-5.1) # Chloride Level 108 MMOL/L (98-107) H Carbon Dioxide Level 21 MMOL/L (21-32) Anion Gap 10 mmol/L (5-15) Blood Urea Nitrogen 40 mg/dL (7-18) H Creatinine 2.7 MG/DL (0.55-1.30) H Estimat Glomerular Filtration Rate 23.0 mL/min (>60) Glucose Level 96 MG/DL (74-106) Calcium Level 7.1 MG/DL (8.5-10.1) L Phosphorus Level 4.3 MG/DL (2.5-4.9) Arterial Blood pH 7.219 (7.350-7.450) Arterial Blood Partial Pressure CO2 52.0 mmHg (35.0-45.0) H Arterial Blood Partial Pressure O2 58.7 mmHg (75.0-100.0) L Arterial Blood HCO3 20.8 mmol/L (22.0-26.0) L Arterial Blood Oxygen Saturation 84.7 % (95-100) *L Arterial Blood Base Excess -6.9 (-2-2) L Urbano Test Pending White Blood Count 18.7 K/UL (4.8-10.8) H Red Blood Count 2.91 M/UL (4.70-6.10) L Hemoglobin 9.9 G/DL (14.2-18.0) L Hematocrit 30.5 % (42.0-52.0) L Mean Corpuscular Volume 105 FL (80-99) H Mean Corpuscular Hemoglobin 33.9 PG (27.0-31.0) H Mean Corpuscular Hemoglobin Concent 32.4 G/DL (32.0-36.0) Red Cell Distribution Width 21.9 % (11.6-14.8) H Platelet Count 145 K/UL (150-450) L Mean Platelet Volume 7.3 FL (6.5-10.1) Neutrophils (%) (Auto) % (45.0-75.0) Lymphocytes (%) (Auto) % (20.0-45.0) Monocytes (%) (Auto) % (1.0-10.0) Eosinophils (%) (Auto) % (0.0-3.0) Basophils (%) (Auto) % (0.0-2.0) Differential Total Cells Counted 100 Neutrophils % (Manual) 83 % (45-75) H Lymphocytes % (Manual) 2 % (20-45) L Monocytes % (Manual) 2 % (1-10) Eosinophils % (Manual) 2 % (0-3) Basophils % (Manual) 0 % (0-2) Band Neutrophils 11 % (0-8) H Platelet Estimate Decreased L Platelet Morphology Normal Polychromasia Occasional Hypochromasia Plan Problems: (1) Dehydration (2) Ventilator associated pneumonia (3) AUDREY (acute kidney injury) (4) Hypokalemia (5) Hyperkalemia (6) Hypomagnesemia (7) Anemia (8) Decubitus skin ulcer Assessment & Plan: Pt presented on admission with gross contractures, Multiple Pressure Injuries, Tracheostomy. Skin Assessed under tracheal collar and no evidence of skin breakdown noted. Tear noted to urinary meatus- no exudate noted. Scrotum is erythematous with scattered satellite lesions. Large ulcer noted to R scrotal sac (L)4cm x (W)4.6cm. Base of wound is erythematous ,moist with Biofilm. Sacral DTPI with clusters of small islands of slough with surrounding maroon and indurated areas (L)8cm x (W)12cm.Mild Odor noted. Partial thickness Pressure Injury Upper/outer R buttocks(L)1.8cm x (W)1.3cm. Base of wound is moist and viable. Edges adherent to base of wound. Surrounding non-blanching erythema with scattered areas of shearing noted. Partial thickness Pressure Inferior lower R buttocks.(L)0.8cm x (W)1.2cm. Base of wound is moist and viable. Edges adherent to base of wound. Surrounding non- blanching erythema with scattered shearing noted extending into R ischial tuberosity. Clusters of small hyperpigmentation noted to L trochanteric and L ischial tuberosity. R Heel is fluctuant with scattered dry eschar and surrounding Non-Blanchable erythema.(L)6.5cm x (W)8cm. DTPI distal/lateral R foot(L)3cm x (W)3cm. Base of wound is maroon and fluctuant. dry eschar noted to tip of R 1st metatarsal with surrounding non-blanchable erythema extending dorsally and laterally of metatarsal(L)5cm x (W)1.3cm Non-Blanchable erythema that is fluctuant at base noted to dorso/lateral L 5th metatarsal(L)0.6cm x (W)0.3cm. L Heel is boggy with non-blanchable erythema laterally. Hyperpigmentation from previous wound noted at L heel. Tx.Plan: Cleanse Sacral wound with Saline. Apply TheraHoney to slough. Apply Moisture Barrier Paste periwound. Cover with Optifoam drsg. Change daily and prn. Apply Moisture Barrier Paste to Wounds R upper and lower R Buttocks. Cover each wound with Optifoam drsg. Change every 3 days and prn. Apply Zinc Oxide Paste to Scrotal Wounds TID and prn. Apply Betadine to wounds R heel and R foot . Cover with ABD Pads and wrap with Kerlix every 3 days and prn. Apply Betadine to L foot. Cover with ABD Pads and wrap with Kerlix every 3 days and prn. Cover Bony Prominences as needed with Optifoam drsgs. Reposition at least every 2hours or as tolerated. Off-load heels with pillow. APM/VIRAL Mattress DAILY ESTIMATED NEEDS: Needs based on Critical care, 63kg 22-30 kcals/kg 1562-1072 total kcals 1.25-2 g protein/kg 79-126 g total protein 25-30 mL/kg 0623-5467 total fluid mLs NUTRITION DIAGNOSIS: Swallowing difficulty r/ respiratory status as evidenced by pt is vent dep via trach, PEG dep. CURRENT TF:NPO ENTERAL NUTRITION RECOMMENDATIONS: Vital AF 1.2 @ 55ml/hr x 22 hrs to provide 1210ml, 1452kcal, 91g prot, 981ml free water - As medically able, rec Vital 1.2. Start @15ml/hr for 6 hrs, advance as tolerated 10ml/hr q4-6 hrs to goal. - Hold 1 hr before and after synthroid. - Flush per , HOB over 30 degrees - Feed w/ hemodynamic stability. ADDITIONAL RECOMMENDATIONS: 1) Obtain calibrated bed scale wts-> recent adm wt was 63kg vs 68kg today 2) Monitor renal labs and lytes, need for renal formula 3) Rec WC eval -> currently NPO 4) Monitor hemodynamic stability, ability to feed (9) SOB (shortness of breath) (10) Hypernatremia (11) Aspiration pneumonia (12) Renal insufficiency (13) Respiratory insufficiency (14) Respiratory failure (15) Malnutrition (16) Sepsis Assessment & Plan: Leukocytosis, lactic acidosis, abnormal labs. In ICU resuscitation imaging noted micro noted. 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
[2020-05-09] MEDS ORDERED: Tubing IV Secondary IV ONE (14:15)
--- NOTE | 2020-05-09 14:43 | General Progress Note ---
Subjective ROS Limited/Unobtainable: No Constitutional: Reports: malaise, weakness HEENT: Reports: no symptoms Cardiovascular: Reports: edema Respiratory: Reports: cough, shortness of breath, sputum Gastrointestinal/Abdominal: Reports: blood in stool, difficulty swallowing Genitourinary: Reports: no symptoms Neurologic/Psychiatric: Reports: pre-existing deficit, seizure Endocrine: Reports: no symptoms Hematologic/Lymphatic: Reports: anemia Allergies: Coded Allergies: No Known Allergies (Unverified , 02/23/12) All Systems: reviewed and negative except above Subjective no events. no real change. remains on pressors- less. no bleeding. intermittent szs noted. on iv abx. uop remains poor. Objective Last 24 Hour Vital Signs Date Time Temp Pulse Resp B/P (MAP) Pulse Ox O2 Delivery O2 Flow Rate FiO2 05/09/20 14:00 98 37 127/37 (67) 97 05/09/20 13:35 100 43 50 05/09/20 12:45 96 38 109/46 (67) 97 05/09/20 12:30 95 37 112/34 (60) 96 05/09/20 12:15 95 36 110/40 (63) 97 05/09/20 12:00 50 05/09/20 12:00 Mechanical Ventilator 05/09/20 12:00 98.0 101 33 117/26 (56) 97 05/09/20 11:42 92 35 99 Mechanical Ventilator 50 94 36 50 05/09/20 10:45 82 32 112/35 (60) 98 05/09/20 10:30 79 35 123/48 (73) 98 05/09/20 10:26 122/40 05/09/20 10:15 74 36 122/40 (67) 98 05/09/20 10:00 95 29 117/45 (69) 97 05/09/20 09:45 96 33 103/30 (54) 99 05/09/20 09:30 96 35 98/28 (51) 99 05/09/20 09:23 96 41 50 05/09/20 09:15 98 30 96/27 (50) 98 05/09/20 09:00 96 32 99/28 (51) 97 05/09/20 08:03 103 36 98/43 (61) 99 05/09/20 08:00 50 05/09/20 08:00 90 33 78/48 (58) 100 05/09/20 08:00 Mechanical Ventilator 05/09/20 08:00 96 05/09/20 07:45 92 37 107/51 (69) 100 05/09/20 07:30 85 36 115/32 (59) 100 05/09/20 07:15 95 30 109/39 (62) 100 05/09/20 07:10 99 42 50 05/09/20 07:00 98.5 86 31 109/40 (63) 99 05/09/20 06:15 88 37 109/31 (57) 100 05/09/20 06:00 85 33 114/29 (57) 100 05/09/20 05:45 92 31 117/31 (59) 100 05/09/20 05:30 92 34 113/34 (60) 100 05/09/20 05:15 94 29 115/33 (60) 99 05/09/20 05:12 88 35 50 05/09/20 05:03 91 31 116/34 (61) 100 05/09/20 04:00 98.0 80 30 118/33 (61) 98 05/09/20 04:00 87 05/09/20 04:00 Mechanical Ventilator 05/09/20 04:00 50 05/09/20 03:00 77 29 120/42 (68) 99 05/09/20 02:56 78 30 50 05/09/20 02:30 78 30 116/37 (63) 99 05/09/20 02:00 76 30 106/35 (58) 98 05/09/20 01:45 79 30 100/29 (52) 98 05/09/20 01:09 79 31 50 05/09/20 01:00 83 30 90/33 (52) 98 05/09/20 00:55 91 34 92/30 98 05/09/20 00:30 91 34 92/30 (50) 98 05/09/20 00:25 90 28 106/37 98 05/09/20 00:23 106/37 05/09/20 00:00 97.8 92 35 110/48 (68) 98 05/09/20 00:00 50 05/09/20 00:00 Mechanical Ventilator 05/09/20 00:00 90 05/08/20 23:00 90 33 95/36 (55) 98 05/08/20 22:47 89 33 50 05/08/20 22:00 85 35 122/38 (66) 98 05/08/20 21:35 90 34 99 Mechanical Ventilator 50 83 30 50 05/08/20 21:00 78 33 111/31 (57) 97 05/08/20 20:00 Mechanical Ventilator 05/08/20 20:00 97.7 75 32 111/35 (60) 97 05/08/20 20:00 71 05/08/20 20:00 50 05/08/20 19:00 73 33 103/32 (55) 97 05/08/20 18:59 83 33 100 Mechanical Ventilator 50 05/08/20 18:59 83 33 50 05/08/20 18:30 72 30 101/35 (57) 97 05/08/20 18:00 75 32 105/35 (58) 97 05/08/20 17:56 79 28 105/32 96 05/08/20 17:30 76 34 107/29 (55) 97 05/08/20 17:29 79 38 50 05/08/20 17:26 81 41 112/38 96 05/08/20 17:00 90 31 109/42 (64) 97 05/08/20 16:15 85 46 121/48 (72) 97 05/08/20 16:00 97.8 86 44 123/47 (72) 97 05/08/20 16:00 50 05/08/20 16:00 Mechanical Ventilator 05/08/20 16:00 64 05/08/20 15:45 85 41 127/43 (71) 97 05/08/20 15:30 86 44 120/42 (68) 97 05/08/20 15:15 85 42 119/29 (59) 96 05/08/20 15:01 112/37 05/08/20 15:00 82 46 112/37 (62) 94 05/08/20 14:45 89 37 110/28 (55) 98 Intake and Output 05/08/20 05/09/20 19:00 07:00 Intake Total 1705.7563 ml 1865.238 ml Output Total 345 ml 25 ml Balance 1360.7563 ml 1840.238 ml IV Total 1705.7563 ml 1865.238 ml Output Urine Total 165 ml 25 ml Gastric Drainage Total 180 ml # Bowel Movements 4 5 Laboratory Tests 05/09/20 05:30: Sodium Level 139, Potassium Level 3.7#, Chloride Level 108H, Carbon Dioxide Level 21, Anion Gap 10, Blood Urea Nitrogen 40H, Creatinine 2.7H, Estimat Glomerular Filtration Rate 23.0, Glucose Level 96, Calcium Level 7.1L, Phosphorus Level 4.3 05/09/20 07:55: Arterial Blood pH 7.219*L, Arterial Blood Partial Pressure CO2 52.0H, Arterial Blood Partial Pressure O2 58.7L, Arterial Blood HCO3 20.8L, Arterial Blood Oxygen Saturation 84.7*L, Arterial Blood Base Excess -6.9L, Urbano Test [Pending] 05/09/20 08:45: White Blood Count 18.7H, Red Blood Count 2.91L, Hemoglobin 9.9L, Hematocrit 30.5L, Mean Corpuscular Volume 105H, Mean Corpuscular Hemoglobin 33.9H, Mean Corpuscular Hemoglobin Concent 32.4, Red Cell Distribution Width 21.9H, Platelet Count 145L, Mean Platelet Volume 7.3, Neutrophils (%) (Auto) , Lymphocytes (%) (Auto) , Monocytes (%) (Auto) , Eosinophils (%) (Auto) , Basophils (%) (Auto) , Differential Total Cells Counted 100, Neutrophils % (Manual) 83H, Lymphocytes % (Manual) 2L, Monocytes % (Manual) 2, Eosinophils % (Manual) 2, Basophils % (Manual) 0, Band Neutrophils 11H, Platelet Estimate DecreasedL, Platelet Morphology Normal, Polychromasia Occasional, Hypochromasia 05/09/20 14:08: Arterial Blood pH 7.205*L, Arterial Blood Partial Pressure CO2 55.5*H, Arterial Blood Partial Pressure O2 104.5H, Arterial Blood HCO3 21.5L, Arterial Blood Oxygen Saturation 96.0, Arterial Blood Base Excess -6.6L, Urbano Test Positive Height (Feet): 5 Height (Inches): 7.00 Weight (Pounds): 150 Objective General Appearance: WD/WN, lethargic, confused EENT: PERRL/EOMI, normal ENT inspection Neck: normal alignment, supple Cardiovascular: normal rate Respiratory/Chest: chest wall non-tender, lungs clear, crackles/rales, rhonchi - bilaterally Abdomen: normal bowel sounds, non tender, soft, no organomegaly Edema: no edema noted Arm (L), no edema noted Arm (R) Neurologic: disoriented, unresponsive, aphasia Skin: normal pigmentation Assessment/Plan Problem List: (1) Dehydration ICD Codes: E86.0 - Dehydration SNOMED: 84711630 (2) Ventilator associated pneumonia ICD Codes: J95.851 - Ventilator associated pneumonia SNOMED: 670061613, 83653669 (3) AUDREY (acute kidney injury) ICD Codes: N17.9 - Acute kidney failure, unspecified SNOMED: 5547568, 04229970 (4) Anemia ICD Codes: D64.9 - Anemia, unspecified SNOMED: 264523992, 399584816 (5) HCAP (healthcare-associated pneumonia) ICD Codes: J18.9 - Pneumonia, unspecified organism SNOMED: 042026671, 611290473 (6) CKD (chronic kidney disease) stage 3, GFR 30-59 ml/min ICD Codes: N18.3 - Chronic kidney disease, stage 3 (moderate) SNOMED: 991931712 (7) GIB (gastrointestinal bleeding) ICD Codes: K92.2 - Gastrointestinal hemorrhage, unspecified SNOMED: 68777229 (8) ARF (acute renal failure) ICD Codes: N17.9 - Acute kidney failure, unspecified SNOMED: 94328610, 731346010 (9) Pneumonia ICD Codes: J18.9 - Pneumonia, unspecified organism SNOMED: 811016592 (10) UTI (urinary tract infection) ICD Codes: N39.0 - Urinary tract infection, site not specified SNOMED: 99986970, 961524923 (11) Sepsis ICD Codes: A41.9 - Sepsis, unspecified organism SNOMED: 47319944 (12) Respiratory failure ICD Codes: J96.90 - Respiratory failure, unspecified, unspecified whether with hypoxia or hypercapnia SNOMED: 382239961 Status: stable, not improved Assessment/Plan: HD per renal pressors- wean as able IV abx per ID follow up cultures vent support resp rx monitor abg. adjust vent monitor h/h transfuse as needed wound care turn q2 dvt/stress ulcer prophylaxis tube feeds monitor residuals cont keppra for sz prn ativan for szs critical and guarded Jimi Tellez MD May 09, 2020 14:43
--- NOTE | 2020-05-09 14:45 | Infectious Diseases Prog Note ---
"Assessment/Plan Assessment/Plan antibiotics : linezolid, inhaled colistin A 1. klebsiella pneumonia 2. MRSA | coag neg staph sepsis 3. renal failure improving 4. respiratory failure 5. seizures 6. CVA 7. CHF 8. shock 9, leucocytosis improving P 1. continue linezolid 7 more days 2. continue inhaled colistin 3 more days 3. blood culture 4. will follow up cultures Subjective ROS Limited/Unobtainable: Yes Allergies: Coded Allergies: No Known Allergies (Unverified , 02/23/12) Objective Last 24 Hour Vital Signs Date Time Temp Pulse Resp B/P (MAP) Pulse Ox O2 Delivery O2 Flow Rate FiO2 05/09/20 14:00 98 37 127/37 (67) 97 05/09/20 13:35 100 43 50 05/09/20 12:45 96 38 109/46 (67) 97 05/09/20 12:30 95 37 112/34 (60) 96 05/09/20 12:15 95 36 110/40 (63) 97 05/09/20 12:00 50 05/09/20 12:00 Mechanical Ventilator 05/09/20 12:00 98.0 101 33 117/26 (56) 97 05/09/20 11:42 92 35 99 Mechanical Ventilator 50 94 36 50 05/09/20 10:45 82 32 112/35 (60) 98 05/09/20 10:30 79 35 123/48 (73) 98 05/09/20 10:26 122/40 05/09/20 10:15 74 36 122/40 (67) 98 05/09/20 10:00 95 29 117/45 (69) 97 05/09/20 09:45 96 33 103/30 (54) 99 05/09/20 09:30 96 35 98/28 (51) 99 05/09/20 09:23 96 41 50 05/09/20 09:15 98 30 96/27 (50) 98 05/09/20 09:00 96 32 99/28 (51) 97 05/09/20 08:03 103 36 98/43 (61) 99 05/09/20 08:00 50 05/09/20 08:00 90 33 78/48 (58) 100 05/09/20 08:00 Mechanical Ventilator 05/09/20 08:00 96 05/09/20 07:45 92 37 107/51 (69) 100 05/09/20 07:30 85 36 115/32 (59) 100 05/09/20 07:15 95 30 109/39 (62) 100 05/09/20 07:10 99 42 50 05/09/20 07:00 98.5 86 31 109/40 (63) 99 05/09/20 06:15 88 37 109/31 (57) 100 05/09/20 06:00 85 33 114/29 (57) 100 05/09/20 05:45 92 31 117/31 (59) 100 05/09/20 05:30 92 34 113/34 (60) 100 05/09/20 05:15 94 29 115/33 (60) 99 05/09/20 05:12 88 35 50 05/09/20 05:03 91 31 116/34 (61) 100 05/09/20 04:00 98.0 80 30 118/33 (61) 98 05/09/20 04:00 87 05/09/20 04:00 Mechanical Ventilator 05/09/20 04:00 50 05/09/20 03:00 77 29 120/42 (68) 99 05/09/20 02:56 78 30 50 05/09/20 02:30 78 30 116/37 (63) 99 05/09/20 02:00 76 30 106/35 (58) 98 05/09/20 01:45 79 30 100/29 (52) 98 05/09/20 01:09 79 31 50 05/09/20 01:00 83 30 90/33 (52) 98 05/09/20 00:55 91 34 92/30 98 05/09/20 00:30 91 34 92/30 (50) 98 05/09/20 00:25 90 28 106/37 98 05/09/20 00:23 106/37 05/09/20 00:00 97.8 92 35 110/48 (68) 98 05/09/20 00:00 50 05/09/20 00:00 Mechanical Ventilator 05/09/20 00:00 90 05/08/20 23:00 90 33 95/36 (55) 98 05/08/20 22:47 89 33 50 05/08/20 22:00 85 35 122/38 (66) 98 05/08/20 21:35 90 34 99 Mechanical Ventilator 50 83 30 50 05/08/20 21:00 78 33 111/31 (57) 97 05/08/20 20:00 Mechanical Ventilator 05/08/20 20:00 97.7 75 32 111/35 (60) 97 05/08/20 20:00 71 05/08/20 20:00 50 05/08/20 19:00 73 33 103/32 (55) 97 05/08/20 18:59 83 33 100 Mechanical Ventilator 50 05/08/20 18:59 83 33 50 05/08/20 18:30 72 30 101/35 (57) 97 05/08/20 18:00 75 32 105/35 (58) 97 05/08/20 17:56 79 28 105/32 96 05/08/20 17:30 76 34 107/29 (55) 97 05/08/20 17:29 79 38 50 05/08/20 17:26 81 41 112/38 96 05/08/20 17:00 90 31 109/42 (64) 97 05/08/20 16:15 85 46 121/48 (72) 97 05/08/20 16:00 97.8 86 44 123/47 (72) 97 05/08/20 16:00 50 05/08/20 16:00 Mechanical Ventilator 05/08/20 16:00 64 05/08/20 15:45 85 41 127/43 (71) 97 05/08/20 15:30 86 44 120/42 (68) 97 05/08/20 15:15 85 42 119/29 (59) 96 05/08/20 15:01 112/37 05/08/20 15:00 82 46 112/37 (62) 94 05/08/20 14:45 89 37 110/28 (55) 98 Height (Feet): 5 Height (Inches): 7.00 Weight (Pounds): 150 HEENT: status post trach Respiratory/Chest: lungs clear Cardiovascular: normal rate, regular rhythm, no gallop/murmur Abdomen: soft, non tender, other - GT Extremities: other - + edema, right IJ catheter Microbiology Date/Time Source Procedure Growth Status 05/06/20 17:30 Stool Clostridium difficile Toxin Assay - Final Complete Laboratory Tests Test 05/09/20 05:30 05/09/20 07:55 05/09/20 08:45 05/09/20 14:08 Sodium Level 139 MMOL/L (136-145) Potassium Level 3.7 MMOL/L (3.5-5.1) # Chloride Level 108 MMOL/L (98-107) H Carbon Dioxide Level 21 MMOL/L (21-32) Anion Gap 10 mmol/L (5-15) Blood Urea Nitrogen 40 mg/dL (7-18) H Creatinine 2.7 MG/DL (0.55-1.30) H Estimat Glomerular Filtration Rate 23.0 mL/min (>60) Glucose Level 96 MG/DL (74-106) Calcium Level 7.1 MG/DL (8.5-10.1) L Phosphorus Level 4.3 MG/DL (2.5-4.9) Arterial Blood pH 7.219 (7.350-7.450) 7.205 (7.350-7.450) Arterial Blood Partial Pressure CO2 52.0 mmHg (35.0-45.0) H 55.5 mmHg (35.0-45.0) *H Arterial Blood Partial Pressure O2 58.7 mmHg (75.0-100.0) L 104.5 mmHg (75.0-100.0) H Arterial Blood HCO3 20.8 mmol/L (22.0-26.0) L 21.5 mmol/L (22.0-26.0) L Arterial Blood Oxygen Saturation 84.7 % (95-100) *L 96.0 % (95-100) Arterial Blood Base Excess -6.9 (-2-2) L -6.6 (-2-2) L Urbano Test Pending Positive White Blood Count 18.7 K/UL (4.8-10.8) H Red Blood Count 2.91 M/UL (4.70-6.10) L Hemoglobin 9.9 G/DL (14.2-18.0) L Hematocrit 30.5 % (42.0-52.0) L Mean Corpuscular Volume 105 FL (80-99) H Mean Corpuscular Hemoglobin 33.9 PG (27.0-31.0) H Mean Corpuscular Hemoglobin Concent 32.4 G/DL (32.0-36.0) Red Cell Distribution Width 21.9 % (11.6-14.8) H Platelet Count 145 K/UL (150-450) L Mean Platelet Volume 7.3 FL (6.5-10.1) Neutrophils (%) (Auto) % (45.0-75.0) Lymphocytes (%) (Auto) % (20.0-45.0) Monocytes (%) (Auto) % (1.0-10.0) Eosinophils (%) (Auto) % (0.0-3.0) Basophils (%) (Auto) % (0.0-2.0) Differential Total Cells Counted 100 Neutrophils % (Manual) 83 % (45-75) H Lymphocytes % (Manual) 2 % (20-45) L Monocytes % (Manual) 2 % (1-10) Eosinophils % (Manual) 2 % (0-3) Basophils % (Manual) 0 % (0-2) Band Neutrophils 11 % (0-8) H Platelet Estimate Decreased L Platelet Morphology Normal Polychromasia Occasional Hypochromasia Current Medications Medications (Trade) Dose Ordered Sig/Lanny Route PRN Reason Start Time Stop Time Status Last Admin Dose Admin Acetaminophen (Tylenol) 650 mg Q4H PRN NG fever pain 05/03/20 21:30 06/02/20 21:29 Chlorhexidine Gluconate (Kayla-Hex 2%) 1 applic DAILY@1999 TOPIC 05/04/20 20:00 08/02/20 19:59 05/08/20 21:05 Clonidine HCl (Catapres Tab) 0.1 mg Q4H PRN GT SBP above 150 05/03/20 21:30 08/01/20 21:29 Colistimethate Sodium (Colistin *inhalation use only*) 75 mg Q12HR@ INH 05/06/20 22:00 05/13/20 21:59 05/09/20 11:29 Dextrose/Sodium Chloride 1,000 ml @ 50 mls/hr Q20H IV 05/06/20 11:00 06/05/20 10:59 05/08/20 22:37 Epoetin Asaf (Epoetin Asaf-EPBX(NON ESRD)) 10,000 unit FRI-FRI-FRI SUBQ 05/05/20 21:00 08/03/20 20:59 05/08/20 21:05 Heparin Sodium (Porcine) (Heparin) 1,000 unit POSTHD INJ 05/08/20 10:15 06/22/20 10:14 Levetiracetam 750 mg/Dextrose 102.5 ml @ 440 mls/hr Q12HR IV 05/08/20 21:00 06/07/20 20:59 05/09/20 09:35 Levothyroxine Sodium (Synthroid) 100 mcg DAILY IV 05/05/20 09:00 06/03/20 10:59 05/09/20 09:35 Linezolid 300 ml @ 300 mls/hr Q12HR IVPB 05/05/20 13:00 05/12/20 12:59 05/09/20 09:35 Lorazepam (Ativan 2mg/ml 1ml) 1 mg Q4H PRN IV For Seizures 05/07/20 09:15 05/14/20 09:14 05/09/20 00:25 Midodrine (Pro-Amatine) 5 mg TID ORAL 05/05/20 09:00 08/03/20 08:59 05/09/20 13:55 Norepinephrine Bitartrate 250 ml @ 0 mls/hr Q24H IV 05/08/20 03:45 05/11/20 03:32 05/09/20 10:26 Pantoprazole (Protonix) 40 mg EVERY 12 HOURS IVP 05/04/20 21:00 06/03/20 20:59 05/09/20 09:35 Isaak Hair MD May 09, 2020 14:45"
--- NOTE | 2020-05-09 14:49 | Nephrology Progress Note ---
Assessment/Plan Plan Septic Shock MOF with Oliguric ARF. HD dependent. See orders. DW RN. HD MWF. Ileus. Subjective Subjective Obtunded Objective Objective Last 24 Hour Vital Signs Date Time Temp Pulse Resp B/P (MAP) Pulse Ox O2 Delivery O2 Flow Rate FiO2 05/09/20 14:00 98 37 127/37 (67) 97 05/09/20 13:35 100 43 50 05/09/20 12:45 96 38 109/46 (67) 97 05/09/20 12:30 95 37 112/34 (60) 96 05/09/20 12:15 95 36 110/40 (63) 97 05/09/20 12:00 50 05/09/20 12:00 Mechanical Ventilator 05/09/20 12:00 98.0 101 33 117/26 (56) 97 05/09/20 11:42 92 35 99 Mechanical Ventilator 50 94 36 50 05/09/20 10:45 82 32 112/35 (60) 98 05/09/20 10:30 79 35 123/48 (73) 98 05/09/20 10:26 122/40 05/09/20 10:15 74 36 122/40 (67) 98 05/09/20 10:00 95 29 117/45 (69) 97 05/09/20 09:45 96 33 103/30 (54) 99 05/09/20 09:30 96 35 98/28 (51) 99 05/09/20 09:23 96 41 50 05/09/20 09:15 98 30 96/27 (50) 98 05/09/20 09:00 96 32 99/28 (51) 97 05/09/20 08:03 103 36 98/43 (61) 99 05/09/20 08:00 50 05/09/20 08:00 90 33 78/48 (58) 100 05/09/20 08:00 Mechanical Ventilator 05/09/20 08:00 96 05/09/20 07:45 92 37 107/51 (69) 100 05/09/20 07:30 85 36 115/32 (59) 100 05/09/20 07:15 95 30 109/39 (62) 100 05/09/20 07:10 99 42 50 05/09/20 07:00 98.5 86 31 109/40 (63) 99 05/09/20 06:15 88 37 109/31 (57) 100 05/09/20 06:00 85 33 114/29 (57) 100 05/09/20 05:45 92 31 117/31 (59) 100 05/09/20 05:30 92 34 113/34 (60) 100 05/09/20 05:15 94 29 115/33 (60) 99 05/09/20 05:12 88 35 50 05/09/20 05:03 91 31 116/34 (61) 100 05/09/20 04:00 98.0 80 30 118/33 (61) 98 05/09/20 04:00 87 05/09/20 04:00 Mechanical Ventilator 05/09/20 04:00 50 05/09/20 03:00 77 29 120/42 (68) 99 05/09/20 02:56 78 30 50 05/09/20 02:30 78 30 116/37 (63) 99 05/09/20 02:00 76 30 106/35 (58) 98 05/09/20 01:45 79 30 100/29 (52) 98 05/09/20 01:09 79 31 50 05/09/20 01:00 83 30 90/33 (52) 98 05/09/20 00:55 91 34 92/30 98 05/09/20 00:30 91 34 92/30 (50) 98 05/09/20 00:25 90 28 106/37 98 05/09/20 00:23 106/37 05/09/20 00:00 97.8 92 35 110/48 (68) 98 05/09/20 00:00 50 05/09/20 00:00 Mechanical Ventilator 05/09/20 00:00 90 05/08/20 23:00 90 33 95/36 (55) 98 05/08/20 22:47 89 33 50 05/08/20 22:00 85 35 122/38 (66) 98 05/08/20 21:35 90 34 99 Mechanical Ventilator 50 83 30 50 05/08/20 21:00 78 33 111/31 (57) 97 05/08/20 20:00 Mechanical Ventilator 05/08/20 20:00 97.7 75 32 111/35 (60) 97 05/08/20 20:00 71 05/08/20 20:00 50 11/9/20 19:00 73 33 103/32 (55) 97 05/08/20 18:59 83 33 100 Mechanical Ventilator 50 05/08/20 18:59 83 33 50 05/08/20 18:30 72 30 101/35 (57) 97 05/08/20 18:00 75 32 105/35 (58) 97 05/08/20 17:56 79 28 105/32 96 05/08/20 17:30 76 34 107/29 (55) 97 05/08/20 17:29 79 38 50 05/08/20 17:26 81 41 112/38 96 05/08/20 17:00 90 31 109/42 (64) 97 05/08/20 16:15 85 46 121/48 (72) 97 05/08/20 16:00 97.8 86 44 123/47 (72) 97 05/08/20 16:00 50 05/08/20 16:00 Mechanical Ventilator 05/08/20 16:00 64 05/08/20 15:45 85 41 127/43 (71) 97 05/08/20 15:30 86 44 120/42 (68) 97 05/08/20 15:15 85 42 119/29 (59) 96 05/08/20 15:01 112/37 05/08/20 15:00 82 46 112/37 (62) 94 Intake and Output 05/08/20 05/09/20 19:00 07:00 Intake Total 1705.7563 ml 1865.238 ml Output Total 345 ml 25 ml Balance 1360.7563 ml 1840.238 ml IV Total 1705.7563 ml 1865.238 ml Output Urine Total 165 ml 25 ml Gastric Drainage Total 180 ml # Bowel Movements 4 5 Laboratory Tests 05/09/20 05:30: Sodium Level 139, Potassium Level 3.7#, Chloride Level 108H, Carbon Dioxide Level 21, Anion Gap 10, Blood Urea Nitrogen 40H, Creatinine 2.7H, Estimat Glomerular Filtration Rate 23.0, Glucose Level 96, Calcium Level 7.1L, Phosphorus Level 4.3 05/09/20 07:55: Arterial Blood pH 7.219*L, Arterial Blood Partial Pressure CO2 52.0H, Arterial Blood Partial Pressure O2 58.7L, Arterial Blood HCO3 20.8L, Arterial Blood Oxygen Saturation 84.7*L, Arterial Blood Base Excess -6.9L, Urbano Test [Pending] 05/09/20 08:45: White Blood Count 18.7H, Red Blood Count 2.91L, Hemoglobin 9.9L, Hematocrit 30.5L, Mean Corpuscular Volume 105H, Mean Corpuscular Hemoglobin 33.9H, Mean Corpuscular Hemoglobin Concent 32.4, Red Cell Distribution Width 21.9H, Platelet Count 145L, Mean Platelet Volume 7.3, Neutrophils (%) (Auto) , Lymphocytes (%) (Auto) , Monocytes (%) (Auto) , Eosinophils (%) (Auto) , Basophils (%) (Auto) , Differential Total Cells Counted 100, Neutrophils % (Manual) 83H, Lymphocytes % (Manual) 2L, Monocytes % (Manual) 2, Eosinophils % (Manual) 2, Basophils % (Manual) 0, Band Neutrophils 11H, Platelet Estimate DecreasedL, Platelet Morphology Normal, Polychromasia Occasional, Hypochromasia 05/09/20 14:08: Arterial Blood pH 7.205*L, Arterial Blood Partial Pressure CO2 55.5*H, Arterial Blood Partial Pressure O2 104.5H, Arterial Blood HCO3 21.5L, Arterial Blood Oxygen Saturation 96.0, Arterial Blood Base Excess -6.6L, Urbano Test Positive Height (Feet): 5 Height (Inches): 7.00 Weight (Pounds): 150 Objective On 6 mcgm/min Levophed CV RR Lungs B ronchi Trach clean Abd Distended!!!Diminished BS. E +2 edema. Femoral Mahurkar. Neuro obtunded. Has twitches.Nonfocal. Ayanna Maldonado MD May 09, 2020 14:49
[2020-05-09] MEDS ORDERED: Heparin 1000 units/ml 1ml Vial INJ PRN (15:00)
[2020-05-09] MEDS ORDERED: Heparin Sod 1000 units/ml 10ml IV PRN (15:00)
--- NOTE | 2020-05-09 15:06 | Diagnostic Imaging Report ---
Indication: Abdominal distention. Abnormal renal function tests Technique: Vázquez-scale and duplex images of the upper abdomen were obtained Comparison: Findings: Exam is limited due to body habitus and excessive bowel gas Gallbladder could not be visualized. The gallbladder does appear to be present on prior CT scan of February 2020, so may be contracted or obscured by bowel gas. Sonographic Garcia's sign cannot be ascertained. Common bile duct measures 3 mm in diameter. No intrahepatic biliary ductal dilatation. Liver demonstrates increased echogenicity. There is surface nodularity. Portal vein and hepatic veins are patent. Pancreas is obscured by bowel gas. Spleen is mildly enlarged, 13.5 cm long axis dimension. Left kidney measures 8.9 cm in length. Right kidney measures 8.2 cm length. Both kidneys demonstrate slightly increased echogenicity. There is no hydronephrosis. No focal abnormality . Abdominal aorta is obscured by bowel gas . There is a small amount of free intraperitoneal fluid Impression: Very limited exam, as described. Note nonvisualization of the gallbladder, pancreas, and abdominal aorta Small amount of free intraperitoneal fluid Slightly increased hepatic echogenicity, surface nodularity, suggestive of cirrhotic changes. Normal caliber bile ducts Splenomegaly
[2020-05-09] MEDS: D5NS 1,000 ML IV SCH (18:34)
[2020-05-09] MEDS: Dyna-Hex 2% Top Sol 2oz TOPIC SCH (20:38)
--- NOTE | 2020-05-09 22:15 | General Progress Note ---
Subjective Allergies: Coded Allergies: No Known Allergies (Unverified , 02/23/12) Subjective Above noted seen in ICU GT aspirate non bloody TF not started by RN due to concerns with abd distention d/w surgery KUB and abd ultrasound reviewed no significant ascites but (++) bowel gas Objective Last 24 Hour Vital Signs Date Time Temp Pulse Resp B/P (MAP) Pulse Ox O2 Delivery O2 Flow Rate FiO2 05/09/20 21:45 87 34 115/45 (68) 97 05/09/20 21:30 95 33 115/41 (65) 98 05/09/20 21:15 95 37 120/30 (60) 98 05/09/20 21:00 89 05/09/20 21:00 95 34 117/26 (56) 98 05/09/20 20:49 96 38 50 05/09/20 20:45 94 33 121/31 (61) 98 05/09/20 20:30 93 33 120/29 (59) 98 05/09/20 20:15 91 33 124/29 (60) 97 05/09/20 20:00 50 05/09/20 20:00 98.6 92 33 120/25 (56) 98 05/09/20 20:00 Mechanical Ventilator 05/09/20 19:45 92 31 117/35 (62) 98 05/09/20 19:30 96 33 124/31 (62) 98 05/09/20 19:15 93 33 112/34 (60) 98 05/09/20 19:02 97 37 50 05/09/20 19:00 94 33 128/28 (61) 97 05/09/20 17:45 101 33 116/39 (64) 97 05/09/20 17:30 96 34 100/30 (53) 97 05/09/20 17:15 103 35 99/38 (58) 97 05/09/20 17:00 102 38 106/35 (58) 97 05/09/20 16:54 104 38 50 05/09/20 16:00 50 05/09/20 16:00 98.5 99 32 110/38 (62) 98 05/09/20 16:00 101 05/09/20 16:00 Mechanical Ventilator 05/09/20 15:00 96 39 129/38 (68) 97 05/09/20 15:00 100 39 50 05/09/20 14:00 98 37 127/37 (67) 97 05/09/20 13:35 100 43 50 05/09/20 12:45 96 38 109/46 (67) 97 05/09/20 12:30 95 37 112/34 (60) 96 05/09/20 12:15 95 36 110/40 (63) 97 05/09/20 12:00 50 05/09/20 12:00 88 05/09/20 12:00 Mechanical Ventilator 05/09/20 12:00 98.0 101 33 117/26 (56) 97 05/09/20 11:42 92 35 99 Mechanical Ventilator 50 94 36 50 05/09/20 10:45 82 32 112/35 (60) 98 05/09/20 10:30 79 35 123/48 (73) 98 05/09/20 10:26 122/40 05/09/20 10:15 74 36 122/40 (67) 98 05/09/20 10:00 95 29 117/45 (69) 97 05/09/20 09:45 96 33 103/30 (54) 99 05/09/20 09:30 96 35 98/28 (51) 99 05/09/20 09:23 96 41 50 05/09/20 09:15 98 30 96/27 (50) 98 05/09/20 09:00 96 32 99/28 (51) 97 05/09/20 08:03 103 36 98/43 (61) 99 05/09/20 08:00 50 05/09/20 08:00 90 33 78/48 (58) 100 05/09/20 08:00 Mechanical Ventilator 05/09/20 08:00 96 05/09/20 07:45 92 37 107/51 (69) 100 05/09/20 07:30 85 36 115/32 (59) 100 05/09/20 07:15 95 30 109/39 (62) 100 05/09/20 07:10 99 42 50 05/09/20 07:00 98.5 86 31 109/40 (63) 99 05/09/20 06:15 88 37 109/31 (57) 100 05/09/20 06:00 85 33 114/29 (57) 100 05/09/20 05:45 92 31 117/31 (59) 100 05/09/20 05:30 92 34 113/34 (60) 100 05/09/20 05:15 94 29 115/33 (60) 99 05/09/20 05:12 88 35 50 05/09/20 05:03 91 31 116/34 (61) 100 05/09/20 04:00 98.0 80 30 118/33 (61) 98 05/09/20 04:00 87 05/09/20 04:00 Mechanical Ventilator 05/09/20 04:00 50 05/09/20 03:00 77 29 120/42 (68) 99 05/09/20 02:56 78 30 50 05/09/20 02:30 78 30 116/37 (63) 99 05/09/20 02:00 76 30 106/35 (58) 98 05/09/20 01:45 79 30 100/29 (52) 98 05/09/20 01:09 79 31 50 05/09/20 01:00 83 30 90/33 (52) 98 05/09/20 00:55 91 34 92/30 98 05/09/20 00:30 91 34 92/30 (50) 98 05/09/20 00:25 90 28 106/37 98 05/09/20 00:23 106/37 05/09/20 00:00 97.8 92 35 110/48 (68) 98 05/09/20 00:00 50 05/09/20 00:00 Mechanical Ventilator 05/09/20 00:00 90 05/08/20 23:00 90 33 95/36 (55) 98 05/08/20 22:47 89 33 50 Intake and Output 05/08/20 05/09/20 19:00 07:00 Intake Total 1705.7563 ml 1865.238 ml Output Total 345 ml 25 ml Balance 1360.7563 ml 1840.238 ml IV Total 1705.7563 ml 1865.238 ml Output Urine Total 165 ml 25 ml Gastric Drainage Total 180 ml # Bowel Movements 4 5 Laboratory Tests 05/09/20 05:30: Sodium Level 139, Potassium Level 3.7#, Chloride Level 108H, Carbon Dioxide Level 21, Anion Gap 10, Blood Urea Nitrogen 40H, Creatinine 2.7H, Estimat Glomerular Filtration Rate 23.0, Glucose Level 96, Calcium Level 7.1L, Phosphorus Level 4.3 05/09/20 07:55: Arterial Blood pH 7.219*L, Arterial Blood Partial Pressure CO2 52.0H, Arterial Blood Partial Pressure O2 58.7L, Arterial Blood HCO3 20.8L, Arterial Blood Oxygen Saturation 84.7*L, Arterial Blood Base Excess -6.9L, Urbano Test [Pending] 05/09/20 08:45: White Blood Count 18.7H, Red Blood Count 2.91L, Hemoglobin 9.9L, Hematocrit 30.5 L, Mean Corpuscular Volume 105H, Mean Corpuscular Hemoglobin 33.9H, Mean Cor puscular Hemoglobin Concent 32.4, Red Cell Distribution Width 21.9H, Platelet Count 145L, Mean Platelet Volume 7.3, Neutrophils (%) (Auto) , Lymphocytes (%) (Auto) , Monocytes (%) (Auto) , Eosinophils (%) (Auto) , Basophils (%) (Auto) , Differential Total Cells Counted 100, Neutrophils % (Manual) 83H, Lymphocytes % (Manual) 2L, Monocytes % (Manual) 2, Eosinophils % (Manual) 2, Basophils % (Manual) 0, Band Neutrophils 11H, Platelet Estimate DecreasedL, Platelet Morphology Normal, Polychromasia Occasional, Hypochromasia 05/09/20 14:08: Arterial Blood pH 7.205*L, Arterial Blood Partial Pressure CO2 55.5*H, Arterial Blood Partial Pressure O2 104.5H, Arterial Blood HCO3 21.5L, Arterial Blood Oxygen Saturation 96.0, Arterial Blood Base Excess -6.6L, Urbano Test Positive Height (Feet): 5 Height (Inches): 7.00 Weight (Pounds): 150 Objective NCAT (+) trach Coarse BS RR abd soft, (+) GT, distended (++) contracted (+) edema Assessment/Plan Status: stable, not improved Assessment/Plan: Assessment - Upper GI bleed - resolved - hypotensive , on pressors - abd distention, suspect ileus - h/o gastric ulcer - anemia - renal failure - resp failure - contractures - Poor prognosis Recommendations - Pressors / supportive care - trial of rectal tube decompression - readdress feeds in am - monitor H&H - IV PPI - transfuse Clive Barajas MD May 09, 2020 22:15
[2020-05-10] VITALS (49 sets, daily range): BP systolic 85–141; BP diastolic 14–85
--- NOTE | 2020-05-10 01:17 | Cardiology Progress Note ---
Subjective DATE OF SERVICE: May 09, 2020 Remains Critical & Guarded On vent support Still requiring pressor support - on norepinephrine with minimal progress in further dose taper over past 24hrs IV thyroid replacement for TSH of 49 - but was unavailable today from pharmacy. Has coffee grounds from [employer]; req'd 2 units of PRBC's 05/05. Renal function remains impaired with poor urine output; patient had HD 05/05 with further sessions per renal. CXR (05/09)worsening infiltrates. Objective Last 24 Hour Vital Signs Date Time Temp Pulse Resp B/P (MAP) Pulse Ox O2 Delivery O2 Flow Rate FiO2 05/10/20 01:03 96 37 50 05/10/20 00:00 50 05/10/20 00:00 95 05/10/20 00:00 Mechanical Ventilator 05/09/20 23:45 99 34 110/28 (55) 97 05/09/20 23:30 104 32 112/26 (54) 96 05/09/20 23:15 105 36 111/36 (61) 96 05/09/20 23:00 108 35 111/12 (45) 96 05/09/20 22:53 95 37 99 Mechanical Ventilator 50 96 38 50 05/09/20 22:45 108 40 149/49 (82) 100 05/09/20 22:30 96 34 109/44 (65) 97 05/09/20 22:15 96 34 118/39 (65) 97 05/09/20 22:00 96 30 109/39 (62) 97 05/09/20 21:45 87 34 115/45 (68) 97 05/09/20 21:30 95 33 115/41 (65) 98 05/09/20 21:15 95 37 120/30 (60) 98 05/09/20 21:00 89 05/09/20 21:00 95 34 117/26 (56) 98 05/09/20 20:49 96 38 50 05/09/20 20:45 94 33 121/31 (61) 98 05/09/20 20:30 93 33 120/29 (59) 98 05/09/20 20:15 91 33 124/29 (60) 97 05/09/20 20:00 50 05/09/20 20:00 98.6 92 33 120/25 (56) 98 05/09/20 20:00 Mechanical Ventilator 05/09/20 19:45 92 31 117/35 (62) 98 05/09/20 19:30 96 33 124/31 (62) 98 05/09/20 19:15 93 33 112/34 (60) 98 05/09/20 19:02 97 37 50 05/09/20 19:00 94 33 128/28 (61) 97 05/09/20 17:45 101 33 116/39 (64) 97 05/09/20 17:30 96 34 100/30 (53) 97 05/09/20 17:15 103 35 99/38 (58) 97 05/09/20 17:00 102 38 106/35 (58) 97 05/09/20 16:54 104 38 50 05/09/20 16:00 50 05/09/20 16:00 98.5 99 32 110/38 (62) 98 05/09/20 16:00 101 05/09/20 16:00 Mechanical Ventilator 05/09/20 15:00 96 39 129/38 (68) 97 05/09/20 15:00 100 39 50 05/09/20 14:00 98 37 127/37 (67) 97 05/09/20 13:35 100 43 50 05/09/20 12:45 96 38 109/46 (67) 97 05/09/20 12:30 95 37 112/34 (60) 96 05/09/20 12:15 95 36 110/40 (63) 97 05/09/20 12:00 50 05/09/20 12:00 88 05/09/20 12:00 Mechanical Ventilator 05/09/20 12:00 98.0 101 33 117/26 (56) 97 05/09/20 11:42 92 35 99 Mechanical Ventilator 50 94 36 50 05/09/20 10:45 82 32 112/35 (60) 98 05/09/20 10:30 79 35 123/48 (73) 98 05/09/20 10:26 122/40 05/09/20 10:15 74 36 122/40 (67) 98 05/09/20 10:00 95 29 117/45 (69) 97 05/09/20 09:45 96 33 103/30 (54) 99 05/09/20 09:30 96 35 98/28 (51) 99 05/09/20 09:23 96 41 50 05/09/20 09:15 98 30 96/27 (50) 98 05/09/20 09:00 96 32 99/28 (51) 97 05/09/20 08:03 103 36 98/43 (61) 99 05/09/20 08:00 50 05/09/20 08:00 90 33 78/48 (58) 100 05/09/20 08:00 Mechanical Ventilator 05/09/20 08:00 96 05/09/20 07:45 92 37 107/51 (69) 100 05/09/20 07:30 85 36 115/32 (59) 100 05/09/20 07:15 95 30 109/39 (62) 100 05/09/20 07:10 99 42 50 05/09/20 07:00 98.5 86 31 109/40 (63) 99 05/09/20 06:15 88 37 109/31 (57) 100 05/09/20 06:00 85 33 114/29 (57) 100 05/09/20 05:45 92 31 117/31 (59) 100 05/09/20 05:30 92 34 113/34 (60) 100 05/09/20 05:15 94 29 115/33 (60) 99 05/09/20 05:12 88 35 50 05/09/20 05:03 91 31 116/34 (61) 100 05/09/20 04:00 98.0 80 30 118/33 (61) 98 05/09/20 04:00 87 05/09/20 04:00 Mechanical Ventilator 05/09/20 04:00 50 05/09/20 03:00 77 29 120/42 (68) 99 05/09/20 02:56 78 30 50 05/09/20 02:30 78 30 116/37 (63) 99 05/09/20 02:00 76 30 106/35 (58) 98 05/09/20 01:45 79 30 100/29 (52) 98 ROS: no change from my admit note. HEENT: Thick Trach secretions RHYTHM: ST LUNGS: bilateral rhonchi CARDIAC: normal rate, regular rhythm, normal S1 and S2 ABDOMEN: normal bowel sounds, soft, no organomegaly, G-Tube intact EXTREMITIES: trace edema, other - obtunded Laboratory Tests Test 05/09/20 05:30 05/09/20 07:55 05/09/20 08:45 05/09/20 14:08 Sodium Level 139 MMOL/L (136-145) Potassium Level 3.7 MMOL/L (3.5-5.1) # Chloride Level 108 MMOL/L (98-107) H Carbon Dioxide Level 21 MMOL/L (21-32) Anion Gap 10 mmol/L (5-15) Blood Urea Nitrogen 40 mg/dL (7-18) H Creatinine 2.7 MG/DL (0.55-1.30) H Estimat Glomerular Filtration Rate 23.0 mL/min (>60) Glucose Level 96 MG/DL (74-106) Calcium Level 7.1 MG/DL (8.5-10.1) L Phosphorus Level 4.3 MG/DL (2.5-4.9) Arterial Blood pH 7.219 (7.350-7.450) 7.205 (7.350-7.450) Arterial Blood Partial Pressure CO2 52.0 mmHg (35.0-45.0) H 55.5 mmHg (35.0-45.0) *H Arterial Blood Partial Pressure O2 58.7 mmHg (75.0-100.0) L 104.5 mmHg (75.0-100.0) H Arterial Blood HCO3 20.8 mmol/L (22.0-26.0) L 21.5 mmol/L (22.0-26.0) L Arterial Blood Oxygen Saturation 84.7 % (95-100) *L 96.0 % (95-100) Arterial Blood Base Excess -6.9 (-2-2) L -6.6 (-2-2) L Urbano Test Pending Positive White Blood Count 18.7 K/UL (4.8-10.8) H Red Blood Count 2.91 M/UL (4.70-6.10) L Hemoglobin 9.9 G/DL (14.2-18.0) L Hematocrit 30.5 % (42.0-52.0) L Mean Corpuscular Volume 105 FL (80-99) H Mean Corpuscular Hemoglobin 33.9 PG (27.0-31.0) H Mean Corpuscular Hemoglobin Concent 32.4 G/DL (32.0-36.0) Red Cell Distribution Width 21.9 % (11.6-14.8) H Platelet Count 145 K/UL (150-450) L Mean Platelet Volume 7.3 FL (6.5-10.1) Neutrophils (%) (Auto) % (45.0-75.0) Lymphocytes (%) (Auto) % (20.0-45.0) Monocytes (%) (Auto) % (1.0-10.0) Eosinophils (%) (Auto) % (0.0-3.0) Basophils (%) (Auto) % (0.0-2.0) Differential Total Cells Counted 100 Neutrophils % (Manual) 83 % (45-75) H Lymphocytes % (Manual) 2 % (20-45) L Monocytes % (Manual) 2 % (1-10) Eosinophils % (Manual) 2 % (0-3) Basophils % (Manual) 0 % (0-2) Band Neutrophils 11 % (0-8) H Platelet Estimate Decreased L Platelet Morphology Normal Polychromasia Occasional Hypochromasia Assessment/Plan Assessment/Plan Shock Sepsis [facility] PNA Leukocytosis GI bleeding Anemia Hypokalemia Ventilator dep respiratory failure Severe protein calorie malnutrition Ac/chronic diastolic CHF Acute renal failure now on HD. Chronic encephalopathy Metabolic acidosis Pressor support with taper discussed with nursing staff. Vent support Antimicrobials IV thyroid replacement IVF; cautious K+ suppl with renal failure. Consider PRBC transfusion for recurrent bleeding; holding all anti-plt and anti- coagulants. DVT prophylaxis Add'l dialysis per renal Defer EGD until off pressors Franko Pineda MD May 10, 2020 01:17
[2020-05-10 05:11] LABS: HEMATOCRIT 29.1 % (42.0-52.0); HEMOGLOBIN 9.4 G/DL (14.2-18.0); MEAN CORPUSCULAR VOLUME 106 FL (80-99); PLATELET COUNT 103 K/UL (150-450); RED BLOOD COUNT 2.75 M/UL (4.70-6.10); RED CELL DISTRIBUTION WIDTH 21.3 % (11.6-14.8); WHITE BLOOD COUNT 15.4 K/UL (4.8-10.8)
[2020-05-10 06:56] LABS: ALBUMIN 1.3 G/DL (3.4-5.0); ALBUMIN/GLOBULIN RATIO 0.2 (1.0-2.7); BILIRUBIN,TOTAL 0.3 MG/DL (0.2-1.0); CALCIUM 6.8 MG/DL (8.5-10.1); CREATININE 3.1 MG/DL (0.55-1.30)
--- NOTE | 2020-05-10 07:28 | General Progress Note ---
Subjective ROS Limited/Unobtainable: No Constitutional: Reports: malaise, weakness HEENT: Reports: no symptoms Cardiovascular: Reports: no symptoms Respiratory: Reports: cough, shortness of breath Gastrointestinal/Abdominal: Reports: difficulty swallowing Neurologic/Psychiatric: Reports: pre-existing deficit, seizure Endocrine: Reports: no symptoms Hematologic/Lymphatic: Reports: anemia Allergies: Coded Allergies: No Known Allergies (Unverified , 02/23/12) All Systems: reviewed and negative except above Subjective off pressors. remains on iv abx, uop poor. stable on the vent. labs reviewed. no reports of bleeding. Objective Last 24 Hour Vital Signs Date Time Temp Pulse Resp B/P (MAP) Pulse Ox O2 Delivery O2 Flow Rate FiO2 05/10/20 06:00 88 32 99/31 (53) 99 05/10/20 05:00 92 30 104/24 (50) 100 05/10/20 04:35 87 31 50 05/10/20 04:30 92 31 104/30 (54) 98 05/10/20 04:00 98.6 102 20 109/77 (88) 96 05/10/20 04:00 88 05/10/20 04:00 Mechanical Ventilator 05/10/20 04:00 50 05/10/20 03:30 100 34 111/33 (59) 98 05/10/20 03:00 96 31 96/21 (46) 98 05/10/20 02:50 98 36 50 05/10/20 02:30 100 35 101/41 (61) 98 05/10/20 02:00 98 35 108/29 (55) 98 05/10/20 01:30 96 34 111/31 (57) 98 05/10/20 01:03 96 37 50 05/10/20 01:00 97 30 120/43 (68) 100 05/10/20 00:00 50 05/10/20 00:00 95 05/10/20 00:00 Mechanical Ventilator 05/09/20 23:45 99 34 110/28 (55) 97 05/09/20 23:30 104 32 112/26 (54) 96 05/09/20 23:15 105 36 111/36 (61) 96 05/09/20 23:00 108 35 111/12 (45) 96 05/09/20 22:53 95 37 99 Mechanical Ventilator 50 96 38 50 05/09/20 22:45 108 40 149/49 (82) 100 05/09/20 22:30 96 34 109/44 (65) 97 05/09/20 22:15 96 34 118/39 (65) 97 05/09/20 22:00 96 30 109/39 (62) 97 05/09/20 21:45 87 34 115/45 (68) 97 05/09/20 21:30 95 33 115/41 (65) 98 05/09/20 21:15 95 37 120/30 (60) 98 05/09/20 21:00 89 05/09/20 21:00 95 34 117/26 (56) 98 05/09/20 20:49 96 38 50 05/09/20 20:45 94 33 121/31 (61) 98 05/09/20 20:30 93 33 120/29 (59) 98 05/09/20 20:15 91 33 124/29 (60) 97 05/09/20 20:00 50 05/09/20 20:00 98.6 92 33 120/25 (56) 98 05/09/20 20:00 Mechanical Ventilator 05/09/20 19:45 92 31 117/35 (62) 98 05/09/20 19:30 96 33 124/31 (62) 98 05/09/20 19:15 93 33 112/34 (60) 98 05/09/20 19:02 97 37 50 05/09/20 19:00 94 33 128/28 (61) 97 05/09/20 17:45 101 33 116/39 (64) 97 05/09/20 17:30 96 34 100/30 (53) 97 05/09/20 17:15 103 35 99/38 (58) 97 05/09/20 17:00 102 38 106/35 (58) 97 05/09/20 16:54 104 38 50 05/09/20 16:00 50 05/09/20 16:00 98.5 99 32 110/38 (62) 98 05/09/20 16:00 101 05/09/20 16:00 Mechanical Ventilator 05/09/20 15:00 96 39 129/38 (68) 97 05/09/20 15:00 100 39 50 05/09/20 14:00 98 37 127/37 (67) 97 05/09/20 13:35 100 43 50 05/09/20 12:45 96 38 109/46 (67) 97 05/09/20 12:30 95 37 112/34 (60) 96 05/09/20 12:15 95 36 110/40 (63) 97 05/09/20 12:00 50 05/09/20 12:00 88 05/09/20 12:00 Mechanical Ventilator 05/09/20 12:00 98.0 101 33 117/26 (56) 97 05/09/20 11:42 92 35 99 Mechanical Ventilator 50 94 36 50 05/09/20 10:45 82 32 112/35 (60) 98 05/09/20 10:30 79 35 123/48 (73) 98 05/09/20 10:26 122/40 05/09/20 10:15 74 36 122/40 (67) 98 05/09/20 10:00 95 29 117/45 (69) 97 05/09/20 09:45 96 33 103/30 (54) 99 05/09/20 09:30 96 35 98/28 (51) 99 05/09/20 09:23 96 41 50 05/09/20 09:15 98 30 96/27 (50) 98 05/09/20 09:00 96 32 99/28 (51) 97 05/09/20 08:03 103 36 98/43 (61) 99 05/09/20 08:00 50 05/09/20 08:00 90 33 78/48 (58) 100 05/09/20 08:00 Mechanical Ventilator 05/09/20 08:00 96 05/09/20 07:45 92 37 107/51 (69) 100 05/09/20 07:30 85 36 115/32 (59) 100 Intake and Output 05/09/20 05/10/20 19:00 07:00 Intake Total 1500.0 ml 1320.0 ml Output Total 10 ml 125 ml Balance 1490.0 ml 1195.0 ml IV Total 1500.0 ml 1320.0 ml Output Urine Total 5 ml 75 ml Stool Total 50 ml Gastric Drainage Total 5 ml Laboratory Tests 05/09/20 07:55: Arterial Blood pH 7.219*L, Arterial Blood Partial Pressure CO2 52.0H, Arterial Blood Partial Pressure O2 58.7L, Arterial Blood HCO3 20.8L, Arterial Blood Oxygen Saturation 84.7*L, Arterial Blood Base Excess -6.9L, Urbano Test [Pending] 05/09/20 08:45: White Blood Count 18.7H, Red Blood Count 2.91L, Hemoglobin 9.9L, Hematocrit 30.5L, Mean Corpuscular Volume 105H, Mean Corpuscular Hemoglobin 33.9H, Mean Corpuscular Hemoglobin Concent 32.4, Red Cell Distribution Width 21.9H, Platelet Count 145L, Mean Platelet Volume 7.3, Neutrophils (%) (Auto) , Lymphocytes (%) (Auto) , Monocytes (%) (Auto) , Eosinophils (%) (Auto) , Basophils (%) (Auto) , Differential Total Cells Counted 100, Neutrophils % (Manual) 83H, Lymphocytes % (Manual) 2L, Monocytes % (Manual) 2, Eosinophils % (Manual) 2, Basophils % (Manual) 0, Band Neutrophils 11H, Platelet Estimate DecreasedL, Platelet Morphology Normal, Polychromasia Occasional, Hypochromasia 05/09/20 14:08: Arterial Blood pH 7.205*L, Arterial Blood Partial Pressure CO2 55.5*H, Arterial Blood Partial Pressure O2 104.5H, Arterial Blood HCO3 21.5L, Arterial Blood Oxygen Saturation 96.0, Arterial Blood Base Excess -6.6L, Urbano Test Positive 05/10/20 02:50: White Blood Count 15.4H, Red Blood Count 2.75L, Hemoglobin 9.4L, Hematocrit 29.1L, Mean Corpuscular Volume 106H, Mean Corpuscular Hemoglobin 34.1H, Mean Corpuscular Hemoglobin Concent 32.2, Red Cell Distribution Width 21.3H, Platelet Count 103L, Mean Platelet Volume 7.6, Neutrophils (%) (Auto) , Lymphocytes (%) (Auto) , Monocytes (%) (Auto) , Eosinophils (%) (Auto) , Basophils (%) (Auto) , Neutrophils % (Manual) [Pending], Lymphocytes % (Manual) [Pending], Platelet Estimate [Pending], Platelet Morphology [Pending], Sodium Level 141, Potassium Level 3.0L, Chloride Level 109H, Carbon Dioxide Level 20L, Anion Gap 12, Blood Urea Nitrogen 43H, Creatinine 3.1H, Estimat Glomerular Filtration Rate 19.6, Glucose Level 72L, Calcium Level 6.8L, Total Bilirubin 0.3, Aspartate Amino Tra nsf (AST/SGOT) 20, Alanine Aminotransferase (ALT/SGPT) 6L, Alkaline Phosphatase 100, Total Protein 6.5, Albumin 1.3L, Globulin 5.2, Albumin/Globulin Ratio 0.2L Height (Feet): 5 Height (Inches): 7.00 Weight (Pounds): 150 Objective General Appearance: WD/WN, lethargic, confused EENT: PERRL/EOMI, normal ENT inspection Neck: normal alignment, supple Cardiovascular: normal rate Respiratory/Chest: chest wall non-tender, lungs clear, crackles/rales, rhonchi - bilaterally Abdomen: normal bowel sounds, non tender, soft, no organomegaly Edema: no edema noted Arm (L), no edema noted Arm (R) Neurologic: disoriented, unresponsive, aphasia Skin: normal pigmentation Assessment/Plan Problem List: (1) Dehydration ICD Codes: E86.0 - Dehydration SNOMED: 72522454 (2) Ventilator associated pneumonia ICD Codes: J95.851 - Ventilator associated pneumonia SNOMED: 497187437, 02880264 (3) AUDREY (acute kidney injury) ICD Codes: N17.9 - Acute kidney failure, unspecified SNOMED: 1864405, 19702510 (4) Anemia ICD Codes: D64.9 - Anemia, unspecified SNOMED: 837168588, 974393756 (5) HCAP (healthcare-associated pneumonia) ICD Codes: J18.9 - Pneumonia, unspecified organism SNOMED: 573825937, 782433613 (6) CKD (chronic kidney disease) stage 3, GFR 30-59 ml/min ICD Codes: N18.3 - Chronic kidney disease, stage 3 (moderate) SNOMED: 553786995 (7) GIB (gastrointestinal bleeding) ICD Codes: K92.2 - Gastrointestinal hemorrhage, unspecified SNOMED: 20996420 (8) ARF (acute renal failure) ICD Codes: N17.9 - Acute kidney failure, unspecified SNOMED: 83178846, 707561440 (9) Pneumonia ICD Codes: J18.9 - Pneumonia, unspecified organism SNOMED: 949178878 (10) UTI (urinary tract infection) ICD Codes: N39.0 - Urinary tract infection, site not specified SNOMED: 88300297, 417029407 (11) Sepsis ICD Codes: A41.9 - Sepsis, unspecified organism SNOMED: 90778548 (12) Respiratory failure ICD Codes: J96.90 - Respiratory failure, unspecified, unspecified whether with hypoxia or hypercapnia SNOMED: 559397242 Status: stable, not improved Assessment/Plan: HD per renal pressors as needed IV abx per ID vent support resp rx monitor cxr- increased infil monitor abg. adjust vent monitor h/h transfuse as needed wound care turn q2 dvt/stress ulcer prophylaxis tube feeds monitor residuals cont keppra for sz prn ativan for szs critical and guarded Jimi Tellez MD May 10, 2020 07:28
[2020-05-10] MEDS: Norepinephrine 4mg/NS Premix 250 ML IV SCH (09:00)
[2020-05-10] MEDS: Colistin for inhalation INH SCH (10:54)
--- NOTE | 2020-05-10 11:16 | Infectious Diseases Prog Note ---
"Assessment/Plan Assessment/Plan antibiotics : linezolid, inhaled colistin A 1. klebsiella pneumonia 2. MRSA | coag neg staph sepsis 3. renal failure 4. respiratory failure 5. seizures 6. CVA 7. CHF 8. shock 9, leucocytosis improving P 1. continue linezolid 6 more days 2. d/c inhaled colistin 3. will follow up cultures Subjective ROS Limited/Unobtainable: Yes Allergies: Coded Allergies: No Known Allergies (Unverified , 02/23/12) Objective Last 24 Hour Vital Signs Date Time Temp Pulse Resp B/P (MAP) Pulse Ox O2 Delivery O2 Flow Rate FiO2 05/10/20 11:04 98 40 50 05/10/20 11:00 75 34 114/30 (58) 96 05/10/20 10:30 93 30 131/43 (72) 100 05/10/20 10:15 96 30 110/27 (54) 99 05/10/20 10:00 83 30 107/28 (54) 99 05/10/20 09:45 85 30 104/27 (52) 99 05/10/20 09:30 90 29 105/23 (50) 99 05/10/20 09:25 89 42 50 05/10/20 09:15 84 30 104/34 (57) 99 05/10/20 09:00 50 05/10/20 09:00 88/29 05/10/20 09:00 86 30 88/29 (48) 98 05/10/20 08:00 Mechanical Ventilator 05/10/20 08:00 98.0 89 28 105/38 (60) 98 05/10/20 08:00 94 05/10/20 07:06 91 37 50 05/10/20 07:00 91 96/26 (49) 05/10/20 06:00 88 32 99/31 (53) 99 05/10/20 05:00 92 30 104/24 (50) 100 05/10/20 04:35 87 31 50 05/10/20 04:30 92 31 104/30 (54) 98 05/10/20 04:00 98.6 102 20 109/77 (88) 96 05/10/20 04:00 88 05/10/20 04:00 Mechanical Ventilator 05/10/20 04:00 50 05/10/20 03:30 100 34 111/33 (59) 98 05/10/20 03:00 96 31 96/21 (46) 98 05/10/20 02:50 98 36 50 05/10/20 02:30 100 35 101/41 (61) 98 05/10/20 02:00 98 35 108/29 (55) 98 05/10/20 01:30 96 34 111/31 (57) 98 05/10/20 01:03 96 37 50 05/10/20 01:00 97 30 120/43 (68) 100 05/10/20 00:00 50 05/10/20 00:00 95 05/10/20 00:00 Mechanical Ventilator 05/09/20 23:45 99 34 110/28 (55) 97 05/09/20 23:30 104 32 112/26 (54) 96 05/09/20 23:15 105 36 111/36 (61) 96 05/09/20 23:00 108 35 111/12 (45) 96 05/09/20 22:53 95 37 99 Mechanical Ventilator 50 96 38 50 05/09/20 22:45 108 40 149/49 (82) 100 05/09/20 22:30 96 34 109/44 (65) 97 05/09/20 22:15 96 34 118/39 (65) 97 05/09/20 22:00 96 30 109/39 (62) 97 05/09/20 21:45 87 34 115/45 (68) 97 05/09/20 21:30 95 33 115/41 (65) 98 05/09/20 21:15 95 37 120/30 (60) 98 05/09/20 21:00 89 05/09/20 21:00 95 34 117/26 (56) 98 05/09/20 20:49 96 38 50 05/09/20 20:45 94 33 121/31 (61) 98 05/09/20 20:30 93 33 120/29 (59) 98 05/09/20 20:15 91 33 124/29 (60) 97 05/09/20 20:00 50 05/09/20 20:00 98.6 92 33 120/25 (56) 98 05/09/20 20:00 Mechanical Ventilator 05/09/20 19:45 92 31 117/35 (62) 98 05/09/20 19:30 96 33 124/31 (62) 98 05/09/20 19:15 93 33 112/34 (60) 98 05/09/20 19:02 97 37 50 05/09/20 19:00 94 33 128/28 (61) 97 05/09/20 17:45 101 33 116/39 (64) 97 05/09/20 17:30 96 34 100/30 (53) 97 05/09/20 17:15 103 35 99/38 (58) 97 05/09/20 17:00 102 38 106/35 (58) 97 05/09/20 16:54 104 38 50 05/09/20 16:00 50 05/09/20 16:00 98.5 99 32 110/38 (62) 98 05/09/20 16:00 101 05/09/20 16:00 Mechanical Ventilator 05/09/20 15:00 96 39 129/38 (68) 97 05/09/20 15:00 100 39 50 05/09/20 14:00 98 37 127/37 (67) 97 05/09/20 13:35 100 43 50 05/09/20 12:45 96 38 109/46 (67) 97 05/09/20 12:30 95 37 112/34 (60) 96 05/09/20 12:15 95 36 110/40 (63) 97 05/09/20 12:00 50 05/09/20 12:00 88 05/09/20 12:00 Mechanical Ventilator 05/09/20 12:00 98.0 101 33 117/26 (56) 97 05/09/20 11:42 92 35 99 Mechanical Ventilator 50 94 36 50 Height (Feet): 5 Height (Inches): 7.00 Weight (Pounds): 150 HEENT: status post trach Respiratory/Chest: lungs clear Cardiovascular: normal rate, regular rhythm, no gallop/murmur Abdomen: soft, non tender, other - GT Extremities: other - + edema, right IJ catheter, left groin catheter Laboratory Tests Test 05/09/20 14:08 05/10/20 02:50 Arterial Blood pH 7.205 (7.350-7.450) Arterial Blood Partial Pressure CO2 55.5 mmHg (35.0-45.0) *H Arterial Blood Partial Pressure O2 104.5 mmHg (75.0-100.0) H Arterial Blood HCO3 21.5 mmol/L (22.0-26.0) L Arterial Blood Oxygen Saturation 96.0 % (95-100) Arterial Blood Base Excess -6.6 (-2-2) L Urbano Test Positive White Blood Count 15.4 K/UL (4.8-10.8) H Red Blood Count 2.75 M/UL (4.70-6.10) L Hemoglobin 9.4 G/DL (14.2-18.0) L Hematocrit 29.1 % (42.0-52.0) L Mean Corpuscular Volume 106 FL (80-99) H Mean Corpuscular Hemoglobin 34.1 PG (27.0-31.0) H Mean Corpuscular Hemoglobin Concent 32.2 G/DL (32.0-36.0) Red Cell Distribution Width 21.3 % (11.6-14.8) H Platelet Count 103 K/UL (150-450) L Mean Platelet Volume 7.6 FL (6.5-10.1) Neutrophils (%) (Auto) % (45.0-75.0) Lymphocytes (%) (Auto) % (20.0-45.0) Monocytes (%) (Auto) % (1.0-10.0) Eosinophils (%) (Auto) % (0.0-3.0) Basophils (%) (Auto) % (0.0-2.0) Differential Total Cells Counted 100 Neutrophils % (Manual) 86 % (45-75) H Lymphocytes % (Manual) 10 % (20-45) L Monocytes % (Manual) 2 % (1-10) Eosinophils % (Manual) 2 % (0-3) Basophils % (Manual) 0 % (0-2) Band Neutrophils 0 % (0-8) Platelet Estimate Decreased L Platelet Morphology Normal Hypochromasia 1+ Anisocytosis 1+ Macrocytosis 1+ Sodium Level 141 MMOL/L (136-145) Potassium Level 3.0 MMOL/L (3.5-5.1) L Chloride Level 109 MMOL/L (98-107) H Carbon Dioxide Level 20 MMOL/L (21-32) L Anion Gap 12 mmol/L (5-15) Blood Urea Nitrogen 43 mg/dL (7-18) H Creatinine 3.1 MG/DL (0.55-1.30) H Estimat Glomerular Filtration Rate 19.6 mL/min (>60) Glucose Level 72 MG/DL (74-106) L Calcium Level 6.8 MG/DL (8.5-10.1) L Total Bilirubin 0.3 MG/DL (0.2-1.0) Aspartate Amino Transf (AST/SGOT) 20 U/L (15-37) Alanine Aminotransferase (ALT/SGPT) 6 U/L (12-78) L Alkaline Phosphatase 100 U/L (46-116) Total Protein 6.5 G/DL (6.4-8.2) Albumin 1.3 G/DL (3.4-5.0) L Globulin 5.2 g/dL Albumin/Globulin Ratio 0.2 (1.0-2.7) L Current Medications Medications (Trade) Dose Ordered Sig/Lanny Route PRN Reason Start Time Stop Time Status Last Admin Dose Admin Acetaminophen (Tylenol) 650 mg Q4H PRN NG fever pain 05/03/20 21:30 06/02/20 21:29 Chlorhexidine Gluconate (Kayla-Hex 2%) 1 applic DAILY@1999 TOPIC 05/04/20 20:00 08/02/20 19:59 05/09/20 20:38 Clonidine HCl (Catapres Tab) 0.1 mg Q4H PRN GT SBP above 150 05/03/20 21:30 08/01/20 21:29 Colistimethate Sodium (Colistin *inhalation use only*) 75 mg Q12HR@10,22 INH 05/06/20 22:00 05/13/20 21:59 05/10/20 10:54 Dextrose/Sodium Chloride 1,000 ml @ 50 mls/hr Q20H IV 05/06/20 11:00 06/05/20 10:59 05/09/20 18:34 Epoetin Asaf (Epoetin Asaf-EPBX(NON ESRD)) 10,000 unit FRI-FRI-FRI SUBQ 05/05/20 21:00 08/03/20 20:59 05/08/20 21:05 Heparin Sodium (Porcine) (Heparin Sod 1000 units/ml 10ml) 2,000 unit ONCE PRN IV FOR HD USE ONLY 05/09/20 15:00 05/10/20 23:59 Heparin Sodium (Porcine) (Heparin) 1,000 unit POSTHD PRN INJ FOR HD USE ONLY 05/09/20 15:00 05/10/20 14:59 Levetiracetam 750 mg/Dextrose 102.5 ml @ 440 mls/hr Q12HR IV 05/08/20 21:00 06/07/20 20:59 05/09/20 20:38 Levothyroxine Sodium (Synthroid) 100 mcg DAILY IV 05/05/20 09:00 06/03/20 10:59 05/09/20 09:35 Linezolid 300 ml @ 300 mls/hr Q12HR IVPB 05/05/20 13:00 05/12/20 12:59 05/09/20 20:39 Lorazepam (Ativan 2mg/ml 1ml) 1 mg Q4H PRN IV For Seizures 05/07/20 09:15 05/14/20 09:14 05/09/20 00:25 Midodrine (Pro-Amatine) 5 mg TID ORAL 05/05/20 09:00 08/03/20 08:59 05/10/20 09:59 Norepinephrine Bitartrate 250 ml @ 0 mls/hr Q24H IV 05/08/20 03:45 05/11/20 03:32 05/10/20 09:00 Pantoprazole (Protonix) 40 mg EVERY 12 HOURS IVP 05/04/20 21:00 06/03/20 20:59 05/09/20 20:39 Sodium Chloride 1,000 ml @ 500 mls/hr Q2H PRN IVLG sbp<90 during hd 05/09/20 15:00 05/10/20 23:59 Isaak Hair MD May 10, 2020 11:16"
[2020-05-10] MEDS: Pantoprazole Inj IVP SCH ×2 (13:31→21:50)
[2020-05-10] MEDS: levETIRAcetam 750 MG in D5W 95 ML IV SCH ×2 (13:31→21:50)
[2020-05-10] MEDS: D5NS 1,000 ML IV SCH (13:32)
--- NOTE | 2020-05-10 13:51 | Diagnostic Imaging Report ---
Indication: Abdominal distention Technique: Supine view of the abdomen Comparison: 05/09/2020 Findings: Again demonstrated is diffuse gaseous distention of small bowel, degree of distention appearing slightly increased from the previous exam. Left groin central venous catheter is again demonstrated Impression: Increased small bowel distention, likely ongoing ileus or enteritis, but the possibility of worsening small bowel obstruction should also be considered. Dr. Geronimo notified at the time of interpretation
--- NOTE | 2020-05-10 13:55 | Diagnostic Imaging Report ---
Indication: Shortness of breath Technique: One view of the chest Comparison: 05/09/2020 Findings: Suboptimal inspiration again noted. Tracheostomy again demonstrated. There is increasing dense consolidation in the right mid and lower lung. Dense consolidation at the left lung base and small bilateral pleural effusions persist. Impression: Worsening infiltrate in the right lung, over one day Other stable findings as noted
--- NOTE | 2020-05-10 14:01 | Critical Care Progress Note ---
Assessment/Plan Assessment/Plan IMPRESSION: Respiratory failure chronic, chronic encephalopathy, sepsis, leukocytosis, G-tube, aspiration, acute on chronic renal failure, electrolyte abnormality, failure to thrive, severe protein-calorie malnutrition, chronic CO2 retention; Hypoxemia, worsening acidemia, tachypnea RECOMMENDATIONS: Care noted; placed on 100%- ABG noted and will taper oxygen; on midodrine and pressors as needed; feeds per gi- monitor protein levels and t ry to start feeds; Supportive care. IV antibiotics and adjust and discuss. Respiratory support and vent management- taper oxygen needs as able, monitor acid base and hyperventilate residential medications. Monitor clinically. Prognosis is overall poor for meaningful recovery . monitor labs and adjust therapy; on HD renal ID cardiology; await further recommendations and stabilization medications/laboratory data/nursing notes/ICU care reviewed in detail note reviewed and edited care discussed with RN and RT ICU time spent >40 minutes Critical Care - Subjective ROS Limited/Unobtainable: Yes Condition: critical EKG Rhythm: Sinus Rhythm I&O: Intake and Output 05/09/20 05/10/20 19:00 07:00 Intake Total 1500.0 ml 1370.0 ml Output Total 10 ml 125 ml Balance 1490.0 ml 1245.0 ml IV Total 1500.0 ml 1370.0 ml Output Urine Total 5 ml 75 ml Stool Total 50 ml Gastric Drainage Total 5 ml Critical Care - Objective Last 24 Hour Vital Signs Date Time Temp Pulse Resp B/P (MAP) Pulse Ox O2 Delivery O2 Flow Rate FiO2 05/10/20 13:00 96 35 128/23 (58) 100 05/10/20 12:56 98 37 80 05/10/20 12:30 94 37 118/14 (48) 100 05/10/20 12:29 Mechanical Ventilator Mechanical Ventilator Mechanical Ventilator 05/10/20 12:00 98.4 90 37 116/50 (72) 100 05/10/20 12:00 100 05/10/20 11:30 97 39 103/65 (78) 98 05/10/20 11:25 100 05/10/20 11:04 98 40 50 05/10/20 11:00 75 34 114/30 (58) 96 05/10/20 10:30 93 30 131/43 (72) 100 05/10/20 10:15 96 30 110/27 (54) 99 05/10/20 10:00 83 30 107/28 (54) 99 05/10/20 09:45 85 30 104/27 (52) 99 05/10/20 09:30 90 29 105/23 (50) 99 05/10/20 09:25 89 42 50 05/10/20 09:15 84 30 104/34 (57) 99 05/10/20 09:00 88/29 05/10/20 09:00 86 30 88/29 (48) 98 05/10/20 08:00 Mechanical Ventilator 05/10/20 08:00 98.0 89 28 105/38 (60) 98 05/10/20 08:00 94 05/10/20 08:00 50 05/10/20 07:06 91 37 50 05/10/20 07:00 91 96/26 (49) 05/10/20 06:00 88 32 99/31 (53) 99 05/10/20 05:00 92 30 104/24 (50) 100 05/10/20 04:35 87 31 50 05/10/20 04:30 92 31 104/30 (54) 98 05/10/20 04:00 98.6 102 20 109/77 (88) 96 05/10/20 04:00 88 05/10/20 04:00 Mechanical Ventilator 05/10/20 04:00 50 05/10/20 03:30 100 34 111/33 (59) 98 05/10/20 03:00 96 31 96/21 (46) 98 05/10/20 02:50 98 36 50 05/10/20 02:30 100 35 101/41 (61) 98 05/10/20 02:00 98 35 108/29 (55) 98 05/10/20 01:30 96 34 111/31 (57) 98 05/10/20 01:03 96 37 50 05/10/20 01:00 97 30 120/43 (68) 100 05/10/20 00:00 50 05/10/20 00:00 95 05/10/20 00:00 Mechanical Ventilator 05/09/20 23:45 99 34 110/28 (55) 97 05/09/20 23:30 104 32 112/26 (54) 96 05/09/20 23:15 105 36 111/36 (61) 96 05/09/20 23:00 108 35 111/12 (45) 96 11/10/20 22:53 95 37 99 Mechanical Ventilator 50 96 38 50 05/09/20 22:45 108 40 149/49 (82) 100 05/09/20 22:30 96 34 109/44 (65) 97 05/09/20 22:15 96 34 118/39 (65) 97 05/09/20 22:00 96 30 109/39 (62) 97 05/09/20 21:45 87 34 115/45 (68) 97 05/09/20 21:30 95 33 115/41 (65) 98 05/09/20 21:15 95 37 120/30 (60) 98 05/09/20 21:00 89 05/09/20 21:00 95 34 117/26 (56) 98 05/09/20 20:49 96 38 50 05/09/20 20:45 94 33 121/31 (61) 98 05/09/20 20:30 93 33 120/29 (59) 98 05/09/20 20:15 91 33 124/29 (60) 97 05/09/20 20:00 50 05/09/20 20:00 98.6 92 33 120/25 (56) 98 05/09/20 20:00 Mechanical Ventilator 05/09/20 19:45 92 31 117/35 (62) 98 05/09/20 19:30 96 33 124/31 (62) 98 05/09/20 19:15 93 33 112/34 (60) 98 05/09/20 19:02 97 37 50 05/09/20 19:00 94 33 128/28 (61) 97 05/09/20 17:45 101 33 116/39 (64) 97 05/09/20 17:30 96 34 100/30 (53) 97 05/09/20 17:15 103 35 99/38 (58) 97 05/09/20 17:00 102 38 106/35 (58) 97 05/09/20 16:54 104 38 50 05/09/20 16:00 50 05/09/20 16:00 98.5 99 32 110/38 (62) 98 05/09/20 16:00 101 05/09/20 16:00 Mechanical Ventilator 05/09/20 15:00 96 39 129/38 (68) 97 05/09/20 15:00 100 39 50 05/09/20 14:00 98 37 127/37 (67) 97 Labs: Laboratory Tests 05/09/20 14:08: Arterial Blood pH 7.205*L, Arterial Blood Partial Pressure CO2 55.5*H, Arterial Blood Partial Pressure O2 104.5H, Arterial Blood HCO3 21.5L, Arterial Blood Oxygen Saturation 96.0, Arterial Blood Base Excess -6.6L, Urbano Test Positive 05/10/20 02:50: White Blood Count 15.4H, Red Blood Count 2.75L, Hemoglobin 9.4L, Hematocrit 29.1L, Mean Corpuscular Volume 106H, Mean Corpuscular Hemoglobin 34.1H, Mean Corpuscular Hemoglobin Concent 32.2, Red Cell Distribution Width 21.3H, Platelet Count 103L, Mean Platelet Volume 7.6, Neutrophils (%) (Auto) , Lymphocytes (%) (Auto) , Monocytes (%) (Auto) , Eosinophils (%) (Auto) , Basophils (%) (Auto) , Differential Total Cells Counted 100, Neutrophils % (Manual) 86H, Lymphocytes % (Manual) 10L, Monocytes % (Manual) 2, Eosinophils % (Manual) 2, Basophils % (Manual) 0, Band Neutrophils 0, Platelet Estimate DecreasedL, Platelet Morp hology Normal, Hypochromasia 1+, Anisocytosis 1+, Macrocytosis 1+, Sodium Level 141, Potassium Level 3.0L, Chloride Level 109H, Carbon Dioxide Level 20L, Anion Gap 12, Blood Urea Nitrogen 43H, Creatinine 3.1H, Estimat Glomerular Filtration Rate 19.6, Glucose Level 72L, Calcium Level 6.8L, Phosphorus Level 4.2, Total Bilirubin 0.3, Aspartate Amino Transf (AST/SGOT) 20, Alanine Aminotransferase (ALT/SGPT) 6L, Alkaline Phosphatase 100, Total Protein 6.5, Albumin 1.3L, Globulin 5.2, Albumin/Globulin Ratio 0.2L 05/10/20 12:34: Arterial Blood pH 7.374, Arterial Blood Partial Pressure CO2 41.7, Arterial Blood Partial Pressure O2 242.8H, Arterial Blood HCO3 23.8, Arterial Blood Oxygen Saturation 99.7, Arterial Blood Base Excess -1.4, Urbano Test Positive Objective: WDWN NAD reduced breath sounds bilaterally reduced rhonchi [id number] without MRG NABS nontender GT no CCE significant contractures nonfocal obtunded trach in place Vent skin noted Accucheck: 95 Mansoor Martinez MD May 10, 2020 14:01
--- NOTE | 2020-05-10 14:29 | Nephrology Progress Note ---
Assessment/Plan Plan Septic Shock MOF with Oliguric ARF. HD dependent. See orders. JACLYN RN. HD MWF. Ileus resolving. TF started. Subjective Subjective Obtunded. Had HD with hypotensive episodes. Only 1 L UF. Objective Objective Last 24 Hour Vital Signs Date Time Temp Pulse Resp B/P (MAP) Pulse Ox O2 Delivery O2 Flow Rate FiO2 05/10/20 14:00 99 29 100/17 (44) 100 05/10/20 13:45 99 30 115/17 (49) 100 05/10/20 13:30 99 31 121/21 (54) 100 05/10/20 13:15 93 26 141/23 (62) 100 05/10/20 13:00 96 35 128/23 (58) 100 05/10/20 12:56 98 37 80 05/10/20 12:30 94 37 118/14 (48) 100 05/10/20 12:29 Mechanical Ventilator Mechanical Ventilator Mechanical Ventilator 05/10/20 12:00 98.4 90 37 116/50 (72) 100 05/10/20 12:00 100 05/10/20 11:30 97 39 103/65 (78) 98 05/10/20 11:25 100 05/10/20 11:04 98 40 50 05/10/20 11:00 75 34 114/30 (58) 96 05/10/20 10:30 93 30 131/43 (72) 100 05/10/20 10:15 96 30 110/27 (54) 99 05/10/20 10:00 83 30 107/28 (54) 99 05/10/20 09:45 85 30 104/27 (52) 99 05/10/20 09:30 90 29 105/23 (50) 99 05/10/20 09:25 89 42 50 05/10/20 09:15 84 30 104/34 (57) 99 05/10/20 09:00 88/29 05/10/20 09:00 86 30 88/29 (48) 98 05/10/20 08:00 Mechanical Ventilator 05/10/20 08:00 98.0 89 28 105/38 (60) 98 05/10/20 08:00 94 05/10/20 08:00 50 05/10/20 07:06 91 37 50 05/10/20 07:00 91 96/26 (49) 05/10/20 06:00 88 32 99/31 (53) 99 05/10/20 05:00 92 30 104/24 (50) 100 05/10/20 04:35 87 31 50 05/10/20 04:30 92 31 104/30 (54) 98 05/10/20 04:00 98.6 102 20 109/77 (88) 96 05/10/20 04:00 88 05/10/20 04:00 Mechanical Ventilator 05/10/20 04:00 50 05/10/20 03:30 100 34 111/33 (59) 98 05/10/20 03:00 96 31 96/21 (46) 98 05/10/20 02:50 98 36 50 05/10/20 02:30 100 35 101/41 (61) 98 05/10/20 02:00 98 35 108/29 (55) 98 05/10/20 01:30 96 34 111/31 (57) 98 05/10/20 01:03 96 37 50 05/10/20 01:00 97 30 120/43 (68) 100 05/10/20 00:00 50 05/10/20 00:00 95 05/10/20 00:00 Mechanical Ventilator 05/09/20 23:45 99 34 110/28 (55) 97 05/09/20 23:30 104 32 112/26 (54) 96 05/09/20 23:15 105 36 111/36 (61) 96 05/09/20 23:00 108 35 111/12 (45) 96 05/09/20 22:53 95 37 99 Mechanical Ventilator 50 96 38 50 05/09/20 22:45 108 40 149/49 (82) 100 05/09/20 22:30 96 34 109/44 (65) 97 05/09/20 22:15 96 34 118/39 (65) 97 05/09/20 22:00 96 30 109/39 (62) 97 05/09/20 21:45 87 34 115/45 (68) 97 05/09/20 21:30 95 33 115/41 (65) 98 05/09/20 21:15 95 37 120/30 (60) 98 05/09/20 21:00 89 05/09/20 21:00 95 34 117/26 (56) 98 05/09/20 20:49 96 38 50 05/09/20 20:45 94 33 121/31 (61) 98 05/09/20 20:30 93 33 120/29 (59) 98 05/09/20 20:15 91 33 124/29 (60) 97 05/09/20 20:00 50 05/09/20 20:00 98.6 92 33 120/25 (56) 98 05/09/20 20:00 Mechanical Ventilator 05/09/20 19:45 92 31 117/35 (62) 98 05/09/20 19:30 96 33 124/31 (62) 98 05/09/20 19:15 93 33 112/34 (60) 98 05/09/20 19:02 97 37 50 05/09/20 19:00 94 33 128/28 (61) 97 05/09/20 17:45 101 33 116/39 (64) 97 05/09/20 17:30 96 34 100/30 (53) 97 05/09/20 17:15 103 35 99/38 (58) 97 05/09/20 17:00 102 38 106/35 (58) 97 05/09/20 16:54 104 38 50 05/09/20 16:00 50 05/09/20 16:00 98.5 99 32 110/38 (62) 98 05/09/20 16:00 101 05/09/20 16:00 Mechanical Ventilator 05/09/20 15:00 96 39 129/38 (68) 97 05/09/20 15:00 100 39 50 Intake and Output 05/09/20 05/10/20 19:00 07:00 Intake Total 1500.0 ml 1370.0 ml Output Total 10 ml 125 ml Balance 1490.0 ml 1245.0 ml IV Total 1500.0 ml 1370.0 ml Output Urine Total 5 ml 75 ml Stool Total 50 ml Gastric Drainage Total 5 ml Laboratory Tests 05/10/20 02:50: White Blood Count 15.4H, Red Blood Count 2.75L, Hemoglobin 9.4L, Hematocrit 29.1L, Mean Corpuscular Volume 106H, Mean Corpuscular Hemoglobin 34.1H, Mean Corpuscular Hemoglobin Concent 32.2, Red Cell Distribution Width 21.3H, Platelet Count 103L, Mean Platelet Volume 7.6, Neutrophils (%) (Auto) , Lymphocytes (%) (Auto) , Monocytes (%) (Auto) , Eosinophils (%) (Auto) , Basophils (%) (Auto) , Differential Total Cells Counted 100, Neutrophils % (Manual) 86H, Lymphocytes % (Manual) 10L, Monocytes % (Manual) 2, Eosinophils % (Manual) 2, Basophils % (Manual) 0, Band Neutrophils 0, Platelet Estimate DecreasedL, Platelet Morphology Normal, Hypochromasia 1+, Anisocytosis 1+, Macrocytosis 1+, Sodium Level 141, Potassium Level 3.0L, Chloride Level 109H, Carbon Dioxide Level 20L, Anion Gap 12, Blood Urea Nitrogen 43H, Creatinine 3.1H, Estimat Glomerular Filtration Rate 19.6, Glucose Level 72L, Calcium Level 6.8L, Phosphorus Level 4.2, Total Bilirubin 0.3, Aspartate Amino Transf (AST/SGOT) 20, Alanine Aminotransferase (ALT/SGPT) 6L, Alkaline Phosphatase 100, Total Protein 6.5, Albumin 1.3L, Globulin 5.2, Albumin/Globulin Ratio 0.2L 05/10/20 12:34: Arterial Blood pH 7.374, Arterial Blood Partial Pressure CO2 41.7, Arterial Blo od Partial Pressure O2 242.8H, Arterial Blood HCO3 23.8, Arterial Blood Oxygen Saturation 99.7, Arterial Blood Base Excess -1.4, Urbano Test Positive Height (Feet): 5 Height (Inches): 7.00 Weight (Pounds): 150 Objective On 6 mcgm/min Levophed CV RR Lungs B ronchi Trach clean Abd Distended!!!Diminished BS. E +2 edema. Femoral Mahurkar. Neuro obtunded. Has twitches.Nonfocal. Ayanna Maldonado MD May 10, 2020 14:29
[2020-05-10] MEDS ORDERED: D5NS 1000ml IV ONE ×2 (14:33→22:25)
[2020-05-10] MEDS ORDERED: NS 275ml ONE (14:33)
[2020-05-10] MEDS ORDERED: NS 500ML ONE (14:33)
[2020-05-10] MEDS ORDERED: Tubing IV Secondary IV ONE (14:33)
[2020-05-10] MEDS ORDERED: 1/2 NS 1000ml IV ONE (14:33)
--- NOTE | 2020-05-10 16:11 | Surgery Progress Note ---
Surgery Progress Note Subjective Procedure Performed Left femoral temporary hemodialysis catheter insertion Additional Comments kub noted CT ordered exam stable Objective Last 24 Hour Vital Signs Date Time Temp Pulse Resp B/P (MAP) Pulse Ox O2 Delivery O2 Flow Rate FiO2 05/10/20 14:00 99 29 100/17 (44) 100 05/10/20 13:45 99 30 115/17 (49) 100 05/10/20 13:30 99 31 121/21 (54) 100 05/10/20 13:15 93 26 141/23 (62) 100 05/10/20 13:00 96 35 128/23 (58) 100 05/10/20 12:56 98 37 80 05/10/20 12:30 94 37 118/14 (48) 100 05/10/20 12:29 Mechanical Ventilator Mechanical Ventilator Mechanical Ventilator 05/10/20 12:00 98.4 90 37 116/50 (72) 100 05/10/20 12:00 100 05/10/20 12:00 97 05/10/20 11:30 97 39 103/65 (78) 98 05/10/20 11:25 100 05/10/20 11:04 98 40 50 05/10/20 11:00 75 34 114/30 (58) 96 05/10/20 10:30 93 30 131/43 (72) 100 05/10/20 10:15 96 30 110/27 (54) 99 05/10/20 10:00 83 30 107/28 (54) 99 05/10/20 09:45 85 30 104/27 (52) 99 05/10/20 09:30 90 29 105/23 (50) 99 05/10/20 09:25 89 42 50 05/10/20 09:15 84 30 104/34 (57) 99 05/10/20 09:00 88/29 05/10/20 09:00 86 30 88/29 (48) 98 05/10/20 08:00 Mechanical Ventilator 05/10/20 08:00 98.0 89 28 105/38 (60) 98 05/10/20 08:00 94 05/10/20 08:00 50 05/10/20 07:06 91 37 50 05/10/20 07:00 91 96/26 (49) 05/10/20 06:00 88 32 99/31 (53) 99 05/10/20 05:00 92 30 104/24 (50) 100 05/10/20 04:35 87 31 50 05/10/20 04:30 92 31 104/30 (54) 98 05/10/20 04:00 98.6 102 20 109/77 (88) 96 05/10/20 04:00 88 05/10/20 04:00 Mechanical Ventilator 05/10/20 04:00 50 05/10/20 03:30 100 34 111/33 (59) 98 05/10/20 03:00 96 31 96/21 (46) 98 05/10/20 02:50 98 36 50 05/10/20 02:30 100 35 101/41 (61) 98 05/10/20 02:00 98 35 108/29 (55) 98 05/10/20 01:30 96 34 111/31 (57) 98 05/10/20 01:03 96 37 50 05/10/20 01:00 97 30 120/43 (68) 100 05/10/20 00:00 50 05/10/20 00:00 95 05/10/20 00:00 Mechanical Ventilator 05/09/20 23:45 99 34 110/28 (55) 97 05/09/20 23:30 104 32 112/26 (54) 96 05/09/20 23:15 105 36 111/36 (61) 96 05/09/20 23:00 108 35 111/12 (45) 96 05/09/20 22:53 95 37 99 Mechanical Ventilator 50 96 38 50 05/09/20 22:45 108 40 149/49 (82) 100 05/09/20 22:30 96 34 109/44 (65) 97 05/09/20 22:15 96 34 118/39 (65) 97 05/09/20 22:00 96 30 109/39 (62) 97 05/09/20 21:45 87 34 115/45 (68) 97 05/09/20 21:30 95 33 115/41 (65) 98 05/09/20 21:15 95 37 120/30 (60) 98 05/09/20 21:00 89 05/09/20 21:00 95 34 117/26 (56) 98 05/09/20 20:49 96 38 50 05/09/20 20:45 94 33 121/31 (61) 98 05/09/20 20:30 93 33 120/29 (59) 98 05/09/20 20:15 91 33 124/29 (60) 97 05/09/20 20:00 50 05/09/20 20:00 98.6 92 33 120/25 (56) 98 05/09/20 20:00 Mechanical Ventilator 05/09/20 19:45 92 31 117/35 (62) 98 05/09/20 19:30 96 33 124/31 (62) 98 05/09/20 19:15 93 33 112/34 (60) 98 05/09/20 19:02 97 37 50 05/09/20 19:00 94 33 128/28 (61) 97 05/09/20 17:45 101 33 116/39 (64) 97 05/09/20 17:30 96 34 100/30 (53) 97 05/09/20 17:15 103 35 99/38 (58) 97 05/09/20 17:00 102 38 106/35 (58) 97 05/09/20 16:54 104 38 50 I&O Intake and Output 05/09/20 05/10/20 19:00 07:00 Intake Total 1500.0 ml 1370.0 ml Output Total 10 ml 125 ml Balance 1490.0 ml 1245.0 ml IV Total 1500.0 ml 1370.0 ml Output Urine Total 5 ml 75 ml Stool Total 50 ml Gastric Drainage Total 5 ml Dressing: saturated Cardiovascular: RSR Respiratory: decreased breath sounds Abdomen: distended, decreased bowel sounds Extremities: no cyanosis, other Laboratory Tests Test 05/10/20 02:50 05/10/20 12:34 White Blood Count 15.4 K/UL (4.8-10.8) H Red Blood Count 2.75 M/UL (4.70-6.10) L Hemoglobin 9.4 G/DL (14.2-18.0) L Hematocrit 29.1 % (42.0-52.0) L Mean Corpuscular Volume 106 FL (80-99) H Mean Corpuscular Hemoglobin 34.1 PG (27.0-31.0) H Mean Corpuscular Hemoglobin Concent 32.2 G/DL (32.0-36.0) Red Cell Distribution Width 21.3 % (11.6-14.8) H Platelet Count 103 K/UL (150-450) L Mean Platelet Volume 7.6 FL (6.5-10.1) Neutrophils (%) (Auto) % (45.0-75.0) Lymphocytes (%) (Auto) % (20.0-45.0) Monocytes (%) (Auto) % (1.0-10.0) Eosinophils (%) (Auto) % (0.0-3.0) Basophils (%) (Auto) % (0.0-2.0) Differential Total Cells Counted 100 Neutrophils % (Manual) 86 % (45-75) H Lymphocytes % (Manual) 10 % (20-45) L Monocytes % (Manual) 2 % (1-10) Eosinophils % (Manual) 2 % (0-3) Basophils % (Manual) 0 % (0-2) Band Neutrophils 0 % (0-8) Platelet Estimate Decreased L Platelet Morphology Normal Hypochromasia 1+ Anisocytosis 1+ Macrocytosis 1+ Sodium Level 141 MMOL/L (136-145) Potassium Level 3.0 MMOL/L (3.5-5.1) L Chloride Level 109 MMOL/L (98-107) H Carbon Dioxide Level 20 MMOL/L (21-32) L Anion Gap 12 mmol/L (5-15) Blood Urea Nitrogen 43 mg/dL (7-18) H Creatinine 3.1 MG/DL (0.55-1.30) H Estimat Glomerular Filtration Rate 19.6 mL/min (>60) Glucose Level 72 MG/DL (74-106) L Calcium Level 6.8 MG/DL (8.5-10.1) L Phosphorus Level 4.2 MG/DL (2.5-4.9) Total Bilirubin 0.3 MG/DL (0.2-1.0) Aspartate Amino Transf (AST/SGOT) 20 U/L (15-37) Alanine Aminotransferase (ALT/SGPT) 6 U/L (12-78) L Alkaline Phosphatase 100 U/L (46-116) Total Protein 6.5 G/DL (6.4-8.2) Albumin 1.3 G/DL (3.4-5.0) L Globulin 5.2 g/dL Albumin/Globulin Ratio 0.2 (1.0-2.7) L Arterial Blood pH 7.374 (7.350-7.450) Arterial Blood Partial Pressure CO2 41.7 mmHg (35.0-45.0) Arterial Blood Partial Pressure O2 242.8 mmHg (75.0-100.0) H Arterial Blood HCO3 23.8 mmol/L (22.0-26.0) Arterial Blood Oxygen Saturation 99.7 % (95-100) Arterial Blood Base Excess -1.4 (-2-2) Urbano Test Positive Plan Problems: (1) Dehydration (2) Ventilator associated pneumonia (3) AUDREY (acute kidney injury) (4) Hypokalemia (5) Hyperkalemia (6) Hypomagnesemia (7) Anemia (8) Decubitus skin ulcer Assessment & Plan: Pt presented on admission with gross contractures, Multiple Pressure Injuries, Tracheostomy. Skin Assessed under tracheal collar and no evidence of skin breakdown noted. Tear noted to urinary meatus- no exudate noted. Scrotum is erythematous with scattered satellite lesions. Large ulcer noted to R scrotal sac (L)4cm x (W)4.6cm. Base of wound is erythematous ,moist with Biofilm. Sacral DTPI with clusters of small islands of slough with surrounding maroon and indurated areas (L)8cm x (W)12cm.Mild Odor noted. Partial thickness Pressure Injury Upper/outer R buttocks(L)1.8cm x (W)1.3cm. Base of wound is moist and viable. Edges adherent to base of wound. Surrounding non-blanching erythema with scattered areas of shearing noted. Partial thickness Pressure Inferior lower R buttocks.(L)0.8cm x (W)1.2cm. Base of wound is moist and viable. Edges adherent to base of wound. Surrounding non- blanching erythema with scattered shearing noted extending into R ischial tuberosity. Clusters of small hyperpigmentation noted to L trochanteric and L ischial tuberosity. R Heel is fluctuant with scattered dry eschar and surrounding Non-Blanchable erythema.(L)6.5cm x (W)8cm. DTPI distal/lateral R foot(L)3cm x (W)3cm. Base of wound is maroon and fluctuant. dry eschar noted to tip of R 1st metatarsal with surrounding non-blanchable erythema extending dorsally and laterally of metatarsal(L)5cm x (W)1.3cm Non-Blanchable erythema that is fluctuant at base noted to dorso/lateral L 5th metatarsal(L)0.6cm x (W)0.3cm. L Heel is boggy with non-blanchable erythema laterally. Hyperpigmentation from previous wound noted at L heel. Tx.Plan: Cleanse Sacral wound with Saline. Apply TheraHoney to slough. Apply Moisture Barrier Paste periwound. Cover with Optifoam drsg. Change daily and prn. Apply Moisture Barrier Paste to Wounds R upper and lower R Buttocks. Cover each wound with Optifoam drsg. Change every 3 days and prn. Apply Zinc Oxide Paste to Scrotal Wounds TID and prn. Apply Betadine to wounds R heel and R foot . Cover with ABD Pads and wrap with Kerlix every 3 days and prn. Apply Betadine to L foot. Cover with ABD Pads and wrap with Kerlix every 3 days and prn. Cover Bony Prominences as needed with Optifoam drsgs. Reposition at least every 2hours or as tolerated. Off-load heels with pillow. APM/VIRAL Mattress DAILY ESTIMATED NEEDS: Needs based on Critical care, 63kg 22-30 kcals/kg 2401-6876 total kcals 1.25-2 g protein/kg 79-126 g total protein 25-30 mL/kg 2509-5989 total fluid mLs NUTRITION DIAGNOSIS: Swallowing difficulty r/ respiratory status as evidenced by pt is vent dep via trach, PEG dep. CURRENT TF:NPO ENTERAL NUTRITION RECOMMENDATIONS: Vital AF 1.2 @ 55ml/hr x 22 hrs to provide 1210ml, 1452kcal, 91g prot, 981ml free water - As medically able, rec Vital 1.2. Start @15ml/hr for 6 hrs, advance as tolerated 10ml/hr q4-6 hrs to goal. - Hold 1 hr before and after synthroid. - Flush per MD, HOB over 30 degrees - Feed w/ hemodynamic stability. ADDITIONAL RECOMMENDATIONS: 1) Obtain calibrated bed scale wts-> recent adm wt was 63kg vs 68kg today 2) Monitor renal labs and lytes, need for renal formula 3) Rec WC eval -> currently NPO 4) Monitor hemodynamic stability, ability to feed (9) SOB (shortness of breath) (10) Hypernatremia (11) Aspiration pneumonia (12) Renal insufficiency (13) Respiratory insufficiency (14) Respiratory failure (15) Malnutrition (16) Sepsis Assessment & Plan: Leukocytosis, lactic acidosis, abnormal labs. In ICU resuscitation imaging noted micro noted. 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
--- NOTE | 2020-05-10 19:35 | Cardiology Progress Note ---
Subjective DATE OF SERVICE: May 10, 2020 Remains Critical & Guarded On vent support Still requiring pressor support - on norepinephrine without adequate progress on further taper over past 24hrs IV thyroid replacement for TSH of 49 - but was unavailable today from pharmacy. Has coffee grounds from GTube; req'd 2 units of PRBC's 05/05. Renal function remains impaired with poor urine output; patient had HD 05/05 with further sessions per renal. CXR (05/09)worsening infiltrates. Objective Last 24 Hour Vital Signs Date Time Temp Pulse Resp B/P (MAP) Pulse Ox O2 Delivery O2 Flow Rate FiO2 05/10/20 18:43 91 30 55 05/10/20 17:45 100 30 90/27 (48) 100 05/10/20 17:19 96 30 55 05/10/20 17:15 95 30 98/22 (47) 99 05/10/20 17:00 97 30 103/28 (53) 99 05/10/20 16:45 92 29 102/27 (52) 98 05/10/20 16:30 91 30 100/19 (46) 97 05/10/20 16:00 99.4 90 30 102/15 (44) 98 05/10/20 16:00 55 05/10/20 16:00 Mechanical Ventilator Mechanical Ventilator Mechanical Ventilator 05/10/20 16:00 94 05/10/20 15:30 92 29 92/63 (73) 100 05/10/20 15:15 93 30 55 05/10/20 15:00 96 30 94/27 (49) 100 05/10/20 14:30 98 30 105/29 (54) 100 05/10/20 14:00 99 29 100/17 (44) 100 05/10/20 13:45 99 30 115/17 (49) 100 05/10/20 13:30 99 31 121/21 (54) 100 05/10/20 13:15 93 26 141/23 (62) 100 05/10/20 13:00 96 35 128/23 (58) 100 05/10/20 12:56 98 37 80 05/10/20 12:30 94 37 118/14 (48) 100 05/10/20 12:29 Mechanical Ventilator Mechanical Ventilator Mechanical Ventilator 05/10/20 12:00 98.4 90 37 116/50 (72) 100 05/10/20 12:00 Mechanical Ventilator 05/10/20 12:00 100 05/10/20 12:00 97 05/10/20 11:30 97 39 103/65 (78) 98 05/10/20 11:25 100 05/10/20 11:04 98 40 50 05/10/20 11:00 75 34 114/30 (58) 96 05/10/20 10:30 93 30 131/43 (72) 100 05/10/20 10:15 96 30 110/27 (54) 99 05/10/20 10:00 83 30 107/28 (54) 99 05/10/20 09:45 85 30 104/27 (52) 99 05/10/20 09:30 90 29 105/23 (50) 99 05/10/20 09:25 89 42 50 05/10/20 09:15 84 30 104/34 (57) 99 05/10/20 09:00 88/29 05/10/20 09:00 86 30 88/29 (48) 98 05/10/20 08:00 Mechanical Ventilator 05/10/20 08:00 98.0 89 28 105/38 (60) 98 05/10/20 08:00 94 05/10/20 08:00 50 05/10/20 07:06 91 37 50 05/10/20 07:00 91 96/26 (49) 05/10/20 06:00 88 32 99/31 (53) 99 05/10/20 05:00 92 30 104/24 (50) 100 05/10/20 04:35 87 31 50 05/10/20 04:30 92 31 104/30 (54) 98 05/10/20 04:00 98.6 102 20 109/77 (88) 96 05/10/20 04:00 88 05/10/20 04:00 Mechanical Ventilator 05/10/20 04:00 50 05/10/20 03:30 100 34 111/33 (59) 98 05/10/20 03:00 96 31 96/21 (46) 98 05/10/20 02:50 98 36 50 05/10/20 02:30 100 35 101/41 (61) 98 05/10/20 02:00 98 35 108/29 (55) 98 05/10/20 01:30 96 34 111/31 (57) 98 05/10/20 01:03 96 37 50 05/10/20 01:00 97 30 120/43 (68) 100 05/10/20 00:00 50 05/10/20 00:00 95 05/10/20 00:00 Mechanical Ventilator 05/09/20 23:45 99 34 110/28 (55) 97 05/09/20 23:30 104 32 112/26 (54) 96 05/09/20 23:15 105 36 111/36 (61) 96 05/09/20 23:00 108 35 111/12 (45) 96 05/09/20 22:53 95 37 99 Mechanical Ventilator 50 96 38 50 05/09/20 22:45 108 40 149/49 (82) 100 05/09/20 22:30 96 34 109/44 (65) 97 05/09/20 22:15 96 34 118/39 (65) 97 05/09/20 22:00 96 30 109/39 (62) 97 05/09/20 21:45 87 34 115/45 (68) 97 05/09/20 21:30 95 33 115/41 (65) 98 05/09/20 21:15 95 37 120/30 (60) 98 05/09/20 21:00 89 05/09/20 21:00 95 34 117/26 (56) 98 05/09/20 20:49 96 38 50 05/09/20 20:45 94 33 121/31 (61) 98 05/09/20 20:30 93 33 120/29 (59) 98 05/09/20 20:15 91 33 124/29 (60) 97 05/09/20 20:00 50 05/09/20 20:00 98.6 92 33 120/25 (56) 98 05/09/20 20:00 Mechanical Ventilator 05/09/20 19:45 92 31 117/35 (62) 98 ROS: no change from my admit note. HEENT: Thick Trach secretions RHYTHM: ST LUNGS: bilateral rhonchi CARDIAC: normal rate, regular rhythm, normal S1 and S2 ABDOMEN: normal bowel sounds, soft, no organomegaly, G-Tube intact EXTREMITIES: trace edema, other - obtunded Laboratory Tests Test 05/10/20 02:50 05/10/20 12:34 White Blood Count 15.4 K/UL (4.8-10.8) H Red Blood Count 2.75 M/UL (4.70-6.10) L Hemoglobin 9.4 G/DL (14.2-18.0) L Hematocrit 29.1 % (42.0-52.0) L Mean Corpuscular Volume 106 FL (80-99) H Mean Corpuscular Hemoglobin 34.1 PG (27.0-31.0) H Mean Corpuscular Hemoglobin Concent 32.2 G/DL (32.0-36.0) Red Cell Distribution Width 21.3 % (11.6-14.8) H Platelet Count 103 K/UL (150-450) L Mean Platelet Volume 7.6 FL (6.5-10.1) Neutrophils (%) (Auto) % (45.0-75.0) Lymphocytes (%) (Auto) % (20.0-45.0) Monocytes (%) (Auto) % (1.0-10.0) Eosinophils (%) (Auto) % (0.0-3.0) Basophils (%) (Auto) % (0.0-2.0) Differential Total Cells Counted 100 Neutrophils % (Manual) 86 % (45-75) H Lymphocytes % (Manual) 10 % (20-45) L Monocytes % (Manual) 2 % (1-10) Eosinophils % (Manual) 2 % (0-3) Basophils % (Manual) 0 % (0-2) Band Neutrophils 0 % (0-8) Platelet Estimate Decreased L Platelet Morphology Normal Hypochromasia 1+ Anisocytosis 1+ Macrocytosis 1+ Sodium Level 141 MMOL/L (136-145) Potassium Level 3.0 MMOL/L (3.5-5.1) L Chloride Level 109 MMOL/L (98-107) H Carbon Dioxide Level 20 MMOL/L (21-32) L Anion Gap 12 mmol/L (5-15) Blood Urea Nitrogen 43 mg/dL (7-18) H Creatinine 3.1 MG/DL (0.55-1.30) H Estimat Glomerular Filtration Rate 19.6 mL/min (>60) Glucose Level 72 MG/DL (74-106) L Calcium Level 6.8 MG/DL (8.5-10.1) L Phosphorus Level 4.2 MG/DL (2.5-4.9) Total Bilirubin 0.3 MG/DL (0.2-1.0) Aspartate Amino Transf (AST/SGOT) 20 U/L (15-37) Alanine Aminotransferase (ALT/SGPT) 6 U/L (12-78) L Alkaline Phosphatase 100 U/L (46-116) Total Protein 6.5 G/DL (6.4-8.2) Albumin 1.3 G/DL (3.4-5.0) L Globulin 5.2 g/dL Albumin/Globulin Ratio 0.2 (1.0-2.7) L Arterial Blood pH 7.374 (7.350-7.450) Arterial Blood Partial Pressure CO2 41.7 mmHg (35.0-45.0) Arterial Blood Partial Pressure O2 242.8 mmHg (75.0-100.0) H Arterial Blood HCO3 23.8 mmol/L (22.0-26.0) Arterial Blood Oxygen Saturation 99.7 % (95-100) Arterial Blood Base Excess -1.4 (-2-2) Urbano Test Positive Assessment/Plan Assessment/Plan Shock Sepsis [facility] PNA Leukocytosis GI bleeding Anemia Hypokalemia Ventilator dep respiratory failure Severe protein calorie malnutrition Ac/chronic diastolic CHF Acute renal failure now on HD. 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 Consider trial of stress dose steroids with ID clearance. Pressor support with on-going taper efforts discussed with nursing staff. Vent support Antimicrobials IV thyroid replacement IVF; cautious K+ suppl with renal failure. Consider PRBC transfusion for recurrent bleeding; holding all anti-plt and anti- coagulants. DVT prophylaxis Add'l dialysis per renal Defer EGD until off pressors Franko Pineda MD May 10, 2020 19:34
[2020-05-10] MEDS: Dyna-Hex 2% Top Sol 2oz TOPIC SCH (19:51)
[2020-05-10] MEDS: LORazepam Inj 2mg/ml 1ml IV PRN (20:18)
--- NOTE | 2020-05-10 20:51 | Emergency Room Report ---
Physical Exam Vital Signs Date Time Temp Pulse Resp B/P (MAP) Pulse Ox O2 Delivery O2 Flow Rate FiO2 05/06/20 07:00 82 36 102/59 (73) 100 05/06/20 07:21 90 05/06/20 08:00 Mechanical Ventilator 05/06/20 08:00 98.9 Medical Decision Making Diagnostic Impression: Primary Impression: Ventilator associated pneumonia Additional Impressions: AUDREY (acute kidney injury) Dehydration ER Course Called by Dr. Salcedo. Patient is in ICU with later associated pneumonia. He called me because he wanted me to switch the trach. He thought that there might be an issue with the trach. I went to the ICU and spoke with respiratory therapy. They state that the patient has not been pulling good volumes. They believe that there is a leak in the cuff and that the rate is too small for the size of the stoma. I switched it to a 8 from a 9 size trach. Patient saturatio ns remained 99% but volumes still remain low. Patient has a distended abdomen. I asked the nurse to stop the feedings and do intermittent suction on the G- tube. I informed the patient's doctor after this. He is aware. Patient remains in critical condition in the ICU. Last Vital Signs Date Time Temp Pulse Resp B/P (MAP) Pulse Ox O2 Delivery O2 Flow Rate FiO2 05/10/20 20:18 124 37 107/61 96 05/10/20 18:43 55 05/10/20 16:00 99.4 05/10/20 16:00 Mechanical Ventilator Mechanical Ventilator Mechanical Ventilator Disposition: ADMITTED INPATIENT Condition: Critical Referrals: Mansoor Martinez MD (PCP) Stella Crockett M.D. May 10, 2020 20:51
--- NOTE | 2020-05-10 21:50 | General Progress Note ---
Subjective Allergies: Coded Allergies: No Known Allergies (Unverified , 02/23/12) Subjective Above noted seen in ICU GT aspirate non bloody TF orders given Objective Last 24 Hour Vital Signs Date Time Temp Pulse Resp B/P (MAP) Pulse Ox O2 Delivery O2 Flow Rate FiO2 05/10/20 20:54 128 50 100 05/10/20 20:18 124 37 107/61 96 05/10/20 18:43 91 30 55 05/10/20 17:45 100 30 90/27 (48) 100 05/10/20 17:19 96 30 55 05/10/20 17:15 95 30 98/22 (47) 99 05/10/20 17:00 97 30 103/28 (53) 99 05/10/20 16:45 92 29 102/27 (52) 98 05/10/20 16:30 91 30 100/19 (46) 97 05/10/20 16:00 99.4 90 30 102/15 (44) 98 05/10/20 16:00 55 05/10/20 16:00 Mechanical Ventilator Mechanical Ventilator Mechanical Ventilator 05/10/20 16:00 94 05/10/20 15:30 92 29 92/63 (73) 100 05/10/20 15:15 93 30 55 05/10/20 15:00 96 30 94/27 (49) 100 05/10/20 14:30 98 30 105/29 (54) 100 05/10/20 14:00 99 29 100/17 (44) 100 05/10/20 13:45 99 30 115/17 (49) 100 05/10/20 13:30 99 31 121/21 (54) 100 05/10/20 13:15 93 26 141/23 (62) 100 05/10/20 13:00 96 35 128/23 (58) 100 05/10/20 12:56 98 37 80 05/10/20 12:30 94 37 118/14 (48) 100 05/10/20 12:29 Mechanical Ventilator Mechanical Ventilator Mechanical Ventilator 05/10/20 12:00 98.4 90 37 116/50 (72) 100 05/10/20 12:00 Mechanical Ventilator 05/10/20 12:00 100 05/10/20 12:00 97 05/10/20 11:30 97 39 103/65 (78) 98 05/10/20 11:25 100 05/10/20 11:04 98 40 50 05/10/20 11:00 75 34 114/30 (58) 96 05/10/20 10:30 93 30 131/43 (72) 100 05/10/20 10:15 96 30 110/27 (54) 99 05/10/20 10:00 83 30 107/28 (54) 99 05/10/20 09:45 85 30 104/27 (52) 99 05/10/20 09:30 90 29 105/23 (50) 99 05/10/20 09:25 89 42 50 05/10/20 09:15 84 30 104/34 (57) 99 05/10/20 09:00 88/29 05/10/20 09:00 86 30 88/29 (48) 98 05/10/20 08:00 Mechanical Ventilator 05/10/20 08:00 98.0 89 28 105/38 (60) 98 05/10/20 08:00 94 05/10/20 08:00 50 05/10/20 07:06 91 37 50 05/10/20 07:00 91 96/26 (49) 05/10/20 06:00 88 32 99/31 (53) 99 05/10/20 05:00 92 30 104/24 (50) 100 05/10/20 04:35 87 31 50 05/10/20 04:30 92 31 104/30 (54) 98 05/10/20 04:00 98.6 102 20 109/77 (88) 96 05/10/20 04:00 88 05/10/20 04:00 Mechanical Ventilator 05/10/20 04:00 50 05/10/20 03:30 100 34 111/33 (59) 98 05/10/20 03:00 96 31 96/21 (46) 98 05/10/20 02:50 98 36 50 05/10/20 02:30 100 35 101/41 (61) 98 05/10/20 02:00 98 35 108/29 (55) 98 05/10/20 01:30 96 34 111/31 (57) 98 05/10/20 01:03 96 37 50 05/10/20 01:00 97 30 120/43 (68) 100 05/10/20 00:00 50 05/10/20 00:00 95 05/10/20 00:00 Mechanical Ventilator 05/09/20 23:45 99 34 110/28 (55) 97 05/09/20 23:30 104 32 112/26 (54) 96 05/09/20 23:15 105 36 111/36 (61) 96 05/09/20 23:00 108 35 111/12 (45) 96 05/09/20 22:53 95 37 99 Mechanical Ventilator 50 96 38 50 05/09/20 22:45 108 40 149/49 (82) 100 05/09/20 22:30 96 34 109/44 (65) 97 05/09/20 22:15 96 34 118/39 (65) 97 05/09/20 22:00 96 30 109/39 (62) 97 Intake and Output 05/09/20 05/10/20 19:00 07:00 Intake Total 1500.0 ml 1370.0 ml Output Total 10 ml 125 ml Balance 1490.0 ml 1245.0 ml IV Total 1500.0 ml 1370.0 ml Output Urine Total 5 ml 75 ml Stool Total 50 ml Gastric Drainage Total 5 ml Laboratory Tests 05/10/20 02:50: White Blood Count 15.4H, Red Blood Count 2.75L, Hemoglobin 9.4L, Hematocrit 29.1L, Mean Corpuscular Volume 106H, Mean Corpuscular Hemoglobin 34.1H, Mean Corpuscular Hemoglobin Concent 32.2, Red Cell Distribution Width 21.3H, Platelet Count 103L, Mean Platelet Volume 7.6, Neutrophils (%) (Auto) , Lymphocytes (%) (Auto) , Monocytes (%) (Auto) , Eosinophils (%) (Auto) , Basophils (%) (Auto) , Differential Total Cells Counted 100, Neutrophils % (Manual) 86H, Lymphocytes % (Manual) 10L, Monocytes % (Manual) 2, Eosinophils % (Manual) 2, Basophils % (Manual) 0, Band Neutrophils 0, Platelet Estimate DecreasedL, Platelet Morphology Normal, Hypochromasia 1+, Anisocytosis 1+, Macrocytosis 1+, Sodium Level 141, Potassium Level 3.0L, Chloride Level 109H, Carbon Dioxide Level 20L, Anion Gap 12, Blood Urea Nitrogen 43H, Creatinine 3.1H, Estimat Glomerular Filtration Rate 19.6, Glucose Level 72L, Calcium Level 6.8L, Phosphorus Level 4.2, Total Bilirubin 0.3, Aspartate Amino Transf (AST/SGOT) 20, Alanine Aminotransferase (ALT/SGPT) 6L, Alkaline Phosphatase 100, Total Protein 6.5, Albumin 1.3L, Globulin 5.2, Albumin/Globulin Ratio 0.2L 05/10/20 12:34: Arterial Blood pH 7.374, Arterial Blood Partial Pressure CO2 41.7, Arterial Blood Partial Pressure O2 242.8H, Arterial Blood HCO3 23.8, Arterial Blood Oxygen Saturation 99.7, Arterial Blood Base Excess -1.4, Urbano Test Positive Height (Feet): 5 Height (Inches): 7.00 Weight (Pounds): 150 Objective NCAT (+) trach Coarse BS RR abd soft, (+) GT, distended (++) contracted (+) edema Assessment/Plan Status: stable, not improved Assessment/Plan: Assessment - Upper GI bleed - resolved - hypotensive , on pressors - abd distention - h/o gastric ulcer - anemia - renal failure - resp failure - contractures - Poor prognosis Recommendations - Pressors / supportive care - rectal tube decompression - Trial of feeds - monitor H&H - IV PPI - transfuse Clive Barajas MD May 10, 2020 21:50
[2020-05-10] MEDS: Epoetin Alfa-EPBX (NON ESRD)10,000 unit/ml vial SUBQ SCH (21:52)
[2020-05-11] VITALS (40 sets, daily range): BP systolic 90–138; BP diastolic 13–72
[2020-05-11] MEDS: Norepinephrine 4mg/NS Premix 250 ML IV SCH ×3 (00:11→12:10)
[2020-05-11 05:59] LABS: HEMATOCRIT 30.3 % (42.0-52.0); HEMOGLOBIN 9.5 G/DL (14.2-18.0); MEAN CORPUSCULAR VOLUME 108 FL (80-99); PLATELET COUNT 88 K/UL (150-450); RED BLOOD COUNT 2.81 M/UL (4.70-6.10); RED CELL DISTRIBUTION WIDTH 21.6 % (11.6-14.8)
[2020-05-11 06:10] LABS: WHITE BLOOD COUNT 33.2 K/UL (4.8-10.8)
[2020-05-11 06:37] LABS: ALANINE AMINOTRANSFERASE < 6 U/L (12-78); ALBUMIN 1.2 G/DL (3.4-5.0); ALBUMIN/GLOBULIN RATIO 0.2 (1.0-2.7); ALKALINE PHOSPHATASE 108 U/L (46-116); ANION GAP 9 mmol/L (5-15); ASPARTATE AMINO TRANSFERASE 18 U/L (15-37); BILIRUBIN,TOTAL 0.4 MG/DL (0.2-1.0); BLOOD UREA NITROGEN 32 mg/dL (7-18); CALCIUM 7.2 MG/DL (8.5-10.1); CARBON DIOXIDE 23 MMOL/L (21-32); CHLORIDE 109 MMOL/L (98-107); CREATININE 2.9 MG/DL (0.55-1.30); POTASSIUM 3.2 MMOL/L (3.5-5.1); SODIUM 141 MMOL/L (136-145)
[2020-05-11] MEDS: levETIRAcetam 750 MG in D5W 95 ML IV SCH ×2 (08:58→21:07)
[2020-05-11] MEDS: Pantoprazole Inj IVP SCH ×2 (08:58→19:51)
[2020-05-11] MEDS: D5NS 1,000 ML IV SCH (08:59)
--- NOTE | 2020-05-11 10:04 | Infectious Diseases Prog Note ---
Assessment/Plan Assessment/Plan A: 1. Staph aureus & Coag neg sepsis. 2. MDR Klebsiella pneumonia. 3. Renal failure.acute on chronic 4. Respiratory failure on ventilator 5. Seizure disorder. 6. Septic shock. 7. GI bleeding 8. Anemia 9. Small bowel distention 10. Cirrhosis 11. Splenomegaly PLAN: 1. continue linezolid. 2. We will start the patient on Meropenem 3. We will follow up cultures and adjust antibiotics accordingly. Subjective ROS Limited/Unobtainable: Yes Constitutional: Denies: fever Allergies: Coded Allergies: No Known Allergies (Unverified , 02/23/12) Objective Last 24 Hour Vital Signs Date Time Temp Pulse Resp B/P (MAP) Pulse Ox O2 Delivery O2 Flow Rate FiO2 05/11/20 09:19 95 40 100 05/11/20 09:15 92 28 136/23 (60) 100 05/11/20 09:00 93 35 130/24 (59) 100 05/11/20 08:00 Mechanical Ventilator Mechanical Ventilator Mechanical Ventilator 05/11/20 08:00 55 05/11/20 08:00 98.4 100 34 124/19 (54) 100 05/11/20 07:42 117/19 05/11/20 07:17 94 43 100 05/11/20 07:00 101 34 125/19 (54) 100 05/11/20 06:30 100 43 138/28 (64) 100 05/11/20 06:00 100 40 123/21 (55) 100 05/11/20 05:00 103 53 99/24 (49) 100 05/11/20 04:50 106 45 100 05/11/20 04:30 105 50 104/72 (83) 100 05/11/20 04:00 55 05/11/20 04:00 101 40 111/62 (78) 100 05/11/20 04:00 Mechanical Ventilator Mechanical Ventilator Mechanical Ventilator 05/11/20 04:00 101 05/11/20 03:30 99 39 108/65 (79) 100 05/11/20 03:00 104 45 109/64 (79) 100 05/11/20 02:31 100 39 100 05/11/20 02:30 97 28 118/69 (85) 100 05/11/20 02:00 98 29 118/65 (82) 100 05/11/20 01:30 90 29 120/68 (85) 100 05/11/20 01:00 83 30 115/67 (83) 100 05/11/20 00:37 88 36 100 05/11/20 00:30 91 30 110/61 (77) 100 05/11/20 00:11 120/62 05/11/20 00:00 55 05/11/20 00:00 Mechanical Ventilator Mechanical Ventilator Mechanical Ventilator 05/11/20 00:00 99.4 96 32 120/62 (81) 100 05/10/20 23:30 96 32 124/69 (87) 100 05/10/20 23:00 103 36 121/71 (88) 100 05/10/20 22:30 108 44 116/72 (87) 100 05/10/20 22:30 109 39 100 05/10/20 22:00 109 48 101/63 (76) 100 05/10/20 21:30 115 47 85/55 (65) 100 05/10/20 21:00 128 46 94/61 (72) 99 05/10/20 20:54 128 50 100 05/10/20 20:48 110 53 88/55 100 05/10/20 20:30 121 28 128/85 (99) 39 05/10/20 20:18 124 37 107/61 96 05/10/20 20:00 127 05/10/20 20:00 Mechanical Ventilator Mechanical Ventilator Mechanical Ventilator 05/10/20 20:00 55 05/10/20 20:00 99.0 127 40 118/72 (87) 95 05/10/20 19:30 113 25 124/71 (88) 96 05/10/20 19:00 89 20 99/79 (86) 100 05/10/20 18:43 91 30 55 05/10/20 18:30 93 30 87/21 (43) 100 05/10/20 18:00 98 30 97/27 (50) 100 05/10/20 17:45 100 30 90/27 (48) 100 05/10/20 17:19 96 30 55 05/10/20 17:15 95 30 98/22 (47) 99 05/10/20 17:00 97 30 103/28 (53) 99 05/10/20 16:45 92 29 102/27 (52) 98 05/10/20 16:30 91 30 100/19 (46) 97 05/10/20 16:00 99.4 90 30 102/15 (44) 98 05/10/20 16:00 55 05/10/20 16:00 Mechanical Ventilator Mechanical Ventilator Mechanical Ventilator 05/10/20 16:00 94 05/10/20 15:30 92 29 92/63 (73) 100 05/10/20 15:15 93 30 55 05/10/20 15:00 96 30 94/27 (49) 100 05/10/20 14:30 98 30 105/29 (54) 100 05/10/20 14:00 99 29 100/17 (44) 100 05/10/20 13:45 99 30 115/17 (49) 100 05/10/20 13:30 99 31 121/21 (54) 100 05/10/20 13:15 93 26 141/23 (62) 100 05/10/20 13:00 96 35 128/23 (58) 100 05/10/20 12:56 98 37 80 05/10/20 12:30 94 37 118/14 (48) 100 05/10/20 12:29 Mechanical Ventilator Mechanical Ventilator Mechanical Ventilator 05/10/20 12:00 98.4 90 37 116/50 (72) 100 05/10/20 12:00 Mechanical Ventilator 05/10/20 12:00 100 05/10/20 12:00 97 05/10/20 11:30 97 39 103/65 (78) 98 05/10/20 11:25 100 05/10/20 11:04 98 40 50 05/10/20 11:00 75 34 114/30 (58) 96 05/10/20 10:30 93 30 131/43 (72) 100 05/10/20 10:15 96 30 110/27 (54) 99 05/10/20 10:00 83 30 107/28 (54) 99 Height (Feet): 5 Height (Inches): 7.00 Weight (Pounds): 150 HEENT: status post trach Respiratory/Chest: decreased breath sounds, other - on ventilator Cardiovascular: normal rate, other - RIJ central line Abdomen: distended, other - GT in place Extremities: other - generalized edema Neurologic/Psychiatric: unresponsiveness, aphasia Microbiology Date/Time Source Procedure Growth Status 05/09/20 15:40 Blood Blood Culture - Preliminary NO GROWTH AFTER 24 HOURS Resulted Laboratory Tests Test 11/11/20 12:34 05/11/20 05:18 05/11/20 09:29 Arterial Blood pH 7.374 (7.350-7.450) 7.216 (7.350-7.450) Arterial Blood Partial Pressure CO2 41.7 mmHg (35.0-45.0) 50.1 mmHg (35.0-45.0) H Arterial Blood Partial Pressure O2 242.8 mmHg (75.0-100.0) H 242.9 mmHg (75.0-100.0) H Arterial Blood HCO3 23.8 mmol/L (22.0-26.0) 19.9 mmol/L (22.0-26.0) L Arterial Blood Oxygen Saturation 99.7 % (95-100) 99.0 % (95-100) Arterial Blood Base Excess -1.4 (-2-2) -7.7 (-2-2) L Urbano Test Positive Positive White Blood Count 33.2 K/UL (4.8-10.8) #*H Red Blood Count 2.81 M/UL (4.70-6.10) L Hemoglobin 9.5 G/DL (14.2-18.0) L Hematocrit 30.3 % (42.0-52.0) L Mean Corpuscular Volume 108 FL (80-99) H Mean Corpuscular Hemoglobin 33.7 PG (27.0-31.0) H Mean Corpuscular Hemoglobin Concent 31.3 G/DL (32.0-36.0) L Red Cell Distribution Width 21.6 % (11.6-14.8) H Platelet Count 88 K/UL (150-450) L Mean Platelet Volume 8.3 FL (6.5-10.1) Neutrophils (%) (Auto) % (45.0-75.0) Lymphocytes (%) (Auto) % (20.0-45.0) Monocytes (%) (Auto) % (1.0-10.0) Eosinophils (%) (Auto) % (0.0-3.0) Basophils (%) (Auto) % (0.0-2.0) Differential Total Cells Counted 100 Neutrophils % (Manual) 88 % (45-75) H Lymphocytes % (Manual) 2 % (20-45) L Monocytes % (Manual) 4 % (1-10) Eosinophils % (Manual) 3 % (0-3) Basophils % (Manual) 0 % (0-2) Band Neutrophils 3 % (0-8) Platelet Estimate Decreased L Platelet Morphology Normal Hypochromasia 1+ Anisocytosis 2+ Macrocytosis 1+ Sodium Level 141 MMOL/L (136-145) Potassium Level 3.2 MMOL/L (3.5-5.1) L Chloride Level 109 MMOL/L (98-107) H Carbon Dioxide Level 23 MMOL/L (21-32) Anion Gap 9 mmol/L (5-15) Blood Urea Nitrogen 32 mg/dL (7-18) H Creatinine 2.9 MG/DL (0.55-1.30) H Estimat Glomerular Filtration Rate 21.2 mL/min (>60) Glucose Level 77 MG/DL (74-106) Calcium Level 7.2 MG/DL (8.5-10.1) L Total Bilirubin 0.4 MG/DL (0.2-1.0) Aspartate Amino Transf (AST/SGOT) 18 U/L (15-37) Alanine Aminotransferase (ALT/SGPT) < 6 U/L (12-78) L Alkaline Phosphatase 108 U/L (46-116) Total Protein 6.1 G/DL (6.4-8.2) L Albumin 1.2 G/DL (3.4-5.0) L Globulin 4.9 g/dL Albumin/Globulin Ratio 0.2 (1.0-2.7) L Current Medications Medications (Trade) Dose Ordered Sig/Lanny Route PRN Reason Start Time Stop Time Status Last Admin Dose Admin Acetaminophen (Tylenol) 650 mg Q4H PRN NG fever pain 05/03/20 21:30 06/02/20 21:29 Barium Sulfate (Readi-Cat 2) 450 ml NOW PRN ORAL Radiology Procedure 05/10/20 16:15 05/12/20 16:14 Chlorhexidine Gluconate (Kayla-Hex 2%) 1 applic DAILY@1999 TOPIC 05/04/20 20:00 08/02/20 19:59 05/10/20 19:51 Clonidine HCl (Catapres Tab) 0.1 mg Q4H PRN GT SBP above 150 05/03/20 21:30 08/01/20 21:29 Dextrose/Sodium Chloride 1,000 ml @ 50 mls/hr Q20H IV 05/06/20 11:00 06/05/20 10:59 05/11/20 08:59 Epoetin Asaf (Epoetin Asaf-EPBX(NON ESRD)) 10,000 unit FRI-FRI-FRI SUBQ 05/05/20 21:00 08/03/20 20:59 05/10/20 21:52 Levetiracetam 750 mg/Dextrose 102.5 ml @ 440 mls/hr Q12HR IV 05/08/20 21:00 06/07/20 20:59 05/11/20 08:58 Levothyroxine Sodium (Synthroid) 100 mcg DAILY IV 05/05/20 09:00 06/03/20 10:59 05/11/20 08:58 Linezolid 300 ml @ 300 mls/hr Q12HR IVPB 05/05/20 13:00 05/16/20 23:59 05/11/20 08:59 Lorazepam (Ativan 2mg/ml 1ml) 1 mg Q4H PRN IV For Seizures 05/07/20 09:15 05/14/20 09:14 05/10/20 20:18 Midodrine (Pro-Amatine) 5 mg TID ORAL 05/05/20 09:00 08/03/20 08:59 05/11/20 08:59 Norepinephrine Bitartrate 250 ml @ 22.5 mls/hr Q24H IV 05/11/20 07:15 05/14/20 07:02 05/11/20 07:42 Pantoprazole (Protonix) 40 mg EVERY 12 HOURS IVP 05/04/20 21:00 06/03/20 20:59 05/11/20 08:58 Janes Dumas MD May 11, 2020 10:04
--- NOTE | 2020-05-11 10:46 | Critical Care Progress Note ---
Assessment/Plan Assessment/Plan IMPRESSION: Respiratory failure chronic, chronic encephalopathy, sepsis, leukocytosis, G-tube, aspiration, acute on chronic renal failure, electrolyte abnormality, failure to thrive, severe protein-calorie malnutrition, chronic CO2 retention; Hypoxemia, worsening acidemia, tachypnea RECOMMENDATIONS: Care noted; ABG noted and will taper oxygen; on pressors as needed; feeds per gi- monitor protein levels and try to start feeds; Supportive care. IV antibiotics and adjust and discuss. Respiratory support and vent management- taper oxygen needs as able, monitor acid base and hyperventilate intermediate medications. Monitor clinically. Prognosis is overall poor for meaningful recovery . monitor labs and adjust therapy; on HD and UF as able renal ID cardiology; await further recommendations and stabilization remains critical medications/laboratory data/nursing notes/ICU care reviewed in detail note reviewed and edited care discussed with RN and RT ICU time spent >40 minutes Critical Care - Subjective Interval Events: doing poorly blood pressure low on pressors trach change noted now with improved lung volumes ROS Limited/Unobtainable: Yes Condition: critical EKG Rhythm: Sinus Rhythm Residuals: minimal Tube Feeding Tolerated: yes I&O: Intake and Output 05/10/20 05/11/20 19:00 07:00 Intake Total 1351.250 ml 823.375 ml Output Total 1005 ml 200 ml Balance 346.250 ml 623.375 ml Free Water 90 ml IV Total 1141.250 ml 823.375 ml Tube Feeding 90 ml Other 30 ml Output Urine Total 5 ml 200 ml Hemodialysis UF 1000 ml # Bowel Movements 100 Critical Care - Objective Last 24 Hour Vital Signs Date Time Temp Pulse Resp B/P (MAP) Pulse Ox O2 Delivery O2 Flow Rate FiO2 05/11/20 10:00 100 39 92/13 (39) 100 05/11/20 09:45 99 31 122/16 (51) 100 05/11/20 09:30 88 28 125/46 (72) 100 05/11/20 09:19 95 40 100 05/11/20 09:15 92 28 136/23 (60) 100 05/11/20 09:00 93 35 130/24 (59) 100 05/11/20 08:00 Mechanical Ventilator Mechanical Ventilator Mechanical Ventilator 05/11/20 08:00 55 05/11/20 08:00 98.4 100 34 124/19 (54) 100 11/12/20 07:42 117/19 05/11/20 07:17 94 43 100 05/11/20 07:00 101 34 125/19 (54) 100 05/11/20 06:30 100 43 138/28 (64) 100 05/11/20 06:00 100 40 123/21 (55) 100 05/11/20 05:00 103 53 99/24 (49) 100 05/11/20 04:50 106 45 100 05/11/20 04:30 105 50 104/72 (83) 100 05/11/20 04:00 55 05/11/20 04:00 101 40 111/62 (78) 100 05/11/20 04:00 Mechanical Ventilator Mechanical Ventilator Mechanical Ventilator 05/11/20 04:00 101 05/11/20 03:30 99 39 108/65 (79) 100 05/11/20 03:00 104 45 109/64 (79) 100 05/11/20 02:31 100 39 100 05/11/20 02:30 97 28 118/69 (85) 100 05/11/20 02:00 98 29 118/65 (82) 100 05/11/20 01:30 90 29 120/68 (85) 100 05/11/20 01:00 83 30 115/67 (83) 100 05/11/20 00:37 88 36 100 05/11/20 00:30 91 30 110/61 (77) 100 05/11/20 00:11 120/62 05/11/20 00:00 55 05/11/20 00:00 Mechanical Ventilator Mechanical Ventilator Mechanical Ventilator 05/11/20 00:00 99.4 96 32 120/62 (81) 100 05/10/20 23:30 96 32 124/69 (87) 100 05/10/20 23:00 103 36 121/71 (88) 100 05/10/20 22:30 108 44 116/72 (87) 100 05/10/20 22:30 109 39 100 05/10/20 22:00 109 48 101/63 (76) 100 05/10/20 21:30 115 47 85/55 (65) 100 05/10/20 21:00 128 46 94/61 (72) 99 05/10/20 20:54 128 50 100 05/10/20 20:48 110 53 88/55 100 05/10/20 20:30 121 28 128/85 (99) 39 05/10/20 20:18 124 37 107/61 96 05/10/20 20:00 127 05/10/20 20:00 Mechanical Ventilator Mechanical Ventilator Mechanical Ventilator 05/10/20 20:00 55 05/10/20 20:00 99.0 127 40 118/72 (87) 95 05/10/20 19:30 113 25 124/71 (88) 96 05/10/20 19:00 89 20 99/79 (86) 100 05/10/20 18:43 91 30 55 05/10/20 18:30 93 30 87/21 (43) 100 05/10/20 18:00 98 30 97/27 (50) 100 05/10/20 17:45 100 30 90/27 (48) 100 05/10/20 17:19 96 30 55 05/10/20 17:15 95 30 98/22 (47) 99 05/10/20 17:00 97 30 103/28 (53) 99 05/10/20 16:45 92 29 102/27 (52) 98 05/10/20 16:30 91 30 100/19 (46) 97 05/10/20 16:00 99.4 90 30 102/15 (44) 98 05/10/20 16:00 55 05/10/20 16:00 Mechanical Ventilator Mechanical Ventilator Mechanical Ventilator 05/10/20 16:00 94 05/10/20 15:30 92 29 92/63 (73) 100 05/10/20 15:15 93 30 55 05/10/20 15:00 96 30 94/27 (49) 100 05/10/20 14:30 98 30 105/29 (54) 100 05/10/20 14:00 99 29 100/17 (44) 100 05/10/20 13:45 99 30 115/17 (49) 100 05/10/20 13:30 99 31 121/21 (54) 100 05/10/20 13:15 93 26 141/23 (62) 100 05/10/20 13:00 96 35 128/23 (58) 100 05/10/20 12:56 98 37 80 05/10/20 12:30 94 37 118/14 (48) 100 05/10/20 12:29 Mechanical Ventilator Mechanical Ventilator Mechanical Ventilator 05/10/20 12:00 98.4 90 37 116/50 (72) 100 05/10/20 12:00 Mechanical Ventilator 05/10/20 12:00 100 05/10/20 12:00 97 05/10/20 11:30 97 39 103/65 (78) 98 05/10/20 11:25 100 05/10/20 11:04 98 40 50 05/10/20 11:00 75 34 114/30 (58) 96 Labs: Laboratory Tests 05/10/20 12:34: Arterial Blood pH 7.374, Arterial Blood Partial Pressure CO2 41.7, Arterial Blood Partial Pressure O2 242.8H, Arterial Blood HCO3 23.8, Arterial Blood Oxygen Saturation 99.7, Arterial Blood Base Excess -1.4, Urbano Test Positive 05/11/20 05:18: White Blood Count 33.2#*H, Red Blood Count 2.81L, Hemoglobin 9.5L, Hematocrit 30.3L, Mean Corpuscular Volume 108H, Mean Corpuscular Hemoglobin 33.7H, Mean Corpuscular Hemoglobin Concent 31.3L, Red Cell Distribution Width 21.6H, Platelet Count 88L, Mean Platelet Volume 8.3, Neutrophils (%) (Auto) , Lymphocytes (%) (Auto) , Monocytes (%) (Auto) , Eosinophils (%) (Auto) , Basophils (%) (Auto) , Differential Total Cells Counted 100, Neutrophils % (Manual) 88H, Lymphocytes % (Manual) 2L, Monocytes % (Manual) 4, Eosinophils % (Manual) 3, Basophils % (Manual) 0, Band Neutrophils 3, Platelet Estimate DecreasedL, Platelet Morphology Normal, Hypochromasia 1+, Anisocytosis 2+, Macrocytosis 1+, Sodium Level 141, Potassium Level 3.2L, Chloride Level 109H, Carbon Dioxide Level 23, Anion Gap 9, Blood Urea Nitrogen 32H, Creatinine 2.9H, Estimat Glomerular Filtration Rate 21.2, Glucose Level 77, Calcium Level 7.2L, Total Bilirubin 0.4, Aspartate Amino Transf (AST/SGOT) 18, Alanine Aminotransferase (ALT/SGPT) < 6L, Alkaline Phosphatase 108, Total Protein 6.1L, Albumin 1.2L, Globulin 4.9, Albumin/Globulin Ratio 0.2L 05/11/20 09:29: Arterial Blood pH 7.216*L, Arterial Blood Partial Pressure CO2 50.1H, Arterial Blood Partial Pressure O2 242.9H, Arterial Blood HCO3 19.9L, Arterial Blood Oxygen Saturation 99.0, Arterial Blood Base Excess -7.7L, Urbano Test Positive Objective: WDWN NAD reduced breath sounds bilaterally reduced rhonchi [id number] without MRG NABS nontender GT no CCE significant contractures nonfocal obtunded trach in place Vent skin noted Micro: Microbiology Date/Time Source Procedure Growth Status 05/09/20 15:40 Blood Blood Culture - Preliminary NO GROWTH AFTER 24 HOURS Resulted Accucheck: 95 Mansoor Martinez MD May 11, 2020 10:46
--- NOTE | 2020-05-11 11:41 | Surgery Progress Note ---
Surgery Progress Note Subjective Procedure Performed Left femoral temporary hemodialysis catheter insertion Additional Comments no acute events still on pressors. ct on hold given not stable npo fluids tube to drainage Objective Last 24 Hour Vital Signs Date Time Temp Pulse Resp B/P (MAP) Pulse Ox O2 Delivery O2 Flow Rate FiO2 05/11/20 11:18 95 46 55 05/11/20 10:00 100 39 92/13 (39) 100 05/11/20 09:45 99 31 122/16 (51) 100 05/11/20 09:30 88 28 125/46 (72) 100 05/11/20 09:19 95 40 100 05/11/20 09:15 92 28 136/23 (60) 100 05/11/20 09:00 93 35 130/24 (59) 100 05/11/20 08:00 Mechanical Ventilator Mechanical Ventilator Mechanical Ventilator 05/11/20 08:00 55 05/11/20 08:00 98.4 100 34 124/19 (54) 100 05/11/20 07:42 117/19 05/11/20 07:17 94 43 100 05/11/20 07:00 101 34 125/19 (54) 100 05/11/20 06:30 100 43 138/28 (64) 100 05/11/20 06:00 100 40 123/21 (55) 100 05/11/20 05:00 103 53 99/24 (49) 100 05/11/20 04:50 106 45 100 05/11/20 04:30 105 50 104/72 (83) 100 05/11/20 04:00 55 05/11/20 04:00 101 40 111/62 (78) 100 05/11/20 04:00 Mechanical Ventilator Mechanical Ventilator Mechanical Ventilator 05/11/20 04:00 101 05/11/20 03:30 99 39 108/65 (79) 100 05/11/20 03:00 104 45 109/64 (79) 100 05/11/20 02:31 100 39 100 05/11/20 02:30 97 28 118/69 (85) 100 05/11/20 02:00 98 29 118/65 (82) 100 05/11/20 01:30 90 29 120/68 (85) 100 05/11/20 01:00 83 30 115/67 (83) 100 05/11/20 00:37 88 36 100 05/11/20 00:30 91 30 110/61 (77) 100 05/11/20 00:11 120/62 05/11/20 00:00 55 05/11/20 00:00 Mechanical Ventilator Mechanical Ventilator Mechanical Ventilator 05/11/20 00:00 99.4 96 32 120/62 (81) 100 05/10/20 23:30 96 32 124/69 (87) 100 05/10/20 23:00 103 36 121/71 (88) 100 05/10/20 22:30 108 44 116/72 (87) 100 05/10/20 22:30 109 39 100 05/10/20 22:00 109 48 101/63 (76) 100 05/10/20 21:30 115 47 85/55 (65) 100 05/10/20 21:00 128 46 94/61 (72) 99 05/10/20 20:54 128 50 100 05/10/20 20:48 110 53 88/55 100 05/10/20 20:30 121 28 128/85 (99) 39 05/10/20 20:18 124 37 107/61 96 05/10/20 20:00 127 05/10/20 20:00 Mechanical Ventilator Mechanical Ventilator Mechanical Ventilator 05/10/20 20:00 55 05/10/20 20:00 99.0 127 40 118/72 (87) 95 05/10/20 19:30 113 25 124/71 (88) 96 05/10/20 19:00 89 20 99/79 (86) 100 05/10/20 18:43 91 30 55 05/10/20 18:30 93 30 87/21 (43) 100 05/10/20 18:00 98 30 97/27 (50) 100 05/10/20 17:45 100 30 90/27 (48) 100 05/10/20 17:19 96 30 55 05/10/20 17:15 95 30 98/22 (47) 99 05/10/20 17:00 97 30 103/28 (53) 99 05/10/20 16:45 92 29 102/27 (52) 98 05/10/20 16:30 91 30 100/19 (46) 97 05/10/20 16:00 99.4 90 30 102/15 (44) 98 05/10/20 16:00 55 05/10/20 16:00 Mechanical Ventilator Mechanical Ventilator Mechanical Ventilator 05/10/20 16:00 94 05/10/20 15:30 92 29 92/63 (73) 100 05/10/20 15:15 93 30 55 05/10/20 15:00 96 30 94/27 (49) 100 05/10/20 14:30 98 30 105/29 (54) 100 05/10/20 14:00 99 29 100/17 (44) 100 05/10/20 13:45 99 30 115/17 (49) 100 05/10/20 13:30 99 31 121/21 (54) 100 05/10/20 13:15 93 26 141/23 (62) 100 05/10/20 13:00 96 35 128/23 (58) 100 05/10/20 12:56 98 37 80 05/10/20 12:30 94 37 118/14 (48) 100 05/10/20 12:29 Mechanical Ventilator Mechanical Ventilator Mechanical Ventilator 05/10/20 12:00 98.4 90 37 116/50 (72) 100 05/10/20 12:00 Mechanical Ventilator 05/10/20 12:00 100 05/10/20 12:00 97 I&O Intake and Output 05/10/20 05/11/20 19:00 07:00 Intake Total 1351.250 ml 823.375 ml Output Total 1005 ml 200 ml Balance 346.250 ml 623.375 ml Free Water 90 ml IV Total 1141.250 ml 823.375 ml Tube Feeding 90 ml Other 30 ml Output Urine Total 5 ml 200 ml Hemodialysis UF 1000 ml # Bowel Movements 100 Dressing: saturated Cardiovascular: RSR Respiratory: decreased breath sounds Abdomen: distended, non-tender, decreased bowel sounds Extremities: no tenderness, no cyanosis Laboratory Tests Test 05/10/20 12:34 05/11/20 05:18 05/11/20 09:29 Arterial Blood pH 7.374 (7.350-7.450) 7.216 (7.350-7.450) Arterial Blood Partial Pressure CO2 41.7 mmHg (35.0-45.0) 50.1 mmHg (35.0-45.0) H Arterial Blood Partial Pressure O2 242.8 mmHg (75.0-100.0) H 242.9 mmHg (75.0-100.0) H Arterial Blood HCO3 23.8 mmol/L (22.0-26.0) 19.9 mmol/L (22.0-26.0) L Arterial Blood Oxygen Saturation 99.7 % (95-100) 99.0 % (95-100) Arterial Blood Base Excess -1.4 (-2-2) -7.7 (-2-2) L Urbano Test Positive Positive White Blood Count 33.2 K/UL (4.8-10.8) #*H Red Blood Count 2.81 M/UL (4.70-6.10) L Hemoglobin 9.5 G/DL (14.2-18.0) L Hematocrit 30.3 % (42.0-52.0) L Mean Corpuscular Volume 108 FL (80-99) H Mean Corpuscular Hemoglobin 33.7 PG (27.0-31.0) H Mean Corpuscular Hemoglobin Concent 31.3 G/DL (32.0-36.0) L Red Cell Distribution Width 21.6 % (11.6-14.8) H Platelet Count 88 K/UL (150-450) L Mean Platelet Volume 8.3 FL (6.5-10.1) Neutrophils (%) (Auto) % (45.0-75.0) Lymphocytes (%) (Auto) % (20.0-45.0) Monocytes (%) (Auto) % (1.0-10.0) Eosinophils (%) (Auto) % (0.0-3.0) Basophils (%) (Auto) % (0.0-2.0) Differential Total Cells Counted 100 Neutrophils % (Manual) 88 % (45-75) H Lymphocytes % (Manual) 2 % (20-45) L Monocytes % (Manual) 4 % (1-10) Eosinophils % (Manual) 3 % (0-3) Basophils % (Manual) 0 % (0-2) Band Neutrophils 3 % (0-8) Platelet Estimate Decreased L Platelet Morphology Normal Hypochromasia 1+ Anisocytosis 2+ Macrocytosis 1+ Sodium Level 141 MMOL/L (136-145) Potassium Level 3.2 MMOL/L (3.5-5.1) L Chloride Level 109 MMOL/L (98-107) H Carbon Dioxide Level 23 MMOL/L (21-32) Anion Gap 9 mmol/L (5-15) Blood Urea Nitrogen 32 mg/dL (7-18) H Creatinine 2.9 MG/DL (0.55-1.30) H Estimat Glomerular Filtration Rate 21.2 mL/min (>60) Glucose Level 77 MG/DL (74-106) Calcium Level 7.2 MG/DL (8.5-10.1) L Total Bilirubin 0.4 MG/DL (0.2-1.0) Aspartate Amino Transf (AST/SGOT) 18 U/L (15-37) Alanine Aminotransferase (ALT/SGPT) < 6 U/L (12-78) L Alkaline Phosphatase 108 U/L (46-116) Total Protein 6.1 G/DL (6.4-8.2) L Albumin 1.2 G/DL (3.4-5.0) L Globulin 4.9 g/dL Albumin/Globulin Ratio 0.2 (1.0-2.7) L Plan Problems: (1) Dehydration (2) Ventilator associated pneumonia (3) AUDREY (acute kidney injury) (4) Hypokalemia (5) Hyperkalemia (6) Hypomagnesemia (7) Anemia (8) Decubitus skin ulcer Assessment & Plan: Pt presented on admission with gross contractures, Multiple Pressure Injuries, Tracheostomy. Skin Assessed under tracheal collar and no evidence of skin breakdown noted. Tear noted to urinary meatus- no exudate noted. Scrotum is erythematous with scattered satellite lesions. Large ulcer noted to R scrotal sac (L)4cm x (W)4.6cm. Base of wound is erythematous ,moist with Biofilm. Sacral DTPI with clusters of small islands of slough with surrounding maroon and indurated areas (L)8cm x (W)12cm.Mild Odor noted. Partial thickness Pressure Injury Upper/outer R buttocks(L)1.8cm x (W)1.3cm. Base of wound is moist and viable. Edges adherent to base of wound. Surrounding non-blanching erythema with scattered areas of shearing noted. Partial thickness Pressure Inferior lower R buttocks.(L)0.8cm x (W)1.2cm. Base of wound is moist and viable. Edges adherent to base of wound. Surrounding non- blanching erythema with scattered shearing noted extending into R ischial tuberosity. Clusters of small hyperpigmentation noted to L trochanteric and L ischial tuberosity. R Heel is fluctuant with scattered dry eschar and surrounding Non-Blanchable erythema.(L)6.5cm x (W)8cm. DTPI distal/lateral R foot(L)3cm x (W)3cm. Base of wound is maroon and fluctuant . dry eschar noted to tip of R 1st metatarsal with surrounding non-blanchable erythema extending dorsally and laterally of metatarsal(L)5cm x (W)1.3cm Non-Blanchable erythema that is fluctuant at base noted to dorso/lateral L 5th metatarsal(L)0.6cm x (W)0.3cm. L Heel is boggy with non-blanchable erythema laterally. Hyperpigmentation from previous wound noted at L heel. Tx.Plan: Cleanse Sacral wound with Saline. Apply TheraHoney to slough. Apply Moisture Barrier Paste periwound. Cover with Optifoam drsg. Change daily and prn. Apply Moisture Barrier Paste to Wounds R upper and lower R Buttocks. Cover each wound with Optifoam drsg. Change every 3 days and prn. Apply Zinc Oxide Paste to Scrotal Wounds TID and prn. Apply Betadine to wounds R heel and R foot . Cover with ABD Pads and wrap with Kerlix every 3 days and prn. Apply Betadine to L foot. Cover with ABD Pads and wrap with Kerlix every 3 days and prn. Cover Bony Prominences as needed with Optifoam drsgs. Reposition at least every 2hours or as tolerated. Off-load heels with pillow. APM/VIRAL Mattress DAILY ESTIMATED NEEDS: Needs based on Critical care, 63kg 22-30 kcals/kg [id number] total kcals 1.25-2 g protein/kg 79-126 g total protein 25-30 mL/kg 8222-1848 total fluid mLs NUTRITION DIAGNOSIS: Swallowing difficulty r/ respiratory status as evidenced by pt is vent dep via trach, PEG dep. CURRENT TF:NPO ENTERAL NUTRITION RECOMMENDATIONS: Vital AF 1.2 @ 55ml/hr x 22 hrs to provide 1210ml, 1452kcal, 91g prot, 981ml free water - As medically able, rec Vital 1.2. Start @15ml/hr for 6 hrs, advance as tolerated 10ml/hr q4-6 hrs to goal. - Hold 1 hr before and after synthroid. - Flush per [place] over 30 degrees - Feed w/ hemodynamic stability. ADDITIONAL RECOMMENDATIONS: 1) Obtain calibrated bed scale wts-> recent adm wt was 63kg vs 68kg today 2) Monitor renal labs and lytes, need for renal formula 3) Rec WC eval -> currently NPO 4) Monitor hemodynamic stability, ability to feed (9) SOB (shortness of breath) (10) Hypernatremia (11) Aspiration pneumonia (12) Renal insufficiency (13) Respiratory insufficiency (14) Respiratory failure (15) Malnutrition (16) Sepsis Assessment & Plan: Leukocytosis, lactic acidosis, abnormal labs. In ICU resuscitation imaging noted micro noted. 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
[2020-05-11] MEDS: Meropenem 500 MG in NS 55 ML IVPB SCH ×2 (12:09→19:51)
--- NOTE | 2020-05-11 15:58 | Nephrology Progress Note ---
Assessment/Plan Plan Septic Shock MOF with Oliguric ARF. HD dependent. See orders. HD MWF. Ileus resolving. TF started. Subjective Subjective Obtunded. Objective Objective Last 24 Hour Vital Signs Date Time Temp Pulse Resp B/P (MAP) Pulse Ox O2 Delivery O2 Flow Rate FiO2 05/11/20 15:31 86 05/11/20 15:00 84 37 114/31 (58) 100 05/11/20 14:00 89 32 109/20 (49) 100 05/11/20 13:20 94 43 55 05/11/20 13:00 90 34 107/22 (50) 100 05/11/20 12:10 109/24 05/11/20 12:00 70 05/11/20 12:00 98.5 94 39 109/21 (50) 99 05/11/20 12:00 Mechanical Ventilator Mechanical Ventilator Mechanical Ventilator 05/11/20 11:30 94 29 100/32 (54) 98 05/11/20 11:22 95 05/11/20 11:18 95 46 55 05/11/20 11:00 95 45 110/58 (75) 99 05/11/20 10:00 100 39 92/13 (39) 100 05/11/20 09:45 99 31 122/16 (51) 100 05/11/20 09:30 88 28 125/46 (72) 100 05/11/20 09:19 95 40 100 05/11/20 09:15 92 28 136/23 (60) 100 05/11/20 09:00 93 35 130/24 (59) 100 05/11/20 08:00 Mechanical Ventilator Mechanical Ventilator Mechanical Ventilator 05/11/20 08:00 100 05/11/20 08:00 98.4 100 34 124/19 (54) 100 05/11/20 07:42 117/19 05/11/20 07:36 96 05/11/20 07:17 94 43 100 05/11/20 07:00 101 34 125/19 (54) 100 05/11/20 06:30 100 43 138/28 (64) 100 05/11/20 06:00 100 40 123/21 (55) 100 05/11/20 05:00 103 53 99/24 (49) 100 05/11/20 04:50 106 45 100 05/11/20 04:30 105 50 104/72 (83) 100 05/11/20 04:00 55 05/11/20 04:00 101 40 111/62 (78) 100 05/11/20 04:00 Mechanical Ventilator Mechanical Ventilator Mechanical Ventilator 05/11/20 04:00 101 05/11/20 03:30 99 39 108/65 (79) 100 05/11/20 03:00 104 45 109/64 (79) 100 05/11/20 02:31 100 39 100 05/11/20 02:30 97 28 118/69 (85) 100 05/11/20 02:00 98 29 118/65 (82) 100 05/11/20 01:30 90 29 120/68 (85) 100 05/11/20 01:00 83 30 115/67 (83) 100 05/11/20 00:37 88 36 100 05/11/20 00:30 91 30 110/61 (77) 100 05/11/20 00:11 120/62 05/11/20 00:00 55 05/11/20 00:00 Mechanical Ventilator Mechanical Ventilator Mechanical Ventilator 05/11/20 00:00 99.4 96 32 120/62 (81) 100 05/10/20 23:30 96 32 124/69 (87) 100 05/10/20 23:00 103 36 121/71 (88) 100 05/10/20 22:30 108 44 116/72 (87) 100 05/10/20 22:30 109 39 100 05/10/20 22:00 109 48 101/63 (76) 100 05/10/20 21:30 115 47 85/55 (65) 100 05/10/20 21:00 128 46 94/61 (72) 99 05/10/20 20:54 128 50 100 05/10/20 20:48 110 53 88/55 100 05/10/20 20:30 121 28 128/85 (99) 39 05/10/20 20:18 124 37 107/61 96 05/10/20 20:00 127 05/10/20 20:00 Mechanical Ventilator Mechanical Ventilator Mechanical Ventilator 05/10/20 20:00 55 05/10/20 20:00 99.0 127 40 118/72 (87) 95 05/10/20 19:30 113 25 124/71 (88) 96 05/10/20 19:00 89 20 99/79 (86) 100 05/10/20 18:43 91 30 55 05/10/20 18:30 93 30 87/21 (43) 100 05/10/20 18:00 98 30 97/27 (50) 100 05/10/20 17:45 100 30 90/27 (48) 100 05/10/20 17:19 96 30 55 05/10/20 17:15 95 30 98/22 (47) 99 05/10/20 17:00 97 30 103/28 (53) 99 05/10/20 16:45 92 29 102/27 (52) 98 05/10/20 16:30 91 30 100/19 (46) 97 05/10/20 16:00 99.4 90 30 102/15 (44) 98 05/10/20 16:00 55 05/10/20 16:00 Mechanical Ventilator Mechanical Ventilator Mechanical Ventilator 05/10/20 16:00 94 Intake and Output 05/10/20 05/11/20 19:00 07:00 Intake Total 1351.250 ml 823.375 ml Output Total 1005 ml 200 ml Balance 346.250 ml 623.375 ml Free Water 90 ml IV Total 1141.250 ml 823.375 ml Tube Feeding 90 ml Other 30 ml Output Urine Total 5 ml 200 ml Hemodialysis UF 1000 ml # Bowel Movements 100 Laboratory Tests 05/11/20 05:18: White Blood Count 33.2#*H, Red Blood Count 2.81L, Hemoglobin 9.5L, Hematocrit 30.3L, Mean Corpuscular Volume 108H, Mean Corpuscular Hemoglobin 33.7H, Mean Corpuscular Hemoglobin Concent 31.3L, Red Cell Distribution Width 21.6H, Platelet Count 88L, Mean Platelet Volume 8.3, Neutrophils (%) (Auto) , Lymphocytes (%) (Auto) , Monocytes (%) (Auto) , Eosinophils (%) (Auto) , Basophils (%) (Auto) , Differential Total Cells Counted 100, Neutrophils % (M anual) 88H, Lymphocytes % (Manual) 2L, Monocytes % (Manual) 4, Eosinophils % (Manual) 3, Basophils % (Manual) 0, Band Neutrophils 3, Platelet Estimate DecreasedL, Platelet Morphology Normal, Hypochromasia 1+, Anisocytosis 2+, Macrocytosis 1+, Sodium Level 141, Potassium Level 3.2L, Chloride Level 109H, Carbon Dioxide Level 23, Anion Gap 9, Blood Urea Nitrogen 32H, Creatinine 2.9H, Estimat Glomerular Filtration Rate 21.2, Glucose Level 77, Calcium Level 7.2L, Total Bilirubin 0.4, Aspartate Amino Transf (AST/SGOT) 18, Alanine Aminotransferase (ALT/SGPT) < 6L, Alkaline Phosphatase 108, Total Protein 6.1L, Albumin 1.2L, Globulin 4.9, Albumin/Globulin Ratio 0.2L 05/11/20 09:29: Arterial Blood pH 7.216*L, Arterial Blood Partial Pressure CO2 50.1H, Arterial Blood Partial Pressure O2 242.9H, Arterial Blood HCO3 19.9L, Arterial Blood Oxygen Saturation 99.0, Arterial Blood Base Excess -7.7L, Urbano Test Positive Height (Feet): 5 Height (Inches): 7.00 Weight (Pounds): 150 Objective On 6 mcgm/min Levophed CV RR Lungs B ronchi Trach clean Abd Distended!!!Diminished BS. E +2 edema. Femoral Mahurkar. Neuro obtunded. Has twitches.Nonfocal. Ayanna Maldonado MD May 11, 2020 15:58
--- NOTE | 2020-05-11 16:06 | General Progress Note ---
Subjective ROS Limited/Unobtainable: Yes Constitutional: Reports: malaise, weakness HEENT: Reports: no symptoms Cardiovascular: Reports: edema Respiratory: Reports: cough, shortness of breath, sputum Gastrointestinal/Abdominal: Reports: difficulty swallowing, nausea Genitourinary: Reports: no symptoms Neurologic/Psychiatric: Reports: pre-existing deficit Endocrine: Reports: no symptoms Hematologic/Lymphatic: Reports: no symptoms Allergies: Coded Allergies: No Known Allergies (Unverified , 02/23/12) All Systems: reviewed and negative except above Subjective back on pressors. remains on iv abx, uop poor. stable on the vent. labs r eviewed. no reports of bleeding. Objective Last 24 Hour Vital Signs Date Time Temp Pulse Resp B/P (MAP) Pulse Ox O2 Delivery O2 Flow Rate FiO2 05/11/20 15:31 86 05/11/20 15:00 84 37 114/31 (58) 100 05/11/20 14:00 89 32 109/20 (49) 100 05/11/20 13:20 94 43 55 05/11/20 13:00 90 34 107/22 (50) 100 05/11/20 12:10 109/24 05/11/20 12:00 70 05/11/20 12:00 98.5 94 39 109/21 (50) 99 05/11/20 12:00 Mechanical Ventilator Mechanical Ventilator Mechanical Ventilator 05/11/20 11:30 94 29 100/32 (54) 98 05/11/20 11:22 95 05/11/20 11:18 95 46 55 05/11/20 11:00 95 45 110/58 (75) 99 05/11/20 10:00 100 39 92/13 (39) 100 05/11/20 09:45 99 31 122/16 (51) 100 05/11/20 09:30 88 28 125/46 (72) 100 05/11/20 09:19 95 40 100 05/11/20 09:15 92 28 136/23 (60) 100 05/11/20 09:00 93 35 130/24 (59) 100 05/11/20 08:00 Mechanical Ventilator Mechanical Ventilator Mechanical Ventilator 05/11/20 08:00 100 05/11/20 08:00 98.4 100 34 124/19 (54) 100 05/11/20 07:42 117/19 05/11/20 07:36 96 05/11/20 07:17 94 43 100 05/11/20 07:00 101 34 125/19 (54) 100 05/11/20 06:30 100 43 138/28 (64) 100 05/11/20 06:00 100 40 123/21 (55) 100 05/11/20 05:00 103 53 99/24 (49) 100 05/11/20 04:50 106 45 100 05/11/20 04:30 105 50 104/72 (83) 100 05/11/20 04:00 55 05/11/20 04:00 101 40 111/62 (78) 100 05/11/20 04:00 Mechanical Ventilator Mechanical Ventilator Mechanical Ventilator 05/11/20 04:00 101 05/11/20 03:30 99 39 108/65 (79) 100 05/11/20 03:00 104 45 109/64 (79) 100 05/11/20 02:31 100 39 100 05/11/20 02:30 97 28 118/69 (85) 100 05/11/20 02:00 98 29 118/65 (82) 100 05/11/20 01:30 90 29 120/68 (85) 100 05/11/20 01:00 83 30 115/67 (83) 100 05/11/20 00:37 88 36 100 05/11/20 00:30 91 30 110/61 (77) 100 05/11/20 00:11 120/62 05/11/20 00:00 55 05/11/20 00:00 Mechanical Ventilator Mechanical Ventilator Mechanical Ventilator 05/11/20 00:00 99.4 96 32 120/62 (81) 100 05/10/20 23:30 96 32 124/69 (87) 100 05/10/20 23:00 103 36 121/71 (88) 100 05/10/20 22:30 108 44 116/72 (87) 100 05/10/20 22:30 109 39 100 05/10/20 22:00 109 48 101/63 (76) 100 05/10/20 21:30 115 47 85/55 (65) 100 05/10/20 21:00 128 46 94/61 (72) 99 05/10/20 20:54 128 50 100 05/10/20 20:48 110 53 88/55 100 05/10/20 20:30 121 28 128/85 (99) 39 05/10/20 20:18 124 37 107/61 96 05/10/20 20:00 127 05/10/20 20:00 Mechanical Ventilator Mechanical Ventilator Mechanical Ventilator 05/10/20 20:00 55 05/10/20 20:00 99.0 127 40 118/72 (87) 95 05/10/20 19:30 113 25 124/71 (88) 96 05/10/20 19:00 89 20 99/79 (86) 100 05/10/20 18:43 91 30 55 05/10/20 18:30 93 30 87/21 (43) 100 05/10/20 18:00 98 30 97/27 (50) 100 05/10/20 17:45 100 30 90/27 (48) 100 05/10/20 17:19 96 30 55 05/10/20 17:15 95 30 98/22 (47) 99 05/10/20 17:00 97 30 103/28 (53) 99 05/10/20 16:45 92 29 102/27 (52) 98 05/10/20 16:30 91 30 100/19 (46) 97 Intake and Output 05/10/20 05/11/20 19:00 07:00 Intake Total 1351.250 ml 823.375 ml Output Total 1005 ml 200 ml Balance 346.250 ml 623.375 ml Free Water 90 ml IV Total 1141.250 ml 823.375 ml Tube Feeding 90 ml Other 30 ml Output Urine Total 5 ml 200 ml Hemodialysis UF 1000 ml # Bowel Movements 100 Laboratory Tests 05/11/20 05:18: White Blood Count 33.2#*H, Red Blood Count 2.81L, Hemoglobin 9.5L, Hematocrit 30.3L, Mean Corpuscular Volume 108H, Mean Corpuscular Hemoglobin 33.7H, Mean Corpuscular Hemoglobin Concent 31.3L, Red Cell Distribution Width 21.6H, Platelet Count 88L, Mean Platelet Volume 8.3, Neutrophils (%) (Auto) , Lymphocytes (%) (Auto) , Monocytes (%) (Auto) , Eosinophils (%) (Auto) , Basophils (%) (Auto) , Differential Total Cells Counted 100, Neutrophils % (Manual) 88H, Lymphocytes % (Manual) 2L, Monocytes % (Manual) 4, Eosinophils % (Manual) 3, Basophils % (Manual) 0, Band Neutrophils 3, Platelet Estimate DecreasedL, Platelet Morphology Normal, Hypochromasia 1+, Anisocytosis 2+, Macrocytosis 1+, Sodium Level 141, Potassium Level 3.2L, Chloride Level 109H, Carbon Dioxide Level 23, Anion Gap 9, Blood Urea Nitrogen 32H, Creatinine 2.9H, Estimat Glomerular Filtration Rate 21.2, Glucose Level 77, Calcium Level 7.2L, Total Bilirubin 0.4, Aspartate Amino Transf (AST/SGOT) 18, Alanine Aminotransferase (ALT/SGPT) < 6L, Alkaline Phosphatase 108, Total Protein 6.1L, Albumin 1.2L, Globulin 4.9, Albumin/Globulin Ratio 0.2L 05/11/20 09:29: Arterial Blood pH 7.216*L, Arterial Blood Partial Pressure CO2 50.1H, Arterial Blood Partial Pressure O2 242.9H, Arterial Blood HCO3 19.9L, Arterial Blood Oxygen Saturation 99.0, Arterial Blood Base Excess -7.7L, Urbano Test Positive Height (Feet): 5 Height (Inches): 7.00 Weight (Pounds): 150 Objective General Appearance: WD/WN, lethargic, confused EENT: PERRL/EOMI, normal ENT inspection Neck: normal alignment, supple Cardiovascular: normal rate Respiratory/Chest: chest wall non-tender, lungs clear, crackles/rales, rhonchi - bilaterally Abdomen: normal bowel sounds, non tender, soft, no organomegaly Edema: no edema noted Arm (L), no edema noted Arm (R) Neurologic: disoriented, unresponsive, aphasia Skin: normal pigmentation Assessment/Plan Problem List: (1) Dehydration ICD Codes: E86.0 - Dehydration SNOMED: 52576251 (2) Ventilator associated pneumonia ICD Codes: J95.851 - Ventilator associated pneumonia SNOMED: 918095379, 48054489 (3) AUDREY (acute kidney injury) ICD Codes: N17.9 - Acute kidney failure, unspecified SNOMED: 0278002, 46674458 (4) Anemia ICD Codes: D64.9 - Anemia, unspecified SNOMED: 101530151, 481657195 (5) HCAP (healthcare-associated pneumonia) ICD Codes: J18.9 - Pneumonia, unspecified organism SNOMED: 584959949, 198659563 (6) CKD (chronic kidney disease) stage 3, GFR 30-59 ml/min ICD Codes: N18.3 - Chronic kidney disease, stage 3 (moderate) SNOMED: 134767930 (7) GIB (gastrointestinal bleeding) ICD Codes: K92.2 - Gastrointestinal hemorrhage, unspecified SNOMED: 18378042 (8) ARF (acute renal failure) ICD Codes: N17.9 - Acute kidney failure, unspecified SNOMED: 30248152, 816138902 (9) Pneumonia ICD Codes: J18.9 - Pneumonia, unspecified organism SNOMED: 666830761 (10) UTI (urinary tract infection) ICD Codes: N39.0 - Urinary tract infection, site not specified SNOMED: 57811731, 536593599 (11) Sepsis ICD Codes: A41.9 - Sepsis, unspecified organism SNOMED: 02090147 (12) Respiratory failure ICD Codes: J96.90 - Respiratory failure, unspecified, unspecified whether with hypoxia or hypercapnia SNOMED: 676565524 Status: stable, not improved Assessment/Plan: HD per renal pressors as needed IV abx per ID vent support resp rx monitor cxr- increased infil monitor abg. adjust vent monitor h/h transfuse as needed wound care turn q2 dvt/stress ulcer prophylaxis tube feeds monitor residuals cont keppra for sz prn atgregg for szs critical and guarded Jimi Tellez MD May 11, 2020 16:06
--- NOTE | 2020-05-11 19:13 | General Progress Note ---
Subjective Allergies: Coded Allergies: No Known Allergies (Unverified , 02/23/12) Subjective Above noted seen in ICU off feeds this am due to hypotension now made NPO Objective Last 24 Hour Vital Signs Date Time Temp Pulse Resp B/P (MAP) Pulse Ox O2 Delivery O2 Flow Rate FiO2 05/11/20 18:00 91 36 91/29 (49) 100 05/11/20 17:00 89 41 122/22 (55) 100 05/11/20 16:59 87 34 55 05/11/20 16:30 92 36 112/19 (50) 100 05/11/20 16:00 Mechanical Ventilator Mechanical Ventilator Mechanical Ventilator 05/11/20 16:00 98.4 91 31 107/24 (51) 99 05/11/20 16:00 70 05/11/20 15:31 86 05/11/20 15:09 88 34 55 05/11/20 15:00 84 37 114/31 (58) 100 05/11/20 14:00 89 32 109/20 (49) 100 05/11/20 13:20 94 43 55 05/11/20 13:00 90 34 107/22 (50) 100 05/11/20 12:10 109/24 05/11/20 12:00 70 05/11/20 12:00 98.5 94 39 109/21 (50) 99 05/11/20 12:00 Mechanical Ventilator Mechanical Ventilator Mechanical Ventilator 05/11/20 11:30 94 29 100/32 (54) 98 05/11/20 11:22 95 05/11/20 11:18 95 46 55 05/11/20 11:00 95 45 110/58 (75) 99 05/11/20 10:00 100 39 92/13 (39) 100 05/11/20 09:45 99 31 122/16 (51) 100 05/11/20 09:30 88 28 125/46 (72) 100 05/11/20 09:19 95 40 100 05/11/20 09:15 92 28 136/23 (60) 100 05/11/20 09:00 93 35 130/24 (59) 100 05/11/20 08:00 Mechanical Ventilator Mechanical Ventilator Mechanical Ventilator 05/11/20 08:00 100 05/11/20 08:00 98.4 100 34 124/19 (54) 100 05/11/20 07:42 117/19 1112/20 07:36 96 05/11/20 07:17 94 43 100 05/11/20 07:00 101 34 125/19 (54) 100 05/11/20 06:30 100 43 138/28 (64) 100 05/11/20 06:00 100 40 123/21 (55) 100 05/11/20 05:00 103 53 99/24 (49) 100 05/11/20 04:50 106 45 100 05/11/20 04:30 105 50 104/72 (83) 100 05/11/20 04:00 55 05/11/20 04:00 101 40 111/62 (78) 100 05/11/20 04:00 Mechanical Ventilator Mechanical Ventilator Mechanical Ventilator 05/11/20 04:00 101 05/11/20 03:30 99 39 108/65 (79) 100 05/11/20 03:00 104 45 109/64 (79) 100 05/11/20 02:31 100 39 100 05/11/20 02:30 97 28 118/69 (85) 100 05/11/20 02:00 98 29 118/65 (82) 100 05/11/20 01:30 90 29 120/68 (85) 100 05/11/20 01:00 83 30 115/67 (83) 100 05/11/20 00:37 88 36 100 05/11/20 00:30 91 30 110/61 (77) 100 05/11/20 00:11 120/62 05/11/20 00:00 55 05/11/20 00:00 Mechanical Ventilator Mechanical Ventilator Mechanical Ventilator 05/11/20 00:00 99.4 96 32 120/62 (81) 100 05/10/20 23:30 96 32 124/69 (87) 100 05/10/20 23:00 103 36 121/71 (88) 100 05/10/20 22:30 108 44 116/72 (87) 100 05/10/20 22:30 109 39 100 05/10/20 22:00 109 48 101/63 (76) 100 05/10/20 21:30 115 47 85/55 (65) 100 05/10/20 21:00 128 46 94/61 (72) 99 05/10/20 20:54 128 50 100 05/10/20 20:48 110 53 88/55 100 05/10/20 20:30 121 28 128/85 (99) 39 05/10/20 20:18 124 37 107/61 96 05/10/20 20:00 127 05/10/20 20:00 Mechanical Ventilator Mechanical Ventilator Mechanical Ventilator 05/10/20 20:00 55 05/10/20 20:00 99.0 127 40 118/72 (87) 95 05/10/20 19:30 113 25 124/71 (88) 96 Intake and Output 05/10/20 05/11/20 19:00 07:00 Intake Total 1351.250 ml 823.375 ml Output Total 1005 ml 200 ml Balance 346.250 ml 623.375 ml Free Water 90 ml IV Total 1141.250 ml 823.375 ml Tube Feeding 90 ml Other 30 ml Output Urine Total 5 ml 200 ml Hemodialysis UF 1000 ml # Bowel Movements 100 Laboratory Tests 05/11/20 05:18: White Blood Count 33.2#*H, Red Blood Count 2.81L, Hemoglobin 9.5L, Hematocrit 30.3L, Mean Corpuscular Volume 108H, Mean Corpuscular Hemoglobin 33.7H, Mean Corpuscular Hemoglobin Concent 31.3L, Red Cell Distribution Width 21.6H, Platelet Count 88L, Mean Platelet Volume 8.3, Neutrophils (%) (Auto) , Lymphocytes (%) (Auto) , Monocytes (%) (Auto) , Eosinophils (%) (Auto) , Basophils (%) (Auto) , Differential Total Cells Counted 100, Neutrophils % (Manual) 88H, Lymphocytes % (Manual) 2L, Monocytes % (Manual) 4, Eosinophils % (Manual) 3, Basophils % (Manual) 0, Band Neutrophils 3, Platelet Estimate DecreasedL, Platelet Morphology Normal, Hypochromasia 1+, Anisocytosis 2+, Macrocytosis 1+, Sodium Level 141, Potassium Level 3.2L, Chloride Level 109H, Carbon Dioxide Level 23, Anion Gap 9, Blood Urea Nitrogen 32H, Creatinine 2.9H, Estimat Glomerular Filtration Rate 21.2, Glucose Level 77, Calcium Level 7.2L, Total Bilirubin 0.4, Aspartate Amino Transf (AST/SGOT) 18, Alanine Aminotransferase (ALT/SGPT) < 6L, Alkaline Phosphatase 108, Total Protein 6.1L, Albumin 1.2L, Globulin 4.9, Albumin/Globulin Ratio 0.2L 05/11/20 09:29: Arterial Blood pH 7.216*L, Arterial Blood Partial Pressure CO2 50.1H, Arterial Blood Partial Pressure O2 242.9H, Arterial Blood HCO3 19.9L, Arterial Blood Oxygen Saturation 99.0, Arterial Blood Base Excess -7.7L, Urbano Test Positive Height (Feet): 5 Height (Inches): 7.00 Weight (Pounds): 150 Objective NCAT (+) trach Coarse BS RR abd soft, (+) GT, distended (++) contracted (+) edema Assessment/Plan Status: stable, not improved Assessment/Plan: Assessment - Upper GI bleed - resolved - hypotensive , on pressors - abd distention / ileus - h/o gastric ulcer - anemia - renal failure - resp failure - contractures - Poor prognosis Recommendations - Pressors / supportive care - rectal tube decompression - needs TPN with dialysis - defer to renal - monitor H&H - IV PPI - transfuse Clive Barajas MD May 11, 2020 19:13
[2020-05-11] MEDS: Dyna-Hex 2% Top Sol 2oz TOPIC SCH (19:51)
[2020-05-12] VITALS (27 sets, daily range): BP systolic 103–153; BP diastolic 49–103
[2020-05-12] MEDS: Meropenem 500 MG in NS 55 ML IVPB SCH ×3 (04:08→20:13)
[2020-05-12 04:51] LABS: HEMATOCRIT 27.1 % (42.0-52.0); HEMOGLOBIN 8.8 G/DL (14.2-18.0); MEAN CORPUSCULAR VOLUME 107 FL (80-99); PLATELET COUNT 53 K/UL (150-450); RED BLOOD COUNT 2.53 M/UL (4.70-6.10); RED CELL DISTRIBUTION WIDTH 21.6 % (11.6-14.8); WHITE BLOOD COUNT 18.9 K/UL (4.8-10.8)
[2020-05-12] MEDS: D5NS 1,000 ML IV SCH (05:00)
[2020-05-12 05:13] LABS: CALCIUM 7.5 MG/DL (8.5-10.1); CREATININE 3.2 MG/DL (0.55-1.30); POTASSIUM 2.8 MMOL/L (3.5-5.1)
[2020-05-12] MEDS ORDERED: Heparin Sod 1000 units/ml 10ml IV PRN (06:00)
[2020-05-12] MEDS ORDERED: Heparin 1000 units/ml 1ml Vial INJ PRN (06:00)
[2020-05-12] MEDS: Pantoprazole Inj IVP SCH ×2 (08:47→20:13)
[2020-05-12] MEDS: levETIRAcetam 750 MG in D5W 95 ML IV SCH ×2 (09:22→21:16)
--- NOTE | 2020-05-12 10:42 | Infectious Diseases Prog Note ---
"Assessment/Plan Assessment/Plan antibiotics : linezolid, meropenem A 1. klebsiella pneumonia 2. MRSA | coag neg staph sepsis s/p rx 3. renal failure 4. respiratory failure 5. seizures 6. CVA 7. CHF 8. leucocytosis improving 9. thrombocytopenia P 1. d/c linezolid 2. continue meropenem 3. sputum culture 4. will follow up cultures Subjective ROS Limited/Unobtainable: Yes Allergies: Coded Allergies: No Known Allergies (Unverified , 02/23/12) Objective Last 24 Hour Vital Signs Date Time Temp Pulse Resp B/P (MAP) Pulse Ox O2 Delivery O2 Flow Rate FiO2 05/12/20 09:15 83 50 40 05/12/20 09:00 97 40 121/74 (90) 96 05/12/20 08:00 82 05/12/20 08:00 97.6 90 38 126/71 (89) 98 05/12/20 08:00 90 38 126/71 (89) 98 05/12/20 08:00 40 05/12/20 07:00 90 32 135/81 (99) 99 05/12/20 06:45 93 36 40 05/12/20 06:00 91 35 126/73 (90) 97 05/12/20 05:20 87 39 55 05/12/20 05:00 90 37 104/89 (94) 100 05/12/20 04:00 85 05/12/20 04:00 Mechanical Ventilator Mechanical Ventilator Mechanical Ventilator 05/12/20 04:00 40 05/12/20 04:00 99.2 96 38 132/67 (88) 100 05/12/20 03:27 100 49 55 05/12/20 03:00 97 37 131/57 (81) 100 05/12/20 02:00 95 34 118/64 (82) 99 05/12/20 01:00 93 40 115/49 (71) 100 05/12/20 00:30 98 39 116/70 (85) 100 05/12/20 00:00 98.6 89 35 111/64 (80) 100 05/12/20 00:00 Mechanical Ventilator Mechanical Ventilator Mechanical Ventilator 05/12/20 00:00 55 05/11/20 23:30 89 39 106/62 (77) 100 05/11/20 23:28 91 05/11/20 23:05 85 41 55 11/12/20 23:00 86 38 108/62 (77) 97 05/11/20 22:30 83 40 101/70 (80) 99 05/11/20 22:00 90 39 122/68 (86) 100 05/11/20 21:33 89 37 70 05/11/20 21:30 95 39 124/64 (84) 100 05/11/20 21:00 88 42 123/66 (85) 100 05/11/20 20:30 90 42 121/64 (83) 100 05/11/20 20:00 Mechanical Ventilator Mechanical Ventilator Mechanical Ventilator 05/11/20 20:00 70 05/11/20 20:00 87 36 90/27 (48) 100 05/11/20 19:59 90 05/11/20 19:34 76 40 70 05/11/20 19:30 99.0 101 32 98/25 (49) 100 05/11/20 19:00 84 36 94/30 (51) 100 05/11/20 18:00 91 36 91/29 (49) 100 05/11/20 17:00 89 41 122/22 (55) 100 05/11/20 16:59 87 34 55 05/11/20 16:30 92 36 112/19 (50) 100 05/11/20 16:00 Mechanical Ventilator Mechanical Ventilator Mechanical Ventilator 05/11/20 16:00 98.4 91 31 107/24 (51) 99 05/11/20 16:00 70 05/11/20 15:31 86 05/11/20 15:09 88 34 55 05/11/20 15:00 84 37 114/31 (58) 100 05/11/20 14:00 89 32 109/20 (49) 100 05/11/20 13:20 94 43 55 05/11/20 13:00 90 34 107/22 (50) 100 05/11/20 12:10 109/24 05/11/20 12:00 70 05/11/20 12:00 98.5 94 39 109/21 (50) 99 05/11/20 12:00 Mechanical Ventilator Mechanical Ventilator Mechanical Ventilator 05/11/20 11:30 94 29 100/32 (54) 98 05/11/20 11:22 95 05/11/20 11:18 95 46 55 05/11/20 11:00 95 45 110/58 (75) 99 Height (Feet): 5 Height (Inches): 7.00 Weight (Pounds): 150 HEENT: status post trach Respiratory/Chest: lungs clear Cardiovascular: normal rate, regular rhythm, no gallop/murmur Abdomen: soft, non tender, other - GT Extremities: no edema Microbiology Date/Time Source Procedure Growth Status 05/09/20 15:40 Blood Blood Culture - Preliminary NO GROWTH AFTER 48 HOURS Resulted Laboratory Tests Test 05/11/20 21:06 05/12/20 04:00 POC Whole Blood Glucose 82 MG/DL (74-106) White Blood Count 18.9 K/UL (4.8-10.8) H Red Blood Count 2.53 M/UL (4.70-6.10) L Hemoglobin 8.8 G/DL (14.2-18.0) L Hematocrit 27.1 % (42.0-52.0) L Mean Corpuscular Volume 107 FL (80-99) H Mean Corpuscular Hemoglobin 34.8 PG (27.0-31.0) H Mean Corpuscular Hemoglobin Concent 32.5 G/DL (32.0-36.0) Red Cell Distribution Width 21.6 % (11.6-14.8) H Platelet Count 53 K/UL (150-450) L Mean Platelet Volume 8.0 FL (6.5-10.1) Neutrophils (%) (Auto) % (45.0-75.0) Lymphocytes (%) (Auto) % (20.0-45.0) Monocytes (%) (Auto) % (1.0-10.0) Eosinophils (%) (Auto) % (0.0-3.0) Basophils (%) (Auto) % (0.0-2.0) Differential Total Cells Counted 100 Neutrophils % (Manual) 95 % (45-75) H Lymphocytes % (Manual) 4 % (20-45) L Monocytes % (Manual) 1 % (1-10) Eosinophils % (Manual) 0 % (0-3) Basophils % (Manual) 0 % (0-2) Band Neutrophils 0 % (0-8) Platelet Estimate Decreased L Platelet Morphology Normal Hypochromasia 1+ Anisocytosis 2+ Macrocytosis 1+ Sodium Level 141 MMOL/L (136-145) Potassium Level 2.8 MMOL/L (3.5-5.1) L Chloride Level 110 MMOL/L (98-107) H Carbon Dioxide Level 23 MMOL/L (21-32) Anion Gap 9 mmol/L (5-15) Blood Urea Nitrogen 34 mg/dL (7-18) H Creatinine 3.2 MG/DL (0.55-1.30) H Estimat Glomerular Filtration Rate 18.9 mL/min (>60) Glucose Level 77 MG/DL (74-106) Calcium Level 7.5 MG/DL (8.5-10.1) L Current Medications Medications (Trade) Dose Ordered Sig/Lanny Route PRN Reason Start Time Stop Time Status Last Admin Dose Admin Acetaminophen (Tylenol) 650 mg Q4H PRN NG fever pain 05/03/20 21:30 06/02/20 21:29 Barium Sulfate (Readi-Cat 2) 450 ml NOW PRN ORAL Radiology Procedure 05/10/20 16:15 05/12/20 16:14 Chlorhexidine Gluconate (Kayla-Hex 2%) 1 applic DAILY@2000 TOPIC 05/04/20 20:00 08/02/20 19:59 05/11/20 19:51 Clonidine HCl (Catapres Tab) 0.1 mg Q4H PRN GT SBP above 150 05/03/20 21:30 08/01/20 21:29 Dextrose/Sodium Chloride 1,000 ml @ 50 mls/hr Q20H IV 05/06/20 11:00 06/05/20 10:59 05/12/20 05:00 Epoetin Asaf (Epoetin Asaf-EPBX(NON ESRD)) 10,000 unit FRI-FRI-FRI SUBQ 05/05/20 21:00 08/03/20 20:59 05/10/20 21:52 Heparin Sodium (Porcine) (Heparin Sod 1000 units/ml 10ml) 2,000 unit ONCE PRN IV HD 05/12/20 06:00 05/12/20 23:59 Heparin Sodium (Porcine) (Heparin) 1,000 unit POSTHD PRN INJ POST HD 05/12/20 06:00 05/12/20 23:59 Levetiracetam 750 mg/Dextrose 102.5 ml @ 440 mls/hr Q12HR IV 05/08/20 21:00 06/07/20 20:59 05/12/20 09:22 Levothyroxine Sodium (Synthroid) 100 mcg DAILY IV 05/05/20 09:00 06/03/20 10:59 05/12/20 08:47 Linezolid 300 ml @ 300 mls/hr Q12HR IVPB 05/05/20 13:00 05/16/20 23:59 05/12/20 08:47 Lorazepam (Ativan 2mg/ml 1ml) 1 mg Q4H PRN IV For Seizures 05/07/20 09:15 05/14/20 09:14 05/10/20 20:18 Meropenem 500 mg/ Sodium Chloride 55 ml @ 110 mls/hr Q8H IVPB 05/11/20 12:00 05/16/20 11:59 05/12/20 04:08 Midodrine (Pro-Amatine) 5 mg TID ORAL 05/05/20 09:00 08/03/20 08:59 05/12/20 08:47 Norepinephrine Bitartrate 250 ml @ 22.5 mls/hr Q24H IV 05/11/20 07:15 05/14/20 07:02 05/11/20 12:10 Pantoprazole (Protonix) 40 mg EVERY 12 HOURS IVP 05/04/20 21:00 06/03/20 20:59 05/12/20 08:47 Sodium Chloride 1,000 ml @ 500 mls/hr Q2H PRN IVLG sbp<90 during hd 05/12/20 06:00 05/12/20 23:59 Isaak Hair MD May 12, 2020 10:42"
[2020-05-12] MEDS ORDERED: Dextrose 10% 1,000 ML IV PRN (12:15)
--- NOTE | 2020-05-12 13:36 | Nephrology Progress Note ---
Assessment/Plan Plan Septic Shock MOF with Oliguric ARF. HD dependent. See orders. HD MWF. Ileus resolving. TPN started. Subjective Subjective Obtunded. Objective Objective Last 24 Hour Vital Signs Date Time Temp Pulse Resp B/P (MAP) Pulse Ox O2 Delivery O2 Flow Rate FiO2 05/12/20 13:00 102 37 129/60 (83) 99 05/12/20 12:00 Mechanical Ventilator Mechanical Ventilator Mechanical Ventilator 05/12/20 12:00 40 05/12/20 12:00 116 05/12/20 12:00 98.3 108 46 131/97 (108) 97 05/12/20 11:00 104 50 130/66 (87) 96 05/12/20 10:50 105 57 40 05/12/20 10:00 94 40 107/72 (84) 94 05/12/20 09:15 83 50 40 05/12/20 09:00 97 40 121/74 (90) 96 05/12/20 08:00 82 05/12/20 08:00 97.6 90 38 126/71 (89) 98 05/12/20 08:00 90 38 126/71 (89) 98 05/12/20 08:00 Mechanical Ventilator Mechanical Ventilator Mechanical Ventilator 05/12/20 08:00 40 05/12/20 07:00 90 32 135/81 (99) 99 05/12/20 06:45 93 36 40 05/12/20 06:00 91 35 126/73 (90) 97 05/12/20 05:20 87 39 55 05/12/20 05:00 90 37 104/89 (94) 100 05/12/20 04:00 85 05/12/20 04:00 Mechanical Ventilator Mechanical Ventilator Mechanical Ventilator 05/12/20 04:00 40 05/12/20 04:00 99.2 96 38 132/67 (88) 100 05/12/20 03:27 100 49 55 05/12/20 03:00 97 37 131/57 (81) 100 05/12/20 02:00 95 34 118/64 (82) 99 05/12/20 01:00 93 40 115/49 (71) 100 05/12/20 00:30 98 39 116/70 (85) 100 05/12/20 00:00 98.6 89 35 111/64 (80) 100 05/12/20 00:00 Mechanical Ventilator Mechanical Ventilator Mechanical Ventilator 05/12/20 00:00 55 05/11/20 23:30 89 39 106/62 (77) 100 05/11/20 23:28 91 05/11/20 23:05 85 41 55 05/11/20 23:00 86 38 108/62 (77) 97 05/11/20 22:30 83 40 101/70 (80) 99 05/11/20 22:00 90 39 122/68 (86) 100 05/11/20 21:33 89 37 70 05/11/20 21:30 95 39 124/64 (84) 100 05/11/20 21:00 88 42 123/66 (85) 100 05/11/20 20:30 90 42 121/64 (83) 100 05/11/20 20:00 Mechanical Ventilator Mechanical Ventilator Mechanical Ventilator 05/11/20 20:00 70 05/11/20 20:00 87 36 90/27 (48) 100 05/11/20 19:59 90 05/11/20 19:34 76 40 70 05/11/20 19:30 99.0 101 32 98/25 (49) 100 05/11/20 19:00 84 36 94/30 (51) 100 05/11/20 18:00 91 36 91/29 (49) 100 05/11/20 17:00 89 41 122/22 (55) 100 05/11/20 16:59 87 34 55 05/11/20 16:30 92 36 112/19 (50) 100 05/11/20 16:00 Mechanical Ventilator Mechanical Ventilator Mechanical Ventilator 05/11/20 16:00 98.4 91 31 107/24 (51) 99 05/11/20 16:00 70 05/11/20 15:31 86 05/11/20 15:09 88 34 55 05/11/20 15:00 84 37 114/31 (58) 100 05/11/20 14:00 89 32 109/20 (49) 100 Intake and Output 05/11/20 05/12/20 19:00 07:00 Intake Total 1242.58 ml 1157.50 ml Output Total 0 ml 45 ml Balance 1242.58 ml 1112.50 ml IV Total 1242.58 ml 1157.50 ml Output Urine Total 0 ml 45 ml Laboratory Tests 11/12/20 21:06: POC Whole Blood Glucose 82 05/12/20 04:00: White Blood Count 18.9H, Red Blood Count 2.53L, Hemoglobin 8.8L, Hematocrit 27 .1L, Mean Corpuscular Volume 107H, Mean Corpuscular Hemoglobin 34.8H, Mean C orpuscular Hemoglobin Concent 32.5, Red Cell Distribution Width 21.6H, Platelet Count 53L, Mean Platelet Volume 8.0, Neutrophils (%) (Auto) , Lymphocytes (%) (Auto) , Monocytes (%) (Auto) , Eosinophils (%) (Auto) , Basophils (%) (Auto) , Differential Total Cells Counted 100, Neutrophils % (Manual) 95H, Lymphocytes % (Manual) 4L, Monocytes % (Manual) 1, Eosinophils % (Manual) 0, Basophils % (Manual) 0, Band Neutrophils 0, Platelet Estimate DecreasedL, Platelet Morphology Normal, Hypochromasia 1+, Anisocytosis 2+, Macrocytosis 1+, Sodium Level 141, Potassium Level 2.8L, Chloride Level 110H, Carbon Dioxide Level 23, Anion Gap 9, Blood Urea Nitrogen 34H, Creatinine 3.2H, Estimat Glomerular Filtration Rate 18.9, Glucose Level 77, Calcium Level 7.5L Height (Feet): 5 Height (Inches): 7.00 Weight (Pounds): 150 Objective On 6 mcgm/min Levophed CV RR Lungs B ronchi Trach clean Abd Distended!!!Diminished BS. E +2 edema. Femoral Mahurkar. Neuro obtunded. Has twitches.Nonfocal. Ayanna Maldonado MD May 12, 2020 13:36
--- NOTE | 2020-05-12 14:08 | General Progress Note ---
Subjective ROS Limited/Unobtainable: Yes Constitutional: Reports: malaise, weakness HEENT: Reports: no symptoms Cardiovascular: Reports: no symptoms Respiratory: Reports: cough, shortness of breath, sputum Gastrointestinal/Abdominal: Reports: abdomen distended Genitourinary: Reports: no symptoms Neurologic/Psychiatric: Reports: pre-existing deficit, seizure Endocrine: Reports: no symptoms Hematologic/Lymphatic: Reports: anemia Allergies: Coded Allergies: No Known Allergies (Unverified , 02/23/12) All Systems: reviewed and negative except above Subjective remains on low dose pressors no fever. + clear output from gt. +diarrhea. no bleeding noted. poory responsive at baseline Objective Last 24 Hour Vital Signs Date Time Temp Pulse Resp B/P (MAP) Pulse Ox O2 Delivery O2 Flow Rate FiO2 05/12/20 13:00 102 37 129/60 (83) 99 05/12/20 12:00 Mechanical Ventilator Mechanical Ventilator Mechanical Ventilator 05/12/20 12:00 40 05/12/20 12:00 116 05/12/20 12:00 98.3 108 46 131/97 (108) 97 05/12/20 11:00 104 50 130/66 (87) 96 05/12/20 10:50 105 57 40 05/12/20 10:00 94 40 107/72 (84) 94 05/12/20 09:15 83 50 40 05/12/20 09:00 97 40 121/74 (90) 96 05/12/20 08:00 82 05/12/20 08:00 97.6 90 38 126/71 (89) 98 05/12/20 08:00 90 38 126/71 (89) 98 05/12/20 08:00 Mechanical Ventilator Mechanical Ventilator Mechanical Ventilator 05/12/20 08:00 40 05/12/20 07:00 90 32 135/81 (99) 99 05/12/20 06:45 93 36 40 05/12/20 06:00 91 35 126/73 (90) 97 05/12/20 05:20 87 39 55 05/12/20 05:00 90 37 104/89 (94) 100 05/12/20 04:00 85 05/12/20 04:00 Mechanical Ventilator Mechanical Ventilator Mechanical Ventilator 05/12/20 04:00 40 05/12/20 04:00 99.2 96 38 132/67 (88) 100 05/12/20 03:27 100 49 55 05/12/20 03:00 97 37 131/57 (81) 100 05/12/20 02:00 95 34 118/64 (82) 99 05/12/20 01:00 93 40 115/49 (71) 100 05/12/20 00:30 98 39 116/70 (85) 100 05/12/20 00:00 98.6 89 35 111/64 (80) 100 05/12/20 00:00 Mechanical Ventilator Mechanical Ventilator Mechanical Ventilator 05/12/20 00:00 55 05/11/20 23:30 89 39 106/62 (77) 100 05/11/20 23:28 91 05/11/20 23:05 85 41 55 05/11/20 23:00 86 38 108/62 (77) 97 05/11/20 22:30 83 40 101/70 (80) 99 05/11/20 22:00 90 39 122/68 (86) 100 05/11/20 21:33 89 37 70 05/11/20 21:30 95 39 124/64 (84) 100 05/11/20 21:00 88 42 123/66 (85) 100 05/11/20 20:30 90 42 121/64 (83) 100 05/11/20 20:00 Mechanical Ventilator Mechanical Ventilator Mechanical Ventilator 05/11/20 20:00 70 05/11/20 20:00 87 36 90/27 (48) 100 05/11/20 19:59 90 05/11/20 19:34 76 40 70 05/11/20 19:30 99.0 101 32 98/25 (49) 100 05/11/20 19:00 84 36 94/30 (51) 100 05/11/20 18:00 91 36 91/29 (49) 100 05/11/20 17:00 89 41 122/22 (55) 100 05/11/20 16:59 87 34 55 05/11/20 16:30 92 36 112/19 (50) 100 05/11/20 16:00 Mechanical Ventilator Mechanical Ventilator Mechanical Ventilator 05/11/20 16:00 98.4 91 31 107/24 (51) 99 05/11/20 16:00 70 05/11/20 15:31 86 05/11/20 15:09 88 34 55 05/11/20 15:00 84 37 114/31 (58) 100 Intake and Output 05/11/20 05/12/20 19:00 07:00 Intake Total 1242.58 ml 1157.50 ml Output Total 0 ml 45 ml Balance 1242.58 ml 1112.50 ml IV Total 1242.58 ml 1157.50 ml Output Urine Total 0 ml 45 ml Laboratory Tests 05/11/20 21:06: POC Whole Blood Glucose 82 05/12/20 04:00: White Blood Count 18.9H, Red Blood Count 2.53L, Hemoglobin 8.8L, Hematocrit 27.1L, Mean Corpuscular Volume 107H, Mean Corpuscular Hemoglobin 34.8H, Mean Corpuscular Hemoglobin Concent 32.5, Red Cell Distribution Width 21.6H, Platelet Count 53L, Mean Platelet Volume 8.0, Neutrophils (%) (Auto) , Lymphocytes (%) (Auto) , Monocytes (%) (Auto) , Eosinophils (%) (Auto) , Basophils (%) (Auto) , Differential Total Cells Counted 100, Neutrophils % (Manual) 95H, Lymphocytes % (Manual) 4L, Monocytes % (Manual) 1, Eosinophils % (Manual) 0, Basophils % (Manual) 0, Band Neutrophils 0, Platelet Estimate DecreasedL, Platelet Morphology Normal, Hypochromasia 1+, Anisocytosis 2+, Macrocytosis 1+, Sodium Level 141, Potassium Level 2.8L, Chloride Level 110H, Carbon Dioxide Level 23, Anion Gap 9, Blood Urea Nitrogen 34H, Creatinine 3.2H, Estimat Glomerular Filtration Rate 18.9, Glucose Level 77, Calcium Level 7.5L Height (Feet): 5 Height (Inches): 7.00 Weight (Pounds): 150 Objective General Appearance: WD/WN, lethargic, confused EENT: PERRL/EOMI, normal ENT inspection Neck: normal alignment, supple Cardiovascular: normal rate Respiratory/Chest: chest wall non-tender, lungs clear, crackles/rales, rhonchi - bilaterally Abdomen: normal bowel sounds, non tender, soft, no organomegaly Edema: no edema noted Arm (L), no edema noted Arm (R) Neurologic: disoriented, unresponsive, aphasia Skin: normal pigmentation Assessment/Plan Problem List: (1) Dehydration ICD Codes: E86.0 - Dehydration SNOMED: 19719395 (2) Ventilator associated pneumonia ICD Codes: J95.851 - Ventilator associated pneumonia SNOMED: 773359283, 26926530 (3) AUDREY (acute kidney injury) ICD Codes: N17.9 - Acute kidney failure, unspecified SNOMED: 3860053, 16757169 (4) Anemia ICD Codes: D64.9 - Anemia, unspecified SNOMED: 922095561, 650566820 (5) HCAP (healthcare-associated pneumonia) ICD Codes: J18.9 - Pneumonia, unspecified organism SNOMED: 209936568, 069919296 (6) CKD (chronic kidney disease) stage 3, GFR 30-59 ml/min ICD Codes: N18.3 - Chronic kidney disease, stage 3 (moderate) SNOMED: 357220636 (7) GIB (gastrointestinal bleeding) ICD Codes: K92.2 - Gastrointestinal hemorrhage, unspecified SNOMED: 17323468 (8) ARF (acute renal failure) ICD Codes: N17.9 - Acute kidney failure, unspecified SNOMED: 73286608, 552079938 (9) Pneumonia ICD Codes: J18.9 - Pneumonia, unspecified organism SNOMED: 053496525 (10) UTI (urinary tract infection) ICD Codes: N39.0 - Urinary tract infection, site not specified SNOMED: 34700469, 672342010 (11) Sepsis ICD Codes: A41.9 - Sepsis, unspecified organism SNOMED: 94134970 (12) Respiratory failure ICD Codes: J96.90 - Respiratory failure, unspecified, unspecified whether with hypoxia or hypercapnia SNOMED: 189914154 Status: stable, not improved Assessment/Plan: HD per renal pressors as needed IV abx per ID vent support resp rx monitor cxr- increased infil monitor abg. adjust vent monitor h/h transfuse as needed wound care turn q2 dvt/stress ulcer prophylaxis tube feeds monitor residuals cont keppra for sz prn ativan for szs critical and guarded Jimi Tellez MD May 12, 2020 14:08
--- NOTE | 2020-05-12 14:52 | Critical Care Progress Note ---
Assessment/Plan Assessment/Plan IMPRESSION: Respiratory failure chronic, chronic encephalopathy, sepsis, leukocytosis, G-tube, aspiration, acute on chronic renal failure, electrolyte abnormality, failure to thrive, severe protein-calorie malnutrition, chronic CO2 retention; Hypoxemia, worsening acidemia, tachypnea RECOMMENDATIONS: Care noted; ABG and monitor needs for oxygen; on pressors as needed; TPN with low protein levels per Renal; Supportive care. IV antibiotics and adjust and discuss. Respiratory support and vent management- taper oxygen needs as able, monitor acid base and hyperventilate residential medications. Monitor clinically. Prognosis is overall poor for meaningful recovery but still full code . monitor labs and adjust therapy; on HD and UF as able renal ID cardiology; await further recommendations and stabilization remains critical medications/laboratory data/nursing notes/ICU care reviewed in detail note reviewed and edited care discussed with RN and RT ICU time spent >40 minutes Critical Care - Subjective Interval Events: doing poorly care noted off feeds discussing TPN ROS Limited/Unobtainable: Yes Condition: critical EKG Rhythm: Sinus Tachycardia Residuals: high I&O: Intake and Output 05/11/20 05/12/20 19:00 07:00 Intake Total 1242.58 ml 1157.50 ml Output Total 0 ml 45 ml Balance 1242.58 ml 1112.50 ml IV Total 1242.58 ml 1157.50 ml Output Urine Total 0 ml 45 ml Critical Care - Objective Last 24 Hour Vital Signs Date Time Temp Pulse Resp B/P (MAP) Pulse Ox O2 Delivery O2 Flow Rate FiO2 05/12/20 14:00 98 41 117/58 (77) 96 05/12/20 13:00 102 37 129/60 (83) 99 05/12/20 13:00 100 36 40 05/12/20 12:00 Mechanical Ventilator Mechanical Ventilator Mechanical Ventilator 05/12/20 12:00 40 05/12/20 12:00 116 05/12/20 12:00 98.3 108 46 131/97 (108) 97 05/12/20 11:00 104 50 130/66 (87) 96 05/12/20 10:50 105 57 40 05/12/20 10:00 94 40 107/72 (84) 94 05/12/20 09:15 83 50 40 05/12/20 09:00 97 40 121/74 (90) 96 05/12/20 08:00 82 05/12/20 08:00 97.6 90 38 126/71 (89) 98 05/12/20 08:00 90 38 126/71 (89) 98 05/12/20 08:00 Mechanical Ventilator Mechanical Ventilator Mechanical Ventilator 05/12/20 08:00 40 05/12/20 07:00 90 32 135/81 (99) 99 05/12/20 06:45 93 36 40 05/12/20 06:00 91 35 126/73 (90) 97 05/12/20 05:20 87 39 55 05/12/20 05:00 90 37 104/89 (94) 100 05/12/20 04:00 85 05/12/20 04:00 Mechanical Ventilator Mechanical Ventilator Mechanical Ventilator 05/12/20 04:00 40 05/12/20 04:00 99.2 96 38 132/67 (88) 100 05/12/20 03:27 100 49 55 05/12/20 03:00 97 37 131/57 (81) 100 05/12/20 02:00 95 34 118/64 (82) 99 05/12/20 01:00 93 40 115/49 (71) 100 05/12/20 00:30 98 39 116/70 (85) 100 05/12/20 00:00 98.6 89 35 111/64 (80) 100 05/12/20 00:00 Mechanical Ventilator Mechanical Ventilator Mechanical Ventilator 05/12/20 00:00 55 05/11/20 23:30 89 39 106/62 (77) 100 05/11/20 23:28 91 05/11/20 23:05 85 41 55 05/11/20 23:00 86 38 108/62 (77) 97 05/11/20 22:30 83 40 101/70 (80) 99 05/11/20 22:00 90 39 122/68 (86) 100 05/11/20 21:33 89 37 70 05/11/20 21:30 95 39 124/64 (84) 100 05/11/20 21:00 88 42 123/66 (85) 100 05/11/20 20:30 90 42 121/64 (83) 100 05/11/20 20:00 Mechanical Ventilator Mechanical Ventilator Mechanical Ventilator 05/11/20 20:00 70 05/11/20 20:00 87 36 90/27 (48) 100 05/11/20 19:59 90 05/11/20 19:34 76 40 70 05/11/20 19:30 99.0 101 32 98/25 (49) 100 05/11/20 19:00 84 36 94/30 (51) 100 05/11/20 18:00 91 36 91/29 (49) 100 05/11/20 17:00 89 41 122/22 (55) 100 05/11/20 16:59 87 34 55 05/11/20 16:30 92 36 112/19 (50) 100 05/11/20 16:00 Mechanical Ventilator Mechanical Ventilator Mechanical Ventilator 05/11/20 16:00 98.4 91 31 107/24 (51) 99 05/11/20 16:00 70 05/11/20 15:31 86 05/11/20 15:09 88 34 55 05/11/20 15:00 84 37 114/31 (58) 100 Labs: Laboratory Tests 05/11/20 21:06: POC Whole Blood Glucose 82 05/12/20 04:00: White Blood Count 18.9H, Red Blood Count 2.53L, Hemoglobin 8.8L, Hematocrit 27.1L, Mean Corpuscular Volume 107H, Mean Corpuscular Hemoglobin 34.8H, Mean Corpuscular Hemoglobin Concent 32.5, Red Cell Distribution Width 21.6H, Platelet Count 53L, Mean Platelet Volume 8.0, Neutrophils (%) (Auto) , Lymphocytes (%) (Auto) , Monocytes (%) (Auto) , Eosinophils (%) (Auto) , Basophils (%) (Auto) , Differential Total Cells Counted 100, Neutrophils % (Manual) 95H, Lymphocytes % (Manual) 4L, Monocytes % (Manual) 1, Eosinophils % (Manual) 0, Basophils % (Manual) 0, Band Neutrophils 0, Platelet Estimate DecreasedL, Platelet Morphology Normal, Hypochromasia 1+, Anisocytosis 2+, Macrocytosis 1+, Sodium Level 141, Potassium Level 2.8L, Chloride Level 110H, Carbon Dioxide Level 23, Anion Gap 9, Blood Urea Nitrogen 34H, Creatinine 3.2H, Estimat Glomerular Filtration Rate 18.9, Glucose Level 77, Calcium Level 7.5L Objective: WDWN NAD reduced breath sounds bilaterally some rhonchi [id number] tachy without MRG hypoactive distended GT no CCE significant contractures nonfocal obtunded trach in place Vent skin noted obtunded Micro: Microbiology Date/Time Source Procedure Growth Status 05/09/20 15:40 Blood Blood Culture - Preliminary NO GROWTH AFTER 48 HOURS Resulted Accucheck: 85 Mansoor Martinez MD May 12, 2020 14:52
--- NOTE | 2020-05-12 14:56 | Surgery Progress Note ---
Surgery Progress Note Subjective Procedure Performed Left femoral temporary hemodialysis catheter insertion Additional Comments off pressors plan for CT today lots of respiratory variation Objective Last 24 Hour Vital Signs Date Time Temp Pulse Resp B/P (MAP) Pulse Ox O2 Delivery O2 Flow Rate FiO2 05/12/20 14:00 98 41 117/58 (77) 96 05/12/20 13:00 102 37 129/60 (83) 99 05/12/20 13:00 100 36 40 05/12/20 12:00 Mechanical Ventilator Mechanical Ventilator Mechanical Ventilator 05/12/20 12:00 40 05/12/20 12:00 116 05/12/20 12:00 98.3 108 46 131/97 (108) 97 05/12/20 11:00 104 50 130/66 (87) 96 05/12/20 10:50 105 57 40 05/12/20 10:00 94 40 107/72 (84) 94 05/12/20 09:15 83 50 40 05/12/20 09:00 97 40 121/74 (90) 96 05/12/20 08:00 82 05/12/20 08:00 97.6 90 38 126/71 (89) 98 05/12/20 08:00 90 38 126/71 (89) 98 05/12/20 08:00 Mechanical Ventilator Mechanical Ventilator Mechanical Ventilator 05/12/20 08:00 40 05/12/20 07:00 90 32 135/81 (99) 99 05/12/20 06:45 93 36 40 05/12/20 06:00 91 35 126/73 (90) 97 05/12/20 05:20 87 39 55 05/12/20 05:00 90 37 104/89 (94) 100 05/12/20 04:00 85 05/12/20 04:00 Mechanical Ventilator Mechanical Ventilator Mechanical Ventilator 05/12/20 04:00 40 05/12/20 04:00 99.2 96 38 132/67 (88) 100 05/12/20 03:27 100 49 55 05/12/20 03:00 97 37 131/57 (81) 100 05/12/20 02:00 95 34 118/64 (82) 99 05/12/20 01:00 93 40 115/49 (71) 100 05/12/20 00:30 98 39 116/70 (85) 100 05/12/20 00:00 98.6 89 35 111/64 (80) 100 05/12/20 00:00 Mechanical Ventilator Mechanical Ventilator Mechanical Ventilator 05/12/20 00:00 55 05/11/20 23:30 89 39 106/62 (77) 100 05/11/20 23:28 91 05/11/20 23:05 85 41 55 05/11/20 23:00 86 38 108/62 (77) 97 05/11/20 22:30 83 40 101/70 (80) 99 05/11/20 22:00 90 39 122/68 (86) 100 05/11/20 21:33 89 37 70 05/11/20 21:30 95 39 124/64 (84) 100 05/11/20 21:00 88 42 123/66 (85) 100 05/11/20 20:30 90 42 121/64 (83) 100 05/11/20 20:00 Mechanical Ventilator Mechanical Ventilator Mechanical Ventilator 05/11/20 20:00 70 05/11/20 20:00 87 36 90/27 (48) 100 05/11/20 19:59 90 05/11/20 19:34 76 40 70 05/11/20 19:30 99.0 101 32 98/25 (49) 100 05/11/20 19:00 84 36 94/30 (51) 100 05/11/20 18:00 91 36 91/29 (49) 100 05/11/20 17:00 89 41 122/22 (55) 100 05/11/20 16:59 87 34 55 05/11/20 16:30 92 36 112/19 (50) 100 05/11/20 16:00 Mechanical Ventilator Mechanical Ventilator Mechanical Ventilator 05/11/20 16:00 98.4 91 31 107/24 (51) 99 05/11/20 16:00 70 05/11/20 15:31 86 05/11/20 15:09 88 34 55 05/11/20 15:00 84 37 114/31 (58) 100 I&O Intake and Output 05/11/20 05/12/20 19:00 07:00 Intake Total 1242.58 ml 1157.50 ml Output Total 0 ml 45 ml Balance 1242.58 ml 1112.50 ml IV Total 1242.58 ml 1157.50 ml Output Urine Total 0 ml 45 ml Dressing: saturated Cardiovascular: RSR Respiratory: decreased breath sounds Abdomen: non-tender, present bowel sounds Extremities: no tenderness, no cyanosis Laboratory Tests Test 05/11/20 21:06 05/12/20 04:00 POC Whole Blood Glucose 82 MG/DL (74-106) White Blood Count 18.9 K/UL (4.8-10.8) H Red Blood Count 2.53 M/UL (4.70-6.10) L Hemoglobin 8.8 G/DL (14.2-18.0) L Hematocrit 27.1 % (42.0-52.0) L Mean Corpuscular Volume 107 FL (80-99) H Mean Corpuscular Hemoglobin 34.8 PG (27.0-31.0) H Mean Corpuscular Hemoglobin Concent 32.5 G/DL (32.0-36.0) Red Cell Distribution Width 21.6 % (11.6-14.8) H Platelet Count 53 K/UL (150-450) L Mean Platelet Volume 8.0 FL (6.5-10.1) Neutrophils (%) (Auto) % (45.0-75.0) Lymphocytes (%) (Auto) % (20.0-45.0) Monocytes (%) (Auto) % (1.0-10.0) Eosinophils (%) (Auto) % (0.0-3.0) Basophils (%) (Auto) % (0.0-2.0) Differential Total Cells Counted 100 Neutrophils % (Manual) 95 % (45-75) H Lymphocytes % (Manual) 4 % (20-45) L Monocytes % (Manual) 1 % (1-10) Eosinophils % (Manual) 0 % (0-3) Basophils % (Manual) 0 % (0-2) Band Neutrophils 0 % (0-8) Platelet Estimate Decreased L Platelet Morphology Normal Hypochromasia 1+ Anisocytosis 2+ Macrocytosis 1+ Sodium Level 141 MMOL/L (136-145) Potassium Level 2.8 MMOL/L (3.5-5.1) L Chloride Level 110 MMOL/L (98-107) H Carbon Dioxide Level 23 MMOL/L (21-32) Anion Gap 9 mmol/L (5-15) Blood Urea Nitrogen 34 mg/dL (7-18) H Creatinine 3.2 MG/DL (0.55-1.30) H Estimat Glomerular Filtration Rate 18.9 mL/min (>60) Glucose Level 77 MG/DL (74-106) Calcium Level 7.5 MG/DL (8.5-10.1) L Plan Problems: (1) Dehydration (2) Ventilator associated pneumonia (3) AUDREY (acute kidney injury) (4) Hypokalemia (5) Hyperkalemia (6) Hypomagnesemia (7) Anemia (8) Decubitus skin ulcer Assessment & Plan: Pt presented on admission with gross contractures, Multiple Pressure Injuries, Tracheostomy. Skin Assessed under tracheal collar and no evidence of skin breakdown noted. Tear noted to urinary meatus- no exudate noted. Scrotum is erythematous with scattered satellite lesions. Large ulcer noted to R scrotal sac (L)4cm x (W)4.6cm. Base of wound is erythematous ,moist with Biofilm. Sacral DTPI with clusters of small islands of slough with surrounding maroon and indurated areas (L)8cm x (W)12cm.Mild Odor noted. Partial thickness Pressure Injury Upper/outer R buttocks(L)1.8cm x (W)1.3cm. Base of wound is moist and viable. Edges adherent to base of wound. Surrounding non-blanching erythema with scattered areas of shearing noted. Partial thickness Pressure Inferior lower R buttocks.(L)0.8cm x (W)1.2cm. Base of wound is moist and viable. Edges adherent to base of wound. Surrounding non- blanching erythema with scattered shearing noted extending into R ischial tuber osity. Clusters of small hyperpigmentation noted to L trochanteric and L ischial tuberosity. R Heel is fluctuant with scattered dry eschar and surrounding Non-Blanchable erythema.(L)6.5cm x (W)8cm. DTPI distal/lateral R foot(L)3cm x (W)3cm. Base of wound is maroon and fluctuant. dry eschar noted to tip of R 1st metatarsal with surrounding non-blanchable erythema extending dorsally and laterally of metatarsal(L)5cm x (W)1.3cm Non-Blanchable erythema that is fluctuant at base noted to dorso/lateral L 5th metatarsal(L)0.6cm x (W)0.3cm. L Heel is boggy with non-blanchable erythema laterally. Hyperpigmentation from previous wound noted at L heel. Tx.Plan: Cleanse Sacral wound with Saline. Apply TheraHoney to slough. Apply Moisture Barrier Paste periwound. Cover with Optifoam drsg. Change daily and prn. Apply Moisture Barrier Paste to Wounds R upper and lower R Buttocks. Cover each wound with Optifoam drsg. Change every 3 days and prn. Apply Zinc Oxide Paste to Scrotal Wounds TID and prn. Apply Betadine to wounds R heel and R foot . Cover with ABD Pads and wrap with Kerlix every 3 days and prn. Apply Betadine to L foot. Cover with ABD Pads and wrap with Kerlix every 3 days and prn. Cover Bony Prominences as needed with Optifoam drsgs. Reposition at least every 2hours or as tolerated. Off-load heels with pillow. APM/VIRAL Mattress DAILY ESTIMATED NEEDS: Needs based on Critical care, 63kg 22-30 kcals/kg 3296-9752 total kcals 1.25-2 g protein/kg 79-126 g total protein 25-30 mL/kg 5615-1516 total fluid mLs NUTRITION DIAGNOSIS: Swallowing difficulty r/ respiratory status as evidenced by pt is vent dep via trach, PEG dep. CURRENT TF:NPO ENTERAL NUTRITION RECOMMENDATIONS: Vital AF 1.2 @ 55ml/hr x 22 hrs to provide 1210ml, 1452kcal, 91g prot, 981ml free water - As medically able, rec Vital 1.2. Start @15ml/hr for 6 hrs, advance as tolerated 10ml/hr q4-6 hrs to goal. - Hold 1 hr before and after synthroid. - Flush per , HOB over 30 degrees - Feed w/ hemodynamic stability. ADDITIONAL RECOMMENDATIONS: 1) Obtain calibrated bed scale wts-> recent adm wt was 63kg vs 68kg today 2) Monitor renal labs and lytes, need for renal formula 3) Rec WC eval -> currently NPO 4) Monitor hemodynamic stability, ability to feed (9) SOB (shortness of breath) (10) Hypernatremia (11) Aspiration pneumonia (12) Renal insufficiency (13) Respiratory insufficiency (14) Respiratory failure (15) Malnutrition (16) Sepsis Assessment & Plan: Leukocytosis, lactic acidosis, abnormal labs. In ICU resuscitation imaging noted micro noted. 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
[2020-05-12] MEDS: Norepinephrine 4mg/NS Premix 250 ML IV SCH (17:00)
--- NOTE | 2020-05-12 17:05 | Diagnostic Imaging Report ---
Indication: Abdominal distention Technique: Spiral acquisitions obtained through the abdomen and pelvis. Patient ingested only a very limited amount of oral contrast, unable to tolerate No IV contrast utilized, per referring physician request.. Multiplanar reconstructions were generated. Total dose length product 502 mGycm. CTDIvol(s) 8 mGy. Dose reduction achieved using automated exposure control Comparison: 03/09/2020 Findings: Exam is very limited due to lack of IV and sufficient enteric contrast as well as soft tissue edema resulting in loss of inherent soft tissue contrast. Small bowel loops are diffusely dilated and gas filled. No definite nondilated small bowel is visualized. Degree of distention is somewhat increased from the prior CT scan. Much of the colon is gas filled, upper limits normal in caliber, with the cecum (which is in the right upper quadrant) bordering on rand distention this is similar to the previous exam. The esophagus is dilated and gas filled. There is mild esophageal wall thickening at the gastroesophageal junction; this appears similar to the previous exam. Contrast is seen within the stomach. Gastrostomy is again demonstrated. There is a small amount free intraperitoneal fluid, predominantly in the right lower quadrant mesenteric root and in the right upper quadrant. No definite free intraperitoneal gas is evident. There is a rectal tube in place. Lack of IV contrast limits assessment of the solid organs. The gallbladder is nondistended. The liver, bile ducts, pancreas, spleen, adrenals, right kidney are unremarkable. The left kidney demonstrates a lower pole cyst. The bladder demonstrates mild wall thickening. The prostate is enlarged. There is diffuse edema of the presacral fat and diffuse generalized edema of the abdominal and mesenteric fat. There are small bilateral pleural effusions. There is extensive consolidation of both lung bases, with in particular very dense consolidation occupying most of the visualized left lower lobe and right middle lobe The bones demonstrate degenerative spondylosis changes. There is a chronic fracture of the left hip, and chronic erosive changes of the left acetabulum. Chronic inflammatory soft tissue seen surrounding the left hip. There is evidence of contracture of the right hip Impression: Diffusely mildly dilated small bowel loops, overall degree of distention slightly increased from 03/09/2020. No definite transition point demonstrated; findings are probably on the basis of ileus or age-related dysmotility. There is also some dilated colon again demonstrated Evidence of anasarca, with ascites fluid, extensive edema of the subcutaneous fat, abdominal fat, as well as bilateral pleural effusions Extensive bilateral diffuse pulmonary consolidation, with particularly dense consolidation in the left lower lobe and right middle lobe. Findings most likely represent pneumonia, but could also represent pulmonary edema Dilated gas-filled esophagus, significance uncertain. Mild esophageal wall thickening at the gastroesophageal junction could indicate esophagitis. This also previously demonstrated Rectal tube in place Chronic fracture of the left hip, chronic erosive changes of the left acetabulum, and auditory soft tissue surrounding the left hip. Evidence of right hip contractures Prostatomegaly. Bladder wall thickening, may indicate chronic bladder outlet obstruction versus cystitis Other findings as noted, including left lower pole renal cyst The CT scanner at [facility] is accredited by the [employer] and the scans are performed using protocols designed to limit radiation exposure to as low as reasonably achievable to attain images of sufficient resolution adequate for diagnostic evaluation.
--- NOTE | 2020-05-12 17:10 | Diagnostic Imaging Report ---
Indication: Abdominal distention Technique: Supine view of the abdomen Comparison: 05/10/2020 Findings: Diffuse gaseous distention of the small bowel and stomach is similar to the previous study. There is also some gaseous distention of the hepatic flexure of the colon. Surgical clips are seen projected to the left of the spine. Findings are unchanged Impression: Unchanged gaseous distention of small bowel, stomach, distal colon. Most likely secondary to ileus.
[2020-05-12] MEDS: TPN IV SCH (20:00)
[2020-05-12] MEDS: FAT EMULSION 20% IV SCH (20:00)
[2020-05-12] MEDS: Dyna-Hex 2% Top Sol 2oz TOPIC SCH (20:13)
[2020-05-12] MEDS: Epoetin Alfa-EPBX (NON ESRD)10,000 unit/ml vial SUBQ SCH (20:27)
--- NOTE | 2020-05-12 20:38 | General Progress Note ---
Subjective Allergies: Coded Allergies: No Known Allergies (Unverified , 02/23/12) Subjective Above noted seen in ICU NPO due to ileus TPN orders given Objective Last 24 Hour Vital Signs Date Time Temp Pulse Resp B/P (MAP) Pulse Ox O2 Delivery O2 Flow Rate FiO2 05/12/20 20:00 Mechanical Ventilator Mechanical Ventilator Mechanical Ventilator 05/12/20 20:00 99.3 93 35 122/76 (91) 100 05/12/20 20:00 40 05/12/20 20:00 70 05/12/20 19:38 99 05/12/20 19:10 105 54 40 05/12/20 19:00 98 50 153/103 (120) 96 05/12/20 18:00 100 45 119/73 (88) 94 05/12/20 17:30 106 41 128/80 (96) 95 05/12/20 17:28 103 42 118/71 (87) 96 05/12/20 17:00 106 40 40 05/12/20 17:00 103 44 120/63 (82) 95 05/12/20 17:00 88/56 05/12/20 16:00 100 05/12/20 16:00 40 05/12/20 16:00 Mechanical Ventilator Mechanical Ventilator Mechanical Ventilator 05/12/20 16:00 98.9 98 32 114/71 (85) 99 05/12/20 15:00 94 24 115/64 (81) 99 05/12/20 15:00 100 39 40 05/12/20 14:00 98 41 117/58 (77) 96 05/12/20 13:00 102 37 129/60 (83) 99 05/12/20 13:00 100 36 40 05/12/20 12:00 Mechanical Ventilator Mechanical Ventilator Mechanical Ventilator 05/12/20 12:00 40 05/12/20 12:00 116 05/12/20 12:00 98.3 108 46 131/97 (108) 97 05/12/20 11:00 104 50 130/66 (87) 96 05/12/20 10:50 105 57 40 05/12/20 10:00 94 40 107/72 (84) 94 05/12/20 09:15 83 50 40 05/12/20 09:00 97 40 121/74 (90) 96 05/12/20 08:00 82 05/12/20 08:00 97.6 90 38 126/71 (89) 98 05/12/20 08:00 90 38 126/71 (89) 98 05/12/20 08:00 Mechanical Ventilator Mechanical Ventilator Mechanical Ventilator 05/12/20 08:00 40 05/12/20 07:00 90 32 135/81 (99) 99 05/12/20 06:45 93 36 40 05/12/20 06:00 91 35 126/73 (90) 97 05/12/20 05:20 87 39 55 05/12/20 05:00 90 37 104/89 (94) 100 05/12/20 04:00 85 05/12/20 04:00 Mechanical Ventilator Mechanical Ventilator Mechanical Ventilator 05/12/20 04:00 40 05/12/20 04:00 99.2 96 38 132/67 (88) 100 05/12/20 03:27 100 49 55 05/12/20 03:00 97 37 131/57 (81) 100 05/12/20 02:00 95 34 118/64 (82) 99 05/12/20 01:00 93 40 115/49 (71) 100 05/12/20 00:30 98 39 116/70 (85) 100 05/12/20 00:00 98.6 89 35 111/64 (80) 100 05/12/20 00:00 Mechanical Ventilator Mechanical Ventilator Mechanical Ventilator 05/12/20 00:00 55 05/11/20 23:30 89 39 106/62 (77) 100 05/11/20 23:28 91 05/11/20 23:05 85 41 55 05/11/20 23:00 86 38 108/62 (77) 97 05/11/20 22:30 83 40 101/70 (80) 99 05/11/20 22:00 90 39 122/68 (86) 100 05/11/20 21:33 89 37 70 05/11/20 21:30 95 39 124/64 (84) 100 05/11/20 21:00 88 42 123/66 (85) 100 Intake and Output 05/11/20 05/12/20 19:00 07:00 Intake Total 1242.58 ml 1157.50 ml Output Total 0 ml 45 ml Balance 1242.58 ml 1112.50 ml IV Total 1242.58 ml 1157.50 ml Output Urine Total 0 ml 45 ml Laboratory Tests 05/11/20 21:06: POC Whole Blood Glucose 82 05/12/20 04:00: White Blood Count 18.9H, Red Blood Count 2.53L, Hemoglobin 8.8L, Hematocrit 27.1L, Mean Corpuscular Volume 107H, Mean Corpuscular Hemoglobin 34.8H, Mean Corpuscular Hemoglobin Concent 32.5, Red Cell Distribution Width 21.6H, Platelet Count 53L, Mean Platelet Volume 8.0, Neutrophils (%) (Auto) , Lymphocytes (%) (Auto) , Monocytes (%) (Auto) , Eosinophils (%) (Auto) , Basophils (%) (Auto) , Differential Total Cells Counted 100, Neutrophils % (Manual) 95H, Lymphocytes % (Manual) 4L, Monocytes % (Manual) 1, Eosinophils % (Manual) 0, Basophils % (Manual) 0, Band Neutrophils 0, Platelet Estimate DecreasedL, Platelet Morphology Normal, Hypochromasia 1+, Anisocytosis 2+, Macrocytosis 1+, Sodium Level 141, Potassium Level 2.8L, Chloride Level 110H, Carbon Dioxide Level 23, Anion Gap 9, Blood Urea Nitrogen 34H, Creatinine 3.2H, Estimat Glomerular Filtration Rate 18.9, Glucose Level 77, Calcium Level 7.5L Height (Feet): 5 Height (Inches): 7.00 Weight (Pounds): 150 Objective NCAT (+) trach Coarse BS RR abd soft, (+) GT, distended (++) contracted (+) edema Assessment/Plan Status: stable, not improved Assessment/Plan: Assessment - Upper GI bleed - resolved - hypotensive , on pressors - abd distention / ileus - h/o gastric ulcer - anemia - renal failure - resp failure - contractures - Poor prognosis Recommendations - Pressors / supportive care - Begin TPN - rectal tube decompression - NGT --> LIS - monitor H&H - IV PPI - transfuse Clive Barajas MD May 12, 2020 20:38
[2020-05-12] MEDS ORDERED: Phytonadione 10 mg/mL 1ml amp SUBQ SCH (21:00)
[2020-05-13] VITALS (27 sets, daily range): BP systolic 113–176; BP diastolic 52–108
[2020-05-13] MEDS: D5NS 1,000 ML IV SCH ×2 (02:02→20:21)
[2020-05-13] MEDS: Meropenem 500 MG in NS 55 ML IVPB SCH (05:01)
[2020-05-13 05:23] LABS: HEMATOCRIT 27.3 % (42.0-52.0); HEMOGLOBIN 8.6 G/DL (14.2-18.0); MEAN CORPUSCULAR VOLUME 108 FL (80-99); PLATELET COUNT 36 K/UL (150-450); RED BLOOD COUNT 2.53 M/UL (4.70-6.10); RED CELL DISTRIBUTION WIDTH 20.9 % (11.6-14.8); WHITE BLOOD COUNT 11.2 K/UL (4.8-10.8)
[2020-05-13 06:03] LABS: ALANINE AMINOTRANSFERASE < 6 U/L (12-78); ALBUMIN 1.2 G/DL (3.4-5.0); ALBUMIN/GLOBULIN RATIO 0.2 (1.0-2.7); ALKALINE PHOSPHATASE 102 U/L (46-116); ANION GAP 8 mmol/L (5-15); ASPARTATE AMINO TRANSFERASE 17 U/L (15-37); BILIRUBIN,TOTAL 0.3 MG/DL (0.2-1.0); BLOOD UREA NITROGEN 20 mg/dL (7-18); CALCIUM 7.7 MG/DL (8.5-10.1); CARBON DIOXIDE 24 MMOL/L (21-32); CHLORIDE 105 MMOL/L (98-107); CREATININE 2.3 MG/DL (0.55-1.30); POTASSIUM 3.2 MMOL/L (3.5-5.1); SODIUM 137 MMOL/L (136-145)
[2020-05-13] MEDS: Pantoprazole Inj IVP SCH ×2 (08:48→20:20)
--- NOTE | 2020-05-13 08:55 | General Progress Note ---
Subjective ROS Limited/Unobtainable: No Allergies: Coded Allergies: No Known Allergies (Unverified , 02/23/12) Objective Last 24 Hour Vital Signs Date Time Temp Pulse Resp B/P (MAP) Pulse Ox O2 Delivery O2 Flow Rate FiO2 05/13/20 07:17 105 34 40 05/13/20 06:00 95 43 144/80 (101) 100 05/13/20 05:01 90 45 40 05/13/20 05:00 94 47 145/72 (96) 100 05/13/20 04:00 40 05/13/20 04:00 87 05/13/20 04:00 98.7 93 43 143/78 (99) 99 05/13/20 04:00 Mechanical Ventilator Mechanical Ventilator Mechanical Ventilator 05/13/20 03:42 96 41 40 05/13/20 03:00 101 38 135/67 (89) 99 05/13/20 02:00 90 27 113/52 (72) 98 05/13/20 01:00 94 32 119/59 (79) 100 05/13/20 00:40 96 33 40 05/13/20 00:00 40 05/13/20 00:00 98.4 90 37 116/60 (78) 100 05/13/20 00:00 97 05/13/20 00:00 Mechanical Ventilator Mechanical Ventilator Mechanical Ventilator 05/12/20 23:10 94 37 40 05/12/20 23:00 104 32 111/67 (82) 100 05/12/20 22:00 93 49 103/60 (74) 95 05/12/20 21:00 92 29 125/64 (84) 99 05/12/20 20:36 93 56 70 05/12/20 20:00 Mechanical Ventilator Mechanical Ventilator Mechanical Ventilator 05/12/20 20:00 99.3 93 35 122/76 (91) 100 05/12/20 20:00 40 05/12/20 20:00 70 05/12/20 19:38 99 05/12/20 19:10 105 54 40 05/12/20 19:00 98 50 153/103 (120) 96 05/12/20 18:00 100 45 119/73 (88) 94 05/12/20 17:30 106 41 128/80 (96) 95 05/12/20 17:28 103 42 118/71 (87) 96 05/12/20 17:00 106 40 40 05/12/20 17:00 103 44 120/63 (82) 95 05/12/20 17:00 88/56 05/12/20 16:00 100 05/12/20 16:00 40 05/12/20 16:00 Mechanical Ventilator Mechanical Ventilator Mechanical Ventilator 05/12/20 16:00 98.9 98 32 114/71 (85) 99 05/12/20 15:00 94 24 115/64 (81) 99 05/12/20 15:00 100 39 40 05/12/20 14:00 98 41 117/58 (77) 96 05/12/20 13:00 102 37 129/60 (83) 99 05/12/20 13:00 100 36 40 05/12/20 12:00 Mechanical Ventilator Mechanical Ventilator Mechanical Ventilator 05/12/20 12:00 40 05/12/20 12:00 116 05/12/20 12:00 98.3 108 46 131/97 (108) 97 05/12/20 11:00 104 50 130/66 (87) 96 05/12/20 10:50 105 57 40 05/12/20 10:00 94 40 107/72 (84) 94 05/12/20 09:15 83 50 40 05/12/20 09:00 97 40 121/74 (90) 96 Intake and Output 05/12/20 05/13/20 19:00 07:00 Intake Total 1247.5 ml 1015.0 ml Output Total 370 ml 2200 ml Balance 877.5 ml -1185.0 ml IV Total 1247.5 ml 1015.0 ml Output Urine Total 0 ml Stool Total 220 ml Gastric Drainage Total 150 ml 200 ml Hemodialysis UF 2000 ml # Voids 3 Laboratory Tests 05/12/20 12:21: POC Whole Blood Glucose [Pending] 05/12/20 18:22: POC Whole Blood Glucose 78 05/13/20 04:20: White Blood Count 11.2H, Red Blood Count 2.53L, Hemoglobin 8.6L, Hematocrit 27.3L, Mean Corpuscular Volume 108H, Mean Corpuscular Hemoglobin 34.1H, Mean Corpuscular Hemoglobin Concent 31.6L, Red Cell Distribution Width 20.9H, Platelet Count 36L, Mean Platelet Volume 12.2H, Neutrophils (%) (Auto) , Lymphocytes (%) (Auto) , Monocytes (%) (Auto) , Eosinophils (%) (Auto) , Basophils (%) (Auto) , Sodium Level 137, Potassium Level 3.2L, Chloride Level 105, Carbon Dioxide Level 24, Anion Gap 8, Blood Urea Nitrogen 20H, Creatinine 2.3H, Estimat Glomerular Filtration Rate 27.6, Glucose Level 102, Calcium Level 7.7L, Total Bilirubin 0.3, Aspartate Amino Transf (AST/SGOT) 17, Alanine Aminotransferase (ALT/SGPT) < 6L, Alkaline Phosphatase 102, Total Protein 6.0L, Albumin 1.2L, Globulin 4.8, Albumin/Globulin Ratio 0.2L 05/13/20 05:09: POC Whole Blood Glucose 105 Height (Feet): 5 Height (Inches): 7.00 Weight (Pounds): 150 General Appearance: no apparent distress EENT: normal ENT inspection Neck: supple Cardiovascular: normal rate Respiratory/Chest: decreased breath sounds Abdomen: normal bowel sounds, non tender, soft Extremities: non-tender Assessment/Plan Status: stable, not improved Assessment/Plan: Assessment/Plan Status: stable, not improved Assessment/Plan: Assessment - Upper GI bleed - resolved - hypotensive , on pressors - abd distention / ileus - h/o gastric ulcer - anemia - renal failure - resp failure - contractures - Poor prognosis Recommendations - Pressors / supportive care - TPN - rectal tube decompression - NGT --> LIS - monitor H&H - IV PPI - transfuse PRN Michael Domínguez MD May 13, 2020 08:55
[2020-05-13 09:21] LABS: PHOSPHORUS 2.2 MG/DL (2.5-4.9)
[2020-05-13] MEDS: levETIRAcetam 750 MG in D5W 95 ML IV SCH ×2 (09:27→20:20)
--- NOTE | 2020-05-13 11:26 | Pulmonolgy Critical Care Note ---
Critical Care - Asmt/Plan Assessment/Plan: Pulmonary CCM Progress Note Assessment/Plan Assessment/Plan IMPRESSION: Respiratory failure chronic, chronic encephalopathy, sepsis, leukoc ytosis, G-tube, aspiration, acute on chronic renal failure, electrolyte abnormality, failure to thrive, severe protein-calorie malnutrition, chronic CO2 retention; Hypoxemia, worsening acidemia, tachypnea RECOMMENDATIONS: Care noted; ABG and monitor needs for oxygen; on pressors as needed; TPN with low protein levels per Renal; Supportive care. IV antibiotics and adjust and discuss. Respiratory support and vent management- taper oxygen needs as able, monitor acid base and hyperventilate detention medications. Monitor clinically. Prognosis is overall poor for meaningful recovery but still full code . monitor labs and adjust therapy; on HD and UF as able renal ID cardiology; await further recommendations and stabilization remains critical medications/laboratory data/nursing notes/ICU care reviewed in detail note reviewed and edited care discussed with RN and RT ICU time spent >40 minutes Critical Care - Subjective Interval Events: doing poorly care noted off feeds due to ileus ROS Limited/Unobtainable: Yes Condition: critical EKG Rhythm: Sinus Tachycardia Residuals: high I&O: Critical Care - Objective Vital Signs noted Labs: noted Objective: WDWN NAD reduced breath sounds bilaterally some rhonchi [id number] tachy without MRG hypoactive distended GT no CCE significant contractures nonfocal obtunded trach in place Vent skin noted obtunded Micro: Microbiology Date/Time Source Procedure Growth Status 05/09/20 15:40 Blood Blood Culture - Preliminary NO GROWTH AFTER 48 HOURS Resulted Critical Care - Objective Last 24 Hour Vital Signs Date Time Temp Pulse Resp B/P (MAP) Pulse Ox O2 Delivery O2 Flow Rate FiO2 05/13/20 10:00 89 38 156/71 (99) 98 05/13/20 09:00 94 35 128/89 (102) 97 05/13/20 09:00 95 32 40 05/13/20 08:00 74 05/13/20 08:00 97.7 88 35 133/72 (92) 99 05/13/20 08:00 Mechanical Ventilator Mechanical Ventilator Mechanical Ventilator 05/13/20 08:00 40 05/13/20 07:17 105 34 40 05/13/20 07:00 94 31 128/72 (90) 97 05/13/20 06:00 95 43 144/80 (101) 100 05/13/20 05:01 90 45 40 05/13/20 05:00 94 47 145/72 (96) 100 05/13/20 04:00 40 05/13/20 04:00 87 05/13/20 04:00 98.7 93 43 143/78 (99) 99 05/13/20 04:00 Mechanical Ventilator Mechanical Ventilator Mechanical Ventilator 05/13/20 03:42 96 41 40 05/13/20 03:00 101 38 135/67 (89) 99 05/13/20 02:00 90 27 113/52 (72) 98 05/13/20 01:00 94 32 119/59 (79) 100 05/13/20 00:40 96 33 40 05/13/20 00:00 40 05/13/20 00:00 98.4 90 37 116/60 (78) 100 05/13/20 00:00 97 05/13/20 00:00 Mechanical Ventilator Mechanical Ventilator Mechanical Ventilator 05/12/20 23:10 94 37 40 05/12/20 23:00 104 32 111/67 (82) 100 05/12/20 22:00 93 49 103/60 (74) 95 05/12/20 21:00 92 29 125/64 (84) 99 05/12/20 20:36 93 56 70 05/12/20 20:00 Mechanical Ventilator Mechanical Ventilator Mechanical Ventilator 05/12/20 20:00 99.3 93 35 122/76 (91) 100 05/12/20 20:00 40 05/12/20 20:00 70 05/12/20 19:38 99 05/12/20 19:10 105 54 40 05/12/20 19:00 98 50 153/103 (120) 96 05/12/20 18:00 100 45 119/73 (88) 94 05/12/20 17:30 106 41 128/80 (96) 95 05/12/20 17:28 103 42 118/71 (87) 96 05/12/20 17:00 106 40 40 05/12/20 17:00 103 44 120/63 (82) 95 05/12/20 17:00 88/56 05/12/20 16:00 100 05/12/20 16:00 40 05/12/20 16:00 Mechanical Ventilator Mechanical Ventilator Mechanical Ventilator 05/12/20 16:00 98.9 98 32 114/71 (85) 99 05/12/20 15:00 94 24 115/64 (81) 99 05/12/20 15:00 100 39 40 05/12/20 14:00 98 41 117/58 (77) 96 05/12/20 13:00 102 37 129/60 (83) 99 05/12/20 13:00 100 36 40 05/12/20 12:00 Mechanical Ventilator Mechanical Ventilator Mechanical Ventilator 05/12/20 12:00 40 05/12/20 12:00 116 05/12/20 12:00 98.3 108 46 131/97 (108) 97 Micro: Microbiology Date/Time Source Procedure Growth Status 05/12/20 12:00 Sputum Gram Stain - Final Resulted 05/12/20 12:00 Sputum Sputum Culture Pending Resulted Accucheck: 105 Critical Care - Subjective ROS Limited/Unobtainable: Yes FI02: 40 Vent Support Breath Rate: 30 Vent Support Mode: AC Vent Tidal Volume: 500 Sputum Amount: Moderate PEEP: 8.0 PIP: 46 Tube Feeding Amount: 20 I&O: Intake and Output 05/12/20 05/13/20 19:00 07:00 Intake Total 1247.5 ml 1015.0 ml Output Total 370 ml 2200 ml Balance 877.5 ml -1185.0 ml IV Total 1247.5 ml 1015.0 ml Output Urine Total 0 ml Stool Total 220 ml Gastric Drainage Total 150 ml 200 ml Hemodialysis UF 2000 ml # Voids 3 Franko Flynn MD May 13, 2020 11:26
--- NOTE | 2020-05-13 12:10 | Nephrology Progress Note ---
Assessment/Plan Problem List: (1) Aspiration pneumonia (2) Respiratory insufficiency (3) Respiratory failure (4) Malnutrition (5) Sepsis (6) ARF (acute renal failure) (7) Protein-calorie malnutrition, severe (8) HCAP (healthcare-associated pneumonia) Plan on levophed, vent , tpn grave prognosis Subjective ROS Limited/Unobtainable: Yes Objective Objective Last 24 Hour Vital Signs Date Time Temp Pulse Resp B/P (MAP) Pulse Ox O2 Delivery O2 Flow Rate FiO2 05/13/20 10:35 74 37 40 05/13/20 10:00 89 38 156/71 (99) 98 05/13/20 09:00 94 35 128/89 (102) 97 05/13/20 09:00 95 32 40 05/13/20 08:00 74 05/13/20 08:00 97.7 88 35 133/72 (92) 99 05/13/20 08:00 Mechanical Ventilator Mechanical Ventilator Mechanical Ventilator 05/13/20 08:00 40 05/13/20 07:17 105 34 40 05/13/20 07:00 94 31 128/72 (90) 97 05/13/20 06:00 95 43 144/80 (101) 100 05/13/20 05:01 90 45 40 05/13/20 05:00 94 47 145/72 (96) 100 05/13/20 04:00 40 05/13/20 04:00 87 05/13/20 04:00 98.7 93 43 143/78 (99) 99 05/13/20 04:00 Mechanical Ventilator Mechanical Ventilator Mechanical Ventilator 05/13/20 03:42 96 41 40 05/13/20 03:00 101 38 135/67 (89) 99 05/13/20 02:00 90 27 113/52 (72) 98 05/13/20 01:00 94 32 119/59 (79) 100 05/13/20 00:40 96 33 40 05/13/20 00:00 40 05/13/20 00:00 98.4 90 37 116/60 (78) 100 05/13/20 00:00 97 05/13/20 00:00 Mechanical Ventilator Mechanical Ventilator Mechanical Ventilator 05/12/20 23:10 94 37 40 05/12/20 23:00 104 32 111/67 (82) 100 05/12/20 22:00 93 49 103/60 (74) 95 05/12/20 21:00 92 29 125/64 (84) 99 05/12/20 20:36 93 56 70 05/12/20 20:00 Mechanical Ventilator Mechanical Ventilator Mechanical Ventilator 05/12/20 20:00 99.3 93 35 122/76 (91) 100 05/12/20 20:00 40 05/12/20 20:00 70 05/12/20 19:38 99 05/12/20 19:10 105 54 40 05/12/20 19:00 98 50 153/103 (120) 96 05/12/20 18:00 100 45 119/73 (88) 94 05/12/20 17:30 106 41 128/80 (96) 95 05/12/20 17:28 103 42 118/71 (87) 96 05/12/20 17:00 106 40 40 05/12/20 17:00 103 44 120/63 (82) 95 05/12/20 17:00 88/56 05/12/20 16:00 100 05/12/20 16:00 40 05/12/20 16:00 Mechanical Ventilator Mechanical Ventilator Mechanical Ventilator 05/12/20 16:00 98.9 98 32 114/71 (85) 99 05/12/20 15:00 94 24 115/64 (81) 99 05/12/20 15:00 100 39 40 05/12/20 14:00 98 41 117/58 (77) 96 05/12/20 13:00 102 37 129/60 (83) 99 05/12/20 13:00 100 36 40 Intake and Output 05/12/20 05/13/20 19:00 07:00 Intake Total 1247.5 ml 1015.0 ml Output Total 370 ml 2200 ml Balance 877.5 ml -1185.0 ml IV Total 1247.5 ml 1015.0 ml Output Urine Total 0 ml Stool Total 220 ml Gastric Drainage Total 150 ml 200 ml Hemodialysis UF 2000 ml # Voids 3 Laboratory Tests 05/12/20 12:21: POC Whole Blood Glucose [Pending] 05/12/20 18:22: POC Whole Blood Glucose 78 05/13/20 04:20: White Blood Count 11.2H, Red Blood Count 2.53L, Hemoglobin 8.6L, Hematocrit 27.3L, Mean Corpuscular Volume 108H, Mean Corpuscular Hemoglobin 34.1H, Mean Corpuscular Hemoglobin Concent 31.6L, Red Cell Distribution Width 20.9H, Platelet Count 36L, Mean Platelet Volume 12.2H, Neutrophils (%) (Auto) , Lymphocytes (%) (Auto) , Monocytes (%) (Auto) , Eosinophils (%) (Auto) , Basophils (%) (Auto) , Sodium Level 137, Potassium Level 3.2L, Chloride Level 105, Carbon Dioxide Level 24, Anion Gap 8, Blood Urea Nitrogen 20H, Creatinine 2.3H, Estimat Glomerular Filtration Rate 27.6, Glucose Level 102, Calcium Level 7.7L, Phosphorus Level 2.2L, Magnesium Level 1.6L, Total Bilirubin 0.3, Aspartate Amino Transf (AST/SGOT) 17, Alanine Aminotransferase (ALT/SGPT) < 6L, Alkaline Phosphatase 102, Total Protein 6.0L, Albumin 1.2L, Globulin 4.8, Albumin/Globulin Ratio 0.2L 05/13/20 05:09: POC Whole Blood Glucose 105 05/13/20 10:45: Arterial Blood pH 7.357, Arterial Blood Partial Pressure CO2 39.3, Arterial Blood Partial Pressure O2 98.6, Arterial Blood HCO3 21.6L, Arterial Blood Oxygen Saturation 98.0, Arterial Blood Base Excess -3.6L, [place] Test Positive Height (Feet): 5 Height (Inches): 7.00 Weight (Pounds): 150 General Appearance: lethargic, other - large oral secretion Neck: other - trach vent Cardiovascular: regular rhythm Respiratory/Chest: rhonchi - bilaterally Abdomen: non tender Extremities: trace edema Neurologic: unresponsive Cl Gong MD May 13, 2020 12:10
--- NOTE | 2020-05-13 14:44 | Infectious Diseases Prog Note ---
Assessment/Plan Assessment/Plan A: 1. Staph aureus & Coag neg sepsis treated 2. MDR Klebsiella pneumonia. 3. Renal failure.acute on chronic 4. Respiratory failure on ventilator 5. Seizure disorder. 6. Septic shock. 7. GI bleeding 8. Anemia 9. Small bowel distention 10. Cirrhosis 11. Splenomegaly PLAN: 1. continue Meropenem 2. We will follow up cultures and adjust antibiotics accordingly. Subjective ROS Limited/Unobtainable: Yes Constitutional: Denies: fever Allergies: Coded Allergies: No Known Allergies (Unverified , 02/23/12) Objective Last 24 Hour Vital Signs Date Time Temp Pulse Resp B/P (MAP) Pulse Ox O2 Delivery O2 Flow Rate FiO2 05/13/20 14:00 101 40 127/69 (88) 99 05/13/20 13:00 103 43 164/90 (114) 99 05/13/20 13:00 103 34 40 05/13/20 12:00 96 05/13/20 12:00 40 05/13/20 12:00 96 40 153/81 (105) 99 05/13/20 11:00 99 39 152/87 (108) 99 05/13/20 10:35 74 37 40 05/13/20 10:00 89 38 156/71 (99) 98 05/13/20 09:00 94 35 128/89 (102) 97 05/13/20 09:00 95 32 40 05/13/20 08:00 74 05/13/20 08:00 97.7 88 35 133/72 (92) 99 05/13/20 08:00 Mechanical Ventilator Mechanical Ventilator Mechanical Ventilator 05/13/20 08:00 40 05/13/20 07:17 105 34 40 05/13/20 07:00 94 31 128/72 (90) 97 05/13/20 06:00 95 43 144/80 (101) 100 05/13/20 05:01 90 45 40 05/13/20 05:00 94 47 145/72 (96) 100 05/13/20 04:00 40 05/13/20 04:00 87 05/13/20 04:00 98.7 93 43 143/78 (99) 99 05/13/20 04:00 Mechanical Ventilator Mechanical Ventilator Mechanical Ventilator 05/13/20 03:42 96 41 40 05/13/20 03:00 101 38 135/67 (89) 99 05/13/20 02:00 90 27 113/52 (72) 98 05/13/20 01:00 94 32 119/59 (79) 100 05/13/20 00:40 96 33 40 05/13/20 00:00 40 05/13/20 00:00 98.4 90 37 116/60 (78) 100 05/13/20 00:00 97 05/13/20 00:00 Mechanical Ventilator Mechanical Ventilator Mechanical Ventilator 05/12/20 23:10 94 37 40 05/12/20 23:00 104 32 111/67 (82) 100 05/12/20 22:00 93 49 103/60 (74) 95 05/12/20 21:00 92 29 125/64 (84) 99 05/12/20 20:36 93 56 70 05/12/20 20:00 Mechanical Ventilator Mechanical Ventilator Mechanical Ventilator 05/12/20 20:00 99.3 93 35 122/76 (91) 100 05/12/20 20:00 40 05/12/20 20:00 70 05/12/20 19:38 99 05/12/20 19:10 105 54 40 05/12/20 19:00 98 50 153/103 (120) 96 05/12/20 18:00 100 45 119/73 (88) 94 05/12/20 17:30 106 41 128/80 (96) 95 05/12/20 17:28 103 42 118/71 (87) 96 05/12/20 17:00 106 40 40 05/12/20 17:00 103 44 120/63 (82) 95 05/12/20 17:00 88/56 05/12/20 16:00 100 05/12/20 16:00 40 05/12/20 16:00 Mechanical Ventilator Mechanical Ventilator Mechanical Ventilator 05/12/20 16:00 98.9 98 32 114/71 (85) 99 05/12/20 15:00 94 24 115/64 (81) 99 05/12/20 15:00 100 39 40 Height (Feet): 5 Height (Inches): 7.00 Weight (Pounds): 150 HEENT: mucous membranes moist, status post trach, other - foamy mouth Respiratory/Chest: rhonchi - bilaterally, other - on ventilator, air leak around tracheostomy Cardiovascular: tachycardia, other - RIJ central line Abdomen: soft, non tender, other - GT in place Extremities: other - generalized edema Neurologic/Psychiatric: unresponsiveness, aphasia Microbiology Date/Time Source Procedure Growth Status 05/12/20 12:00 Sputum Gram Stain - Final Resulted 05/12/20 12:00 Sputum Sputum Culture Pending Resulted Laboratory Tests Test 05/12/20 18:22 05/13/20 04:20 05/13/20 05:09 05/13/20 10:45 POC Whole Blood Glucose 78 MG/DL (74-106) 105 MG/DL (74-106) White Blood Count 11.2 K/UL (4.8-10.8) H Red Blood Count 2.53 M/UL (4.70-6.10) L Hemoglobin 8.6 G/DL (14.2-18.0) L Hematocrit 27.3 % (42.0-52.0) L Mean Corpuscular Volume 108 FL (80-99) H Mean Corpuscular Hemoglobin 34.1 PG (27.0-31.0) H Mean Corpuscular Hemoglobin Concent 31.6 G/DL (32.0-36.0) L Red Cell Distribution Width 20.9 % (11.6-14.8) H Platelet Count 36 K/UL (150-450) L Mean Platelet Volume 12.2 FL (6.5-10.1) H Neutrophils (%) (Auto) % (45.0-75.0) Lymphocytes (%) (Auto) % (20.0-45.0) Monocytes (%) (Auto) % (1.0-10.0) Eosinophils (%) (Auto) % (0.0-3.0) Basophils (%) (Auto) % (0.0-2.0) Sodium Level 137 MMOL/L (136-145) Potassium Level 3.2 MMOL/L (3.5-5.1) L Chloride Level 105 MMOL/L (98-107) Carbon Dioxide Level 24 MMOL/L (21-32) Anion Gap 8 mmol/L (5-15) Blood Urea Nitrogen 20 mg/dL (7-18) H Creatinine 2.3 MG/DL (0.55-1.30) H Estimat Glomerular Filtration Rate 27.6 mL/min (>60) Glucose Level 102 MG/DL (74-106) Calcium Level 7.7 MG/DL (8.5-10.1) L Phosphorus Level 2.2 MG/DL (2.5-4.9) L Magnesium Level 1.6 MG/DL (1.8-2.4) L Total Bilirubin 0.3 MG/DL (0.2-1.0) Aspartate Amino Transf (AST/SGOT) 17 U/L (15-37) Alanine Aminotransferase (ALT/SGPT) < 6 U/L (12-78) L Alkaline Phosphatase 102 U/L (46-116) Total Protein 6.0 G/DL (6.4-8.2) L Albumin 1.2 G/DL (3.4-5.0) L Globulin 4.8 g/dL Albumin/Globulin Ratio 0.2 (1.0-2.7) L Arterial Blood pH 7.357 (7.350-7.450) Arterial Blood Partial Pressure CO2 39.3 mmHg (35.0-45.0) Arterial Blood Partial Pressure O2 98.6 mmHg (75.0-100.0) Arterial Blood HCO3 21.6 mmol/L (22.0-26.0) L Arterial Blood Oxygen Saturation 98.0 % (95-100) Arterial Blood Base Excess -3.6 (-2-2) L [place] Test Positive Current Medications Medications (Trade) Dose Ordered Sig/Lanny Route PRN Reason Start Time Stop Time Status Last Admin Dose Admin Acetaminophen (Tylenol) 650 mg Q4H PRN NG fever pain 05/03/20 21:30 06/02/20 21:29 Chlorhexidine Gluconate (Kayla-Hex 2%) 1 applic DAILY@2000 TOPIC 05/04/20 20:00 08/02/20 19:59 05/12/20 20:13 Clonidine HCl (Catapres Tab) 0.1 mg Q4H PRN GT SBP above 150 05/03/20 21:30 08/01/20 21:29 Dextrose 1,000 ml @ 0 mls/hr Q24H PRN IV PN interrupted or unavailable 05/12/20 12:15 06/11/20 12:14 Dextrose (Dextrose 50%) 25 ml Q30M PRN IV Hypoglycemia 05/12/20 11:30 08/10/20 11:29 Dextrose (Dextrose 50%) 50 ml Q30M PRN IV Hypoglycemia 05/12/20 11:30 08/10/20 11:29 Dextrose/Sodium Chloride 1,000 ml @ 50 mls/hr Q20H IV 05/06/20 11:00 06/05/20 10:59 05/13/20 02:02 Epoetin Asaf (Epoetin Asaf-EPBX(NON ESRD)) 10,000 unit SUBQ 05/05/20 21:00 08/03/20 20:59 05/12/20 20:27 Fat Emulsion Intravenous 192 ml/Amino Acids/ Electrolytes/ Dextrose 1,200 ml @ 50 mls/hr Q24H IV 05/12/20 20:00 08/10/20 19:59 05/12/20 20:00 Levetiracetam 750 mg/Dextrose 102.5 ml @ 440 mls/hr Q12HR IV 05/08/20 21:00 06/07/20 20:59 05/13/20 09:27 Levothyroxine Sodium (Synthroid) 100 mcg DAILY IV 05/05/20 09:00 06/03/20 10:59 05/13/20 08:48 Lorazepam (Ativan 2mg/ml 1ml) 1 mg Q4H PRN IV For Seizures 05/07/20 09:15 05/14/20 09:14 05/10/20 20:18 Meropenem 500 mg/ Sodium Chloride 55 ml @ 110 mls/hr Q24H IVPB 05/13/20 21:00 05/18/20 20:59 Midodrine (Pro-Amatine) 5 mg TID ORAL 05/05/20 09:00 08/03/20 08:59 05/13/20 14:34 Norepinephrine Bitartrate 250 ml @ 22.5 mls/hr Q24H IV 05/11/20 07:15 05/14/20 07:02 05/12/20 17:00 Pantoprazole (Protonix) 40 mg EVERY 12 HOURS IVP 05/04/20 21:00 06/03/20 20:59 05/13/20 08:48 Phytonadione (Vitamin K) 10 mg QWEEK SUBQ 05/12/20 21:00 08/10/20 20:59 05/12/20 20:13 Janes Dumas MD May 13, 2020 14:44
--- NOTE | 2020-05-13 15:07 | Surgery Progress Note ---
Surgery Progress Note Subjective Procedure Performed Left femoral temporary hemodialysis catheter insertion Additional Comments CT reviewed still distended unlikely SBO chronic feeding tube in place Objective Last 24 Hour Vital Signs Date Time Temp Pulse Resp B/P (MAP) Pulse Ox O2 Delivery O2 Flow Rate FiO2 05/13/20 15:03 115 40 151/84 (106) 97 05/13/20 14:00 101 40 127/69 (88) 99 05/13/20 13:00 103 43 164/90 (114) 99 05/13/20 13:00 103 34 40 05/13/20 12:00 96 05/13/20 12:00 40 05/13/20 12:00 96 40 153/81 (105) 99 05/13/20 11:00 99 39 152/87 (108) 99 05/13/20 10:35 74 37 40 05/13/20 10:00 89 38 156/71 (99) 98 05/13/20 09:00 94 35 128/89 (102) 97 05/13/20 09:00 95 32 40 05/13/20 08:00 74 05/13/20 08:00 97.7 88 35 133/72 (92) 99 05/13/20 08:00 Mechanical Ventilator Mechanical Ventilator Mechanical Ventilator 05/13/20 08:00 40 05/13/20 07:17 105 34 40 05/13/20 07:00 94 31 128/72 (90) 97 05/13/20 06:00 95 43 144/80 (101) 100 05/13/20 05:01 90 45 40 05/13/20 05:00 94 47 145/72 (96) 100 05/13/20 04:00 40 05/13/20 04:00 87 05/13/20 04:00 98.7 93 43 143/78 (99) 99 05/13/20 04:00 Mechanical Ventilator Mechanical Ventilator Mechanical Ventilator 05/13/20 03:42 96 41 40 05/13/20 03:00 101 38 135/67 (89) 99 05/13/20 02:00 90 27 113/52 (72) 98 05/13/20 01:00 94 32 119/59 (79) 100 05/13/20 00:40 96 33 40 05/13/20 00:00 40 05/13/20 00:00 98.4 90 37 116/60 (78) 100 05/13/20 00:00 97 05/13/20 00:00 Mechanical Ventilator Mechanical Ventilator Mechanical Ventilator 05/12/20 23:10 94 37 40 05/12/20 23:00 104 32 111/67 (82) 100 05/12/20 22:00 93 49 103/60 (74) 95 05/12/20 21:00 92 29 125/64 (84) 99 05/12/20 20:36 93 56 70 05/12/20 20:00 Mechanical Ventilator Mechanical Ventilator Mechanical Ventilator 05/12/20 20:00 99.3 93 35 122/76 (91) 100 05/12/20 20:00 40 05/12/20 20:00 70 05/12/20 19:38 99 05/12/20 19:10 105 54 40 05/12/20 19:00 98 50 153/103 (120) 96 05/12/20 18:00 100 45 119/73 (88) 94 05/12/20 17:30 106 41 128/80 (96) 95 05/12/20 17:28 103 42 118/71 (87) 96 05/12/20 17:00 106 40 40 05/12/20 17:00 103 44 120/63 (82) 95 05/12/20 17:00 88/56 05/12/20 16:00 100 05/12/20 16:00 40 05/12/20 16:00 Mechanical Ventilator Mechanical Ventilator Mechanical Ventilator 05/12/20 16:00 98.9 98 32 114/71 (85) 99 I&O Intake and Output 05/12/20 05/13/20 19:00 07:00 Intake Total 1247.5 ml 1015.0 ml Output Total 370 ml 2200 ml Balance 877.5 ml -1185.0 ml IV Total 1247.5 ml 1015.0 ml Output Urine Total 0 ml Stool Total 220 ml Gastric Drainage Total 150 ml 200 ml Hemodialysis UF 2000 ml # Voids 3 Dressing: saturated Cardiovascular: RSR Abdomen: soft, distended, non-tender, decreased bowel sounds Extremities: no tenderness, no cyanosis, other Laboratory Tests Test 05/12/20 18:22 05/13/20 04:20 05/13/20 05:09 05/13/20 10:45 POC Whole Blood Glucose 78 MG/DL (74-106) 105 MG/DL (74-106) White Blood Count 11.2 K/UL (4.8-10.8) H Red Blood Count 2.53 M/UL (4.70-6.10) L Hemoglobin 8.6 G/DL (14.2-18.0) L Hematocrit 27.3 % (42.0-52.0) L Mean Corpuscular Volume 108 FL (80-99) H Mean Corpuscular Hemoglobin 34.1 PG (27.0-31.0) H Mean Corpuscular Hemoglobin Concent 31.6 G/DL (32.0-36.0) L Red Cell Distribution Width 20.9 % (11.6-14.8) H Platelet Count 36 K/UL (150-450) L Mean Platelet Volume 12.2 FL (6.5-10.1) H Neutrophils (%) (Auto) % (45.0-75.0) Lymphocytes (%) (Auto) % (20.0-45.0) Monocytes (%) (Auto) % (1.0-10.0) Eosinophils (%) (Auto) % (0.0-3.0) Basophils (%) (Auto) % (0.0-2.0) Sodium Level 137 MMOL/L (136-145) Potassium Level 3.2 MMOL/L (3.5-5.1) L Chloride Level 105 MMOL/L (98-107) Carbon Dioxide Level 24 MMOL/L (21-32) Anion Gap 8 mmol/L (5-15) Blood Urea Nitrogen 20 mg/dL (7-18) H Creatinine 2.3 MG/DL (0.55-1.30) H Estimat Glomerular Filtration Rate 27.6 mL/min (>60) Glucose Level 102 MG/DL (74-106) Calcium Level 7.7 MG/DL (8.5-10.1) L Phosphorus Level 2.2 MG/DL (2.5-4.9) L Magnesium Level 1.6 MG/DL (1.8-2.4) L Total Bilirubin 0.3 MG/DL (0.2-1.0) Aspartate Amino Transf (AST/SGOT) 17 U/L (15-37) Alanine Aminotransferase (ALT/SGPT) < 6 U/L (12-78) L Alkaline Phosphatase 102 U/L (46-116) Total Protein 6.0 G/DL (6.4-8.2) L Albumin 1.2 G/DL (3.4-5.0) L Globulin 4.8 g/dL Albumin/Globulin Ratio 0.2 (1.0-2.7) L Arterial Blood pH 7.357 (7.350-7.450) Arterial Blood Partial Pressure CO2 39.3 mmHg (35.0-45.0) Arterial Blood Partial Pressure O2 98.6 mmHg (75.0-100.0) Arterial Blood HCO3 21.6 mmol/L (22.0-26.0) L Arterial Blood Oxygen Saturation 98.0 % (95-100) Arterial Blood Base Excess -3.6 (-2-2) L [place] Test Positive Plan Problems: (1) Dehydration (2) Ventilator associated pneumonia (3) AUDREY (acute kidney injury) (4) Hypokalemia (5) Hyperkalemia (6) Hypomagnesemia (7) Anemia (8) Decubitus skin ulcer Assessment & Plan: Pt presented on admission with gross contractures, Multiple Pressure Injuries, Tracheostomy. Skin Assessed under tracheal collar and no evidence of skin breakdown noted. Tear noted to urinary meatus- no exudate noted. Scrotum is erythematous with scattered satellite lesions. Large ulcer noted to R scrotal sac (L)4cm x (W)4.6cm. Base of wound is erythematous ,moist with Biofilm. Sacral DTPI with clusters of small islands of slough with surrounding maroon and indurated areas (L)8cm x (W)12cm.Mild Odor noted. Partial thickness Pressure Injury Upper/outer R buttocks(L)1.8cm x (W)1.3cm. Base of wound is moist and viable. Edges adherent to base of wound. Surrounding non-blanching erythema with scattered areas of shearing noted. Partial thickness Pressure Inferior lower R buttocks.(L)0.8cm x (W)1.2cm. Base of wound is moist and viable. Edges adherent to base of wound. Surrounding non- blanching erythema with scattered shearing noted extending into R ischial tuberosity. Clusters of small hyperpigmentation noted to L trochanteric and L ischial tuberosity. R Heel is fluctuant with scattered dry eschar and surrounding Non-Blanchable erythema.(L)6.5cm x (W)8cm. DTPI distal/lateral R foot(L)3cm x (W)3cm. Base of wound is maroon and fluctuant. dry eschar noted to tip of R 1st metatarsal with surrounding non-blanchable erythema extending dorsally and laterally of metatarsal(L)5cm x (W)1.3cm Non-Blanchable erythema that is fluctuant at base noted to dorso/lateral L 5th metatarsal(L)0.6cm x (W)0.3cm. L Heel is boggy with non-blanchable erythema laterally. Hyperpigmentation from previous wound noted at L heel. Tx.Plan: Cleanse Sacral wound with Saline. Apply TheraHoney to slough. Apply Moisture Barrier Paste periwound. Cover with Optifoam drsg. Change daily and prn. Apply Moisture Barrier Paste to Wounds R upper and lower R Buttocks. Cover each wound with Optifoam drsg. Change every 3 days and prn. Apply Zinc Oxide Paste to Scrotal Wounds TID and prn. Apply Betadine to wounds R heel and R foot . Cover with ABD Pads and wrap with Kerlix every 3 days and prn. Apply Betadine to L foot. Cover with ABD Pads and wrap with Kerlix every 3 days and prn. Cover Bony Prominences as needed with Optifoam drsgs. Reposition at least every 2hours or as tolerated. Off-load heels with pillow. APM/VIRAL Mattress DAILY ESTIMATED NEEDS: Needs based on Critical care, 63kg 22-30 kcals/kg 2701-1136 total kcals 1.25-2 g protein/kg 79-126 g total protein 25-30 mL/kg 6235-2609 total fluid mLs NUTRITION DIAGNOSIS: Swallowing difficulty r/ respiratory status as evidenced by pt is vent dep via trach, PEG dep. CURRENT TF:NPO ENTERAL NUTRITION RECOMMENDATIONS: Vital AF 1.2 @ 55ml/hr x 22 hrs to provide 1210ml, 1452kcal, 91g prot, 981ml free water - As medically able, rec Vital 1.2. Start @15ml/hr for 6 hrs, advance as tolerated 10ml/hr q4-6 hrs to goal. - Hold 1 hr before and after synthroid. - Flush per MD, HOB over 30 degrees - Feed w/ hemodynamic stability. ADDITIONAL RECOMMENDATIONS: 1) Obtain calibrated bed scale wts-> recent adm wt was 63kg vs 68kg today 2) Monitor renal labs and lytes, need for renal formula 3) Rec WC eval -> currently NPO 4) Monitor hemodynamic stability, ability to feed (9) SOB (shortness of breath) (10) Hypernatremia (11) Aspiration pneumonia (12) Renal insufficiency (13) Respiratory insufficiency (14) Respiratory failure (15) Malnutrition (16) Sepsis Assessment & Plan: Leukocytosis, lactic acidosis, abnormal labs. In ICU resuscitation imaging noted micro noted. 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 No definite nondilated small bowel is visualized. Degree of distention is somewhat increased from the prior CT scan. Much of the colon is gas filled, upper limits normal in caliber, with the cecum (which is in the right upper quadrant) bordering on rand distention this is similar to the previous exam. The esophagus is dilated and gas filled. There is mild esophageal wall thickening at the gastroesophageal junction; this appears similar to the previous exam. Contrast is seen within the stomach. Gastrostomy is again demonstrated. There is a small amount free intraperitoneal fluid, predominantly in the right lower quadrant mesenteric root and in the right upper quadrant. No definite free intraperitoneal gas is evident. There is a rectal tube in place. Lack of IV contrast limits assessment of the solid organs. The gallbladder is nondistended. The liver, bile ducts, pancreas, spleen, adrenals, right kidney are unremarkable. The left kidney demonstrates a lower pole cyst. The bladder demonstrates mild wall thickening. The prostate is enlarged. There is diffuse edema of the presacral fat and diffuse generalized edema of the abdominal and mesenteric fat. There are small bilateral pleural effusions. There is extensive consolidation of both lung bases, with in particular very dense consolidation occupying most of the visualized left lower lobe and right middle lobe The bones demonstrate degenerative spondylosis changes. There is a chronic fracture of the left hip, and chronic erosive changes of the left acetabulum. Chronic inflammatory soft tissue seen surrounding the left hip. There is evidence of contracture of the right hip Impression: Diffusely mildly dilated small bowel loops, overall degree of distention slightly increased from 03/09/2020. No definite transition point demonstrated; findings are probably on the basis of ileus or age-related dysmotility. There is also some dilated colon again demonstrated Evidence of anasarca, with ascites fluid, extensive edema of the subcutaneous fat, abdominal fat, as well as bilateral pleural effusions Extensive bilateral diffuse pulmonary consolidation, with particularly dense consolidation in the left lower lobe and right middle lobe. Findings most likely represent pneumonia, but could also represent pulmonary edema Dilated gas-filled esophagus, significance uncertain. Mild esophageal wall thickening at the gastroesophageal junction could indicate esophagitis. This also previously demonstrated Rectal tube in place Chronic fracture of the left hip, chronic erosive changes of the left acetabulum, and auditory soft tissue surrounding the left hip. Evidence of right hip contracture s Prostatomegaly. Bladder wall thickening, may indicate chronic bladder outlet obstruction versus cystitis (29) HCAP (healthcare-associated pneumonia) (30) Suspected COVID-19 virus infection Rehan Geronimo May 13, 2020 15:07
--- NOTE | 2020-05-13 15:18 | General Progress Note ---
Subjective ROS Limited/Unobtainable: Yes Constitutional: Reports: malaise, weakness HEENT: Reports: no symptoms Cardiovascular: Reports: edema Respiratory: Reports: shortness of breath, sputum Gastrointestinal/Abdominal: Reports: difficulty swallowing Genitourinary: Reports: no symptoms Neurologic/Psychiatric: Reports: pre-existing deficit, seizure Endocrine: Reports: no symptoms Hematologic/Lymphatic: Reports: anemia Allergies: Coded Allergies: No Known Allergies (Unverified , 02/23/12) All Systems: reviewed and negative except above Subjective no events. stable on the vent. off pressors. no bleeding. poorly responsive. no szs. +generalized edema. Objective Last 24 Hour Vital Signs Date Time Temp Pulse Resp B/P (MAP) Pulse Ox O2 Delivery O2 Flow Rate FiO2 05/13/20 15:03 115 40 151/84 (106) 97 05/13/20 14:00 101 40 127/69 (88) 99 05/13/20 13:00 103 43 164/90 (114) 99 05/13/20 13:00 103 34 40 05/13/20 12:00 96 05/13/20 12:00 40 05/13/20 12:00 96 40 153/81 (105) 99 05/13/20 11:00 99 39 152/87 (108) 99 05/13/20 10:35 74 37 40 05/13/20 10:00 89 38 156/71 (99) 98 05/13/20 09:00 94 35 128/89 (102) 97 05/13/20 09:00 95 32 40 05/13/20 08:00 74 05/13/20 08:00 97.7 88 35 133/72 (92) 99 05/13/20 08:00 Mechanical Ventilator Mechanical Ventilator Mechanical Ventilator 05/13/20 08:00 40 05/13/20 07:17 105 34 40 05/13/20 07:00 94 31 128/72 (90) 97 05/13/20 06:00 95 43 144/80 (101) 100 05/13/20 05:01 90 45 40 05/13/20 05:00 94 47 145/72 (96) 100 05/13/20 04:00 40 05/13/20 04:00 87 05/13/20 04:00 98.7 93 43 143/78 (99) 99 05/13/20 04:00 Mechanical Ventilator Mechanical Ventilator Mechanical Ventilator 05/13/20 03:42 96 41 40 05/13/20 03:00 101 38 135/67 (89) 99 05/13/20 02:00 90 27 113/52 (72) 98 05/13/20 01:00 94 32 119/59 (79) 100 05/13/20 00:40 96 33 40 05/13/20 00:00 40 05/13/20 00:00 98.4 90 37 116/60 (78) 100 05/13/20 00:00 97 05/13/20 00:00 Mechanical Ventilator Mechanical Ventilator Mechanical Ventilator 05/12/20 23:10 94 37 40 05/12/20 23:00 104 32 111/67 (82) 100 05/12/20 22:00 93 49 103/60 (74) 95 05/12/20 21:00 92 29 125/64 (84) 99 05/12/20 20:36 93 56 70 05/12/20 20:00 Mechanical Ventilator Mechanical Ventilator Mechanical Ventilator 05/12/20 20:00 99.3 93 35 122/76 (91) 100 05/12/20 20:00 40 05/12/20 20:00 70 05/12/20 19:38 99 05/12/20 19:10 105 54 40 05/12/20 19:00 98 50 153/103 (120) 96 05/12/20 18:00 100 45 119/73 (88) 94 05/12/20 17:30 106 41 128/80 (96) 95 05/12/20 17:28 103 42 118/71 (87) 96 05/12/20 17:00 106 40 40 05/12/20 17:00 103 44 120/63 (82) 95 05/12/20 17:00 88/56 05/12/20 16:00 100 05/12/20 16:00 40 05/12/20 16:00 Mechanical Ventilator Mechanical Ventilator Mechanical Ventilator 05/12/20 16:00 98.9 98 32 114/71 (85) 99 Intake and Output 05/12/20 05/13/20 19:00 07:00 Intake Total 1247.5 ml 1015.0 ml Output Total 370 ml 2200 ml Balance 877.5 ml -1185.0 ml IV Total 1247.5 ml 1015.0 ml Output Urine Total 0 ml Stool Total 220 ml Gastric Drainage Total 150 ml 200 ml Hemodialysis UF 2000 ml # Voids 3 Laboratory Tests 05/12/20 18:22: POC Whole Blood Glucose 78 05/13/20 04:20: White Blood Count 11.2H, Red Blood Count 2.53L, Hemoglobin 8.6L, Hematocrit 27.3L, Mean Corpuscular Volume 108H, Mean Corpuscular Hemoglobin 34.1H, Mean Corpuscular Hemoglobin Concent 31.6L, Red Cell Distribution Width 20.9H, Platelet Count 36L, Mean Platelet Volume 12.2H, Neutrophils (%) (Auto) , Lymphocytes (%) (Auto) , Monocytes (%) (Auto) , Eosinophils (%) (Auto) , Basophils (%) (Auto) , Sodium Level 137, Potassium Level 3.2L, Chloride Level 105, Carbon Dioxide Level 24, Anion Gap 8, Blood Urea Nitrogen 20H, Creatinine 2.3H, Estimat Glomerular Filtration Rate 27.6, Glucose Level 102, Calcium Level 7.7L, Phosphorus Level 2.2L, Magnesium Level 1.6L, Total Bilirubin 0.3, Aspartate Amino Transf (AST/SGOT) 17, Alanine Aminotransferase (ALT/SGPT) < 6L, Alkaline Phosphatase 102, Total Protein 6.0L, Albumin 1.2L, Globulin 4.8, Albumin/Globulin Ratio 0.2L 05/13/20 05:09: POC Whole Blood Glucose 105 05/13/20 10:45: Arterial Blood pH 7.357, Arterial Blood Partial Pressure CO2 39.3, Arterial Blood Partial Pressure O2 98.6, Arterial Blood HCO3 21.6L, Arterial Blood Oxygen Saturation 98.0, Arterial Blood Base Excess -3.6L, Urbano Test Positive Height (Feet): 5 Height (Inches): 7.00 Weight (Pounds): 150 Objective General Appearance: WD/WN, lethargic, confused EENT: PERRL/EOMI, normal ENT inspection Neck: normal alignment, supple Cardiovascular: normal rate Respiratory/Chest: chest wall non-tender, lungs clear, crackles/rales, rhonchi - bilaterally Abdomen: normal bowel sounds, non tender, soft, no organomegaly Edema: no edema noted Arm (L), no edema noted Arm (R) Neurologic: disoriented, unresponsive, aphasia Skin: normal pigmentation Assessment/Plan Problem List: (1) Dehydration ICD Codes: E86.0 - Dehydration SNOMED: 23077553 (2) Ventilator associated pneumonia ICD Codes: J95.851 - Ventilator associated pneumonia SNOMED: 384855425, 53620610 (3) AUDREY (acute kidney injury) ICD Codes: N17.9 - Acute kidney failure, unspecified SNOMED: 5066626, 44635944 (4) Anemia ICD Codes: D64.9 - Anemia, unspecified SNOMED: 028682440, 913224848 (5) HCAP (healthcare-associated pneumonia) ICD Codes: J18.9 - Pneumonia, unspecified organism SNOMED: 776865643, 581303745 (6) CKD (chronic kidney disease) stage 3, GFR 30-59 ml/min ICD Codes: N18.3 - Chronic kidney disease, stage 3 (moderate) SNOMED: 013927164 (7) GIB (gastrointestinal bleeding) ICD Codes: K92.2 - Gastrointestinal hemorrhage, unspecified SNOMED: 66084829 (8) ARF (acute renal failure) ICD Codes: N17.9 - Acute kidney failure, unspecified SNOMED: 86960127, 935461925 (9) Pneumonia ICD Codes: J18.9 - Pneumonia, unspecified organism SNOMED: 479048357 (10) UTI (urinary tract infection) ICD Codes: N39.0 - Urinary tract infection, site not specified SNOMED: 72981989, 702708373 (11) Sepsis ICD Codes: A41.9 - Sepsis, unspecified organism SNOMED: 02554786 (12) Respiratory failure ICD Codes: J96.90 - Respiratory failure, unspecified, unspecified whether with hypoxia or hypercapnia SNOMED: 920252319 Status: stable, not improved Assessment/Plan: HD per renal IV abx per ID vent support resp rx monitor cxr monitor abg. adjust vent monitor h/h transfuse as needed wound care turn q2 dvt/stress ulcer prophylaxis tube feeds monitor residuals cont keppra for sz prn ativan for szs critical and guarded Jimi Tellez MD May 13, 2020 15:18
[2020-05-13] MEDS: Dyna-Hex 2% Top Sol 2oz TOPIC SCH (20:05)
[2020-05-13] MEDS: TPN IV SCH (20:05)
[2020-05-13] MEDS: FAT EMULSION 20% IV SCH (20:05)
[2020-05-13] MEDS: Meropenem 500mg/NS 55ml IVPB SCH ×2 (20:20)
[2020-05-13] MEDS: LORazepam Inj 2mg/ml 1ml IV PRN (23:55)
[2020-05-14] VITALS (24 sets, daily range): BP systolic 95–145; BP diastolic 59–87
[2020-05-14 05:34] LABS: HEMATOCRIT 26.1 % (42.0-52.0); HEMOGLOBIN 8.2 G/DL (14.2-18.0); MEAN CORPUSCULAR VOLUME 110 FL (80-99); PLATELET COUNT 29 K/UL (150-450); RED BLOOD COUNT 2.37 M/UL (4.70-6.10); RED CELL DISTRIBUTION WIDTH 21.3 % (11.6-14.8); WHITE BLOOD COUNT 9.5 K/UL (4.8-10.8)
[2020-05-14 06:16] LABS: ALANINE AMINOTRANSFERASE < 6 U/L (12-78); ALBUMIN 1.2 G/DL (3.4-5.0); ALBUMIN/GLOBULIN RATIO 0.3 (1.0-2.7); ALKALINE PHOSPHATASE 101 U/L (46-116); ANION GAP 7 mmol/L (5-15); ASPARTATE AMINO TRANSFERASE 24 U/L (15-37); BILIRUBIN,TOTAL 0.3 MG/DL (0.2-1.0); BLOOD UREA NITROGEN 25 mg/dL (7-18); CARBON DIOXIDE 24 MMOL/L (21-32); CHLORIDE 107 MMOL/L (98-107); CREATININE 2.7 MG/DL (0.55-1.30); POTASSIUM 3.1 MMOL/L (3.5-5.1); SODIUM 138 MMOL/L (136-145)
[2020-05-14 07:03] LABS: PHOSPHORUS 2.2 MG/DL (2.5-4.9)
--- NOTE | 2020-05-14 09:13 | General Progress Note ---
Subjective ROS Limited/Unobtainable: No Allergies: Coded Allergies: No Known Allergies (Unverified , 02/23/12) Objective Last 24 Hour Vital Signs Date Time Temp Pulse Resp B/P (MAP) Pulse Ox O2 Delivery O2 Flow Rate FiO2 05/14/20 07:00 97 29 117/73 (88) 100 05/14/20 06:00 97 30 114/73 (87) 100 05/14/20 05:22 104 35 40 05/14/20 05:00 100 38 120/76 (91) 100 05/14/20 04:00 40 05/14/20 04:00 Mechanical Ventilator Mechanical Ventilator Mechanical Ventilator 05/14/20 04:00 98.2 106 34 125/75 (92) 100 05/14/20 04:00 100 05/14/20 03:02 101 33 40 05/14/20 03:00 102 32 126/74 (91) 100 05/14/20 02:00 100 28 131/70 (90) 100 05/14/20 01:02 101 31 40 05/14/20 01:00 98 33 102/59 (73) 98 05/14/20 00:25 111 29 131/73 98 05/14/20 00:00 Mechanical Ventilator Mechanical Ventilator Mechanical Ventilator 05/14/20 00:00 103 05/14/20 00:00 40 05/14/20 00:00 98.0 111 29 131/73 (92) 98 05/13/20 23:55 103 33 147/87 98 05/13/20 23:35 105 36 137/83 (101) 99 05/13/20 23:30 103 29 176/103 (127) 99 05/13/20 23:00 104 34 160/108 (125) 99 05/13/20 22:49 103 33 40 05/13/20 22:00 105 36 155/92 (113) 99 05/13/20 21:30 108 35 168/98 (121) 99 05/13/20 21:00 100 30 159/94 (115) 99 05/13/20 20:55 100 30 40 05/13/20 20:00 105 05/13/20 20:00 40 05/13/20 20:00 99.7 99 31 139/81 (100) 99 05/13/20 20:00 Mechanical Ventilator Mechanical Ventilator Mechanical Ventilator 05/13/20 19:00 108 30 40 11/14/20 19:00 102 38 147/87 (107) 98 05/13/20 19:00 103 33 98 Mechanical Ventilator 40 05/13/20 18:00 104 38 153/88 (109) 99 05/13/20 17:14 104 39 40 05/13/20 17:00 97.8 114 38 173/100 (124) 100 05/13/20 16:00 110 40 161/98 (119) 98 05/13/20 16:00 40 05/13/20 16:00 110 05/13/20 15:20 101 31 40 05/13/20 15:15 Mechanical Ventilator Mechanical Ventilator Mechanical Ventilator 05/13/20 15:03 115 40 151/84 (106) 97 05/13/20 14:00 101 40 127/69 (88) 99 05/13/20 13:00 103 43 164/90 (114) 99 05/13/20 13:00 103 34 40 05/13/20 12:00 Mechanical Ventilator Mechanical Ventilator Mechanical Ventilator 05/13/20 12:00 96 05/13/20 12:00 40 05/13/20 12:00 96 40 153/81 (105) 99 05/13/20 11:00 99 39 152/87 (108) 99 05/13/20 10:35 74 37 40 05/13/20 10:00 89 38 156/71 (99) 98 Intake and Output 05/13/20 05/14/20 19:00 07:00 Intake Total 832.5 ml 1720 ml Output Total 200 ml 120 ml Balance 632.5 ml 1600 ml IV Total 832.5 ml 1720 ml Stool Total 200 ml 120 ml Gastric Drainage Total 0 ml # Voids 1 40 Laboratory Tests 05/13/20 10:45: Arterial Blood pH 7.357, Arterial Blood Partial Pressure CO2 39.3, Arterial Blood Partial Pressure O2 98.6, Arterial Blood HCO3 21.6L, Arterial Blood Oxygen Saturation 98.0, Arterial Blood Base Excess -3.6L, [place]ano Test Positive 05/14/20 04:27: White Blood Count 9.5, Red Blood Count 2.37L, Hemoglobin 8.2L, Hematocrit 26.1L, Mean Corpuscular Volume 110H, Mean Corpuscular Hemoglobin 34.4H, Mean Corpuscular Hemoglobin Concent 31.3L, Red Cell Distribution Width 21.3H, Platelet Count 29L, Mean Platelet Volume 11.5H, Neutrophils (%) (Auto) , Lymphocytes (%) (Auto) , Monocytes (%) (Auto) , Eosinophils (%) (Auto) , Basophils (%) (Auto) , Differential Total Cells Counted 100, Neutrophils % (Manual) 90H, Lymphocytes % (Manual) 3L, Monocytes % (Manual) 2, Eosinophils % (Manual) 1, Basophils % (Manual) 0, Band Neutrophils 4, Platelet Estimate DecreasedL, Platelet Morphology Normal, Hypochromasia 1+, Anisocytosis 3+, Macrocytosis 1+, Sodium Level 138, Potassium Level 3.1L, Chloride Level 107, Carbon Dioxide Level 24, Anion Gap 7, Blood Urea Nitrogen 25H, Creatinine 2.7H, Estimat Glomerular Filtration Rate 23.0, Glucose Level 109H, Calcium Level 8.0L, Phosphorus Level 2.2L, Magnesium Level 1.7L, Total Bilirubin 0.3, Aspartate Amino Transf (AST/SGOT) 24, Alanine Aminotransferase (ALT/SGPT) < 6L, Alkaline Phosphatase 101, Total Protein 5.8L, Albumin 1.2L, Globulin 4.6, Albumin/Globulin Ratio 0.3L 05/14/20 06:55: POC Whole Blood Glucose 98 Height (Feet): 5 Height (Inches): 7.00 Weight (Pounds): 150 General Appearance: no apparent distress EENT: normal ENT inspection Neck: supple Cardiovascular: normal rate Respiratory/Chest: decreased breath sounds Abdomen: normal bowel sounds, non tender, soft Extremities: non-tender Assessment/Plan Status: stable, not improved Assessment/Plan: Assessment/Plan Status: stable, not improved Assessment/Plan: Assessment - Upper GI bleed - resolved - hypotensive , on pressors - abd distention / ileus - h/o gastric ulcer - anemia - renal failure - resp failure - contractures - Poor prognosis Recommendations - Pressors / supportive care - TPN - rectal tube decompression - NGT --> LIS - monitor H&H - IV PPI - transfuse Michael Whitaker MD May 14, 2020 09:13
[2020-05-14] MEDS: Pantoprazole Inj IVP SCH ×2 (09:21→20:56)
[2020-05-14] MEDS: levETIRAcetam 750 MG in D5W 95 ML IV SCH ×2 (09:21→20:49)
--- NOTE | 2020-05-14 11:44 | General Progress Note ---
Subjective ROS Limited/Unobtainable: No Constitutional: Reports: malaise, weakness HEENT: Reports: no symptoms Cardiovascular: Reports: no symptoms Respiratory: Reports: cough, shortness of breath Gastrointestinal/Abdominal: Reports: difficulty swallowing Genitourinary: Reports: no symptoms Neurologic/Psychiatric: Reports: pre-existing deficit, seizure Endocrine: Reports: no symptoms Hematologic/Lymphatic: Reports: anemia Allergies: Coded Allergies: No Known Allergies (Unverified , 02/23/12) All Systems: reviewed and negative except above Subjective no events. stable on the vent. off pressors. no bleeding. poorly responsive. no szs. +generalized edema. poor uop. wbc trending down. labs reviewed Objective Last 24 Hour Vital Signs Date Time Temp Pulse Resp B/P (MAP) Pulse Ox O2 Delivery O2 Flow Rate FiO2 05/14/20 11:00 104 31 137/75 (95) 100 05/14/20 10:00 113 35 128/75 (92) 100 05/14/20 09:00 101 23 134/79 (97) 100 05/14/20 08:00 40 05/14/20 08:00 98.5 109 29 134/87 (103) 100 05/14/20 08:00 Mechanical Ventilator Mechanical Ventilator Mechanical Ventilator 05/14/20 07:50 111 05/14/20 07:15 109 30 40 05/14/20 07:00 97 29 117/73 (88) 100 05/14/20 06:00 97 30 114/73 (87) 100 05/14/20 05:22 104 35 40 05/14/20 05:00 100 38 120/76 (91) 100 05/14/20 04:00 40 05/14/20 04:00 Mechanical Ventilator Mechanical Ventilator Mechanical Ventilator 05/14/20 04:00 98.2 106 34 125/75 (92) 100 05/14/20 04:00 100 05/14/20 03:02 101 33 40 05/14/20 03:00 102 32 126/74 (91) 100 05/14/20 02:00 100 28 131/70 (90) 100 05/14/20 01:02 101 31 40 05/14/20 01:00 98 33 102/59 (73) 98 05/14/20 00:25 111 29 131/73 98 05/14/20 00:00 Mechanical Ventilator Mechanical Ventilator Mechanical Ventilator 05/14/20 00:00 103 05/14/20 00:00 40 05/14/20 00:00 98.0 111 29 131/73 (92) 98 05/13/20 23:55 103 33 147/87 98 05/13/20 23:35 105 36 137/83 (101) 99 05/13/20 23:30 103 29 176/103 (127) 99 05/13/20 23:00 104 34 160/108 (125) 99 05/13/20 22:49 103 33 40 05/13/20 22:00 105 36 155/92 (113) 99 05/13/20 21:30 108 35 168/98 (121) 99 05/13/20 21:00 100 30 159/94 (115) 99 05/13/20 20:55 100 30 40 05/13/20 20:00 105 05/13/20 20:00 40 05/13/20 20:00 99.7 99 31 139/81 (100) 99 05/13/20 20:00 Mechanical Ventilator Mechanical Ventilator Mechanical Ventilator 05/13/20 19:00 108 30 40 05/13/20 19:00 102 38 147/87 (107) 98 05/13/20 19:00 103 33 98 Mechanical Ventilator 40 05/13/20 18:00 104 38 153/88 (109) 99 05/13/20 17:14 104 39 40 05/13/20 17:00 97.8 114 38 173/100 (124) 100 05/13/20 16:00 110 40 161/98 (119) 98 05/13/20 16:00 40 05/13/20 16:00 110 05/13/20 15:20 101 31 40 05/13/20 15:15 Mechanical Ventilator Mechanical Ventilator Mechanical Ventilator 05/13/20 15:03 115 40 151/84 (106) 97 05/13/20 14:00 101 40 127/69 (88) 99 05/13/20 13:00 103 43 164/90 (114) 99 05/13/20 13:00 103 34 40 05/13/20 12:00 Mechanical Ventilator Mechanical Ventilator Mechanical Ventilator 05/13/20 12:00 96 05/13/20 12:00 40 05/13/20 12:00 96 40 153/81 (105) 99 Intake and Output 05/13/20 05/14/20 19:00 07:00 Intake Total 832.5 ml 1720 ml Output Total 200 ml 120 ml Balance 632.5 ml 1600 ml IV Total 832.5 ml 1720 ml Stool Total 200 ml 120 ml Gastric Drainage Total 0 ml # Voids 1 40 Laboratory Tests 05/14/20 04:27: White Blood Count 9.5, Red Blood Count 2.37L, Hemoglobin 8.2L, Hematocrit 26.1L, Mean Corpuscular Volume 110H, Mean Corpuscular Hemoglobin 34.4H, Mean Corpuscul ar Hemoglobin Concent 31.3L, Red Cell Distribution Width 21.3H, Platelet Count 29L, Mean Platelet Volume 11.5H, Neutrophils (%) (Auto) , Lymphocytes (%) (Auto) , Monocytes (%) (Auto) , Eosinophils (%) (Auto) , Basophils (%) (Auto) , Differential Total Cells Counted 100, Neutrophils % (Manual) 90H, Lymphocytes % (Manual) 3L, Monocytes % (Manual) 2, Eosinophils % (Manual) 1, Basophils % (Manual) 0, Band Neutrophils 4, Platelet Estimate DecreasedL, Platelet Morphology Normal, Hypochromasia 1+, Anisocytosis 3+, Macrocytosis 1+, Sodium Level 138, Potassium Level 3.1L, Chloride Level 107, Carbon Dioxide Level 24, Anion Gap 7, Blood Urea Nitrogen 25H, Creatinine 2.7H, Estimat Glomerular Filtration Rate 23.0, Glucose Level 109H, Calcium Level 8.0L, Phosphorus Level 2.2L, Magnesium Level 1.7L, Total Bilirubin 0.3, Aspartate Amino Transf (AST/SGOT) 24, Alanine Aminotransferase (ALT/SGPT) < 6L, Alkaline Phosphatase 101, Total Protein 5.8L, Albumin 1.2L, Globulin 4.6, Albumin/Globulin Ratio 0.3L 05/14/20 06:55: POC Whole Blood Glucose 98 Height (Feet): 5 Height (Inches): 7.00 Weight (Pounds): 150 Objective General Appearance: WD/WN, lethargic, confused EENT: PERRL/EOMI, normal ENT inspection Neck: normal alignment, supple Cardiovascular: normal rate Respiratory/Chest: chest wall non-tender, lungs clear, crackles/rales, rhonchi - bilaterally Abdomen: normal bowel sounds, non tender, soft, no organomegaly Edema: no edema noted Arm (L), no edema noted Arm (R) Neurologic: disoriented, unresponsive, aphasia Skin: normal pigmentation Assessment/Plan Problem List: (1) Dehydration ICD Codes: E86.0 - Dehydration SNOMED: 70306383 (2) Ventilator associated pneumonia ICD Codes: J95.851 - Ventilator associated pneumonia SNOMED: 933972401, 27281262 (3) AUDREY (acute kidney injury) ICD Codes: N17.9 - Acute kidney failure, unspecified SNOMED: 8716964, 86150394 (4) Anemia ICD Codes: D64.9 - Anemia, unspecified SNOMED: 125670887, 460460354 (5) HCAP (healthcare-associated pneumonia) ICD Codes: J18.9 - Pneumonia, unspecified organism SNOMED: 274168490, 416901772 (6) CKD (chronic kidney disease) stage 3, GFR 30-59 ml/min ICD Codes: N18.3 - Chronic kidney disease, stage 3 (moderate) SNOMED: 812079961 (7) GIB (gastrointestinal bleeding) ICD Codes: K92.2 - Gastrointestinal hemorrhage, unspecified SNOMED: 67586492 (8) ARF (acute renal failure) ICD Codes: N17.9 - Acute kidney failure, unspecified SNOMED: 74357197, 863601847 (9) Pneumonia ICD Codes: J18.9 - Pneumonia, unspecified organism SNOMED: 190083923 (10) UTI (urinary tract infection) ICD Codes: N39.0 - Urinary tract infection, site not specified SNOMED: 60597108, 995806381 (11) Sepsis ICD Codes: A41.9 - Sepsis, unspecified organism SNOMED: 81737997 (12) Respiratory failure ICD Codes: J96.90 - Respiratory failure, unspecified, unspecified whether with hypoxia or hypercapnia SNOMED: 523740341 Status: stable, not improved Assessment/Plan: HD per renal IV abx per ID vent support resp rx monitor cxr monitor abg. adjust vent monitor h/h transfuse as needed wound care turn q2 dvt/stress ulcer prophylaxis tube feeds monitor residuals cont keppra for sz prn ativan for szs critical and guarded Jimi Tellez MD May 14, 2020 11:44
--- NOTE | 2020-05-14 12:27 | Infectious Diseases Prog Note ---
"Assessment/Plan Assessment/Plan antibiotics : meropenem A 1. klebsiella pneumonia 2. MRSA | coag neg staph sepsis s/p rx 3. renal failure 4. respiratory failure 5. seizures 6. CVA 7. CHF 8. leucocytosis improving 9. thrombocytopenia P 1. continue meropenem 3 more days 2. will follow up cultures Subjective ROS Limited/Unobtainable: Yes Allergies: Coded Allergies: No Known Allergies (Unverified , 02/23/12) Objective Last 24 Hour Vital Signs Date Time Temp Pulse Resp B/P (MAP) Pulse Ox O2 Delivery O2 Flow Rate FiO2 05/14/20 11:20 111 31 40 05/14/20 11:00 104 31 137/75 (95) 100 05/14/20 10:00 113 35 128/75 (92) 100 05/14/20 09:10 115 33 40 05/14/20 09:00 101 23 134/79 (97) 100 05/14/20 08:00 40 05/14/20 08:00 98.5 109 29 134/87 (103) 100 05/14/20 08:00 Mechanical Ventilator Mechanical Ventilator Mechanical Ventilator 05/14/20 07:50 111 05/14/20 07:15 109 30 40 05/14/20 07:00 97 29 117/73 (88) 100 05/14/20 06:00 97 30 114/73 (87) 100 05/14/20 05:22 104 35 40 05/14/20 05:00 100 38 120/76 (91) 100 05/14/20 04:00 40 05/14/20 04:00 Mechanical Ventilator Mechanical Ventilator Mechanical Ventilator 05/14/20 04:00 98.2 106 34 125/75 (92) 100 05/14/20 04:00 100 05/14/20 03:02 101 33 40 05/14/20 03:00 102 32 126/74 (91) 100 05/14/20 02:00 100 28 131/70 (90) 100 05/14/20 01:02 101 31 40 05/14/20 01:00 98 33 102/59 (73) 98 05/14/20 00:25 111 29 131/73 98 05/14/20 00:00 Mechanical Ventilator Mechanical Ventilator Mechanical Ventilator 05/14/20 00:00 103 05/14/20 00:00 40 11/15/20 00:00 98.0 111 29 131/73 (92) 98 05/13/20 23:55 103 33 147/87 98 05/13/20 23:35 105 36 137/83 (101) 99 05/13/20 23:30 103 29 176/103 (127) 99 05/13/20 23:00 104 34 160/108 (125) 99 05/13/20 22:49 103 33 40 05/13/20 22:00 105 36 155/92 (113) 99 05/13/20 21:30 108 35 168/98 (121) 99 05/13/20 21:00 100 30 159/94 (115) 99 05/13/20 20:55 100 30 40 05/13/20 20:00 105 05/13/20 20:00 40 05/13/20 20:00 99.7 99 31 139/81 (100) 99 05/13/20 20:00 Mechanical Ventilator Mechanical Ventilator Mechanical Ventilator 05/13/20 19:00 108 30 40 05/13/20 19:00 102 38 147/87 (107) 98 05/13/20 19:00 103 33 98 Mechanical Ventilator 40 05/13/20 18:00 104 38 153/88 (109) 99 05/13/20 17:14 104 39 40 05/13/20 17:00 97.8 114 38 173/100 (124) 100 05/13/20 16:00 110 40 161/98 (119) 98 05/13/20 16:00 40 05/13/20 16:00 110 05/13/20 15:20 101 31 40 05/13/20 15:15 Mechanical Ventilator Mechanical Ventilator Mechanical Ventilator 05/13/20 15:03 115 40 151/84 (106) 97 05/13/20 14:00 101 40 127/69 (88) 99 05/13/20 13:00 103 43 164/90 (114) 99 05/13/20 13:00 103 34 40 Height (Feet): 5 Height (Inches): 7.00 Weight (Pounds): 150 HEENT: status post trach Respiratory/Chest: lungs clear Cardiovascular: normal rate, regular rhythm, no gallop/murmur Abdomen: soft, non tender, other - GT Extremities: no edema, other - right IJ catheter Microbiology Date/Time Source Procedure Growth Status 05/12/20 12:00 Sputum Gram Stain - Final Resulted 05/12/20 12:00 Sputum Culture - Preliminary Gram Negative Jordin Resulted Laboratory Tests Test 05/14/20 04:27 05/14/20 06:55 White Blood Count 9.5 K/UL (4.8-10.8) Red Blood Count 2.37 M/UL (4.70-6.10) L Hemoglobin 8.2 G/DL (14.2-18.0) L Hematocrit 26.1 % (42.0-52.0) L Mean Corpuscular Volume 110 FL (80-99) H Mean Corpuscular Hemoglobin 34.4 PG (27.0-31.0) H Mean Corpuscular Hemoglobin Concent 31.3 G/DL (32.0-36.0) L Red Cell Distribution Width 21.3 % (11.6-14.8) H Platelet Count 29 K/UL (150-450) L Mean Platelet Volume 11.5 FL (6.5-10.1) H Neutrophils (%) (Auto) % (45.0-75.0) Lymphocytes (%) (Auto) % (20.0-45.0) Monocytes (%) (Auto) % (1.0-10.0) Eosinophils (%) (Auto) % (0.0-3.0) Basophils (%) (Auto) % (0.0-2.0) Differential Total Cells Counted 100 Neutrophils % (Manual) 90 % (45-75) H Lymphocytes % (Manual) 3 % (20-45) L Monocytes % (Manual) 2 % (1-10) Eosinophils % (Manual) 1 % (0-3) Basophils % (Manual) 0 % (0-2) Band Neutrophils 4 % (0-8) Platelet Estimate Decreased L Platelet Morphology Normal Hypochromasia 1+ Anisocytosis 3+ Macrocytosis 1+ Sodium Level 138 MMOL/L (136-145) Potassium Level 3.1 MMOL/L (3.5-5.1) L Chloride Level 107 MMOL/L (98-107) Carbon Dioxide Level 24 MMOL/L (21-32) Anion Gap 7 mmol/L (5-15) Blood Urea Nitrogen 25 mg/dL (7-18) H Creatinine 2.7 MG/DL (0.55-1.30) H Estimat Glomerular Filtration Rate 23.0 mL/min (>60) Glucose Level 109 MG/DL (74-106) H Calcium Level 8.0 MG/DL (8.5-10.1) L Phosphorus Level 2.2 MG/DL (2.5-4.9) L Magnesium Level 1.7 MG/DL (1.8-2.4) L Total Bilirubin 0.3 MG/DL (0.2-1.0) Aspartate Amino Transf (AST/SGOT) 24 U/L (15-37) Alanine Aminotransferase (ALT/SGPT) < 6 U/L (12-78) L Alkaline Phosphatase 101 U/L (46-116) Total Protein 5.8 G/DL (6.4-8.2) L Albumin 1.2 G/DL (3.4-5.0) L Globulin 4.6 g/dL Albumin/Globulin Ratio 0.3 (1.0-2.7) L POC Whole Blood Glucose 98 MG/DL (74-106) Current Medications Medications (Trade) Dose Ordered Sig/Lanny Route PRN Reason Start Time Stop Time Status Last Admin Dose Admin Acetaminophen (Tylenol) 650 mg Q4H PRN NG fever pain 05/03/20 21:30 06/02/20 21:29 Chlorhexidine Gluconate (Kayla-Hex 2%) 1 applic DAILY@2000 TOPIC 05/04/20 20:00 08/02/20 19:59 05/13/20 20:05 Clonidine HCl (Catapres Tab) 0.1 mg Q4H PRN GT SBP above 150 05/03/20 21:30 08/01/20 21:29 Dextrose 1,000 ml @ 0 mls/hr Q24H PRN IV PN interrupted or unavailable 05/12/20 12:15 06/11/20 12:14 Dextrose (Dextrose 50%) 25 ml Q30M PRN IV Hypoglycemia 05/12/20 11:30 08/10/20 11:29 Dextrose (Dextrose 50%) 50 ml Q30M PRN IV Hypoglycemia 05/12/20 11:30 08/10/20 11:29 Dextrose/Sodium Chloride 1,000 ml @ 50 mls/hr Q20H IV 05/06/20 11:00 06/05/20 10:59 05/13/20 20:21 Epoetin Asaf (Epoetin Asaf-EPBX(NON ESRD)) 10,000 unit FRI-FRI-FRI SUBQ 05/05/20 21:00 08/03/20 20:59 05/12/20 20:27 Fat Emulsion Intravenous 192 ml/Amino Acids/ Electrolytes/ Dextrose 1,200 ml @ 50 mls/hr Q24H IV 05/12/20 20:00 08/10/20 19:59 05/13/20 20:05 Levetiracetam 750 mg/Dextrose 102.5 ml @ 440 mls/hr Q12HR IV 05/08/20 21:00 06/07/20 20:59 05/14/20 09:21 Levothyroxine Sodium (Synthroid) 100 mcg DAILY IV 05/05/20 09:00 06/03/20 10:59 05/14/20 09:21 Meropenem 500 mg/ Sodium Chloride 55 ml @ 110 mls/hr Q24H IVPB 05/13/20 21:00 05/18/20 20:59 05/13/20 20:20 Midodrine (Pro-Amatine) 5 mg TID ORAL 05/05/20 09:00 08/03/20 08:59 05/14/20 09:22 Pantoprazole (Protonix) 40 mg EVERY 12 HOURS IVP 05/04/20 21:00 06/03/20 20:59 05/14/20 09:21 Phytonadione (Vitamin K) 10 mg QWEEK SUBQ 05/12/20 21:00 08/10/20 20:59 05/12/20 20:13 Isaak Hair MD May 14, 2020 12:27"
[2020-05-14] MEDS: Acetaminophen 650mg/20.3ml NG PRN ×2 (13:37→17:45)
--- NOTE | 2020-05-14 14:29 | Cardiology Progress Note ---
Subjective DATE OF SERVICE: May 14, 2020 On vent support Now off pressor support. IV thyroid replacement for TSH of 49 - but was unavailable today from pharmacy. Had coffee grounds from [employer]; req'd 2 units of PRBC's 05/05. Renal function remains impaired with poor urine output; patient had HD 05/05 with further sessions per renal. CXR (05/13)still with right infiltrate and small pl effusions. Objective Last 24 Hour Vital Signs Date Time Temp Pulse Resp B/P (MAP) Pulse Ox O2 Delivery O2 Flow Rate FiO2 05/14/20 14:00 134 34 143/82 (102) 95 05/14/20 13:00 122 33 145/81 (102) 97 05/14/20 12:00 100.5 113 32 142/82 (102) 99 05/14/20 12:00 Mechanical Ventilator Mechanical Ventilator Mechanical Ventilator 05/14/20 12:00 40 05/14/20 11:20 111 31 40 05/14/20 11:00 104 31 137/75 (95) 100 05/14/20 10:00 113 35 128/75 (92) 100 05/14/20 09:10 115 33 40 05/14/20 09:00 101 23 134/79 (97) 100 05/14/20 08:00 40 05/14/20 08:00 98.5 109 29 134/87 (103) 100 05/14/20 08:00 Mechanical Ventilator Mechanical Ventilator Mechanical Ventilator 05/14/20 07:50 111 05/14/20 07:15 109 30 40 05/14/20 07:00 97 29 117/73 (88) 100 05/14/20 06:00 97 30 114/73 (87) 100 05/14/20 05:22 104 35 40 05/14/20 05:00 100 38 120/76 (91) 100 05/14/20 04:00 40 05/14/20 04:00 Mechanical Ventilator Mechanical Ventilator Mechanical Ventilator 05/14/20 04:00 98.2 106 34 125/75 (92) 100 05/14/20 04:00 100 05/14/20 03:02 101 33 40 05/14/20 03:00 102 32 126/74 (91) 100 05/14/20 02:00 100 28 131/70 (90) 100 05/14/20 01:02 101 31 40 05/14/20 01:00 98 33 102/59 (73) 98 05/14/20 00:25 111 29 131/73 98 05/14/20 00:00 Mechanical Ventilator Mechanical Ventilator Mechanical Ventilator 05/14/20 00:00 103 05/14/20 00:00 40 05/14/20 00:00 98.0 111 29 131/73 (92) 98 05/13/20 23:55 103 33 147/87 98 05/13/20 23:35 105 36 137/83 (101) 99 05/13/20 23:30 103 29 176/103 (127) 99 05/13/20 23:00 104 34 160/108 (125) 99 05/13/20 22:49 103 33 40 05/13/20 22:00 105 36 155/92 (113) 99 05/13/20 21:30 108 35 168/98 (121) 99 05/13/20 21:00 100 30 159/94 (115) 99 05/13/20 20:55 100 30 40 05/13/20 20:00 105 05/13/20 20:00 40 05/13/20 20:00 99.7 99 31 139/81 (100) 99 05/13/20 20:00 Mechanical Ventilator Mechanical Ventilator Mechanical Ventilator 05/13/20 19:00 108 30 40 05/13/20 19:00 102 38 147/87 (107) 98 05/13/20 19:00 103 33 98 Mechanical Ventilator 40 05/13/20 18:00 104 38 153/88 (109) 99 05/13/20 17:14 104 39 40 05/13/20 17:00 97.8 114 38 173/100 (124) 100 05/13/20 16:00 110 40 161/98 (119) 98 05/13/20 16:00 40 05/13/20 16:00 110 05/13/20 15:20 101 31 40 05/13/20 15:15 Mechanical Ventilator Mechanical Ventilator Mechanical Ventilator 05/13/20 15:03 115 40 151/84 (106) 97 ROS: no change from my admit note. HEENT: Thick Trach secretions RHYTHM: ST LUNGS: bilateral rhonchi CARDIAC: normal rate, regular rhythm, normal S1 and S2 ABDOMEN: normal bowel sounds, soft, no organomegaly, G-Tube intact EXTREMITIES: trace edema, other - obtunded Laboratory Tests Test 05/14/20 04:27 05/14/20 06:55 White Blood Count 9.5 K/UL (4.8-10.8) Red Blood Count 2.37 M/UL (4.70-6.10) L Hemoglobin 8.2 G/DL (14.2-18.0) L Hematocrit 26.1 % (42.0-52.0) L Mean Corpuscular Volume 110 FL (80-99) H Mean Corpuscular Hemoglobin 34.4 PG (27.0-31.0) H Mean Corpuscular Hemoglobin Concent 31.3 G/DL (32.0-36.0) L Red Cell Distribution Width 21.3 % (11.6-14.8) H Platelet Count 29 K/UL (150-450) L Mean Platelet Volume 11.5 FL (6.5-10.1) H Neutrophils (%) (Auto) % (45.0-75.0) Lymphocytes (%) (Auto) % (20.0-45.0) Monocytes (%) (Auto) % (1.0-10.0) Eosinophils (%) (Auto) % (0.0-3.0) Basophils (%) (Auto) % (0.0-2.0) Differential Total Cells Counted 100 Neutrophils % (Manual) 90 % (45-75) H Lymphocytes % (Manual) 3 % (20-45) L Monocytes % (Manual) 2 % (1-10) Eosinophils % (Manual) 1 % (0-3) Basophils % (Manual) 0 % (0-2) Band Neutrophils 4 % (0-8) Platelet Estimate Decreased L Platelet Morphology Normal Hypochromasia 1+ Anisocytosis 3+ Macrocytosis 1+ Sodium Level 138 MMOL/L (136-145) Potassium Level 3.1 MMOL/L (3.5-5.1) L Chloride Level 107 MMOL/L (98-107) Carbon Dioxide Level 24 MMOL/L (21-32) Anion Gap 7 mmol/L (5-15) Blood Urea Nitrogen 25 mg/dL (7-18) H Creatinine 2.7 MG/DL (0.55-1.30) H Estimat Glomerular Filtration Rate 23.0 mL/min (>60) Glucose Level 109 MG/DL (74-106) H Calcium Level 8.0 MG/DL (8.5-10.1) L Phosphorus Level 2.2 MG/DL (2.5-4.9) L Magnesium Level 1.7 MG/DL (1.8-2.4) L Total Bilirubin 0.3 MG/DL (0.2-1.0) Aspartate Amino Transf (AST/SGOT) 24 U/L (15-37) Alanine Aminotransferase (ALT/SGPT) < 6 U/L (12-78) L Alkaline Phosphatase 101 U/L (46-116) Total Protein 5.8 G/DL (6.4-8.2) L Albumin 1.2 G/DL (3.4-5.0) L Globulin 4.6 g/dL Albumin/Globulin Ratio 0.3 (1.0-2.7) L POC Whole Blood Glucose 98 MG/DL (74-106) Microbiology Date/Time Source Procedure Growth Status 05/12/20 12:00 Sputum Gram Stain - Final Resulted 05/12/20 12:00 Sputum Culture - Preliminary Gram Negative Jordin Resulted Assessment/Plan Assessment/Plan Shock recovered Sepsis [facility] PNA Leukocytosis GI bleeding Anemia Hypokalemia Ventilator dep respiratory failure Severe protein calorie malnutrition Ac/chronic diastolic CHF Acute renal failure now on HD. Chronic encephalopathy Metabolic acidosis Avoid pressors; discontinue midodrine. Vent support Antimicrobials IV thyroid replacement IVF; cautious K+ suppl with renal failure. Consider PRBC transfusion for recurrent bleeding; holding all anti-plt and anti- coagulants. DVT prophylaxis Add'l dialysis per renal EGD per GI; only if will alter current management. Franko Pineda MD May 14, 2020 14:29
[2020-05-14] MEDS ORDERED: LORazepam Inj 2mg/ml 1ml IV PRN (14:30)
[2020-05-14] MEDS ORDERED: D5NS 1000ml IV ONE ×2 (15:10→15:12)
[2020-05-14] MEDS ORDERED: NS 275ml ONE ×3 (15:10→15:12)
[2020-05-14] MEDS ORDERED: Tubing IV Secondary IV ONE ×2 (15:11→15:12)
--- NOTE | 2020-05-14 16:55 | Pulmonolgy Critical Care Note ---
Critical Care - Asmt/Plan Assessment/Plan: Pulmonary CCM Progress Note Assessment/Plan Assessment/Plan IMPRESSION: Respiratory failure chronic, chronic encephalopathy, sepsis, leukoc ytosis, G-tube, aspiration, acute on chronic renal failure, electrolyte abnormality, failure to thrive, severe protein-calorie malnutrition, chronic CO2 retention; Hypoxemia, worsening acidemia, tachypnea RECOMMENDATIONS: Care noted; ABG and monitor needs for oxygen; on pressors as needed; TPN with low protein levels per Renal; Supportive care. IV antibiotics and adjust and discuss. Respiratory support and vent management- taper oxygen needs as able, monitor acid base and hyperventilate retirement medications. Monitor clinically. Prognosis is overall poor for meaningful recovery but still full code . monitor labs and adjust therapy; on HD and UF as able renal ID cardiology following- intermittent tachycardia; await further recommendations and stabilization remains critical medications/laboratory data/nursing notes/ICU care reviewed in detail note reviewed and edited care discussed with RN and RT ICU time spent >40 minutes Critical Care - Subjective Interval Events: doing poorly care noted off feeds due to ileus holding albuterol ROS Limited/Unobtainable: Yes Condition: critical EKG Rhythm: Sinus Tachycardia Residuals: high I&O: Critical Care - Objective Vital Signs noted Labs: noted Objective: WDWN NAD reduced breath sounds bilaterally some rhonchi [id number] tachy without MRG hypoactive distended GT no CCE significant contractures nonfocal obtunded trach in place Vent skin noted obtunded Micro: Microbiology Date/Time Source Procedure Growth Status 05/09/20 15:40 Blood Blood Culture - Preliminary NO GROWTH AFTER 48 HOURS Resulted Critical Care - Objective Last 24 Hour Vital Signs Date Time Temp Pulse Resp B/P (MAP) Pulse Ox O2 Delivery O2 Flow Rate FiO2 05/14/20 16:00 Mechanical Ventilator Mechanical Ventilator Mechanical Ventilator 05/14/20 16:00 145 32 122/71 (88) 96 05/14/20 16:00 40 05/14/20 15:24 135 43 40 05/14/20 15:21 132 34 125/71 97 05/14/20 15:00 132 34 125/71 (89) 97 05/14/20 14:44 134 34 143/82 95 05/14/20 14:36 100.6 05/14/20 14:00 134 34 143/82 (102) 95 05/14/20 13:10 133 33 40 05/14/20 13:00 122 33 145/81 (102) 97 05/14/20 12:04 115 05/14/20 12:00 100.5 113 32 142/82 (102) 99 05/14/20 12:00 Mechanical Ventilator Mechanical Ventilator Mechanical Ventilator 05/14/20 12:00 40 05/14/20 11:20 111 31 40 05/14/20 11:00 104 31 137/75 (95) 100 05/14/20 10:00 113 35 128/75 (92) 100 05/14/20 09:10 115 33 40 05/14/20 09:00 101 23 134/79 (97) 100 05/14/20 08:00 40 05/14/20 08:00 98.5 109 29 134/87 (103) 100 05/14/20 08:00 Mechanical Ventilator Mechanical Ventilator Mechanical Ventilator 05/14/20 07:50 111 05/14/20 07:15 109 30 40 05/14/20 07:00 97 29 117/73 (88) 100 05/14/20 06:00 97 30 114/73 (87) 100 05/14/20 05:22 104 35 40 05/14/20 05:00 100 38 120/76 (91) 100 05/14/20 04:00 40 05/14/20 04:00 Mechanical Ventilator Mechanical Ventilator Mechanical Ventilator 05/14/20 04:00 98.2 106 34 125/75 (92) 100 05/14/20 04:00 100 05/14/20 03:02 101 33 40 05/14/20 03:00 102 32 126/74 (91) 100 05/14/20 02:00 100 28 131/70 (90) 100 05/14/20 01:02 101 31 40 05/14/20 01:00 98 33 102/59 (73) 98 05/14/20 00:25 111 29 131/73 98 05/14/20 00:00 Mechanical Ventilator Mechanical Ventilator Mechanical Ventilator 05/14/20 00:00 103 05/14/20 00:00 40 05/14/20 00:00 98.0 111 29 131/73 (92) 98 05/13/20 23:55 103 33 147/87 98 05/13/20 23:35 105 36 137/83 (101) 99 05/13/20 23:30 103 29 176/103 (127) 99 05/13/20 23:00 104 34 160/108 (125) 99 05/13/20 22:49 103 33 40 05/13/20 22:00 105 36 155/92 (113) 99 05/13/20 21:30 108 35 168/98 (121) 99 05/13/20 21:00 100 30 159/94 (115) 99 05/13/20 20:55 100 30 40 05/13/20 20:00 105 05/13/20 20:00 40 05/13/20 20:00 99.7 99 31 139/81 (100) 99 05/13/20 20:00 Mechanical Ventilator Mechanical Ventilator Mechanical Ventilator 05/13/20 19:00 108 30 40 05/13/20 19:00 102 38 147/87 (107) 98 05/13/20 19:00 103 33 98 Mechanical Ventilator 40 05/13/20 18:00 104 38 153/88 (109) 99 05/13/20 17:14 104 39 40 05/13/20 17:00 97.8 114 38 173/100 (124) 100 Micro: Microbiology Date/Time Source Procedure Growth Status 05/12/20 12:00 Sputum Gram Stain - Final Resulted 05/12/20 12:00 Sputum Culture - Preliminary Gram Negative Jordin Resulted Accucheck: 98 Critical Care - Subjective ROS Limited/Unobtainable: Yes Condition: critical FI02: 40 Vent Support Breath Rate: 30 Vent Support Mode: AC Vent Tidal Volume: 500 Sputum Amount: Moderate PEEP: 8.0 PIP: 52 Tube Feeding Amount: 20 I&O: Intake and Output 05/13/20 05/14/20 19:00 07:00 Intake Total 832.5 ml 1720 ml Output Total 200 ml 120 ml Balance 632.5 ml 1600 ml IV Total 832.5 ml 1720 ml Stool Total 200 ml 120 ml Gastric Drainage Total 0 ml # Voids 1 40 Franko Flynn MD May 14, 2020 16:54
[2020-05-14] MEDS ORDERED: Potassium Phosphate 15mm/250ml 250 ML IVPB ONE (17:00)
--- NOTE | 2020-05-14 17:20 | Surgery Progress Note ---
Surgery Progress Note Subjective Procedure Performed Left femoral temporary hemodialysis catheter insertion Additional Comments ill appearing no n/v labs noted on support abd distended Objective Last 24 Hour Vital Signs Date Time Temp Pulse Resp B/P (MAP) Pulse Ox O2 Delivery O2 Flow Rate FiO2 05/14/20 16:00 Mechanical Ventilator Mechanical Ventilator Mechanical Ventilator 05/14/20 16:00 145 32 122/71 (88) 96 05/14/20 16:00 40 05/14/20 15:24 135 43 40 05/14/20 15:21 132 34 125/71 97 05/14/20 15:00 132 34 125/71 (89) 97 05/14/20 14:44 134 34 143/82 95 05/14/20 14:36 100.6 05/14/20 14:00 134 34 143/82 (102) 95 05/14/20 13:10 133 33 40 05/14/20 13:00 122 33 145/81 (102) 97 05/14/20 12:04 115 05/14/20 12:00 100.5 113 32 142/82 (102) 99 05/14/20 12:00 Mechanical Ventilator Mechanical Ventilator Mechanical Ventilator 05/14/20 12:00 40 05/14/20 11:20 111 31 40 05/14/20 11:00 104 31 137/75 (95) 100 05/14/20 10:00 113 35 128/75 (92) 100 05/14/20 09:10 115 33 40 05/14/20 09:00 101 23 134/79 (97) 100 05/14/20 08:00 40 05/14/20 08:00 98.5 109 29 134/87 (103) 100 05/14/20 08:00 Mechanical Ventilator Mechanical Ventilator Mechanical Ventilator 05/14/20 07:50 111 05/14/20 07:15 109 30 40 05/14/20 07:00 97 29 117/73 (88) 100 05/14/20 06:00 97 30 114/73 (87) 100 05/14/20 05:22 104 35 40 05/14/20 05:00 100 38 120/76 (91) 100 05/14/20 04:00 40 05/14/20 04:00 Mechanical Ventilator Mechanical Ventilator Mechanical Ventilator 05/14/20 04:00 98.2 106 34 125/75 (92) 100 05/14/20 04:00 100 05/14/20 03:02 101 33 40 05/14/20 03:00 102 32 126/74 (91) 100 05/14/20 02:00 100 28 131/70 (90) 100 05/14/20 01:02 101 31 40 05/14/20 01:00 98 33 102/59 (73) 98 05/14/20 00:25 111 29 131/73 98 05/14/20 00:00 Mechanical Ventilator Mechanical Ventilator Mechanical Ventilator 05/14/20 00:00 103 05/14/20 00:00 40 05/14/20 00:00 98.0 111 29 131/73 (92) 98 05/13/20 23:55 103 33 147/87 98 05/13/20 23:35 105 36 137/83 (101) 99 05/13/20 23:30 103 29 176/103 (127) 99 05/13/20 23:00 104 34 160/108 (125) 99 05/13/20 22:49 103 33 40 05/13/20 22:00 105 36 155/92 (113) 99 05/13/20 21:30 108 35 168/98 (121) 99 05/13/20 21:00 100 30 159/94 (115) 99 05/13/20 20:55 100 30 40 05/13/20 20:00 105 05/13/20 20:00 40 05/13/20 20:00 99.7 99 31 139/81 (100) 99 05/13/20 20:00 Mechanical Ventilator Mechanical Ventilator Mechanical Ventilator 05/13/20 19:00 108 30 40 05/13/20 19:00 102 38 147/87 (107) 98 05/13/20 19:00 103 33 98 Mechanical Ventilator 40 05/13/20 18:00 104 38 153/88 (109) 99 I&O Intake and Output 05/13/20 05/14/20 19:00 07:00 Intake Total 832.5 ml 1720 ml Output Total 200 ml 120 ml Balance 632.5 ml 1600 ml IV Total 832.5 ml 1720 ml Stool Total 200 ml 120 ml Gastric Drainage Total 0 ml # Voids 1 40 Dressing: saturated Cardiovascular: RSR Respiratory: decreased breath sounds Abdomen: non-tender, present bowel sounds Extremities: no tenderness, no cyanosis Laboratory Tests Test 05/14/20 04:27 05/14/20 06:55 White Blood Count 9.5 K/UL (4.8-10.8) Red Blood Count 2.37 M/UL (4.70-6.10) L Hemoglobin 8.2 G/DL (14.2-18.0) L Hematocrit 26.1 % (42.0-52.0) L Mean Corpuscular Volume 110 FL (80-99) H Mean Corpuscular Hemoglobin 34.4 PG (27.0-31.0) H Mean Corpuscular Hemoglobin Concent 31.3 G/DL (32.0-36.0) L Red Cell Distribution Width 21.3 % (11.6-14.8) H Platelet Count 29 K/UL (150-450) L Mean Platelet Volume 11.5 FL (6.5-10.1) H Neutrophils (%) (Auto) % (45.0-75.0) Lymphocytes (%) (Auto) % (20.0-45.0) Monocytes (%) (Auto) % (1.0-10.0) Eosinophils (%) (Auto) % (0.0-3.0) Basophils (%) (Auto) % (0.0-2.0) Differential Total Cells Counted 100 Neutrophils % (Manual) 90 % (45-75) H Lymphocytes % (Manual) 3 % (20-45) L Monocytes % (Manual) 2 % (1-10) Eosinophils % (Manual) 1 % (0-3) Basophils % (Manual) 0 % (0-2) Band Neutrophils 4 % (0-8) Platelet Estimate Decreased L Platelet Morphology Normal Hypochromasia 1+ Anisocytosis 3+ Macrocytosis 1+ Sodium Level 138 MMOL/L (136-145) Potassium Level 3.1 MMOL/L (3.5-5.1) L Chloride Level 107 MMOL/L (98-107) Carbon Dioxide Level 24 MMOL/L (21-32) Anion Gap 7 mmol/L (5-15) Blood Urea Nitrogen 25 mg/dL (7-18) H Creatinine 2.7 MG/DL (0.55-1.30) H Estimat Glomerular Filtration Rate 23.0 mL/min (>60) Glucose Level 109 MG/DL (74-106) H Calcium Level 8.0 MG/DL (8.5-10.1) L Phosphorus Level 2.2 MG/DL (2.5-4.9) L Magnesium Level 1.7 MG/DL (1.8-2.4) L Total Bilirubin 0.3 MG/DL (0.2-1.0) Aspartate Amino Transf (AST/SGOT) 24 U/L (15-37) Alanine Aminotransferase (ALT/SGPT) < 6 U/L (12-78) L Alkaline Phosphatase 101 U/L (46-116) Total Protein 5.8 G/DL (6.4-8.2) L Albumin 1.2 G/DL (3.4-5.0) L Globulin 4.6 g/dL Albumin/Globulin Ratio 0.3 (1.0-2.7) L POC Whole Blood Glucose 98 MG/DL (74-106) Plan Problems: (1) Dehydration (2) Ventilator associated pneumonia (3) AUDREY (acute kidney injury) (4) Hypokalemia (5) Hyperkalemia (6) Hypomagnesemia (7) Anemia (8) Decubitus skin ulcer Assessment & Plan: Pt presented on admission with gross contractures, Multiple Pressure Injuries, Tracheostomy. Skin Assessed under tracheal collar and no evidence of skin breakdown noted. Tear noted to urinary meatus- no exudate noted. Scrotum is erythematous with scattered satellite lesions. Large ulcer noted to R scrotal sac (L)4cm x (W)4.6cm. Base of wound is erythematous ,moist with Biofilm. Sacral DTPI with clusters of small islands of slough with surrounding maroon and indurated areas (L)8cm x (W)12cm.Mild Odor noted. Partial thickness Pressure Injury Upper/outer R buttocks(L)1.8cm x (W)1.3cm. Base of wound is moist and viable. Edges adherent to base of wound. Surrounding non-blanching erythema with scattered areas of shearing noted. Partial thickness Pressure Inferior lower R buttocks.(L)0.8cm x (W)1.2cm. Base of wound is moist and viable. Edges adherent to base of wound. Surrounding non-blanching erythema with scattered shearing noted extending into R ischial tuberosity. Clusters of small hyperpigmentation noted to L trochanteric and L ischial tuberosity. R Heel is fluctuant with scattered dry eschar and surrounding Non-Blanchable erythema.(L)6.5cm x (W)8cm. DTPI distal/lateral R foot(L)3cm x (W)3cm. Base of wound is maroon and fluctuant. dry eschar noted to tip of R 1st metatarsal with surrounding non-blanchable erythema extending dorsally and laterally of metatarsal(L)5cm x (W)1.3cm Non-Blanchable erythema that is fluctuant at base noted to dorso/lateral L 5th metatarsal(L)0.6cm x (W)0.3cm. L Heel is boggy with non-blanchable erythema laterally. Hyperpigmentation from previous wound noted at L heel. Tx.Plan: Cleanse Sacral wound with Saline. Apply TheraHoney to slough. Apply Moisture Barrier Paste periwound. Cover with Optifoam drsg. Change daily and prn. Apply Moisture Barrier Paste to Wounds R upper and lower R Buttocks. Cover each wound with Optifoam drsg. Change every 3 days and prn. Apply Zinc Oxide Paste to Scrotal Wounds TID and prn. Apply Betadine to wounds R heel and R foot . Cover with ABD Pads and wrap with Kerlix every 3 days and prn. Apply Betadine to L foot. Cover with ABD Pads and wrap with Kerlix every 3 days and prn. Cover Bony Prominences as needed with Optifoam drsgs. Reposition at least every 2hours or as tolerated. Off-load heels with pillow. APM/VIRAL Mattress DAILY ESTIMATED NEEDS: Needs based on Critical care, 63kg 22-30 kcals/kg 0290-6079 total kcals 1.25-2 g protein/kg 79-126 g total protein 25-30 mL/kg 6654-7861 total fluid mLs NUTRITION DIAGNOSIS: Swallowing difficulty r/ respiratory status as evidenced by pt is vent dep via trach, PEG dep. CURRENT TF:NPO ENTERAL NUTRITION RECOMMENDATIONS: Vital AF 1.2 @ 55ml/hr x 22 hrs to provide 1210ml, 1452kcal, 91g prot, 981ml free water - As medically able, rec Vital 1.2. Start @15ml/hr for 6 hrs, advance as tolerated 10ml/hr q4-6 hrs to goal. - Hold 1 hr before and after synthroid. - Flush per [place] over 30 degrees - Feed w/ hemodynamic stability. ADDITIONAL RECOMMENDATIONS: 1) Obtain calibrated bed scale wts-> recent adm wt was 63kg vs 68kg today 2) Monitor renal labs and lytes, need for renal formula 3) Rec WC eval -> currently NPO 4) Monitor hemodynamic stability, ability to feed (9) SOB (shortness of breath) (10) Hypernatremia (11) Aspiration pneumonia (12) Renal insufficiency (13) Respiratory insufficiency (14) Respiratory failure (15) Malnutrition (16) Sepsis Assessment & Plan: Leukocytosis, lactic acidosis, abnormal labs. In ICU resuscitation imaging noted micro noted. 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 No definite nondilated small bowel is visualized. Degree of distention is somewhat increased from the prior CT scan. Much of the colon is gas filled, upper limits normal in caliber, with the cecum (which is in the right upper quadrant) bordering on rand distention this is similar to the previous exam. The esophagus is dilated and gas filled. There is mild esophageal wall thickening at the gastroesophageal junction; this appears similar to the previous exam. Contrast is seen within the stomach. Gastrostomy is again demonstrated. There is a small amount free intraperitoneal fluid, predominantly in the right lower quadrant mesenteric root and in the right upper quadrant. No definite free intraperitoneal gas is evident. There is a rectal tube in place. Lack of IV contrast limits assessment of the solid organs. The gallbladder is nondistended. The liver, bile ducts, pancreas, spleen, adrenals, right kidney are unremarkable. The left kidney demonstrates a lower pole cyst. The bladder demonstrates mild wall thickening. The prostate is enlarged. There is diffuse edema of the presacral fat and diffuse generalized edema of the abdominal and mesenteric fat. There are small bilateral pleural effusions. There is extensive consolidation of both lung bases, with in particular very dense consolidation occupying most of the visualized left lower lobe and right middle lobe The bones demonstrate degenerative spondylosis changes. There is a chronic fracture of the left hip, and chronic erosive changes of the left acetabulum. Chronic inflammatory soft tissue seen surrounding the left hip. There is evidence of contracture of the right hip Impression: Diffusely mildly dilated small bowel loops, overall degree of distention slightly increased from 03/09/2020. No definite transition point demonstrated; findings are probably on the basis of ileus or age-related dysmotility. There is also some dilated colon again demonstrated Evidence of anasarca, with ascites fluid, extensive edema of the subcutaneous fat, abdominal fat, as well as bilateral pleural effusions Extensive bilateral diffuse pulmonary consolidation, with particularly dense consolidation in the left lower lobe and right middle lobe. Findings most likely represent pneumonia, but could also represent pulmonary edema Dilated gas-filled esophagus, significance uncertain. Mild esophageal wall thickening at the gastroesophageal junction could indicate esophagitis. This also previously demonstrated Rectal tube in place Chronic fracture of the left hip, chronic erosive changes of the left acetabulum, and auditory soft tissue surrounding the left hip. Evidence of right hip contractures Prostatomegaly. Bladder wall thickening, may indicate chronic bladder outlet obstruction versus cystitis (29) HCAP (healthcare-associated pneumonia) (30) Suspected COVID-19 virus infection Rehan Geronimo May 14, 2020 17:20
--- NOTE | 2020-05-14 18:46 | Nephrology Progress Note ---
Assessment/Plan Problem List: (1) Aspiration pneumonia (2) Respiratory insufficiency (3) Respiratory failure (4) Malnutrition (5) Sepsis (6) ARF (acute renal failure) (7) Protein-calorie malnutrition, severe (8) HCAP (healthcare-associated pneumonia) Plan bp better vent , tpn grave prognosis HD 05/15 Subjective ROS Limited/Unobtainable: Yes Objective Objective Last 24 Hour Vital Signs Date Time Temp Pulse Resp B/P (MAP) Pulse Ox O2 Delivery O2 Flow Rate FiO2 05/14/20 18:38 146 41 100 05/14/20 18:28 102.6 05/14/20 18:00 151 26 119/67 (84) 100 05/14/20 17:10 163 41 100 05/14/20 17:00 102.1 147 35 126/83 (97) 94 05/14/20 16:14 147 05/14/20 16:00 Mechanical Ventilator Mechanical Ventilator Mechanical Ventilator 05/14/20 16:00 145 32 122/71 (88) 96 05/14/20 16:00 40 05/14/20 15:24 135 43 40 05/14/20 15:21 132 34 125/71 97 05/14/20 15:00 132 34 125/71 (89) 97 05/14/20 14:44 134 34 143/82 95 05/14/20 14:36 100.6 05/14/20 14:00 134 34 143/82 (102) 95 05/14/20 13:10 133 33 40 05/14/20 13:00 122 33 145/81 (102) 97 05/14/20 12:04 115 05/14/20 12:00 100.5 113 32 142/82 (102) 99 05/14/20 12:00 Mechanical Ventilator Mechanical Ventilator Mechanical Ventilator 05/14/20 12:00 40 05/14/20 11:20 111 31 40 05/14/20 11:00 104 31 137/75 (95) 100 05/14/20 10:00 113 35 128/75 (92) 100 05/14/20 09:10 115 33 40 05/14/20 09:00 101 23 134/79 (97) 100 05/14/20 08:00 40 05/14/20 08:00 98.5 109 29 134/87 (103) 100 05/14/20 08:00 Mechanical Ventilator Mechanical Ventilator Mechanical Ventilator 05/14/20 07:50 111 05/14/20 07:15 109 30 40 05/14/20 07:00 97 29 117/73 (88) 100 05/14/20 06:00 97 30 114/73 (87) 100 05/14/20 05:22 104 35 40 05/14/20 05:00 100 38 120/76 (91) 100 05/14/20 04:00 40 05/14/20 04:00 Mechanical Ventilator Mechanical Ventilator Mechanical Ventilator 05/14/20 04:00 98.2 106 34 125/75 (92) 100 05/14/20 04:00 100 05/14/20 03:02 101 33 40 05/14/20 03:00 102 32 126/74 (91) 100 05/14/20 02:00 100 28 131/70 (90) 100 05/14/20 01:02 101 31 40 05/14/20 01:00 98 33 102/59 (73) 98 05/14/20 00:25 111 29 131/73 98 05/14/20 00:00 Mechanical Ventilator Mechanical Ventilator Mechanical Ventilator 05/14/20 00:00 103 05/14/20 00:00 40 05/14/20 00:00 98.0 111 29 131/73 (92) 98 05/13/20 23:55 103 33 147/87 98 05/13/20 23:35 105 36 137/83 (101) 99 05/13/20 23:30 103 29 176/103 (127) 99 05/13/20 23:00 104 34 160/108 (125) 99 05/13/20 22:49 103 33 40 05/13/20 22:00 105 36 155/92 (113) 99 05/13/20 21:30 108 35 168/98 (121) 99 05/13/20 21:00 100 30 159/94 (115) 99 05/13/20 20:55 100 30 40 05/13/20 20:00 105 05/13/20 20:00 40 05/13/20 20:00 99.7 99 31 139/81 (100) 99 05/13/20 20:00 Mechanical Ventilator Mechanical Ventilator Mechanical Ventilator 05/13/20 19:00 108 30 40 05/13/20 19:00 102 38 147/87 (107) 98 05/13/20 19:00 103 33 98 Mechanical Ventilator 40 Intake and Output 05/13/20 05/14/20 19:00 07:00 Intake Total 832.5 ml 1720 ml Output Total 200 ml 120 ml Balance 632.5 ml 1600 ml IV Total 832.5 ml 1720 ml Stool Total 200 ml 120 ml Gastric Drainage Total 0 ml # Voids 1 40 Laboratory Tests 05/14/20 04:27: White Blood Count 9.5, Red Blood Count 2.37L, Hemoglobin 8.2L, Hematocrit 26.1L, Mean Corpuscular Volume 110H, Mean Corpuscular Hemoglobin 34.4H, Mean Co rpuscular Hemoglobin Concent 31.3L, Red Cell Distribution Width 21.3H, Platelet Count 29L, Mean Platelet Volume 11.5H, Neutrophils (%) (Auto) , Lymphocytes (%) (Auto) , Monocytes (%) (Auto) , Eosinophils (%) (Auto) , Basophils (%) (Auto) , Differential Total Cells Counted 100, Neutrophils % (Manual) 90H, Lymphocytes % (Manual) 3L, Monocytes % (Manual) 2, Eosinophils % (Manual) 1, Basophils % (M anual) 0, Band Neutrophils 4, Platelet Estimate DecreasedL, Platelet Morphology Normal, Hypochromasia 1+, Anisocytosis 3+, Macrocytosis 1+, Sodium Level 138, Potassium Level 3.1L, Chloride Level 107, Carbon Dioxide Level 24, Anion Gap 7, Blood Urea Nitrogen 25H, Creatinine 2.7H, Estimat Glomerular Filtration Rate 23.0, Glucose Level 109H, Calcium Level 8.0L, Phosphorus Level 2.2L, Magnesium Level 1.7L, Total Bilirubin 0.3, Aspartate Amino Transf (AST/SGOT) 24, Alanine Aminotransferase (ALT/SGPT) < 6L, Alkaline Phosphatase 101, Total Protein 5.8L, Albumin 1.2L, Globulin 4.6, Albumin/Globulin Ratio 0.3L 05/14/20 06:55: POC Whole Blood Glucose 98 Height (Feet): 5 Height (Inches): 7.00 Weight (Pounds): 150 General Appearance: lethargic, other - on vent Cardiovascular: regular rhythm Respiratory/Chest: rhonchi - bilaterally Abdomen: non tender Extremities: trace edema Neurologic: unresponsive Cl Gong MD May 14, 2020 18:46
[2020-05-14] MEDS ORDERED: dilTIAZem Premix 125mg/125ml 125 ML IVPB SCH (19:15)
--- NOTE | 2020-05-14 19:26 | Diagnostic Imaging Report ---
EXAM: XR Chest, 1 View CLINICAL HISTORY: F/U TECHNIQUE: Frontal view of the chest. COMPARISON: Chest x-ray 05/10/2020 FINDINGS: Lungs: Similar-appearing bilateral interstitial and airspace opacities. Pleural space: No pleural effusion. No pneumothorax. Heart: Unremarkable. No cardiomegaly. Bones/joints: Unremarkable. Tubes, lines and devices: Tracheostomy cannula with a balloon that is inflated to 5 cm. Unchanged. Upper abdomen: Gaseous distended bowel loops in the abdomen. Unchanged. IMPRESSION: 1. Similar-appearing bilateral interstitial and airspace opacities.
[2020-05-14] MEDS: Dyna-Hex 2% Top Sol 2oz TOPIC SCH (19:50)
[2020-05-14] MEDS: TPN IV SCH (20:01)
[2020-05-14] MEDS: FAT EMULSION 20% IV SCH (20:01)
[2020-05-14] MEDS: Meropenem 500mg/NS 55ml IVPB SCH ×2 (21:26)
[2020-05-15] VITALS (59 sets, daily range): BP systolic 70–107; BP diastolic 39–75
[2020-05-15 05:57] LABS: HEMATOCRIT 24.3 % (42.0-52.0); HEMOGLOBIN 7.6 G/DL (14.2-18.0); MEAN CORPUSCULAR VOLUME 110 FL (80-99); PLATELET COUNT 22 K/UL (150-450); RED BLOOD COUNT 2.21 M/UL (4.70-6.10); RED CELL DISTRIBUTION WIDTH 20.1 % (11.6-14.8); WHITE BLOOD COUNT 16.7 K/UL (4.8-10.8)
[2020-05-15 06:32] LABS: CALCIUM 8.5 MG/DL (8.5-10.1); CREATININE 3.2 MG/DL (0.55-1.30); PHOSPHORUS 2.5 MG/DL (2.5-4.9); POTASSIUM 3.4 MMOL/L (3.5-5.1)
[2020-05-15] MEDS ORDERED: Heparin Sod 1000 units/ml 10ml IV PRN (08:00)
--- NOTE | 2020-05-15 08:41 | Critical Care Progress Note ---
Assessment/Plan Assessment/Plan IMPRESSION: Respiratory failure chronic, chronic encephalopathy, sepsis, leukocytosis, G-tube, aspiration, acute on chronic renal failure, electrolyte abnormality, failure to thrive, severe protein-calorie malnutrition, chronic CO2 retention; Hypoxemia, worsening acidemia, tachypnea and tachycardia RECOMMENDATIONS: ABG and monitor needs for oxygen and hyperventilate; on pressors as needed; TPN as per Renal; Supportive care. IV antibiotics and adjust and discuss. Respiratory support and vent management and try to keep ph >7.25 and oxygen needs as able, monitor acid base and hyperventilate mcfp medications. Monitor clinically. Prognosis is overall poor for meaningful recovery but still full code. on HD and UF as able renal ID cardiology; await further recommendations and stabilization remains critical and not improved medications/laboratory data/nursing notes/ICU care reviewed in detail note reviewed and edited care discussed with RN and RT ICU time spent >40 minutes Critical Care - Subjective Interval Events: care noted reviewed and discussed weekend events critical ROS Limited/Unobtainable: Yes Condition: critical EKG Rhythm: Sinus Tachycardia I&O: Intake and Output 05/14/20 05/15/20 19:00 07:00 Intake Total 1032.7 ml 747.61 ml Output Total 210 ml 195 ml Balance 822.7 ml 552.61 ml IV Total 1032.7 ml 747.61 ml Output Urine Total 210 ml 95 ml Stool Total 100 ml Critical Care - Objective Last 24 Hour Vital Signs Date Time Temp Pulse Resp B/P (MAP) Pulse Ox O2 Delivery O2 Flow Rate FiO2 05/15/20 08:33 118 37 50 05/15/20 07:30 120 39 107/60 (76) 99 05/15/20 07:16 116 33 50 05/15/20 07:00 118 34 97/51 (66) 99 05/15/20 06:00 118 35 104/60 (75) 98 05/15/20 05:30 117 41 100/50 (67) 98 05/15/20 05:27 121 36 50 05/15/20 05:00 123 37 107/73 (84) 99 05/15/20 04:30 122 44 83/47 (59) 98 05/15/20 04:00 99.6 119 34 94/72 (79) 98 05/15/20 04:00 118 11/16/20 04:00 60 05/15/20 04:00 Mechanical Ventilator Mechanical Ventilator Mechanical Ventilator 05/15/20 03:40 121 38 60 05/15/20 03:30 118 33 93/75 (81) 100 05/15/20 03:00 123 34 85/48 (60) 100 05/15/20 02:30 116 35 94/56 (69) 100 05/15/20 02:00 129 38 96/51 (66) 99 05/15/20 01:32 123 39 50 05/15/20 01:30 120 37 97/54 (68) 97 05/15/20 01:00 132 39 103/55 (71) 94 05/15/20 00:00 99.5 131 35 93/52 (66) 94 05/15/20 00:00 Mechanical Ventilator Mechanical Ventilator Mechanical Ventilator 05/15/20 00:00 138 05/15/20 00:00 50 05/14/20 23:02 138 32 50 05/14/20 23:00 138 33 95/64 (74) 95 05/14/20 22:00 139 33 100/63 (75) 94 05/14/20 21:13 146 33 40 05/14/20 21:00 142 40 107/62 (77) 100 05/14/20 20:46 40 05/14/20 20:00 90 05/14/20 20:00 100.0 146 35 110/66 (81) 100 05/14/20 20:00 141 05/14/20 20:00 Mechanical Ventilator Mechanical Ventilator Mechanical Ventilator 05/14/20 19:11 90 05/14/20 19:00 145 38 116/65 (82) 100 05/14/20 18:38 146 41 100 05/14/20 18:28 102.6 05/14/20 18:00 151 26 119/67 (84) 100 05/14/20 17:10 163 41 100 05/14/20 17:00 102.1 147 35 126/83 (97) 94 05/14/20 16:14 147 05/14/20 16:00 Mechanical Ventilator Mechanical Ventilator Mechanical Ventilator 05/14/20 16:00 145 32 122/71 (88) 96 05/14/20 16:00 40 05/14/20 15:24 135 43 40 05/14/20 15:21 132 34 125/71 97 05/14/20 15:00 132 34 125/71 (89) 97 05/14/20 14:44 134 34 143/82 95 05/14/20 14:36 100.6 05/14/20 14:00 134 34 143/82 (102) 95 05/14/20 13:10 133 33 40 05/14/20 13:00 122 33 145/81 (102) 97 05/14/20 12:04 115 05/14/20 12:00 100.5 113 32 142/82 (102) 99 05/14/20 12:00 Mechanical Ventilator Mechanical Ventilator Mechanical Ventilator 05/14/20 12:00 40 05/14/20 11:20 111 31 40 05/14/20 11:00 104 31 137/75 (95) 100 05/14/20 10:00 113 35 128/75 (92) 100 05/14/20 09:10 115 33 40 05/14/20 09:00 101 23 134/79 (97) 100 Labs: Labs Test 05/12/20 12:21 05/12/20 18:22 05/13/20 04:20 05/13/20 05:09 POC Whole Blood Glucose 78 MG/DL (74-106) 105 MG/DL (74-106) White Blood Count 11.2 K/UL (4.8-10.8) Red Blood Count 2.53 M/UL (4.70-6.10) Hemoglobin 8.6 G/DL (14.2-18.0) Hematocrit 27.3 % (42.0-52.0) Mean Corpuscular Volume 108 FL (80-99) Mean Corpuscular Hemoglobin 34.1 PG (27.0-31.0) Mean Corpuscular Hemoglobin Concent 31.6 G/DL (32.0-36.0) Red Cell Distribution Width 20.9 % (11.6-14.8) Platelet Count 36 K/UL (150-450) Mean Platelet Volume 12.2 FL (6.5-10.1) Neutrophils (%) (Auto) % (45.0-75.0) Lymphocytes (%) (Auto) % (20.0-45.0) Monocytes (%) (Auto) % (1.0-10.0) Eosinophils (%) (Auto) % (0.0-3.0) Basophils (%) (Auto) % (0.0-2.0) Sodium Level 137 MMOL/L (136-145) Potassium Level 3.2 MMOL/L (3.5-5.1) Chloride Level 105 MMOL/L (98-107) Carbon Dioxide Level 24 MMOL/L (21-32) Anion Gap 8 mmol/L (5-15) Blood Urea Nitrogen 20 mg/dL (7-18) Creatinine 2.3 MG/DL (0.55-1.30) Estimat Glomerular Filtration Rate 27.6 mL/min (>60) Glucose Level 102 MG/DL (74-106) Calcium Level 7.7 MG/DL (8.5-10.1) Phosphorus Level 2.2 MG/DL (2.5-4.9) Magnesium Level 1.6 MG/DL (1.8-2.4) Total Bilirubin 0.3 MG/DL (0.2-1.0) Aspartate Amino Transf (AST/SGOT) 17 U/L (15-37) Alanine Aminotransferase (ALT/SGPT) < 6 U/L (12-78) Alkaline Phosphatase 102 U/L (46-116) Total Protein 6.0 G/DL (6.4-8.2) Albumin 1.2 G/DL (3.4-5.0) Globulin 4.8 g/dL Albumin/Globulin Ratio 0.2 (1.0-2.7) Test 05/13/20 10:45 05/14/20 04:27 05/14/20 06:55 05/14/20 18:45 Arterial Blood pH 7.357 (7.350-7.450) 7.285 (7.350-7.450) Arterial Blood Partial Pressure CO2 39.3 mmHg (35.0-45.0) 46.6 mmHg (35.0-45.0) Arterial Blood Partial Pressure O2 98.6 mmHg (75.0-100.0) 369.1 mmHg (75.0-100.0) Arterial Blood HCO3 21.6 mmol/L (22.0-26.0) 21.7 mmol/L (22.0-26.0) Arterial Blood Oxygen Saturation 98.0 % (95-100) 99.5 % (95-100) Arterial Blood Base Excess -3.6 (-2-2) -4.8 (-2-2) [place]ano Test Positive Positive White Blood Count 9.5 K/UL (4.8-10.8) Red Blood Count 2.37 M/UL (4.70-6.10) Hemoglobin 8.2 G/DL (14.2-18.0) Hematocrit 26.1 % (42.0-52.0) Mean Corpuscular Volume 110 FL (80-99) Mean Corpuscular Hemoglobin 34.4 PG (27.0-31.0) Mean Corpuscular Hemoglobin Concent 31.3 G/DL (32.0-36.0) Red Cell Distribution Width 21.3 % (11.6-14.8) Platelet Count 29 K/UL (150-450) Mean Platelet Volume 11.5 FL (6.5-10.1) Neutrophils (%) (Auto) % (45.0-75.0) Lymphocytes (%) (Auto) % (20.0-45.0) Monocytes (%) (Auto) % (1.0-10.0) Eosinophils (%) (Auto) % (0.0-3.0) Basophils (%) (Auto) % (0.0-2.0) Differential Total Cells Counted 100 Neutrophils % (Manual) 90 % (45-75) Lymphocytes % (Manual) 3 % (20-45) Monocytes % (Manual) 2 % (1-10) Eosinophils % (Manual) 1 % (0-3) Basophils % (Manual) 0 % (0-2) Band Neutrophils 4 % (0-8) Platelet Estimate Decreased Platelet Morphology Normal Hypochromasia 1+ Anisocytosis 3+ Macrocytosis 1+ Sodium Level 138 MMOL/L (136-145) Potassium Level 3.1 MMOL/L (3.5-5.1) Chloride Level 107 MMOL/L (98-107) Carbon Dioxide Level 24 MMOL/L (21-32) Anion Gap 7 mmol/L (5-15) Blood Urea Nitrogen 25 mg/dL (7-18) Creatinine 2.7 MG/DL (0.55-1.30) Estimat Glomerular Filtration Rate 23.0 mL/min (>60) Glucose Level 109 MG/DL (74-106) Calcium Level 8.0 MG/DL (8.5-10.1) Phosphorus Level 2.2 MG/DL (2.5-4.9) Magnesium Level 1.7 MG/DL (1.8-2.4) Total Bilirubin 0.3 MG/DL (0.2-1.0) Aspartate Amino Transf (AST/SGOT) 24 U/L (15-37) Alanine Aminotransferase (ALT/SGPT) < 6 U/L (12-78) Alkaline Phosphatase 101 U/L (46-116) Total Protein 5.8 G/DL (6.4-8.2) Albumin 1.2 G/DL (3.4-5.0) Globulin 4.6 g/dL Albumin/Globulin Ratio 0.3 (1.0-2.7) POC Whole Blood Glucose 98 MG/DL (74-106) Test 05/14/20 23:36 05/15/20 04:50 05/15/20 06:02 05/15/20 08:16 POC Whole Blood Glucose 94 MG/DL (74-106) White Blood Count 16.7 K/UL (4.8-10.8) Red Blood Count 2.21 M/UL (4.70-6.10) Hemoglobin 7.6 G/DL (14.2-18.0) Hematocrit 24.3 % (42.0-52.0) Mean Corpuscular Volume 110 FL (80-99) Mean Corpuscular Hemoglobin 34.4 PG (27.0-31.0) Mean Corpuscular Hemoglobin Concent 31.3 G/DL (32.0-36.0) Red Cell Distribution Width 20.1 % (11.6-14.8) Platelet Count 22 K/UL (150-450) Mean Platelet Volume 11.4 FL (6.5-10.1) Neutrophils (%) (Auto) % (45.0-75.0) Lymphocytes (%) (Auto) % (20.0-45.0) Monocytes (%) (Auto) % (1.0-10.0) Eosinophils (%) (Auto) % (0.0-3.0) Basophils (%) (Auto) % (0.0-2.0) Differential Total Cells Counted 100 Neutrophils % (Manual) 78 % (45-75) Lymphocytes % (Manual) 1 % (20-45) Monocytes % (Manual) 1 % (1-10) Eosinophils % (Manual) 0 % (0-3) Basophils % (Manual) 1 % (0-2) Metamyelocytes % 1 % (0-0) Band Neutrophils 18 % (0-8) Platelet Estimate Decreased Platelet Morphology Normal Hypochromasia 1+ Anisocytosis 3+ Macrocytosis 1+ Sodium Level 137 MMOL/L (136-145) Potassium Level 3.4 MMOL/L (3.5-5.1) Chloride Level 107 MMOL/L (98-107) Carbon Dioxide Level 21 MMOL/L (21-32) Anion Gap 10 mmol/L (5-15) Blood Urea Nitrogen 34 mg/dL (7-18) Creatinine 3.2 MG/DL (0.55-1.30) Estimat Glomerular Filtration Rate 18.9 mL/min (>60) Glucose Level 98 MG/DL (74-106) Calcium Level 8.5 MG/DL (8.5-10.1) Phosphorus Level 2.5 MG/DL (2.5-4.9) Magnesium Level 1.6 MG/DL (1.8-2.4) Arterial Blood pH 7.256 (7.350-7.450) Arterial Blood Partial Pressure CO2 44.0 mmHg (35.0-45.0) Arterial Blood Partial Pressure O2 96.6 mmHg (75.0-100.0) Arterial Blood HCO3 19.1 mmol/L (22.0-26.0) Arterial Blood Oxygen Saturation 96.2 % (95-100) Arterial Blood Base Excess -7.5 (-2-2) U[place]ano Test Positive Objective: WDWN NAD chronically ill reduced breath sounds with scattered rhonchi [id number] tachy without MRG hypoactive GT no CCE significant contractures nonfocal obtunded trach in place Vent skin noted Micro: Microbiology Date/Time Source Procedure Growth Status 05/12/20 12:00 Sputum Gram Stain - Final Resulted 05/12/20 12:00 Sputum Culture - Preliminary Gram Negative Jordin Resulted Accucheck: 106 Mansoor Martinez MD May 15, 2020 08:41
[2020-05-15] MEDS: levETIRAcetam 750 MG in D5W 95 ML IV SCH ×2 (09:24→20:43)
[2020-05-15] MEDS: Pantoprazole Inj IVP SCH ×2 (09:24→20:40)
--- NOTE | 2020-05-15 09:58 | General Progress Note ---
Subjective Allergies: Coded Allergies: No Known Allergies (Unverified , 02/23/12) Subjective Above noted seen in ICU doing poorly tachycardia and hypotension on TPN Objective Last 24 Hour Vital Signs Date Time Temp Pulse Resp B/P (MAP) Pulse Ox O2 Delivery O2 Flow Rate FiO2 05/15/20 08:33 118 37 50 05/15/20 07:30 120 39 107/60 (76) 99 05/15/20 07:16 116 33 50 05/15/20 07:00 118 34 97/51 (66) 99 05/15/20 06:00 118 35 104/60 (75) 98 05/15/20 05:30 117 41 100/50 (67) 98 05/15/20 05:27 121 36 50 05/15/20 05:00 123 37 107/73 (84) 99 05/15/20 04:30 122 44 83/47 (59) 98 05/15/20 04:00 99.6 119 34 94/72 (79) 98 05/15/20 04:00 118 05/15/20 04:00 60 05/15/20 04:00 Mechanical Ventilator Mechanical Ventilator Mechanical Ventilator 05/15/20 03:40 121 38 60 05/15/20 03:30 118 33 93/75 (81) 100 05/15/20 03:00 123 34 85/48 (60) 100 05/15/20 02:30 116 35 94/56 (69) 100 05/15/20 02:00 129 38 96/51 (66) 99 05/15/20 01:32 123 39 50 05/15/20 01:30 120 37 97/54 (68) 97 05/15/20 01:00 132 39 103/55 (71) 94 05/15/20 00:00 99.5 131 35 93/52 (66) 94 05/15/20 00:00 Mechanical Ventilator Mechanical Ventilator Mechanical Ventilator 05/15/20 00:00 138 05/15/20 00:00 50 05/14/20 23:02 138 32 50 05/14/20 23:00 138 33 95/64 (74) 95 05/14/20 22:00 139 33 100/63 (75) 94 05/14/20 21:13 146 33 40 05/14/20 21:00 142 40 107/62 (77) 100 11/15/20 20:46 40 05/14/20 20:00 90 05/14/20 20:00 100.0 146 35 110/66 (81) 100 05/14/20 20:00 141 05/14/20 20:00 Mechanical Ventilator Mechanical Ventilator Mechanical Ventilator 05/14/20 19:11 90 05/14/20 19:00 145 38 116/65 (82) 100 05/14/20 18:38 146 41 100 05/14/20 18:28 102.6 05/14/20 18:00 151 26 119/67 (84) 100 05/14/20 17:10 163 41 100 05/14/20 17:00 102.1 147 35 126/83 (97) 94 05/14/20 16:14 147 05/14/20 16:00 Mechanical Ventilator Mechanical Ventilator Mechanical Ventilator 05/14/20 16:00 145 32 122/71 (88) 96 05/14/20 16:00 40 05/14/20 15:24 135 43 40 05/14/20 15:21 132 34 125/71 97 05/14/20 15:00 132 34 125/71 (89) 97 05/14/20 14:44 134 34 143/82 95 05/14/20 14:36 100.6 05/14/20 14:00 134 34 143/82 (102) 95 05/14/20 13:10 133 33 40 05/14/20 13:00 122 33 145/81 (102) 97 05/14/20 12:04 115 05/14/20 12:00 100.5 113 32 142/82 (102) 99 05/14/20 12:00 Mechanical Ventilator Mechanical Ventilator Mechanical Ventilator 05/14/20 12:00 40 05/14/20 11:20 111 31 40 05/14/20 11:00 104 31 137/75 (95) 100 05/14/20 10:00 113 35 128/75 (92) 100 Intake and Output 05/14/20 05/15/20 19:00 07:00 Intake Total 1032.7 ml 747.61 ml Output Total 210 ml 195 ml Balance 822.7 ml 552.61 ml IV Total 1032.7 ml 747.61 ml Output Urine Total 210 ml 95 ml Stool Total 100 ml Laboratory Tests 05/14/20 18:45: Arterial Blood pH 7.285L, Arterial Blood Partial Pressure CO2 46.6H, Arterial Blood Partial Pressure O2 369.1H, Arterial Blood HCO3 21.7L, Arterial Blood Oxygen Saturation 99.5, Arterial Blood Base Excess -4.8L, U[place]ano Test Positive 05/14/20 23:36: POC Whole Blood Glucose 94 05/15/20 04:50: White Blood Count 16.7#H, Red Blood Count 2.21L, Hemoglobin 7.6L, Hematocrit 24.3L, Mean Corpuscular Volume 110H, Mean Corpuscular Hemoglobin 34.4H, Mean Corpuscular Hemoglobin Concent 31.3L, Red Cell Distribution Width 20.1H, Platelet Count 22L, Mean Platelet Volume 11.4H, Neutrophils (%) (Auto) , Lymphocytes (%) (Auto) , Monocytes (%) (Auto) , Eosinophils (%) (Auto) , Basophils (%) (Auto) , Differential Total Cells Counted 100, Neutrophils % (Manual) 78H, Lymphocytes % (Manual) 1L, Monocytes % (Manual) 1, Eosinophils % (Manual) 0, Basophils % (Manual) 1, Metamyelocytes % 1H, Band Neutrophils 18H, Platelet Estimate DecreasedL, Platelet Morphology Normal, Hypochromasia 1+, Anisocytosis 3+, Macrocytosis 1+, Sodium Level 137, Potassium Level 3.4L, Chloride Level 107, Carbon Dioxide Level 21, Anion Gap 10, Blood Urea Nitrogen 34H, Creatinine 3.2H, Estimat Glomerular Filtration Rate 18.9, Glucose Level 98, Calcium Level 8.5, Phosphorus Level 2.5, Magnesium Level 1.6L 05/15/20 06:02: POC Whole Blood Glucose [Pending] 05/15/20 08:16: Arterial Blood pH 7.256L, Arterial Blood Partial Pressure CO2 44.0, Arterial Blood Partial Pressure O2 96.6, Arterial Blood HCO3 19.1L, Arterial Blood Oxygen Saturation 96.2, Arterial Blood Base Excess -7.5L, [place]ano Test Positive Height (Feet): 5 Height (Inches): 7.00 Weight (Pounds): 150 Objective NCAT (+) trach Coarse BS RR, Tachy abd (+) GT, distended (++) contracted (+) edema Assessment/Plan Status: stable, not improved Assessment/Plan: Assessment - Upper GI bleed - resolved - hypotensive / Tachy - abd distention / ileus - h/o gastric ulcer - anemia - renal failure - resp failure - contractures - Poor prognosis Recommendations - Pressors / drips / supportive care - TPN - rectal tube decompression - NGT --> LIS - monitor H&H - IV PPI - transfuse Clive Barajas MD May 15, 2020 09:58
--- NOTE | 2020-05-15 12:08 | Infectious Diseases Prog Note ---
"Assessment/Plan Assessment/Plan antibiotics : meropenem A 1. klebsiella pneumonia 2. MRSA | coag neg staph sepsis s/p rx 3. renal failure 4. respiratory failure 5. seizures 6. CVA 7. CHF 8. leucocytosis increased 9. thrombocytopenia P 1. d/c meropenem 2. start inhaled colistin 3. blood culture 4. will follow up cultures Subjective ROS Limited/Unobtainable: Yes Allergies: Coded Allergies: No Known Allergies (Unverified , 02/23/12) Objective Last 24 Hour Vital Signs Date Time Temp Pulse Resp B/P (MAP) Pulse Ox O2 Delivery O2 Flow Rate FiO2 05/15/20 10:52 114 32 50 05/15/20 10:00 110 24 81/52 (62) 99 05/15/20 09:32 115 25 103/56 (72) 100 05/15/20 09:30 115 30 87/54 (65) 98 05/15/20 09:14 116 33 94/62 (73) 99 05/15/20 09:00 120 31 87/56 (66) 99 05/15/20 08:33 118 37 50 05/15/20 08:30 120 36 93/58 (70) 99 05/15/20 08:00 99.1 123 36 96/58 (71) 99 05/15/20 08:00 Mechanical Ventilator Mechanical Ventilator Mechanical Ventilator 05/15/20 08:00 50 05/15/20 08:00 120 05/15/20 07:30 120 39 107/60 (76) 99 05/15/20 07:16 116 33 50 05/15/20 07:00 118 34 97/51 (66) 99 05/15/20 06:00 118 35 104/60 (75) 98 05/15/20 05:30 117 41 100/50 (67) 98 05/15/20 05:27 121 36 50 05/15/20 05:00 123 37 107/73 (84) 99 05/15/20 04:30 122 44 83/47 (59) 98 05/15/20 04:00 99.6 119 34 94/72 (79) 98 05/15/20 04:00 118 05/15/20 04:00 60 05/15/20 04:00 Mechanical Ventilator Mechanical Ventilator Mechanical Ventilator 05/15/20 03:40 121 38 60 05/15/20 03:30 118 33 93/75 (81) 100 05/15/20 03:00 123 34 85/48 (60) 100 05/15/20 02:30 116 35 94/56 (69) 100 05/15/20 02:00 129 38 96/51 (66) 99 05/15/20 01:32 123 39 50 05/15/20 01:30 120 37 97/54 (68) 97 05/15/20 01:00 132 39 103/55 (71) 94 05/15/20 00:00 99.5 131 35 93/52 (66) 94 05/15/20 00:00 Mechanical Ventilator Mechanical Ventilator Mechanical Ventilator 05/15/20 00:00 138 05/15/20 00:00 50 05/14/20 23:02 138 32 50 05/14/20 23:00 138 33 95/64 (74) 95 05/14/20 22:00 139 33 100/63 (75) 94 05/14/20 21:13 146 33 40 05/14/20 21:00 142 40 107/62 (77) 100 05/14/20 20:46 40 05/14/20 20:00 90 05/14/20 20:00 100.0 146 35 110/66 (81) 100 05/14/20 20:00 141 05/14/20 20:00 Mechanical Ventilator Mechanical Ventilator Mechanical Ventilator 05/14/20 19:11 90 05/14/20 19:00 145 38 116/65 (82) 100 05/14/20 18:38 146 41 100 05/14/20 18:28 102.6 05/14/20 18:00 151 26 119/67 (84) 100 05/14/20 17:10 163 41 100 05/14/20 17:00 102.1 147 35 126/83 (97) 94 05/14/20 16:14 147 05/14/20 16:00 Mechanical Ventilator Mechanical Ventilator Mechanical Ventilator 05/14/20 16:00 145 32 122/71 (88) 96 05/14/20 16:00 40 05/14/20 15:24 135 43 40 05/14/20 15:21 132 34 125/71 97 05/14/20 15:00 132 34 125/71 (89) 97 05/14/20 14:44 134 34 143/82 95 05/14/20 14:36 100.6 11/15/20 14:00 134 34 143/82 (102) 95 05/14/20 13:10 133 33 40 05/14/20 13:00 122 33 145/81 (102) 97 Height (Feet): 5 Height (Inches): 7.00 Weight (Pounds): 150 HEENT: status post trach Respiratory/Chest: lungs clear Cardiovascular: normal rate, regular rhythm, no gallop/murmur Abdomen: soft, non tender, other - GT Extremities: other - + edema, right IJ catheter Laboratory Tests Test 05/14/20 18:45 05/14/20 23:36 05/15/20 04:50 05/15/20 06:02 Arterial Blood pH 7.285 (7.350-7.450) Arterial Blood Partial Pressure CO2 46.6 mmHg (35.0-45.0) H Arterial Blood Partial Pressure O2 369.1 mmHg (75.0-100.0) H Arterial Blood HCO3 21.7 mmol/L (22.0-26.0) L Arterial Blood Oxygen Saturation 99.5 % (95-100) Arterial Blood Base Excess -4.8 (-2-2) L [place] Test Positive POC Whole Blood Glucose 94 MG/DL (74-106) Pending White Blood Count 16.7 K/UL (4.8-10.8) #H Red Blood Count 2.21 M/UL (4.70-6.10) L Hemoglobin 7.6 G/DL (14.2-18.0) L Hematocrit 24.3 % (42.0-52.0) L Mean Corpuscular Volume 110 FL (80-99) H Mean Corpuscular Hemoglobin 34.4 PG (27.0-31.0) H Mean Corpuscular Hemoglobin Concent 31.3 G/DL (32.0-36.0) L Red Cell Distribution Width 20.1 % (11.6-14.8) H Platelet Count 22 K/UL (150-450) L Mean Platelet Volume 11.4 FL (6.5-10.1) H Neutrophils (%) (Auto) % (45.0-75.0) Lymphocytes (%) (Auto) % (20.0-45.0) Monocytes (%) (Auto) % (1.0-10.0) Eosinophils (%) (Auto) % (0.0-3.0) Basophils (%) (Auto) % (0.0-2.0) Differential Total Cells Counted 100 Neutrophils % (Manual) 78 % (45-75) H Lymphocytes % (Manual) 1 % (20-45) L Monocytes % (Manual) 1 % (1-10) Eosinophils % (Manual) 0 % (0-3) Basophils % (Manual) 1 % (0-2) Metamyelocytes % 1 % (0-0) H Band Neutrophils 18 % (0-8) H Platelet Estimate Decreased L Platelet Morphology Normal Hypochromasia 1+ Anisocytosis 3+ Macrocytosis 1+ Sodium Level 137 MMOL/L (136-145) Potassium Level 3.4 MMOL/L (3.5-5.1) L Chloride Level 107 MMOL/L (98-107) Carbon Dioxide Level 21 MMOL/L (21-32) Anion Gap 10 mmol/L (5-15) Blood Urea Nitrogen 34 mg/dL (7-18) H Creatinine 3.2 MG/DL (0.55-1.30) H Estimat Glomerular Filtration Rate 18.9 mL/min (>60) Glucose Level 98 MG/DL (74-106) Calcium Level 8.5 MG/DL (8.5-10.1) Phosphorus Level 2.5 MG/DL (2.5-4.9) Magnesium Level 1.6 MG/DL (1.8-2.4) L Test 05/15/20 08:16 Arterial Blood pH 7.256 (7.350-7.450) Arterial Blood Partial Pressure CO2 44.0 mmHg (35.0-45.0) Arterial Blood Partial Pressure O2 96.6 mmHg (75.0-100.0) Arterial Blood HCO3 19.1 mmol/L (22.0-26.0) L Arterial Blood Oxygen Saturation 96.2 % (95-100) Arterial Blood Base Excess -7.5 (-2-2) L [place] Test Positive Current Medications Medications (Trade) Dose Ordered Sig/Lanny Route PRN Reason Start Time Stop Time Status Last Admin Dose Admin Acetaminophen (Tylenol) 650 mg Q4H PRN NG fever pain 05/03/20 21:30 06/02/20 21:29 05/14/20 17:45 Albumin Human 100 ml @ 200 mls/hr PRN PRN IV sbp<90 during hd 05/15/20 08:00 05/15/20 23:59 Chlorhexidine Gluconate (Kayla-Hex 2%) 1 applic DAILY@2000 TOPIC 05/04/20 20:00 08/02/20 19:59 05/14/20 19:50 Clonidine HCl (Catapres Tab) 0.1 mg Q4H PRN GT SBP above 150 05/03/20 21:30 08/01/20 21:29 Dextrose 1,000 ml @ 0 mls/hr Q24H PRN IV PN interrupted or unavailable 05/12/20 12:15 06/11/20 12:14 Dextrose (Dextrose 50%) 25 ml Q30M PRN IV Hypoglycemia 05/12/20 11:30 08/10/20 11:29 Dextrose (Dextrose 50%) 50 ml Q30M PRN IV Hypoglycemia 05/12/20 11:30 08/10/20 11:29 Diltiazem HCl 125 ml @ 1 mls/hr Q24H IVPB 05/14/20 19:15 05/15/20 19:14 05/14/20 19:24 Epoetin Asaf (Epoetin Asaf-EPBX(NON ESRD)) 10,000 unit FRI-FRI-FRI SUBQ 05/05/20 21:00 08/03/20 20:59 05/12/20 20:27 Fat Emulsion Intravenous 192 ml/Amino Acids/ Electrolytes/ Dextrose 1,200 ml @ 50 mls/hr Q24H IV 05/12/20 20:00 08/10/20 19:59 05/14/20 20:01 Heparin Sodium (Porcine) (Heparin Sod 1000 units/ml 10ml) 500 unit ONCE PRN IV HD 05/15/20 08:00 05/15/20 23:59 Levetiracetam 750 mg/Dextrose 102.5 ml @ 440 mls/hr Q12HR IV 05/08/20 21:00 06/07/20 20:59 05/15/20 09:24 Levothyroxine Sodium (Synthroid) 100 mcg DAILY IV 05/05/20 09:00 06/03/20 10:59 05/15/20 09:24 Lorazepam (Ativan 2mg/ml 1ml) 1 mg Q4H PRN IV For Seizures 05/14/20 14:30 05/21/20 14:29 05/14/20 14:44 Meropenem 500 mg/ Sodium Chloride 55 ml @ 110 mls/hr Q24H IVPB 05/13/20 21:00 05/18/20 20:59 05/14/20 21:26 Pantoprazole (Protonix) 40 mg EVERY 12 HOURS IVP 05/04/20 21:00 06/03/20 20:59 05/15/20 09:24 Phytonadione (Vitamin K) 10 mg QWEEK SUBQ 05/12/20 21:00 08/10/20 20:59 05/12/20 20:13 Isaak Hair MD May 15, 2020 12:08"
--- NOTE | 2020-05-15 13:11 | Nephrology Progress Note ---
Assessment/Plan Plan Septic Shock MOF with Oliguric ARF. HD dependent. Couldn't be dialyzed today due to hypotension. Try tomorrow. HD changed to TTS TPN started. Subjective Subjective Obtunded. Objective Objective Last 24 Hour Vital Signs Date Time Temp Pulse Resp B/P (MAP) Pulse Ox O2 Delivery O2 Flow Rate FiO2 05/15/20 10:52 114 32 50 05/15/20 10:00 110 24 81/52 (62) 99 05/15/20 09:32 115 25 103/56 (72) 100 05/15/20 09:30 115 30 87/54 (65) 98 05/15/20 09:14 116 33 94/62 (73) 99 05/15/20 09:00 120 31 87/56 (66) 99 05/15/20 08:33 118 37 50 05/15/20 08:30 120 36 93/58 (70) 99 05/15/20 08:00 99.1 123 36 96/58 (71) 99 05/15/20 08:00 Mechanical Ventilator Mechanical Ventilator Mechanical Ventilator 05/15/20 08:00 50 05/15/20 08:00 120 05/15/20 07:30 120 39 107/60 (76) 99 05/15/20 07:16 116 33 50 05/15/20 07:00 118 34 97/51 (66) 99 05/15/20 06:00 118 35 104/60 (75) 98 05/15/20 05:30 117 41 100/50 (67) 98 05/15/20 05:27 121 36 50 05/15/20 05:00 123 37 107/73 (84) 99 05/15/20 04:30 122 44 83/47 (59) 98 05/15/20 04:00 99.6 119 34 94/72 (79) 98 05/15/20 04:00 118 05/15/20 04:00 60 05/15/20 04:00 Mechanical Ventilator Mechanical Ventilator Mechanical Ventilator 05/15/20 03:40 121 38 60 05/15/20 03:30 118 33 93/75 (81) 100 05/15/20 03:00 123 34 85/48 (60) 100 05/15/20 02:30 116 35 94/56 (69) 100 05/15/20 02:00 129 38 96/51 (66) 99 05/15/20 01:32 123 39 50 05/15/20 01:30 120 37 97/54 (68) 97 05/15/20 01:00 132 39 103/55 (71) 94 05/15/20 00:00 99.5 131 35 93/52 (66) 94 05/15/20 00:00 Mechanical Ventilator Mechanical Ventilator Mechanical Ventilator 05/15/20 00:00 138 05/15/20 00:00 50 05/14/20 23:02 138 32 50 05/14/20 23:00 138 33 95/64 (74) 95 05/14/20 22:00 139 33 100/63 (75) 94 05/14/20 21:13 146 33 40 05/14/20 21:00 142 40 107/62 (77) 100 05/14/20 20:46 40 05/14/20 20:00 90 05/14/20 20:00 100.0 146 35 110/66 (81) 100 05/14/20 20:00 141 05/14/20 20:00 Mechanical Ventilator Mechanical Ventilator Mechanical Ventilator 05/14/20 19:11 90 05/14/20 19:00 145 38 116/65 (82) 100 05/14/20 18:38 146 41 100 05/14/20 18:28 102.6 05/14/20 18:00 151 26 119/67 (84) 100 05/14/20 17:10 163 41 100 05/14/20 17:00 102.1 147 35 126/83 (97) 94 05/14/20 16:14 147 05/14/20 16:00 Mechanical Ventilator Mechanical Ventilator Mechanical Ventilator 05/14/20 16:00 145 32 122/71 (88) 96 05/14/20 16:00 40 05/14/20 15:24 135 43 40 05/14/20 15:21 132 34 125/71 97 05/14/20 15:00 132 34 125/71 (89) 97 05/14/20 14:44 134 34 143/82 95 05/14/20 14:36 100.6 05/14/20 14:00 134 34 143/82 (102) 95 Intake and Output 05/14/20 05/15/20 19:00 07:00 Intake Total 1032.7 ml 747.61 ml Output Total 210 ml 195 ml Balance 822.7 ml 552.61 ml IV Total 1032.7 ml 747.61 ml Output Urine Total 210 ml 95 ml Stool Total 100 ml Laboratory Tests 05/14/20 18:45: Arterial Blood pH 7.285L, Arterial Blood Partial Pressure CO2 46.6H, Arterial Blood Partial Pressure O2 369.1H, Arterial Blood HCO3 21.7L, Arterial Blood Oxygen Saturation 99.5, Arterial Blood Base Excess -4.8L, Urbano Test Positive 05/14/20 23:36: POC Whole Blood Glucose 94 05/15/20 04:50: White Blood Count 16.7#H, Red Blood Count 2.21L, Hemoglobin 7.6L, Hematocrit 24.3L, Mean Corpuscular Volume 110H, Mean Corpuscular Hemoglobin 34.4H, Mean Corpuscular Hemoglobin Concent 31.3L, Red Cell Distribution Width 20.1H, Platelet Count 22L, Mean Platelet Volume 11.4H, Neutrophils (%) (Auto) , Lymphocytes (%) (Auto) , Monocytes (%) (Auto) , Eosinophils (%) (Auto) , Basophils (%) (Auto) , Differential Total Cells Counted 100, Neutrophils % (Manual) 78H, Lymphocytes % (Manual) 1L, Monocytes % (Manual) 1, Eosinophils % (Manual) 0, Basophils % (Manual) 1, Metamyelocytes % 1H, Band Neutrophils 18H, Platelet Estimate DecreasedL, Platelet Morphology Normal, Hypochromasia 1+, Anisocytosis 3+, Macrocytosis 1+, Sodium Level 137, Potassium Level 3.4L, Chloride Level 107, Carbon Dioxide Level 21, Anion Gap 10, Blood Urea Nitrogen 34H, Creatinine 3.2H, Estimat Glomerular Filtration Rate 18.9, Glucose Level 98, Calcium Level 8.5, Phosphorus Level 2.5, Magnesium Level 1.6L 05/15/20 06:02: POC Whole Blood Glucose [Pending] 05/15/20 08:16: Arterial Blood pH 7.256L, Arterial Blood Partial Pressure CO2 44.0, Arterial Blood Partial Pressure O2 96.6, Arterial Blood HCO3 19.1L, Arterial Blood Oxygen Saturation 96.2, Arterial Blood Base Excess -7.5L, U[place]ano Test Positive Height (Feet): 5 Height (Inches): 7.00 Weight (Pounds): 150 Objective On 6 mcgm/min Levophed CV RR Lungs B ronchi Trach clean Abd Distended!!!Diminished BS. E +2 edema. Femoral Mahurkar. Neuro obtunded. Has twitches.Nonfocal. Ayanna Maldonado MD May 15, 2020 13:11
--- NOTE | 2020-05-15 16:13 | General Progress Note ---
Subjective ROS Limited/Unobtainable: Yes Constitutional: Reports: malaise, weakness HEENT: Reports: no symptoms Cardiovascular: Reports: no symptoms Respiratory: Reports: shortness of breath, sputum Gastrointestinal/Abdominal: Reports: difficulty swallowing Genitourinary: Reports: no symptoms Neurologic/Psychiatric: Reports: pre-existing deficit, seizure Endocrine: Reports: no symptoms Hematologic/Lymphatic: Reports: anemia Allergies: Coded Allergies: No Known Allergies (Unverified , 02/23/12) All Systems: reviewed and negative except above Subjective +SVT. on cardizem drip. stable on the vent. off pressors. no bleeding. poorly responsive. no szs. +generalized edema. poor uop. wbc trending down. labs reviewed Objective Last 24 Hour Vital Signs Date Time Temp Pulse Resp B/P (MAP) Pulse Ox O2 Delivery O2 Flow Rate FiO2 05/15/20 15:18 127 42 50 05/15/20 14:30 133 37 95/55 (68) 95 05/15/20 14:00 133 40 93/51 (65) 95 05/15/20 13:30 133 40 99/50 (66) 95 05/15/20 13:14 115 31 50 05/15/20 13:00 132 39 96/57 (70) 97 05/15/20 12:30 131 35 103/54 (70) 98 05/15/20 12:00 99.4 119 30 99/54 (69) 98 05/15/20 12:00 96 05/15/20 11:30 116 33 101/56 (71) 99 05/15/20 11:00 113 30 86/62 (70) 100 05/15/20 10:52 114 32 50 05/15/20 10:00 110 24 81/52 (62) 99 05/15/20 09:32 115 25 103/56 (72) 100 05/15/20 09:30 115 30 87/54 (65) 98 05/15/20 09:14 116 33 94/62 (73) 99 05/15/20 09:00 120 31 87/56 (66) 99 05/15/20 08:33 118 37 50 05/15/20 08:30 120 36 93/58 (70) 99 05/15/20 08:00 99.1 123 36 96/58 (71) 99 05/15/20 08:00 Mechanical Ventilator Mechanical Ventilator Mechanical Ventilator 05/15/20 08:00 50 05/15/20 08:00 120 05/15/20 07:30 120 39 107/60 (76) 99 05/15/20 07:16 116 33 50 05/15/20 07:00 118 34 97/51 (66) 99 05/15/20 06:00 118 35 104/60 (75) 98 05/15/20 05:30 117 41 100/50 (67) 98 05/15/20 05:27 121 36 50 05/15/20 05:00 123 37 107/73 (84) 99 05/15/20 04:30 122 44 83/47 (59) 98 05/15/20 04:00 99.6 119 34 94/72 (79) 98 05/15/20 04:00 118 05/15/20 04:00 60 05/15/20 04:00 Mechanical Ventilator Mechanical Ventilator Mechanical Ventilator 05/15/20 03:40 121 38 60 05/15/20 03:30 118 33 93/75 (81) 100 05/15/20 03:00 123 34 85/48 (60) 100 05/15/20 02:30 116 35 94/56 (69) 100 05/15/20 02:00 129 38 96/51 (66) 99 05/15/20 01:32 123 39 50 05/15/20 01:30 120 37 97/54 (68) 97 05/15/20 01:00 132 39 103/55 (71) 94 05/15/20 00:00 99.5 131 35 93/52 (66) 94 05/15/20 00:00 Mechanical Ventilator Mechanical Ventilator Mechanical Ventilator 05/15/20 00:00 138 05/15/20 00:00 50 05/14/20 23:02 138 32 50 05/14/20 23:00 138 33 95/64 (74) 95 05/14/20 22:00 139 33 100/63 (75) 94 05/14/20 21:13 146 33 40 05/14/20 21:00 142 40 107/62 (77) 100 05/14/20 20:46 40 05/14/20 20:00 90 05/14/20 20:00 100.0 146 35 110/66 (81) 100 05/14/20 20:00 141 05/14/20 20:00 Mechanical Ventilator Mechanical Ventilator Mechanical Ventilator 05/14/20 19:11 90 05/14/20 19:00 145 38 116/65 (82) 100 05/14/20 18:38 146 41 100 05/14/20 18:28 102.6 05/14/20 18:00 151 26 119/67 (84) 100 05/14/20 17:10 163 41 100 05/14/20 17:00 102.1 147 35 126/83 (97) 94 05/14/20 16:14 147 Intake and Output 05/14/20 05/15/20 19:00 07:00 Intake Total 1032.7 ml 747.61 ml Output Total 210 ml 195 ml Balance 822.7 ml 552.61 ml IV Total 1032.7 ml 747.61 ml Output Urine Total 210 ml 95 ml Stool Total 100 ml Laboratory Tests 05/14/20 18:45: Arterial Blood pH 7.285L, Arterial Blood Partial Pressure CO2 46.6H, Arterial Blood Partial Pressure O2 369.1H, Arterial Blood HCO3 21.7L, Arterial Blood Oxygen Saturation 99.5, Arterial Blood Base Excess -4.8L, [place] Test Positive 05/14/20 23:36: POC Whole Blood Glucose 94 05/15/20 04:50: White Blood Count 16.7#H, Red Blood Count 2.21L, Hemoglobin 7.6L, Hematocrit 24 .3L, Mean Corpuscular Volume 110H, Mean Corpuscular Hemoglobin 34.4H, Mean Corpuscular Hemoglobin Concent 31.3L, Red Cell Distribution Width 20.1H, Gabriel telet Count 22L, Mean Platelet Volume 11.4H, Neutrophils (%) (Auto) , Lymphocytes (%) (Auto) , Monocytes (%) (Auto) , Eosinophils (%) (Auto) , Basophils (%) (Auto) , Differential Total Cells Counted 100, Neutrophils % (Manual) 78H, Lymphocytes % (Manual) 1L, Monocytes % (Manual) 1, Eosinophils % (Manual) 0, Basophils % (Manual) 1, Metamyelocytes % 1H, Band Neutrophils 18H, Platelet Estimate DecreasedL, Platelet Morphology Normal, Hypochromasia 1+, Anisocytosis 3+, Macrocytosis 1+, Sodium Level 137, Potassium Level 3.4L, Chloride Level 107, Carbon Dioxide Level 21, Anion Gap 10, Blood Urea Nitrogen 34H, Creatinine 3.2H, Estimat Glomerular Filtration Rate 18.9, Glucose Level 98, Calcium Level 8.5, Phosphorus Level 2.5, Magnesium Level 1.6L 05/15/20 06:02: POC Whole Blood Glucose [Pending] 05/15/20 08:16: Arterial Blood pH 7.256L, Arterial Blood Partial Pressure CO2 44.0, Arterial Blood Partial Pressure O2 96.6, Arterial Blood HCO3 19.1L, Arterial Blood Oxygen Saturation 96.2, Arterial Blood Base Excess -7.5L, [place] Test Positive 05/15/20 14:01: POC Whole Blood Glucose 100 Height (Feet): 5 Height (Inches): 7.00 Weight (Pounds): 150 Objective General Appearance: WD/WN, lethargic, confused EENT: PERRL/EOMI, normal ENT inspection Neck: normal alignment, supple Cardiovascular: normal rate Respiratory/Chest: chest wall non-tender, lungs clear, crackles/rales, rhonchi - bilaterally Abdomen: normal bowel sounds, non tender, soft, no organomegaly Edema: no edema noted Arm (L), no edema noted Arm (R) Neurologic: disoriented, unresponsive, aphasia Skin: normal pigmentation Assessment/Plan Problem List: (1) Dehydration ICD Codes: E86.0 - Dehydration SNOMED: 34632543 (2) Ventilator associated pneumonia ICD Codes: J95.851 - Ventilator associated pneumonia SNOMED: 846446465, 78677719 (3) AUDREY (acute kidney injury) ICD Codes: N17.9 - Acute kidney failure, unspecified SNOMED: 9454489, 16328486 (4) Anemia ICD Codes: D64.9 - Anemia, unspecified SNOMED: 032308039, 431247967 (5) HCAP (healthcare-associated pneumonia) ICD Codes: J18.9 - Pneumonia, unspecified organism SNOMED: 428023188, 458098977 (6) CKD (chronic kidney disease) stage 3, GFR 30-59 ml/min ICD Codes: N18.3 - Chronic kidney disease, stage 3 (moderate) SNOMED: 575404865 (7) GIB (gastrointestinal bleeding) ICD Codes: K92.2 - Gastrointestinal hemorrhage, unspecified SNOMED: 92096930 (8) ARF (acute renal failure) ICD Codes: N17.9 - Acute kidney failure, unspecified SNOMED: 29285610, 029456818 (9) Pneumonia ICD Codes: J18.9 - Pneumonia, unspecified organism SNOMED: 716835840 (10) UTI (urinary tract infection) ICD Codes: N39.0 - Urinary tract infection, site not specified SNOMED: 04681040, 906065926 (11) Sepsis ICD Codes: A41.9 - Sepsis, unspecified organism SNOMED: 35119474 (12) Respiratory failure ICD Codes: J96.90 - Respiratory failure, unspecified, unspecified whether with hypoxia or hypercapnia SNOMED: 072685561 Status: stable, not improved Assessment/Plan: HD per renal IV abx per ID vent support resp rx monitor cxr monitor abg. adjust vent monitor h/h transfuse as needed wound care turn q2 dvt/stress ulcer prophylaxis tube feeds monitor residuals cont keppra for sz prn ativan for szs critical and guarded Jimi Tellez MD May 15, 2020 16:13
[2020-05-15] MEDS: Acetaminophen 650mg/20.3ml NG PRN (18:14)
--- NOTE | 2020-05-15 19:17 | Surgery Progress Note ---
Surgery Progress Note Subjective Procedure Performed Left femoral temporary hemodialysis catheter insertion Symptoms: worse Additional Comments leukocytosis plt noted ill appearing on vent arrhythmia Objective Last 24 Hour Vital Signs Date Time Temp Pulse Resp B/P (MAP) Pulse Ox O2 Delivery O2 Flow Rate FiO2 05/15/20 18:00 100.9 132 38 82/39 (53) 93 05/15/20 17:58 132 38 85/46 (59) 93 05/15/20 17:49 131 40 85/48 (60) 93 05/15/20 17:48 131 37 84/49 (61) 93 05/15/20 17:45 130 38 93 05/15/20 17:30 130 40 83/44 (57) 94 05/15/20 17:20 129 45 88/48 (61) 95 05/15/20 17:15 128 38 95 05/15/20 17:00 131 40 83/48 (60) 96 05/15/20 16:45 127 36 96 05/15/20 16:43 133 49 50 05/15/20 16:30 100.0 132 37 83/53 (63) 97 05/15/20 16:15 134 39 97 05/15/20 16:00 50 05/15/20 16:00 133 05/15/20 16:00 Mechanical Ventilator Mechanical Ventilator Mechanical Ventilator 05/15/20 16:00 133 38 94/51 (65) 97 05/15/20 15:45 133 40 96 05/15/20 15:30 126 35 86/50 (62) 96 05/15/20 15:18 127 42 50 05/15/20 15:15 130 42 97 05/15/20 15:09 132 40 95/50 (65) 95 05/15/20 15:06 133 40 88/42 (57) 95 05/15/20 15:04 132 36 88/50 (63) 95 05/15/20 15:00 132 37 86/46 (59) 94 05/15/20 14:30 133 37 95/55 (68) 95 05/15/20 14:00 133 40 93/51 (65) 95 05/15/20 13:30 133 40 99/50 (66) 95 05/15/20 13:14 115 31 50 05/15/20 13:00 132 39 96/57 (70) 97 05/15/20 12:30 131 35 103/54 (70) 98 05/15/20 12:00 99.4 119 30 99/54 (69) 98 05/15/20 12:00 96 05/15/20 12:00 Mechanical Ventilator Mechanical Ventilator Mechanical Ventilator 05/15/20 12:00 50 05/15/20 11:30 116 33 101/56 (71) 99 05/15/20 11:00 113 30 86/62 (70) 100 05/15/20 10:52 114 32 50 05/15/20 10:00 110 24 81/52 (62) 99 05/15/20 09:32 115 25 103/56 (72) 100 05/15/20 09:30 115 30 87/54 (65) 98 05/15/20 09:14 116 33 94/62 (73) 99 05/15/20 09:00 120 31 87/56 (66) 99 05/15/20 08:33 118 37 50 05/15/20 08:30 120 36 93/58 (70) 99 05/15/20 08:00 99.1 123 36 96/58 (71) 99 05/15/20 08:00 Mechanical Ventilator Mechanical Ventilator Mechanical Ventilator 05/15/20 08:00 50 05/15/20 08:00 120 05/15/20 07:30 120 39 107/60 (76) 99 05/15/20 07:16 116 33 50 05/15/20 07:00 118 34 97/51 (66) 99 05/15/20 06:00 118 35 104/60 (75) 98 05/15/20 05:30 117 41 100/50 (67) 98 05/15/20 05:27 121 36 50 05/15/20 05:00 123 37 107/73 (84) 99 05/15/20 04:30 122 44 83/47 (59) 98 05/15/20 04:00 99.6 119 34 94/72 (79) 98 05/15/20 04:00 118 05/15/20 04:00 60 05/15/20 04:00 Mechanical Ventilator Mechanical Ventilator Mechanical Ventilator 05/15/20 03:40 121 38 60 05/15/20 03:30 118 33 93/75 (81) 100 05/15/20 03:00 123 34 85/48 (60) 100 05/15/20 02:30 116 35 94/56 (69) 100 05/15/20 02:00 129 38 96/51 (66) 99 05/15/20 01:32 123 39 50 05/15/20 01:30 120 37 97/54 (68) 97 05/15/20 01:00 132 39 103/55 (71) 94 05/15/20 00:00 99.5 131 35 93/52 (66) 94 05/15/20 00:00 Mechanical Ventilator Mechanical Ventilator Mechanical Ventilator 05/15/20 00:00 138 05/15/20 00:00 50 05/14/20 23:02 138 32 50 05/14/20 23:00 138 33 95/64 (74) 95 05/14/20 22:00 139 33 100/63 (75) 94 05/14/20 21:13 146 33 40 05/14/20 21:00 142 40 107/62 (77) 100 05/14/20 20:46 40 05/14/20 20:00 90 05/14/20 20:00 100.0 146 35 110/66 (81) 100 05/14/20 20:00 141 05/14/20 20:00 Mechanical Ventilator Mechanical Ventilator Mechanical Ventilator I&O Intake and Output 05/14/20 05/15/20 19:00 07:00 Intake Total 1032.7 ml 747.61 ml Output Total 210 ml 195 ml Balance 822.7 ml 552.61 ml IV Total 1032.7 ml 747.61 ml Output Urine Total 210 ml 95 ml Stool Total 100 ml Dressing: saturated Cardiovascular: RSR Respiratory: decreased breath sounds Abdomen: distended, non-tender, decreased bowel sounds Extremities: no tenderness, no cyanosis, other Laboratory Tests Test 05/14/20 23:36 05/15/20 04:50 05/15/20 06:02 05/15/20 08:16 POC Whole Blood Glucose 94 MG/DL (74-106) Pending White Blood Count 16.7 K/UL (4.8-10.8) #H Red Blood Count 2.21 M/UL (4.70-6.10) L Hemoglobin 7.6 G/DL (14.2-18.0) L Hematocrit 24.3 % (42.0-52.0) L Mean Corpuscular Volume 110 FL (80-99) H Mean Corpuscular Hemoglobin 34.4 PG (27.0-31.0) H Mean Corpuscular Hemoglobin Concent 31.3 G/DL (32.0-36.0) L Red Cell Distribution Width 20.1 % (11.6-14.8) H Platelet Count 22 K/UL (150-450) L Mean Platelet Volume 11.4 FL (6.5-10.1) H Neutrophils (%) (Auto) % (45.0-75.0) Lymphocytes (%) (Auto) % (20.0-45.0) Monocytes (%) (Auto) % (1.0-10.0) Eosinophils (%) (Auto) % (0.0-3.0) Basophils (%) (Auto) % (0.0-2.0) Differential Total Cells Counted 100 Neutrophils % (Manual) 78 % (45-75) H Lymphocytes % (Manual) 1 % (20-45) L Monocytes % (Manual) 1 % (1-10) Eosinophils % (Manual) 0 % (0-3) Basophils % (Manual) 1 % (0-2) Metamyelocytes % 1 % (0-0) H Band Neutrophils 18 % (0-8) H Platelet Estimate Decreased L Platelet Morphology Normal Hypochromasia 1+ Anisocytosis 3+ Macrocytosis 1+ Sodium Level 137 MMOL/L (136-145) Potassium Level 3.4 MMOL/L (3.5-5.1) L Chloride Level 107 MMOL/L (98-107) Carbon Dioxide Level 21 MMOL/L (21-32) Anion Gap 10 mmol/L (5-15) Blood Urea Nitrogen 34 mg/dL (7-18) H Creatinine 3.2 MG/DL (0.55-1.30) H Estimat Glomerular Filtration Rate 18.9 mL/min (>60) Glucose Level 98 MG/DL (74-106) Calcium Level 8.5 MG/DL (8.5-10.1) Phosphorus Level 2.5 MG/DL (2.5-4.9) Magnesium Level 1.6 MG/DL (1.8-2.4) L Arterial Blood pH 7.256 (7.350-7.450) Arterial Blood Partial Pressure CO2 44.0 mmHg (35.0-45.0) Arterial Blood Partial Pressure O2 96.6 mmHg (75.0-100.0) Arterial Blood HCO3 19.1 mmol/L (22.0-26.0) L Arterial Blood Oxygen Saturation 96.2 % (95-100) Arterial Blood Base Excess -7.5 (-2-2) L [place] Test Positive Test 05/15/20 14:01 POC Whole Blood Glucose 100 MG/DL (74-106) Plan Problems: (1) Dehydration (2) Ventilator associated pneumonia (3) AUDREY (acute kidney injury) (4) Hypokalemia (5) Hyperkalemia (6) Hypomagnesemia (7) Anemia (8) Decubitus skin ulcer Assessment & Plan: Pt presented on admission with gross contractures, Multiple Pressure Injuries, Tracheostomy. Skin Assessed under tracheal collar and no evidence of skin breakdown noted. Tear noted to urinary meatus- no exudate noted. Scrotum is erythematous with scattered satellite lesions. Large ulcer noted to R scrotal sac (L)4cm x (W)4.6cm. Base of wound is erythematous ,moist with Biofilm. Sacral DTPI with clusters of small islands of slough with surrounding maroon and indurated areas (L)8cm x (W)12cm.Mild Odor noted. Partial thickness Pressure Injury Upper/outer R buttocks(L)1.8cm x (W)1.3cm. Base of wound is moist and viable. Edges adherent to base of wound. Surrounding non-blanching erythema with scattered areas of shearing noted. Partial thickness Pressure Inferior lower R buttocks.(L)0.8cm x (W)1.2cm. Base of wound is moist and viable. Edges adherent to base of wound. Surrounding non- blanching erythema with scattered shearing noted extending into R ischial tuberosity. Clusters of small hyperpigmentation noted to L trochanteric and L ischial tuberosity. R Heel is fluctuant with scattered dry eschar and surrounding Non-Blanchable erythema.(L)6.5cm x (W)8cm. DTPI distal/lateral R foot(L)3cm x (W)3cm. Base of wound is maroon and fluctuant. dry eschar noted to tip of R 1st metatarsal with surrounding non-blanchable erythema extending dorsally and laterally of metatarsal(L)5cm x (W)1.3cm Non-Blanchable erythema that is fluctuant at base noted to dorso/lateral L 5th metatarsal(L)0.6cm x (W)0.3cm. L Heel is boggy with non-blanchable erythema laterally. Hyperpigmentation from previous wound noted at L heel. Tx.Plan: Cleanse Sacral wound with Saline. Apply TheraHoney to slough. Apply Moisture Barrier Paste periwound. Cover with Optifoam drsg. Change daily and prn. Apply Moisture Barrier Paste to Wounds R upper and lower R Buttocks. Cover each wound with Optifoam drsg. Change every 3 days and prn. Apply Zinc Oxide Paste to Scrotal Wounds TID and prn. Apply Betadine to wounds R heel and R foot . Cover with ABD Pads and wrap with Kerlix every 3 days and prn. Apply Betadine to L foot. Cover with ABD Pads and wrap with Kerlix every 3 days and prn. Cover Bony Prominences as needed with Optifoam drsgs. Reposition at least every 2hours or as tolerated. Off-load heels with pillow. APM/VIRAL Mattress DAILY ESTIMATED NEEDS: Needs based on Critical care, 63kg 22-30 kcals/kg 3015-0918 total kcals 1.25-2 g protein/kg 79-126 g total protein 25-30 mL/kg 5232-3730 total fluid mLs NUTRITION DIAGNOSIS: Swallowing difficulty r/ respiratory status as evidenced by pt is vent dep via trach, PEG dep. CURRENT TF:NPO ENTERAL NUTRITION RECOMMENDATIONS: Vital AF 1.2 @ 55ml/hr x 22 hrs to provide 1210ml, 1452kcal, 91g prot, 981ml free water - As medically able, rec Vital 1.2. Start @15ml/hr for 6 hrs, advance as tolerated 10ml/hr q4-6 hrs to goal. - Hold 1 hr before and after synthroid. - Flush per , HOB over 30 degrees - Feed w/ hemodynamic stability. ADDITIONAL RECOMMENDATIONS: 1) Obtain calibrated bed scale wts-> recent adm wt was 63kg vs 68kg today 2) Monitor renal labs and lytes, need for renal formula 3) Rec WC eval -> currently NPO 4) Monitor hemodynamic stability, ability to feed (9) SOB (shortness of breath) (10) Hypernatremia (11) Aspiration pneumonia (12) Renal insufficiency (13) Respiratory insufficiency (14) Respiratory failure (15) Malnutrition (16) Sepsis Assessment & Plan: Leukocytosis, lactic acidosis, abnormal labs. In ICU resuscitation imaging noted micro noted. 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 No definite nondilated small bowel is visualized. Degree of distention is somewhat increased from the prior CT scan. Much of the colon is gas filled, upper limits normal in caliber, with the cecum (which is in the right upper quadrant) bordering on rand distention this is similar to the previous exam. The esophagus is dilated and gas filled. There is mild esophageal wall thickening at the gastroesophageal junction; this appears similar to the previous exam. Contrast is seen within the stomach. Gastrostomy is again demonstrated. There is a small amount free intraperitoneal fluid, predominantly in the right lower quadrant mesenteric root and in the right upper quadrant. No definite free intraperitoneal gas is evident. There is a rectal tube in place. Lack of IV contrast limits assessment of the solid organs. The gallbladder is nondistended. The liver, bile ducts, pancreas, spleen, adrenals, right kidney are unremarkable. The left kidney demonstrates a lower pole cyst. The bladder demonstrates mild wall thickening. The prostate is enlarged. There is diffuse edema of the presacral fat and diffuse generalized edema of the abdominal and mesenteric fat. There are small bilateral pleural effusions. There is extensive consolidation of both lung bases, with in particular very dense consolidation occupying most of the visualized left lower lobe and right middle lobe The bones demonstrate degenerative spondylosis changes. There is a chronic fracture of the left hip, and chronic erosive changes of the left acetabulum. Chronic inflammatory soft tissue seen surrounding the left hip. There is evidence of contracture of the right hip Impression: Diffusely mildly dilated small bowel loops, overall degree of distention slightly increased from 03/09/2020. No definite transition point demonstrated; findings are probably on the basis of ileus or age-related dysmotility. There is also some dilated colon again demonstrated Evidence of anasarca, with ascites fluid, extensive edema of the subcutaneous fat, abdominal fat, as well as bilateral pleural effusions Extensive bilateral diffuse pulmonary consolidation, with particularly dense consolidation in the left lower lobe and right middle lobe. Findings most likely represent pneumonia, but could also represent pulmonary edema Dilated gas-filled esophagus, significance uncertain. Mild esophageal wall thickening at the gastroesophageal junction could indicate esophagitis. This also previously demonstrated Rectal tube in place Chronic fracture of the left hip, chronic erosive changes of the left acetabulum, and auditory soft tissue surrounding the left hip. Evidence of right hip contractures Prostatomegaly. Bladder wall thickening, may indicate chronic bladder outlet obstruction versus cystitis (29) HCAP (healthcare-associated pneumonia) (30) Suspected COVID-19 virus infection Rehan Geronimo May 15, 2020 19:16
[2020-05-15] MEDS ORDERED: NS 275ml ONE (19:36)
[2020-05-15] MEDS ORDERED: Tubing IV Secondary IV ONE (19:36)
[2020-05-15] MEDS: TPN IV SCH (20:08)
[2020-05-15] MEDS: FAT EMULSION 20% IV SCH (20:08)
[2020-05-15] MEDS: Dyna-Hex 2% Top Sol 2oz TOPIC SCH (20:08)
[2020-05-15] MEDS: Epoetin Alfa-EPBX (NON ESRD)10,000 unit/ml vial SUBQ SCH (21:03)
[2020-05-15] MEDS: Colistin for inhalation INH SCH (21:17)
[2020-05-15] MEDS ORDERED: Norepinephrine 4mg/NS Premix 250 ML ONE (22:14)
[2020-05-15] MEDS: Norepinephrine 4mg/NS Premix 250 ML IV SCH (22:54)
--- NOTE | 2020-05-15 23:47 | Cardiology Progress Note ---
Subjective On vent support Was started on IV Cardizem for rapid heart rates. BP low, and fluid challenges given. Had coffee grounds from [employer]; req'd 2 units of PRBC's 05/05. Renal function remains impaired with poor urine output; patient has HD sessions per renal. CXR (05/13)still with right infiltrate and small pl effusions. Monitor: sinus tachycardia with non-sustained atrial ectopy. Objective Last 24 Hour Vital Signs Date Time Temp Pulse Resp B/P (MAP) Pulse Ox O2 Delivery O2 Flow Rate FiO2 05/15/20 23:07 102 33 60 05/15/20 22:54 70/45 05/15/20 21:18 111 36 94 Mechanical Ventilator 60 112 39 60 05/15/20 21:00 119 30 81/46 (58) 88 05/15/20 20:00 Mechanical Ventilator Mechanical Ventilator Mechanical Ventilator 05/15/20 20:00 99.5 128 32 86/50 (62) 92 05/15/20 20:00 130 05/15/20 20:00 50 05/15/20 19:21 126 35 50 05/15/20 19:15 126 35 91/50 (64) 93 05/15/20 19:14 121 36 76/46 (56) 94 05/15/20 19:00 125 34 83/44 (57) 93 05/15/20 18:44 100.0 05/15/20 18:00 100.9 132 38 82/39 (53) 93 05/15/20 17:58 132 38 85/46 (59) 93 05/15/20 17:49 131 40 85/48 (60) 93 05/15/20 17:48 131 37 84/49 (61) 93 05/15/20 17:45 130 38 93 05/15/20 17:30 130 40 83/44 (57) 94 05/15/20 17:20 129 45 88/48 (61) 95 05/15/20 17:15 128 38 95 05/15/20 17:00 131 40 83/48 (60) 96 05/15/20 16:45 127 36 96 05/15/20 16:43 133 49 50 05/15/20 16:30 100.0 132 37 83/53 (63) 97 05/15/20 16:15 134 39 97 05/15/20 16:00 50 05/15/20 16:00 133 05/15/20 16:00 Mechanical Ventilator Mechanical Ventilator Mechanical Ventilator 05/15/20 16:00 133 38 94/51 (65) 97 05/15/20 15:45 133 40 96 05/15/20 15:30 126 35 86/50 (62) 96 05/15/20 15:18 127 42 50 05/15/20 15:15 130 42 97 05/15/20 15:09 132 40 95/50 (65) 95 05/15/20 15:06 133 40 88/42 (57) 95 05/15/20 15:04 132 36 88/50 (63) 95 05/15/20 15:00 132 37 86/46 (59) 94 05/15/20 14:30 133 37 95/55 (68) 95 05/15/20 14:00 133 40 93/51 (65) 95 05/15/20 13:30 133 40 99/50 (66) 95 05/15/20 13:14 115 31 50 05/15/20 13:00 132 39 96/57 (70) 97 05/15/20 12:30 131 35 103/54 (70) 98 05/15/20 12:00 99.4 119 30 99/54 (69) 98 05/15/20 12:00 96 05/15/20 12:00 Mechanical Ventilator Mechanical Ventilator Mechanical Ventilator 05/15/20 12:00 50 05/15/20 11:30 116 33 101/56 (71) 99 05/15/20 11:00 113 30 86/62 (70) 100 05/15/20 10:52 114 32 50 05/15/20 10:00 110 24 81/52 (62) 99 05/15/20 09:32 115 25 103/56 (72) 100 05/15/20 09:30 115 30 87/54 (65) 98 05/15/20 09:14 116 33 94/62 (73) 99 05/15/20 09:00 120 31 87/56 (66) 99 05/15/20 08:33 118 37 50 05/15/20 08:30 120 36 93/58 (70) 99 05/15/20 08:00 99.1 123 36 96/58 (71) 99 05/15/20 08:00 Mechanical Ventilator Mechanical Ventilator Mechanical Ventilator 05/15/20 08:00 50 05/15/20 08:00 120 05/15/20 07:30 120 39 107/60 (76) 99 05/15/20 07:16 116 33 50 05/15/20 07:00 118 34 97/51 (66) 99 05/15/20 06:00 118 35 104/60 (75) 98 05/15/20 05:30 117 41 100/50 (67) 98 05/15/20 05:27 121 36 50 05/15/20 05:00 123 37 107/73 (84) 99 05/15/20 04:30 122 44 83/47 (59) 98 05/15/20 04:00 99.6 119 34 94/72 (79) 98 05/15/20 04:00 118 05/15/20 04:00 60 05/15/20 04:00 Mechanical Ventilator Mechanical Ventilator Mechanical Ventilator 05/15/20 03:40 121 38 60 05/15/20 03:30 118 33 93/75 (81) 100 05/15/20 03:00 123 34 85/48 (60) 100 05/15/20 02:30 116 35 94/56 (69) 100 05/15/20 02:00 129 38 96/51 (66) 99 05/15/20 01:32 123 39 50 05/15/20 01:30 120 37 97/54 (68) 97 05/15/20 01:00 132 39 103/55 (71) 94 05/15/20 00:00 99.5 131 35 93/52 (66) 94 05/15/20 00:00 Mechanical Ventilator Mechanical Ventilator Mechanical Ventilator 05/15/20 00:00 138 05/15/20 00:00 50 ROS: no change from my admit note. HEENT: Thick Trach secretions RHYTHM: ST LUNGS: bilateral rhonchi CARDIAC: normal rate, regular rhythm, normal S1 and S2 ABDOMEN: normal bowel sounds, soft, no organomegaly, G-Tube intact EXTREMITIES: trace edema, other - obtunded Laboratory Tests Test 05/15/20 04:50 05/15/20 06:02 05/15/20 08:16 05/15/20 14:01 White Blood Count 16.7 K/UL (4.8-10.8) #H Red Blood Count 2.21 M/UL (4.70-6.10) L Hemoglobin 7.6 G/DL (14.2-18.0) L Hematocrit 24.3 % (42.0-52.0) L Mean Corpuscular Volume 110 FL (80-99) H Mean Corpuscular Hemoglobin 34.4 PG (27.0-31.0) H Mean Corpuscular Hemoglobin Concent 31.3 G/DL (32.0-36.0) L Red Cell Distribution Width 20.1 % (11.6-14.8) H Platelet Count 22 K/UL (150-450) L Mean Platelet Volume 11.4 FL (6.5-10.1) H Neutrophils (%) (Auto) % (45.0-75.0) Lymphocytes (%) (Auto) % (20.0-45.0) Monocytes (%) (Auto) % (1.0-10.0) Eosinophils (%) (Auto) % (0.0-3.0) Basophils (%) (Auto) % (0.0-2.0) Differential Total Cells Counted 100 Neutrophils % (Manual) 78 % (45-75) H Lymphocytes % (Manual) 1 % (20-45) L Monocytes % (Manual) 1 % (1-10) Eosinophils % (Manual) 0 % (0-3) Basophils % (Manual) 1 % (0-2) Metamyelocytes % 1 % (0-0) H Band Neutrophils 18 % (0-8) H Platelet Estimate Decreased L Platelet Morphology Normal Hypochromasia 1+ Anisocytosis 3+ Macrocytosis 1+ Sodium Level 137 MMOL/L (136-145) Potassium Level 3.4 MMOL/L (3.5-5.1) L Chloride Level 107 MMOL/L (98-107) Carbon Dioxide Level 21 MMOL/L (21-32) Anion Gap 10 mmol/L (5-15) Blood Urea Nitrogen 34 mg/dL (7-18) H Creatinine 3.2 MG/DL (0.55-1.30) H Estimat Glomerular Filtration Rate 18.9 mL/min (>60) Glucose Level 98 MG/DL (74-106) Calcium Level 8.5 MG/DL (8.5-10.1) Phosphorus Level 2.5 MG/DL (2.5-4.9) Magnesium Level 1.6 MG/DL (1.8-2.4) L POC Whole Blood Glucose Pending 100 MG/DL (74-106) Arterial Blood pH 7.256 (7.350-7.450) Arterial Blood Partial Pressure CO2 44.0 mmHg (35.0-45.0) Arterial Blood Partial Pressure O2 96.6 mmHg (75.0-100.0) Arterial Blood HCO3 19.1 mmol/L (22.0-26.0) L Arterial Blood Oxygen Saturation 96.2 % (95-100) Arterial Blood Base Excess -7.5 (-2-2) L [place] Test Positive Test 05/15/20 18:00 POC Whole Blood Glucose Pending Assessment/Plan Assessment/Plan Shock recurring Sepsis [facility] PNA Leukocytosis GI bleeding Anemia Hypokalemia Ventilator dep respiratory failure Severe protein calorie malnutrition Ac/chronic diastolic CHF Acute renal failure now on HD. Chronic encephalopathy Metabolic acidosis Restart pressors. Fluid challenge Vent support Antimicrobials IV thyroid replacement IVF; cautious K+ suppl with renal failure. Consider PRBC transfusion for recurrent bleeding; holding all anti-plt and anti- coagulants. DVT prophylaxis Add'l dialysis per renal IV Cardizem discontinued. Frnako Pineda MD May 15, 2020 23:47
[2020-05-16] VITALS (45 sets, daily range): BP systolic 50–109; BP diastolic 18–64
[2020-05-16] MEDS: Norepinephrine 4mg/NS Premix 250 ML IV SCH ×4 (01:18→10:07)
[2020-05-16] MEDS ORDERED: Heparin 1000 units/ml 1ml Vial INJ PRN (06:00)
[2020-05-16] MEDS ORDERED: Heparin Sod 1000 units/ml 10ml IV PRN (06:00)
[2020-05-16 07:13] LABS: BLOOD UREA NITROGEN 45 mg/dL (7-18); CALCIUM 8.8 MG/DL (8.5-10.1); CARBON DIOXIDE 23 MMOL/L (21-32); CHLORIDE 107 MMOL/L (98-107); CREATININE 3.6 MG/DL (0.55-1.30); PHOSPHORUS 3.2 MG/DL (2.5-4.9); POTASSIUM 3.5 MMOL/L (3.5-5.1); SODIUM 136 MMOL/L (136-145)
--- NOTE | 2020-05-16 08:23 | General Progress Note ---
Subjective ROS Limited/Unobtainable: No Constitutional: Reports: malaise, weakness HEENT: Reports: no symptoms Cardiovascular: Reports: no symptoms Respiratory: Reports: cough, shortness of breath, sputum Gastrointestinal/Abdominal: Reports: difficulty swallowing Genitourinary: Reports: no symptoms Neurologic/Psychiatric: Reports: pre-existing deficit, seizure Endocrine: Reports: no symptoms Hematologic/Lymphatic: Reports: anemia Allergies: Coded Allergies: No Known Allergies (Unverified , 02/23/12) All Systems: reviewed and negative except above Subjective doing poorly. now hypotensive on high dose pressors. +sob. no uop. poorly responsive. Objective Last 24 Hour Vital Signs Date Time Temp Pulse Resp B/P (MAP) Pulse Ox O2 Delivery O2 Flow Rate FiO2 05/16/20 07:13 75/56 05/16/20 06:45 103 35 83/51 (62) 92 05/16/20 06:30 105 41 81/51 (61) 93 05/16/20 06:15 106 41 79/50 (60) 94 05/16/20 05:30 105 31 91/52 (65) 96 05/16/20 05:15 105 36 105/52 (69) 92 05/16/20 05:00 104 26 87/54 (65) 93 05/16/20 04:54 105 39 100 05/16/20 04:50 100 28 91/55 (67) 92 05/16/20 04:46 87/53 05/16/20 04:45 99 31 62/47 (52) 92 05/16/20 04:30 101 33 87/54 (65) 96 05/16/20 04:15 99 34 83/44 (57) 97 05/16/20 04:00 50 05/16/20 04:00 Mechanical Ventilator Mechanical Ventilator Mechanical Ventilator 05/16/20 04:00 98.0 99 35 79/47 (58) 98 05/16/20 04:00 118 05/16/20 03:45 104 31 87/54 (65) 94 05/16/20 03:30 105 33 89/48 (62) 81 05/16/20 03:15 106 32 71/49 (56) 82 05/16/20 03:02 108 32 100 05/16/20 03:00 101 23 90/55 (67) 84 05/16/20 02:45 102 24 85/54 (64) 84 05/16/20 02:30 103 23 88/53 (65) 85 05/16/20 02:15 101 26 89/51 (64) 87 05/16/20 02:00 103 22 85/50 (62) 88 05/16/20 01:45 103 20 86/51 (63) 88 05/16/20 01:30 110 24 80/52 (61) 88 05/16/20 01:18 105/56 05/16/20 01:15 109 35 74/50 (58) 88 05/16/20 01:00 112 39 97/57 (70) 90 05/16/20 00:47 109 39 60 05/16/20 00:45 106 32 105/64 (78) 93 05/16/20 00:30 108 35 106/59 (75) 93 05/16/20 00:15 110 26 109/57 (74) 93 05/16/20 00:00 99.0 110 17 109/61 (77) 93 05/16/20 00:00 50 05/16/20 00:00 Mechanical Ventilator Mechanical Ventilator Mechanical Ventilator 05/16/20 00:00 110 05/15/20 23:45 110 29 106/60 (75) 93 05/15/20 23:30 105 22 106/57 (73) 94 05/15/20 23:15 104 30 101/59 (73) 95 05/15/20 23:07 102 33 60 05/15/20 23:00 97 29 92/54 (67) 92 05/15/20 22:54 70/45 05/15/20 22:45 108 32 70/45 (53) 89 05/15/20 22:30 116 34 105/54 (71) 89 05/15/20 22:15 113 30 100/54 (69) 88 05/15/20 22:00 107 31 94/48 (63) 88 05/15/20 21:45 109 34 90/56 (67) 89 05/15/20 21:30 118 16 86/54 (65) 98 05/15/20 21:18 111 36 94 Mechanical Ventilator 60 112 39 60 05/15/20 21:15 112 32 84/45 (58) 86 05/15/20 21:00 86/40 (55) 05/15/20 21:00 119 30 81/46 (58) 88 05/15/20 20:00 Mechanical Ventilator Mechanical Ventilator Mechanical Ventilator 05/15/20 20:00 99.5 128 32 86/50 (62) 92 20 20:00 130 20 20:00 50 05/15/20 19:21 126 35 50 05/15/20 19:15 126 35 91/50 (64) 93 05/15/20 19:14 121 36 76/46 (56) 94 05/15/20 19:00 125 34 83/44 (57) 93 05/15/20 18:44 100.0 05/15/20 18:00 100.9 132 38 82/39 (53) 93 05/15/20 17:58 132 38 85/46 (59) 93 05/15/20 17:49 131 40 85/48 (60) 93 05/15/20 17:48 131 37 84/49 (61) 93 05/15/20 17:45 130 38 93 05/15/20 17:30 130 40 83/44 (57) 94 05/15/20 17:20 129 45 88/48 (61) 95 05/15/20 17:15 128 38 95 05/15/20 17:00 131 40 83/48 (60) 96 05/15/20 16:45 127 36 96 05/15/20 16:43 133 49 50 05/15/20 16:30 100.0 132 37 83/53 (63) 97 05/15/20 16:15 134 39 97 05/15/20 16:00 50 05/15/20 16:00 133 05/15/20 16:00 Mechanical Ventilator Mechanical Ventilator Mechanical Ventilator 05/15/20 16:00 133 38 94/51 (65) 97 05/15/20 15:45 133 40 96 05/15/20 15:30 126 35 86/50 (62) 96 05/15/20 15:18 127 42 50 05/15/20 15:15 130 42 97 05/15/20 15:09 132 40 95/50 (65) 95 05/15/20 15:06 133 40 88/42 (57) 95 05/15/20 15:04 132 36 88/50 (63) 95 05/15/20 15:00 132 37 86/46 (59) 94 05/15/20 14:30 133 37 95/55 (68) 95 05/15/20 14:00 133 40 93/51 (65) 95 05/15/20 13:30 133 40 99/50 (66) 95 05/15/20 13:14 115 31 50 05/15/20 13:00 132 39 96/57 (70) 97 05/15/20 12:30 131 35 103/54 (70) 98 05/15/20 12:00 99.4 119 30 99/54 (69) 98 05/15/20 12:00 96 05/15/20 12:00 Mechanical Ventilator Mechanical Ventilator Mechanical Ventilator 05/15/20 12:00 50 05/15/20 11:30 116 33 101/56 (71) 99 05/15/20 11:00 113 30 86/62 (70) 100 05/15/20 10:52 114 32 50 05/15/20 10:00 110 24 81/52 (62) 99 05/15/20 09:32 115 25 103/56 (72) 100 05/15/20 09:30 115 30 87/54 (65) 98 05/15/20 09:14 116 33 94/62 (73) 99 05/15/20 09:00 120 31 87/56 (66) 99 05/15/20 08:33 118 37 50 05/15/20 08:30 120 36 93/58 (70) 99 Intake and Output 05/15/20 05/16/20 19:00 07:00 Intake Total 1300 ml 1327.5 ml Output Total 70 ml 65 ml Balance 1230 ml 1262.5 ml IV Total 1300 ml 1327.5 ml Output Urine Total 15 ml 65 ml Stool Total 50 ml Gastric Drainage Total 5 ml # Bowel Movements 50 Laboratory Tests 05/15/20 14:01: POC Whole Blood Glucose 100 05/15/20 18:00: POC Whole Blood Glucose [Pending] 05/16/20 05:30: Sodium Level 136, Potassium Level 3.5, Chloride Level 107, Carbon Dioxide Level 23, Blood Urea Nitrogen 45H, Creatinine 3.6H, Estimat Glomerular Filtration Rate 16.5, Glucose Level 90, Calcium Level 8.8, Phosphorus Level 3.2, Magnesium Level 2.1 Height (Feet): 5 Height (Inches): 7.00 Weight (Pounds): 150 Objective General Appearance: WD/WN, lethargic, confused EENT: PERRL/EOMI, normal ENT inspection Neck: normal alignment, supple Cardiovascular: normal rate Respiratory/Chest: chest wall non-tender, lungs clear, crackles/rales, rhonchi - bilaterally Abdomen: normal bowel sounds, non tender, soft, no organomegaly Edema: no edema noted Arm (L), no edema noted Arm (R) Neurologic: disoriented, unresponsive, aphasia Skin: normal pigmentation Assessment/Plan Problem List: (1) Dehydration ICD Codes: E86.0 - Dehydration SNOMED: 71865497 (2) Ventilator associated pneumonia ICD Codes: J95.851 - Ventilator associated pneumonia SNOMED: 431862641, 50133397 (3) AUDREY (acute kidney injury) ICD Codes: N17.9 - Acute kidney failure, unspecified SNOMED: 1419885, 49075797 (4) Anemia ICD Codes: D64.9 - Anemia, unspecified SNOMED: 320398111, 354586159 (5) HCAP (healthcare-associated pneumonia) ICD Codes: J18.9 - Pneumonia, unspecified organism SNOMED: 569215494, 456268537 (6) CKD (chronic kidney disease) stage 3, GFR 30-59 ml/min ICD Codes: N18.3 - Chronic kidney disease, stage 3 (moderate) SNOMED: 296437441 (7) GIB (gastrointestinal bleeding) ICD Codes: K92.2 - Gastrointestinal hemorrhage, unspecified SNOMED: 80114056 (8) ARF (acute renal failure) ICD Codes: N17.9 - Acute kidney failure, unspecified SNOMED: 09458378, 353172650 (9) Pneumonia ICD Codes: J18.9 - Pneumonia, unspecified organism SNOMED: 962996014 (10) UTI (urinary tract infection) ICD Codes: N39.0 - Urinary tract infection, site not specified SNOMED: 62196253, 353610872 (11) Sepsis ICD Codes: A41.9 - Sepsis, unspecified organism SNOMED: 15461599 (12) Respiratory failure ICD Codes: J96.90 - Respiratory failure, unspecified, unspecified whether with hypoxia or hypercapnia SNOMED: 444859416 Status: stable, not improved Assessment/Plan: iv pressors as needed ivf and albumin as needed vent support resp rx suctioning as needed iv abx per id sz rx wound care critical and guarded very poor prognosis Jimi Tellez MD May 16, 2020 08:23
[2020-05-16] MEDS ORDERED: Phenylephrine 100 MG in NS 240 ML IV SCH (08:30)
--- NOTE | 2020-05-16 08:43 | Critical Care Progress Note ---
Assessment/Plan Assessment/Plan IMPRESSION: Respiratory failure chronic, chronic encephalopathy, sepsis, leukocytosis, G-tube, aspiration, acute on chronic renal failure, electrolyte abnormality, failure to thrive, severe protein-calorie malnutrition, chronic CO2 retention; Hypoxemia, worsening acidemia, tachypnea and tachycardia RECOMMENDATIONS: hyperventilate; on pressors; TPN as per Renal; Supportive care. IV antibiotics and adjust and discuss. Respiratory support and vent management and try to keep ph >7.25 and oxygen worsening, monitor acid base and hyperventilate mcfp medications. Monitor clinically. Prognosis is overall poor for meaningful recovery but still full code. on HD and UF as able renal ID cardiology; await further recommendations and stabilization remains critical and significantly worse at this point medications/laboratory data/nursing notes/ICU care reviewed in detail note reviewed and edited care discussed with RN and RT ICU time spent >40 minutes Critical Care - Subjective Interval Events: doing poorly hypotensive hypoxemic obtunded ROS Limited/Unobtainable: Yes Condition: critical I&O: Intake and Output 05/15/20 05/16/20 19:00 07:00 Intake Total 1300 ml 1327.5 ml Output Total 70 ml 65 ml Balance 1230 ml 1262.5 ml IV Total 1300 ml 1327.5 ml Output Urine Total 15 ml 65 ml Stool Total 50 ml Gastric Drainage Total 5 ml # Bowel Movements 50 Critical Care - Objective Last 24 Hour Vital Signs Date Time Temp Pulse Resp B/P (MAP) Pulse Ox O2 Delivery O2 Flow Rate FiO2 05/16/20 07:13 75/56 05/16/20 06:45 103 35 83/51 (62) 92 05/16/20 06:30 105 41 81/51 (61) 93 05/16/20 06:15 106 41 79/50 (60) 94 05/16/20 05:30 105 31 91/52 (65) 96 05/16/20 05:15 105 36 105/52 (69) 92 05/16/20 05:00 104 26 87/54 (65) 93 05/16/20 04:54 105 39 100 05/16/20 04:50 100 28 91/55 (67) 92 05/16/20 04:46 87/53 05/16/20 04:45 99 31 62/47 (52) 92 05/16/20 04:30 101 33 87/54 (65) 96 05/16/20 04:15 99 34 83/44 (57) 97 05/16/20 04:00 50 05/16/20 04:00 Mechanical Ventilator Mechanical Ventilator Mechanical Ventilator 05/16/20 04:00 98.0 99 35 79/47 (58) 98 05/16/20 04:00 118 05/16/20 03:45 104 31 87/54 (65) 94 05/16/20 03:30 105 33 89/48 (62) 81 05/16/20 03:15 106 32 71/49 (56) 82 05/16/20 03:02 108 32 100 05/16/20 03:00 101 23 90/55 (67) 84 05/16/20 02:45 102 24 85/54 (64) 84 05/16/20 02:30 103 23 88/53 (65) 85 05/16/20 02:15 101 26 89/51 (64) 87 05/16/20 02:00 103 22 85/50 (62) 88 05/16/20 01:45 103 20 86/51 (63) 88 05/16/20 01:30 110 24 80/52 (61) 88 05/16/20 01:18 105/56 05/16/20 01:15 109 35 74/50 (58) 88 05/16/20 01:00 112 39 97/57 (70) 90 05/16/20 00:47 109 39 60 05/16/20 00:45 106 32 105/64 (78) 93 05/16/20 00:30 108 35 106/59 (75) 93 05/16/20 00:15 110 26 109/57 (74) 93 05/16/20 00:00 99.0 110 17 109/61 (77) 93 05/16/20 00:00 50 05/16/20 00:00 Mechanical Ventilator Mechanical Ventilator Mechanical Ventilator 05/16/20 00:00 110 05/15/20 23:45 110 29 106/60 (75) 93 05/15/20 23:30 105 22 106/57 (73) 94 05/15/20 23:15 104 30 101/59 (73) 95 05/15/20 23:07 102 33 60 05/15/20 23:00 97 29 92/54 (67) 92 05/15/20 22:54 70/45 05/15/20 22:45 108 32 70/45 (53) 89 05/15/20 22:30 116 34 105/54 (71) 89 05/15/20 22:15 113 30 100/54 (69) 88 05/15/20 22:00 107 31 94/48 (63) 88 05/15/20 21:45 109 34 90/56 (67) 89 05/15/20 21:30 118 16 86/54 (65) 98 05/15/20 21:18 111 36 94 Mechanical Ventilator 60 112 39 60 05/15/20 21:15 112 32 84/45 (58) 86 05/15/20 21:00 86/40 (55) 05/15/20 21:00 119 30 81/46 (58) 88 05/15/20 20:00 Mechanical Ventilator Mechanical Ventilator Mechanical Ventilator 05/15/20 20:00 99.5 128 32 86/50 (62) 92 05/15/20 20:00 130 05/15/20 20:00 50 05/15/20 19:21 126 35 50 05/15/20 19:15 126 35 91/50 (64) 93 05/15/20 19:14 121 36 76/46 (56) 94 05/15/20 19:00 125 34 83/44 (57) 93 05/15/20 18:44 100.0 05/15/20 18:00 100.9 132 38 82/39 (53) 93 05/15/20 17:58 132 38 85/46 (59) 93 05/15/20 17:49 131 40 85/48 (60) 93 05/15/20 17:48 131 37 84/49 (61) 93 05/15/20 17:45 130 38 93 05/15/20 17:30 130 40 83/44 (57) 94 05/15/20 17:20 129 45 88/48 (61) 95 05/15/20 17:15 128 38 95 05/15/20 17:00 131 40 83/48 (60) 96 05/15/20 16:45 127 36 96 05/15/20 16:43 133 49 50 05/15/20 16:30 100.0 132 37 83/53 (63) 97 05/15/20 16:15 134 39 97 05/15/20 16:00 50 05/15/20 16:00 133 05/15/20 16:00 Mechanical Ventilator Mechanical Ventilator Mechanical Ventilator 05/15/20 16:00 133 38 94/51 (65) 97 05/15/20 15:45 133 40 96 05/15/20 15:30 126 35 86/50 (62) 96 05/15/20 15:18 127 42 50 05/15/20 15:15 130 42 97 05/15/20 15:09 132 40 95/50 (65) 95 05/15/20 15:06 133 40 88/42 (57) 95 05/15/20 15:04 132 36 88/50 (63) 95 05/15/20 15:00 132 37 86/46 (59) 94 05/15/20 14:30 133 37 95/55 (68) 95 05/15/20 14:00 133 40 93/51 (65) 95 05/15/20 13:30 133 40 99/50 (66) 95 05/15/20 13:14 115 31 50 05/15/20 13:00 132 39 96/57 (70) 97 05/15/20 12:30 131 35 103/54 (70) 98 05/15/20 12:00 99.4 119 30 99/54 (69) 98 05/15/20 12:00 96 05/15/20 12:00 Mechanical Ventilator Mechanical Ventilator Mechanical Ventilator 05/15/20 12:00 50 05/15/20 11:30 116 33 101/56 (71) 99 05/15/20 11:00 113 30 86/62 (70) 100 05/15/20 10:52 114 32 50 05/15/20 10:00 110 24 81/52 (62) 99 05/15/20 09:32 115 25 103/56 (72) 100 05/15/20 09:30 115 30 87/54 (65) 98 05/15/20 09:14 116 33 94/62 (73) 99 05/15/20 09:00 120 31 87/56 (66) 99 Objective: WDWN NAD chronically ill reduced breath sounds with scattered rhonchi [id number] tachy without MRG hypoactive GT no CCE significant contractures nonfocal obtunded trach in place Vent skin noted Micro: Microbiology Date/Time Source Procedure Growth Status 05/15/20 13:55 Blood Blood Culture - Preliminary Yeast Species Resulted Accucheck: 88 Mansoor Martinez MD May 16, 2020 08:43
[2020-05-16] MEDS: levETIRAcetam 750 MG in D5W 95 ML IV SCH (09:38)
[2020-05-16] MEDS: Pantoprazole Inj IVP SCH (09:39)
[2020-05-16] MEDS ORDERED: Calcium Chloride 10% 10ml carpuject IVP ONE (10:36)
[2020-05-16] MEDS ORDERED: Sodium Bicarbonate 8.4% 50ml Inj ONE (10:36)
[2020-05-16] MEDS ORDERED: NS 500ML ONE (10:36)
[2020-05-16] MEDS ORDERED: Amiodarone 150mg/3ml Amp ONE (10:36)
[2020-05-16 10:37] LABS: HEMATOCRIT 26.6 % (42.0-52.0); MEAN CORPUSCULAR VOLUME 113 FL (80-99); PLATELET COUNT 10 K/UL (150-450); RED BLOOD COUNT 2.35 M/UL (4.70-6.10); RED CELL DISTRIBUTION WIDTH 20.8 % (11.6-14.8); WHITE BLOOD COUNT 10.8 K/UL (4.8-10.8)
[2020-05-16] MEDS: Colistin for inhalation INH SCH (11:09)
--- NOTE | 2020-05-16 11:14 | Infectious Diseases Prog Note ---
"Assessment/Plan Assessment/Plan antibiotics : inhaled colistin A 1. klebsiella | acenitobacter pneumonia 2. MRSA | coag neg staph sepsis s/p rx 3. renal failure 4. respiratory failure 5. seizures 6. CVA 7. CHF 8. leucocytosis improving 9. thrombocytopenia 10. shock 11 fungemia P 1. d/c inhaled colistin 2. start micafungin 3. start bactrim, minocycline 4. will follow up cultures 5. consider catheter changes Subjective ROS Limited/Unobtainable: Yes Allergies: Coded Allergies: No Known Allergies (Unverified , 02/23/12) Objective Last 24 Hour Vital Signs Date Time Temp Pulse Resp B/P (MAP) Pulse Ox O2 Delivery O2 Flow Rate FiO2 05/16/20 10:07 74/48 05/16/20 09:38 102 77/45 05/16/20 07:13 75/56 05/16/20 06:45 103 35 83/51 (62) 92 05/16/20 06:30 105 41 81/51 (61) 93 05/16/20 06:15 106 41 79/50 (60) 94 05/16/20 05:30 105 31 91/52 (65) 96 05/16/20 05:15 105 36 105/52 (69) 92 05/16/20 05:00 104 26 87/54 (65) 93 05/16/20 04:54 105 39 100 05/16/20 04:50 100 28 91/55 (67) 92 05/16/20 04:46 87/53 05/16/20 04:45 99 31 62/47 (52) 92 05/16/20 04:30 101 33 87/54 (65) 96 05/16/20 04:15 99 34 83/44 (57) 97 05/16/20 04:00 50 05/16/20 04:00 Mechanical Ventilator Mechanical Ventilator Mechanical Ventilator 05/16/20 04:00 98.0 99 35 79/47 (58) 98 05/16/20 04:00 118 05/16/20 03:45 104 31 87/54 (65) 94 05/16/20 03:30 105 33 89/48 (62) 81 05/16/20 03:15 106 32 71/49 (56) 82 05/16/20 03:02 108 32 100 05/16/20 03:00 101 23 90/55 (67) 84 05/16/20 02:45 102 24 85/54 (64) 84 05/16/20 02:30 103 23 88/53 (65) 85 05/16/20 02:15 101 26 89/51 (64) 87 05/16/20 02:00 103 22 85/50 (62) 88 05/16/20 01:45 103 20 86/51 (63) 88 05/16/20 01:30 110 24 80/52 (61) 88 05/16/20 01:18 105/56 05/16/20 01:15 109 35 74/50 (58) 88 05/16/20 01:00 112 39 97/57 (70) 90 05/16/20 00:47 109 39 60 05/16/20 00:45 106 32 105/64 (78) 93 05/16/20 00:30 108 35 106/59 (75) 93 05/16/20 00:15 110 26 109/57 (74) 93 05/16/20 00:00 99.0 110 17 109/61 (77) 93 05/16/20 00:00 50 05/16/20 00:00 Mechanical Ventilator Mechanical Ventilator Mechanical Ventilator 05/16/20 00:00 110 05/15/20 23:45 110 29 106/60 (75) 93 05/15/20 23:30 105 22 106/57 (73) 94 05/15/20 23:15 104 30 101/59 (73) 95 05/15/20 23:07 102 33 60 05/15/20 23:00 97 29 92/54 (67) 92 05/15/20 22:54 70/45 05/15/20 22:45 108 32 70/45 (53) 89 05/15/20 22:30 116 34 105/54 (71) 89 05/15/20 22:15 113 30 100/54 (69) 88 05/15/20 22:00 107 31 94/48 (63) 88 05/15/20 21:45 109 34 90/56 (67) 89 05/15/20 21:30 118 16 86/54 (65) 98 05/15/20 21:18 111 36 94 Mechanical Ventilator 60 112 39 60 05/15/20 21:15 112 32 84/45 (58) 86 05/15/20 21:00 86/40 (55) 05/15/20 21:00 119 30 81/46 (58) 88 05/15/20 20:00 Mechanical Ventilator Mechanical Ventilator Mechanical Ventilator 05/15/20 20:00 99.5 128 32 86/50 (62) 92 20 20:00 130 05/15/20 20:00 50 05/15/20 19:21 126 35 50 05/15/20 19:15 126 35 91/50 (64) 93 05/15/20 19:14 121 36 76/46 (56) 94 05/15/20 19:00 125 34 83/44 (57) 93 05/15/20 18:44 100.0 05/15/20 18:00 100.9 132 38 82/39 (53) 93 05/15/20 17:58 132 38 85/46 (59) 93 05/15/20 17:49 131 40 85/48 (60) 93 05/15/20 17:48 131 37 84/49 (61) 93 05/15/20 17:45 130 38 93 05/15/20 17:30 130 40 83/44 (57) 94 05/15/20 17:20 129 45 88/48 (61) 95 05/15/20 17:15 128 38 95 05/15/20 17:00 131 40 83/48 (60) 96 05/15/20 16:45 127 36 96 05/15/20 16:43 133 49 50 05/15/20 16:30 100.0 132 37 83/53 (63) 97 05/15/20 16:15 134 39 97 05/15/20 16:00 50 05/15/20 16:00 133 05/15/20 16:00 Mechanical Ventilator Mechanical Ventilator Mechanical Ventilator 05/15/20 16:00 133 38 94/51 (65) 97 05/15/20 15:45 133 40 96 05/15/20 15:30 126 35 86/50 (62) 96 05/15/20 15:18 127 42 50 05/15/20 15:15 130 42 97 05/15/20 15:09 132 40 95/50 (65) 95 05/15/20 15:06 133 40 88/42 (57) 95 05/15/20 15:04 132 36 88/50 (63) 95 05/15/20 15:00 132 37 86/46 (59) 94 05/15/20 14:30 133 37 95/55 (68) 95 05/15/20 14:00 133 40 93/51 (65) 95 05/15/20 13:30 133 40 99/50 (66) 95 05/15/20 13:14 115 31 50 05/15/20 13:00 132 39 96/57 (70) 97 05/15/20 12:30 131 35 103/54 (70) 98 05/15/20 12:00 99.4 119 30 99/54 (69) 98 05/15/20 12:00 96 05/15/20 12:00 Mechanical Ventilator Mechanical Ventilator Mechanical Ventilator 05/15/20 12:00 50 05/15/20 11:30 116 33 101/56 (71) 99 Height (Feet): 5 Height (Inches): 7.00 Weight (Pounds): 150 HEENT: status post trach Respiratory/Chest: lungs clear Cardiovascular: normal rate, regular rhythm, no gallop/murmur Abdomen: soft, non tender, other - GT Extremities: other - + edema, right IJ catheter Microbiology Date/Time Source Procedure Growth Status 05/15/20 13:55 Blood Blood Culture - Preliminary Yeast Species Resulted Laboratory Tests Test 05/15/20 14:01 05/15/20 18:00 05/16/20 05:30 POC Whole Blood Glucose 100 MG/DL (74-106) Pending White Blood Count 10.8 K/UL (4.8-10.8) Red Blood Count 2.35 M/UL (4.70-6.10) L Hemoglobin 8.0 G/DL (14.2-18.0) L Hematocrit 26.6 % (42.0-52.0) L Mean Corpuscular Volume 113 FL (80-99) H Mean Corpuscular Hemoglobin 33.9 PG (27.0-31.0) H Mean Corpuscular Hemoglobin Concent 29.9 G/DL (32.0-36.0) L Red Cell Distribution Width 20.8 % (11.6-14.8) H Platelet Count 10 K/UL (150-450) #L Mean Platelet Volume 14.2 FL (6.5-10.1) H Neutrophils (%) (Auto) % (45.0-75.0) Lymphocytes (%) (Auto) % (20.0-45.0) Monocytes (%) (Auto) % (1.0-10.0) Eosinophils (%) (Auto) % (0.0-3.0) Basophils (%) (Auto) % (0.0-2.0) Neutrophils % (Manual) Pending Lymphocytes % (Manual) Pending Platelet Estimate Pending Platelet Morphology Pending Sodium Level 136 MMOL/L (136-145) Potassium Level 3.5 MMOL/L (3.5-5.1) Chloride Level 107 MMOL/L (98-107) Carbon Dioxide Level 23 MMOL/L (21-32) Blood Urea Nitrogen 45 mg/dL (7-18) H Creatinine 3.6 MG/DL (0.55-1.30) H Estimat Glomerular Filtration Rate 16.5 mL/min (>60) Glucose Level 90 MG/DL (74-106) Calcium Level 8.8 MG/DL (8.5-10.1) Phosphorus Level 3.2 MG/DL (2.5-4.9) Magnesium Level 2.1 MG/DL (1.8-2.4) Current Medications Medications (Trade) Dose Ordered Sig/Lanny Route PRN Reason Start Time Stop Time Status Last Admin Dose Admin Acetaminophen (Tylenol) 650 mg Q4H PRN NG fever pain 05/03/20 21:30 06/02/20 21:29 05/15/20 18:14 Chlorhexidine Gluconate (Kayla-Hex 2%) 1 applic DAILY@1999 TOPIC 05/04/20 20:00 08/02/20 19:59 05/15/20 20:08 Clonidine HCl (Catapres Tab) 0.1 mg Q4H PRN GT SBP above 150 05/03/20 21:30 08/01/20 21:29 Colistimethate Sodium (Colistin *inhalation use only*) 75 mg Q12HR@10,22 INH 05/15/20 22:00 05/22/20 21:59 05/15/20 21:17 Dextrose 1,000 ml @ 0 mls/hr Q24H PRN IV PN interrupted or unavailable 05/12/20 12:15 06/11/20 12:14 Dextrose (Dextrose 50%) 25 ml Q30M PRN IV Hypoglycemia 05/12/20 11:30 08/10/20 11:29 Dextrose (Dextrose 50%) 50 ml Q30M PRN IV Hypoglycemia 05/12/20 11:30 08/10/20 11:29 Epinephrine (EPINEPHrine Syringe) 1 mg STAT IV 05/16/20 10:45 05/16/20 11:45 Epoetin Asaf (Epoetin Asaf-EPBX(NON ESRD)) 10,000 unit FRI-FRI-FRI SUBQ 05/05/20 21:00 08/03/20 20:59 05/15/20 21:03 Fat Emulsion Intravenous 192 ml/Amino Acids/ Electrolytes/ Dextrose 1,200 ml @ 50 mls/hr Q24H IV 05/12/20 20:00 08/10/20 19:59 05/15/20 20:08 Heparin Sodium (Porcine) (Heparin Sod 1000 units/ml 10ml) 2,000 unit ONCE PRN IV HD 05/16/20 06:00 05/16/20 23:59 Heparin Sodium (Porcine) (Heparin) 1,000 unit POSTHD PRN INJ POST HD 05/16/20 06:00 05/16/20 23:59 Levetiracetam 750 mg/Dextrose 102.5 ml @ 440 mls/hr Q12HR IV 05/08/20 21:00 06/07/20 20:59 05/16/20 09:38 Levothyroxine Sodium (Synthroid) 100 mcg DAILY IV 05/05/20 09:00 06/03/20 10:59 05/16/20 09:39 Lorazepam (Ativan 2mg/ml 1ml) 1 mg Q4H PRN IV For Seizures 05/14/20 14:30 05/21/20 14:29 05/14/20 14:44 Norepinephrine Bitartrate 250 ml @ 0 mls/hr Q24H IV 05/15/20 22:45 05/18/20 22:39 05/16/20 10:07 Pantoprazole (Protonix) 40 mg EVERY 12 HOURS IVP 05/04/20 21:00 06/03/20 20:59 05/16/20 09:39 Phenylephrine HCl 100 mg/Sodium Chloride 250 ml @ 0 mls/hr Q24H IV 05/16/20 08:30 05/19/20 08:29 05/16/20 09:38 Phytonadione (Vitamin K) 10 mg QWEEK SUBQ 05/12/20 21:00 08/10/20 20:59 05/12/20 20:13 Sodium Chloride 1,000 ml @ 500 mls/hr Q2H PRN IVLG sbp<90 during hd 05/16/20 06:00 05/16/20 23:59 Vasopressin 100 units/Sodium Chloride 100 ml @ 0 mls/hr Q24H IV 05/16/20 11:20 05/19/20 11:19 Isaak Hair MD May 16, 2020 11:14"
[2020-05-16] MEDS ORDERED: Vasopressin 100 UNITS in NS 95 ML IV SCH (11:20)
[2020-05-16] MEDS ORDERED: Micafungin 100 MG in NS 110 ML IVPB SCH (12:00)
[2020-05-16] MEDS ORDERED: Bactrim SS Tab GT SCH (13:00)
[2020-05-16] MEDS ORDERED: Bactrim Susp 20ml GT SCH (13:00)
[2020-05-16] MEDS ORDERED: Minocycline HCl 50mg cap ORAL SCH (13:00)
--- NOTE | 2020-05-16 14:10 | Emergency Room Report ---
History of Present Illness General Chief Complaint: Dyspnea/Respdistress Source: Medical Record, PMD Present Illness Allergies: Coded Allergies: No Known Allergies (Unverified , 02/23/12) COVID-19 Screening Contact w/high risk pt: Yes Recent Travel to affected area: No Experienced COVID-19 symptoms?: No COVID-19 symptoms experienced: Shortness of Breath COVID-19 Testing performed [employer]: Yes COVID-19 Screening: Negative COVID-19 COVID-19 Testing Source: 04/27/2020 @ [facility] Nursing Documentation-PMH Past Medical History: No History, Except For Hx Cardiac Problems: Yes - a fib, heart failure, [place] Hx Hypertension: Yes Hx Diabetes: Yes Hx Cancer: No Hx Cerebrovascular Accident: Yes Hx Epilepsy: Yes Physical Exam Vital Signs Date Time Temp Pulse Resp B/P (MAP) Pulse Ox O2 Delivery O2 Flow Rate FiO2 05/12/20 07:00 90 32 135/81 (99) 99 05/12/20 08:00 40 05/12/20 08:00 Mechanical Ventilator Mechanical Ventilator Mechanical Ventilator 05/12/20 08:00 97.6 Medical Decision Making Diagnostic Impression: Primary Impression: Ventilator associated pneumonia Additional Impressions: AUDREY (acute kidney injury) Dehydration ER Course I was called to the ICU for CODE BLUE. When I arrived CPR was already in progress. ACLS was performed for approximately 15 minutes. Multiple doses of epinephrine and bicarb were given. At each pulse check the patient was pulseless with asystole on the monitor. Patient was declared . Last Vital Signs Date Time Temp Pulse Resp B/P (MAP) Pulse Ox O2 Delivery O2 Flow Rate FiO2 05/16/20 11:25 101 29 77/48 (58) 70 05/16/20 11:10 100 05/16/20 09:09 Mechanical Ventilator 05/16/20 08:00 97.4 Disposition: ADMITTED INPATIENT Condition: Critical Referrals: Mansoor Martinez MD (PCP) Danny Vitale M.D. May 16, 2020 14:10
--- NOTE | 2020-05-16 15:31 | Surgery Progress Note ---
Surgery Progress Note Subjective Procedure Performed Left femoral temporary hemodialysis catheter insertion Additional Comments Late entry as time of this note patient is already . Patient continued deteriorated overnight after being seen yesterday evening. Labs worsening exam worsening hypotensive and cardiovascular compromise Objective Last 24 Hour Vital Signs Date Time Temp Pulse Resp B/P (MAP) Pulse Ox O2 Delivery O2 Flow Rate FiO2 05/16/20 11:25 101 29 77/48 (58) 70 05/16/20 11:15 106 30 50/18 (29) 66 05/16/20 11:10 110 43 100 05/16/20 11:00 112 30 63/47 (52) 70 05/16/20 10:45 116 27 70/53 (59) 71 05/16/20 10:30 125 29 82/56 (65) 77 05/16/20 10:28 122 29 82/50 (61) 70 05/16/20 10:24 98 30 67/50 (56) 68 05/16/20 10:15 69 30 51/36 (41) 05/16/20 10:07 74/48 05/16/20 10:00 94 29 74/48 (57) 74 05/16/20 09:45 95 34 77/54 (62) 77 05/16/20 09:38 102 77/45 05/16/20 09:30 99 38 73/50 (58) 84 05/16/20 09:15 100 38 83/54 (64) 83 05/16/20 09:09 93 40 74 Mechanical Ventilator 100 118 42 100 05/16/20 09:00 101 34 75/48 (57) 84 05/16/20 08:56 101 24 70/49 (56) 85 05/16/20 08:45 102 36 82/46 (58) 85 05/16/20 08:30 102 40 74/45 (55) 85 05/16/20 08:15 102 35 79/48 (58) 86 05/16/20 08:00 97.4 102 35 79/49 (59) 87 05/16/20 08:00 103 05/16/20 08:00 Mechanical Ventilator Mechanical Ventilator Mechanical Ventilator 05/16/20 08:00 100 05/16/20 07:13 75/56 05/16/20 07:11 94 39 100 05/16/20 06:45 103 35 83/51 (62) 92 05/16/20 06:30 105 41 81/51 (61) 93 05/16/20 06:15 106 41 79/50 (60) 94 05/16/20 05:30 105 31 91/52 (65) 96 05/16/20 05:15 105 36 105/52 (69) 92 05/16/20 05:00 104 26 87/54 (65) 93 05/16/20 04:54 105 39 100 05/16/20 04:50 100 28 91/55 (67) 92 05/16/20 04:46 87/53 05/16/20 04:45 99 31 62/47 (52) 92 05/16/20 04:30 101 33 87/54 (65) 96 05/16/20 04:15 99 34 83/44 (57) 97 05/16/20 04:00 50 05/16/20 04:00 Mechanical Ventilator Mechanical Ventilator Mechanical Ventilator 05/16/20 04:00 98.0 99 35 79/47 (58) 98 05/16/20 04:00 118 05/16/20 03:45 104 31 87/54 (65) 94 05/16/20 03:30 105 33 89/48 (62) 81 05/16/20 03:15 106 32 71/49 (56) 82 05/16/20 03:02 108 32 100 05/16/20 03:00 101 23 90/55 (67) 84 05/16/20 02:45 102 24 85/54 (64) 84 05/16/20 02:30 103 23 88/53 (65) 85 05/16/20 02:15 101 26 89/51 (64) 87 05/16/20 02:00 103 22 85/50 (62) 88 05/16/20 01:45 103 20 86/51 (63) 88 05/16/20 01:30 110 24 80/52 (61) 88 05/16/20 01:18 105/56 05/16/20 01:15 109 35 74/50 (58) 88 05/16/20 01:00 112 39 97/57 (70) 90 05/16/20 00:47 109 39 60 05/16/20 00:45 106 32 105/64 (78) 93 05/16/20 00:30 108 35 106/59 (75) 93 05/16/20 00:15 110 26 109/57 (74) 93 05/16/20 00:00 99.0 110 17 109/61 (77) 93 05/16/20 00:00 50 05/16/20 00:00 Mechanical Ventilator Mechanical Ventilator Mechanical Ventilator 05/16/20 00:00 110 05/15/20 23:45 110 29 106/60 (75) 93 05/15/20 23:30 105 22 106/57 (73) 94 05/15/20 23:15 104 30 101/59 (73) 95 05/15/20 23:07 102 33 60 05/15/20 23:00 97 29 92/54 (67) 92 05/15/20 22:54 70/45 05/15/20 22:45 108 32 70/45 (53) 89 05/15/20 22:30 116 34 105/54 (71) 89 05/15/20 22:15 113 30 100/54 (69) 88 05/15/20 22:00 107 31 94/48 (63) 88 05/15/20 21:45 109 34 90/56 (67) 89 05/15/20 21:30 118 16 86/54 (65) 98 05/15/20 21:18 111 36 94 Mechanical Ventilator 60 112 39 60 05/15/20 21:15 112 32 84/45 (58) 86 05/15/20 21:00 86/40 (55) 05/15/20 21:00 119 30 81/46 (58) 88 05/15/20 20:00 Mechanical Ventilator Mechanical Ventilator Mechanical Ventilator 05/15/20 20:00 99.5 128 32 86/50 (62) 92 05/15/20 20:00 130 05/15/20 20:00 50 05/15/20 19:21 126 35 50 05/15/20 19:15 126 35 91/50 (64) 93 05/15/20 19:14 121 36 76/46 (56) 94 05/15/20 19:00 125 34 83/44 (57) 93 05/15/20 18:44 100.0 05/15/20 18:00 100.9 132 38 82/39 (53) 93 05/15/20 17:58 132 38 85/46 (59) 93 05/15/20 17:49 131 40 85/48 (60) 93 05/15/20 17:48 131 37 84/49 (61) 93 05/15/20 17:45 130 38 93 05/15/20 17:30 130 40 83/44 (57) 94 05/15/20 17:20 129 45 88/48 (61) 95 05/15/20 17:15 128 38 95 05/15/20 17:00 131 40 83/48 (60) 96 05/15/20 16:45 127 36 96 05/15/20 16:43 133 49 50 05/15/20 16:30 100.0 132 37 83/53 (63) 97 05/15/20 16:15 134 39 97 05/15/20 16:00 50 05/15/20 16:00 133 05/15/20 16:00 Mechanical Ventilator Mechanical Ventilator Mechanical Ventilator 05/15/20 16:00 133 38 94/51 (65) 97 05/15/20 15:45 133 40 96 I&O Intake and Output 05/15/20 05/16/20 19:00 07:00 Intake Total 1300 ml 1327.5 ml Output Total 70 ml 65 ml Balance 1230 ml 1262.5 ml IV Total 1300 ml 1327.5 ml Output Urine Total 15 ml 65 ml Stool Total 50 ml Gastric Drainage Total 5 ml # Bowel Movements 50 Dressing: other Wound: other Drains: other Cardiovascular: other Respiratory: other Abdomen: other Extremities: other Laboratory Tests Test 05/15/20 18:00 05/16/20 05:30 POC Whole Blood Glucose Pending White Blood Count 10.8 K/UL (4.8-10.8) Red Blood Count 2.35 M/UL (4.70-6.10) L Hemoglobin 8.0 G/DL (14.2-18.0) L Hematocrit 26.6 % (42.0-52.0) L Mean Corpuscular Volume 113 FL (80-99) H Mean Corpuscular Hemoglobin 33.9 PG (27.0-31.0) H Mean Corpuscular Hemoglobin Concent 29.9 G/DL (32.0-36.0) L Red Cell Distribution Width 20.8 % (11.6-14.8) H Platelet Count 10 K/UL (150-450) #L Mean Platelet Volume 14.2 FL (6.5-10.1) H Neutrophils (%) (Auto) % (45.0-75.0) Lymphocytes (%) (Auto) % (20.0-45.0) Monocytes (%) (Auto) % (1.0-10.0) Eosinophils (%) (Auto) % (0.0-3.0) Basophils (%) (Auto) % (0.0-2.0) Differential Total Cells Counted 100 Neutrophils % (Manual) 88 % (45-75) H Lymphocytes % (Manual) 3 % (20-45) L Monocytes % (Manual) 2 % (1-10) Eosinophils % (Manual) 0 % (0-3) Basophils % (Manual) 0 % (0-2) Band Neutrophils 7 % (0-8) Platelet Estimate Decreased L Platelet Morphology Normal Hypochromasia 1+ Anisocytosis 2+ Macrocytosis 2+ Sodium Level 136 MMOL/L (136-145) Potassium Level 3.5 MMOL/L (3.5-5.1) Chloride Level 107 MMOL/L (98-107) Carbon Dioxide Level 23 MMOL/L (21-32) Blood Urea Nitrogen 45 mg/dL (7-18) H Creatinine 3.6 MG/DL (0.55-1.30) H Estimat Glomerular Filtration Rate 16.5 mL/min (>60) Glucose Level 90 MG/DL (74-106) Calcium Level 8.8 MG/DL (8.5-10.1) Phosphorus Level 3.2 MG/DL (2.5-4.9) Magnesium Level 2.1 MG/DL (1.8-2.4) Plan Problems: (1) Dehydration (2) Ventilator associated pneumonia (3) AUDREY (acute kidney injury) (4) Hypokalemia (5) Hyperkalemia (6) Hypomagnesemia (7) Anemia (8) Decubitus skin ulcer Assessment & Plan: Pt presented on admission with gross contractures, Multiple Pressure Injuries, Tracheostomy. Skin Assessed under tracheal collar and no evidence of skin breakdown noted. Tear noted to urinary meatus- no exudate noted. Scrotum is erythematous with scattered satellite lesions. Large ulcer noted to R scrotal sac (L)4cm x (W)4.6cm. Base of wound is erythematous ,moist with Biofilm. Sacral DTPI with clusters of small islands of slough with surrounding maroon and indurated areas (L)8cm x (W)12cm.Mild Odor noted. Partial thickness Pressure Injury Upper/outer R buttocks(L)1.8cm x (W)1.3cm. Base of wound is moist and viable. Edges adherent to base of wound. Surrounding non-blanching erythema with scattered areas of shearing noted. Partial thickness Pressure Inferior lower R buttocks.(L)0.8cm x (W)1.2cm. Base of wound is moist and viable. Edges adherent to base of wound. Surrounding non- blanching erythema with scattered shearing noted extending into R ischial tuberosity. Clusters of small hyperpigmentation noted to L trochanteric and L ischial tuberosity. R Heel is fluctuant with scattered dry eschar and surrounding Non-Blanchable erythema.(L)6.5cm x (W)8cm. DTPI distal/lateral R foot(L)3cm x (W)3cm. Base of wound is maroon and flu ctuant. dry eschar noted to tip of R 1st metatarsal with surrounding non-blanchable erythema extending dorsally and laterally of metatarsal(L)5cm x (W)1.3cm Non-Blanchable erythema that is fluctuant at base noted to dorso/lateral L 5th metatarsal(L)0.6cm x (W)0.3cm. L Heel is boggy with non-blanchable erythema laterally. Hyperpigmentation from previous wound noted at L heel. Tx.Plan: Cleanse Sacral wound with Saline. Apply TheraHoney to slough. Apply Moisture Barrier Paste periwound. Cover with Optifoam drsg. Change daily and prn. Apply Moisture Barrier Paste to Wounds R upper and lower R Buttocks. Cover each wound with Optifoam drsg. Change every 3 days and prn. Apply Zinc Oxide Paste to Scrotal Wounds TID and prn. Apply Betadine to wounds R heel and R foot . Cover with ABD Pads and wrap with Kerlix every 3 days and prn. Apply Betadine to L foot. Cover with ABD Pads and wrap with Kerlix every 3 days and prn. Cover Bony Prominences as needed with Optifoam drsgs. Reposition at least every 2hours or as tolerated. Off-load heels with pillow. APM/VIRAL Mattress DAILY ESTIMATED NEEDS: Needs based on Critical care, 63kg 22-30 kcals/kg 9510-7105 total kcals 1.25-2 g protein/kg 79-126 g total protein 25-30 mL/kg 6503-3729 total fluid mLs NUTRITION DIAGNOSIS: Swallowing difficulty r/ respiratory status as evidenced by pt is vent dep via trach, PEG dep. CURRENT TF:NPO ENTERAL NUTRITION RECOMMENDATIONS: Vital AF 1.2 @ 55ml/hr x 22 hrs to provide 1210ml, 1452kcal, 91g prot, 981ml free water - As medically able, rec Vital 1.2. Start @15ml/hr for 6 hrs, advance as tolerated 10ml/hr q4-6 hrs to goal. - Hold 1 hr before and after synthroid. - Flush per , HOB over 30 degrees - Feed w/ hemodynamic stability. ADDITIONAL RECOMMENDATIONS: 1) Obtain calibrated bed scale wts-> recent adm wt was 63kg vs 68kg today 2) Monitor renal labs and lytes, need for renal formula 3) Rec WC eval -> currently NPO 4) Monitor hemodynamic stability, ability to feed (9) SOB (shortness of breath) (10) Hypernatremia (11) Aspiration pneumonia (12) Renal insufficiency (13) Respiratory insufficiency (14) Respiratory failure (15) Malnutrition (16) Sepsis Assessment & Plan: Leukocytosis, lactic acidosis, abnormal labs. In ICU resuscitation imaging noted micro noted. 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 No definite nondilated small bowel is visualized. Degree of distention is somewhat increased from the prior CT scan. Much of the colon is gas filled, upper limits normal in caliber, with the cecum (which is in the right upper quadrant) bordering on rand distention this is similar to the previous exam. The esophagus is dilated and gas filled. There is mild esophageal wall thickening at the gastroesophageal junction; this appears similar to the previous exam. Contrast is seen within the stomach. Gastrostomy is again demonstrated. There is a small amount free intraperitoneal fluid, predominantly in the right lower quadrant mesenteric root and in the right upper quadrant. No definite free intraperitoneal gas is evident. There is a rectal tube in place. Lack of IV contrast limits assessment of the solid organs. The gallbladder is nondistended. The liver, bile ducts, pancreas, spleen, adrenals, right kidney are unremarkable. The left kidney demonstrates a lower pole cyst. The bladder demonstrates mild wall thickening. The prostate is enlarged. There is diffuse edema of the presacral fat and diffuse generalized edema of the abdominal and mesenteric fat. There are small bilateral pleural effusions. There is extensive consolidation of both lung bases, with in particular very dense consolidation occupying most of the visualized left lower lobe and right middle lobe The bones demonstrate degenerative spondylosis changes. There is a chronic fracture of the left hip, and chronic erosive changes of the left acetabulum. Chronic inflammatory soft tissue seen surrounding the left hip. There is evidence of contracture of the right hip Impression: Diffusely mildly dilated small bowel loops, overall degree of distention slightly increased from 03/09/2020. No definite transition point demonstrated; findings are probably on the basis of ileus or age-related dysmotility. There is also some dilated colon again demonstrated Evidence of anasarca, with ascites fluid, extensive edema of the subcutaneous fat, abdominal fat, as well as bilateral pleural effusions Extensive bilateral diffuse pulmonary consolidation, with particularly dense consolidation in the left lower lobe and right middle lobe. Findings most likely represent pneumonia, but could also represent pulmonary edema Dilated gas-filled esophagus, significance uncertain. Mild esophageal wall thickening at the gastroesophageal junction could indicate esophagitis. This also previously demonstrated Rectal tube in place Chronic fracture of the left hip, chronic erosive changes of the left acetabulum, and auditory soft tissue surrounding the left hip. Evidence of right hip contractures Prostatomegaly. Bladder wall thickening, may indicate chronic bladder outlet obstruction versus cystitis (29) HCAP (healthcare-associated pneumonia) (30) Suspected COVID-19 virus infection Additional Comments patient has passed Rehan Geronimo May 16, 2020 15:31
--- NOTE | 2020-05-16 20:22 | General Progress Note ---
Subjective Allergies: Coded Allergies: No Known Allergies (Unverified , 02/23/12) Subjective Above noted seen in ICU this am d/w RN at bedside patient hypotensive pressor at max rate Objective Last 24 Hour Vital Signs Date Time Temp Pulse Resp B/P (MAP) Pulse Ox O2 Delivery O2 Flow Rate FiO2 05/16/20 11:25 101 29 77/48 (58) 70 05/16/20 11:15 106 30 50/18 (29) 66 05/16/20 11:10 110 43 100 05/16/20 11:00 112 30 63/47 (52) 70 05/16/20 10:45 116 27 70/53 (59) 71 05/16/20 10:30 125 29 82/56 (65) 77 05/16/20 10:28 122 29 82/50 (61) 70 05/16/20 10:24 98 30 67/50 (56) 68 05/16/20 10:15 69 30 51/36 (41) 05/16/20 10:07 74/48 05/16/20 10:00 94 29 74/48 (57) 74 05/16/20 09:45 95 34 77/54 (62) 77 05/16/20 09:38 102 77/45 05/16/20 09:30 99 38 73/50 (58) 84 05/16/20 09:15 100 38 83/54 (64) 83 05/16/20 09:09 93 40 74 Mechanical Ventilator 100 118 42 100 05/16/20 09:00 101 34 75/48 (57) 84 05/16/20 08:56 101 24 70/49 (56) 85 05/16/20 08:45 102 36 82/46 (58) 85 05/16/20 08:30 102 40 74/45 (55) 85 05/16/20 08:15 102 35 79/48 (58) 86 05/16/20 08:00 97.4 102 35 79/49 (59) 87 05/16/20 08:00 103 05/16/20 08:00 Mechanical Ventilator Mechanical Ventilator Mechanical Ventilator 05/16/20 08:00 100 05/16/20 07:13 75/56 05/16/20 07:11 94 39 100 05/16/20 06:45 103 35 83/51 (62) 92 05/16/20 06:30 105 41 81/51 (61) 93 05/16/20 06:15 106 41 79/50 (60) 94 05/16/20 05:30 105 31 91/52 (65) 96 05/16/20 05:15 105 36 105/52 (69) 92 05/16/20 05:00 104 26 87/54 (65) 93 05/16/20 04:54 105 39 100 05/16/20 04:50 100 28 91/55 (67) 92 05/16/20 04:46 87/53 05/16/20 04:45 99 31 62/47 (52) 92 05/16/20 04:30 101 33 87/54 (65) 96 05/16/20 04:15 99 34 83/44 (57) 97 05/16/20 04:00 50 05/16/20 04:00 Mechanical Ventilator Mechanical Ventilator Mechanical Ventilator 05/16/20 04:00 98.0 99 35 79/47 (58) 98 05/16/20 04:00 118 05/16/20 03:45 104 31 87/54 (65) 94 05/16/20 03:30 105 33 89/48 (62) 81 05/16/20 03:15 106 32 71/49 (56) 82 05/16/20 03:02 108 32 100 05/16/20 03:00 101 23 90/55 (67) 84 05/16/20 02:45 102 24 85/54 (64) 84 05/16/20 02:30 103 23 88/53 (65) 85 05/16/20 02:15 101 26 89/51 (64) 87 05/16/20 02:00 103 22 85/50 (62) 88 05/16/20 01:45 103 20 86/51 (63) 88 05/16/20 01:30 110 24 80/52 (61) 88 05/16/20 01:18 105/56 05/16/20 01:15 109 35 74/50 (58) 88 05/16/20 01:00 112 39 97/57 (70) 90 05/16/20 00:47 109 39 60 05/16/20 00:45 106 32 105/64 (78) 93 05/16/20 00:30 108 35 106/59 (75) 93 11/17/20 00:15 110 26 109/57 (74) 93 05/16/20 00:00 99.0 110 17 109/61 (77) 93 05/16/20 00:00 50 05/16/20 00:00 Mechanical Ventilator Mechanical Ventilator Mechanical Ventilator 05/16/20 00:00 110 05/15/20 23:45 110 29 106/60 (75) 93 05/15/20 23:30 105 22 106/57 (73) 94 05/15/20 23:15 104 30 101/59 (73) 95 05/15/20 23:07 102 33 60 05/15/20 23:00 97 29 92/54 (67) 92 05/15/20 22:54 70/45 05/15/20 22:45 108 32 70/45 (53) 89 05/15/20 22:30 116 34 105/54 (71) 89 05/15/20 22:15 113 30 100/54 (69) 88 05/15/20 22:00 107 31 94/48 (63) 88 05/15/20 21:45 109 34 90/56 (67) 89 05/15/20 21:30 118 16 86/54 (65) 98 05/15/20 21:18 111 36 94 Mechanical Ventilator 60 112 39 60 05/15/20 21:15 112 32 84/45 (58) 86 05/15/20 21:00 86/40 (55) 05/15/20 21:00 119 30 81/46 (58) 88 Intake and Output 05/15/20 05/16/20 19:00 07:00 Intake Total 1300 ml 1327.5 ml Output Total 70 ml 65 ml Balance 1230 ml 1262.5 ml IV Total 1300 ml 1327.5 ml Output Urine Total 15 ml 65 ml Stool Total 50 ml Gastric Drainage Total 5 ml # Bowel Movements 50 Laboratory Tests 05/16/20 05:30: White Blood Count 10.8, Red Blood Count 2.35L, Hemoglobin 8.0L, Hematocrit 26.6L , Mean Corpuscular Volume 113H, Mean Corpuscular Hemoglobin 33.9H, Mean Corpuscular Hemoglobin Concent 29.9L, Red Cell Distribution Width 20.8H, Platelet Count 10#L, Mean Platelet Volume 14.2H, Neutrophils (%) (Auto) , Lymphocytes (%) (Auto) , Monocytes (%) (Auto) , Eosinophils (%) (Auto) , Basophils (%) (Auto) , Differential Total Cells Counted 100, Neutrophils % (Manual) 88H, Lymphocytes % (Manual) 3L, Monocytes % (Manual) 2, Eosinophils % (Manual) 0, Basophils % (Manual) 0, Band Neutrophils 7, Platelet Estimate DecreasedL, Platelet Morphology Normal, Hypochromasia 1+, Anisocytosis 2+, Macrocytosis 2+, Sodium Level 136, Potassium Level 3.5, Chloride Level 107, Carbon Dioxide Level 23, Blood Urea Nitrogen 45H, Creatinine 3.6H, Estimat Glomerular Filtration Rate 16.5, Glucose Level 90, Calcium Level 8.8, Phosphorus Level 3.2, Magnesium Level 2.1 Height (Feet): 5 Height (Inches): 7.00 Weight (Pounds): 150 Objective NCAT (+) trach Coarse BS RR, Tachy abd (+) GT, distended (++) contracted (+) edema Assessment/Plan Status: stable, not improved Assessment/Plan: Assessment - Upper GI bleed - resolved - hypotensive / Tachy - abd distention / ileus - h/o gastric ulcer - anemia - renal failure - resp failure - contractures - Poor prognosis Recommendations - Pressors / drips / supportive care - TPN - rectal tube decompression - NGT --> LIS - monitor H&H - IV PPI - transfuse PRN - Terminal course expected lCive Kuo MD May 16, 2020 20:22
--- NOTE | 2020-05-17 00:21 | Cardiology Progress Note ---
Subjective DATE OF SERVICE: May 16, 2020 Seen at 0930am On vent support Remains hypotensive on high dose pressor support Had coffee grounds from GTube; req'd 2 units of PRBC's 05/05. No new GI bleeding noted. Renal function remains impaired with poor urine output. CXR (05/13)still with right infiltrate and small pl effusions. Monitor: sinus tachycardia with non-sustained atrial ectopy. Objective Last 24 Hour Vital Signs Date Time Temp Pulse Resp B/P (MAP) Pulse Ox O2 Delivery O2 Flow Rate FiO2 05/16/20 11:25 101 29 77/48 (58) 70 05/16/20 11:15 106 30 50/18 (29) 66 05/16/20 11:10 110 43 100 05/16/20 11:00 112 30 63/47 (52) 70 05/16/20 10:45 116 27 70/53 (59) 71 05/16/20 10:30 125 29 82/56 (65) 77 05/16/20 10:28 122 29 82/50 (61) 70 05/16/20 10:24 98 30 67/50 (56) 68 05/16/20 10:15 69 30 51/36 (41) 05/16/20 10:07 74/48 05/16/20 10:00 94 29 74/48 (57) 74 05/16/20 09:45 95 34 77/54 (62) 77 05/16/20 09:38 102 77/45 05/16/20 09:30 99 38 73/50 (58) 84 05/16/20 09:15 100 38 83/54 (64) 83 05/16/20 09:09 93 40 74 Mechanical Ventilator 100 118 42 100 05/16/20 09:00 101 34 75/48 (57) 84 05/16/20 08:56 101 24 70/49 (56) 85 05/16/20 08:45 102 36 82/46 (58) 85 05/16/20 08:30 102 40 74/45 (55) 85 05/16/20 08:15 102 35 79/48 (58) 86 05/16/20 08:00 97.4 102 35 79/49 (59) 87 05/16/20 08:00 103 05/16/20 08:00 Mechanical Ventilator Mechanical Ventilator Mechanical Ventilator 05/16/20 08:00 100 11/17/20 07:13 75/56 05/16/20 07:11 94 39 100 05/16/20 06:45 103 35 83/51 (62) 92 05/16/20 06:30 105 41 81/51 (61) 93 05/16/20 06:15 106 41 79/50 (60) 94 05/16/20 05:30 105 31 91/52 (65) 96 05/16/20 05:15 105 36 105/52 (69) 92 05/16/20 05:00 104 26 87/54 (65) 93 05/16/20 04:54 105 39 100 05/16/20 04:50 100 28 91/55 (67) 92 05/16/20 04:46 87/53 05/16/20 04:45 99 31 62/47 (52) 92 05/16/20 04:30 101 33 87/54 (65) 96 05/16/20 04:15 99 34 83/44 (57) 97 05/16/20 04:00 50 05/16/20 04:00 Mechanical Ventilator Mechanical Ventilator Mechanical Ventilator 05/16/20 04:00 98.0 99 35 79/47 (58) 98 05/16/20 04:00 118 05/16/20 03:45 104 31 87/54 (65) 94 05/16/20 03:30 105 33 89/48 (62) 81 05/16/20 03:15 106 32 71/49 (56) 82 05/16/20 03:02 108 32 100 05/16/20 03:00 101 23 90/55 (67) 84 05/16/20 02:45 102 24 85/54 (64) 84 05/16/20 02:30 103 23 88/53 (65) 85 05/16/20 02:15 101 26 89/51 (64) 87 05/16/20 02:00 103 22 85/50 (62) 88 05/16/20 01:45 103 20 86/51 (63) 88 05/16/20 01:30 110 24 80/52 (61) 88 05/16/20 01:18 105/56 05/16/20 01:15 109 35 74/50 (58) 88 05/16/20 01:00 112 39 97/57 (70) 90 05/16/20 00:47 109 39 60 05/16/20 00:45 106 32 105/64 (78) 93 05/16/20 00:30 108 35 106/59 (75) 93 ROS: no change from my admit note. HEENT: Thick Trach secretions RHYTHM: ST LUNGS: bilateral rhonchi CARDIAC: normal rate, regular rhythm, normal S1 and S2 ABDOMEN: normal bowel sounds, soft, no organomegaly, G-Tube intact EXTREMITIES: trace edema, other - obtunded Laboratory Tests Test 05/16/20 05:30 White Blood Count 10.8 K/UL (4.8-10.8) Red Blood Count 2.35 M/UL (4.70-6.10) L Hemoglobin 8.0 G/DL (14.2-18.0) L Hematocrit 26.6 % (42.0-52.0) L Mean Corpuscular Volume 113 FL (80-99) H Mean Corpuscular Hemoglobin 33.9 PG (27.0-31.0) H Mean Corpuscular Hemoglobin Concent 29.9 G/DL (32.0-36.0) L Red Cell Distribution Width 20.8 % (11.6-14.8) H Platelet Count 10 K/UL (150-450) #L Mean Platelet Volume 14.2 FL (6.5-10.1) H Neutrophils (%) (Auto) % (45.0-75.0) Lymphocytes (%) (Auto) % (20.0-45.0) Monocytes (%) (Auto) % (1.0-10.0) Eosinophils (%) (Auto) % (0.0-3.0) Basophils (%) (Auto) % (0.0-2.0) Differential Total Cells Counted 100 Neutrophils % (Manual) 88 % (45-75) H Lymphocytes % (Manual) 3 % (20-45) L Monocytes % (Manual) 2 % (1-10) Eosinophils % (Manual) 0 % (0-3) Basophils % (Manual) 0 % (0-2) Band Neutrophils 7 % (0-8) Platelet Estimate Decreased L Platelet Morphology Normal Hypochromasia 1+ Anisocytosis 2+ Macrocytosis 2+ Sodium Level 136 MMOL/L (136-145) Potassium Level 3.5 MMOL/L (3.5-5.1) Chloride Level 107 MMOL/L (98-107) Carbon Dioxide Level 23 MMOL/L (21-32) Blood Urea Nitrogen 45 mg/dL (7-18) H Creatinine 3.6 MG/DL (0.55-1.30) H Estimat Glomerular Filtration Rate 16.5 mL/min (>60) Glucose Level 90 MG/DL (74-106) Calcium Level 8.8 MG/DL (8.5-10.1) Phosphorus Level 3.2 MG/DL (2.5-4.9) Magnesium Level 2.1 MG/DL (1.8-2.4) Microbiology Date/Time Source Procedure Growth Status 05/15/20 13:55 Blood Blood Culture - Preliminary Yeast Species Resulted Assessment/Plan Assessment/Plan Shock persisting Severe sepsis [facility] PNA Leukocytosis GI bleeding Anemia Hypokalemia Ventilator dep respiratory failure Severe protein calorie malnutrition Ac/chronic diastolic CHF Acute renal failure now on HD. Chronic encephalopathy Metabolic acidosis CRITICAL AND GRAVE Continue pressors. Fluid challenges Vent support Antimicrobials IV thyroid replacement DVT prophylaxis Franko Pineda MD May 17, 2020 00:21
--- NOTE | 2020-05-17 16:33 | Discharge Summary ---
Discharge Summary Discharge Summary _ SUMMARY DATE OF ADMISSION: 05/03/2020 DATE OF DISCHARGE: [] 05/16/2020 REASON FOR ADMISSION: [] 80 years old male with past medical history of chronic respiratory failure, congestive heart failure, dysphagia, stroke, seizure disorder, anemia, chronic kidney disease with transfer from the [facility] facility due to shortness of breath. Upon evaluation emergency room patient was found to be hypoxic. He was placed on high Nonrebreather mask. He was placed on 100% FiO2 laboratory work-up revealed significant leukocytosis WBC 23 creatinine 4.2. Chest x-ray revealed bilateral pneumonia. Troponin 0 0.159 BUN 120, creatinine 3.8. Potassium 3 hemoglobin 9.4. Rapid COVID-19 was negative. Emergency department septic work-up initiated patient also started on Levophed drip due to being very hypotensive patient subsequently admitted to intensive care unit for further management CONSULTANTS: baker paint neurologist pulmonary Dr. Juan Covarrubias ID specialist Dr. Hair GI specialist Dr. Mckeon house rn Dr. Maldonado tip cementer/oncologist surgery Dr. Geronimo psychiatrist HOSPITAL COURSE: [] Patient need to ICU. Patient started on aggressive fluid resuscitation and broad-spectrum antibiotics. Ventilator support pulmonary toilet provided. Patient was follow-up with a chest x-ray and ABG settings titrated based on the ABG result patient was on potassium was replaced. DVT and GI prophylaxis provid ed. Blood culture revealed MRSA and coag negative staph. Sputum culture revealed Klebsiella pneumonia Carbapenem resistant. Stool for C. difficile was negative. Repeated blood culture on 1110 was negative but blood culture on 1116 showed yeast. Urine culture repeated on 1113 revealed Acinetobacter MDR and XL pneumonia Carbapenem resistant. Antibiotic regimen. Patient was follow-up with ABG and chest x-ray. Settings titrated based ABG. Echocardiogram demonstrated preserved ejection fraction of 60%. Mild left ventricular hypertrophy. No evidence of wall motion abnormality. Remote Control Assembler followed. Troponin repeat remain the elevated mildly elevated. Volumes were closely monitored. Patient initially was on IV fluid. Pressor provided to keep mean arterial blood pressure and and taper to mean to keep mean arterial blood pressure above 65. All antiplatelet and anticoagulation were hold given recurrent bleeding. 2 units of packed red blood cells and 1 unit of fresh frozen plasma. Patient had a coffee-ground emesis from G-tube. Renal function remained remained poor and urine output was low. Trading Assistant followed. Renal parameters remote remained poor patient started on hemodialysis after conservator agree. Surgeon placed left femoral temporary hemodialysis catheter electrolytes corrected as needed. Volume and renal parameters were closely monitored. Care Attendant closely followed. Respiratory support and ventilator management provided tried in attempt to keep pH above 7.25 acid base balance closely monitor respiratory support provided pulmonary toilet provided CT of the abdomen pelvis revealed diffusely dilated small bowel loops several degrees no definite transition point demonstrated findings probably on the basis of ileus or age-related dysmotility. Evidence of anasarca. Extensive bilateral diffuse pulmonary consolidation with particularly dense consolidation in the left lower lobe and right middle lobe. Dilated gas-filled esophagus. Rectal tube in place. Bladder wall thickening possibly chronic bladder outlet obstruction versus cystitis. Prostatomegaly. Patient started on TPN. Emergency room physician changes trach from 8-9 size as per director of retention recommendation. Patient had very distended abdomen. Feeding was stopped G-tube started to intermittent suction. Patient continued to be on pressors overall condition was poor patient exhibited multiple organ failure patient started on dialysis initially was only on Levophed and then started on phenylephrine and vasopressin. Code was called on 1116 ACLS protocol initiated. Unfortunately despite multiple all resuscitative efforts fail patient remained in asystole. Patient was pronounced at 11:47 AM on 1116. Cause of cardiopulmonary arrest FINAL DIAGNOSES: 1. [] Septic shock Severe sepsis with MRSA/coag negative staph sepsis vitals posttreatment Fungemia Multiorgan failure with a oliguric acute renal failure healthcare associated pneumonia Acute on chronic respiratory failure End-stage renal disease superimposed on chronic kidney disease requiring initiation of hemodialysis Encephalopathy Ileus Klebsiella/Acinetobacter pneumonia Chronic encephalopathy Metabolic acidosis Ventilator dependent tracheostomy status Seizure disorder Possible GI bleeding Azotemia Acute on chronic renal failure Electrolyte imbalance Aspiration Severe protein calorie malnutrition Chronic CO2 retention Hypoxemia Anemia of chronic kidney disease Hypothyroidism Possible NH Severe protein calorie malnutrition Patient feeding by G-tube I have been assigned to dictate discharge summary for this account. I was not involved in the patient's management. Carina Clemente NP May 17, 2020 16:33
== END 2020-05-16 10:37 | disposition expired | DRG 870 ==
LOC: EDBD 13:46 → EMR 13:58 → 2W 14:58 → EDBEDREQ 16:08 → 2W 05-04 00:38 → ICU 05-04 02:47
PROC: 5A1955Z Respiratory Ventilation, Greater than 96 Consecutive Hours (ICD-10-PCS; principal; 2020-05-03)
PROC: 05HM33Z Insertion of Infusion Device into Right Internal Jugular Vein, Percutaneous Approach (ICD-10-PCS; 2020-05-04)
PROC: 06HN33Z Insertion of Infusion Device into Left Femoral Vein, Percutaneous Approach (ICD-10-PCS; 2020-05-05)
PROC: 5A1D70Z Performance of Urinary Filtration, Intermittent, Less than 6 Hours Per Day (ICD-10-PCS; 2020-05-05)
PROC: 0B21XFZ Change Tracheostomy Device in Trachea, External Approach (ICD-10-PCS; 2020-05-10)
PROC: 5A12012 Performance of Cardiac Output, Single, Manual (ICD-10-PCS; 2020-05-16)
DX: A41.02 Sepsis due to Methicillin resistant Staphylococcus aureus (principal); E43 Unspecified severe protein-calorie malnutrition; I50.33 Acute on chronic diastolic (congestive) heart failure; R65.21 Severe sepsis with septic shock; J15.0 Pneumonia due to Klebsiella pneumoniae; J96.21 Acute and chronic respiratory failure with hypoxia; I21.9 Acute myocardial infarction, unspecified; J95.851 Ventilator associated pneumonia; N17.9 Acute kidney failure, unspecified; I13.0 Hypertensive heart and chronic kidney disease with heart failure and stage 1 through stage 4 chronic kidney disease, or unspecified chronic kidney disease; K92.2 Gastrointestinal hemorrhage, unspecified; Z99.11 Dependence on respirator [ventilator] status; G93.40 Encephalopathy, unspecified; K56.7 Ileus, unspecified; E86.0 Dehydration; Z68.23 Body mass index [BMI] 23.0-23.9, adult; N18.30 Chronic kidney disease, stage 3 unspecified; G40.909 Epilepsy, unspecified, not intractable, without status epilepticus; D63.1 Anemia in chronic kidney disease; Z93.0 Tracheostomy status; Z93.1 Gastrostomy status; E87.6 Hypokalemia; Z74.01 Bed confinement status; F03.90 Unspecified dementia, unspecified severity, without behavioral disturbance, psychotic disturbance, mood disturbance, and anxiety; E11.22 Type 2 diabetes mellitus with diabetic chronic kidney disease; N18.9 Chronic kidney disease, unspecified; E86.1 Hypovolemia; E87.5 Hyperkalemia; E83.42 Hypomagnesemia; L89.156 Pressure-induced deep tissue damage of sacral region; Z20.828 Contact with and (suspected) exposure to other viral communicable diseases; E03.9 Hypothyroidism, unspecified; R62.7 Adult failure to thrive; D69.6 Thrombocytopenia, unspecified; K25.9 Gastric ulcer, unspecified as acute or chronic, without hemorrhage or perforation
CPT/HCPCS: 36415; 71045; 74018; 74176; 76700; 80048; 80053; 80202; 82550; 82553; 82803; 82962; 83605; 83735; 83880; 84100; 84443; 84484; 85007; 85025; 85610; 85730; 86706; 86850; 86900; 86901; 86920; 86927; 87040; 87070; 87081; 87181; 87205; 87324; 92950; 93005; 93306; 94002; 94003; 94664; 96361; 96365; 96368; 99291; J0171; J2370; J7030; J8499; U0002